=== PATIENT | male | born 1985 | race Caucasian/White ===

== ENCOUNTER 2022-11-27 09:01 | Emergency (ER) | payer BC, SELFPAY ==
[2022-11-27 09:09] VITALS: BP 149/100; PULSE 88; RESP 16; TEMP 36.3; O2SAT 100
--- NOTE | 2022-11-27 10:06 | ED.EXTPRO ---
HPI - Extremity Problem General Chief complaint: Extremity Problem,Nontraumatic Stated complaint: left wrist/thumb popping History of Present Illness HPI Narrative: Pt is a 37 y/o male, presents to with left wrist pain along the lateral aspect (radial side) for the past week, worse with movements, specifically when flexing the wrist or grasping with the left hand. He denies injuries but does endorse repetitive movements at work and home. He feels the area pops at times. He has iced the area without much relief. He denies any other associated symptoms, traumatic injuries or fevers. He has no hx of gout. He is right hand dominant. Related Data Home Medications Medication Instructions Recorded Confirmed amlodipine 5 mg tablet mg 11/27/22 atorvastatin 40 mg tablet mg 11/27/22 metformin 1,000 mg tablet mg 11/27/22 Allergies Allergy/AdvReac Type Severity Reaction Status Date / Time morphine Allergy Unknown SEIZURE Verified 01/29/19 09:18 Review of Systems Musculoskeletal: Comments: left wrist pain, refer to [facility] Past Medical History Medical History (Updated 11/27/22 @ 10:18 by NIECY Hurtado) Ankle fracture Anxiety Asthma Back pain Bronchitis Depression GERD (gastroesophageal reflux disease) GI bleed Hand fracture, right History of rectal polyps HTN (hypertension) IBS (irritable bowel syndrome) Kidney stones Pancreatitis Pneumonia Ulcerative colitis UTI (urinary tract infection) Vertebral fracture hairline thoracic vertebra fracture Surgical History Surgical History Hx of tonsillectomy Social History Social History Smoking status: Never smoker Gender identity (if verbalized by the patient): Male Exam Const: General: healthy appearing, no acute distress and alert Nutritional Appearance: well nourished and obese Orientation/consciousness: patient oriented x3 HENMT: Head: normal to inspection Ears: external ears normal and TM's normal bilaterally Face/Nose/Sinus: Normal external nose present Face and sinus: normal facial exam Teeth and gingiva: dentition normal Eyes: Conjunctivae: conjunctivae normal EOM: EOMs intact bilaterally Neck: Neck: normal visual inspection, no lymphadenopathy and no meningeal signs Resp: Effort & Inspection: normal respiratory effort Auscultation: clear to auscultation bilaterally Cardio: Rate: regular rate Rhythm: regular rhythm Skin: General skin exam: normal color Rashes: no rashes Neuro: General: patient oriented x3, moves all extremities, no meningeal signs, no focal motor deficits and CN's II-XI intact bilaterally Cranial nerves: Yes Nystagmus not present Speech: normal speech Gait exam (Neuro): Normal gait present Extrem: General: normal to inspection, no clubbing, cyanosis or edema and no pedal edema Other: pt is TTP over the left wrist, radial side. No erythema or swelling noted. Increased pain with Devon maneuver. No radicular symptoms. Distal PMS intct Course Course Emergency Course: cock up splint encouraged, we do not have available for supply however, [employer] [facility] should have them locally. Short steroid course, PCP FU if not improving to discuss hand referral. Pt is agreeale [facility] Level of Care: Express Care Visit ([id number]) Vital Signs Vital signs: Vital Signs Temperature 36.3 C L 11/27/22 09:09 Pulse Rate 88 11/27/22 09:09 Respiratory Rate 16 11/27/22 09:09 Blood Pressure 149/100 H 11/27/22 09:09 Pulse Oximetry 100 11/27/22 09:09 Oxygen Delivery Room Air 11/27/22 09:09 Temperature 36.3 C L 11/27/22 09:09 Pulse Rate 88 11/27/22 09:09 Respiratory Rate 16 11/27/22 09:09 Blood Pressure 149/100 H 11/27/22 09:09 Pulse Oximetry 100 11/27/22 09:09 Oxygen Delivery Room Air 11/27/22 09:09 MDM - Extremity (Nontraumatic) MDM Narrative M
== END 2022-11-27 10:24 | disposition home or self-care (01) ==
PROVIDERS: Emergency Provider Nurse Practitioner Family
DX: M65.9 Synovitis and tenosynovitis, unspecified (principal); J45.909 Unspecified asthma, uncomplicated; K21.9 Gastro-esophageal reflux disease without esophagitis; I10 Essential (primary) hypertension
CPT/HCPCS: 99203; G0463

== ENCOUNTER 2022-12-14 17:56 | Emergency (ER) | payer BC, SELFPAY ==
--- NOTE | ~2022-12-14 | XR_ITS ---
EXAMINATION: XR hand LT min 3V INDICATION: Left hand pain TECHNIQUE: Three views of the left hand are obtained. COMPARISON: 02/15/2007 FINDINGS: No fracture, dislocation, or subluxation. The bones, soft tissues, and joint spaces are nor mal. IMPRESSION: 1. No acute osseous abnormality. Reviewed, dictated and finalized at location F.
--- NOTE | 2022-12-14 17:58 | ED.UPPEXIN ---
HPI - Extremity Injury (Upper) General Chief Complaint: Extremity Injury, Upper Stated Complaint: left hand injury Time Seen by Provider: 12/14/22 17:58 Source: patient Mode of arrival: ambulatory Limitations: no limitations History of Present Illness HPI narrative: Oscar is a 37-year-old male patient presenting to the clinic today with complaints of left hand injury. He reports he fell when he slipped on the stairs this morning and re-injured his left hand. He was seen here 2 weeks ago and diagnosed with de Quervain tenosynovitis. He was given prescription for prednisone and a cock-up splint. He reports that prior to the injury he was having better movement and he is scheduled for a steroid shot next week. Today he states after the fall he has very limited mobility of the left thumb due to pain. He reports when he moves his thumb he has a sharp pain going up into his wrist. Related Data Home Medications Medication Instructions Recorded Confirmed amlodipine 5 mg tablet 5 mg PO DAILY 11/27/22 12/14/22 atorvastatin 40 mg tablet 40 mg PO DAILY 11/27/22 12/14/22 metformin 1,000 mg tablet 1,000 mg PO BID 11/27/22 12/14/22 Allergies Allergy/AdvReac Type Severity Reaction Status Date / Time morphine Allergy Unknown SEIZURE Verified 12/14/22 18:02 Review of Systems Review of Systems: Pertinent positives per HPI. Patient denies any fever, chills, rash, headache, visual changes, dizziness, cough, runny nose, sore throat, shortness of breath, chest pain, palpitations, nausea, vomiting, diarrhea, constipation, abdominal pain, or any urinary issues. [facility] Past Medical History Medical History (Updated 12/14/22 @ 18:24 by Bjorn Up APRN) Ankle fracture Anxiety Asthma Back pain Bronchitis Depression GERD (gastroesophageal reflux disease) GI bleed Hand fracture, right History of rectal polyps HTN (hypertension) IBS (irritable bowel syndrome) Kidney stones Pancreatitis Pneumonia Ulcerative colitis UTI (urinary tract infection) Vertebral fracture hairline thoracic vertebra fracture Surgical History Surgical History Hx of tonsillectomy Social History Social History Smoking status: Never smoker Gender identity (if verbalized by the patient): Male Comments At the time of my signature, I reviewed and agree with the nursing past medical, surgical, social, and family history. There is no relevant family history pertinent to the patient complaint. Exam Narrative: General: Well-developed, well nourished, in no apparent distress Head: Normocephalic, atraumatic. Cardio: Regular rate and rhythm, s1 and s2 normal, no murmur appreciated. Resp: Clear to auscultation bilaterally, no rhonchi, rales, wheezing or rubs. Musculoskeletal: No deformity, tender to palpation over the dorsal aspect of the thumb, unable to flex and extend thumb without pain, is able to move 2nd 3rd, 4th, and 5th fingers-grossly normal range of motion, muscle strength weaker in the left hand when compared to the right, peripheral pulse strong, no edema, no cyanosis, normal gait and station Course Course Emergency Course: Portions of this record may have been created with voice recognition software. Level of Care: Express Care Visit Vital Signs Vital signs: Vital signs reviewed MDM - Extremity Injury (Upper) MDM Narrative Medical decision making narrative: At the time of visit patient is resting on the exam table. X-ray left hand was performed and negative for any sign of fracture or malalignment of the left thumb. I suspect patient has a thumb strain/flare of his de Quervain tenosynovitis. Will send in prescription for naproxen as he is getting a steroid injection in 1 week. Supportive measures were discussed with the patient he voiced understanding discharge instructions agrees to treatment plan. Differ
[2022-12-14 18:05] VITALS: BP 150/95; PULSE 81; RESP 16; TEMP 36.4; O2SAT 100
== END 2022-12-14 18:30 | disposition home or self-care (01) ==
PROVIDERS: Emergency Provider Nurse Practitioner Family
DX: M65.4 Radial styloid tenosynovitis [de Quervain] (principal); S63.642A Sprain of metacarpophalangeal joint of left thumb, initial encounter; W10.9XXA Fall (on) (from) unspecified stairs and steps, initial encounter; J45.909 Unspecified asthma, uncomplicated; K21.9 Gastro-esophageal reflux disease without esophagitis; I10 Essential (primary) hypertension
CPT/HCPCS: 73130; 99213; G0463

== ENCOUNTER 2023-01-08 14:47 | Emergency (ER) | payer BC, SELFPAY ==
[2023-01-08 14:53] VITALS: BP 157/97; PULSE 88; RESP 16; TEMP 36.2; O2SAT 99
[2023-01-08 15:13] LABS: Glucose Point of Care 134 mg/dl (65-105)
--- NOTE | 2023-01-08 15:47 | ED.GENADULT ---
HPI - General Adult General Chief complaint: Nausea/Vomiting/Diarrhea Stated complaint: Nausea/Vomiting Source: patient Mode of arrival: ambulatory Limitations: no limitations History of Present Illness HPI narrative: Patient presents for evaluation of nausea, vomiting, abdominal pain. He has experience nausea for several weeks. He spoke with his primary provider and she gave him a prescription for Zofran. He had some improvement with his symptoms who was referred to GI and saw them last week. He has an endoscopy scheduled for later this month. Following his visit with GI started developing episodes of vomiting and loose stool. He has an underlying history of IBS but bowel pattern has changed from his baseline. Denies any fever, chills, urinary symptoms, blood or mucus in the stool. He is having approximately 5 bowel movements per day. Does not smoke or use marijuana. He cannot identify any aggravating or alleviating factors. He rates his pain as 5/10 severity, located in the right upper quadrant, lasting approximately 15 minutes in duration and described as ?sharp?. Related Data Home Medications Medication Instructions Recorded Confirmed amlodipine 5 mg tablet 5 mg PO DAILY 11/27/22 12/25/22 atorvastatin 40 mg tablet 40 mg PO DAILY 11/27/22 12/25/22 metformin 1,000 mg tablet 1,000 mg PO BID 11/27/22 12/25/22 Allergies Allergy/AdvReac Type Severity Reaction Status Date / Time morphine Allergy Unknown SEIZURE Verified 12/25/22 09:40 lisinopril AdvReac Unknown Cough Verified 12/25/22 09:40 Review of Systems Review of Systems: CONSTITUTIONAL: Denies fever, chills, or sweats. EYES: Denies visual changes, redness, or discharge. ENT: Denies rhinorrhea, congestion, sore throat, or otalgia. CARDIOVASCULAR: Denies chest pain, palpitations, or edema. RESPIRATORY: Denies cough or dyspnea. GASTROINTESTINAL: Reports abdominal pain, nausea, vomiting, loose stool GENITOURINARY: Denies dysuria or hematuria. SKIN: Denies rash or itching. MUSCULOSKELETAL: Denies back pain, joint pain, or myalgia. NEUROLOGIC: Denies headache, numbness, dizziness, or weakness. PSYCHIATRIC: Denies anxiety or depression. [facility] Past Medical History Medical History Ankle fracture Anxiety Asthma Back pain Bronchitis Depression Diabetes GERD (gastroesophageal reflux disease) GI bleed Hand fracture, right History of rectal polyps HTN (hypertension) IBS (irritable bowel syndrome) Kidney stones Pancreatitis Pneumonia Ulcerative colitis UTI (urinary tract infection) Vertebral fracture hairline thoracic vertebra fracture Surgical History Surgical History Hx of tonsillectomy Family History Family History Father Lung cancer Grandparent Carcinoma of colon Pancreatic cancer Sibling Testicular cancer Social History Social History Smoking status: Never smoker Alcohol intake: current Alcohol use details: socially Substance use: never Lack of Transportation: No Lack of Food: Never True Current Housing: I Have Housing Concerned About Future Housing: No Difficulty Paying Gas/Electric Bills: No Difficulty Paying for Meds: No Currently Unemployed: No Education: High School Diploma/GED Difficulty w/ Childcare or Family Care: No Living arrangements: with family Occupation/Education: occupation 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 HEAD: Normocephalic, atraumatic. EYES: PERRLA and EOMI. ENT: Nares clear, no rhinorrhea or epistaxis. Mucous membranes moist. Oropharynx without tonsillar hypertrophy exud
== END 2023-01-08 15:59 | disposition short-term general hospital (02) ==
PROVIDERS: Emergency Provider Nurse Practitioner
DX: R10.11 Right upper quadrant pain (principal); R11.2 Nausea with vomiting, unspecified; J45.909 Unspecified asthma, uncomplicated; E11.9 Type 2 diabetes mellitus without complications; K21.9 Gastro-esophageal reflux disease without esophagitis; Z79.84 Long term (current) use of oral hypoglycemic drugs
CPT/HCPCS: 82948; 99212; G0463

== ENCOUNTER 2023-04-24 13:18 | Outpatient (CLI) | payer BC, SELFPAY ==
--- NOTE | 2023-04-24 14:00 | NEURO_ITS ---
Impression: # Complains of numbness of fingers. # Right ulnar neuropathy around the elbow. # Normal needle/EMG. Nerve Conduction Studies Anti Sensory Summary Table Stim Site NR Peak (ms) P-T Amp (?V) Site1 Site2 Delta-P (ms) Dist (cm) Brenden (m/s) Right Median Anti Sensory (2-3nd Digit) Wrist 3.4 68.0 Wrist 2-3nd Digit 3.4 14.0 41 Wrist 3.7 58.4 Wrist 2-3nd Digit 3.4 14.0 41 Right Radial Anti Sensory (Base 1st Digit) Wrist 2.1 19.3 Wrist Base 1st Digit 2.1 0.0 Right Ulnar Anti Sensory (5th Digit) Wrist 2.6 20.4 Wrist 5th Digit 2.6 14.0 54 Motor Summary Table Stim Site NR Onset (ms) O-P Amp (mV) Site1 Site2 Delta-0 (ms) Dist (cm) Brenden (m/s) Right Median Motor (Abd Poll Brev) Wrist 3.4 3.2 Elbow Wrist 5.2 31.0 60 Elbow 8.6 2.6 Right Ulnar Motor (Abd Dig Minimi) Wrist 2.7 6.2 A Elbow Wrist 6.2 33.0 53 A Elbow 8.9 4.5 B Elbow Wrist 4.7 24.0 51 B Elbow 7.4 4.3 F Wave Studies NR F-Lat (ms) L-R F-Lat (ms) Right Median (Mrkrs) (Abd Poll Brev) 29.77 Right Ulnar (Mrkrs) (Abd Dig Min) 29.98 EMG Side Muscle Nerve Root Ins Act Fibs Amp Dur Recrt Comment Right 1stDorInt Ulnar C8-T1 Nml Nml Nml Nml Nml Right Ext Indicis Radial (Post Int) C7-8 Nml Nml Nml Nml Nml Right Ext Digitorum Radial (Post Int) C7-8 Nml Nml Nml Nml Nml Right BrachioRad Radial C5-6 Nml Nml Nml Nml Nml Right PronatorTeres Median C6-7 Nml Nml Nml Nml Nml Right Abd Poll Brev Median C8-T1 Nml Nml Nml Nml Nml Right ABD Dig Min Ulnar C8-T1 Nml Nml Nml Nml Nml MTDD
== END 2023-04-24 13:19 | disposition home or self-care (01) ==
PROVIDERS: Visit Provider Plastic Surgery
DX: G56.21 Lesion of ulnar nerve, right upper limb (principal)
CPT/HCPCS: 95886; 95909

== ENCOUNTER 2023-06-11 16:38 | Outpatient (CLI) | payer BC, SELFPAY ==
[2023-06-11 17:07] LABS: Anion Gap 8 mmol/L (8-16); Blood Urea Nitrogen 11 mg/dL (9-20); Calcium 9.5 mg/dL (8.4-10.2); Carbon Dioxide 27 mmol/L (22-30); Chloride 102 mmol/L (98-107); Estimated Glomerular Filt Rate > 60; Glucose 128 mg/dL (65-110); Potassium 3.6 mmol/L (3.4-5.0); Sodium 137 mmol/L (137-145)
== END 2023-06-11 16:39 | disposition home or self-care (01) ==
LOC: ANHLAB 16:40
PROVIDERS: Visit Provider Anesthesiology
DX: E11.9 Type 2 diabetes mellitus without complications (principal); Z01.818 Encounter for other preprocedural examination
CPT/HCPCS: 36415; 80048

== ENCOUNTER 2023-06-13 01:44 | Day surgery (SDC) | payer BC, SELFPAY ==
--- NOTE | 2023-06-10 13:18 | PC.NURSE ---
Addendum entered by Shae Curtis RN 06/10/23 13:23: PT INSTRUCTED NOT TO EAT OR DRINK ANYTHING AFTER 11PM, PER DR. BUI PRE OP ORDERS Original Note: Report to the Outpatient Waiting Room, entrance under the green pavilion located off [facility], at time 0600_ on date _06/13/23_. Planned Procedure Time: __729___. Time changes happen often and if your time is changed the preop area will call you the afternoon before. - You and your visitor will be asked to self-screen and do not enter if you have any COVID symptoms. - A mask is optional within the hospital at this time. Patients may have clear liquids (water, carbonated beverages, clear teas, apple juice) until 3 hours prior to surgery with a maximum of 20 ounces. - No food from midnight until time of surgery - Infants may have breast milk until 4 hours before surgery, formula 6 hours prior to surgery. - Children will be allowed to drink immediately following surgery. If applicable, please bring a bottle or sippy cup to assist with drinking. Juice, water, soda, and popsicles are readily available. For infants on formula, please bring formula the day of surgery. Pacifiers are allowed. Take the following medications with a SIP of water the morning of surgery: NONE DO NOT STOP ANY OF YOUR OTHER PRESCRIPTION MEDICATIONS PRIOR TO SURGERY ?EXCEPT THE FOLLOWING Medications to discontinue per physician NONE Date to take last dose Please no make-up, nail armenian, hairspray, perfume, deodorant, or body powder the day of surgery. No jewelry (including any body piercings) or valuables the day of surgery, leave them at home. Please take a shower or bath the night before, or the morning of, surgery with an antibacterial soap. Wear comfortable, loose fitting clothing. Children are encouraged to wear pajamas. - Jewelry must be removed prior to entering the operating room. Rings and piercings that are not removed may be cut off. - The hospital will not accept responsibility for valuables. - Please leave all valuables, including medications, at home the day of surgery. If you are going home after surgery, a licensed driver messenger must drive you home. - NO public transportation without another adult if you receive anesthesia. - We recommend that an adult stay with you for 24 hours following discharge. - We also recommend that you do not drive, make important decision, drink alcoholic beverages, or take any drugs that were not prescribed by your health care provider for at least 24 hours after your discharge time. For Pediatric surgeries, we recommend two adults accompany the child home. Follow any additional instructions given to you from your surgeon. If you or anyone in your household have experienced Covid symptoms in the past week, please notify your surgeon or the nurse liaison at the phone number below for possible testing. Telephone instructions given to __PATIENT__and asked if any additional questions and then verbalized understanding. Patient advised to call surgeon office or pre surgery nurse liaison [phone] if any additional questions.
[2023-06-10 13:39] VITALS: BMI 42.1
--- NOTE | 2023-06-12 11:15 | WPDANESEPPF ---
Anes - Initial Pre Proc Eval Procedure: Operation Date: 06/13/23 14:15 Proposed Procedures p Right Endoscopic Carpal Tunnel Release, Possible Open, Right Cubital Tunnel Release - Annabella Dahl MD Date/Time: 06/12/23 11:15 Surgeon: Annabella Dahl MD Pre Op Diagnosis: carpal tunnel syndrome right wrist, ulnar neuropat Patient Data Age: 37 Gender: M Height: 1.8 m Weight: 137 kg Allergies Allergy/AdvReac Type Severity Reaction Status Date / Time morphine Allergy Unknown SEIZURE Verified 06/10/23 13:06 lisinopril AdvReac Unknown Cough Verified 06/10/23 13:06 Home Medications Medication Instructions Recorded Confirmed Type amlodipine 5 mg tablet 5 mg PO HS 11/27/22 06/10/23 History atorvastatin 40 mg tablet 40 mg PO HS 11/27/22 06/10/23 History metformin 1,000 mg tablet 1,000 mg PO BID 11/27/22 06/10/23 History dicyclomine 10 mg capsule 10 mg PO BID 03/05/23 06/10/23 History pantoprazole 40 mg tablet,delayed 40 mg PO HS 03/05/23 06/10/23 History release amitriptyline 10 mg tablet 10 mg PO HS 06/10/23 06/10/23 History tramadol 50 mg tablet 50 mg PO Q6H PRN pain #12 tabs 06/13/23 Rx Patient hx anesthesia problems: none Family hx anesthesia problems: none Results Review: All pre-operative results and documents have been reviewed as part of the pre-operative evaluation. [facility] Past Medical History Medical History Ankle fracture Anxiety Asthma Back pain Bronchitis Depression Diabetes GERD (gastroesophageal reflux disease) GI bleed Hand fracture, right History of rectal polyps HTN (hypertension) IBS (irritable bowel syndrome) Kidney stones Pancreatitis Pneumonia Ulcerative colitis UTI (urinary tract infection) Vertebral fracture hairline thoracic vertebra fracture Surgical History Surgical History Hx of tonsillectomy Family History Family History Father Lung cancer Grandparent Carcinoma of colon Pancreatic cancer Sibling Testicular cancer Social History Social History Smoking status: Never smoker Alcohol intake: current Drinks per week: 1 Alcohol use details: socially Substance use: former Substance use type: marijuana Last use: 5 YRS Lack of Transportation: No Lack of Food: Never True Current Housing: I Have Housing Concerned About Future Housing: No Difficulty Paying Gas/Electric Bills: No Difficulty Paying for Meds: No Currently Unemployed: No Education: High School Diploma/GED Difficulty w/ Childcare or Family Care: No Living arrangements: with family Occupation/Education: occupation 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 Informed Consent: The patient's anesthetic plan and its attendant risks and benefits were discussed with the patient/family/POA. Questions were solicited and answers provided to the satisfaction of the patient/family/POA.
[2023-06-13] VITALS (8 sets, daily range): BP systolic 97–148; BP diastolic 25–98; PULSE 77–100; RESP 16–18; TEMP 36.5; O2SAT 98–100
--- NOTE | 2023-06-13 07:14 | W.PM.PROC2 ---
Procedure Note - Detailed Date of Procedure 06/13/23 Pre-op Diagnosis right carpal and cubital tunnel syndrome Post-op Diagnosis Same Procedure Performed right ectr and CuTR Surgeon Annabella Dahl MD Anesthesia MAC Description of Procedure INFORMED CONSENT: The patient was seen and examined and marked in the pre-op area.? The patient signed the consent form. PROCEDURE IN DETAIL:The patient taken back to OR on the stretcher in supine position. Time out performed with anesthesia, surgeon and staff agreeing on patient's name site and surgery to be performed SCDs were placed on the lower extremities and inflated. A tourniquet was placed on {right} upper extremity and antibiotics given IV After anesthesia administered sedation I injected {10}cc 1%lido with epi and 0.5% marcaine plain at the operative sites The?{right upper extremity}?was prepped and draped in sterile fashion the??{right upper extremity} was? exsanguinated with Esmarch bandage and tourniquet inflated to 250mmHg I made a transverse incision in the {right} volar distal wrist crease through skin and dermis with 15 blade scalpel.? Littler scissors spread down to antebrachial fascia noting patient had a palmaris brevis which was retracted radially. A small incision was made in antebrachial fascia allowing access to Carpal tunnel. I proceeded with sequential dilation staying in line with the ring finger and hugging the hook of the hamate.? I then used the synovial elevator to free any adhesions from the underside of the transverse carpal ligament. Next I was able to insert the Microaire endoscopic carpal tunnel device with direct visualization of the transverse fibers on the monitor and proceeded with complete segmental retrograde release of the ligament in its entirety.? I irrigated with normal saline and closed with 4-0 monocryl for dermis and subcuticular closure. I next proceeded with making a longitudinal incision between two heads for flexor carpi ulnaris at end of {right} cubital tunnel with 15 blade scalpel.? Littler scissors were used to spread down to FCU fascia.? An incision was made in FCU fascia and ulnar nerve identified exiting cubital tunnel.? I proceeded with complete retrograde release of the cubital tunnel including 7cm proximal for the intermuscular septum.? The nerve appeared healthy with visible vaso nervorum.? There was no subluxation on full elbow range of motion. ? I irrigated with normal saline and closure with 4-0 monocryl for dermis and subcuticular. A dressing of Dermabond, 4x4, noel, and a volar wrist and posterior elbow splint was applied for patient safety, security, and comfort and secured with an wilmer bandage after the tourniquet was let down noting the hand was warm and well perfused. The patient was then awaken from anesthesia and transferred to the recovery room in stable condition.? Complications - none EBL- 0cc Disposition - home in stable conditions [facility] Billing Surgery - Charge Forward: Surgery Billing ([id number] )
--- NOTE | 2023-06-13 07:15 | PM.HPGS ---
History of Present Illness History of Present Illness Chief complaint: carpal tunnel syndrome right wrist, ulnar neuropat Narrative: Patient seen and examined in pre-operative holding area. No interval change in medical history or symptoms. Patient recalls previous discussion of benefits and alternatives to procedure. Continues to desire to proceed with right endoscopic possible open carpal tunnel release and right cubital tunnel release. Reviewed procedure, post-op expectations and risks including but not limited to bleeding, infection, injury to tendon/nerve/vessel, decreased hand function, stiffness, RSD, no change or worsening of symptoms. I discussed the possible use of assistants and their participation in the case. Patient stated understanding and signed the consent form wishing to proceed. Review of Systems Review of Systems: All systems reviewed & are unremarkable except as noted in HPI and below PMFSH Past Medical History Medical History Ankle fracture Anxiety Asthma Back pain Bronchitis Depression Diabetes GERD (gastroesophageal reflux disease) GI bleed Hand fracture, right History of rectal polyps HTN (hypertension) IBS (irritable bowel syndrome) Kidney stones Pancreatitis Pneumonia Ulcerative colitis UTI (urinary tract infection) Vertebral fracture hairline thoracic vertebra fracture Surgical History Surgical History Hx of tonsillectomy Family History Family History Father Lung cancer Grandparent Carcinoma of colon Pancreatic cancer Sibling Testicular cancer Social History Social History Smoking status: Never smoker Alcohol intake: current Drinks per week: 1 Alcohol use details: socially Substance use: former Substance use type: marijuana Last use: 5 YRS Lack of Transportation: No Lack of Food: Never True Current Housing: I Have Housing Concerned About Future Housing: No Difficulty Paying Gas/Electric Bills: No Difficulty Paying for Meds: No Currently Unemployed: No Education: High School Diploma/GED Difficulty w/ Childcare or Family Care: No Living arrangements: with family Occupation/Education: occupation 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[employer] Gender identity (if verbalized by the patient): Male Meds Home Medications and Allergies Home Medications Medication Instructions Recorded Confirmed Type amlodipine 5 mg tablet 5 mg PO HS 11/27/22 06/10/23 History atorvastatin 40 mg tablet 40 mg PO HS 11/27/22 06/10/23 History metformin 1,000 mg tablet 1,000 mg PO BID 11/27/22 06/10/23 History dicyclomine 10 mg capsule 10 mg PO BID 03/05/23 06/10/23 History pantoprazole 40 mg tablet,delayed 40 mg PO HS 03/05/23 06/10/23 History release amitriptyline 10 mg tablet 10 mg PO HS 06/10/23 06/10/23 History Allergies Allergy/AdvReac Type Severity Reaction Status Date / Time morphine Allergy Unknown SEIZURE Verified 06/10/23 13:06 lisinopril AdvReac Unknown Cough Verified 06/10/23 13:06 Exam Narrative: unchanged Assessment and Plan Assessment and plan (1) Ulnar neuropathy at elbow of right upper extremity: Code(s): G56.21 - Lesion of ulnar nerve, right upper limb Status: Acute Assessment and Plan: cont as above (2) Carpal tunnel syndrome of right wrist: Code(s): G56.01 - Carpal tunnel syndrome, right upper limb Status: Acute
[2023-06-13 12:41] LABS: Glucose Point of Care 98 mg/dl (65-105)
[2023-06-13] MEDS: ceFAZolin 3 GM/D5W 100 ML 100 ML IVPB (14:19)
[2023-06-13] MEDS: LIDO 1%/EPINEPHRINE 1:100,000 50 ML VIAL 15 ML INFILTRATE (14:23)
[2023-06-13 15:12] LABS: Glucose Point of Care 100 mg/dl (65-105)
[2023-06-13] MEDS: ONDANSETRON INJ 4 MG/2 ML VIAL IV PUSH (15:47)
--- NOTE | 2023-06-13 15:49 | SUR.PHASEII ---
1535: patient hypotensive after transferring from the stretcher to the chair with PCT. Sade PETTY called to bedside. patient laid supine, IVF's wide opened and nbp returned to normal. Monitoring NBP q5min.
[2023-06-13] MEDS: LACTATED RINGERS 1,000 ML 30 ML IV CONT ×2 (16:00→16:14)
[2023-06-13 16:11] LABS: Glucose Point of Care 70 mg/dl (65-105)
[2023-06-13] MEDS: DEXTROSE 50% 25 GM/50 ML SYRINGE IV PUSH (16:15)
[2023-06-13 16:36] LABS: Glucose Point of Care 124 mg/dl (65-105)
[2023-06-13] MEDS: LACTATED RINGERS 1,000 ML 100 ML IV CONT (16:36)
--- NOTE | 2023-06-13 16:36 | SUR.PHASEII ---
1630: patient awake and alert, following commands and eating a snack. VSS.
--- NOTE | 2023-06-13 17:02 | SUR.PHASEII ---
1645: PATIENT READY TO DC. WAITING FOR RIDE.
[2023-06-13] MEDS: traMADol HCL (*CRX) 50 MG TABLET PO (17:06)
== END 2023-06-13 17:30 | disposition home or self-care (01) ==
PROVIDERS: Visit Provider Plastic Surgery
PROC: 01N54ZZ Release Median Nerve, Percutaneous Endoscopic Approach (ICD-10-PCS; CPT 29848; principal; 2023-06-13 14:15)
DX: G56.01 Carpal tunnel syndrome, right upper limb (principal); G56.21 Lesion of ulnar nerve, right upper limb; E11.9 Type 2 diabetes mellitus without complications; K21.9 Gastro-esophageal reflux disease without esophagitis; I10 Essential (primary) hypertension; F41.9 Anxiety disorder, unspecified; E66.01 Morbid (severe) obesity due to excess calories; Z68.41 Body mass index [BMI] 40.0-44.9, adult; Z79.84 Long term (current) use of oral hypoglycemic drugs
CPT/HCPCS: 29848; 64718; 82948; A9270; J0690; J1100; J2250; J2371; J2405; J2704; J3010; J7120

== ENCOUNTER 2023-09-17 14:51 | Emergency (ER) | payer BC, SELFPAY ==
[2023-09-17 15:08] VITALS: BP 135/96; PULSE 100; RESP 15; TEMP 37; O2SAT 100
--- NOTE | 2023-09-17 16:21 | ED.GENADULT ---
HPI - General Adult General Chief complaint: Nausea/Vomiting/Diarrhea Stated complaint: Vomiting/Fever Source: patient Mode of arrival: ambulatory Limitations: no limitations History of Present Illness HPI narrative: Patient presents for evaluation of nausea and vomiting since 0200 yesterday. Symptoms caused him to wake from sleep. He has associated fever. He has some epigastric discomfort. I saw him here in the past for GI related issues. I sent him to the hospital. He states he had a CT scan and it sounds like there was some abnormality with his gallbladder. He had an EGD and colonoscopy performed. He indicates he was supposed to have a nuclear medicine study done on his gallbladder but it was rescheduled. He has cut down on greasy food and drinks ETOH rarely. He has an underlying history of gastroparesis 2/2 DM. BS at home running in the 70-80's. He has experienced some left ear discomfort and tinnitus lately and was not sure whether these symptoms were associated with his presenting GI symptoms. In terms of sick contacts it sounds like his child had COVID but not in the recent past. Last bowel movement was this morning, solid and small in size. No blood or mucous in the stool. Related Data Home Medications Medication Instructions Recorded Confirmed amlodipine 5 mg tablet 5 mg PO HS 11/27/22 06/10/23 metformin 1,000 mg tablet 1,000 mg PO BID 11/27/22 06/10/23 pantoprazole 40 mg tablet,delayed 40 mg PO HS 03/05/23 06/10/23 release amitriptyline 10 mg tablet 10 mg PO HS 06/10/23 06/10/23 Allergies Allergy/AdvReac Type Severity Reaction Status Date / Time morphine Allergy Unknown SEIZURE Verified 09/16/23 13:48 lisinopril AdvReac Unknown Cough Verified 09/16/23 13:48 Review of Systems Review of Systems: CONSTITUTIONAL: Reports fever. Denies chills or sweats. EYES: Denies visual changes, redness, or discharge. ENT: Reports left sided ear pain and tinnitus. Denies rhinorrhea, congestion, sore throat CARDIOVASCULAR: Denies chest pain, palpitations, or edema. RESPIRATORY: Denies cough or dyspnea. GASTROINTESTINAL: Reports abdominal pain, nausea, vomiting. GENITOURINARY: Denies dysuria or hematuria. SKIN: Denies rash or itching. MUSCULOSKELETAL: Denies back pain, joint pain, or myalgia. NEUROLOGIC: Denies headache, numbness, dizziness, or weakness. PSYCHIATRIC: Denies anxiety or depression. [facility] Past Medical History Medical History Ankle fracture Anxiety Asthma Back pain Bronchitis Depression Diabetes GERD (gastroesophageal reflux disease) GI bleed Hand fracture, right History of rectal polyps HTN (hypertension) IBS (irritable bowel syndrome) Kidney stones Pancreatitis Pneumonia Ulcerative colitis UTI (urinary tract infection) Vertebral fracture hairline thoracic vertebra fracture Surgical History Surgical History Hx of tonsillectomy Family History Family History Father Lung cancer Grandparent Carcinoma of colon Pancreatic cancer Sibling Testicular cancer Social History Social History Smoking status: Never smoker Alcohol intake: current Drinks per week: 1 Alcohol use details: socially Substance use: former Substance use type: marijuana Last use: 5 YRS Lack of Transportation: No Lack of Food: Never True Current Housing: I Have Housing Concerned About Future Housing: No Difficulty Paying Gas/Electric Bills: No Difficulty Paying for Meds: No Currently Unemployed: No Education: High School Diploma/GED Difficulty w/ Childcare or Family Care: No Living arrangements: with family Occupation/Education: occupation 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
[2023-09-17] MEDS: ONDANSETRON HCL ODT 4 MG TABLET PO (16:26)
[2023-09-17 16:31] LABS: Glucose Point of Care 107 mg/dl (65-105)
== END 2023-09-17 16:57 | disposition short-term general hospital (02) ==
PROVIDERS: Emergency Provider Nurse Practitioner
DX: R10.13 Epigastric pain (principal); R10.11 Right upper quadrant pain; J45.909 Unspecified asthma, uncomplicated; E11.9 Type 2 diabetes mellitus without complications; Z79.84 Long term (current) use of oral hypoglycemic drugs; K21.9 Gastro-esophageal reflux disease without esophagitis; I10 Essential (primary) hypertension; F32.A Depression, unspecified
CPT/HCPCS: 82948; 87804; 99213; A9270; G0463

== ENCOUNTER 2023-10-09 12:30 | Outpatient (RCR) | payer BC, SELFPAY ==
--- NOTE | 2023-07-23 08:59 | OTOPEVAL1 ---
Assessment and note entered by Que Landaverde, OTR/Hayde, CHT Evaluation Information 07/23/23 Assessment Status Evaluation Diagnosis L de Quervain's, R carpal tunnel release, R cubital tunnel release Subjective Information (L) UE: Patient reports experiencing de Quervain's ~1 year. He presents today in an immobilizer that he's been wearing for about 3 weeks. He reports his pain is always 4/10 and can get up to 10/10 when he experiences the tendon popping . He has received 1 injection to the 1st dorsal compartment . He is right handed. 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 He has an 8 month old and is having difficulties with taking care of him, changing diapers, etc. He also plays video games in his spare time and reports pain and difficulties with this. (R) UE: s/p right carpal and cubital tunnel release 06/13/23, he is reporting residual pain, stiffness, and weakness on the right Reported Pain Level Pain Score 4/10 left wrist 6/10 right UE Assessment OT Clinical Summary Patient referred to OT with left de Quervain's tenosynovitis as well as post op right carpal tunnel release and right cubital tunnel release (~6 weeks ago). 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 He reports constant pain as well as overall residual weakness and stiffness. Skilled OT indicated for use of modalities, manual therapy, HEP instruction, and therapeutic exercise to facilitate optimal functional use of BUEs. Plan of Care Interventions Therapeutic Exercise,Manual Therapy,Therapeutic Activities,Hot Pack/Cold Pack,Ultrasound,Paraffin OT Services Indicated Yes Treatment Frequency and 2x/week for 9 visits Duration These treatments will address the objective and functional deficits as defined above. The patient will be advanced safely and appropriately in order for the patient to progress towards his/her prior level of function. Additional exercises will be introduced and as well as a comprehensive home exercise program upon discharge, if needed, ?to ensure carryover of functional gains achieved in the clinic. This treatment plan has been reviewed and agreement upon by the patient.
--- NOTE | 2023-07-23 09:00 | OPREHPOC ---
Outpatient Therapy Plan of Care This is a Multidisciplinary Plan of Care that may contain components documented by all disciplines (PT, OT, and ST.) OT Problem 1 OT Problem #1 Knowledge Deficit OT Goal 1 Goal 1. Patient to be independent with instructed materials. Target Visit 9 OT Problem 2 OT Problem #2 Pain OT Goal 1 Goal 1. Patient to report reduced pain in the left wrist to 2/10 or less at rest. 2. Patient to report reduced pain in the right UE to 2/10 or less at rest. 3. Patient to be independent with non-medication pain management techniques. Target Visit 9 OT Problem 3 OT Problem #3 Impaired Flexibility OT Goal 1 Goal Improve functional ROM of the right UE: 1. elbow flexion to 130 2. elbow extension to 0 3. wrist flexion 55 4. wrist extension to 55 5. thumb flexion to be able to touch the base of digit V Target Visit 9 OT Goal 2 Goal Improve functional ROM of the left UE: 1. wrist flexion 55 2. wrist extension to 55 3. thumb flexion to be able to touch the base of digit V Target Visit 9 OT Problem 4 OT Problem #4 Impaired Strength OT Goal 1 Goal 1. Patient to be able to complete bilateral corner cutter machine operator/ pinch strengthening with at least yellow theraputty x5 minutes. 2. Patient to improve gross wrist strength as measured by being able to complete wrist strengthening in all planes with 2 lb. free weight x10 without pain. Target Visit 9
--- NOTE | 2023-08-14 08:59 | PCOTNOTE ---
Patient called & cancelled scheduled appointment this date due to feeling unwell.
--- NOTE | 2023-08-30 11:28 | OTOPPROG ---
Assessment and note entered by Que Landaverde, OTR/Hayde, CHT OT Progress Update 08/30/23 Diagnosis L de Quervain's, R carpal tunnel release, R cubital tunnel release Subjective Information (L) UE: Patient continues to report a constant pain in the left wrist. He reports the pain has gotten worse. He reports his pain is always 6/10 and can get up to 10/10 when he experiences the tendon popping . He reports he has to modify how he uses this arm, continues to be unable to carry objects with this hand. Continues to have pain with lifting his son, unable to hold him with the left arm. He reports he is pushing through pain to get him changed. Does note his flexibility from the exercises has improved. (R) UE: s/p right carpal and cubital tunnel release 06/13/23. 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 He continues to report paresthesia in the ring and small finger. States the thumb, index, and middle finger paresthesia has improved. Overall reporting pain is getting better. At rest he reports 3-4/10 in the right hand. He also notes the lateral elbow is been giving him pains intermittently - symptoms consistent with lateral epicondylitis. At worst the right forearm/hand pain can get up to 7/10. Assessment OT Clinical Summary Patient referred to OT with left de Quervain's tenosynovitis, post op right carpal tunnel release , and right cubital tunnel release. He has attended 8 therapy sessions and verbalizes compliance with HEP. ROM of bilateral wrists has returned to normal limits. The right elbow continues to measure a -10 deg. extension lag and he continues have pain with elbow ROM on the right . Overall pain is less on the right UE, but he continues to report constant pain. He is reporting increased pain on the left wrist. We have been unable to progress the left wrist strengthening on the left due to pain. (R) mental measurements teacher strength measuring 31 lbs. (L) mental measurements teacher strength measuring 24 lbs. He also has developed signs and symptoms of lateral epicondylitis on the right. 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 Continued skilled OT indicated for use of modalities, manual therapy, HEP instruction, and therapeutic exercise to facilitate optimal functional use of BUEs. Plan of Care Interventions Therapeutic Exercise
--- NOTE | 2023-08-30 11:29 | OPREHPOC ---
Outpatient Therapy Plan of Care This is a Multidisciplinary Plan of Care that may contain components documented by all disciplines (PT, OT, and ST.) OT Problem 1 OT Problem #1 Knowledge Deficit OT Goal 1 Goal 1. Patient to be independent with instructed materials. --OT POC UPDATE 08/30/23--- 1. Met, continue as HEP is progressed Target Visit 16 OT Problem 2 OT Problem #2 Pain OT Goal 1 Goal 1. Patient to report reduced pain in the left wrist to 2/10 or less at rest. 2. Patient to report reduced pain in the right UE to 2/10 or less at rest. 3. Patient to be independent with non-medication pain management techniques. --OT POC UPDATE 08/30/23--- 1. Not met 2. Not met 3. Met Target Visit 16 OT Problem 3 OT Problem #3 Impaired Flexibility OT Goal 1 Goal Improve functional ROM of the right UE: 1. elbow flexion to 130 2. elbow extension to 0 3. wrist flexion 55 4. wrist extension to 55 5. thumb flexion to be able to touch the base of digit V --OT POC UPDATE 08/30/23--- 1. Met 2. Not met 3. Met 4. Met 5. Not met Target Visit 16 OT Goal 2 Goal Improve functional ROM of the left UE: 1. wrist flexion 55 2. wrist extension to 55 3. thumb flexion to be able to touch the base of digit V --OT POC UPDATE 08/30/23--- 1. Met 2. Met 3. Not met Target Visit 16 OT Problem 4 OT Problem #4 Impaired Strength O
--- NOTE | 2023-09-25 15:25 | PCOTNOTE ---
Patient called & cancelled scheduled appointment this date due to being sick.
== END 2023-10-21 23:59 | disposition home or self-care (01) ==
LOC: ANHOT 12:30
PROVIDERS: Visit Provider Physician Assistant Surgical
DX: M65.4 Radial styloid tenosynovitis [de Quervain] (principal)
CPT/HCPCS: 97018; 97035; 97110; 97140; 97166

== ENCOUNTER 2023-10-24 02:26 | Day surgery (SDC) | payer BC, SELFPAY ==
[2023-10-18 14:32] VITALS: BMI 43.0
--- NOTE | 2023-10-18 14:40 | PC.NURSE ---
Report to the Outpatient Waiting Room, entrance under the green pavilion located off [facility], at time 0600_ on date _10/24/23. Planned Procedure Time: __729__. Time changes happen often and if your time is changed the preop area will call you the afternoon before. - You and your visitor will be asked to self-screen and do not enter if you have any COVID symptoms. - A mask is optional within the hospital at this time. Patients may have clear liquids (water, carbonated beverages, clear teas, apple juice) until 8 hours prior to surgery with a maximum of 20 ounces. - No food from midnight until time of surgery - Infants may have breast milk until 4 hours before surgery, infant formula 6 hours prior to surgery. - Children will be allowed to drink immediately following surgery. If applicable, please bring a bottle or sippy cup to assist with drinking. Juice, water, soda, and popsicles are readily available. For infants on formula, please bring formula the day of surgery. Pacifiers are allowed. Take the following medications with a SIP of water the morning of surgery: INHALER IF NEEDED DO NOT STOP ANY OF YOUR OTHER PRESCRIPTION MEDICATIONS PRIOR TO SURGERY ?EXCEPT THE FOLLOWING Medications to discontinue per physician NONE Date to take last dose Please no make-up, nail hungarian, hairspray, perfume, deodorant, or body powder the day of surgery. No jewelry (including any body piercings) or valuables the day of surgery, leave them at home. Please take a shower or bath the night before, or the morning of, surgery with an antibacterial soap. Wear comfortable, loose fitting clothing. Children are encouraged to wear pajamas. - Jewelry must be removed prior to entering the operating room. Rings and piercings that are not removed may be cut off. - The hospital will not accept responsibility for valuables. - Please leave all valuables, including medications, at home the day of surgery. If you are going home after surgery, a licensed security patrol driver must drive you home. - NO public transportation without another adult if you receive anesthesia. - We recommend that an adult stay with you for 24 hours following discharge. - We also recommend that you do not drive, make important decision, drink alcoholic beverages, or take any drugs that were not prescribed by your health care provider for at least 24 hours after your discharge time. For Pediatric surgeries, we recommend two adults accompany the child home. Follow any additional instructions given to you from your surgeon. If you or anyone in your household have experienced Covid symptoms in the past week, please notify your surgeon or the nurse liaison at the phone number below for possible testing. Telephone instructions given to PATIENT__and asked if any additional questions and then verbalized understanding. Patient advised to call surgeon office or pre surgery nurse liaison [phone] if any additional questions.
[2023-10-24 06:17] VITALS: BP 152/88; PULSE 105; RESP 16; TEMP 36.3; O2SAT 99; BMI 44.4
--- NOTE | 2023-10-24 06:42 | WPDANESEPPF ---
Anes - Initial Pre Proc Eval Procedure: Operation Date: 10/24/23 07:30 Proposed Procedures p Left First Extensor Compartment Release - Annabella Dahl MD Date/Time: 10/24/23 06:42 Surgeon: Annabella Dahl MD Pre Op Diagnosis: radial styphoid tenolysis Patient Data Age: 38 Gender: M Height: 1.8 m Weight: 140 kg Allergies Allergy/AdvReac Type Severity Reaction Status Date / Time morphine Allergy Unknown SEIZURE Verified 10/18/23 14:29 lisinopril AdvReac Unknown Cough Verified 10/18/23 14:29 Home Medications Medication Instructions Recorded Confirmed Type amlodipine 5 mg tablet 10 mg PO HS 11/27/22 10/18/23 History metformin 1,000 mg tablet 1,000 mg PO BID 11/27/22 10/18/23 History pantoprazole 40 mg tablet,delayed 40 mg PO HS 03/05/23 10/18/23 History release amitriptyline 10 mg tablet 25 mg PO HS 06/10/23 10/18/23 History albuterol 90 mcg/actuation aerosol 90 mcg inhalation PRN PRN 10/18/23 10/18/23 History inhaler Shortness Of Breath loratadine 10 mg tablet (Claritin) 10 mg PO HS 10/18/23 10/18/23 History Patient hx anesthesia problems: none Family hx anesthesia problems: none Results Review: All pre-operative results and documents have been reviewed as part of the pre-operative evaluation. [facility] Past Medical History Medical History Ankle fracture Anxiety Asthma Back pain Bronchitis Depression Diabetes GERD (gastroesophageal reflux disease) GI bleed Hand fracture, right History of rectal polyps HTN (hypertension) IBS (irritable bowel syndrome) Kidney stones Pancreatitis Pneumonia Ulcerative colitis UTI (urinary tract infection) Vertebral fracture hairline thoracic vertebra fracture Surgical History Surgical History Hx of tonsillectomy Family History Family History Father Lung cancer Grandparent Carcinoma of colon Pancreatic cancer Sibling Testicular cancer Social History Social History Smoking packs per day: 0.5 Smoking cigarettes per day: 10.0 Years smoked: 2 Smoking pack-years: 1.00 Smoking status: Never smoker Tobacco type: cigarettes Additional smoking assessment comments: STOPPED SMOKING 2009 Alcohol intake: current Drinks per week: 2 Alcohol use details: socially Substance use: former Substance use type: marijuana Last use: 5 YRS Lack of Transportation: No Lack of Food: Never True Current Housing: I Have Housing Concerned About Future Housing: No Difficulty Paying Gas/Electric Bills: No Difficulty Paying for Meds: No Currently Unemployed: No Education: High School Diploma/GED Difficulty w/ Childcare or Family Care: No Living arrangements: with family Occupation/Education: occupation 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 ) Neurological: alert and oriented Last oral intake: >/= 8 hours ASA classification: III Emergent: no Anesthetic plan: proceed Anesthesia type and monitoring: general GIVS and standard monitoring Results Review: All pre-operative results and documents have been reviewed as part of the pre-operative evaluation. HTN, hyperlipidemia, DM, sleep study pending ordered but has not been done yet. Informed Consent: The patient's anesthetic plan and its attendant risks and benefits were discussed with the patient/family/POA. Questions were solicited and answers provided to the satisfac
[2023-10-24 06:51] LABS: Glucose Point of Care 107 mg/dl (65-105)
--- NOTE | 2023-10-24 06:56 | P.OP_ITS ---
Procedure Note - Detailed Date of Procedure 10/24/23 Pre-op Diagnosis left radial styphoid tenolysis Post-op Diagnosis Same Procedure Performed left first extensor compartment release Surgeon Annabella Dahl MD Stencil Machine Operator emeterio pereira pa-c Anesthesia MAC Description of Procedure INFORMED CONSENT: The patient was seen and examined and marked in the pre-op area.? The patient signed the consent form. PROCEDURE IN DETAIL:The patient taken back to OR on the stretcher in supine position. Time out performed with anesthesia, surgeon and staff agreeing on patient's name site and surgery to be performed SCDs were placed on the lower extremities and inflated. A tourniquet was placed on {left} upper extremity and antibiotics given IV After anesthesia administered sedation I injected {5}cc 1%lido with epi and 0.5% marcaine plain at the operative site The?{left upper extremity}?was prepped and draped in sterile fashion the??{left upper extremity} was? exsanguinated with Esmarch bandage and tourniquet inflated to 250mmHg I proceeded with making a lingitudianal incision over the left 1st extensor compartment through skin and dermis with a 15 blade scalpel. Littler scissors were used to spread through subq down to the sheath. I made an incision on the dorsal aspect of the sheath with 15 blade and identified the EPB tendon. I used littler scissors to spread above and below proximally and distally and completed release the sheath. I then noted the APL tendon was in a separate subsheath. I made an incision on the dorsal aspect of this subsheath and then used littler scissors to spread above and below proximally and distally and completed the transection entriely. The dorsal branch of the radial nerve was identified and protected throughout the procedure. Ragnell retractors were used to withdraw the tends for inspection. They were free of masses and synovitis and gliding smoothy withouth crepitus. I irrigated with normal saline and closed with 4-0 monocryl for dermis and subcuticular. A dressing of Dermabond, 4x4, noel, and an wilmer bandage was applied after the tourniquet was let down noting the hand was warm and well perfused. The patient was then awaken from anesthesia and transferred to the recovery room in stable condition.? Complications - none EBL- 0cc Disposition - home in stable conditions emeterio pereira pa-c was essential for positioning, retraction, closure and dressing placement [facility] Billing Surgery - Charge Forward: Surgery Billing (-AS for emeterio)
--- NOTE | 2023-10-24 06:56 | PM.HPGS ---
History of Present Illness History of Present Illness Chief complaint: radial styphoid tenolysis Narrative: Patient seen and examined in pre-operative holding area. No interval change in medical history or symptoms. Patient recalls previous discussion of benefits and alternatives to procedure. Continues to desire to proceed with left first extensor compartment release . Reviewed procedure, post-op expectations and risks including but not limited to bleeding, infection, injury to tendon/nerve/vessel, decreased hand function, stiffness, RSD, no change or worsening of symptoms. I discussed the possible use of assistants and their participation in the case. Patient stated understanding and signed the consent form wishing to proceed. Review of Systems Review of Systems: All systems reviewed & are unremarkable except as noted in HPI and below PMFSH Past Medical History Medical History Ankle fracture Anxiety Asthma Back pain Bronchitis Depression Diabetes GERD (gastroesophageal reflux disease) GI bleed Hand fracture, right History of rectal polyps HTN (hypertension) IBS (irritable bowel syndrome) Kidney stones Pancreatitis Pneumonia Ulcerative colitis UTI (urinary tract infection) Vertebral fracture hairline thoracic vertebra fracture Surgical History Surgical History Hx of tonsillectomy Family History Family History Father Lung cancer Grandparent Carcinoma of colon Pancreatic cancer Sibling Testicular cancer Social History Social History Smoking packs per day: 0.5 Smoking cigarettes per day: 10.0 Years smoked: 2 Smoking pack-years: 1.00 Smoking status: Never smoker Tobacco type: cigarettes Additional smoking assessment comments: STOPPED SMOKING 2009 Alcohol intake: current Drinks per week: 2 Alcohol use details: socially Substance use: former Substance use type: marijuana Last use: 5 YRS Lack of Transportation: No Lack of Food: Never True Current Housing: I Have Housing Concerned About Future Housing: No Difficulty Paying Gas/Electric Bills: No Difficulty Paying for Meds: No Currently Unemployed: No Education: High School Diploma/GED Difficulty w/ Childcare or Family Care: No Living arrangements: with family Occupation/Education: occupation 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[employer] Gender identity (if verbalized by the patient): Male Meds Home Medications and Allergies Home Medications Medication Instructions Recorded Confirmed Type amlodipine 5 mg tablet 10 mg PO HS 11/27/22 10/18/23 History metformin 1,000 mg tablet 1,000 mg PO BID 11/27/22 10/18/23 History pantoprazole 40 mg tablet,delayed 40 mg PO HS 03/05/23 10/18/23 History release amitriptyline 10 mg tablet 25 mg PO HS 06/10/23 10/18/23 History albuterol 90 mcg/actuation aerosol 90 mcg inhalation PRN PRN 10/18/23 10/18/23 History inhaler Shortness Of Breath loratadine 10 mg tablet (Claritin) 10 mg PO HS 10/18/23 10/18/23 History Allergies Allergy/AdvReac Type Severity Reaction Status Date / Time morphine Allergy Unknown SEIZURE Verified 10/18/23 14:29 lisinopril AdvReac Unknown Cough Verified 10/18/23 14:29 Exam Narrative: unchanged Assessment and Plan Assessment and plan (1) De Quervain's syndrome (tenosynovitis): Code(s): M65.4 - Radial styloid tenosynovitis [de Quervain] Status: Chronic Assessment and Plan: cont as above
[2023-10-24] MEDS: LACTATED RINGERS 1,000 ML 30 ML IV CONT (07:00)
[2023-10-24] MEDS: LIDO 1%/EPINEPHRINE 1:100,000 50 ML VIAL 10 ML INFILTRATE (07:17)
[2023-10-24] MEDS: ceFAZolin 3 GM/D5W 100 ML 100 ML IVPB (07:25)
[2023-10-24 07:54] VITALS: BP 123/80; PULSE 95; RESP 16; O2SAT 94
[2023-10-24 08:25] VITALS: BP 121/86; PULSE 87; O2SAT 96
[2023-10-24 08:28] LABS: Glucose Point of Care 125 mg/dl (65-105)
[2023-10-24] MEDS: traMADol HCL (*CRX) 50 MG TABLET PO (08:52)
[2023-10-24 08:55] VITALS: BP 135/94; PULSE 85
[2023-10-24 09:10] VITALS: BP 142/97; PULSE 98
== END 2023-10-24 09:31 | disposition home or self-care (01) ==
PROVIDERS: Visit Provider Plastic Surgery
PROC: (CPT 25000; principal; 2023-10-24 07:30)
DX: M65.4 Radial styloid tenosynovitis [de Quervain] (principal); I10 Essential (primary) hypertension; E11.9 Type 2 diabetes mellitus without complications; K21.9 Gastro-esophageal reflux disease without esophagitis; F41.9 Anxiety disorder, unspecified; F32.A Depression, unspecified; J45.909 Unspecified asthma, uncomplicated; Z79.84 Long term (current) use of oral hypoglycemic drugs; Z79.51 Long term (current) use of inhaled steroids; Z87.891 Personal history of nicotine dependence; E66.9 Obesity, unspecified; Z68.41 Body mass index [BMI] 40.0-44.9, adult
CPT/HCPCS: 25000; 82948; A9270; J0690; J1100; J2250; J2405; J2704; J3010; J7120

== ENCOUNTER 2023-12-06 08:45 | Emergency (ER) | payer BC, SELFPAY ==
[2023-12-06 08:51] VITALS: BP 155/88; PULSE 124; RESP 20; TEMP 36.2; O2SAT 100
--- NOTE | 2023-12-06 09:16 | ED.URI ---
HPI - URI/Sore Throat General Chief Complaint: Upper Respiratory Infection Stated Complaint: Headache/Cough Source: patient and RN notes reviewed Mode of arrival: ambulatory Limitations: no limitations History of Present Illness HPI Narrative: 38-year-old male presented for complaint headache, body aches, sinus pressure/congestion, cough, sore throat, fever/chills. onset yesterday. Endorses exposure to COVID. Denies sob, wheezing, n/v/d. Not taking anything for symptoms. MD elicited complaint: cough Related Data Home Medications Medication Instructions Recorded Confirmed amlodipine 5 mg tablet 10 mg PO HS 11/27/22 10/18/23 metformin 1,000 mg tablet 1,000 mg PO BID 11/27/22 10/18/23 pantoprazole 40 mg tablet,delayed 40 mg PO HS 03/05/23 10/18/23 release amitriptyline 10 mg tablet 25 mg PO HS 06/10/23 10/18/23 albuterol 90 mcg/actuation aerosol 90 mcg inhalation PRN PRN 10/18/23 10/18/23 inhaler Shortness Of Breath loratadine 10 mg tablet (Claritin) 10 mg PO HS 10/18/23 10/18/23 Allergies Allergy/AdvReac Type Severity Reaction Status Date / Time morphine Allergy Unknown SEIZURE Verified 12/03/23 08:35 lisinopril AdvReac Unknown Cough Verified 12/03/23 08:35 Review of Systems Review of Systems: CONSTITUTIONAL: Endorses malaise, chills, sweats, fever EYES: Denies visual changes, redness, or discharge ENT: Reports rhinorrhea, congestion, sore throat CARDIOVASCULAR: Denies chest pain, palpitations, edema RESPIRATORY: Reports cough, post nasal drainage. Denies dyspnea GASTROINTESTINAL: Denies abdominal pain, nausea, vomiting, diarrhea SKIN: Denies rash or itching MUSCULOSKELETAL: Endorses myalgia NEUROLOGIC: Endorses headache PMFSH Past Medical History Medical History Ankle fracture Anxiety Asthma Back pain Bronchitis Depression Diabetes GERD (gastroesophageal reflux disease) GI bleed Hand fracture, right History of rectal polyps HTN (hypertension) IBS (irritable bowel syndrome) Kidney stones Pancreatitis Pneumonia Ulcerative colitis UTI (urinary tract infection) Vertebral fracture hairline thoracic vertebra fracture Surgical History Surgical History Hx of tonsillectomy Family History Family History Father Lung cancer Grandparent Carcinoma of colon Pancreatic cancer Sibling Testicular cancer Social History Social History Social History: Caffeine-daily Smoking packs per day: 0.5 Smoking cigarettes per day: 10.0 Years smoked: 2 Smoking pack-years: 1.00 Smoking status: Never smoker Tobacco type: cigarettes Additional smoking assessment comments: STOPPED SMOKING 2009 Alcohol intake: current Drinks per week: 2 Alcohol use details: socially Substance use: former Substance use type: marijuana Last use: 5 YRS Do You Feel Safe in your Home?: Yes Lack of Transportation: No Lack of Food: Never True Current Housing: I Have Housing Concerned About Future Housing: No Difficulty Paying Gas/Electric Bills: No Difficulty Paying for Meds: No Currently Unemployed: No Education: High School Diploma/GED Difficulty w/ Childcare or Family Care: No Living arrangements: with family Occupation/Education: occupation 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 EYES: conjunctivae clear ENT: Mucous membranes moist. left TM pearly vasquez with dull light reflex ; no tragal tenderness. right outer ear chronic deformity, no auditory meatus. Oropharynx erythematous without lesions or exudate, no drooling, no hoarseness, no trismus, uvula midline. No tripod positioning, muffled v
[2023-12-06 09:20] LABS: EDINFLUASCREEN Negative; EDINFLUBSCREEN Negative
[2023-12-06 09:41] LABS: EDSTREPNEGPOS1 Negative
== END 2023-12-06 09:51 | disposition home or self-care (01) ==
PROVIDERS: Emergency Provider Nurse Practitioner Family
DX: J06.9 Acute upper respiratory infection, unspecified (principal); Z20.822 Contact with and (suspected) exposure to COVID-19; Z87.891 Personal history of nicotine dependence; J45.909 Unspecified asthma, uncomplicated; E11.9 Type 2 diabetes mellitus without complications; Z79.84 Long term (current) use of oral hypoglycemic drugs; K21.9 Gastro-esophageal reflux disease without esophagitis; I10 Essential (primary) hypertension; F32.A Depression, unspecified
CPT/HCPCS: 87081; 87426; 87804; 87880; 99213; G0463

== ENCOUNTER 2024-02-17 13:39 | Emergency (ER) | payer BC, SELFPAY ==
[2024-02-17 13:58] VITALS: BP 146/88; PULSE 115; RESP 20; TEMP 36.3; O2SAT 100
--- NOTE | 2024-02-17 14:49 | ED_ITS ---
HPI - URI/Sore Throat General Chief Complaint: Upper Respiratory Infection Stated Complaint: Sinus Pain Time Seen by Provider: 02/17/24 14:30 Source: patient, RN notes reviewed and old records reviewed Mode of arrival: ambulatory Limitations: no limitations History of Present Illness HPI Narrative: 38 year old male who presents to [facility] care with complaints of 3 day history of sore throat, runny nose,headache, fatigue and no fevers. Patient reports that girlfriend has bacterial sinus infection last week and he thinks he has it too. Patient reports he has been taking Claritin and Mucinex for his symptoms with no resolution. Patient reports that he needs work note since he had to call off ill today. MD elicited complaint: sore throat, rhinorrhea, nasal congestion and other (headache) Onset (ago): day(s) (3) Severity: mild Able to tolerate fluids by mouth: Yes Treatments prior to arrival: other (Claritin and Mucinex) Related Data Home Medications Medication Instructions Recorded Confirmed metformin 1,000 mg tablet 1,000 mg PO BID 11/27/22 02/17/24 pantoprazole 40 mg tablet,delayed 40 mg PO HS 03/05/23 02/17/24 release loratadine 10 mg tablet (Claritin) 10 mg PO HS 10/18/23 02/17/24 amitriptyline 25 mg tablet 25 mg PO HS 02/17/24 02/17/24 amlodipine 10 mg tablet 10 mg PO DAILY 02/17/24 02/17/24 cholecalciferol (vitamin D3) 25 25 mcg PO DAILY 02/17/24 02/17/24 mcg (1,000 unit) tablet dicyclomine 20 mg tablet 20 mg PO DIRECTED 02/17/24 02/17/24 polyethylene glycol 3350 17 17 g PO DIRECTED 02/17/24 02/17/24 gram/dose oral powder simethicone 125 mg chewable tablet mg 02/17/24 (Gas Relief Extra Strength) Allergies Allergy/AdvReac Type Severity Reaction Status Date / Time morphine Allergy Unknown SEIZURE Verified 12/03/23 08:35 lisinopril AdvReac Unknown Cough Verified 12/03/23 08:35 Review of Systems Review of Systems: CONSTITUTIONAL: Reports malaise, no chills, sweats, or fever. EYES: Denies visual changes, redness, or discharge. ENT: Reports rhinorrhea, congestion, sinus pain, no otalgia and positive for sore throat. CARDIOVASCULAR: Denies chest pain, palpitations, or edema. RESPIRATORY: Reports cough.? Denies dyspnea. GASTROINTESTINAL: Denies abdominal pain, nausea, vomiting, diarrhea SKIN: Denies rash or itching. MUSCULOSKELETAL: Denies myalgia. NEUROLOGIC: reports headache. All systems reviewed & are unremarkable except as noted in HPI and below PMFSH Past Medical History Medical History Ankle fracture Anxiety Asthma Back pain Bronchitis Depression Diabetes GERD (gastroesophageal reflux disease) GI bleed Hand fracture, right History of rectal polyps HTN (hypertension) IBS (irritable bowel syndrome) Kidney stones Pancreatitis Pneumonia Ulcerative colitis UTI (urinary tract infection) Vertebral fracture hairline thoracic vertebra fracture Surgical History Surgical History Hx of tonsillectomy Family History Family History Father Lung cancer Grandparent Carcinoma of colon Pancreatic cancer Sibling Testicular cancer Social History Social History (Updated 02/18/24 @ 13:15 by Trista Harry NP) Social History: Caffeine-daily Smoking packs per day: 0.5 Smoking cigarettes per day: 10.0 Years smoked: 2 Smoking pack-years: 1.00 Smoking status: Former smoker Tobacco type: cigarettes Additional smoking assessment comments: STOPPED SMOKING 2009 Alcohol intake: current Drinks per week: 2 Alcohol use details: socially Substance use: former Substance use type: marijuana Last use: 5 YRS Do You Feel Safe in your Home?: Yes Lack of Transportation: No Lack of Food: Never True Current Housing: I Have Housing Concerned About Future Housing: No Difficulty Paying Gas/Electric Bills: No Difficulty Paying for Meds: No Currently Unemployed: No Education: High School Diploma/GED Difficulty w/ Childcare or Family Care: No Living arrangements: with family Occupation/Education: occupation 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 There is no relevant family history pertinent to the presenting complaint Exam Narrative: GENERAL: Well-appearing, well-nourished, and in no acute distress. HEAD: Normocephalic EYES: PERRLA, conjunctivae clear ENT: Nares clear, turbinates edematous and erythematous, clear discharge, sinus pressure and headache discomfort. Mucous membranes moist. TM pearly vasquez with dull light reflex bilaterally; no tragal tenderness. Oropharynx erythematous without lesions. Tonsils not present and throat without exudate, no drooling, no hoarseness, no trismus, uvula midline. NECK: Supple. No lymphadenopathy CHEST: Clear to auscultation, breath sounds equal. No wheezing, rhonchi, rales, or stridor. No respiratory distress, speaks in full sentences.occasional dry cough SAO2 100% on room air HEART: Regular rate and rhythm. No murmur heard. SKIN: Warm, dry, no rash. NEURO: Alert and oriented x3. PSYCH: Normal mood and affect Course Course Emergency Course: Patient is aware of diagnosis, understands and agrees to treatment plan.? Anticipatory guidance given.? Patient agrees to follow-up as directed and is aware of reasons to seek care at the emergency department. Portions of this record may have been created with voice recognition software Level of Care: Express Care Visit Vital Signs Vital signs: Vital Signs Temperature 36.3 C L 02/17/24 13:58 Pulse Rate 115 H 02/17/24 13:58 Respiratory Rate 20 02/17/24 13:58 Blood Pressure 146/88 H 02/17/24 13:58 Pulse Oximetry 100 02/17/24 13:58 Oxygen Delivery Room Air 02/17/24 13:58 Temperature 36.3 C L 02/17/24 13:58 Pulse Rate 115 H 02/17/24 13:58 Respiratory Rate 20 02/17/24 13:58 Blood Pressure 146/88 H 02/17/24 13:58 Pulse Oximetry 100 02/17/24 13:58 Oxygen Delivery Room Air 02/17/24 13:58 Reviewed MDM - URI/Sore Throat MDM Narrative Medical decision making narrative: Differential diagnosis considered: Patricio virus, strep pharyngitis, allergic rhi nitis, upper respiratory tract infection, sinusitis, rhinosinusitis, nasopharyngitis. viral pharyngitis, otitis media, otitis externa, pneumonia, bronchitis, viral cough syndrome, viral syndrome, and influenza.? Exam findings show no acute concerns or changes; patient is non-toxic appearing and is in no distress.? Patient is appropriate for outpatient treatment and follow-up. Differential Diagnosis Differential diagnosis: Likely upper respiratory infection, sinusitis, viral infection, influenza, pharyngitis and other (COVID) Lab Data Attestation: I reviewed the patient's lab results. Lab results narrative: Influenza A negative Influenza B negative, strep screen negative, culture sent, COVID antigen negative Labs: Lab Results 02/17/24 Range/Units 14:06 POC Influenza A Ag Negative (Negative) POC Influenza B Ag Negative (Negative) POC SARS CoV-2 Ag Negative (Negative) POC Grp A Strep Screen Negative (Negative) Critical Care Time Critical Care Time Critical Care Time: No Discharge Plan Discharge Clinical Impression: URI, acute, Cough Patient Disposition: Home, Self-Care Condition: Stable Instructions: Upper Respiratory Infection (ED), Acute Cough (ED) Additional Instructions: Increase fluids especially juices and water [id number] cough and cold medicine of your choice for your symptoms Zyrtec Claritin or Rae daily include Coricidin brand decongestant Cough tablets as directed for cough--do not bite, chew or suck on--swallow whole Steroids as directed--take with food heat to the face 20-30 minutes 4-6 times a day for pain Salt water gargles, throat lozenges or throat sprays as desired If your symptoms persist, change or worsen significantly before you can contact your personal physician then please, without delay, go to the emergency de partment for further evaluation. Follow-up with PCP in 7-10 days or sooner if needed Follow up with PCP soon in regards to your blood pressure which is elevated above threshold for referral. Blood pressure above 120/80 may indicate pre- hypertension. 146/88 Your strep test today was negative. A throat culture will be sent to the laboratory for further testing. IF the test is positive, you will receive a phone call within 48 hours and an appropriate antibiotic will be initiated at that time. Prescriptions: New methylprednisolone [Medrol (Parmjit)] 4 mg tablets,dose pack See Rx Instructions .ROUTE .COMPLEX Qty: 21 0RF Rx Instructions: orally per package directions take with food and take all doses benzonatate 200 mg capsule 200 mg PO TID PRN (Reason: cough) Qty: 20 0RF No Action metformin 1,000 mg tablet 1,000 mg PO BID amitriptyline 25 mg tablet 25 mg PO HS amlodipine 10 mg tablet 10 mg PO DAILY cholecalciferol (vitamin D3) 25 mcg (1,000 unit) tablet 25 mcg PO DAILY simethicone [Gas Relief Extra Strength] 125 mg tablet,chewable polyethylene glycol 3350 17 gram/dose powder 17 g PO DIRECTED dicyclomine 20 mg tablet 20 mg PO DIRECTED pantoprazole 40 mg tablet,delayed release (DR/EC) 40 mg PO HS loratadine [Claritin] 10 mg Tablet 10 mg PO HS Follow-up/Referrals: PHYSICIAN NOT ON STAFF,NONSTAFF [Primary Care Provider] - Stand Alone Forms: Work/School Release IP Time of Disposition: 15:03 Quality [place] Coma Scale Eyes: Open Verbal: Oriented and Alert Motor: Follows Commands [place] Coma Total Score: 15
[2024-02-17 15:00] LABS: EDCOVIDSCREEN Negative (Negative); EDINFLUASCREEN Negative (Negative); EDINFLUBSCREEN Negative (Negative); EDSTREPNEGPOS1 Negative (Negative)
== END 2024-02-17 15:10 | disposition home or self-care (01) ==
PROVIDERS: Emergency Provider Registered Nurse
DX: J06.9 Acute upper respiratory infection, unspecified (principal); R05.9 Cough, unspecified; Z20.822 Contact with and (suspected) exposure to COVID-19; Z87.891 Personal history of nicotine dependence; E11.9 Type 2 diabetes mellitus without complications; Z79.84 Long term (current) use of oral hypoglycemic drugs; K21.9 Gastro-esophageal reflux disease without esophagitis; I10 Essential (primary) hypertension
CPT/HCPCS: 87081; 87426; 87804; 87880; 99213; G0463

== ENCOUNTER 2024-03-20 17:17 | Observation (INO) | payer BC, SELFPAY ==
[2024-03-20] VITALS (15 sets, daily range): BP systolic 123–158; BP diastolic 69–107; PULSE 93–110; RESP 16–20; TEMP 36.1–37; O2SAT 94–100; BMI 44.9
--- NOTE | ~2024-03-20 | US_ITS ---
EXAMINATION: US abdomen limited DATE: 03/20/2024 19:38 INDICATION: Right upper quadrant abdominal tenderness. Nausea. TECHNIQUE: Multiple grayscale and Doppler ultrasound images of the abdomen were obtained. COMPARISON: CT abdomen and pelvis 04/06/19 FINDINGS: The visualized portions of the head, body, and tail of the pancreas are normal. The liver i s normal without focal lesion. There is normal flow in main portal vein. The gallbladder is distended . No visible gallstones. No gallbladder wall thickening or sonographic Chakraborty sign. The common duct i s normal and measures 4 mm. IMPRESSION: 1. Gallbladder distention, which may be secondary to fasting. Reviewed, dictated and finalized at location A. HAULER
--- NOTE | ~2024-03-20 | CT_ITS ---
EXAMINATION: CT abdomen pelvis w con DATE: 03/20/2024 20:02 INDICATION: Right upper quadrant abdominal tenderness. Right flank tenderness. TECHNIQUE: Computed tomography (CT) of the abdomen and pelvis was performed with 100 mL Omnipaque 350 intravenous contrast. Automated exposure control and iterative reconstruction technique were employe d. The dose-length product was 1948.94 mGy-cm. COMPARISON: CT abdomen and pelvis 04/06/19 FINDINGS: The visualized portions of the lung bases demonstrate mild atelectasis. No pleural effusion . The heart size is normal. No pericardial effusion. The liver is normal. The gallbladder is distende d. There is a gallstone in the gallbladder neck. The spleen, pancreas, adrenal glands, and kidneys ar e normal. There are no dilated loops of bowel. The appendix is normal. The bladder is distended. Ther e are no pathologically enlarged lymph nodes. There is no free intraperitoneal fluid. There is mild t horacic and lumbar spondylosis. IMPRESSION: 1. Distended gallbladder with gallstone in the gallbladder neck, which may be a cause of biliary coli c. Reviewed, dictated and finalized at location A. FACULTY ASSISTANT IMPRESSION: 1. Distended gallbladder with gallstone in the gallbladder neck, which may be a cause of biliary colic.
[2024-03-20 18:55] LABS: Basophils Percent Auto 0.6 % (0.2-1.2); Eosinophils Absolute Auto 0.1 K/mm3 (0-0.3); Eosinophils Percent Auto 1.4 % (0-4.4); Hematocrit 42.1 % (42.0-52.0); Hemoglobin 13.7 g/dL (14.0-18.0); Immature Granulocyte Percent A 1.5 % (0-0.5); Lymphocytes Absolute Auto 2.09 K/mm3 (0.9-3.2); Lymphocytes Percent Auto 31.6 % (18.3-44.2); Mean Corpuscular HGB Conc 32.5 g/dl (32-36); Mean Corpuscular Hemoglobin 28.4 pg (26-34); Mean Corpuscular Volume 87.2 fl (80-100); Mean Platelet Volume 9.2 fl (7.4-10.4); Monocytes Absolute Auto 0.6 K/mm3 (0.1-0.6); Monocytes Percent Auto 8.5 % (2.6-8.5); Neutrophils Absolute Auto 3.7 K/mm3 (1.3-6.7); Neutrophils Percent Auto 56.4 % (45.5-73.1); Platelet Count Result 269 k/mm3 (150-375); Red Blood Count 4.83 M/mm3 (4.6-6.20); Red Cell Distribution Width 12.4 % (11.5-14.5); White Blood Count 6.6 K/mm3 (4.5-10.0)
[2024-03-20 19:11] LABS: Alanine Aminotransferase 46 U/L (6-50); Albumin Level 4.5 g/dL (3.5-5.1); Alkaline Phosphatase 64 U/L (38-126); Anion Gap 5 mmol/L (4-12); Aspartate Amino Transferase 39 U/L (17-59); Bilirubin,Total 0.5 mg/dL (0.2-1.3); Blood Urea Nitrogen 10 mg/dL (9-20); Calcium 9.3 mg/dL (8.4-10.2); Carbon Dioxide 30 mmol/L (22-30); Chloride 103 mmol/L (98-107); Estimated CRCL calculation 146 ml/min; Estimated Glomerular Filt Rate > 60; Glucose 99 mg/dL (65-110); Lipase 99 U/L (23-300); Potassium 3.9 mmol/L (3.4-5.0); Sodium 138 mmol/L (137-145)
--- NOTE | 2024-03-20 19:20 | ED_ITS ---
HPI - Abdominal Pain General Chief Complaint: Abdominal Pain Stated Complaint: abd pain radiates to back Time Seen by Provider: 03/20/24 18:53 Source: patient Mode of arrival: ambulatory Limitations: no limitations History of Present Illness HPI narrative: This is a 38-year-old male who presents to the ED for chief complaint of abdominal pain beginning last night around 2:00 a.m.. States he was seen in another facility and discharged home. Patient reports that he continued to have abdominal pain throughout the day. He notes that the pain did start after eating last night. States he has been dealing with this issue for the past several weeks to months. He is seeing GI for issues with IBS. He states that they were considering ordering a HIDA scan. Endorses nausea with 1 episode of vomiting/diarrhea. Denies fevers, chills, chest pain, shortness of breath, cough, urinary symptoms. Related Data Home Medications ?Medication ?Instructions ?Recorded ?Confirmed ?Last Taken ?Type metformin 1,000 mg tablet 1,000 mg PO BID 11/27/22 02/17/24 Unknown History pantoprazole 40 mg tablet,delayed 40 mg PO HS 03/05/23 02/17/24 Unknown History release loratadine 10 mg tablet (Claritin) 10 mg PO HS 10/18/23 02/17/24 Unknown History amitriptyline 25 mg tablet 25 mg PO HS 02/17/24 02/17/24 Unknown History amlodipine 10 mg tablet 10 mg PO DAILY 02/17/24 02/17/24 Unknown History cholecalciferol (vitamin D3) 25 25 mcg PO DAILY 02/17/24 02/17/24 Unknown History mcg (1,000 unit) tablet dicyclomine 20 mg tablet 20 mg PO DIRECTED 02/17/24 02/17/24 Unknown History polyethylene glycol 3350 17 17 g PO DIRECTED 02/17/24 02/17/24 Unknown History gram/dose oral powder simethicone 125 mg chewable tablet mg 02/17/24 Unknown History (Gas Relief Extra Strength) Allergies Allergy/AdvReac Type Severity Reaction Status Date / Time morphine Allergy Unknown SEIZURE Verified 03/20/24 20:52 lisinopril AdvReac Unknown Cough Verified 03/20/24 20:52 Review of Systems 2 Review of Systems: All systems as dictated in [facility]PI [facility] Past Medical History Medical History Ankle fracture Anxiety Asthma Back pain Bronchitis Depression Diabetes GERD (gastroesophageal reflux disease) GI bleed Hand fracture, right History of rectal polyps HTN (hypertension) IBS (irritable bowel syndrome) Kidney stones Pancreatitis Pneumonia Ulcerative colitis UTI (urinary tract infection) Vertebral fracture hairline thoracic vertebra fracture Surgical History Surgical History Hx of tonsillectomy Family History Family History Father Lung cancer Grandparent Carcinoma of colon Pancreatic cancer Sibling Testicular cancer Social History Social History (Updated 02/18/24 @ 13:15 by Trista Harry NP) Social History: Caffeine-daily Smoking packs per day: 0.5 Smoking cigarettes per day: 10.0 Years smoked: 2 Smoking pack-years: 1.00 Smoking status: Former smoker Tobacco type: cigarettes Additional smoking assessment comments: STOPPED SMOKING 2009 Alcohol intake: current Drinks per week: 1 Alcohol use details: socially Substance use: former Substance use type: marijuana Last use: 5 YRS Do You Feel Safe in your Home?: Yes Lack of Transportation: No Lack of Food: Never True Current Housing: I Have Housing Concerned About Future Housing: No Difficulty Paying Gas/Electric Bills: No Difficulty Paying for Meds: No Currently Unemployed: No Education: High School Diploma/GED Difficulty w/ Childcare or Family Care: No Living arrangements: with family Occupation/Education: occupation 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 HEAD: Normocephalic, atraumatic. EYES: PERRLA and EOMI. ENT: Nares clear, no rhinorrhea or epistaxis. Mucous membranes moist. Oropharynx without tonsillar hypertrophy exudate or other lesions. NECK: Supple. No adenopathy or masses. CHEST: No respiratory distress. Clear to auscultation. No wheezes rales or rhonchi HEART: Regular rate and rhythm. No murmur heard. Normal peripheral pulses. ABDOMEN: Focal right upper quadrant tenderness and epigastric tenderness. Chakraborty sign positive. Mild right flank tenderness. Soft, nondistended, normal active bowel sounds. MSK: Normal range of motion. No edema. SKIN: Warm, dry, no rash. NEURO: Alert and oriented x4. No focal deficits. PSYCH: Normal mood and affect. Course Reevaluation(s) Reevaluation #1: Re-evaluated the patient after 1 dose of 0.5 Dilaudid. He still having quite a bit of pain. We will repeat antiemetics and pain medications. Date: 03/20/24 Time: 20:35 Consultations Consultation #1: Discussed the case with Dr. Gleason (general surgeon): we discussed that if he continues to have significant pain despite 2nd round of Dilaudid we will admit him to the surgical service for acute cholecystitis. Date: 03/20/24 Time: 20:35 Vital Signs Vital signs: Vital Signs Temperature 98.6 F 03/20/24 17:19 Pulse Rate 110 H 03/20/24 17:19 Respiratory Rate 20 03/20/24 17:19 Blood Pressure 154/103 H 03/20/24 17:19 Pulse Oximetry 100 03/20/24 17:19 Oxygen Delivery Room Air 03/20/24 17:19 Temperature 97 F L 03/20/24 22:40 Pulse Rate 104 H 03/20/24 22:40 Respiratory Rate 18 03/20/24 22:40 Blood Pressure 151/103 H 03/20/24 22:40 Pulse Oximetry 100 03/20/24 22:40 Oxygen Delivery Room Air 03/20/24 17:19 MDM - Abdominal Pain MDM Narrative Medical decision making narrative: This is a 38-year-old male who presents to the ED for chief complaint of right upper quadrant and right flank pain over the past several weeks but worse today. Vitals are showing initial high blood pressure and tachycardia but otherwise normal. Exam remarkable for the above and he does have positive Chakraborty sign. Shows normal white count on the CBC. CMP unremarkable with no abnormal biliary labs. Patient is having urinary retention, felt to be secondary to acute pain and constipation. A Sparks catheter was placed and there is some blood on the urinalysis but otherwise it is unremarkable. Right upper quadrant ultrasound shows gallbladder distension but no other acute findings. CT abdomen pelvis with IV contrast: IMPRESSION: 1. Distended gallbladder with gallstone in the gallbladder neck, which may be a cause of biliary colic.. Patient is still having a lot of pain on multiple re-evaluations. Presentation consistent with acute cholecystitis versus biliary colic. He has received a couple of rounds of Dilaudid. I discussed this with the surgeon, Dr. Gleason will admit the patient for pain control and surgical evaluation. Zosyn started for potential acute cholecystitis. Patient is understanding and agreeable with plan for admission at this time. He will be admitted in stable condition. Differential Diagnosis Differential diagnosis: Likely acute appendicitis, calculus of kidney, constipation, diverticulitis, gastroenteritis, pancreatitis, small bowel obstruction and other (cholecystitis) Lab Data 03/20/24 18:49 03/20/24 18:49 Labs: Lab Results 03/20/24 Range/Units 18:49 WBC 6.6 (4.5-10.0) K/mm3 RBC 4.83 (4.6-6.20) M/mm3 Hgb 13.7 L (14.0-18.0) g/dL Hct 42.1 (42.0-52.0) % MCV 87.2 (80-100) fl MCH 28.4 (26-34) pg MCHC 32.5 (32-36) g/dl RDW 12.4 (11.5-14.5) % Plt Count 269 (150-375) k/mm3 MPV 9.2 (7.4-10.4) fl Immature Gran % (Auto) 1.5 H (0-0.5) % Neut % (Auto) 56.4 (45.5-73.1) % Lymph % (Auto) 31.6 (18.3-44.2) % [place] % (Auto) 8.5 (2.6-8.5) % Eos % (Auto) 1.4 (0-4.4) % Baso % (Auto) 0.6 (0.2-1.2) % Lymph # (Auto) 2.09 (0.9-3.2) K/mm3 [place] # (Auto) 0.6 (0.1-0.6) K/mm3 Eos # (Auto) 0.1 (0-0.3) K/mm3 Baso # (Auto) 0.0 (0.0-0.1) K/mm3 Abs Immat Gran (auto) 0.10 H (0.00-0.031) K/mm3 Absolute Neuts (auto) 3.7 (1.3-6.7) K/mm3 Absolute Nucleated RBC 0.000 (0.0-0.012) K/mm3 Nucleated RBC % 0.0 (0.0-0.2) % Sodium 138 (137-145) mmol/L Potassium 3.9 (3.4-5.0) mmol/L Chloride 103 (98-107) mmol/L Carbon Dioxide 30 (22-30) mmol/L Anion Gap 5 (4-12) mmol/L BUN 10 (9-20) mg/dL Creatinine 0.90 (0.7-1.3) mg/dL Estim Creat Clear Calc 146 ml/min Estimated GFR > 60 (59 - ) Glucose 99 (65-110) mg/dL Calcium 9.3 (8.4-10.2) mg/dL Total Bilirubin 0.5 (0.2-1.3) mg/dL AST 39 (17-59) U/L ALT 46 (6-50) U/L Alkaline Phosphatase 64 (38-126) U/L Total Protein 8.0 (6.3-8.2) g/dL Albumin 4.5 (3.5-5.1) g/dL Lipase 99 (23-300) U/L Imaging Data Radiologist's impression: ITS Impressions Abdomen Ultrasound 03/20/24 19:40 IMPRESSION: 1. Gallbladder distention, which may be secondary to fasting. Abdomen/Pelvis CT 03/20/24 20:08
[2024-03-20] MEDS: ONDANSETRON INJ 4 MG/2 ML VIAL IV PUSH ×2 (19:23→23:02)
[2024-03-20] MEDS: HYDROmorphone HCL INJ (*CRX) 1 MG/ML SYR 0.5 MG IV PUSH ×4 (19:23→23:01)
[2024-03-20] MEDS: SODIUM CHLORIDE 0.9% IV 1,000 ML 999 ML IV CONT ×2 (19:40→20:58)
--- NOTE | 2024-03-20 20:44 | PC.NURSE ---
per EDP no blood cultures
[2024-03-20] MEDS: PIPERACILLN/TAZ 3.375GM/NS50ML 3.375 GM/50 ML BAG IVPB (20:58)
[2024-03-20 22:13] LABS: Add Urine Microscopic? YES; Appearance Urine Clear (Clear); Bacteria Urine None Seen /hpf; Bilirubin Urine Negative (Negative); Blood Urine 2+ (Negative); Color Urine Yellow (Yellow); Glucose Urine UA Negative (Negative); Ketones Urine Negative (Negative); Leukocyte Esterase Ur Negative LEU/UL (Negative); Nitrate Urine Negative (Negative); Non Pathogenic Casts 0-2; Protein Urine Negative (Negative); RBC Urine 21-50 /hpf (0-2); Specific Grav Ur 1.034 (1.001-1.035); Squamous Epithelial Cell Urine None Seen /hpf (Few); Urobilinogen Urine 0.2 mg/dL (<2.0); WBC Urine 0-5 /hpf (0-3); pH Urine 6.5 (5.0-9.0)
[2024-03-20] MEDS: SODIUM CHLORIDE 0.9% IV 1,000 ML 125 ML IV CONT (23:01)
[2024-03-21] VITALS (12 sets, daily range): BP systolic 119–150; BP diastolic 77–111; PULSE 104–119; RESP 15–20; TEMP 35.7–37; O2SAT 91–98
[2024-03-21] MEDS: HYDROmorphone HCL INJ (*CRX) 1 MG/ML SYR IV PUSH ×3 (01:05→06:14)
--- NOTE | 2024-03-21 01:29 | PC.NURSE ---
PATIENT ARRIVED ON 3 MEDSURG AT 2300 ON 03/20/2024
[2024-03-21] MEDS: PIPERACILLN/TAZ 3.375GM/NS50ML 3.375 GM/50 ML BAG IVPB ×4 (03:17→19:55)
[2024-03-21] MEDS: ONDANSETRON INJ 4 MG/2 ML VIAL IV PUSH (06:14)
[2024-03-21] MEDS: SODIUM CHLORIDE 0.9% IV 1,000 ML 125 ML IV CONT (07:19)
--- NOTE | 2024-03-21 08:07 | WPDANESEPP ---
Anes - Eval Pre Procedure Date/Time: 03/21/24 08:07 Pre Op Diagnosis: cholecystitis Patient Data Age: 38 Gender: M Height: 1.8 m Weight: 146.2 kg Last Vital Signs Temp 36.2 C L 03/21/24 06:00 Pulse 104 H 03/21/24 06:00 Resp 18 03/21/24 06:00 BP 144/93 H 03/21/24 06:00 Pulse Ox 97 03/21/24 06:00 O2 Del Method Room Air 03/21/24 00:04 Allergies Allergy/AdvReac Type Severity Reaction Status Date / Time morphine Allergy Unknown SEIZURE Verified 03/20/24 23:47 lisinopril AdvReac Unknown Cough Verified 03/20/24 23:47 Home Medications ?Medication ?Instructions ?Recorded ?Confirmed ?Type metformin 1,000 mg tablet 500 mg PO BID 11/27/22 03/20/24 History pantoprazole 40 mg tablet,delayed 40 mg PO HS 03/05/23 03/20/24 History release loratadine 10 mg tablet (Claritin) 10 mg PO HS 10/18/23 03/20/24 History amitriptyline 25 mg tablet 25 mg PO HS 02/17/24 03/20/24 History amlodipine 10 mg tablet 10 mg PO HS 02/17/24 03/20/24 History cholecalciferol (vitamin D3) 25 25 mcg PO HS 02/17/24 03/20/24 History mcg (1,000 unit) tablet simethicone 125 mg chewable tablet 125 mg PO QID PRN abdominal 02/17/24 03/20/24 History (Gas Relief Extra Strength) distention albuterol sulfate 90 mcg/actuation 2 puff inhalation Q6H PRN 03/20/24 03/20/24 History aerosol inhaler shortness of breath or wheezing linaclotide 145 mcg capsule 145 mcg PO DAILY 03/20/24 03/20/24 History (Linzess) Laboratory Tests 03/20/24 03/20/24 18:49 22:01 WBC 6.6 K/mm3 (4.5-10.0) RBC 4.83 M/mm3 (4.6-6.20) Hgb 13.7 L g/dL (14.0-18.0) Hct 42.1 % (42.0-52.0) MCV 87.2 fl (80-100) MCH 28.4 pg (26-34) MCHC 32.5 g/dl (32-36) RDW 12.4 % (11.5-14.5) Plt Count 269 k/mm3 (150-375) MPV 9.2 fl (7.4-10.4) Immature Gran % (Auto) 1.5 H % (0-0.5) Neut % (Auto) 56.4 % (45.5-73.1) Lymph % (Auto) 31.6 % (18.3-44.2) [place] % (Auto) 8.5 % (2.6-8.5) Eos % (Auto) 1.4 % (0-4.4) Baso % (Auto) 0.6 % (0.2-1.2) Lymph # (Auto) 2.09 K/mm3 (0.9-3.2) [place] # (Auto) 0.6 K/mm3 (0.1-0.6) Eos # (Auto) 0.1 K/mm3 (0-0.3) Baso # (Auto) 0.0 K/mm3 (0.0-0.1) Abs Immat Gran (auto) 0.10 H K/mm3 (0.00-0.031) Absolute Neuts (auto) 3.7 K/mm3 (1.3-6.7) Absolute Nucleated RBC 0.000 K/mm3 (0.0-0.012) Nucleated RBC % 0.0 % (0.0-0.2) Sodium 138 mmol/L (137-145) Potassium 3.9 mmol/L (3.4-5.0) Chloride 103 mmol/L (98-107) Carbon Dioxide 30 mmol/L (22-30) Anion Gap 5 mmol/L (4-12) BUN 10 mg/dL (9-20) Creatinine 0.90 mg/dL (0.7-1.3) Estim Creat Clear Calc 146 ml/min Estimated GFR > 60 (59 - ) Glucose 99 mg/dL (65-110) Calcium 9.3 mg/dL (8.4-10.2) Total Bilirubin 0.5 mg/dL (0.2-1.3) AST 39 U/L (17-59) ALT 46 U/L (6-50) Alkaline Phosphatase 64 U/L (38-126) Total Protein 8.0 g/dL (6.3-8.2) Albumin 4.5 g/dL (3.5-5.1) Lipase 99 U/L (23-300) Urine Color Yellow (Yellow) Urine Appearance Clear (Clear) Urine pH 6.5 (5.0-9.0) Ur Specific [place] 1.034 (1.001-1.035) Urine Protein Negative mg/dL (Negative) Urine Glucose (UA) Negative mg/dL (Negative) Urine Ketones Negative mg/dL (Negative) Ur Blood (Man) 2+ H (Negative) Urine Nitrate Negative (Negative) Urine Bilirubin Negative (Negative) Urine Urobilinogen 0.2 mg/dL (<2.0) Leukocyte Esterase Rfl Negative [place]/UL (Negative) Urine RBC 21-50 H /hpf (0-2) Urine WBC 0-5 /hpf (0-3) Ur Squamous Epith Cells None seen /hpf (Few) Urine Bacteria None seen /hpf Urine Casts 0-2 Patient hx anesthesia problems: none Family hx anesthesia problems: none Results Review: All pre-operative results and documents have been reviewed as part of the pre-operative evaluation. [facility] Past Medical History Medical History Diabetes Anxiety Depression Back pain Ankle fracture Hand fracture, right Vertebral fracture hairline thoracic vertebra fracture UTI (urinary tract infection) Kidney stones GI bleed GERD (gastroesophageal reflux disease) IBS (irritable bowel syndrome) History of rectal polyps Pancreatitis Ulcerative colitis Pneumonia Bronchitis Asthma HTN (hypertension) Surgical History Surgical History Hx of tonsillectomy Family History Family History Father Lung cancer Grandparent Carcinoma of colon Pancreatic cancer Sibling Testicular cancer Social History Social History Social History: Caffeine-daily Smoking packs per day: 0.5 Smoking cigarettes per day: 10.0 Years smoked: 2 Smoking pack-years: 1.00 Smoking status: Never smoker Tobacco type: cigarettes Additional smoking assessment comments: STOPPED SMOKING 2009 Alcohol intake: current Drinks per week: 1 Alcohol use details: socially Substance use: former Substance use type: marijuana Last use: 5 YRS Do You Feel Safe in your Home?: Yes Lack of Transportation: No Lack of Food: Never True Current Housing: I Have Housing Concerned About Future Housing: No Difficulty Paying Gas/Electric Bills: No Difficulty Paying for Meds: No Currently Unemployed: No Education: High School Diploma/GED Difficulty w/ Childcare or Family Care: No Living arrangements: with family Occupation/Education: occupation 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
--- NOTE | 2024-03-21 08:12 | P.HP_ITS ---
H&P: HPI History of Present Illness Date/Time: 03/21/24 08:12 Chief Complaint: RUQ pain Narrative: This is a 38-year-old man who presented to the emergency department overnight with right upper quadrant abdominal pain. His pain has been intermittent for several months, but evening he began experiencing constant pain that was not improving. He went to an outside ED and was discharged home. His pain continued to progress therefore he presented to [facility]. his white blood count and liver enzymes were normal. CT showed evidence of acute cholecystitis with a stone in the neck of the gallbladder. He was still having persistent pain. He was admitted for further treatment. Review of Systems Review of Systems: All systems reviewed & are unremarkable except as noted in HPI and below Eyes: Eyes: Denies change in vision ENT: Denies hearing loss, Denies neck pain and Denies sore throat Cardiovascular: Cardiovascular: Denies chest pain and Denies dyspnea Respiratory: Respiratory: Denies cough, Denies dyspnea and Denies wheezing Genitourinary: Genitourinary: Denies hematuria and Denies dysuria Musculoskeletal: Musculoskeletal: Denies arthralgias, Denies joint swelling and Denies neck pain Allergic/Immunologic: Allergic/Immunologic: Denies wheezing FOR[facility]LY [facility], [facility]ER [facility] Past Medical History Medical History (Updated 03/21/24 @ 08:17 by Corby Gleason DO) Diabetes Anxiety Depression Back pain Ankle fracture Hand fracture, right Vertebral fracture hairline thoracic vertebra fracture UTI (urinary tract infection) Kidney stones GI bleed GERD (gastroesophageal reflux disease) IBS (irritable bowel syndrome) History of rectal polyps Pancreatitis Ulcerative colitis Pneumonia Bronchitis Asthma HTN (hypertension) Surgical History Surgical History Hx of tonsillectomy Family History Family History Father Lung cancer Grandparent Carcinoma of colon Pancreatic cancer Sibling Testicular cancer Social History Social History Social History: Caffeine-daily Smoking packs per day: 0.5 Smoking cigarettes per day: 10.0 Years smoked: 2 Smoking pack-years: 1.00 Smoking status: Never smoker Tobacco type: cigarettes Additional smoking assessment comments: STOPPED SMOKING 2009 Alcohol intake: current Drinks per week: 1 Alcohol use details: socially Substance use: former Substance use type: marijuana Last use: 5 YRS Do You Feel Safe in your Home?: Yes Lack of Transportation: No Lack of Food: Never True Current Housing: I Have Housing Concerned About Future Housing: No Difficulty Paying Gas/Electric Bills: No Difficulty Paying for Meds: No Currently Unemployed: No Education: High School Diploma/GED Difficulty w/ Childcare or Family Care: No Living arrangements: with family Occupation/Education: occupation 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[employer] Gender identity (if verbalized by the patient): Male Spiritual care concerns: No Meds Home Medications and Allergies Home Medications ?Medication ?Instructions ?Recorded ?Confirmed ?Type metformin 1,000 mg tablet 500 mg PO BID 11/27/22 03/20/24 History pantoprazole 40 mg tablet,delayed 40 mg PO HS 03/05/23 03/20/24 History release loratadine 10 mg tablet (Claritin) 10 mg PO HS 10/18/23 03/20/24 History amitriptyline 25 mg tablet 25 mg PO HS 02/17/24 03/20/24 History amlodipine 10 mg tablet 10 mg PO HS 02/17/24 03/20/24 History cholecalciferol (vitamin D3) 25 25 mcg PO HS 02/17/24 03/20/24 History mcg (1,000 unit) tablet simethicone 125 mg chewable tablet 125 mg PO QID PRN abdominal 02/17/24 03/20/24 History (Gas Relief Extra Strength) distention albuterol sulfate 90 mcg/actuation 2 puff inhalation Q6H PRN 03/20/24 03/20/24 History aerosol inhaler shortness of breath or wheezing linaclotide 145 mcg capsule 145 mcg PO DAILY 03/20/24 03/20/24 History (Linzess) Allergies Allergy/AdvReac Type Severity Reaction Status Date / Time morphine Allergy Unknown SEIZURE Verified 03/20/24 23:47 lisinopril AdvReac Unknown Cough Verified 03/20/24 23:47 Vital Signs Vital Signs - 24 hr 03/20/24 17:19 03/20/24 18:02 03/20/24 19:17 Temperature 98.6 F Pulse Rate 110 H Respiratory Rate 20 Blood Pressure 154/103 H 123/69 145/103 H Pulse Oximetry 100 94 100 Oxygen Delivery Room Air 03/20/24 19:32 03/20/24 19:47 03/20/24 20:11 Temperature Pulse Rate Respiratory Rate Blood Pressure 139/91 H 132/95 H 131/95 H Pulse Oximetry 95 94 96 Oxygen Delivery 03/20/24 20:17 03/20/24 20:47 03/20/24 21:00 Temperature Pulse Rate Respiratory Rate Blood Pressure 130/103 H 158/94 H Pulse Oximetry 98 98 98 Oxygen Delivery 03/20/24 21:02 03/20/24 21:15 03/20/24 21:17 Temperature Pulse Rate Respiratory Rate Blood Pressure 141/92 H 144/107 H Pulse Oximetry 95 96 94 Oxygen Delivery 03/20/24 21:31 03/20/24 22:30 03/20/24 22:40 Temperature 97 F L Pulse Rate 93 104 H Respiratory Rate 16 18 Blood Pressure 140/93 H 151/103 H Pulse Oximetry 97 97 100 Oxygen Delivery 03/21/24 00:04 03/21/24 06:00 Temperature 97.2 F L Pulse Rate 104 H Respiratory Rate 18 Blood Pressure 144/93 H Pulse Oximetry 97 Oxygen Delivery Room Air Exam Const: General: alert; No acute distress Orientation/consciousness: patient oriented x3 Limitations: no limitations HENMT: Head: normocephalic and atraumatic Ears: hearing grossly normal bilaterally Face/Nose/Sinus: Normal external nose present and Normal nares present Mouth: Yes Normal oral and palatal mucosa present and Yes moist mucous membranes Eyes: General: appearance normal, both eyes and all related structures Conjunctivae: conjunctivae normal Sclera: sclerae normal Pupils: Equal, round and reactive pupils present EOM: EOMs intact bilaterally Neck: Neck: normal visual inspection, full ROM, no lymphadenopathy, supple and no JVD Lymphatic: no lymphadenopathy noted Chest: Chest palpation & inspection: normal inspection of the chest Resp: Effort & Inspection: normal respiratory effort and able to speak in complete sentences Auscultation: clear to auscultation bilaterally Percussion: percussion normal Cardio: Jugular venous distension: no JVD Rate: regular rate Rhythm: regular rhythm Heart sounds: S1 normal heart sound present and S2 normal heart sound present Peripheral pulses: Peripheral pulses 2+ throughout GI: Inspection: normal to inspection GI Palp: Yes Soft to palpation and Yes Tenderness to palpation present (GI) (Right upper quadrant) Auscultation: normal bowel sounds : General: Yes no CVA tenderness Back/Spine/Pelvis: Back: no CVA tenderness Skin: General skin exam: normal color and dry skin Neuro: General: patient oriented x3, gait normal, moves all extremities, no focal motor deficits and CN's II-XI intact bilaterally Cranial nerves: Yes Equal, round and reactive pupils present Speech: normal speech Extrem: General: normal to inspection and capillary refill normal H&P: Results Labs Labs: Short CBC 03/20/24 Range/Units 18:49 WBC 6.6 (4.5-10.0) K/mm3 Hgb 13.7 L (14.0-18.0) g/dL Hct 42.1 (42.0-52.0) % Plt Count 269 (150-375) k/mm3 BMP 03/20/24 18:49 Sodium 138 Potassium 3.9 Chloride 103 Carbon Dioxide 30 BUN 10 Creatinine 0.90 Glucose 99 Calcium 9.3 Liver Function 03/20/24 Range/Units 18:49 Total Bilirubin 0.5 (0.2-1.3) mg/dL AST 39 (17-59) U/L ALT 46 (6-50) U/L Alkaline Phosphatase 64 (38-126) U/L Albumin 4.5 (3.5-5.1) g/dL Urine 03/20/24 Range/Units 22:01 Urine Color Yellow (Yellow) Urine Appearance Clear (Clear) Urine pH 6.5 (5.0-9.0) Ur Specific [place] 1.034 (1.001-1.035) Urine Protein Negative (Negative) mg/dL Urine Glucose (UA) Negative (Negative) mg/dL Imaging CT scan - abdomen: Radiologist's impression: ITS Impressions Abdomen Ultrasound 03/20/24 19:40 IMPRESSION: 1. Gallbladder distention, which may be secondary to fasting. Abdomen/Pelvis CT 03/20/24 20:08 IMPRESSION: 1. Distended gallbladder with gallstone in the gallbladder neck, which may be a cause of biliary colic. Assessment and Plan Assessment and plan (1) Acute calculous cholecystitis: Code(s): K80.00 - Calculus of gallbladder with acute cholecystitis without obstruction Status: Acute Assessment and Plan: * I have reviewed the CT and discussed the findings with the patient. He has evidence of acute calculous cholecystitis. He still continues to have pain this will not likely improve with bowel rest antibiotics. I recommended proceeding with laparoscopic cholecystectomy, possible open. I discussed the procedure, risks, benefits, and alternatives. Questions were answered. (2) HTN (hypertension): Qualifiers: Hypertension type: primary hypertension Qualified Code(s): I10 - Essential (primary) hypertension Code(s): I10 - Essential (primary) hypertension Status: Acute (3) Diabetes: Qualifiers: Diabetes mellitus type: type 2 Diabetes mellitus senior care insulin use: without senior care use Diabetes mellitus complication status: without complication Qualified Code(s): E11.9 - Type 2 diabetes mellitus without complications Code(s): E11.9 - Type 2 diabetes mellitus without complications Status: Acute (4) IBS (irritable bowel syndrome): Code(s): K58.9 - Irritable bowel syndrome, unspecified Status: Acute (5) BMI 45.0-49.9, adult: Code(s): Z68.42 - Body mass index [BMI] 45.0-49.9, adult Status: Acute
--- NOTE | 2024-03-21 08:18 | WPDHPUPDATE1 ---
History and Physical Update Update Date/Time: 03/21/24 08:18 History and Physical has been reviewed, including an updated exam of the patient. There are NO changes in the patient's condition. Risks, benefits, and alternatives have been discussed and questions answered. Patient agrees to proceed with procedure.
[2024-03-21 09:10] LABS: Glucose Point of Care 120 mg/dl (65-105)
[2024-03-21] MEDS: ceFAZolin 3 GM/D5W 100 ML 100 ML IVPB (09:15)
--- NOTE | 2024-03-21 09:22 | WPDANESEPPF ---
Anes - Initial Pre Proc Eval Procedure: Operation Date: 03/21/24 09:30 Proposed Procedures p Laparoscopic Cholecystectomy - Corby Gleason DO Date/Time: 03/21/24 09:22 Surgeon: Corby Gleason DO Pre Op Diagnosis: cholecystitis Patient Data Age: 38 Gender: M Height: 1.8 m Weight: 146.2 kg Last Vital Signs Temp 36.2 C L 03/21/24 06:00 Pulse 104 H 03/21/24 06:00 Resp 18 03/21/24 06:00 BP 144/93 H 03/21/24 06:00 Pulse Ox 97 03/21/24 06:00 O2 Del Method Room Air 03/21/24 00:04 Allergies Allergy/AdvReac Type Severity Reaction Status Date / Time morphine Allergy Unknown SEIZURE Verified 03/20/24 23:47 lisinopril AdvReac Unknown Cough Verified 03/20/24 23:47 Home Medications ?Medication ?Instructions ?Recorded ?Confirmed ?Type metformin 1,000 mg tablet 500 mg PO BID 11/27/22 03/20/24 History pantoprazole 40 mg tablet,delayed 40 mg PO HS 03/05/23 03/20/24 History release loratadine 10 mg tablet (Claritin) 10 mg PO HS 10/18/23 03/20/24 History amitriptyline 25 mg tablet 25 mg PO HS 02/17/24 03/20/24 History amlodipine 10 mg tablet 10 mg PO HS 02/17/24 03/20/24 History cholecalciferol (vitamin D3) 25 25 mcg PO HS 02/17/24 03/20/24 History mcg (1,000 unit) tablet simethicone 125 mg chewable tablet 125 mg PO QID PRN abdominal 02/17/24 03/20/24 History (Gas Relief Extra Strength) distention albuterol sulfate 90 mcg/actuation 2 puff inhalation Q6H PRN 03/20/24 03/20/24 History aerosol inhaler shortness of breath or wheezing linaclotide 145 mcg capsule 145 mcg PO DAILY 03/20/24 03/20/24 History (Linzess) Laboratory Tests 03/20/24 03/20/24 03/21/24 18:49 22:01 09:07 WBC 6.6 K/mm3 (4.5-10.0) RBC 4.83 M/mm3 (4.6-6.20) Hgb 13.7 L g/dL (14.0-18.0) Hct 42.1 % (42.0-52.0) MCV 87.2 fl (80-100) MCH 28.4 pg (26-34) MCHC 32.5 g/dl (32-36) RDW 12.4 % (11.5-14.5) Plt Count 269 k/mm3 (150-375) MPV 9.2 fl (7.4-10.4) Immature Gran % (Auto) 1.5 H % (0-0.5) Neut % (Auto) 56.4 % (45.5-73.1) Lymph % (Auto) 31.6 % (18.3-44.2) [place] % (Auto) 8.5 % (2.6-8.5) Eos % (Auto) 1.4 % (0-4.4) Baso % (Auto) 0.6 % (0.2-1.2) Lymph # (Auto) 2.09 K/mm3 (0.9-3.2) [place] # (Auto) 0.6 K/mm3 (0.1-0.6) Eos # (Auto) 0.1 K/mm3 (0-0.3) Baso # (Auto) 0.0 K/mm3 (0.0-0.1) Abs Immat Gran (auto) 0.10 H K/mm3 (0.00-0.031) Absolute Neuts (auto) 3.7 K/mm3 (1.3-6.7) Absolute Nucleated RBC 0.000 K/mm3 (0.0-0.012) Nucleated RBC % 0.0 % (0.0-0.2) Sodium 138 mmol/L (137-145) Potassium 3.9 mmol/L (3.4-5.0) Chloride 103 mmol/L (98-107) Carbon Dioxide 30 mmol/L (22-30) Anion Gap 5 mmol/L (4-12) BUN 10 mg/dL (9-20) Creatinine 0.90 mg/dL (0.7-1.3) Estim Creat Clear Calc 146 ml/min Estimated GFR > 60 (59 - ) Glucose 99 mg/dL (65-110) POC Capillary Glucose 120 H mg/dl (65-105) Calcium 9.3 mg/dL (8.4-10.2) Total Bilirubin 0.5 mg/dL (0.2-1.3) AST 39 U/L (17-59) ALT 46 U/L (6-50) Alkaline Phosphatase 64 U/L (38-126) Total Protein 8.0 g/dL (6.3-8.2) Albumin 4.5 g/dL (3.5-5.1) Lipase 99 U/L (23-300) Urine Color Yellow (Yellow) Urine Appearance Clear (Clear) Urine pH 6.5 (5.0-9.0) Ur Specific [place] 1.034 (1.001-1.035) Urine Protein Negative mg/dL (Negative) Urine Glucose (UA) Negative mg/dL (Negative) Urine Ketones Negative mg/dL (Negative) Ur Blood (Man) 2+ H (Negative) Urine Nitrate Negative (Negative) Urine Bilirubin Negative (Negative) Urine Urobilinogen 0.2 mg/dL (<2.0) Leukocyte Esterase Rfl Negative LALITO/UL (Negative) Urine RBC 21-50 H /hpf (0-2) Urine WBC 0-5 /hpf (0-3) Ur Squamous Epith Cells None seen /hpf (Few) Urine Bacteria None seen /hpf Urine Casts 0-2 Patient hx anesthesia problems: none Family hx anesthesia problems: none Results Review: All pre-operative results and documents have been reviewed as part of the pre-operative evaluation. FORMERLY [facility], [facility] Past Medical History Medical History Diabetes Anxiety Depression Back pain Ankle fracture Hand fracture, right Vertebral fracture hairline thoracic vertebra fracture UTI (urinary tract infection) Kidney stones GI bleed GERD (gastroesophageal reflux disease) IBS (irritable bowel syndrome) History of rectal polyps Pancreatitis Ulcerative colitis Pneumonia Bronchitis Asthma HTN (hypertension) Surgical History Surgical History Hx of tonsillectomy Family History Family History Father Lung cancer Grandparent Carcinoma of colon Pancreatic cancer Sibling Testicular cancer Social History Social History Social History: Caffeine-daily Smoking packs per day: 0.5 Smoking cigarettes per day: 10.0 Years smoked: 2 Smoking pack-years: 1.00 Smoking status: Never smoker Tobacco type: cigarettes Additional smoking assessment comments: STOPPED SMOKING 2009 Alcohol intake: current Drinks per week: 1 Alcohol use details: socially Substance use: former Substance use type: marijuana Last use: 5 YRS Do You Feel Safe in your Home?: Yes Lack of Transportation: No Lack of Food: Never True Current Housing: I Have Housing Concerned About Future Housing: No Difficulty Paying Gas/Electric Bills: No Difficulty Paying for Meds: No Currently Unemployed: No Education: High School Diploma/GED Difficulty w/ Childcare or Family Care: No Living arrangements: with family Occupation/Education: occupation 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 Informed Consent: The patient's anesthetic plan and its attendant risks and benefits were discussed with the patient/family/POA. Questions were solicited and answers provided to the satisfaction of the patient/family/POA.
[2024-03-21] MEDS: BUPIVACAINE/EPINEPHRINE 0.5% 30 ML VIAL INFILTRATE (09:38)
[2024-03-21] MEDS: LACTATED RINGERS 1,000 ML 30 ML IV CONT ×2 (10:20)
--- NOTE | 2024-03-21 10:26 | P.OP_ITS ---
Procedure Note - Detailed Date of Procedure 03/21/24 Pre-op Diagnosis Acute calculous cholecystitis Post-op Diagnosis Other (Acalculous cholecystitis) Procedure Performed Laparoscopic cholecystectomy Surgeon Corby Gleason DO Anesthesia General and Local (0.5% bupivacaine) Indications This is a 38-year-old man who presented to the emergency department with right upper quadrant abdominal pain. He had been to an outside ED about 1 day prior and was discharged home. He continued to have constant pain and imaging in our ER showed evidence of acute calculous cholecystitis. He could not get his pain under control in the ED and therefore was admitted for further treatment. Discussions were made with the patient about treatment options and decision was made to proceed with laparoscopic cholecystectomy, possible open. Findings Laparoscopic cholecystectomy was performed. The gallbladder did appear distended and was decompressed with a laparoscopic aspirating needle. The gallbladder wall showed some possible mild chronic inflammation. The cystic janet t appeared normal in size. No obstructing stones were identified. The gallbladder was removed and sent to the lab for pathology. Description of Procedure Procedure as well as risks, benefits, and alternatives were discussed with patient. Written consent was obtained and placed in chart prior to procedure. The patient was brought back to surgical suite. Patient was placed in supine position on operating table. Time-out was done to confirm patient and procedure. Patient was then intubated by the anesthesia department. Abdomen was prepped and draped in sterile fashion using chlorhexidine prep. 0.5% bupivacaine with epinephrine was infiltrated at each site of incision. A 5 millimeter incision was made near the umbilicus, and a 5 millimeter Optiview trocar was advanced through the abdominal layers under direct visualization. Once inside the abdominal cavity, carbon dioxide was insufflated to create a pneumoperitoneum. The camera was inserted and the abdomen was inspected. No immediate abnormalities were identified. The patient was placed in reverse Trendelenburg position and rotated slightly to the left. An 11 millimeter i ncision was made in the subxiphoid region, and an 11 millimeter trocar was inserted under direct visualization. Two 5 millimeter incisions were made in the right upper quadrant, and two 5 millimeter trocars were inserted under direct visualization. The gallbladder was identified and grasped at the fundus and retracted superiorly. It was then grasped at the infundibulum retracted laterally. Careful dissection around the neck of the gallbladder was performed using blunt dissection with a [place] grasper and hook electrocautery. The cystic duct was identified, and a window was created behind it. The cystic artery was also identified and a window was created behind it. The critical view of safety was identified, visualizing the cystic duct running directly into the neck of the gallbladder, and the cystic artery running directly into the wall of the gallbladder. A 5 millimeter clip pick pulling machine operator was then used to place 2 clips proximally and 1 clip distally on both the cystic duct and cystic artery. They were then both transected using endoscopic scissors. Once safely away from the jaswant hepatitis, the gallbladder was dissected free from the liver bed using hook electrocautery. Hemostasis was achieved along the way. The gallbladder was removed completely and then removed through the subxiphoid port. The liver bed was then inspected. Hemostasis appeared adequate, and our clips appeared secure. The area was gently irrigated with sterile saline. No other abnormalities were seen. The patient was flattened out in bed, and 1 final inspection was made around the abdominal cavity. The subxiphoid port was removed, and a Eliceo Justyna cone was used to approximate the fascia with an 0-Vicryl simple interrupted suture. The remaining ports were then removed under direct visualization, the camera was removed, and the pneumoperitoneum was released. The skin of the incisions was approximated using 4-0 Monocryl subcuticular sutures. Exofin glue was applied on top. The patient was then awakened from anesthesia, extubated, and transferred to recovery. Estimated Blood Loss 5 Urine Output 825 Pathology Yes (Gallbladder) Complications No immediate complications Condition Stable Disposition Floor [facility] Billing Surgery - Charge Forward: Surgery Billing
[2024-03-21 10:31] LABS: Glucose Point of Care 148 mg/dl (65-105)
[2024-03-21] MEDS: LINACLOTIDE 145 MCG CAPSULE PO (12:35)
[2024-03-21] MEDS: metFORMIN HCL 500 MG TABLET PO ×2 (12:35→17:53)
[2024-03-21] MEDS: LACTATED RINGERS 1,000 ML 100 ML IV CONT (12:44)
[2024-03-21] MEDS: HYDROcodone/acetaminophen (*CRX) 7.5-325 MG TABLET 1 TAB PO ×3 (13:12→23:21)
[2024-03-21] MEDS: CHOLECALCIFEROL 1,000 UNITS TABLET 1000 UNITS PO (19:54)
[2024-03-21] MEDS: AMITRIPTYLINE HCL 25 MG TABLET PO (19:54)
[2024-03-21] MEDS: LORATADINE 10 MG TABLET PO (19:54)
[2024-03-21] MEDS: PANTOPRAZOLE 40 MG TABLET PO (19:55)
[2024-03-21] MEDS: HYDROmorphone HCL INJ (*CRX) 1 MG/ML SYR 0.5 MG IV PUSH (19:56)
[2024-03-22 01:20] VITALS: BP 119/75; PULSE 115; RESP 20; TEMP 37.3; O2SAT 94
[2024-03-22] MEDS: PIPERACILLN/TAZ 3.375GM/NS50ML 3.375 GM/50 ML BAG IVPB ×2 (02:17→10:02)
[2024-03-22 05:20] VITALS: BP 132/83; PULSE 100; RESP 20; TEMP 36.5; O2SAT 98
[2024-03-22] MEDS: ALBUTEROL SULFATE (*SP) AEROSOL 1 PUFF 2 PUFF INHALATION (05:32)
[2024-03-22 05:33] VITALS: PULSE 106; RESP 18
--- NOTE | 2024-03-22 09:44 | PM.DS ---
DS: Admitting Diagnosis Discharge Date 03/22/2024 Admitting Diagnosis acute calculous cholecystitis, hypertension, type 2 diabetes, BMI 45, irritable bowel syndrome DS: Discharge Diagnosis Discharge Diagnosis (1) Acute acalculous cholecystitis: Code(s): K81.0 - Acute cholecystitis Status: Acute (2) HTN (hypertension): Qualifiers: Hypertension type: primary hypertension Qualified Code(s): I10 - Essential (primary) hypertension Code(s): I10 - Essential (primary) hypertension Status: Acute (3) Diabetes: Qualifiers: Diabetes mellitus type: type 2 Diabetes mellitus intermediate insulin use: without technician terminal and repeater use Diabetes mellitus complication status: without complication Qualified Code(s): E11.9 - Type 2 diabetes mellitus without complications Code(s): E11.9 - Type 2 diabetes mellitus without complications Status: Acute (4) BMI 45.0-49.9, adult: Code(s): Z68.42 - Body mass index [BMI] 45.0-49.9, adult Status: Acute (5) IBS (irritable bowel syndrome): Code(s): K58.9 - Irritable bowel syndrome, unspecified Status: Acute DS: Summary Hospital Course Reason for hospitalization: acute cholecystitis Hospital Course: this is a 38-year-old man who presented to the emergency department with right upper quadrant pain that was constant for the past couple days. Ultrasound initially showed a distended gallbladder but then CT showed evidence of acute cholecystitis with a distended gallbladder and gallstone at the neck of the gallbladder. He continued to have constant pain in the emergency department and then was admitted for further treatment. Decision was made to proceed with laparoscopic cholecystectomy. He underwent laparoscopic cholecystectomy on 03/21/2024. Surgery was uncomplicated and no gallstones were identified at the time of surgery. He was returned to the surgical floor postoperatively. His diet and activity were advanced as tolerated. On postop day 1 he was tolerating a low-fat diet and remaining hemodynamically stable. He was discharged on 03/22/2024. Status at Discharge Functional status at discharge: independent ambulation Overall status at discharge: patient is progressing back to baseline Time Spent with Patient Time attestation: Total time spent providing and/or coordinating discharge services: Time spent: Less than 30 minutes Exam Const: General: comfortable and no acute distress GI: Inspection: non-distended, incision ( Intact with glue) and obesity GI Palp: Yes Soft to palpation and Yes Tenderness to palpation present (GI) ( incisional) Auscultation: normal bowel sounds DS: Data Data Completed and Pending Pending studies at discharge: Pending at discharge 03/21/24 09:40 Surgical [PTH] Routine Labs on day of discharge: Labs from last 24 hours 03/21/24 10:25 POC Capillary Glucose 148 H Imaging Radiologist's impression: ITS Impressions Abdomen Ultrasound 03/20/24 19:40 IMPRESSION: 1. Gallbladder distention, which may be secondary to fasting. Abdomen/Pelvis CT 03/20/24 20:08 IMPRESSION: 1. Distended gallbladder with gallstone in the gallbladder neck, which may be a cause of biliary colic. Discharge Plan Discharge Attending physician on discharge: Corby Flores Discharging Clinician: Corby Flores Anticipated Discharge Date/Time: 03/22/24 09:48 Patient Disposition: Home, Self-Care Activity: other - see discharge instructions Diet: low fat Wound Care Instructions: other - see discharge instructions Discharge Instructions: DISCHARGE INSTRUCTION SHEET FOR HERNIA, GALLBLADDER AND APPENDIX SURGERIES DR. FLORES PATIENT TO TAKE HOME 1. May shower in 24 hours, no soaking in bath x 2weeks. 2. Call office for: Wound increasingly painful or bleeding Vomiting Fever of greater than 101 degrees 3. If no bowel movement for three days, take 1 oz. (30 ml) Milk of Magnesia or MiraLax 17g 1 to 2 times daily. 4. No heavy lifting > 10-15 pounds x weeks for hernia repairs and 2 weeks for laparoscopic cholecystectomy or appendectomy. 5. No driving for 3 days or while taking narcotic pain medications. 6. Ice to surgical site for 48 hours (30 min on, then 30 min off). 7. Up walking 10-30 minutes three times per day. 8. Resume previous home medications. 9. Follow-up 10-14 days in office for wound check or as previously scheduled. ([phone]) 10. Oral pain medications prescription to be sent to pharmacy. Take Tylenol 500mg every 6 hours and Ibuprofen 600mg every 6 hours for the first 2 days, then as needed. 11. NUTRITION: Start out by drinking fluids and increase your diet as tolerated. If you experience nausea, try dry toast, crackers, and 7-UP. If nausea or vomiting persists, contact your surgeon?s office. 12. Gallbladders-Low Fat Diet for 2 weeks (send care note of low fat diet) 13. Inguinal Hernias-wear scrotal support for 48 hours 14. Abdominal Hernias-if sent home with abdominal binder, wear for the first 2 weeks (may remove to shower or at night to sleep). Revised July 2018 Patient Instructions: Antibiotic Form Patient Language: Hungarian Stand Alone Forms: General Discharge Information Follow-up/Referrals: Corby Flores, [Physician] - Call for Appointment Discharge Medications: New hydrocodone-acetaminophen 5-325 mg tablet 1 tablet PO Q4H PRN (Reason: pain) Qty: 10 0RF Continued metformin 1,000 mg tablet 500 mg PO BID amitriptyline 25 mg tablet 25 mg PO HS amlodipine 10 mg tablet 10 mg PO HS cholecalciferol (vitamin D3) 25 mcg (1,000 unit) tablet 25 mcg PO HS simethicone [Gas Relief Extra Strength] 125 mg tablet,chewable 125 mg PO QID PRN (Reason: abdominal distention) pantoprazole 40 mg tablet,delayed release (DR/EC) 40 mg PO HS loratadine [Claritin] 10 mg Tablet 10 mg PO HS Linzess 145 mcg capsule 145 mcg PO DAILY albuterol sulfate 90 mcg/actuation HFA aerosol inhaler 2 puff INHALATION Q6H PRN (Reason: shortness of breath or wheezing) Date of admission: 03/20/24 21:48 Primary Care Provider: UNKNOWN,DOCTOR Admitting Provider: Corby Flores Attending physician on admission: Corby Flores Condition: Improved
[2024-03-22] MEDS: ENOXAPARIN 40 MG/0.4 ML SYRINGE SUB-Q (10:02)
[2024-03-22] MEDS: metFORMIN HCL 500 MG TABLET PO (10:02)
[2024-03-22] MEDS: LINACLOTIDE 145 MCG CAPSULE PO (10:02)
[2024-03-22] MEDS: HYDROcodone/acetaminophen (*CRX) 5-325 MG TABLET 1 TAB PO (10:39)
--- NOTE | 2024-03-22 13:32 | WPDANESPN ---
Anes - Prog Note Post-Op Date/Time: 03/22/24 13:32 Cardiovascular status: normal Respiratory status: normal Airway patency: baseline Mental status: baseline Post-Op hydration status: normal Vital Signs: Last Vital Signs Temp 36.5 C 03/22/24 05:20 Pulse 106 H 03/22/24 05:33 Resp 18 03/22/24 05:33 BP 132/83 03/22/24 05:20 Pulse Ox 98 03/22/24 05:20 O2 Del Method Room Air 03/22/24 08:00 O2 Flow Rate 3 03/21/24 11:55 Pain Score (VAS): 1/10, sore throat I/O: Intake & Output 03/21/24 03/22/24 03/22/24 23:59 07:59 15:59 Intake Total 1380 590 290 Balance 1380 590 290 Laboratory Tests 03/20/24 18:49 03/20/24 18:49 Post-procedural complaints: none Patient Feedback: Patient satisfied with anesthetic care.
--- NOTE | 2024-03-22 14:02 | PC.NURSE ---
RN called Dr. Gleason because pt needed a work note and Dr. Gleason would like pt to return to work in 3 days with a lifting restriction of 10-15 lbs.
== END 2024-03-22 14:15 | disposition home or self-care (01) ==
LOC: ANHED 19:05 → ANH3MEDSUR 22:25
PROVIDERS: Emergency Medicine; Admitting Provider Surgery; Emergency Provider Physician Assistant; Visit Provider Surgery
PROC: 0FT44ZZ Resection of Gallbladder, Percutaneous Endoscopic Approach (ICD-10-PCS; CPT 47562; principal; 2024-03-21 09:30)
DX: K81.1 Chronic cholecystitis (principal); I10 Essential (primary) hypertension; E11.9 Type 2 diabetes mellitus without complications; E66.01 Morbid (severe) obesity due to excess calories; Z68.42 Body mass index [BMI] 45.0-49.9, adult; K58.9 Irritable bowel syndrome, unspecified; K21.9 Gastro-esophageal reflux disease without esophagitis; F41.9 Anxiety disorder, unspecified; F32.A Depression, unspecified; Z87.891 Personal history of nicotine dependence; Z79.84 Long term (current) use of oral hypoglycemic drugs; Z79.51 Long term (current) use of inhaled steroids; Z79.899 Other long term (current) drug therapy
CPT/HCPCS: 47562; 36415; 74177; 76705; 80053; 81001; 82948; 83690; 85025; 88304; 94640; 96361; 96365; 96372; 96375; 96376; 99285; A9270; G0378; J0330; J0690; J1100; J1171; J1650; J2003; J2250; J2371; J2405; J2543; J2704; J3010; J7030; J7120; Q9967

== ENCOUNTER 2024-03-28 12:46 | Inpatient (IN) | payer BC, SELFPAY ==
[2024-03-28] VITALS (11 sets, daily range): BP systolic 130–155; BP diastolic 87–109; PULSE 112–134; RESP 19–31; TEMP 36.7–37.1; O2SAT 94–100; BMI 44.6
--- NOTE | ~2024-03-28 | US_ITS ---
Duplex Sonography of the bilateral lower extremities: Indication: Pain Sagittal and transverse B-mode images as well as color-flow imaging were performed on the right and l eft femoral and popliteal veins. B-mode examination was done without and with compression in the tra nsverse plane. There is good visualization of the bilateral common femoral, proximal profunda femora l, superficial femoral, greater saphenous, and popliteal veins. Normal flow was seen on color-flow im aging. Normal compressibility was demonstrated. Visualized calf veins are patent. Impression: No evidence of deep vein thrombosis involving the bilateral lower extremities. Reviewed, dictated and finalized at location [facility]. [employer] Impression: No evidence of deep vein thrombosis involving the bilateral lower e xtremities.
--- NOTE | ~2024-03-28 | CT_ITS ---
EXAMINATION: CT abdomen pelvis w con DATE: 03/28/2024 14:18 INDICATION: Postoperative abdominal pain one week post laparoscopic cholecystectomy TECHNIQUE: Computed tomography (CT) of the abdomen and pelvis was performed with 100 mL Omnipaque-350 intravenous contrast. Automated exposure control and iterative reconstruction technique were employe d. The dose-length product was 1931.24 mGy-cm. COMPARISON: 03/20/2024 FINDINGS: Atelectasis at the bilateral lower lungs. Heart size is normal. No pericardial or pleural effusion. C holecystectomy clips, stranding and small amount of nonloculated fluid at the gallbladder fossa consi stent with change of recent cholecystectomy. Liver, spleen, pancreas, bilateral adrenal glands and ki dneys are normal. Bowels including the appendix are normal. Bladder is normal. Minimal amount of arnoldo tional free fluid in the deep pelvis. No organized abscess or free intraperitoneal gas. Small fat-con taining umbilical hernia. No pathologically enlarged abdominal or pelvic lymphadenopathy. There is mi ld stranding in the subcutaneous fat at the sites of a few likely laparoscopy port tracts. Mild lumba r and mild to moderate thoracic spondylosis. IMPRESSION: 1. Postoperative change of recent lap scopic cholecystectomy with small amount of residual nonloculat ed fluid at the gallbladder fossa and in the deep pelvis. No organized abscess. Reviewed, dictated and finalized at location A. H PANNER IMPRESSION: 1. Postoperative change of recent lap scopic cholecystectomy with small amount of residual nonloculated fluid at the gallbladder fossa and in the deep pelvis. No organized abscess.
--- NOTE | ~2024-03-28 | NM_ITS ---
HEPATOBILIARY SCAN Procedure: Hepatobiliary scan performed following IV administration 4.8 mCi Tc 99m Choletec. Indication:Post cholecystectomy Comparison: None Findings: There is normal radiotracer uptake in the liver parenchyma with prompt excretion into the b iliary tract. Gallbladder not visualized. No evidence of a leak. Small bowel visualized at 25 minut es. The Impression: 1: Normal hepatobiliary scan postcholecystectomy. Reviewed, dictated and finalized at location A. AUL[employer] PLUMBING INSTALLER Impression: 1: Normal hepatobiliary scan postcholecystectomy.
--- NOTE | ~2024-03-28 | CT_ITS ---
CTA chest PE protocol Ordering provider: Ren Blanton MD History: 38 years Male with . tachy, SOB . Comparison: None. Technique: CT angiogram chest was performed following timed intravenous injection of contrast. Thin s lice axial images and reformatted coronal images were obtained. Three dimensional reformatted images of the chest were also obtained using a [employer] workstation. . Automated exposure control and iterati ve reconstruction technique were employed. The dose-length product was 876.64 mGy-cm. 100 mL Omnipaqu e 350 was given IV. Findings: PULMONARY ARTERIES: No pulmonary embolus. VISUALIZED THORACIC INLET: Normal. MEDIASTINUM: Aorta/coronary arteries: The thoracic aorta is normal. Heart/other: The heart is not enlarged. Lymph nodes: No mediastinal or hilar adenopathy. Soft tissues density seen anterior to the aortic arch which may be residual thymus tissue. Hematoma a lso cannot be excluded although no extravasation seen. LUNGS: Groundglass appearance is seen in the lung bases. Early pneumonia cannot be excluded. Follow-up advis ed. No pulmonary nodules or masses. No infiltrates or effusions. No pneumothorax. VISUALIZED UPPER ABDOMEN: Status post cholecystectomy with soft tissue density in the area of the gal lbladder bed. Clinical correlation advised. Otherwise, the visualized upper abdomen is normal. MUSCULOSKELETAL: Soft tissues: The superficial soft tissues are normal. Bones: Age appropriate degenerative changes of the spine. IMPRESSION: 1. Bilateral groundglass appearance in the lung bases which may indicate early pneumonia. Follow-up advised. 2. Status post cholecystectomy with soft tissue density in the area of the gallbladder bed. Clinical correlation advised. Reviewed, dictated and finalized at location A. NERY OPERATOR ASSISTANT IMPRESSION: 1. Bilateral groundglass appearance in the lung bases which may indicate early pneumonia. Follow-up advised. 2. Status post cholecystectomy with soft tissue density in the area of the gal lbladder bed. Clinical correlation advised.
--- NOTE | ~2024-03-28 | CT_ITS ---
Clinical Indication: Elevated d-dimer CT Scan of the Chest with Contrast: Technique: Contiguous sections were acquired throughout the chest after intravenous administration of 100 cc of Omnipaque 350. Dose reduction technique was used on this scan by utilizing automated expos ure control and iterative reconstruction technique. The dose-length product (DLP) was 1028.00 mGy-cm. COMPARISON: 03/28/2024 Findings: There is no evidence of any significant mediastinal, hilar or axillary lymphadenopathy. There is no f illing defect in the pulmonary arterial tree to suggest pulmonary embolus. There is no evidence of ao rtic dissection or aneurysm. There is no evidence of pleural or pericardial effusion. The lungs are clear. No pulmonary nodules or infiltrates are noted. Images through the upper abdomen reveal no abnormalities. Impression: No evidence of pulmonary embolus, aortic dissection, or aortic aneurysm. Clear lungs. Reviewed, dictated and finalized at [facility]. Impression: No evidence of pulmonary embolus, aortic dissection, or aortic aneurysm. Clear lungs.
--- NOTE | ~2024-03-28 | XR_ITS ---
Supine and upright views of the abdomen Clinical history: Abdominal pain Findings: Bowel gas pattern is nonspecific. No evidence for obstruction or free air. No abnormal mass lesion or calcification is seen. Osseous structures are intact. Impression: No significant abnormality is seen. Reviewed, dictated and finalized at [facility]. H PIECER Impression: No significant abnormality is seen.
--- NOTE | 2024-03-28 13:19 | ED_ITS ---
HPI - General Adult General Chief complaint: Recheck/Abnormal Lab/Rx Stated complaint: RUQ pain, post surgery Time Seen by Provider: 03/28/24 12:55 History of Present Illness HPI narrative: 38-year-old male present to the emergency department for evaluation for increased right flank and right upper quadrant pain. Patient reports he had a cholecystectomy done by Dr. Gleason approximately 1 week ago. Patient states he had been feeling improved but then began having worsening right upper quadrant pain over last 24-48 hours. Patient described increased pressure with associated nausea and vomiting. Related Data Home Medications ?Medication ?Instructions ?Recorded ?Confirmed ?Last Taken ?Type pantoprazole 40 mg tablet,delayed 40 mg PO HS 03/05/23 03/28/24 03/27/24 History release loratadine 10 mg tablet (Claritin) 10 mg PO HS 10/18/23 03/28/24 03/27/24 History amitriptyline 25 mg tablet 25 mg PO HS 02/17/24 03/28/24 03/27/24 History amlodipine 10 mg tablet 10 mg PO HS 02/17/24 03/28/24 03/27/24 History cholecalciferol (vitamin D3) 25 25 mcg PO HS 02/17/24 03/28/24 03/27/24 History mcg (1,000 unit) tablet simethicone 125 mg chewable tablet 125 mg PO QID PRN abdominal 02/17/24 03/28/24 Unknown History (Gas Relief Extra Strength) distention albuterol sulfate 90 mcg/actuation 2 puff inhalation Q6H PRN 03/20/24 03/28/24 Unknown History aerosol inhaler shortness of breath or wheezing linaclotide 145 mcg capsule 145 mcg PO DAILY 03/20/24 03/28/24 03/27/24 History (Linzess) metformin 500 mg tablet 500 mg PO BID 03/28/24 03/28/24 03/27/24 History Allergies Allergy/AdvReac Type Severity Reaction Status Date / Time morphine Allergy Unknown SEIZURE Verified 03/20/24 23:47 lisinopril AdvReac Unknown Cough Verified 03/20/24 23:47 Review of Systems 2 Review of Systems: All systems reviewed & are unremarkable except as noted in HPI and below PMFSH Past Medical History Medical History (Updated 03/28/24 @ 19:58 by Ren Blanton MD) Diabetes Anxiety Depression Back pain Ankle fracture Hand fracture, right Vertebral fracture hairline thoracic vertebra fracture UTI (urinary tract infection) Kidney stones GI bleed GERD (gastroesophageal reflux disease) IBS (irritable bowel syndrome) History of rectal polyps Pancreatitis Ulcerative colitis Pneumonia Bronchitis Asthma HTN (hypertension) Surgical History Surgical History Hx of tonsillectomy Family History Family History Father Lung cancer Grandparent Carcinoma of colon Pancreatic cancer Sibling Testicular cancer Social History Social History Social History: Caffeine-daily Smoking packs per day: 0.5 Smoking cigarettes per day: 10.0 Years smoked: 2 Smoking pack-years: 1.00 Smoking status: Never smoker Tobacco type: cigarettes Additional smoking assessment comments: STOPPED SMOKING 2009 Alcohol intake: current Drinks per week: 1 Alcohol use details: socially Substance use: never Substance use type: marijuana Last use: 5 YRS Do You Feel Safe in your Home?: Yes Lack of Transportation: No Lack of Food: Never True Current Housing: I Have Housing Concerned About Future Housing: No Difficulty Paying Gas/Electric Bills: No Difficulty Paying for Meds: No Currently Unemployed: No Education: Associate Degree Difficulty w/ Childcare or Family Care: No Living arrangements: with family Occupation/Education: occupation 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 EYES: PERRLA/EOMI, conjunctivae clear. NOSE: Normal no drainage EARS:TMS clear with good light reflex. THROAT: Pharynx clear, no exudate. NECK: Supple. No adenopathy, no masses. RESPIRATORY: Airway patent, respirations nonlabored. Clear to auscultation bilaterally, no rales, rhonchi, wheezing. CARDIOVASCULAR: Regular rate and rhythm without murmurs rubs or gallops. ABDOMINAL: Right upper right lower quadrant tenderness to palpation MUSCULOSKELETAL: Moves all extremities. Strength/ROM intact, No edema, No calf tenderness. NEURO: Alert. Cranial nerves II through XII intact. Good gait. Good coordination SKIN: Warm, dry. Normal Color Course Course Emergency Course: Case was discussed with hospitalist and surgery and patient was admitted to the hospitalist with surgery consult. Vital Signs Vital signs: Vital Signs Temperature 98.8 F 03/28/24 12:52 Pulse Rate 134 H 03/28/24 12:52 Respiratory Rate 20 03/28/24 12:52 Blood Pressure 155/105 H 03/28/24 12:52 Pulse Oximetry 100 03/28/24 12:52 Temperature 98.7 F 03/28/24 19:37 Pulse Rate 117 H 03/28/24 19:37 Respiratory Rate 24 H 03/28/24 19:37 Blood Pressure 152/94 H 03/28/24 19:37 Pulse Oximetry 100 03/28/24 19:37 Medical Decision Making MDM Narrative Medical decision making narrative: 38-year-old male presenting emergency department for evaluation of worsening right upper quadrant pain shortness of breath approximately 6 days postop. Patient was afebrile but does have a leukocytosis of 11.1 with normal hemoglobin of 14.3. Patient has no acute abnormalities on his CMP with normal T bili AST ALT alk-phos and lipase. Abdomen pelvis CT did show small amount fluid around the gallbladder fossa but no evidence of a biliary. CTA was ordered to evaluate pulmonary embolism and showed no evidence of PE but did show ground-glass opacities suspicious for pneumonia. Patient was started antibiotics emergency department. Case was discussed with surgery and they will see the patient as consult. Did recommend ordering a HIDA scan and admitting to hospitalist. Patient family updated on the results of workup they are comfortable plan for admission. Differential Diagnosis Differential Diagnosis: Biliary leak, postop bleeding, abscess infection, pneumonia, pulmonary embolism, bowel obstruction Vital Signs Vital Signs: Vital Signs Temperature 98.8 F 03/28/24 12:52 Pulse Rate 134 H 03/28/24 12:52 Respiratory Rate 20 03/28/24 12:52 Blood Pressure 155/105 H 03/28/24 12:52 Pulse Oximetry 100 03/28/24 12:52 Temperature 98.7 F 03/28/24 19:37 Pulse Rate 117 H 03/28/24 19:37 Respiratory Rate 24 H 03/28/24 19:37 Blood Pressure 152/94 H 03/28/24 19:37 Pulse Oximetry 100 03/28/24 19:37 Lab Data Lab results reviewed: Yes I reviewed the patient's lab results. 03/28/24 13:20 03/28/24 13:20 Labs: Lab Results 03/28/24 03/28/24 Range/Units 13:20 14:34 WBC 11.1 H (4.5-10.0) K/mm3 RBC 4.99 (4.6-6.20) M/mm3 Hgb 14.3 (14.0-18.0) g/dL Hct 43.6 (42.0-52.0) % MCV 87.4 (80-100) fl MCH 28.7 (26-34) pg MCHC 32.8 (32-36) g/dl RDW 12.4 (11.5-14.5) % Plt Count 323 (150-375) k/mm3 MPV 9.4 (7.4-10.4) fl Immature Gran % (Auto) 0.7 H (0-0.5) % Neut % (Auto) 68.5 (45.5-73.1) % Lymph % (Auto) 20.1 (18.3-44.2) % [place] % (Auto) 8.6 H (2.6-8.5) % Eos % (Auto) 1.6 (0-4.4) % Baso % (Auto) 0.5 (0.2-1.2) % Lymph # (Auto) 2.22 (0.9-3.2) K/mm3 [place] # (Auto) 1.0 H (0.1-0.6) K/mm3 Eos # (Auto) 0.2 (0-0.3) K/mm3 Baso # (Auto) 0.1 (0.0-0.1) K/mm3 Abs Immat Gran (auto) 0.08 H (0.00-0.031) K/mm3 Absolute Neuts (auto) 7.6 H (1.3-6.7) K/mm3 Absolute Nucleated RBC 0.000 (0.0-0.012) K/mm3 Nucleated RBC % 0.0 (0.0-0.2) % PT 13.1 (11.1-14.7) Seconds INR 1.0 APTT 31.7 (22.3-36.8) Seconds Sodium 139 (137-145) mmol/L Potassium 4.0 (3.4-5.0) mmol/L Chloride 104 (98-107) mmol/L Carbon Dioxide 27 (22-30) mmol/L Anion Gap 8 (4-12) mmol/L BUN 8 L (9-20) mg/dL Creatinine 0.90 (0.7-1.3) mg/dL Estim Creat Clear Calc 141 ml/min Estimated GFR > 60 (59 - ) Glucose 119 H (65-110) mg/dL Lactic Acid 1.1 (0.7-2.0) mmol/L Calcium 9.9 (8.4-10.2) mg/dL Total Bilirubin 0.9 (0.2-1.3) mg/dL AST 31 (17-59) U/L ALT 44 (6-50) U/L Alkaline Phosphatase 78 (38-126) U/L Total Protein 9.0 H (6.3-8.2) g/dL Albumin 5.0 (3.5-5.1) g/dL Lipase 83 (23-300) U/L Imaging Data Radiologist's impression: Impressions Abdomen/Pelvis CT 03/28/24 14:30 IMPRESSION: 1. Postoperative change of recent lap scopic cholecystectomy with small amount of residual nonloculated fluid at the gallbladder fossa and in the deep pelvis. No organized abscess. Chest CTA 03/28/24 15:31 IMPRESSION: 1. Bilateral groundglass appearance in the lung bases which may indicate early pneumonia. Follow-up advised. 2. Status post cholecystectomy with soft tissue density in the area of the gallbladder bed. Clinical correlation advised. Discharge Plan Discharge Clinical Impression: Abdominal pain, acute, right upper quadrant, Pneumonia, Acute dyspnea Patient Disposition: Still a Patient Condition: Serious
[2024-03-28] MEDS: SODIUM CHLORIDE 0.9% IV 1,000 ML 999 ML IV CONT ×2 (13:21)
[2024-03-28] MEDS: HYDROmorphone HCL INJ (*CRX) 1 MG/ML SYR IV PUSH ×2 (13:22→14:25)
[2024-03-28] MEDS: ONDANSETRON INJ 4 MG/2 ML VIAL IV PUSH ×2 (13:22→20:36)
[2024-03-28 13:39] LABS: Basophils Absolute Auto 0.1 K/mm3 (0.0-0.1); Basophils Percent Auto 0.5 % (0.2-1.2); Eosinophils Absolute Auto 0.2 K/mm3 (0-0.3); Eosinophils Percent Auto 1.6 % (0-4.4); Hematocrit 43.6 % (42.0-52.0); Hemoglobin 14.3 g/dL (14.0-18.0); Immature Granulocyte Absolute 0.08 K/mm3 (0.00-0.031); Immature Granulocyte Percent A 0.7 % (0-0.5); Lymphocytes Absolute Auto 2.22 K/mm3 (0.9-3.2); Lymphocytes Percent Auto 20.1 % (18.3-44.2); Mean Corpuscular HGB Conc 32.8 g/dl (32-36); Mean Corpuscular Hemoglobin 28.7 pg (26-34); Mean Corpuscular Volume 87.4 fl (80-100); Mean Platelet Volume 9.4 fl (7.4-10.4); Monocytes Percent Auto 8.6 % (2.6-8.5); Neutrophils Absolute Auto 7.6 K/mm3 (1.3-6.7); Neutrophils Percent Auto 68.5 % (45.5-73.1); Platelet Count Result 323 k/mm3 (150-375); Red Blood Count 4.99 M/mm3 (4.6-6.20); Red Cell Distribution Width 12.4 % (11.5-14.5); White Blood Count 11.1 K/mm3 (4.5-10.0)
[2024-03-28 13:50] LABS: Alanine Aminotransferase 44 U/L (6-50); Alkaline Phosphatase 78 U/L (38-126); Anion Gap 8 mmol/L (4-12); Aspartate Amino Transferase 31 U/L (17-59); Bilirubin,Total 0.9 mg/dL (0.2-1.3); Blood Urea Nitrogen 8 mg/dL (9-20); Calcium 9.9 mg/dL (8.4-10.2); Carbon Dioxide 27 mmol/L (22-30); Chloride 104 mmol/L (98-107); Estimated CRCL calculation 141 ml/min; Estimated Glomerular Filt Rate > 60; Glucose 119 mg/dL (65-110); Lipase 83 U/L (23-300); Sodium 139 mmol/L (137-145)
[2024-03-28 13:57] LABS: Prothrombin Time 13.1 Seconds (11.1-14.7)
[2024-03-28 13:58] LABS: Partial Thromboplastin Time 31.7 Seconds (22.3-36.8)
[2024-03-28 14:51] LABS: Lactic Acid Reflex 1.1 mmol/L (0.7-2.0)
--- NOTE | 2024-03-28 17:25 | PC.NURSE ---
Patient in stretcher and states he is out of it from the pain medication. Patient states he is still in pain at this time. Patient aware he needs to provide a urine sample
[2024-03-28] MEDS: metroNIDAZOLE 500 MG/ISO 100ML 500 MG/100 ML BAG 100 MG IVPB (17:32)
--- NOTE | 2024-03-28 18:31 | PM.IMHP ---
H&P: HPI History of Present Illness Date/Time: 03/28/24 18:31 Chief Complaint: Acute pain postop Narrative: 38-year-old male with past medical history of IBS, hypertension, diabetes and back pain acute postop pain after cholecystectomy done last week associated with nausea and vomiting. Patient reports he had a cholecystectomy done by Dr. Gleason approximately 1 week ago. He states that whenever he went home he just had regular postop muscle pain and soreness. He states that he has a history of IBS and has not had normal bowel movements since he has been home on home he is on Linzess. He states that his bowel movements are hard and small. Patient states that this pain is more in his back and right flank and goes around to follow up with abdomen. He denies fevers or chills. Lab work in the emergency room shows leukocytosis at 11.1, CTA of the chest shows pneumonia, CT of the abdomen pelvis show Postoperative change of recent lap scopic cholecystectomy with small amount of residual nonloculated fluid at the gallbladder fossa and in the deep pelvis. No organized abscess. Blood cultures are pending. Patient is tachycardic at 115. Patient started on levofloxacin, Flagyl and IV fluids. Review of Systems Review of Systems: 12 systems were reviewed and are negative except for as per HPI. PENDING SALE TO [facility] Past Medical History Medical History (Updated 03/28/24 @ 23:39 by Zuleima Martin APRN) Diabetes Anxiety Depression Back pain Ankle fracture Hand fracture, right Vertebral fracture hairline thoracic vertebra fracture UTI (urinary tract infection) Kidney stones GI bleed GERD (gastroesophageal reflux disease) IBS (irritable bowel syndrome) History of rectal polyps Pancreatitis Ulcerative colitis Pneumonia Bronchitis Asthma HTN (hypertension) Surgical History Surgical History (Updated 03/28/24 @ 23:37 by Zuleima Martin APRN) Hx laparoscopic cholecystectomy Hx of tonsillectomy Family History Family History Father Lung cancer Grandparent Carcinoma of colon Pancreatic cancer Sibling Testicular cancer Social History Social History Social History: Caffeine-daily Smoking packs per day: 0.5 Smoking cigarettes per day: 10.0 Years smoked: 2 Smoking pack-years: 1.00 Smoking status: Never smoker Tobacco type: cigarettes Additional smoking assessment comments: STOPPED SMOKING 2009 Alcohol intake: current Drinks per week: 1 Alcohol use details: socially Substance use: never Substance use type: marijuana Last use: 5 YRS Do You Feel Safe in your Home?: Yes Lack of Transportation: No Lack of Food: Never True Current Housing: I Have Housing Concerned About Future Housing: No Difficulty Paying Gas/Electric Bills: No Difficulty Paying for Meds: No Currently Unemployed: No Education: Associate Degree Difficulty w/ Childcare or Family Care: No Living arrangements: with family Occupation/Education: occupation 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[employer] Gender identity (if verbalized by the patient): Male Spiritual care concerns: No Meds Home Medications and Allergies Home Medications ?Medication ?Instructions ?Recorded ?Confirmed ?Type pantoprazole 40 mg tablet,delayed 40 mg PO HS 03/05/23 03/28/24 History release loratadine 10 mg tablet (Claritin) 10 mg PO HS 10/18/23 03/28/24 History amitriptyline 25 mg tablet 25 mg PO HS 02/17/24 03/28/24 History amlodipine 10 mg tablet 10 mg PO HS 02/17/24 03/28/24 History cholecalciferol (vitamin D3) 25 25 mcg PO HS 02/17/24 03/28/24 History mcg (1,000 unit) tablet simethicone 125 mg chewable tablet 125 mg PO QID PRN abdominal 02/17/24 03/28/24 History (Gas Relief Extra Strength) distention albuterol sulfate 90 mcg/actuation 2 puff inhalation Q6H PRN 03/20/24 03/28/24 History aerosol inhaler shortness of breath or wheezing linaclotide 145 mcg capsule 145 mcg PO DAILY 03/20/24 03/28/24 History (Linzess) metformin 500 mg tablet 500 mg PO BID 03/28/24 03/28/24 History Allergies Allergy/AdvReac Type Severity Reaction Status Date / Time morphine Allergy Unknown SEIZURE Verified 03/20/24 23:47 lisinopril AdvReac Unknown Cough Verified 03/20/24 23:47 Vital Signs Vital Signs - 24 hr 03/28/24 12:52 03/28/24 14:27 03/28/24 15:39 Temperature 98.8 F Pulse Rate 134 H 128 H 117 H Respiratory Rate 20 31 H 21 H Blood Pressure 155/105 H 149/90 H 130/87 Pulse Oximetry 100 94 98 03/28/24 17:23 Temperature Pulse Rate 115 H Respiratory Rate 19 Blood Pressure 130/99 H Pulse Oximetry 97 Exam Narrative: General: well appearing, appears stated age. HEENT: normocephalic, atraumatic. Mucous membranes moist. EOMI, PERRLA, bilateral sclera anicteric, no conjunctival injection. Neck supple without JVD, lymphadenopathy, or bruit. Respiratory: Diminished to ascultation bilaterally. No rales/rhonic/wheezes. Cardiovascular: Regular rate and rhythm, normal S1-S2 upon ascultation. No murmurs, rubs, or clicks. PMI is nondisplaced, capillary refill less than 3 second. Abdomen: Soft, round, no pulsatile masses, nondistended and nontender. No rebound, no guarding. No CVA tenderness, no hepatosplenomegaly. Bowel sounds present to all four quadrants. No high pitch or tinkling sounds, resonant to percussion. Extremities: No cyanosis, clubbing, or edema present. Pulses are palpable 2/2. Active ROM to all four extremities. Neuro: Alert and orientated x 4. PERRLA. Cranial nerves 2-12 intact without focal deficit. Skin: Warm, dry, and intact, without rash, erythema, or lesion. Psych: pleasant, cooperative, normal speech, normal affect, no hallucinations, no dysarthia H&P: Results Labs Labs: Short CBC 03/28/24 Range/Units 13:20 WBC 11.1 H (4.5-10.0) K/mm3 Hgb 14.3 (14.0-18.0) g/dL Hct 43.6 (42.0-52.0) % Plt Count 323 (150-375) k/mm3 BMP 03/28/24 13:20 Sodium 139 Potassium 4.0 Chloride 104 Carbon Dioxide 27 BUN 8 L Creatinine 0.90 Glucose 119 H Calcium 9.9 Liver Function 03/28/24 Range/Units 13:20 Total Bilirubin 0.9 (0.2-1.3) mg/dL AST 31 (17-59) U/L ALT 44 (6-50) U/L Alkaline Phosphatase 78 (38-126) U/L Albumin 5.0 (3.5-5.1) g/dL Assessment and Plan Assessment and plan (1) Abdominal pain: Code(s): R10.9 - Unspecified abdominal pain Status: Inactive Assessment and Plan: Right flank to right abdomen pain, Patient had a cholecystectomy last week HIDA scan pending NPO sips with meds Lipase normal liver enzymes normal (2) Nausea & vomiting: Code(s): R11.2 - Nausea with vomiting, unspecified Status: Inactive Assessment and Plan: CT abdomen show no acute findings that explain nausea and vomiting IV fluids for hydration Zofran as needed (3) Pneumonia: Code(s): J18.9 - Pneumonia, unspecified organism Status: Acute Assessment and Plan: Started on levofloxacin and Flagyl Wean oxygen as able Aggressive pulmonary toileting (4) Leukocytosis: Code(s): D72.829 - Elevated white blood cell count, unspecified Status: Acute Assessment and Plan: No abscess seen on abdominal CT, Could be related to pneumonia UA pending Blood cultures pending (5) Tachycardia: Code(s): R00.0 - Tachycardia, unspecified Status: Acute Assessment and Plan: Could be related to pain or infection EKG pending Pain management (6) Constipation: Code(s): K59.00 - Constipation, unspecified Status: Acute Assessment and Plan: Likely induced from narcotics from cholecystectomy Hold Linjaness MiraLax senna (7) HTN (hypertension): Qualifiers: Hypertension type: primary hypertension Qualified Code(s): I10 - Essential (primary) hypertension Code(s): I10 - Essential (primary) hypertension Status: Acute Assessment and Plan: Patient normotensive after receiving pain medications will hold off on antihypertensives for now, reassess in a.m. (8) Diabetes: Qualifiers: Diabetes mellitus complication status: without complication Diabetes mellitus long line teamster insulin use: without long line teamster use Diabetes mellitus type: type 2 Qualified Code(s): E11.9 - Type 2 diabetes mellitus without complications Code(s): E11.9 - Type 2 diabetes mellitus without complications Status: Acute Assessment and Plan: Q.6 are Accu-Cheks while NPO SSI Hold home metformin while in hospital Quality VTE Prophylaxis VTE prophylaxis: mechanical ordered and pharmacologic ordered Hospitalist MIPS Advance Care Plan I have confirmed that the patient's Advanced Care Plan is present, code status is documented, or surrogate decision maker is listed in patient medical record.: Yes Medication Reconciliation I have utilized all available resources to obtain, update and review the patients current medications (includes all prescriptions, OTC, herbals, cannabis, and nutritional supplements).: Yes
--- NOTE | 2024-03-28 18:36 | ECG_ITS ---
Test Date: 2024-03-29 09:18:36 Measurements Intervals Deshler Rate: 99 P: 30 NE: 160 QRS: -4 QRSD: 90 T: 18 QT: 351 QTc: 452 Interpretive Statements SINUS RHYTHM CANNOT RULE OUT INFERIOR MYOCARDIAL INFARCTION ABNORMAL ECG No previous ECG available for comparison Electronically Signed On 03-29-2024 13:47:24 CHIEF CREATIVE OFFICER by Justice Torres M.D.
--- NOTE | 2024-03-28 18:47 | ADMGEN ---
This patient, Oscar Rehman, was admitted to IMU Room 209-01. Patient/family oriented to hospital policies and general routines including ID bracelet, bed and alarms, visiting hours, pain management, procedures, bathroom and other care routines, personal items, smoking policy, room service/diet, and visiting hours. Information on how to activate the Rapid Response Team has been discussed. Patient/Family are encouraged to report perceived risks to care and to ask questions if they do not understand what they are told or what they should do.
[2024-03-28 20:13] LABS: Glucose Point of Care 108 mg/dl (65-105)
[2024-03-28] MEDS: HYDROmorphone HCL INJ (*CRX) 1 MG/ML SYR 0.5 MG IV PUSH (20:37)
[2024-03-28] MEDS: levoFLOXacin 750 MG/D5W 150 ML 750 MG/150 ML BAG 100 MG IVPB (20:41)
[2024-03-28] MEDS: SODIUM CHLORIDE 0.9% IV 1,000 ML 125 ML IV CONT (20:44)
[2024-03-28 22:19] LABS: Alanine Aminotransferase 44 U/L (6-50); Albumin Level 4.2 g/dL (3.5-5.1); Alkaline Phosphatase 71 U/L (38-126); Anion Gap 2 mmol/L (4-12); Aspartate Amino Transferase 32 U/L (17-59); Bilirubin,Total 0.8 mg/dL (0.2-1.3); Blood Urea Nitrogen 7 mg/dL (9-20); Carbon Dioxide 29 mmol/L (22-30); Chloride 103 mmol/L (98-107); Estimated CRCL calculation 184 ml/min; Estimated Glomerular Filt Rate > 60; Glucose 114 mg/dL (65-110); Lipase 68 U/L (23-300); Potassium 3.8 mmol/L (3.4-5.0); Sodium 134 mmol/L (137-145)
[2024-03-28] MEDS: KETOROLAC 15 MG/ML VIAL (*BKC) IV PUSH (22:47)
[2024-03-28 23:16] LABS: Glucose Point of Care 99 mg/dl (65-105)
[2024-03-29] VITALS (17 sets, daily range): BP systolic 127–147; BP diastolic 81–93; PULSE 90–116; RESP 12–22; TEMP 36.6–37.3; O2SAT 95–99
[2024-03-29] LABS: Add Urine Microscopic? NO; Appearance Urine Clear (Clear); Bilirubin Urine Negative (Negative); Blood Urine Negative (Negative); Color Urine Yellow (Yellow); Glucose Urine UA Negative (Negative); Ketones Urine Trace mg/dL (Negative); Leukocyte Esterase Ur Negative LEU/UL (Negative); Nitrate Urine Negative (Negative); Protein Urine Negative (Negative); Specific Grav Ur 1.037 (1.001-1.035)
[2024-03-29] MEDS: ONDANSETRON INJ 4 MG/2 ML VIAL IV PUSH ×4 (00:24→21:00)
[2024-03-29] MEDS: metroNIDAZOLE 500 MG/ISO 100ML 500 MG/100 ML BAG 100 MG IVPB ×4 (00:27→22:28)
[2024-03-29] MEDS: HYDROmorphone HCL INJ (*CRX) 1 MG/ML SYR 0.5 MG IV PUSH ×5 (00:58→20:58)
[2024-03-29 05:08] LABS: Basophils Percent Auto 0.5 % (0.2-1.2); Eosinophils Absolute Auto 0.3 K/mm3 (0-0.3); Eosinophils Percent Auto 3.7 % (0-4.4); Hematocrit 39.3 % (42.0-52.0); Hemoglobin 12.7 g/dL (14.0-18.0); Immature Granulocyte Absolute 0.05 K/mm3 (0.00-0.031); Immature Granulocyte Percent A 0.7 % (0-0.5); Lymphocytes Absolute Auto 1.78 K/mm3 (0.9-3.2); Lymphocytes Percent Auto 23.5 % (18.3-44.2); Mean Corpuscular HGB Conc 32.3 g/dl (32-36); Mean Corpuscular Hemoglobin 28.9 pg (26-34); Mean Corpuscular Volume 89.5 fl (80-100); Mean Platelet Volume 9.2 fl (7.4-10.4); Monocytes Absolute Auto 0.9 K/mm3 (0.1-0.6); Monocytes Percent Auto 11.5 % (2.6-8.5); Neutrophils Absolute Auto 4.6 K/mm3 (1.3-6.7); Neutrophils Percent Auto 60.1 % (45.5-73.1); Platelet Count Result 246 k/mm3 (150-375); Red Blood Count 4.39 M/mm3 (4.6-6.20); Red Cell Distribution Width 12.2 % (11.5-14.5); White Blood Count 7.6 K/mm3 (4.5-10.0)
[2024-03-29] MEDS: SODIUM CHLORIDE 0.9% IV 1,000 ML 125 ML IV CONT ×2 (06:31→17:52)
[2024-03-29] MEDS: KETOROLAC 15 MG/ML VIAL (*BKC) IV PUSH ×3 (06:46→17:52)
[2024-03-29 06:57] LABS: Glucose Point of Care 101 mg/dl (65-105)
[2024-03-29] MEDS: ENOXAPARIN 40 MG/0.4 ML SYRINGE SUB-Q (09:21)
[2024-03-29] MEDS: PANTOPRAZOLE SODIUM IV 40 MG VIAL IV PUSH (09:22)
[2024-03-29] MEDS: polyethylene glycoL 3350 17 GM POWD.PACK PO ×2 (09:22→16:17)
[2024-03-29] MEDS: DOCUSATE SODIUM 100 MG CAPSULE PO ×2 (09:22→16:16)
[2024-03-29] MEDS: SENNA/DOCUSATE SODIUM TABLET 1 TAB PO ×2 (09:22→16:16)
--- NOTE | 2024-03-29 09:49 | PC.NURSE ---
Notified Dr. Delaney of patient being moderate risk on Suicide screening. I spoke with patient and he states he had thoughts of harming himself 10 years ago but none now. I notified Dr. Delaney of this. he ordered a psych consult. Order put in for a psych consult.
[2024-03-29 11:57] LABS: Glucose Point of Care 96 mg/dl (65-105)
--- NOTE | 2024-03-29 12:33 | P.PNIM_ITS ---
Progress Note: A&P Assessment and Plan (1) Abdominal pain: Code(s): R10.9 - Unspecified abdominal pain Status: Inactive Assessment and Plan: Right flank to right abdomen pain, Patient had a cholecystectomy last week HIDA scan pending NPO sips with meds Lipase normal liver enzymes normal (2) Nausea & vomiting: Code(s): R11.2 - Nausea with vomiting, unspecified Status: Inactive Assessment and Plan: CT abdomen show no acute findings that explain nausea and vomiting IV fluids for hydration Zofran as needed (3) Pneumonia: Code(s): J18.9 - Pneumonia, unspecified organism Status: Acute Assessment and Plan: Started on levofloxacin and Flagyl Wean oxygen as able Aggressive pulmonary toileting (4) Leukocytosis: Code(s): D72.829 - Elevated white blood cell count, unspecified Status: Acute Assessment and Plan: No abscess seen on abdominal CT, Could be related to pneumonia UA pending Blood cultures pending (5) Tachycardia: Code(s): R00.0 - Tachycardia, unspecified Status: Acute Assessment and Plan: Could be related to pain or infection EKG pending Pain management (6) Constipation: Code(s): K59.00 - Constipation, unspecified Status: Acute Assessment and Plan: Likely induced from narcotics from cholecystectomy Hold Linzess MiraLax, senna (7) HTN (hypertension): Qualifiers: Hypertension type: primary hypertension Qualified Code(s): I10 - Essential (primary) hypertension Code(s): I10 - Essential (primary) hypertension Status: Acute Assessment and Plan: Patient normotensive after receiving pain medications will hold off on antihypertensives for now, reassess in a.m. (8) Diabetes: Qualifiers: Diabetes mellitus type: type 2 Diabetes mellitus senior care insulin use: without roasterman use Diabetes mellitus complication status: without complication Qualified Code(s): E11.9 - Type 2 diabetes mellitus without complications Code(s): E11.9 - Type 2 diabetes mellitus without complications Status: Acute Assessment and Plan: Q.6 are Accu-Cheks while NPO SSI Hold home metformin while in hospital Plan DVT prophylaxis on Sq Lovenox Subjective Date/time seen: 03/29/24 12:33 Interval history: Patient comfortable at bedside Review of Systems Review of Systems: 12 systems were reviewed and are negativ e except for as per HPI. Exam Narrative: General: well appearing, appears stated age. HEENT: normocephalic, atraumatic. Mucous membranes moist. EOMI, PERRLA, bilateral sclera anicteric, no conjunctival injection. Neck supple without JVD, lymphadenopathy, or bruit. Respiratory: Diminished to ascultation bilaterally. No rales/rhonic/wheezes. Cardiovascular: Regular rate and rhythm, normal S1-S2 upon ascultation. No murmurs, rubs, or clicks. PMI is nondisplaced, capillary refill less than 3 second. Abdomen: Soft, round, no pulsatile masses, nondistended and nontender. No rebound, no guarding. No CVA tenderness, no hepatosplenomegaly. Bowel sounds present to all four quadrants. No high pitch or tinkling sounds, resonant to percussion. Extremities: No cyanosis, clubbing, or edema present. Pulses are palpable 2/2. Active ROM to all four extremities. Neuro: Alert and orientated x 4. PERRLA. Cranial nerves 2-12 intact without focal deficit. Skin: Warm, dry, and intact, without rash, erythema, or lesion. Psych: pleasant, cooperative, normal speech, normal affect, no hallucinations, no dysarthia Objective Data Vital Signs Vital Signs: Vital Signs - 24 hr 03/28/24 12:52 03/28/24 14:27 03/28/24 15:39 Temperature 98.8 F Pulse Rate 134 H 128 H 117 H Respiratory Rate 20 31 H 21 H Blood Pressure 155/105 H 149/90 H 130/87 Pulse Oximetry 100 94 98 Oxygen Delivery Oxygen Flow Rate Fraction of Inspired Oxygen 03/28/24 17:23 03/28/24 18:45 03/28/24 19:37 Temperature 98.1 F 98.7 F Pulse Rate 115 H 119 H 117 H Respiratory Rate 19 20 24 H Blood Pressure 130/99 H 150/109 H 152/94 H Pulse Oximetry 97 99 100 Oxygen Delivery Oxygen Flow Rate Fraction of Inspired Oxygen 03/28/24 20:00 03/28/24 20:30 03/28/24 22:00 Temperature Pulse Rate 117 H 112 H Respiratory Rate Blood Pressure Pulse Oximetry 98 Oxygen Delivery Nasal Cannula Oxygen Flow Rate 2 Fraction of Inspired Oxygen 03/28/24 22:54 03/28/24 23:24 03/29/24 00:00 Temperature 98.5 F 98.5 F Pulse Rate 115 H 115 H 116 H Respiratory Rate 23 H 23 H Blood Pressure 144/98 H 144/98 H Pulse Oximetry 98 98 Oxygen Delivery Oxygen Flow Rate Fraction of Inspired Oxygen 03/29/24 00:25 03/29/24 02:00 03/29/24 03:47 Temperature 99.2 F Pulse Rate 103 H 98 Respiratory Rate 14 Blood Pressure 135/89 Pulse Oximetry 99 97 Oxygen Delivery Nasal Cannula Oxygen Flow Rate 2 Fraction of Inspired Oxygen 03/29/24 04:00 03/29/24 04:00 03/29/24 06:00 Temperature Pulse Rate 109 H 101 H Respiratory Rate Blood Pressure Pulse Oximetry 98 Oxygen Delivery Nasal Cannula Oxygen Flow Rate 2 Fraction of Inspired Oxygen 03/29/24 08:00 03/29/24 08:00 03/29/24 08:00 Temperature 98.5 F Pulse Rate 103 H 95 Respiratory Rate 12 Blood Pressure 130/83 Pulse Oximetry 97 99 Oxygen Delivery Nasal Cannula Oxygen Flow Rate 2 Fraction of Inspired Oxygen 03/29/24 09:13 03/29/24 10:00 03/29/24 12:00 Temperature 98.4 F Pulse Rate 90 104 H Respiratory Rate 16 Blood Pressure 127/81 Pulse Oximetry 98 97 Oxygen Delivery Nasal Cannula Oxygen Flow Rate 2 Fraction of Inspired Oxygen 28 Intake/Output Intake/Output: Intake & Output 03/26/24 03/27/24 03/28/24 03/29/24 23:59 23:59 23:59 23:59 Intake Total 2100 1740 Output Total 500 500 Balance 1600 1240 Meds/Results Medications: Active Medications Generic Name Dose Route Start Last Admin Trade Name Freq PRN Reason Stop Dose Admin Acetaminophen 650 mg 03/28/24 18:46 Acetaminophen 325 Mg Tablet PO Q4H PRN Mild Pain (1-3) or Fever Albuterol 2 puff 03/28/24 21:04 Albuterol Sulfate (*Sp) Aerosol 1 Puff INHALATION Q6H PRN shortness of breath or wheezing Amitriptyline HCl 25 mg 03/29/24 21:00 Amitriptyline Hcl 25 Mg Tablet PO HS ALIX Amlodipine Besylate 10 mg 03/29/24 21:00 Amlodipine Besylate 10 Mg Tablet PO HS ALIX Dextrose 12.5 gm 03/28/24 18:46 Dextrose 50% 25 Gm/50 Ml Syringe IV PUSH PRN PRN Hypoglycemia Protocol Docusate Sodium 100 mg 03/29/24 09:00 03/29/24 09:22 Docusate Sodium 100 Mg Capsule PO 100 mg BID ALIX Administration Enoxaparin Sodium 40 mg 03/29/24 09:00 03/29/24 09:21 Enoxaparin 40 Mg/0.4 Ml Syringe SUB-Q 40 mg DAILY ALIX Administration Glucagon 1 mg 03/28/24 18:46 Glucagon For Inj 1 Mg Vial IM PRN PRN Hypoglycemia Protocol Glucose 15 gm 03/28/24 18:46 Glucose Oral Gel 15 Gm Of Glucse In 37.5 Gm Tube PO PRN PRN Hypoglycemia Protocol Hydromorphone HCl 0.5 mg 03/28/24 17:16 03/29/24 11:04 Hydromorphone Hcl Inj (*Crx) 1 Mg/Ml Syr IV PUSH 0.5 mg Q4H PRN Administration Pain Rated 7-10 Levofloxacin/Dextrose 750 mg in 150 mls @ 100 mls/hr 03/29/24 21:00 Levaquin 750 Mg/D5w 150 Ml IVPB Q24H ALIX Metronidazole 500 mg in 100 mls @ 100 mls/hr 03/29/24 00:00 03/29/24 07:55 Flagyl 500 Mg/Iso Soln 100 Ml IVPB Infused Q8HR ALIX Infusion Sodium Chloride 1,000 mls @ 125 mls/hr 03/28/24 17:20 03/29/24 06:31 Normal Saline Iv IV CONT 125 mls/hr .Q8H ALIX Administration Dextrose 1,000 mls @ 100 mls/hr 03/28/24 18:46 Dextrose 5% 1,000 Ml IVPB PRN PRN Hypoglycemia Protocol Insulin Aspart 2 - 5 units 03/29/24 00:00 03/29/24 12:01 Insulin Aspart (*Bkc) 100 Units/Ml SUB-Q Not Given Q6HR ALIX Protocol Ketorolac Tromethamine 15 mg 03/28/24 21:10 03/29/24 12:04 Ketorolac 15 Mg/Ml Vial (*Bkc) IV PUSH 15 mg Q6HR ALIX Administration Ondansetron HCl 4 mg 03/28/24 17:16 03/29/24 06:33 Ondansetron Inj 4 Mg/2 Ml Vial IV PUSH 4 mg Q4H PRN Administration Nausea Pantoprazole Sodium 40 mg 03/29/24 09:00 03/29/24 09:22 Pantoprazole Sodium Iv 40 Mg Vial IV PUSH 40 mg QAM ALIX Administration Polyethylene Glycol 17 gm 03/29/24 09:00 03/29/24 09:22 Polyethylene Glycol 3350 17 Gm Powd.Pack PO 17 gm BID ALIX Administration Senna/Docusate Sodium 1 tab 03/29/24 09:00 03/29/24 09:22 Senna/Docusate Sodium Tablet PO 1 tab BID ALIX Administration Radiology Results: ITS Impressions Abdomen/Pelvis CT 03/28/24 14:30 IMPRESSION: 1. Postoperative change of recent lap scopic cholecystectomy with small amount of residual nonloculated fluid at the gallbladder fossa and in the deep pelvis. No organized abscess. Chest CTA 03/28/24 15:31 IMPRESSION: 1. Bilateral groundglass appearance in the lung bases which may indicate early pneumonia. Follow-up advised. 2. Status post cholecystectomy with soft tissue density in the area of the gallbladder bed. Clinical correlation advised. Labs Labs: Laboratory Results - last 24 hr 03/28/24 03/28/24 03/28/24 13:20 14:34 19:40 WBC 11.1 H RBC 4.99 Hgb 14.3 Hct 43.6 MCV 87.4 MCH 28.7 MCHC 32.8 RDW 12.4 Plt Count 323 MPV 9.4 Immature Gran % (Auto) 0.7 H Neut % (Auto) 68.5 Lymph % (Auto) 20.1 [place] % (Auto) 8.6 H Eos % (Auto) 1.6 Baso % (Auto) 0.5 Lymph # (Auto) 2.22 [place] # (Auto) 1.0 H Eos # (Auto) 0.2 Baso # (Auto) 0.1 Abs Immat Gran (auto) 0.08 H Absolute Neuts (auto) 7.6 H Absolute Nucleated RBC 0.000 Nucleated RBC % 0.0 PT 13.1 INR 1.0 APTT 31.7 Sodium 139 Potassium 4.0 Chloride 104 Carbon Dioxide 27 Anion Gap 8 BUN 8 L Creatinine 0.90 Estim Creat Clear Calc 141 Estimated GFR > 60 Glucose 119 H POC Capillary Glucose 108 H Lactic Acid 1.1 Calcium 9.9 Total Bilirubin 0.9 AST 31 ALT 44 Alkaline Phosphatase 78 Total Protein 9.0 H Albumin 5.0 Lipase 83 Urine Color Urine Appearance Urine pH Ur Specific [place] Urine Protein Urine Glucose (UA) Urine Ketones Ur Blood (Man) Urine Nitrate Urine Bilirubin Urine Urobilinogen Ur Leukocyte Esterase 03/28/24 03/28/24 03/28/24 21:52 23:10 23:41 WBC RBC Hgb Hct MCV MCH MCHC RDW Plt Count MPV Immature Gran % (Auto) Neut % (Auto) Lymph % (Auto) [place] % (Auto) Eos % (Auto) Baso % (Auto) Lymph # (Auto) [place] # (Auto) Eos # (Auto) Baso # (Auto) Abs Immat Gran (auto) Absolute Neuts (auto) Absolute Nucleated RBC Nucleated RBC % PT INR APTT Sodium 134 L Potassium 3.8 Chloride 103 Carbon Dioxide 29 Anion Gap 2 L BUN 7 L Creatinine 0.70 Estim Creat Clear Calc 184 Estimated GFR > 60 Glucose 114 H POC Capillary Glucose 99 Lactic Acid Calcium 9.0 Total Bilirubin 0.8 AST 32 ALT 44 Alkaline Phosphatase 71 Total Protein 8.0 Albumin 4.2 Lipase 68 Urine Color Yellow Urine Appearance Clear Urine pH 7.0 Ur Specific [place] 1.037 H Urine Protein Negative Urine Glucose (UA) Negative Urine Ketones Trace H Ur Blood (Man) Negative Urine Nitrate Negative Urine Bilirubin Negative Urine Urobilinogen 1.0 Ur Leukocyte Esterase Negative 03/29/24 03/29/24 03/29/24 04:40 06:53 11:48 WBC 7.6 RBC 4.39 L Hgb 12.7 L Hct 39.3 L MCV 89.5 MCH 28.9 MCHC 32.3 RDW 12.2 Plt Count 246 MPV 9.2 Immature Gran % (Auto) 0.7 H Neut % (Auto) 60.1 Lymph % (Auto) 23.5 [place] % (Auto) 11.5 H Eos % (Auto) 3.7 Baso % (Auto) 0.5 Lymph # (Auto) 1.78 [place] # (Auto) 0.9 H Eos # (Auto) 0.3 Baso # (Auto) 0.0 Abs Immat Gran (auto) 0.05 H Absolute Neuts (auto) 4.6 Absolute Nucleated RBC 0.000 Nucleated RBC % 0.0 PT INR APTT Sodium Potassium Chloride Carbon Dioxide Anion Gap BUN Creatinine Estim Creat Clear Calc Estimated GFR Glucose POC Capillary Glucose 101 96 Lactic Acid Calcium Total Bilirubin AST ALT Alkaline Phosphatase Total Protein Albumin Lipase Urine Color Urine Appearance Urine pH Ur Specific [place] Urine Protein Urine Glucose (UA) Urine Ketones Ur Blood (Man) Urine Nitrate Urine Bilirubin Urine Urobilinogen Ur Leukocyte Esterase Quality VTE Prophylaxis VTE prophylaxis: mechanical ordered and pharmacologic ordered
--- NOTE | 2024-03-29 12:59 | PM.CNGS ---
Assessment and Plan Assessment and plan (1) Abdominal pain, acute, right upper quadrant: Code(s): R10.11 - Right upper quadrant pain Status: Acute Assessment and Plan: Started about 5 days after surgery and has gotten worse. Pain is mostly in the right flank but does hurt to take a deep breath. Liver enzymes are normal[place] [id number] scan abdomen and pelvis showed no significant collection or abscess to suggest a source of the pain. Hepatobiliary scan without CCK has been ordered and will be done later today. Continue IV antibiotics with Levaquin and metronidazole as well as pain medication. If patient does have a bile leak, he will need to be transferred where Gastroenterology Services and ERCP are available. 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 His CT scan was read as a gallstone obstructing the neck of the gallbladder. His ultrasound was consistent with cholecystitis but did not show gallstones. He underwent laparoscopic cholecystectomy on 03/21/[address] Gleason. He was able to be discharged the following day. At home he did well until 3 days ago when he started having some right flank pain. This was mild at 1st but got worse. He noticed that it is painful when he tried to take a deep breath. He eventually came to the emergency room yesterday. He was afebrile but did have tenderness in the right upper quadrant. [place] [address]. [place] scan of the abdomen and pelvis was essentially negative for postop condition. There was suggestion of a right lower lobe pneumonia as a possibility. He had a CTA as well and this showed some soft tissue density in the area of the gallbladder bed. His liver enzymes were completely normal. Pathology showed acute acalculous cholecystitis. Today, the patient continues to have right flank pain. He is taking pain medication which does help but the pain is bad marginally improved from when he came to the emergency room. He reports he also does have some shortness of breath and is currently on 2 L O2 per nasal cannula but his O2 sats have never been lower than 97%. Due to the negative CT scan and the possibility of pneumonia as the diagnosis, patient has been admitted to the hospitalist. HIDA scan has been ordered but is pending to evaluate for bile leak. Review of Systems Review of Systems: All systems reviewed & are unremarkable except as noted in HPI and below (HPI) Constitutional: Constitutional: Denies chills, Reports daytime sleepiness, Denies fever(s), Reports lethargy, Reports poor appetite and Reports weight gain (Morbid obesity with BMI 46.2) Cardiovascular: Cardiovascular: Reports other (Essential hypertension) Respiratory: Respiratory: Reports other (History asthma) Gastrointestinal: Gastrointestinal: Reports as per HPI, Reports abdominal pain, Reports constipation (Chronic, takes Linzess), Denies vomiting and Reports other (Takes Protonix for gastroesophageal reflux disease) Endocrine: Comments: [id number] diabetic, on metformin [facility] Past Medical History Medical History (Updated 03/29/24 @ 13:19 by Pérez Chambers MD) Diabetes Anxiety Depression Back pain Ankle fracture Hand fracture, right Vertebral fracture hairline thoracic vertebra fracture UTI (urinary tract infection) Kidney stones GI bleed GERD (gastroesophageal reflux disease) IBS (irritable bowel syndrome) History of rectal polyps Pancreatitis Ulcerative colitis Pneumonia Bronchitis Asthma HTN (hypertension) Surgical History Surgical History (Updated 03/29/24 @ 13:16 by Pérez Chambers MD) History of laparoscopic cholecystectomy 03/21/2024 Hx laparoscopic cholecystectomy Hx of tonsillectomy Family History Family History Father Lung cancer Grandparent Carcinoma of colon Pancreatic cancer Sibling Testicular cancer Social History Social History Social History: Caffeine-daily Smoking packs per day: 0.5 Smoking cigarettes per day: 10.0 Years smoked: 2 Smoking pack-years: 1.00 Smoking status: Never smoker Tobacco type: cigarettes Additional smoking assessment comments: STOPPED SMOKING 2009 Alcohol intake: current Drinks per week: 1 Alcohol use details: socially Substance use: never Substance use type: marijuana Last use: 5 YRS Do You Feel Safe in your Home?: Yes Lack of Transportation: No Lack of Food: Never True Current Housing: I Have Housing Concerned About Future Housing: No Difficulty Paying Gas/Electric Bills: No Difficulty Paying for Meds: No Currently Unemployed: No Education: Associate Degree Difficulty w/ Childcare or Family Care: No Living arrangements: with family Occupation/Education: occupation 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[employer] Gender identity (if verbalized by the patient): Male Spiritual care concerns: No Meds Home Medications and Allergies Home Medications ?Medication ?Instructions ?Recorded ?Confirmed ?Type pantoprazole 40 mg tablet,delayed 40 mg PO HS 03/05/23 03/28/24 History release loratadine 10 mg tablet (Claritin) 10 mg PO HS 10/18/23 03/28/24 History amitriptyline 25 mg tablet 25 mg PO HS 02/17/24 03/28/24 History amlodipine 10 mg tablet 10 mg PO HS 02/17/24 03/28/24 History cholecalciferol (vitamin D3) 25 25 mcg PO HS 02/17/24 03/28/24 History mcg (1,000 unit) tablet simethicone 125 mg chewable tablet 125 mg PO QID PRN abdominal 02/17/24 03/28/24 History (Gas Relief Extra Strength) distention albuterol sulfate 90 mcg/actuation 2 puff inhalation Q6H PRN 03/20/24 03/28/24 History aerosol inhaler shortness of breath or wheezing linaclotide 145 mcg capsule 145 mcg PO DAILY 03/20/24 03/28/24 History (Linzess) metformin 500 mg tablet 500 mg PO BID 03/28/24 03/28/24 History Allergies Allergy/AdvReac Type Severity Reaction Status Date / Time morphine Allergy Unknown SEIZURE Verified 03/20/24 23:47 lisinopril AdvReac Unknown Cough Verified 03/20/24 23:47 Vital Signs Vital Signs - 24 hr 03/28/24 14:27 03/28/24 15:39 03/28/24 17:23 Temperature Pulse Rate 128 H 117 H 115 H Respiratory Rate 31 H 21 H 19 Blood Pressure 149/90 H 130/87 130/99 H Pulse Oximetry 94 98 97 Oxygen Delivery Oxygen Flow Rate Fraction of Inspired Oxygen 03/28/24 18:45 03/28/24 19:37 03/28/24 20:00 Temperature 36.7 C 37.1 C Pulse Rate 119 H 117 H 117 H Respiratory Rate 20 24 H Blood Pressure 150/109 H 152/94 H Pulse Oximetry 99 100 Oxygen Delivery Oxygen Flow Rate Fraction of Inspired Oxygen 03/28/24 20:30 03/28/24 22:00 03/28/24 22:54 Temperature 36.9 C Pulse Rate 112 H 115 H Respiratory Rate 23 H Blood Pressure 144/98 H Pulse Oximetry 98 98 Oxygen Delivery Nasal Cannula Oxygen Flow Rate 2 Fraction of Inspired Oxygen 03/28/24 23:24 03/29/24 00:00 03/29/24 00:25 Temperature 36.9 C Pulse Rate 115 H 116 H Respiratory Rate 23 H Blood Pressure 144/98 H Pulse Oximetry 98 99 Oxygen Delivery Nasal Cannula Oxygen Flow Rate 2 Fraction of Inspired Oxygen 03/29/24 02:00 03/29/24 03:47 03/29/24 04:00 Temperature 37.3 C Pulse Rate 103 H 98 109 H Respiratory Rate 14 Blood Pressure 135/89 Pulse Oximetry 97 Oxygen Delivery Oxygen Flow Rate Fraction of Inspired Oxygen 03/29/24 04:00 03/29/24 06:00 03/29/24 08:00 Temperature 36.9 C Pulse Rate 101 H 103 H Respiratory Rate 12 Blood Pressure 130/83 Pulse Oximetry 98 97 Oxygen Delivery Nasal Cannula Oxygen Flow Rate 2 Fraction of Inspired Oxygen 03/29/24 08:00 03/29/24 08:00 03/29/24 09:13 Temperature Pulse Rate 95 Respiratory Rate Blood Pressure Pulse Oximetry 99 98 Oxygen Delivery Nasal Cannula Nasal Cannula Oxygen Flow Rate 2 2 Fraction of Inspired Oxygen 28 03/29/24 10:00 03/29/24 12:00 03/29/24 12:00 Temperature 36.9 C Pulse Rate 90 104 H Respiratory Rate 16 Blood Pressure 127/81 Pulse Oximetry 97 99 Oxygen Delivery Nasal Cannula Oxygen Flow Rate 2 Fraction of Inspired Oxygen 03/29/24 12:00 Temperature Pulse Rate 101 H Respiratory Rate Blood Pressure Pulse Oximetry Oxygen Delivery Oxygen Flow Rate Fraction of Inspired Oxygen Exam Const: General: cooperative, no acute distress, alert, awake, tired appearing, uncomfortable and obese Nutritional Appearance: obese Orientation/consciousness: No confusion HENMT: Head: normocephalic and atraumatic Mouth: Yes Normal oral and palatal mucosa present Eyes: Conjunctivae: conjunctivae normal Pupils: Equal, round and reactive pupils present EOM: EOMs intact bilaterally Neck: Neck: normal visual inspection, no lymphadenopathy and nontender Resp: Effort & Inspection: normal respiratory effort Auscultation: clear to auscultation bilaterally Cardio: Rate: regular rate Rhythm: regular rhythm Heart sounds: no gallops, no murmurs and no rubs GI: Inspection: no abdominal wall ecchymosis, incision (Dry and healing well), obesity and no visible herniation GI Palp: Yes Soft to palpation, Yes Tenderness to palpation present (GI) (Right flank and right upper quadrant with mild guarding), No Hepatosplenomegaly present, No Hernia present and No Palpable mass present Auscultation: Hypoactive bowel sounds present Skin: Lesions: no lesions Rashes: no rashes Neuro: General: moves all extremities, no focal motor deficits and CN's II-XI intact bilaterally Cranial nerves: Yes Equal, round and reactive pupils present, Yes Bilaterally intact EOM present, Yes facial symmetry and Yes Midline tongue present Speech: normal speech Motor exam (neuro): 5/5 motor strength present throughout and Motor abnormalities not present Extrem: General: no clubbing, cyanosis or edema and edema Psych: Speech and movement: Clear speech present Affect: normal affect Attitude: cooperative Thought process: Normal thought process present Thought content: Yes Normal thought content present Insight: Good insight present (Psych) Results Labs 03/29/24 04:40 03/28/24 21:52 Labs: Abnormal lab results 03/28/24 03/28/24 03/28/24 Range/Units 13:20 19:40 21:52 WBC 11.1 H (4.5-10.0) K/mm3 RBC (4.6-6.20) M/mm3 Hgb (14.0-18.0) g/dL Hct (42.0-52.0) % Immature Gran % (Auto) 0.7 H (0-0.5) % [place] % (Auto) 8.6 H (2.6-8.5) % [place] # (Auto) 1.0 H (0.1-0.6) K/mm3 Abs Immat Gran (auto) 0.08 H (0.00-0.031) K/mm3 Absolute Neuts (auto) 7.6 H (1.3-6.7) K/mm3 Sodium 134 L (137-145) mmol/L Anion Gap 2 L (4-12) mmol/L BUN 8 L 7 L (9-20) mg/dL Glucose 119 H 114 H (65-110) mg/dL POC Capillary Glucose 108 H (65-105) mg/dl Total Protein 9.0 H (6.3-8.2) g/dL Ur Specific [place] (1.001-1.035) Urine Ketones (Negative) mg/dL 03/28/24 03/29/24 Range/Units 23:41 04:40 WBC (4.5-10.0) K/mm3 RBC 4.39 L (4.6-6.20) M/mm3 Hgb 12.7 L (14.0-18.0) g/dL Hct 39.3 L (42.0-52.0) % Immature Gran % (Auto) 0.7 H (0-0.5) % [place] % (Auto) 11.5 H (2.6-8.5) % [place] # (Auto) 0.9 H (0.1-0.6) K/mm3 Abs Immat Gran (auto) 0.05 H (0.00-0.031) K/mm3 Absolute Neuts (auto) (1.3-6.7) K/mm3 Sodium (137-145) mmol/L Anion Gap (4-12) mmol/L BUN (9-20) mg/dL Glucose (65-110) mg/dL POC Capillary Glucose (65-105) mg/dl Total Protein (6.3-8.2) g/dL Ur Specific [place] 1.037 H (1.001-1.035) Urine Ketones Trace H (Negative) mg/dL Diabetes panel 03/28/24 03/28/24 Range/Units 13:20 21:52 Sodium 139 134 L (137-145) mmol/L Potassium 4.0 3.8 (3.4-5.0) mmol/L Chloride 104 103 (98-107) mmol/L Carbon Dioxide 27 29 (22-30) mmol/L BUN 8 L 7 L (9-20) mg/dL Creatinine 0.90 0.70 (0.7-1.3) mg/dL Glucose 119 H 114 H (65-110) mg/dL Calcium 9.9 9.0 (8.4-10.2) mg/dL AST 31 32 (17-59) U/L ALT 44 44 (6-50) U/L Alkaline Phosphatase 78 71 (38-126) U/L Total Protein 9.0 H 8.0 (6.3-8.2) g/dL Albumin 5.0 4.2 (3.5-5.1) g/dL Calcium panel 03/28/24 03/28/24 Range/Units 13:20 21:52 Calcium 9.9 9.0 (8.4-10.2) mg/dL Albumin 5.0 4.2 (3.5-5.1) g/dL Pituitary panel 03/28/24 03/28/24 Range/Units 13:20 21:52 Sodium 139 134 L (137-145) mmol/L Potassium 4.0 3.8 (3.4-5.0) mmol/L Chloride 104 103 (98-107) mmol/L Carbon Dioxide 27 29 (22-30) mmol/L BUN 8 L 7 L (9-20) mg/dL Creatinine 0.90 0.70 (0.7-1.3) mg/dL Glucose 119 H 114 H (65-110) mg/dL Calcium 9.9 9.0 (8.4-10.2) mg/dL Adrenal panel 03/28/24 03/28/24 Range/Units 13:20 21:52 Sodium 139 134 L (137-145) mmol/L Potassium 4.0 3.8 (3.4-5.0) mmol/L Chloride 104 103 (98-107) mmol/L Carbon Dioxide 27 29 (22-30) mmol/L BUN 8 L 7 L (9-20) mg/dL Creatinine 0.90 0.70 (0.7-1.3) mg/dL Glucose 119 H 114 H (65-110) mg/dL Calcium 9.9 9.0 (8.4-10.2) mg/dL Total Bilirubin 0.9 0.8 (0.2-1.3) mg/dL AST 31 32 (17-59) U/L ALT 44 44 (6-50) U/L Alkaline Phosphatase 78 71 (38-126) U/L Total Protein 9.0 H 8.0 (6.3-8.2) g/dL Albumin 5.0 4.2 (3.5-5.1) g/dL All other labs normal. Imaging Abdomen CT scan report/results: report reviewed and image reviewed CT scan - chest: report reviewed and image reviewed CT scan - pelvis: report reviewed and image reviewed
[2024-03-29] MEDS: ACETAMINOPHEN 325 MG TABLET 650 MG PO (13:54)
--- NOTE | 2024-03-29 14:23 | P.PSYCH_ITS ---
HPI Data of Consult Date/Time: 03/29/24 14:23 Requesting Physician: Kym Delaney MD Primary Care Provider: PHYSICIAN NOT ON STAFF Consult Narrative Narrative: Curbside Psychiatric Consultation: Patient chart was reviewed. Patient was not seen. Neither the patient or the patient's insurance will be billed Oscar Rehman is a 38 year old male whose Psychiatric consult was written because patient was designated on the [place] Sucide Severity Rating Scale to be a moderate risk for suicide but without clearly documented reason. He had a cholecystectomy about a week ago and was readmitted yesterday, 03/28/2024. In the H&P and the Progress Notes at the last hospitalization last week and at this hospitalization, the patient's Psychiatric review of systems and physical exam findings were all normal. No mention of any Psychiatric signs or symptoms were documented in the two HPI's, or in the Progress Note Interval Histories. The nurse's note today indicated: Notified Dr. Delaney of patient being moderate risk on Suicide screening. I spoke with patient and he states he had thoughts of harming himself 10 years ago but none now. I notified Dr. Delaney of this. he ordered a psych consult. Order put in for a psych consult. . At this hospitalization [place] Suicide Serverity Rating Scale, it clearly indicates: no additional intervention is indicated. The patient is on no psychiatric medication other than amitriptyline 25 mg po q hs which is a low dose not used to treat depression or anxiety and more likely used in an off label indication for sleep or headaches. Although the [place] Suicide screening documented that Moderate Risk was auto calculated, no evidence was documented to support such a finding. The Psychiatric Consult was called to me around 10:00 AM today, 03/29/2024 by the Solar Water Heater Installer. I asked her to have the Physician, Nurse Practitioner, or Physician Professor Of Public Administration who called for the consult to call report to me after having reviewed that patient's chart and after the patient exam. At this time, no report has been called to me. After reviewing the patient chart as mentioned above, insufficient evidence is present to support a Psychiatric Consult. However, with that said, I stand ready to provide either curbside Psychiatric Consult; or to provide a direct patient contact with full formal Psychiatric consultation in person if preferred. Please call report to me if such consultation would still be preferred. [facility] Past Medical History Medical History (Updated 03/29/24 @ 13:19 by Pérez Chambers MD) Diabetes Anxiety Depression Back pain Ankle fracture Hand fracture, right Vertebral fracture hairline thoracic vertebra fracture UTI (urinary tract infection) Kidney stones GI bleed GERD (gastroesophageal reflux disease) IBS (irritable bowel syndrome) History of rectal polyps Pancreatitis Ulcerative colitis Pneumonia Bronchitis Asthma HTN (hypertension) Surgical History Surgical History (Updated 03/29/24 @ 13:16 by Pérez Chambers MD) History of laparoscopic cholecystectomy 03/21/2024 Hx laparoscopic cholecystectomy Hx of tonsillectomy Family History Family History Father Lung cancer Grandparent Carcinoma of colon Pancreatic cancer Sibling Testicular cancer Social History Social History Social History: Caffeine-daily Smoking packs per day: 0.5 Smoking cigarettes per day: 10.0 Years smoked: 2 Smoking pack-years: 1.00 Smoking status: Never smoker Tobacco type: cigarettes Additional smoking assessment comments: STOPPED SMOKING 2009 Alcohol intake: current Drinks per week: 1 Alcohol use details: socially Substance use: never Substance use type: marijuana Last use: 5 YRS Do You Feel Safe in your Home?: Yes Lack of Transportation: No Lack of Food: Never True Current Housing: I Have Housing Concerned About Future Housing: No Difficulty Paying Gas/Electric Bills: No Difficulty Paying for Meds: No Currently Unemployed: No Education: Associate Degree Difficulty w/ Childcare or Family Care: No Living arrangements: with family Occupation/Education: occupation 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[employer] Gender identity (if verbalized by the patient): Male Spiritual care concerns: No Meds Home Medications and Allergies Home Medications ?Medication ?Instructions ?Recorded ?Confirmed ?Type pantoprazole 40 mg tablet,delayed 40 mg PO HS 03/05/23 03/28/24 History release loratadine 10 mg tablet (Claritin) 10 mg PO HS 10/18/23 03/28/24 History amitriptyline 25 mg tablet 25 mg PO HS 02/17/24 03/28/24 History amlodipine 10 mg tablet 10 mg PO HS 02/17/24 03/28/24 History cholecalciferol (vitamin D3) 25 25 mcg PO HS 02/17/24 03/28/24 History mcg (1,000 unit) tablet simethicone 125 mg chewable tablet 125 mg PO QID PRN abdominal 02/17/24 03/28/24 History (Gas Relief Extra Strength) distention albuterol sulfate 90 mcg/actuation 2 puff inhalation Q6H PRN 03/20/24 03/28/24 History aerosol inhaler shortness of breath or wheezing linaclotide 145 mcg capsule 145 mcg PO DAILY 03/20/24 03/28/24 History (Linzess) metformin 500 mg tablet 500 mg PO BID 03/28/24 03/28/24 History Allergies Allergy/AdvReac Type Severity Reaction Status Date / Time morphine Allergy Unknown SEIZURE Verified 03/20/24 23:47 lisinopril AdvReac Unknown Cough Verified 03/20/24 23:47 Vital Signs Vital Signs - 24 hr 03/28/24 14:27 03/28/24 15:39 03/28/24 17:23 Temperature Pulse Rate 128 H 117 H 115 H Respiratory Rate 31 H 21 H 19 Blood Pressure 149/90 H 130/87 130/99 H Pulse Oximetry 94 98 97 Oxygen Delivery Oxygen Flow Rate Fraction of Inspired Oxygen 03/28/24 18:45 03/28/24 19:37 03/28/24 20:00 Temperature 98.1 F 98.7 F Pulse Rate 119 H 117 H 117 H Respiratory Rate 20 24 H Blood Pressure 150/109 H 152/94 H Pulse Oximetry 99 100 Oxygen Delivery Oxygen Flow Rate Fraction of Inspired Oxygen 03/28/24 20:30 03/28/24 22:00 03/28/24 22:54 Temperature 98.5 F Pulse Rate 112 H 115 H Respiratory Rate 23 H Blood Pressure 144/98 H Pulse Oximetry 98 98 Oxygen Delivery Nasal Cannula Oxygen Flow Rate 2 Fraction of Inspired Oxygen 03/28/24 23:24 03/29/24 00:00 03/29/24 00:25 Temperature 98.5 F Pulse Rate 115 H 116 H Respiratory Rate 23 H Blood Pressure 144/98 H Pulse Oximetry 98 99 Oxygen Delivery Nasal Cannula Oxygen Flow Rate 2 Fraction of Inspired Oxygen 03/29/24 02:00 03/29/24 03:47 03/29/24 04:00 Temperature 99.2 F Pulse Rate 103 H 98 109 H Respiratory Rate 14 Blood Pressure 135/89 Pulse Oximetry 97 Oxygen Delivery Oxygen Flow Rate Fraction of Inspired Oxygen 03/29/24 04:00 03/29/24 06:00 03/29/24 08:00 Temperature 98.5 F Pulse Rate 101 H 103 H Respiratory Rate 12 Blood Pressure 130/83 Pulse Oximetry 98 97 Oxygen Delivery Nasal Cannula Oxygen Flow Rate 2 Fraction of Inspired Oxygen 03/29/24 08:00 03/29/24 08:00 03/29/24 09:13 Temperature Pulse Rate 95 Respiratory Rate Blood Pressure Pulse Oximetry 99 98 Oxygen Delivery Nasal Cannula Nasal Cannula Oxygen Flow Rate 2 2 Fraction of Inspired Oxygen 28 03/29/24 10:00 03/29/24 12:00 03/29/24 12:00 Temperature 98.4 F Pulse Rate 90 104 H Respiratory Rate 16 Blood Pressure 127/81 Pulse Oximetry 97 99 Oxygen Delivery Nasal Cannula Oxygen Flow Rate 2 Fraction of Inspired Oxygen 03/29/24 12:00 Temperature Pulse Rate 101 H Respiratory Rate Blood Pressure Pulse Oximetry Oxygen Delivery Oxygen Flow Rate Fraction of Inspired Oxygen Results Labs 03/29/24 04:40 03/28/24 21:52 Labs: Short CBC 03/29/24 Range/Units 04:40 WBC 7.6 (4.5-10.0) K/mm3 Hgb 12.7 L (14.0-18.0) g/dL Hct 39.3 L (42.0-52.0) % Plt Count 246 (150-375) k/mm3 BMP 03/28/24 21:52 Sodium 134 L Potassium 3.8 Chloride 103 Carbon Dioxide 29 BUN 7 L Creatinine 0.70 Glucose 114 H Calcium 9.0 Liver Function 03/28/24 Range/Units 21:52 Total Bilirubin 0.8 (0.2-1.3) mg/dL AST 32 (17-59) U/L ALT 44 (6-50) U/L Alkaline Phosphatase 71 (38-126) U/L Albumin 4.2 (3.5-5.1) g/dL Urine 03/28/24 Range/Units 23:41 Urine Color Yellow (Yellow) Urine Appearance Clear (Clear) Urine pH 7.0 (5.0-9.0) Ur Specific [place] 1.037 H (1.001-1.035) Urine Protein Negative (Negative) mg/dL Urine Glucose (UA) Negative (Negative) mg/dL
--- NOTE | 2024-03-29 14:37 | PC.NURSE ---
Patient being transported to [facility] for [place] via stretcher.
--- NOTE | 2024-03-29 15:55 | PC.NURSE ---
Patient returned from [facility].
[2024-03-29 18:28] LABS: Glucose Point of Care 75 mg/dl (65-105)
[2024-03-29] MEDS: levoFLOXacin 750 MG/D5W 150 ML 750 MG/150 ML BAG 100 MG IVPB (20:56)
[2024-03-29] MEDS: AMITRIPTYLINE HCL 25 MG TABLET PO (21:02)
[2024-03-29] MEDS: amLODIPine BESYLATE 10 MG TABLET PO (21:02)
[2024-03-29 21:30] LABS: Glucose Point of Care 77 mg/dl (65-105)
[2024-03-30] VITALS (16 sets, daily range): BP systolic 134–152; BP diastolic 86–98; PULSE 94–120; RESP 16–22; TEMP 36.3–37.6; O2SAT 93–98
[2024-03-30 00:32] LABS: Glucose Point of Care 92 mg/dl (65-105)
[2024-03-30] MEDS: KETOROLAC 15 MG/ML VIAL (*BKC) IV PUSH ×2 (00:35→06:15)
[2024-03-30] MEDS: SODIUM CHLORIDE 0.9% IV 1,000 ML 125 ML IV CONT (04:20)
[2024-03-30] MEDS: HYDROmorphone HCL INJ (*CRX) 1 MG/ML SYR 0.5 MG IV PUSH ×2 (04:21→08:31)
[2024-03-30] MEDS: ONDANSETRON INJ 4 MG/2 ML VIAL IV PUSH ×2 (04:26→08:32)
[2024-03-30 04:56] LABS: Basophils Percent Auto 0.6 % (0.2-1.2); Eosinophils Absolute Auto 0.5 K/mm3 (0-0.3); Eosinophils Percent Auto 6.4 % (0-4.4); Hematocrit 39.6 % (42.0-52.0); Immature Granulocyte Absolute 0.06 K/mm3 (0.00-0.031); Immature Granulocyte Percent A 0.8 % (0-0.5); Lymphocytes Absolute Auto 1.64 K/mm3 (0.9-3.2); Lymphocytes Percent Auto 22.9 % (18.3-44.2); Mean Corpuscular HGB Conc 32.8 g/dl (32-36); Mean Corpuscular Hemoglobin 28.8 pg (26-34); Mean Corpuscular Volume 87.6 fl (80-100); Mean Platelet Volume 9.4 fl (7.4-10.4); Monocytes Absolute Auto 0.7 K/mm3 (0.1-0.6); Monocytes Percent Auto 9.8 % (2.6-8.5); Neutrophils Absolute Auto 4.3 K/mm3 (1.3-6.7); Neutrophils Percent Auto 59.5 % (45.5-73.1); Platelet Count Result 268 k/mm3 (150-375); Red Blood Count 4.52 M/mm3 (4.6-6.20); White Blood Count 7.2 K/mm3 (4.5-10.0)
[2024-03-30 05:12] LABS: Alanine Aminotransferase 75 U/L (6-50); Albumin Level 4.3 g/dL (3.5-5.1); Alkaline Phosphatase 106 U/L (38-126); Anion Gap 6 mmol/L (4-12); Aspartate Amino Transferase 47 U/L (17-59); Blood Urea Nitrogen 10 mg/dL (9-20); Calcium 9.3 mg/dL (8.4-10.2); Carbon Dioxide 29 mmol/L (22-30); Chloride 103 mmol/L (98-107); Estimated CRCL calculation 165 ml/min; Estimated Glomerular Filt Rate > 60; Glucose 83 mg/dL (65-110); Magnesium 1.7 mg/dL (1.6-2.3); Potassium 3.7 mmol/L (3.4-5.0); Sodium 138 mmol/L (137-145)
[2024-03-30] MEDS: metroNIDAZOLE 500 MG/ISO 100ML 500 MG/100 ML BAG 100 MG IVPB ×3 (06:15→22:10)
[2024-03-30] MEDS: ACETAMINOPHEN 325 MG TABLET 650 MG PO (06:16)
[2024-03-30 06:36] LABS: Glucose Point of Care 87 mg/dl (65-105)
[2024-03-30] MEDS: PANTOPRAZOLE SODIUM IV 40 MG VIAL IV PUSH (08:31)
[2024-03-30] MEDS: DOCUSATE SODIUM 100 MG CAPSULE PO ×2 (08:31→17:21)
[2024-03-30] MEDS: ENOXAPARIN 40 MG/0.4 ML SYRINGE SUB-Q (08:31)
[2024-03-30] MEDS: polyethylene glycoL 3350 17 GM POWD.PACK PO ×2 (08:31→17:21)
[2024-03-30] MEDS: SENNA/DOCUSATE SODIUM TABLET 1 TAB PO ×2 (08:31→17:21)
--- NOTE | 2024-03-30 11:30 | P.PNGS_ITS ---
Progress Note: A&P Assessment and Plan (1) Abdominal pain, acute, right upper quadrant: Code(s): R10.11 - Right upper quadrant pain Status: Acute Assessment and Plan: * Persistent RUQ abdominal pain following cholecystectomy. CT scan showed small fluid collection in the gallbladder fossa and possible bilateral pneumonia, negative for PE. HIDA scan negative for bile leak. Etiology not clear, but could be postoperative pain vs constipation vs pneumonia. No acute surgical issues. * Will advance to a low fat diet and stop his IV fluids * Continue Miralax and Senokot. Will also order an enema * Try transitioning to oral analgesics (2) History of laparoscopic cholecystectomy: Code(s): Z90.49 - Acquired absence of other specified parts of digestive tract Status: Acute Assessment and Plan: * S/p laparoscopic cholecystectomy on 03/21/2024. Pathology showed chronic cholecystitis (3) Acute acalculous cholecystitis: Code(s): K81.0 - Acute cholecystitis Status: Acute (4) BMI 45.0-49.9, adult: Code(s): Z68.42 - Body mass index [BMI] 45.0-49.9, adult Status: Chronic (5) Diabetes: Qualifiers: Diabetes mellitus type: type 2 Diabetes mellitus assistant terminal manager insulin use: without half-way use Diabetes mellitus complication status: without complication Qualified Code(s): E11.9 - Type 2 diabetes mellitus without comp lications Code(s): E11.9 - Type 2 diabetes mellitus without complications Status: Chronic Subjective Subjective Date/Time Seen: 03/30/24 11:30 Post Op day: 9 (Laparoscopic cholecystectomy) Patient reports: voiding w/o difficulty and afebrile Interval history: Chart reviewed. White blood cell count and LFTs normal. Patient is still having right upper quadrant pain that radiates to his right mid back. His pain is mild and constant, but is aggravated with deep breathing. He reports a dry intermittent cough that has been present even before surgery. He also reports chronic nausea, which is unchanged since the surgery. No new complaints overnight. Patient has only had 1 small bowel movement since surgery. This bowel movement was last . He does report he is passing some gas. He is receiving MiraLax and Senokot. He reports he feels like he needs to have a bowel movement. Exam Const: General: comfortable and no acute distress Orientation/consciousness: patient oriented x3 GI: Inspection: non-distended, incision (Dry and healing well, no erythema or drainage) and obesity GI Palp: Yes Soft to palpation, Yes Tenderness to palpation present (GI) (Mild right upper quadrant tenderness), No Guarding due to palpation present (GI) and No Rebound tenderness present Auscultation: normal bowel sounds Objective Data Vital Signs Vital Signs: Vital Signs - 24 hr 03/29/24 12:00 03/29/24 12:00 03/29/24 12:00 Temperature 98.4 F Pulse Rate 104 H 101 H Respiratory Rate 16 Blood Pressure 127/81 Pulse Oximetry 97 99 Oxygen Delivery Nasal Cannula Oxygen Flow Rate 2 03/29/24 14:00 03/29/24 16:00 03/29/24 16:00 Temperature Pulse Rate 104 H 108 H Respiratory Rate Blood Pressure Pulse Oximetry 99 Oxygen Delivery Nasal Cannula Oxygen Flow Rate 2 03/29/24 16:00 03/29/24 18:00 03/29/24 19:54 Temperature 98.1 F 97.9 F Pulse Rate 104 H 106 H 105 H Respiratory Rate 20 22 H Blood Pressure 132/91 H 147/93 H Pulse Oximetry 97 95 Oxygen Delivery Oxygen Flow Rate 03/29/24 20:00 03/29/24 21:00 03/29/24 22:00 Temperature Pulse Rate 107 H 115 H Respiratory Rate Blood Pressure Pulse Oximetry 95 Oxygen Delivery Nasal Cannula Oxygen Flow Rate 2 03/30/24 00:00 03/30/24 00:30 03/30/24 00:30 Temperature 98.7 F Pulse Rate 105 H 106 H Respiratory Rate 22 H Blood Pressure 134/90 Pulse Oximetry 95 98 Oxygen Delivery Nasal Cannula Oxygen Flow Rate 2 03/30/24 02:00 03/30/24 03:15 03/30/24 04:00 Temperature 99.6 F Pulse Rate 106 H 115 H 120 H Respiratory Rate 22 H Blood Pressure 152/86 H Pulse Oximetry 94 Oxygen Delivery Oxygen Flow Rate 03/30/24 04:20 03/30/24 06:00 03/30/24 06:16 Temperature 99.6 F Pulse Rate 105 H Respiratory Rate Blood Pressure Pulse Oximetry 98 Oxygen Delivery Nasal Cannula Oxygen Flow Rate 2 03/30/24 07:57 03/30/24 08:00 03/30/24 08:00 Temperature 98.3 F Pulse Rate 114 H 114 H 120 H Respiratory Rate 22 H 22 H Blood Pressure 140/92 H Pulse Oximetry 93 93 Oxygen Delivery Room Air Oxygen Flow Rate 03/30/24 08:05 03/30/24 10:00 Temperature Pulse Rate 109 H 94 Respiratory Rate Blood Pressure Pulse Oximetry Oxygen Delivery Oxygen Flow Rate Intake/Output Intake/Output: Intake & Output 03/27/24 03/28/24 03/29/24 03/30/24 23:59 23:59 23:59 23:59 Intake Total 2100 3330 2875 Output Total 500 500 1 Balance 1600 2830 2874 Meds/Results Medications: Active Medications Generic Name Dose Route Start Last Admin Trade Name Freq PRN Reason Stop Dose Admin Acetaminophen 650 mg 03/28/24 18:46 03/30/24 06:16 Acetaminophen 325 Mg Tablet PO 650 mg Q4H PRN Administration Mild Pain (1-3) or Fever Hydrocodone Bitart/Acetaminophen 1 tab 03/30/24 10:31 Hydrocodone/Acetaminophen (*Crx) 5-325 Mg Tablet PO Q4H PRN Pain Rated 4-6 Albuterol 2 puff 03/28/24 21:04 Albuterol Sulfate (*Sp) Aerosol 1 Puff INHALATION Q6H PRN shortness of breath or wheezing Amitriptyline HCl 25 mg 03/29/24 21:00 03/29/24 21:02 Amitriptyline Hcl 25 Mg Tablet PO 25 mg HS ALIX Administration Amlodipine Besylate 10 mg 03/29/24 21:00 03/29/24 21:02 Amlodipine Besylate 10 Mg Tablet PO 10 mg HS ALIX Administration Dextrose 12.5 gm 03/28/24 18:46 Dextrose 50% 25 Gm/50 Ml Syringe IV PUSH PRN PRN Hypoglycemia Protocol Docusate Sodium 100 mg 03/29/24 09:00 03/30/24 08:31 Docusate Sodium 100 Mg Capsule PO 100 mg BID ALIX Administration Enoxaparin Sodium 40 mg 03/29/24 09:00 03/30/24 08:31 Enoxaparin 40 Mg/0.4 Ml Syringe SUB-Q 40 mg DAILY ALIX Administration Glucagon 1 mg 03/28/24 18:46 Glucagon For Inj 1 Mg Vial IM PRN PRN Hypoglycemia Protocol Glucose 15 gm 03/28/24 18:46 Glucose Oral Gel 15 Gm Of Glucse In 37.5 Gm Tube PO PRN PRN Hypoglycemia Protocol Levofloxacin/Dextrose 750 mg in 150 mls @ 100 mls/hr 03/29/24 21:00 03/29/24 22:25 Levaquin 750 Mg/D5w 150 Ml IVPB Infused Q24H ALIX Infusion Metronidazole 500 mg in 100 mls @ 100 mls/hr 03/29/24 00:00 03/30/24 07:15 Flagyl 500 Mg/Iso Soln 100 Ml IVPB Infused Q8HR ALIX Infusion Sodium Chloride 1,000 mls @ 75 mls/hr 03/28/24 17:20 03/30/24 10:32 Normal Saline Iv IV CONT 75 mls/hr .[id number] ALIX Infusion Dextrose 1,000 mls @ 100 mls/hr 03/28/24 18:46 Dextrose 5% 1,000 Ml IVPB PRN PRN Hypoglycemia Protocol Insulin Aspart 2 - 5 units 03/29/24 00:00 03/30/24 06:22 Insulin Aspart (*Bkc) 100 Units/Ml SUB-Q Not Given Q6HR ALIX Protocol Ondansetron HCl 4 mg 03/28/24 17:16 03/30/24 08:32 Ondansetron Inj 4 Mg/2 Ml Vial IV PUSH 4 mg Q4H PRN Administration Nausea Pantoprazole Sodium 40 mg 03/29/24 09:00 03/30/24 08:31 Pantoprazole Sodium Iv 40 Mg Vial IV PUSH 40 mg QAM ALIX Administration Polyethylene Glycol 17 gm 03/29/24 09:00 03/30/24 08:31 Polyethylene Glycol 3350 17 Gm Powd.Pack PO 17 gm BID ALIX Administration Senna/Docusate Sodium 1 tab 03/29/24 09:00 03/30/24 08:31 Senna/Docusate Sodium Tablet PO 1 tab BID ALIX Administration Radiology Results: ITS Impressions Abdomen/Pelvis CT 03/28/24 14:30 IMPRESSION: 1. Postoperative change of recent lap scopic cholecystectomy with small amount of residual nonloculated fluid at the gallbladder fossa and in the deep pelvis. No organized abscess. Chest CTA 03/28/24 15:31 IMPRESSION: 1. Bilateral groundglass appearance in the lung bases which may indicate early pneumonia. Follow-up advised. 2. Status post cholecystectomy with soft tissue density in the area of the gallbladder bed. Clinical correlation advised. Hepatobiliary Scan Nuclear Medicine 03/29/24 17:23 Impression: 1: Normal hepatobiliary scan postcholecystectomy. Labs Labs: Laboratory Results - last 24 hr 03/29/24 03/29/24 03/29/24 11:48 18:08 21:07 WBC RBC Hgb Hct MCV MCH MCHC RDW Plt Count MPV Immature Gran % (Auto) Neut % (Auto) Lymph % (Auto) [place] % (Auto) Eos % (Auto) Baso % (Auto) Lymph # (Auto) [place] # (Auto) Eos # (Auto) Baso # (Auto) Abs Immat Gran (auto) Absolute Neuts (auto) Absolute Nucleated RBC Nucleated RBC % Sodium Potassium Chloride Carbon Dioxide Anion Gap BUN Creatinine Estim Creat Clear Calc Estimated GFR Glucose POC Capillary Glucose 96 75 77 Calcium Magnesium Total Bilirubin AST ALT Alkaline Phosphatase Total Protein Albumin 03/30/24 03/30/24 03/30/24 00:24 04:14 06:21 WBC 7.2 RBC 4.52 L Hgb 13.0 L Hct 39.6 L MCV 87.6 MCH 28.8 MCHC 32.8 RDW 12.0 Plt Count 268 MPV 9.4 Immature Gran % (Auto) 0.8 H Neut % (Auto) 59.5 Lymph % (Auto) 22.9 [place] % (Auto) 9.8 H Eos % (Auto) 6.4 H Baso % (Auto) 0.6 Lymph # (Auto) 1.64 [place] # (Auto) 0.7 H Eos # (Auto) 0.5 H Baso # (Auto) 0.0 Abs Immat Gran (auto) 0.06 H Absolute Neuts (auto) 4.3 Absolute Nucleated RBC 0.000 Nucleated RBC % 0.0 Sodium 138 Potassium 3.7 Chloride 103 Carbon Dioxide 29 Anion Gap 6 BUN 10 Creatinine 0.80 Estim Creat Clear Calc 165 Estimated GFR > 60 Glucose 83 POC Capillary Glucose 92 87 Calcium 9.3 Magnesium 1.7 Total Bilirubin 1.0 AST 47 ALT 75 H Alkaline Phosphatase 106 Total Protein 7.0 Albumin 4.3
[2024-03-30 12:44] LABS: Glucose Point of Care 91 mg/dl (65-105)
[2024-03-30] MEDS: HYDROcodone/acetaminophen (*CRX) 5-325 MG TABLET 1 TAB PO ×2 (14:58→23:11)
--- NOTE | 2024-03-30 15:30 | PC.NURSE ---
This patient, Oscar Rehman, was transferred to [[facility] ] on 03/30/24 at 1530. Personal belongings sent with patient. Report given to [JOVANNY Jones @ [phone] ]. Appropriate documentation sent with patient.
[2024-03-30 17:22] LABS: Glucose Point of Care 108 mg/dl (65-105)
--- NOTE | 2024-03-30 17:39 | PM.IMPN ---
Progress Note: A&P Assessment and Plan (1) Abdominal pain: Code(s): R10.9 - Unspecified abdominal pain Status: Inactive Assessment and Plan: Persistent RUQ pain s/p cholecystectomy 03/21/[address] AP no acute changes tolerating diet likely residual pain from surgery continue pO analgesic possible discharge tomorrow (2) Nausea & vomiting: Code(s): R11.2 - Nausea with vomiting, unspecified Status: Inactive Assessment and Plan: CT abdomen show no acute findings that explain nausea and vomiting resolved encourage PO intake (3) Pneumonia: Code(s): J18.9 - Pneumonia, unspecified organism Status: Acute Assessment and Plan: on levofloxacin and Flagyl Now on room air Aggressive pulmonary toileting (4) Leukocytosis: Code(s): D72.829 - Elevated white blood cell count, unspecified Status: Acute Assessment and Plan: No abscess seen on abdominal CT, Could be related to pneumonia UA pending Blood cultures pending (5) Tachycardia: Code(s): R00.0 - Tachycardia, unspecified Status: Acute Assessment and Plan: EKG showed sinus rhythm continue above are Pain management (6) Constipation: Code(s): K59.00 - Constipation, unspecified Status: Acute Assessment and Plan: Likely induced from narcotics from cholecystectomy Hold Linzess MiraLax, senna monitor (7) HTN (hypertension): Qualifiers: Hypertension type: primary hypertension Qualified Code(s): I10 - Essential (primary) hypertension Code(s): I10 - Essential (primary) hypertension Status: Acute Assessment and Plan: titrate home meds with clinical course (8) Diabetes: Qualifiers: Diabetes mellitus type: type 2 Diabetes mellitus terminal operations manager insulin use: without terminal operations manager use Diabetes mellitus complication status: without complication Qualified Code(s): E11.9 - Type 2 diabetes mellitus without complications Code(s): E11.9 - Type 2 diabetes mellitus without complications Status: Chronic Assessment and Plan: SSI with accucheks adjust with clinical course Plan DVT prophylaxis on Sq Lovenox Possible discharge tomorrow Subjective Date/time seen: 03/30/24 17:39 Interval history: Patient comfortable at bedside SUrgery recommended one more day and possibly discharge tomorrow Review of Systems Review of Systems: 12 systems were reviewed and are negative except for as per HPI. Exam Narrative: General: well appearing, appears stated age. HEENT: normocephalic, atraumatic. Mucous membranes moist. EOMI, PERRLA, bilateral sclera anicteric, no conjunctival injection. Neck supple without JVD, lymphadenopathy, or bruit. Respiratory: Diminished to ascultation bilaterally. No rales/rhonic/wheezes. Cardiovascular: Regular rate and rhythm, normal S1-S2 upon ascultation. No murmurs, rubs, or clicks. PMI is nondisplaced, capillary refill less than 3 second. Abdomen: Soft, round, no pulsatile masses, nondistended and nontender. No rebound, no guarding. No CVA tenderness, no hepatosplenomegaly. Bowel sounds present to all four quadrants. No high pitch or tinkling sounds, resonant to percussion. Extremities: No cyanosis, clubbing, or edema present. Pulses are palpable 2/2. Active ROM to all four extremities. Neuro: Alert and orientated x 4. PERRLA. Cranial nerves 2-12 intact without focal deficit. Skin: Warm, dry, and intact, without rash, erythema, or lesion. Psych: pleasant, cooperative, normal speech, normal affect, no hallucinations, no dysarthia Objective Data Vital Signs Vital Signs: Vital Signs - 24 hr 03/29/24 18:00 03/29/24 19:54 03/29/24 20:00 Temperature 97.9 F Pulse Rate 106 H 105 H 107 H Respiratory Rate 22 H Blood Pressure 147/93 H Pulse Oximetry 95 Oxygen Delivery Oxygen Flow Rate 03/29/24 21:00 03/29/24 22:00 03/30/24 00:00 Temperature Pulse Rate 115 H 105 H Respiratory Rate Blood Pressure Pulse Oximetry 95 Oxygen Delivery Nasal Cannula Oxygen Flow Rate 2 03/30/24 00:30 03/30/24 00:30 03/30/24 02:00 Temperature 98.7 F Pulse Rate 106 H 106 H Respiratory Rate 22 H Blood Pressure 134/90 Pulse Oximetry 95 98 Oxygen Delivery Nasal Cannula Oxygen Flow Rate 2 03/30/24 03:15 03/30/24 04:00 03/30/24 04:20 Temperature 99.6 F Pulse Rate 115 H 120 H Respiratory Rate 22 H Blood Pressure 152/86 H Pulse Oximetry 94 98 Oxygen Delivery Nasal Cannula Oxygen Flow Rate 2 03/30/24 06:00 03/30/24 06:16 03/30/24 07:57 Temperature 99.6 F 98.3 F Pulse Rate 105 H 114 H Respiratory Rate 22 H Blood Pressure 140/92 H Pulse Oximetry 93 Oxygen Delivery Oxygen Flow Rate 03/30/24 08:00 03/30/24 08:00 03/30/24 08:05 Temperature Pulse Rate 114 H 120 H 109 H Respiratory Rate 22 H Blood Pressure Pulse Oximetry 93 Oxygen Delivery Room Air Oxygen Flow Rate 03/30/24 10:00 03/30/24 11:49 03/30/24 12:00 Temperature 98.9 F Pulse Rate 94 118 H 118 H Respiratory Rate 20 20 Blood Pressure 139/98 H Pulse Oximetry 95 95 Oxygen Delivery Room Air Oxygen Flow Rate 03/30/24 12:00 Temperature Pulse Rate 117 H Respiratory Rate Blood Pressure Pulse Oximetry Oxygen Delivery Oxygen Flow Rate Intake/Output Intake/Output: Intake & Output 03/27/24 03/28/24 03/29/24 03/30/24 23:59 23:59 23:59 23:59 Intake Total 2100 3330 3340 Output Total 500 500 1 Balance 1600 2830 3339 Meds/Results Medications: Active Medications Generic Name Dose Route Start Last Admin Trade Name Freq PRN Reason Stop Dose Admin Acetaminophen 650 mg 03/28/24 18:46 03/30/24 06:16 Acetaminophen 325 Mg Tablet PO 650 mg Q4H PRN Administration Mild Pain (1-3) or Fever Hydrocodone Bitart/Acetaminophen 1 tab 03/30/24 10:31 03/30/24 14:58 Hydrocodone/Acetaminophen (*Crx) 5-325 Mg Tablet PO 1 tab Q4H PRN Administration Pain Rated 4-6 Albuterol 2 puff 03/28/24 21:04 Albuterol Sulfate (*Sp) Aerosol 1 Puff INHALATION Q6H PRN shortness of breath or wheezing Amitriptyline HCl 25 mg 03/29/24 21:00 03/29/24 21:02 Amitriptyline Hcl 25 Mg Tablet PO 25 mg HS ALIX Administration Amlodipine Besylate 10 mg 03/29/24 21:00 03/29/24 21:02 Amlodipine Besylate 10 Mg Tablet PO 10 mg HS ALIX Administration Dextrose 12.5 gm 03/28/24 18:46 Dextrose 50% 25 Gm/50 Ml Syringe IV PUSH PRN PRN Hypoglycemia Protocol Docusate Sodium 100 mg 03/29/24 09:00 03/30/24 17:21 Docusate Sodium 100 Mg Capsule PO 100 mg BID ALIX Administration Enoxaparin Sodium 40 mg 03/29/24 09:00 03/30/24 08:31 Enoxaparin 40 Mg/0.4 Ml Syringe SUB-Q 40 mg DAILY ALIX Administration Glucagon 1 mg 03/28/24 18:46 Glucagon For Inj 1 Mg Vial IM PRN PRN Hypoglycemia Protocol Glucose 15 gm 03/28/24 18:46 Glucose Oral Gel 15 Gm Of Glucse In 37.5 Gm Tube PO PRN PRN Hypoglycemia Protocol Levofloxacin/Dextrose 750 mg in 150 mls @ 100 mls/hr 03/29/24 21:00 03/29/24 22:25 Levaquin 750 Mg/D5w 150 Ml IVPB Infused Q24H ALIX Infusion Metronidazole 500 mg in 100 mls @ 100 mls/hr 03/29/24 00:00 03/30/24 15:26 Flagyl 500 Mg/Iso Soln 100 Ml IVPB Infused Q8HR ALIX Infusion Dextrose 1,000 mls @ 100 mls/hr 03/28/24 18:46 Dextrose 5% 1,000 Ml IVPB PRN PRN Hypoglycemia Protocol Insulin Aspart 2 - 5 units 03/30/24 17:00 03/30/24 17:23 Insulin Aspart (*Bkc) 100 Units/Ml SUB-Q Not Given TIDWM ALIX Protocol Pantoprazole Sodium 40 mg 03/29/24 09:00 03/30/24 08:31 Pantoprazole Sodium Iv 40 Mg Vial IV PUSH 40 mg QAM ALIX Administration Polyethylene Glycol 17 gm 03/29/24 09:00 03/30/24 17:21 Polyethylene Glycol 3350 17 Gm Powd.Pack PO 17 gm BID ALIX Administration Senna/Docusate Sodium 1 tab 03/29/24 09:00 03/30/24 17:21 Senna/Docusate Sodium Tablet PO 1 tab BID ALIX Administration Radiology Results: ITS Impressions Abdomen/Pelvis CT 03/28/24 14:30 IMPRESSION: 1. Postoperative change of recent lap scopic cholecystectomy with small amount of residual nonloculated fluid at the gallbladder fossa and in the deep pelvis. No organized abscess. Chest CTA 03/28/24 15:31 IMPRESSION: 1. Bilateral groundglass appearance in the lung bases which may indicate early pneumonia. Follow-up advised. 2. Status post cholecystectomy with soft tissue density in the area of the gallbladder bed. Clinical correlation advised. Hepatobiliary Scan Nuclear Medicine 03/29/24 17:23 Impression: 1: Normal hepatobiliary scan postcholecystectomy. Labs Labs: Laboratory Results - last 24 hr 03/29/24 03/29/24 03/30/24 18:08 21:07 00:24 WBC RBC Hgb Hct MCV MCH MCHC RDW Plt Count MPV Immature Gran % (Auto) Neut % (Auto) Lymph % (Auto) [place] % (Auto) Eos % (Auto) Baso % (Auto) Lymph # (Auto) [place] # (Auto) Eos # (Auto) Baso # (Auto) Abs Immat Gran (auto) Absolute Neuts (auto) Absolute Nucleated RBC Nucleated RBC % Sodium Potassium Chloride Carbon Dioxide Anion Gap BUN Creatinine Estim Creat Clear Calc Estimated GFR Glucose POC Capillary Glucose 75 77 92 Calcium Magnesium Total Bilirubin AST ALT Alkaline Phosphatase Total Protein Albumin 03/30/24 03/30/24 03/30/24 04:14 06:21 11:48 WBC 7.2 RBC 4.52 L Hgb 13.0 L Hct 39.6 L MCV 87.6 MCH 28.8 MCHC 32.8 RDW 12.0 Plt Count 268 MPV 9.4 Immature Gran % (Auto) 0.8 H Neut % (Auto) 59.5 Lymph % (Auto) 22.9 [place] % (Auto) 9.8 H Eos % (Auto) 6.4 H Baso % (Auto) 0.6 Lymph # (Auto) 1.64 [place] # (Auto) 0.7 H Eos # (Auto) 0.5 H Baso # (Auto) 0.0 Abs Immat Gran (auto) 0.06 H Absolute Neuts (auto) 4.3 Absolute Nucleated RBC 0.000 Nucleated RBC % 0.0 Sodium 138 Potassium 3.7 Chloride 103 Carbon Dioxide 29 Anion Gap 6 BUN 10 Creatinine 0.80 Estim Creat Clear Calc 165 Estimated GFR > 60 Glucose 83 POC Capillary Glucose 87 91 Calcium 9.3 Magnesium 1.7 Total Bilirubin 1.0 AST 47 ALT 75 H Alkaline Phosphatase 106 Total Protein 7.0 Albumin 4.3 03/30/24 17:19 WBC RBC Hgb Hct MCV MCH MCHC RDW Plt Count MPV Immature Gran % (Auto) Neut % (Auto) Lymph % (Auto) [place] % (Auto) Eos % (Auto) Baso % (Auto) Lymph # (Auto) [place] # (Auto) Eos # (Auto) Baso # (Auto) Abs Immat Gran (auto) Absolute Neuts (auto) Absolute Nucleated RBC Nucleated RBC % Sodium Potassium Chloride Carbon Dioxide Anion Gap BUN Creatinine Estim Creat Clear Calc Estimated GFR Glucose POC Capillary Glucose 108 H Calcium Magnesium Total Bilirubin AST ALT Alkaline Phosphatase Total Protein Albumin Quality VTE Prophylaxis VTE prophylaxis: mechanical ordered and pharmacologic ordered
[2024-03-30] MEDS: AMITRIPTYLINE HCL 25 MG TABLET PO (20:28)
[2024-03-30] MEDS: amLODIPine BESYLATE 10 MG TABLET PO (20:28)
[2024-03-30] MEDS: levoFLOXacin 750 MG/D5W 150 ML 750 MG/150 ML BAG 100 MG IVPB (20:29)
[2024-03-30 20:46] LABS: Glucose Point of Care 128 mg/dl (65-105)
--- NOTE | 2024-03-31 01:16 | ECG_ITS ---
Test Date: 2024-03-31 01:27:17 Measurements Intervals [place] Rate: 105 P: 17 MA: 143 QRS: -1 QRSD: 88 T: 42 QT: 338 QTc: 448 Interpretive Statements SINUS TACHYCARDIA Compared to ECG 03/29/2024 09:18:36 Sinus rhythm no longer present Myocardial infarct finding no longer present Electronically Signed On 03-31-2024 22:51:22 MEDIA RELATIONS DIRECTOR by Henry Irvin M.D.
[2024-03-31 02:31] LABS: Troponin I < 0.012 ng/mL (0.000-0.034)
[2024-03-31] MEDS: metroNIDAZOLE 500 MG/ISO 100ML 500 MG/100 ML BAG 100 MG IVPB ×3 (05:22→22:53)
[2024-03-31] MEDS: ONDANSETRON INJ 4 MG/2 ML VIAL IV PUSH ×2 (05:22→10:50)
[2024-03-31] MEDS: HYDROcodone/acetaminophen (*CRX) 5-325 MG TABLET 1 TAB PO ×3 (05:22→21:24)
[2024-03-31 05:53] LABS: Troponin I < 0.012 ng/mL (0.000-0.034)
[2024-03-31 06:04] VITALS: BP 135/98; PULSE 107; RESP 18; TEMP 36.8; O2SAT 97
[2024-03-31 08:14] LABS: Glucose Point of Care 106 mg/dl (65-105)
[2024-03-31 08:17] LABS: Troponin I < 0.012 ng/mL (0.000-0.034)
[2024-03-31] MEDS: SENNA/DOCUSATE SODIUM TABLET 1 TAB PO ×2 (08:31→16:11)
[2024-03-31] MEDS: DOCUSATE SODIUM 100 MG CAPSULE PO ×2 (08:31→16:11)
[2024-03-31] MEDS: ENOXAPARIN 40 MG/0.4 ML SYRINGE SUB-Q (08:31)
[2024-03-31] MEDS: polyethylene glycoL 3350 17 GM POWD.PACK PO ×2 (08:31→16:11)
[2024-03-31] MEDS: PANTOPRAZOLE SODIUM IV 40 MG VIAL IV PUSH (08:31)
[2024-03-31 09:05] LABS: Hematocrit 40.3 % (42.0-52.0); Hemoglobin 13.3 g/dL (14.0-18.0); Mean Corpuscular Hemoglobin 28.9 pg (26-34); Mean Corpuscular Volume 87.6 fl (80-100); Mean Platelet Volume 9.1 fl (7.4-10.4); Platelet Count Result 302 k/mm3 (150-375); Red Cell Distribution Width 12.1 % (11.5-14.5)
[2024-03-31 09:17] LABS: Alanine Aminotransferase 58 U/L (6-50); Albumin Level 4.3 g/dL (3.5-5.1); Alkaline Phosphatase 99 U/L (38-126); Anion Gap 7 mmol/L (4-12); Aspartate Amino Transferase 33 U/L (17-59); Bilirubin,Total 0.6 mg/dL (0.2-1.3); Blood Urea Nitrogen 9 mg/dL (9-20); Calcium 9.5 mg/dL (8.4-10.2); Carbon Dioxide 27 mmol/L (22-30); Chloride 104 mmol/L (98-107); Estimated CRCL calculation 144 ml/min; Estimated Glomerular Filt Rate > 60; Glucose 174 mg/dL (65-110); Potassium 3.6 mmol/L (3.4-5.0); Sodium 138 mmol/L (137-145)
--- NOTE | 2024-03-31 09:27 | P.PNGS_ITS ---
Progress Note: A&P Assessment and Plan (1) Abdominal pain, acute, right upper quadrant: Code(s): R10.11 - Right upper quadrant pain Status: Acute Assessment and Plan: * He is tolerating a diet and abdominal pain improved some after multiple bowel movements. He is healing well following the laparoscopic cholecystectomy. No acute surgical issues. * We will sign off at this time. Okay to discharge home and he can f/u with Dr. Gleason in the next 1-2 weeks. (2) History of laparoscopic cholecystectomy: Code(s): Z90.49 - Acquired absence of other specified parts of digestive tract Status: Acute Assessment and Plan: * S/p laparoscopic cholecystectomy on 03/21/2024. 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 Gleason. Subjective Subjective Date/Time Seen: 03/31/24 09:27 Post Op day: 10 Patient reports: feels better and bowel movement Interval history: Patient feeling better today. He reports multiple bowel movements and did feel some relief in his pain and bloating. He is tolerating a diet. Exam Const: General: comfortable and no acute distress GI: Inspection: non-distended and incision (Healing well with no erythema or drainage) GI Palp: Yes Soft to palpation, Yes Tenderness to palpation present (GI) (Mild right upper quadrant tenderness), No Guarding due to palpation present (GI) and No Rebound tenderness present Auscultation: normal bowel sounds Objective Data Vital Signs Vital Signs: Vital Signs - 24 hr 03/30/24 10:00 03/30/24 11:49 03/30/24 12:00 Temperature 98.9 F Pulse Rate 94 118 H 118 H Respiratory Rate 20 20 Blood Pressure 139/98 H Pulse Oximetry 95 95 Oxygen Delivery Room Air 03/30/24 12:00 03/30/24 16:00 03/30/24 20:53 Temperature 97.3 F L 98.2 F Pulse Rate 117 H 100 96 Respiratory Rate 20 16 Blood Pressure 145/96 H 134/88 Pulse Oximetry 98 96 Oxygen Delivery 03/31/24 06:04 Temperature 98.2 F Pulse Rate 107 H Respiratory Rate 18 Blood Pressure 135/98 H Pulse Oximetry 97 Oxygen Delivery Intake/Output Intake/Output: Intake & Output 03/28/24 03/29/24 03/30/24 03/31/24 23:59 23:59 23:59 23:59 Intake Total 2100 3330 4040 Output Total 500 500 1 Balance 1600 2830 4039 Meds/Results Medications: Active Medications Generic Name Dose Route Start Last Admin Trade Name Freq PRN Reason Stop Dose Admin Acetaminophen 650 mg 03/28/24 18:46 03/30/24 06:16 Acetaminophen 325 Mg Tablet PO 650 mg Q4H PRN Administration Mild Pain (1-3) or Fever Hydrocodone Bitart/Acetaminophen 1 tab 03/30/24 10:31 03/31/24 05:22 Hydrocodone/Acetaminophen (*Crx) 5-325 Mg Tablet PO 1 tab Q4H PRN Administration Pain Rated 4-6 Albuterol 2 puff 03/28/24 21:04 Albuterol Sulfate (*Sp) Aerosol 1 Puff INHALATION Q6H PRN shortness of breath or wheezing Amitriptyline HCl 25 mg 03/29/24 21:00 03/30/24 20:28 Amitriptyline Hcl 25 Mg Tablet PO 25 mg HS ALIX Administration Amlodipine Besylate 10 mg 03/29/24 21:00 03/30/24 20:28 Amlodipine Besylate 10 Mg Tablet PO 10 mg HS ALIX Administration Dextrose 12.5 gm 03/28/24 18:46 Dextrose 50% 25 Gm/50 Ml Syringe IV PUSH PRN PRN Hypoglycemia Protocol Docusate Sodium 100 mg 03/29/24 09:00 03/31/24 08:31 Docusate Sodium 100 Mg Capsule PO 100 mg BID ALIX Administration Enoxaparin Sodium 40 mg 03/29/24 09:00 03/31/24 08:31 Enoxaparin 40 Mg/0.4 Ml Syringe SUB-Q 40 mg DAILY ALIX Administration Glucagon 1 mg 03/28/24 18:46 Glucagon For Inj 1 Mg Vial IM PRN PRN Hypoglycemia Protocol Glucose 15 gm 03/28/24 18:46 Glucose Oral Gel 15 Gm Of Glucse In 37.5 Gm Tube PO PRN PRN Hypoglycemia Protocol Levofloxacin/Dextrose 750 mg in 150 mls @ 100 mls/hr 03/29/24 21:00 03/30/24 20:29 Levaquin 750 Mg/D5w 150 Ml IVPB 100 mls/hr Q24H ALIX Administration Metronidazole 500 mg in 100 mls @ 100 mls/hr 03/29/24 00:00 03/31/24 05:22 Flagyl 500 Mg/Iso Soln 100 Ml IVPB 100 mls/hr Q8HR ALIX Administration Dextrose 1,000 mls @ 100 mls/hr 03/28/24 18:46 Dextrose 5% 1,000 Ml IVPB PRN PRN Hypoglycemia Protocol Insulin Aspart 2 - 5 units 03/30/24 17:00 03/31/24 08:30 Insulin Aspart (*Bkc) 100 Units/Ml SUB-Q Not Given TIDWM ALIX Protocol Pantoprazole Sodium 40 mg 03/29/24 09:00 03/31/24 08:31 Pantoprazole Sodium Iv 40 Mg Vial IV PUSH 40 mg QAM ALIX Administration Polyethylene Glycol 17 gm 03/29/24 09:00 03/31/24 08:31 Polyethylene Glycol 3350 17 Gm Powd.Pack PO 17 gm BID ALIX Administration Senna/Docusate Sodium 1 tab 03/29/24 09:00 03/31/24 08:31 Senna/Docusate Sodium Tablet PO 1 tab BID ALIX Administration Radiology Results: ITS Impressions Abdomen/Pelvis CT 03/28/24 14:30 IMPRESSION: 1. Postoperative change of recent lap scopic cholecystectomy with small amount of residual nonloculated fluid at the gallbladder fossa and in the deep pelvis. No organized abscess. Chest CTA 03/28/24 15:31 IMPRESSION: 1. Bilateral groundglass appearance in the lung bases which may indicate early pneumonia. Follow-up advised. 2. Status post cholecystectomy with soft tissue density in the area of the gallbladder bed. Clinical correlation advised. Hepatobiliary Scan Nuclear Medicine 03/29/24 17:23 Impression: 1: Normal hepatobiliary scan postcholecystectomy. Abdomen X-Ray 03/31/24 08:03 Impression: No significant abnormality is seen. Labs Labs: Laboratory Results - last 24 hr 03/30/24 03/30/24 03/30/24 11:48 17:19 20:11 WBC RBC Hgb Hct MCV MCH MCHC RDW Plt Count MPV Sodium Potassium Chloride Carbon Dioxide Anion Gap BUN Creatinine Estim Creat Clear Calc Estimated GFR Glucose POC Capillary Glucose 91 108 H 128 H Calcium Total Bilirubin AST ALT Alkaline Phosphatase Troponin I Total Protein Albumin 03/31/24 03/31/24 03/31/24 02:03 05:23 07:52 WBC RBC Hgb Hct MCV MCH MCHC RDW Plt Count MPV Sodium Potassium Chloride Carbon Dioxide Anion Gap BUN Creatinine Estim Creat Clear Calc Estimated GFR Glucose POC Capillary Glucose Calcium Total Bilirubin AST ALT Alkaline Phosphatase Troponin I < 0.012 < 0.012 < 0.012 Total Protein Albumin 03/31/24 03/31/24 07:53 08:51 WBC 8.0 RBC 4.60 Hgb 13.3 L Hct 40.3 L MCV 87.6 MCH 28.9 MCHC 33.0 RDW 12.1 Plt Count 302 MPV 9.1 Sodium 138 Potassium 3.6 Chloride 104 Carbon Dioxide 27 Anion Gap 7 BUN 9 Creatinine 0.90 Estim Creat Clear Calc 144 Estimated GFR > 60 Glucose 174 H POC Capillary Glucose 106 H Calcium 9.5 Total Bilirubin 0.6 AST 33 ALT 58 H Alkaline Phosphatase 99 Troponin I Total Protein 8.0 Albumin 4.3
[2024-03-31 09:46] LABS: D Dimer 1.91 ug/mL (<0.48)
--- NOTE | 2024-03-31 10:56 | PM.IMPN ---
Progress Note: A&P Assessment and Plan (1) Abdominal pain: Code(s): R10.9 - Unspecified abdominal pain Status: Inactive Assessment and Plan: Persistent RUQ pain s/p cholecystectomy 03/21/[address] AP no acute changes tolerating diet likely residual pain from surgery continue pO analgesic possible discharge tomorrow (2) Nausea & vomiting: Code(s): R11.2 - Nausea with vomiting, unspecified Status: Inactive Assessment and Plan: CT abdomen show no acute findings that explain nausea and vomiting resolved encourage PO intake (3) Pneumonia: Code(s): J18.9 - Pneumonia, unspecified organism Status: Acute Assessment and Plan: on levofloxacin and Flagyl Now on room air Aggressive pulmonary toileting (4) Leukocytosis: Code(s): D72.829 - Elevated white blood cell count, unspecified Status: Acute Assessment and Plan: No abscess seen on abdominal CT, Could be related to pneumonia UA pending Blood cultures pending (5) Tachycardia: Code(s): R00.0 - Tachycardia, unspecified Status: Acute Assessment and Plan: EKG showed sinus rhythm continue above are Pain management (6) Constipation: Code(s): K59.00 - Constipation, unspecified Status: Acute Assessment and Plan: Likely induced from narcotics from cholecystectomy Hold Linzess MiraLax, senna monitor (7) HTN (hypertension): Qualifiers: Hypertension type: primary hypertension Qualified Code(s): I10 - Essential (primary) hypertension Code(s): I10 - Essential (primary) hypertension Status: Acute Assessment and Plan: titrate home meds with clinical course (8) Diabetes: Qualifiers: Diabetes mellitus type: type 2 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 Will get CTA chest today. Will get venous Doppler of both lower extremity. One dose of lovenox given . Plan DVT prophylaxis on Sq Lovenox Possible discharge tomorrow Subjective Date/time seen: 03/31/24 10:56 Interval history: Patient comfortable at bedside c/o having sudden sob this morning along with chest pain No nausea or vomiting Review of Systems Review of Systems: 12 systems were reviewed and are negative except for as per HPI. Exam Narrative: General: well appearing, appears stated age. HEENT: normocephalic, atraumatic. Mucous membranes moist. EOMI, PERRLA, bilateral sclera anicteric, no conjunctival injection. Neck supple without JVD, lymphadenopathy, or bruit. Respiratory: Diminished to ascultation bilaterally. No rales/rhonic/wheezes. Cardiovascular: Regular rate and rhythm, normal S1-S2 upon ascultation. No murmurs, rubs, or clicks. PMI is nondisplaced, capillary refill less than 3 second. Abdomen: Soft, round, no pulsatile masses, nondistended and nontender. No rebound, no guarding. No CVA tenderness, no hepatosplenomegaly. Bowel sounds present to all four quadrants. No high pitch or tinkling sounds, resonant to percussion. Extremities: No cyanosis, clubbing, or edema present. Pulses are palpable 2/2. Active ROM to all four extremities. Neuro: Alert and orientated x 4. PERRLA. Cranial nerves 2-12 intact without focal deficit. Skin: Warm, dry, and intact, without rash, erythema, or lesion. Psych: pleasant, cooperative, normal speech, normal affect, no hallucinations, no dysarthia Objective Data Vital Signs Vital Signs: Vital Signs - 24 hr 03/30/24 11:49 03/30/24 12:00 03/30/24 12:00 Temperature 37.2 C Pulse Rate 118 H 118 H 117 H Respiratory Rate 20 20 Blood Pressure 139/98 H Pulse Oximetry 95 95 Oxygen Delivery Room Air 03/30/24 16:00 03/30/24 20:53 03/31/24 06:04 Temperature 36.3 C L 36.8 C 36.8 C Pulse Rate 100 96 107 H Respiratory Rate 20 16 18 Blood Pressure 145/96 H 134/88 135/98 H Pulse Oximetry 98 96 97 Oxygen Delivery 03/31/24 08:00 Temperature Pulse Rate Respiratory Rate Blood Pressure Pulse Oximetry Oxygen Delivery Room Air Intake/Output Intake/Output: Intake & Output 12/03/29/24 03/30/24 03/31/24 23:59 23:59 23:59 23:59 Intake Total 2100 3330 4040 Output Total 500 500 1 Balance 1600 2830 4039 Meds/Results Medications: Active Medications Generic Name Dose Route Start Last Admin Trade Name Freq PRN Reason Stop Dose Admin Acetaminophen 650 mg 03/28/24 18:46 03/30/24 06:16 Acetaminophen 325 Mg Tablet PO 650 mg Q4H PRN Administration Mild Pain (1-3) or Fever Hydrocodone Bitart/Acetaminophen 1 tab 03/30/24 10:31 03/31/24 05:22 Hydrocodone/Acetaminophen (*Crx) 5-325 Mg Tablet PO 1 tab Q4H PRN Administration Pain Rated 4-6 Albuterol 2 puff 03/28/24 21:04 Albuterol Sulfate (*Sp) Aerosol 1 Puff INHALATION Q6H PRN shortness of breath or wheezing Amitriptyline HCl 25 mg 03/29/24 21:00 03/30/24 20:28 Amitriptyline Hcl 25 Mg Tablet PO 25 mg HS ALIX Administration Amlodipine Besylate 10 mg 03/29/24 21:00 03/30/24 20:28 Amlodipine Besylate 10 Mg Tablet PO 10 mg HS ALIX Administration Dextrose 12.5 gm 03/28/24 18:46 Dextrose 50% 25 Gm/50 Ml Syringe IV PUSH PRN PRN Hypoglycemia Protocol Docusate Sodium 100 mg 03/29/24 09:00 03/31/24 08:31 Docusate Sodium 100 Mg Capsule PO 100 mg BID ALIX Administration Enoxaparin Sodium 40 mg 03/29/24 09:00 03/31/24 08:31 Enoxaparin 40 Mg/0.4 Ml Syringe SUB-Q 40 mg DAILY ALIX Administration Glucagon 1 mg 03/28/24 18:46 Glucagon For Inj 1 Mg Vial IM PRN PRN Hypoglycemia Protocol Glucose 15 gm 03/28/24 18:46 Glucose Oral Gel 15 Gm Of Glucse In 37.5 Gm Tube PO PRN PRN Hypoglycemia Protocol Levofloxacin/Dextrose 750 mg in 150 mls @ 100 mls/hr 03/29/24 21:00 03/30/24 20:29 Levaquin 750 Mg/D5w 150 Ml IVPB 100 mls/hr Q24H ALIX Administration Metronidazole 500 mg in 100 mls @ 100 mls/hr 03/29/24 00:00 03/31/24 05:22 Flagyl 500 Mg/Iso Soln 100 Ml IVPB 100 mls/hr Q8HR ALIX Administration Dextrose 1,000 mls @ 100 mls/hr 03/28/24 18:46 Dextrose 5% 1,000 Ml IVPB PRN PRN Hypoglycemia Protocol Sodium Chloride 1,000 mls @ 150 mls/hr 03/31/24 10:05 Normal Saline Iv IV CONT .Q6H40M [facility] Insulin Aspart 2 - 5 units 03/30/24 17:00 03/31/24 08:30 Insulin Aspart (*Bkc) 100 Units/Ml SUB-Q Not Given TIDWM ALIX Protocol Pantoprazole Sodium 40 mg 03/29/24 09:00 03/31/24 08:31 Pantoprazole Sodium Iv 40 Mg Vial IV PUSH 40 mg QAM ALIX Administration Polyethylene Glycol 17 gm 03/29/24 09:00 03/31/24 08:31 Polyethylene Glycol 3350 17 Gm Powd.Pack PO 17 gm BID ALIX Administration Senna/Docusate Sodium 1 tab 03/29/24 09:00 03/31/24 08:31 Senna/Docusate Sodium Tablet PO 1 tab BID ALIX Administration Radiology Results: ITS Impressions Abdomen/Pelvis CT 03/28/24 14:30 IMPRESSION: 1. Postoperative change of recent lap scopic cholecystectomy with small amount of residual nonloculated fluid at the gallbladder fossa and in the deep pelvis. No organized abscess. Chest CTA 03/28/24 15:31 IMPRESSION: 1. Bilateral groundglass appearance in the lung bases which may indicate early pneumonia. Follow-up advised. 2. Status post cholecystectomy with soft tissue density in the area of the gallbladder bed. Clinical correlation advised. Hepatobiliary Scan Nuclear Medicine 03/29/24 17:23 Impression: 1: Normal hepatobiliary scan postcholecystectomy. Abdomen X-Ray 03/31/24 08:03 Impression: No significant abnormality is seen. Labs Labs: Laboratory Results - last 24 hr 03/30/24 03/30/24 03/30/24 11:48 17:19 20:11 WBC RBC Hgb Hct MCV MCH MCHC RDW Plt Count MPV D-Dimer Sodium Potassium Chloride Carbon Dioxide Anion Gap BUN Creatinine Estim Creat Clear Calc Estimated GFR Glucose POC Capillary Glucose 91 108 H 128 H Calcium Total Bilirubin AST ALT Alkaline Phosphatase Troponin I Total Protein Albumin 03/31/24 03/31/24 03/31/24 02:03 05:23 07:52 WBC RBC Hgb Hct MCV MCH MCHC RDW Plt Count MPV D-Dimer Sodium Potassium Chloride Carbon Dioxide Anion Gap BUN Creatinine Estim Creat Clear Calc Estimated GFR Glucose POC Capillary Glucose Calcium Total Bilirubin AST ALT Alkaline Phosphatase Troponin I < 0.012 < 0.012 < 0.012 Total Protein Albumin 03/31/24 03/31/24 07:53 08:51 WBC 8.0 RBC 4.60 Hgb 13.3 L Hct 40.3 L MCV 87.6 MCH 28.9 MCHC 33.0 RDW 12.1 Plt Count 302 MPV 9.1 D-Dimer 1.91 H Sodium 138 Potassium 3.6 Chloride 104 Carbon Dioxide 27 Anion Gap 7 BUN 9 Creatinine 0.90 Estim Creat Clear Calc 144 Estimated GFR > 60 Glucose 174 H POC Capillary Glucose 106 H Calcium 9.5 Total Bilirubin 0.6 AST 33 ALT 58 H Alkaline Phosphatase 99 Troponin I Total Protein 8.0 Albumin 4.3 Quality VTE Prophylaxis VTE prophylaxis: mechanical ordered and pharmacologic ordered
[2024-03-31 12:08] LABS: Glucose Point of Care 132 mg/dl (65-105)
[2024-03-31 16:00] VITALS: BP 153/96; PULSE 100; RESP 20; TEMP 36.5; O2SAT 98
[2024-03-31 16:47] LABS: Glucose Point of Care 131 mg/dl (65-105)
[2024-03-31 21:16] LABS: Glucose Point of Care 112 mg/dl (65-105)
[2024-03-31] MEDS: levoFLOXacin 750 MG/D5W 150 ML 750 MG/150 ML BAG 100 MG IVPB (21:18)
[2024-03-31] MEDS: AMITRIPTYLINE HCL 25 MG TABLET PO (21:18)
[2024-03-31] MEDS: amLODIPine BESYLATE 10 MG TABLET PO (21:18)
[2024-03-31 21:24] VITALS: BP 125/94; PULSE 95; RESP 16; TEMP 36.1; O2SAT 98
[2024-04-01] MEDS: ONDANSETRON INJ 4 MG/2 ML VIAL IV PUSH (00:40)
[2024-04-01] MEDS: HYDROcodone/acetaminophen (*CRX) 5-325 MG TABLET 1 TAB PO (02:42)
[2024-04-01] MEDS: metroNIDAZOLE 500 MG/ISO 100ML 500 MG/100 ML BAG 100 MG IVPB (05:38)
[2024-04-01 08:02] LABS: Glucose Point of Care 107 mg/dl (65-105)
[2024-04-01] MEDS: ENOXAPARIN 40 MG/0.4 ML SYRINGE SUB-Q (09:08)
[2024-04-01] MEDS: PANTOPRAZOLE SODIUM IV 40 MG VIAL IV PUSH (09:08)
[2024-04-01] MEDS: SENNA/DOCUSATE SODIUM TABLET 1 TAB PO (09:08)
[2024-04-01] MEDS: DOCUSATE SODIUM 100 MG CAPSULE PO (09:08)
--- NOTE | 2024-04-01 09:26 | PM.DS ---
DS: Admitting Diagnosis Discharge Date 04/01/2024 Admitting Diagnosis Abdominal pain Pneumonia DS: Discharge Diagnosis Discharge Diagnosis (1) Abdominal pain: Code(s): R10.9 - Unspecified abdominal pain Status: Inactive Assessment and Plan: Persistent RUQ pain s/p cholecystectomy 03/21/[address] AP no acute changes tolerating diet likely residual pain from surgery continue pO analgesic possible discharge tomorrow (2) Nausea & vomiting: Code(s): R11.2 - Nausea with vomiting, unspecified Status: Inactive Assessment and Plan: CT abdomen show no acute findings that explain nausea and vomiting resolved encourage PO intake (3) Pneumonia: Code(s): J18.9 - Pneumonia, unspecified organism Status: Acute Assessment and Plan: on levofloxacin and Flagyl Now on room air Aggressive pulmonary toileting (4) Leukocytosis: Code(s): D72.829 - Elevated white blood cell count, unspecified Status: Acute Assessment and Plan: No abscess seen on abdominal CT, Could be related to pneumonia UA pending Blood cultures pending (5) Tachycardia: Code(s): R00.0 - Tachycardia, unspecified Status: Acute Assessment and Plan: EKG showed sinus rhythm continue above are Pain management (6) Constipation: Code(s): K59.00 - Constipation, unspecified Status: Acute Assessment and Plan: Likely induced from narcotics from cholecystectomy Hold Linzess MiraLax, senna monitor (7) HTN (hypertension): Qualifiers: Hypertension type: primary hypertension Qualified Code(s): I10 - Essential (primary) hypertension Code(s): I10 - Essential (primary) hypertension Status: Acute Assessment and Plan: titrate home meds with clinical course (8) Diabetes: Qualifiers: Diabetes mellitus type: type 2 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 Will get CTA chest today. Will get venous Doppler of both lower extremity. One dose of lovenox given . Plan DVT prophylaxis on Sq Lovenox Possible discharge tomorrow DS: Summary Hospital Course Reason for hospitalization: Abdominal pain Pneumonia Hospital Course: 28 year male was admitted with complaints of abdominal pain. Patient was found to pneumonia. CT chest cm double negative for pulmonary embolism and DVT. Patient was given IV antibiotics. Surgery was consulted because postop care. Patient had no complication during the stay in the hospital. Today patient is feeling better discharged home stable condition Follow up with primary care and surgery schedule. Status at Discharge Cognitive/behavioral status at discharge: Stable Time Spent with Patient Time attestation: 30 minutes Total time spent providing and/or coordinating discharge services: Exam Narrative: General: well appearing, appears stated age. HEENT: normocephalic, atraumatic. Mucous membranes moist. EOMI, PERRLA, bilateral sclera anicteric, no conjunctival injection. Neck supple without JVD, lymphadenopathy, or bruit. Respiratory: Diminished to ascultation bilaterally. No rales/rhonic/wheezes. Cardiovascular: Regular rate and rhythm, normal S1-S2 upon ascultation. No murmurs, rubs, or clicks. PMI is nondisplaced, capillary refill less than 3 second. Abdomen: Soft, round, no pulsatile masses, nondistended and nontender. No rebound, no guarding. No CVA tenderness, no hepatosplenomegaly. Bowel sounds present to all four quadrants. No high pitch or tinkling sounds, resonant to percussion. Extremities: No cyanosis, clubbing, or edema present. Pulses are palpable 2/2. Active ROM to all four extremities. Neuro: Alert and orientated x 4. PERRLA. Cranial nerves 2-12 intact without focal deficit. Skin: Warm, dry, and intact, without rash, erythema, or lesion. Psych: pleasant, cooperative, normal speech, normal affect, no hallucinations, no dysarthia DS: Data Data Completed and Pending Labs on day of discharge: Labs from last 24 hours 04/01/24 03/31/24 03/31/24 07:43 19:48 16:39 D-Dimer POC Capillary Glucose 107 H 112 H 131 H 03/31/24 03/31/24 11:54 08:51 D-Dimer 1.91 H POC Capillary Glucose 132 H Preliminary micro results at discharge 03/28/24 17:32 Blood Culture - Preliminary Blood 03/28/24 17:31 Blood Culture - Preliminary Blood Discharge Plan Discharge Attending physician on discharge: Efrain Huff Consulting providers: Nikky Smallwood; Kym Delaney; Pérez Chambers; Black Bautista Discharging Clinician: Efrain Huff Activity: as tolerated Diet: diabetic Patient Instructions: Pain Management in Older Adults (DC) Patient Language: Frisian Follow-up/Referrals: [facility] [Provider Group] Pérez Chambers MD [Physician] - Discharge Medications: New ciprofloxacin HCl [Cipro] 500 mg tablet 500 mg PO Q12H Qty: 10 0RF metronidazole 500 mg tablet 500 mg PO Q12H Qty: 10 0RF Continued amitriptyline 25 mg tablet 25 mg PO HS amlodipine 10 mg tablet 10 mg PO HS cholecalciferol (vitamin D3) 25 mcg (1,000 unit) tablet 25 mcg PO HS simethicone [Gas Relief Extra Strength] 125 mg tablet,chewable 125 mg PO QID PRN (Reason: abdominal distention) pantoprazole 40 mg tablet,delayed release (DR/EC) 40 mg PO HS loratadine [Claritin] 10 mg Tablet 10 mg PO HS Linzess 145 mcg capsule 145 mcg PO DAILY albuterol sulfate 90 mcg/actuation HFA aerosol inhaler 2 puff INHALATION Q6H PRN (Reason: shortness of breath or wheezing) metformin 500 mg tablet 500 mg PO BID Date of admission: 03/30/24 11:24 Primary Care Provider: PHYSICIAN NOT ON STAFF,NONSTAFF Admitting Provider: Kym Delaney Attending physician on admission: Kym Delaney Condition: Serious Quality VTE Prophylaxis VTE prophylaxis: mechanical ordered and pharmacologic ordered
--- OUTSIDE RECORDS SUMMARY | 2024-04-04 19:28 | XMS_ITS | Clinical Summary ---
Author Organization [facility] Change Address [address] [place] [address] Care Team Providers Care Patent Searcher Name Role Phone Unavailable Primary Care Provider Unavailabl e Source Comments [facility],non-owned Affiliates and Associated Physician Practices is amultiple site organization consisting of ambulatory clinics and hospital sitesin [place], [place]. This disclosure is being madepursuant to the Care Everywhere program and may not contain all information available regarding this patient. Last updated 17.[facility] Allergies Active Allergy Reactions Criticality Noted Date Comments Morphine Cardiac Injury High 10/23/2017 Medications * Be aware that medications may not be up to date on this document. Alwaysverify current medications with the patient. Medication Sig Dispensed Refills Start Date End Date Status PROAIR HFA 108 (90 BASE) MCG/ACT inhaler INL 2 PFS PO Q 4 H PRN 12 07/26/2017 Active bethanechol (URECHOLINE) 25 MG tablet TK 1 T PO TID WITH MEALS 5 07/26/2017 Active dicyclomine (BENTYL) 10 MG capsule TK 1 C PO Q 12 H 0 07/09/2017 Active gabapentin (NEURONTIN) 100 MG capsule TK 1 C PO TID 0 09/26/2017 Active traMADol (ULTRAM) 50 MG tablet TK 1 T PO TID 0 09/26/2017 Active Active Problems Problem Noted Date Diagnosed Date STACIE (obstructive sleep apnea) 10/05/2019 Overview (06/21/2020): Last Assessment & Plan: Patient is obese and complains of snoring at night, daytime sleepiness and fatigue. Suspect underlying obstructive sleep apnea. I will refer him to Sleep Clinic for sleep study. Pulmonary nodule/lesion, solitary 10/05/2019 Overview (06/21/2020): Last Assessment & Plan: Patient has 1 pulmonary nodule which is [address] scan of the abdomen and pelvis. Will repeat CT scan of the chest in 1 year given his family history of lung cancer. Essential hypertension 02/05/2019 Type 2 diabetes mellitus without complication Carotid atherosclerosis 09/10/2017 Asthma 07/26/2017 Overview (06/21/2020): Last Assessment & Plan: Patient has mild intermittent asthma and is on p.r.n. albuterol inhaler active will be continued. I will check IgE level. He complains of cough with sinus drainage. I will start him on Zyrtec. Obtain full set of PFTs before next visit. Chronic back pain 07/26/2017 Irritable bowel syndrome 07/26/2017 Obesity 07/26/2017 Ulcerative colitis 07/26/2017 Immunizations Name Administration Dates Next Due FLU VACCINE QUAD IIV4 SPLIT 0.25 ML IM 8 Social History Tobacco Use Types Packs/Day Years Used Date Smoking Tobacco: Never Smokeless Tobacco: Never Tobacco Cessation:Counseling Given: No Alcohol Use Standard Drinks/Week Comments Yes 0 (1 standard drink = 0.6 oz pur e alcohol) OCCASSIONALLY Sex and Gender Information Value Date Recorded Sex Assigned at Not on file Gender Identity Not on file Sexual Orientation Not on file Last Filed Vital Signs Vital Sign Reading Time Taken Comments Blood Pressure 149/93 10/28/2017 11:00 AM CDT Pulse 107 10/28/2017 11:00 AM CDT Temperature 36.9 ??C (98.5 ??F) 10/28/2017 11:00 AM C DT Respiratory Rate - - Oxygen Saturation - - Inhaled Oxygen Concentration - - Weight 142.9 kg (315 lb) 10/28/2017 11:00 AM CDT Height 180.3 cm (5' 11 ) 10/28/2017 11:00 AM CDT Body Mass Index 43.93 10/28/2017 11:00 AM CDT Plan of Treatment Health Maintenance Due Date Last Done Comments PNEUMOCOCCAL VACCINE (1 of 2 - PCV) 10/21/1993 HIV SCREENING 10/21/2002 DIABETES-SERUM CREATININE 10/21/2005 DTAP/TDAP/TD VACCINES (1 - Tdap) 10/21/2006 HEPATITIS B VACCINE (1 of 3 - 19+ 3-dose series) 10/21/2006 DIABETES - URINE PROTEIN SCREENING 06/21/2020 DIABETES RETINOPATHY SCREENING 06/21/2020 DIABETES-FOOT EXAM WITH MONOFILAMENT 06/21/2020 DIABETES-HGB A1C 06/21/2020 DEPRESSION SCREENING 04/01/2023 COVID-19 VACCINE (1 - 2023-2 5 season) 2023 INFLUENZA VACCINE (#1) 2023 01/30/2018 ZOSTER VACCINE (1 of 2) 10/21/2037 HEPATITIS C SCREENING Completed 09/25/2019 (Done Outside Per Report) HIB VACCINE Aged Out No longer eligi ble based on patient's age to complete this topic HPV VACCINE Aged Out No longer eligi ble based on patient's age to complete this topic MENINGOCOCCAL VACCINE Aged Out No al angel eligible based on patient's age to complete this topic
--- OUTSIDE RECORDS SUMMARY | 2024-04-04 19:28 | XMS_ITS | Encounter Summary ---
Author Organization [facility] Address [address] [place] [address] Care Team Providers Care Packer And Carry Out Name Role Phone ParksSara EASEMENT MAN-CHEMICAL EDUCATOR Primary Care Provider Oscar Siegel MD Primary Care Provider [phone] Dominguez Mena DO Primary Care Provider [phone] Oscar Siegel MD Primary Care Provider [phone] Encounter Details Date Type Department Care Team (Late st Contact Info) Description 12/01/2019 Lab Requisition [facility] [address] [place] [address] Aimee Hays MD [address] [place] [id number] Social History Tobacco Use Types Packs/Day Years Used Date Smoking Tobacco: Never Smokeless Tobacco: Never Alcohol Use Standard Drinks/Week Comments Yes 0 (1 standard drink = 0.6 oz pur e alcohol) OCCASSIONALLY Sex and Gender Information Value Date Recorded Sex Assigned at Not on file Gender Identity Not on file Sexual Orientation Not on file documented as of this encounter Plan of Treatment Not on file documented as of this encounter Procedures Procedure Name Priority Date/Time Associated Diagnosis Comments DERMATOPATHOLOGY Routine 11/30/2019 12:0 0 AM CDT documented in this encounter Results * DERMATOPATHOLOGY (11/30/2019 12:00 AM CDT) Case Report Dermatopathology Report ? Case: [id number] ? Authorizing Provider: ??Aimee Hays MD ??Collected: ? 11/30/2019 12:00 AM ? Ordering Location: ? [facility] ?Received: ?12/01/2019 09:32 AM ? Pathologist: ? Nelly Espinal MD ? Specimen: ?Skin, right scapula ? 0 2:34 PM CDT DERMATOPATHOLOGY LABORATORY Final Diagnosis Specimen A. SKIN, right scapula: ACROCHORDON (SOFT FIBROMA, SKIN TAG) (L91.8) 0 2:34 PM CDT DERMATOPATHOLOGY LABORATORY Clinical History Benign skin tag. 0 2:34 PM CDT DERMATOPATHOLOGY LABORATORY Gross Description Specimen A: Received is one formalin filled container labeled with the patient's name and designated right scapula. The specimen consists of a shave biopsy measuring [id number], bisected. Jar 0. 0 2:34 PM CDT DERMATOPATHOLOGY LABORATORY Microscopic Description Specimen A. SKIN, right scapula: There is a gently folded epidermis surrounding a connective tissue core in which fat and collagen are intermingled. 0 2:34 PM CDT DERMATOPATHOLOGY LABORATORY Disclaimer An external and internal positive and negative controls are appropriate for the histochemical, immunohistochemical and immunofluorescence stain(s) in this case (if any), except where stated explicitly. The performance characteristics of the stain(s) cited in this report were developed and its performance characteristic determined by the Dermatopathology Laboratory at [facility], directed by Dr. Jacklyn Jo. These tests need not be, and therefore are not, approved by the [place] Food and Drug Administration. The tests are used for clinical purposes. Billing Codes Specimen Charges Stain Charges 95100 1 0 2:34 PM CDT DERMATOPATHOLOGY LABORATORY Embedded Images 0 2:34 PM CDT DERMATOPATHOLOGY LABORATORY Pathology/Cytolog y TISSUE SPECIMEN FROM SKIN / Unknown 11/30/2019 12/01/2019 9:32 AM CDT Aimee Hays MD LAB - PATHOLOGY/ CYTOLOGY ORDERABLES Performing Organization Address [facility]/State/ZIP Co de Phone Number DERMATOPATHOLOGY LABORATORY [facility] - Department of Dermatology [facility] Medicine [address] [place] [address], [address] [phone] documented in this encounter Visit Diagnoses Not on filedocumented in this encounter Care Teams Packer And Carry Out Relationship Specialty Start Date End Date Sara Parks, EASEMENT MAN-CHEMICAL EDUCATOR [address] [place] [address] [place] [id number] PCP - General 10/28/17 04/25/20 Oscar Siegel MD [address] [place] [address] [place] [address] PCP - General 04/26/20 06/15/20 Dominguez Mena DO [address] [address] PCP - General Family Medicine 06/16/20 06/29/20 Oscar Siegel MD [address] [place] [address] PCP - General 06/30/20 11/07/22 documented as of this encounter
--- OUTSIDE RECORDS SUMMARY | 2024-04-04 19:28 | XMS_ITS | Patient Health Summary ---
Author Organization [facility] Address [address] [place] [address] Care Team Providers Care Library Supervisor Name Role Phone Unavailable Primary Care Provider Unavailabl e Note from [facility],non-owned Affiliates and Associated Physician Practices is amultiple site organization consisting of ambulatory clinics and hospital sitesin [place], [place], [place] and [place]. This disclosure is being madepursuant to the Care Everywhere program and may not contain all information available regarding this patient. Last updated 17.[facility] Allergies * Morphine(Cardiac Injury) -High Criticality Medications * Be aware that medications may not be up to date on this document. Alwaysverify current medications with the patient. * PROAIR HFA 108 (90 BASE) MCG/ACT inhaler(Started 07/26/2017) INL 2 PFS PO Q 4 H PRN 12 refills left * bethanechol (URECHOLINE) 25 MG tablet(Started 07/26/2017) TK 1 T PO TID WITH MEALS 5 refills left * dicyclomine (BENTYL) 10 MG capsule(Started 07/09/2017) TK 1 C PO Q 12 H * gabapentin (NEURONTIN) 100 MG capsule(Started 09/26/2017) TK 1 C PO TID * traMADol (ULTRAM) 50 MG tablet(Started 09/26/2017) TK 1 T PO TID Active Problems Problem Noted Date Diagnosed Date STACIE (obstructive sleep apnea) 10/05/2019 Pulmonary nodule/lesion, solitary 10/05/2019 Essential hypertension 02/05/2019 Type 2 diabetes mellitus without complication Carotid atherosclerosis 09/10/2017 Asthma 07/26/2017 Chronic back pain 07/26/2017 Irritable bowel syndrome 07/26/2017 Obesity 07/26/2017 Ulcerative colitis 07/26/2017 Immunizations * FLU VACCINE QUAD IIV4 SPLIT 0.25 ML IM(Given 01/30/2018) Social History Tobacco Use Types Packs/Day Years [...] Mass Index 43.93 10/28/2017 11:00 AM CDT Procedures * DERMATOPATHOLOGY(Performed 11/30/2019) * IL DRAIN/INJECT LARGE JOINT/BURSA(Performed 10/31/2017) Performed for Acute pain of both shoulders * IL DRAIN/INJECT LARGE JOINT/BURSA(Performed 10/31/2017) Performed for Acute pain of both shoulders * XR SHOULDER LEFT 2VW OR MORE(Performed 10/23/2017) Performed for Chronic left shoulder pain * XR SHOULDER RIGHT 2VW OR MORE(Performed 10/23/2017) Performed for Chronic left shoulder pain * XR SPINE ENTIRE 2 OR 3VW(Performed 10/23/2017) Performed for Back pain, unspecified back location, unspecified back pain laterality, unspecified chronicity * PATH CONSULT REFER SPECIMEN(Performed 03/01/2004) * GROSS + MICRO EXAM(Performed 03/29/2003) * GROSS EXAM PATHOLOGY(Performed 11/10/2002) Results * DERMATOPATHOLOGY (11/30/2019 12:00 AM CDT) Case Report Dermatopathology Report ? Case: [id number] ? Authorizing Provider: ??Aimee Hays MD ??Collected: ? 11/30/2019 12:00 AM ? Ordering Location: ? [facility] DermPath Lab ?Received: ?12/01/2019 [...] specimen consists of a shave biopsy measuring [id number], bisected. Jar 0. 0 2:34 PM CDT [...] characteristic determined by the Dermatopathology Laboratory at [facility], directed by Dr. Jacklyn Jo. These tests need not be, and therefore are not, approved by the [place] Food and Drug Administration. The tests are used for clinical purposes. Billing Codes Specimen Charges Stain Charges 31626 1 0 2:34 PM CDT DERMATOPATHOLOGY LABORATORY Embedded Images 0 2:34 PM CDT DERMATOPATHOLOGY LABORATORY Pathology/Cytolog y TISSUE SPECIMEN FROM SKIN / Unknown 11/30/2019 12/01/2019 9:32 AM CDT Aimee Hays MD LAB - PATHOLOGY/ CYTOLOGY ORDERABLES DERMATOPATHOLOGY LABORATORY [facility] - Department of Dermatology [address], [address] [phone] * IL DRAIN/INJECT LARGE JOINT/BURSA (10/31/2017 11:23 AM CDT) Narrative Zeb Blanton III, MD - 10/31/2017 11:23 AM CDT Zeb Blanton III, MD ? 10/31/2017 11:23 AM After discussion of risks, benefits, and alternatives, the patient agreed to corticosteroid injection. ??The area was marked and cleaned in the usual sterile fashion using Betadine and alcohol. ??Ethyl chloride for topical anesthesia. ??The injection was performed at the left shoulder subacromial space using 1% plain Lidocaine and 40 mg of Kenalog. This was well tolerated. Zeb Blanton III, MD PROCEDURE/MIN OR SURGICAL ORDERABLES * IL DRAIN/INJECT LARGE JOINT/BURSA (10/31/2017 11:23 AM CDT) Narrative Zeb Blanton III, MD - 10/31/2017 11:23 AM CDT Zeb Blanton III, MD ? 10/31/2017 11:23 AM After discussion of risks, benefits, and alternatives, the patient agreed to corticosteroid injection. ??The area was marked and cleaned in the usual sterile fashion using Betadine and alcohol. ??Ethyl chloride for topical anesthesia. ??The injection was performed at the right shoulder subacromial space using 1% plain Lidocaine and 40 mg of Kenalog. This was well tolerated. Zeb Blanton III, MD PROCEDURE/MIN OR SURGICAL ORDERABLES * XR SHOULDER 2+ VW LEFT [IMG83] (10/23/2017 10:20 AM CDT) Anatomical Region Laterality Modality Upper Extremity Radiographic Britt ging 10/23/2017 10:4 4 AM CDT Impressions 10/23/2017 10:45 AM CDT IMPRESSION: Normal. This report was electronically signed by SEVEN MURRAY MD ??on 10/23/2017 10:45 AM . Narrative 10/23/2017 10:45 AM CDT Exam: 1. XR SHOULDER RIGHT 2 view, 2. XR SHOULDER LEFT 2 view History: ??M25.512: Chronic left shoulder pain G89.29: Chronic left shoulder pain Comparison: None. Findings: Right shoulder: No fracture is present. No arthritis is seen at the acromioclavicular or glenohumeral joint. Left shoulder: No fracture is present. No arthritis is seen at the acromioclavicular or glenohumeral joint. Procedure Note Seven Murray MD - 10/23/2017 Exam: 1. XR SHOULDER RIGHT 2 view, 2. XR SHOULDER LEFT 2 view History: M25.512: Chronic left shoulder pain G89.29: Chronic left shoulder pain Comparison: None. Findings: Right shoulder: No fracture is present. No arthritis is seen at the acromioclavicular or glenohumeral joint. Left shoulder: No fracture is present. No arthritis is seen at the acromioclavicular or glenohumeral joint. IMPRESSION: Normal. This report was electronically signed by SEVEN MURRAY MD on10/23/2017 10:45 AM . Maurice Ba MD DIAGNOSTIC IMAGING O RDERABLES * XR SHOULDER 2+ VW RIGHT [IMG84] (10/23/2017 10:20 AM CDT) Anatomical Region Laterality Modality Upper Extremity Radiographic Britt ging 10/23/2017 10:4 4 AM CDT Impressions 10/23/2017 10:45 AM CDT IMPRESSION: Normal. This report was electronically signed by SEVEN MURRAY MD ??on 10/23/2017 10:45 AM . Narrative 10/23/2017 10:45 AM CDT Exam: 1. XR SHOULDER RIGHT 2 view, 2. XR SHOULDER LEFT 2 view History: ??M25.512: Chronic left shoulder pain G89.29: Chronic left shoulder pain Comparison: None. Findings: Right shoulder: No fracture is present. No arthritis is seen at the acromioclavicular or glenohumeral joint. Left shoulder: No fracture is present. No arthritis is seen at the acromioclavicular or glenohumeral joint. Procedure Note Seven Murray MD - 10/23/2017 Exam: 1. XR SHOULDER RIGHT 2 view, 2. XR SHOULDER LEFT 2 view History: M25.512: Chronic left shoulder pain G89.29: Chronic left shoulder pain Comparison: None. Findings: Right shoulder: No fracture is present. No arthritis is seen at the acromioclavicular or glenohumeral joint. Left shoulder: No fracture is present. No arthritis is seen at the acromioclavicular or glenohumeral joint. IMPRESSION: Normal. This report was electronically signed by SEVEN MURRAY MD on10/23/2017 10:45 AM . Maurice Ba MD DIAGNOSTIC IMAGING O RDERABLES * XR SPINE ENTIRE 2 OR 3VW (10/23/2017 8:47 AM CDT) Anatomical Region Laterality Modality Radiographic Britt ging 10/23/2017 8:50 AM CDT Impressions 10/23/2017 9:11 AM CDT IMPRESSION: No significant scoliosis. Report dictated by Jacklyn Tello MD (resident in diagnostic radiology). Dr. SEVEN Braun MD have personally reviewed and interpreted this examination/study. This report was electronically signed by SEVEN MURRAY MD ??on 10/23/2017 9:11 AM . Narrative 10/23/2017 9:11 AM CDT EXAMINATION: XR SPINE ENTIRE 2 OR 3 VW HISTORY: Back pain COMPARISON: ??No prior radiograph is available for comparison at the time of this dictation. FINDINGS: There is quality is poor due to body habitus. No significant scoliosis is seen. There is no sagittal or coronal imbalance, or significant pelvic tilt. There is a transitional segment at the lumbosacral junction, likely representing a partially lumbarized S1. The lungs are clear. The visible bowel gas pattern is nonobstructive. Both femoral heads are seated in their respective acetabula. Procedure Note Seven Murray MD - 10/23/2017 EXAMINATION: XR SPINE ENTIRE 2 OR 3 VW HISTORY: Back pain COMPARISON: No prior radiograph is available for comparison at the time of this dictation. FINDINGS: There is quality is poor due to body habitus. No significant scoliosisis seen. There is no sagittal or coronal imbalance, or significant pelvic tilt. There is a transitional segment at the lumbosacral junction,likely representing a partially lumbarized S1. The lungs are clear. The visible bowel gas pattern is nonobstructive. Both femoral heads are seated in their respective acetabula. IMPRESSION: No significant scoliosis. Report dictated by Jacklyn Tello MD (resident in diagnostic radiology). I, Dr. SEVEN MURRAY MD have personally reviewed and interpreted this examination/study. This report was electronically signed by SEVEN MURRAY MD on10/23/2017 9:11 AM . Maurice Ba MD DIAGNOSTIC IMAGING O RDERABLES * PATH CONSULT REFER SPECIMEN (03/01/2004 1:20 PM ADDICTION COUNSELOR) Result CASE NUMBER [id number] [facility] PATH REPORT Comment: ORDERING PHYSICIAN ??FEDERICO RAY SPECIMEN TYPE ?Muscle Biopsy-Right bicep CLINICAL HISTORY ? The patient is a 18-year-old boy with a history of muscle weakness and tenderness that is diffuse and of two years duration. ??The family history is negative for neuromuscular disease. ??Physical exam is normal. Nerve conduction studies are normal. ??Serum muscle enzyme levels are normal. 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 GROSS DESCRIPTION ? The specimen is received fresh, wrapped in gauze, sutured at each end, and normal in color. ??The specimen measures 0.8 x 1.2 x 0.4. ??(lw) *TECHNIQUE ? The following stains were performed on 6 micron thick cryostat sections ?? H/E, Trichrome, PAS, PAS-Diastase, Oil Red O, ATPase pH 4.3, ATPase pH 4.6, ATPase pH 9.4 and NADH. MICROSCOPIC DESCRIPTION ? There is mild variation in myofiber size and fiber diameters range from 40 to 55 microns. ??The fibers are generally polygonal. ??Rare degenerating basophilic fibers are seen. ??Fiber splitting is not present. ??Only occasional internal nuclei are seen. ??There is no significant increase in either endomysial or perifascicular connective tissue. ??Blood vessels are unremarkable, and there is no inflammatory cellular response. With the trichrome stain, no sarcoplasmic inclusions are seen. Histochemically, there is good differentiation of fiber types and subtypes. ??Type grouping is not seen. ??The small fibers appear to be predominantly of type IIB. ??With the oxidative enzyme stain, no significant architectural abnormalities are noted. ??There is no significant increase in glycogen or lipid content. ??(DED/lw) DIAGNOSIS ? DIAGNOSIS ?? RIGHT BICEPS, MUSCLE BIOPSY ?- NO DIAGNOSTIC PATHOLOGIC CHANGE ?(SEE MICROSCOPIC DESCRIPTION AND NOTE). NOTE ?? A morphometric study will be done and reported separately. Additional enzymatic stains will be performed and reported later. Electron microscopy is pending. The performance characteristics of all immunohistochemical and indirect immunofluorescence stains (if any) cited in this report were determined by the Histopathology Laboratory of [facility] (immunohistochemistry) or the Histology Laboratory of [facility] (indirect immunofluorescence) in compliance with CLIA `88 regulations. ??Some of these tests rely on the use of analyte-specific reagents and are subject to specific labeling requirements by the FDA. ??Such tests were developed by the [facility]opathology Laboratory of [facility] or the Histology Laboratory of [facility] and have not been cleared or approved by the FDA. ??The FDA has determined that such clearance or approval is not necessary. ??These tests are used for clinical purposes and should not be regarded as investigational or for research. This case has been personally reviewed and interpreted by the attending (teaching) pathologist. *ELECTRON MICROSCOPY ? There is a normal periodicity to the AI and Z bands. ??Focal contraction artifact is present. ??A mild increase in lipid content is noted. ??A mild increase in glycogen content is also present. ??Mitochondria are not increased in number or size. ??Mitochondrial internal architecture is normal. ?? (DED/pg) *EM INTERPRETATION ? RIGHT BICEPS, MUSCLE BIOPSY - NO DIAGNOSTIC PATHOLOGIC CHANGE. *MORPHOMETRY STUDY ? A morphometric study was performed. ??The mean diameter of type I fibers is 52 microns. ??The mean diameter of type II fibers is 60 microns. ??This difference in myofiber size diameter does not suggest a diagnosis of fiber type disproportion. *ADDENDUM 1 ? The following histochemical stains were performed ?? adenylate deaminase, cytochrome oxidase, phosphofructokinase, and myophosphorylase. ??Enzyme activity is present with all these stains. ??(DED/pg) Coal Picker ? Ho Valera PATHOLOGIST ?Teresa Amanda M.D. ELECTRONICALLY JOELTERESA COLLAZO MISCELLANEOUS SAMPLES / Unknown 03/01/2004 1:20 PM ADDICTION COUNSELOR 03/01/2004 1:21 PM ADDICTION COUNSELOR Historical Provider MD LAB - PATHOLOGY/C YTOLOGY ORDERABLES [facility] PATH REPORT * GROSS + MICRO EXAM (03/29/2003 10:10 AM ADDICTION COUNSELOR) Result CASE NUMBER [id number] [facility] PATH REPORT Comment: ORDERING PHYSICIAN ??NAOMI KHAN SPECIMEN TYPE ?Muscle Biopsy-Quadriceps CLINICAL HISTORY ? The patient is a 17-year-old boy with GERD, two year history of myalgias of the back, upper and lower extremities, pain is constant it occurs both at rest at with movement. ??The patient has elevated CPK and Aldolase. ??The clinical diagnosis is rule out mitochondrial myopathy. GROSS DESCRIPTION ? Submitted fresh at room temperature, wrapped in moistened gauze and sutured to a tongue depressor, with adequate orientation, is a 2.3 x 1.3 x 0.7 cm portion of red-brown skeletal muscle. ??The specimen is submitted in toto. ??(CAV/akn) MICROSCOPIC DESCRIPTION ? 1 H/E, 1 Trichrome, 1 PAS, 1 PAS Diastase, 1 Oil Red O, 1 ATPase pH 4.3, 1 ATPase pH 4.6, 1 ATPase pH 9.4, 1 NADH Sections show an adequate, well oriented biopsy of skeletal muscle with mild freeze artifact. ??There is no increase in endomysial or perimysial connective tissue or inflammatory infiltrate. ??Muscle fiber size is mildly variable with occasional slightly atrophic fibers scattered throughout the biopsy. ??There is no increase in muscle fiber lipid, and ragged red fibers are not identified. Histochemistry to demonstrate myosin ATPase shows no type grouping. ?? The predominant fiber type is type II. ??There is a tendency of the type II fibers to be smaller than the type I fibers. ??This change will be investigated further with a morphometric evaluation of the biopsy. ?? Myofibrillar architecture shows no significant alteration. ??(CAV/akn) DIAGNOSIS ? DIAGNOSIS ??SKELETAL MUSCLE, LEFT QUADRICEPS ?- MILD ALTERATIONS, SEE COMMENT AND DESCRIPTION. COMMENT ??This muscle biopsy shows mild alterations that do not suggest a specific diagnosis. ??The biopsy will be evaluated further with special histochemistries and also with electron microscopy, and the results of these special studies will be issued as addendum reports. The performance characteristics of all immunohistochemical and indirect immunofluorescence stains (if any) cited in this report were determined by the [facility] Laboratory of [facility] (immunohistochemistry) or the [facility]ology Laboratory of [facility] (indirect immunofluorescence) in compliance with CLIA `88 regulations. ??Some of these tests rely on the use of analyte-specific reagents and are subject to specific labeling requirements by the FDA. ??Such tests were developed by the [facility] Laboratory of [facility] or the [facility]ology Laboratory of [facility] and have not been cleared or approved by the FDA. ??The FDA has determined that such clearance or approval is not necessary. ??These tests are used for clinical purposes and should not be regarded as investigational or for research. This case has been personally reviewed and interpreted by the attending (teaching) pathologist. *ELECTRON MICROSCOPY ? ([id number]) Ultrastructural evaluation of the muscle biopsy shows muscle cells covered by a single layer of lamina densa. ??The surfaces are slightly undulating. ??I, A, and Z bands are generally normally aligned. ??There is no overall increase in the number of mitochondria. ??Mitochondria are not abnormally shaped or enlarged. ??There are rare intramitochondrial crystalline inclusions identified. ??Cristae are not abnormally oriented. ??A single filamentous body and a single tubular aggregate are identified in the subsarcolemmal location. ??(CAV/akn) *EM INTERPRETATION ? COMMENT ??Ultrastructural evaluation of this muscle biopsy shows very rare crystalline inclusions within the mitochondrial matrix. ??This finding may indicate a mitochondrial abnormality. ??Additional testing of the patient's biopsy for mitochondrial DNA mutations or mitochondrial enzyme analysis may be useful in the further evaluation of this patient and can be performed if clinically indicated and requested. ??Also seen is a subsarcolemmal tubular aggregate. ??Tubular aggregates have been observed in several neuromuscular disorders and are occasionally seen in biopsies from normal individuals. *MORPHOMETRY STUDY ? Morphometric evaluation of this muscle biopsy shows the following findings ?? Fiber Type ?Number ?Mean Fiber Diameter (microns) Type I fibers ? 33 ?49 Type IIA fibers ? 99 ?38 COMMENT ??Morphometric evaluation of this muscle biopsy shows a slight tendency to hypotrophy of type II fibers. ??This is a nonspecific change that may be seen in a number of settings including disuse, myasthenia polymyalgia, vasculitis, osteomalacia, alcoholism, rheumatoid arthritis, hypothyroidism, rarely in acute denervation, in patients receiving steroids, with uremia, upper motor neuron deficits or remote neoplasms. (CAV/ls/akn) *ADDENDUM 1 ? EM #[id number]. Four 1 micron thick toluidine blue stained sections of the muscle biopsy are examined at the light microscopic level. ??Block 1 shows well-oriented fibers in longitudinal section and this block will be thin-sectioned. ??(CAV/amc) *ADDENDUM 2 ? Special histochemistry demonstrates the presence of cytochrome oxidase, phosphofructokinase, adenylate deaminase, and myophosphorylase within the muscle cell cytoplasm. Coal Picker ? Anais Ruggiero PATHOLOGIST ?Clara Macias M.D. ELECTRONICALLY CLARA HONG MISCELLANEOUS SAMPLES / Unknown 03/29/2003 10:10 AM ADDICTION COUNSELOR 03/29/2003 10:25 AM ADDICTION COUNSELOR Historical Provider MD NAIK - PATHOLOGY/C YTOLOGY ORDERABLES [facility] PATH REPORT * GROSS EXAM PATHOLOGY (11/10/2002 12:50 PM CDT) Result CASE NUMBER [id number] [facility] PATH REPORT Comment: ORDERING PHYSICIAN ??SHAUN RICH SPECIMEN TYPE ?Tonsils / Adenoids CLINICAL HISTORY ? The patient is a 17-year-old boy with obstructive sleep apnea. GROSS DESCRIPTION ? The specimen labeled with the patient's name and tonsils and adenoids is received fresh for gross examination only and consists of two egg- shaped, pink-ryan tonsils measuring 3.0 x 1.5 x 1.3 cm and 2.8 x 1.8 x 1.4 cm weighing approximately 9.0 gms combined. ??On cut surface, the tonsils have a cerebriform yellow-ryan appearance. ??No sections are taken. ??Also submitted in the same container are multiple fragments of pink-ryan lymphoid tissue admixed with dark red blood clot with an aggregate measurement of 2.5 x 1.5 x 0.5 cm weighing approximately 1.0 gm. ??No sections are taken. ??(CT/lw) GROSS DIAGNOSIS ? GROSS DIAGNOSIS ??TONSILS AND ADENOIDS. This case has been personally reviewed and interpreted by the attending (teaching) pathologist. Coal Picker ? Ho Valera PATHOLOGIST ?Carolee Abbott M.D. ELECTRONICALLY JOEL CAROLEE MILLIGAN MISCELLANEOUS SAMPLES / Unknown 11/10/2002 12:50 PM CDT 11/10/2002 2:37 PM CDT Historical Provider MD LAB - PATHOLOGY/C YTOLOGY ORDERABLES [facility] PATH REPORT
--- OUTSIDE RECORDS SUMMARY | 2024-04-04 19:28 | XMS_ITS | Referral Summary ---
Author Organization [facility] Address [address] [place] [address] Care Team Providers Care Director Clinical Information Services Name Role Phone Unavailable Primary Care Provider Unavailabl e Source Comments [facility],non-owned Affiliates and Associated Physician Practices is amultiple site organization consisting of ambulatory clinics and hospital sitesin [place], [place], [place] and [place]. This disclosure is being madepursuant to the Care Everywhere program and may not contain all information available regarding this patient. Last updated 17.[facility] Allergies Active Allergy Reactions Criticality Noted Date [...] 10/28/2017 11:00 AM CDT Plan of Treatment Not on file
--- OUTSIDE RECORDS SUMMARY | 2024-04-04 19:29 | XMS_ITS | Encounter Summary ---
Author Organization [facility] Address [address] [place] [address]. [place], [place] [address] [place] [id number] Care Team Providers Care Medical Services Manager Name Role Phone Starla Parham MD Primary Care Provider [phone] Encounter Details Date Type Department Care Team (Latest Contact Info) Description 10/31/2021 Travel Social History Tobacco Use Types Packs/Day Years Used Date Smoking Tobacco: Never Smokeless Tobacco: Never Alcohol Use Standard Drinks/Week Comments Yes 0 (1 standard drink = 0.6 oz pur e alcohol) very rarely Sex and Gender Information Value Date Recorded Sex Assigned at Not on file Legal Sex Male 8:30 PM CDT Gender Identity Not on file Sexual Orientation Not on file COVID-19 Exposure Response Date Recorded In the last 10 days, have yo u been in contact with someone who was confirmed or suspected to have Coronavirus/COVID-19? No / Unsure 10/31/2021 5:20 PM CDT documented as of this encounter Plan of Treatment Not on file documented as of this encounter Visit Diagnoses Not on filedocumented in this encounter Care Teams Medical Services Manager Relationship Specialty Start Date End Date Starla Parham MD PCP - General FAMILY PRACTICE 11/17/20 documented as of this encounter
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
--- OUTSIDE RECORDS SUMMARY | 2024-04-04 19:29 | XMS_ITS | Encounter Summary ---
Author Organization [facility] Address [address] [place] [address]. [place] [address] [place] [address] Care Team Providers Care Director Of Teenage Activities Name Role Phone Starla Parham MD Primary Care Provider [phone] Encounter Details Date Type Department Care Team (Late st Contact Info) Description 11/08/2021 Orders Only [facility] [address] [place], [place] [id number] Starla Parham MD [facility] [place], [place] [id number] Social History Tobacco Use Types Packs/Day Years [...] suspected to have Coronavirus/COVID-19? No / Unsure 11/08/2021 3:15 PM CDT documented as of this encounter Plan of Treatment Not on file documented as of this encounter Results * MICROALBUMIN CREAT RATIO, URINE RANDOM (11/08/2021 3:29 PM CDT) CREATININE (U) 194.0 39 - 259 MG/DL 11/08/2021 4:44 PM CDT [facility] MICROALBUMIN (U) 1.9 <2.0 mg/dL 11/09/19 4:44 PM CDT [facility] ALBUMIN/CREAT RATIO 9.6 <30 MG/G 11/08/2021 4:44 PM CDT [facility] URINE SPECIMEN / Unknown 11/08/2021 3:29 PM CDT Starla Parham MD URINE ORDERABLES Final Result Performing Organization Address City/[facility]/ZIP Co de Phone Number [facility] [address] [place] [address], [place] [phone] * TSH W/REFLEX (11/08/2021 3:23 PM CDT) TSH 2.860 0.358 - 3.74 uIU/ML 11/08/2021 4:21 PM CDT [facility] Comment: HIGH DOSES OF BIOTIN MAY INTERFERE WITH THIS TEST RESULT. CORRELATION TO CLINICAL HISTORY AND PRESENTATION RECOMMENDED. FREE T4 NOT INDICATED 11/08/2021 3:23 PM CDT us Starla Parham MD LABORATORY Final Result Performing Organization Address City/[facility]/ZIP Co de Phone Number [facility] [address] [place] [address], [place] [phone] * (ABNORMAL) BASIC METABOLIC PANEL (11/08/2021 3:23 PM CDT) GLUCOSE 90 70 - 99 MG/DL 11/08/2021 4:21 PM CDT [facility] BUN 8 7 - 18 MG/DL 11/08/2021 4:21 PM CDT [facility] CREATININE S/P/B 0.93 0.7 - 1.3 MG/DL 11/08/2021 4:21 PM CDT [facility] SODIUM S/P/B 138 136 - 145 MMOL/L 11/08/2021 4:21 PM CDT [facility] POTASSIUM S/P/B 3.8 3.5 - 5.1 MMOL/L 11/08/2021 4:21 PM CDT [facility] CHLORIDE S/P/B 107 100 - 108 MMOL/L 11/08/2021 4:21 PM CDT [facility] CO2 27.1 21 - 32 MMOL/L 11/08/2021 4:21 PM CDT [facility] CALCIUM S/P/B 9.7 8.5 - 10.1 MG/DL 11/08/2021 4:21 PM CDT [facility] ANION GAP 3.9(L) 5 - 15 MMOL/L 11/08/2021 4:21 PM CDT [facility] BUN CREATININE RATIO 8.6 6 - 26 11/08/2021 4:21 PM CDT [facility] GFR ESTIMATE >90 >90 ML/MIN/1.7 3 M2 11/08/2021 4:21 PM CDT [facility] Comment: NOTE: eGFR is not calculated for patients <18 years of age. This is an estimated GFR calculation using the new CKD EPI creatinine equation without race and so does not require a correction factor for race. This estimated GFR should not be used for calculating drug doses. 11/08/2021 3:23 PM CDT us Strala Parham MD LABORATORY Final Result [facility] [address] [place] [address], [place] [phone] * CBC, AUTO, NO DIFF (11/08/2021 3:23 PM CDT) WBC 7.7 4.5 - 11.0 x10'3/uL 11/08/2021 3:43 PM CDT [facility] RBC 4.99 4.70 - 6.10 x10'6/uL 11/08/2021 3:43 PM CDT [facility] HGB 14.8 14.0 - 18.0 G/DL 11/08/2021 3:43 PM CDT [facility] HCT 44.5 43.0 - 54.0 % 11/08/2021 3:43 PM CDT [facility] MCV 89.2 80.0 - 94.0 FL 11/08/2021 3:43 PM CDT [facility] MCH 29.7 27.0 - 31.0 PG 11/08/2021 3:43 PM CDT [facility] MCHC 33.3 32.0 - 36.0 G/DL 11/08/2021 3:43 PM CDT [facility] RDW 12.4 11.5 - 14.5 % 11/08/2021 3:43 PM CDT [facility] PLT 290 130 - 400 x10'3/uL 11/08/2021 3:43 PM CDT [facility] MPV 9.8 9.3 - 12.2 FL 11/08/2021 3:43 PM CDT [facility] 11/08/2021 3:23 PM CDT us Starla Parham MD LABORATORY Final Result [facility] [address] [place] [address], [place] [phone] documented in this encounter Visit Diagnoses Diagnosis Essential (primary) hypertension- Primary Unspecified essential hypertension documented in this encounter Care Teams Director Of Teenage Activities Relationship Specialty Start Date End Date Starla Parham MD PCP - General FAMILY PRACTICE 11/17/20 documented as of this encounter
--- OUTSIDE RECORDS SUMMARY | 2024-04-04 19:29 | XMS_ITS | Encounter Summary ---
Author Organization [facility] Address [address] [place] [address]. [place], [place] [id number] [place] [address] Care Team Providers Care Staff Nurse Name Role Phone Starla Parham MD Primary Care Provider [phone] Encounter Details Date Type Department Care Team (Latest Contact Info) Description 06/06/2022 Travel Social History Tobacco Use Types Packs/Day [...] suspected to have Coronavirus/COVID-19? No / Unsure 06/06/2022 3:31 PM [employer] CONTR[employer] OFFICER documented as of this encounter Plan of Treatment Not on file documented as of this encounter Visit Diagnoses Not on filedocumented in this encounter Additional Health Concerns Infection Onset Date Last Indicated Resolved Time COVID-19 Rule Out 06/06/2022 06/06/2022 06/06/2022 9:11 PM AIR CONTR[employer] OFFICER COVID-19 Confirmed 06/06/2022 06/06/2022 12:32 AM CDT documented as of this encounter Care Teams Staff Nurse Relationship Specialty Start Date End Date Starla Parham MD PCP - General FAMILY PRACTICE 11/17/20 documented as of this encounter
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
--- OUTSIDE RECORDS SUMMARY | 2024-04-04 19:29 | XMS_ITS | Encounter Summary ---
Author Organization [facility] Address [address] [place] [address]. [place], [place] [id number] [place] [address] Care Team Providers Care Can Sealer Name Role Phone Starla Parham MD Primary Care Provider [phone] Encounter Details Date Type Department Care Team (Latest Contact Info) Description 11/08/2021 Travel Social History Tobacco Use Types Packs/Day [...] on filedocumented in this encounter Care Teams Can Sealer Relationship Specialty Start Date End Date Starla Parham MD PCP - General FAMILY PRACTICE 11/17/20 documented as of this encounter
--- OUTSIDE RECORDS SUMMARY | 2024-04-04 19:29 | XMS_ITS | Encounter Summary ---
Author Organization [facility] Address [address] [place] [address] Care Team Providers Care Banking Paralegal Name Role Phone Unavailable Primary Care Provider Unavailabl e Encounter Details Date Type Department Care Team (Late st Contact Info) Description 11/10/2002 Orders Only [facility] - Laboratory [address] [place] [address] [id number] ProviderAngie MD Social History Tobacco Use Types Packs/Day Years Used Date Smoking Tobacco: Never Assessed Sex and Gender Information Value Date Recorded Sex Assigned at Not on file Gender Identity Not on file Sexual Orientation Not on file documented as of this encounter Plan of Treatment Not on file documented as of this encounter Procedures Procedure Name Priority Date/Time Associated Diagnosis Comments PATH CONSULT REFER SPECIMEN [facility] 03/01/2004 1:20 PM AMMONIA DISTILLER GROSS + MICRO EXAM [facility] 03/29/2003 10 :10 AM AMMONIA DISTILLER GROSS EXAM PATHOLOGY [facility] 11/10/2002 12:50 PM CDT documented in this encounter Results * PATH CONSULT REFER SPECIMEN (03/01/2004 1:20 PM AMMONIA DISTILLER) Result CASE NUMBER [id number] [facility] PATH REPORT Comment: ORDERING PHYSICIAN ??FEDERICO [...] were determined by the Histopathology Laboratory of [facility] (immunohistochemistry) or the Histology Laboratory of [facility] (indirect immunofluorescence) in compliance with CLIA `88 regulations. ??Some of these tests rely on the use of analyte-specific reagents and are subject to specific labeling requirements by the FDA. ??Such tests were developed by the Histopathology Laboratory of [facility] or the Histology Laboratory of [facility] and have not been cleared or approved [...] is present with all these stains. ??(DED/pg) Internet Salesperson ? Ho Valera PATHOLOGIST ?Teresa Amanda M.D. ELECTRONICALLY JOELTERESA COLLAZO MISCELLANEOUS SAMPLES / Unknown 03/01/2004 1:20 PM AMMONIA DISTILLER 03/01/2004 1:21 PM AMMONIA DISTILLER Historical Provider LAB - PATHOLOGY/C YTOLOGY ORDERABLES [facility] PATH REPORT * GROSS + MICRO EXAM (03/29/2003 10:10 AM AMMONIA DISTILLER) Result CASE NUMBER [id number] [facility] PATH REPORT Comment: ORDERING PHYSICIAN ??NAOMI [...] were determined by the Histopathology Laboratory of [facility] (immunohistochemistry) or the Histology Laboratory of [facility] (indirect immunofluorescence) in compliance with CLIA `88 regulations. ??Some of these tests rely on the use of analyte-specific reagents and are subject to specific labeling requirements by the FDA. ??Such tests were developed by the Histopathology Laboratory of [facility] or the Histology Laboratory of [facility] and have not been cleared or approved by the FDA. ??The FDA has determined that such clearance or approval is not necessary. ??These tests are used for clinical purposes and should not be regarded as investigational or for research. This case has been personally reviewed and interpreted by the attending (teaching) pathologist. *ELECTRON MICROSCOPY ? ([id number]) Ultrastructural evaluation of the muscle biopsy shows [...] remote neoplasms. (CAV/ls/akn) *ADDENDUM 1 ? EM #[id number]. Four 1 micron thick toluidine blue stained sections of the muscle biopsy are examined at the light microscopic level. ??Block 1 shows well-oriented fibers in longitudinal section and this block will be thin-sectioned. ??(CAV/amc) *ADDENDUM 2 ? Special histochemistry demonstrates the presence of cytochrome oxidase, phosphofructokinase, adenylate deaminase, and myophosphorylase within the muscle cell cytoplasm. Internet Salesperson ? Anais Ruggiero PATHOLOGIST ?Clara Macias M.D. ELECTRONICALLY CLARA HONG MISCELLANEOUS SAMPLES / Unknown 03/29/2003 10:10 AM AMMONIA DISTILLER 03/29/2003 10:25 AM AMMONIA DISTILLER Historical Provider MD LAB - PATHOLOGY/C YTOLOGY ORDERABLES [facility] PATH REPORT * GROSS EXAM PATHOLOGY (11/10/2002 12:50 PM CDT) Result CASE NUMBER [id number] [facility] PATH REPORT Comment: ORDERING PHYSICIAN ??SHAUN [...] and interpreted by the attending (teaching) pathologist. Internet Salesperson ? Ho Valera PATHOLOGIST ?Bienvenido Abbott M.D. ELECTRONICALLY BIENVENIDO DEE MISCELLANEOUS SAMPLES / Unknown 11/10/2002 12:50 PM CDT 11/10/2002 2:37 PM CDT Historical Provider LAB - PATHOLOGY/C YTOLOGY ORDERABLES [facility] PATH REPORT documented in this encounter Visit Diagnoses Not on filedocumented in this encounter
--- OUTSIDE RECORDS SUMMARY | 2024-04-04 19:29 | XMS_ITS | Encounter Summary ---
Author Organization [facility] Address [address] [facility] [place] [address] Care Team Providers Care School Bus Mechanic Name Role Phone Sara Parks [employer]CHO[employer] RESOURCE TEACHER-RECYCLING OPERATIONS MANAGER Primary Care Provider Encounter Details Date Type Department Care Team (Late st Contact Info) Description 10/03/2017 Orders Only [facility] [address] [place] [address] Maurice Ba MD [address] [address] Back pain, unspecified back location, unspecified back pain laterality, unspecified chronicity Social History Tobacco Use Types Packs/Day Years Used Date Smoking Tobacco: Never Assessed Sex and Gender Information Value Date Recorded Sex Assigned at Not on file Gender Identity Not on file Sexual Orientation Not on file documented as of this encounter Plan of Treatment Not on file documented as of this encounter Results * XR SPINE ENTIRE 2 OR 3VW (10/23/2017 8:47 AM CDT) Anatomical Region Laterality Modality Radiographic Britt ging 10/23/2017 8:50 AM CDT Impressions 10/23/2017 9:11 AM CDT IMPRESSION: No significant scoliosis. Report dictated by Jacklyn Tello MD (manager residential). I, Dr. SEVEN MURRAY MD have personally [...] scoliosis. Report dictated by Jacklyn Tello MD (manager residential). I, Dr. SEVEN MURRAY MD have personally reviewed and interpreted this examination/study. This report was electronically signed by SEVEN MURRAY MD on10/23/2017 9:11 AM . Maurice Ba MD DIAGNOSTIC IMAGING O RDERABLES documented in this encounter Visit Diagnoses Diagnosis Back pain, unspecified back location, unspecified back pain laterality, unspecified chronicity- Primary documented in this encounter Care Teams School Bus Mechanic Relationship Specialty Start Date End Date Sara Parks, [employer]CHO[employer] RESOURCE TEACHER-RECYCLING OPERATIONS MANAGER [address] [place] [phone] PCP - General 10/28/17 04/25/20 documented as of this encounter
--- OUTSIDE RECORDS SUMMARY | 2024-04-04 19:29 | XMS_ITS | Encounter Summary ---
Author Organization [facility] Address [address] [facility] [place] [address] Care Team Providers Care Administrative Services Assistant Name Role Phone Unavailable Primary Care Provider Unavailabl e Reason for Visit * Reason Onset Date Comments Referral 10/23/2017 Encounter Details Date Type Department Care Team (Late st Contact Info) Description 10/23/2017 Telephone [facility] [address] [place] [id number] [facility] Referral Social History Tobacco Use Types Packs/Day Years Used Date Smoking Tobacco: Never Smokeless Tobacco: Never Alcohol Use Standard Drinks/Week Comments Yes 0 (1 standard drink = 0.6 oz pur e alcohol) OCCASSIONALLY Sex and Gender Information Value Date Recorded Sex Assigned at Not on file Gender Identity Not on file Sexual Orientation Not on file documented as of this encounter Miscellaneous Notes * Telephone Encounter - [facility] - 10/23/2017 12:36 PM CDT Left patient voice message to schedule for left shoulder with Sports Medicine provider. documented in this encounter Plan of Treatment Not on file documented as of this encounter Visit Diagnoses Not on filedocumented in this encounter
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
--- OUTSIDE RECORDS SUMMARY | 2024-04-04 19:29 | XMS_ITS | Encounter Summary ---
Author Organization [facility] Address [address] [place] [address]. [place], [place] [id number] [id number] Care Team Providers Care Corporate Sales Trainer Name Role Phone Starla Parham MD Primary Care Provider [phone] Reason for Visit * Reason Comments Flu Like Symptoms Encounter Details Date Type Department Care Team (Latest Contact Info) Description 06/06/2022 3:32 PM FIELD SUPPORT ENGINEER - 06/06/2022 5:33 PM FIELD SUPPORT ENGINEER Hospital Encounter [facility] [address] [place] [id number] Penelope Barfield, FINAL INSPECTOR AND TESTER [address] [place] [id number] Flu Like Symptoms Discharge Disposition: Home or Self Care (Routine Discharge) Social History Tobacco Use Types Packs/Day Years [...] Coronavirus/COVID-19? No / Unsure 06/06/2022 3:31 PM FIELD SUPPORT ENGINEER documented as of this encounter Last Filed Vital Signs Vital Sign Reading Time Taken Comments Blood Pressure 140/95 06/06/2022 5:13 PM FIELD SUPPORT ENGINEER Pulse 110 06/06/2022 5:10 PM FIELD SUPPORT ENGINEER Temperature 37.8 ??C (100 ??F) 06/06/2022 5:10 PM FIELD SUPPORT ENGINEER Respiratory Rate 18 06/06/2022 5:10 PM FIELD SUPPORT ENGINEER Oxygen Saturation 100% 06/06/2022 5:10 PM FIELD SUPPORT ENGINEER Inhaled Oxygen Concentration - - Weight 136.1 kg (300 lb) 06/06/2022 3:42 PM FIELD SUPPORT ENGINEER Height 180.3 cm (5' 11 ) 06/06/2022 3:42 PM FIELD SUPPORT ENGINEER Body Mass Index 41.84 06/06/2022 3:42 PM FIELD SUPPORT ENGINEER documented in this encounter Discharge Instructions * Attachments The following attachments cannot be sent through Care Everywhere. * Viral Syndrome Discharge Instructions (Guyanese) documented in this encounter Medications at Time of Discharge albuterol sulfate HFA 108 (90 Base) MCG/ACT inhaler Inhale 2 puffs into the lungs every 6 (six) hours as needed for Wheezing. 8 g 2 amLODIPine (NORVASC) 5 MG tablet Take 5 mg by mouth daily. 2 atorvastatin (LIPITOR) 40 MG tablet Take 40 mg by mouth daily. 2 metFORMIN 500 MG tablet Take 1 tablet (500 mg total) by mouth 2 (two) times daily with meals. 60 tablet 9 ondansetron (ZOFRAN-ODT) 4 MG disintegrating tablet Take 1 tablet (4 mg total) by mouth every 8 (eight) hours as needed for Nausea. 20 tablet 3 lisinopril (PRINIVIL) 10 MG tablet Take 10 mg by mouth daily. 2 07/10/19 23 methylPREDNISolone, MAHENDRA, (MEDROL DOSEPAK) 4 MG tablet 6 TABLETS ON DAY ONE, 5 TABLETS DAY TWO, 4 TABLETS DAY THREE, 3 TABLETS DAY FOUR, 2 TABLETS DAY FIVE, AND 1 TABLET DAY SIX 1 each 2 07/10/19 23 nirmatrelvir & ritonavir 300/100 (PAXLOVID, 300/100,) 20 x 150 MG & 10 x 100MG tablet pack Take TWO nirmatrelvir 150 mg tablet(s) along with ONE ritonavir 100 mg tablet, with all THREE tablets taken together, twice daily for 5 days. May take with or without food. Swallow tablets whole. Do not chew, break or crush.. 30 tablet 3 07/10/19 23 documented as of this encounter Progress Notes * Aleksandra Elizalde MD - 06/06/2022 5:33 PM CST Chart reviewed and patient is been symptomatic for the past 2 days and did receive fluids here and continues to have a lot of fatigue and cough. 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 He is agreeable to starting a course of Paxlovid for the next5 days. Past results were reviewed and GFR was more than 90 about 6 months ago. Prescription calledin for Paxlovid to [facility] pharmacy. D SUPPORT ENGINEER documented in this encounter ED Notes * Aleksandra Elizalde MD - 06/06/2022 3:47 PM CST [place], [place] HISTORICAL INFORMATION Primary Care Doctor: Starla Parham MD Patient information was obtained primarily from the patient, nursing notes. History/Exam limitations: None Provider at Bedside None CHIEF COMPLAINT Flu Like Symptoms Chief Complaint Patient presents with ??? Flu Like Symptoms HPI Oscar Rehman is a 36-year-old male who presents with sore throat, fever, chills, body aches and fatigue x 1 day. He denies cough, congestion, sob. Reports nausea and vomiting starting this am.Patient reports taking otc fever reducers with limited relief. PAST MEDICAL HISTORY Past Medical History: Diagnosis Date ??? Asthma ??? Depression ??? Diabetes mellitus (CMS/HCC) ??? Hypertension ??? IBS (irritable bowel syndrome) ??? Ulcerative colitis (CMS/HCC) SURGICAL HISTORY Past Surgical History: Procedure Laterality Date ??? COLONOSCOPY CURRENT MEDICATIONS No current facility-administered medications for this encounter. Current Outpatient Medications: ??? ondansetron (ZOFRAN-ODT) 4 MG disintegrating tablet, Take 1 tablet (4 mg total) by mouth every 8 (eight) hours as needed for Nausea., Disp: 20 tablet, Rfl: 0 ??? albuterol sulfate HFA 108 (90 Base) MCG/ACT inhaler, Inhale 2 puffs into the lungs every 6 (six) hours as needed for Wheezing., Disp: 8 g, Rfl: 0 ??? amLODIPine (NORVASC) 5 MG tablet, Take 5 mg by mouth daily., Disp: , Rfl: ??? atorvastatin (LIPITOR) 40 MG tablet, Take 40 mg by mouth daily., Disp: , Rfl: ??? lisinopril (PRINIVIL) 10 MG tablet, Take 10 mg by mouth daily., Disp: , Rfl: ??? metFORMIN 500 MG tablet, Take 1 tablet (500 mg total) by mouth 2 (two) times daily with meals. (Patient taking differently: Take 1,000 mg by mouth 2 (two) times daily with meals. ), Disp: 60 tablet, Rfl: 0 ??? methylPREDNISolone, MAHENDRA, (MEDROL DOSEPAK) 4 MG tablet, 6 TABLETS ON DAY ONE, 5 TABLETS DAY TWO,4 TABLETS DAY THREE, 3 TABLETS DAY FOUR, 2 TABLETS DAY FIVE, AND 1 TABLET DAY SIX, Disp: 1 each, Rfl: 0 ALLERGIES Allergies Allergen Reactions ??? Morphine Other (see comment) Bradycardia. FAMILY HISTORY Family History Problem Relation Name Age of Onset ??? No Known Problems Mother ??? Cancer Father ??? Cancer Brother SOCIAL HISTORY Social History Socioeconomic History ??? Marital status: Single Tobacco Use ??? Smoking status: Never ??? Smokeless tobacco: Never Vaping Use ??? Vaping Use: Never used Substance and Sexual Activity ??? Alcohol use: Yes Comment: very rarely ??? Drug use: No REVIEW OF SYSTEMS Constitutional: Reports fever, chills and body aches. Skin: Denies rash. HEENT: Reports sore throat, denies ear pain. Respiratory: Denies cough or shortness of breath. Cardiovascular: Denies chest pain. GI: Denies abdominal pain, reports nausea and vomiting. : Denies dysuria, urinary frequency. Musculoskeletal: Denies back pain. Neurologic: Denies headache, focal weakness. Psychiatric: Denies depression, suicidal ideation or homicidal ideation. See HPI for further details. All systems negative except as marked. Physical Exam VITAL SIGNS: Filed Vitals: 06/06/22 1542 06/06/22 1546 BP: (!) 167/106 (!) 152/100 Pulse: (!) 120 Resp: 18 Temp: 99.3 ??F (37.4 ??C) TempSrc: Temporal SpO2: 98% Weight: 136.1 kg (300 lb) Height: 5' 11 (1.803 m) Constitutional: Well developed, No acute distress, ill in appearance. Integument: Warm, Dry HEENT: Normocephalic, Atraumatic, throat with mild erythema, no exudate. Neck/Back- Normal range of motion, No gross abnormality, no cervical lymphadenopathy Respiratory: Normal breath sounds, No respiratory distress. Cardiovascular: Normal heart rate, Normal rhythm GI: Soft, No tenderness with palpation, bs wnl Musculoskeletal: Good ROM, no deformities noted Neurologic: Alert, No focal deficits noted. Psychiatric: Affect normal, Judgment normal, Mood normal. EKG (interpreted by ED provider) No results found for this visit on 06/06/22. LABORATORY Results for orders placed or performed during the hospital encounter of 06/06/22 Bedside Blood Glucose Result Value Ref Range GLUCOSE WHOLE BLOOD 88 70 - 100 mg/dL POCT glucose Result Value Ref Range GLUCOSE POC 88 70 - 99 mg/dL RADIOLOGY No orders to display PROCEDURES Procedures MDM Rapid strep is negative at this time. Covid aind influenza pending. Patient hydrated and given IV Zofran at this time. Reports feeling much better. Discussed hydration and otc medication for symptom relief. Patient's vss at this time and stable for discharge. I have discussed today's findings with the patient and provided information regarding the likely diagnosis. The patient has been given information regarding their treatment, follow up and concerning symptoms for which they should seek urgent or emergent attention. I have expressed the the importance of seeking attention should there be any new, or worsening symptoms or persistence of their condition. The patient is stable at discharge and has verbalized understanding of these instructions. Impression/Disposition SNOMED CT(R) 1. Viral illness VIRAL DISEASE Disposition: Discharge Medications sodium chloride 0.9% bolus infusion 1,000 mL (1,000 mLs Intravenous New Bag 06/06/22 162) ondansetron (ZOFRAN) injection 4 mg (4 mg Intravenous Given 06/06/221623) Current Discharge Medication List START taking these medications Details ondansetron (ZOFRAN-ODT) 4 MG disintegrating tablet Take 1 tablet (4 mg total) by mouth every 8 (eight) hours as needed for Nausea. Qty: 20 tablet, Refills: 0 Class: Eprescribe Pharmacy: [facility]/pharmacy [place][id number] [place] [address] [facility] ( #: [phone]) CAIO Koo NP 06/06/22 1730 Left voicemail for patient regarding interaction between atorvastatin and Paxlovid. Advised to takeThe dose of atorvastatin while being on Paxlovid for the next 7 days and to resume the full dose after that. Aleksandra Elizalde MD 06/07/22 0830 D SUPPORT ENGINEER D SUPPORT ENGINEER D SUPPORT ENGINEER * Irvin North RN - 06/06/2022 3:42 PM CST Patient to CC with c/o sore throat, fever, body aches, fatigue, onset yesterday. Last tylenol at 1300. D SUPPORT ENGINEER documented in this encounter Plan of Treatment Not on file documented as of this encounter Procedures Procedure Name Priority Date/Time Associated Diagnosis Comments POCT BEDSIDE BLOOD GLUCOSE STAT 06/06/2022 4:25 PM FIELD SUPPORT ENGINEER POCT GLUCOSE - LOCKE DOCKED DEVICE Routine 06/06/2022 4:13 PM FIELD SUPPORT ENGINEER RAPID STREP A STAT 06/06/2022 3:45 PM FIELD SUPPORT ENGINEER CORONAVIRUS (COVID-19) INFLUENZA A & B ANTIGEN IA PANEL STAT 06/06/2022 3:42 PM FIELD SUPPORT ENGINEER documented in this encounter Results * Bedside Blood Glucose (06/06/2022 4:25 PM FIELD SUPPORT ENGINEER) GLUCOSE WHOLE BLOOD 88 70 - 100 mg/dL Penelope Barfield NP NURSING TREATMENT ORDERABLES - ONCE OR INTERVALS Edited Result - Final * POCT glucose (06/06/2022 4:13 PM FIELD SUPPORT ENGINEER) GLUCOSE POC 88 70 - 99 mg/dL 06/06/2022 4:27 PM FIELD SUPPORT ENGINEER [facility] 06/06/2022 4:13 PM FIELD SUPPORT ENGINEER Penelope Barfield NP POCT ORDERABLES - DEVICE Final Result Performing Organization Address City/[facility]/ZIP Co de Phone Number [facility] [address] [place] [address], * RAPID STREP A (06/06/2022 3:45 PM FIELD SUPPORT ENGINEER) SPECIMEN TYPE THROAT 06/06/2022 3:46 PM FIELD SUPPORT ENGINEER [facility] CARE RAPID STREP TEST NEGATIVE NEGATIVE 06/07/2022 8:53 AM FIELD SUPPORT ENGINEER [facility]IENT CARE STRUCTURE OF ANTERIOR PORTION OF NECK / Unknown 06/06/2022 3:45 PM FIELD SUPPORT ENGINEER Penelope Barfield NP MICROBIOLOGY - GENERAL OR DERABLES Final Result [facility] [place] [address], * (ABNORMAL) CORONAVIRUS (COVID-19) INFLUENZA A & B ANTIGEN IA PANEL (06/06/2022 3:42 PM FIELD SUPPORT ENGINEER) CORONAVIRUS ANTIGEN IA POSITIVE(AA ) NEGATIVE 06/06/2022 9:11 PM FIELD SUPPORT ENGINEER [facility] Comment: THIS TEST HAS BEEN AUTHORIZED BY THE FDA UNDER AN EMERGENCY USE AUTHORIZATION (EUA) FOR USE BY AUTHORIZED LABORATORIES. Successful Call: [id number] called 06/06/2022 09:11 PM to PENELOPE BARFIELD NP ( /JONATHAN CHARLES) by [phone]. INFLUENZA A NEGATIVE NEGATIVE 06/06/2022 9:11 PM FIELD SUPPORT ENGINEER [facility] INFLUENZA B NEGATIVE NEGATIVE 06/06/2022 9:11 PM FIELD SUPPORT ENGINEER [facility] Comment: Interpretation: Negative for Influenza A and B. A negative result does not exclude influenza virus infection. If influenza is circulating in your community, a diagnosis of influenza should be considered based on a patient's clinical presentation and empiric antiviral treatment should be considered, if indicated. If more conclusive testing is needed for hospitalized inpatients, follow-up confirmatory testing with RT-PCR requires a separate order. SPECIMEN TYPE NASAL 06/06/2022 3:46 PM FIELD SUPPORT ENGINEER [facility] CARE FIRST TEST NO 06/06/2022 3:46 PM FIELD SUPPORT ENGINEER [facility] EMPLOYED IN HEALTHCARE NO 06/06/2022 3:46 PM FIELD SUPPORT ENGINEER [facility] SYMPTOMATIC DEFINED BY CDC YES 06/06/2022 3:46 PM FIELD SUPPORT ENGINEER [facility] DATE OF SYMPTOM ONSET [id number] 06/06/2022 3:46 PM FIELD SUPPORT ENGINEER [facility] HOSPITALIZATION STATUS NO 06/06/2022 3:46 PM FIELD SUPPORT ENGINEER [facility] RESIDENT OF CONGREGATE CARE NO 06/06/2022 3:46 PM FIELD SUPPORT ENGINEER [facility] NASAL STRUCTURE / Unknown 06/06/2022 3:42 PM FIELD SUPPORT ENGINEER Penelope Barfield FINAL INSPECTOR AND TESTER MICROBIOLOGY - GENERAL OR DERABLES Final Result [facility] CARE [address] [place] [address], [facility] [address] [place] [address], documented in this encounter Visit Diagnoses Diagnosis Viral illness- Primary Unspecified viral infection, in conditions classified elsewhere and of unspecified site documented in this encounter Administered Medications Inactive Administered Medications - up to 3 most recent administrations Medication Order MAR Action Action Date Dose Rate Site ibuprofen (MOTRIN) tablet 800 mg 800 mg, Oral, Once, 1 dose, On Sat06/06/22 at 1730 Given 06/06/2022 5:13 PM FIELD SUPPORT ENGINEER 800 mg ondansetron (ZOFRAN) 4 MG/2ML injection 1 dose, Starting on Sat06/06/22 at 1603, Until Sat06/06/22 at 1624, Created by cabinet override ondansetron (ZOFRAN) injection 4 mg 4 mg, Intravenous, Once, 1 dose, On Sat06/06/22 at 1630, IV push over 2-5 minutes. Given 06/06/2022 4:24 PM FIELD SUPPORT ENGINEER 4 mg sodium chloride 0.9 % infusion 1 dose, Starting on Sat06/06/22 at 1603, Until Sat06/06/22 at 1711, Created by cabinet override sodium chloride 0.9% bolus infusion 1,000 mL 1,000 mL, Intravenous, Administer over 30 Minutes, Once, 1 dose, On Sat06/06/22 at 1630 New Bag 06/06/2022 4:24 PM FIELD SUPPORT ENGINEER 1,000 mLs documented in this encounter Active and Recently Administered Medications Times are shown in FIELD SUPPORT ENGINEER. Scheduled Medication Order 06/04/2022 06/05/2022 06/06/2022 ibuprofen (MOTRIN) tablet 800 mg (COMPLETED) 800 mg, Oral, Once, 1 dose, On Sat06/06/22 at 1730 1713 (Given - Provid er: Irvin North RN) ondansetron (ZOFRAN) injection 4 mg (COMPLETED) 4 mg, Intravenous, Once, 1 dose, On Sat06/06/22 at 1630, IV push over 2-5 minutes. 1624 (Given - Provid er: Irvin North RN) sodium chloride 0.9% bolus infusion 1,000 mL (COMPLETED) 1,000 mL, Intravenous, Administer over 30 Minutes, Once, 1 dose, On Sat06/06/22 at 1630 1624 (New Bag - Prov ider: Irvin North RN)1711 (Infusion Stop Time - Provider: Irvin North RN) documented in this encounter Additional Health Concerns Infection Onset Date Last Indicated Resolved Time COVID-19 Rule Out 06/06/2022 06/06/2022 06/06/2022 9:11 PM FIELD SUPPORT ENGINEER documented as of this encounter Care Teams Corporate Sales Trainer Relationship Specialty Start Date End Date Starla Parham MD PCP - General FAMILY PRACTICE 11/17/20 documented as of this encounter
--- OUTSIDE RECORDS SUMMARY | 2024-04-04 19:29 | XMS_ITS | Encounter Summary ---
Author Organization [facility] Address [address] [place] [address]. [place], [place] [id number] [place] [id number] Care Team Providers Care On Site Nurse Name Role Phone Starla Parham MD Primary Care Provider [phone] Reason for Visit * Reason Comments Chest Pain C/o chest pressure b eginning Sat night; worsening Cough Encounter Details Date Type Department Care Team (Late st Contact Info) Description 07/09/2022 9:25 AM CDT - 07/09/2022 12:04 PM CDT Emergency [facility] Room [place], [place] [address] Angélica Sexton PA [address] [place] [address] Chest Pain (C/o chest pressure beginning Sat night; worsening ); Cough Discharge Disposition: Home or Self Care (Routine Discharge) Social History Tobacco Use Types Packs/Day Years Used Date Smoking Tobacco: Never Smokeless Tobacco: Never Tobacco Cessation:Counseling Given: Not Answered Alcohol Use Standard Drinks/Week Comments Yes 0 (1 standard drink = 0.6 oz pur e alcohol) occ. Sex and Gender Information Value Date Recorded Sex Assigned at Not on file Legal Sex Male 8:30 PM CDT Gender Identity Not on file Sexual Orientation Not on file COVID-19 Exposure Response Date Recorded In the last 10 days, have yo u been in contact with someone who was confirmed or suspected to have Coronavirus/COVID-19? No / Unsure 07/09/2022 9:36 AM CDT documented as of this encounter Last Filed Vital Signs Vital Sign Reading Time Taken Comments Blood Pressure 138/102 07/09/2022 11:45 AM CDT Pulse 83 07/09/2022 11:45 AM CDT Temperature 36.4 ??C (97.5 ??F) 07/09/2022 9:37 AM CD T Respiratory Rate 20 07/09/2022 11:45 AM CDT Oxygen Saturation 100% 07/09/2022 11:45 AM CDT Inhaled Oxygen Concentration - - Weight 129.3 kg (285 lb) 07/09/2022 9:37 AM CDT Height 180.3 cm (5' 11 ) 07/09/2022 9:37 AM CDT Body Mass Index 39.75 07/09/2022 9:37 AM CDT documented in this encounter Discharge Instructions * Discharge Instructions* DIVYA Blair - 07/09/2022 11:46 AM CDT Continue to take over the counter meds for bronchitis (dayquil/nyquil), mucinex, etc, Drink plenty of fluids. Take steroid as directed. Please return to the ER if symptoms worsen or changes. Your blood pressure is also high today, this may be anxiety or not feeling well but follow up with your doctor to make sure this has resolved. * Attachments The following attachments cannot be sent through Care Everywhere. * Chest Pain That Is Not Caused by the Heart Discharge Instructions (Nigerien) * Bronchitis, Adult ED (Nigerien) documented in this encounter Medications at Time of Discharge albuterol sulfate HFA 108 (90 Base) MCG/ACT inhaler Inhale 2 puffs into the lungs every 6 (six) hours as needed for Wheezing. 8 g 10/17/2021 amLODIPine (NORVASC) 5 MG tablet Take 5 mg by mouth daily. 10/27/2021 atorvastatin (LIPITOR) 40 MG tablet Take 40 mg by mouth daily. 10/27/2021 metFORMIN 500 MG tablet Take 1 tablet (500 mg total) by mouth 2 (two) times daily with meals. 60 tablet 07/11/2018 ondansetron (ZOFRAN-ODT) 4 MG disintegrating tablet Take 1 tablet (4 mg total) by mouth every 8 (eight) hours as needed for Nausea. 20 tablet 06/06/2022 predniSONE (DELTASONE) 20 MG tablet Take 1 tablet (20 mg total) by mouth daily for 5 days. 5 tablet 07/09/2022 3 documented as of this encounter ED Notes * Halima Headley RN - 07/09/2022 12:03 PM CDT Discharge instructions and medication discussed with pt. Pt denies further questions or concerns atthis time. Pt verbalized understanding and is agreeable to plan of care. Pt ambulated out of dept with steady gait and no assistance needed. Pt appeared in NAD. * DIVYA Blair - 07/09/2022 10:48 AM CDT [place], [place] EMERGENCY DEPARTMENT ENCOUNTER HISTORICAL INFORMATION Primary Care Doctor: Starla Parham MD Patient information was obtained primarily from the patient, nursing notes History/Exam limitations: None Provider at Bedside Date/Time Event User Comments 07/09/22 0939 Provider at Bedside Assessing Patient ANGÉLICA SEXTON -- CHIEF COMPLAINT Chest Pain (C/o chest pressure beginning Sat night; worsening ) and Cough HPI Ama Rehman is a 36-year-old male who presents with cough x 1 week (nonproductive) with nowseveral days of chest pain at left side. Coughing makes pain worse. Pt states he had covid a month ago. PAST MEDICAL HISTORY Past Medical History: Diagnosis Date ??? Asthma ??? Depression ??? Diabetes mellitus (CMS/HCC) ??? Hypertension ??? IBS (irritable bowel syndrome) ??? Ulcerative colitis (CMS/HCC) Negative unless otherwise noted SURGICAL HISTORY Past Surgical History: Procedure Laterality Date ??? COLONOSCOPY Negative unless otherwise noted CURRENT MEDICATIONS No current facility-administered medications for this encounter. Current Outpatient Medications: ??? albuterol sulfate HFA 108 (90 Base) [...] ), Disp: 60 tablet, Rfl: 0 ??? ondansetron (ZOFRAN-ODT) 4 MG disintegrating tablet, Take 1 tablet (4 mg total) by mouth every 8 (eight) hours as needed for Nausea., Disp: 20 tablet, Rfl: 0 ALLERGIES Allergies Allergen Reactions ??? Morphine Other (see comment) Bradycardia. FAMILY HISTORY Family History Problem Relation Name Age of Onset ??? No Known Problems Mother ??? Cancer Father ??? Cancer Brother Negative unless otherwise noted SOCIAL HISTORY Social History Socioeconomic History ??? Marital status: Single Tobacco Use ??? Smoking status: Never ??? Smokeless tobacco: Never Vaping Use ??? Vaping Use: Never used Substance and Sexual Activity ??? Alcohol use: Yes Comment: occ. ??? Drug use: No Negative unless otherwise noted REVIEW OF SYSTEMS See HPI. All other systems reviewed and negative PHYSICAL EXAM VITAL SIGNS: Filed Vitals: 07/09/22 0937 BP: (!) 160/110 Pulse: 85 Resp: 17 Temp: 97.5 ??F (36.4 ??C) TempSrc: Axillary SpO2: 100% Weight: 129.3 kg (285 lb) Height: 5' 11 (1.803 m) Constitutional: Well developed, Well nourished, No acute distress, Non-toxic appearance. HENT: Normocephalic, Atraumatic, Bilateral external ears normal, Oropharynx moist, Eyes: PERRL, EOMI, Conjunctiva normal, No discharge. Neck- Normal range of motion, No tenderness, Supple, No stridor. Respiratory: Normal breath sounds, No respiratory distress. Cardiovascular: Normal heart rate, Normal rhythm, no chest wall tenderness GI: nd Musculoskeletal: Intact distal pulses, No edema, No tenderness, No cyanosis, No clubbing. Good range of motion in all major joints. No tenderness to palpation or major deformities noted. Back- No tenderness. Integument: Warm, Dry, No erythema, No rash. Lymphatic: No lymphadenopathy noted. Neurologic: Alert & oriented x 3, Psychiatric: Affect normal, Judgment normal, Mood normal. Pertinent Labs: Results for orders placed or performed during the hospital encounter of 07/09/22 CBC W/DIFF AUTOMATED Result Value Ref Range WBC 8.0 4.5 - 11.0 x10'3/uL RBC 4.97 4.70 - 6.10 x10'6/uL HGB 14.5 14.0 - 18.0 G/DL HCT 44.2 43.0 - 54.0 % MCV 88.9 80.0 - 94.0 FL MCH 29.2 27.0 - 31.0 PG MCHC 32.8 32.0 - 36.0 G/DL RDW 12.3 11.5 - 14.5 % PLT 266 130 - 400 x10'3/uL MPV 9.2 (L) 9.3 - 12.2 FL DIFFERENTIAL TYPE AUTOMATED DIFFERENTIAL NEUTROPHILS 63.1 % LYMPHOCYTES 28.2 % MONOCYTES 6.2 % EOSINOPHILS 1.4 % BASOPHILS 0.6 % IMMATURE GRANS 0.5 % ABS. NEUTROPHILS TOTAL 5.05 1.80 - 7.70 x10'3/uL ABS. LYMPHOCYTES 2.26 1.00 - 4.80 x10'3/uL ABS. MONOCYTES 0.50 0.30 - 0.82 x10'3/uL ABS. EOSINOPHILS 0.11 0.04 - 0.54 x10'3/uL ABS. BASOPHILS 0.05 0.01 - 0.08 x10'3/uL ABS. IMMATURE GRANULOCYTES 0.04 0.00 - 0.49 x10'3/uL COMPREHENSIVE METABOLIC PANEL Result Value Ref Range GLUCOSE 99 70 - 99 MG/DL BUN 12 7 - 18 MG/DL CREATININE S/P/B 0.91 0.7 - 1.3 MG/DL SODIUM 135 (L) 136 - 145 MMOL/L POTASSIUM 3.8 3.5 - 5.1 MMOL/L CHLORIDE S/P/B 106 100 - 108 MMOL/L CO2 25.5 21 - 32 MMOL/L CALCIUM 9.4 8.5 - 10.1 MG/DL BILIRUBIN TOTAL S/P/B 0.4 0.2 - 1.2 MG/DL TOTAL PROTEIN S/P/B 8.4 (H) 6.4 - 8.2 G/DL ALBUMIN S/P/B 4.3 3.4 - 5.0 G/DL AST 33 15 - 37 U/L ALT 64 (H) 16 - 60 U/L ALKALINE PHOSPHATASE S/P/B 59 50 - 136 U/L ANION GAP 3.5 (L) 5 - 15 MMOL/L BUN CREATININE RATIO 13.2 6 - 26 A/G RATIO 1.0 1.0 - 2.0 RATIO GFR ESTIMATE >90 >90 ML/MIN/1.73 M2 TROPONIN, QUANT Result Value Ref Range TROPONIN I HIGH SENSITIVITY 5 <79 ng/L RADIOLOGY XR CHEST PORTABLE Final Result by User, [id number] (07/09 1024) Examination: Chest Radiograph, 1 view Exam Date/Time: 07/09/2022 9:40 AM Reason For Exam: cp Chest pain Comparison: 10/17/2021 chest radiograph Technique: Single AP view of the chest. Findings: Prominent cardiac silhouette within normal limits for AP technique. No large effusion. No pneumothorax. Pulmonary vascularity within normal notes. No convincing infiltrate or consolidation. ======== IMPRESSION: ======== 1. No convincing acute cardiopulmonary findings within limitations of exam Ordered By: ANGÉLICA SEXTON Interpreted By: Pérez Amaya MD, 07/09/2022 10:23 AM MEDS GIVEN IN ER: Medications aspirin chewable tablet 324 mg (162 mg Oral Given 07/09/22 0946) methylPREDNISolone sodium succinate (SOLU-Medrol) injection 62.5 mg (62.5 mg Intravenous Given 07/09/22 0947) ED COURSE & MEDICAL DECISION MAKING Pertinent Labs & Imaging studies reviewed. (See chart for details) Workup Neg including trop and d-dimer. With pain x several days pt does not need repeat trop. Pt states pain is better after iv steroids. ? Disposition Discussion: I have discussed today's findings with the [...] and has verbalized understanding of these instructions. DATE: 07/09/2022 10:48 AM PATIENT: Ama Rehman Discharge Clinical Impressions: Chest pain bronchitis Discharge Condition: stable Discharge Disposition: Patient discharge to home with prednisone I spent time answering the patient's questions. Discharge instructions using teach back, understanding assessed and validated. Please refer to the exit web content writer discharge instructions for details surrounding the discharge plan. I did reiterate with the patient that if an urgent need for immediate follow up comes up, not to hesitate to return to the ED. DIVYA Blair PA 07/09/22 1656 Cosigned by Denia Dahl MD at 07/09/2022 8:53 PM CDT * Halima Headley RN - 07/09/2022 9:37 AM CDT Pt presents to ED with c/o non-productive cough x 1 week. C/o midsternal chest pressure rated 5/10 beginning Saturday night. Reports was intermittent; now almost constant. Reports occasionally gets jolt of pain. 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 Denies any recent fevers. Reports had COVID apx 1 month ago. Pt A&Ox4. Respirations even and non-labored. Pt appears in NAD. documented in this encounter Plan of Treatment Not on file documented as of this encounter Procedures Procedure Name Priority Date/Time Associated Diagnosis Comments XR CHEST PORTABLE STAT 07/09/2022 10: 20 AM CDT COMPREHENSIVE METABOLIC PANEL STAT 07/09/2022 9:42 AM CDT D-DIMER, QUANTITATIVE Routine 07/09/2022 9:42 AM CDT CBC W/DIFF AUTOMATED STAT 07/09/2022 9:42 AM CDT TROPONIN, QUANT STAT 07/09/2022 9:42 AM CDT ECG 12-LEAD Routine 07/09/2022 9:29 AM CDT documented in this encounter Results * XR CHEST PORTABLE (07/09/2022 10:20 AM CDT) Anatomical Region Laterality Modality Chest Radiographic Britt ging 07/09/2022 10:2 3 AM CDT Impressions 07/09/2022 10:24 AM CDT ======== IMPRESSION: ======== ?? 1. ??No convincing acute cardiopulmonary findings within limitations of exam Ordered By: ANGÉLICA SEXTON Interpreted By: Pérez Amaya MD, 07/09/2022 10:23 AM Narrative 07/09/2022 10:24 AM CDT Examination: Chest Radiograph, 1 view Exam Date/Time: 07/09/2022 9:40 AM Reason For Exam: ??cp ? Chest pain Comparison: 10/17/2021 chest radiograph Technique: Single AP view of the chest. Findings: ??Prominent cardiac silhouette within normal limits for AP technique. No large effusion. No pneumothorax. Pulmonary vascularity within normal notes. No convincing infiltrate or consolidation. Procedure Note Pérez Amaya MD - 07/09/2022 Examination: Chest Radiograph, 1 view Exam Date/Time: 07/09/2022 9:40 AM Reason For Exam: cp Chest pain Comparison: 10/17/2021 chest radiograph Technique: Single AP view of the chest. Findings: Prominent cardiac silhouette within normal limits for APtechnique. No large effusion. No pneumothorax. Pulmonary vascularitywithin normal notes. No convincing infiltrate or consolidation. ======== IMPRESSION: ======== 1. No convincing acute cardiopulmonary findings within limitations ofexam Ordered By: ANGÉLICA SEXTON Interpreted By: Pérez Amaya MD, 07/09/2022 10:23 AM [facility] Final Resu lt * D-DIMER, QUANTITATIVE (07/09/2022 9:42 AM CDT) Pathologist [facility] D-DIMER 250 0 - 500 ng{FEU}/mL 07/09/2022 11:30 AM CDT [facility] Comment: D-Dimer values less than or equal to 500 ng/mL FEU have a negative predictive value of >95% for exclusion of deep vein thrombosis and pulmonary embolism. In patients over 50 (who tend to have higher normal baseline D-Dimer values), recent studies suggest age-adjusted D-Dimer cutoff values (calculated as: age [years] x 10 ng/mL) result in equivalent outcomes and no additional false negative findings. 07/09/2022 9:42 AM CDT [facility] Final Resu lt [facility] [address] [place] [address], [place] [phone] * TROPONIN, QUANT (07/09/2022 9:42 AM CDT) [facility] TROPONIN I HIGH SENSITIVITY 5 <79 ng/L 07/09/2022 10:17 AM CDT [facility] Comment: THESE RESULTS HAVE BEEN OBTAINED FROM THE [facility]. HS TROPONIN I'S ARE CURRENTLY PERFORMED ON TWO DIFFERENT INSTRUMENTS WITH SEPARATE CUTOFF VALUES. PLEASE REVIEW THE POSTED RANGES FOR ALL HS TROP I TESTING. HIGH DOSES OF BIOTIN, TROPONIN-SPECIFIC AUTOANTIBODIES, AND ANTIBODY THERAPY CONTAINING HAMA MAY INTERFERE WITH THIS TEST RESULT. CORRELATION TO CLINICAL HISTORY AND PRESENTATION RECOMMENDED. 07/09/2022 9:42 AM CDT us [facility] Final Resu lt [facility] [address] [place] [address], * (ABNORMAL) COMPREHENSIVE METABOLIC PANEL (07/09/2022 9:42 AM CDT) GLUCOSE 99 70 - 99 MG/DL 07/09/2022 10:17 AM CDT [facility] BUN 12 7 - 18 MG/DL 07/09/2022 10:17 AM CDT [facility] CREATININE S/P/B 0.91 0.7 - 1.3 MG/DL 07/09/2022 10:17 AM CDT [facility] SODIUM S/P/B 135(L) 136 - 145 MMOL/L 07/09/2022 10:17 AM CDT [facility] POTASSIUM S/P/B 3.8 3.5 - 5.1 MMOL/L 07/09/2022 10:17 AM CDT [facility] CHLORIDE S/P/B 106 100 - 108 MMOL/L 07/09/2022 10:17 AM CDT [facility] CO2 25.5 21 - 32 MMOL/L 07/09/2022 10:17 AM CDT [facility] CALCIUM S/P/B 9.4 8.5 - 10.1 MG/DL 07/09/2022 10:17 AM [facility] BILIRUBIN TOTAL S/P/B 0.4 0.2 - 1.2 MG/DL 07/09/2022 10:17 AM [facility] Comment: THIS ASSAY IS NOT RECOMMENDED FOR PATIENTS UNDERGOING TREATMENT WITH ELTROMBOPAG DUE TO THE POTENTIAL FOR FALSELY ELEVATED RESULTS. TOTAL PROTEIN S/P/B 8.4(H) 6.4 - 8.2 G/DL 07/09/2022 10:17 AM [facility] ALBUMIN S/P/B 4.3 3.4 - 5.0 G/DL 07/09/2022 10:17 AM [facility] AST 33 15 - 37 U/L 07/09/2022 10:17 AM [facility] ALT 64(H) 16 - 60 U/L 07/09/2022 10:17 AM [facility] ALKALINE PHOSPHATASE S/P/B 59 50 - 136 U/L 07/09/2022 10:17 AM [facility] ANION GAP 3.5(L) 5 - 15 MMOL/L 07/09/2022 10:17 AM [facility] BUN CREATININE RATIO 13.2 6 - 26 07/09/2022 10:17 AM [facility] A/G RATIO 1.0 1.0 - 2.0 RATIO 07/09/2022 10:17 AM [facility] GFR ESTIMATE >90 >90 ML/MIN/1.7 3 M2 07/09/2022 10:17 AM [facility] Comment: NOTE: eGFR is not calculated for patients <18 years of age. This is an estimated GFR calculation using the new CKD EPI creatinine equation without race and so does not require a correction factor for race. This estimated GFR should not be used for calculating drug doses. 07/09/2022 9:42 AM CDT us [facility] Final Resu lt [facility] [address] [place] [address], [place] [phone] * (ABNORMAL) CBC W/DIFF AUTOMATED (07/09/2022 9:42 AM CDT) [facility] WBC 8.0 4.5 - 11.0 x10'3/uL 07/09/2022 9:54 AM CDT [facility] RBC 4.97 4.70 - 6.10 x10'6/uL 07/09/2022 9:54 AM CDT [facility] HGB 14.5 14.0 - 18.0 G/DL 07/09/2022 9:54 AM CDT [facility] HCT 44.2 43.0 - 54.0 % 07/09/2022 9:54 AM CDT [facility] MCV 88.9 80.0 - 94.0 FL 07/09/2022 9:54 AM CDT [facility] MCH 29.2 27.0 - 31.0 PG 07/09/2022 9:54 AM CDT [facility] MCHC 32.8 32.0 - 36.0 G/DL 07/09/2022 9:54 AM CDT [facility] RDW 12.3 11.5 - 14.5 % 07/09/2022 9:54 AM CDT [facility] PLT 266 130 - 400 x10'3/uL 07/09/2022 9:54 AM CDT [facility] MPV 9.2(L) 9.3 - 12.2 FL 07/09/2022 9:54 AM CDT [facility] DIFFERENTIAL TYPE AUTOMATED DIFFERENTIAL 07/09/2022 9:54 AM CDT [facility] NEUTROPHILS % 63.1 % 07/09/2022 9:54 AM CDT [facility] LYMPHOCYTES % 28.2 % 07/09/2022 9:54 AM CDT [facility] MONOCYTES % 6.2 % 07/09/2022 9:54 AM CDT [facility] EOSINOPHILS 1.4 % 07/09/2022 9:54 AM CDT [facility] BASOPHILS 0.6 % 07/09/2022 9:54 AM CDT [facility] IMMATURE GRANS % 0.5 % 07/10/19 9:54 AM CDT [facility] ABS. NEUTROPHILS TOTAL 5.05 1.80 - 7.70 x10'3/uL 07/09/2022 9:54 AM CDT [facility] ABS. LYMPHOCYTES 2.26 1.00 - 4.80 x10'3/uL 07/09/2022 9:54 AM CDT [facility] ABS. MONOCYTES 0.50 0.30 - 0.82 x10'3/uL 07/09/2022 9:54 AM CDT [facility] ABS. EOSINOPHILS 0.11 0.04 - 0.54 x10'3/uL 07/09/2022 9:54 AM CDT [facility] ABS. BASOPHILS 0.05 0.01 - 0.08 x10'3/uL 07/09/2022 9:54 AM CDT [facility] ABS. IMMATURE GRANULOCYTES 0.04 0.00 - 0.49 x10'3/uL 07/09/2022 9:54 AM T [facility] 07/09/2022 9:42 AM CDT us Angélica Sexton PA [facility]OR[facility] Final Resu lt [facility] [address] [place] [address], * ECG 12 lead (07/09/2022 9:29 AM CDT) 07/09/2022 9:29 AM CDT Narrative [facility] ([facility]) [facility] - 07/09/2022 9:30 AM CDT [facility] ? [address] [facility] [place] ? Test Date: ?2022-07-09 Pat Name: ? AMA REHMAN ?Department: ?? 41 ? Room: ? [id number] Gender: ? Male ? 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 Requested By: DENIA Metzger Number: [id number] ? Reading : ?? Eder Romo ? Measurements Intervals ?[place] ? Rate: ? 86 ? P: ?9 SD: ? 149 ?QRS: ?31 QRSD: ? 83 ? T: ?48 QT: ? 348 ? QTc: ?418 ? Interpretive Statements SINUS RHYTHM Compared to ECG 10/17/2021 14:32:35 No significant changes Procedure Note Eder Romo MD - 07/09/2022 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 Professional: [id number] : 1985 Requested By: DENIA DAHL Order Number: [id number] Reading MD: Eder Romo Measurements Intervals [place] Rate: 86 P: 9 SD: 149 QRS: 31 QRSD: 83 T: 48 QT: 348 QTc: 418 Interpretive Statements SINUS RHYTHM Compared to ECG 10/17/2021 14:32:35 No significant changes us [facility] ORDERABLES Final Resu lt [facility] ([facility] documented in this encounter Visit Diagnoses Diagnosis Bronchitis- Primary Bronchitis, not specified as acute or chronic Chest pain Chest pain, unspecified documented in this encounter Administered Medications Inactive Administered Medications - up to 3 most recent administrations Medication Order MAR Action Action Date Dose Rate Site aspirin chewable tablet 324 mg 324 mg, Oral, Once, 1 dose, On Sat07/09/22 at 0930, If not given by EMS or taken immediately prior to arrival Given 07/09/2022 9:46 AM CDT 162 mg methylPREDNISolone sodium succinate (SOLU-Medrol) injection 62.5 mg 62.5 mg, Intravenous, Once, 1 dose, On Sat07/09/22 at 0945, If ordered IV, administer into a vein over 3-15 minutes. Doses >= 2 mg/kg or 250mg should be given by infusion, unless the benefits of IV injection outweigh the risks (life-threatening shock) Given 07/09/2022 9:47 AM CDT 62.5 mg documented in this encounter Active and Recently Administered Medications Times are shown in CDT. 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 Doses >= 2 mg/kg or 250mg should be given by infusion, unless the benefits of IV injection outweigh the risks (life-threatening shock) 0947 (Given - Provid er: Halima Headley RN) documented in this encounter Care Teams On Site Nurse Relationship Specialty Start Date End Date Starla Parham MD PCP - General FAMILY PRACTICE 11/17/20 documented as of this encounter
--- OUTSIDE RECORDS SUMMARY | 2024-04-04 19:29 | XMS_ITS | Encounter Summary ---
Author Organization [facility] Health Address [address] [place] [address] Care Team Providers Care Food Aide Name Role Phone Sara Parks STOCK CAR DRIVER[employer] Primary Care Provider Reason for Visit * Reason Onset Date Comments Future Appointment 12/10/2017 Encounter Details Date Type Department Care Team (Late st Contact Info) Description 12/10/2017 Telephone [facility] [address] [place] [address] Maurice Ba MD [address] [address] Future Appointment Social History Tobacco Use Types Packs/Day Years [...] encounter Miscellaneous Notes * Telephone Encounter - Batsheva Jaime - 12/10/2017 8:47 AM CDT Tal spoke to patient about 12/11 appointment @ 10:45. Patient understood and did not have any questions. documented in this encounter Plan of Treatment Not on file documented as of this encounter Visit Diagnoses Not on filedocumented in this encounter Care Teams Food Aide Relationship Specialty Start Date End Date Sara Parks, STOCK CAR DRIVER[employer] [address] [place], [place] [id number] PCP - General 10/28/17 04/25/20 documented as of this encounter
--- OUTSIDE RECORDS SUMMARY | 2024-04-04 19:29 | XMS_ITS | Encounter Summary ---
Author Organization [facility] Address [address] [facility] [place] [address] Care Team Providers Care Network Program Manager Name Role Phone Unavailable Primary Care Provider Unavailabl e Reason for Visit * Reason Onset Date Comments Future Appointment 2017 Encounter Details Date Type Department Care Team (Late st Contact Info) Description 2017 Telephone [facility] [address] [place] [address] Maurice Ba MD [address] [address] Future Appointment Social History Tobacco Use Types Packs/Day Years Used Date Smoking Tobacco: Never Assessed Sex and Gender Information Value Date Recorded Sex Assigned at Not on file Gender Identity Not on file Sexual Orientation Not on file documented as of this encounter Miscellaneous Notes * Telephone Encounter - Kay Moore - 2017 5:06 PM CDT Spoke with patient regarding moving upcoming appointment to an earlier time. Instructed to arrive 60mins prior for XRAY. Instructed pt to bring imaging disc. Patient understood and had no questions. documented in this encounter Plan of Treatment Not on file documented as of this encounter Visit Diagnoses Not on filedocumented in this encounter
--- OUTSIDE RECORDS SUMMARY | 2024-04-04 19:29 | XMS_ITS | Encounter Summary ---
Author Organization [facility] Address [address] [place] [address] Care Team Providers Care Personnel And Payroll Technician Name Role Phone Unavailable Primary Care Provider Unavailabl e Reason for Visit * Reason Onset Date Comments Scheduling 09/30/2017 Encounter Details Date Type Department Care Team (Late st Contact Info) Description 09/30/2017 Telephone [facility] [address] [place] [address] Adamaris Cohen Scheduling Social History Tobacco Use Types Packs/Day Years Used Date Smoking Tobacco: Never Assessed Sex and Gender Information Value Date Recorded Sex Assigned at Not on file Gender Identity Not on file Sexual Orientation Not on file documented as of this encounter Miscellaneous Notes * Telephone Encounter - Adamaris Cohen - 09/30/2017 10:36 AM CDT LVM for patient to call office to schedule new pt appointment with Dr. Ba. documented in this encounter Plan of Treatment Not on file documented as of this encounter Visit Diagnoses Not on filedocumented in this encounter
--- OUTSIDE RECORDS SUMMARY | 2024-04-04 19:29 | XMS_ITS | Clinical Summary ---
Author Organization [facility] Address [address] [place] [address]. [place], [place] [address] [place] [address] Care Team Providers Care Dental Equipment Installer And Servicer Name Role Phone Starla Parham MD Primary Care Provider [phone] Allergies Active Allergy Reactions Criticality Noted Date Comments Morphine Other (see comment) 07/11/2018 Bradycardia. Medications metFORMIN 500 MG tablet Take 1 tablet (500 mg total) by mouth 2 (two) times daily with meals. 60 tablet 07/12/19 19 Active Additional Information Patient taking differently: 1,000 mgOral 2 times daily with meals, Reported on 04/11/2021 albuterol sulfate HFA 108 (90 Base) MCG/ACT inhaler Inhale 2 puffs into the lungs every 6 (six) hours as needed for Wheezing. 8 g 10/18/19 22 Active amLODIPine (NORVASC) 5 MG tablet Take 5 mg by mouth daily. 10/28/19 22 Active atorvastatin (LIPITOR) 40 MG tablet Take 40 mg by mouth daily. 10/28/19 22 Active ondansetron (ZOFRAN-ODT) 4 MG disintegrating tablet Take 1 tablet (4 mg total) by mouth every 8 (eight) hours as needed for Nausea. 20 tablet 06/07/19 23 Active Active Problems No known active problems Family History Medical History Relation Comments Cancer Brother Cancer Father No Known Problems Mother Relation Status Comments Brother Father Mother Social History Tobacco Use Types Packs/Day Years [...] Mass Index 39.75 07/09/2022 9:37 AM CDT Plan of Treatment Health Maintenance Due Date Last Done Comments Annual Physical 10/21/1990 Hepatitis C 10/21/2005 DTaP, Tdap and Td Vaccines ( 1 - Tdap) 10/21/2006 Hepatitis B Vaccines (1 of 3 - 19+ 3-dose series) 10/21/2006 COVID-19 Vaccine (2023-2 5 season) 2023 03/03/2021, 02/03/2021 Influenza Adult (#1) 2023 01/30/2018 HPV Vaccines Aged Out No longer eligi ble based on patient's age to complete this topic Meningococcal Vaccine Aged Out No al angel eligible based on patient's age to complete this topic Pneumococcal Vaccine: Pediatrics (0 to 5 Years) and At-Risk Patients (6 to 64 Years) Aged Out No longer eligible b ased on patient's age to complete this topic RSV Immunizations Under 20 Months Aged Out No longer eligible b ased on patient's age to complete this topic Insurance [facility] Care Teams Dental Equipment Installer And Servicer Relationship Specialty Start Date End Date Starla Parham MD PCP - General FAMILY PRACTICE 11/17/20
--- OUTSIDE RECORDS SUMMARY | 2024-04-04 19:29 | XMS_ITS | Encounter Summary ---
Author Organization [facility] Address [address] [place] [address]. [place], [place] [address] [place] [address] Care Team Providers Care Production Engineer Track Name Role Phone Starla Parham MD Primary Care Provider [phone] Encounter Details Date Type Department Care Team (Latest Contact Info) Description 11/08/2021 3:18 PM CDT - 11/08/2021 11:59 PM CDT Hospital Encounter [facility] [place] [address] Starla Parham MD [address] [place] [address] Discharge Disposition: Home or Self Care (Routine [...] PM CDT documented as of this encounter Medications at [...] times daily with meals. 60 tablet 07/11/2018 lisinopril (PRINIVIL) 10 MG tablet Take 10 mg by mouth daily. 10/27/2021 07/09/2022 methylPREDNISolon e, MAHENDRA, (MEDROL DOSEPAK) 4 MG tablet 6 TABLETS ON DAY ONE, 5 TABLETS DAY TWO, 4 TABLETS DAY THREE, 3 TABLETS DAY FOUR, 2 TABLETS DAY FIVE, AND 1 TABLET DAY SIX 1 each 10/31/2021 07/09/2022 documented as of this encounter Plan of Treatment Not on file documented as of this encounter Procedures Procedure Name Priority Date/Time Associated Diagnosis Comments ALBUMIN URINE RANDOM W/CREATININE Routine 11/08/2021 3:29 PM CDT Essential (primary) hypertension TSH W/REFLEX Routine 11/08/2021 3:23 PM CDT Essential (primary) hypertension BASIC METABOLIC PANEL Routine 11/08/2021 3:23 PM CDT Essential (primary) hypertension CBC, AUTO, NO DIFF Routine 11/08/2021 3: 23 PM CDT Essential (primary) hypertension documented in this encounter Results * MICROALBUMIN CREAT RATIO, URINE RANDOM (11/08/2021 3:29 PM CDT) CREATININE (U) 194.0 39 - 259 MG/DL 11/08/2021 4:44 PM CDT [facility] MICROALBUMIN (U) 1.9 <2.0 mg/dL 11/09/19 4:44 PM CDT [facility] ALBUMIN/CREAT RATIO 9.6 <30 MG/G 11/08/2021 4:44 PM CDT [facility] URINE SPECIMEN / Unknown 11/08/2021 3:29 PM CDT Starla Parham MD URINE ORDERABLES Final Result Performing Organization Address City/[facility]/ZIP Co de Phone Number [facility] [address] [place] [address], [place] [phone] * TSH W/REFLEX (11/08/2021 3:23 PM CDT) TSH 2.860 0.358 - 3.74 uIU/ML 11/08/2021 4:21 PM CDT [facility] Comment: HIGH DOSES OF BIOTIN MAY INTERFERE WITH THIS TEST RESULT. CORRELATION TO CLINICAL HISTORY AND PRESENTATION RECOMMENDED. FREE T4 NOT INDICATED 11/08/2021 3:23 PM CDT Starla Parham MD LABORATORY Final Result Performing Organization Address [facility] Co de Phone Number [facility] [address] [place] [address], [place] [phone] * (ABNORMAL) BASIC METABOLIC PANEL (11/08/2021 3:23 PM CDT) GLUCOSE 90 70 - 99 MG/DL 11/08/2021 4:21 PM CDT [facility] BUN 8 7 - 18 MG/DL 11/08/2021 4:21 PM CDT [facility] CREATININE S/P/B 0.93 0.7 - 1.3 MG/DL 11/08/2021 4:21 PM CDT [facility] SODIUM S/P/B 138 136 - 145 MMOL/L 11/08/2021 4:21 PM CDT [facility] POTASSIUM S/P/B 3.8 3.5 - 5.1 MMOL/L 11/08/2021 4:21 PM CDT [facility] CHLORIDE S/P/B 107 100 - 108 MMOL/L 11/08/2021 4:21 PM CDT [facility] CO2 27.1 21 - 32 MMOL/L 11/08/2021 4:21 PM CDT [facility] CALCIUM S/P/B 9.7 8.5 - 10.1 MG/DL 11/08/2021 4:21 PM CDT [facility] ANION GAP 3.9(L) 5 - 15 MMOL/L 11/08/2021 4:21 PM CDT [facility] BUN CREATININE RATIO 8.6 6 - 26 11/08/2021 4:21 PM CDT [facility] GFR ESTIMATE >90 >90 ML/MIN/1.7 3 M2 11/08/2021 4:21 PM CDT [facility] Comment: NOTE: eGFR is not calculated for patients <18 years of age. This is an estimated GFR calculation using the new CKD EPI creatinine equation without race and so does not require a correction factor for race. This estimated GFR should not be used for calculating drug doses. 11/08/2021 3:23 PM CDT Starla Parham MD LABORATORY Final Result [facility] [address] [place] [address], [place] [phone] * CBC, AUTO, NO DIFF (11/08/2021 3:23 PM CDT) WBC 7.7 4.5 - 11.0 x10'3/uL 11/08/2021 3:43 PM CDT [facility] RBC 4.99 4.70 - 6.10 x10'6/uL 11/08/2021 3:43 PM CDT [facility] HGB 14.8 14.0 - 18.0 G/DL 11/08/2021 3:43 PM CDT [facility] HCT 44.5 43.0 - 54.0 % 11/08/2021 3:43 PM CDT [facility] MCV 89.2 80.0 - 94.0 FL 11/08/2021 3:43 PM CDT [facility] MCH 29.7 27.0 - 31.0 PG 11/08/2021 3:43 PM CDT [facility] MCHC 33.3 32.0 - 36.0 G/DL 11/08/2021 3:43 PM CDT [facility] RDW 12.4 11.5 - 14.5 % 11/08/2021 3:43 PM CDT [facility] PLT 290 130 - 400 x10'3/uL 11/08/2021 3:43 PM CDT [facility] MPV 9.8 9.3 - 12.2 FL 11/08/2021 3:43 PM CDT [facility] 11/08/2021 3:23 PM CDT Starla Parham MD LABORATORY Final Result [facility] [address] [place] [address], [place] [phone] documented in this encounter Visit Diagnoses Diagnosis Essential (primary) hypertension Unspecified essential hypertension documented in this encounter Care Teams Production Engineer Track Relationship Specialty Start Date End Date Starla Parham MD PCP - General FAMILY PRACTICE 11/17/20 documented as of this encounter
--- OUTSIDE RECORDS SUMMARY | 2024-04-04 19:29 | XMS_ITS | Encounter Summary ---
Author Organization [facility] Address [address] [facility] [place] [address] Care Team Providers Care Embedded Software Engineer Name Role Phone Unavailable Primary Care Provider Unavailabl e Reason for Visit * Reason Onset Date Comments Future Appointment 10/18/2017 Encounter Details Date Type Department Care Team (Late st Contact Info) Description 10/18/2017 Telephone [facility] [address] [place] [address] Maurice Ba MD [address] [place] [address] Future Appointment Social History Tobacco Use Types Packs/Day Years Used Date Smoking Tobacco: Never Assessed Sex and Gender Information Value Date Recorded Sex Assigned at Not on file Gender Identity Not on file Sexual Orientation Not on file documented as of this encounter Miscellaneous Notes * Telephone Encounter - Batsheva Jaime - 10/18/2017 1:20 PM CDT Tried to call patient to reschedule appointment. Message on phone was not reachable [id number] . documented in this encounter Plan of Treatment Not on file documented as of this encounter Visit Diagnoses Not on filedocumented in this encounter
--- OUTSIDE RECORDS SUMMARY | 2024-04-04 19:29 | XMS_ITS | Encounter Summary ---
Author Organization [facility] Address [address] [place] [address]. [place], [place] [address] [place] [address] Care Team Providers Care Factory Clerk Name Role Phone Starla Parham MD Primary Care Provider [phone] Encounter Details Date Type Department Care Team (Latest Contact Info) Description 07/09/2022 Travel Social History Tobacco Use Types Packs/Day [...] AM CDT documented as of this encounter Plan of Treatment Not on file documented as of this encounter Visit Diagnoses Not on filedocumented in this encounter Care Teams Factory Clerk Relationship Specialty Start Date End Date Starla Parham MD PCP - General FAMILY PRACTICE 11/17/20 documented as of this encounter
--- OUTSIDE RECORDS SUMMARY | 2024-04-04 19:30 | XMS_ITS | Encounter Summary ---
Author Organization [facility] Address [address] [place] [address]. [place], [place] [address] [place] [address] Care Team Providers Care Lab Rep Name Role Phone Starla Parham MD Primary Care Provider [phone] Reason for Referral * Imaging (Routine) - Closed Specialty Diagnoses / Procedures Referred By Radhaac t Referred To Contact RADIOLOGY Diagnoses Calculus of gallbladder without cholecystitis without obstruction Procedures US ABD LIMITED López Rapp MD [address] [address] Phone: tel: fax: Referral ID Status Reason Start Date Expiration Date Visits Re quested Visits Authorized [id number] Closed 11/11/2020 12/12/2021 1 1 Reason for Visit * Imaging (Routine) - Closed Specialty Diagnoses / Procedures Referred By Donavon braswell Referred To Contact RADIOLOGY Diagnoses Calculus of gallbladder without cholecystitis without obstruction Procedures US ABD LIMITED López Rapp MD [address] [address] Phone: tel: fax: Referral ID Status Reason Start Date Expiration Date Visits Re quested Visits Authorized [id number] Closed 11/11/2020 12/12/2021 1 1 Encounter Details Date Type Department Care Team ([facility] st Contact Info) Description 11/24/2020 9:30 AM CDT - 11/24/2020 11:59 PM CDT Hospital Encounter [facility] [address] [place] [address] López Rapp MD [address] [facility] [address] [place] [id number] Discharge Disposition: Home or Self Care (Routine [...] Exposure Response Date Recorded In the last month, have you been in contact with someone who was confirmed or suspected to have Coronavirus / COVID-19? No / Unsure 11/24/2020 9:32 AM CDT documented as of this encounter Medications at Time of Discharge metFORMIN 500 MG tablet Take 1 tablet (500 mg total) by mouth 2 (two) times daily with meals. 60 tablet 07/11/2018 albuterol sulfate HFA 108 (90 Base) MCG/ACT inhaler Inhale 2 puffs into the lungs every 6 (six) hours as needed for Wheezing or Shortness of breath. 1 Inhaler 06/30/2019 2 cetirizine 10 MG tablet Take 10 mg by mouth daily. 10/05/2019 2 dicyclomine 10 MG capsule Take 1 capsule (10 mg total) by mouth 4 (four) times daily as needed. 40 capsule 10/11/2018 2 dicyclomine 20 MG tablet Take 1 tablet (20 mg total) by mouth every 6 (six) hours. 120 tablet 07/11/2018 2 famotidine 20 MG tabletIndications:Ab dominal pain,Biliary colic Take 1 tablet (20 mg total) by mouth 2 (two) times daily. 60 tablet 11/05/2020 2 HYDROcodone-acetamin ophen 5-325 MG tabletIndications:Ac moni Pain < 3 Day Supply Take 1 tablet by mouth every 6 (six) hours as needed for Pain. Indications: Acute Pain < 3 Day Supply 7 tablet 11/05/2020 2 insulin lispro prot & lispro (75-25) 100 UNIT/ML injection (PEN) 09/30/2019 2 lisinopril 5 MG tablet Take 5 mg by mouth daily. 07/26/2020 2 naproxen sodium 220 MG tablet Take 440 mg by mouth daily as needed (back pain). Takes most days per patient 2 ondansetron 4 MG disintegrating tablet Take 1 tablet (4 mg total) by mouth every 8 (eight) hours as needed for Nausea. 20 tablet 07/11/2018 2 sucralfate 1 G tabletIndications:Ab dominal pain,Biliary colic Take 1 tablet (1 g total) by mouth 4 (four) times daily. 120 tablet 11/05/2020 2 documented as of this encounter Plan of Treatment Not on file documented as of this encounter Procedures Procedure Name Priority Date/Time Associated Diagnosis Comments US ABD LIMITED Routine 11/24/2020 10:42 AM CDT Calculus of gallbladder without cholecystitis without obstruction documented in this encounter Results * US ABD LIMITED (11/24/2020 10:42 AM CDT) Anatomical Region Laterality Modality Abdomen Ultrasound 11/24/2020 11:2 7 AM CDT Impressions 11/24/2020 11:31 AM CDT =====IMPRESSION:===== 1. Minimal nonspecific diffuse hepatic parenchymal echogenicity with minimal hepatomegaly. Is most consistent with hepatic steatosis. 2. No definitive evidence of cholelithiasis. Minimal gallbladder intraluminal biliary sludge. 3. No evidence of biliary duct dilatation. Referred By: LÓPEZ RAPP Interpreted By: Livan Turner MD, 11/24/2020 11:27 AM Narrative 11/24/2020 11:31 AM CDT EXAMINATION: Limited abdomen ultrasound: RUQ EXAM DATE/TIME: 11/24/2020 9:38 AM REASON FOR EXAM: ??Calculus of gallbladder without cholecystitis without obstruction ? pt here with RUQ pain, nausea and diarrhea off and on over 1 ??year. Eating makes it worse. No surg hx. COMPARISON: No prior ultrasound. 09/2020 CT abdomen and pelvis with contrast. TECHNIQUE: An ultrasound examination of the RUQ was performed to assess grayscale appearance, color-flow characteristics and spectral doppler analysis. FINDINGS: Liver: Mild nonspecific diffuse hepatic parenchymal increased echogenicity. This most commonly is visualized with hepatic steatosis. No evidence of focal hepatic lesions. Liver measures 18cm. in length. Pancreas: Not visualized secondary to bowel gas shadowing body habitus. Portal vein: Spectral analysis reveals normal hepatopedal flow. Gallbladder: No wall thickening, cholecystic fluid, or stones. Minimal intraluminal echogenicity consistent with biliary sludge. ??Negative sonographic Chakraborty's sign.Gallbladder wall thickness measures 0.2cm. Common hepatic duct: Measure up to 1.8 mm. in diameter. ??No distinct intraluminal stone. Common bile duct ??Suboptimally visualized due to overlying bowel gas. Common bile duct measures 0.5cm in diameter Right kidney Measures: 12.6 cm X 6.0 cm X 7.7 cm. Normal echogenicity. Normal cortical perfusion. No masses, cysts, stones or hydronephrosis. Other findings: No ascites. Procedure Note Livan Turner MD - 11/24/2020 EXAMINATION: Limited abdomen ultrasound: RUQ EXAM DATE/TIME: 11/24/2020 9:38 AM REASON FOR EXAM: Calculus of gallbladder without cholecystitis withoutobstruction pt here with RUQ pain, nausea and diarrhea off and on over 1 year.Eating makes it worse. No surg hx. COMPARISON: No prior ultrasound. 09/2020 CT abdomen and pelvis withcontrast. TECHNIQUE: An ultrasound examination of the RUQ was performed to assessgrayscale appearance, color-flow characteristics and spectral doppleranalysis. FINDINGS: Liver: Mild nonspecific diffuse hepatic parenchymal increasedechogenicity. This most commonly is visualized with hepatic steatosis. Noevidence of focal hepatic lesions. Liver measures 18cm. in length. Pancreas: Not visualized secondary to bowel gas shadowing body habitus. Portal vein: Spectral analysis reveals normal hepatopedal flow. Gallbladder: No wall thickening, cholecystic fluid, or stones. Minimalintraluminal echogenicity consistent with biliary sludge. Negativesonographic Chakraborty's sign.Gallbladder wall thickness measures 0.2cm. Common hepatic duct: Measure up to 1.8 mm. in diameter. No distinctintraluminal stone. Common bile duct Suboptimally visualized due to overlying bowel gas.Common bile duct measures 0.5cm in diameter Right kidney Measures: 12.6 cm X 6.0 cm X 7.7 cm. Normal echogenicity.Normal cortical perfusion. No masses, cysts, stones or hydronephrosis. Other findings: No ascites. =====IMPRESSION:===== 1. Minimal nonspecific diffuse hepatic parenchymal echogenicity withminimal hepatomegaly. Is most consistent with hepatic steatosis. 2. No definitive evidence of cholelithiasis. Minimal gallbladderintraluminal biliary sludge. 3. No evidence of biliary duct dilatation. Referred By: LÓPEZ RAPP Interpreted By: Livan Turner MD, 11/24/2020 11:27 AM us López Rapp MD ULTRASOUND Final Resu lt documented in this encounter Visit Diagnoses Diagnosis Calculus of gallbladder without cholecystitis without obstruction Calculus of gallbladder without mention of cholecystitis or obstruction documented in this encounter Care Teams Lab Rep Relationship Specialty Start Date End Date Starla Parham MD PCP - General FAMILY PRACTICE 11/17/20 documented as of this encounter
--- OUTSIDE RECORDS SUMMARY | 2024-04-04 19:30 | XMS_ITS | Encounter Summary ---
Author Organization [facility] Address [facility]. [place], [place] [address] [place] [address] Care Team Providers Care Home Appliances Mechanic Name Role Phone Starla Parham MD Primary Care Provider [phone] Reason for Visit * Reason Comments Head Injury Encounter Details Date Type Department Care Team (Latest Contact Info) Description 04/11/2021 2:23 PM ROTARY SWAGING MACHINE OPERATOR - 04/11/2021 3:16 PM ROTARY SWAGING MACHINE OPERATOR Hospital Encounter [address] [address] Kane Gomez MD [address] [place] [id number] Head Injury Discharge Disposition: Transfer to Acute Care Hospital Social History Tobacco Use Types Packs/Day Years [...] or suspected to have Coronavirus / COVID-19? Yes 04/11/2021 1:56 PM ROTARY SWAGING MACHINE OPERATOR documented as of this encounter Last Filed Vital Signs Vital Sign Reading Time Taken Comments Blood Pressure 141/90 04/11/2021 2:25 PM ROTARY SWAGING MACHINE OPERATOR Pulse 88 04/11/2021 2:25 PM ROTARY SWAGING MACHINE OPERATOR Temperature 36.3 ??C (97.4 ??F) 04/11/2021 2:25 PM CS T Respiratory Rate 18 04/11/2021 2:25 PM ROTARY SWAGING MACHINE OPERATOR Oxygen Saturation 98% 04/11/2021 2:25 PM ROTARY SWAGING MACHINE OPERATOR Inhaled Oxygen Concentration - - Weight - - Height - - Body Mass Index - - documented in this encounter Medications at Time of Discharge metFORMIN 500 MG tablet Take 1 tablet (500 mg total) by mouth 2 (two) times daily with meals. 60 tablet 07/11/2018 albuterol sulfate HFA 108 (90 Base) MCG/ACT inhaler Inhale 2 puffs into the lungs every 6 (six) hours as needed for Wheezing or Shortness of breath. 1 Inhaler 06/30/2019 2 dicyclomine 20 MG tablet Take 1 tablet (20 mg total) by mouth every 6 (six) hours. 120 tablet 07/11/2018 2 gabapentin 300 MG capsule 03/16/2021 2 lisinopril 5 MG tablet Take 5 mg by mouth daily. 07/26/2020 2 traZODone 100 MG tablet daily. 2 documented as of this encounter ED Notes * Kane Gomez MD - 04/11/2021 3:04 PM CST Patient is a 35-year-old male coming in today for 20-hour history of head injury. Patient accidentally hit the top left side of his head on a metal shelf. He had immediate severe pain after the injury, immediate nausea. He denies any loss of consciousness at the time. Progressively since then he has had headache that is constant, 7 out of 10, getting worse, persistent nausea, fatigue, memory loss, unable to remember most of yesterday, unable to remember how he drove home, how he got to the clinic, currently feels dizzy. He is also felt very spacey, unable to focus, some blurriness in the vision. He also feels tenderness over his scalp. He denies any ecchymosis, bleeding from nose not the ear, clear leakage of fluid from nose, laceration, abrasions, drowsiness, numbness, tingling, weakness in arms or legs, double vision, loss of vision, vomiting. He has had a history of multiple concussions in the past, he used to play football and wrestling. He has had chronic neck pain but no new symptoms, change in severity of the neck pain reported. Active Ambulatory Problems Diagnosis Date Noted ??? No Active Ambulatory Problems Resolved Ambulatory Problems Diagnosis Date Noted ??? No Resolved Ambulatory Problems Past Medical History: Diagnosis Date ??? Asthma ??? Depression ??? Diabetes mellitus (CMS/HCC) ??? Hypertension ??? IBS (irritable bowel syndrome) ??? Ulcerative colitis (CMS/HCC) ROS: A comprehensive review of systems was negative except for what's mentioned in HPI Examination: Blood pressure (!) 141/90, pulse 88, temperature 97.4 ??F (36.3 ??C), temperature source Temporal, resp. rate 18, SpO2 98 %. GENERAL APPEARANCE: Alert; fatigued. HEAD: atraumatic. Mild scalp tenderness over the left side of the head, no obvious deformity, indentation, swelling. EYES: PERRLA. EOMI. EARS: External ears normal. Canals clear. TM's normal. NOSE: Nares normal. Septum midline. Mucosa normal. THROAT: Lips, mucosa, and tongue normal. Teeth and gums normal. NECK: No obvious deformity, mild tenderness diffusely over the entire neck, unchanged, chronic. SKIN: No abrasion, laceration, ecchymosis. NEUROLOGIC: Mental status normal. Gait normal. Cranial nerves 2-12 intact. Muscle strength 5/5 throughout. Sensation grossly intact. No negrete sign, no panda eyes. No skull indentation or signs of skull fracture. GCS 15/15. Assessment and Plan: 1. Intractable acute post-traumatic headache 2. Nausea 3. Transient memory loss 4. Injury of head, initial encounter Advised patient to go to emergency room for further evaluation and treatment. Offered patient to be transported to [place] or patient declined, will call his brother who will pick him up and drive him in private car. Patient's current status, transport, clinical symptoms communicated with ER staff, physician. Kane Gomez MD 04/11/21 1509 RY SWAGING MACHINE OPERATOR * Estrada Torres RN - 04/11/2021 2:25 PM CST Pt reports he hit the L side of his head on a metal shelf yesterday. Pt denies LOC. Pt reports he has off and had difficulty focusing since. Pt also reports intermittent dizziness/nausea and constant headache since. Pt also reports he doesn't remember most of the day yesterday. Pt reports he was told that he looks out of it. Pt reports he left work today to drive home and does not remember most of the drive. Pt has normal speech and gait. RY SWAGING MACHINE OPERATOR documented in this encounter Plan of Treatment Not on file documented as of this encounter Visit Diagnoses Diagnosis Intractable acute post-traumatic headache- Primary Acute post-traumatic headache Nausea Nausea alone Transient memory loss Memory loss Injury of head, initial encounter documented in this encounter Care Teams Home Appliances Mechanic Relationship Specialty Start Date End Date Starla Parham MD PCP - General FAMILY PRACTICE 11/17/20 documented as of this encounter
--- OUTSIDE RECORDS SUMMARY | 2024-04-04 19:30 | XMS_ITS | Encounter Summary ---
Author Organization [facility] Address [address] [place] [address]. [place], [place] [id number] [place] [address] Care Team Providers Care Community Health Advisor Name Role Phone Starla Parham MD Primary Care Provider [phone] Reason for Visit * Reason Comments URI Encounter Details Date Type Department Care Team (Latest Contact Info) Description 10/10/2021 5:37 PM CDT - 10/10/2021 7:23 PM CDT Hospital Encounter [facility] Care [address] [place] [address] Justice Sexton PA [address] [place] [id number] URI Discharge Disposition: Home or Self Care (Routine [...] was confirmed or suspected to have Coronavirus/COVID-19? Yes 10/10/2021 5:29 PM CDT documented as of this encounter Last Filed Vital Signs Vital Sign Reading Time Taken Comments Blood Pressure 151/107 10/10/2021 5:40 PM CDT Pulse 95 10/10/2021 5:40 PM CDT Temperature 37.4 ??C (99.3 ??F) 10/10/2021 5:40 PM CD T Respiratory Rate 18 10/10/2021 5:40 PM CDT Oxygen Saturation 100% 10/10/2021 5:40 PM CDT Inhaled Oxygen Concentration - - Weight 129.3 kg (285 lb) 10/10/2021 5:40 PM CDT Height 180.3 cm (5' 11 ) 10/10/2021 5:40 PM CDT Body Mass Index 39.75 10/10/2021 5:40 PM CDT documented in this encounter Discharge Instructions * Discharge Instructions* DIVYA Blair - 10/10/2021 6:53 PM CDT Follow up on test results tomorrow with [facility] mychart Take steroid as directed. Get plenty of rest, drink plenty of fluids. Take tylenol or motrin as needed for pain and/or fever. Go to the ER if symptoms worsen. * Attachments The following attachments cannot be sent through Care Everywhere. * Bronchitis, Adult ED (Leb[place]) documented in this encounter Medications at Time of Discharge metFORMIN 500 MG tablet Take 1 tablet (500 mg total) by mouth 2 (two) times daily with meals. 60 tablet 07/11/2018 methylPREDNISolon e, MAHENDRA, 4 MG tablet 6 TABLETS ON DAY ONE, 5 TABLETS DAY TWO, 4 TABLETS DAY THREE, 3 TABLETS DAY FOUR, 2 TABLETS DAY FIVE, AND 1 TABLET DAY SIX 1 each 10/10/2021 10/31/2021 documented as of this encounter ED Notes * DIVYA Blair - 10/10/2021 6:49 PM CDT [place], [place] HISTORICAL INFORMATION Primary Care Doctor: Starla Parham MD Patient information was obtained primarily from the patient, nursing notes, History/Exam limitations: None Provider at Bedside Date/Time Event User Comments 10/10/21 6748 Provider at Bedside Assessing Patient JUSTICE SEXTON -- CHIEF COMPLAINT URI HPI Oscar Rehman is a 35-year-old male who presents [facility] for cough, fatigue. Pt states in last 24hrs has developed fatigue, cough (dry). No sob but states he feels wheezy. Pt states he had asthma as a child. Pt has hx of DM and UC. Pt does not smoke. Pt is vaccinated against COVID and states he had COVID 1 MONTH AGO. PAST MEDICAL HISTORY Past Medical History: Diagnosis Date ??? Asthma ??? Depression ??? Diabetes mellitus (CMS/HCC) ??? Hypertension ??? IBS (irritable bowel syndrome) ??? Ulcerative colitis (CMS/HCC) Negative unless otherwise noted SURGICAL HISTORY Past Surgical History: Procedure Laterality Date ??? COLONOSCOPY Negative unless otherwise noted CURRENT MEDICATIONS No current facility-administered medications for this encounter. Current Outpatient Medications: ??? metFORMIN 500 MG tablet, Take 1 tablet (500 mg total) by mouth 2 (two) times daily with meals. (Patient taking differently: Take 1,000 mg by mouth 2 (two) times daily with meals. ), Disp: 60 tablet, Rfl: 0 ALLERGIES Allergies Allergen Reactions ??? Morphine Other (see comment) Bradycardia. FAMILY HISTORY Family History Problem Relation Name Age of Onset ??? No Known Problems Mother ??? Cancer Father ??? Cancer Brother SOCIAL HISTORY Social History Tobacco Use ??? Smoking status: Never Smoker ??? Smokeless tobacco: Never Used Vaping Use ??? Vaping Use: Never used Substance Use Topics ??? Alcohol use: Yes Comment: very rarely ??? Drug use: No Negative unless otherwise noted REVIEW OF SYSTEMS Review of Systems Respiratory: Positive for cough. All other systems reviewed and negative PHYSICAL EXAM VITAL SIGNS: Filed Vitals: 10/10/21 1740 BP: (!) 151/107 Pulse: 95 Resp: 18 Temp: 99.3 ??F (37.4 ??C) TempSrc: Temporal SpO2: 100% Weight: 129.3 kg (285 lb) Height: 5' 11 (1.803 m) Constitutional: Well developed, Well nourished, No acute distress, Non-toxic appearance. HENT: Normocephalic, Atraumatic, Bilateral external ears normal, Oropharynx moist, No oral exudates, Nose normal. Eyes: PERRL, EOMI, Conjunctiva normal, No discharge. Neck- Normal range of motion, No tenderness, Supple, No stridor. Respiratory: Normal breath sounds, No respiratory distress. Cardiovascular: Normal heart rate, Normal rhythm GI: nd Musculoskeletal: Intact distal pulses, No edema, No tenderness, No cyanosis, No clubbing. Good range of motion in all major joints. No tenderness to palpation or major deformities noted. Back- No tenderness. Integument: Warm, Dry, No erythema, No rash. Lymphatic: No lymphadenopathy noted. Neurologic: Alert & oriented x 3, Normal motor function, Normal sensory function, No focal deficits noted. Psychiatric: Affect normal, Judgment normal, Mood normal. Pulse Oximetry Interpretation Saturation: 100% Oxygen Delivery: room air Interpretation: normal Pertinent Labs: No results found for this visit on 10/10/21. RADIOLOGY XR CHEST PA+LAT Final Result by User, [id number] (10/10 291) PROCEDURE: XR CHEST PA+LAT. 10/10/2021 6:20 PM. TECHNIQUE: 2 views (PA and Lateral) of the chest were performed. HISTORY: Cough. COMPARISON: [facility] chest radiograph, 06/30/2019. FINDINGS: Support Devices: None. Cardiac Silhouette/Mediastinum/Jessica: The cardiac, mediastinal, and hilar contours are within normal limits for age. Lungs/Pleural Spaces: Mild perihilar bronchial wall thickening. No focal consolidations present. The pleural spaces are clear. Chest Wall/Diaphragm/Upper Abdomen: The thoracic musculoskeletal structures and the upper abdomen are within normal limits for age. IMPRESSION: 1. Mild perihilar bronchial wall thickening, which can be seen in reactive airway disease or small airway infection/inflammation. 2. No focal consolidation or pneumothorax. Ordered By: JUSTICE SEXTON Interpreted By: Israel Al MD, 10/10/2021 6:44 PM ED COURSE & MEDICAL DECISION MAKING Pertinent Labs & Imaging studies reviewed. (See chart for details) CXR shows possible bronchitis which clinically correlates. Discussed Rx of prednisone. Covid/flu swab taken as well. ? Disposition Discussion: Diagnostic tests were reviewed and questions answered. Diagnosis, care plan and treatment options were discussed. The patient understand instructions and will follow up as directed. DATE: 10/10/2021 6:49 PM PATIENT: Oscar Rehman Discharge Clinical Impressions: bronchitis Discharge Condition: stable Discharge Disposition: Patient discharge to home with prednisone I spent time answering the patient's questions. Discharge instructions using teach back, understanding assessed and validated. Please refer to the exit quality analyst/technical writer discharge instructions for details surrounding the discharge plan. I did reiterate with the patient that if an urgent need for immediate follow up comes up, not to hesitate to return to the ED. DIVYA Blair PA 10/10/211852 Cosigned by Aleksandra Elizalde MD at 10/12/2021 10:52 PM CDT documented in this encounter Plan of Treatment Not on file documented as of this encounter Procedures Procedure Name Priority Date/Time Associated Diagnosis Comments XR CHEST PA+LAT STAT 10/10/2021 6:44 PM CDT CORONAVIRUS (COVID-19) INFLUENZA A & B ANTIGEN IA PANEL STAT 10/10/2021 6:12 PM CDT documented in this encounter Results * XR CHEST PA+LAT (10/10/2021 6:44 PM CDT) Anatomical Region Laterality Modality Chest Radiographic Britt ging 10/10/2021 6:44 PM CDT Impressions 10/10/2021 6:45 PM CDT IMPRESSION: 1. ??Mild perihilar bronchial wall thickening, which can be seen in reactive airway disease or small airway infection/inflammation. 2. ??No focal consolidation or pneumothorax. Ordered By: JUSTICE SEXTON Interpreted By: Israel Al MD, 10/10/2021 6:44 PM Narrative 10/10/2021 6:45 PM CDT PROCEDURE: ??XR CHEST PA+LAT. ??10/10/2021 6:20 PM. TECHNIQUE: ??2 views (PA and Lateral) of the chest were performed. HISTORY: ??Cough. COMPARISON: ??[facility] chest radiograph, 06/30/2019. FINDINGS: ?? Support Devices: ??None. Cardiac Silhouette/Mediastinum/Jessica: ??The cardiac, mediastinal, and hilar contours are within normal limits for age. Lungs/Pleural Spaces: ??Mild perihilar bronchial wall thickening. No focal consolidations present. The pleural spaces are clear. Chest Wall/Diaphragm/Upper Abdomen: ??The thoracic musculoskeletal structures and the upper abdomen are within normal limits for age. Procedure Note Israel Al MD - 10/10/2021 PROCEDURE: XR CHEST PA+LAT. 10/10/2021 6:20 PM. TECHNIQUE: 2 views (PA and Lateral) of the chest were performed. HISTORY: Cough. COMPARISON: [facility] chest radiograph, 06/30/2019. FINDINGS: Support Devices: None. Cardiac Silhouette/Mediastinum/Jessica: The cardiac, mediastinal, and hilarcontours are within normal limits for age. Lungs/Pleural Spaces: Mild perihilar bronchial wall thickening. No focalconsolidations present. The pleural spaces are clear. Chest Wall/Diaphragm/Upper Abdomen: The thoracic musculoskeletalstructures and the upper abdomen are within normal limits for age. IMPRESSION: 1. Mild perihilar bronchial wall thickening, which can be seen inreactive airway disease or small airway infection/inflammation. 2. No focal consolidation or pneumothorax. Ordered By: JUSTICE SEXTON Interpreted By: Israel Al MD, 10/10/2021 6:44 PM us [facility] Final Resu lt * CORONAVIRUS (COVID-19) INFLUENZA A & B ANTIGEN IA PANEL (10/10/2021 6:12 PM CDT) CORONAVIRUS ANTIGEN IA NEGATIVE NEGATIVE 10/10/2021 8:43 PM CDT [facility] Comment: NEGATIVE RESULTS SHOULD BE TREATED PRESUMPTIVE AND CONFIRMED WITH A MOLECULAR ASSAY IF NECESSARY FOR PATIENT MANAGEMENT. NEGATIVE RESULTS DO NOT RULE OUT COVID 19 AND SHOULD NOT BE USED THE SOLE BASIS FOR TREATMENT OR PATIENT MANAGEMENT DECISIONS, INCLUDING INFECTION CONTROL DECISIONS. NEGATIVE RESULTS SHOULD BE CONSIDERED IN THE CONTEXT OF A PATIENT'S RECENT EXPOSURES, HISTORY AND THE PRESENCE OF CLINICAL SIGNS AND SYMPTOMS CONSISTENT WITH COVID 19. THIS TEST HAS BEEN AUTHORIZED BY THE FDA UNDER AN EMERGENCY USE AUTHORIZATION (EUA) FOR USE BY AUTHORIZED LABORATORIES. INFLUENZA A NEGATIVE NEGATIVE 10/10/2021 8:43 PM CDT [facility] INFLUENZA B NEGATIVE NEGATIVE 10/10/2021 8:43 PM CDT [facility] Comment: Interpretation: Negative for Influenza A [...] requires a separate order. SPECIMEN TYPE NASAL 10/10/2021 6:11 PM CDT [facility] CARE FIRST TEST NO 10/10/2021 6:11 PM CDT [facility] EMPLOYED IN HEALTHCARE NO 10/10/2021 6:11 PM CDT [facility] SYMPTOMATIC DEFINED BY CDC YES 10/10/2021 6:11 PM CDT [facility] DATE OF SYMPTOM ONSET [id number]/10/2021 6:11 PM CDT [facility] HOSPITALIZATION STATUS NO 10/10/2021 6:11 PM CDT [facility] 10/10/2021 6:11 PM CDT [facility] NASAL STRUCTURE / Unknown 10/10/2021 6:12 PM CDT us [facility] GENERAL ORD ERABLES Final Result [facility] [address] [place] [address], [facility] [address] [place] [address], documented in this encounter Visit Diagnoses Diagnosis Bronchitis- Primary Bronchitis, not specified as acute or chronic documented in this encounter Additional Health Concerns Infection Onset Date Last Indicated Resolved Time COVID-19 Rule Out 10/10/2021 10/10/2021 10/10/2021 8:43 PM CDT documented as of this encounter Care Teams Community Health Advisor Relationship Specialty Start Date End Date Starla Parham MD PCP - General FAMILY PRACTICE 11/17/20 documented as of this encounter
--- OUTSIDE RECORDS SUMMARY | 2024-04-04 19:30 | XMS_ITS | Encounter Summary ---
Author Organization [facility] Address [facility]. [place], [place] [id number] [place] [id number] Care Team Providers Care Private Investigator Name Role Phone Yobany Manzanares MD Primary Care Provider [phone] Reason for Referral * Imaging (Emergency) - Closed Specialty Diagnoses / Procedures Referred By Contac t Referred To Contact RADIOLOGY Procedures CT ABD+PEL W IV CON ONLY Carolee Gutierrez ASSISTANT PROFESSOR OF RADIOLOGY Phone: tel: fax: Referral ID Status Reason Start Date Expiration Date Visits Re quested Visits Authorized [id number] Closed 10/11/2018 11/12/2019 1 1 Reason for Visit * Reason Comments Flank Pain Encounter Details Date Type Department Care Team (Late st Contact Info) Description 10/11/2018 5:55 PM CDT - 10/11/2018 9:45 PM CDT Emergency [facility] [place] [address] Carolee Gutierrez NP [address] [id number] Flank Pain Discharge Disposition: Home or Self Care (Routine [...] Sign Reading Time Taken Comments Blood Pressure 128/86 10/11/2018 9:40 PM CDT Pulse 83 10/11/2018 9:22 PM CDT Temperature 36.6 ??C (97.8 ??F) 10/11/2018 5:41 PM CD T Respiratory Rate 18 10/11/2018 9:22 PM CDT Oxygen Saturation 96% 10/11/2018 9:40 PM CDT Inhaled Oxygen Concentration - - Weight 137.4 kg (303 lb) 10/11/2018 5:41 PM CDT Height 180.3 cm (5' 11 ) 10/11/2018 5:41 PM CDT Body Mass Index 42.26 10/11/2018 5:41 PM CDT documented in this encounter Discharge Instructions * Attachments The following attachments cannot be sent through Care Everywhere. * Acute Abdomen (Belly Pain) Discharge Instructions, Adult ([place]) documented in this encounter Medications at Time of Discharge metFORMIN 500 MG tablet Take 1 tablet (500 mg total) by mouth 2 (two) times daily with meals. 60 tablet 07/11/2018 dicyclomine 10 MG capsule Take 1 capsule (10 mg total) by mouth 4 (four) times daily as needed. 40 capsule 10/11/2018 2 dicyclomine 20 MG tablet Take 1 tablet (20 mg total) by mouth every 6 (six) hours. 120 tablet 07/11/2018 2 hydrocodone-acetamin ophen (NORCO) 5-325 MG tablet Take 1 tablet by mouth nightly at bedtime. 12 tablet 10/11/2018 1 naproxen sodium 220 MG tablet Take 440 mg by mouth daily as needed (back pain). Takes most days per patient 2 ondansetron 4 MG disintegrating tablet Take 1 tablet (4 mg total) by mouth every 8 (eight) hours as needed for Nausea. 20 tablet 07/11/2018 2 documented as of this encounter ED Notes * Emi San RN - 10/11/2018 9:45 PM CDT Pt verbalized understanding of medications and follow up care. No questions or concerns at this time. Pt ambulatory and AxO x 4 at discharge. Emi San RN * Lata Dillard - 10/11/2018 7:46 PM CDT Pt returned from CT scan with reports of having several bouts of emesis. Reported to RN. * HOSEA Dasilva - 10/11/2018 5:46 PM CDT Emergency Department Note Chief Complaint Chief Complaint Patient presents with ??? Flank Pain History of Present Illness C/o tingling in left side of his arm, then face and legs, not all at the same time that started today. Blood sugars have ranged from 65 to 300s over the past 2 days. Has been diagnosed with diabetes in June, was on metformin but developed diarrhea, has crohns, so metformin was stopped and has been on glipermide 2 mg twice daily since. No insulin Has chest pain or left upper abdominal pain from the front to the side, points to lower rib cage and flank , no vomiting or diarrhea. Denies history of kidney stones, no difficulty breathing and no hematuria. Works 80 hours a week at [employer] does not sleep well Did stop drinking sodas, no potatoes and no white bread, not sure how much weight he has lost. Medical History ALLERGIES: Allergies Allergen Reactions ??? Morphine Other (see comment) Bradycardia. MEDICATIONS: Prior to Admission medications Medication Sig Start Date End Date Taking? Authorizing Provider dicyclomine 10 MG capsule Take 1 capsule (10 mg total) by mouth 4 (four) times daily as needed. 10/11/18 Yes HOSEA Dasilva hydrocodone-acetaminophen (NORCO) 5-325 MG tablet Take 1 tablet by mouth nightly at bedtime. 10/11/18 Yes HOSEA Dasilva dicyclomine 20 MG tablet Take 1 tablet (20 mg total) by mouth every 6 (six) hours. 07/11/18 HOSEA Dasilva metFORMIN 500 MG tablet Take 1 tablet (500 mg total) by mouth 2 (two) times daily with meals. 07/11/18 HOSEA Dasilva naproxen sodium 220 MG tablet Take 440 mg by mouth daily as needed (back pain). Takes most days perpatient Doc Abstract ondansetron 4 MG disintegrating tablet Take 1 tablet (4 mg total) by mouth every 8 (eight) hours asneeded for Nausea. 07/11/18 HOSEA Dasilva PAST MEDICAL HISTORY: Past Medical History: Diagnosis Date ??? Asthma ??? Depression ??? Diabetes mellitus (CMS/HCC) ??? IBS (irritable bowel syndrome) ??? Ulcerative colitis (CMS/HCC) PAST SURGICAL HISTORY: Past Surgical History: Procedure Laterality Date ??? COLONOSCOPY FAMILY HISTORY: No family history on file. SOCIAL HISTORY: Social History Tobacco Use ??? Smoking status: Never Smoker ??? Smokeless tobacco: Never Used Substance Use Topics ??? Alcohol use: Yes Comment: very rarely ??? Drug use: No Review of Systems Review of Systems Constitutional: Negative for chills and fever. HENT: Negative for sore throat. Respiratory: Negative for cough and shortness of breath. Cardiovascular: Positive for chest pain. Gastrointestinal: Positive for abdominal pain. Negative for constipation, diarrhea and nausea. Genitourinary: Negative for difficulty urinating. Skin: Negative for rash. Neurological: Positive for dizziness. Negative for speech difficulty, weakness, light-headedness, numbness and headaches. + for paresthesias scattered to left side Psychiatric/Behavioral: Negative for decreased concentration. Physical Exam Filed Vitals: 10/11/18 1945 10/11/18 2000 10/11/182 10/11/18 2140 BP: (!) 137/96 (!) 142/92 118/90 128/86 Pulse: 83 Resp: Temp: TempSrc: SpO2: 96% 95% 94% 96% Weight: Height: Physical Exam Constitutional: He is oriented to person, place, and time. He appears well- developed and well-nourished. No distress. HENT: Head: Normocephalic. Eyes: Pupils are equal, round, and reactive to light. Neck: Neck supple. Cardiovascular: Normal rate, regular rhythm, normal heart sounds and intact distal pulses. No murmur heard. Pulmonary/Chest: Effort normal and breath sounds normal. Abdominal: Soft. Bowel sounds are normal. There is tenderness. Diffusely tender. Musculoskeletal: He exhibits no edema or tenderness. Neurological: He is alert and oriented to person, place, and time. Skin: Skin is warm and dry. No pallor. Psychiatric: He has a normal mood and affect. His behavior is normal. Judgment and thought content normal. Nursing note and vitals reviewed. Diagnostic Studies / Procedures ELECTROCARDIOGRAMS: Results for orders placed or performed during the hospital encounter of 10/11/18 ECG 12 lead Narrative [place] Test Date: 2018-10-11 Pat Name: AMA REHMAN Department: Room: [facility] Gender: Male [employer]: mc : 1985 Requested By: CAROLEE GUTIERREZ Order Number: [id number] Reading MD: Measurements Intervals [place] Rate: 96 P: 20 [place]: 155 QRS: -15 QRSD: 85 T: 31 QT: 335 QTc: 423 Interpretive Statements SINUS RHYTHM INFERIOR MYOCARDIAL INFARCTION, OF INDETERMINATE AGE Compared to ECG 07/11/2018 14:45:48 Myocardial infarct finding now present Sinus tachycardia no longer present LABORATORY STUDIES: Results for orders placed or performed during the hospital encounter of 10/11/18 CBC W/DIFF AUTOMATED Result Value Ref Range WBC 7.0 4.5 - 11.0 x10'3/uL RBC 5.13 4.70 - 6.10 x10'6/uL HGB 14.7 14.0 - 18.0 G/DL HCT 45.6 43.0 - 54.0 % MCV 88.9 80.0 - 94.0 FL MCH 28.7 27.0 - 31.0 PG MCHC 32.2 32.0 - 36.0 G/DL RDW 11.9 11.5 - 14.5 % PLT 260 130 - 400 x10'3/uL MPV 9.9 9.3 - 12.2 FL DIFFERENTIAL TYPE AUTOMATED DIFFERENTIAL NEUTROPHILS 59.9 % LYMPHOCYTES 32.0 % MONOCYTES 5.0 % EOSINOPHILS 1.9 % BASOPHILS 0.6 % IMMATURE GRANS 0.6 % ABS. NEUTROPHILS TOTAL 4.19 1.80 - 7.70 x10'3/uL ABS. LYMPHOCYTES 2.24 1.00 - 4.80 x10'3/uL ABS. MONOCYTES 0.35 0.30 - 0.82 x10'3/uL ABS. EOSINOPHILS 0.13 0.04 - 0.54 x10'3/uL ABS. BASOPHILS 0.04 0.01 - 0.08 x10'3/uL ABS. IMMATURE GRANULOCYTES 0.04 0.00 - 0.49 x10'3/uL ARTERIAL BLOOD GAS Result Value Ref Range TIME TEST WAS PERFORMED: 1,909 SAMPLE TYPE ARTERIAL DRAW SITE RT RADIAL TECH CODE 520,049 PH 7.42 7.35 - 7.45 PCO2 43.9 35 - 45 MM HG PO2 66.5 (L) 80 - 100 MM HG BICARB-ARTERIAL 28.4 (H) 21 - 28 MEQ/L TCO2 29.7 MEQ/L BE/BASE EXCESS 3.2 (H) 0 - 2 MEQ/L Hemoglobin, Blood Gas 14.8 14.0 - 18.0 G/DL % O2 HEMOGLOBIN,ARTERIAL 90.3 (L) 95 - 100 % CARBON MONOXIDE 0.8 <3.0 % Meth Hemoglobin 0.6 0.4 - 1.5 % O2 CONTENT 18.9 15 - 22 VOL% AADO2 30.8 P/F RATIO (TIDAL VOL CALC) 317 MAGNESIUM Result Value Ref Range MAGNESIUM 2.0 1.8 - 2.4 MG/DL LACTIC ACID Result Value Ref Range LACTIC ACID 2.1 (H) 0.4 - 2.0 MMOL/L COMPREHENSIVE METABOLIC PANEL Result Value Ref Range GLUCOSE 143 (H) 70 - 99 MG/DL BUN 11 7 - 18 MG/DL CREATININE 1.07 0.7 - 1.3 MG/DL SODIUM 139 136 - 145 MMOL/L POTASSIUM 3.3 (L) 3.5 - 5.1 MMOL/L CHLORIDE 105 100 - 108 MMOL/L CO2 27.1 21 - 32 MMOL/L CALCIUM 9.0 8.5 - 10.1 MG/DL TOTAL BILIRUBIN 0.5 0.2 - 1.2 MG/DL TOTAL PROTEIN 7.8 6.4 - 8.2 G/DL ALBUMIN 4.1 3.4 - 5.0 G/DL AST 36 15 - 37 U/L ALT 61 (H) 16 - 60 U/L ALK PHOS 76 50 - 136 U/L ANION GAP 6.9 5 - 15 MMOL/L BUN CREATININE RATIO 10.3 6 - 26 A/G RATIO 1.1 1.0 - 2.0 RATIO eGFR Non-Afr. Amer. >90 >90 ML/MIN/1.73 M2 eGFR Afr. Amer. >90 >90 ML/MIN/1.73 M2 PHOSPHORUS, INORGANIC PHOSPHATE Result Value Ref Range PHOSPHORUS 4.0 2.5 - 4.9 MG/DL TROPONIN, QUANT Result Value Ref Range TROPONIN I <0.015 <0.045 ng/mL. Bedside Blood Glucose Result Value Ref Range WHOLE BLOOD GLUCOSE 148 (A) 70 - 100 mg/dL POCT glucose Result Value Ref Range GLUCOSE POC 148 (H) 70 - 99 mg/dL POCT glucose Result Value Ref Range GLUCOSE POC 132 (H) 70 - 99 mg/dL IMAGING STUDIES CT ABD+PEL W IV CON ONLY Final Result by User, [id number] (10/11 2001) EXAMINATION: CT ABDOMEN AND PELVIS WITH CONTRAST HISTORY: Abdominal pain. Left upper extremity tingling. Recent elevated blood glucose. COMPARISON: 07/11/2018. TECHNIQUE: 3 mm axial images were obtained through the abdomen and pelvis following the administration of 120 MLS of ISOVUE-370 intravenous contrast through an existing IV line. Additional sagittal & coronal reconstructions were performed. FINDINGS: ABDOMEN: Imaging of the lung bases demonstrates no airspace consolidation or effusions. Liver: Enlarged with fatty infiltration.. No masses. Spleen: Normal size and CT density. Pancreas: Normal size and CT density. No duct dilatation. No masses. Adrenal Glands: Normal in size and CT density. No masses. Gallbladder and bile ducts: Normal in appearance. No duct dilatation. Kidneys: Normal shape, size and position. No right or left hydronephrosis. Symmetric perfusion. Normal excretion. No masses. Aorta: Patent. Normal in caliber. IVC: Patent. Normal in caliber. GI Tract: No small bowel obstruction. No intraperitoneal or retroperitoneal adenopathy or hematoma. No ascites or pneumoperitoneum is seen. Stable geographic area of central mesenteric mild fat stranding with multiple small subcentimeter nodules. PELVIS: Colon: Normal in caliber and appearance without focal inflammatory changes. Appendix: Normal. Urinary Bladder: Well distended. Prostate: Not enlarged. No pelvic free fluid, hematoma, mass or adenopathy. BONES: No distinct destructive bony lesions. IMPRESSION: 1. No acute intra-abdominal or pelvic abnormality to account for reported symptoms. 2. No bowel obstruction or acute appendicitis. 3. No acute obstructive uropathy. 4. Stable geographic area of central mesenteric mild fat stranding with multiple small subcentimeter nodules consistent with maureen mesentery with differential diagnostic considerations including edema, lymphedema, hemorrhage, fibrosis as well as inflammatory and neoplastic infiltration. A radiation dose lowering technique was used for this procedure, which may include, but is not limited to, dose reduction technique, automated exposure control, the use of iterative reconstruction, ALARA (As Low As Reasonably Achievable) techniques, and Image Gently techniques. Interpreted By: Db Goodman MD, 10/11/2018 7:44 PM XR CHEST PORTABLE Final Result by User, [id number] (10/11 1837) EXAMINATION: CHEST X-RAY ONE VIEW EXAM TIME: 1829 hours. COMPARISON: 07/11/2018. HISTORY: Chest pain. Unstable blood glucose levels. Left flank pain. FINDINGS: A single portable AP view of the chest is submitted for evaluation. The heart is within normal limits in size. Pulmonary vascularity is within normal limits. The lungs are well expanded without focal airspace consolidation. No pleural effusions. No pneumothorax. IMPRESSION: No acute cardiopulmonary process. Interpreted By: Db Goodman MD, 10/11/2018 6:37 PM ED Course / Medical Decision Making ED Course as of Oct 11 2212 Sat Oct 11, 2018 183 GLUCOSE POC: (!) 148 [LM] 1830 EKG INTERPRETATION Date: 10/11/18 Time: 1802 Interpretation: Inferior VT, age indeterminate VR: 96 QTc: 423 Ectopy : no Ekg interpretation provided by Dr Scott No ischemic changes Prior EKG for comparison 07/11/18, st no longer present. Normal intervals, no ectopy. Reviewed and scribed by me, ASSISTANT PROFESSOR OF RADIOLOGY [LM] 1841 Vs noted, bp elevated on arrival. Sat is 99% on room air and normal. Cxr portable noted, heartsize normal, no infiltrate and no pneumothorax. Noted report by radiologist. [LM] 1840 Labs pending [LM] [address] Zofran ordered. Drove self here. No ride at present time. [LM] ED Course User Index [LM] Carolee Gutierrez, APNP Medications dextrose 50 % solution 25-50 mL (not administered) glucagon injection 1 mg (not administered) sodium chloride 0.9% bolus infusion SOLN 2,000 mL (0 mLs Intravenous Infusion Stop Time 10/11/182139) potassium chloride CR (K-TAB) tablet 20 mEq (20 mEq Oral Given 10/11/181919) iopamidol (ISOVUE-370) 76 % injection 100 mL (100 mLs Intravenous Given 10/11/181943) ondansetron (ZOFRAN) injection 4 mg (4 mg Intravenous Given 10/11/181954) Clinical Impression Left upper quadrant pain (Primary) Low risk for pulmonary embolism by PERC criteria: Age < 50 Pulse < 100 SaO2 > 94% No unilateral leg swelling No hemoptysis, No recent surgery, No prior PE or DVT, No oral hormone use Based on the above the patient is felt Low Risk for PE. Discharge Medication List as of 10/11/2018 9:41 PM START taking these medications Details dicyclomine 10 MG capsule Take 1 capsule (10 mg total) by mouth 4 (four) times daily as needed., Starting 10/11/2018, Print Class: Print Pharmacy: [facility]/pharmacy #[id number] [place], [place] - [address] AT [facility] (Ph #: [phone]) hydrocodone-acetaminophen (NORCO) 5-325 MG tablet Take 1 tablet by mouth nightly at bedtime., Starting 10/11/2018, Print Class: Print Pharmacy: [facility]/pharmacy #[id number] - [place], [place] - [address] [facility] (Ph #: [phone]) Medications dextrose 50 % solution 25-50 mL (not administered) glucagon injection 1 mg (not administered) sodium chloride 0.9% bolus infusion SOLN 2,000 mL (0 mLs Intravenous Infusion Stop Time 10/11/182139) potassium chloride CR (K-TAB) tablet 20 mEq (20 mEq Oral Given 10/11/181919) iopamidol (ISOVUE-370) 76 % injection 100 mL (100 mLs Intravenous Given 10/11/181943) ondansetron (ZOFRAN) injection 4 mg (4 mg Intravenous Given 10/11/181954) Did discuss results Advised less heavy workload States he will take tomorrow off work Discharge Medication List as of 10/11/2018 9:41 PM START taking these medications Details dicyclomine 10 MG capsule Take 1 capsule (10 mg total) by mouth 4 (four) times daily as needed., Starting 10/11/2018, Print Class: Print Pharmacy: [facility]/pharmacy #[id number] - [place], [place] - [address] [facility] (Ph #: [phone]) hydrocodone-acetaminophen (NORCO) 5-325 MG tablet Take 1 tablet by mouth nightly at bedtime., Starting 10/11/2018, Print Class: Print Pharmacy: [facility]/pharmacy #[id number] - [place], [place] - [address] [facility] (Ph #: [phone]) Disposition: Discharge Follow-Up: Yobany Manzanares MD [address] [address] Schedule an appointment as soon as possible for a visit HOSEA DASILVA 10/11/2018 HOSEA Dasilva 10/11/18 1238 Cosigned by Manuel Hardy MD at 10/12/2018 4:24 AM CDT * Que Box RN - 10/11/2018 5:43 PM CDT Pt states his blood sugars have been all over the place from the 60's to 300's states is having side/ left flank pain that started on . documented in this encounter Plan of Treatment Not on file documented as of this encounter Procedures Procedure Name Priority Date/Time Associated Diagnosis Comments CT ABD+PEL W CON STAT 10/11/2018 7:44 PM CDT BLOOD GAS, ARTERIAL LAB STAT 10/11/2018 7:02 PM CDT XR CHEST PORTABLE STAT 10/11/2018 6:3 6 PM CDT POCT GLUCOSE - LOCKE DOCKED DEVICE Routine 10/11/2018 6:30 PM CDT COMPREHENSIVE METABOLIC PANEL STAT 10/11/2018 6:24 PM CDT LACTIC ACID TIMED 10/11/2018 6:24 PM CDT CBC W/DIFF AUTOMATED STAT 10/11/2018 6:24 PM CDT TROPONIN, QUANT STAT 10/11/2018 6:24 PM CDT PHOSPHORUS, INORGANIC PHOSPHATE STAT 10/11/2018 6:24 PM CDT MAGNESIUM STAT 10/11/2018 6:24 PM CDT ECG 12-LEAD STAT 10/11/2018 6:03 PM CDT POCT BEDSIDE BLOOD GLUCOSE STAT 10/11/2018 5:52 PM CDT POCT GLUCOSE - LOCKE DOCKED DEVICE Routine 10/11/2018 5:50 PM CDT documented in this encounter Results * CT ABD+PEL W IV CON ONLY (10/11/2018 7:44 PM CDT) Anatomical Region Laterality Modality Abdomen Computed Tomogra phy 10/11/2018 7:44 PM CDT Impressions 10/11/2018 8:01 PM CDT IMPRESSION: 1. No acute intra-abdominal or pelvic abnormality to account for reported symptoms. 2. No bowel obstruction or acute appendicitis. 3. No acute obstructive uropathy. 4. Stable geographic area of central mesenteric mild fat stranding with multiple small subcentimeter nodules consistent with maureen mesentery with differential diagnostic considerations including edema, lymphedema, hemorrhage, fibrosis as well as inflammatory and neoplastic infiltration. A radiation dose lowering technique was used for this procedure, which may include, but is not limited to, dose reduction technique, automated exposure control, the use of iterative reconstruction, ALARA (As Low As Reasonably Achievable) techniques, and Image Gently techniques. Interpreted By: Db Goodman MD, 10/11/2018 7:44 PM Narrative 10/11/2018 8:01 PM CDT EXAMINATION: CT ABDOMEN AND PELVIS WITH CONTRAST HISTORY: Abdominal pain. ??Left upper extremity tingling. ??Recent elevated blood glucose. COMPARISON: 07/11/2018. TECHNIQUE: 3 mm axial images were obtained through the abdomen and pelvis following the administration of 120 MLS of ISOVUE-370 intravenous contrast through an existing IV line. Additional sagittal & coronal reconstructions were performed. FINDINGS: ABDOMEN: Imaging of the lung bases demonstrates no airspace consolidation or effusions. Liver: Enlarged with fatty infiltration.. No masses. Spleen: Normal size and CT density. Pancreas: Normal size and CT density. No duct dilatation. No masses. Adrenal Glands: Normal in size and CT density. No masses. Gallbladder and bile ducts: Normal in appearance. No duct dilatation. Kidneys: Normal shape, size and position. No right or left hydronephrosis. Symmetric perfusion. Normal excretion. No masses. Aorta: Patent. Normal in caliber. IVC: Patent. Normal in caliber. ?? GI Tract: No small bowel obstruction. No intraperitoneal ??or retroperitoneal adenopathy or hematoma. No ascites or pneumoperitoneum is seen. Stable geographic area of central mesenteric mild fat stranding with multiple small subcentimeter nodules. PELVIS: Colon: Normal in caliber and appearance without focal inflammatory changes. Appendix: Normal. Urinary Bladder: Well distended. Prostate: Not enlarged. No pelvic free fluid, hematoma, mass or adenopathy. BONES: No distinct destructive bony lesions. Procedure Note Ifeanyi Goodman MD - 07/13/2019 EXAMINATION: CT ABDOMEN AND PELVIS WITH CONTRAST HISTORY: Abdominal pain. Left upper extremity tingling. Recent elevated bloodglucose. COMPARISON: 07/11/2018. TECHNIQUE: 3 mm axial images were obtained through the abdomen and pelvis followingthe administration of 120 MLS of ISOVUE-370 intravenous contrast throughan existing IV line. Additional sagittal & coronal reconstructions wereperformed. FINDINGS: ABDOMEN: Imaging of the lung bases demonstrates no airspace consolidation oreffusions. Liver: Enlarged with fatty infiltration.. No masses. Spleen: Normal size and CT density. Pancreas: Normal size and CT density. No duct dilatation. No masses. Adrenal Glands: Normal in size and CT density. No masses. Gallbladder and bile ducts: Normal in appearance. No duct dilatation. Kidneys: Normal shape, size and position. No right or left hydronephrosis.Symmetric perfusion. Normal excretion. No masses. Aorta: Patent. Normal in caliber. IVC: Patent. Normal in caliber. GI Tract: No small bowel obstruction. No intraperitoneal or retroperitoneal adenopathy or hematoma. No ascites or pneumoperitoneum is seen. Stable geographic area of central mesenteric mild fat stranding withmultiple small subcentimeter nodules. PELVIS: Colon: Normal in caliber and appearance without focal inflammatorychanges. Appendix: Normal. Urinary Bladder: Well distended. Prostate: Not enlarged. No pelvic free fluid, hematoma, mass or adenopathy. BONES: No distinct destructive bony lesions. IMPRESSION: 1. No acute intra-abdominal or pelvic abnormality to account for reportedsymptoms. 2. No bowel obstruction or acute appendicitis. 3. No acute obstructive uropathy. 4. Stable geographic area of central mesenteric mild fat stranding withmultiple small subcentimeter nodules consistent with maureen mesentery withdifferential diagnostic considerations including edema, lymphedema,hemorrhage, fibrosis as well as inflammatory and neoplasticinfiltration. A radiation dose lowering technique was used for this procedure, which mayinclude, but is not limited to, dose reduction technique, automatedexposure control, the use of iterative reconstruction, ALARA (As Low AsReasonably Achievable) techniques, and Image Gently techniques. Interpreted By: bD Goodman MD, 10/11/2018 7:44 PM Carolee Paiz Veronica ASSISTANT PROFESSOR OF RADIOLOGY CT Final Result * (ABNORMAL) ARTERIAL BLOOD GAS (10/11/2018 7:02 PM CDT) TIME TEST WAS PERFORMED: 1909 10/11/2018 7:09 PM CDT [facility] SAMPLE TYPE ARTERIAL 10/11/2018 7:09 PM CDT [facility] DRAW SITE RT RADIAL 10/11/2018 7:09 PM CDT [facility] DRINKING WATER TECHNICIAN CODE 520,049 10/11/2018 7:09 PM CDT [facility] PH ARTERIAL 7.42 7.35 - 7.45 10/11/2018 7:11 PM CDT [facility] PCO2 43.9 35 - 45 MM HG 10/11/2018 7:11 PM CDT [facility] PO2 66.5(L) 80 - 100 MM HG 10/11/2018 7:11 PM CDT [facility] BICARB ARTERIAL 28.4(H) 21 - 28 MEQ/L 10/11/2018 7:11 PM CDT [facility] TCO2 29.7 MEQ/L 10/11/2018 7:11 PM CDT [facility] BE/BASE EXCESS 3.2(H) 0 - 2 MEQ/L 10/11/2018 7:11 PM CDT [facility] HEMOGLOBIN BLOOD GAS 14.8 14.0 - 18.0 G/DL 10/11/2018 7:11 PM CDT [facility] % O2 HEMOGLOBIN ARTERIAL 90.3(L) 95 - 100 % 10/11/2018 7:11 PM CDT [facility] CARBON MONOXIDE 0.8 <3.0 % 9 7:11 PM CDT [facility] METHEMOGLOBIN 0.6 0.4 - 1.5 % 10/11/2018 7:11 PM CDT [facility] O2 CONTENT 18.9 15 - 22 VOL% 10/11/2018 7:11 PM CDT [facility] AADO2 30.8 10/11/2018 7:11 PM CDT [facility] P/F RATIO (TIDAL VOL CALC) 317 10/11/2018 7:11 PM CDT [facility] 10/11/2018 7:02 PM CDT us Carolee Gutierrez NP LABORATORY Final Result [facility] [address] [place] [address], [place] [phone] * XR CHEST PORTABLE (10/11/2018 6:36 PM CDT) Anatomical Region Laterality Modality Chest Fluoroscopy 10/11/2018 6:37 PM CDT Impressions 10/11/2018 6:37 PM CDT IMPRESSION: No acute cardiopulmonary process. Interpreted By: Db Goodman MD, 10/11/2018 6:37 PM Narrative 10/11/2018 6:37 PM CDT EXAMINATION: CHEST X-RAY ONE VIEW EXAM TIME: 1829 hours. COMPARISON: 07/11/2018. HISTORY: Chest pain. ??Unstable blood glucose levels. ??Left flank pain. FINDINGS: A single portable AP view of the chest is submitted for evaluation. The heart is within normal limits in size. Pulmonary vascularity is within normal limits. The lungs are well expanded without focal airspace consolidation. No pleural effusions. No pneumothorax. Procedure Note Ifeanyi Goodman MD - 10/11/2018 EXAMINATION: CHEST X-RAY ONE VIEW EXAM TIME: 1829 hours. COMPARISON: 07/11/2018. HISTORY: Chest pain. Unstable blood glucose levels. Left flank pain. FINDINGS: A single portable AP view of the chest is submitted for evaluation. Theheart is within normal limits in size. Pulmonary vascularity is withinnormal limits. The lungs are well expanded without focal airspaceconsolidation. No pleural effusions. No pneumothorax. IMPRESSION: No acute cardiopulmonary process. Interpreted By: Db Goodman MD, 10/11/2018 6:37 PM us Carolee Gutierrez NP GENERAL IMAGING Final Result * (ABNORMAL) POCT glucose (10/11/2018 6:30 PM CDT) GLUCOSE POC 132(H) 70 - 99 mg/dL 10/11/2018 6:31 PM CDT [facility] ORDERS INTERFACE 10/11/2018 6:30 PM CDT Carolee Gutierrez ASSISTANT PROFESSOR OF RADIOLOGY POCT ORDERABLES - DEVICE Marylu l Result Performing Organization Address City/[facility] [address]/[facility] Co de Phone Number [facility] ORDERS INTERFACE US * TROPONIN, QUANT (10/11/2018 6:24 PM CDT) Pathologist [facility] TROPONIN I <0.015 <0.045 ng/mL. 10/11/2018 7:05 PM CDT [facility] Comment: HIGH DOSES OF BIOTIN MAY INTERFERE WITH THIS TEST RESULT. CORRELATION TO CLINICAL HISTORY AND PRESENTATION RECOMMENDED. 10/11/2018 6:24 PM CDT Carolee Gutierrez NP LABORATORY Final Result Performing Organization Address City/[facility] [address]/ZIP Co de Phone Number [facility] [address] [place] [address], [place] [phone] * PHOSPHORUS, INORGANIC PHOSPHATE (10/11/2018 6:24 PM CDT) PHOSPHORUS 4.0 2.5 - 4.9 MG/DL 10/11/2018 7:05 PM CDT [facility] 10/11/2018 6:24 PM CDT Carolee Gutierrez ASSISTANT PROFESSOR OF RADIOLOGY LABORATORY Final Result [facility] [address] [place] [address], [place] [phone] * (ABNORMAL) COMPREHENSIVE METABOLIC PANEL (10/11/2018 6:24 PM CDT) GLUCOSE 143(H) 70 - 99 MG/DL 10/11/2018 7:05 PM CDT [facility] BUN 11 7 - 18 MG/DL 10/11/2018 7:05 PM CDT [facility] CREATININE S/P/B 1.07 0.7 - 1.3 MG/DL 10/11/2018 7:05 PM CDT [facility] SODIUM S/P/B 139 136 - 145 MMOL/L 10/11/2018 7:05 PM CDT [facility] POTASSIUM S/P/B 3.3(L) 3.5 - 5.1 MMOL/L 10/11/2018 7:05 PM CDT [facility] CHLORIDE S/P/B 105 100 - 108 MMOL/L 10/11/2018 7:05 PM CDT [facility] CO2 27.1 21 - 32 MMOL/L 10/11/2018 7:05 PM CDT [facility] CALCIUM S/P/B 9.0 8.5 - 10.1 MG/DL 10/11/2018 7:05 PM CDT [facility] BILIRUBIN TOTAL S/P/B 0.5 0.2 - 1.2 MG/DL 10/11/2018 7:05 PM CDT [facility] TOTAL PROTEIN S/P/B 7.8 6.4 - 8.2 G/DL 10/11/2018 7:05 PM T [facility] ALBUMIN S/P/B 4.1 3.4 - 5.0 G/DL 10/11/2018 7:05 PM T [facility] AST 36 15 - 37 U/L 10/11/2018 7:05 PM T [facility] ALT 61(H) 16 - 60 U/L 10/11/2018 7:05 PM T [facility] ALKALINE PHOSPHATASE S/P/B 76 50 - 136 U/L 10/11/2018 7:05 PM T [facility] ANION GAP 6.9 5 - 15 MMOL/L 10/11/2018 7:05 PM T [facility] BUN CREATININE RATIO 10.3 6 - 26 10/11/2018 7:05 PM T [facility] A/G RATIO 1.1 1.0 - 2.0 RATIO 10/11/2018 7:05 PM [facility] EGFR NON-AFR. AMER. >90 >90 ML/MIN/1.7 3 M2 10/11/2018 7:05 PM T [facility] EGFR AFR. AMER. >90 >90 ML/MIN/1.7 3 M2 10/11/2018 7:05 PM T [facility] Comment: NOTE: eGFR is not calculated for patients <18 years of age. This is an estimated GFR (CKD EPI) and should not be used for calculating drug doses. 10/11/2018 6:24 PM CDT us Carolee Gutierrez NP LABORATORY Final Result [facility] [address] [place] [address], [place] [phone] * (ABNORMAL) LACTIC ACID (10/11/2018 6:24 PM CDT) Pathologist [facility] LACTIC ACID VENOUS 2.1(H) 0.4 - 2.0 MMOL/L 10/11/2018 7:26 PM CDT [facility] 10/11/2018 6:24 PM CDT Carolee Gutierrez ASSISTANT PROFESSOR OF RADIOLOGY LABORATORY Final Result [facility] [address] [place] [address], [place] [phone] * MAGNESIUM (10/11/2018 6:24 PM CDT) [facility] MAGNESIUM 2.0 1.8 - 2.4 MG/DL 10/11/2018 7:05 PM CDT [facility] 10/11/2018 6:24 PM CDT Carolee Gutierrez ASSISTANT PROFESSOR OF RADIOLOGY LABORATORY Final Result [facility] [address] [place] [address], [place] [phone] * CBC W/DIFF AUTOMATED (10/11/2018 6:24 PM CDT) Pathologist [facility] WBC 7.0 4.5 - 11.0 x10'3/uL 10/11/2018 6:44 PM CDT [facility] RBC 5.13 4.70 - 6.10 x10'6/uL 10/11/2018 6:44 PM CDT [facility] HGB 14.7 14.0 - 18.0 G/DL 10/11/2018 6:44 PM CDT [facility] HCT 45.6 43.0 - 54.0 % 10/11/2018 6:44 PM CDT [facility] MCV 88.9 80.0 - 94.0 FL 10/11/2018 6:44 PM CDT [facility] MCH 28.7 27.0 - 31.0 PG 10/11/2018 6:44 PM CDT [facility] MCHC 32.2 32.0 - 36.0 G/DL 10/11/2018 6:44 PM CDT [facility] RDW 11.9 11.5 - 14.5 % 10/11/2018 6:44 PM CDT [facility] PLT 260 130 - 400 x10'3/uL 10/11/2018 6:44 PM CDT [facility] MPV 9.9 9.3 - 12.2 FL 10/11/2018 6:44 PM CDT [facility] DIFFERENTIAL TYPE AUTOMATED DIFFERENTIAL 10/11/2018 6:44 PM CDT [facility] NEUTROPHILS % 59.9 % 10/11/2018 6:44 PM CDT [facility] LYMPHOCYTES % 32.0 % 10/11/2018 6:44 PM CDT [facility] MONOCYTES % 5.0 % 10/11/2018 6:44 PM CDT [facility] EOSINOPHILS 1.9 % 10/11/2018 6:44 PM CDT [facility] BASOPHILS 0.6 % 10/11/2018 6:44 PM CDT [facility] IMMATURE GRANS % 0.6 % 10/12/19 6:44 PM CDT [facility] ABS. NEUTROPHILS TOTAL 4.19 1.80 - 7.70 x10'3/uL 10/11/2018 6:44 PM CDT [facility] ABS. LYMPHOCYTES 2.24 1.00 - 4.80 x10'3/uL 10/11/2018 6:44 PM CDT [facility] ABS. MONOCYTES 0.35 0.30 - 0.82 x10'3/uL 10/11/2018 6:44 PM CDT [facility] ABS. EOSINOPHILS 0.13 0.04 - 0.54 x10'3/uL 10/11/2018 6:44 PM CDT [facility] ABS. BASOPHILS 0.04 0.01 - 0.08 x10'3/uL 10/11/2018 6:44 PM CDT [facility] ABS. IMMATURE GRANULOCYTES 0.04 0.00 - 0.49 x10'3/uL 10/11/2018 6:44 PM CDT [facility] 10/11/2018 6:24 PM CDT Carolee Gutierrez NP LABORATORY Final Result [facility] [address] [place] [address], * ECG 12 lead (10/11/2018 6:03 PM CDT) 10/11/2018 6:03 PM CDT Narrative [facility] ([facility] - 10/12/2018 7:02 PM CDT ?[facility] [place] ? [address] [facility] ? Test Date: ?2018-10-11 Pat Name: ? AMA REHMAN ?Department: ? Room: ? EXAM09 Gender: ? Male ? [employer]: ?? cm : ?1985 ? Requested By: CAROLEE GUTIERREZ Order Number: [id number] ? Reading MD: ?? Chris Scally ? Measurements Intervals ?[place] ? Rate: ? 96 ? P: ?20 [place]: ? 155 ?QRS: ?-15 QRSD: ? 85 ? T: ?31 QT: ? 335 ? QTc: ?423 ? Interpretive Statements SINUS RHYTHM INFERIOR MYOCARDIAL INFARCTION, OF INDETERMINATE AGE Compared to ECG 07/11/2018 14:45:48 Myocardial infarct finding now present Sinus tachycardia no longer present Jude Scott M.D. No ischemic changes CRITICAL ALERT ISSUED ON 10-11-2018 18:08:02 Procedure Note Chris Pool MD - 10/12/[address] Test Date: 2018-10-11 Pat Name: AMA REHMAN Department: Room: [facility] Gender: Male [employer]: mc : 1985 Requested By: CAROLEE GUTIERREZ Order Number: [id number] Reading MD: Chris Pool Measurements Intervals [place] Rate: 96 P: 20 [place]: 155 QRS: -15 QRSD: 85 T: 31 QT: 335 QTc: 423 Interpretive Statements SINUS RHYTHM INFERIOR MYOCARDIAL INFARCTION, OF INDETERMINATE AGE Compared to ECG 07/11/2018 14:45:48 Myocardial infarct finding now present Sinus tachycardia no longer present Jude Scott M.D. No ischemic changes CRITICAL ALERT ISSUED ON 10-11-2018 18:08:02 us Carolee Gutierrez ASSISTANT PROFESSOR OF RADIOLOGY ECG ORDERABLES Final Result [facility] * (ABNORMAL) Bedside Blood Glucose (10/11/2018 5:52 PM CDT) GLUCOSE WHOLE BLOOD 148(A) 70 - 100 mg/dL us Carolee Gutierrez ASSISTANT PROFESSOR OF RADIOLOGY NURSING TREATMENT ORDERABLES - ONCE OR INTERVALS Final Result * (ABNORMAL) POCT glucose (10/11/2018 5:50 PM CDT) GLUCOSE POC 148(H) 70 - 99 mg/dL 10/11/2018 5:53 PM CDT [facility] ORDERS INTERFACE 10/11/2018 5:50 PM CDT us Attending Physician Emergency MD POCT ORDERABLES - DEVICE Final Result [facility] ORDERS INTERFACE US documented in this encounter Visit Diagnoses Diagnosis Left upper quadrant pain- Primary Abdominal pain, left upper quadrant documented in this encounter Administered Medications Inactive Administered Medications - up to 3 most recent administrations Medication Order MAR Action Action Date Dose Rate Site dextrose 50 % solution 25-50 mL 25-50 mL, Intravenous, As needed, Low blood sugar, Starting on 10/11/18 at 1745, Until 10/11/18 at 2346, Use in conjunction with DKA insulin and fluid orders. Administer slowly through a Y-site with fluid #2 to permit dilution. Glucose 70-100 - give 25 mL (12.5 g) Glucose below 70 - give 50 mL (25 g) When insulin infusion is discontinued, discontinue this order and use standard hypoglycemia standing orders. glucagon injection 1 mg 1 mg, Intramuscular, Once as needed, Other, Low blood sugar, 1 dose, Starting on 10/11/18 at 1745, Until 10/11/18 at 2346, If patient is verbally UNresponsive and no IV access with blood glucose less than 70 mg/dL. Do NOT repeat administration. iopamidol (ISOVUE-370) 76 % injection 100 mL 100 mL, Intravenous, IMG once as needed, Contrast, 1 dose, Starting on 10/11/18 at 1944, Until 10/11/18 at 1944 Given 10/11/2018 7:44 PM CDT 100 mLs Right Arm ondansetron (ZOFRAN) injection 4 mg 4 mg, Intravenous, Once, 1 dose, On 10/11/18 at 2000, IV push over 2-5 minutes. Given 10/11/2018 7:55 PM CDT 4 mg potassium chloride CR (K-TAB) tablet 20 mEq 20 mEq, Oral, Once, 1 dose, On 10/11/18 at 1915, Do not break, chew, or crush. Given 10/11/2018 7:20 PM CDT 20 mEq sodium chloride 0.9% bolus infusion SOLN 2,000 mL 2,000 mL, Intravenous, Administer over 15 Minutes, Once, 1 dose, On 10/11/18 at 1800, Minimum of 2 liters suggested New Bag 10/11/2018 7:56 PM CDT 2,000 mLs documented in this encounter Active and Recently Administered Medications Times are shown in CDT. Scheduled Medication Order 10/09/2018 10/10/2018 10/11/2018 ondansetron (ZOFRAN) injection 4 mg (COMPLETED) 4 mg, Intravenous, Once, 1 dose, On 10/11/18 at 2000, IV push over 2-5 minutes. 1954 (Given - Provid er: Cici Gandara RN) potassium chloride CR (K-TAB) tablet 20 mEq (COMPLETED) 20 mEq, Oral, Once, 1 dose, On 10/11/18 at 1915, Do not break, chew, or crush. 1919 (Given - Provid er: Emi San RN) sodium chloride 0.9% bolus infusion SOLN 2,000 mL (COMPLETED) 2,000 mL, Intravenous, Administer over 15 Minutes, Once, 1 dose, On 10/11/18 at 1800, Minimum of 2 liters suggested 1955 (New Bag - Prov ider: Cici Gandara RN)2139 (Infusion Stop Time - Provider: Emi San RN) PRN Medication Order 10/09/2018 10/10/2018 10/11/2018 dextrose 50 % solution 25-50 mL 25-50 mL, Intravenous, As needed, Low blood sugar, Starting on 10/11/18 at 1745, Until 10/11/18 at 2346, Use in conjunction with DKA insulin and fluid orders. Administer slowly through a Y-site with fluid #2 to permit dilution. Glucose 70-100 - give 25 mL (12.5 g) Glucose below 70 - give 50 mL (25 g) When insulin infusion is discontinued, discontinue this order and use standard hypoglycemia standing orders. glucagon injection 1 mg 1 mg, Intramuscular, Once as needed, Other, Low blood sugar, 1 dose, Starting on 10/11/18 at 1745, Until 10/11/18 at 2346, If patient is verbally UNresponsive and no IV access with blood glucose less than 70 mg/dL. Do NOT repeat administration. iopamidol (ISOVUE-370) 76 % injection 100 mL (COMPLETED) 100 mL, Intravenous, IMG once as needed, Contrast, 1 dose, Starting on 10/11/18 at 1944, Until 10/11/18 at 194 194 (Given - Provid er: Areli Stratton, RTR) documented in this encounter Care Teams Private Investigator Relationship Specialty Start Date End Date Yobany Manzanares MD [address] [place] [address] PCP - General INTERNAL MEDICINE 07/11/18 11/12/19 documented as of this encounter
--- OUTSIDE RECORDS SUMMARY | 2024-04-04 19:30 | XMS_ITS | Encounter Summary ---
Author Organization [facility] Address [address] [place] [address]. [place], [place] [address] [place] [address] Care Team Providers Care Wallpaper Scraper Name Role Phone Starla Parham MD Primary Care Provider [phone] Encounter Details Date Type Department Care Team (Latest Contact Info) Description 11/24/2020 Travel Social History Tobacco Use Types Packs/Day [...] on filedocumented in this encounter Care Teams Wallpaper Scraper Relationship Specialty Start Date End Date Starla Parham MD PCP - General FAMILY PRACTICE 11/17/20 documented as of this encounter
--- OUTSIDE RECORDS SUMMARY | 2024-04-04 19:30 | XMS_ITS | Encounter Summary ---
Author Organization [facility] Address [facility] [facility]. [place], [place] [address] [place] [address] Care Team Providers Care Psych Social Worker Name Role Phone Veronique Severino MD Primary Care Provider Unavailable Encounter Details Date Type Department Care Team (Late st Contact Info) Description 05/14/2011 Abstract [facility] CONVERSION [address] [place] [address] Becky Caicedo MD Social History Tobacco Use Types Packs/Day Years Used Date Smoking Tobacco: Never Assessed Sex and Gender Information Value Date Recorded Sex Assigned at Not on file Legal Sex Male 8:30 PM CDT Gender Identity Not on file Sexual Orientation Not on file documented as of this encounter Plan of Treatment Not on file documented as of this encounter Visit Diagnoses Diagnosis Closed dislocation, lumbar vertebra documented in this encounter Care Teams Psych Social Worker Relationship Specialty Start Date End Date Veronique Severino MD PCP - General 04/13/12 documented as of this encounter
--- OUTSIDE RECORDS SUMMARY | 2024-04-04 19:30 | XMS_ITS | Encounter Summary ---
Author Organization [facility] Address [facility] [facility] [place] [address] [place] [address] Care Team Providers Care Soot Blower Name Role Phone Veronique Severino MD Primary Care Provider Unavailable Encounter Details Date Type Department Care Team (Late st Contact Info) Description 04/27/2009 Abstract [facility] Diagnostic Imaging [address] [place] [address] Veronique Severino MD Social History Tobacco Use Types Packs/Day [...] on filedocumented in this encounter Care Teams Soot Blower Relationship Specialty Start Date End Date Veronique Severino MD PCP - General 04/13/12 documented as of this encounter
--- OUTSIDE RECORDS SUMMARY | 2024-04-04 19:30 | XMS_ITS | Encounter Summary ---
Author Organization [facility] Address [facility] [facility] [place] [address] [place] [address] Care Team Providers Care Functional Consultant Name Role Phone Veronique Severnio MD Primary Care Provider Unavailable Encounter Details Date Type Department Care Team (Late st Contact Info) Description 05/03/2009 Abstract [facility] Diagnostic Imaging [address] [place] [address] Veronique Severino MD Social History Tobacco Use [...] on filedocumented in this encounter Care Teams Functional Consultant Relationship Specialty Start Date End Date Veronique Severino MD PCP - General 04/13/12 documented as of this encounter
--- OUTSIDE RECORDS SUMMARY | 2024-04-04 19:30 | XMS_ITS | Encounter Summary ---
Author Organization [facility] Address [address] [place] [address]. [place] [address] [place] [address] Care Team Providers Care Infant Babysitter Name Role Phone Starla Parham MD Primary Care Provider [phone] Reason for Visit * Reason Onset Date Comments Advice 12/30/2020 Encounter Details Date Type Department Care Team (Late st Contact Info) Description 12/30/2020 Telephone [facility] - [facility] [address] [facility] [place] [id number] Oscar Christopher MD [address] [place], [place] [id number] Advice Social History Tobacco Use Types Packs/Day Years [...] have Coronavirus / COVID-19? No / Unsure 12/30/2020 5:41 PM CDT documented as of this encounter Progress Notes * Beatriz Craig RN - 01/02/2021 9:40 AM CDT PCP office faxed back on old HbA1C , but we were asking for recent. MRI done 12/30 was normal for shoulder. Did not mention pec area, just impingement in the cervical spine. I called Oscar and told him we are still waiting for the W/C authorization/billing information to schedule him. I gave him the fax number to the Ortho office. He will be scheduled with Dr Faith on a Saturday or with Dr Christopher here once we get approval * Lucille Sanz MA - 12/30/2020 1:44 PM CDT LVM for PCP to return call patients referral states this is a work comp injury we have to have workcomp information/billing/wad compressor operator adjuster etc as well as permission in writing to be able to see him. I also see his last A1c was done 09/25/2019 with a result of 9.5 we need to know if he has had one drawn more recently and if so what the result it. I asked nurse to give this information to the phone roomand have it documented in the task so we will see it Saturday documented in this encounter Plan of Treatment Not on file documented as of this encounter Visit Diagnoses Not on filedocumented in this encounter Care Teams Infant Babysitter Relationship Specialty Start Date End Date Starla Parham MD PCP - General FAMILY PRACTICE 11/17/20 documented as of this encounter
--- OUTSIDE RECORDS SUMMARY | 2024-04-04 19:30 | XMS_ITS | Encounter Summary ---
Author Organization [facility] Address [facility] [place] [address] [place] [address] Care Team Providers Care Aviation Ordnance Officer Name Role Phone Veronique Severino MD Primary Care Provider Unavailable Encounter Details Date Type Department Care Team (Late st Contact Info) Description 04/23/2009 Abstract [facility] [address] [facility] [address] Crow Johnson MD Social History Tobacco Use Types Packs/Day [...] on filedocumented in this encounter Care Teams Aviation Ordnance Officer Relationship Specialty Start Date End Date Veronique Severino MD PCP - General 04/13/12 documented as of this encounter
--- OUTSIDE RECORDS SUMMARY | 2024-04-04 19:30 | XMS_ITS | Encounter Summary ---
Author Organization [facility] Address [address] [place] [address]. [place], [place] [id number] [place] [id number] Care Team Providers Care Ingot Header Name Role Phone None, Provider Primary Care Provider Unavaila ble Reason for Visit * Reason Comments Hyperglycemia Vomiting Encounter Details Date Type Department Care Team ([facility] Contact Info) Description 11/13/2019 8:22 PM CDT - 11/14/2019 12:38 AM CDT Emergency [facility] [place] [address] Maida Rivera, DIVYA [address] [place], [place] [id number] Hyperglycemia; Vomiting Discharge Disposition: Home or Self Care (Routine [...] have Coronavirus / COVID-19? No / Unsure 11/13/2019 5:05 PM CDT documented as of this encounter Last Filed Vital Signs Vital Sign Reading Time Taken Comments Blood Pressure 116/77 11/14/2019 12:00 AM CDT Pulse 96 11/13/2019 8:40 PM CDT Temperature 36.4 ??C (97.6 ??F) 11/13/2019 5:44 PM CD T Respiratory Rate 18 11/13/2019 11:00 PM CDT Oxygen Saturation 95% 11/14/2019 12:00 AM CDT Inhaled Oxygen Concentration - - Weight 137.4 kg (303 lb) 11/13/2019 5:44 PM CDT Height 180.3 cm (5' 11 ) 11/13/2019 5:44 PM CDT Body Mass Index 42.26 11/13/2019 5:44 PM CDT documented in this encounter Discharge Instructions * Discharge Instructions* DIVYA Nichole - 11/14/2019 12:10 AM CDT Please call [facility] clinic first thing Saturday morning and as for a 24 hour appointment. Continue taking glimepiride as you were prescribed previously twice a day since you have been on this medicine for over a year. Keep a log at home of your sugars and bring to your appointment this coming week. Return to the emergency room for any new worsening symptoms especially for fever, chest pain, shortness of breath, confusion, weakness, uncontrollable vomiting, excessively high sugars, severe headache or other new emergent concerns. Thank you for giving us the opportunity to care for you today. If at any point you are becoming more ill, your condition worsens or have concern, please call your doctor or return here. You are always welcome back. If you have any questions about this visit, concerns about your symptoms, questions about your medications or other concerns, please give us a call... Our practice is committed to providing you the exceptional care. We want to hear from you! Please fill out the survey you get from us. Your feedback is anonymous & helps us improve the patient experience for you and others in the community we serve. - Maida Rivera PA-C - Emergency Medicine Provider ADDITIONAL DISCHARGE INSTRUCTIONS: --Please follow all the instructions that we have discussed or are provided here. Take all medications as directed. --Emergency Departments (ED) provide medical screening exams and initial stabilizing treatment of emergency medical conditions. Medicine is an inexact science and many conditions cannot be diagnosed or completely treated during a single ED visit. Your treating healthcare provider(s) today feel yourcondition has been stabilized so further care as an outpatient is reasonable. Emergency care does not substitute for complete, ongoing, or follow-up care by your primary care physician or mobile sales consultant.Please mention to your follow-up physician that you were in the emergency department and request that they review your labs and/or imaging to ensure all findings are followed up on. --Your medication list was reviewed prior to treatment, and at discharge, by the treating provider for the purpose of this outpatient visit only. Please review this entire medication list with your pharmacist, primary care physician, and specialist(s). It is your responsibility to share any new medication instructions you received this visit with your doctor(s). Although no medicine is without risk, your healthcare provider today feels reasonable decisions were made concerning starting new medications and stopping or changing the dosages of your usual medications until you receive follow-up care. Take medications only as directed. Many medications can cause drowsiness, especially those for pain, anxiety, muscle spasms, nausea, and allergies. DO NOT drive, drink alcohol, operate power machinery, or participate in potentially dangerous activities if taking medicines that make you tired. Chronic pain is best managed by pain specialists or primary care physicians, so narcotic refills are not routinely dispensed in the ED. DO NOT take multiple medications containing acetaminophen (Tylenol), such as many narcotic drug combinations and wgrg-kji-ktozhte cold medicines. --Again, it was a pleasure taking care of you. * Attachments The following attachments cannot be sent through Care Everywhere. * Nausea and Vomiting Discharge Instructions, Adult (Luxembourger) documented in this encounter Medications at Time [...] nightly at bedtime. 12 tablet 10/11/2018 1 insulin lispro prot & lispro (75-25) 100 UNIT/ML injection (PEN) 09/30/2019 2 naproxen sodium 220 MG tablet Take 440 mg by mouth daily as needed (back pain). Takes most days per patient 2 ondansetron 4 MG disintegrating tablet Take 1 tablet (4 mg total) by mouth every 8 (eight) hours as needed for Nausea. 20 tablet 07/11/2018 2 documented as of this encounter ED Notes * DIVYA Nichole - 11/13/2019 9:58 PM CDT [place], [place] EMERGENCY DEPARTMENT ENCOUNTER Chief Complaint Chief Complaint Patient presents with ??? Hyperglycemia ??? Vomiting History of Present Illness Provider at Bedside Date/Time Event User Comments 11/13/19 9150 Provider at Bedside Assessing Patient VINITA HAND History provided by: Patient inspector wreath used: No Hyperglycemia Associated symptoms: fatigue and vomiting Associated symptoms: no abdominal pain, no chest pain, no dizziness, no dysuria, no fever, no nausea and no shortness of breath Vomiting Associated symptoms: no abdominal pain, no chills, no cough, no diarrhea, no fever and no sore throat 34-year-old male who presents to the ED for evaluation of hyperglycemia and vomiting. Pt was recently hospitalized at [facility] for 1 week due to an infection. He is typically on glimepiride for his diabetes but it no longer works as well so they gave him a prescription for insulin that he is not out of for a little over one day, and he has been unable to find a PCP. He came in for an insulin refill. He states that he doesn't feel too bad. He had one bout of emesis in the bathroom and he feelsfatigued. Pt denies experiencing any pain, any recent LOC, LEACH, or weakness. He does note that he has noticed his feet tingling. Pt is on 35 units of insulin, once in the morning and once at night with no sliding. Medical History ALLERGIES: Allergies Allergen Reactions ??? Morphine Other (see comment) Bradycardia. MEDICATIONS: Prior to Admission medications Medication Sig Start Date End Date Taking? Authorizing Provider cetirizine 10 MG tablet Take 10 mg by mouth daily. 10/05/19 Yes Doc Abstract insulin lispro prot & lispro (75-25) 100 UNIT/ML injection (PEN) 09/30/19 Yes Doc Abstract albuterol sulfate HFA 108 (90 Base) MCG/ACT inhaler Inhale 2 puffs into the lungs every 6 (six) hours as needed for Wheezing or Shortness of breath. 06/30/19 Vinita Hand APRN dicyclomine 10 MG capsule Take 1 capsule (10 mg total) by mouth 4 (four) times daily as needed. 10/11/18 Carolee Martin NP dicyclomine 20 MG tablet Take 1 tablet (20 mg total) by mouth every 6 (six) hours. 07/11/18 Carolee Martin NP hydrocodone-acetaminophen (NORCO) 5-325 MG tablet Take 1 tablet by mouth nightly at bedtime. 10/11/18 Carolee Martin NP metFORMIN 500 MG tablet Take 1 tablet (500 mg total) by mouth 2 (two) times daily with meals. 07/11/18 Carolee Martin NP naproxen sodium 220 MG tablet Take 440 mg by mouth daily as needed (back pain). Takes most days perpatient Doc Abstract ondansetron 4 MG disintegrating tablet Take 1 tablet (4 mg total) by mouth every 8 (eight) hours asneeded for Nausea. 07/11/18 Carolee Martin NP PAST MEDICAL HISTORY: Past Medical History: Diagnosis [...] Review of Systems Review of Systems Constitutional: Positive for fatigue. Negative for chills and fever. HENT: Negative for ear pain, sinus pain and sore throat. Eyes: Negative for pain and visual disturbance. Respiratory: Negative for cough and shortness of breath. Cardiovascular: Negative for chest pain and palpitations. Gastrointestinal: Positive for vomiting. Negative for abdominal pain, diarrhea and nausea. Endocrine: Hyperglycemia Genitourinary: Negative for dysuria, hematuria and urgency. Musculoskeletal: Negative for back pain and neck pain. Skin: Negative for rash and wound. Allergic/Immunologic: Negative for food allergies. Neurological: Negative for dizziness, tremors, seizures and numbness. Psychiatric/Behavioral: Negative. See HPI for further details. All systems negative except as marked. Physical Exam Filed Vitals: 11/13/19 2200 11/13/19 2230 11/13/19 2300 11/14/19 0000 BP: (!) 125/94 122/77 105/72 116/77 Pulse: Resp: 18 Temp: TempSrc: SpO2: 96% 95% 95% 95% Weight: Height: Physical Exam Constitutional: He is oriented to person, place, and time. He appears well- developed and well-nourished. HENT: Head: Normocephalic and atraumatic. Eyes: Conjunctivae are normal. Neck: Normal range of motion. Neck supple. Cardiovascular: Normal rate, regular rhythm, normal heart sounds and intact distal pulses. Pulmonary/Chest: Effort normal and breath sounds normal. No respiratory distress. Abdominal: Soft. Bowel sounds are normal. He exhibits no distension. There is no tenderness. Musculoskeletal: Normal range of motion. He exhibits no edema. Neurological: He is alert and oriented to person, place, and time. Skin: Skin is warm and dry. Capillary refill takes less than 2 seconds. Psychiatric: He has a normal mood and affect. His behavior is normal. Nursing note and vitals reviewed. Diagnostic Studies / Procedures ELECTROCARDIOGRAMS: Results for orders placed or performed during the hospital encounter of 11/13/19 [address] [facility] [address] [place] [address] Test Date: 2019-11-13 Pat Name: AMA REHMAN Department: Room: [facility] Gender: Male Payroll Master: ALMITA : 1985 Requested By: VINITA HAND Order Number: [id number] Reading MD: Vel Gan Measurements Intervals [place] Rate: 96 P: 32 ID: [id number] QRS: 0 QRSD: 87 T: 29 QT: 346 QTc: 438 Interpretive Statements SINUS RHYTHM Compared to ECG 10/11/2018 18:03:16 No significant changes Preliminary EKG interpretation by ED Physician No ischemic changes Cleveland Navarro M.D. CRITICAL ALERT ISSUED ON 11-13-2019 20:57:47 LABORATORY STUDIES: Results for orders placed or performed during the hospital encounter of 11/13/19 CBC W/DIFF AUTOMATED Result Value Ref Range WBC 7.4 4.5 - 11.0 x10'3/uL RBC 4.76 4.70 - 6.10 x10'6/uL HGB 14.2 14.0 - 18.0 G/DL HCT 43.3 43.0 - 54.0 % MCV 91.0 80.0 - 94.0 FL MCH 29.8 27.0 - 31.0 PG MCHC 32.8 32.0 - 36.0 G/DL RDW 11.9 11.5 - 14.5 % PLT 284 130 - 400 x10'3/uL MPV 10.1 9.3 - 12.2 FL DIFFERENTIAL TYPE AUTOMATED DIFFERENTIAL NEUTROPHILS 44.5 % LYMPHOCYTES 44.0 % MONOCYTES 8.9 % EOSINOPHILS 1.7 % BASOPHILS 0.4 % IMMATURE GRANS 0.5 % ABS. NEUTROPHILS TOTAL 3.31 1.80 - 7.70 x10'3/uL ABS. LYMPHOCYTES 3.27 1.00 - 4.80 x10'3/uL ABS. MONOCYTES 0.66 0.30 - 0.82 x10'3/uL ABS. EOSINOPHILS 0.13 0.04 - 0.54 x10'3/uL ABS. BASOPHILS 0.03 0.01 - 0.08 x10'3/uL ABS. IMMATURE GRANULOCYTES 0.04 0.00 - 0.49 x10'3/uL COMPREHENSIVE METABOLIC PANEL Result Value Ref Range GLUCOSE 99 70 - 99 MG/DL BUN 12 7 - 18 MG/DL CREATININE S/P/B 1.06 0.7 - 1.3 MG/DL SODIUM 139 136 - 145 MMOL/L POTASSIUM 3.5 3.5 - 5.1 MMOL/L CHLORIDE S/P/B 106 100 - 108 MMOL/L CO2 27.0 21 - 32 MMOL/L CALCIUM 9.0 8.5 - 10.1 MG/DL BILIRUBIN TOTAL S/P/B 0.1 (L) 0.2 - 1.2 MG/DL TOTAL PROTEIN S/P/B 7.5 6.4 - 8.2 G/DL ALBUMIN S/P/B 4.0 3.4 - 5.0 G/DL AST 35 15 - 37 U/L ALT 52 16 - 60 U/L ALKALINE PHOSPHATASE S/P/B 84 50 - 136 U/L ANION GAP 6.0 5 - 15 MMOL/L BUN CREATININE RATIO 11.3 6 - 26 A/G RATIO 1.1 1.0 - 2.0 RATIO eGFR Non-Afr. Amer. >90 >90 ML/MIN/1.73 M2 eGFR Afr. Amer. >90 >90 ML/MIN/1.73 M2 URINALYSIS Result Value Ref Range Specimen Type URINE CLEAN CATCH COLOR (U) LIGHT YELLOW TRANSPARENCY TURBID Specific [place] (U) 1.029 1.001 - 1.030 U PH 6.5 5.0 - 9.0 LEUKOCYTE ESTERASE NEGATIVE NEGATIVE NITRITES NEGATIVE NEGATIVE PROTEIN (U) 10 <30 MG/DL URINE GLUCOSE NORMAL NORMAL MG/DL U KETONES NEGATIVE NEGATIVE MG/DL UROBILINOGEN NORMAL NORMAL MG/DL BILIRUBIN (U) NEGATIVE NEGATIVE MG/DL BLOOD NEGATIVE NEGATIVE CULTURE & SENSITIVITY INDICATED? CULTURE IS NOT INDICATED TROPONIN, QUANT Result Value Ref Range TROPONIN I <0.015 <0.045 ng/mL. LIPASE Result Value Ref Range LIPASE 201 73 - 393 UNITS/L POCT glucose Result Value Ref Range GLUCOSE POC 163 (H) 70 - 99 mg/dL IMAGING STUDIES No orders to display ED Course / Medical Decision Making ED Course as of Nov 18 1428SatNov 13, [id number] PROTEIN (U): 10 [AD] 2146 U KETONES: NEGATIVE [AD] 2259 EKG rate 96 bpm ID 157 QTc 438 No ischemic changes, read by attending Dr. Navarro [AD] 2303 S/w Dr. Everett regarding pt getting normal sugars. To discuss need for close follow-up. Will come and see patient to establish care and for follow-up. [AD] 2333 Dr. Everett at bedside to evaluate pt [AD] ED Course User Index [AD] DIVYA Nichole Pulse Ox Interpretation: Normal Saturation: 96 (%) Oxygen Delivery: Room Air Interpretation: No acute hypoxia at this time. Rhythm strip interpretation: Rhythm sinus rate 96. No ectopy. Data reviewed: All current, pertinent and timely studies (laboratory, imaging, and procedures) wereordered and results reviewed by No att. providers found unless otherwise noted. Triage notes and available nursing notes reviewed. Previous medical record reviewed when available. Repeat vital signsreviewed. Medications sodium chloride 0.9% bolus infusion SOLN 1,000 mL (0 mLs Intravenous Infusion Stop Time 11/13/192320) ondansetron (ZOFRAN) injection 4 mg (4 mg Intravenous Given 11/13/192143) Clinical Impression Medication refill (Primary) Vomiting Discharge Medication List as of 11/14/2019 12:27 AM Disposition: Discharge Follow-Up: Cleveland Braun, acting as a scribe, am personally taking down the notes in the presence ofNo att. providers found. Take no action on this note until reviewed and authenticated by the physician. DIVYA Nichole 11/19/191428 Cosigned by Cleveland Navarro MD at 11/19/2019 9:41 PM CDT * Dinah Manning RN - 11/13/2019 9:23 PM CDT Bed: 15 Expected date: Expected time: Means of arrival: Comments: TG3 * Vinita Hand APRN - 11/13/2019 5:47 PM CDT [place], [place] EMERGENCY DEPARTMENT ENCOUNTER Medical Screening Examination 11/13/19 5:47 PM Chief Complaint : Hyperglycemia and Vomiting HPI : Ama Rehman is a 34-year-old male who presents to the ER with c/o being out of his diabetic medications for 1.5 days. Today he reports N/V and dizziness. He has been unable to est a newPCP. His accuchek on arrival was 163 Vital Signs: Filed Vitals: 11/13/19 1744 BP: (!) 154/112 Pulse: 101 Resp: 20 Temp: 97.6 ??F (36.4 ??C) TempSrc: Temporal SpO2: 97% Weight: (!) 137.4 kg (303 lb) Height: 5' 11 (1.803 m) Physical exam: A brief physical exam was completed to facilitate/expedite patient care. Plan: Necessary labs/imaging/medications ordered to initiate pt care. Please excuse any grammatical or spelling errors as this chart was documented using Sangart, a dictation software. Vinita Hand APRN 11/13/19 1749 Cosigned by Otilio Cook MD at 11/14/2019 12:03 PM CDT * Adore White RN - 11/13/2019 5:46 PM CDT Patient ambulatory to triage with c/o hyperglycemia. Patient reports being out of his insulin for 11/2 days. Patient has had vomiting and feels lightheaded. BS in triage 163. ADORE WHITE RN documented in this encounter Plan of Treatment Not on file documented as of this encounter Procedures Procedure Name Priority Date/Time Associated Diagnosis Comments HC URINALYSIS AUTO W/O MICRO STAT 11/13/2019 9:02 PM CDT COMPREHENSIVE METABOLIC PANEL STAT 11/13/2019 9:02 PM CDT CBC W/DIFF AUTOMATED STAT 11/13/2019 9:02 PM CDT TROPONIN, QUANT STAT 11/13/2019 9:02 PM CDT LIPASE STAT 11/13/2019 9:02 PM CDT ECG 12-LEAD Routine 11/13/2019 8:53 PM CDT POCT GLUCOSE - LOCKE DOCKED DEVICE Routine 11/13/2019 5:43 PM CDT documented in this encounter Results * LIPASE (11/13/2019 9:02 PM CDT) LIPASE 201 73 - 393 UNITS/L 11/13/2019 10:17 PM CDT [facility] 11/13/2019 9:02 PM CDT Vinita Hand APRN LABORATORY Final Result Performing Organization Address [facility]/ZIP Co de Phone Number [facility] [address] [place] [address], [place] [phone] * TROPONIN, QUANT (11/13/2019 9:02 PM CDT) TROPONIN I <0.015 <0.045 ng/mL. 11/13/2019 10:17 PM CDT [facility] Comment: HIGH DOSES OF BIOTIN MAY INTERFERE WITH THIS TEST RESULT. CORRELATION TO CLINICAL HISTORY AND PRESENTATION RECOMMENDED. 11/13/2019 9:02 PM CDT Vinita Hand APRN LABORATORY Final Result [facility] [address] [place] [address], * URINALYSIS (11/13/2019 9:02 PM CDT) SPECIMEN TYPE URINE CLEAN CATCH 11/13/2019 9:10 PM CDT [facility] COLOR (U) LIGHT YELLOW 11/13/2019 9:27 PM CDT [facility] TRANSPARENCY TURBID 11/13/2019 9:27 PM CDT [facility] SPECIFIC GRAVITY (U) 1.029 1.001 - 1.030 11/13/2019 9:27 PM CDT [facility] U PH 6.5 5.0 - 9.0 11/13/2019 9:27 PM CDT [facility] LEUKOCYTES (U) NEGATIVE NEGATIVE 11/13/2019 9:27 PM CDT [facility] NITRITES NEGATIVE NEGATIVE 11/13/2019 9:27 PM CDT [facility] PROTEIN (U) 10 <30 MG/DL 11/13/2019 9:27 PM CDT [facility] URINE GLUCOSE NORMAL NORMAL MG/DL 11/13/2019 9:27 PM CDT [facility] KETONES MG/DL (U) NEGATIVE NEGATIVE MG/DL 11/13/2019 9:27 PM CDT [facility] UROBILINOGEN NORMAL NORMAL MG/DL 11/13/2019 9:27 PM CDT [facility] BILIRUBIN (U) NEGATIVE NEGATIVE MG/DL 11/13/2019 9:27 PM CDT [facility] BLOOD (U) NEGATIVE NEGATIVE 11/13/2019 9:27 PM CDT [facility] CULTURE & SENSITIVITY INDICATED? CULTURE IS NOT INDICATED 11/13/2019 9:27 PM CDT [facility] URINE SPECIMEN OBTAINED BY CLEAN CATCH PROCEDURE / Unknown 11/13/2019 9:02 PM CDT Vinita Hand TRANSMITTER TESTER URINE ORDERABLES Final Result [facility] [address] [place] [address], * (ABNORMAL) COMPREHENSIVE METABOLIC PANEL (11/13/2019 9:02 PM CDT) Pathologist [facility] [place] GLUCOSE 99 70 - 99 MG/DL 11/13/2019 10:17 PM CDT [facility] BUN 12 7 - 18 MG/DL 11/13/2019 10:17 PM CDT [facility] CREATININE S/P/B 1.06 0.7 - 1.3 MG/DL 11/13/2019 10:17 PM CDT [facility] SODIUM S/P/B 139 136 - 145 MMOL/L 11/13/2019 10:17 PM CDT [facility] POTASSIUM S/P/B 3.5 3.5 - 5.1 MMOL/L 11/13/2019 10:17 PM CDT [facility] CHLORIDE S/P/B 106 100 - 108 MMOL/L 11/13/2019 10:17 PM CDT [facility] CO2 27.0 21 - 32 MMOL/L 11/13/2019 10:17 PM CDT [facility] CALCIUM S/P/B 9.0 8.5 - 10.1 MG/DL 11/13/2019 10:17 PM CDT [facility] BILIRUBIN TOTAL S/P/B 0.1(L) 0.2 - 1.2 MG/DL 11/13/2019 10:17 PM CDT [facility] Comment: THIS ASSAY IS NOT RECOMMENDED FOR PATIENTS UNDERGOING TREATMENT WITH ELTROMBOPAG DUE TO THE POTENTIAL FOR FALSELY ELEVATED RESULTS. TOTAL PROTEIN S/P/B 7.5 6.4 - 8.2 G/DL 11/13/2019 10:17 PM CDT [facility] ALBUMIN S/P/B 4.0 3.4 - 5.0 G/DL 11/13/2019 10:17 PM CDT [facility] AST 35 15 - 37 U/L 11/13/2019 10:17 PM CDT [facility] ALT 52 16 - 60 U/L 11/13/2019 10:17 PM CDT [facility] ALKALINE PHOSPHATASE S/P/B 84 50 - 136 U/L 11/13/2019 10:17 PM T [facility] ANION GAP 6.0 5 - 15 MMOL/L 11/13/2019 10:17 PM T [facility] BUN CREATININE RATIO 11.3 6 - 26 11/13/2019 10:17 PM CDT [facility] A/G RATIO 1.1 1.0 - 2.0 RATIO 11/13/2019 10:17 PM T [facility] EGFR NON-AFR. AMER. >90 >90 ML/MIN/1.7 3 M2 11/13/2019 10:17 PM CDT [facility] EGFR AFR. AMER. >90 >90 ML/MIN/1.7 3 M2 11/13/2019 10:17 PM T [facility] Comment: NOTE: eGFR is not calculated for patients <18 years of age. This is an estimated GFR (CKD EPI) and should not be used for calculating drug doses. 11/13/2019 9:02 PM CDT us Vinita Hand TRANSMITTER TESTER LABORATORY Final Result [facility] [address] [place] [address], [place] [phone] * CBC W/DIFF AUTOMATED (11/13/2019 9:02 PM CDT) [facility] Signature WBC 7.4 4.5 - 11.0 x10'3/uL 11/13/2019 9:32 PM CDT [facility] RBC 4.76 4.70 - 6.10 x10'6/uL 11/13/2019 9:32 PM CDT [facility] HGB 14.2 14.0 - 18.0 G/DL 11/13/2019 9:32 PM CDT [facility] HCT 43.3 43.0 - 54.0 % 11/13/2019 9:32 PM CDT [facility] MCV 91.0 80.0 - 94.0 FL 11/13/2019 9:32 PM CDT [facility] MCH 29.8 27.0 - 31.0 PG 11/13/2019 9:32 PM CDT [facility] MCHC 32.8 32.0 - 36.0 G/DL 11/13/2019 9:32 PM CDT [facility] RDW 11.9 11.5 - 14.5 % 11/13/2019 9:32 PM CDT [facility] PLT 284 130 - 400 x10'3/uL 11/13/2019 9:32 PM CDT [facility] MPV 10.1 9.3 - 12.2 FL 11/13/2019 9:32 PM CDT [facility] DIFFERENTIAL TYPE AUTOMATED DIFFERENTIAL 11/13/2019 9:32 PM CDT [facility] NEUTROPHILS % 44.5 % 11/13/2019 9:32 PM CDT [facility] LYMPHOCYTES % 44.0 % 11/13/2019 9:32 PM CDT [facility] MONOCYTES % 8.9 % 11/13/2019 9:32 PM CDT [facility] EOSINOPHILS 1.7 % 11/13/2019 9:32 PM CDT [facility] BASOPHILS 0.4 % 11/13/2019 9:32 PM CDT [facility] IMMATURE GRANS % 0.5 % 11/13/19 20 9:32 PM CDT [facility] ABS. NEUTROPHILS TOTAL 3.31 1.80 - 7.70 x10'3/uL 11/13/2019 9:32 PM CDT [facility] ABS. LYMPHOCYTES 3.27 1.00 - 4.80 x10'3/uL 11/13/2019 9:32 PM CDT [facility] ABS. MONOCYTES 0.66 0.30 - 0.82 x10'3/uL 11/13/2019 9:32 PM CDT [facility] ABS. EOSINOPHILS 0.13 0.04 - 0.54 x10'3/uL 11/13/2019 9:32 PM CDT [facility] ABS. BASOPHILS 0.03 0.01 - 0.08 x10'3/uL 11/13/2019 9:32 PM CDT [facility] ABS. IMMATURE GRANULOCYTES 0.04 0.00 - 0.49 x10'3/uL 11/13/2019 9:32 PM CDT [facility] 11/13/2019 9:02 PM CDT us Vinita Hand TRANSMITTER TESTER LABORATORY Final Result [facility] [address] [place] [address], * ECG 12 lead (11/13/2019 8:53 PM CDT) 11/13/2019 8:53 PM CDT Narrative [facility] ([facility]) RAD - 11/14/2019 8:07 AM CDT ?[place] Mckenna ? [address] [place] ? Test Date: ?2019-11-13 Pat Name: ? AMA LEO ?Department: ? Room: ? EXAM15 Gender: ? Male ? Payroll Master: ?? GDD : ?1985 ? Requested By: VINITA MAMTACATHERINE Order Number: [id number] ? Reading MD: ?? Vel Gan ? Measurements Intervals ?[place] ? Rate: ? 96 ? P: ?32 ID: ? [id number] ?QRS: ?0 QRSD: ? 87 ? T: ?29 QT: ? 346 ? QTc: ?438 ? Interpretive Statements SINUS RHYTHM Compared to ECG 10/11/2018 18:03:16 No significant changes Preliminary EKG interpretation by ED Physician No ischemic changes Cleveland Navarro M.D. CRITICAL ALERT ISSUED ON 11-13-2019 20:57:47 Procedure Note Vel Gan MD - 11/14/[address] [place] Test Date: 2019-11-13 Pat Name: AMA REHMAN Department: Room: [facility] Gender: Male Payroll Master: ALMITA : 1985 Requested By: VINITA HAND Order Number: [id number] Reading MD: Vel Gan Measurements Intervals [place] Rate: 96 P: 32 ID: [id number] QRS: 0 QRSD: 87 T: 29 QT: 346 QTc: 438 Interpretive Statements SINUS RHYTHM Compared to ECG 10/11/2018 18:03:16 No significant changes Preliminary EKG interpretation by ED Physician No ischemic changes Cleveland Navarro M.D. CRITICAL ALERT ISSUED ON 11-13-2019 20:57:47 Vinita Hand TRANSMITTER TESTER ECG ORDERABLES Final Result [facility] ([facility]) RAD * (ABNORMAL) POCT glucose (11/13/2019 5:43 PM CDT) GLUCOSE POC 163(H) 70 - 99 mg/dL 11/13/2019 5:50 PM CDT [facility] ORDERS INTERFACE 11/13/2019 5:43 PM CDT Attending Physician Emergency MD POCT ORDERABLES - DEVICE Final Result [facility] ORDERS INTERFACE US documented in this encounter Visit Diagnoses Diagnosis Medication refill- Primary Issue of repeat prescriptions Vomiting Vomiting alone documented in this encounter Administered Medications Inactive Administered Medications - up to 3 most recent administrations Medication Order MAR Action Action Date Dose Rate Site ondansetron (ZOFRAN) injection 4 mg 4 mg, Intravenous, Once, 1 dose, On Sat11/13/19 at 1800, IV push over 2-5 minutes. Given 11/13/2019 9:44 PM CDT 4 mg sodium chloride 0.9% bolus infusion SOLN 1,000 mL 1,000 mL, Intravenous, Administer over 15 Minutes, Once, 1 dose, On Sat11/13/19 at 1800 New Bag 11/13/2019 9:45 PM CDT 1,000 mLs documented in this encounter Active and Recently Administered Medications Times are shown in CDT. Scheduled Medication Order 11/12/2019 11/13/2019 11/14/2019 ondansetron (ZOFRAN) injection 4 mg (COMPLETED) 4 mg, Intravenous, Once, 1 dose, On Sat11/13/19 at 1800, IV push over 2-5 minutes. 2143 (Given - Provider: Carlos Alonso RN) sodium chloride 0.9% bolus infusion SOLN 1,000 mL (COMPLETED) 1,000 mL, Intravenous, Administer over 15 Minutes, Once, 1 dose, On Sat11/13/19 at 1800 2144 (New Bag - Provider: Allyn Alonso RN)232 (Infusion Stop Time - Provider: Allyn N Alonso, RN) documented in this encounter Care Teams Ingot Header Relationship Specialty Start Date End Date None, Provider, PCP - General 11/13/19 11/16/20 documented as of this encounter
--- OUTSIDE RECORDS SUMMARY | 2024-04-04 19:30 | XMS_ITS | Encounter Summary ---
Author Organization [facility] Address [facility]. [place], [place] [address] [place] [id number] Care Team Providers Care Animal Impersonator Name Role Phone Yobany Manzanares MD Primary Care Provider [phone] Reason for Referral * Imaging (Emergency) - Closed Specialty Diagnoses / Procedures Referred By Contac t Referred To Contact RADIOLOGY Procedures CT ABD+PEL W IV CON ONLY Carolee Martin BEDSPRING ASSEMBLER Phone: tel: fax: Referral ID Status Reason Start Date Expiration Date Visits Re quested Visits Authorized [id number] Closed 07/11/2018 08/11/2019 1 1 Reason for Visit * Reason Comments Chest Pain Encounter Details Date Type Department Care Team (Late st Contact Info) Description 07/11/2018 1:41 PM CDT - 07/11/2018 7:50 PM CDT Emergency [facility] [place] [address] Carolee Martin NP [address] [id number] Chest Pain Discharge Disposition: Home or Self Care [...] Sign Reading Time Taken Comments Blood Pressure 119/83 07/11/2018 7:31 PM CDT Pulse 100 07/11/2018 7:31 PM CDT Temperature 36.7 ??C (98.1 ??F) 07/11/2018 1:45 PM CD T Respiratory Rate 20 07/11/2018 7:31 PM CDT Oxygen Saturation 95% 07/11/2018 7:31 PM CDT Inhaled Oxygen Concentration - - Weight 155.2 kg (342 lb 2.5 oz) 07/11/2018 1:45 PM CDT Height 180.3 cm (5' 11 ) 07/11/2018 1:45 PM CDT Body Mass Index 47.72 07/11/2018 1:45 PM CDT documented in this encounter Discharge Instructions * Discharge Instructions* HOSEA Dasilva - 07/11/2018 6:16 PM CDT Take the time to review discharge instructions Do follow up with Dr Manzanares and schedule appointment with GI specialist to manage the Crohn's RETURN as needed. * Attachments The following attachments cannot be sent through Care Everywhere. * Acute Abdomen (Belly Pain) Discharge Instructions, Adult (Citizen Of [place]) * Nonalcoholic Fatty Liver Disease Discharge Instructions ([place]izen [place]) * Diabetes Diet (Citizen [place]) * Diabetes Type 2 Discharge Instructions ([place]izen [place]) documented in this encounter Medications at Time of Discharge metFORMIN 500 MG tablet Take 1 tablet (500 mg total) by mouth 2 (two) times daily with meals. 60 tablet 07/11/2018 dicyclomine 20 MG tablet Take 1 tablet (20 mg total) by mouth every 6 (six) hours. 120 tablet 07/11/2018 2 naproxen sodium 220 MG tablet Take 440 mg by mouth daily as needed (back pain). Takes most days per patient 2 ondansetron 4 MG disintegrating tablet Take 1 tablet (4 mg total) by mouth every 8 (eight) hours as needed for Nausea. 20 tablet 07/11/2018 2 documented as of this encounter ED Notes * Harpal Lilly RN - 07/11/2018 3:21 PM CDT Patient to CT on bed with armored transport service manager. * HOSEA Dasilva - 07/11/2018 2:54 PM CDT Emergency Department Note Chief Complaint Chief Complaint Patient presents with ??? Chest Pain History of Present Illness c/o pain in upper abdomen with vomiting and radiating into right side of chest this am when he wokeup , after working late last pm and vomited yellow bile. C/o general pain in abdomen, RUQ. Has a history of crohn's is not on meds for same, does not feel like crohns Does not have GI doctor after his insurance changed Just changed PCP to Dr Manzanares, has not seem him yet. Is out of bentyl for belly pain. Medical History ALLERGIES: Allergies Allergen Reactions ??? Morphine Other (see comment) Bradycardia. MEDICATIONS: Prior to Admission medications Medication Sig Start Date End Date Taking? Authorizing Provider dicyclomine 20 MG tablet Take 1 tablet (20 mg total) by mouth every 6 (six) hours. 07/11/18 Yes HOSEA Dasilva metFORMIN 500 MG tablet Take 1 tablet (500 mg total) by mouth 2 (two) times daily with meals. 07/11/18 Yes HOSEA Dasilva naproxen sodium 220 MG tablet Take 440 mg by mouth daily as needed (back pain). Takes most days perpatient Yes Doc Abstract ondansetron 4 MG disintegrating tablet Take 1 tablet (4 mg total) by mouth every 8 (eight) hours asneeded for Nausea. 07/11/18 Yes HOSEA Dasilva PAST MEDICAL HISTORY: Past Medical History: Diagnosis Date ??? Asthma ??? Depression ??? IBS (irritable bowel syndrome) ??? Ulcerative [...] for chest pain. Gastrointestinal: Positive for abdominal pain, diarrhea, nausea and vomiting. Negative for constipation. Genitourinary: Negative for difficulty urinating. Skin: Negative for rash. Neurological: Negative for light-headedness and headaches. Psychiatric/Behavioral: Negative for decreased concentration. Physical Exam Filed Vitals: 07/11/18 1658 07/11/18 1701 07/11/18 1731 07/11/18 1801 BP: (!) 143/92 136/90 115/83 Pulse: 97 94 92 Resp: 17 22 20 Temp: TempSrc: SpO2: 97% 94% 94% Weight: Height: Physical Exam Constitutional: He is [...] Bowel sounds are normal. There is tenderness. RUQ tenderness. Limited exam due to body habitus. No lesions on abdomen. Bowel sounds are present. Musculoskeletal: He exhibits no edema or tenderness. [...] or performed during the hospital encounter of 07/11/18 [address] [facility] [facility] Test Date: 2018-07-11 Pat Name: AMA REHMAN Department: Room: [id number] Gender: Male Seo Associate: ddb : 1985 Requested By: DICKSON RECIO Order Number: [id number] Reading MD: Measurements Intervals [place] Rate: 105 P: [place]: 0 QRS: 27 QRSD: 84 T: 29 QT: 341 QTc: 452 Interpretive Statements ATRIAL FLUTTER/TACHYCARDIA WITH RAPID VENTRICULAR RESPONSE ABNORMAL RHYTHM ECG No previous ECG available for comparison ECG [address] [facility] [address] Test Date: 2018-07-11 Pat Name: AMA REHMAN Department: Room: [id number] Gender: Male Seo Associate: mg : 1985 Requested By: CAROLEE MARTIN Order Number: [id number] Reading MD: Measurements Intervals [place] Rate: 101 P: 3 OH: 141 QRS: 40 QRSD: 87 T: 30 QT: 346 QTc: 449 Interpretive Statements SINUS TACHYCARDIA ABNORMAL RHYTHM ECG Compared to ECG 07/11/2018 13:44:50 Atrial flutter no longer present LABORATORY STUDIES: Results for orders placed or performed during the hospital encounter of 07/11/18 CBC W/DIFF AUTOMATED Result Value Ref Range WBC 6.9 4.5 - 11.0 x10'3/uL RBC 4.77 4.70 - 6.10 x10'6/uL HGB 13.7 (L) 14.0 - 18.0 G/DL HCT 40.5 (L) 43.0 - 54.0 % MCV 84.9 80.0 - 94.0 FL MCH 28.7 27.0 - 31.0 PG MCHC 33.8 32.0 - 36.0 G/DL RDW 11.8 11.5 - 14.5 % PLT 250 130 - 400 x10'3/uL MPV 10.2 9.3 - 12.2 FL DIFFERENTIAL TYPE AUTOMATED DIFFERENTIAL NEUTROPHILS 64.3 % LYMPHOCYTES 25.3 % MONOCYTES 7.4 % EOSINOPHILS 1.4 % BASOPHILS 0.6 % IMMATURE GRANS 1.0 (H) 0 % ABS. NEUTROPHILS TOTAL 4.45 1.80 - 7.70 x10'3/uL ABS. LYMPHOCYTES 1.75 1.00 - 4.80 x10'3/uL ABS. MONOCYTES 0.51 0.30 - 0.82 x10'3/uL ABS. EOSINOPHILS 0.10 0.04 - 0.54 x10'3/uL ABS. BASOPHILS 0.04 0.01 - 0.08 x10'3/uL ABS. IMMATURE GRANULOCYTES 0.07 (H) 0.00 - 0.03 x10'3/uL COMPREHENSIVE METABOLIC PANEL Result Value Ref Range GLUCOSE 380 (H) 70 - 99 MG/DL BUN 10 7 - 18 MG/DL CREATININE 1.27 0.7 - 1.3 MG/DL SODIUM 132 (L) 136 - 145 MMOL/L POTASSIUM 3.5 3.5 - 5.1 MMOL/L CHLORIDE 100 100 - 108 MMOL/L CO2 24.5 21 - 32 MMOL/L CALCIUM 8.6 8.5 - 10.1 MG/DL TOTAL BILIRUBIN 0.7 0.2 - 1.2 MG/DL TOTAL PROTEIN 7.9 6.4 - 8.2 G/DL ALBUMIN 4.0 3.4 - 5.0 G/DL AST 34 15 - 37 U/L ALT 66 (H) 16 - 60 U/L ALK PHOS 97 50 - 136 U/L ANION GAP 11.0 8 - 20 MMOL/L BUN CREATININE RATIO 7.9 6 - 26 A/G RATIO 1.0 1.0 - 2.0 RATIO eGFR Non-Afr. Amer. 75 (L) >90 ML/MIN/1.73 M2 eGFR Afr. Amer. 87 (L) >90 ML/MIN/1.73 M2 TROPONIN, QUANT Result Value Ref Range TROPONIN I <0.015 <0.045 ng/mL. TROPONIN, QUANT Result Value Ref Range TROPONIN I <0.015 <0.045 ng/mL. LIPASE Result Value Ref Range LIPASE 197 73 - 393 UNITS/L URINALYSIS, AUTO, COMPLETE Result Value Ref Range Specimen Type URINE CLEAN CATCH COLOR STRAW TRANSPARENCY CLEAR Specific [place] (U) 1.029 1.001 - 1.030 U PH 6.0 5.0 - 9.0 LEUKOCYTE ESTERASE NEGATIVE NEGATIVE NITRITES NEGATIVE NEGATIVE PROTEIN, URINE 30 (H) <30 MG/DL URINE GLUCOSE >500 (A) NEGATIVE MG/DL U KETONES NEGATIVE NEGATIVE MG/DL UROBILINOGEN NEGATIVE NEGATIVE MG/DL Urine Bilirubin NEGATIVE NEGATIVE MG/DL BLOOD NEGATIVE NEGATIVE CULTURE & SENSITIVITY INDICATED? CULTURE IS NOT INDICATED WBC/HPF <1 <6 /HPF RBC/HPF <1 <6 /HPF POCT KETONES Result Value Ref Range KETONES: 0.1 0.0 - 0.5 mmol/L IMAGING STUDIES CT ABD+PEL W IV CON ONLY Final Result by User, [id number] (07/11 1600) EXAM: CT ABD+PEL W CON DATE: 07/11/2018 COMPARISON: None INDICATION: Right upper quadrant pain with nausea and vomiting since noon today. TECHNIQUE: Postcontrast imaging with 110 cc intravenous Isovue 370 left antecubital fossa. FINDINGS: The lung bases are clear. Liver is mildly enlarged with a length of about 23 cm on the coronal images. Diffuse and rather marked fatty infiltration. The gallbladder is distended with no calcified stones, wall thickening or inflammatory changes. No bile duct dilation. Normal spleen size. Normal pancreas and adrenal glands. Normal enhancement of the kidneys and no urinary tract obstruction. Moderate stool volume. Normal appendix. There are some subtle hazy densities in the abdominal fat around the SMA and SMV. A few normal size lymph nodes are present. This is a very nonspecific finding which can be seen as normal variation or associated with inflammation, infection, or lymphoma. No retroperitoneal lymph node enlargement. No enlarged lymph nodes in the pelvis. Urinary bladder is rather distended but otherwise normal. Mild degenerative changes in the lumbar spine. IMPRESSION: 1. Enlarged liver with fatty infiltration. 2. Distended gallbladder. 3. Minimal hazy densities within a portion of the abdominal fat. A dose lowering technique was used for this procedure, which may include, but is not limited to, dose reduction technique, automated exposure control, iterative reconstruction, ALARA (As Low As Reasonably Achievable), or Image Gently techniques. Interpreted By: Guillermo Engel MD, 07/11/2018 3:51 PM XR CHEST PORTABLE Final Result by User, [id number] (07/11 1053) Date: 07/11/2018 2:15 PM Exam: XR CHEST PORTABLE Comparison: No comparisons. Technique: Single view chest. History: Midsternal chest pain. Findings: The cardiac silhouette and vascularity are normal. The lungs are clear without consolidation or pleural effusion. There is no pneumothorax. The osseous structures appear normal. Impression: No acute cardiopulmonary disease process. Course / Medical Decision Making ED Course as of Jul 11 1857SatJul 11, 2018 1459 GLUCOSE: (!) 380 [LM] 1719 U GLUCOSE: (!) >500 [LM] 1719 KETONES:: 0.1 [LM] 1719 TROPONIN I: <0.015 [LM] 181 Fatty liver, enlarge gall bladder without dilated duct or surrounding inflammation. Lfts are normal. Did discuss with patient. Pulse improved after 1 liter of NS. [LM] 181 Discussed results, new onset NIDDM and need for follow up. [LM] ED Course User Index [LM] Carolee Martin, APNP Medications aspirin chewable tablet 324 mg (324 mg Oral Not Given 07/11/18 1423) sodium chloride 0.9% bolus infusion SOLN 1,000 mL (1,000 mLs Intravenous New Bag 07/11/18 155) HYDROmorphone (DILAUDID) injection 1 mg (1 mg Intravenous Given 07/11/18 1557) ondansetron (ZOFRAN) injection 4 mg (4 mg Intravenous Given 07/11/18 1557) iopamidol (ISOVUE-370) 76 % injection 100 mL (100 mLs Intravenous Given 07/11/18 1535) ondansetron (ZOFRAN) injection 4 mg (4 mg Intravenous Given 07/11/18 1845) Clinical Impression Right upper quadrant abdominal pain (Primary) Fatty liver Diabetes (CMS/HCC) Current Discharge Medication List START taking these medications Details dicyclomine 20 MG tablet Take 1 tablet (20 mg total) by mouth every 6 (six) hours. Qty: 120 tablet, Refills: 0 Class: Eprescribe Pharmacy: [facility]/pharmacy #[id number] [place], [place] - [address] [facility] (Ph #: [phone]) metFORMIN 500 MG tablet Take 1 tablet (500 mg total) by mouth 2 (two) times daily with meals. Qty: 60 tablet, Refills: 0 Class: Eprescribe Pharmacy: [facility]/pharmacy #[id number] - [facility], [place] - [address] [facility] (Ph #: [phone]) ondansetron 4 MG disintegrating tablet Take 1 tablet (4 mg total) by mouth every 8 (eight) hours asneeded for Nausea. Qty: 20 tablet, Refills: 0 Class: Eprescribe Pharmacy: [facility]/pharmacy #[id number] - [place], [place] - [address] [facility] ( #: [phone]) Disposition: Discharge Follow-Up: Yobany Manzanares MD [address] [facility] [address] [facility] [address] Schedule an appointment as soon as possible for a visit Yobani Layne MD [address] [facility] [address] [facility] [address] Schedule an appointment as soon as possible for a visit GI specialist HOSEA DASILVA 07/11/2018 HOSEA Dasilva 07/11/18 8238 Cosigned by Dickson Recio MD at 07/12/2018 7:13 AM CDT * Harpal Lilly RN - 07/11/2018 1:45 PM CDT Patient arrived by EMS from home, reporting chest pain with respiration and right upper quadrant abdominal pain, nausea and vomiting, starting around noon today. Patient also reports diarrhea for 48 hours. Patient was given 324 aspirin and 4 mg zofran IV. Patient has history of IBS, asthma, and colitis. * Lata Domínguez RN - 07/11/2018 1:41 PM CDT Bed: 13 Expected date: 07/11/18 Expected time: 1:37 PM Means of arrival: Comments: 4C68- room 13 documented in this encounter Plan of Treatment Not on file documented as of this encounter Procedures Procedure Name Priority Date/Time Associated Diagnosis Comments POCT KETONES Routine 07/11/2018 4:52 PM CDT URINALYSIS, AUTO, COMPLETE STAT 07/11/2018 4:47 PM CDT TROPONIN, QUANT STAT 07/11/2018 4:[address] ABD+PEL W CON STAT 07/11/2018 3:35 PM CDT ECG 12-LEAD STAT 07/11/2018 2:45 PM CDT XR CHEST PORTABLE STAT 07/11/2018 2:1 5 PM CDT COMPREHENSIVE METABOLIC PANEL STAT 07/11/2018 1:55 PM CDT CBC W/DIFF AUTOMATED STAT 07/11/2018 1:55 PM CDT TROPONIN, QUANT STAT 07/11/2018 1:55 PM CDT LIPASE STAT 07/11/2018 1:55 PM CDT ECG 12-LEAD STAT 07/11/2018 1:44 PM CDT documented in this encounter Results * POCT KETONES (07/11/2018 4:52 PM CDT) [facility] KETONES S/P/B 0.1 0.0 - 0.5 mmol/L 07/11/2018 4:54 PM CDT [facility] ORDERS INTERFACE 07/11/2018 4:52 PM CDT us Carolee Martin NP POINT OF CARE TEST ORDERABLES Final Result [facility] ORDERS INTERFACE US * (ABNORMAL) URINALYSIS, AUTO, COMPLETE (07/11/2018 4:47 PM CDT) Pathologist [facility] SPECIMEN TYPE URINE CLEAN CATCH 07/11/2018 4:48 PM CDT [facility] COLOR (U) STRAW 07/11/2018 5:18 PM CDT [facility] TRANSPARENCY CLEAR 07/11/2018 5:18 PM CDT [facility] SPECIFIC GRAVITY (U) 1.029 1.001 - 1.030 07/11/2018 5:18 PM CDT [facility] U PH 6.0 5.0 - 9.0 07/11/2018 5:18 PM CDT [facility] LEUKOCYTES (U) NEGATIVE NEGATIVE 07/11/2018 5:18 PM CDT [facility] NITRITES NEGATIVE NEGATIVE 07/11/2018 5:18 PM CDT [facility] PROTEIN (U) 30(H) <30 MG/DL 07/11/2018 5:18 PM CDT [facility] URINE GLUCOSE >500(A) NEGATIVE MG/DL 07/11/2018 5:18 PM CDT [facility] KETONES MG/DL (U) NEGATIVE NEGATIVE MG/DL 07/11/2018 5:18 PM CDT [facility] UROBILINOGEN NEGATIVE NEGATIVE MG/DL 07/11/2018 5:18 PM CDT [facility] BILIRUBIN (U) NEGATIVE NEGATIVE MG/DL 07/11/2018 5:18 PM CDT [facility] BLOOD (U) NEGATIVE NEGATIVE 07/11/2018 5:18 PM T [facility] CULTURE & SENSITIVITY INDICATED? CULTURE IS NOT INDICATED 07/11/2018 5:18 PM CDT [facility] WBC/HPF <1 <6 /HPF 07/11/2018 5:18 PM CDT [facility] RBC/HPF <1 <6 /HPF 07/11/2018 5:18 PM CDT [facility] URINE SPECIMEN OBTAINED BY CLEAN CATCH PROCEDURE / Unknown 07/11/2018 4:47 PM CDT Carolee Martin BEDSPRING ASSEMBLER URINE ORDERABLES Final Result Performing Organization Address City/[facility]/ZIP Co de Phone Number [facility] [address] [place] [address], * TROPONIN, QUANT (07/11/2018 4:35 PM CDT) TROPONIN I <0.015 <0.045 ng/mL. 07/11/2018 5:10 PM CDT [facility] Comment: HIGH DOSES OF BIOTIN MAY INTERFERE WITH THIS TEST RESULT. CORRELATION TO CLINICAL HISTORY AND PRESENTATION RECOMMENDED. 07/11/2018 4:35 PM CDT Dickson Recio MD LABORATORY Final Result Performing Organization Address [facility] Co de Phone Number [facility] [address] [place] [address], * CT ABD+PEL W IV CON ONLY (07/11/2018 3:35 PM CDT) Anatomical Region Laterality Modality Abdomen Computed Tomogra phy 07/11/2018 3:51 PM CDT Narrative 07/11/2018 3:59 PM CDT EXAM: CT ABD+PEL W CON DATE: 07/11/2018 COMPARISON: None INDICATION: Right upper quadrant pain with nausea and vomiting since noon today. TECHNIQUE: Postcontrast imaging with 110 cc intravenous Isovue 370 left antecubital fossa. FINDINGS: The lung bases are clear. ??Liver is mildly enlarged with a length of about 23 cm on the coronal images. ??Diffuse and rather marked fatty infiltration. ??The gallbladder is distended with no calcified stones, wall thickening or inflammatory changes. ??No bile duct dilation. Normal spleen size. ??Normal pancreas and adrenal glands. ??Normal enhancement of the kidneys and no urinary tract obstruction. ??Moderate stool volume. ??Normal appendix. ??There are some subtle hazy densities in the abdominal fat around the SMA and SMV. ??A few normal size lymph nodes are present. ??This is a very nonspecific finding which can be seen as normal variation or associated with inflammation, infection, or lymphoma. ??No retroperitoneal lymph node enlargement. ??No enlarged lymph nodes in the pelvis. ??Urinary bladder is rather distended but otherwise normal. ??Mild degenerative changes in the lumbar spine. IMPRESSION: 1. ??Enlarged liver with fatty infiltration. 2. ??Distended gallbladder. 3. ??Minimal hazy densities within a portion of the abdominal fat. A dose lowering technique was used for this procedure, which may include, but is not limited to, dose reduction technique, automated exposure control, iterative reconstruction, ALARA (As Low As Reasonably Achievable), or Image Gently techniques. Interpreted By: Guillermo Engel MD, 07/11/2018 3:51 PM Procedure Note Guillermo Engel MD - 07/11/2018 EXAM: CT ABD+PEL W CON DATE: 07/11/2018 COMPARISON: None INDICATION: Right upper quadrant pain with nausea and vomiting since . TECHNIQUE: Postcontrast imaging with 110 cc intravenous Isovue 370 leftantecubital fossa. FINDINGS: The lung bases are clear. Liver is mildly enlarged with alength of about 23 cm on the coronal images. Diffuse and rather markedfatty infiltration. The gallbladder is distended with no calcifiedstones, wall thickening or inflammatory changes. No bile duct dilation. Normal spleen size. Normal pancreas and adrenal glands. Normalenhancement of the kidneys and no urinary tract obstruction. Moderatestool volume. Normal appendix. There are some subtle hazy densities inthe abdominal fat around the SMA and SMV. A few normal size lymph nodesare present. This is a very nonspecific finding which can be seen asnormal variation or associated with inflammation, infection, or lymphoma.No retroperitoneal lymph node enlargement. No enlarged lymph nodes in thepelvis. Urinary bladder is rather distended but otherwise normal. Milddegenerative changes in the lumbar spine. IMPRESSION: 1. Enlarged liver with fatty infiltration. 2. Distended gallbladder. 3. Minimal hazy densities within a portion of the abdominal fat. A dose lowering technique was used for this procedure, which may include,but is not limited to, dose reduction technique, automated exposurecontrol, iterative reconstruction, ALARA (As Low As ReasonablyAchievable), or Image Gently techniques. Interpreted By: Guillermo Engel MD, 07/11/2018 3:51 PM us Carolee Martin BEDSPRING ASSEMBLER CT Final Result * ECG 12 lead (07/11/2018 2:45 PM CDT) 07/11/2018 2:45 PM CDT Narrative [facility] - 07/13/2018 8:40 PM CDT ?[place] ? [address] [place] [place] ? Test Date: ?2018-07-11 Pat Name: ? AMA REHMAN ?Department: ? Room: ? [id number] Gender: ? Male ? Seo Associate: ?? mg : ?1985 ? Requested By: CAROLEE MARTIN Order Number: [id number] ? Reading : ?? Felix Camilo ? Measurements Intervals ?[place] ? Rate: ? 101 ?P: ?3 [place]: ? 141 ?QRS: ?40 QRSD: ? 87 ? T: ?30 QT: ? 346 ? QTc: ?449 ? Interpretive Statements SINUS TACHYCARDIA ABNORMAL RHYTHM ECG Procedure Note Felix Camilo MD - 07/13/2018 [facility] [address] [facility] Test Date: 2018-07-11 Pat Name: AMA REHMAN Department: Room: [id number] Gender: Male Seo Associate: mg : 1985 Requested By: CAROLEE MARTIN Order Number: [id number] Berenice MD: Felix Camilo Measurements Intervals [place] Rate: 101 P: 3 [place]: 141 QRS: 40 QRSD: 87 T: 30 QT: 346 QTc: 449 Interpretive Statements SINUS TACHYCARDIA ABNORMAL RHYTHM ECG Carolee Martin BEDSPRING ASSEMBLER ECG ORDERABLES Final Result [facility] * XR CHEST PORTABLE (07/11/2018 2:15 PM CDT) Anatomical Region Laterality Modality Chest Radiographic Britt ging 07/11/2018 2:38 PM CDT Impressions 07/11/2018 2:38 PM CDT Impression: No acute cardiopulmonary disease process. Narrative 07/11/2018 2:38 PM CDT Date: 07/11/2018 2:15 PM Exam: XR CHEST PORTABLE Comparison: No comparisons. Technique: Single view chest. History: Midsternal chest pain. Findings: The cardiac silhouette and vascularity are normal. The lungs are clear without consolidation or pleural effusion. There is no pneumothorax. The osseous structures appear normal. Procedure Note Indra Whiting MD - 07/11/2018 Date: 07/11/2018 2:15 PM Exam: XR CHEST PORTABLE Comparison: No comparisons. Technique: Single view chest. History: Midsternal chest pain. Findings: The cardiac silhouette and vascularity are normal. The lungsare clear without consolidation or pleural effusion. There is nopneumothorax. The osseous structures appear normal. Impression: No acute cardiopulmonary disease process. Dickson Recio MD GENERAL IMAGING Final Result * LIPASE (07/11/2018 1:55 PM CDT) LIPASE 197 73 - 393 UNITS/L 07/11/2018 2:55 PM CDT [facility] 07/11/2018 1:55 PM CDT Dickson Recio MD LABORATORY Final Result [facility] [address] [place] [address], * TROPONIN, QUANT (07/11/2018 1:55 PM CDT) TROPONIN I <0.015 <0.045 ng/mL. 07/11/2018 2:42 PM CDT [facility] Comment: HIGH DOSES OF BIOTIN MAY INTERFERE WITH THIS TEST RESULT. CORRELATION TO CLINICAL HISTORY AND PRESENTATION RECOMMENDED. 07/11/2018 1:55 PM CDT Dickson Recio MD LABORATORY Final Result Performing Organization Address [facility] Co de Phone Number [facility] [address] [place] [address], * (ABNORMAL) COMPREHENSIVE METABOLIC PANEL (07/11/2018 1:55 PM CDT) GLUCOSE 380(H) 70 - 99 MG/DL 07/11/2018 2:42 PM CDT [facility] BUN 10 7 - 18 MG/DL 07/11/2018 2:42 PM CDT [facility] CREATININE S/P/B 1.27 0.7 - 1.3 MG/DL 07/11/2018 2:42 PM CDT [facility] SODIUM S/P/B 132(L) 136 - 145 MMOL/L 07/11/2018 2:42 PM CDT [facility] POTASSIUM S/P/B 3.5 3.5 - 5.1 MMOL/L 07/11/2018 2:42 PM CDT [facility] [facility] CHLORIDE S/P/B 100 100 - 108 MMOL/L 07/11/2018 2:42 PM CDT [facility] CO2 24.5 21 - 32 MMOL/L 07/11/2018 2:42 PM CDT [facility] CALCIUM S/P/B 8.6 8.5 - 10.1 MG/DL 07/11/2018 2:42 PM CDT [facility] BILIRUBIN TOTAL S/P/B 0.7 0.2 - 1.2 MG/DL 07/11/2018 2:42 PM T [facility] TOTAL PROTEIN S/P/B 7.9 6.4 - 8.2 G/DL 07/11/2018 2:42 PM T [facility] ALBUMIN S/P/B 4.0 3.4 - 5.0 G/DL 07/11/2018 2:42 PM T [facility] AST 34 15 - 37 U/L 07/11/2018 2:42 PM T [facility] ALT 66(H) 16 - 60 U/L 07/11/2018 2:42 PM T [facility] ALKALINE PHOSPHATASE S/P/B 97 50 - 136 U/L 07/11/2018 2:42 PM T [facility] ANION GAP 11.0 8 - 20 MMOL/L 07/11/2018 2:42 PM T [facility] BUN CREATININE RATIO 7.9 6 - 26 07/11/2018 2:42 PM T [facility] A/G RATIO 1.0 1.0 - 2.0 RATIO 07/11/2018 2:42 PM T [facility] EGFR NON-AFR. AMER. 75(L) >90 ML/MIN/1.7 3 M2 07/11/2018 2:42 PM T [facility] EGFR AFR. AMER. 87(L) >90 ML/MIN/1.7 3 M2 07/11/2018 2:42 PM T [facility] Comment: NOTE: eGFR is not calculated for patients <18 years of age. This is an estimated GFR (CKD EPI) and should not be used for calculating drug doses. 07/11/2018 1:55 PM CDT Dickson Recio MD LABORATORY Final Result [facility] [address] [place] [address], * (ABNORMAL) CBC W/DIFF AUTOMATED (07/11/2018 1:55 PM CDT) WBC 6.9 4.5 - 11.0 x10'3/uL 07/11/2018 2:15 PM CDT [facility] RBC 4.77 4.70 - 6.10 x10'6/uL 07/11/2018 2:15 PM CDT [facility] HGB 13.7(L) 14.0 - 18.0 G/DL 07/11/2018 2:15 PM CDT [facility] HCT 40.5(L) 43.0 - 54.0 % 07/11/2018 2:15 PM CDT [facility] MCV 84.9 80.0 - 94.0 FL 07/11/2018 2:15 PM CDT [facility] MCH 28.7 27.0 - 31.0 PG 07/11/2018 2:15 PM CDT [facility] MCHC 33.8 32.0 - 36.0 G/DL 07/11/2018 2:15 PM CDT [facility] RDW 11.8 11.5 - 14.5 % 07/11/2018 2:15 PM CDT [facility] PLT 250 130 - 400 x10'3/uL 07/11/2018 2:15 PM CDT [facility] MPV 10.2 9.3 - 12.2 FL 07/11/2018 2:15 PM CDT [facility] DIFFERENTIAL TYPE AUTOMATED DIFFERENTIAL 07/11/2018 2:15 PM CDT [facility] NEUTROPHILS % 64.3 % 07/11/2018 2:15 PM CDT [facility] LYMPHOCYTES % 25.3 % 07/11/2018 2:15 PM CDT [facility] MONOCYTES % 7.4 % 07/11/2018 2:15 PM CDT [facility] EOSINOPHILS 1.4 % 07/11/2018 2:15 PM CDT [facility] BASOPHILS 0.6 % 07/11/2018 2:15 PM CDT [facility] IMMATURE GRANS % 1.0(H) 0 % 07/12/19 19 2:15 PM CDT [facility] ABS. NEUTROPHILS TOTAL 4.45 1.80 - 7.70 x10'3/uL 07/11/2018 2:15 PM CDT [facility] ABS. LYMPHOCYTES 1.75 1.00 - 4.80 x10'3/uL 07/11/2018 2:15 PM CDT [facility] ABS. MONOCYTES 0.51 0.30 - 0.82 x10'3/uL 07/11/2018 2:15 PM CDT [facility] ABS. EOSINOPHILS 0.10 0.04 - 0.54 x10'3/uL 07/11/2018 2:15 PM CDT [facility] ABS. BASOPHILS 0.04 0.01 - 0.08 x10'3/uL 07/11/2018 2:15 PM CDT [facility] ABS. IMMATURE GRANULOCYTES 0.07(H) 0.00 - 0.03 x10'3/uL 07/11/2018 2:15 PM CDT [facility] 07/11/2018 1:55 PM CDT Dickson Recio MD LABORATORY Final Result Performing Organization Address [facility]/State/ZIP Co de Phone Number [facility] [address] [place] [address], * ECG 12 lead (07/11/2018 1:44 PM CDT) 07/11/2018 1:44 PM CDT Narrative [facility] - 07/13/2018 8:40 PM CDT ?[place] ? [address] [facility] [place] [place] ? Test Date: ?2018-07-11 Pat Name: ? AMA REHMAN ?Department: ? Room: ? EXAM13 Gender: ? Male ? Seo Associate: ?? ddb : ?1985 ? Requested By: DICKSON RECIO Order Number: [id number] ? Reading MD: ?? Felix Camilo ? Measurements Intervals ?[place] ? Rate: ? 105 ?P: ? [place]: ? 0 ?QRS: ?27 QRSD: ? 84 ? T: ?29 QT: ? 341 ? QTc: ?452 ? Interpretive Statements Sinus Tachycardia ABNORMAL RHYTHM ECG No previous ECG available for comparison Procedure Note Felix Camilo MD - 07/13/2018 [facility] [place] [address] [facility] [place] Test Date: 2018-07-11 Pat Name: AMA REHMAN Department: Room: [facility] Gender: Male Seo Associate: ddb : 1985 Requested By: DICKSON RECIO Order Number: [id number] Berenice MD: Felix Camilo Measurements Intervals [place] Rate: 105 P: [place]: 0 QRS: 27 QRSD: 84 T: 29 QT: 341 QTc: 452 Interpretive Statements Sinus Tachycardia ABNORMAL RHYTHM ECG No previous ECG available for comparison us Dickson Recio MD ECG ORDERABLES Final Result [facility] documented in this encounter Visit Diagnoses Diagnosis Right upper quadrant abdominal pain- Primary Abdominal pain, right upper quadrant Fatty liver Other chronic nonalcoholic liver disease Diabetes (CMS/HCC HHS/HCC) documented in this encounter Administered Medications Inactive Administered Medications - up to 3 most recent administrations Medication Order MAR Action Action Date Dose Rate Site HYDROmorphone (DILAUDID) injection 1 mg 1 mg, Intravenous, Once, 1 dose, On Sat07/11/18 at 1515, Administer slowly over at least 2-3 minutes. Given 07/11/2018 3:57 PM CDT 1 mg iopamidol (ISOVUE-370) 76 % injection 100 mL 100 mL, Intravenous, IMG once as needed, Contrast, 1 dose, Starting on Sat07/11/18 at 1535, Until Sat07/11/18 at 1535 Given 07/11/2018 3:35 PM CDT 100 mLs Le ft Arm ondansetron (ZOFRAN) injection 4 mg 4 mg, Intravenous, Once, 1 dose, On Sat07/11/18 at 1515, IV push over 2-5 minutes. Given 07/11/2018 3:57 PM CDT 4 mg ondansetron (ZOFRAN) injection 4 mg 4 mg, Intravenous, Once, 1 dose, On Sat07/11/18 at 1845, IV push over 2-5 minutes. Given 07/11/2018 6:45 PM CDT 4 mg sodium chloride 0.9% bolus infusion SOLN 1,000 mL 1,000 mL, Intravenous, Administer over 15 Minutes, Once, 1 dose, On Sat07/11/18 at 1515 New Bag 07/11/2018 3:57 PM CDT 1,000 mLs documented in this encounter Active and Recently Administered Medications Times are shown in CDT. Scheduled Medication Order 07/09/2018 07/10/2018 07/11/2018 aspirin chewable tablet 324 mg 324 mg, Oral, Once, 1 dose, On Sat07/11/18 at 1400, If not given by EMS or taken immediately prior to arrival 1423 (Not Given - Pr ovider: Eliceo Marquez RN - Reason: Patient already took) HYDROmorphone (DILAUDID) injection 1 mg (COMPLETED) 1 mg, Intravenous, Once, 1 dose, On Sat07/11/18 at 1515, Administer slowly over at least 2-3 minutes. 1557 (Given - Provid er: Harpal Lilly RN) ondansetron (ZOFRAN) injection 4 mg (COMPLETED) 4 mg, Intravenous, Once, 1 dose, On Sat07/11/18 at 1515, IV push over 2-5 minutes. 1557 (Given - Provid er: Harpal Lilly RN) ondansetron (ZOFRAN) injection 4 mg (COMPLETED) 4 mg, Intravenous, Once, 1 dose, On Sat07/11/18 at 1845, IV push over 2-5 minutes. 1845 (Given - Provid er: Harpal Lilly RN) sodium chloride 0.9% bolus infusion SOLN 1,000 mL (COMPLETED) 1,000 mL, Intravenous, Administer over 15 Minutes, Once, 1 dose, On Sat07/11/18 at 1515 1557 (New Bag - Prov ider: Harpal Lilly RN)1945 (Infusion Stop Time - Provider: Nicole Williamson RN) PRN Medication Order 07/09/2018 07/10/2018 07/11/2018 iopamidol (ISOVUE-370) 76 % injection 100 mL (COMPLETED) 100 mL, Intravenous, IMG once as needed, Contrast, 1 dose, Starting on Sat07/11/18 at 1535, Until Sat07/11/18 at 1535 1535 (Given - Provid er: Starla Stephens, RTR) documented in this encounter Care Teams Animal Impersonator Relationship Specialty Start Date End Date Yobany Manzanares MD [address] [address] PCP - General INTERNAL MEDICINE 07/11/18 11/12/19 documented as of this encounter
--- OUTSIDE RECORDS SUMMARY | 2024-04-04 19:30 | XMS_ITS | Encounter Summary ---
Author Organization [facility] Address [facility] [place] [address] [place] [address] Care Team Providers Care Trucking Supervisor Name Role Phone Veronique Severino MD Primary Care Provider Unavailable Encounter Details Date Type Department Care Team (Late st Contact Info) Description 06/10/2009 Abstract [facility] [place] Diagnostic Imaging [address] [place] [address] Veronique Severino MD Social History Tobacco Use [...] on filedocumented in this encounter Care Teams Trucking Supervisor Relationship Specialty Start Date End Date Veronique Severino MD PCP - General 04/13/12 documented as of this encounter
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
--- OUTSIDE RECORDS SUMMARY | 2024-04-04 19:30 | XMS_ITS | Encounter Summary ---
Author Organization [facility] Address [address] [place] [address]. [place], [place] [id number] [place] [address] Care Team Providers Care Inspector Conveyor Line Name Role Phone Starla Parham MD Primary Care Provider [phone] Reason for Visit * Reason Comments Shortness Of Breath Encounter Details Date Type Department Care Team ([facility] st Contact Info) Description 10/17/2021 2:26 PM CDT - 10/17/2021 6:48 PM CDT Emergency [facility] [place] [address] Yobany Cid PA [address] [place] [address] Shortness Of Breath Discharge Disposition: Home or Self Care (Routine [...] suspected to have Coronavirus/COVID-19? No / Unsure 10/17/2021 1:04 PM CDT documented as of this encounter Last Filed Vital Signs Vital Sign Reading Time Taken Comments Blood Pressure 133/95 10/17/2021 6:40 PM CDT Pulse 107 10/17/2021 6:15 PM CDT Temperature 36.3 ??C (97.4 ??F) 10/17/2021 1:04 PM CD T Respiratory Rate 18 10/17/2021 6:15 PM CDT Oxygen Saturation 100% 10/17/2021 6:15 PM CDT Inhaled Oxygen Concentration - - Weight - - Height - - Body Mass Index - - documented in this encounter Discharge Instructions * Discharge Instructions* DIVYA Wellington - 10/17/2021 6:40 PM CDT Take medication as prescribed. Follow-up with your primary care provider in 5 to 7 days. Return emergency department symptoms worsen or new concerns. * Attachments The following attachments cannot be sent through Care Everywhere. * Atypical Pneumonia (Mycoplasma and Viral) Discharge Instructions (Fijian) documented in this encounter Medications at Time of Discharge albuterol sulfate HFA 108 (90 Base) MCG/ACT inhaler Inhale 2 puffs into the lungs every 6 (six) hours as needed for Wheezing. 8 g 10/17/2021 metFORMIN 500 MG tablet Take 1 tablet (500 mg total) by mouth 2 (two) times daily with meals. 60 tablet 07/11/2018 azithromycin (ZITHROMAX) 250 MG tablet Take 2 tablets by mouth on day one then 1 daily for four days. 6 tablet 10/17/2021 10/31/2021 benzonatate (TESSALON PERLES) 100 MG capsule Take 1 capsule (100 mg total) by mouth 3 (three) times daily as needed for Cough. 20 capsule 10/17/2021 10/24/2021 methylPREDNISolon e, MAHENDRA, 4 MG tablet 6 TABLETS ON DAY ONE, 5 TABLETS DAY TWO, 4 TABLETS DAY THREE, 3 TABLETS DAY FOUR, 2 TABLETS DAY FIVE, AND 1 TABLET DAY SIX 1 each 10/10/2021 10/31/2021 documented as of this encounter ED Notes * DIVYA Wellington - 10/17/2021 6:39 PM CDT ED NOTE Chief Complaint Chief Complaint Patient presents with ??? Shortness Of Breath History of Present Illness 35-year-old male presenting to emergency department for evaluation of shortness of breath over the past week. Associated with productive cough and chest tightness. Patient was seen at urgent care anddiagnosed with bronchitis and treated with Medrol Dosepak with no relief. Patient also reports having negative COVID test. Denies dyspnea at rest, hemoptysis, nausea or vomiting Medical History ALLERGIES: Allergies Allergen Reactions ??? Morphine Other (see comment) Bradycardia. MEDICATIONS: Prior to Admission medications Medication Sig Start Date End Date Taking? Authorizing Provider albuterol sulfate HFA 108 (90 Base) MCG/ACT inhaler Inhale 2 puffs into the lungs every 6 (six) hours as needed for Wheezing. 10/17/21 Yes DIVYA Wellington azithromycin (ZITHROMAX) 250 MG tablet Take 2 tablets by mouth on day one then 1 daily for four days. 10/17/21 Yes DIVYA Wellington benzonatate (TESSALON PERLES) 100 MG capsule Take 1 capsule (100 mg total) by mouth 3 (three) timesdaily as needed for Cough. 10/17/21 10/24/21 Yes DIVYA Wellington metFORMIN 500 MG tablet Take 1 tablet (500 mg total) by mouth 2 (two) times daily with meals. Patient taking differently: Take 1,000 mg by mouth 2 (two) times daily with meals. 07/11/18 Carolee Martin NP methylPREDNISolone, MAHENDRA, 4 MG tablet 6 TABLETS ON DAY ONE, 5 TABLETS DAY TWO, 4 TABLETS DAY THREE, 3 TABLETS DAY FOUR, 2 TABLETS DAY FIVE, AND 1 TABLET DAY SIX 10/10/21 DIVYA Blair PAST MEDICAL HISTORY: Past Medical History: Diagnosis Date ??? Asthma ??? Depression ??? Diabetes mellitus (CMS/HCC) ??? Hypertension ??? IBS (irritable bowel syndrome) ??? Ulcerative colitis (CMS/HCC) PAST SURGICAL HISTORY: Past Surgical History: Procedure Laterality Date ??? COLONOSCOPY FAMILY HISTORY: Family History Problem Relation Name Age of Onset ??? No Known Problems Mother ??? Cancer Father ??? Cancer Brother SOCIAL HISTORY: Social History Tobacco Use ??? Smoking status: Never Smoker ??? Smokeless tobacco: Never Used Vaping Use ??? Vaping Use: Never used Substance Use Topics ??? Alcohol use: Yes Comment: very rarely ??? Drug use: No Review of Systems Review of Systems Constitutional: Negative for activity change and appetite change. HENT: Negative for congestion, ear discharge, ear pain and sore throat. Respiratory: Positive for cough and chest tightness. Cardiovascular: Negative for chest pain. Gastrointestinal: Negative for abdominal pain, nausea and vomiting. Musculoskeletal: Negative for back pain and neck pain. Neurological: Negative for dizziness, syncope and light-headedness. Physical Exam Filed Vitals: 10/17/21 1304 10/17/21 1815 10/17/21 1840 BP: (!) 175/127 (!) 133/95 Pulse: 91 107 Resp: 20 18 Temp: 97.4 ??F (36.3 ??C) SpO2: 97% 100% Physical Exam Vitals and nursing note reviewed. Constitutional: General: He is not in acute distress. Appearance: He is well-developed. HENT: Head: Normocephalic. Nose: Nose normal. Eyes: Conjunctiva/sclera: Conjunctivae normal. Pulmonary: Effort: Pulmonary effort is normal. No respiratory distress. Breath sounds: Wheezing present. Musculoskeletal: Cervical back: Normal range of motion and neck supple. Skin: General: Skin is warm and dry. Neurological: Mental Status: He is alert and oriented to person, place, and time. Psychiatric: Behavior: Behavior normal. Thought Content: Thought content normal. Judgment: Judgment normal. 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1985 Requested By: MAIDA PATTERSON Order Number: [id number] Reading MD: Vel Gan Measurements Intervals [place] Rate: 92 P: 26 WV: 144 QRS: 38 QRSD: 84 T: 55 QT: 353 QTc: 438 Interpretive Statements SINUS RHYTHM Compared to ECG 11/13/2019 20:53:29 No significant changes Preliminary EKG interpretation by ED Physician No ischemic changes Carolee Martin APRN CRITICAL ALERT ISSUED ON 10-17-2021 14:53:50 LABORATORY STUDIES: Results for orders placed or performed during the hospital encounter of 10/17/21 CBC W/DIFF AUTOMATED Result Value Ref Range WBC 9.0 4.5 - 11.0 x10'3/uL RBC 4.99 4.70 - 6.10 x10'6/uL HGB 14.8 14.0 - 18.0 G/DL HCT 45.3 43.0 - 54.0 % MCV 90.8 80.0 - 94.0 FL MCH 29.7 27.0 - 31.0 PG MCHC 32.7 32.0 - 36.0 G/DL RDW 12.6 11.5 - 14.5 % PLT 294 130 - 400 x10'3/uL MPV 9.6 9.3 - 12.2 FL DIFFERENTIAL TYPE AUTOMATED DIFFERENTIAL NEUTROPHILS 51.2 % LYMPHOCYTES 37.5 % MONOCYTES 7.3 % EOSINOPHILS 1.4 % BASOPHILS 0.7 % IMMATURE GRANS 1.9 % ABS. NEUTROPHILS TOTAL 4.62 1.80 - 7.70 x10'3/uL ABS. LYMPHOCYTES 3.38 1.00 - 4.80 x10'3/uL ABS. MONOCYTES 0.66 0.30 - 0.82 x10'3/uL ABS. EOSINOPHILS 0.13 0.04 - 0.54 x10'3/uL ABS. BASOPHILS 0.06 0.01 - 0.08 x10'3/uL ABS. IMMATURE GRANULOCYTES 0.17 0.00 - 0.49 x10'3/uL COMPREHENSIVE METABOLIC PANEL Result Value Ref Range GLUCOSE 103 (H) 70 - 99 MG/DL BUN 14 7 - 18 MG/DL CREATININE S/P/B 1.00 0.7 - 1.3 MG/DL SODIUM 140 136 - 145 MMOL/L POTASSIUM 3.9 3.5 - 5.1 MMOL/L CHLORIDE S/P/B 106 100 - 108 MMOL/L CO2 25.6 21 - 32 MMOL/L CALCIUM 8.8 8.5 - 10.1 MG/DL BILIRUBIN TOTAL S/P/B 0.2 0.2 - 1.2 MG/DL TOTAL PROTEIN S/P/B 7.9 6.4 - 8.2 G/DL ALBUMIN S/P/B 4.1 3.4 - 5.0 G/DL AST 23 15 - 37 U/L ALT 47 16 - 60 U/L ALKALINE PHOSPHATASE S/P/B 59 50 - 136 U/L ANION GAP 8.4 5 - 15 MMOL/L BUN CREATININE RATIO 14.0 6 - 26 A/G RATIO 1.1 1.0 - 2.0 RATIO GFR ESTIMATE >90 >90 ML/MIN/1.73 M2 TROPONIN, QUANT Result Value Ref Range TROPONIN I HIGH SENSITIVITY 4 <79 ng/L D-DIMER, QUANTITATIVE Result Value Ref Range D-DIMER <215 0 - 500 ng[FEU]/mL IMAGING STUDIES XR CHEST PORTABLE Final Result by User, [id number] (10/17 1415) Examination: Chest x-ray 1 view Exam date/time: 10/17/2021 1:16 PM Reason For Exam: cp, sob, cough Comparison: October 10, 2021 Technique: Upright AP view of the chest demonstrated. Findings: Radiograph is underpenetrated. Cardiac silhouette is within normal limits. No consolidations within the lungs. No effusions. =====IMPRESSION:===== No acute cardiopulmonary abnormality. Ordered By: MAIDA PATTERSON Interpreted By: Giovani Buchanan MD, 10/17/2021 2:13 PM ED Course / Medical Decision Making Labs are grossly unremarkable including negative D-dimer. Chest x-ray with no acute abnormalities. Patient with no respiratory distress with some wheezing on exam. Given progressive worsening symptoms over the past week and no resolution with steroids will start on azithromycin difficult for for atypical pneumonia patient will follow up with primary care as needed Medications albuterol sulfate HFA 108 (90 Base) MCG/ACT inhaler 4 puff (4 puffs Inhalation Given 10/17/21 2548) Clinical Impression Atypical pneumonia (Primary) Discharge Medication List as of 10/17/2021 6:41 PM START taking these medications Details albuterol sulfate HFA 108 (90 Base) MCG/ACT inhaler Inhale 2 puffs into the lungs every 6 (six) hours as needed for Wheezing., Starting Sat10/17/2021, Eprescribe Class: Eprescribe Pharmacy: [facility]/pharmacy [address] [place] [address], [place] - [address] [facility] (Ph #: [phone]) azithromycin (ZITHROMAX) 250 MG tablet Take 2 tablets by mouth on day one then 1 daily for four days., Eprescribe Class: Eprescribe Pharmacy: [facility]/pharmacy [address] [place] [address], [place] - [address] [facility] (Ph #: [phone]) benzonatate (TESSALON PERLES) 100 MG capsule Take 1 capsule (100 mg total) by mouth 3 (three) timesdaily as needed for Cough., Starting Sat10/17/2021, Until Sat10/24/2021 at 2359, Eprescribe Class: Eprescribe Pharmacy: [facility]/pharmacy [address] [place] [address] - [address] [facility] (Ph #: [phone]) Disposition: Discharge Follow-Up: Starla Parham MD [address] [place] [phone] Schedule an appointment as soon as possible for a visit in 1 week As needed DIVYA Wellington 10/18/2021 DIVYA Wellington 10/18/21 0133 Cosigned by Charleen Reed MD at 10/18/2021 8:08 PM CDT * DIVYA Nichole - 10/17/2021 1:11 PM CDT [place], [place] EMERGENCY DEPARTMENT ENCOUNTER Medical Screening Examination 10/17/21 1:11 PM Chief Complaint : Shortness Of Breath HPI : Ama Rehman is a 35-year-old male who presents for cough, sob x a little over a week.Hx of recent diagnosis of bronchitis. Had steroids without relief. No fever. Had covid test last Saturday which was neg Vital Signs: Filed Vitals: 10/17/21 1304 BP: (!) 175/127 Pulse: 91 Resp: 20 Temp: 97.4 ??F (36.3 ??C) SpO2: 97% Physical exam: A brief physical exam was completed to facilitate/expedite patient care. Montero findings include: hypertensive. Diminished lung sounds Plan: Labs & Imaging was ordered to facilitate patient care. and EKG was ordered to faciliate patient care. DIVYA NICHOLE 10/17/2021 DIVYA Nichole 10/17/21 1313 Cosigned by Otilio Cook MD at 10/19/2021 5:59 AM CDT * Tc Sanz RN - 10/17/2021 1:02 PM CDT Pt states he has had sob x 1 week. Pt also reports he has had a productive cough as well. Pt statesif he takes a deep breath he has slight chest pain. Pt was seen last week at an urgent care and diagnosed with bronchitis. Pt states the sob is worse with exertion. Pt denies any n/v documented in this encounter Plan of Treatment Not on file documented as of this encounter Procedures Procedure Name Priority Date/Time Associated Diagnosis Comments COMPREHENSIVE METABOLIC PANEL STAT 10/17/2021 2:43 PM CDT D-DIMER, QUANTITATIVE STAT 10/17/2021 2:43 PM CDT CBC W/DIFF AUTOMATED STAT 10/17/2021 2:43 PM CDT TROPONIN, QUANT STAT 10/17/2021 2:43 PM CDT ECG 12-LEAD STAT 10/17/2021 2:32 PM CDT XR CHEST PORTABLE STAT 10/17/2021 2:1 1 PM CDT documented in this encounter Results * D-DIMER, QUANTITATIVE (10/17/2021 2:43 PM CDT) D-DIMER <215 0 - 500 ng{FEU}/mL 10/17/2021 3:42 PM CDT [facility] Comment: D-Dimer values less than or [...] outcomes and no additional false negative findings. 10/17/2021 2:43 PM CDT [facility] Final Result Performing Organization Address City/[facility]/ZIP Co de Phone Number [facility] [address] [place] [address], [place] [phone] * TROPONIN, QUANT (10/17/2021 2:43 PM CDT) Pathologist [facility] TROPONIN I HIGH SENSITIVITY 4 <79 ng/L 10/17/2021 3:48 PM CDT [facility] Comment: HIGH DOSES OF BIOTIN, TROPONIN-SPECIFIC AUTOANTIBODIES, AND ANTIBODY THERAPY CONTAINING HAMA MAY INTERFERE WITH THIS TEST RESULT. CORRELATION TO CLINICAL HISTORY AND PRESENTATION RECOMMENDED. 10/17/2021 2:43 PM CDT [facility] Final Result [facility] [address] [place] [address], [place] [phone] * (ABNORMAL) COMPREHENSIVE METABOLIC PANEL (10/17/2021 2:43 PM CDT) [facility] GLUCOSE 103(H) 70 - 99 MG/DL 10/17/2021 3:48 PM CDT [facility] BUN 14 7 - 18 MG/DL 10/17/2021 3:48 PM CDT [facility] CREATININE S/P/B 1.00 0.7 - 1.3 MG/DL 10/17/2021 3:48 PM CDT [facility] SODIUM S/P/B 140 136 - 145 MMOL/L 10/17/2021 3:48 PM CDT [facility] POTASSIUM S/P/B 3.9 3.5 - 5.1 MMOL/L 10/17/2021 3:48 PM CDT [facility] CHLORIDE S/P/B 106 100 - 108 MMOL/L 10/17/2021 3:48 PM CDT [facility] CO2 25.6 21 - 32 MMOL/L 10/17/2021 3:48 PM CDT [facility] CALCIUM S/P/B 8.8 8.5 - 10.1 MG/DL 10/17/2021 3:48 PM CDT [facility] BILIRUBIN TOTAL S/P/B 0.2 0.2 - 1.2 MG/DL 10/17/2021 3:48 PM CDT [facility] Comment: THIS ASSAY IS NOT RECOMMENDED FOR PATIENTS UNDERGOING TREATMENT WITH ELTROMBOPAG DUE TO THE POTENTIAL FOR FALSELY ELEVATED RESULTS. TOTAL PROTEIN S/P/B 7.9 6.4 - 8.2 G/DL 10/17/2021 3:48 PM CDT [facility] ALBUMIN S/P/B 4.1 3.4 - 5.0 G/DL 10/17/2021 3:48 PM CDT [facility] AST 23 15 - 37 U/L 10/17/2021 3:48 PM CDT [facility] ALT 47 16 - 60 U/L 10/17/2021 3:48 PM CDT [facility] ALKALINE PHOSPHATASE S/P/B 59 50 - 136 U/L 10/17/2021 3:48 PM CDT [facility] ANION GAP 8.4 5 - 15 MMOL/L 10/17/2021 3:48 PM CDT [facility] BUN CREATININE RATIO 14.0 6 - 26 10/17/2021 3:48 PM CDT [facility] A/G RATIO 1.1 1.0 - 2.0 RATIO 10/17/2021 3:48 PM CDT [facility] GFR ESTIMATE >90 >90 ML/MIN/1.7 3 M2 10/17/2021 3:48 PM CDT [facility] Comment: NOTE: eGFR is not calculated for patients <18 years of age. This is an estimated GFR calculation using the new CKD EPI creatinine equation without race and so does not require a correction factor for race. This estimated GFR should not be used for calculating drug doses. 10/17/2021 2:43 PM CDT [facility] Final Result [facility] [address] [place] [address], [place] [phone] * CBC W/DIFF AUTOMATED (10/17/2021 2:43 PM CDT) WBC 9.0 4.5 - 11.0 x10'3/uL 10/17/2021 3:19 PM CDT [facility] RBC 4.99 4.70 - 6.10 x10'6/uL 10/17/2021 3:19 PM CDT [facility] HGB 14.8 14.0 - 18.0 G/DL 10/17/2021 3:19 PM CDT [facility] HCT 45.3 43.0 - 54.0 % 10/17/2021 3:19 PM CDT [facility] MCV 90.8 80.0 - 94.0 FL 10/17/2021 3:19 PM CDT [facility] MCH 29.7 27.0 - 31.0 PG 10/17/2021 3:19 PM CDT [facility] MCHC 32.7 32.0 - 36.0 G/DL 10/17/2021 3:19 PM CDT [facility] RDW 12.6 11.5 - 14.5 % 10/17/2021 3:19 PM CDT [facility] PLT 294 130 - 400 x10'3/uL 10/17/2021 3:19 PM CDT [facility] MPV 9.6 9.3 - 12.2 FL 10/17/2021 3:19 PM CDT [facility] DIFFERENTIAL TYPE AUTOMATED DIFFERENTIAL 10/17/2021 3:19 PM CDT [facility] NEUTROPHILS % 51.2 % 10/17/2021 3:19 PM CDT [facility] LYMPHOCYTES % 37.5 % 10/17/2021 3:19 PM CDT [facility] MONOCYTES % 7.3 % 10/17/2021 3:19 PM CDT [facility] EOSINOPHILS 1.4 % 10/17/2021 3:19 PM CDT [facility] BASOPHILS 0.7 % 10/17/2021 3:19 PM CDT [facility] IMMATURE GRANS % 1.9 % 07/19/20 22 3:19 PM CDT [facility] ABS. NEUTROPHILS TOTAL 4.62 1.80 - 7.70 x10'3/uL 10/17/2021 3:19 PM CDT [facility] ABS. LYMPHOCYTES 3.38 1.00 - 4.80 x10'3/uL 10/17/2021 3:19 PM CDT [facility] ABS. MONOCYTES 0.66 0.30 - 0.82 x10'3/uL 10/17/2021 3:19 PM CDT [facility] ABS. EOSINOPHILS 0.13 0.04 - 0.54 x10'3/uL 10/17/2021 3:19 PM CDT [facility] ABS. BASOPHILS 0.06 0.01 - 0.08 x10'3/uL 10/17/2021 3:19 PM CDT [facility] ABS. IMMATURE GRANULOCYTES 0.17 0.00 - 0.49 x10'3/uL 10/17/2021 3:19 PM CDT [facility] 10/17/2021 2:43 PM CDT [facility] Final Result [facility] [address] [place] [address], * ECG 12 lead (10/17/2021 2:32 PM CDT) 10/17/2021 2:[address] [facility] - 10/17/2021 4:41 PM CDT ?[facility] ? [address], [place] ? Test Date: ?2021-10-17 Pat Name: ? AMABRITTANI REHMAN ?Department: ?? 41 ? Room: ? Gender: ? Male ? 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 Requested By: MAIDA PATTERSON Order Number: [id number] ? Reading MD: ?? Vel Malik ? Measurements Intervals ?[place] ? Rate: ? 92 ? P: ?26 WV: ? 144 ?QRS: ?38 QRSD: ? 84 ? T: ?55 QT: ? 353 ? QTc: ?438 ? Interpretive Statements SINUS RHYTHM Compared to ECG 11/13/2019 20:53:29 No significant changes Preliminary EKG interpretation by ED Physician No ischemic changes Carolee Martin APRN CRITICAL ALERT ISSUED ON 10-17-2021 14:53:50 Procedure Note Vel Gan MD - 10/17/[address] 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 RAD * XR CHEST PORTABLE (10/17/2021 2:11 PM CDT) Anatomical Region Laterality Modality Chest Radiographic Britt ging 10/17/2021 2:13 PM CDT Impressions 10/17/2021 2:14 PM CDT =====IMPRESSION:===== No acute cardiopulmonary abnormality. Ordered By: MAIDA PATTERSON Interpreted By: Giovani Buchanan MD, 10/17/2021 2:13 PM Narrative 10/17/2021 2:14 PM CDT Examination: Chest x-ray 1 view Exam date/time: 10/17/2021 1:16 PM Reason For Exam: ??cp, sob, cough ? Comparison: October 10, 2021 Technique: Upright AP view of the chest demonstrated. Findings: ??Radiograph is underpenetrated. Cardiac silhouette is within normal limits. No consolidations within the lungs. No effusions. Procedure Note Giovani Buchanan MD - 10/17/2021 Examination: Chest x-ray 1 view Exam date/time: 10/17/2021 1:16 PM Reason For Exam: cp, sob, cough Comparison: October 10, 2021 Technique: Upright AP view of the chest demonstrated. Findings: Radiograph is underpenetrated. Cardiac silhouette is withinnormal limits. No consolidations within the lungs. No effusions. =====IMPRESSION:===== No acute cardiopulmonary abnormality. Ordered By: MAIDA PATTERSON Interpreted By: Giovani Buchanan MD, 10/17/2021 2:13 PM [facility] Final Result documented in this encounter Visit Diagnoses Diagnosis Atypical pneumonia- Primary Pneumonia, organism unspecified documented in this encounter Administered Medications Inactive Administered Medications - up to 3 most recent administrations Medication Order MAR Action Action Date Dose Rate Site albuterol sulfate HFA 108 (90 Base) MCG/ACT inhaler 4 puff 4 puff, Inhalation, Once, 1 dose, On Sat10/17/21 at 1315 Given 10/17/2021 2:35 PM CDT 4 puffs documented in this encounter Active and Recently Administered Medications Times are shown in CDT. Scheduled Medication Order 10/15/2021 10/16/2021 10/17/2021 albuterol sulfate HFA 108 (90 Base) MCG/ACT inhaler 4 puff (COMPLETED) 4 puff, Inhalation, Once, 1 dose, On Sat10/17/21 at 1315 1435 (Given - Provid er: Livan Leahy, PACKING INSPECTOR) documented in this encounter Care Teams Inspector Conveyor Line Relationship Specialty Start Date End Date Starla Parham MD PCP - General FAMILY PRACTICE 11/17/20 documented as of this encounter
--- OUTSIDE RECORDS SUMMARY | 2024-04-04 19:30 | XMS_ITS | Encounter Summary ---
Author Organization [facility] Address [facility] [facility] [place] [address] [place] [address] Care Team Providers Care Producer Name Role Phone Veronique Severino MD Primary Care Provider Unavailable Encounter Details Date Type Department Care Team (Late st Contact Info) Description 04/13/2012 Emergency [facility] [place] [address] Raoul Aldridge MD [address] [place] [address] [place] [address] Social History Tobacco Use Types Packs/Day Years Used Date Smoking Tobacco: Never Assessed Sex and Gender Information Value Date Recorded Sex Assigned at Not on file Legal Sex Male 8:30 PM CDT Gender Identity Not on file Sexual Orientation Not on file documented as of this encounter Plan of Treatment Not on file documented as of this encounter Visit Diagnoses Diagnosis Low back pain Lumbago documented in this encounter Care Teams Producer Relationship Specialty Start Date End Date Veronique Severino MD PCP - General 04/13/12 documented as of this encounter
--- OUTSIDE RECORDS SUMMARY | 2024-04-04 19:30 | XMS_ITS | Encounter Summary ---
Author Organization [facility] Address [address] [place] [address]. [place], [place] [id number] [place] [id number] Care Team Providers Care Job Press Feeder Name Role Phone None, Provider Primary Care Provider Shireen good Encounter Details Date Type Department Care Team (Latest Contact Info) Description 11/13/2019 Travel Social History Tobacco Use Types Packs/Day [...] on filedocumented in this encounter Care Teams Job Press Feeder Relationship Specialty Start Date End Date None, Provider, PCP - General 11/13/19 11/16/20 documented as of this encounter
--- OUTSIDE RECORDS SUMMARY | 2024-04-04 19:30 | XMS_ITS | Encounter Summary ---
Author Organization [facility] Address [address] [place] [address]. [place], [place] [id number] [place] [address] Care Team Providers Care Family Program Specialist Name Role Phone Yobany Manzanares MD Primary Care Provider [phone] Encounter Details Date Type Department Care Team (Latest Contact Info) Description 06/30/2019 Travel Social History Tobacco Use Types Packs/Day [...] have Coronavirus / COVID-19? No / Unsure 06/30/2019 4:50 PM CDT documented as of this encounter Plan of Treatment Not on file documented as of this encounter Visit Diagnoses Not on filedocumented in this encounter Care Teams Family Program Specialist Relationship Specialty Start Date End Date Yobany Manzanares MD [address] [address] PCP - General INTERNAL MEDICINE 07/11/18 11/12/19 documented as of this encounter
--- OUTSIDE RECORDS SUMMARY | 2024-04-04 19:30 | XMS_ITS | Encounter Summary ---
Author Organization [facility] Address [address] [place] [address]. [place], [place] [address] [place] [address] Care Team Providers Care J2Ee Developer Name Role Phone Starla Parham MD Primary Care Provider [phone] Reason for Referral * Imaging (Emergency) - Closed Specialty Diagnoses / Procedures Referred By Donavon braswell Referred To Contact RADIOLOGY Diagnoses Unspecified injury of right shoulder and upper arm, initial encounter Procedures MRI SHOULDER RT WO Mireille Romero DO Phone: tel: fax: Referral ID Status Reason Start Date Expiration Date Visits Re quested Visits Authorized [id number] Closed 12/30/2020 01/30/2022 1 1 Reason for Visit * Imaging (Emergency) - Closed Specialty Diagnoses / Procedures Referred By Donavon braswell Referred To Contact RADIOLOGY Diagnoses Unspecified injury of right shoulder and upper arm, initial encounter Procedures MRI SHOULDER RT WO Mireille Romero DO Phone: tel: fax: Referral ID Status Reason Start Date Expiration Date Visits Re quested Visits Authorized [id number] Closed 12/30/2020 01/30/2022 1 1 Encounter Details Date Type Department Care Team (Latest Contact Info) Description 12/30/2020 5:42 PM CDT - 12/30/2020 11:59 PM CDT Hospital Encounter [facility] MRI [place] [address] Mireille Corona, [address] [place] [address] Discharge Disposition: Home or Self Care (Routine [...] 11/05/2020 2 HYDROcodone-acetamin ophen 5-325 MG tabletIndications:[place] Pain < 3 Day Supply Take 1 [...] Procedure Name Priority Date/Time Associated Diagnosis Comments MRI SHOULDER RT WO CON STAT 12/30/2020 7:07 PM CDT Unspecified injury of right shoulder and upper arm, initial encounter documented in this encounter Results * MRI SHOULDER RT WO CON (12/30/2020 7:07 PM CDT) Anatomical Region Laterality Modality Shoulder Magnetic Resonan ce 12/31/2020 1:55 PM CDT Impressions 12/31/2020 2:00 PM CDT IMPRESSION: 1. ?? No clear evidence of rotator cuff or labral tear. ??If there is strong clinical concern, consider MR arthrogram follow-up. 2. ??Findings concerning for cervical impingement including spurring and narrowing and mild bursitis. Referred By: MIREILLE CORONA Interpreted By: Sanuj Knight MD, 12/31/2020 1:55 PM Narrative 12/31/2020 2:00 PM CDT EXAMINATION: MRI RIGHT SHOULDER WITHOUT CONTRAST EXAM DATE: 12/30/2020 6:25 PM REASON FOR EXAM: Right shoulder pain and injury COMPARISON: None TECHNIQUE: Multisequence multiplanar imaging of the shoulder without intravenous contrast. FINDINGS: No evidence of rotator cuff or deltoid atrophy. No evidence of rotator cuff tear. No evidence of labral tear. Long head biceps anatomically positioned in the intertubercular groove. Acromioclavicular joint intact. ??There is capsular thickening superiorly which may relate to prior injury or repetitive stress. Subacromial spurring. ??Mild subacromial subdeltoid bursitis. No suspicious bone lesion or fracture. Procedure Note Sanju Knight MD - 12/31/2020 EXAMINATION: MRI RIGHT SHOULDER WITHOUT CONTRAST EXAM DATE: 12/30/2020 6:25 PM REASON FOR EXAM: Right shoulder pain and injury COMPARISON: None TECHNIQUE: Multisequence multiplanar imaging of the shoulder withoutintravenous contrast. FINDINGS: No evidence of rotator cuff or deltoid atrophy. No evidence of rotator cuff tear. No evidence of labral tear. Long head biceps anatomically positioned in the intertubercular groove. Acromioclavicular joint intact. There is capsular thickening superiorlywhich may relate to prior injury or repetitive stress. Subacromial spurring. Mild subacromial subdeltoid bursitis. No suspicious bone lesion or fracture. IMPRESSION: 1. No clear evidence of rotator cuff or labral tear. If there is strongclinical concern, consider MR arthrogram follow-up. 2. Findings concerning for cervical impingement including spurring andnarrowing and mild bursitis. Referred By: MIREILLE CORONA Interpreted By: Sanju Knight MD, 12/31/2020 1:55 PM us Mireille Corona DO MRI Final Resul t documented in this encounter Visit Diagnoses Diagnosis Unspecified injury of right shoulder and upper arm, initial encounter documented in this encounter Care Teams J2Ee Developer Relationship Specialty Start Date End Date Starla Parham MD PCP - General FAMILY PRACTICE 11/17/20 documented as of this encounter
--- OUTSIDE RECORDS SUMMARY | 2024-04-04 19:30 | XMS_ITS | Encounter Summary ---
Author Organization [facility] Address [address] [place] [address]. [place], [place] [id number] [place] [address] Care Team Providers Care Scenario Writer Name Role Phone Veronique Severino MD Primary Care Provider Unavailable Encounter Details Date Type Department Care Team (Late st Contact Info) Description 05/16/2011 Abstract [facility] CONVERSION [address] [place] [address] Becky Caicedo MD Social History Tobacco Use [...] as of this encounter Visit Diagnoses Diagnosis Other specified rehabilitation procedure documented in this encounter Care Teams Scenario Writer Relationship Specialty Start Date End Date Veronique Severino MD PCP - General 04/13/12 documented as of this encounter
--- OUTSIDE RECORDS SUMMARY | 2024-04-04 19:30 | XMS_ITS | Encounter Summary ---
Author Organization [facility] Address [address] [place] [address]. [place], [place] [address] [place] [address] Care Team Providers Care Family Resource Management Professor Name Role Phone Starla Parham MD Primary Care Provider [phone] Reason for Referral * Imaging (Routine) - Closed Specialty Diagnoses / Procedures Referred By Contac t Referred To Contact RADIOLOGY Diagnoses Disease of gallbladder Procedures NM HEPATOBILIARY SCAN W/GB EJECTION FRACTION Oscar Ann MD [address] [place] [address] Phone: tel: fax: Referral ID Status Reason Start Date Expiration Date Visits Re quested Visits Authorized [id number] Closed 11/29/2020 12/30/2021 1 1 Reason for Visit * Imaging (Routine) - Closed Specialty Diagnoses / Procedures Referred By Contac t Referred To Contact RADIOLOGY Diagnoses Disease of gallbladder Procedures NM HEPATOBILIARY SCAN W/GB EJECTION FRACTION Oscar Ann MD [address] [place] [address] Phone: tel: fax: Referral ID Status Reason Start Date Expiration Date Visits Re quested Visits Authorized [id number] Closed 11/29/2020 12/30/2021 1 1 Encounter Details Date Type Department Care Team (Latest Contact Info) Description 01/06/2021 8:00 AM CDT - 01/06/2021 11:59 PM CDT Hospital Encounter [facility] Nuclear Medicine [facility] [place] [address] Oscar Ann MD [address] [facility] [address] [place] [id number] Discharge Disposition: Home or Self Care (Routine [...] have Coronavirus / COVID-19? No / Unsure 01/06/2021 8:00 AM CDT documented as of this encounter [...] 11/05/2020 2 HYDROcodone-acetamin ophen 5-325 MG tabletIndications:Ac [place] Pain < 3 Day Supply Take 1 [...] Procedure Name Priority Date/Time Associated Diagnosis Comments NM HEPATOBILIARY SCAN W/GB EJECTION FRACTION Routine 01/06/2021 10:47 AM CDT Disease of gallbladder documented in this encounter Results * NM HEPATOBILIARY SCAN W/GB EJECTION FRACTION (01/06/2021 10:47 AM CDT) Anatomical Region Laterality Modality Abdomen Nuclear Medicine 01/06/2021 10:5 6 AM CDT Impressions 01/06/2021 10:58 AM CDT IMPRESSION: 1. ??Normal biliary imaging study. 2. ??Normal contractile response of the gallbladder to fatty meal challenge. ? Referred By: OSCAR ANN Interpreted By: Mikhail New MD, 01/06/2021 10:56 AM Narrative 01/06/2021 10:58 AM CDT Hepatobiliary Scintigraphy with Gallbladder Ejection Fraction Date of study: 01/06/2021. Indications: 35-year-old male with a history of intermittent abdominal pain, nausea, and diarrhea over the past 2 months. Radiopharmaceutical: 5.0 mCi Tc-99m mebrofenin IV and 8 oz Ensure Plus, p.o. Comparison: -Limited abdominal ultrasound dated 11/24/2020. -CT abdomen and pelvis with contrast dated 11/05/2020. Technique: Following intravenous administration of Tc-99m mebrofenin, sequential abdominal images were obtained through 60 minutes. ??In order to evaluate the contractile response of the gallbladder in response to cholecystokinin, 8 oz Ensure Plus was ingested approximately 60 minutes after the administration of the radiopharmaceutical. ??Sequential imaging was continued for 60 minutes after ingestion of Ensure Plus. Findings: There is prompt, uniform accumulation of tracer by the liver. ??There is normal filling of the intrahepatic ducts, common bile duct and gallbladder, and normal excretion of tracer into the duodenum. The post-fatty meal (Ensure Plus) images reveal normal contractile response of the gallbladder. ??The calculated gallbladder ejection fraction is 70% (normal greater than 33%). Procedure Note Mikhail New MD - 01/06/2021 Hepatobiliary Scintigraphy with Gallbladder Ejection Fraction Date of study: 01/06/2021. Indications: 35-year-old male with a history of intermittent abdominal pain, nausea,and diarrhea over the past 2 months. Radiopharmaceutical: 5.0 mCi Tc-99m mebrofenin IV and 8 oz Ensure Plus, p.o. Comparison: -Limited abdominal ultrasound dated 11/24/2020. -CT abdomen and pelvis with contrast dated 11/05/2020. Technique: Following intravenous administration of Tc-99m mebrofenin, sequentialabdominal images were obtained through 60 minutes. In order to evaluatethe contractile response of the gallbladder in response tocholecystokinin, 8 oz Ensure Plus was ingested approximately 60 minutesafter the administration of the radiopharmaceutical. Sequential imagingwas continued for 60 minutes after ingestion of Ensure Plus. Findings: There is prompt, uniform accumulation of tracer by the liver. There isnormal filling of the intrahepatic ducts, common bile duct andgallbladder, and normal excretion of tracer into the duodenum. The post-fatty meal (Ensure Plus) images reveal normal contractileresponse of the gallbladder. The calculated gallbladder ejection fractionis 70% (normal greater than 33%). IMPRESSION: 1. Normal biliary imaging study. 2. Normal contractile response of the gallbladder to fatty mealchallenge. Referred By: OSCAR ANN Interpreted By: Mikhail New MD, 01/06/2021 10:56 AM Oscar Ann MD NUC MED Final Result documented in this encounter Visit Diagnoses Diagnosis Disease of gallbladder Unspecified disorder of gallbladder documented in this encounter Administered Medications Inactive Administered Medications - up to 3 most recent administrations Medication Order MAR Action Action Date Dose Rate Site Generic Radiopharmaceutical 5 millicurie 5 millicurie, Intravenous, IMG once as needed, 5 mCi Tc99m Choletec, 1 dose, Starting on Sat01/06/21 at 1047, Until Sat01/06/21 at 1048 Given 01/06/2021 10:48 AM CDT 5 millicuries Left Arm documented in this encounter Care Teams Family Resource Management Professor Relationship Specialty Start Date End Date Starla Parham MD PCP - General FAMILY PRACTICE 11/17/20 documented as of this encounter
--- OUTSIDE RECORDS SUMMARY | 2024-04-04 19:30 | XMS_ITS | Encounter Summary ---
Author Organization [facility] Address [address] [place] [address]. [place], [place] [id number] [place] [address] Care Team Providers Care Display Carver Name Role Phone Starla Parham MD Primary Care Provider [phone] Encounter Details Date Type Department Care Team (Latest Contact Info) Description 01/10/2021 Scan HEALTH INFO SRVCS Scanned, Documents Social History Tobacco Use Types Packs/Day Years [...] on filedocumented in this encounter Care Teams Display Carver Relationship Specialty Start Date End Date Starla Parham MD PCP - General FAMILY PRACTICE 11/17/20 documented as of this encounter
--- OUTSIDE RECORDS SUMMARY | 2024-04-04 19:30 | XMS_ITS | Encounter Summary ---
Author Organization [facility] Address [address] [place] [address]. [place], [place] [address] [place] [address] Care Team Providers Care Morning News Producer Name Role Phone Starla Parham MD Primary Care Provider [phone] Encounter Details Date Type Department Care Team (Latest Contact Info) Description 10/17/2021 Travel Social History Tobacco Use Types Packs/Day [...] on filedocumented in this encounter Care Teams Morning News Producer Relationship Specialty Start Date End Date Starla Parham MD PCP - General FAMILY PRACTICE 11/17/20 documented as of this encounter
--- OUTSIDE RECORDS SUMMARY | 2024-04-04 19:30 | XMS_ITS | Encounter Summary ---
Author Organization [facility] Address [address] [place] [address]. [place], [place] [address] [place] [address] Care Team Providers Care Pbx Repairer Name Role Phone None, Provider Primary Care Provider Starla Grullon MD Primary Care Provider [phone] Reason for Visit * Reason Comments CT (SCAN) Lab (SCAN) Encounter Details Date Type Department Care Team ([facility] Contact Info) Description 11/05/2020 Scan HEALTH INFO SRVCS Scanned, Documents CT (SCAN); Lab (SCAN) Social History Tobacco Use Types Packs/Day Years [...] Name Priority Date/Time Associated Diagnosis Comments CT GENERIC 11/05/2020 OUTSIDE LAB (SCAN ORDER) 11/05/2020 OUTSIDE LAB (SCAN ORDER) 11/05/2020 documented in this encounter Results * OUTSIDE LAB (SCAN) (11/05/2020) 11/05/2020 Narrative 11/05/2020 Ordered by an unspecified provider. us Documents Scanned SCANNING Final Result * OUTSIDE LAB (SCAN) (11/05/2020) 11/05/2020 Narrative 11/05/2020 Ordered by an unspecified provider. us Documents Scanned SCANNING Final Result * CT GENERIC (11/05/2020) Anatomical Region Laterality Modality Other 11/05/2020 Narrative 11/05/2020 Ordered by an unspecified provider. us Documents Scanned SCANNING Final Result documented in this encounter Visit Diagnoses Not on filedocumented in this encounter Care Teams Pbx Repairer Relationship Specialty Start Date End Date None, Provider, PCP - General 11/13/19 11/16/20 Starla Parham MD PCP - General FAMILY PRACTICE 11/17/20 documented as of this encounter
--- OUTSIDE RECORDS SUMMARY | 2024-04-04 19:30 | XMS_ITS | Encounter Summary ---
Author Organization [facility] Address [address] [place] [address]. [place], [place] [id number] [place] [id number] Care Team Providers Care Residential Recycle Driver Name Role Phone None, Provider MD Primary Care Provider Unavaila ble Reason for Referral * Imaging (Emergency) - Closed Specialty Diagnoses / Procedures Referred By Donavon t Referred To Contact RADIOLOGY Procedures CT ABD+PEL W CON [facility] [place] [address] Phone: tel: fax: Referral ID Status Reason Start Date Expiration Date Visits Re quested Visits Authorized [id number] Closed 11/05/2020 12/06/2021 1 1 Reason for Visit * Reason Comments Abdominal Pain Encounter Details Date Type Department Care Team (Late st Contact Info) Description 11/05/2020 2:14 AM CDT - 11/05/2020 8:06 AM CDT Emergency [facility] Emergency Room [place], [place] [id number] Sylvia Lyman MD [address] [place], [place] [id number] Abdominal Pain Discharge Disposition: Home or Self Care [...] have Coronavirus / COVID-19? No / Unsure 11/04/2020 9:51 PM CDT documented as of this encounter Last Filed Vital Signs Vital Sign Reading Time Taken Comments Blood Pressure 117/86 11/05/2020 7:55 AM CDT Pulse 74 11/05/2020 7:55 AM CDT Temperature 36.4 ??C (97.6 ??F) 11/05/2020 7:55 AM CD T Respiratory Rate 18 11/05/2020 7:55 AM CDT Oxygen Saturation 99% 11/05/2020 7:55 AM CDT Inhaled Oxygen Concentration - - Weight 136.1 kg (300 lb) 11/04/2020 10:04 PM CDT Height 180.3 cm (5' 11 ) 11/04/2020 10:04 PM CDT Body Mass Index 41.84 11/04/2020 10:04 PM CDT documented in this encounter Discharge Instructions * Discharge Instructions* Sylvia Lyman MD - 11/05/2020 6:49 AM CDT Emergency Departments (ED) provide medical screening exams and initial stabilizing treatment of emergency medical conditions. Medicine is an inexact science and many conditions cannot be diagnosed orcompletely treated during a single ED visit. Your treating healthcare provider(s) today feel your condition has been stabilized so further care as an outpatient is reasonable. Emergency care does notsubstitute for complete, ongoing, or follow-up care by your primary care physician or science consultant. Your medication list was reviewed prior to treatment, [...] such as many narcotic drug combinations and hpre-lca-oxujqsr cold medicines. Dr. Lyman's Specific Instructions: After your visit your pain should be improving. If it is not starting to get better in the next 12 to 24 hours then you need to come back to the Emergency Room for a recheck. Return immediately for pain that is getting worse. Often we are unable to determine the cause of abdominal pain during your first visit. Sometimes your symptoms will go away in which case we don't need to do any additional evaluation. Other times your symptoms will change and these changes help us figure out why you are sick. Return to the Emergency Room for any new or changing symptoms. If you are improving in 1-2 days but not well yet then please follow up with your usual doctor for a recheck. Your feedback is important to us. Please fill out the survey you will get in the mail. We need yourinput to give you the best care possible! With your feedback we??ll know where we need to focus ourefforts to provide very good service to our patients! * Attachments The following attachments cannot be sent through Care Everywhere. * Severe Abdominal Pain Discharge Instructions, Adult (Uzbek) * Gallstones Discharge Instructions (Uzbek) documented in this encounter Medications at Time [...] 11/05/2020 2 HYDROcodone-acetamin ophen 5-325 MG tabletIndications:Ac [place] Pain < 3 Day Supply Take 1 [...] 11/05/2020 2 documented as of this encounter ED Notes * Elvia Holden RN - 11/05/2020 7:42 AM CDT Reprot to Ashley PETTY * Sylvia Lyman MD - 11/05/2020 6:40 AM CDT Chief Complaint Chief Complaint Patient presents with ??? Abdominal Pain History of Present Illness NOTE: This patient was cared for in the middle of an unusual surge in emergency department census directly related to the SARS-2/COVID-19 pandemic. This chart was completed after the date of care. Notes, personal recollection, and other medical documentation were used in its generation, but laboratory studies, radiographic imaging reports, and ECGs reported below may not have been available to meat the time of service. The patient is a very pleasant 35-year-old male examined in the emergency department in bed #3. He presents today complaining of right upper quadrant abdominal pain. The patient states that more thana year ago he had some difficulties with right upper quadrant pain and was supposed undergo a cholec ystectomy on a semielective basis, but due to the COVID-19 pandemic that surgery was never scheduled. 1 week ago, he began having pain in the right upper quadrant again. The pain is intermittent in nature. It is worsened after eating, palliated by nothing. Quality is described as right upper quadrant abdominal pain with radiation to the epigastrium. Severity is moderate. Time course is intermittent since onset. Medical History ALLERGIES: Allergies Allergen Reactions ??? Morphine Other (see comment) Bradycardia. MEDICATIONS: Prior to Admission medications Medication Sig Start Date End Date Taking? Authorizing Provider famotidine 20 MG tablet Take 1 tablet (20 mg total) by mouth 2 (two) times daily. 11/05/20 Yes Aidee Lyman MD HYDROcodone-acetaminophen 5-325 MG tablet Take 1 tablet by mouth every 6 (six) hours as needed for Pain. Indications: Acute Pain < 3 Day Supply 11/05/20 Yes Sylvia Lyman MD sucralfate 1 G tablet Take 1 tablet (1 g total) by mouth 4 (four) times daily. 11/05/20 Yes Sylvia Lyman MD albuterol sulfate HFA 108 (90 Base) MCG/ACT inhaler Inhale 2 puffs into the lungs every 6 (six) hours as needed for Wheezing or Shortness of breath. 06/30/19 Vinita Chi APRN cetirizine 10 MG tablet Take 10 mg by mouth daily. 10/05/19 Doc Abstract dicyclomine 10 MG capsule Take 1 capsule (10 mg total) by mouth 4 (four) times daily as needed. 10/11/18 Carolee Martin NP dicyclomine 20 MG tablet Take 1 tablet (20 mg total) by mouth every 6 (six) hours. 4/12/19 Carolee Martin NP insulin lispro prot & lispro (75-25) 100 UNIT/ML injection (PEN) 09/30/19 Doc Abstract metFORMIN 500 MG tablet Take 1 tablet [...] No Review of Systems Review of Systems REVIEW OF SYSTEMS: The patient denies fevers, chills, or sweats. Complains of nausea, denies vomiting, diarrhea, or constipation, complains of abdominal pain. Denies chest pain, shortness of breath, dyspnea on exertion, or palpitations. Denies headache, loss of consciousness, or seizures. Denies dysuria or hematuria. Ten systems reviewed and negative except as described above or in the HPI. Physical Exam Filed Vitals: 11/05/20 0530 11/05/20 0752 11/05/20 0753 11/05/20 0755 BP: 127/79 117/86 117/86 Pulse: 74 Resp: 18 18 Temp: 98.3 ??F (36.8 ??C) 97.6 ??F (36.4 ??C) 97.6 ??F (36.4 ??C) TempSrc: Oral Oral Oral SpO2: 97% 99% 99% Weight: Height: Physical Exam VITALS: Reviewed. Triage hypertension noted. GENERAL: The patient is a very pleasant 35-year-old male examined in the Emergency Department. Patient is in no acute distress at the time of my exam. HEENT: Normocephalic, atraumatic. Pupils are PERRL. Eyes focus and track. Sclerae are nonicteric and not injected. The face is symmetric, round, and fully expressive. Hearing is adequate to conversational voice. Ears are without discharge. Nares are grossly patent, and also without discharge. Mucous membranes are moist. NECK: No JVD, tracheal deviation, or subcutaneous emphysema is noted. CHEST: The thoracic cage is stable to palpation and nontender. LUNGS: Clear to auscultation bilaterally without wheezes, rales or rhonchi. Equal inspiratory and expiratory phases. HEART: Normal rate, regular rhythm. Normal S1 and S2. ABDOMEN: Mild tenderness in the right upper quadrant is noted. There is a slight inspiratory catch with deep palpation to the right upper quadrant (positive Chakraborty's sign). No rebound, guarding, or rigidity. Otherwise, the patient's abdomen is soft and nondistended. No masses, bruits or hepatosplenomegaly are noted. EXTREMITIES: No clubbing, cyanosis, edema, or evidence of trauma is noted. NEURO: No gross focal neuro deficits are appreciated. GCS = 15. No seizure activity is noted in theemergency department. PSYCHIATRIC: The patient's mood, affect and interaction are appropriate to setting. SKIN: Normal color, temperature, and turgor noted throughout. Diagnostic Studies / Procedures LABORATORY STUDIES: Results for orders placed or performed during the hospital encounter of 11/05/20 CBC W/DIFF AUTOMATED Result Value Ref Range WBC 8.4 4.5 - 11.0 x10'3/uL RBC 4.98 4.70 - 6.10 x10'6/uL HGB 14.1 14.0 - 18.0 G/DL HCT 45.2 43.0 - 54.0 % MCV 90.8 80.0 - 94.0 FL MCH 28.3 27.0 - 31.0 PG MCHC 31.2 (L) 32.0 - 36.0 G/DL RDW 12.6 11.5 - 14.5 % PLT 298 130 - 400 x10'3/uL MPV 9.5 9.3 - 12.2 FL DIFFERENTIAL TYPE AUTOMATED DIFFERENTIAL NEUTROPHILS 45.2 % LYMPHOCYTES 44.3 % MONOCYTES 7.2 % EOSINOPHILS 2.0 % BASOPHILS 0.5 % IMMATURE GRANS 0.8 % ABS. NEUTROPHILS TOTAL 3.79 1.80 - 7.70 x10'3/uL ABS. LYMPHOCYTES 3.71 1.00 - 4.80 x10'3/uL ABS. MONOCYTES 0.60 0.30 - 0.82 x10'3/uL ABS. EOSINOPHILS 0.17 0.04 - 0.54 x10'3/uL ABS. BASOPHILS 0.04 0.01 - 0.08 x10'3/uL ABS. IMMATURE GRANULOCYTES 0.07 0.00 - 0.49 x10'3/uL COMPREHENSIVE METABOLIC PANEL Result Value Ref Range GLUCOSE 91 70 - 99 MG/DL BUN 13 7 - 18 MG/DL CREATININE S/P/B 0.98 0.7 - 1.3 MG/DL SODIUM 139 136 - 145 MMOL/L POTASSIUM 4.0 3.5 - 5.1 MMOL/L CHLORIDE S/P/B 107 100 - 108 MMOL/L CO2 29.6 21 - 32 MMOL/L CALCIUM 9.5 8.5 - 10.1 MG/DL BILIRUBIN TOTAL S/P/B 0.2 0.2 - 1.2 MG/DL TOTAL PROTEIN S/P/B 8.1 6.4 - 8.2 G/DL ALBUMIN S/P/B 4.0 3.4 - 5.0 G/DL AST 23 15 - 37 U/L ALT 47 16 - 60 U/L ALKALINE PHOSPHATASE S/P/B 62 50 - 136 U/L ANION GAP 2.4 (L) 5 - 15 MMOL/L BUN CREATININE RATIO 13.3 6 - 26 A/G RATIO 1.0 1.0 - 2.0 RATIO eGFR Non-Afr. Amer. >90 >90 ML/MIN/1.73 M2 eGFR Afr. Amer. >90 >90 ML/MIN/1.73 M2 LIPASE Result Value Ref Range LIPASE 199 73 - 393 UNITS/L URINALYSIS, AUTO, COMPLETE Result Value Ref Range Specimen Type URINE CLEAN CATCH COLOR (U) LIGHT YELLOW TRANSPARENCY CLEAR Specific [place] (U) 1.025 1.001 - 1.030 U PH 5.5 5.0 - 9.0 LEUKOCYTE ESTERASE NEGATIVE NEGATIVE NITRITES NEGATIVE NEGATIVE PROTEIN (U) NEGATIVE <30 MG/DL URINE GLUCOSE NORMAL NORMAL MG/DL U KETONES NEGATIVE NEGATIVE MG/DL UROBILINOGEN NORMAL NORMAL MG/DL BILIRUBIN (U) NEGATIVE NEGATIVE MG/DL BLOOD NEGATIVE NEGATIVE CULTURE & SENSITIVITY INDICATED? CULTURE IS NOT INDICATED MUCUS RARE /LPF RBC/HPF 2 <6 /HPF IMAGING STUDIES CT ABD+PEL W CON Final Result by User, [email or web address] (11/05 600) EXAMINATION: CT ABDOMEN/PELVIS WITH CONTRAST INDICATION: RLQ abdominal pain COMPARISON: 10/11/2018 TECHNIQUE: Computed tomography of the abdomen, and pelvis was performed after administration of intravenous contrast, 120 mm of Isovue-370, without immediate complication, according to routine protocol. A dose lowering technique was used for this procedure, which may include, but is not limited to, dose reduction technique, automated exposure control, the use of iterative reconstruction, and ALARA (As Low As Reasonably Achievable) / Image Gently techniques. FINDINGS: Lower Chest: Lung bases are clear. No cardiomegaly or pericardial effusion. Upper abdominal organs: The liver, spleen, pancreas, gallbladder, biliary tree, adrenal glands, and kidneys are normal. Vascular: The abdominal aorta is normal in caliber. Lymph nodes: No retroperitoneal pelvic or inguinal lymphadenopathy. There is mild nonspecific stranding and prominent lymph nodes in the mid abdominal mesentery. Gastrointestinal: No bowel obstruction or bowel wall thickening. The appendix is normal. Miscellaneous: No free intraperitoneal air or ascites. Pelvis: No free pelvic fluid. The urinary bladder is normal. The prostate is unremarkable. MSK: No acute osseous abnormality or destructive bone lesions. IMPRESSION: 1. No findings to explain the patient's symptoms. 2. Stable area of mild nonspecific stranding in mildly prominent lymph nodes in the mid abdominal mesentery. This is unchanged dating back to June 2018 and can be seen with inflammation, infection, or less likely lymphoma. Referred By: SYLVIA LYMAN Interpreted By: Noe Jimenez MD, 11/05/2020 5:53 AM ED Course / Medical Decision Making I estimate there is LOW risk for ACUTE APPENDICITIS, BOWEL OBSTRUCTION, CHOLECYSTITIS, DIVERTICULITIS, INCARCERATED HERNIA, MESENTERIC ISCHEMIA, PANCREATITIS, or PERFORATED BOWEL or ULCER, thus I consider the discharge disposition reasonable. Also, there is no evidence or peritonitis, sepsis, or toxicity. We have discussed the diagnosis and risks, and we agree with discharging home to follow-up with their primary doctor. We also discussed returning to the Emergency Department immediately if newor worsening symptoms occur. We have discussed the symptoms which are most concerning (e.g., bloody stool, fever, changing or worsening pain, vomiting) that necessitate immediate return. The patient appears to be suffering from BILIARY COLIC. He is referred to general surgery. Clinical Impression Abdominal pain (Primary) Biliary colic Disposition: Discharge I dictated portions of this note using [employer] speech recognition software. Occasional wrong word or sound-alike substitutions may have occurred due to the inherent limitations of voice recognition software. Please read the chart carefully and recognize, using context, where the substitutions may have occurred. If there are any questions, please contact me via [employer] or other HIPAA compliant communication medium for clarification. Sylvia Lyman MD 11/05/201909 * Elvia Holden RN - 11/05/2020 6:38 AM CDT Pt to ER with RUQ pain. Reports he was supposed to have cholecystectomy but COVID happened . Pt previously medicated per MAR and CT obtained. Pt denies other concerns or complaints. Awaiting disposition form ER provider. Pt VSS. Pt is free of s/sx acute distress. Call light in reach * Eliceo Marquez RN - 11/04/2020 10:07 PM CDT Patient ambulatory to ED with c/o right sided abdominal pain. Patient states onset of symptoms began approximately 1 week ago. Patient reports pain, intermittent in nature but worsens after eating. Patient a/ox4 and in no respiratory distress. documented in this encounter Plan of Treatment Not on file documented as of this encounter Procedures Procedure Name Priority Date/Time Associated Diagnosis Comments CT ABD+PEL W CON STAT 11/05/2020 5:45 AM CDT URINALYSIS, AUTO, COMPLETE STAT 11/05/2020 2:29 AM CDT COMPREHENSIVE METABOLIC PANEL STAT 11/05/2020 2:25 AM CDT CBC W/DIFF AUTOMATED STAT 11/05/2020 2:25 AM CDT LIPASE STAT 11/05/2020 2:25 AM CDT documented in this encounter Results * CT ABD+PEL W CON (11/05/2020 5:45 AM CDT) Anatomical Region Laterality Modality Abdomen Computed Tomogra phy 11/05/2020 5:53 AM CDT Impressions 11/05/2020 6:00 AM CDT IMPRESSION: 1. No findings to explain the patient's symptoms. 2. Stable area of mild nonspecific stranding in mildly prominent lymph nodes in the mid abdominal mesentery. This is unchanged dating back to June 2018 and can be seen with inflammation, infection, or less likely lymphoma. Referred By: SYLVIA LYMAN Interpreted By: Noe Jimenez MD, 11/05/2020 5:53 AM Narrative 11/05/2020 6:00 AM CDT EXAMINATION: CT ABDOMEN/PELVIS WITH CONTRAST INDICATION: RLQ abdominal pain COMPARISON: 10/11/2018 TECHNIQUE: Computed tomography of the abdomen, and pelvis was performed after administration of intravenous contrast, 120 mm of Isovue-370, without immediate complication, according to routine protocol. A dose lowering technique was used for this procedure, which may include, but is not limited to, dose reduction technique, automated exposure control, the use of iterative reconstruction, and ALARA (As Low As Reasonably Achievable) / Image Gently techniques. FINDINGS: Lower Chest: Lung bases are clear. No cardiomegaly or pericardial effusion. Upper abdominal organs: The liver, spleen, pancreas, gallbladder, biliary tree, adrenal glands, and kidneys are normal. Vascular: The abdominal aorta is normal in caliber. Lymph nodes: No retroperitoneal pelvic or inguinal lymphadenopathy. There is mild nonspecific stranding and prominent lymph nodes in the mid abdominal mesentery. Gastrointestinal: No bowel obstruction or bowel wall thickening. The appendix is normal. Miscellaneous: No free intraperitoneal air or ascites. Pelvis: No free pelvic fluid. The urinary bladder is normal. The prostate is unremarkable. MSK: No acute osseous abnormality or destructive bone lesions. Procedure Note Noe Jimenez MD - 11/05/2020 EXAMINATION: CT ABDOMEN/PELVIS WITH CONTRAST INDICATION: RLQ abdominal pain COMPARISON: 10/11/2018 TECHNIQUE: Computed tomography of the abdomen, and pelvis was performedafter administration of intravenous contrast, 120 mm of Isovue-370,without immediate complication, according to routine protocol. A doselowering technique was used for this procedure, which may include, but isnot limited to, dose reduction technique, automated exposure control, theuse of iterative reconstruction, and ALARA (As Low As ReasonablyAchievable) / Image Gently techniques. FINDINGS: Lower Chest: Lung bases are clear. No cardiomegaly or pericardialeffusion. Upper abdominal organs: The liver, spleen, pancreas, gallbladder, biliarytree, adrenal glands, and kidneys are normal. Vascular: The abdominal aorta is normal in caliber. Lymph nodes: No retroperitoneal pelvic or inguinal lymphadenopathy. Thereis mild nonspecific stranding and prominent lymph nodes in the midabdominal mesentery. Gastrointestinal: No bowel obstruction or bowel wall thickening. Theappendix is normal. Miscellaneous: No free intraperitoneal air or ascites. Pelvis: No free pelvic fluid. The urinary bladder is normal. The prostateis unremarkable. MSK: No acute osseous abnormality or destructive bone lesions. IMPRESSION: 1. No findings to explain the patient's symptoms. 2. Stable area of mild nonspecific stranding in mildly prominent lymphnodes in the mid abdominal mesentery. This is unchanged dating back toJune 2018 and can be seen with inflammation, infection, or less likelylymphoma. Referred By: SYLVIA LYMAN Interpreted By: Noe Jimenez MD, 11/05/2020 5:53 AM Sylvia Lyman MD CT Final Result * URINALYSIS, AUTO, COMPLETE (11/05/2020 2:29 AM CDT) SPECIMEN TYPE URINE CLEAN CATCH 11/05/2020 2:29 AM CDT [facility] COLOR (U) LIGHT YELLOW 11/05/2020 2:45 AM T [facility] TRANSPARENCY CLEAR 11/05/2020 2:45 AM [facility] SPECIFIC GRAVITY (U) 1.025 1.001 - 1.030 11/05/2020 2:45 AM T [facility] U PH 5.5 5.0 - 9.0 11/05/2020 2:45 AM [facility] LEUKOCYTES (U) NEGATIVE NEGATIVE 11/05/2020 2:45 AM T [facility] NITRITES NEGATIVE NEGATIVE 11/05/2020 2:45 AM [facility] PROTEIN (U) NEGATIVE <30 MG/DL 11/05/2020 2:45 AM T [facility] URINE GLUCOSE NORMAL NORMAL MG/DL 11/05/2020 2:45 AM [facility] KETONES MG/DL (U) NEGATIVE NEGATIVE MG/DL 11/05/2020 2:45 AM [facility] UROBILINOGEN NORMAL NORMAL MG/DL 11/05/2020 2:45 AM [facility] BILIRUBIN (U) NEGATIVE NEGATIVE MG/DL 11/05/2020 2:45 AM [facility] BLOOD (U) NEGATIVE NEGATIVE 11/05/2020 2:45 AM [facility] CULTURE & SENSITIVITY INDICATED? CULTURE IS NOT INDICATED 11/05/2020 2:45 AM [facility] MUCUS RARE /LPF 11/05/2020 2:45 AM [facility] RBC/HPF 2 <6 /HPF 11/05/2020 2:45 AM [facility] URINE SPECIMEN OBTAINED BY CLEAN CATCH PROCEDURE / Unknown 11/05/2020 2:29 AM CDT us Sylvia Lyman MD URINE ORDERABLES Final Result Performing Organization Address City/[facility]/ZIP Co de Phone Number [facility] [address] [place] [address], [place] [phone] * LIPASE (11/05/2020 2:25 AM CDT) LIPASE 199 73 - 393 UNITS/L 11/05/2020 2:59 AM CDT [facility] 11/05/2020 2:25 AM CDT us Sylvia Lyman MD LABORATORY Final Result Performing Organization Address City/[facility] Co de Phone Number [facility] [address] [place] [address], [place] [phone] * (ABNORMAL) COMPREHENSIVE METABOLIC PANEL (11/05/2020 2:25 AM CDT) GLUCOSE 91 70 - 99 MG/DL 11/05/2020 2:59 AM CDT [facility] BUN 13 7 - 18 MG/DL 11/05/2020 2:59 AM CDT [facility] CREATININE S/P/B 0.98 0.7 - 1.3 MG/DL 11/05/2020 2:59 AM CDT [facility] SODIUM S/P/B 139 136 - 145 MMOL/L 11/05/2020 2:59 AM CDT [facility] POTASSIUM S/P/B 4.0 3.5 - 5.1 MMOL/L 11/05/2020 2:59 AM CDT [facility] CHLORIDE S/P/B 107 100 - 108 MMOL/L 11/05/2020 2:59 AM CDT [facility] CO2 29.6 21 - 32 MMOL/L 11/05/2020 2:59 AM CDT [facility] CALCIUM S/P/B 9.5 8.5 - 10.1 MG/DL 11/05/2020 2:59 AM CDT [facility] BILIRUBIN TOTAL S/P/B 0.2 0.2 - 1.2 MG/DL 11/05/2020 2:59 AM CDT [facility] Comment: THIS ASSAY IS NOT RECOMMENDED FOR PATIENTS UNDERGOING TREATMENT WITH ELTROMBOPAG DUE TO THE POTENTIAL FOR FALSELY ELEVATED RESULTS. TOTAL PROTEIN S/P/B 8.1 6.4 - 8.2 G/DL 11/05/2020 2:59 AM CDT [facility] ALBUMIN S/P/B 4.0 3.4 - 5.0 G/DL 11/05/2020 2:59 AM CDT [facility] AST 23 15 - 37 U/L 11/05/2020 2:59 AM CDT [facility] ALT 47 16 - 60 U/L 11/05/2020 2:59 AM CDT [facility] ALKALINE PHOSPHATASE S/P/B 62 50 - 136 U/L 11/05/2020 2:59 AM T [facility] ANION GAP 2.4(L) 5 - 15 MMOL/L 11/05/2020 2:59 AM CDT [facility] BUN CREATININE RATIO 13.3 6 - 26 11/05/2020 2:59 AM CDT [facility] A/G RATIO 1.0 1.0 - 2.0 RATIO 11/05/2020 2:59 AM T [facility] EGFR NON-AFR. AMER. >90 >90 ML/MIN/1.7 3 M2 11/05/2020 2:59 AM CDT [facility] EGFR AFR. AMER. >90 >90 ML/MIN/1.7 3 M2 11/05/2020 2:59 AM CDT [facility] Comment: NOTE: eGFR is not calculated for patients <18 years of age. This is an estimated GFR (CKD EPI) and should not be used for calculating drug doses. 11/05/2020 2:25 AM CDT Sylvia Lyman MD LABORATORY Final Result [facility] [address] [place] [address], * (ABNORMAL) CBC W/DIFF AUTOMATED (11/05/2020 2:25 AM CDT) WBC 8.4 4.5 - 11.0 x10'3/uL 11/05/2020 2:45 AM CDT [facility] RBC 4.98 4.70 - 6.10 x10'6/uL 11/05/2020 2:45 AM CDT [facility] HGB 14.1 14.0 - 18.0 G/DL 11/05/2020 2:45 AM CDT [facility] HCT 45.2 43.0 - 54.0 % 11/05/2020 2:45 AM CDT [facility] MCV 90.8 80.0 - 94.0 FL 11/05/2020 2:45 AM CDT [facility] MCH 28.3 27.0 - 31.0 PG 11/05/2020 2:45 AM CDT [facility] MCHC 31.2(L) 32.0 - 36.0 G/DL 11/05/2020 2:45 AM CDT [facility] RDW 12.6 11.5 - 14.5 % 11/05/2020 2:45 AM CDT [facility] PLT 298 130 - 400 x10'3/uL 11/05/2020 2:45 AM CDT [facility] MPV 9.5 9.3 - 12.2 FL 11/05/2020 2:45 AM CDT [facility] DIFFERENTIAL TYPE AUTOMATED DIFFERENTIAL 11/05/2020 2:45 AM CDT [facility] NEUTROPHILS % 45.2 % 11/05/2020 2:45 AM CDT [facility] LYMPHOCYTES % 44.3 % 11/05/2020 2:45 AM CDT [facility] MONOCYTES % 7.2 % 11/05/2020 2:45 AM CDT [facility] EOSINOPHILS 2.0 % 11/05/2020 2:45 AM CDT [facility] BASOPHILS 0.5 % 11/05/2020 2:45 AM CDT [facility] IMMATURE GRANS % 0.8 % 11/06/19 2:45 AM CDT [facility] ABS. NEUTROPHILS TOTAL 3.79 1.80 - 7.70 x10'3/uL 11/05/2020 2:45 AM CDT [facility] ABS. LYMPHOCYTES 3.71 1.00 - 4.80 x10'3/uL 11/05/2020 2:45 AM CDT [facility] ABS. MONOCYTES 0.60 0.30 - 0.82 x10'3/uL 11/05/2020 2:45 AM CDT [facility] ABS. EOSINOPHILS 0.17 0.04 - 0.54 x10'3/uL 11/05/2020 2:45 AM CDT [facility] ABS. BASOPHILS 0.04 0.01 - 0.08 x10'3/uL 11/05/2020 2:45 AM CDT [facility] ABS. IMMATURE GRANULOCYTES 0.07 0.00 - 0.49 x10'3/uL 11/05/2020 2:45 AM CDT [facility] 11/05/2020 2:25 AM CDT Sylvia Lyman MD LABORATORY Final Result [facility] [address] [place] [address], [place] [phone] documented in this encounter Visit Diagnoses Diagnosis Abdominal pain- Primary Abdominal pain, unspecified site Biliary colic Calculus of gallbladder without mention of cholecystitis or obstruction documented in this encounter Administered Medications Inactive Administered Medications - up to 3 most recent administrations Medication Order MAR Action Action Date Dose Rate Site iopamidol (ISOVUE-370) 76 % injection 100 mL 100 mL, Intravenous, IMG once as needed, Contrast, 1 dose, Starting on 11/05/20 at 0545, Until 11/05/20 at 0545 Given 11/05/2020 5:45 AM CDT 100 mLs Right Arm ketorolac (TORADOL) injection 15 mg 15 mg, Intravenous, Once, 1 dose, On 11/05/20 at 0530, For IV administration, give over 15 seconds. Given 11/05/2020 6:00 AM CDT 15 mg ondansetron (ZOFRAN) injection 4 mg 4 mg, Intravenous, Once, 1 dose, On 11/05/20 at 0530, IV push over 2-5 minutes. Given 11/05/2020 5:27 AM CDT 4 mg documented in this encounter Active and Recently Administered Medications Times are shown in CDT. Scheduled Medication Order 11/03/2020 11/04/2020 11/05/2020 ketorolac (TORADOL) injection 15 mg (COMPLETED) 15 mg, Intravenous, Once, 1 dose, On 11/05/20 at 0530, For IV administration, give over 15 seconds. 0600 (Given - Provid er: Elvia Holden RN) ondansetron (ZOFRAN) injection 4 mg (COMPLETED) 4 mg, Intravenous, Once, 1 dose, On 11/05/20 at 0530, IV push over 2-5 minutes. 0527 (Given - Provid er: Elvia Holden, JOVANNY) PRN Medication Order 11/03/2020 11/04/2020 11/05/2020 iopamidol (ISOVUE-370) 76 % injection 100 mL (COMPLETED) 100 mL, Intravenous, IMG once as needed, Contrast, 1 dose, Starting on 11/05/20 at 0545, Until 11/05/20 at 0545 0545 (Given - Provid er: Areli Stratton RTR) documented in this encounter Care Teams Residential Recycle Driver Relationship Specialty Start Date End Date None, Provider, PCP - General 11/13/19 11/16/20 documented as of this encounter
--- OUTSIDE RECORDS SUMMARY | 2024-04-04 19:30 | XMS_ITS | Encounter Summary ---
Author Organization [facility] Address [address] [place] [address]. [place], [place] [address] [place] [address] Care Team Providers Care Stiff Straw Hat Washer Name Role Phone Starla Parham MD Primary Care Provider [phone] Encounter Details Date Type Department Care Team (Latest Contact Info) Description 10/10/2021 Travel Social History Tobacco Use Types Packs/Day [...] documented as of this encounter Care Teams Stiff Straw Hat Washer Relationship Specialty Start Date End Date Starla Parham MD PCP - General FAMILY PRACTICE 11/17/20 documented as of this encounter
--- OUTSIDE RECORDS SUMMARY | 2024-04-04 19:30 | XMS_ITS | Encounter Summary ---
Author Organization [facility] Address Critical access hospital[facility] [place] [address] [place] [address] Care Team Providers Care Site Technician Name Role Phone Veronique Severino MD Primary Care Provider Unavailable Encounter Details Date Type Department Care Team (Late st Contact Info) Description 07/05/2009 Abstract [facility] Diagnostic Imaging [address] [place] [address] Veronique Severino MD Social History Tobacco Use [...] on filedocumented in this encounter Care Teams Site Technician Relationship Specialty Start Date End Date Veronique Severino MD PCP - General 04/13/12 documented as of this encounter
--- OUTSIDE RECORDS SUMMARY | 2024-04-04 19:30 | XMS_ITS | Encounter Summary ---
Author Organization [facility] Address [address] [place] [address]. [place], [place] [address] [place] [address] Care Team Providers Care Lpc Name Role Phone Yobany Manzanares MD Primary Care Provider [phone] Reason for Visit * Reason Comments Shortness Of Breath Cough Encounter Details Date Type Department Care Team (Late st Contact Info) Description 06/30/2019 4:55 PM CDT - 06/30/2019 8:08 PM CDT Emergency [facility] [place] [address] Vinita Hand APRN Shortness Of Breath ; Cough Discharge Disposition: Home or Self Care [...] Sign Reading Time Taken Comments Blood Pressure 106/71 06/30/2019 6:47 PM CDT Pulse 83 06/30/2019 6:47 PM CDT Temperature 36.9 ??C (98.4 ??F) 06/30/2019 5:33 PM CD T Respiratory Rate 18 06/30/2019 6:47 PM CDT Oxygen Saturation 98% 06/30/2019 6:47 PM CDT Inhaled Oxygen Concentration - - Weight - - Height 180.3 cm (5' 11 ) 06/30/2019 4:52 PM CDT Body Mass Index - - documented in [...] of breath. 1 Inhaler 06/30/2019 2 dicyclomine 10 MG capsule Take 1 [...] 8 (eight) hours as needed for Nausea. 6 tablet 06/30/2019 0 ondansetron 4 MG disintegrating tablet Take 1 tablet (4 mg total) by mouth every 8 (eight) hours as needed for Nausea. 20 tablet 07/11/2018 2 documented as of this encounter ED Notes * Jose Mackey RN - 06/30/2019 8:07 PM CDT Provider discussed today's findings with the patient/family. The patient has been given informationregarding their treatment, follow up and concerning symptoms for which they should seek urgent or emergent attention. I have expressed the the importance of seeking attention should there be any new,or worsening symptoms or persistence of their condition. Patient verbalized understanding of the discharge instructions. * Vinita Hand APRN - 06/30/2019 5:47 PM CDT ED NOTE Chief Complaint Chief Complaint Patient presents with ??? Shortness Of Breath ??? Cough History of Present Illness Oscar Rehman is a 33 year old male who presents today c/o cough, SOB, fever, body aches, nausea, diarrhea x 3 days. Mr. Rehman states that he has a hx of asthma, T2DM, IBS, UC, and has been intubated for his asthma 5 yrs ago. He has been using his inhaler and nebs at home, but does not feel improved. Medical History ALLERGIES: Allergies Allergen Reactions ??? Morphine Other (see comment) Bradycardia. MEDICATIONS: Prior to Admission medications Medication Sig Start Date End Date Taking? Authorizing Provider albuterol sulfate HFA 108 (90 Base) MCG/ACT inhaler Inhale 2 puffs into the lungs every 6 (six) hours as needed for Wheezing or Shortness of breath. 06/30/19 Yes Vinita Hand APRN ondansetron 4 MG disintegrating tablet Take 1 tablet (4 mg total) by mouth every 8 (eight) hours asneeded for Nausea. 06/30/19 07/02/19 Yes Vinita Hand APRN dicyclomine 10 MG capsule [...] (two) times daily with meals. 07/11/18 Carolee K Veronica, VOICE COACH naproxen sodium 220 MG tablet Take 440 [...] Systems Review of Systems Constitutional: Positive for fever. HENT: Positive for sore throat. Eyes: Negative. Respiratory: Positive for cough and shortness of breath. Cardiovascular: Negative. Gastrointestinal: Positive for diarrhea, nausea and vomiting. Endocrine: Negative. Genitourinary: Negative. Musculoskeletal: Positive for myalgias. Skin: Negative. Allergic/Immunologic: Negative. Neurological: Positive for headaches. Hematological: Negative. Physical Exam Filed Vitals: 06/30/19 1733 06/30/19 1827 06/30/19 1835 06/30/19 1847 BP: 106/71 Pulse: 100 93 83 Resp: 18 21 18 Temp: 98.4 ??F (36.9 ??C) TempSrc: Oral SpO2: 95% 99% 98% Height: Physical Exam Constitutional: He is oriented to person, place, and time. He appears well- developed and well-nourished. Appears uncomfortable; obese HENT: Head: Normocephalic and atraumatic. Mouth/Throat: Oropharynx is clear and moist. Eyes: Conjunctivae are normal. Right eye exhibits no discharge. Left eye exhibits no discharge. Neck: Normal range of motion. Neck supple. Cardiovascular: Normal heart sounds. Tachycardia, rate over 100 (has been using albuterol inhalers and nebs) Pulmonary/Chest: Breath sounds normal. He has no wheezes. Abdominal: Soft. Bowel sounds are normal. Musculoskeletal: Normal range of motion. He exhibits no edema. Neurological: He is alert and oriented to person, place, and time. Skin: He is diaphoretic. Psychiatric: His behavior is normal. Nursing note and vitals reviewed. Diagnostic Studies / Procedures ELECTROCARDIOGRAMS: No results found for this visit on 06/30/19. LABORATORY STUDIES: Results for orders placed or performed during the hospital encounter of 06/30/19 CBC W/DIFF AUTOMATED Result Value Ref Range WBC 10.3 4.5 - 11.0 x10'3/uL RBC 5.40 4.70 - 6.10 x10'6/uL HGB 15.7 14.0 - 18.0 G/DL HCT 47.4 43.0 - 54.0 % MCV 87.8 80.0 - 94.0 FL MCH 29.1 27.0 - 31.0 PG MCHC 33.1 32.0 - 36.0 G/DL RDW 12.1 11.5 - 14.5 % PLT 313 130 - 400 x10'3/uL MPV 10.4 9.3 - 12.2 FL DIFFERENTIAL TYPE AUTOMATED DIFFERENTIAL NEUTROPHILS 54.4 % LYMPHOCYTES 34.7 % MONOCYTES 7.6 % EOSINOPHILS 1.3 % BASOPHILS 0.8 % IMMATURE GRANS 1.2 % ABS. NEUTROPHILS TOTAL 5.63 1.80 - 7.70 x10'3/uL ABS. LYMPHOCYTES 3.58 1.00 - 4.80 x10'3/uL ABS. MONOCYTES 0.78 0.30 - 0.82 x10'3/uL ABS. EOSINOPHILS 0.13 0.04 - 0.54 x10'3/uL ABS. BASOPHILS 0.08 0.01 - 0.08 x10'3/uL ABS. IMMATURE GRANULOCYTES 0.12 0.00 - 0.49 x10'3/uL COMPREHENSIVE METABOLIC PANEL Result Value Ref Range GLUCOSE 102 (H) 70 - 99 MG/DL BUN 7 7 - 18 MG/DL CREATININE S/P/B 1.38 (H) 0.7 - 1.3 MG/DL SODIUM 136 136 - 145 MMOL/L POTASSIUM 4.5 3.5 - 5.1 MMOL/L CHLORIDE S/P/B 103 100 - 108 MMOL/L CO2 24.8 21 - 32 MMOL/L CALCIUM 9.3 8.5 - 10.1 MG/DL TOTAL BILIRUBIN S/P/B 0.4 0.2 - 1.2 MG/DL TOTAL PROTEIN 8.6 (H) 6.4 - 8.2 G/DL ALBUMIN S/P/B 4.1 3.4 - 5.0 G/DL AST 58 (H) 15 - 37 U/L ALT 56 16 - 60 U/L ALK PHOS 95 50 - 136 U/L ANION GAP 8.2 5 - 15 MMOL/L BUN CREATININE RATIO 5.1 (L) 6 - 26 A/G RATIO 0.9 (L) 1.0 - 2.0 RATIO eGFR Non-Afr. Amer. 68 (L) >90 ML/MIN/1.73 M2 eGFR Afr. Amer. 78 (L) >90 ML/MIN/1.73 M2 IMAGING STUDIES XR CHEST PORTABLE Final Result by User, [id number] (06/29 1844) Examination: Chest 1 view portable History: Shortness of breath DATE/TIME: 06/30/2019 6:10 PM Comparison: October 11, 2018 Technique: AP upright portable view of the chest was obtained. Findings: Heart size, mediastinal contours and pulmonary vasculature are within normal limits. No pulmonary consolidation, pleural effusion or pneumothorax. No acute osseous abnormality. Impression: No acute chest findings. Interpreted By: Denilson Richter MD, 06/30/2019 6:43 PM ED Course / Medical Decision Making ED Course as of Jun 29 2005e Jun 30, 2019 1821 Pt c/o pain, Tylenol ordered [CS] 1843 CBC is normal, WBC 10.3, RBC 5.4, hgb 15.7 CBC W/DIFF AUTOMATED [CS] 1844 Pulse improving with fluids. Pulse 93, resp 21, 99% on room air. Pt given Tylenol for pain [CS] 1930 Pt states his inhaler is almost empty and hasn't been able to contact his pcp. Also is requesting something for nausea so that he can keep fluids down. [CS] ED Course User Index [CS] Vinita Hand APRN Medications sodium chloride 0.9% bolus infusion SOLN 1,000 mL (0 mLs Intravenous Infusion Stop Time 06/30/191845) ondansetron (ZOFRAN) injection 4 mg (4 mg Intravenous Given 3/31/20 1805) acetaminophen (TYLENOL) tablet 1,000 mg (1,000 mg Oral Given 06/30/19 1838) Clinical Impression Viral illness (Primary) Nausea Current Discharge Medication List START taking these medications Details albuterol sulfate HFA 108 (90 Base) MCG/ACT inhaler Inhale 2 puffs into the lungs every 6 (six) hours as needed for Wheezing or Shortness of breath. Qty: 1 Inhaler, Refills: 0 Class: Eprescribe Pharmacy: [facility]/pharmacy #[id number] [place] [address] AT [facility] (Ph #: [phone]) !! ondansetron 4 MG disintegrating tablet Take 1 tablet (4 mg total) by mouth every 8 (eight) hoursas needed for Nausea. Qty: 6 tablet, Refills: 0 Class: Eprescribe Pharmacy: [facility]/pharmacy #[id number] - [place], [place] - [address] AT [facility] (Ph #: [phone]) !! - Potential duplicate medications found. Please discuss with provider. Disposition: Discharge Follow-Up: Yobany Manzanares MD [address] [address] Schedule an appointment as soon as possible for a visit VINITA HAND APRN 06/30/2019 Vinita Hand APRN 06/30/192005 Cosigned by Pérez Dawson MD at 07/01/2019 6:27 AM CDT * Oksana Carrera RN - 06/30/2019 4:51 PM CDT Patient to ED with reports of shortness of breath, productive cough, and bodyaches x 3 days. SOB increases with exertion. States fever x 2 days ago. Ibuprofen at 1200 today. No relief with home MDI and nebulizer. OKSANA CARRERA RN documented in this encounter Plan of Treatment Not on file documented as of this encounter Procedures Procedure Name Priority Date/Time Associated Diagnosis Comments XR CHEST PORTABLE STAT 06/30/2019 6:4 0 PM CDT COMPREHENSIVE METABOLIC PANEL STAT 06/30/2019 6:06 PM CDT CBC W/DIFF AUTOMATED STAT 06/30/2019 6:06 PM CDT documented in this encounter Results * XR CHEST PORTABLE (06/30/2019 6:40 PM CDT) Anatomical Region Laterality Modality Chest Radiographic Britt ging 06/30/2019 6:43 PM CDT Impressions 06/30/2019 6:44 PM CDT Impression: No acute chest findings. Interpreted By: Denilson Richter MD, 06/30/2019 6:43 PM Narrative 06/30/2019 6:44 PM CDT Examination: Chest 1 view portable History: Shortness of breath DATE/TIME: 06/30/2019 6:10 PM Comparison: October 11, 2018 Technique: AP upright portable view of the chest was obtained. Findings: Heart size, mediastinal contours and pulmonary vasculature are within normal limits. ??No pulmonary consolidation, pleural effusion or pneumothorax. ??No acute osseous abnormality. Procedure Note Denilson Richter MD - 06/30/2019 Examination: Chest 1 view portable History: Shortness of breath DATE/TIME: 06/30/2019 6:10 PM Comparison: October 11, 2018 Technique: AP upright portable view of the chest was obtained. Findings: Heart size, mediastinal contours and pulmonary vasculature arewithin normal limits. No pulmonary consolidation, pleural effusion orpneumothorax. No acute osseous abnormality. Impression: No acute chest findings. Interpreted By: Denilson Richter MD, 06/30/2019 6:43 PM Vinita Hand RATING OFFICER GENERAL IMAGING Final Result * (ABNORMAL) COMPREHENSIVE METABOLIC PANEL (06/30/2019 6:06 PM CDT) [facility] Signature GLUCOSE 102(H) 70 - 99 MG/DL 06/30/2019 6:48 PM CDT [facility] BUN 7 7 - 18 MG/DL 06/30/2019 6:48 PM CDT [facility] CREATININE S/P/B 1.38(H) 0.7 - 1.3 MG/DL 06/30/2019 6:48 PM CDT [facility] SODIUM S/P/B 136 136 - 145 MMOL/L 06/30/2019 6:48 PM CDT [facility] POTASSIUM S/P/B 4.5 3.5 - 5.1 MMOL/L 06/30/2019 6:48 PM CDT [facility] Comment: SAMPLE REJECTED DUE TO HEMOLYSIS. PATIENT WILL BE REDRAWN AND CREDITED FOR THIS DRAW. CHLORIDE S/P/B 103 100 - 108 MMOL/L 06/30/2019 6:48 PM CDT [facility] CO2 24.8 21 - 32 MMOL/L 06/30/2019 6:48 PM CDT [facility] CALCIUM S/P/B 9.3 8.5 - 10.1 MG/DL 06/30/2019 6:48 PM CDT [facility] BILIRUBIN TOTAL S/P/B 0.4 0.2 - 1.2 MG/DL 06/30/2019 6:48 PM CDT [facility] Comment: THIS ASSAY IS NOT RECOMMENDED FOR PATIENTS UNDERGOING TREATMENT WITH ELTROMBOPAG DUE TO THE POTENTIAL FOR FALSELY ELEVATED RESULTS. TOTAL PROTEIN S/P/B 8.6(H) 6.4 - 8.2 G/DL 06/30/2019 6:48 PM CDT [facility] ALBUMIN S/P/B 4.1 3.4 - 5.0 G/DL 06/30/2019 6:48 PM CDT [facility] AST 58(H) 15 - 37 U/L 06/30/2019 6:48 PM CDT [facility] Comment: SAMPLE REJECTED DUE TO HEMOLYSIS. PATIENT WILL BE REDRAWN AND CREDITED FOR THIS DRAW. ALT 56 16 - 60 U/L 06/30/2019 6:48 PM CDT [facility] ALKALINE PHOSPHATASE S/P/B 95 50 - 136 U/L 06/30/2019 6:48 PM CDT [facility] ANION GAP 8.2 5 - 15 MMOL/L 06/30/2019 6:48 PM CDT [facility] BUN CREATININE RATIO 5.1(L) 6 - 26 06/30/2019 6:48 PM CDT [facility] A/G RATIO 0.9(L) 1.0 - 2.0 RATIO 06/30/2019 6:48 PM CDT [facility] EGFR NON-AFR. AMER. 68(L) >90 ML/MIN/1.7 3 M2 06/30/2019 6:48 PM CDT [facility] EGFR AFR. AMER. 78(L) >90 ML/MIN/1.7 3 M2 06/30/2019 6:48 PM CDT [facility] Comment: NOTE: eGFR is not calculated for patients <18 years of age. This is an estimated GFR (CKD EPI) and should not be used for calculating drug doses. 06/30/2019 6:06 PM CDT us Vinita Hand APRN LABORATORY Final Result [facility] [address] [place] [address], [place] [phone] * CBC W/DIFF AUTOMATED (06/30/2019 6:06 PM CDT) WBC 10.3 4.5 - 11.0 x10'3/uL 06/30/2019 6:31 PM CDT [facility] RBC 5.40 4.70 - 6.10 x10'6/uL 06/30/2019 6:31 PM CDT [facility] HGB 15.7 14.0 - 18.0 G/DL 06/30/2019 6:31 PM CDT [facility] HCT 47.4 43.0 - 54.0 % 06/30/2019 6:31 PM CDT [facility] MCV 87.8 80.0 - 94.0 FL 06/30/2019 6:31 PM CDT [facility] MCH 29.1 27.0 - 31.0 PG 06/30/2019 6:31 PM CDT [facility] MCHC 33.1 32.0 - 36.0 G/DL 06/30/2019 6:31 PM CDT [facility] RDW 12.1 11.5 - 14.5 % 06/30/2019 6:31 PM CDT [facility] PLT 313 130 - 400 x10'3/uL 06/30/2019 6:31 PM CDT [facility] MPV 10.4 9.3 - 12.2 FL 06/30/2019 6:31 PM CDT [facility] DIFFERENTIAL TYPE AUTOMATED DIFFERENTIAL 06/30/2019 6:31 PM CDT [facility] NEUTROPHILS % 54.4 % 06/30/2019 6:31 PM CDT [facility] LYMPHOCYTES % 34.7 % 06/30/2019 6:31 PM CDT [facility] MONOCYTES % 7.6 % 06/30/2019 6:31 PM CDT [facility] EOSINOPHILS 1.3 % 06/30/2019 6:31 PM CDT [facility] BASOPHILS 0.8 % 06/30/2019 6:31 PM CDT [facility] IMMATURE GRANS % 1.2 % 06/30/19 20 6:31 PM CDT [facility] ABS. NEUTROPHILS TOTAL 5.63 1.80 - 7.70 x10'3/uL 06/30/2019 6:31 PM CDT [facility] ABS. LYMPHOCYTES 3.58 1.00 - 4.80 x10'3/uL 06/30/2019 6:31 PM CDT [facility] ABS. MONOCYTES 0.78 0.30 - 0.82 x10'3/uL 06/30/2019 6:31 PM CDT [facility] ABS. EOSINOPHILS 0.13 0.04 - 0.54 x10'3/uL 06/30/2019 6:31 PM CDT [facility] ABS. BASOPHILS 0.08 0.01 - 0.08 x10'3/uL 06/30/2019 6:31 PM CDT [facility] ABS. IMMATURE GRANULOCYTES 0.12 0.00 - 0.49 x10'3/uL 06/30/2019 6:31 PM CDT [facility] 06/30/2019 6:06 PM CDT Vinita Hand RATING OFFICER LABORATORY Final Result [facility] [address] [place] [address], [place] [phone] documented in this encounter Visit Diagnoses Diagnosis Viral illness- Primary Unspecified viral infection, in conditions classified elsewhere and of unspecified site Nausea Nausea alone documented in this encounter Administered Medications Inactive Administered Medications - up to 3 most recent administrations Medication Order MAR Action Action Date Dose Rate Site acetaminophen (TYLENOL) 500 MG tablet 1 dose, Starting on Sat06/30/19 at 1822, Until Sat06/30/19 at 1838, Created by cabinet override acetaminophen (TYLENOL) tablet 1,000 mg 1,000 mg, Oral, Once, 1 dose, On Sat06/30/19 at 1830, Maximum dose of acetaminophen is 4000 mg from all sources in 24 hours. Given 06/30/2019 6:38 PM CDT 1,000 mg ondansetron (ZOFRAN) injection 4 mg 4 mg, Intravenous, Once, 1 dose, On Sat06/30/19 at 1745, IV push over 2-5 minutes. Given 06/30/2019 6:05 PM CDT 4 mg sodium chloride 0.9% bolus infusion SOLN 1,000 mL 1,000 mL, Intravenous, Administer over 15 Minutes, Once, 1 dose, On Sat06/30/19 at 1745 New Bag 06/30/2019 6:05 PM CDT 1,000 mLs documented in this encounter Active and Recently Administered Medications Times are shown in CDT. Scheduled Medication Order 06/28/2019 06/29/2019 06/30/2019 acetaminophen (TYLENOL) tablet 1,000 mg (COMPLETED) 1,000 mg, Oral, Once, 1 dose, On Sat06/30/19 at 1830, Maximum dose of acetaminophen is 4000 mg from all sources in 24 hours. 1838 (Given - Provid er: Starla Ernandez RN) ondansetron (ZOFRAN) injection 4 mg (COMPLETED) 4 mg, Intravenous, Once, 1 dose, On Sat06/30/19 at 1745, IV push over 2-5 minutes. 1805 (Given - Provid er: Starla Ernandez RN) sodium chloride 0.9% bolus infusion SOLN 1,000 mL (COMPLETED) 1,000 mL, Intravenous, Administer over 15 Minutes, Once, 1 dose, On Sat06/30/19 at 1745 1805 (New Bag - Prov ider: Starla Ernandez RN)1846 (Infusion Stop Time - Provider: Starla Ernandez RN) documented in this encounter Care Teams Lpc Relationship Specialty Start Date End Date Yobany Manzanares MD [address] [place] [address] PCP - General INTERNAL MEDICINE 07/11/18 11/12/19 documented as of this encounter
--- OUTSIDE RECORDS SUMMARY | 2024-04-04 19:30 | XMS_ITS | Encounter Summary ---
Author Organization [facility] Address [address] [place] [address]. [place], [place] [address] [place] [address] Care Team Providers Care Firer Marine Name Role Phone Staral Parham MD Primary Care Provider [phone] Reason for Visit * Reason Onset Date Comments Referral 01/18/2021 Returned Call 01/18/2021 Encounter Details Date Type Department Care Team (Late st Contact Info) Description 01/18/2021 Telephone [facility] - [address], [address] [place] [id number] Tamir Manuel MD [address] [place] [address] [address] [place] [address] Referral; Returned Call Social History Tobacco Use Types Packs/Day Years [...] AM CDT documented as of this encounter Progress Notes * Ela Torre - 01/27/2021 3:29 PM CDT Pt returned call to Rossy Would like a call back to discuss [phone] * Rossy Bah - 01/23/2021 8:54 AM CDT LVM for pt to give the office a call received a referral from patient's pcp to schedule an appt. * Rossy Bah - 01/18/2021 4:11 PM CDT LVM for pt to give the office a call received a referral from patient's pcp to give the patient a call to schedule an appt. documented in this encounter Plan of Treatment Not on file documented as of this encounter Visit Diagnoses Not on filedocumented in this encounter Care Teams Firer Marine Relationship Specialty Start Date End Date Starla Parham MD PCP - General FAMILY PRACTICE 11/17/20 documented as of this encounter
--- OUTSIDE RECORDS SUMMARY | 2024-04-04 19:30 | XMS_ITS | Encounter Summary ---
Author Organization [facility] Address [address] [place] [address]. [place], [place] [address] [place] [address] Care Team Providers Care Wood Box Maker Name Role Phone Starla Parham MD Primary Care Provider [phone] Encounter Details Date Type Department Care Team (Latest Contact Info) Description 04/11/2021 Travel Social History Tobacco Use Types Packs/Day [...] have Coronavirus / COVID-19? No / Unsure 04/11/2021 3:18 PM TEST BAKER documented as of this encounter Plan of Treatment Not on file documented as of this encounter Visit Diagnoses Not on filedocumented in this encounter Care Teams Wood Box Maker Relationship Specialty Start Date End Date Starla Parham MD PCP - General FAMILY PRACTICE 11/17/20 documented as of this encounter
--- OUTSIDE RECORDS SUMMARY | 2024-04-04 19:30 | XMS_ITS | Encounter Summary ---
Author Organization [facility] Address [address] [place] [address]. [place], [place] [id number] [place] [address] Care Team Providers Care Director Patient Name Role Phone Veronique Severino MD Primary Care Provider Unavailable Encounter Details Date Type Department Care Team (Latest Contact Info) Description 04/28/2012 [facility] Social History Tobacco Use Types Packs/Day Years [...] on filedocumented in this encounter Care Teams Director Patient Relationship Specialty Start Date End Date Veronique Severino MD PCP - General 04/13/12 documented as of this encounter
--- OUTSIDE RECORDS SUMMARY | 2024-04-04 19:30 | XMS_ITS | Encounter Summary ---
Author Organization [facility] Address [address] [place] [address]. [place], [place] [address] [place] [address] Care Team Providers Care Utility Worker Production Name Role Phone Starla Parham MD Primary Care Provider [phone] Reason for Visit * Reason Comments Ultrasound (SCAN) Encounter Details Date Type Department Care Team ([facility] Contact Info) Description 11/24/2020 Scan HEALTH INFO SRVCS Scanned, Documents Ultrasound (SCAN) Social History Tobacco Use Types Packs/Day [...] Procedure Name Priority Date/Time Associated Diagnosis Comments ULTRASOUND GENERIC (SCAN ORDER) 11/24/2020 documented in this encounter Results * ULTRASOUND GENERIC (11/24/2020) Anatomical Region Laterality Modality Other 11/24/2020 Narrative 11/24/2020 Ordered by an unspecified provider. us Documents Scanned SCANNING Final Result documented in this encounter Visit Diagnoses Not on filedocumented in this encounter Care Teams Utility Worker Production Relationship Specialty Start Date End Date Starla Parham MD PCP - General FAMILY PRACTICE 11/17/20 documented as of this encounter
--- OUTSIDE RECORDS SUMMARY | 2024-04-04 19:30 | XMS_ITS | Encounter Summary ---
Author Organization [facility] Address [address] [place] [address]. [place], [place] [address] [place] [address] Care Team Providers Care Sports Betting Manager Name Role Phone Starla Parham MD Primary Care Provider [phone] Reason for Visit * Reason Comments Ear Problem Encounter Details Date Type Department Care Team (Latest Contact Info) Description 10/31/2021 5:27 PM CDT - 10/31/2021 5:54 PM CDT Hospital Encounter [facility] [address] [place] [address] Carlos Mccarty MD [address] [place] [address] Ear Problem Discharge Disposition: Home or Self Care (Routine [...] Sign Reading Time Taken Comments Blood Pressure 132/86 10/31/2021 5:29 PM CDT Pulse 93 10/31/2021 5:29 PM CDT Temperature 36.6 ??C (97.9 ??F) 10/31/2021 5:29 PM CD T Respiratory Rate 18 10/31/2021 5:29 PM CDT Oxygen Saturation 99% 10/31/2021 5:29 PM CDT Inhaled Oxygen Concentration - - Weight 136.1 kg (300 lb) 10/31/2021 5:29 PM CDT Height 180.3 cm (5' 11 ) 10/31/2021 5:29 PM CDT Body Mass Index 41.84 10/31/2021 5:29 PM CDT documented in this encounter Discharge Instructions * Attachments The following attachments cannot be sent through Care Everywhere. * Serous Otitis Media Discharge Instructions (South African) documented in this encounter Medications at Time [...] 10/31/2021 07/09/2022 documented as of this encounter ED Notes * Carlos Mccarty MD - 10/31/2021 5:54 PM CDT [facility] Ur[facility] Care- [place] HISTORICAL INFORMATION Primary Care Doctor: Starla Parham MD Patient information was obtained primarily from the patient, nursing notes. History/Exam limitations: None Provider at Bedside Date/Time Event User Comments 10/31/21 1730 Provider at Bedside Assessing Patient CARLOS MCCARTY -- CHIEF COMPLAINT Ear Problem Chief Complaint Patient presents with ??? Ear Problem HPI Oscar Rehman is a 36-year-old male who presents with a recent history of left eardrum rupture after having it cleaned at his doctor's office few days ago. The patient says his pain is worse and he has had symptoms of vertigo since. Denies any fever chills ear discharge nausea vomiting diarrhea skin rash cough or shortness of breath. PAST MEDICAL HISTORY Past Medical History: Diagnosis Date ??? Asthma ??? Depression ??? Diabetes mellitus (CMS/HCC) ??? Hypertension ??? IBS (irritable bowel syndrome) ??? Ulcerative colitis (CMS/HCC) SURGICAL HISTORY Past Surgical History: Procedure Laterality Date ??? COLONOSCOPY CURRENT MEDICATIONS No current facility-administered medications for this encounter. Current Outpatient Medications: ??? methylPREDNISolone, MAHENDRA, (MEDROL DOSEPAK) 4 MG tablet, 6 TABLETS ON DAY ONE, 5 TABLETS DAY TWO,4 TABLETS DAY THREE, 3 TABLETS DAY FOUR, 2 TABLETS DAY FIVE, AND 1 TABLET DAY SIX, Disp: 1 each, Rfl: 0 ??? albuterol sulfate HFA 108 [...] Single Tobacco Use ??? Smoking status: Never Smoker ??? Smokeless tobacco: Never Used Vaping Use ??? Vaping Use: Never used Substance and Sexual Activity ??? Alcohol use: Yes Comment: very rarely ??? Drug use: No REVIEW OF SYSTEMS Constitutional: Denies fever, chills, weight loss or weakness. Skin: Denies rash. HEENT: Ear pain and vertigo Respiratory: Denies cough or shortness of breath. Cardiovascular: Denies chest pain, palpitations or swelling. GI: Denies abdominal pain, nausea, vomiting, or diarrhea. : Denies dysuria, urinary frequency. Musculoskeletal: Denies back pain. Neurologic: Denies headache, focal weakness or sensory changes. Psychiatric: Denies depression, suicidal ideation or homicidal ideation. See HPI for further details. All systems negative except as marked. Physical Exam VITAL SIGNS: Filed Vitals: 10/31/21 1729 BP: 132/86 Pulse: 93 Resp: 18 Temp: 97.9 ??F (36.6 ??C) SpO2: 99% Weight: 136.1 kg (300 lb) Height: 5' 11 (1.803 m) Constitutional: Well developed, No acute distress, Non-toxic appearance. Integument: Warm, Dry, No erythema, No rash. HEENT: Normocephalic, Atraumatic, Conjunctiva normal Left ear distended dull with evidence of fluid behind the tympanic membrane. EAC normal. Neck- Normal range of motion, Supple Back- Normal range of motion, No gross abnormality Respiratory: Normal breath sounds, No respiratory distress. Cardiovascular: Normal heart rate, Normal rhythm GI: Bowel sounds normal, Soft, No tenderness Musculoskeletal: Good ROM, no deformities noted Neurologic: Alert & oriented x 3, No focal deficits noted. Psychiatric: Affect normal, Judgment normal, Mood normal. EKG (interpreted by ED provider) No results found for this visit on 10/31/21. LABORATORY Labs Reviewed - No data to display RADIOLOGY No orders to display PROCEDURES Procedures MDM 36-year-old presents with clinical picture consistent with a serous otitis media. There is no obvious injury that I can see to the eardrum at this point. We will prescribe a course of steroids and have patient follow-up with ENT for further evaluation and treatment I have discussed today's findings with the [...] of these instructions. Impression/Disposition SNOMED CT(R) 1. Left acute serous otitis media ACUTE SEROUS OTITIS MEDIA OF LEFT EAR Disposition: Discharge Medications - No data to display Discharge Medication List as of 10/31/2021 5:47 PM START taking these medications Details methylPREDNISolone, MAHENDRA, (MEDROL DOSEPAK) 4 MG tablet 6 TABLETS ON DAY ONE, 5 TABLETS DAY TWO, 4 TABLETS DAY THREE, 3 TABLETS DAY FOUR, 2 TABLETS DAY FIVE, AND 1 TABLET DAY SIX, Eprescribe Class: Eprescribe Pharmacy: [id number] - [address] [facility] [address] (Ph #: [phone]) MD Carlos MADISON MD 11/22/21 1638 * Brianna Penn RN - 10/31/2021 5:29 PM CDT Pt reports L ear drum ruptured r/t having clear cleaned at doctors office. Pt reports pain worse and vertigo. intital injury on saturday documented in this encounter Plan of Treatment Not on file documented as of this encounter Visit Diagnoses Diagnosis Left acute serous otitis media- Primary Acute serous otitis media documented in this encounter Care Teams Sports Betting Manager Relationship Specialty Start Date End Date Starla Parham MD PCP - General FAMILY PRACTICE 11/17/20 documented as of this encounter
--- OUTSIDE RECORDS SUMMARY | 2024-04-04 19:30 | XMS_ITS | Encounter Summary ---
Author Organization [facility] Address [address] [place] [address]. [place], [place] [address] [place] [address] Care Team Providers Care Director Special Education Name Role Phone Starla Parham MD Primary Care Provider [phone] Encounter Details Date Type Department Care Team (Latest Contact Info) Description 01/06/2021 Travel Social History Tobacco Use Types Packs/Day [...] filedocumented in this encounter Care Teams Director Special Education Relationship Specialty Start Date End Date Starla Parham MD PCP - General FAMILY PRACTICE 11/17/20 documented as of this encounter
--- OUTSIDE RECORDS SUMMARY | 2024-04-04 19:30 | XMS_ITS | Encounter Summary ---
Author Organization [facility] Address Critical access hospital[facility]. [place], [place] [address] [place] [address] Care Team Providers Care Welder Railcar Mechanic Name Role Phone Starla Parham MD Primary Care Provider [phone] Reason for Referral * Imaging (Emergency) - Closed Specialty Diagnoses / Procedures Referred By Contac t Referred To Contact RADIOLOGY Procedures CT HEAD WO CON Olvin Elmore PA [address] [place] [address] Phone: tel: fax: Referral ID Status Reason Start Date Expiration Date Visits Re quested Visits Authorized [id number] Closed 04/11/2021 05/12/2022 1 1 IC PHYSICS TEACHER Reason for Visit * Reason Comments Head Injury Encounter Details Date Type Department Care Team (Late st Contact Info) Description 04/11/2021 3:39 PM ATOMIC PHYSICS TEACHER - 04/11/2021 4:57 PM ATOMIC PHYSICS TEACHER Emergency [facility] [place] [address] Olvin Elmore PA [address] [place] [address] Head Injury Discharge Disposition: Home or Self Care (Routine [...] COVID-19? No / Unsure 04/11/2021 3:18 PM ATOMIC PHYSICS TEACHER documented as of this encounter Last Filed Vital Signs Vital Sign Reading Time Taken Comments Blood Pressure 139/91 04/11/2021 4:51 PM ATOMIC PHYSICS TEACHER Pulse 82 04/11/2021 4:51 PM ATOMIC PHYSICS TEACHER Temperature 36.8 ??C (98.2 ??F) 04/11/2021 4:51 PM CS T Respiratory Rate 16 04/11/2021 4:51 PM ATOMIC PHYSICS TEACHER Oxygen Saturation 97% 04/11/2021 4:51 PM ATOMIC PHYSICS TEACHER Inhaled Oxygen Concentration - - Weight 131.1 kg (289 lb) 04/11/2021 3:24 PM ATOMIC PHYSICS TEACHER Height 180.3 cm (5' 11 ) 04/11/2021 3:24 PM ATOMIC PHYSICS TEACHER Body Mass Index 40.31 04/11/2021 3:24 PM ATOMIC PHYSICS TEACHER documented in this encounter Discharge Instructions * Discharge Instructions* DIVYA Rodriguez - 04/11/2021 4:39 PM ATOMIC PHYSICS TEACHER Follow-up with primary care in the next 7 days for reevaluation Return if symptoms worsen or concerns or any lightheadedness dizziness nausea vomiting weakness Follow-up patient education sheets IC PHYSICS TEACHER * Attachments The following attachments cannot be sent through Care Everywhere. * Concussion Discharge Instructions, Adult (Yemeni) documented in this encounter Medications at Time [...] of this encounter ED Notes * DIVYA Rodriguez - 04/11/2021 4:33 PM CST [place], [place] EMERGENCY DEPARTMENT ENCOUNTER HISTORICAL INFORMATION Primary Care Doctor: Starla Parham MD Patient information was obtained primarily from the patient, nursing notes. History/Exam limitations: None Provider at Bedside Date/Time Event User Comments 04/11/21 1518 Provider at Bedside Assessing Patient OLVIN ELMORE ASPEN CHIEF COMPLAINT Head Injury Chief Complaint Patient presents with ??? Head Injury HPI Oscar Rehman is a 35-year-old male who presents for evaluation of 20-hour history of head injury was seen at urgent care referred for concern that he was slow to respond to questioning he did not lose consciousness patient is stood up and struck his head notes headache has history of concussions presents nondistressed has not taken anything for his symptoms denies vomiting neck pain or other complaints presents with normal gait PAST MEDICAL HISTORY Past Medical History: Diagnosis [...] as needed for Wheezing or Shortness of breath., Disp: 1 Inhaler, Rfl: 0 ??? dicyclomine 20 MG tablet, Take 1 tablet (20 mg total) by mouth every 6 (six) hours., Disp: 120 tablet, Rfl: 0 ??? gabapentin 300 MG capsule, , Disp: , Rfl: ??? lisinopril 5 MG tablet, Take 5 mg by mouth daily., Disp: , Rfl: ??? metFORMIN 500 MG tablet, Take 1 tablet (500 mg total) by mouth 2 (two) times daily with meals. (Patient taking differently: Take 1,000 mg by mouth 2 (two) times daily with meals. ), Disp: 60 tablet, Rfl: 0 ??? traZODone 100 MG tablet, daily., Disp: , Rfl: ALLERGIES Allergies Allergen Reactions ??? Morphine Other (see comment) Bradycardia. FAMILY HISTORY Family History Problem Relation Name Age of Onset ??? No Known Problems Mother ??? Cancer Father ??? Cancer Brother SOCIAL HISTORY Social History Socioeconomic History ??? Marital status: Single Spouse name: Not on file ??? Number of children: Not on file ??? Years of education: Not on file ??? Highest education level: Not on file Occupational History ??? Not on file Tobacco Use ??? Smoking status: Never Smoker ??? Smokeless tobacco: Never Used Vaping Use ??? Vaping Use: Never used Substance and Sexual Activity ??? Alcohol use: Yes Comment: very rarely ??? Drug use: No ??? Sexual activity: Not on file Other Topics Concern ??? Not on file Social History Narrative ??? Not on file Social Determinants of Health Financial Resource Strain: Not on file Food Insecurity: Not on file Transportation Needs: Not on file Physical Activity: Not on file Stress: Not on file Social Connections: Not on file Intimate Partner Violence: Not on file REVIEW OF SYSTEMS Constitutional: Denies fever, chills HEENT: Denies sore throat, rhinorrhea Respiratory: Denies cough or shortness of breath. GI: Denies nausea, vomiting Musculoskeletal: Denies back pain, joint pain Neurologic: Denies weakness or sensory changes. Skin: Denies rash or bruising See HPI for further details. All systems negative except as marked. Physical Exam VITAL SIGNS: Filed Vitals: 04/11/21 1524 BP: (!) 140/89 Pulse: 83 Resp: 18 Temp: 97.5 ??F (36.4 ??C) TempSrc: Oral SpO2: 99% Weight: 131.1 kg (289 lb) Height: 5' 11 (1.803 m) Constitutional: Well-appearing, No acute distress, Non-toxic appearance. HEENT: Normocephalic, Atraumatic, Conjunctiva normal. Neck- Normal range of motion, Supple. No masses Respiratory: Normal breath sounds, No respiratory distress. No wheezes, rales, ronchi Cardiovascular: Normal heart rate, rhythm. No murmur. Normal pulses SKIN: Warm, Dry, No erythema, No rash. Back- Normal range of motion, No gross abnormality. No cervical spine tenderness to palpation Musculoskeletal: Good ROM, no deformities noted. No edema Neurologic: Alert & oriented x 3, No focal deficits noted. Cranial nerves II-XII grossly intact. Normal speech and gait Psychiatric: Affect normal, Judgment normal, Mood normal. EKG (interpreted by ED provider) No results found for this visit on 04/11/21. LABORATORY Labs Reviewed - No data to display RADIOLOGY CT HEAD WO CON Final Result by User, [email or web address] (04/11 1602) DATE: 04/11/2021 3:35 PM EXAMINATION: CT of the head CLINICAL HISTORY: Head injury. Headache. Nausea. COMPARISON: None TECHNIQUE: CT examination of the head without contrast was performed with axial images obtained. A dose lowering technique was used for this procedure, which may include, but is not limited to, dose reduction technique, automated exposure control, the use of iterative reconstruction, and ALARA (As Low As Reasonably Achievable) / Image Gently techniques. FINDINGS: No acute intracranial hemorrhage, extra-axial collections, intracranial mass effect, or midline shift. Mackey-white matter differentiation grossly preserved. No definite CT evidence of acute territorial infarction, though MRI would be more sensitive. Ventricles and extra-axial/subarachnoid spaces unremarkable. Calvarium unremarkable. Mastoid air cells clear. Mild mucosal thickening in the paranasal sinuses. Visualized orbits unremarkable. IMPRESSION: 1. No definite CT evidence of acute intracranial abnormality, as above. Ordered By: OLVIN ELMORE Interpreted By: Samuel Anguiano MD, 04/11/2021 4:00 PM PROCEDURES Procedures MDM Patient presented with head injury normal mentation GCS of 15 cranial nerves II through XII grosslyintact will be discharged home with outpatient follow-up negative CT imaging felt appropriate for outpatient reevaluation I have discussed today's findings with the [...] of these instructions. Impression/Disposition SNOMED CT(R) 1. Head injury INJURY OF HEAD Disposition: Discharge Medications - No data to display Current Discharge Medication List DIVYA Rodriguez PA 04/11/21 1639 IC PHYSICS TEACHER * Arsenio Morales RN - 04/11/2021 3:27 PM CST PT came into the ED with c/o head injury. PT reports he his his head on a metal shelf yesterday andcan't remember much after the incident. PT report feeling out of it. PT reports some nausea. PT vitals stable at this time. PT A&OX4. IC PHYSICS TEACHER documented in this encounter Plan of Treatment Not on file documented as of this encounter Procedures Procedure Name Priority Date/Time Associated Diagnosis Comments CT HEAD WO CON STAT 04/11/2021 3:35 PM ATOMIC PHYSICS TEACHER documented in this encounter Results * CT HEAD WO CON (04/11/2021 3:35 PM ATOMIC PHYSICS TEACHER) Anatomical Region Laterality Modality Head Computed Tomogra phy 04/11/2021 4:00 PM ATOMIC PHYSICS TEACHER Impressions 04/11/2021 4:02 PM ATOMIC PHYSICS TEACHER IMPRESSION: 1. No definite CT evidence of acute intracranial abnormality, as above. Ordered By: OLVIN ELMORE Interpreted By: Samuel Anguiano MD, 04/11/2021 4:00 PM Narrative 04/11/2021 4:02 PM ATOMIC PHYSICS TEACHER DATE: 04/11/2021 3:35 PM EXAMINATION: CT of the head CLINICAL HISTORY: Head injury. Headache. Nausea. COMPARISON: None TECHNIQUE: CT examination of the head without contrast ??was performed with axial images obtained. A dose lowering technique was used for this procedure, which may include, but is not limited to, dose reduction technique, automated exposure control, the use of iterative reconstruction, and ALARA (As Low As Reasonably Achievable) / Image Gently techniques. FINDINGS: No acute intracranial hemorrhage, extra-axial collections, intracranial mass effect, or midline shift. Mackey-white matter differentiation grossly preserved. No definite CT evidence of acute territorial infarction, though MRI would be more sensitive. Ventricles and extra-axial/subarachnoid spaces unremarkable. Calvarium unremarkable. Mastoid air cells clear. Mild mucosal thickening in the paranasal sinuses. Visualized orbits unremarkable. Procedure Note Samuel Anguiano MD - 04/11/2021 DATE: 04/11/2021 3:35 PM EXAMINATION: CT of the head CLINICAL HISTORY: Head injury. Headache. Nausea. COMPARISON: None TECHNIQUE: CT examination of the head without contrast was performed withaxial images obtained. A dose lowering technique was used for this procedure, which may include,but is not limited to, dose reduction technique, automated exposurecontrol, the use of iterative reconstruction, and ALARA (As Low AsReasonably Achievable) / Image Gently techniques. FINDINGS: No acute intracranial hemorrhage, extra-axial collections, intracranialmass effect, or midline shift. Mackey-white matter differentiation grosslypreserved. No definite CT evidence of acute territorial infarction, thoughMRI would be more sensitive. Ventricles and extra-axial/subarachnoidspaces unremarkable. Calvarium unremarkable. Mastoid air cells clear. Mildmucosal thickening in the paranasal sinuses. Visualized orbitsunremarkable. IMPRESSION: 1. No definite CT evidence of acute intracranial abnormality, as above. Ordered By: OLVIN ELMORE Interpreted By: Samuel Anguiano MD, 04/11/2021 4:00 PM us Olvin [facility] CT Final Result documented in this encounter Visit Diagnoses Diagnosis Head injury- Primary Head injury, unspecified documented in this encounter Care Teams Welder Railcar Mechanic Relationship Specialty Start Date End Date Starla Parham MD PCP - General FAMILY PRACTICE 11/17/20 documented as of this encounter
--- OUTSIDE RECORDS SUMMARY | 2024-04-04 19:30 | XMS_ITS | Encounter Summary ---
Author Organization [facility] Address [address] [place] [address]. [place], [place] [address] [place] [address] Care Team Providers Care Acid Tender Name Role Phone Starla Parham MD Primary Care Provider [phone] Encounter Details Date Type Department Care Team (Latest Contact Info) Description 11/28/2020 Scan HEALTH INFO SRVCS Scanned, Documents Social [...] on filedocumented in this encounter Care Teams Acid Tender Relationship Specialty Start Date End Date Starla Parham MD PCP - General FAMILY PRACTICE 11/17/20 documented as of this encounter
--- OUTSIDE RECORDS SUMMARY | 2024-04-04 19:30 | XMS_ITS | Encounter Summary ---
Author Organization [facility] Address [address] [place] [address]. [place], [place] [address] [place] [address] Care Team Providers Care Radial Drill Press Operator For Plastic Name Role Phone Starla Parham MD Primary Care Provider [phone] Encounter Details Date Type Department Care Team (Latest Contact Info) Description 12/30/2020 Travel Social History Tobacco Use Types Packs/Day [...] on filedocumented in this encounter Care Teams Radial Drill Press Operator For Plastic Relationship Specialty Start Date End Date Starla Parham MD PCP - General FAMILY PRACTICE 11/17/20 documented as of this encounter
--- OUTSIDE RECORDS SUMMARY | 2024-04-04 19:30 | XMS_ITS | Encounter Summary ---
Author Organization [facility] Address [address] [place] [address]. [place], [place] [address] [place] [address] Care Team Providers Care Subassemblies Wirer Name Role Phone Starla Parham MD Primary Care Provider [phone] Reason for Visit * Reason Comments Procedure (SCAN) Encounter Details Date Type Department Care Team ([facility] Contact Info) Description 01/06/2021 Scan HEALTH INFO SRVCS Scanned, Documents Procedure (SCAN) Social History Tobacco Use Types Packs/Day [...] Procedure Name Priority Date/Time Associated Diagnosis Comments PROCEDURE GENERIC (SCAN ORDER) 01/06/2021 documented in this encounter Results * PROCEDURE GENERIC (01/06/2021) 01/06/2021 Narrative 01/06/2021 Ordered by an unspecified provider. us Documents Scanned SCANNING Final Result documented in this encounter Visit Diagnoses Not on filedocumented in this encounter Care Teams Subassemblies Wirer Relationship Specialty Start Date End Date Starla Parham MD PCP - General FAMILY PRACTICE 11/17/20 documented as of this encounter
--- OUTSIDE RECORDS SUMMARY | 2024-04-04 19:30 | XMS_ITS | Encounter Summary ---
Author Organization [facility] Address [address] [place] [address]. [place], [place] [address] [place] [address] Care Team Providers Care Imaging Tech Name Role Phone None, Provider Primary Care Provider Shireen good Encounter Details Date Type Department Care Team (Latest Contact Info) Description 11/04/2020 Travel Social History Tobacco Use Types Packs/Day [...] on filedocumented in this encounter Care Teams Imaging Tech Relationship Specialty Start Date End Date None, Provider, PCP - General 11/13/19 11/16/20 documented as of this encounter
--- OUTSIDE RECORDS SUMMARY | 2024-04-04 19:32 | XMS_ITS | Clinical Summary ---
Author Organization [facility] at the [facility] Address [address] [place] [address] Care Team Providers Care Digital Associate Media Director Name Role Phone Nikky Cunningham MD Primary Care Provider Allergies Active Allergy Reactions Criticality Noted Date Comments Lisinopril Cough Low 06/19/2023 Morphine Palpitations,Other ( See comments) High 07/11/2018 Bradycardia. Medications albuterol HFA (PROVENTIL HFA,VENTOLIN HFA,PROAIR HFA) 90 mcg/actuation inhaler TAKE 2 PUFFS BY MOUTH EVERY 6 HOURS NEEDED FOR WHEEZE OR SHORTNESS OF BREATH 06/30/19 20 Active blood sugar diagnostic (ONETOUCH VERIO TEST STRIPS MISC) OneTouch Verio test strips Active amLODIPine (NORVASC) 5 mg tablet Take 1 tablet (5 mg total) by mouth daily 11/23/19 22 Active atorvastatin (LIPITOR) 40 mg tablet 11/23/19 22 Active metFORMIN (GLUCOPHAGE) 1,000 mg tablet Take 1 tablet (1,000 mg total) by mouth 2 (two) times a day with meals 11/23/19 22 Active ondansetron ODT (ZOFRAN-ODT) 4 mg disintegrating tablet Take 1 tablet (4 mg total) by mouth every 6 (six) hours 20 tablet 5 12/03/19 24 Active dicyclomine (BENTYL) 20 mg tabletIndications :Irritable Bowel Syndrome Take 1 tablet (20 mg total) by mouth 4 (four) times a day as needed (abdominal cramping/pain or problematic diarrhea driven by cramping) 120 tablet 3 12/03/19 24 Active amitriptyline (ELAVIL) 25 mg tablet Take 1 tablet (25 mg total) by mouth nightly 90 tablet 3 12/03/[address] (PROTONIX) 40 mg EC tablet Take 1 tablet (40 mg total) by mouth daily 90 tablet 3 12/03/19 24 Active simethicone (MYLICON) 125 mg chewable tablet Take 1 tablet (125 mg total) by mouth 4 (four) times a day as needed (cramping/bloat ing/gas/nausea) 120 tablet 3 12/03/19 24 Active polyethylene glycol (MIRALAX) 17 gram/dose bulk powder Take one capful of MiraLax three nights weekly for constipation management. 595 g 1 12/03/19 24 Active cholecalciferol (VITAMIN D-3) 25 mcg (1,000 unit) tablet Take 1 tablet (1,000 Units total) by mouth daily 90 tablet 3 12/11/19 24 025 Active hydrocortisone (ANUSOL-HC) 25 mg suppository Insert 1 suppository (25 mg total) into the rectum 2 (two) times a day as needed for hemorrhoids 24 suppository 3 03/03/20 24 Active linaCLOtide (LINZESS) 145 mcg capsule Take 1 capsule (145 mcg total) by mouth daily 90 capsule 3 03/03/20 24 Active Active Problems Problem Noted Date Diagnosed Date Hepatic steatosis 12/03/2023 RUQ pain 12/03/2023 Nausea and vomiting 12/03/2023 Gastroesophageal reflux disease 12/03/2023 Sepsis 06/20/2023 Sinus tachycardia 06/20/2023 Gastroenteritis 06/19/2023 Hypersomnia 11/29/2021 Restless legs 11/29/2021 Psychophysiological insomnia 11/29/2021 Nonsmoker 11/29/2021 History of COVID-19 11/29/2021 Pulmonary nodule/lesion, solitary 10/05/2019 Assessment & Plan (10/05/2019 4:49 PM CDT): Patient has 1 pulmonary nodule which is [address] scan of the abdomen and pelvis. Will repeat CT scan of the chest in 1 year given his family history of lung cancer. STACIE (obstructive sleep apnea) 10/05/2019 Assessment & Plan (10/05/2019 4:50 PM CDT): Patient is obese and complains of snoring at night, daytime sleepiness and fatigue. Suspect underlying obstructive sleep apnea. I will refer him to Sleep Clinic for sleep study. Essential hypertension 02/05/2019 Type 2 diabetes mellitus without complication (C MS/HCC) 07/23/2018 Asthma 07/26/2017 Assessment & Plan (10/05/2019 4:50 PM CDT): Patient has mild intermittent asthma and is on p.r.n. albuterol inhaler active will be continued. I will check IgE level. He complains of cough with sinus drainage. I will start him on Zyrtec. Obtain full set of PFTs before next visit. Irritable bowel syndrome 07/26/2017 Encounters Date Type Department Care Team Description 03/20/2024 2:52 AM DRILL RUNNER HELPER - 03/20/2024 8:10 AM DRILL RUNNER HELPER Emergency [facility] Emergency Department [address] [place] [address] Aren Gomez MD Abdominal pain (Primary Dx); Biliary colic Discharge Disposition: Discharge to home or self care 03/03/2024 8:30 AM DRILL RUNNER HELPER Office Visit [facility] at [address] [place] [address] Rubio Martinez NP Irritable bowel syndrome with both constipation and diarrhea (Primary Dx); BRBPR (bright red blood per rectum); Nausea without vomiting; RUQ pain; Erosive esophagitis; Superficial gastritis without hemorrhage, unspecified chronicity; Tubular adenoma of colon; Hepatic steatosis 01/22/2024 11:09 AM CDT - 01/22/2024 11:59 PM CDT Hospital Encounter [address] [address] Discharge Disposition: Discharge to home or self care 01/22/2024 11:08 AM CDT - 01/22/2024 11:59 PM CDT Hospital Encounter [address] [address] Discharge Disposition: Discharge to home or self care 01/22/2024 11:08 AM CDT - 01/22/2024 11:59 PM CDT Hospital Encounter [facility] [address] [place] [address] Discharge Disposition: Discharge to home or self care 01/22/2024 11:08 AM CDT - 01/22/2024 11:59 PM CDT Hospital Encounter [facility] [address] [place] [address] Discharge Disposition: Discharge to home or self care 01/22/2024 11:00 AM CDT - 01/22/2024 11:59 PM CDT Hospital Encounter [facility] [address] [place] [address] Nausea and vomiting, unspecified vomiting type; Gastroesophageal reflux disease, unspecified whether esophagitis present Discharge Disposition: Discharge to home or self care from Last 3 Months Immunizations Name Administration Dates Next Due Influenza, Quadrivalent, Split, Intramuscular Medical History Medical History Date Comments Asthma Hypertension Diabetes mellitus (HCC) Family History Medical History Relation Name Comments Cancer Brother Cancer Father Cancer Maternal Grandfather Cancer Maternal Grandmother Relation Name Status Comments Brother Father Maternal Grandfather Maternal Grandmother Mother Alive Paternal Grandfather Paternal Grandmother Social History Tobacco Use Types Packs/Day Years Used Date Smoking Tobacco: Never Smokeless Tobacco: Never Tobacco Cessation:Counseling Given: Not Answered Alcohol Use Standard Drinks/Week Comments Yes 0 (1 standard drink = 0.6 oz pur e alcohol) rarely [employer] Utilities Answer Date Recorded In the past 12 months has [employer], [employer], oil, or water [employer] threatened to shut off services in your home? No 06/20/2023 Social Connection and Isolation Panel [NHANES] A nswer Date Recorded In a typical week, how many times do you talk on the phone with family, friends, or neighbors? Three times a week 06/20/19 How often do you get togethe r with friends or relatives? Three times a week 06/20/2023 How often do you attend chur ch or jehovah's witness services? Never 06/20/2023 Do you belong to any clubs o r organizations such as rastafarian groups, unions, fraternal or athletic groups, or school groups? No 06/20/2023 How often do you attend meet ings of the clubs or organizations you belong to? Never 06/20/2023 Are you , , di vorced, , never , or living with a partner? Living with partner 06/20/2023 Overall Financial Resource Strain (CARDIA) Answe r Date Recorded How hard is it for you to pa y for the very basics like food, housing, medical care, and heating? Not hard at all 06/20/2023 Hunger Vital Sign Answer Date Recorded Within the past 12 months, y ou worried that your food would run out before you got the money to buy more. Never true 06/20/19 24 Within the past 12 months, t he food you bought just didn't last and you didn't have money to get more. Never true 06/20/2023 PRAPARE - Transportation Answer Date Re corded In the past 12 months, has l ack of transportation kept you from medical appointments or from getting medications? No 05/31 In the past 12 months, has l ack of transportation kept you from meetings, work, or from getting things needed for daily living? No 06/20/2023 Housing Stability Vital Sign Answer Nj e Recorded In the last 12 months, was t here a time when you were not able to pay the mortgage or rent on time? No 06/20/2023 In the last 12 months, how many places have you lived? 2 06/20/2023 In the last 12 months, was t here a time when you did not have a steady place to sleep or slept in a assisted (including now)? No 06/20/2023 Personal Safety Answer Date Recorded Have you ever been in or are you currently in a harmful physical or emotional relationship or is someone making you feel afraid or unsafe? Denies 03/20/2024 Education Answer Date Recorded What is the highest level of school you have completed or the highest degree you have received? Some college, no degree 06/20/2023 Sex and Gender Information Value Date Recorded Sex Assigned at Not on file Legal Sex Male 7:25 PM DRILL RUNNER HELPER Gender Identity Not on file Sexual Orientation Not on file Obstetrics History Last Filed Vital Signs Vital Sign Reading Time Taken Comments Blood Pressure 151/92 03/20/2024 7:55 AM DRILL RUNNER HELPER Pulse 88 03/20/2024 7:55 AM DRILL RUNNER HELPER Temperature 35.8 ??C (96.4 ??F) 03/20/2024 2:55 AM CS T Respiratory Rate 16 03/20/2024 7:55 AM DRILL RUNNER HELPER Oxygen Saturation 98% 03/20/2024 7:55 AM DRILL RUNNER HELPER Inhaled Oxygen Concentration - - Weight 140.6 kg (310 lb) 03/20/2024 2:55 AM DRILL RUNNER HELPER Height 180.3 cm (5' 11 ) 03/03/2024 8:31 AM DRILL RUNNER HELPER Body Mass Index 43.24 03/03/2024 8:31 AM DRILL RUNNER HELPER Plan of Treatment Health Maintenance Due Date Last Done Comments Albumin Creatinine Ratio, Urine 1987 Depression Screening 1987 Dilated Eye Exam 1987 Foot Exam 1987 Pneumococcal vaccine <65 (1 of 2 - PCV) 10/21/1993 DTaP/Tdap/Td Vaccine (1 - Tdap) 10/21/1998 Varicella Vaccines (1 of 2 - 13+ 2-dose series) 10/21/2000 Hepatitis B Screening 10/21/2005 Regular Well Visit/Exam 18-64 10/21/2005 Hemoglobin A1C 03/26/2020 09/25/2019 Lipid Panel 09/24/2020 09/25/2019 Covid-19 Vaccine ( season) 2023 03/03/2021, 02/03/2021 Influenza Vaccine (#1) 2023 01/30/2018 eGFR 03/20/2025 03/20/2024, 08/30, 06/20/2023, Additional history exists Hepatitis C Screening Completed 09/25/2019 HPV Vaccines Aged Out No longer eligi ble based on patient's age to complete this topic Procedures Procedure Name Priority Date/Time Associated Diagnosis Comments CT ABDOMEN PELVIS W CONTRAST ED 03/20/2024 6:25 AM DRILL RUNNER HELPER EGFR STAT 03/20/2024 3:08 AM DRILL RUNNER HELPER DIFFERENTIAL AUTO STAT 03/20/2024 3:0 8 AM DRILL RUNNER HELPER LIPASE STAT 03/20/2024 3:08 AM DRILL RUNNER HELPER COMPREHENSIVE METABOLIC PANEL STAT 03/20/2024 3:08 AM DRILL RUNNER HELPER CBC WITH AUTO DIFFERENTIAL STAT 03/20/2024 3:08 AM DRILL RUNNER HELPER NM GASTRIC EMPTYING STUDY Schedule Routine, Read Routine (OP Routine) 01/22/2024 3:16 PM CDT Nausea and vomiting, unspecified vomiting type Gastroesophageal reflux disease, unspecified whether esophagitis present HEPATITIS PANEL, ACUTE Routine 09/25/2019 7:23 AM CDT HEMOGLOBIN A1C Routine 09/25/2019 4:25 AM CDT LIPID PANEL Routine 09/25/2019 4:25 AM CDT from Last 3 Months or Most Recently Relevant to Health Maintenance Results * CT Abdomen Pelvis W Contrast (03/20/2024 6:25 AM DRILL RUNNER HELPER) Anatomical Region Laterality Modality Body N/A Computed Tomogra phy 03/20/2024 6:27 AM DRILL RUNNER HELPER Narrative 03/20/2024 6:31 AM DRILL RUNNER HELPER EXAM DESCRIPTION: ?? CT ABDOMEN PELVIS W CONTRAST REASON FOR STUDY: ?? Abdominal infection suspected ?? sided epigastric pain. Pt reports pain is a 9/10, started aprox 30-40 minutes prior to coming to the ER. Pt states that he was seen by his PCP last week for n/v after eating. Pt states that he also has hx of pancreatitis. ?? No surgery ?? Hx of asthma, diabetes, and HTN ??No hx of cancer ?? TECHNIQUE: CT scan of the abdomen and pelvis performed with intravenous and ?? without ??oral contrast using helical scanning technique with dynamic intravenous contrast injection. Reconstructed coronal and sagittal MPR images reviewed. All images stored on PACS. Automated exposure control was used as a dose optimization technique for this examination. CONTRAST TYPE/DOSE: ?? 100mL of IOVERSOL 350 MG IODINE/ML INTRAVENOUS SYRINGE ?? injected via ?? intravenous COMPARISON: 09/17/2023. FINDINGS: LOWER CHEST: ?? Lung bases are predominantly clear. ??There is no pleural effusion. LIVER: ?? Liver size and contour normal. ??No focal hepatic lesion. ??Portal and hepatic veins are patent. GALLBLADDER: ?? No gallstones or overt inflammatory change. BILE DUCTS: ?? No biliary ductal dilation. SPLEEN: ?? Spleen size normal. ??There is a splenule. PANCREAS: ?? No pancreatic mass or inflammatory change. ?? ADRENALS: ?? Normal KIDNEYS/URINARY TRACT: ?? No right renal calculus. ??No left renal calculus. ??No ureteral calculus. ??There is moderate distension of the urinary bladder. ?? GI: ?? No evidence of bowel obstruction. ??The terminal ileum and the appendix are normal. ??The stomach and duodenal are normal. ??There is no pneumatosis. PERITONEUM: ?? No ascites or free air. ??No mesenteric mass or lymphadenopathy. RETROPERITONEUM: ?? Few mesenteric lymph nodes which are not pathologically enlarged. ??There is a fat containing umbilical hernia. REPRODUCTIVE: ?? No retroperitoneal mass or lymphadenopathy. VASCULATURE: ?? Abdominal aorta nonaneurysmal. MUSCULOSKELETAL: ?? Bone windows demonstrate no acute or aggressive osseous abnormality. OTHER: ?? No other abnormality. IMPRESSION: No evidence of an acute abnormality of the abdomen and pelvis. Moderate distension of the urinary bladder. Fat containing umbilical hernia. THIS IS AN ELECTRONICALLY VERIFIED FINAL REPORT 03/20/2024 6:31 AM - Electronically signed by ??Alessio Arango M.D. CH: D: ??03/20/2024 6:31 AM T: ??03/20/2024 6:31 AM Report ID: [id number] Reading Location: ??[id number] Procedure Note Alessio Arango Jr., MD - 03/20/2024 EXAM DESCRIPTION: CT ABDOMEN PELVIS W CONTRAST REASON FOR STUDY: Abdominal infection suspected sided epigastric pain. Pt reports pain is a 9/10, started aprox 30-40minutes prior to coming to the ER. Pt states that he was seen by his PCP last weekfor n/v after eating. Pt states that he also has hx of pancreatitis. Nosurgery Hx of asthma, diabetes, and HTN No hx of cancer TECHNIQUE: CT scan of the abdomen and pelvis performed with intravenousand without oral contrast using helical scanning technique with dynamic intravenous contrast injection. Reconstructed coronal and sagittal MPRimages reviewed. All images stored on PACS. Automated exposure control was usedas a dose optimization technique for this examination. CONTRAST TYPE/DOSE: 100mL of IOVERSOL 350 MG IODINE/ML INTRAVENOUSSYRINGE injected via intravenous COMPARISON: 09/17/2023. FINDINGS: LOWER CHEST: Lung bases are predominantly clear. There is no pleural effusion. LIVER: Liver size and contour normal. No focal hepatic lesion. [place] hepatic veins are patent. GALLBLADDER: No gallstones or overt inflammatory change. BILE DUCTS: No biliary ductal dilation. SPLEEN: Spleen size normal. There is a splenule. PANCREAS: No pancreatic mass or inflammatory change. ADRENALS: Normal KIDNEYS/URINARY TRACT: No right renal calculus. No left renal calculus.No ureteral calculus. There is moderate distension of the urinary bladder. GI: No evidence of bowel obstruction. The terminal ileum and theappendix are normal. The stomach and duodenal are normal. There is nopneumatosis. PERITONEUM: No ascites or free air. No mesenteric mass orlymphadenopathy. RETROPERITONEUM: Few mesenteric lymph nodes which are not pathologically enlarged. There is a fat containing umbilical hernia. REPRODUCTIVE: No retroperitoneal mass or lymphadenopathy. VASCULATURE: Abdominal aorta nonaneurysmal. MUSCULOSKELETAL: Bone windows demonstrate no acute or aggressive osseous abnormality. OTHER: No other abnormality. IMPRESSION: No evidence of an acute abnormality of the abdomen and pelvis. Moderate distension of the urinary bladder. Fat containing umbilical hernia. THIS IS AN ELECTRONICALLY VERIFIED FINAL REPORT 03/20/2024 6:31 AM - Electronically signed by Alessio Arango M.D. CH: LAINA Report ID: [id number] Reading Location: [place] [address] us Aren Gomez MD IMG CT PROCEDURES Final Resu lt * eGFR (03/20/2024 3:08 AM DRILL RUNNER HELPER) eGFR >90 >=60 mL/min/1. 73 m2 Comment: Interpretive Data Reference Interval Normal ?>/= 90 mL/min/1.73m2 Mildly decreased* ? 60 - 89 mL/min/1.73m2 Mildly to moderately decreased ?45 - 59 mL/min/1.73m2 Moderately to severely decreased ??30 - 44 mL/min/1.73m2 Severely decreased ?15 - 29 mL/min/1.73m2 Kidney Failure ?< 15 ??mL/min/1.73m2 *Relative to young adult level Estimated glomerular filtration rate is determined by the 2020 CKD-EPI equation recommended by the National Kidney Foundation (A Unifying Approach to GFR Estimation: Recommendations of the NKF-ASK Task Force on Reassessing the Inclusion of Race in Diagnosing Kidney Disease, JASN 2020). The CKD-EPI equation should not be used for patients with unstable renal function and has not been validated in children and those over 70. Current interpretive data was last reviewed 2021. Blood 03/20/2024 3:08 AM DRILL RUNNER HELPER 03/20/2024 3:18 AM DRILL RUNNER HELPER us Aren Gomez MD LAB BLOOD ORDERABLES Final R esult [facility] ([place]) [facility] Department [place] [address] * Differential, auto (03/20/2024 3:08 AM DRILL RUNNER HELPER) Neutrophil abs 3.4 1.5 - 6.5 K/cumm Imm gran abs 0.1 0.0 - 0.1 K/cumm [facility] ([place]) Lymphocyte abs 3.3 0.8 - 3.3 K/cumm [facility] ([place]) Monocyte abs 0.6 0.2 - 0.8 K/cumm [facility] ([place]) Eosinophil abs 0.1 0.0 - 0.5 K/cumm [facility] ([place]) Basophil abs 0.1 0.0 - 0.1 K/cumm [facility] ([place]) Neutrophil pct 45.3 % [facility] ([place]) Comment: Interpretive Data Percent cell count reference ranges are not reported, since discordance with absolute values may lead to misinterpretation of CBC data. Current Interpretive Data was last revised on 2017. Imm gran pct 1.1 % [facility] ([place]) Comment: Interpretive Data Percent cell count reference ranges are not reported, since discordance with absolute values may lead to misinterpretation of CBC data. Current Interpretive Data was last revised on 2017. Lymphocyte pct 43.6 % [facility] ([place]) Comment: Interpretive Data Percent cell count reference ranges are not reported, since discordance with absolute values may lead to misinterpretation of CBC data. Current Interpretive Data was last revised on 2017. Monocyte pct 7.5 % [facility] ([place]) Comment: Interpretive Data Percent cell count reference ranges are not reported, since discordance with absolute values may lead to misinterpretation of CBC data. Current Interpretive Data was last revised on 2017. Eosinophil pct 1.8 % [facility] ([place]) Comment: Interpretive Data Percent cell count reference ranges are not reported, since discordance with absolute values may lead to misinterpretation of CBC data. Current Interpretive Data was last revised on 2017. Basophil pct 0.7 % [facility] ([place]) Comment: Interpretive Data Percent cell count reference ranges are not reported, since discordance with absolute values may lead to misinterpretation of CBC data. Current Interpretive Data was last revised on 2017. Blood 03/20/2024 3:08 AM DRILL RUNNER HELPER 03/20/2024 3:18 AM DRILL RUNNER HELPER us Aren Gomez MD LAB BLOOD ORDERABLES Final R esult [facility] ([place]) [facility] [place] [address] * CBC with auto differential (03/20/2024 3:08 AM DRILL RUNNER HELPER) WBC 7.6 3.8 - 9.9 K/cumm Hgb 14.3 13.0 - 17.5 g/dL [facility] ([place]) Hct 43.0 38.9 - 50.3 % [facility] ([place]) Plt 328 150 - 400 K/cumm [facility] ([place]) MPV 9.3 9.1 - 12.3 fL [facility] ([place]) RBC 4.99 4.30 - 5.80 M/cumm [facility] ([place]) MCV 86.2 81.3 - 96.4 fL [facility] ([place]) MCH 28.7 27.1 - 33.3 pg [facility] ([place]) MCHC 33.3 32.3 - 35.7 g/dL [facility] ([place]) RDW CV 12.1 11.1 - 14.9 % [facility] ([place]) RDW SD 38.3 35.7 - 48.1 fL [facility] ([place]) NRBC abs 0.00 0.00 - 0.01 K/cumm [facility] ([place]) Blood (Blood, Venous) 03/20/2024 3:08 AM DRILL RUNNER HELPER 03/20/2024 3:18 AM DRILL RUNNER HELPER Aren Gomez MD LAB BLOOD ORDERABLES Final R esult Performing Organization Address City/[facility] Co de Phone Number [facility] ([place]) [address] [facility] [place] [address] * Lipase (03/20/2024 3:08 AM DRILL RUNNER HELPER) Lipase 47 10 - 99 Units/L Blood (Blood, Venous) 03/20/2024 3:08 AM DRILL RUNNER HELPER 03/20/2024 3:18 AM DRILL RUNNER HELPER Aren Gomez MD LAB BLOOD ORDERABLES Final R esult [facility] ([place]) [facility] [place] [employer] [place] [address] * (ABNORMAL) Comprehensive metabolic panel (03/20/2024 3:08 AM DRILL RUNNER HELPER) Sodium 141 135 - 145 mmol/L Potassium, pl 3.8 3.3 - 4.9 mmol/L [facility] ([place]) Chloride 102 97 - 110 mmol/L [facility] ([place]) CO2 23 22 - 32 mmol/L [facility] ([place]) Anion gap 16(H) 2 - 15 mmol/L [facility] ([place]) BUN 9 6 - 25 mg/dL [facility] ([place]) Creatinine 0.79(L) 0.80 - 1.30 mg/dL [facility] ([place]) Glucose 110 70 - 199 mg/dL [facility] ([place]) Comment: Interpretive Data Fasting glucose >/= 126 mg/dl is diagnostic for diabetes. ?? Fasting is defined as no caloric intake for at least 8 hours. Fasting glucose between 100 mg/dl to 125 mg/dl is diagnostic of prediabetes. In a patient with classic symptoms of hyperglycemia or hyperglycemic crisis, a random glucose >/= 200 mg/dl is diagnostic for diabetes. In the absence of unequivocal hyperglycemia, results should be confirmed by repeat testing. The classification and Diagnosis of Diabetes Diabetes Care 2021; 46: S19-S40. Current interpretive data was last revised 2022. Calcium 10.0 8.5 - 10.3 mg/dL [facility] ([place]) Bilirubin, total <0.2 0.1 - 1.2 mg/dL [facility] ([place]) Protein, pl 8.3 6.5 - 8.5 g/dL [facility] ([place]) Albumin 4.9 3.5 - 5.0 g/dL [facility] ([place]) Alk phos 86 40 - 130 Units/L [facility] ([place]) ALT 38 7 - 55 Units/L [facility] ([place]) AST 34 10 - 50 Units/L [facility] ([place]) Comment:Slightly Hemolyzed S pecimen Blood 03/20/2024 3:08 AM DRILL RUNNER HELPER 03/20/2024 3:18 AM DRILL RUNNER HELPER us Aren Gomez MD LAB BLOOD ORDERABLES Final R esult [facility] ([place]) [facility] Department [place] [address] * NM Gastric Emptying Study (01/22/2024 3:16 PM CDT) Anatomical Region Laterality Modality Body N/A Nuclear Medicine 01/22/2024 4:12 PM CDT Narrative 01/22/2024 4:13 PM CDT EXAM DESCRIPTION: ?? [place] GASTRIC EMPTYING STUDY RADIOPHARMACEUTICAL: 500 ??uCi Tc-99m sulfur colloid incorporated into ??eggs ?? p.o. REASON FOR STUDY: ?? Chronic nausea and vomiting. TECHNIQUE: After oral ingestion of the radiolabeled meal, sequential anterior and posterior abdominal images were obtained. COMPARISON: None FINDINGS: At 60 minutes, the residual activity is ??75% ??(normal: 30-90%). At 120 minutes, the residual activity is ??40% ??(normal: less than 60%). At 180 minutes, the residual activity is ??26% ??(normal: less than 30%). At 240 minutes, the residual activity is ??2% ??(normal: less than 10%). IMPRESSION: Normal ??gastric emptying. THIS IS AN ELECTRONICALLY VERIFIED FINAL REPORT 01/22/2024 4:13 PM - Electronically signed by ??Anthony Olguin M.D. LB: PIO D: ??01/22/2024 4:13 PM T: ??01/22/2024 4:13 PM Report ID: [id number] Reading Location: ??[id number] Procedure Note Anthony Olguin MD - 01/22/2024 EXAM DESCRIPTION: [place] GASTRIC EMPTYING STUDY RADIOPHARMACEUTICAL: 500 uCi Tc-99m sulfur colloid incorporated intoeggs p.o. REASON FOR STUDY: Chronic nausea and vomiting. TECHNIQUE: After oral ingestion of the radiolabeled meal, sequentialanterior and posterior abdominal images were obtained. COMPARISON: None FINDINGS: At 60 minutes, the residual activity is 75% (normal: 30-90%). At 120 minutes, the residual activity is 40% (normal: less than 60%). At 180 minutes, the residual activity is 26% (normal: less than 30%). At 240 minutes, the residual activity is 2% (normal: less than 10%). IMPRESSION: Normal gastric emptying. THIS IS AN ELECTRONICALLY VERIFIED FINAL REPORT 01/22/2024 4:13 PM - Electronically signed by Anthony Olguin M.D. LB: PIO Report ID: [id number] Reading Location: [place] [address] [address] Adore Bilderback LIVESTOCK COUNTER IMG NM PROCEDURES F inal Result * Hepatitis panel, acute (09/25/2019 7:23 AM CDT) HepBsAg NONREACT NONREACTIVE [facility] Comment: Siemens CentaurXP using TAMMY (chemiluminescent immunoassay) technology. NONREACTIVE: IgM antibodies to Hepatitis B Surface antigen not detected. REACTIVE: IgM antibodies to Hepatitis B Surface antigen detected. Reactive results will be confirmed by neutralization testing. HBsAb qn 129.36 mIU/mL [facility] Comment: Siemens CentaurXP using TAMMY (chemiluminescent immunoassay) technology. 9.99 IU/L or less.....NONREACTIVE: IgM antibodies to Hepatitis B Surface antibody are not detected. 10.00 IU/L or greater..REACTIVE: IgM antibodies to Hepatitis B Surface antibody are detected. Hep B core IgM NONREACT NONREACTIVE [facility] Comment: Siemens CentaurXP using TAMMY (chemiluminescent immunoassay) technology. NONREACTIVE: IgM antibodies to Hepatitis B Core antigen not detected. EQUIVOCAL: IgM antibodies to Hepatitis B Core antigen may or may not be present. Obtain a ??new specimen and retest. REACTIVE: IgM antibodies to Hepatitis B Core antigen detected. Hep A IgM NONREACT NONREACTIVE [facility] Comment: Siemens CentaurXP using TAMMY (chemiluminescent immunoassay) technology. NONREACTIVE: IgM antibodies to Hepatitis A not detected. This does not exclude possibility of exposure to Hepatitis A or early acute infection. EQUIVOCAL:IgM antibodies to Hepatitis A may or may not be present. Suggest recollection and retest. REACTIVE: Antibodies to Hepatitis A detected. Hep C Ab NONREACT NONREACTIVE [facility] Comment: Siemens CentaurXP using TAMMY (chemiluminescent immunoassay) technology. NONREACTIVE: Antibodies to Hepatitis C not detected. This does not exclude early acute Hepatitis C infection, possibility of exposure to Hepatitis C, antibodies below detection limit, or to lack of antibody reactivity to the antigen used in this assay. EQUIVOCAL: Antibodies to Hepatitis C may or may not be present. ??Sample to be confirmed by real-time PCR method. REACTIVE: Antibodies to Hepatitis C detected.Sample to be confirmed by real-time PCR method. 09/25/2019 7:23 AM CDT 09/25/2019 7:39 AM CDT Narrative Resulting Agency Comment LENORA Anish Solis MD LAB MICROBIOLOGY - GENERAL OR DERABLES Final Result Performing Organization Address [facility] [place] [address], [facility] [phone] * (ABNORMAL) Hemoglobin A1c (09/25/2019 4:25 AM CDT) Hemoglobin A1c % 9.5(H) 4.0 - 5.6 % [facility] Comment: ADA 2016 GUIDELINES: ??Initial Diagnostic Criteria ? HbA1c Result: ?Interpretation: ?<5.7% ? Normal ?5.7-6.4% ?At risk for diabetes mellitus ?>=6.5% ?Consistent with diabetes mellitus ??Diabetes monitoring ? Target value (ADA Recommended) ?? <7% 09/25/2019 4:25 AM CDT 09/25/2019 5:43 AM CDT Narrative Resulting Agency Comment LENORA Anish Solis MD LAB BLOOD ORDERABLES Final Re sult Performing Organization Address [facility] [place] [address], [facility] [phone] * (ABNORMAL) Lipid panel (09/25/2019 4:25 AM CDT) Triglycerides 592(H) 0 - 149 mg/dL [facility] Comment: LDL(measured) to follow due to Triglycerides >250 mg/dL. National Lipid Association/NCEP Guidelines: ?? Normal ?< 150 mg/dL ?? Borderline high ?? 150-199 mg/dL ?? High ?200-499 mg/dL ?? Very High ? >=500 mg/dL Cholesterol 131 0 - 199 mg/dL [facility] Comment: National Lipid Association/NCEP Guidelines: Desirable ? < 200 mg/dL Borderline high: ??200-239 mg/dL High Risk: ?>=240 mg/dL HDL Cholesterol 20 mg/dL [facility] Comment: Reference Ranges: ? Males: >=40 mg/dL ? Females: >=50 mg/dL Cholesterol/HDL Ratio 6.6 [facility] Comment: Optimal ??< 3.5:1 High ? > 5:1 09/25/2019 4:25 AM CDT 09/25/2019 5:43 AM CDT Narrative Resulting Agency Comment LENORA Anish Solis MD LAB BLOOD ORDERABLES Final Re sult Performing Organization Address City/State/[facility] Co de Phone Number [facility] [address] [phone] from Last 3 Months or Most Recently Relevant to Health Maintenance Insurance [facility] ANTHEM ACCESS CHOICE [employer] ANTHEM ACCESS CHOICE Advance Directives For more information, please contact: [phone] * Full Code (Latest Code Status on File) Date Activated Date Inactivated Comments 06/19/2023 7:33 PM 06/21/2023 5:05 PM Care Teams Digital Associate Media Director Relationship Specialty Start Date End Date Griffon, Nikky Kayley, MD [address] [place] [address] [address] [place] [address] PCP - General Family Medicine 03/03/24
--- OUTSIDE RECORDS SUMMARY | 2024-04-04 19:32 | XMS_ITS | Encounter Summary ---
Author Organization [facility] Care Team Providers Care Team Physician Name Role Phone Provider, None Primary Care Provider Unavailabl e Encounter Details Date Type Department Care Team (Latest Contact Info) Description 05/06/2023 Travel Social History Tobacco Use Types Packs/Day Years Used Date Smoking Tobacco: Never Smokeless Tobacco: Never Sex and Gender Information Value Date Recorded Sex Assigned at Not on file Legal Sex Male 11:59 AM SECURITY TESTER Gender Identity Not on file Sexual Orientation Not on file documented as of this encounter Plan of Treatment Not on file documented as of this encounter Visit Diagnoses Not on filedocumented in this encounter Additional Health Concerns Infection Onset Date Last Indicated Resolved Time COVID - 19 05/06/2023 05/06/2023 05/16/2023 12:1 8 AM SECURITY TESTER Respiratory Rule-Out 05/06/2023 05/06/2023 024 12:41 PM SECURITY TESTER documented as of this encounter Care Teams Team Physician Relationship Specialty Start Date End Date Provider, None [place] PCP - General 05/06/23 documented as of this encounter
--- OUTSIDE RECORDS SUMMARY | 2024-04-04 19:32 | XMS_ITS | Encounter Summary ---
Author Organization [facility] Address [address] [place] [address] Phone Care Team Providers Care Bus And Rail Operator Name Role Phone Provider, None Primary Care Provider Unavailabl e Reason for Visit * Reason Comments Shortness of Breath Encounter Details Date Type Department Care Team (Latest Contact Info) Description 05/06/2023 12:30 PM DIGITAL AD TRAFFICKER [facility] [place] [address] [place] [address] Melody Taylor, ERINN, AUTOMOBILE MECHANIC SUPERVISOR [address] [place] [address] Shortness of breath (Primary Dx); Upper respiratory tract infection, unspecified type Discharge Disposition: Discharged to home or Selfcare Social History Tobacco Use Types Packs/Day Years Used Date Smoking Tobacco: Never Smokeless Tobacco: Never Sex and Gender Information Value Date Recorded Sex Assigned at Not on file Legal Sex Male 11:59 AM DIGITAL AD TRAFFICKER Gender Identity Not on file Sexual Orientation Not on file documented as of this encounter Last Filed Vital Signs Vital Sign Reading Time Taken Comments Blood Pressure 130/82 05/06/2023 12:20 PM DIGITAL AD TRAFFICKER Pulse 103 05/06/2023 12:20 PM DIGITAL AD TRAFFICKER Temperature 36.5 ??C (97.7 ??F) 05/06/2023 12:[address] Respiratory Rate 20 05/06/2023 12:20 PM DIGITAL AD TRAFFICKER Oxygen Saturation 98% 05/06/2023 12:20 PM DIGITAL AD TRAFFICKER Inhaled Oxygen Concentration - - Weight 138.3 kg (305 lb) 05/06/2023 12:20 PM DIGITAL AD TRAFFICKER Height 180.3 cm (5' 11 ) 05/06/2023 12:20 PM DIGITAL AD TRAFFICKER Body Mass Index 42.54 05/06/2023 12:20 PM DIGITAL AD TRAFFICKER documented in this encounter Patient Instructions * Patient Instructions* Melody Taylor APRN, CNP - 05/06/2023 12:30 PM DIGITAL AD TRAFFICKER Symptoms are most likely caused from a virus. Antibiotics are not used to treat viruses. Viruses can take up to 7-14 to resolve. Conservative care is recommended at this time: Rest as needed Tylenol or ibuprofen as needed for low grade fevers or body aches. Do not exceed the recommended daily dosage as noted on the package/bottle. Increase fluid intake: this can include water, tea, Gatorade, or Pedialyte. Avoid milk and juice asthese may increase loose stools. Over the counter cough Supressant may be used as may cough drops and throat lozenges. Avoid any over the counter cold medication with a decongestant if you have high blood pressure. If in doubt, ask the pharmacist for help. Cool mist humidifier at night in the bedroom will help with cough and congestion. Follow up with PCP if no improvement in the symptoms, or symptoms worsen. TAL AD TRAFFICKER * Attachments The following attachments cannot be sent through Care Everywhere. * Upper Respiratory Infection Adult [id number] ([place]) documented in this encounter Progress Notes * Haven Louis CMA - 05/06/2023 12:30 PM CST Oscar Rehman complains of Cough,fatigue, and shortness of breath. Symptoms for 2 days. Patient's son is currently positive for covid. Today's Review of Systems Constitutional: Positive for malaise/fatigue. Respiratory: Positive for cough and shortness of breath. TAL AD TRAFFICKER * Melody Taylor APRN, CNP - 05/06/2023 12:30 PM CST HPI: Oscar Rehman is a 37 y.o. male in the [facility] care today for cough, fatigue and shortness of breathfor 2 days. He is weak and fatigued. He denies runny nose and nasal congestion. He has some throat fullness and esr pain. He has not had a fever but has had the chills. His son is positive for Covid and RSV. Symptoms started 2 days ago Severity of symptoms is moderate Symptoms are unchanged Patient is not currently taking over the counter medications for the symptoms. Smoker: No No pertinent Past, family, or social history was noted There is no problem list on file for this patient. ROS: Review of Systems Constitutional: Positive for chills and fatigue. Negative for fever. HENT: Positive for ear pain. Negative for congestion, postnasal drip, rhinorrhea, sinus pressure, sinus pain and sore throat. Eyes: Negative for pain and visual disturbance. Respiratory: Positive for cough and shortness of breath. Negative for wheezing. Cardiovascular: Negative for chest pain and palpitations. Gastrointestinal: Negative for abdominal pain and vomiting. Genitourinary: Negative for dysuria and hematuria. Musculoskeletal: Negative for arthralgias and back pain. Skin: Negative for color change and rash. Neurological: Positive for headaches. Negative for seizures and syncope. Psychiatric/Behavioral: Positive for decreased concentration. All other systems reviewed and are negative. PE: BP 130/82 Pulse 103 Temp 97.7 ??F (36.5 ??C) Resp 20 Ht 5' 11 (1.803 m) Wt 305 lb (138.3kg) SpO2 98% BMI 42.54 kg/m?? Physical Exam Vitals and nursing note reviewed. Constitutional: Appearance: He is normal weight. He is ill-appearing. HENT: Right Ear: Tympanic membrane, ear canal and external ear normal. Left Ear: Tympanic membrane, ear canal and external ear normal. Nose: Nose normal. No congestion or rhinorrhea. Mouth/Throat: Mouth: Mucous membranes are moist. Pharynx: Oropharynx is clear. No oropharyngeal exudate or posterior oropharyngeal erythema. Eyes: Conjunctiva/sclera: Conjunctivae normal. Cardiovascular: Rate and Rhythm: Normal rate and regular rhythm. Pulses: Normal pulses. Heart sounds: Normal heart sounds. Pulmonary: Effort: Pulmonary effort is normal. No respiratory distress. Breath sounds: Normal breath sounds. Musculoskeletal: Cervical back: Normal range of motion. Lymphadenopathy: Cervical: Cervical adenopathy present. Skin: General: Skin is warm and dry. Neurological: Mental Status: He is alert. ASSESSMENT/PLAN: Diagnoses and all orders for this visit: Shortness of breath - POC SARS-COV-2 BY MOLECULAR - POC INFLUENZA A AND B BY MOLECULAR Upper respiratory tract infection, unspecified type Other orders - metFORMIN (GLUCOPHAGE) 1000 MG Tablet; Take 1,000 mg by mouth 2 times daily. - atorvastatin (LIPITOR) 40 MG Tablet - dicyclomine (BENTYL) 10 MG Capsule; TAKE 1 CAPSULE BY MOUTH THREE TIMES A DAY FOR 3 MONTHS NEEDED - amitriptyline (ELAVIL) 10 MG Tablet; TAKE 1 TABLET BY MOUTH EVERY NIGHT AT BEDTIME FOR 1 MONTH(30DAYS) - amLODIPine (NORVASC) 5 MG Tablet; Take 5 mg by mouth daily. - albuterol 108 (90 Base) MCG/ACT Aerosol Solution; take 2 Puffs by inhalation. - pantoprazole (PROTONIX) 40 MG Tablet Delayed Response Patient Instructions Symptoms are most likely caused from a virus. Antibiotics are not used to treat viruses. Viruses can take up to 7-14 to resolve. Conservative care is recommended at this time: Rest as needed Tylenol or ibuprofen as needed for low grade fevers or body aches. Do not exceed the recommended daily dosage as noted on the package/bottle. Increase fluid intake: this can include water, tea, Gatorade, or Pedialyte. Avoid milk and juice asthese may increase loose stools. Over the counter cough Supressant may be used as may cough drops and throat lozenges. Avoid any over the counter cold medication with a decongestant if you have high blood pressure. If in doubt, ask the pharmacist for help. Cool mist humidifier at night in the bedroom will help with cough and congestion. Follow up with PCP if no improvement in the symptoms, or symptoms worsen. Chief complaint and all history documented by ancillary staff were reviewed and verified, with additions or corrections, as appropriate. TAL AD TRAFFICKER documented in this encounter Plan of Treatment Not on file documented as of this encounter Procedures Procedure Name Priority Date/Time Associated Diagnosis Comments POC SARS-COV-2 BY MOLECULAR Routine 05/06/2023 12:26 PM DIGITAL AD TRAFFICKER Shortness of breath POC INFLUENZA A AND B BY MOLECULAR Routine 05/06/2023 9:55 AM DIGITAL AD TRAFFICKER Shortness of breath documented in this encounter Results * POC SARS-COV-2 BY MOLECULAR (05/06/2023 12:26 PM DIGITAL AD TRAFFICKER) SARSCOV2 Negative Negative, INVALID RESULT PROCEDURE CONTROL Valid 05/06/2023 12:2 6 PM DIGITAL AD TRAFFICKER us Silke House PAPER FOLDING MACHINE OPERATOR, AUTOMOBILE MECHANIC SUPERVISOR POINT OF CARE TESTI NG (MANUAL) Final Result * POC INFLUENZA A AND B BY MOLECULAR (05/06/2023 9:55 AM DIGITAL AD TRAFFICKER) INFLUENZA A RNA Negative Negative, Invalid INFLUENZA B RNA Negative Negative, Invalid PROCEDURE CONTROL Valid 05/06/2023 9:55 AM DIGITAL AD TRAFFICKER us Silke House PAPER FOLDING MACHINE OPERATOR, AUTOMOBILE MECHANIC SUPERVISOR POINT OF CARE TESTI NG (MANUAL) Final Result documented in this encounter Visit Diagnoses Diagnosis Shortness of breath- Primary Upper respiratory tract infection, unspecified type documented in this encounter Additional Health Concerns Infection Onset Date Last Indicated Resolved Time COVID - 19 05/06/2023 05/06/2023 05/16/2023 12:1 8 AM DIGITAL AD TRAFFICKER Respiratory Rule-Out 05/06/2023 05/06/2023 024 12:41 PM DIGITAL AD TRAFFICKER documented as of this encounter Care Teams Bus And Rail Operator Relationship Specialty Start Date End Date Provider, None [place] PCP - General 05/06/23 documented as of this encounter
--- OUTSIDE RECORDS SUMMARY | 2024-04-04 19:32 | XMS_ITS | Clinical Summary ---
Author Organization [facility] Address [address] [place] [phone] Phone Care Team Providers Care Neonatal Intensive Care Unit Nurse Name Role Phone Provider, None Primary Care Provider Unavailabl e Allergies Active Allergy Reactions Criticality Noted Date Comments Lisinopril Other (see Comments) 05/06/2023 cough Morphine Other (see Comments),Palpitations High 10/23/2017 Bradycardia. Bradycardia. Medications metFORMIN (GLUCOPHAGE) 1000 MG Tablet Take 1,000 mg by mouth 2 times daily. 03/04/2023 Active atorvastatin (LIPITOR) 40 MG Tablet 10/27/2021 Active dicyclomine (BENTYL) 10 MG Capsule TAKE 1 CAPSULE BY MOUTH THREE TIMES A DAY FOR 3 MONTHS NEEDED 04/23/2023 Active amitriptyline (ELAVIL) 10 MG Tablet TAKE 1 TABLET BY MOUTH EVERY NIGHT AT BEDTIME FOR 1 MONTH(30 DAYS) 04/23/2023 Active amLODIPine (NORVASC) 5 MG Tablet Take 5 mg by mouth daily. 02/05/2023 Active albuterol 108 (90 Base) MCG/ACT Aerosol Solution take 2 Puffs by inhalation. 07/26/2017 Active pantoprazole (PROTONIX) 40 MG Tablet Delayed Response 05/05/2023 Active Social History Tobacco Use Types Packs/Day Years Used Date Smoking Tobacco: Never Smokeless Tobacco: Never Sex and Gender Information Value Date Recorded Sex Assigned at Not on file Legal Sex Male 11:59 AM EQUAL EMPLOYMENT OPPORTUNITY OFFICER Gender Identity Not on file Sexual Orientation Not on file Last Filed Vital Signs Vital Sign Reading Time Taken Comments Blood Pressure 130/82 05/06/2023 12:20 PM EQUAL EMPLOYMENT OPPORTUNITY OFFICER Pulse 103 05/06/2023 12:20 PM EQUAL EMPLOYMENT OPPORTUNITY OFFICER Temperature 36.5 ??C (97.7 ??F) 05/06/2023 12:[address] Respiratory Rate 20 05/06/2023 12:20 PM EQUAL EMPLOYMENT OPPORTUNITY OFFICER Oxygen Saturation 98% 05/06/2023 12:20 PM EQUAL EMPLOYMENT OPPORTUNITY OFFICER Inhaled Oxygen Concentration - - Weight 138.3 kg (305 lb) 05/06/2023 12:20 PM EQUAL EMPLOYMENT OPPORTUNITY OFFICER Height 180.3 cm (5' 11 ) 05/06/2023 12:20 PM EQUAL EMPLOYMENT OPPORTUNITY OFFICER Body Mass Index 42.54 05/06/2023 12:20 PM EQUAL EMPLOYMENT OPPORTUNITY OFFICER Plan of Treatment Health Maintenance Due Date Last Done Comments Hepatitis C Virus (HCV) Screening 1987 TdaP Immunization 1987 Hepatitis B Immunization (1 of 3 - 19+ 3-dose series) 10/21/2006 Influenza Immunization (#1) 2023 01/30/2018 SARS-COV-2 Immunization ( - season) 2023 Respiratory Syncytial Virus (RSV) Immunization (Adult) (1 - 1-dose 75+ series) 10/21/2062 Meningococcal Immunization (ACWY) Aged Out No longer eligible based on patient's age to complete this topic Pneumococcal Immunization Combined Aged Out No longer eligible based on patient's age to complete this topic Rotavirus Immunization Aged Out No lo nger eligible based on patient's age to complete this topic [place] [address] [place] [address] MEDICAID [place] Care Teams Neonatal Intensive Care Unit Nurse Relationship Specialty Start Date End Date Provider, None [place] PCP - General 05/06/23
--- OUTSIDE RECORDS SUMMARY | 2024-04-04 19:33 | XMS_ITS | Encounter Summary ---
Author Organization [facility] Healthcare Address [address] [place] [address] Care Team Providers Care Global Product Manager Name Role Phone Mansih Maldonado MD Primary Care Provider Encounter Details Date Type Department Care Team (Late st Contact Info) Description 04/21/2020 6:33 PM MOVERS - 04/21/2020 10:17 PM MOVERS Emergency [facility] [place] [facility] [address] [place] [address] Unknown, Notinfile Anais Sherman, DISPATCH MANAGER [address] [facility] [address] [address] Discharge Disposition: Discharge to home or self care Social History Tobacco Use Types Packs/Day Years Used Date Smoking Tobacco: Never Smokeless Tobacco: Never Alcohol Use Standard Drinks/Week Comments Yes 0 (1 standard drink = 0.6 oz pur e alcohol) rarely Sex and Gender Information Value Date Recorded Sex Assigned at Not on file Legal Sex Male 7:25 PM MOVERS Gender Identity Not on file Sexual Orientation Not on file documented as of this encounter Last Filed Vital Signs Vital Sign Reading Time Taken Comments Blood Pressure 131/87 04/21/2020 7:02 PM MOVERS Pulse 85 04/21/2020 7:02 PM MOVERS Temperature 36.9 ??C (98.4 ??F) 04/21/2020 7:02 PM CS T Respiratory Rate - - Oxygen Saturation 96% 04/21/2020 7:02 PM MOVERS Inhaled Oxygen Concentration - - Weight 145 kg (319 lb 10.7 oz) 04/21/2020 7:02 P M MOVERS Height 180.3 cm (5' 11 ) 04/21/2020 7:02 PM MOVERS Body Mass Index 44.58 04/21/2020 7:02 PM MOVERS documented in this encounter Medications at Time of Discharge albuterol HFA (PROVENTIL HFA,VENTOLIN HFA,PROAIR HFA) 90 mcg/actuation inhaler TAKE 2 PUFFS BY MOUTH EVERY 6 HOURS NEEDED FOR WHEEZE OR SHORTNESS OF BREATH 06/30/2019 blood sugar diagnostic (ONETOUCH VERIO TEST STRIPS [facility]) OneTouch Verio test strips BD Ultra-Fine Josephine Pen Needle 32 gauge x 5/32 needle USE TO INJECT INSULIN UNDER THE SKIN TWICE DAILY 09/28/2019 2 cetirizine (ZyrTEC) 10 mg tablet Take 1 tablet (10 mg total) by mouth daily 30 tablet 3 10/05/2019 2 HYDROcodone-acetamin ophen (NORCO) 5-325 mg per tablet TAKE 1 TABLET BY MOUTH EVERY 4 HOURS NEEDED FOR PAIN (PAIN SCALE 4 6) 09/28/2019 2 insulin lispro protamin-lispro (HumaLOG 75/25) 100 unit/mL (75-25) insulin pen 09/30/2019 2 lancets 33 gauge [facility] OneTouch Delica Lancets 33 gauge use to test blood glucose twice a day 2 naproxen (ALEVE) 220 mg tablet Take 440 mg by mouth daily as needed 2 ondansetron ODT (ZOFRAN-ODT) 4 mg disintegrating tablet DISSOLVE ONE TABLET UNDER THE TONGUE EVERY 6 HOURS NEEDED 09/28/2019 2 documented as of this encounter Discharge Disposition Disposition Code Departure Means Destination Discharge to home or self care documented in this encounter Plan of Treatment Not on file documented as of this encounter Procedures Procedure Name Priority Date/Time Associated Diagnosis Comments SCAN - LABS 04/22/2020 12:00 AM MOVERS INFLUENZA A/B, RSV, AND COVID-19 PCR Routine 04/21/2020 9:45 PM MOVERS CBC WITH AUTO DIFFERENTIAL Routine 04/21/2020 8:08 PM MOVERS LIPASE Routine 04/21/2020 8:08 PM MOVERS AMYLASE Routine 04/21/2020 8:08 PM MOVERS COMPREHENSIVE METABOLIC PANEL Routine 04/21/2020 8:08 PM MOVERS URINALYSIS, COMPLETE W/REFLEX TO CULTURE Routine 04/21/2020 7:[address] ABDOMEN PELVIS W CONTRAST 04/21/2020 12:00 AM MOVERS documented in this encounter Results * SCAN - LABS (04/22/2020 12:00 AM MOVERS) Narrative 04/22/2020 12:00 AM MOVERS Ordered by an unspecified provider. Historical Provider Final Res ult * Influenza A/B, RSV, and COVID-19 PCR (04/21/2020 9:45 PM MOVERS) Pathologist [facility] Influenza A RNA NEGATIVE NEGATIVE [facility] Influenza B RNA NEGATIVE NEGATIVE [facility] RSV RNA NEGATIVE NEGATIVE [facility] COVID-19 RNA NEGATIVE [facility] Comment: Testing was performed on the [employer] Xpert Xpress SARS-CoV-2 real-time RT-PCR platform under FDA Emergency Use Authorization. ??This test is validated only for appropriately collected nasopharyngeal swab specimens. ??A negative result does not preclude infection with COVID-19 and should not be used as the sole basis for treatment or other patient management decisions. 04/21/2020 9:45 PM MOVERS 04/21/2020 10:13 PM MOVERS Narrative [facility] - 04/21/2020 11:01 PM MOVERS [id number] Yes No Unknown No No Yes FeverMyalgias Scheduled procedure Resulting Agency Comment ER Anais Sherman NP LAB MICROBIOLOGY - GENERAL NAVIN SPENCE Final Result [facility] [address] [place] [address] * Lipase (04/21/2020 8:08 PM MOVERS) Lipase 50 13 - 60 U/L [facility] 04/21/2020 8:08 PM MOVERS 04/21/2020 8:20 PM MOVERS Narrative Resulting Agency Comment ER us Anais Sherman DISPATCH MANAGER LAB BLOOD ORDERABLES Final Resu lt Performing Organization Address [facility]/ZIP Co de Phone Number [address] [phone] * Amylase (04/21/2020 8:08 PM MOVERS) Amylase 78 28 - 100 U/L [facility] 04/21/2020 8:08 PM MOVERS 04/21/2020 8:20 PM MOVERS Narrative Resulting Agency Comment ER us Anais Sherman DISPATCH MANAGER LAB BLOOD ORDERABLES Final Resu lt Performing Organization Address [facility] Co de Phone Number [address] [phone] * Comprehensive metabolic panel (04/21/2020 8:08 PM MOVERS) Sodium 140 135 - 145 mmol/L [facility] Potassium 4.0 3.3 - 5.1 mmol/L [facility] Chloride 101 96 - 108 mmol/L [facility] Carbon Dioxide 28 22 - 32 mmol/L [facility] Anion Gap 11 7 - 16 [facility] Glucose 97 70 - 100 mg/dL [facility] BUN 16 8 - 25 mg/dL [facility] Creatinine 1.0 0.5 - 1.3 mg/dL [facility] Comment: NOTE: Estimated GFR (Cockroft-Gault) will NOT be calculated unless patient Height and Weight were entered. Also, Kidney Disease Stage (GFR) and Estimated GFR (Cockroft-Gault) will NOT be calculated if Creatinine result is <0.2. Kidney Disease Stage >90 mL/MIN [facility] Comment: NOTE; ??The GFR is an estimated value using the creatinine, sex, age, and race of the patient. THE Estimated Kidney Disease GFR is validated for AGES 18-70 YEARS STAGE ?mL/Min ?DESCRIPTION ??1 ?90 mL/min or more ?Normal or elevated GFR ??2 ? 60-89 mL/min ?Mildly decreased GFR ??3 ? 30-59 mL/min ?Moderately decreased GFR ??4 ? 15-29 mL/min ?Severely decreased GFR ??5 ? <15 mL/min ? Kidney failure or on dialysis Est GFR (Cockcroft-G) 155 ml/MIN [facility] Comment: Estimated GFR(Cockroft-Gault)is used to calculate patient medication dosage Calcium 10.1 8.6 - 10.3 mg/dL [facility] Total Protein 8.1 6.4 - 8.3 g/dL [facility] Albumin 5.0 3.5 - 5.0 g/dL [facility] Globulin 3.1 2.3 - 3.5 gm/dL [facility] Albumin/Globulin Ratio 1.6 1.1 - 1.8 [facility] Total Bilirubin <0.2 0.0 - 1.2 mg/dL [facility] AST 25 0 - 40 U/L [facility] ALT 30 0 - 41 U/L [facility] Alkaline Phosphatase 63 40 - 129 U/L [facility] 04/21/2020 8:08 PM MOVERS 04/21/2020 8:20 PM MOVERS Narrative Resulting Agency Comment ER us Anais GanLexy Sherman DISPATCH MANAGER LAB BLOOD ORDERABLES Final Resu lt [facility] [address] [phone] * (ABNORMAL) CBC with auto differential (04/21/2020 8:08 PM MOVERS) WBC 9.6 3.8 - 9.9 X10 3/ul [facility] RBC 5.17 4.30 - 5.80 x10 6/ul [facility] Hemoglobin 14.6 13.0 - 17.5 g/dL [facility] Hct 45.7 38.9 - 50.3 % [facility] MCV 88.4 81.3 - 96.4 fl [facility] MCH 28.2 27.1 - 33.3 pg [facility] MCHC 31.9(L) 32.3 - 35.7 g/dl [facility] RDW 12.5 11.1 - 14.9 % [facility] Plt Count 297 150 - 400 x10 3/ul [facility] MPV 9.7 9.1 - 12.3 fl [facility] Neut % 62.7 % [facility] [employer] [facility] Immature Gran % 0.4 % [place] [facility] Lymph % 27.5 % [facility] E AST - [facility] [place] % 7.6 % [facility] E AST - [employer] Eos % 1.3 % [facility] E AST - [employer] AUTO BASO % 0.5 % [facility] NEUTROPHIL ABS # 6.0 1.7 - 6.5 x10 3/ul [facility] Immature Gran # 0.0 0.0 - 0.1 x10 3/ul [facility] Absolute Lymphs (auto) 2.7 0.8 - 3.3 x10 3/ul [facility] Absolute Monos (auto) 0.7 0.2 - 0.8 x10 3/ul [facility] Absolute Eos (auto) 0.1 0.0 - 0.5 x10 3/ul [facility] BASOPHIL ABS # 0.1 0.0 - 0.1 x10 3/ul [facility] Nucleat RBC Rel Count 0.0 #/100WBC [facility] NRBC abs 0.00 0.00 - 0.01 x10 3/ul [facility] Absolute Neutrophils 6,000 200 - 8,000 /ul [facility] 04/21/2020 8:08 PM MOVERS 04/21/2020 8:20 PM MOVERS Narrative Resulting Agency Comment ER Anais Sherman DISPATCH MANAGER LAB BLOOD ORDERABLES Final Resu lt [address] [phone] * (ABNORMAL) URINALYSIS, COMPLETE W/REFLEX TO CULTURE (04/21/2020 7:52 PM MOVERS) Ur Collection Type CLEAN CATCH [facility] Ur Culture Indicated? C S NOT INDICATED [facility] Urine Color YELLOW YELLOW [facility] Urine Clarity CLEAR CLEAR [facility] Urine Glucose (UA) NORMAL NORMAL mg/dL [facility] Urine Bilirubin NEGATIVE NEGATIVE mg/dl [facility] Urine Ketones NEGATIVE NEGATIVE mg/dL [facility] Ur Specific [place] 1.029(H) 1.005 - 1.025 [facility] Urine Blood 0.2(A) NEGATIVE mg/dl [facility] Urine pH 5.0 5.0 - 8.0 [facility] Urine Protein NEGATIVE NEGATIVE mg/dL [facility] Urine Urobilinogen NORMAL NORMAL mg/dL [facility] Urine Nitrite NEGATIVE NEGATIVE [facility] Ur Leukocyte Esterase NEGATIVE NEGATIVE [place]/ul [facility] Ur Microscopic Review Indicated or Ordered [facility] Urine RBC 0-2 0 - 2 /HPF [facility] Urine WBC 0-5 0 - 2 /HPF [facility] Urine Mucus Present /LPF [facility] 04/21/2020 7:52 PM MOVERS 04/21/2020 8:01 PM MOVERS Narrative [facility] - 04/21/2020 8:19 PM MOVERS Indication(s) for ordering ?? Dysuria mmb Clean catch Resulting Agency Comment ER us Anais Sherman DISPATCH MANAGER LAB URINE ORDERABLES Final Resu lt Performing Organization Address [facility]/State/ZIP Co de Phone Number [facility] [address] [place] [address], [facility] [phone] * CT Abdomen Pelvis W Contrast (04/21/2020 12:00 AM MOVERS) Anatomical Region Laterality Modality Body N/A Computed Tomogra phy 04/21/2020 9:25 PM MOVERS Narrative 04/21/2020 9:30 PM MOVERS Patient Name: AMA BAILEY ?Ordering Dr: Anais Sherman ANP ?? D.O.B: 1985 ? Exam Date: 04/21/20 ?? 0000 ?? Age: 34 ?Sex: Male ? MR#: [id number] ?? Loc: ? RADIOLOGY REPORT ?? Order #[id number] ?? CT Scan ? CT Abd/Pelvis W IV Contrast ? Signed ? EXAM DESCRIPTION: ?? CT Abd/Pelvis W IV Contrast ? REASON FOR STUDY: ?? Upper abdominal pain with nausea and vomiting after ?? eating, diarrhea x3 days ? TECHNIQUE: ??CT scan of the abdomen and pelvis performed with intravenous and ? without oral contrast using helical scanning technique with dynamic ?? intravenous contrast injection. Reconstructed coronal and sagittal MPR images ?? reviewed. All images stored on PACS. ? Automated exposure control was used as a dose optimization technique for this ?? examination. ? CONTRAST TYPE/DOSE: ?? 100 cc Optiray 350 injected via ??right antecubital IV ? COMPARISON: ?? 09/24/2019 ? FINDINGS: ?LOWER CHEST: Lung bases are clear. ??Heart size normal. ??No effusion. ? LIVER/BILIARY: Liver unremarkable. Biliary tree normal in caliber. ? GALLBLADDER: Normal. ? SPLEEN: Normal. ? PANCREAS: Normal. ? ADRENAL GLANDS: Normal. ? KIDNEYS/URINARY TRACT: Normal. ? GI: Stomach and small bowel appear normal. ??Colon and appendix unremarkable. ? OTHER ABDOMINAL/PELVIS: Major vascular structures are grossly patent and ?? normal in caliber. ??No enlarged lymph node or free fluid. ? MSK: Normal. ? IMPRESSION: ??No acute abnormality identified. ??Gallbladder and colon appear ?? normal. ? THIS IS AN ELECTRONICALLY VERIFIED FINAL REPORT ?? 04/21/2020 9:30 PM - Electronically signed by Topher Humphrey M.D. ?? Topher Humphrey M.D. ? AR: AR ?? D: ??04/21/2020 9:30 PM ?? T: ??04/21/2020 9:30 PM ? Report ID: [id number] ?? Reading Location: ??[id number] ? REPORT ELECTRONICALLY SIGNED IN OTHER VENDOR SYSTEM ?? Resulting Agency Comment P Procedure Note Topher Humphrey MD - 04/21/2020 Patient Name: AMA BAILEY Dr: Anais Sherman D.O.B: 1985 Exam Date: 04/21/20 0000 Age: 34 Sex: Male MR#: [id number] Loc: RADIOLOGY REPORT Order #[id number] CT Scan CT Abd/Pelvis W IV Contrast Signed EXAM DESCRIPTION: CT Abd/Pelvis W IV Contrast REASON FOR STUDY: Upper abdominal pain with nausea and vomiting after eating, diarrhea x3 days TECHNIQUE: CT scan of the abdomen and pelvis performed with intravenousand without oral contrast using helical scanning technique with dynamic intravenous contrast injection. Reconstructed coronal and sagittal MPRimages reviewed. All images stored on PACS. Automated exposure control was used as a dose optimization technique forthis examination. CONTRAST TYPE/DOSE: 100 cc Optiray 350 injected via right antecubitalIV COMPARISON: 09/24/2019 FINDINGS: LOWER CHEST: Lung bases are clear. Heart size normal. No effusion. LIVER/BILIARY: Liver unremarkable. Biliary tree normal in caliber. GALLBLADDER: Normal. SPLEEN: Normal. PANCREAS: Normal. ADRENAL GLANDS: Normal. KIDNEYS/URINARY TRACT: Normal. GI: Stomach and small bowel appear normal. Colon and appendixunremarkable. OTHER ABDOMINAL/PELVIS: Major vascular structures are grossly patent and normal in caliber. No enlarged lymph node or free fluid. MSK: Normal. IMPRESSION: No acute abnormality identified. Gallbladder and colonappear normal. THIS IS AN ELECTRONICALLY VERIFIED FINAL REPORT 04/21/2020 9:30 PM - Electronically signed by Topher Humphrey M.D. AR: CE Report ID: [id number] Reading Location: [place] [address] REPORT ELECTRONICALLY SIGNED IN OTHER VENDOR SYSTEM us Anais Sherman DISPATCH MANAGER IMG CT PROCEDURES Final Result documented in this encounter Visit Diagnoses Not on filedocumented in this encounter Care Teams Global Product Manager Relationship Specialty Start Date End Date Manish Maldonado MD PCP - General 11/17/19 11/12/21 documented as of this encounter
--- OUTSIDE RECORDS SUMMARY | 2024-04-04 19:33 | XMS_ITS | Encounter Summary ---
Author Organization [facility] Healthcare Address [address] [place] [address] Care Team Providers Care Shuttle Bus Driver Name Role Phone Starla Parham MD Primary Care Provider [phone] Reason for Visit * Diagnostic Imaging (Routine) - Closed Specialty Diagnoses / Procedures Referred By Contac t Referred To Contact Diagnoses Nausea and vomiting, unspecified vomiting type Gastroesophageal reflux disease, unspecified whether esophagitis present Procedures NM Gastric Emptying Study Rubio Martinez NP [address] [place] [address] Phone: tel: fax: [address] [phone] Referral ID Status Reason Start Date Expiration Date Visits Re quested Visits Authorized [id number] Closed 12/03/2023 01/01/2025 5 1 Encounter Details Date Type Department Care Team (Latest Contact Info) Description 01/22/2024 11:08 AM CDT - 01/22/2024 11:59 PM CDT Hospital Encounter [facility] [address] [place] [address] Discharge Disposition: Discharge to home or self care Social History Tobacco Use Types Packs/Day Years Used Date Smoking Tobacco: Never Smokeless Tobacco: Never Alcohol Use Standard Drinks/Week Comments Yes 0 (1 standard drink = 0.6 oz pur e alcohol) rarely C Utilities Answer Date Recorded In the past 12 months has e electric, gas, oil, or water company threatened to shut off services in your [...] often do you attend chur ch or protestant services? Never 06/20/2023 Do you belong to any clubs o r organizations such as judaism groups, unions, fraternal or athletic groups, or [...] place to sleep or slept in a detention (including now)? No 06/20/2023 Personal Safety Answer Date Recorded Have you ever been in or are you currently in a harmful physical or emotional relationship or is someone making you feel afraid or unsafe? Denies 09/17/2023 Education Answer Date Recorded What is the highest level of school you have completed or the highest degree you have received? Some college, no degree 06/20/2023 Sex and Gender Information Value Date Recorded Sex Assigned at Not on file Legal Sex Male 7:25 PM MONUMENT CARVER Gender Identity Not on file Sexual Orientation Not on file documented as of this encounter Medications at Time of Discharge albuterol HFA (PROVENTIL HFA,VENTOLIN HFA,PROAIR HFA) 90 mcg/actuation inhaler TAKE 2 PUFFS BY MOUTH EVERY 6 HOURS NEEDED FOR WHEEZE OR SHORTNESS OF BREATH 0 amitriptyline (ELAVIL) 25 mg tablet Take 1 tablet (25 mg total) by mouth nightly 90 tablet 3 4 amLODIPine (NORVASC) 5 mg tablet Take 1 tablet (5 mg total) by mouth daily 2 atorvastatin (LIPITOR) 40 mg tablet 2 blood sugar diagnostic (ONETOUCH VERIO TEST STRIPS [facility]) OneTouch Verio test strips cholecalciferol (VITAMIN D-3) 25 mcg (1,000 unit) tablet Take 1 tablet (1,000 Units total) by mouth daily 90 tablet 3 4 12/11/19 25 dicyclomine (BENTYL) 20 mg tabletIndications:I rritable Bowel Syndrome Take 1 tablet (20 mg total) by mouth 4 (four) times a day as needed (abdominal cramping/pain or problematic diarrhea driven by cramping) 120 tablet 3 4 metFORMIN (GLUCOPHAGE) 1,000 mg tablet Take 1 tablet (1,000 mg total) by mouth 2 (two) times a day with meals 2 ondansetron ODT (ZOFRAN-ODT) 4 mg disintegrating tablet Take 1 tablet (4 mg total) by mouth every 6 (six) hours 20 tablet [address] (PROTONIX) 40 mg EC tablet Take 1 tablet (40 mg total) by mouth daily 90 tablet 3 4 polyethylene glycol (MIRALAX) 17 gram/dose bulk powder Take one capful of MiraLax three nights weekly for constipation management. 595 g 1 4 simethicone (MYLICON) 125 mg chewable tablet Take 1 tablet (125 mg total) by mouth 4 (four) times a day as needed (cramping/bloatin g/gas/nausea) 120 tablet 3 4 documented as of this encounter Discharge Disposition Disposition Code Departure Means Destination Discharge to home or self care documented in this encounter Plan of Treatment Not on file documented as of this encounter Procedures Procedure Name Priority Date/Time Associated Diagnosis Comments NM GASTRIC EMPTYING STUDY Schedule Routine, Read Routine (OP Routine) 01/22/2024 3:16 PM CDT Nausea and vomiting, unspecified vomiting type Gastroesophageal reflux disease, unspecified whether esophagitis present documented in this encounter Results * NM Gastric Emptying Study (01/22/2024 3:16 PM CDT) Anatomical Region Laterality Modality Body N/A Nuclear Medicine 01/22/2024 4:12 PM CDT Narrative 01/22/2024 4:13 PM CDT EXAM DESCRIPTION: ?? NM GASTRIC EMPTYING STUDY RADIOPHARMACEUTICAL: 500 ??uCi Tc-99m [...] PM T: ??01/22/2024 4:13 PM Report ID: [id number] Reading Location: ??[id number] Procedure Note Anthony Olguin MD - 01/22/2024 EXAM DESCRIPTION: NM GASTRIC EMPTYING STUDY RADIOPHARMACEUTICAL: 500 uCi Tc-99m [...] Anthony Olguin M.D. LB: PIO Report ID: [id number] Reading Location: [id number] us Rubio Adore Martinez METAL FABRICATOR HELPER IMG NM PROCEDURES F inal Result documented in this encounter Visit Diagnoses Not on filedocumented in this encounter Care Teams Shuttle Bus Driver Relationship Specialty Start Date End Date Starla Parham MD PCP - General Family Medicine 11/13/21 03/02/24 documented as of this encounter
--- OUTSIDE RECORDS SUMMARY | 2024-04-04 19:33 | XMS_ITS | Referral Summary ---
Author Organization [facility] Address [address] [place] [address] Care Team Providers Care Owner Operator Tanker Truck Driver Name Role Phone Nikky Cunningham MD Primary Care Provider Encounters Date Type Department Care Team Description 03/20/2024 2:52 AM [employer] POWER PLANT ENGINEER - 03/20/2024 8:10 AM [employer] CAPT[employer] POWER PLANT ENGINEER Emergency [facility] Emergency Department [address] [place] [id number] Aren Gomez MD Abdominal pain (Primary Dx); Biliary colic Discharge Disposition: Discharge to home or self care 03/03/2024 8:30 AM [employer] CAPTURE POWER PLANT ENGINEER Office Visit [facility] Gastroenterology at [address] [place] [id number] Rubio Martinez NP Irritable bowel syndrome with both constipation and diarrhea (Primary Dx); BRBPR (bright red blood per rectum); Nausea without vomiting; RUQ pain; Erosive esophagitis; Superficial gastritis without hemorrhage, unspecified chronicity; Tubular adenoma of colon; Hepatic steatosis 01/22/2024 11:09 AM CDT - 01/22/2024 11:59 PM CDT Hospital Encounter [address] [address] Discharge Disposition: Discharge to home or self care 01/22/2024 11:08 AM CDT - 01/22/2024 11:59 PM CDT Hospital Encounter [address] [address] Discharge Disposition: Discharge to home or self care 01/22/2024 11:08 AM CDT - 01/22/2024 11:59 PM CDT Hospital Encounter [facility] [address] [place] [address] Discharge Disposition: Discharge to home or self care 01/22/2024 11:08 AM CDT - 01/22/2024 11:59 PM CDT Hospital Encounter [facility] [address] [place] [address] Discharge Disposition: Discharge to home or self care 01/22/2024 11:00 AM CDT - 01/22/2024 11:59 PM CDT Hospital Encounter [address] [address] Nausea and vomiting, unspecified vomiting type; Gastroesophageal reflux disease, unspecified whether esophagitis present Discharge Disposition: Discharge to home or self care from Last 3 Months Allergies Active Allergy Reactions Criticality Noted Date [...] before next visit. Irritable bowel syndrome 07/26/2017 Immunizations Name Administration Dates Next Due Influenza, Quadrivalent, Split, Intramuscular Social History Tobacco Use Types Packs/Day Years Used Date Smoking Tobacco: Never Smokeless Tobacco: Never Tobacco Cessation:Counseling Given: Not Answered Alcohol Use Standard Drinks/Week Comments Yes 0 (1 standard drink = 0.6 oz pur e alcohol) rarely [facility] Utilities Answer Date Recorded In the past 12 months has [employer], gas, oil, or water [employer] threatened to shut off services in your [...] often do you attend chur ch or alevism services? Never 06/20/2023 Do you belong to any clubs o r organizations such as protestant groups, unions, fraternal or athletic groups, or [...] place to sleep or slept in a mcc (including now)? No 06/20/2023 Personal Safety Answer [...] on file Legal Sex Male 7:25 PM [employer]OWER PLANT ENGINEER Gender Identity Not on file Sexual Orientation Not on file Last Filed Vital Signs Vital Sign Reading Time Taken Comments Blood Pressure 151/92 03/20/2024 7:55 AM [employer]OWER PLANT ENGINEER Pulse 88 03/20/2024 7:55 AM [employer] CAPTURE POWER PLANT ENGINEER Temperature 35.8 ??C (96.4 ??F) 03/20/2024 2:55 AM CS T Respiratory Rate 16 03/20/2024 7:55 AM [employer]TURE POWER PLANT ENGINEER Oxygen Saturation 98% 03/20/2024 7:55 AM [employer] CAPTURE POWER PLANT ENGINEER Inhaled Oxygen Concentration - - Weight 140.6 kg (310 lb) 03/20/2024 2:55 AM [employer] CAPTURE POWER PLANT ENGINEER Height 180.3 cm (5' 11 ) 03/03/2024 8:31 AM [employer] POWER PLANT ENGINEER Body Mass Index 43.24 03/03/2024 8:31 AM [employer] CAPTURE POWER PLANT ENGINEER Plan of Treatment Not on file Procedures Procedure Name Priority Date/Time Associated Diagnosis Comments CT ABDOMEN PELVIS W CONTRAST ED 03/20/2024 6:25 AM [employer] POWER PLANT ENGINEER EGFR STAT 03/20/2024 3:08 AM [employer] CAPTURE POWER PLANT ENGINEER DIFFERENTIAL AUTO STAT 03/20/2024 3:0 8 AM [employer] CAP[employer]URE POWER PLANT ENGINEER LIPASE STAT 03/20/2024 3:08 AM [employer] POWER PLANT ENGINEER COMPREHENSIVE METABOLIC PANEL STAT 03/20/2024 3:08 AM [employer] POWER PLANT ENGINEER CBC WITH AUTO DIFFERENTIAL STAT 03/20/2024 3:08 AM CAR[employer] CAPTURE POWER PLANT ENGINEER NM GASTRIC EMPTYING STUDY Schedule Routine, Read [...] Abdomen Pelvis W Contrast (03/20/2024 6:25 AM CAR[employer] CAPTURE POWER PLANT ENGINEER) Anatomical Region Laterality Modality Body N/A Computed Tomogra phy 03/20/2024 6:27 AM [employer] CAPTURE POWER PLANT ENGINEER Narrative 03/20/2024 6:31 AM CARBON CAPTURE POWER PLANT ENGINEER EXAM DESCRIPTION: ?? CT ABDOMEN PELVIS W [...] Electronically signed by ??Alessio Arango M.D. CH: CH D: ??03/20/2024 6:31 AM T: ??03/20/2024 6:31 AM Report ID: [id number] Reading Location: ??[id number] Procedure Note Alessio Arnago Jr., MD - 03/20/2024 EXAM DESCRIPTION: CT [...] Alessio Arango M.D. CH: LAINA Report ID: [id number] Reading Location: [id number] Aren Gomez MD IMG CT PROCEDURES Final Resu lt * eGFR (03/20/2024 3:08 AM [employer]URE POWER PLANT ENGINEER) eGFR >90 >=60 mL/min/1. 73 m2 Comment: [...] last reviewed 2021. Blood 03/20/2024 3:08 AM [employer] CAPTURE POWER PLANT ENGINEER 03/20/2024 3:18 AM [employer] CAPTURE POWER PLANT ENGINEER Aren Gomez MD LAB BLOOD ORDERABLES Final R esult [facility] ([facility]) 1 [facility] [place] [address] * Differential, auto (03/20/2024 3:08 AM CAR[employer]URE POWER PLANT ENGINEER) Neutrophil abs 3.4 1.5 - 6.5 K/cumm Imm gran abs 0.1 0.0 - 0.1 K/cumm [facility] ([place]) Lymphocyte abs 3.3 0.8 - 3.3 K/cumm [facility] ([place]) Monocyte abs 0.6 0.2 - 0.8 K/cumm [facility] ([facility]) Eosinophil abs 0.1 0.0 - 0.5 K/cumm [facility] ([place]) Basophil abs 0.1 0.0 - 0.1 K/cumm [facility] ([facility]) Neutrophil pct 45.3 % [facility] ([place]) Comment: Interpretive Data Percent cell count reference ranges are not reported, since discordance with absolute values may lead to misinterpretation of CBC data. Current Interpretive Data was last revised on 2017. Imm gran pct 1.1 % [facility] ([place]) Comment: Interpretive Data Percent cell count reference [...] revised on 2017. Monocyte pct 7.5 % [facility] ([place]) Comment: Interpretive Data Percent cell count reference ranges are not reported, since discordance with absolute values may lead to misinterpretation of CBC data. Current Interpretive Data was last revised on 2017. Eosinophil pct 1.8 % [facility] ([place]) Comment: Interpretive Data Percent cell count reference [...] revised on 2017. Blood 03/20/2024 3:08 AM [employer]OWER PLANT ENGINEER 03/20/2024 3:18 AM [employer] CAPTURE POWER PLANT ENGINEER Aren Gomez MD LAB BLOOD ORDERABLES Final R esult [facility] ([place]) 1 [facility] [employer] [place] [address] * CBC with auto differential (03/20/2024 3:08 AM CAR[employer] POWER PLANT ENGINEER) WBC 7.6 3.8 - 9.9 K/cumm Hgb [...] (FLY) Blood (Blood, Venous) 03/20/2024 3:08 AM [employer] CAPTURE POWER PLANT ENGINEER 03/20/2024 3:18 AM CARBON CAPTURE POWER PLANT ENGINEER Aren Gomez MD LAB BLOOD ORDERABLES Final R esult [facility] ([place]) 1 [facility] [employer] [place] [address] * Lipase (03/20/2024 3:08 AM [employer] POWER PLANT ENGINEER) Lipase 47 10 - 99 Units/L Blood (Blood, Venous) 03/20/2024 3:08 AM [employer] CAPTURE POWER PLANT ENGINEER 03/20/2024 3:18 AM [employer] CAPTURE POWER PLANT ENGINEER Aren Gomez MD LAB BLOOD ORDERABLES Final R esult [facility] ([facility]) 1 [facility] [place] [address] * (ABNORMAL) Comprehensive metabolic panel (03/20/2024 3:08 AM CAR[employer] CAPTURE POWER PLANT ENGINEER) Sodium 141 135 - 145 mmol/L Potassium, [...] Hemolyzed S pecimen Blood 03/20/2024 3:08 AM CAR[employer]ON [employer]TURE POWER PLANT ENGINEER 03/20/2024 3:18 AM CAR[employer]ON CAPTURE POWER PLANT ENGINEER us Aren Gomez MD LAB BLOOD ORDERABLES Final R esult [facility] ([place]) 1 [facility] [place] [address] * NM Gastric Emptying Study (01/22/2024 3:16 [...] 4:13 PM - Electronically signed by ??Anthony Olguni M.D. LB: PIO D: ??01/22/2024 4:13 PM T: ??01/22/2024 4:13 PM Report ID: [id number] Reading Location: ??[id number] Procedure Note Anthony Olguin MD - 01/22/2024 [...] Electronically signed by Anthony Olguin M.D. LB: LB Report ID: [id number] Reading Location: [id number] us Rubio Adore Bilderback ANIMAL CARE GIVER IMG NM PROCEDURES F inal Result * Hepatitis panel, acute (09/25/2019 7:23 AM CDT) HepBsAg NONREACT NONREACTIVE [facility] Comment: [employer] CentaurXP using TAMMY (chemiluminescent immunoassay) technology. NONREACTIVE: IgM antibodies to Hepatitis B Surface antigen not detected. REACTIVE: IgM antibodies to Hepatitis B Surface antigen detected. Reactive results will be confirmed by neutralization testing. HBsAb qn 129.36 mIU/mL [facility] Comment: Siemens CentaurXP using TAMMY (chemiluminescent immunoassay) technology. 9.99 IU/L or less.....NONREACTIVE: IgM antibodies to Hepatitis B Surface antibody are not detected. 10.00 IU/L or greater..REACTIVE: IgM antibodies to Hepatitis B Surface antibody are detected. Hep B core IgM NONREACT NONREACTIVE [facility] Comment: Siemens CentaurXP using TAMMY (chemiluminescent immunoassay) technology. NONREACTIVE: IgM antibodies to Hepatitis B Core antigen not detected. EQUIVOCAL: IgM antibodies to Hepatitis B Core antigen may or may not be present. Obtain a ??new specimen and retest. REACTIVE: IgM antibodies to Hepatitis B Core antigen detected. Hep A IgM NONREACT NONREACTIVE [facility] Comment: Siemens CentaurXP using TAMMY (chemiluminescent immunoassay) technology. NONREACTIVE: IgM antibodies to Hepatitis A not detected. This does not exclude possibility of exposure to Hepatitis A or early acute infection. EQUIVOCAL:IgM antibodies to Hepatitis A may or may not be present. Suggest recollection and retest. REACTIVE: Antibodies to Hepatitis A detected. Hep C Ab NONREACT NONREACTIVE [facility] Comment: [employer] CentaurXP using TAMMY (chemiluminescent [...] AM CDT Narrative Resulting Agency Comment LENORA us Anish Solis MD LAB MICROBIOLOGY - GENERAL OR DERABLES Final Result Performing Organization Address City/State/[facility] Co de Phone Number [facility] [address] [phone] * (ABNORMAL) Hemoglobin A1c (09/25/2019 4:25 AM CDT) Hemoglobin A1c % 9.5(H) 4.0 - 5.6 % [facility] Comment: ADA 2016 GUIDELINES: ??Initial Diagnostic Criteria ? HbA1c Result: ?Interpretation: ?<5.7% ? Normal ?5.7-6.4% ?At risk for diabetes mellitus ?>=6.5% ?Consistent with diabetes mellitus ??Diabetes monitoring ? Target value (ADA Recommended) ?? <7% 09/25/2019 4:25 AM CDT 09/25/2019 5:43 AM CDT Narrative Resulting Agency Comment LENORA Anish Solis MD LAB BLOOD ORDERABLES Final Re sult Performing Organization Address [facility] Co de Phone Number [address] [phone] * (ABNORMAL) Lipid panel (09/25/2019 4:25 AM CDT) Triglycerides 592(H) 0 - 149 mg/dL [facility] Comment: LDL(measured) to follow due to Triglycerides >250 mg/dL. National Lipid Association/NCEP Guidelines: ?? Normal ?< 150 mg/dL ?? Borderline high ?? 150-199 mg/dL ?? High ?200-499 mg/dL ?? Very High ? >=500 mg/dL Cholesterol 131 0 - 199 mg/dL [facility] Comment: National Lipid Association/NCEP Guidelines: Desirable ? < 200 mg/dL Borderline high: ??200-239 mg/dL High Risk: ?>=240 mg/dL HDL Cholesterol 20 mg/dL [facility] Comment: Reference Ranges: ? Males: >=40 mg/dL ? Females: >=50 mg/dL Cholesterol/HDL Ratio 6.6 [facility] Comment: Optimal ??< 3.5:1 High ? > 5:1 09/25/2019 4:25 AM CDT 09/25/2019 5:43 AM CDT Narrative Resulting Agency Comment LENORA Anish Solis MD LAB BLOOD ORDERABLES Final Re sult [facility] [address] [place] [address], [facility] [phone] from Last 3 Months or Most Recently Relevant to Health Maintenance Insurance [facility] ACCESS CHOICE [facility] ACCESS CHOICE Advance Directives For more information, please contact: [phone] * Full Code (Latest Code Status on File) Date Activated Date Inactivated Comments 06/19/2023 7:33 PM 06/21/2023 5:05 PM Care Teams Owner Operator Tanker Truck Driver Relationship Specialty Start Date End Date Nikky Cunningham MD [address] [place] [address] [address] [place] [address] PCP - General Family Medicine 03/03/24
--- OUTSIDE RECORDS SUMMARY | 2024-04-04 19:33 | XMS_ITS | Encounter Summary ---
Author Organization [facility] Healthcare Address [address] [place] [address] Care Team Providers Care Railroad Baggage Porter Name Role Phone Starla Parham MD Primary Care Provider [phone] Reason for Referral * Diagnostic Imaging (Routine) - Closed Specialty Diagnoses / Procedures Referred By Donavon braswell Referred To Contact Diagnoses Nausea and vomiting, unspecified vomiting type Gastroesophageal reflux disease, unspecified whether esophagitis present Procedures NM Gastric Emptying Study Rubio Martinez NP [address] [place] [address] [address] [place] [address] Phone: tel: fax: [address] [phone] Referral ID Status Reason Start Date Expiration Date Visits Re quested Visits Authorized [id number] Closed 12/03/2023 01/01/2025 5 1 Reason for Visit * Diagnostic Imaging (Routine) - Closed Specialty Diagnoses / Procedures Referred By Donavon braswell Referred To Contact Diagnoses Nausea and vomiting, unspecified vomiting type Gastroesophageal reflux disease, unspecified whether esophagitis present Procedures NM Gastric Emptying Study Rubio Martinez NP [address] [facility] [address] [place] [address] Phone: tel: fax: [address] [phone] Referral ID Status Reason Start Date Expiration Date Visits Re quested Visits Authorized [id number] Closed 12/03/2023 01/01/2025 5 1 Encounter Details Date Type Department Care Team (Latest Contact Info) Description 01/22/2024 11:00 AM CDT - 01/22/2024 11:59 PM CDT Hospital Encounter [facility] [address] [place] [address] Nausea and vomiting, unspecified vomiting type; Gastroesophageal reflux disease, unspecified whether esophagitis present Discharge Disposition: Discharge to home or self care Social History Tobacco Use Types Packs/Day Years Used Date Smoking Tobacco: Never Smokeless Tobacco: Never Alcohol Use Standard Drinks/Week Comments Yes 0 (1 standard drink = 0.6 oz pur e alcohol) rarely [facility] Utilities Answer Date Recorded In the past 12 months has th e electric, gas, oil, or water company [...] often do you attend chur ch or buddhism services? Never 06/20/2023 Do you belong to any clubs o r organizations such as mandaen groups, unions, fraternal or athletic groups, or [...] place to sleep or slept in a residential (including now)? 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 documented in this encounter Plan of Treatment [...] 4:13 PM - Electronically signed by ??Anthony SUERO: PIO D: ??01/22/2024 4:13 PM T: ??01/22/2024 4:13 PM Report ID: [id number] Reading Location: ??[id number] Procedure Note Anthony Olguin MD - 01/22/2024 [...] Anthony Olguin M.D. LB: LB Report ID: [id number] Reading Location: [place] [address] Rubio Adore Juan CHIEF PASSENGER SHIP STEWARD/STEWARDESS IMG NM PROCEDURES F inal Result documented in this encounter Visit Diagnoses Diagnosis Nausea and vomiting, unspecified vomiting type Gastroesophageal reflux disease, unspecified whether esophagitis present documented in this encounter Administered Medications Inactive Administered Medications - up to 3 most recent administrations Medication Order MAR Action Action Date Dose Rate Site tc-99m sulfur colloid egg 0.5 millicurie 0.5 millicurie, oral, Once in imaging, radiopharmaceutical, Starting on Sat01/22/24 at 1224, For 1 dose Given 01/22/2024 11:00 AM CDT 0.5 millicuries documented in this encounter Orders Medications Ordered That Stiven ht Not Have Been Administered Count Last Ordered Date First Ordered Date tc-99m sulfur colloid egg 0.5 millicurie 1 01/22/2024 documented in this encounter Care Teams Railroad Baggage Porter Relationship Specialty Start Date End Date Starla Parham MD PCP - General Family Medicine 11/13/21 03/02/24 documented as of this encounter
--- OUTSIDE RECORDS SUMMARY | 2024-04-04 19:33 | XMS_ITS | Encounter Summary ---
Author Organization [facility] Healthcare Address [address] [place] [id number] Care Team Providers Care Sugar Coating Hand Name Role Phone Starla Parham MD Primary Care Provider [phone] Reason for Visit * Reason Comments Abdominal Pain Encounter Details Date Type Department Care Team (Late st Contact Info) Description 09/17/2023 8:23 PM CDT - 09/17/2023 9:45 PM CDT Emergency [facility] Emergency Department [address] [place] [id number] Abdominal pain (Primary Dx) Discharge Disposition: Discharge to home or self care Social History Tobacco Use Types Packs/Day Years Used Date Smoking Tobacco: Never Smokeless Tobacco: Never Alcohol Use Standard Drinks/Week Comments Yes 0 (1 standard drink = 0.6 oz pur e alcohol) rarely [facility] Utilities Answer Date Recorded In the [...] often do you attend chur ch or zoroastrian services? Never 06/20/2023 Do you belong to any clubs o r organizations such as methodist groups, unions, fraternal or athletic groups, or [...] place to sleep or slept in a long-term (including now)? 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 Gender Identity Not on file Sexual Orientation Not on file documented as of this encounter Last Filed Vital Signs Vital Sign Reading Time Taken Comments Blood Pressure 134/86 09/17/2023 9:30 PM CDT Pulse 84 09/17/2023 9:30 PM CDT Temperature 36.8 ??C (98.2 ??F) 09/17/2023 5:35 PM CD T Respiratory Rate 20 09/17/2023 9:30 PM CDT Oxygen Saturation 97% 09/17/2023 9:30 PM CDT Inhaled Oxygen Concentration - - Weight 138.3 kg (305 lb) 09/17/2023 5:35 PM CDT Height 180.3 cm (5' 11 ) 09/17/2023 5:35 PM CDT Body Mass Index 42.54 09/17/2023 5:35 PM CDT documented in this encounter Discharge Instructions * Discharge Instructions* Karmen Murphy PA - 09/17/2023 9:35 PM CDT You were seen today for evaluation of nausea, vomiting, abdominal pain. Your lab work was reassuring. Your UA showed no UTI. Your CT showed no acute abnormality. As discussed, it was unclear what is causing these symptoms but it was most likely a virus at this time. To help with your symptoms please take omeprazole daily. I have also sent you in Toradol for further pain and Zofran for nausea. I have given you GI to follow up with. Please make an appointment for re- evaluation with them or through with your primary * Attachments The following attachments cannot be sent through Care Everywhere. * Unknown Causes of Abdominal Pain (Male) (Cymro) documented in this encounter Medications at Time of Discharge albuterol HFA (PROVENTIL HFA,VENTOLIN HFA,PROAIR HFA) 90 mcg/actuation inhaler TAKE 2 PUFFS BY MOUTH EVERY 6 HOURS NEEDED FOR WHEEZE OR SHORTNESS OF BREATH 06/30/2019 amLODIPine (NORVASC) 5 mg tablet Take 1 tablet (5 mg total) by mouth daily 11/22/2021 atorvastatin (LIPITOR) 40 mg tablet 11/22/2021 blood sugar diagnostic (ONETOUCH VERIO TEST STRIPS MISC) OneTouch Verio test strips metFORMIN (GLUCOPHAGE) 1,000 mg tablet Take 1 tablet (1,000 mg total) by mouth 2 (two) times a day with meals 11/22/2021 dicyclomine (BENTYL) 20 mg tabletIndications:Ir ritable Bowel Syndrome Take 1 tablet (20 mg total) by mouth daily 30 tablet 01/08/2023 4 ketorolac (TORADOL) 10 mg tablet Take 1 tablet (10 mg total) by mouth every 6 (six) hours as needed for pain 12 tablet 09/17/2023 4 loperamide (IMODIUM) 2 mg capsule Take 1 capsule (2 mg total) by mouth 3 (three) times a day for 7 days 21 capsule 06/21/2023 4 omeprazole (PriLOSEC) 40 mg capsule Take 1 capsule (40 mg total) by mouth daily for 14 days 14 capsule 09/17/2023 4 ondansetron ODT (ZOFRAN-ODT) 4 mg disintegrating tablet Take 1 tablet (4 mg total) by mouth every 8 (eight) hours as needed for nausea or vomiting 20 tablet 09/17/2023 4 documented as of this encounter Ordered Prescriptions Prescription Sig Dispense Quantity Refills Last Filled Start Date End Date omeprazole (PriLOSEC) 40 mg capsule Take 1 capsule (40 mg total) by mouth daily for 14 days 14 capsule 09/17/2023 4 ketorolac (TORADOL) 10 mg tablet Take 1 tablet (10 mg total) by mouth every 6 (six) hours as needed for pain 12 tablet 09/17/2023 4 ondansetron ODT (ZOFRAN-ODT) 4 mg disintegrating tablet Take 1 tablet (4 mg total) by mouth every 8 (eight) hours as needed for nausea or vomiting 20 tablet 09/17/2023 4 documented in this encounter Discharge Disposition Disposition Code Departure Means Destination Comment s Discharge to home or self care documented in this encounter ED Notes * Karmen Murphy PA - 09/17/2023 9:45 PM CDT HPI Chief Complaint Patient presents with Abdominal Pain 37-year-old A&O x4 male patient presents for evaluation of generalized abdominal pain. Ongoing for the past few days, associated with nonbloody emesis. Denies diarrhea, constipation. He endorses low-grade fever, afebrile here. Patient History: Patient Active Problem List Diagnosis Date Noted Sepsis (HCC) 06/20/2023 Sinus tachycardia 06/20/2023 Gastroenteritis 06/19/2023 Hypersomnia 11/29/2021 Restless legs 11/29/2021 Psychophysiological insomnia 11/29/2021 Nonsmoker 11/29/2021 History of COVID-19 11/29/2021 Pulmonary nodule/lesion, solitary 10/05/2019 STACIE (obstructive sleep apnea) 10/05/2019 Essential hypertension 02/05/2019 Type 2 diabetes mellitus without complication (CMS/HCC) (HCC) 07/23/2018 Asthma 07/26/2017 Irritable bowel syndrome 07/26/2017 Past Medical History: Diagnosis Date Asthma Diabetes mellitus (HCC) Hypertension History reviewed. No pertinent surgical history. Family History Problem Relation Age of Onset Cancer Father Cancer Brother Cancer Maternal Grandmother Cancer Maternal Grandfather Social History Tobacco Use Smoking status: Never Smokeless tobacco: Never Vaping Use Vaping status: passive smoke exposure - never smoker Substance and Sexual Activity Alcohol use: Yes Comment: rarely Drug use: Never Sexual activity: Defer Social History Social History Narrative Not on file Review of Systems Review of Systems Gastrointestinal: Positive for abdominal pain. All other systems reviewed and are negative. Physical Exam ED Triage Vitals [09/17/23 1735] Temp Pulse Resp BP SpO2 36.8 ??C (98.2 ??F) 90 18 146/81 100 % Temp src Heart Rate Source Patient Position BP Location FiO2 (%) Temporal -- -- -- -- Height Height Method Weight Weight Method 1.803 m (5' 11 ) Stated (!) 138.3 kg (305 lb) Stated Physical Exam Vitals and nursing note reviewed. Constitutional: Appearance: He is well-developed. HENT: Head: Normocephalic. Cardiovascular: Rate and Rhythm: Normal rate. Heart sounds: Normal heart sounds. Pulmonary: Breath sounds: Normal breath sounds. Abdominal: General: Abdomen is flat. Palpations: Abdomen is soft. Tenderness: There is generalized abdominal tenderness. Skin: General: Skin is warm and dry. Capillary Refill: Capillary refill takes less than 2 seconds. Coloration: Skin is not mottled or pale. Neurological: General: No focal deficit present. Mental Status: He is alert and oriented to person, place, and time. [facility] Medical Decision Making 37-year-old A&O x4 male patient presents for evaluation of generalized abdominal pain. Ongoing for the past 2-3 days. Associated with nonbloody emesis. Denies diarrhea, constipation. Denies dyspnea, chest pain. He endorses a low-grade fever, afebrile here. Denies dysuria, hematuria, pyuria Physical exam shows well-appearing male patient. Skin pink/warm/dry. There is some generalized tenderness to the right upper quadrant. No rebound tenderness. Lungs clear all cruz. No swelling lowerextremities Differential: Gastritis, enteritis, influenza, cystitis, pyelonephritis, nephrolithiasis, spasm Plan: Labs, lipase, UA, CT ED course: Updated patient on workup findings. He was comfortable with discharge at this time. Understands no clear diagnosis. Follow up resources given. Return precautions given. All questions answered at this time Amount and/or Complexity of Data Reviewed Labs: Decision-making details documented in ED Course. Radiology: ordered. Decision-making details documented in ED Course. Risk Prescription drug management. ED Course as of 09/17/23 2353 Time: 09/17 2023 Value: CBC with auto differential: WBC 9.2 Hgb 13.9 Hct 41.8 Plt 284 MPV 9.4 RBC 4.81 MCV 86.9 MCH 28.9 MCHC 33.3 RDW CV 12.6 RDW SD 40.1 NRBC abs 0.00 Comment: unremarkable By: Karmen Murphy PA Time: 09/16 2024 Value: Urinalysis reflex to microscopic and culture Urine: Color, ur Yellow Clarity, ur Clear Specific gravity, ur 1.020 pH, urine 6.5 Protein, ur ql Trace Glucose, ur ql Negative Ketones, ur Negative Bilirubin, ur Negative Blood, ur Negative Urobilinogen, ur <2.0 Nitrite, ur Negative Leukocyte esterase, ur Negative UA reflex comment Reflex conditions for microscopic UA and culture not met. Comment: unremarkable By: Karmen Murphy PA Time: 09/16 2024 Value: Comprehensive metabolic panel(!): Sodium 137 Potassium, pl 4.1 Chloride 100 CO2 24 Anion gap 13 BUN 11 Creatinine 0.72(!) Glucose 87 Calcium 9.5 Bilirubin, total 0.2 Protein, pl 7.9 Albumin 4.5 Alk phos 62 ALT 35 AST 28 Comment: unremarkable By: Karmen Murphy PA Time: 09/16 2128 Value: CT Abdomen Pelvis W Contrast Comment: Negative acute By: Karmen Murphy PA Final diagnoses: Abdominal pain Karmen Murphy PA 09/17/23 [id number] Cosigned by La Hendrix MD at 09/18/2023 2:10 AM CDT * Lucille Barber RN - 09/17/2023 5:35 PM CDT Pt to ED for c/o abdominal pain and vomiting since yesterday. documented in this encounter Plan of Treatment Not on file documented as of this encounter Procedures Procedure Name Priority Date/Time Associated Diagnosis Comments CT ABDOMEN PELVIS W CONTRAST ED 09/17/2023 8:59 PM CDT EGFR STAT 09/17/2023 6:37 PM CDT DIFFERENTIAL AUTO STAT 09/17/2023 6:3 7 PM CDT URINALYSIS AND REFLEX TO MICROSCOPIC AND CULTURE STAT 09/17/2023 6:37 PM CDT CBC WITH AUTO DIFFERENTIAL STAT 09/17/2023 6:37 PM CDT LIPASE STAT 09/17/2023 6:37 PM CDT COMPREHENSIVE METABOLIC PANEL STAT 09/17/2023 6:37 PM CDT documented in this encounter Results * CT Abdomen Pelvis W Contrast (09/17/2023 8:59 PM CDT) Anatomical Region Laterality Modality Body N/A Computed Tomogra phy 09/17/2023 9:20 PM CDT Narrative 09/17/2023 9:25 PM CDT EXAM DESCRIPTION: ?? CT ABDOMEN PELVIS W CONTRAST REASON FOR STUDY: ?? Abdominal pain, acute, nonlocalized ?? Pt to ED for c/o abdominal pain and vomiting since yesterday. GFR is greater than 90 ?? TECHNIQUE: CT scan of the abdomen [...] SYRINGE ?? injected via ?? intravenous COMPARISON: ?? 06/19/2023 FINDINGS: LOWER CHEST: ?? No significant pulmonary abnormalities. No effusion. LIVER: ?? Normal size. ??No identified cystic or solid masses. GALLBLADDER: ?? Normally distended BILE DUCTS: ?? No intrahepatic or extrahepatic ductal dilatation. SPLEEN: ?? Normal size. ??No focal lesions. PANCREAS: ?? No identified cystic or solid masses. No significant calcifications. No adjacent inflammation or peripancreatic fluid collections. Pancreatic duct not dilated. ?? ADRENALS: ?? Normal. KIDNEYS/URINARY TRACT: ?? No identified significant cystic or solid masses. No visualized stones. No hydronephrosis or hydroureter. Symmetric enhancement. ? Urinary bladder is unremarkable. GI: ?? No dilated bowel loops. No obvious wall thickening. ??Normal appendix. ?? No significant diverticular disease. PERITONEUM: ?? No ascites or free air. RETROPERITONEUM: ?? No mass or adenopathy. REPRODUCTIVE: ?? No significant abnormality. VASCULATURE: ?? No abdominal aortic aneurysm. MUSCULOSKELETAL: ?? No significant abnormality. OTHER: ?? No other abnormality. IMPRESSION: No acute finding. THIS IS AN ELECTRONICALLY VERIFIED FINAL REPORT 09/17/2023 9:25 PM - Electronically signed by ??Marquis Cedillo M.D. RB: AB D: ??09/17/2023 9:25 PM T: ??09/17/2023 9:25 PM Report ID: [id number] Reading Location: ??[id number] Procedure Note Marquis Cedillo MD - 09/17/2023 EXAM DESCRIPTION: CT ABDOMEN PELVIS W CONTRAST REASON FOR STUDY: Abdominal pain, acute, nonlocalized Pt to ED for c/o abdominal pain and vomiting since yesterday. GFR isgreater than 90 TECHNIQUE: CT scan of the abdomen and pelvis performed with intravenousand without oral contrast using helical scanning technique with dynamic intravenous contrast injection. Reconstructed coronal and sagittal MPRimages reviewed. All images stored on PACS. Automated exposure control was usedas a dose optimization technique for this examination. CONTRAST TYPE/DOSE: 100mL of IOVERSOL 350 MG IODINE/ML INTRAVENOUSSYRINGE injected via intravenous COMPARISON: 06/19/2023 FINDINGS: LOWER CHEST: No significant pulmonary abnormalities. No effusion. LIVER: Normal size. No identified cystic or solid masses. GALLBLADDER: Normally distended BILE DUCTS: No intrahepatic or extrahepatic ductal dilatation. SPLEEN: Normal size. No focal lesions. PANCREAS: No identified cystic or solid masses. No significant calcifications. No adjacent inflammation or peripancreatic fluidcollections. Pancreatic duct not dilated. ADRENALS: Normal. KIDNEYS/URINARY TRACT: No identified significant cystic or solid masses.No visualized stones. No hydronephrosis or hydroureter. Symmetricenhancement. Urinary bladder is unremarkable. GI: No dilated bowel loops. No obvious wall thickening. Normalappendix. No significant diverticular disease. PERITONEUM: No ascites or free air. RETROPERITONEUM: No mass or adenopathy. REPRODUCTIVE: No significant abnormality. VASCULATURE: No abdominal aortic aneurysm. MUSCULOSKELETAL: No significant abnormality. OTHER: No other abnormality. IMPRESSION: No acute finding. THIS IS AN ELECTRONICALLY VERIFIED FINAL REPORT 09/17/2023 9:25 PM - Electronically signed by Marquis Cedillo M.D. RB: AB Report ID: [id number] Reading Location: [place] [address] PROCEDURES Final Result * eGFR (09/17/2023 6:37 PM CDT) eGFR >90 >=60 mL/min/1. 73 m2 Comment: [...] interpretive data was last reviewed 2021. Blood 09/17/2023 6:37 PM CDT 09/17/2023 6:40 PM CDT us Farnaz Jaquez MD LAB BLOOD ORDERABLES Fin al Result [facility] ([place]) [facility] Department [place] [address] * Differential, auto (09/17/2023 6:37 PM CDT) Neutrophil abs 6.0 1.5 - 6.5 K/cumm Imm gran abs 0.1 0.0 - 0.1 K/cumm [facility] ([place]) Lymphocyte abs 2.2 0.8 - 3.3 K/cumm [facility] ([place]) Monocyte abs 0.8 0.2 - 0.8 K/cumm [facility] ([place]) Eosinophil abs 0.1 0.0 - 0.5 K/cumm [facility] ([place]) Basophil abs 0.1 0.0 - 0.1 K/cumm [facility] ([place]) Neutrophil pct 65.3 % [facility] ([place]) Comment: Interpretive Data Percent cell count reference ranges are not reported, since discordance with absolute values may lead to misinterpretation of CBC data. Current Interpretive Data was last revised on 2017. Imm gran pct 0.9 % [facility] ([place]) Comment: Interpretive Data Percent cell count reference ranges are not reported, since discordance with absolute values may lead to misinterpretation of CBC data. Current Interpretive Data was last revised on 2017. Lymphocyte pct 23.6 % [facility] ([place]) Comment: Interpretive Data Percent cell count reference ranges are not reported, since discordance with absolute values may lead to misinterpretation of CBC data. Current Interpretive Data was last revised on 2017. Monocyte pct 8.7 % [facility] ([place]) Comment: Interpretive Data Percent cell count reference ranges are not reported, since discordance with absolute values may lead to misinterpretation of CBC data. Current Interpretive Data was last revised on 2017. Eosinophil pct 0.8 % [facility] ([place]) Comment: Interpretive [...] Data was last revised on 2017. Blood 09/17/2023 6:37 PM CDT 09/17/2023 6:40 PM CDT us Farnaz Jaquez MD LAB BLOOD ORDERABLES Fin al Result [facility] ([place]) 1 [facility] of Laboratories [place] [id number] * Urinalysis reflex to microscopic and culture Urine (09/17/2023 6:37 PM CDT) Color, ur Yellow Yellow Clarity, ur Clear Clear [facility] ([place]) Specific gravity, ur 1.020 1.003 - 1.030 [facility] ([place]) pH, urine 6.5 [facility] ([place]) Comment: Interpretive Data ? Urine pH is affected by diet, medications, systemic acid-base disturbances, and renal tubular function. ??pH may affect urinary stone formation. ??For example, urine pH below 6.0 may help reduce the tendency for calcium phosphate stones and pH greater than 6.0 may reduce the tendency for uric acid stone formation. Source: [facility] [employer] Current Interpretive Data was last revised on 2017 Protein, ur ql Trace Negative [facility] ([place]) Glucose, ur ql Negative Negative [facility] ([place]) Ketones, ur Negative Negative [facility] ([place]) Bilirubin, ur Negative Negative [facility] ([place]) Blood, ur Negative Negative [facility] ([place]) Urobilinogen, ur <2.0 <2.0 mg/dL [facility] ([place]) Nitrite, ur Negative Negative [facility] Leukocyte esterase, ur Negative Negative [facility] ([place]) UA reflex comment Reflex conditions for microscopic UA and culture not met. [facility] ([place]) Urine 09/17/2023 6:37 PM CDT 09/17/2023 6:40 PM CDT Farnaz Jaquez MD LAB MICROBIOLOGY - GENER AL ORDERABLES Final Result Performing Organization Address [facility]/ZIP Co de Phone Number [facility] ([place] 1 [facility] [place] [address] * Lipase (09/17/2023 6:37 PM CDT) Pathologist [facility] Lipase 29 10 - 99 Units/L Blood (Blood, Venous) 09/17/2023 6:37 PM CDT 09/17/2023 6:40 PM CDT Farnaz Jaquez MD LAB BLOOD ORDERABLES Fin al Result Performing Organization Address [facility] de Phone Number [facility] ([place] [address] [facility] [place] [address] * (ABNORMAL) Comprehensive metabolic panel (09/17/2023 6:37 PM CDT) Sodium 137 135 - 145 mmol/L Potassium, pl 4.1 3.3 - 4.9 mmol/L [facility] ([place]) Chloride 100 97 - 110 mmol/L [facility] ([place]) CO2 24 22 - 32 mmol/L [facility] ([place]) Anion gap 13 2 - 15 mmol/L [facility] ([place]) BUN 11 6 - 25 mg/dL [facility] ([place]) Creatinine 0.72(L) 0.80 - 1.30 mg/dL [facility] ([place]) Glucose 87 70 - 199 mg/dL [facility] ([place]) Comment: Interpretive Data Fasting glucose >/= [...] interpretive data was last revised 2022. Calcium 9.5 8.5 - 10.3 mg/dL [facility] ([place]) Bilirubin, total 0.2 0.1 - 1.2 mg/dL [facility] ([place]) Protein, pl 7.9 6.5 - 8.5 g/dL [facility] ([place]) Albumin 4.5 3.5 - 5.0 g/dL [facility] ([place]) Alk phos 62 40 - 130 Units/L [facility] ([place]) ALT 35 7 - 55 Units/L [facility] ([place]) AST 28 10 - 50 Units/L [facility] ([place]) Comment:Slightly Hemolyzed S pecimen Blood 09/17/2023 6:37 PM CDT 09/17/2023 6:40 PM CDT us Farnaz Jaquez MD LAB BLOOD ORDERABLES Fin al Result [facility] ([place]) [facility] Department [place] [address] * CBC with auto differential (09/17/2023 6:37 PM CDT) WBC 9.2 3.8 - 9.9 K/cumm Hgb 13.9 13.0 - 17.5 g/dL [facility] ([place]) Hct 41.8 38.9 - 50.3 % [facility] ([place]) Plt 284 150 - 400 K/cumm [facility] ([place]) MPV 9.4 9.1 - 12.3 fL [facility] ([place]) RBC 4.81 4.30 - 5.80 M/cumm [facility] ([place]) MCV 86.9 81.3 - 96.4 fL [facility] ([place]) MCH 28.9 27.1 - 33.3 pg [facility] ([place]) MCHC 33.3 32.3 - 35.7 g/dL [facility] ([place]) RDW CV 12.6 11.1 - 14.9 % [facility] ([place]) RDW SD 40.1 35.7 - 48.1 fL [facility] ([place]) NRBC abs 0.00 0.00 - 0.01 K/cumm [facility] ([place]) Blood (Blood, Venous) 09/17/2023 6:37 PM CDT 09/17/2023 6:40 PM CDT us Farnaz Jaquez MD LAB BLOOD ORDERABLES Fin al Result [facility] ([place] Department [place] [address] documented in this encounter Visit Diagnoses Diagnosis Abdominal pain- Primary Abdominal pain, unspecified site documented in this encounter Administered Medications Inactive Administered Medications - up to 3 most recent administrations Medication Order MAR Action Action Date Dose Rate Site ioversoL (OPTIRAY 350) syringe 100 mL 100 mL, intravenous, Once in imaging, contrast, Starting on Sat09/17/23 at 2056, For 1 dose Contrast Given 09/17/2023 8:54 PM CDT 100 mL ketorolac (TORADOL) 30 mg/mL injection 30 mg 30 mg, intravenous, Once, On Sat09/17/23 at 2032, For 1 dose, For Adult IV push, administer over 15 seconds Given 09/17/2023 8:37 PM CDT 30 mg ondansetron (ZOFRAN) injection 4 mg 4 mg, intravenous, Administer over 2 Minutes, Once, On Sat09/17/23 at 2032, For 1 dose Given 09/17/2023 8:37 PM CDT 4 mg documented in this encounter Discontinued Medications Medication Sig Discontinue Reason Start Date End Da te pantoprazole DR (PROTONIX) 40 mg EC tablet Take 1 tablet (40 mg total) by mouth nightly 09/17/2023 documented as of this encounter Active and Recently Administered Medications Times are shown in CDT. Scheduled Medication Order 09/15/2023 09/16/2023 09/17/2023 ketorolac (TORADOL) 30 mg/mL injection 30 mg (COMPLETED) 30 mg, intravenous, Once, On Sat09/17/23 at 2032, For 1 dose, For Adult IV push, administer over 15 seconds 2036 (Given - Provid er: Nikky Mcclure, RN) ondansetron (ZOFRAN) injection 4 mg (COMPLETED) 4 mg, intravenous, Administer over 2 Minutes, Once, On Sat09/17/23 at 2032, For 1 dose 2036 (Given - Provid er: Nikky Mcclure, JOVANNY) PRN Medication Order 09/15/2023 09/16/2023 09/17/2023 ioversoL (OPTIRAY 350) syringe 100 mL (COMPLETED) 100 mL, intravenous, Once in imaging, contrast, Starting on Sat09/17/23 at 2056, For 1 dose 2053 (Contrast Given - Provider: Karina Guerra RT) documented in this encounter Orders IV Count Last Ordered Date First Orde red Date SALINE LOCK IV 1 09/17/2023 documented in this encounter Care Teams Sugar Coating Hand Relationship Specialty Start Date End Date Starla Parham MD PCP - General Family Medicine 11/13/21 03/02/24 documented as of this encounter
--- OUTSIDE RECORDS SUMMARY | 2024-04-04 19:33 | XMS_ITS | Encounter Summary ---
Author Organization [facility] Healthcare Address [address] [place] [address] Care Team Providers Care Fork Operator Name Role Phone Manish Maldonado MD Primary Care Provider Encounter Details Date Type Department Care Team (Late st Contact Info) Description 10/26/2019 1:18 PM CDT - 10/26/2019 11:59 PM CDT Hospital Encounter [facility] Anurag Olivares MD [address] [facility] [address] [address] Discharge Disposition: Discharge to home or self care Social History Tobacco Use Types Packs/Day Years Used Date Smoking Tobacco: Never Smokeless Tobacco: Never Alcohol Use Standard Drinks/Week Comments Yes 0 (1 standard drink = 0.6 oz pur e alcohol) rarely Sex and Gender Information Value Date Recorded Sex Assigned at Not on file 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[employer] Gender Identity Not on file Sexual Orientation Not on file documented as of this encounter Medications at Time of Discharge albuterol HFA (PROVENTIL HFA,VENTOLIN HFA,PROAIR HFA) 90 mcg/actuation inhaler TAKE 2 PUFFS BY MOUTH EVERY 6 HOURS NEEDED FOR WHEEZE OR SHORTNESS OF BREATH 06/30/2019 blood sugar diagnostic (ONETOUCH VERIO TEST STRIPS [facility]) OneTouch Verio test strips BD Ultra-Fine Josephine [...] insulin pen 09/30/2019 2 lancets 33 gauge misc OneTouch Delica Lancets 33 gauge use to [...] on filedocumented in this encounter Care Teams Fork Operator Relationship Specialty Start Date End Date Manish Maldonado MD PCP - General 09/28/19 11/16/19 documented as of this encounter
--- OUTSIDE RECORDS SUMMARY | 2024-04-04 19:33 | XMS_ITS | Encounter Summary ---
Author Organization [facility] Healthcare Address [address] [place] [address] Care Team Providers Care Train Station Server Name Role Phone Starla Parham MD Primary Care Provider [phone] Reason for Visit * Diagnostic Imaging (Routine) - Closed Specialty Diagnoses / Procedures Referred By Contac t Referred To Contact Diagnoses Nausea and vomiting, unspecified vomiting type Gastroesophageal reflux disease, unspecified whether esophagitis present Procedures NM Gastric Emptying Study Rubio Martinez NP [address] [place] [address] Phone: tel: fax: [address] [phone] Referral ID Status Reason Start Date Expiration Date Visits Re quested Visits Authorized [id number] Closed 12/03/2023 01/01/2025 5 1 Encounter Details Date Type Department Care Team (Latest Contact Info) Description 01/22/2024 11:08 AM CDT - 01/22/2024 11:59 PM CDT Hospital Encounter [facility] [address] [place] [id number] Discharge Disposition: Discharge to home or self [...] often do you attend chur ch or roman catholic services? Never 06/20/2023 Do you belong to any clubs o r organizations such as buddhism groups, unions, fraternal or athletic groups, or [...] place to sleep or slept in a [place] facility (including now)? 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 LB: PIO Report ID: [id number] Reading Location: [id number] us Rubio Adore Martinez SENIOR CLINICAL STUDY MANAGER IMG NM PROCEDURES F inal Result documented in this encounter Visit Diagnoses Not on filedocumented in this encounter Care Teams Train Station Server Relationship Specialty Start Date End Date Starla Parham MD PCP - General Family Medicine 11/13/21 03/02/24 documented as of this encounter
--- OUTSIDE RECORDS SUMMARY | 2024-04-04 19:33 | XMS_ITS | Encounter Summary ---
Author Organization [facility] Address [address] [place] [address] Care Team Providers Care Director Insurance Name Role Phone Manish Maldonado MD Primary Care Provider Reason for Referral * Diagnostic Imaging (Routine) - Closed Specialty Diagnoses / Procedures Referred By Contac t Referred To Contact Diagnoses Pulmonary nodule/lesion, solitary Procedures CT Chest WO Contrast Manish Maldonado MD Phone: tel: fax: External Order Referral ID Status Reason Start Date Expiration Date Visits Re quested Visits Authorized [id number] Closed 10/05/2019 04/15/2021 1 1 Reason for Visit * Reason Comments New Patient Encounter Details Date Type Department Care Team ([facility] Contact Info) Description 10/05/2019 1:00 PM CDT Office Visit [facility] Pulmonology [address] [place] [address] Manish Maldonado MD [address] [facility] [address] [place] [address] Asthma (Primary Dx); Pulmonary nodule/lesion, solitary; STACIE (obstructive sleep apnea) Social History Tobacco Use Types Packs/Day Years Used Date Smoking Tobacco: Never Smokeless Tobacco: Never Alcohol Use Standard Drinks/Week Comments Yes 0 (1 standard drink = 0.6 oz pur e alcohol) rarely Sex and Gender Information Value Date Recorded Sex Assigned at Not on file 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 Gender Identity Not on file Sexual Orientation Not on file documented as of this encounter Last Filed Vital Signs Vital Sign Reading Time Taken Comments Blood Pressure 122/100 10/05/2019 1:01 PM CDT Pulse 100 10/05/2019 1:01 PM CDT Temperature 36.1 ??C (97 ??F) 10/05/2019 1:01 PM CDT Respiratory Rate 22 10/05/2019 1:01 PM CDT Oxygen Saturation 97% 10/05/2019 1:01 PM CDT Inhaled Oxygen Concentration - - Weight 151.5 kg (334 lb) 10/05/2019 1:01 PM CDT Height - - Body Mass Index 46.58 09/28/2019 11:42 AM CDT documented in this encounter Ordered Prescriptions Prescription Sig Dispense Quantity Refills Last Filled Start Date End Date cetirizine (ZyrTEC) 10 mg tablet Take 1 tablet (10 mg total) by mouth daily 30 tablet 3 10/05/2019 11/29/2021 cetirizine (ZyrTEC) 10 mg tablet Take 1 tablet (10 mg total) by mouth daily 30 tablet 3 10/05/2019 10/05/2019 documented in this encounter Progress Notes * Manish Maldonado MD - 10/05/2019 1:00 PM CDT Progress Note Patient: Oscar Rehman ( - 1985) is a 33 y.o. male. Visit Date: 10/05/2019 I am seeing this patient in consultation for asthma, suspected obstructive sleep apnea and pulmonary nodule Chief Complaint Patient presents with ??? New Patient History of Present Illness: Patient is a 33-year-old man with past medical history of asthma, obesity, diabetes mellitus type 2who was admitted in August 2019 with right upper quadrant abdominal pain. Patient underwent a CT scanof the abdomen and pelvis for evaluation of abdominal pain which showed 4 mm nodule within the posterior aspect of the right lower lobe (axial image 36 of 217), not present on prior CT. Patient was diagnosed with asthma as a child and uses albuterol inhaler on as needed basis. He is alifetime nonsmoker. He has 1 dog at home. Family history significant for lung cancer in his father at the age of 55. Patient complains of intermittent cough but denies any wheezing. He does complain of postnasal drip. He denies any acid reflux. He denies any pedal edema, PND orthopnea. Patient does snore and complains of daytime sleepiness. He complains of generalized fatigue. He is being referred for further evaluation management. Past Medical History: Past Medical History: Diagnosis Date ??? Asthma ??? Hypertension Surgical History: History reviewed. No pertinent surgical history. Current Medications: Current Outpatient Medications Medication Sig Dispense Refill ??? albuterol HFA (PROVENTIL HFA,VENTOLIN HFA,PROAIR HFA) 90 mcg/actuation inhaler TAKE 2 PUFFS BY MOUTH EVERY 6 HOURS NEEDED FOR WHEEZE OR SHORTNESS OF BREATH ??? BD Ultra-Fine Josephine Pen Needle 32 gauge x 5/32 needle USE TO INJECT INSULIN UNDER THE SKIN TWICE DAILY ??? blood sugar diagnostic (ONETOUCH VERIO TEST STRIPS [facility]) OneTouch Verio test strips ??? HYDROcodone-acetaminophen (NORCO) 5-325 mg per tablet TAKE 1 TABLET BY MOUTH EVERY 4 HOURS NEEDED FOR PAIN (PAIN SCALE 4 6) ??? insulin lispro protamin-lispro (HumaLOG 75/25) 100 unit/mL (75-25) insulin pen ??? lancets 33 gauge [facility] [place] OneTouch Delica Lancets 33 gauge use to test blood glucose twice a day ??? naproxen (ALEVE) 220 mg tablet Take 440 mg by mouth daily as needed ??? ondansetron ODT (ZOFRAN-ODT) 4 mg disintegrating tablet DISSOLVE ONE TABLET UNDER THE TONGUE EVERY 6 HOURS NEEDED ??? cetirizine (ZyrTEC) 10 mg tablet Take 1 tablet (10 mg total) by mouth daily 30 tablet 3 No current facility-administered medications for this visit. Allergies: Allergies Allergen Reactions ??? Morphine Palpitations and Other (See comments) Bradycardia. Family History: Family History Problem Relation Age of Onset ??? Cancer Father ??? Cancer Brother ??? Cancer Maternal Grandmother ??? Cancer Maternal Grandfather Social History: Social History Socioeconomic History ??? Marital status: Single Spouse name: None ??? Number of children: None ??? Years of education: None ??? Highest education level: None Occupational History ??? None Social Needs ??? Financial resource strain: None ??? Food insecurity Worry: None Inability: None ??? Transportation needs Medical: None Non-medical: None Tobacco Use ??? Smoking status: Never Smoker ??? Smokeless tobacco: Never Used Substance and Sexual Activity ??? Alcohol use: Yes Comment: rarely ??? Drug use: Never ??? Sexual activity: Defer Lifestyle ??? Physical activity Days per week: None Minutes per session: None ??? Stress: None Relationships ??? Social connections Talks on phone: None Gets together: None Attends adventist service: None Active member of club or organization: None Attends meetings of clubs or organizations: None Relationship status: None ??? Intimate partner violence Fear of current or ex partner: None Emotionally abused: None Physically abused: None Forced sexual activity: None Other Topics Concern ??? None Social History Narrative ??? None Review of Systems: Review of Systems Constitutional: Negative for activity change, appetite change, chills, diaphoresis, fatigue, fever and unexpected weight change. HENT: Negative for congestion, nosebleeds, postnasal drip, rhinorrhea, sinus pressure, sinus pain, sneezing, trouble swallowing and voice change. Eyes: Negative for discharge and itching. Respiratory: Positive for cough. Negative for apnea, choking, chest tightness, shortness of breath,wheezing and stridor. Cardiovascular: Negative for chest pain, palpitations and leg swelling. Gastrointestinal: Negative for abdominal distention and abdominal pain. Endocrine: Negative for cold intolerance, heat intolerance, polydipsia, polyphagia and polyuria. Genitourinary: Negative for difficulty urinating, dysuria and enuresis. Musculoskeletal: Negative for arthralgias, back pain and gait problem. Allergic/Immunologic: Negative for environmental allergies, food allergies and immunocompromised state. Neurological: Negative for speech difficulty, light-headedness and numbness. Hematological: Negative for adenopathy. Does not bruise/bleed easily. Psychiatric/Behavioral: Negative for agitation, behavioral problems, confusion and sleep disturbance. Physical Exam: Vitals: 10/05/19 1301 BP: 122/100 Pulse: 100 Resp: 22 Temp: 36.1 ??C (97 ??F) SpO2: 97% Weight: (!) 151.5 kg (334 lb) Physical Exam Constitutional: Appearance: He is well-developed. HENT: Head: Normocephalic and atraumatic. Nose: Nose normal. Eyes: General: No scleral icterus. Right eye: No discharge. Left eye: No discharge. Conjunctiva/sclera: Conjunctivae normal. Pupils: Pupils are equal, round, and reactive to light. Neck: Musculoskeletal: Normal range of motion and neck supple. Thyroid: No thyromegaly. Trachea: No tracheal deviation. Cardiovascular: Rate and Rhythm: Normal rate. Heart sounds: No murmur. No friction rub. No gallop. Pulmonary: Effort: Pulmonary effort is normal. No respiratory distress. Breath sounds: Normal breath sounds. No wheezing or rales. Chest: Chest wall: No tenderness. Abdominal: General: Bowel sounds are normal. There is no distension. Palpations: Abdomen is soft. Tenderness: There is no abdominal tenderness. Musculoskeletal: Normal range of motion. General: No tenderness or deformity. Lymphadenopathy: Cervical: No cervical adenopathy. Skin: General: Skin is warm and dry. Neurological: Mental Status: He is alert and oriented to person, place, and time. Cranial Nerves: No cranial nerve deficit. Motor: No abnormal muscle tone. Coordination: Coordination normal. Psychiatric: Behavior: Behavior normal. Data Reviewed Images: Echocardiogram: Labs: CBC w/auto diff: Lab Results Component Value Date WBC 6.8 09/28/2019 RBC 4.07 (L) 09/28/2019 HGB 11.8 (L) 09/28/2019 HCT 34.9 (L) 09/28/2019 MCV 85.7 09/28/2019 MCH 29.0 09/28/2019 MCHC 33.8 09/28/2019 MPV 9.9 09/28/2019 NRBC 0.0 09/28/2019 NRBCABS 0.00 09/28/2019 CMP results: Lab Results Component Value Date SODIUM 137 09/28/2019 POTASSIUM 3.3 09/28/2019 CO2 25 09/28/2019 GLUCOSE 233 (H) 09/28/2019 CREATININE 0.8 09/28/2019 CALCIUM 9.2 09/28/2019 CHLORIDE 100 09/28/2019 ALBUMIN 3.9 09/28/2019 AST 37 09/28/2019 ALT 58 (H) 09/28/2019 ALKPHOS 71 09/28/2019 BILITOT 0.3 09/28/2019 PROT 6.4 09/28/2019 ANIONGAP 12 09/28/2019 Assessment and Plan: Diagnoses and all orders for this visit: Asthma (Primary) Assessment & Plan: Patient has mild intermittent asthma and is on p.r.n. albuterol inhaler active will be continued. Iwill check IgE level. He complains of cough with sinus drainage. I will start him on Zyrtec. Obtainfull set of PFTs before next visit. Orders: - IgE; Future - Pulmonary Function Test -[facility]; Full PFT in PFT Lab, Bronchial Provacation; Future Pulmonary nodule/lesion, solitary Assessment & Plan: Patient has 1 pulmonary nodule which is [address] scan of the abdomen and pelvis. Will repeat CT scan of the chest in 1 year given his family history of lung cancer. Orders: - CT Chest WO Contrast; Future STACIE (obstructive sleep apnea) Assessment & Plan: Patient is obese and complains of snoring at night, daytime sleepiness and fatigue. Suspect underlying obstructive sleep apnea. I will refer him to Sleep Clinic for sleep study. Orders: - Ambulatory referral to Sleep Medicine; Future Other orders - cetirizine (ZyrTEC) 10 mg tablet; Take 1 tablet (10 mg total) by mouth daily Rendering Provider & Department: Manish Maldonado MD documented in this encounter Miscellaneous Notes * Assessment & Plan Note - Manish Maldonado MD - 10/05/2019 4:50 PM CDT Associated Problem(s): Asthma Patient has mild intermittent asthma and is on p.r.n. albuterol inhaler active will be continued. Iwill check IgE level. He complains of cough with sinus drainage. I will start him on Zyrtec. Obtainfull set of PFTs before next visit. * Assessment & Plan Note - Manish Maldonado MD - 10/05/2019 4:49 PM CDT Associated Problem(s): STACIE (obstructive sleep apnea) Patient is obese and complains of snoring at night, daytime sleepiness and fatigue. Suspect underlying obstructive sleep apnea. I will refer him to Sleep Clinic for sleep study. * Assessment & Plan Note - Manish Maldonado MD - 10/05/2019 4:49 PM CDT Associated Problem(s): Pulmonary nodule/lesion, solitary Patient has 1 pulmonary nodule which is [address] scan of the abdomen and pelvis. Will repeat CT scan of the chest in 1 year given his family history of lung cancer. documented in this encounter Plan of Treatment Scheduled Orders Name Type Priority Associated Diagnoses Orde r Schedule IgE Lab Routine Asthma Expected: 10/05/2019, Expires: 10/04/2020 CT Chest WO Contrast Imaging Schedule Routine, Read Routine (OP Routine) Pulmonary nodule/lesion, solitary Expected: 10/04/2020, Expires: 10/04/2020 documented as of this encounter Visit Diagnoses Diagnosis Asthma- Primary Unspecified asthma Pulmonary nodule/lesion, solitary Other diseases of lung, not elsewhere classified STACIE (obstructive sleep apnea) Obstructive sleep apnea (adult) (pediatric) documented in this encounter Discontinued Medications Medication Sig Discontinue Reason Start Date End Da te glimepiride (AMARYL) 2 mg tablet Take 2 mg by mouth 2 (two) times a day Alternate therapy 08/14/2019 10/05/[address] (CYMBALTA) 30 mg capsule TAKE 1 CAPSULE BY MOUTH EVERYDAY AT BEDTIME Alternate therapy 07/01/2019 10/05/2019 cetirizine (ZyrTEC) 10 mg tablet Take 1 tablet (10 mg total) by mouth daily Reorder 10/05/2019 10/05/2019 documented as of this encounter Historical Medications * This list may reflect changes made after this encounter. blood sugar diagnostic (ONETOUCH VERIO TEST STRIPS [facility]) OneTouch Verio test strips lancets 33 gauge [facility] [place] OneTouch Delica Lancets 33 gauge use to test blood glucose twice a day 2 HYDROcodone-acetamin ophen (NORCO) 5-325 mg per tablet TAKE 1 TABLET BY MOUTH EVERY 4 HOURS NEEDED FOR PAIN (PAIN SCALE 4 6) 09/28/2019 2 naproxen (ALEVE) 220 mg tablet Take 440 mg by mouth daily as needed 2 ondansetron ODT (ZOFRAN-ODT) 4 mg disintegrating tablet DISSOLVE ONE TABLET UNDER THE TONGUE EVERY 6 HOURS NEEDED 09/28/2019 2 insulin lispro protamin-lispro (HumaLOG 75/25) 100 unit/mL (75-25) insulin pen 09/30/2019 2 BD Ultra-Fine Josephien Pen Needle 32 gauge x 5/32 needle USE TO INJECT INSULIN UNDER THE SKIN TWICE DAILY 09/28/2019 2 added in this encounter Care Teams Director Insurance Relationship Specialty Start Date End Date Manish Maldonado MD PCP - General 09/28/19 11/16/19 documented as of this encounter
--- OUTSIDE RECORDS SUMMARY | 2024-04-04 19:33 | XMS_ITS | Encounter Summary ---
Author Organization [facility] Healthcare Address [address] [place] [address] Care Team Providers Care Car Distributor Name Role Phone Starla Parham MD Primary Care Provider [phone] Reason for Visit * Diagnostic Imaging (Routine) - Closed Specialty Diagnoses / Procedures Referred By Contac t Referred To Contact Diagnoses Nausea and vomiting, unspecified vomiting type Gastroesophageal reflux disease, unspecified whether esophagitis present Procedures NM Gastric Emptying Study Rubio Martinez NP [address] [place] [address] Phone: tel: fax: [address] [phone] Referral ID Status Reason Start Date Expiration Date Visits Re quested Visits Authorized [id number] Closed 12/03/2023 01/01/2025 5 1 Encounter Details Date Type Department Care Team (Latest Contact Info) Description 01/22/2024 11:09 AM CDT - 01/22/2024 11:59 PM CDT Hospital Encounter [facility] [address] [place] [id number] Discharge Disposition: Discharge to home or self [...] often do you attend chur ch or voodoo services? Never 06/20/2023 Do you belong to any clubs o r organizations such as hinduism groups, unions, fraternal or athletic groups, or [...] place to sleep or slept in a long term (including now)? 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 LB: PIO Report ID: [id number] Reading Location: [id number] us Rubio Adore Martinez PATIENT EDUCATOR IMG NM PROCEDURES F inal Result documented in this encounter Visit Diagnoses Not on filedocumented in this encounter Care Teams Car Distributor Relationship Specialty Start Date End Date Starla Parham MD PCP - General Family Medicine 11/13/21 03/02/24 documented as of this encounter
--- OUTSIDE RECORDS SUMMARY | 2024-04-04 19:33 | XMS_ITS | Encounter Summary ---
Author Organization [facility] Address [address] [place] [address] Care Team Providers Care Ramp Service Agent Name Role Phone Starla Parham MD Primary Care Provider [phone] Encounter Details Date Type Department Care Team (Latest Contact Info) Description 11/29/2021 3:00 PM CDT Office Visit [facility] Pulmonary [address] [place] [address] Shubham Reeder MD [id number] [facility] [address] [address] Psychophysiological insomnia (Primary Dx); Hypersomnia; Restless legs; Essential hypertension; STACIE (obstructive sleep apnea); Nonsmoker; History of COVID-19 Social History Tobacco Use Types Packs/Day Years Used Date Smoking Tobacco: Never Smokeless Tobacco: Never Alcohol Use Standard Drinks/Week Comments Yes 0 (1 standard drink = 0.6 oz pur e alcohol) rarely Sex and Gender Information Value Date Recorded Sex Assigned at Not on file 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 Gender Identity Not on file Sexual Orientation Not on file documented as of this encounter Last Filed Vital Signs Vital Sign Reading Time Taken Comments Blood Pressure 132/80 11/29/2021 2:44 PM CDT Pulse 92 11/29/2021 2:44 PM CDT Temperature 36.7 ??C (98 ??F) 11/29/2021 2:44 PM CDT Respiratory Rate 18 11/29/2021 2:44 PM CDT Oxygen Saturation 98% 11/29/2021 2:44 PM CDT Inhaled Oxygen Concentration - - Weight 143.8 kg (317 lb) 11/29/2021 2:44 PM CDT Height - - Body Mass Index 44.21 04/21/2020 7:02 PM CASTING 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 male. Chief Complaint No chief complaint on file. HPI The patient is pleasant 36-year-old male who came to us complaining of sleep disturbances. He relates chronic fatigue, tired all the time, does not matter how long I sleep . Patient does report history snoring, restless legs and excessive daytime fatigue. He denies any history of witnessed sleep apnea waking up because snoring. Patient does report history of gasping for breath, waking up with dry mouth, insomnia, falling asleep at unwanted time, sleep depending on alarm to wake up, sleep an hour past his normal wake-up time, having restless and disturbed sleep. He does report history of palpitation, night sweats, wake up violence, wake-up confusion, nightmares, morning headache, nausea, jaw pain, teeth grinding, anxiety, disturbing thoughts and cataplexy. He denies any history of bedwetting, sleep walking or sleep talking. He retires to bed at 10:00 p.m. to 11:00 p.m. and wake up at 6:00 a.m. to 8:00 a.m., takes him20 minutes ago sleep, wake up 2- 4 times not to go the bathroom, does take 3-4 naps during the week for about 30 minutes to 2-1/2 hour each. He denies any history of smoking. He does not exercise. He does drink alcoholic beverages socially 1-4 times per months. He does drink caffeinated beverages. 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 His [place] sleeping score is 10/24. He lives in [place], [place]. He livesin an apartment. He does have a dog who does not sleep in his bed. He is up-to-date with [address] Allergies Allergen Reactions Morphine Palpitations and Other (See comments) Bradycardia. Review of Systems Constitutional: Positive for fatigue. Negative for appetite change, chills and fever. HENT: Negative for congestion, ear pain, mouth sores, tinnitus and voice change. Eyes: Negative for photophobia and pain. Respiratory: Negative for choking and stridor. Cardiovascular: Negative for chest pain and palpitations. Gastrointestinal: Negative for abdominal distention, abdominal pain and nausea. Endocrine: Negative for cold intolerance and polyphagia. Genitourinary: Negative for dysuria and hematuria. Musculoskeletal: Negative for gait problem and joint swelling. Skin: Negative for pallor and rash. Allergic/Immunologic: Negative for immunocompromised state. Neurological: Negative for seizures and facial asymmetry. Hematological: Negative for adenopathy. Does not bruise/bleed easily. Psychiatric/Behavioral: Negative for agitation and confusion. Vitals BP 132/80 Pulse 92 Temp 36.7 ??C (98 ??F) Resp 18 Wt (!) 143.8 kg (317 lb) SpO2 98% BMI 44.21 kg/m?? Physical Exam Constitutional: General: He is not in acute distress. Appearance: He is well-developed. He is not diaphoretic. HENT: Head: Normocephalic and atraumatic. Neck: Thyroid: No thyromegaly. Cardiovascular: Rate and Rhythm: Normal rate and regular rhythm. Heart sounds: No murmur heard. No gallop. Pulmonary: Effort: Pulmonary effort is normal. No accessory muscle usage or respiratory distress. Breath sounds: No stridor. Chest: Chest wall: No mass, deformity or tenderness. Breasts: Right: No mass. Left: No mass. Abdominal: General: Bowel sounds are normal. There is no distension. Palpations: Abdomen is soft. Tenderness: There is no abdominal tenderness. Musculoskeletal: General: No tenderness or deformity. Normal range of motion. Cervical back: Normal range of motion and neck supple. Lymphadenopathy: Cervical: No cervical adenopathy. Skin: General: Skin is warm and dry. Capillary Refill: Capillary refill takes less than 2 seconds. Findings: No erythema or rash. Neurological: Mental Status: He is alert and oriented to person, place, and time. Cranial Nerves: No cranial nerve deficit. Coordination: Coordination normal. Psychiatric: Behavior: Behavior normal. Diagnoses and all orders for this visit: Psychophysiological insomnia (Primary) Hypersomnia Restless legs Essential hypertension STACIE (obstructive sleep apnea) Nonsmoker History of COVID-19 Results: Lab Results Component Value Date WBC 9.6 04/21/2020 HGB 14.6 04/21/2020 HCT 45.7 04/21/2020 MCV 88.4 04/21/2020 LABPLAT 297 04/21/2020 Plan: Patient will return back in 2 months for re-evaluation. I will send the patient for home sleep study for further evaluation. Patient was advised about the pathophysiology of obstructive sleep apnea, complication of untreated obstructive sleep apnea, sleep hygiene, diet and exercise program for weight reduction. He is up-to-date with COVID-19 vaccine. He did have 3 episode of COVID-19 infection. Patient was encouraged to call us with any inquiry, concern for question about their condition, lab work, x-rays or CT scans at any time, please see further details for assessment and plan in HPI THIS NOTE WAS CREATED IN PART WITH THE ASSISTANCE OF [employer]ICE [employer]. FLAT BED OPERATOR VARIANCES MAY OCCUR. documented in this encounter Plan of Treatment Not on file documented as of this encounter Visit Diagnoses Diagnosis Psychophysiological insomnia- Primary Persistent disorder of initiating or maintaining sleep Hypersomnia Hypersomnia, unspecified Restless legs Restless legs syndrome (RLS) Essential hypertension Unspecified essential hypertension STACIE (obstructive sleep apnea) Obstructive sleep apnea (adult) (pediatric) Nonsmoker Other specified conditions influencing health status History of COVID-19 documented in this encounter Discontinued Medications Medication Sig Discontinue Reason Start Date End Da te HYDROcodone-acetaminophen (NORCO) 5-325 mg per tablet TAKE 1 TABLET BY MOUTH EVERY 4 HOURS NEEDED FOR PAIN (PAIN SCALE 4 6) 09/28/2019 11/29/2021 insulin lispro protamin-lispro (HumaLOG 75/25) 100 unit/mL (75-25) insulin pen 09/30/2019 11/29/2021 ondansetron ODT (ZOFRAN-ODT) 4 mg disintegrating tablet DISSOLVE ONE TABLET UNDER THE TONGUE EVERY 6 HOURS NEEDED 09/28/2019 11/29/2021 cetirizine (ZyrTEC) 10 mg tablet Take 1 tablet (10 mg total) by mouth daily 10/05/2019 11/29/2021 lancets 33 gauge misc OneTouch Delica Lancets 33 gauge use to test blood glucose twice a day 11/29/2021 BD Ultra-Fine Josephine Pen Needle 32 gauge x needle USE TO INJECT INSULIN UNDER THE SKIN TWICE DAILY 09/28/2019 11/29/2021 naproxen (ALEVE) 220 mg tablet Take 440 mg by mouth daily as needed 11/29/2021 documented as of this encounter Historical Medications * This list may reflect changes made after this encounter. metFORMIN (GLUCOPHAGE) 1,000 mg tablet Take 1 tablet (1,000 mg total) by mouth 2 (two) times a day with meals 11/22/2021 atorvastatin (LIPITOR) 40 mg tablet 11/22/2021 amLODIPine (NORVASC) 5 mg tablet Take 1 tablet (5 mg total) by mouth daily 11/22/2021 lisinopriL (PRINIVIL,ZESTRIL ) 10 mg tablet 11/22/2021 06/19/2023 added in this encounter Care Teams Ramp Service Agent Relationship Specialty Start Date End Date Starla Parham MD PCP - General Family Medicine 11/13/21 03/02/24 documented as of this encounter
--- OUTSIDE RECORDS SUMMARY | 2024-04-04 19:33 | XMS_ITS | Encounter Summary ---
Author Organization [facility] Healthcare Address [address] [place] [address] Care Team Providers Care Lbd Teacher Name Role Phone Starla Parham MD Primary Care Provider [phone] Reason for Referral * Diagnostic Imaging (Routine) - Closed Specialty Diagnoses / Procedures Referred By Donavon braswell Referred To Contact Diagnoses Nausea and vomiting, unspecified vomiting type Gastroesophageal reflux disease, unspecified whether esophagitis present Procedures NM Gastric Emptying Study Rubio Martinez NP [address] [place] [address] DR LOPEZ [address] [place] [id number] Phone: tel: fax: [address] [phone] Referral ID Status Reason Start Date Expiration Date Visits Re quested Visits Authorized [id number] Closed 12/03/2023 01/01/2025 5 1 * Diagnostic Imaging (Routine) - Authorized Specialty Diagnoses / Procedures Referred By Donavon braswell Referred To Contact Diagnoses Nausea and vomiting, unspecified vomiting type RUQ pain Gastroesophageal reflux disease, unspecified whether esophagitis present Procedures NM Hepatobiliary Imaging [facility] Rubio Martinez NP [address] [facility] [address] LOPEZ [address] [place] [id number] Phone: tel: fax: [address] [phone] Referral ID Status Reason Start Date Expiration Date V isits Requested Visits Authorized [id number] Authorized 12/03/2023 01/01/2025 2 2 Reason for Visit * Reason Comments New Patient Abdominal Pain Patient states that he has been having upper right quadrant that radiates to his lower abdomen, is having nausea most days Change In Bowel Patient states he is having loose to with not normal consistency Encounter Details Date Type Department Care Team (Latest Contact Info) Description 12/03/2023 1:15 PM CDT Office Visit [facility] Gastroenterology at [address] [place] [phone] Rubio Martinez NP [address] [place] [address] [address] [place] [address] Nausea and vomiting, unspecified vomiting type (Primary Dx); RUQ pain; Irritable bowel syndrome with both constipation and diarrhea; Gastroesophageal reflux disease, unspecified whether esophagitis present; Hepatic steatosis; History of colonoscopy with polypectomy Social History Tobacco Use Types Packs/Day Years Used Date Smoking Tobacco: Never Smokeless Tobacco: Never Tobacco Cessation:Counseling Given: Not Answered Alcohol Use Standard Drinks/Week Comments Yes 0 (1 standard drink = 0.6 oz pur e alcohol) rarely [facility] Utilities Answer Date Recorded In the past 12 months has [employer], gas, oil, or water [employer] threatened to shut off services in your [...] often do you attend chur ch or sikh services? Never 06/20/2023 Do you belong to any clubs o r organizations such as gnosticist groups, unions, fraternal or athletic groups, or [...] place to sleep or slept in a alf (including now)? 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 Gender Identity Not on file Sexual Orientation Not on file documented as of this encounter Last Filed Vital Signs Vital Sign Reading Time Taken Comments Blood Pressure 142/98 12/03/2023 1:26 PM CDT Pulse 107 12/03/2023 1:26 PM CDT Temperature - - Respiratory Rate - - Oxygen Saturation 96% 12/03/2023 1:26 PM CDT Inhaled Oxygen Concentration - - Weight 147.3 kg (324 lb 11.2 oz) 12/03/2023 1:26 PM CDT Height 180.3 cm (5' 11 ) 12/03/2023 1:26 PM CDT Body Mass Index 45.29 12/03/2023 1:26 PM CDT documented in this encounter Patient Instructions * Patient Instructions* Juan Rubio Villalobosbeth, FOOT WORKER - 12/03/2023 1:15 PM CDT Begin taking Gas-X 125 mg chewable tab up to 4 times daily as needed. Take it any time you are having any cramping, bloating, nausea, or indigestion. It works by getting the trapped gas out. In general it will help you belch better or fart better and then feel better. Sometimes it can push stool out with the gas so keep that in mind whenever you take it and only take it with the toilet nearby. Buy this one [id number] if not covered by insurance. Begin taking MiraLax one capful three nights weekly. The goal is for this to help you have larger, more complete bowel movements and less problematic cramping/pain/diarrhea over time. If we have difficulty getting all of your symptoms to improve over time, will eventually see if we can get you on so mething prescription for constipation, but we have to work our way up to that. The reason I keep mentioning constipation is in order to improve the symptoms, the majority of the time were focus has to be on getting you pooping better. Buy this [id number] if not covered by insurance. Use Bentyl/dicyclomine 20 mg up to 4 times daily as needed for problematic abdominal pain/cramping and diarrhea that seems to be driven by cramping. Do not use routinely since can contribute to constipation. Continue amitriptyline 25 mg at bedtime. This can help with multiple problematic GI symptoms, but it can also contribute to constipation. Continue Zofran/ondansetron up to 4 times daily as needed for nausea/vomiting. Refill sent to pharmacy. Continue pantoprazole/Protonix 40 mg everyday for now, but as your heartburn and reflux become lesssymptomatic over time, try to reduce to every other day dosing and see if this dosage still manage your heartburn/reflux well. There maybe weeks where you need to take it everyday, but then always try to wean it back down to [id number] dosing. This will help prevent kidney disease and other complications down the road. Taking a probiotic may be very helpful, but usually not covered by insurance. Consider getting a generic Align or Culturelle probiotic to take daily for approx 3 months to see if helps. Follow the GERD diet in order to avoid having problematic heartburn/reflux. Use the FODMAP diet list identify food triggers that you may want to avoid. I will attempt to get a copy of any prior GI scopes and all of your other previous GI records. In the meantime, I have ordered blood work, a HIDA scan to screen for gallbladder issues, and gastric emptying study to check for delayed stomach emptying as a contributing factor to your symptoms. Scheduling will reach out to you to schedule the imaging studies. Please do the blood work at your convenience. Please talk to your prescribing provider to make sure you are on long-acting metformin and not short-acting metformin since long-acting metformin is less likely to cause problematic GI symptoms. documented in this encounter Ordered Prescriptions Prescription Sig Dispense Quantity Refills Last Filled Start Date End Date polyethylene glycol (MIRALAX) 17 gram/dose bulk powder Take one capful of MiraLax three nights weekly for constipation management. 595 g 1 4 simethicone (MYLICON) 125 mg chewable tablet Take 1 tablet (125 mg total) by mouth 4 (four) times a day as needed (cramping/bloatin g/gas/nausea) 120 tablet [address] (PROTONIX) 40 mg EC tablet Take 1 tablet (40 mg total) by mouth daily 90 tablet 3 4 amitriptyline (ELAVIL) 25 mg tablet Take 1 tablet (25 mg total) by mouth nightly 90 tablet 3 4 dicyclomine (BENTYL) 20 mg tabletIndications:I rritable Bowel Syndrome Take 1 tablet (20 mg total) by mouth 4 (four) times a day as needed (abdominal cramping/pain or problematic diarrhea driven by cramping) 120 tablet 3 4 ondansetron ODT (ZOFRAN-ODT) 4 mg disintegrating tablet Take 1 tablet (4 mg total) by mouth every 6 (six) hours 20 tablet 5 4 documented in this encounter Progress Notes * Rubio Martinez NP - 12/03/2023 1:15 PM CDT Images from the original note were not included. PATIENT DEMOGRAPHICS Oscar Rehman is a 38 y.o. White male. PATIENT'S CARE TEAM Patient Care Team: Starla Parham MD as PCP - General (Family Medicine) CHIEF COMPLAINT Chief Complaint Patient presents with New Patient Abdominal Pain Patient states that he has been having upper right quadrant that radiates to his lower abdomen, is having nausea most days Change In Bowel Patient states he is having loose to with not normal consistency HPI/ROS New or existing patient visit: New. Referring Provider: Starla Parham MD Oscar is here today to establish care for his GI health. He has been under the care of GI providerDr. Matt in [facility] in recent years. Will attempt to obtain copy of those records. He had an EGD in the last three years that he believes showed some reflux esophagitis changes. He has had two colonoscopies in his lifetime with benign polyps removed per patient, but advised to repeat in five years. Mostrecent one was in the last 1-2 years. Again, will attempt to obtain a copy of these records. He presents today with alternating constipation, diarrhea, right upper quadrant pain that radiates down into the right lower quadrant and across the lower abdomen, heartburn/reflux that are under good control along with problematic nausea/vomiting. No hematemesis. Usually vomits stomach acid, food particles, or combination of the two. Uses Zofran as needed with positive benefit. Would like refill. His heartburn and reflux are well controlled on pantoprazole/Protonix 40 mg daily. He needs me to take over this prescription. He also takes amitriptyline 25 mg at bedtime and believes this has helped all of his problematic GI symptoms more so than anything else he has tried so he would like to continue it. He had a HIDA scan three years ago that was normal. He had a CT scan of the abdomen and pelvis with IV contrast in August that was normal. Right upper quadrant ultrasound 05/25 showed a healthy appearing gallbladder, but hepatic steatosis changes. He would like to consider repeating the HIDA scan. He does not believe he has ever had a gastric emptying study. He chronically takes metformin, but has recently been able to reduce the dose. Did not seem to makediarrhea any worse whenever he started it. Again he alternates between constipation and diarrhea without melena or hematochezia. Can have multiple diarrhea stools in a day with straining, then can skip days and pass hard stools. Passes a combination of loose and formed stools. He is prescribed Bentyl/dicyclomine, but has not recently taken it and can not recall how much it helped whenever he did take it. He takes NSAIDs some, but not as frequently as he used to. Occasional alcohol use, but only once every few months. No tobacco use. No drug use. Current Outpatient Medications on File Prior to Visit Medication Sig Dispense Refill albuterol HFA (PROVENTIL HFA,VENTOLIN HFA,PROAIR HFA) 90 mcg/actuation inhaler TAKE 2 PUFFS BY MOUTH EVERY 6 HOURS NEEDED FOR WHEEZE OR SHORTNESS OF BREATH amLODIPine (NORVASC) 5 mg tablet Take 1 tablet (5 mg total) by mouth daily blood sugar diagnostic (ONETOUCH VERIO TEST STRIPS MISC) OneTouch Verio test strips metFORMIN (GLUCOPHAGE) 1,000 mg tablet Take 1 tablet (1,000 mg total) by mouth 2 (two) times a day with meals [DISCONTINUED] amitriptyline (ELAVIL) 25 mg tablet TAKE 1 TABLET BY MOUTH EVERY NIGHT AT BEDTIME FOR 1 MONTH(30 DAYS) atorvastatin (LIPITOR) 40 mg tablet (Patient not taking: Reported on 12/03/2023) [DISCONTINUED] dicyclomine (BENTYL) 20 mg tablet Take 1 tablet (20 mg total) by mouth daily (Patient taking differently: Take 0.5 tablets (10 mg total) by mouth 3 (three) times a day as needed) 30 tablet 0 [DISCONTINUED] ketorolac (TORADOL) 10 mg tablet Take 1 tablet (10 mg total) by mouth every 6 (six) hours as needed for pain (Patient not taking: Reported on 12/03/2023) 12 tablet 0 [DISCONTINUED] loperamide (IMODIUM) 2 mg capsule Take 1 capsule (2 mg total) by mouth 3 (three) times a day for 7 days 21 capsule 0 [DISCONTINUED] omeprazole (PriLOSEC) 40 mg capsule Take 1 capsule (40 mg total) by mouth daily for 14 days 14 capsule 0 [DISCONTINUED] ondansetron ODT (ZOFRAN-ODT) 4 mg disintegrating tablet Take 1 tablet (4 mg total) by mouth every 8 (eight) hours as needed for nausea or vomiting (Patient not taking: Reported on 12/03/2023) 20 tablet 0 [DISCONTINUED] pantoprazole DR (PROTONIX) 40 mg EC tablet Take 1 tablet (40 mg total) by mouth daily No current facility-administered medications on file prior to visit. PHYSICAL EXAM BP 142/98 (BP Location: Left arm, Patient Position: Sitting) Pulse 107 Ht 180.3 cm (5' 11 ) Wt (!) 147.3 kg (324 lb 11.2 oz) SpO2 96% BMI 45.29 kg/m?? No LMP for male patient. Positive responses are italicized. Constitutional: No acute distress/sickly appearance. Obese. HENT: Normocephalic/atraumatic; mucous membranes moist; oropharynx is clear; no posterior oropharyngeal erythema. Eyes: No scleral icterus. Neck: No thyroid mass/obvious thyromegaly. Trachea midline. No obvious lymphadenopathy. Cardiovascular: Normal rate and regular rhythm; no murmur heard; no leg edema. Pulmonary: Pulmonary effort and breath sounds normal. Abdominal: Bowel sounds active; abdomen is soft/bloated. No abdominal tenderness; no rebound; no guarding. No obvious hernia identified. Skin: No jaundice or significant pallor. No rash. Neurological: Alert and oriented to person, place, time. Psychiatric: Mood/behavioral normal. TESTS/LABS/PROCEDURES (not all inclusive) 09/17/23- CBC, CMP, and Lipase wo concerning findings. 09/17/23- CT Abdomen/pelvis with IV contrast: FINDINGS: LOWER CHEST: No significant pulmonary abnormalities. No effusion. LIVER: Normal size. No identified cystic or solid masses. GALLBLADDER: Normally distended BILE DUCTS: No intrahepatic or extrahepatic ductal dilatation. SPLEEN: Normal size. No focal lesions. PANCREAS: No identified cystic or solid masses. No significant calcifications. No adjacent inflammation or peripancreatic fluid collections. Pancreatic duct not dilated. ADRENALS: Normal. KIDNEYS/URINARY TRACT: No identified significant cystic or solid masses. No visualized stones. No hydronephrosis or hydroureter. Symmetric enhancement. Urinary bladder is unremarkable. GI: No dilated bowel loops. No obvious wall thickening. Normal appendix. No significant diverticular disease. PERITONEUM: No ascites or free air. RETROPERITONEUM: No mass or adenopathy. REPRODUCTIVE: No significant abnormality. VASCULATURE: No abdominal aortic aneurysm. MUSCULOSKELETAL: No significant abnormality. OTHER: No other abnormality. IMPRESSION: No acute finding. 07/15/2023-colonoscopy: 11 mm polyp removed from transverse colon. Terminal ileum biopsy noted benign lymphoid aggregates. No active inflammation. Random colon biopsy was normal. Polypectomy from transverse colon revealed a tubular adenoma. Advised to repeat in three years. 06/19/23- CT Abdomen/pelvis with IV contrast: IMPRESSION: Multiple mildly prominent lymph nodes are noted within the mesentery. This may represent mesenteric adenitis. Follow-up is suggested. 05/20/23- RUQ US: FINDINGS: PANCREAS: Not well seen due to overlapping bowel gas. LIVER: Large portions are obscured by overlapping shadows. Remainder of the liver has increased echogenicity with diminished true transmission. Maximum dimensions of 19.4 cm. Main portal vein demonstrates hepatopetal flow. GALLBLADDER: No cholelithiasis. No gallbladder wall thickening or pericholecystic fluid. No positive sonographic Aurora sign reported. BILIARY: Common bile duct measuring up to 0.4 cm. RIGHT KIDNEY: Measures 14.1 X 5.6 x 5.1 cm no obstructive uropathy. IMPRESSION: 1. No gallstones or secondary sonographic evidence for acute cholecystitis. 2. Increased echogenicity of the liver can be seen with steatosis. 01/24/2023-EGD completed: Mild antral gastritis changes noted. The distal esophagus showed evidenceof erosive esophagitis, but the rest of the esophagus appeared normal. Duodenal biopsy normal. Antral gastric biopsy showed reactive gastropathy. H pylori testing was negative. 01/08/23-CT A/P w IV contast: IMPRESSION: No acute finding. 01/06/21- NM HIDA scan with GB EF: Normal with GB EF of 70%. 11/24/20- Limited abdominal US: =====IMPRESSION:===== 1. Minimal nonspecific diffuse hepatic parenchymal echogenicity with minimal hepatomegaly. Is most consistent with hepatic steatosis. 2. No definitive evidence of cholelithiasis. Minimal gallbladder intraluminal biliary sludge. 3. No evidence of biliary duct dilatation. 11/05/20- CT A/P w IV contrast: IMPRESSION: 1. No findings to explain the patient's symptoms. 2. Stable area of mild nonspecific stranding in mildly prominent lymph nodes in the mid abdominal mesentery. This is unchanged dating back to June 2018 and can be seen with inflammation, infection, or less likely lymphoma. *See chart for imaging prior to above date. GI ASSESSMENT/PLAN (R11.2) Nausea and vomiting, unspecified vomiting type (primary encounter diagnosis) Chronic intermittent symptomatology. Likely functional in nature. Will attempt to obtain copy of previous EGD and colonoscopy. Planning HIDA scan to rule out gallbladder dysfunction and gastric emptying study. In the meantime he will continue Zofran as needed and try Gas-X q.i.d. p.r.n. to see if offers positive benefit. (R10.11) RUQ pain Chronic symptomatology that I believe is likely functional in nature and related to his IBS, but will check a HIDA scan to rule out a dysfunctioning gallbladder as a contributing factor while trying to get his IBS under better control. (K58.2) Irritable bowel syndrome with both constipation and diarrhea It sounds like he has chronic mixed IBS with constipation needing to be the main focus in order to get all other symptoms to improve. Will attempt to obtain a copy of EGD and colonoscopy reports completed previously. Planning to screen for celiac disease. To try to help him see positive improvement in his symptoms over time, he was advised as follows: -Begin taking Gas-X 125 mg chewable tab up to 4 times daily as needed. Take it any time you are having any cramping, bloating, nausea, or indigestion. It works by getting the trapped gas out. In general it will help you belch better or fart better and then feel better. Sometimes it can push stool out with the gas so keep that in mind whenever you take it and only take it with the toilet nearby. Buy this one [id number] if not covered by insurance. -Begin taking MiraLax one capful three nights weekly. The goal is for this to help you have larger,more complete bowel movements and less problematic cramping/pain/diarrhea over time. If we have difficulty getting all of your symptoms to improve over time, will eventually see if we can get you on s omething prescription for constipation, but we have to work our way up to that. The reason I keep mentioning constipation is in order to improve the symptoms, the majority of the time were focus has to be on getting you pooping better. Buy this [id number] if not covered by insurance. -Use Bentyl/dicyclomine 20 mg up to 4 times daily as needed for problematic abdominal pain/crampingand diarrhea that seems to be driven by cramping. Do not use routinely since can contribute to constipation. -Continue amitriptyline 25 mg at bedtime. This can help with multiple problematic GI symptoms, but it can also contribute to constipation. -Taking a probiotic may be very helpful, but usually not covered by insurance. Consider getting a generic Align or Culturelle probiotic to take daily for approx 3 months to see if helps. -Use the FODMAP diet list identify food triggers that you may want to avoid. -Please talk to your prescribing provider to make sure you are on long-acting metformin and not short-acting metformin since long-acting metformin is less likely to cause problematic GI symptoms. *Will keep SIBO in the differential. (K21.9) Gastroesophageal reflux disease, unspecified whether esophagitis present Chronic symptomatology that is well controlled on pantoprazole/Protonix 40 mg daily. As symptoms remain well controlled over time, I have encouraged him to try to reduce dosing to every other day dosing in the travel attendants to prevent potential side effects down the road. Risks/benefits/side effects oflong-term PPI use were discussed with patient. Will check appropriate labs given his chronic PPI therapy. Encouraged moderate diet/avoid trigger foods/avoid NSAIDs/avoid alcohol. GERD diet handout provided. Will attempt to obtain a copy of his previous EGD that he believes showed reflux esophagitischanges. (K76.0) Hepatic steatosis Incidental finding on previous imaging in the setting of consistently normal liver enzymes. Appearsto be at low risk for Fibrosis at this time. Recommend yearly monitoring of liver enzymes, avoidance of weight gain, attempts at weight loss, and healthy use of alcohol. Fibrosis-4 (FIB-4) Calculator: 0.6 at 12/03/2023 2:50 PM Calculated from: SGOT/AST: 28 Units/L at 09/17/2023 6:37 PM SGPT/ALT: 35 Units/L at 09/17/2023 6:37 PM Platelets: 284 K/cumm at 09/17/2023 6:37 PM Age: 38 years (Z98.890, Z86.010) History of colonoscopy with polypectomy Will attempt to obtain copy of his two colonoscopies to determine when next colonoscopy is needed. Believes last one was in the last one or two years and that he was advised to repeat in five years so is likely due again around 2027. Orders Placed This Encounter NM Hepatobiliary Imaging [facility] Standing Status: Future Standing Expiration Date: 12/02/2024 Order Specific Question: Has the patient had an abdominal ultrasound? Answer: Yes Order Specific Question: Has the patient had an abdominal CT? Answer: Yes Order Specific Question: Where should this order be performed? Answer: [facility] [[id number]] NM Gastric Emptying Study Standing Status: Future Standing Expiration Date: 12/02/2024 Order Specific Question: If you answer No to any of the First following 4 questions or are uncertain of the answers, you should discuss with nuclear medicine before ordering this test. Answer: ACKNOWLEDGE, the answers below are validated Order Specific Question: 1.) Is patient currently eating full solid meals? Answer: Yes Order Specific Question: 2.) Can the patient eat food most of the time without vomiting? Answer: Yes Order Specific Question: 3.) Can the patient eat eggs? Answer: Yes Order Specific Question: 4.) Is patient able to eat a meal consisting of equivalent of 2 eggs and toast + water? Answer: Yes Order Specific Question: Is the patient on any medications intended to affect gastric emptying and bowel motility? (eg, Reglan (metoclopramide), Zelnorm (tegaserod), erythromycin, Motilium (domperidone) and Motegrity (prucalopride))? Answer: No Order Specific Question: Is the patient taking any medications that might affect gastric emptying and bowel motility as side effect (eg, Pain medications (meperidine (Demerol), codeine, morphine, andoxycodone (Oxycontin, Percodan, Percocet))? Answer: No Order Specific Question: Is the patient taking Anticholinergic antispasmodic agents (dicyclomine (Bentyl), , hyoscyamine (Levsin), and glycopyrrolate (Robinul)), or Antacids (including gastric acid suppressants and aluminum containing antacids)? Answer: Yes Order Specific Question: In most cases, it is recommended that these be stopped 2-3 days prior to the study. Will you instruct the patient to stop these medications? Answer: No, I want the test performed while on these medications Order Specific Question: Is the patient on calcium channel blockers, atropine, nifedipine, progesterone, octreotide, theophylline, and phenolamine? Answer: Yes Order Specific Question: These may have a minor effect on gastric emptying. Consider stopping thesemedications for 2-3 days if patient management would not be adversely affected. Answer: Acknowledge Order Specific Question: Is the patient on Antidepressants, sedatives, and/or tranquilizers, including Valium (and other benzodiazepines), Libraz, Ativan, Thorazine, and/or novel weight loss drugs such as Ozempic, Wegovy, or Mounjaro? Answer: Yes Order Specific Question: These may slow gastric emptying but it may not be feasible to stop them since abrupt discontinuation can be problematic. Answer: Acknowledge Order Specific Question: Where should this order be performed? Answer: [facility] [144] Vitamin B12 Standing Status: Future Number of Occurrences: 1 Standing Expiration Date: 12/02/2024 Magnesium Standing Status: Future Number of Occurrences: 1 Standing Expiration Date: 12/02/2024 Folate Standing Status: Future Number of Occurrences: 1 Standing Expiration Date: 12/02/2024 Thyroid Function Henderson Standing Status: Future Number of Occurrences: 1 Standing Expiration Date: 12/02/2024 Celiac reflex panel Standing Status: Future Number of Occurrences: 1 Standing Expiration Date: 12/02/2024 Iron profile w/ IBC Standing Status: Future Number of Occurrences: 1 Standing Expiration Date: 12/02/2024 Vitamin D 25 hydroxy Standing Status: Future Number of Occurrences: 1 Standing Expiration Date: 12/02/2024 ondansetron ODT (ZOFRAN-ODT) 4 mg disintegrating tablet Sig: Take 1 tablet (4 mg total) by mouth every 6 (six) hours Dispense: 20 tablet Refill: 5 dicyclomine (BENTYL) 20 mg tablet Sig: Take 1 tablet (20 mg total) by mouth 4 (four) times a day as needed (abdominal cramping/pain or problematic diarrhea driven by cramping) Dispense: 120 tablet Refill: 3 amitriptyline (ELAVIL) 25 mg tablet Sig: Take 1 tablet (25 mg total) by mouth nightly Dispense: 90 tablet Refill: [address] (PROTONIX) 40 mg EC tablet Sig: Take 1 tablet (40 mg total) by mouth daily Dispense: 90 tablet Refill: 3 simethicone (MYLICON) 125 mg chewable tablet Sig: Take 1 tablet (125 mg total) by mouth 4 (four) times a day as needed (cramping/bloating/gas/nausea) Dispense: 120 tablet Refill: 3 polyethylene glycol (MIRALAX) 17 gram/dose bulk powder Sig: Take one capful of MiraLax three nights weekly for constipation management. Dispense: 595 g Refill: 1 Return in about 3 months (around 03/03/2024) for IBS/Nausea&vomiting/GERD. Medication(s) and/or immunization(s) uses and side effects briefly discussed. Patient verbalizes understanding of all instructions provided today and agrees with plan. Total time spent on the date of the [id number]-ffua encounter, including both hvxz-gp-kies time (including staff/provider time spent providing education) and cnf-vbwb-en-face time (pre-charting, reviewing chart, post-charting) was 53 minutes. This note is dictated and transcribed by [employer]. Java J[employer] variances may occur. Despite proofreading, typographical errors may occur. My collaborating physicians are Dr. Allan Peñaloza & Dr. Hanane Bhakta-Gastroenterology. Rubio Martinez NP * Rubio Martinez NP - 12/03/2023 1:15 PM CDT After his office visit, previous records were received from Dr. Daisha Matt's office in [place], [place] (GI). 07/15/2023-colonoscopy: 11 mm polyp removed from transverse colon. Terminal ileum biopsy noted benign lymphoid aggregates. No active inflammation. Random colon biopsy was normal. Polypectomy from transverse colon revealed a tubular adenoma. Advised to repeat in three years. 05/20/2023-right upper quadrant ultrasound: No gallstones or secondary sonographic evidence for acute cholecystitis. Hepatic steatosis changes were seen. 01/24/2023-EGD completed: Mild antral gastritis changes noted. The distal esophagus showed evidenceof erosive esophagitis, but the rest of the esophagus appeared normal. Duodenal biopsy normal. Antral gastric biopsy showed reactive gastropathy. H pylori testing was negative. documented in this encounter Plan of Treatment Scheduled Orders Name Type Priority Associated Diagnoses Orde r Schedule NM Hepatobiliary Imaging W GBEF Imaging Schedule Routine, Read Routine (OP Routine) Nausea and vomiting, unspecified vomiting type RUQ pain Gastroesophageal reflux disease, unspecified whether esophagitis present Expected: 12/03/2023, Expires: 12/02/2024 documented as of this encounter Results * NM Gastric Emptying [...] Electronically signed by ??Anthony Olguin M.D. LB: LB D: ??01/22/2024 4:13 PM T: ??01/22/2024 4:13 PM Report ID: [id number] Reading Location: ??[id number] Procedure Note Anthony Olguin MD - 01/22/2024 [...] Anthony Olguin M.D. LB: LB Report ID: [id number] Reading Location: [id number] us Rubio Martinez FOOT WORKER IMG NM PROCEDURES F inal Result * (ABNORMAL) Vitamin D 25 hydroxy (12/03/2023 2:18 PM CDT) Vitamin D 25-OH 23(L) 30 - 80 ng/mL Blood 12/03/2023 2:18 PM CDT 12/03/2023 3:47 PM CDT Rubio Martinez FOOT WORKER LAB BLOOD ORDERABLE S Final Result JUSTYNA [facility] (FLY) 1 [place] [address] * (ABNORMAL) Iron profile w/ IBC (12/03/2023 2:18 PM CDT) Iron 60 50 - 150 mcg/dL TIBC 366 250 - 400 mcg/dL [facility] ([place]) Transferrin saturation 16(L) 20 - 50 % [facility] (FLY) Blood 12/03/2023 2:18 PM CDT 12/03/2023 3:47 PM CDT [facility] LAB BLOOD ORDERABLE S Final Result Performing Organization Address [facility] Co de Phone Number JUSTYNA DA[facility] (FLY) [address] [place] [address] * Celiac reflex panel (12/03/2023 2:18 PM CDT) IgA 87 61 - 356 mg/dL [facility] Celiac disease interpretation See Comment ISAMIRIAM DAHL (FLY) Comment: See Comment: Negative serology. Celiac disease unlikely. However, approximately 10% of patients with celiac disease are seronegative. Also, patients who are already adhering to a gluten-free diet may be seronegative. If celiac disease is highly clinically suspected, consider HLA-DQ typing. Test Performed by: [facility] [place] [address] Ticket Clerk: Hiro Crystal Ph.D.; CLIA# [id number] Blood 12/03/2023 2:18 PM CDT 12/03/2023 3:47 PM CDT Rubio Martinez FOOT WORKER LAB BLOOD ORDERABLE S Final Result JUSTYNA [facility] (FLY) 1 [facility] [place] [address] [facility] * Thyroid Function Henderson (12/03/2023 2:18 PM CDT) Pathologist [facility] TSH 1.77 0.30 - 4.20 mcIUnit/mL Blood 12/03/2023 2:18 PM CDT 12/03/2023 3:47 PM CDT [facility] FOOT WORKER LAB BLOOD ORDERABLE S Final Result JUSTYNA DAHL ([place]) 1 [facility] [place] [address] * Folate (12/03/2023 2:18 PM CDT) Pathologist [facility] Folic acid 12.7 >=5.0 ng/mL Comment:Slightly Hemolyzed S pecimen. Results may be affected. Blood 12/03/2023 2:18 PM CDT 12/03/2023 3:47 PM CDT [facility] FOOT WORKER LAB BLOOD ORDERABLE S Final Result JUSTYNA DA[facility] ([place]) 1 [facility] [place] [address] * Magnesium (12/03/2023 2:18 PM CDT) [facility] Magnesium 1.8 1.4 - 2.5 mg/dL Blood 12/03/2023 2:18 PM CDT 12/03/2023 3:47 PM CDT [facility] FO[facility] WORK[facility] LAB BLOOD ORDERABLE S Final Result JUSTYNA DAHL ([place]) 1 [facility] [place] [address] * Vitamin B12 (12/03/2023 2:18 PM CDT) Vitamin B12 300 230 - 1,250 pg/mL Blood 12/03/2023 2:18 PM CDT 12/03/2023 3:47 PM CDT Rubio Martinez FOOT WORKER LAB BLOOD ORDERABLE S Final Result JUSTYNA DAHL ([place]) 1 [facility] Department [place] [address] documented in this encounter Visit Diagnoses Diagnosis Nausea and vomiting, unspecified vomiting type- Primary RUQ pain Abdominal pain, right upper quadrant Irritable bowel syndrome with both constipation and diarrhea Gastroesophageal reflux disease, unspecified whether esophagitis present Hepatic steatosis Other chronic nonalcoholic liver disease History of colonoscopy with polypectomy Other postprocedural status Nausea and vomiting, unspecified vomiting type Gastroesophageal reflux disease, unspecified whether esophagitis present documented in this encounter Discontinued Medications Medication Sig Discontinue Reason Start Date End Da te loperamide (IMODIUM) 2 mg capsule Take 1 capsule (2 mg total) by mouth 3 (three) times a day for 7 days Therapy completed 06/21/2023 12/03/2023 ketorolac (TORADOL) 10 mg tablet Take 1 tablet (10 mg total) by mouth every 6 (six) hours as needed for pain Therapy completed 09/17/2023 12/03/2023 omeprazole (PriLOSEC) 40 mg capsule Take 1 capsule (40 mg total) by mouth daily for 14 days Alternate therapy 09/17/2023 12/03/2023 dicyclomine (BENTYL) 20 mg tabletIndications:Irritab le Bowel Syndrome Take 1 tablet (20 mg total) by mouth daily Reorder 01/08/2023 12/03/2023 ondansetron ODT (ZOFRAN-ODT) 4 mg disintegrating tablet Take 1 tablet (4 mg total) by mouth every 8 (eight) hours as needed for nausea or vomiting Reorder 09/17/2023 12/03/2023 amitriptyline (ELAVIL) 25 mg tablet TAKE 1 TABLET BY MOUTH EVERY NIGHT AT BEDTIME FOR 1 MONTH(30 DAYS) Reorder 11/23/2023 12/03/[address] (PROTONIX) 40 mg EC tablet Take 1 tablet (40 mg total) by mouth daily Reorder 12/03/2023 documented as of this encounter Historical Medications * This list may reflect changes made after this encounter. pantoprazole DR (PROTONIX) 40 mg EC tablet Take 1 tablet (40 mg total) by mouth daily 12/03/2023 amitriptyline (ELAVIL) 25 mg tablet TAKE 1 TABLET BY MOUTH EVERY NIGHT AT BEDTIME FOR 1 MONTH(30 DAYS) 11/23/2023 12/03/2023 added in this encounter Care Teams Lbd Teacher Relationship Specialty Start Date End Date Starla Parham MD PCP - General Family Medicine 11/13/21 03/02/24 documented as of this encounter
--- OUTSIDE RECORDS SUMMARY | 2024-04-04 19:33 | XMS_ITS | Encounter Summary ---
Author Organization [facility] Healthcare Address [address] [place] [address] Care Team Providers Care Manager Services Name Role Phone Nikky Cunningham MD Primary Care Provider Reason for Visit * Reason Comments Abdominal Pain Encounter Details Date Type Department Care Team (Late st Contact Info) Description 03/20/2024 2:52 AM PROFESSOR OF FINANCE - 03/20/2024 8:10 AM [facility] Emergency [facility] Emergency Department [address] [place] [address] Aren Gomez MD [address] [place] [address] Abdominal pain (Primary Dx); Biliary colic Discharge Disposition: Discharge to home or self care Social History Tobacco Use Types Packs/Day Years Used Date Smoking Tobacco: Never Smokeless Tobacco: Never Alcohol Use Standard Drinks/Week Comments Yes 0 (1 standard drink = 0.6 oz pur e alcohol) rarely [facility] Utilities Answer Date Recorded In the past 12 months has [employer], gas, oil, or water [employer] threatened to shut off services in your home? No 06/20/2023 Social Connection and Isolation Panel [NHANES] A nswer Date Recorded In a typical week, how many times do you talk on the phone with family, friends, or neighbors? Three times a week 06/20/19 24 How often do you get togethe r with friends or relatives? Three times a week 06/20/2023 How often do you attend chur or yazidism services? Never 06/20/2023 Do you belong to any clubs o r organizations such as congregational groups, unions, fraternal or athletic groups, or [...] place to sleep or slept in a mcfp (including now)? No 06/20/2023 Personal Safety Answer [...] on file Legal Sex Male 7:25 PM PROFESSOR OF FINANCE Gender Identity Not on file Sexual Orientation Not on file documented as of this encounter Last Filed Vital Signs Vital Sign Reading Time Taken Comments Blood Pressure 151/92 03/20/2024 7:55 AM PROFESSOR OF FINANCE Pulse 88 03/20/2024 7:55 AM PROFESSOR OF FINANCE Temperature 35.8 ??C (96.4 ??F) 03/20/2024 2:55 AM CS T Respiratory Rate 16 03/20/2024 7:55 AM PROFESSOR OF FINANCE Oxygen Saturation 98% 03/20/2024 7:55 AM PROFESSOR OF FINANCE Inhaled Oxygen Concentration - - Weight 140.6 kg (310 lb) 03/20/2024 2:55 AM PROFESSOR OF FINANCE Height - - Body Mass Index 43.24 03/03/2024 8:31 AM PROFESSOR OF FINANCE documented in this encounter Discharge Instructions * Discharge Instructions* Markel Hines MD - 03/20/2024 7:34 AM PROFESSOR OF FINANCE Continue home medication, schedule HIDA scan. ESSOR OF FINANCE documented in this encounter Medications at Time [...] TEST STRIPS MISC) OneTouch Verio test strips cholecalciferol (VITAMIN D-3) 25 mcg (1,000 unit) tablet Take 1 tablet (1,000 Units total) by mouth daily 90 tablet 3 4 12/11/19 25 dicyclomine (BENTYL) 20 mg tabletIndications:I rritable Bowel Syndrome Take 1 tablet (20 mg total) by mouth 4 (four) times a day as needed (abdominal cramping/pain or problematic diarrhea driven by cramping) 120 tablet 3 4 hydrocortisone (ANUSOL-HC) 25 mg suppository Insert 1 suppository (25 mg total) into the rectum 2 (two) times a day as needed for hemorrhoids 24 suppository 3 4 linaCLOtide (LINZESS) 145 mcg capsule Take 1 capsule (145 mcg total) by mouth daily 90 capsule 3 4 metFORMIN (GLUCOPHAGE) 1,000 mg tablet [...] 4 (four) times a day as needed (cramping/bloati ng/gas/nausea) 120 tablet 3 4 documented as of this encounter Discharge Disposition Disposition Code Departure Means Destination Comment s Discharge to home or self care documented in this encounter ED Notes * Aren Gomez MD - 03/20/2024 6:08 AM CST HPI Chief Complaint Patient presents with Abdominal Pain This is a 38-year-old male, who has history diabetes type 2, gastroenteritis, asthma and hypertension. Patient states has been having abdominal pain, more in the right upper quadrant for several days, but the last 24 hours started having pain in the right lower back. No nausea, no vomiting, no diarrhea, no fevers. The patient is noted uncomfortable in the emergency room. History provided by: Patient and medical records Patient History: Patient Active Problem List Diagnosis Date Noted Hepatic steatosis 12/03/2023 RUQ pain 12/03/2023 Nausea and vomiting 12/03/2023 Gastroesophageal reflux disease 12/03/2023 Sepsis (HCC) 06/20/2023 Sinus tachycardia 06/20/2023 Gastroenteritis 06/19/2023 Hypersomnia 11/29/2021 Restless legs 11/29/2021 Psychophysiological insomnia 11/29/2021 Nonsmoker 11/29/2021 History of COVID-19 11/29/2021 Pulmonary nodule/lesion, solitary 10/05/2019 STACIE (obstructive sleep apnea) 10/05/2019 Essential hypertension 02/05/2019 Type 2 diabetes mellitus without complication (CMS/HCC) (HCC) 07/23/2018 Asthma 07/26/2017 Irritable bowel syndrome 07/26/2017 Past Medical History: Diagnosis Date Asthma Diabetes mellitus (HCC) Hypertension No past surgical history on file. Family History Problem Relation Age of Onset [...] are negative. Physical Exam ED Triage Vitals [03/20/24 0255] Temp Pulse Resp BP SpO2 (!) 35.8 ??C (96.4 ??F) 116 22 (!) 163/116 96 % Temp src Heart Rate Source Patient Position BP Location FiO2 (%) -- -- -- -- -- Height Height Method Weight Weight Method -- -- (!) 140.6 kg (310 lb) -- Physical Exam Vitals and nursing note reviewed. Constitutional: Appearance: He is well-developed. HENT: Head: Normocephalic. Eyes: Extraocular Movements: Extraocular movements intact. Pupils: Pupils are equal, round, and reactive to light. Cardiovascular: Rate and Rhythm: Normal rate and regular rhythm. Heart sounds: Normal heart sounds. Pulmonary: Effort: Pulmonary effort is normal. Breath sounds: Normal breath sounds. Abdominal: General: Bowel sounds are normal. Tenderness: There is abdominal tenderness in the right upper quadrant. There is right CVA tenderness. There is no left CVA tenderness. Skin: General: Skin is warm. Capillary Refill: Capillary refill takes less than 2 seconds. Neurological: General: No focal deficit present. Mental Status: He is alert and oriented to person, place, and time. [facility] Medical Decision Making ED Course as of 04/01/24619 Time: 03/20 647 Comment: Inform patient about his lab work, CT findings. Recommended him to follow up with his primary doctor and get outpatient HIDA scan By: Markel Hines MD Final diagnoses: Abdominal pain Biliary colic Aren Gomez MD 03/20/24609 Aren Gomez MD 04/01/24619 ESSOR OF FINANCE ESSOR OF FINANCE * Latanya Baptiste NP - 03/20/2024 2:52 AM CST PT is a 38yo male c/c of right sided epigastric pain. Pt reports pain is a 9/10, started aprox 30-40 minutes prior to coming to the ER. Pt states that he was seen by his PCP last week for n/v after eating. Pt reports that his GI provider has ordered a Hyda scan. Pt states that he also has hx of pancreatitis. ESSOR OF FINANCE documented in this encounter Miscellaneous Notes * ED Re-evaluation Note - Markel Hines MD - 03/20/2024 7:32 AM CST ED Re-evaluation I assumed care of this patient at shift change with pending CT and disposition. I have re-examined the patient his pain is much improved. I informed him about his lab work, CT findings. Advised him to follow up with his primary doctor toget outpatient HIDA scan.. Markel Hines MD 03/20/24 0733 ESSOR OF FINANCE documented in this encounter Plan of Treatment Not on file documented as of this encounter Procedures Procedure Name Priority Date/Time Associated Diagnosis Comments CT ABDOMEN PELVIS W CONTRAST ED 03/20/2024 6:25 AM PROFESSOR OF FINANCE EGFR STAT 03/20/2024 3:08 AM PROFESSOR OF FINANCE DIFFERENTIAL AUTO STAT 03/20/2024 3:0 8 AM PROFESSOR OF FINANCE CBC WITH AUTO DIFFERENTIAL STAT 03/20/2024 3:08 AM PROFESSOR OF FINANCE LIPASE STAT 03/20/2024 3:08 AM PROFESSOR OF FINANCE COMPREHENSIVE METABOLIC PANEL STAT 03/20/2024 3:08 AM PROFESSOR OF FINANCE documented in this encounter Results * CT Abdomen Pelvis W Contrast (03/20/2024 6:25 AM PROFESSOR OF FINANCE) Anatomical Region Laterality Modality Body N/A Computed Tomogra phy 03/20/2024 6:27 AM PROFESSOR OF FINANCE Narrative 03/20/2024 6:31 AM PROFESSOR OF FINANCE EXAM DESCRIPTION: ?? CT ABDOMEN PELVIS W [...] Electronically signed by ??Alessio Arango M.D. CH: LAINA D: ??03/20/2024 6:31 AM T: ??03/20/2024 6:31 AM Report ID: [id number] Reading Location: ??[id number] Procedure Note Alessio Arango Jr., MD - [...] Alessio Arango M.D. CH: LAINA Report ID: [id number] Reading Location: [place] [address] us Aren Gomez MD IMG CT PROCEDURES Final Resu lt * eGFR (03/20/2024 3:08 AM PROFESSOR OF FINANCE) eGFR >90 >=60 mL/min/1. 73 m2 Comment: [...] last reviewed 2021. Blood 03/20/2024 3:08 AM PROFESSOR OF FINANCE 03/20/2024 3:18 AM PROFESSOR OF FINANCE us Aren Gomez MD LAB BLOOD ORDERABLES Final R esult JUSTYNA DAHL ([place]) 1 [facility] [place] [address] * Differential, auto (03/20/2024 3:08 AM PROFESSOR OF FINANCE) Neutrophil abs 3.4 1.5 - 6.5 K/cumm Imm gran abs 0.1 0.0 - 0.1 K/cumm [facility] ([place]) Lymphocyte abs 3.3 0.8 - 3.3 K/cumm [facility] ([place]) Monocyte abs 0.6 0.2 - 0.8 K/cumm [facility] ([place]) Eosinophil abs 0.1 0.0 - 0.5 K/cumm [facility] ([place]) Basophil abs 0.1 0.0 - 0.1 K/cumm [facility] ([place]) Neutrophil pct 45.3 % [facility] [...] revised on 2017. Blood 03/20/2024 3:08 AM PROFESSOR OF FINANCE 03/20/2024 3:18 AM PROFESSOR OF FINANCE us Aren Gomez MD LAB BLOOD ORDERABLES Final R esult JUSTYNA DAHL (FL[place]) 1 [facility] [place] [address] * Lipase (03/20/2024 3:08 AM PROFESSOR OF FINANCE) Lipase 47 10 - 99 Units/L Blood (Blood, Venous) 03/20/2024 3:08 AM PROFESSOR OF FINANCE 03/20/2024 3:18 AM PROFESSOR OF FINANCE us Aren Gomez MD LAB BLOOD ORDERABLES Final R esult JUSTYNA DAHL ([place]) 1 [facility] [place] [address] * (ABNORMAL) Comprehensive metabolic panel (03/20/2024 3:08 AM PROFESSOR OF FINANCE) Sodium 141 135 - 145 mmol/L Potassium, [...] Hemolyzed S pecimen Blood 03/20/2024 3:08 AM PROFESSOR OF FINANCE 03/20/2024 3:18 AM PROFESSOR OF FINANCE Aren Gomez MD LAB BLOOD ORDERABLES Final R esult Performing Organization Address [facility] Co de Phone Number [facility] (FLY) 1 [facility] [place] [address] * CBC with auto differential (03/20/2024 3:08 AM PROFESSOR OF FINANCE) WBC 7.6 3.8 - 9.9 K/cumm Hgb [...] (FLY) Blood (Blood, Venous) 03/20/2024 3:08 AM PROFESSOR OF FINANCE 03/20/2024 3:18 AM PROFESSOR OF FINANCE Aren Gomez MD LAB BLOOD ORDERABLES Final R esult [facility] ([place]) 1 [facility] [place] [address] documented in this encounter Visit Diagnoses Diagnosis Abdominal pain- Primary Abdominal pain, unspecified site Biliary colic Calculus of gallbladder without mention of cholecystitis or obstruction documented in this encounter Administered Medications Inactive Administered Medications - up to 3 most recent administrations Medication Order MAR Action Action Date Dose Rate Site al & mag hydroxide simethicone-lidocaine oral suspension mixture 40 mL, oral, Once, On Sat03/20/24 at 0557, For 1 dose Given 03/20/2024 6:03 AM PROFESSOR OF FINANCE 40 mL amLODIPine (NORVASC) tablet 5 mg 5 mg, oral, Once, On Sat03/20/24 at 0652, For 1 dose Given 03/20/2024 6:58 AM PROFESSOR OF FINANCE 5 mg fentaNYL (SUBLIMAZE) preservative free injection 50 mcg 50 mcg, intravenous, Once, On Sat03/20/24 at 0557, For 1 dose Given 03/20/2024 6:04 AM PROFESSOR OF FINANCE 50 mcg ioversoL (OPTIRAY 350) syringe 100 mL 100 mL, intravenous, Once in imaging, contrast, Starting on Sat03/20/24 at 0611, For 1 dose Contrast Given 03/20/2024 6:25 AM PROFESSOR OF FINANCE 100 mL Right Antecubital ondansetron (ZOFRAN) injection 4 mg 4 mg, intravenous, Administer over 2 Minutes, Once, On Sat03/20/24 at 0417, For 1 dose Given 03/20/2024 4:18 AM PROFESSOR OF FINANCE 4 mg pantoprazole (PROTONIX) 40 mg in sodium chloride 0.9% 10 mL IV Syringe 40 mg, intravenous, at 300 mL/hr, Administer over 2 Minutes, Once, On Sat03/20/24 at 0558, For 1 dose, For IV administration, reconstitute 40 mg vial with 10 mL sodium chloride 0.9% for injection for a final concentration of 4 mg/mL, Indications: Stress Ulcer ProphylaxisIndication s:Stress Ulcer Prophylaxis Given 03/20/2024 6:03 AM PROFESSOR OF FINANCE 40 mg 300 mL/hr documented in this encounter Active and Recently Administered Medications Times are shown in PROFESSOR OF FINANCE. Scheduled Medication Order 03/18/2024 03/19/2024 03/20/2024 al & mag hydroxide simethicone-lidocaine oral suspension mixture (COMPLETED) 40 mL, oral, Once, On Sat03/20/24 at 0557, For 1 dose 0603 (Given - Provid er: Gayle Francisco RN) amLODIPine (NORVASC) tablet 5 mg (COMPLETED) 5 mg, oral, Once, On Sat03/20/24 at 0652, For 1 dose 0658 (Given - Provid er: Anastasia Gu RN) fentaNYL (SUBLIMAZE) preservative free injection 50 mcg (COMPLETED) 50 mcg, intravenous, Once, On Sat03/20/24 at 0557, For 1 dose 0604 (Given - Provid er: Gayle Francisco RN) ondansetron (ZOFRAN) injection 4 mg (COMPLETED) 4 mg, intravenous, Administer over 2 Minutes, Once, On Sat03/20/24 at 0417, For 1 dose 0418 (Given - Provid er: Guillermo Melendrez RN) pantoprazole (PROTONIX) 40 mg in sodium chloride 0.9% 10 mL IV Syringe (COMPLETED) 40 mg, intravenous, at 300 mL/hr, Administer over 2 Minutes, Once, On Sat03/20/24 at 0558, For 1 dose, For IV administration, reconstitute 40 mg vial with 10 mL sodium chloride 0.9% for injection for a final concentration of 4 mg/mL, Indications: Stress Ulcer Prophylaxis 0603 (Given - Provid er: Gayle Francisco RN) PRN Medication Order 03/18/2024 03/19/2024 03/20/2024 ioversoL (OPTIRAY 350) syringe 100 mL (COMPLETED) 100 mL, intravenous, Once in imaging, contrast, Starting on Sat03/20/24 at 0611, For 1 dose 0625 (Contrast Given - Provider: Sue Gruber RT) documented in this encounter Care Teams Manager Services Relationship Specialty Start Date End Date Nikky Cunningham MD [address] [place] [address] [address] [place] [address] PCP - General Family Medicine 03/03/24 documented as of this encounter
--- OUTSIDE RECORDS SUMMARY | 2024-04-04 19:33 | XMS_ITS | Encounter Summary ---
Author Organization [facility] Healthcare Address [address] [place] [id number] Care Team Providers Care Trophy Assembler Name Role Phone Starla Parham MD Primary Care Provider [phone] Encounter Details Date Type Department Care Team (Late st Contact Info) Description 12/03/2023 2:20 PM CDT [address] Nausea and vomiting, unspecified vomiting type; Irritable bowel syndrome with both constipation and diarrhea; Gastroesophageal reflux disease, unspecified whether esophagitis present Social History Tobacco Use Types Packs/Day Years Used Date Smoking Tobacco: Never Smokeless Tobacco: Never Alcohol Use Standard Drinks/Week Comments Yes 0 (1 standard drink = 0.6 oz pur e alcohol) rarely [facility] Utilities Answer Date Recorded In the past 12 months has [employer] electric, gas, oil, or water company threatened [...] any clubs o r organizations such as anabaptism groups, unions, fraternal or athletic groups, or [...] place to sleep or slept in a penitentiary (including now)? 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 Please call patient with lab results. Vitamin D low. I will send a D3 supplement for you to take at 1,000 units daily. Please buy OTC if not covered by insurance. He will likely need to continue this indefinitely to keep levels within goal range. Iron level is within goal range. Screening for celiac disease negative. Folic acid and B12 levels within goal range. Thyroid function and magnesium level within goal range. * Result Encounter Note - Rubio Martinez NP - 12/11/2023 9:54 AM CDT Mann Oscar: Lab findings: Vitamin D low. I will send a D3 supplement for you to take at 1,000 units daily. Please buy OTC if not covered by insurance. You will likely need to continue this indefinitely to keep levels within goal range. Iron level is within goal range. Screening for celiac disease negative. Folic acid and B12 levels within goal range. Thyroid function and magnesium level within goal range. documented in this encounter Plan of Treatment Not on file documented as of this encounter Procedures Procedure Name Priority Date/Time Associated Diagnosis Comments THYROID FUNCTION CASCADE Routine 12/03/2023 2:18 PM CDT Nausea and vomiting, unspecified vomiting type Irritable bowel syndrome with both constipation and diarrhea Gastroesophageal reflux disease, unspecified whether esophagitis present IRON PROFILE W/ IBC Routine 12/03/2023 2:18 PM CDT Nausea and vomiting, unspecified vomiting type Irritable bowel syndrome with both constipation and diarrhea Gastroesophageal reflux disease, unspecified whether esophagitis present CELIAC REFLEX PANEL Routine 12/03/2023 2:18 PM CDT Nausea and vomiting, unspecified vomiting type Irritable bowel syndrome with both constipation and diarrhea Gastroesophageal reflux disease, unspecified whether esophagitis present TISSUE TRANSGLUTAMINASE, IGA Routine 12/03/2023 2:18 PM CDT VITAMIN D 25 HYDROXY Routine 12/03/2023 2:18 PM CDT Nausea and vomiting, unspecified vomiting type Irritable bowel syndrome with both constipation and diarrhea Gastroesophageal reflux disease, unspecified whether esophagitis present MAGNESIUM Routine 12/03/2023 2:18 PM CDT Nausea and vomiting, unspecified vomiting type Irritable bowel syndrome with both constipation and diarrhea Gastroesophageal reflux disease, unspecified whether esophagitis present FOLATE Routine 12/03/2023 2:18 PM CDT Nausea and vomiting, unspecified vomiting type Irritable bowel syndrome with both constipation and diarrhea Gastroesophageal reflux disease, unspecified whether esophagitis present VITAMIN B12 Routine 12/03/2023 2:18 PM CDT Nausea and vomiting, unspecified vomiting type Irritable bowel syndrome with both constipation and diarrhea Gastroesophageal reflux disease, unspecified whether esophagitis present documented in this encounter Results * Tissue transglutaminase IgA (TGG-IgA Ab) (12/03/2023 2:18 PM CDT) Pathologist [facility] TTG ab, IgA <1.2 <4.0 (Negative) units/mL Comment: Test Performed by: [facility] [place] [address] [place] [address] Hardening Machine Operator: Hiro Crystal Ph.D.; CLIA# [id number] Interpretive data Negative: <15 units/mL Positive: > or equal to 15 units/mL Current interpretive data was last revised on 2016. Testing performed by: [facility], [address] [place] [address] Blood 12/03/2023 2:18 PM CDT 12/03/2023 3:47 PM CDT us Rubio Martinez [facility] LAB BLOOD ORDERABLE S Final Result [facility] (GRABILL) 1 [facility] Department [place] [address] * Vitamin B12 (12/03/2023 2:18 PM CDT) Vitamin B12 300 230 - 1,250 pg/mL Blood 12/03/2023 2:18 PM CDT 12/03/2023 3:47 PM CDT [facility] Final Result Performing Organization Address City/[facility]/ZIP Co de Phone Number JUSTYNA [facility] (GRABILL) [address] [facility] [place] [address] * Magnesium (12/03/2023 2:18 PM CDT) Magnesium 1.8 1.4 - 2.5 mg/dL Blood 12/03/2023 2:18 PM CDT 12/03/2023 3:47 PM CDT [facility] LAB BLOOD ORDERABLE S Final Result Performing Organization Address [facility] de Phone Number JUSTYNA [facility] (GRABILL) [address] [facility] [place] [address] * Folate (12/03/2023 2:18 PM CDT) Folic acid 12.7 >=5.0 ng/mL Comment:Slightly Hemolyzed S pecimen. Results may be affected. Blood 12/03/2023 2:18 PM CDT 12/03/2023 3:47 PM CDT [facility] LAB BLOOD ORDERABLE S Final Result Performing Organization Address City/[facility] Co de Phone Number JUSTYNA [facility] (GRABILL) [address] [facility] [place] [address] * Thyroid Function Kerr (12/03/2023 2:18 PM CDT) TSH 1.77 0.30 - 4.20 mcIUnit/mL Blood 12/03/2023 2:18 PM CDT 12/03/2023 3:47 PM CDT [facility] LAB BLOOD ORDERABLE S Final Result Performing Organization Address City/[facility]/ZIP Co de Phone Number JUSTYNA [facility] (FLY) [address] [facility] [place] [address] * Celiac reflex panel (12/03/2023 2:18 PM CDT) IgA 87 61 - 356 mg/dL [facility] Celiac disease interpretation See Comment ISAMIRIAM DAHL (FLY) Comment: See Comment: Negative serology. Celiac disease unlikely. However, approximately 10% of patients with celiac disease are seronegative. Also, patients who are already adhering to a gluten-free diet may be seronegative. If celiac disease is highly clinically suspected, consider HLA-DQ typing. Test Performed by: [place] [address] Hardening Machine Operator: Hiro Crystal Ph.D.; CLIA# [id number] Blood 12/03/2023 2:18 PM CDT 12/03/2023 3:47 PM CDT Rubioheena Martinez LAB BLOOD ORDERABLE S Final Result Performing Organization Address [facility] de Phone Number JUSTYNA [facility] (FLY) [address] [place] [address] [facility] * (ABNORMAL) Iron profile w/ IBC (12/03/2023 2:18 PM CDT) Iron 60 50 - 150 mcg/dL TIBC 366 250 - 400 mcg/dL JUST[facility] (FLY) Transferrin saturation 16(L) 20 - 50 % [facility] (FLY) Blood 12/03/2023 2:18 PM CDT 12/03/2023 3:47 PM CDT [facility] LAB BLOOD ORDERABLE S Final Result Performing Organization Address City/[facility]/ZIP Co de Phone Number JUSTYNA DAHL (FLY) [address] [facility] [place] [address] * (ABNORMAL) Vitamin D 25 hydroxy (12/03/2023 2:18 PM CDT) Vitamin D 25-OH 23(L) 30 - 80 ng/mL Blood 12/03/2023 2:18 PM CDT 12/03/2023 3:47 PM CDT Rubio Martinez [facility] LAB BLOOD ORDERABLE S Final Result [facility] ([place]) 1 [facility] [place] [address] documented in this encounter Visit Diagnoses Diagnosis Nausea and vomiting, unspecified vomiting type Irritable bowel syndrome with both constipation and diarrhea Gastroesophageal reflux disease, unspecified whether esophagitis present documented in this encounter Care Teams Trophy Assembler Relationship Specialty Start Date End Date Starla Parham MD PCP - General Family Medicine 11/13/21 03/02/24 documented as of this encounter
--- OUTSIDE RECORDS SUMMARY | 2024-04-04 19:33 | XMS_ITS | Encounter Summary ---
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 Take 1 tablet (1,000 mg total) by mouth 2 (two) times a day with meals 06/19/[address] (PROTONIX) 40 mg EC tablet Take 1 tablet (40 mg total) by mouth nightly 06/18/2023 albuterol HFA (PROVENTIL HFA,VENTOLIN HFA,PROAIR HFA) 90 mcg/actuation inhaler TAKE 2 PUFFS BY MOUTH EVERY 6 HOURS NEEDED FOR WHEEZE OR SHORTNESS OF BREATH More than a month atorvastatin (LIPITOR) 40 mg tablet blood sugar diagnostic (ONETOUCH VERIO TEST STRIPS [facility] [place]) OneTouch Verio test strips Allergies Allergen Reactions Morphine Palpitations and Other (See comments) Bradycardia. Lisinopril Cough Current Facility-Administered Medications Medication Dose Route Frequency Provider Last Rate Last Admin acetaminophen (TYLENOL) tablet 650 mg 650 mg oral Q6H PRN Deedee Winston MD 650 mg at 06/19/232123 cefepime (MAXIPIME) 2,000 mg in sodium chloride 0.9% 100 mL IVPB 2,000 mg intravenous Q8H Deedee River MD 200 mL/hr at 06/19/232123 2,000 mg at 06/19/232123 dextrose gel in packet 15 g 15 g oral Q15 Min PRN Deedee Winston MD Or dextrose (D10W) 10% bolus 250 mL 250 mL intravenous Q15 Min PRN Deedee Winston MD glucagon injection 1 mg 1 mg intramuscular Q30 Min PRN Deedee Winston MD HYDROmorphone (PF) (DILAUDID) injection 0.2 mg 0.2 mg intravenous Q3H PRN Markel Hines MD 0.2 mg at 06/19/23 2342 ibuprofen (ADVIL,MOTRIN) tablet 400 mg 400 mg oral QID PRN Deedee Winston MD insulin lispro (HumaLOG, ADMELOG) 100 unit/mL pen injection 0-4 Units 0-4 Units subcutaneous Nightly Deedee Winston MD insulin lispro (HumaLOG, ADMELOG) 100 unit/mL pen injection 0-5 Units 0-5 Units subcutaneous TID with meals Deedee Winston MD metroNIDAZOLE (FLAGYL) 500 mg/100 mL in sodium chloride (premix) 500 mg 500 mg intravenous Q8H Deedee River MD 200 mL/hr at 06/19/23 2358 500 mg at 06/19/23 2358 ondansetron ODT (ZOFRAN-ODT) disintegrating tablet 4 mg 4 mg oral Q6H PRN aMrkel Hines MD Or ondansetron (ZOFRAN) injection 4 mg 4 mg intravenous Q6H PRN Markel Hines MD 4 mg at 06/19/23 2342 sodium chloride 0.9% infusion 125 mL/hr intravenous Continuous Markel Hines MD 125 mL/hr at 06/19/23 2100 125 mL/hr at 06/19/23 2100 vancomycin 2,000 mg/520 mL in sodium chloride 0.9% (premix) 2,000 mg 15 mg/kg intravenous Q12H Deedee River MD 2,000 mg at 06/20/23 0011 Social History Tobacco Use Smoking status: Never Smokeless tobacco: Never Substance and Sexual Activity Drug use: Never Sexual activity: Defer Alcohol Use: Not on file Family History Problem Relation Age of Onset Cancer Father Cancer Brother Cancer Maternal Grandmother Cancer Maternal Grandfather Review of Systems: 1. Constitutional Denies: weight loss, weight gain, night sweats, fatigue 2. Eyes Denies: change in vision, double vision, eye pain, eye discharge, icterus 3. ENT Denies: change in hearing, ear pain, ear discharge, nose bleed, nasal congestion, sore throat 4. Respiratory Denies: SOB, wheezing, cough, sputum, hemoptysis 5. CV Denies: chest pain, palpitations, syncope, edema, dyspnea 6. GI Denies: melena, BRBPR 7. Denies: dysuria, frequency, hematuria, nocturia, urgency 8. Metabolic Denies: cold intolerance, heat intolerance, polyphagia, polydipsia 9. Neurologic Denies: headache, dizziness, seizure, change in mental status, focal weakness, focal numbness 10. Musculoskeletal Denies: myalgia, joint pain, joint redness, joint swelling, extremity pain 11. Hematologic Denies: bleeding, bruising, hematoma, lymphadenopathy, icterus OBJECTIVE Vitals: Arrival Vitals Temp 06/19/23 1335 (!) 38.3 ??C (101 ??F) Pulse 06/19/23 1335 (!) 137 Resp 06/19/23 1335 20 BP 06/19/23 1335 (!) 147/103 SpO2 06/19/23 1335 100 % Temp src 06/19/23 1335 Temporal Heart Rate Source 06/19/23 2122 Monitor Patient Position 06/19/23 2109 Lying BP Location 06/19/23 2109 Left arm FiO2 (%) -- 24hr Min/Max: Temp Min: 36.9 ??C (98.4 ??F) Max: 38.3 ??C (101 ??F) Pulse Min: 127 Max: 147 BP Min: 130/81 Max: 168/98 Resp Min: 16 Max: 28 SpO2 Min: 93 % Max: 100 % Most Recent : Vitals: 06/19/23 2320 BP: 136/82 Pulse: (!) 127 Resp: 16 Temp: 36.9 ??C (98.4 ??F) SpO2: 94% Intake/Output Summary (Last 24 hours) at 06/20/2023 0115 Last data filed at 06/19/2023 2220 Gross per 24 hour Intake 407 ml Output -- Net 407 ml Physical exam: General: awake, alert, oriented to person, place, and time. No acute distress Eyes: no scleral icterus, extraocular motion is intact, pupils are equal Neck: supple, no gross carotid bruits appreciated Pharynx: No gross oral lesion, tongue midline, mucosa moist poor dentition Lungs: clear to auscultation with no wheezes or rales, has no accessory muscle use Heart: Tachycardic rate, normal rhythm, normal s1 and s2 Abd: present bowel sounds,right upper quadrant tenderness to palpation with no rebound or guarding,Non distended Extremities: No gross edema, strength exam is 5/5 and symmetric Back: right flank and mid lower back tenderness to palpation Neuro: Facial droop, has intact sensation Musculoskeletal: no gross joint erythema, edema, tenderness Psychiatric: normal affect and mood Lab/Radiology/Diagnostic Review: Recent Results (from the past 24 hour(s)) POCT glucose Collection Time: 06/19/23 1:27 PM Result Value Ref Range Glucose, POC 106 (H) 71 - 98 mg/dL CBC with auto differential Collection Time: 06/19/23 1:33 PM Result Value Ref Range WBC 11.8 (H) 3.8 - 9.9 K/cumm Hgb 15.0 13.0 - 17.5 g/dL Hct 45.5 38.9 - 50.3 % Plt 267 150 - 400 K/cumm MPV 9.6 9.1 - 12.3 fL RBC 5.25 4.30 - 5.80 M/cumm MCV 86.7 81.3 - 96.4 fL MCH 28.6 27.1 - 33.3 pg MCHC 33.0 32.3 - 35.7 g/dL RDW CV 12.6 11.1 - 14.9 % RDW SD 39.8 35.7 - 48.1 fL NRBC abs 0.00 0.00 - 0.01 K/cumm Comprehensive metabolic panel Collection Time: 06/19/23 1:33 PM Result Value Ref Range Sodium 134 (L) 135 - 145 mmol/L Potassium, pl 3.9 3.3 - 4.9 mmol/L Chloride 98 97 - 110 mmol/L CO2 23 22 - 32 mmol/L Anion gap 14 2 - 15 mmol/L BUN 16 6 - 25 mg/dL Creatinine 0.80 0.80 - 1.30 mg/dL Glucose 112 70 - 199 mg/dL Calcium 9.2 8.5 - 10.3 mg/dL Bilirubin, total 0.4 0.1 - 1.2 mg/dL Protein, pl 7.6 6.5 - 8.5 g/dL Albumin 4.7 3.5 - 5.0 g/dL Alk phos 66 40 - 130 Units/L ALT 34 7 - 55 Units/L AST 33 10 - 50 Units/L Lipase Collection Time: 06/19/23 1:33 PM Result Value Ref Range Lipase 32 10 - 99 Units/L Differential, auto Collection Time: 06/19/23 1:33 PM Result Value Ref Range Neutrophil abs 10.1 (H) 1.5 - 6.5 K/cumm Imm gran abs 0.1 0.0 - 0.1 K/cumm Lymphocyte abs 0.8 0.8 - 3.3 K/cumm Monocyte abs 0.6 0.2 - 0.8 K/cumm Eosinophil abs 0.1 0.0 - 0.5 K/cumm Basophil abs 0.0 0.0 - 0.1 K/cumm Neutrophil pct 86.1 % Imm gran pct 0.6 % Lymphocyte pct 6.7 % Monocyte pct 5.2 % Eosinophil pct 1.1 % Basophil pct 0.3 % eGFR Collection Time: 06/19/23 1:33 PM Result Value Ref Range eGFR 118 mL/min/1.73 m2 Erythrocyte sedimentation rate Collection Time: 06/19/23 1:34 PM Result Value Ref Range Erythrocyte sedimentation rate 9 1 - 15 mm/hr Influenza A/B, RSV, and COVID-19 PCR Nasopharyngeal Collection Time: 06/19/23 1:47 PM Specimen: Nasopharyngeal Result Value Ref Range COVID-19 RNA Negative Negative Influenza A RNA Negative Negative Influenza B RNA Negative Negative RSV RNA Negative Negative Urinalysis reflex to microscopic and culture Urine Collection Time: 06/19/23 2:30 PM Specimen: Urine Result Value Ref Range Color, ur Straw Yellow Clarity, ur Clear Clear Specific gravity, ur 1.008 1.003 - 1.030 pH, urine 5.5 Protein, ur ql Negative Negative Glucose, ur ql Negative Negative Ketones, ur Negative Negative Bilirubin, ur Negative Negative Blood, ur Negative Negative Urobilinogen, ur <2.0 <2.0 mg/dL Nitrite, ur Negative Negative Leukocyte esterase, ur Negative Negative UA reflex comment Reflex conditions for microscopic UA and culture not met. POCT glucose Collection Time: 06/19/23 4:22 PM Result Value Ref Range Glucose, POC 73 71 - 98 mg/dL POCT glucose Collection Time: 06/19/23 8:43 PM Result Value Ref Range Glucose, POC 79 71 - 98 mg/dL Troponin T high-sensitivity series (baseline, 2hr, 4hr, 6hr) Collection Time: 06/19/23 9:51 PM Result Value Ref Range Trop T hs 12 <=22 ng/L Protime-INR Collection Time: 06/19/23 9:51 PM Result Value Ref Range PT 12.8 10.3 - 13.7 sec INR 1.12 0.90 - 1.20 aPTT Collection Time: 06/19/23 9:51 PM Result Value Ref Range aPTT 35 28 - 38 sec Thyroid Function Cotton Collection Time: 06/19/23 9:51 PM Result Value Ref Range TSH 1.70 0.30 - 4.20 mcIUnit/mL Magnesium Collection Time: 06/19/23 9:51 PM Result Value Ref Range Magnesium 1.6 1.4 - 2.5 mg/dL Phosphorus Collection Time: 06/19/23 9:51 PM Result Value Ref Range Phosphorus, pl 3.9 2.3 - 4.5 mg/dL Pro B-type natriuretic peptide Collection Time: 06/19/23 9:52 PM Result Value Ref Range NT-proBNP <36 <=300 pg/mL CRP (acute phase) Collection Time: 06/19/23 9:52 PM Result Value Ref Range CRP 39.9 (H) <=10.0 mg/L C. difficile testing Stool Collection Time: 06/19/23 10:18 PM Specimen: Stool Result Value Ref Range GDH Result Negative Negative Toxin Result Negative Negative C. diff result Negative, free toxin Negative, free toxin C. diff interp Negative for toxigenic Clostridioides (Clostridium) difficile. Analysis was performed using a glutamate dehydrogenase antigen detection assay combined with a C. difficile toxin detection assay. EKG: Sinus tachycardia CT Facial Bones WO Contrast Result Date: 06/19/2023 Narrative: EXAM DESCRIPTION: CT FACIAL BONES WO CONTRAST REASON FOR STUDY: TMJ pain or limited movement, sepsis New onset headache and right sided facial droop today No hx of cancer No surgery TECHNIQUE: Noncontrast computed tomography images through the paranasal sinuses. Reconstructed MPR images reviewed. All images stored on PACS. Automated exposure control was used as a dose optimization technique for this examination. COMPARISON: None FINDINGS: BONES: No fracture or bone lesion. SOFT TISSUES: No abscess. No inflammatory changes. SINUSES: No mucosal thickening or fluid. No mass. NASAL CAVITY: Midline nasal septum. ORBITS: No significant abnormalities visualized. TMJ: Normal. MASTOIDS: Well-aerated. IACs symmetric, grossly normal. BRAIN: Limited view. No acute findings. OTHER: No othersignificant finding. IMPRESSION: No acute abnormality is seen THIS IS AN ELECTRONICALLY VERIFIED FINAL REPORT 06/19/2023 11:15 PM - Electronically signed by Sekou MCCLAIN: JOHNY Report ID: [id number] Reading Location: [id number] CT Head WO Contrast Result Date: 06/19/2023 Narrative: EXAM DESCRIPTION: CT HEAD WO CONTRAST REASON FOR STUDY: Headache, new or worsening, neuro deficit (Age 19-49y) New onset headache and right sided facial droop today No hx of cancer No surgery TECHNIQUE: Axial images acquired through the brain without intravenous contrast. Images stored on PACS. Automated exposure control was used as a dose optimization technique for this examination. COMPARISON: None FINDINGS: BRAIN: No hemorrhage, edema or mass effect. No recent infarct. Normal white matter. EXTRA-AXIAL SPACES: No fluid collections. No masses. CALVARIUM: No fracture. SINUSES/MASTOIDS: No fluid or mucosal thickening. ORBITS: No significant abnormality. OTHER: No other significantabnormality. IMPRESSION: No acute intracranial findings. THIS IS AN ELECTRONICALLY VERIFIED FINAL REPORT 06/19/2023 11:11 PM - Electronically signed by Sekou MCCLAIN: JOHNY Report ID: [id number] Reading Location: [id number] X-ray chest 1 view (Portable) Result Date: 06/19/2023 Narrative: EXAM DESCRIPTION: XR CHEST 1 VIEW REASON FOR STUDY: Sepsis history of IBS, type 2 diabetes, hypertension here with the complaints of nausea, vomiting, diarrhea, diffuse abdominal pain for past 1 day. TECHNIQUE: 1 radiographic view(s) of the chest. COMPARISON: None FINDINGS: LUNGS: No focal opacity, pleural effusion, or pneumothorax. HEART/MEDIASTINUM: Cardiac silhouette normal in size.Mediastinal and hilar contours appear normal. LINES/TUBES: None. BONES: No acute osseous abnormality. IMPRESSION: No acute cardiopulmonary abnormality. THIS IS AN ELECTRONICALLY VERIFIED FINAL REPORT 06/19/2023 8:52 PM - Electronically signed by Sekou Gaines M.D. KT: KT Report ID: [id number] Reading Location: [id number] CT Abdomen Pelvis W Contrast Result Date: 06/19/2023 Narrative: EXAM DESCRIPTION: CT ABDOMEN PELVIS W CONTRAST REASON FOR STUDY: Abdominal pain, acute, nonlocalized Nausea, vomiting, and diarrhea for 2 days No known surgical hx TECHNIQUE: CT scan of the abdomen and pelvis performed with intravenous and without oral contrast using helical scanning technique with dynamic intravenous contrast injection. Reconstructed coronal and sagittal MPR images reviewed. All images stored on PACS. Automated exposure control was used as a dose optimization technique for this examination. CONTRAST TYPE/DOSE: 100mL of IOVERSOL 350 MG IODINE/ML INTRAVENOUS SYRINGEinjected via intravenous COMPARISON: 01/09/2020 FINDINGS: LOWER CHEST: No significant pulmonary abno rmalities. No effusion. LIVER: Normal size. No identified cystic or solid masses. GALLBLADDER: Unremarkable BILE DUCTS: No intrahepatic or extrahepatic ductal [...] PERITONEUM: No ascites or free air. RETROPERITONEUM: There are noted to be multiple mildly prominent lymph nodes throughout the mesentery. This is a change from the prior study. REPRODUCTIVE: No significant abnormality. VASCULATURE: No abdominal aortic aneurysm. MUSCULOSKELETAL: No significant abnormality. OTHER: No other abnormality. IMPRESSION: Multiple mildly prominent lymph nodes are noted within the mesentery. This may represent mesenteric adenitis. Follow-up is suggested. THIS IS AN ELECTRONICALLY VERIFIED FINAL REPORT 06/19/2023 6:22 PM - Electronically signed by Sekou Kan M.D. KH: JOHNY Report ID: [id number] Reading Location: [id number] A/P Sepsis Acute gastroenteritis Hyponatremia Type 2 DM Hypertension Facial droop Persistent sinus tachycardia Obesity, class 3 Given NS boluses and is on NS at 125cc/hr. On tylenol prn fever. Empiric iv vancomycin, cefepime, and Flagyl. C diff is negative and stool culture is pending. COVID-19, RSV, and flu PCR are negative.Follow-up on blood culture results and CT of thoracic and lumbar spine. Obtain echo in a.m.. Urinalysis is unremarkable. PRN IV Zofran and on iv dilaudid for pain Resume Norvasc daily and on Humalog sliding scale. CT head and maxillofacial showed no acute abnormalities SC Lovenox for vte prophylaxis Code status: Full Anticipated length of stay is greater than 2 midnights My total encounter time was 75 minutes which was spent in the activities documented in the note. This includes time spent prior to the visit and after the visit in direct care of the patient. This time does not include time spent in any separately reportable services. Voice recognition software [employer] was used dictate and transcribe this document. Lay Midwife variances may occur. Despite proofreading, typographical errors may occur. Deedee Winston MD documented in this encounter Nursing Notes * Silvia Ching RN - 06/21/2023 12:15 PM CDT Pt. is being discharged home. Discharge paperwork was explained and he voiced understanding regarding prescriptions to be picked up from his pharmacy. IV access was removed. * Katie Silva RN - 06/19/2023 10:00 PM CDT Trio rounds completed with Dr. Winston at this time. Right facial droop discussed. Orders discussed. documented in this encounter ED Notes * Markel Hines MD - 06/19/2023 7:35 PM CDT HPI Chief Complaint Patient presents with Nausea Diarrhea 37-year-old with a history of IBS, type 2 diabetes, hypertension here with the complaints of nausea, vomiting, diarrhea, diffuse abdominal pain for past 1 day. Patient states that he went to work this afternoon started having increased abdominal pain. Patient also mentioned that his son was sick with GI symptoms a week ago. Denies any fever or chills. No history of blood in the stool Patient History: Patient Active Problem List Diagnosis Date Noted Gastroenteritis 06/19/2023 Hypersomnia 11/29/2021 Restless legs 11/29/2021 [...] file Review of Systems Review of Systems Constitutional: Positive for fatigue. HENT: Negative. Respiratory: Negative. Cardiovascular: Negative. Gastrointestinal: Positive for abdominal pain, diarrhea and vomiting. Genitourinary: Negative. Musculoskeletal: Negative. Skin: Negative. Neurological: Negative. Hematological: Negative. Psychiatric/Behavioral: Negative. Physical Exam ED Triage Vitals [06/19/23 1335] Temp Pulse Resp BP SpO2 (!) 38.3 ??C (101 ??F) (!) 137 20 (!) 147/103 100 % Temp src Heart Rate Source Patient Position BP Location FiO2 (%) Temporal -- -- -- -- Height Height Method Weight Weight Method 1.803 m (5' 11 ) Stated (!) 138.8 kg (306 lb) -- Physical Exam Vitals and nursing note reviewed. Constitutional: Appearance: Normal appearance. HENT: Head: Normocephalic and atraumatic. Nose: Nose normal. Cardiovascular: Rate and Rhythm: Tachycardia present. Pulmonary: Effort: Pulmonary effort is normal. Breath sounds: Normal breath sounds. Abdominal: Palpations: Abdomen is soft. Tenderness: There is no abdominal tenderness. Musculoskeletal: General: Normal range of motion. Cervical back: Normal range of motion. Skin: General: Skin is warm. Neurological: General: No focal deficit present. Mental Status: He is alert and oriented to person, place, and time. Results for orders placed or performed during the hospital encounter of 06/19/23 Urinalysis reflex to microscopic and culture Urine Specimen: Urine Result Value Ref Range Color, ur Straw Yellow Clarity, ur Clear Clear Specific gravity, ur 1.008 1.003 - 1.030 pH, urine 5.5 Protein, ur ql Negative Negative Glucose, ur ql Negative Negative Ketones, ur Negative Negative Bilirubin, ur Negative Negative Blood, ur Negative Negative Urobilinogen, ur <2.0 <2.0 mg/dL Nitrite, ur Negative Negative Leukocyte esterase, ur Negative Negative UA reflex comment Reflex conditions for microscopic UA and culture not met. Influenza A/B, RSV, and COVID-19 PCR Nasopharyngeal Specimen: Nasopharyngeal Result Value Ref Range COVID-19 RNA Negative Negative Influenza A RNA Negative Negative Influenza B RNA Negative Negative RSV RNA Negative Negative CBC with auto differential Result Value Ref Range WBC 11.8 (H) 3.8 - 9.9 K/cumm Hgb 15.0 13.0 - 17.5 g/dL Hct 45.5 38.9 - 50.3 % Plt 267 150 - 400 K/cumm MPV 9.6 9.1 - 12.3 fL RBC 5.25 4.30 - 5.80 M/cumm MCV 86.7 81.3 - 96.4 fL MCH 28.6 27.1 - 33.3 pg MCHC 33.0 32.3 - 35.7 g/dL RDW CV 12.6 11.1 - 14.9 % RDW SD 39.8 35.7 - 48.1 fL NRBC abs 0.00 0.00 - 0.01 K/cumm Comprehensive metabolic panel Result Value Ref Range Sodium 134 (L) 135 - 145 mmol/L Potassium, pl 3.9 3.3 - 4.9 mmol/L Chloride 98 97 - 110 mmol/L CO2 23 22 - 32 mmol/L Anion gap 14 2 - 15 mmol/L BUN 16 6 - 25 mg/dL Creatinine 0.80 0.80 - 1.30 mg/dL Glucose 112 70 - 199 mg/dL Calcium 9.2 8.5 - 10.3 mg/dL Bilirubin, total 0.4 0.1 - 1.2 mg/dL Protein, pl 7.6 6.5 - 8.5 g/dL Albumin 4.7 3.5 - 5.0 g/dL Alk phos 66 40 - 130 Units/L ALT 34 7 - 55 Units/L AST 33 10 - 50 Units/L Lipase Result Value Ref Range Lipase 32 10 - 99 Units/L Differential, auto Result Value Ref Range Neutrophil abs 10.1 (H) 1.5 - 6.5 K/cumm Imm gran abs 0.1 0.0 - 0.1 K/cumm Lymphocyte abs 0.8 0.8 - 3.3 K/cumm Monocyte abs 0.6 0.2 - 0.8 K/cumm Eosinophil abs 0.1 0.0 - 0.5 K/cumm Basophil abs 0.0 0.0 - 0.1 K/cumm Neutrophil pct 86.1 % Imm gran pct 0.6 % Lymphocyte pct 6.7 % Monocyte pct 5.2 % Eosinophil pct 1.1 % Basophil pct 0.3 % eGFR Result Value Ref Range eGFR 118 mL/min/1.73 m2 POCT glucose Result Value Ref Range Glucose, POC 106 (H) 71 - 98 mg/dL POCT glucose Result Value Ref Range Glucose, POC 73 71 - 98 mg/dL ECHNIQUE: CT scan of the abdomen and pelvis performed with intravenous and without oral contrast using helical scanning technique with dynamic intravenous contrast injection. Reconstructed coronal and sagittal MPR images reviewed. All images stored on PACS. Automated exposure control was used as a dose optimization technique for this examination. CONTRAST TYPE/DOSE: 100mL of IOVERSOL 350 MG IODINE/ML INTRAVENOUS SYRINGE injected via intravenous COMPARISON: 01/09/2020 FINDINGS: LOWER CHEST: No significant pulmonary abnormalities. No effusion. LIVER: Normal size. No identified cystic or solid masses. GALLBLADDER: Unremarkable BILE DUCTS: No intrahepatic or extrahepatic ductal [...] PERITONEUM: No ascites or free air. RETROPERITONEUM: There are noted to be multiple mildly prominent lymph nodes throughout the mesentery. This is a change from the prior study. REPRODUCTIVE: No significant abnormality. VASCULATURE: No abdominal aortic aneurysm. MUSCULOSKELETAL: No significant abnormality. OTHER: No other abnormality. IMPRESSION: Multiple mildly prominent lymph nodes are noted within the mesentery. This may represent mesenteric adenitis. Follow-up is suggested. THIS IS AN ELECTRONICALLY VERIFIED FINAL REPORT 06/19/2023 6:22 PM - Electronically signed by Sekou Kan M.D. [facility] Medical Decision Making Amount and/or Complexity of Data Reviewed Radiology: ordered. ECG/medicine tests: ordered and independent interpretation performed. Risk Prescription drug management. Decision regarding hospitalization. ED Course as of 06/19/231938 Time: 06/18 1936 Comment: Notifed pt about the lab and CT findings , still does not feel well he is still Tachycardic after 2 lts of fluid , will admit for observation for which he agreed , Discussed with Dr. Winston accepted the pt. By: Markel Hines MD Final diagnoses: Gastroenteritis Tachycardia Markel Hines MD 06/19/231938 * Anais Vega RN - 06/19/2023 1:38 PM CDT Bed: [id number] Expected date: Expected time: Means of arrival: Comments: Jac Rehman Amy Lynn, JOVANNY 06/19/23 1338 * Morgan Oden RN - 06/19/2023 1:24 PM CDT Pt arrives ambulatory to ed from home. Pt states that 2 days of N/V/D. PMH DM documented in this encounter Miscellaneous Notes * Plan of Care - Eleno Gomez RN - 06/20/2023 4:53 PM CDT Goals: Clinical Goals for the Shift: stable heart rate, improve GI symptoms and function Retirement Patient Centered Goal for Treatment: return to baseline health and function Summary: VSS. Medicated for nausea x1 and for abdominal pain x1 this shift. No emesis. Had 5 lose stools. Medicated with imodium x1. Up to restroom. No injury. FS WNL. * Initial Assessments - Ruben Godwin RN - 06/20/2023 10:51 AM CDT CM Initial Assessment Interview Note Information Obtained From: Patient (06/20/231046) Admission Source: ED Impression: nausea and vomiting Plan Includes: evaluation Primary Source of Transportation: Does the patient need discharge transport arranged?: No (06/20/231046) Health Insurance Coverage: [employer] Prescription Coverage: yes Pharmacy: [facility]/pharmacy #[id number] - [place], [place] - [address] [place] [id number] [facility]/pharmacy #[id number] - Closed - [place], [place] - [address] [address] Primary Care Provider: Starla Parham MD Prior to Admission: Functional Status: Independent with ADLs Primary Caregiver: Self Support System: Spouse/Significant Other Home Care Services: No Outpatient Services: No Durable Medical Equipment: None Living Arrangements: Spouse/significant other Type of Residence: Private residence Steps in home?: Yes, Outside of home Number of steps outside: 4 steps Medication management: Independent (06/20/23 1047) SDOH: Transportation: In the past 12 months, has lack of transportation kept you from medical appointments or from getting medications?: No In the past 12 months, has lack of transportation kept you from meetings, work, or from getting things needed for daily living?: No (06/20/23 105) Financial Resource: How hard is it for you to pay for the very basics like food, housing, medical care, and heating?: Not hard at all (06/20/23 1050) Housing: In the last 12 months, was there a time when you were not able to pay the mortgage or rent on time?: No In the last 12 months, how many places have you lived?: 2 In the last 12 months, was there a time when you did not have a steady place to sleep or slept in ashelter (including now)?: No (06/20/23 1051) Utilities: No, (06/20/23 1050) Social Connections: In a typical week, how many times do you talk on the phone with family, friends, or neighbors?: Three times a week How often do you get together with friends or relatives?: Three times a week How often do you attend christianity or mu-ism services?: Never Do you belong to any clubs or organizations such as christianity groups, unions, fraternal or athletic groups, or school groups?: No How often do you attend meetings of the clubs or organizations you belong to?: Never Are you , , , , never , or living with a partner?: Living with partner (06/20/23 1050) Food Insecurity: Within the past 12 months, you worried that your food would run out before you got the money to buymore.: Never true Within the past 12 months, the food you bought just didn't last and you didn't have money to get more.: Never true (06/20/23 1050) Alcohol Use: PHQ Screening Potential discharge needs include: Dialysis: Behavioral Health Services: Behavioral Health Services: No (06/20/23 1047) Patient expects to be Discharged to: Private residence, (06/20/23 1047) Additional Information: Discharge plan discussed with the patient. He lives at home with his girlfriend and their two children. He is independent with all ADLs. Patient drives and is employed. Discharge plan is to return home. No discharge needs anticipated at this time. Patient's Identified Problem/Goal Problem: Ensure acute medical needs are met and that patient has a safe discharge plan. Goal: Secure a discharge plan that patient/family are agreeable with and ensure patient has continuum of care. Case management will follow for discharge planning and send referrals as needed. Ruben Godwin RN * Plan of Care - Katie Silva RN - 06/20/2023 6:55 AM CDT Problem: Health Behavior Goal: Identification of resources available to assist in meeting health care needs will improve 06/20/2023 0747 by Katie Silva RN Outcome: Ongoing Flowsheets (Taken 06/20/2023 0400) Identification of resources available to assist in meeting health care needs will improve: Collaborate with all therapies 06/20/2023 0746 by Katie Silva RN Outcome: Ongoing Flowsheets (Taken 06/20/2023 0400) Identification of resources available to assist in meeting health care needs will improve: Collaborate with all therapies Problem: Lack of Knowledge Goal: Ability to describe self care measures that may prevent or decrease complications related to Type 2 Diabetes will improve 06/20/2023 0747 by Katie Silva RN Outcome: Ongoing Flowsheets (Taken 06/20/2023 0400) Ability to describe self care measures that may prevent or decrease complications related to Type 2Diabetes will improve: Teach blood glucose measurement Teach signs and symptoms of hypoglycemia 06/20/2023745 by Katie Silva RN Outcome: Ongoing Flowsheets (Taken 06/20/2023399) Ability to describe self care measures that may prevent or decrease complications related to Type 2Diabetes will improve: Teach blood glucose measurement Teach signs and symptoms of hypoglycemia Problem: Health Nutrition Goal: Nutritional intake and knowledge related to Diabetes will improve 06/20/2023746 by Katie Silva RN Outcome: Ongoing Flowsheets (Taken 06/20/2023399) Nutritional intake and knowledge related to Diabetes will improve: Instruct on counting carbohydrates 06/20/2023745 by Katie Silva RN Outcome: Ongoing Flowsheets (Taken 06/20/2023399) Nutritional intake and knowledge related to Diabetes will improve: Instruct on counting carbohydrates Problem: Neurosensory Goal: Achieves stable or improved neurological status 06/20/2023746 by Katie Silva RN Outcome: Ongoing Flowsheets (Taken 06/20/2023746) Achieves Stable or Improved Neurological Status: Assess for and report changes in neurological status Maintain blood pressure and fluid volume within ordered parameters to optimize cerebral perfusion and minimize risk of hemorrhage Monitor temperature, glucose, and sodium. Initiate appropriate interventions as ordered 06/20/2023745 by Katie Silva RN Outcome: Ongoing Goal: Achieves maximal functionality and self care 06/20/2023746 by Katie Silva RN Outcome: Ongoing Flowsheets (Taken 06/20/2023399) Achieves maximal functionality and self care: Monitor swallowing and airway patency with patient fatigue and changes in neurological status Encourage and assist patient to increase activity and self care with guidance from therapies 06/20/2023745 by Katie Silva RN Outcome: Ongoing Flowsheets (Taken 06/20/2023399) Achieves maximal functionality and self care: Monitor swallowing and airway patency with patient fatigue and changes in neurological status Encourage and assist patient to increase activity and self care with guidance from therapies Problem: Cardiovascular Goal: Absence of cardiac dysrhythmias or at baseline 06/20/2023746 by Katie Silva RN Outcome: Ongoing Flowsheets (Taken 06/20/2023399) Absence of cardiac dysrhythmias or at baseline: Continuous cardiac monitoring, monitor vital signs, obtain 12 lead EKG if indicated Administer antiarrhythmic and heart rate control medications as ordered Monitor electrolytes and administer replacement therapy as ordered 06/20/2023 0746 by Katie Silva RN Outcome: Ongoing Flowsheets (Taken 06/20/2023399) Absence of cardiac dysrhythmias or at baseline: Continuous cardiac monitoring, monitor vital signs, obtain 12 lead EKG if indicated Administer antiarrhythmic and heart rate control medications as ordered Monitor electrolytes and administer replacement therapy as ordered Goal: Cardiovascular status will improve 06/20/2023 07 by Katie Silva RN Outcome: Ongoing Flowsheets (Taken 06/20/2023399) Cardiovascular status will improve: Monitor for signs and symptoms of chest pain 06/20/2023 07 by Katie Silva RN Outcome: Ongoing Flowsheets (Taken 06/20/2023399) Cardiovascular status will improve: Monitor for signs and symptoms of chest pain Problem: Musculoskeletal Goal: Return mobility to safest level of function 06/20/2023 0747 by Katie Silva RN Outcome: Ongoing Flowsheets (Taken 06/20/2023399) Return mobility to safest level of function: Assess patient stability and activity tolerance for standing, transferring and ambulating with or without assistive devices Assist with transfers and ambulation using safe patient handling equipment as needed Instruct patient/family in ordered activity level 06/20/2023745 by Katie Silva RN Outcome: Ongoing Flowsheets (Taken 06/20/2023399) Return mobility to safest level of function: Assess patient stability and activity tolerance for standing, transferring and ambulating with or without assistive devices Assist with transfers and ambulation using safe patient handling equipment as needed Instruct patient/family in ordered activity level Goal: Return ADL status to a safe level of function 06/20/2023 07 by Katie Silva RN Outcome: Ongoing Flowsheets (Taken 06/20/2023399) Return activities of daily living status to a safe level of function: Assist and instruct patient to increase activity and self care Assess patient's activities of daily living deficits and provide assistive devices as needed 06/20/2023745 by Katie Silva RN Outcome: Ongoing Flowsheets (Taken 06/20/2023399) Return activities of daily living status to a safe level of function: Assist and instruct patient to increase activity and self care Assess patient's activities of daily living deficits and provide assistive devices as needed Goal: Ability to perform activities at highest level will improve 06/20/2023746 by Katie Silva RN Outcome: Ongoing Flowsheets (Taken 06/20/2023399) Ability to perform activities at highest level will improve: Implement use of braces, orthotics 06/20/2023745 by Katie Silva RN Outcome: Ongoing Flowsheets (Taken 06/20/2023399) Ability to perform activities at highest level will improve: Implement use of braces, orthotics Goal: Mobility, ROM and muscle strength will improve 06/20/2023746 by Katie Silva RN Outcome: Ongoing Flowsheets (Taken 06/20/2023399) Mobility, ROM and muscle strength will improve: Encourage mobilization to extent of ability Perform passive and/or assist with range of motion 06/20/2023745 by Katie Silva RN Outcome: Ongoing Flowsheets (Taken 06/20/2023399) Mobility, ROM and muscle strength will improve: Encourage mobilization to extent of ability Perform passive and/or assist with range of motion Problem: Gastrointestinal Goal: Minimal or absence of nausea and vomiting 06/20/2023746 by Katie Silva RN Outcome: Ongoing Flowsheets (Taken 06/20/2023399) Minimal or absence of nausea and vomiting: Assess gastrointestinal status Provide a clean room free from unpleasant odors Administer ordered antiemetic medications as needed, assess medication effects Provide fluid volume management Monitor diagnostic test results 06/20/2023745 by Katie Silva RN Outcome: Ongoing Flowsheets (Taken 06/20/2023399) Minimal or absence of nausea and vomiting: Assess gastrointestinal status Provide a clean room free from unpleasant odors Administer ordered antiemetic medications as needed, assess medication effects Provide fluid volume management Monitor diagnostic test results Goal: Maintains or returns to baseline bowel function 06/20/2023746 by Katie Silva RN Outcome: Ongoing Flowsheets (Taken 06/20/2023399) Maintains or returns to baseline bowel function: Assess bowel function, evaluate bowel sounds and signs of abdominal distention Monitor amount, characteristics and/or frequency of stool Encourage oral fluids to ensure adequate hydration Administer IV fluids as ordered to ensure adequate hydration Administer ordered medications as needed 06/20/2023745 by Katie Silva RN Outcome: Ongoing Flowsheets (Taken 06/20/2023399) Maintains or returns to baseline bowel function: Assess bowel function, evaluate bowel sounds and signs of abdominal distention Monitor amount, characteristics and/or frequency of stool Encourage oral fluids to ensure adequate hydration Administer IV fluids as ordered to ensure adequate hydration Administer ordered medications as needed Goal: Maintains adequate nutritional intake 06/20/2023746 by Katie Silva RN Outcome: Ongoing Flowsheets (Taken 06/20/2023399) Maintains adequate nutritional intake: Monitor I&O, weight and lab values 06/20/2023745 by Katie Silva RN Outcome: Ongoing Flowsheets (Taken 06/20/2023399) Maintains adequate nutritional intake: Monitor I&O, weight and lab values Problem: Discharge Planning Goal: Understanding discharge needs will improve 06/20/2023746 by Katie Silva RN Outcome: Progressing Flowsheets (Taken 06/20/2023399) Understanding of discharge needs will improve: Discuss information regarding discharge instructions 06/20/2023745 by Katie Silva RN Outcome: Ongoing Flowsheets (Taken 06/20/2023399) Understanding of discharge needs will improve: Discuss information regarding discharge instructions Problem: Lack of Knowledge Goal: Ability to develop a pain control plan will improve 06/20/2023746 by Katie Silva RN Outcome: Progressing Flowsheets (Taken 06/20/2023399) Ability to develop a pain control plan will improve: Educate pain scale for assessing level of pain Teach notification to healthcare provider of episodes of pain 06/20/2023745 by Katie Silva RN Outcome: Ongoing Flowsheets (Taken 06/20/2023399) Ability to develop a pain control plan will improve: Educate pain scale for assessing level of pain Teach notification to healthcare provider of episodes of pain Problem: Medication Goal: Satisfaction with pain management medication regimen will improve 06/20/2023746 by Katie Silva RN Outcome: Progressing Flowsheets (Taken 06/20/2023399) Satisfaction with pain management medication regimen will improve: Assess satisfaction with pain management regimen Report inadequate pain control to healthcare provider 06/20/2023745 by Katie Silva RN Outcome: Ongoing Flowsheets (Taken 06/20/2023399) Satisfaction with pain management medication regimen will improve: Assess satisfaction with pain management regimen Report inadequate pain control to healthcare provider Problem: Sensory Goal: Ability to identify factors that increase pain levels will improve while working to decrease the patient's pain levels 06/20/2023746 by Katie Silva RN Outcome: Progressing Flowsheets (Taken 06/20/2023399) Ability to identify factors that increase pain levels will improve while working to decrease patients pain levels: Assess pain status Assess effects of pain control measures 06/20/2023745 by Katie Silva RN Outcome: Ongoing Flowsheets (Taken 06/20/2023399) Ability to identify factors that increase pain levels will improve while working to decrease patients pain levels: Assess pain status Assess effects of pain control measures Problem: Coping Goal: Ability to cope will improve 06/20/2023746 by Katie Silva RN Outcome: Progressing Flowsheets (Taken 06/20/2023399) Ability to cope will Improve: Encourage vebalization of feelings surrounding pain Provide emotional support 06/20/2023745 by Katie Silva RN Outcome: Ongoing Flowsheets (Taken 06/20/2023399) Ability to cope will Improve: Encourage vebalization of feelings surrounding pain Provide emotional support Problem: Cardiovascular Goal: Maintains optimal cardiac output and hemodynamic stability 06/20/2023746 by Katie Silva RN Outcome: Progressing Flowsheets (Taken 06/20/2023399) Maintain optimal cardiac output and hemodynamic Stability: Monitor vital signs, rhythm, and trends Assess quality of pulses, skin color and temperature Administer fluid and/or volume expanders as ordered 06/20/2023745 by Katie Silva RN Outcome: Ongoing Flowsheets (Taken 06/20/2023 0400) Maintain optimal cardiac output and hemodynamic Stability: Monitor vital signs, rhythm, and trends Assess quality of pulses, skin color and temperature Administer fluid and/or volume expanders as ordered Goals: Clinical Goals for the Shift: stable heart rate, improve GI symptoms and function Line Service Technician Patient Centered Goal for Treatment: return to baseline health and function Summary:Sinus tachycardia, rate improved. Pt.had multiple episodes of diarrhea this shift. Medicated for nausea and pain x2 with improvement. IVF infusing as ordered. Labs improving. Cultures pending. * ED Procedure Note - Markel Hines MD - 06/19/2023 6:18 PM CDTAssociated Order(s): ECG 12 lead Procedure ECG 12 lead Date/Time: 06/19/2023 6:18 PM Performed by: Markel Hines MD Authorized by: Markel Hines MD Rate: ECG rate: 138 ECG rate assessment: tachycardic Rhythm: Rhythm: sinus tachycardia Ectopy: Ectopy: none QRS: QRS axis: Normal QRS intervals: Normal Conduction: Conduction: normal ST segments: ST segments: Normal T waves: T waves: non-specific Interpretation: Interpretation: abnormal Markel Hines MD 06/19/23 1819 documented in this encounter Plan of Treatment Not on file documented as of this encounter Procedures Procedure Name Priority Date/Time Associated Diagnosis Comments POCT GLUCOSE DEVICE Routine 06/21/2023 1 1:51 AM CDT POCT GLUCOSE DEVICE Routine 06/21/2023 7 :30 AM CDT POCT GLUCOSE DEVICE Routine 06/21/2023 2 :17 AM CDT POCT GLUCOSE DEVICE Routine 06/20/2023 9 :22 PM CDT POCT GLUCOSE DEVICE Routine 06/20/2023 4 :44 PM CDT POCT GLUCOSE DEVICE Routine 06/20/2023 1 1:41 AM CDT TRANSTHORACIC ECHO (TTE) COMPLETE W DOPPLER/CF W CONTRAST Routine 06/20/2023 10:30 AM CDT POCT GLUCOSE DEVICE Routine 06/20/2023 8 :01 AM CDT TROPONIN T HIGH-SENSITIVITY 6-HOUR Timed 06/20/2023 4:45 AM CDT TROPONIN T HIGH-SENSITIVITY 4-HR Timed 06/20/2023 2:36 AM CDT DIFFERENTIAL AUTO Routine 06/20/2023 2:3 6 AM CDT CBC WITH AUTO DIFFERENTIAL Routine 06/20/2023 2:36 AM CDT POCT GLUCOSE DEVICE Routine 06/20/2023 2 :02 AM CDT BLOOD CULTURE STAT 06/20/2023 1:31 AM CDT SEPSIS LACTATE WITH REFLEX STAT 06/20/2023 1:26 AM CDT EGFR Routine 06/20/2023 1:26 AM CDT DIFFERENTIAL AUTO Routine 06/20/2023 1:2 6 AM CDT CBC WITH AUTO DIFFERENTIAL Routine 06/20/2023 1:26 AM CDT BASIC METABOLIC PANEL Routine 06/20/2023 1:26 AM CDT TROPONIN T HIGH-SENSITIVITY 2-HOUR Timed 06/20/2023 12:[address] LUMBAR SPINE WO CONTRAST Routine 06/19/2023 11:[address] THORACIC SPINE WO CONTRAST IP Routine 06/19/2023 11:[address] FACIAL BONES WO CONTRAST ED Urgent/IP Urgent 06/19/2023 10:[address] HEAD WO CONTRAST ED Urgent/IP Urgent 06/19/2023 10:48 PM CDT C. DIFFICILE TESTING STAT 06/19/2023 10:18 PM CDT STOOL CULTURE STAT 06/19/2023 10:18 PM CDT PRO B-TYPE NATRIURETIC PEPTIDE Add-On 06/19/2023 9:52 PM CDT BLOOD CULTURE STAT 06/19/2023 9:52 PM CDT CRP (ACUTE PHASE) Add-On 06/19/2023 9:5 2 PM CDT TROPONIN T HIGH-SENSITIVITY SERIES (BASELINE, 2HR, 4HR, 6HR) STAT 06/19/2023 9:51 PM CDT THYROID FUNCTION CASCADE STAT 06/19/2023 9:51 PM CDT APTT STAT 06/19/2023 9:51 PM CDT PROTIME-INR STAT 06/19/2023 9:51 PM CDT PHOSPHORUS STAT 06/19/2023 9:51 PM CDT MAGNESIUM STAT 06/19/2023 9:51 PM CDT XR CHEST 1 VIEW ED Urgent/IP Urgent 06/19/2023 8:48 PM CDT POCT GLUCOSE DEVICE Routine 06/19/2023 8 :[address] ABDOMEN PELVIS W CONTRAST ED 06/19/2023 5:58 PM CDT ECG 12-LEAD STAT 06/19/2023 5:25 PM CDT POCT GLUCOSE DEVICE Routine 06/19/2023 4 :22 PM CDT URINALYSIS AND REFLEX TO MICROSCOPIC AND CULTURE STAT 06/19/2023 2:30 PM CDT INFLUENZA A/B, RSV, AND COVID-19 PCR Routine 06/19/2023 1:47 PM CDT ERYTHROCYTE SEDIMENTATION RATE Add-On 06/19/2023 1:34 PM CDT EGFR STAT 06/19/2023 1:33 PM CDT DIFFERENTIAL AUTO STAT 06/19/2023 1:3 3 PM CDT CBC WITH AUTO DIFFERENTIAL STAT 06/19/2023 1:33 PM CDT LIPASE STAT 06/19/2023 1:33 PM CDT COMPREHENSIVE METABOLIC PANEL STAT 06/19/2023 1:33 PM CDT POCT GLUCOSE DEVICE Routine 06/19/2023 1 :27 PM CDT documented in this encounter Results * POCT glucose (06/21/2023 11:51 AM CDT) [facility] Signature Glucose, POC 88 71 - 98 mg/dL Blood 06/21/2023 11:5 1 AM CDT 06/21/2023 11:51 AM CDT Justice Leiva Clarisse DO LAB POCT ORDERABLES - DEVICE Final Result [facility] [place] 1 [facility] Department of Laboratories [place], [place] [id number] * POCT glucose (06/21/2023 7:30 AM CDT) Glucose, POC 83 71 - 98 mg/dL Blood 06/21/2023 7:30 AM CDT 06/21/2023 7:30 AM CDT Justice Robb DO LAB POCT ORDERABLES - DEVICE Final Result Performing Organization Address City/[facility]/ZIP Co de Phone Number JUSTYNA DAHL (FLY) 1 [facility] [address] [place] [address] * POCT glucose (06/21/2023 2:17 AM CDT) Glucose, POC 77 71 - 98 mg/dL Blood 06/21/2023 2:17 AM CDT 06/21/2023 2:17 AM CDT Justice Leiva Clarisse DO LAB POCT ORDERABLES - DEVICE Final Result Performing Organization Address [facility] Co de Phone Number JUSTYNA DAHL (FLY) 1 [facility] [address] [place] [address] * POCT glucose (06/20/2023 9:22 PM CDT) Glucose, POC 96 71 - 98 mg/dL Blood 06/20/2023 9:22 PM CDT 06/20/2023 9:22 PM CDT Justice Robb DO LAB POCT ORDERABLES - DEVICE Final Result Performing Organization Address [facility] Co de Phone Number JUSTYNA DAHL (FLY) 1 [facility] [address] [place] [address] * POCT glucose (06/20/2023 4:44 PM CDT) Glucose, POC 91 71 - 98 mg/dL Blood 06/20/2023 4:44 PM CDT 06/20/2023 4:44 PM CDT Justice Robb DO LAB POCT ORDERABLES - DEVICE Final Result Performing Organization Address [facility] Co de Phone Number JUSTYNA DAHL ([place]) 1 [place] [address] * POCT glucose (06/20/2023 11:41 AM CDT) Glucose, POC 84 71 - 98 mg/dL Blood 06/20/2023 11:4 1 AM CDT 06/20/2023 11:41 AM CDT Justice Robb DO LAB POCT ORDERABLES - DEVICE Final Result Performing Organization Address [facility] de Phone Number JUSTYNA Chan[facility]) [address] [place] [address] * TRANSTHORACIC ECHO (TTE) COMPLETE W DOPPLER/CF W CONTRAST (06/20/2023 10:30 AM CDT) Anatomical Region Laterality Modality Ultrasound 06/20/2023 9:55 AM CDT Narrative 06/20/2023 2:31 PM CDT [address] [address] Echocardiogram Report ADDENDUM Patient Name: AMA REHMAN W : 1985 Study Date: 06/20/2023 9:55:13 AM Gender: M Tech: Location: [id number] Ref Provider: DEEDEE WINSTON ?Height(Cm): 180 BSA: 2.64 Weight(Kg): 139.3 Quality: Definity contrast agent used to enhance endocardial border definition Order Provider: DEEDEE WINSTON PROCEDURES: Echocardiographic Report: Transthoracic echocardiogram with complete 2D, M-Mode, color Doppler examination and contrast. INDICATIONS: sepsis, persistent tachycardia - Measurements: 2D/M Mode ?Doppler Measurement ?Value ?Normal Range ?Measurement ?Value ?Normal Range EF Mod 4C ?54.0 ? percent ? ZARIA Vmax ? 4.36 ? cm2 LA Dimension MM ?3.28 ? [ 3.00 - 4.00 ] cm ?AV Mean PG ? 5 ?mmHg AoR Diam MM ?4.11 ? [ 3.10 - 3.70 ] cm ?AV Peak Brenden ?1.37 ? [ 1.00 - 1.70 ] m/s ACS MM ? 2.45 ? [ 1.50 - 2.60 ] cm ?AV VTI ? 24.55 ?cm LVOT Diam ?2.63 ?cm LVOT Peak Brenden ?1.10 ?[ 0.70 - 1.10 ] m/s LVOT VTI ? 18.94 ? cm MV E Peak Brenden ?1.25 ?[ 0.60 - 1.30 ] m/s MV A Peak Brenden ?0.41 ?[ 1.00 - 1.20 ] m/s MV Mean PG ? 3 ? mmHg MV PHT ? 40 ?[ 20 - 100 ] msec MVA ?4.00 MV Decel Time ?138 ? [ 104 - 258 ] msec PV Peak Brenden ?1.13 ?[ 0.40 - 0.80 ] m/s E` ? 0.11 ?m/s E/E` ? 11.51 ? [ <= 10.00 ] Measurement ?Value ?Normal Range ?Measurement ?Value ?Normal Range 2D/M Mode ?Doppler - FINDINGS: Atrial Septum: Normal atrial septum. Left Ventricle: Normal left ventricular systolic function with no focal wall motion abnormalities. Normal left ventricular size. Normal left ventricular wall thickness. Normal left ventricular diastolic function. Ejection fraction is measured at 54 %. Left Atrium: The left atrium is normal in size. Right Ventricle: Normal right ventricular size. Normal right ventricular systolic function. Right Atrium: The right atrium is normal in size. Aortic Valve: Normal structure of the aortic valve. No evidence of hemodynamically significant aortic stenosis by Doppler. Mitral Valve: Normal structure of the mitral valve. No mitral valve regurgitation is seen. Pulmonic Valve: Pulmonic valve not well visualized. Tricuspid Valve: Tricuspid valve not well visualized. Pericardium: Normal pericardium with no significant pericardial effusion. Aorta: Normal aortic root. No aortic root dilation. IVC: Normal size and normal respiratory collapse consistent with normal right atrial pressure (<5 mmHg). Pulmonary Artery: Pulmonary artery not well visualized. CONCLUSIONS: Normal left ventricular systolic function with no focal wall motion abnormalities. Normal left ventricular size. Normal left ventricular wall thickness. Normal left ventricular diastolic function. Ejection fraction is measured at 54 %. Normal right ventricular size. Normal right ventricular systolic function. Normal structure of the mitral valve. No mitral valve regurgitation is seen. Normal structure of the aortic valve. No evidence of hemodynamically significant aortic stenosis by Doppler. Normal pericardium with no significant pericardial effusion. Technically difficult study with limited views visualization. Valves in general are poorly visualized. Optison contrast utilized. Patient appears to be in sinus tachycardia during the study. Electronically Signed By: Mariely Lugo MD 2023-06-20 14:30:52 CDT Electronically Amended By: Mariely Lugo MD 2023-06-20 14:31:11 CDT [ADDENDUM] Procedure Note Mariely Lugo MD - 06/20/[address] [address] Echocardiogram Report ADDENDUM Patient Name: AMA REHMAN W : 1985 Study Date: 06/20/2023 9:55:13 AM Gender: M Tech: Location: [place] [address] Ref Provider: DEEDEE WINSTON Height(Cm): 180 BSA: 2.64 Weight(Kg): 139.3 Quality: Definity contrast agent used to enhance endocardial borderdefinition Order Provider: DEEDEE WINSTON PROCEDURES: Echocardiographic Report: Transthoracic echocardiogram with complete 2D, M-Mode, color Dopplerexamination and contrast. INDICATIONS: sepsis, persistent tachycardia - Measurements: 2D/M ModeDoppler Measurement Value Normal Range MeasurementValue Normal Range EF Mod 4C 54.0 percent ZARIA Vmax4.36 cm2 LA Dimension MM 3.28 [ 3.00 - 4.00 ] cm AV Mean PG5 mmHg AoR Diam MM 4.11 [ 3.10 - 3.70 ] cm AV Peak Vel1.37 [ 1.00 - 1.70 ] m/s ACS MM 2.45 [ 1.50 - 2.60 ] cm AV VTI24.55 cm LVOT Diam 2.63 cm LVOT Peak Brenden 1.10 [ 0.70 - 1.10 ] m/s LVOT VTI 18.94 cm MV E Peak Brenden 1.25 [ 0.60 - 1.30 ] m/s MV A Peak Brenden 0.41 [ 1.00 - 1.20 ] m/s MV Mean PG 3 mmHg MV PHT 40 [ 20 - 100 ] msec MVA 4.00 MV Decel Time 138 [ 104 - 258 ] msec PV Peak Brenden 1.13 [ 0.40 - 0.80 ] m/s E` 0.11 m/s E/E` 11.51 [ <= 10.00 ] Measurement Value Normal Range MeasurementValue Normal Range 2D/M ModeDoppler - FINDINGS: Atrial Septum: Normal atrial septum. Left Ventricle: Normal left ventricular systolic function with no focal wall motionabnormalities. Normal left ventricular size. Normal left ventricular wall thickness. Normal leftventricular diastolic function. Ejection fraction is measured at 54 %. Left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 been verified by the [facility]. ?? Results must be considered in the clinical context, and a negative result does not rule out infection. Interpretive Data last revised 2023 Nasopharyngeal 06/19/2023 1: 47 PM CDT 06/19/2023 1:50 PM CDT Narrative [facility] ([place]) - 06/19/2023 2:28 PM CDT Is the Patient experiencing symptoms consistent with COVID?->Yes La Hendrix MD LAB MICROBIOLOGY - GENERAL ORDERABLES Final Result Performing Organization Address [facility] Co de Phone Number JUSTYNA [facility] ([place]) 1 [place] [address] * Erythrocyte sedimentation rate (06/19/2023 1:34 PM CDT) Erythrocyte sedimentation rate 9 1 - 15 mm/hr Blood 06/19/2023 1:34 PM CDT 06/19/2023 11:21 PM CDT Deedee Winston MD LAB BLOOD ORDERABLES Fin al Result Performing Organization Address [facility] Co de Phone Number JUSTYNA [facility] ([place]) 1 [place] [address] * eGFR (06/19/2023 1:33 PM CDT) eGFR 118 mL/min/1. 73 m2 Comment: Interpretive Data Reference [...] interpretive data was last reviewed 2021. Blood 06/19/2023 1:33 PM CDT 06/19/2023 2:09 PM CDT us Markel Hines MD LAB BLOOD ORDERABLES Final Res ult JUSTYNA [facility] ([place]) 1 [facility] [place] [address] * (ABNORMAL) Differential, auto (06/19/2023 1:33 PM CDT) Neutrophil abs 10.1(H) 1.5 - 6.5 K/cumm Imm gran abs 0.1 0.0 - 0.1 K/cumm [facility] ([place]) Lymphocyte abs 0.8 0.8 - 3.3 K/cumm [facility] ([place]) Monocyte abs 0.6 0.2 - 0.8 K/cumm [facility] ([place]) Eosinophil abs 0.1 0.0 - 0.5 K/cumm [facility] ([place]) Basophil abs 0.0 0.0 - 0.1 K/cumm [facility] ([place]) Neutrophil pct 86.1 % [facility] ([place]) Comment: Interpretive Data Percent cell count reference ranges are not reported, since discordance with absolute values may lead to misinterpretation of CBC data. Current Interpretive Data was last revised on 2017. Imm gran pct 0.6 % [facility] ([place]) Comment: Interpretive Data Percent cell count reference ranges are not reported, since discordance with absolute values may lead to misinterpretation of CBC data. Current Interpretive Data was last revised on 2017. Lymphocyte pct 6.7 % [facility] ([place]) Comment: Interpretive Data Percent cell count reference ranges are not reported, since discordance with absolute values may lead to misinterpretation of CBC data. Current Interpretive Data was last revised on 2017. Monocyte pct 5.2 % [facility] ([place]) Comment: Interpretive Data Percent cell count reference ranges are not reported, since discordance with absolute values may lead to misinterpretation of CBC data. Current Interpretive Data was last revised on 2017. Eosinophil pct 1.1 % [facility] ([place]) Comment: Interpretive Data Percent cell count reference ranges are not reported, since discordance with absolute values may lead to misinterpretation of CBC data. Current Interpretive Data was last revised on 2017. Basophil pct 0.3 % [facility] ([place]) Comment: Interpretive Data Percent cell count reference ranges are not reported, since discordance with absolute values may lead to misinterpretation of CBC data. Current Interpretive Data was last revised on 2017. Blood 06/19/2023 1:33 PM CDT 06/19/2023 2:09 PM CDT Markel Hines MD LAB BLOOD ORDERABLES Final Res ult JUSTYNA DAHL ([place]) 1 [facility] Department [place] [address] * Lipase (06/19/2023 1:33 PM CDT) Lipase 32 10 - 99 Units/L Blood 06/19/2023 1:33 PM CDT 06/19/2023 2:09 PM CDT us La Hendrix MD LAB BLOOD ORDERABLE S Final Result JUSTYNA [facility] ([place]) 1 [facility] Department of Laboratories [place], [place] [id number] * (ABNORMAL) Comprehensive metabolic panel (06/19/2023 1:33 PM CDT) Sodium 134(L) 135 - 145 mmol/L Potassium, pl 3.9 3.3 - 4.9 mmol/L [facility] ([place]) Chloride 98 97 - 110 mmol/L [facility] ([place]) CO2 23 22 - 32 mmol/L [facility] ([place]) Anion gap 14 2 - 15 mmol/L [facility] ([place]) BUN 16 6 - 25 mg/dL [facility] ([place]) Creatinine 0.80 0.80 - 1.30 mg/dL [facility] ([place]) Glucose 112 70 - 199 mg/dL [facility] ([place]) [...] interpretive data was last revised 2022. Calcium 9.2 8.5 - 10.3 mg/dL [facility] ([place]) Bilirubin, total 0.4 0.1 - 1.2 mg/dL [facility] ([place]) Protein, pl 7.6 6.5 - 8.5 g/dL [facility] ([place]) Albumin 4.7 3.5 - 5.0 g/dL [facility] ([place]) Alk phos 66 40 - 130 Units/L [facility] ([place]) ALT 34 7 - 55 Units/L [facility] ([place]) AST 33 10 - 50 Units/L [facility] ([place]) Blood (Blood, Venous) 06/19/2023 1:33 PM CDT 06/19/2023 2:09 PM CDT Markel Hines MD LAB BLOOD ORDERABLES Final Res ult [facility] ([place]) 1 [facility] [place] [address] * (ABNORMAL) CBC with auto differential (06/19/2023 1:33 PM CDT) WBC 11.8(H) 3.8 - 9.9 K/cumm Hgb 15.0 13.0 - 17.5 g/dL [facility] ([place]) Hct 45.5 38.9 - 50.3 % [facility] ([place]) Plt 267 150 - 400 K/cumm [facility] ([place]) MPV 9.6 9.1 - 12.3 fL [facility] ([place]) RBC 5.25 4.30 - 5.80 M/cumm [facility] ([place]) MCV 86.7 81.3 - 96.4 fL [facility] ([place]) MCH 28.6 27.1 - 33.3 pg [facility] ([place]) MCHC 33.0 32.3 - 35.7 g/dL [facility] ([place]) RDW CV 12.6 11.1 - 14.9 % [facility] ([place]) RDW SD 39.8 35.7 - 48.1 fL [facility] ([place]) NRBC abs 0.00 0.00 - 0.01 K/cumm [facility] ([place]) Blood (Blood, Venous) 06/19/2023 1:33 PM CDT 06/19/2023 2:09 PM CDT us Markel Hines MD LAB BLOOD ORDERABLES Final Res ult [facility] ([place]) 1 [facility] [place] [address] * (ABNORMAL) POCT glucose (06/19/2023 1:27 PM CDT) Glucose, POC 106(H) 71 - 98 mg/dL Blood 06/19/2023 1:27 PM CDT 06/19/2023 1:27 PM CDT us Notinfile Unknown LAB POCT ORDERABLES - DEVICE F inal Result JUSTYNA DAHL ([place]) 1 [facility] [place] [address] documented in this encounter Visit Diagnoses Diagnosis Gastroenteritis- Primary Other and unspecified noninfectious gastroenteritis and colitis Gastroenteritis Other and unspecified noninfectious gastroenteritis and colitis Tachycardia Unspecified tachycardia Essential hypertension Unspecified essential hypertension Type 2 diabetes mellitus without complication (CMS/HCC) (HCC) Sepsis (HCC) Sinus tachycardia Other specified cardiac dysrhythmias STACIE (obstructive sleep apnea) Obstructive sleep apnea (adult) (pediatric) Irritable bowel syndrome documented in this encounter Admitting Diagnoses Diagnosis Gastroenteritis Other and unspecified noninfectious gastroenteritis and colitis documented in this encounter Administered Medications Inactive Administered Medications - up to 3 most recent administrations Medication Order MAR Action Action Date Dose Rate Site acetaminophen (TYLENOL) tablet 1,000 mg 1,000 mg, oral, Once, On Sat06/19/23 at 1348, For 1 dose Given 06/19/2023 2:06 PM CDT 1,000 mg acetaminophen (TYLENOL) tablet 650 mg 650 mg, oral, Every 6 hours PRN, 1st line for pain, fever, Starting on Sat06/19/23 at 2039 Given 06/21/2023 3:26 AM CDT 650 mg Given 06/19/2023 9:24 PM CDT 650 mg amLODIPine (NORVASC) tablet 5 mg 5 mg, oral, Daily, First dose on Eboni 06/20/23 at 0900 Given 06/21/2023 8:19 AM CDT 5 mg Given 06/20/2023 8:13 AM CDT 5 mg cefepime (MAXIPIME) 2,000 mg in sodium chloride 0.9% 100 mL IVPB 2,000 mg, intravenous, at 200 mL/hr, Administer over 30 Minutes, Every 8 hours scheduled, First dose on Sat06/19/23 at 2040, Mini-Bag Plus bag, Indications: SepsisIndications:Sepsis New Bag 06/21/2023 5:39 AM CDT 2,000 mg 200 mL /hr New Bag 06/20/2023 9:46 PM CDT 2,000 mg 200 mL/hr New Bag 06/20/2023 3:04 PM CDT 2,000 mg 200 mL/hr dextrose (D10W) 10% bolus 250 mL 250 mL, intravenous, at 1,000 mL/hr, Administer over 15 Minutes, Every 15 min PRN, blood glucose less than 70 mg/dL and UNABLE to swallow/take PO glucose/juice., Starting on Sat06/19/23 at 2043, After treatment for hypoglycemia, recheck BG followed by treatment every 15 minutes until the BG is greater than 100 mg/dL. Then check BG 1 hour post treatment. If BG is less than 100 mg/dL, repeat Q15 minute BG checks and treatment. Call MD for each episode of hypoglycemia., Indications: hypoglycemic disorderIndications:hypoglycemi c disorder dextrose gel in packet 15 g 15 g, oral, Every 15 min PRN, low blood sugar, blood glucose less than 70 mg/dL, Starting on Sat06/19/23 at 2043, If patient is alert and able to eat/drink, give 15 gm glucose or one juice (4 fluid ounces) NOT ORANGE JUICE. After treatment for hypoglycemia, recheck BG followed by treatment every 15 minutes until the BG is greater than 100 mg/dL. Then check BG 1 hour post-treatment. If BG is less than 100 mg/dL, repeat Q15 minute BG checks and treatment. Call MD for each episode of hypoglycemia., Indications: hypoglycemic disorderIndications:hypoglycemi c disorder enoxaparin (LOVENOX) syringe 40 mg 40 mg, subcutaneous, Every 12 hours scheduled, First dose on Eboni 06/20/23 at 1400, Indications: Deep Vein Thrombosis PreventionIndications:Deep Vein Thrombosis Prevention Given 06/21/2023 8:19 AM CDT 40 mg Left Upper Abdomen Given 06/20/2023 9:46 PM CDT 40 mg Le ft Lower Abdomen Given 06/20/2023 2:35 PM CDT 40 mg Le ft Lower Abdomen fentaNYL (SUBLIMAZE) preservative free injection 50 mcg 50 mcg, intravenous, Once, On Sat06/19/23 at 1802, For 1 dose Given 06/19/2023 6:08 PM CDT 50 mcg glucagon injection 1 mg 1 mg, intramuscular, Every 30 min PRN, low blood sugar, blood glucose less than 70 mg/dL AND no IV access AND unable to take PO glucose/juice., Starting on Sat06/19/23 at 2044, After Glucagon is administered, position patient on side if possible to avoid aspiration. Obtain IV access. Follow glucagon treatment with glucose treatment or IV dextrose. After treatment for hypoglycemia, recheck BG followed by treatment every 15 minutes until the BG is greater than 100 mg/dL. Then check BG 1 hour post treatment. If BG is less than 100 mg/dL, repeat Q15 minute BG checks and treatment. Call MD for each episode of hypoglycemia. Reconstitute 1 mg vial with 1 mL SWFI. Use immediately following reconstitution. HYDROmorphone (DILAUDID) injection 1 mg 1 mg, intravenous, Administer over 2 Minutes, Once, On Sat06/19/23 at 1921, For 1 dose, Indications: PainIndications:Pain Given 06/19/2023 7:30 PM CDT 1 mg HYDROmorphone (PF) (DILAUDID) injection 0.2 mg 0.2 mg, intravenous, Administer over 2 Minutes, Every 3 hours PRN, 1st line for pain, Starting on Sat06/19/23 at 1935, Indications: PainIndications:Pain Given 06/20/2023 7:07 PM CDT 0.2 mg Given 06/20/2023 12:03 PM CDT 0.2 mg Given 06/20/2023 5:42 AM CDT 0.2 mg ibuprofen (ADVIL,MOTRIN) tablet 400 mg 400 mg, oral, 4 times daily PRN, 2nd line for pain, fever, Starting on Sat06/19/23 at 2154 insulin lispro (HumaLOG, ADMELOG) 100 unit/mL pen injection 0-4 Units 0-4 Units, subcutaneous, Nightly, First dose on Sat06/19/23 at 2100, Blood glucose mg/dL: 199 or less: No insulin 200-249: add 1 unit 250-299: add 2 units 300-349: add 3 units and notify physician for adjustment of insulin orders. 350-399: add 4 units and notify physician for adjustment of insulin orders. Over 400: Notify physician for adjustment of insulin orders. Do NOT hold for NPO Status Attach new pen needle required for each administration. Each new pen needle must be primed with 2 units prior to administration., Indications: Diabetes MellitusIndications:Diabetes Mellitus insulin lispro (HumaLOG, ADMELOG) 100 unit/mL pen injection 0-5 Units 0-5 Units, subcutaneous, 3 times daily with meals, First dose on Sat06/20/23 at 0800, Blood glucose mg/dL: 149 or less: No insulin 150-199: add 1 unit 200-249: add 2 units 250-299: add 3 units 300-349: add 4 units and notify physician for adjustment of insulin orders. 350-399: add 5 units and notify physician for adjustment of insulin orders. Over 400: Notify physician for adjustment of insulin orders. Do NOT hold for NPO Status Attach new pen needle required for each administration. Each new pen needle must be primed with 2 units prior to administration., Indications: Diabetes MellitusIndications:Diabetes Mellitus ioversoL (OPTIRAY 350) syringe 100 mL 100 mL, intravenous, Once in imaging, contrast, Starting on Sat06/19/23 at 1758, For 1 dose Contrast Given 06/19/2023 5:59 PM CDT 100 mL loperamide (IMODIUM) capsule 2 mg 2 mg, oral, 3 times daily, First dose on Sat06/20/23 at 1600, Maximum recommended dose 16 mg/day Given 06/21/2023 8:19 AM CDT 2 mg Given 06/20/2023 9:47 PM CDT 2 mg Given 06/20/2023 2:34 PM CDT 2 mg metoprolol (LOPRESSOR) injection 2.5 mg 2.5 mg, intravenous, Administer over 1 Minutes, Once, On Sat06/19/23 at 2130, For 1 dose Given 06/19/2023 9:23 PM CDT 2.5 mg metroNIDAZOLE (FLAGYL) 500 mg/100 mL in sodium chloride (premix) 500 mg 500 mg, intravenous, at 200 mL/hr, Administer over 30 Minutes, Every 8 hours scheduled, First dose on Sat06/19/23 at 2230, Room temperature only, Indications: Abdominal/Pelvic Infection, SepsisIndications:Abdominal/Pelvic Infection,Sepsis New Bag 06/21/2023 5:40 AM CDT 500 mg 200 mL/hr New Bag 06/20/2023 9:53 PM CDT 500 mg 200 mL/hr New Bag 06/20/2023 3:44 PM CDT 500 mg 200 mL/hr ondansetron (ZOFRAN) injection 4 mg 4 mg, intravenous, Administer over 2 Minutes, Once as needed, nausea, vomiting, If patient unable to tolerate PO, Starting on Sat06/19/23 at 1333, For 1 dose, Do not administer if patient had 8mg administered within 6 hours of patient presenting to ED Do not administer if patient was formally diagnosed with prolonged QT syndrome Given 06/19/2023 6:08 PM CDT 4 mg ondansetron (ZOFRAN) injection 4 mg 4 mg, intravenous, Administer over 2 Minutes, Every 6 hours PRN, nausea, vomiting, if not tolerating PO, Starting on Sat06/19/23 at 1934, Indications: Nausea and VomitingIndications:Nausea and Vomiting Given 06/20/2023 7:03 PM CDT 4 mg Given 06/20/2023 10:46 AM CDT 4 mg Given 06/20/2023 5:43 AM CDT 4 mg ondansetron ODT (ZOFRAN-ODT) disintegrating tablet 4 mg 4 mg, oral, Every 6 hours PRN, nausea, vomiting, Starting on Sat06/19/23 at 1934, Indications: Nausea and VomitingIndications:Nausea and Vomiting pantoprazole DR (PROTONIX) extended release tablet 40 mg 40 mg, oral, Nightly, First dose on Eboni 06/20/23 at 2100, Do not crush, chew, cut, dissolve, open or otherwise manipulate tablet/capsule., Indications: Treatment of Non-Bleeding Gastric DisorderIndications:Treatment of Non-Bleeding Gastric Disorder Given 06/20/2023 9:47 PM CDT 40 mg perflutren protein-a (OPTISON) 3 mL in sodium chloride 0.9% 8 mL syringe 1-8 mL, intravenous, Once in imaging, contrast, Starting on Eboni 06/20/23 at 1128, For 1 dose, Intra-Procedure (CV) Contrast Given 06/20/2023 11:29 AM CDT 2 mL sodium chloride 0.9% bolus 1,000 mL 1,000 mL, intravenous, at 1,000 mL/hr, Administer over 1 Hours, Once, On Sat06/19/23 at 1345, For 1 dose New Bag 06/19/2023 1:46 PM CDT 1,000 mL 1000 mL/hr sodium chloride 0.9% bolus 1,000 mL 1,000 mL, intravenous, Once, On Sat06/19/23 at 1647, For 1 dose New 06/19/2023 4:20 PM CDT 1,000 mL sodium chloride 0.9% infusion 125 mL/hr, intravenous, Continuous, Starting on Sat06/19/23 at 1915 New Bag 06/21/2023 8:23 AM CDT 125 mL/hr 125 mL/hr Rate/Dose Verify 06/21/2023 5:40 AM CDT 125 mL/hr 125 mL/ hr New 06/20/2023 9:49 PM CDT 125 mL/hr 125 mL/hr vancomycin 2,000 mg/520 mL in sodium chloride 0.9% (premix) 2,000 mg 2,000 mg (rounded from 2,082 mg = 15 mg/kg ? 138.8 kg), intravenous, Administer over 120 Minutes, Every 12 hours scheduled, First dose on Sat06/19/23 at 2100, Indications: SepsisIndications:Sepsis 06/20/2023 11:57 AM CDT 2,000 mg 06/20/2023 12:11 AM CDT 2,000 mg documented in this encounter Discontinued Medications Medication Sig Discontinue Reason Start Date End Da te ondansetron ODT (ZOFRAN-ODT) 4 mg disintegrating tablet Take 1 tablet (4 mg total) by mouth every 8 (eight) hours as needed for nausea or vomiting Therapy completed 01/08/2023 06/19/2023 lisinopriL (PRINIVIL,ZESTRIL) 10 mg tablet Alternate therapy 11/22/2021 06/19/2023 documented as of this encounter Historical Medications * This list may reflect changes made after this encounter. pantoprazole DR (PROTONIX) 40 mg EC tablet Take 1 tablet (40 mg total) by mouth nightly 09/17/2023 added in this encounter Active and Recently Administered Medications Times are shown in CDT. Scheduled Medication Order 06/19/2023 06/20/2023 06/21/2023 acetaminophen (TYLENOL) tablet 1,000 mg (COMPLETED) 1,000 mg, oral, Once, On Sat06/19/23 at 1348, For 1 dose 1406 (Given - Provider: Rhona Rees RN) amLODIPine (NORVASC) tablet 5 mg 5 mg, oral, Daily, First dose on Eboni 06/20/23 at 0900 0813 (Given - Provider: Eleno Gomez RN) 0819 (Given - Provider: Silvia Ching RN) cefepime (MAXIPIME) 2,000 mg in sodium chloride 0.9% 100 mL IVPB 2,000 mg, intravenous, at 200 mL/hr, Administer over 30 Minutes, Every 8 hours scheduled, First dose on Sat06/19/23 at 2040, Mini-Bag Plus bag, Indications: Sepsis 2123 (New Bag - Provider: Katie Silva RN) 0542 (New Bag - Provider: Katie Silva RN)1504 (New Bag - Provider: Eleno Gomez RN)2146 (New Bag - Provider: Katie Silva RN) 0539 (New Bag - Provider: Katie Silva RN) enoxaparin (LOVENOX) syringe 40 mg 40 mg, subcutaneous, Every 12 hours scheduled, First dose on Eboni 06/20/23 at 1400, Indications: Deep Vein Thrombosis Prevention 1435 (Given - Provider: Eleno Gomez RN)2146 (Given - Provider: Katie Silva, JOVANNY) 0819 (Given - Provider: Silvia Ching, JOVANNY) fentaNYL (SUBLIMAZE) preservative free injection 50 mcg (COMPLETED) 50 mcg, intravenous, Once, On Sat06/19/23 at 1802, For 1 dose 1808 (Given - Provider: Rhona Rees, JOVANNY) HYDROmorphone (DILAUDID) injection 1 mg (COMPLETED) 1 mg, intravenous, Administer over 2 Minutes, Once, On Sat06/19/23 at 1921, For 1 dose, Indications: Pain 1930 (Given - Provider: Allyn Moya RN) insulin lispro (HumaLOG, ADMELOG) 100 unit/mL pen injection 0-4 Units 0-4 Units, subcutaneous, Nightly, First dose on Sat06/19/23 at 2100, Blood glucose mg/dL: 199 or less: No insulin 200-249: add 1 unit 250-299: add 2 units 300-349: add 3 units and notify physician for adjustment of insulin orders. 350-399: add 4 units and notify physician for adjustment of insulin orders. Over 400: Notify physician for adjustment of insulin orders. Do NOT hold for NPO Status Attach new pen needle required for each administration. Each new pen needle must be primed with 2 units prior to administration., Indications: Diabetes Mellitus 2124 (Not Given - Provider: Katie Silva RN - Reason: Order parameters not met - Comment: fsbs 79) 2121 (Not Given - Provider: Katie Silva RN - Reason: Order parameters not met - Comment: fsbs 96) insulin lispro (HumaLOG, ADMELOG) 100 unit/mL pen injection 0-5 Units 0-5 Units, subcutaneous, 3 times daily with meals, First dose on Sat06/20/23 at 0800, Blood glucose mg/dL: 149 or less: No insulin 150-199: add 1 unit 200-249: add 2 units 250-299: add 3 units 300-349: add 4 units and notify physician for adjustment of insulin orders. 350-399: add 5 units and notify physician for adjustment of insulin orders. Over 400: Notify physician for adjustment of insulin orders. Do NOT hold for NPO Status Attach new pen needle required for each administration. Each new pen needle must be primed with 2 units prior to administration., Indications: Diabetes Mellitus 0814 (Not Given - Provider: Eleno Gomez RN - Reason: Order parameters not met)1201 (Not Given - Provider: Eleno Gomez RN - Reason: Order parameters not met)1745 (Not Given - Provider: Eleno Gomez RN - Reason: Order parameters not met) 0815 (Not Given - Provider: Silvia Ching RN - Reason: Order parameters not met)1212 (Not Given - Provider: Silvia Ching RN - Reason: Order parameters not met) loperamide (IMODIUM) capsule 2 mg 2 mg, oral, 3 times daily, First dose on Sat06/20/23 at 1600, Maximum recommended dose 16 mg/day 1434 (Given - Provider: Eleno Gomez, JOVANNY)2147 (Given - Provider: Katie Silva RN) 0819 (Given - Provider: Silvia Ching RN) metoprolol (LOPRESSOR) injection 2.5 mg (COMPLETED) 2.5 mg, intravenous, Administer over 1 Minutes, Once, On Sat06/19/23 at 2130, For 1 dose 212 (Given - Provider: Katie Silva RN) metroNIDAZOLE (FLAGYL) 500 mg/100 mL in sodium chloride (premix) 500 mg 500 mg, intravenous, at 200 mL/hr, Administer over 30 Minutes, Every 8 hours scheduled, First dose on Sat06/19/23 at 2230, Room temperature only, Indications: Abdominal/Pelvic Infection, Sepsis 2358 (New Bag - Provider: Katie Silva RN) 0634 (New Bag - Provider: Katie Silva RN)1544 (New Bag - Provider: Eleno Gomez RN)2153 (New Bag - Provider: Katie Silva RN) 0540 (New Bag - Provider: Katie Silva RN) pantoprazole DR (PROTONIX) extended release tablet 40 mg 40 mg, oral, Nightly, First dose on Sat06/20/23 at 2100, Do not crush, chew, cut, dissolve, open or otherwise manipulate tablet/capsule., Indications: Treatment of Non-Bleeding Gastric Disorder 2146 (Given - Provider: Katie Silva RN) sodium chloride 0.9% bolus 1,000 mL (COMPLETED) 1,000 mL, intravenous, at 1,000 mL/hr, Administer over 1 Hours, Once, On Sat06/19/23 at 1345, For 1 dose 1346 (New Bag - Provider: Ai Cazares RN)1600 (Stopped - Provider: Rhona Rees RN) sodium chloride 0.9% bolus 1,000 mL (COMPLETED) 1,000 mL, intravenous, Once, On Sat06/19/23 at 1647, For 1 dose 1620 (New Bag - Provider: Rhona Rees RN)1917 (Stopped - Provider: Allyn Moya, JOVANNY) vancomycin 2,000 mg/520 mL in sodium chloride 0.9% (premix) 2,000 mg (CANCELED) 2,000 mg (rounded from 2,082 mg = 15 mg/kg ? 138.8 kg), intravenous, Administer over 120 Minutes, Every 12 hours scheduled, First dose on Sat06/19/23 at 2100, Indications: Sepsis 0011 (New Bag - Provider: Katie Silva RN)1157 (New Bag - Provider: Eleno Gomez RN) 1100 (Lab Draw - Provider: Anais Torres, [facility] - Comment: Vanco trough) Continuous Medication Order 06/19/2023 06/20/2023 06/21/2023 sodium chloride 0.9% infusion 125 mL/hr, intravenous, Continuous, Starting on Sat06/19/23 at 1915 1915 (New Bag - Provider: Allison Shipman RN)2100 (Rate/Dose Verify - Provider: Katie Silva RN) 0542 (Rate/Dose Verify - Provider: Katie Silva RN)1047 (New Bag - Provider: Eleno Gomez RN)2000 (Rate/Dose Verify - Provider: Katie Silva RN)2149 (New Bag - Provider: Katie Silva RN) 0540 (Rate/Dose Verify - Provider: Katie Silva RN)0823 (New Bag - Provider: Silvia Ching, JOVANNY)1700 (Due: Stopped) PRN Medication Order 06/19/2023 06/20/2023 06/21/2023 acetaminophen (TYLENOL) tablet 650 mg 650 mg, oral, Every 6 hours PRN, 1st line for pain, fever, Starting on Sat06/19/23 at 2038 2123 (Given - Provider: Katie Silva RN) 0326 (Given - Provider: Katie Silva RN) dextrose (D10W) 10% bolus 250 mL(Linked Group 1) 250 mL, intravenous, at 1,000 mL/hr, Administer over 15 Minutes, Every 15 min PRN, blood glucose less than 70 mg/dL and UNABLE to swallow/take PO glucose/juice., Starting on Sat06/19/23 at 2043, After treatment for hypoglycemia, recheck BG followed by treatment every 15 minutes until the BG is greater than 100 mg/dL. Then check BG 1 hour post treatment. If BG is less than 100 mg/dL, repeat Q15 minute BG checks and treatment. Call MD for each episode of hypoglycemia., Indications: hypoglycemic disorder dextrose gel in packet 15 g(Linked Group 1) 15 g, oral, Every 15 min PRN, low blood sugar, blood glucose less than 70 mg/dL, Starting on Sat06/19/23 at 2043, If patient is alert and able to eat/drink, give 15 gm glucose or one juice (4 fluid ounces) NOT ORANGE JUICE. After treatment for hypoglycemia, recheck BG followed by treatment every 15 minutes until the BG is greater than 100 mg/dL. Then check BG 1 hour post-treatment. If BG is less than 100 mg/dL, repeat Q15 minute BG checks and treatment. Call MD for each episode of hypoglycemia., Indications: hypoglycemic disorder glucagon injection 1 mg 1 mg, intramuscular, Every 30 min PRN, low blood sugar, blood glucose less than 70 mg/dL AND no IV access AND unable to take PO glucose/juice., Starting on Sat06/19/23 at 2043, After Glucagon is administered, position patient on side if possible to avoid aspiration. Obtain IV access. Follow glucagon treatment with glucose treatment or IV dextrose. After treatment for hypoglycemia, recheck BG followed by treatment every 15 minutes until the BG is greater than 100 mg/dL. Then check BG 1 hour post treatment. If BG is less than 100 mg/dL, repeat Q15 minute BG checks and treatment. Call MD for each episode of hypoglycemia. Reconstitute 1 mg vial with 1 mL SWFI. Use immediately following reconstitution. HYDROmorphone (PF) (DILAUDID) injection 0.2 mg 0.2 mg, intravenous, Administer over 2 Minutes, Every 3 hours PRN, 1st line for pain, Starting on Sat06/19/23 at 193, Indications: Pain 2342 (Given - Provider: Rafael Soria RN) 0542 (Given - Provider: Katie Silva RN)1203 (Given - Provider: Eleno Gomez RN)1907 (Given - Provider: Eleno Gomez RN) ibuprofen (ADVIL,MOTRIN) tablet 400 mg 400 mg, oral, 4 times daily PRN, 2nd line for pain, fever, Starting on Sat06/19/23 at 2154 ioversoL (OPTIRAY 350) syringe 100 mL (COMPLETED) 100 mL, intravenous, Once in imaging, contrast, Starting on Sat06/19/23 at 1758, For 1 dose 1759 (Contrast Given - Provider: Katie Angeles RT) ondansetron (ZOFRAN) injection 4 mg (COMPLETED) 4 mg, intravenous, Administer over 2 Minutes, Once as needed, nausea, vomiting, If patient unable to tolerate PO, Starting on Sat06/19/23 at 1333, For 1 dose, Do not administer if patient had 8mg administered within 6 hours of patient presenting to ED Do not administer if patient was formally diagnosed with prolonged QT syndrome 1808 (Given - Provider: Rhona Rees RN) ondansetron (ZOFRAN) injection 4 mg(Linked Group 2) 4 mg, intravenous, Administer over 2 Minutes, Every 6 hours PRN, nausea, vomiting, if not tolerating PO, Starting on Sat06/19/23 at 1934, Indications: Nausea and Vomiting 2342 (Given - Provider: Rafael Soria RN) 0543 (Given - Provider: Katie Silva, JOVANNY)1046 (Given - Provider: Eleno Gomez, JOAVNNY)1903 (Given - Provider: Eleno Gomez, JOVANNY) ondansetron ODT (ZOFRAN-ODT) disintegrating tablet 4 mg(Linked Group 2) 4 mg, oral, Every 6 hours PRN, nausea, vomiting, Starting on Sat06/19/23 at 1934, Indications: Nausea and Vomiting 2342 (See Alternative - Provider: Rafael Soria RN) 0543 (See Alternative - Provider: Katie Silva RN)1046 (See Alternative - Provider: Eleno Gomez, JOVANNY)1903 (See Alternative - Provider: Eleno Gomez RN) perflutren protein-a (OPTISON) 3 mL in sodium chloride 0.9% 8 mL syringe (COMPLETED) 1-8 mL, intravenous, Once in imaging, contrast, Starting on [place] 06/20/23 at 1128, For 1 dose, Intra-Procedure (CV) 1129 (Contrast Given - Provider: Cleveland Gordon [facility]) Linked Groups Order Group 1: dextrose gel in packet 15 gJump to med 15 g, oral, Every 15 min PRN, low blood sugar, blood glucose less than 70 mg/dL, Starting on Sat06/19/23 at 2043, If patient is alert and able to eat/drink, give 15 gm glucose or one juice (4 fluid ounces) NOT ORANGE JUICE. After treatment for hypoglycemia, recheck BG followed by treatment every 15 minutes until the BG is greater than 100 mg/dL. Then check BG 1 hour post-treatment. If BG is less than 100 mg/dL, repeat Q15 minute BG checks and treatment. Call MD for each episode of hypoglycemia., Indications: hypoglycemic disorder Or dextrose (D10W) 10% bolus 250 mLJump to med 250 mL, intravenous, at 1,000 mL/hr, Administer over 15 Minutes, Every 15 min PRN, blood glucose less than 70 mg/dL and UNABLE to swallow/take PO glucose/juice., Starting on Sat06/19/23 at 2043, After treatment for hypoglycemia, recheck BG followed by treatment every 15 minutes until the BG is greater than 100 mg/dL. Then check BG 1 hour post treatment. If BG is less than 100 mg/dL, repeat Q15 minute BG checks and treatment. Call MD for each episode of hypoglycemia., Indications: hypoglycemic disorder Group 2: ondansetron ODT (ZOFRAN-ODT) disintegrating tablet 4 mgJump to med 4 mg, oral, Every 6 hours PRN, nausea, vomiting, Starting on Sat06/19/23 at 193, Indications: Nausea and Vomiting Or ondansetron (ZOFRAN) injection 4 mgJump to med 4 mg, intravenous, Administer over 2 Minutes, Every 6 hours PRN, nausea, vomiting, if not tolerating PO, Starting on Sat06/19/23 at 193, Indications: Nausea and Vomiting documented in this encounter Orders Medications Ordered That Stiven ht Not Have Been Administered Count Last Ordered Date First Ordered Date dextrose (D10W) 10% bolus 250 mL 06/19/19 dextrose gel in packet 15 g 06/19/2023 glucagon injection 1 mg 06/19/2023 ibuprofen (ADVIL,MOTRIN) tablet 400 mg insulin lispro (HumaLOG, ADM ELOG) 100 unit/mL pen injection 0-4 Units 1 06/19/2023 insulin lispro (HumaLOG, ADM ELOG) 100 unit/mL pen injection 0-5 Units 1 06/19/2023 Lactated Ringer's (LR) infusion 1 ondansetron ODT (ZOFRAN-ODT) disintegrating tablet 4 mg 1 06/19/2023 Lab Orders Without Results Count Last Ordered D ate First Ordered Date POCT GLUCOSE DEVICE 2 06/20/2023 06/19/19 Diet Count Last Ordered Date First Orde red Date ADULT DISCHARGE DIET 1 06/21/2023 Nursing Count Last Ordered Date First Orde red Date DISCHARGE ACTIVITY 1 06/21/2023 DISCHARGE CALL PROVIDER 7 06/21/2023 ACTIVITY 1 06/19/2023 MISCELLANEOUS NURSING CARE ORDER (SPECIFY) 1 06/19/2023 NOTIFY PROVIDER (SPECIFY) 5 06/19/2023 TELEMETRY MONITORING 1 06/19/2023 WEIGH PATIENT 1 06/19/2023 IV Count Last Ordered Date First Orde red Date SALINE LOCK IV 1 06/19/2023 Admission Count Last Ordered Date First Orde red Date ADMIT TO INPATIENT 1 06/20/2023 INITIATE OBSERVATION SERVICES 1 06/19/2023 Discharge Count Last Ordered Date First Orde red Date DISCHARGE PATIENT 1 06/21/2023 CORE MEASURES Count Last Ordered Date First Ord ered Date REASON FOR NO VTE PROPHYLAXIS AT ADMISSION 1 06/19/2023 documented in this encounter Additional Health Concerns Infection Onset Date Last Indicated Resolved Time COVID: Suspected 06/19/2023 06/19/2023 06/19/2023 2:29 PM CDT C. difficile suspected 06/19/2023 06/19/202306/18 11:47 PM CDT documented as of this encounter Care Teams Automatic Outsole Cutter Relationship Specialty Start Date End Date Starla Parham MD PCP - General Family Medicine 11/13/21 03/02/24 documented as of this encounter
--- OUTSIDE RECORDS SUMMARY | 2024-04-04 19:33 | XMS_ITS | Encounter Summary ---
Author Organization [facility] Healthcare Address [address] [place] [id number] Care Team Providers Care Ballistics Tester Name Role Phone Starla Parham MD Primary Care Provider Reason for Visit * Reason Onset Date Comments MELANY/NS for Home sleep study 01/11/2022 Encounter Details Date Type Department Care Team (Late st Contact Info) Description 01/11/2022 Telephone [facility] [address] [place], [place] [id number] Shubham Reeder MD [address] [facility] [address] [address] [place]/NS for Home sleep study Social History Tobacco Use Types Packs/Day Years Used Date Smoking Tobacco: Never Smokeless Tobacco: Never Alcohol Use Standard Drinks/Week Comments Yes 0 (1 standard drink = 0.6 oz pur e alcohol) rarely Sex and Gender Information Value Date Recorded Sex Assigned at Not on file 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 Called to reschedule. Left message on voicemail. documented in this encounter Plan of Treatment Not on file documented as of this encounter Visit Diagnoses Not on filedocumented in this encounter Care Teams Ballistics Tester Relationship Specialty Start Date End Date Starla Parham MD PCP - General Family Medicine 11/13/21 03/02/24 documented as of this encounter
--- OUTSIDE RECORDS SUMMARY | 2024-04-04 19:33 | XMS_ITS | Encounter Summary ---
Author Organization [facility] Healthcare Address [address] [place] [address] Care Team Providers Care Educational Adviser Name Role Phone Starla Parham MD Primary Care Provider [phone] Reason for Visit * Diagnostic Imaging (Routine) - Closed Specialty Diagnoses / Procedures Referred By Contac t Referred To Contact Diagnoses Nausea and vomiting, unspecified vomiting type Gastroesophageal reflux disease, unspecified whether esophagitis present Procedures NM Gastric Emptying Study Rubio Martinez NP [address] [place] [id number] Phone: tel: fax: [address] [phone] Referral ID Status Reason Start Date Expiration Date Visits Re quested Visits Authorized [id number] Closed 12/03/2023 01/01/2025 5 1 Encounter Details Date Type Department Care Team (Latest Contact Info) Description 01/22/2024 11:08 AM CDT - 01/22/2024 11:59 PM CDT Hospital Encounter [facility] [address] [place] [id number] Discharge Disposition: Discharge to home or self [...] often do you attend chur ch or faith services? Never 06/20/2023 Do you belong to any clubs o r organizations such as yarsanism groups, unions, fraternal or athletic groups, or [...] place to sleep or slept in a custodial (including now)? 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 LB: PIO Report ID: [id number] Reading Location: [id number] us Rubio Adore Martinez DOT ETCHER IMG NM PROCEDURES F inal Result documented in this encounter Visit Diagnoses Not on filedocumented in this encounter Care Teams Educational Adviser Relationship Specialty Start Date End Date Starla Parham MD PCP - General Family Medicine 11/13/21 03/02/24 documented as of this encounter
--- OUTSIDE RECORDS SUMMARY | 2024-04-04 19:33 | XMS_ITS | Encounter Summary ---
Author Organization [facility] Healthcare Address [address] [place] [address] Care Team Providers Care Wharfinger Chief Name Role Phone Nikky Cunningham MD Primary Care Provider Reason for Visit * Reason Comments Follow-up 3 month follow up Abdominal Pain Patient states that he has been having right lower quadrant pain Rectal Bleeding Patient states that he has been having blood in his stool along with rectal bleeding after a bowel movement Encounter Details Date Type Department Care Team (Latest Contact Info) Description 03/03/2024 8:30 AM CAR BODY DESIGNER Office Visit [facility] Gastroenterology at [address] [place] [address] Rubio Martinez NP [address] [place] [address] [address] [place] [address] Irritable bowel syndrome with both constipation and diarrhea (Primary Dx); BRBPR (bright red blood per rectum); Nausea without vomiting; RUQ pain; Erosive esophagitis; Superficial gastritis without hemorrhage, unspecified chronicity; Tubular adenoma of colon; Hepatic steatosis Social History Tobacco Use Types Packs/Day Years Used Date Smoking Tobacco: Never Smokeless Tobacco: Never Tobacco Cessation:Counseling Given: Not Answered Alcohol Use Standard Drinks/Week Comments Yes 0 (1 standard drink = 0.6 oz pur e alcohol) rarely [facility] Utilities Answer Date Recorded In the past 12 months has [employer] electric, gas, oil, or water company threatened [...] often do you attend chur ch or anabaptism services? Never 06/20/2023 Do you belong to any clubs o r organizations such as muslim groups, unions, fraternal or athletic groups, or [...] place to sleep or slept in a half-way (including now)? No 06/20/2023 Personal Safety Answer [...] on file Legal Sex Male 7:25 PM CAR BODY DESIGNER Gender Identity Not on file Sexual Orientation Not on file documented as of this encounter Last Filed Vital Signs Vital Sign Reading Time Taken Comments Blood Pressure 135/92 03/03/2024 8:31 AM CAR BODY DESIGNER Pulse 104 03/03/2024 8:31 AM CAR BODY DESIGNER Temperature - - Respiratory Rate - - Oxygen Saturation 97% 03/03/2024 8:31 AM CAR BODY DESIGNER Inhaled Oxygen Concentration - - Weight 150 kg (330 lb 12.8 oz) 03/03/2024 8:31 A M CAR BODY DESIGNER Height 180.3 cm (5' 11 ) 03/03/2024 8:31 AM CAR BODY DESIGNER Body Mass Index 46.14 03/03/2024 8:31 AM CAR BODY DESIGNER documented in this encounter Patient Instructions * Patient Instructions* Rubio Martinez NP - 03/03/2024 8:30 AM CAR BODY DESIGNER The most common cause of diarrhea and IBS symptoms is constipation (maintaining too much poop, gas,bacteria in the GI tract). Therefore, that is where I would like to place our biggest focus. I recommend starting Linzess as it tends to help with better bowel habits and less pain over time. Take Linzess 145 mcg either in the morning or in the evening, but try to take around the same time of day. In order to avoid it causing a significant laxative effect, try not to take within 30-60 minutes of eating or drinking anything more than a little bit of water. If after a few weeks, it is notreally helping and you want to try the higher dose, you can increase to two pills daily, which is the 290 mcg dose and the highest dose. If you do better with that dose, let me know and I will send you a script for that dose. If Linzess does not work out, we can consider trying something different.If it just causes you frequent loose stools (and ultimately makes things worse), let me know and I will give you a good cleanout to do, then have you restart it. Please get Florastor pre/probiotic and take daily for 1-2 months. This should be bought OTC. It sounds like you have internal hemorrhoids that are flared up. To help with these use the hydrocortisone suppositories nightly for a few nights in a row whenever they are flared up. At most can useconsistently for two weeks at a time. Usually only takes 1-3 doses to get things in a good place. Insert at bedtime... Obtain with Good Rx coupon if not covered by insurance. If bleeding continues linn an issue, will consider scheduling you for a sigmoidoscopy to evaluate the lower half of the colon/rectum. Continue Pantoprazole/Protonix 40 mg daily for heartburn. Continue Amitriptyline without change. Stop Bentyl/Dicyclomine. Okay to use gas-x 125 mg up to 4 times daily as needed. To schedule HIDA scan to rule out gallbladder dysfunction, call: [phone] If you go to [employer], you can download a copay card that may cover the cost of your copay... Your next colonoscopy is due in 3 years, 07/26. BODY DESIGNER BODY DESIGNER BODY DESIGNER BODY DESIGNER BODY DESIGNER documented in this encounter Ordered Prescriptions Prescription Sig Dispense Quantity Refills Last Filled Start Date End Date linaCLOtide (LINZESS) 145 mcg capsule Take 1 capsule (145 mcg total) by mouth daily 90 capsule 3 4 hydrocortisone (ANUSOL-HC) 25 mg suppository Insert 1 suppository (25 mg total) into the rectum 2 (two) times a day as needed for hemorrhoids 24 suppository 3 4 documented in this encounter Progress Notes * Rubio Martinez NP - 03/03/2024 8:30 AM CST Images from the original note were not included. PATIENT DEMOGRAPHICS Oscar Rehman is a 38 y.o. White male. PATIENT'S CARE TEAM Patient Care Team: Nikky Cunningham MD as PCP - General (Family Medicine) CHIEF COMPLAINT Chief Complaint Patient presents with Follow-up 3 month follow up Abdominal Pain Patient states that he has been having right lower quadrant pain Rectal Bleeding Patient states that he has been having blood in his stool along with rectal bleeding after a bowel movement HPI/ROS New or existing patient visit: Existing. Referring Provider: Starla Parham MD Oscar is here today for routine GI follow-up. His initial visit with me was 12/03/2023. Weight is up 6 lb since that time. Problematic GI symptoms have been intermittent for years. No recent vomiting. Nausea is much less symptomatic than it was. Only occurring on occasion. Still frequently having lower abdominal cramping and occasional pain in the right upper quadrant. Frequently has loose stools, urgency, and frequency after eating. Only occasionally has obvious constipation or straining. HisPCP did change his metformin from the long-acting version to the short-acting version a few months ago and that has helped some with loose stools. Heartburn and reflux are decently well controlled on pantoprazole/Protonix 40 mg daily. Occasionally has scratching in his throat. For the last few weeks he has been noticing intermittent bleeding with wiping, but no significant rectal pain. No blood mixed in the stool. No hemorrhoids mentioned on previous colonoscopy. Usually has between four and five bowel movements daily. Following last office visit he did not start a probiotic. He has tried theBentyl and continue the amitriptyline. He feels that the amitriptyline helps, but has not seen any positive benefit with the Bentyl. He did do one month of MiraLax three nights weekly and did not notice any improvement in his symptoms after a month so he stopped it. I am highly suspicious that his biggest issue is maintaining a high fecal load, but also keeping SIBO in the differential. Weight isup 6 lb since last office visit 12/03/2023. Gastric emptying study following last office visit was normal. HIDA scan was ordered, but did not get completed (normal HIDA scan in 2020). Celiac serologynormal as well. EGD 01/[address] Daisha Matt noted mild antral gastritis and erosive esophagitis changes inthe distal esophagus. Duodenal biopsy was normal. Antral biopsy showed reactive gastropathy. H pylori testing was negative. No mention of these findings on CT scan 01/21. Colonoscopy with Dr. Daisha Matt 07/15/2023 with the 11 mm tubular adenoma removed from the transverse colon. Terminal ileum biopsy noted benign lymphoid aggregates, but no active inflammation. Random colon biopsy was normal. Advised to repeat in three years. (Also had a polyp removed on a previous colonoscopy and there is a family history of CRC in one of his grandfathers). Right upper quadrant ultrasound 05/25 noted hepatic steatosis changes, but no gallbladder concerns. CT of the abdomen and pelvis with IV contrast 06/22 showed multiple mildly prominent lymph nodes within the mesentery which may represent mesenteric adenitis stable on imaging since 2018 and does not require any additional monitoring. He takes NSAIDs some, but not as frequently as he used to. Occasional alcohol use, but only once every few months. No tobacco use. No drug use. Current Outpatient Medications on File Prior to Visit Medication Sig Dispense Refill albuterol HFA (PROVENTIL HFA,VENTOLIN HFA,PROAIR HFA) 90 mcg/actuation inhaler TAKE 2 PUFFS BY MOUTH EVERY 6 HOURS NEEDED FOR WHEEZE OR SHORTNESS OF BREATH amitriptyline (ELAVIL) 25 mg tablet Take 1 tablet (25 mg total) by mouth nightly 90 tablet 3 amLODIPine (NORVASC) 5 mg tablet Take 1 tablet (5 mg total) by mouth daily blood sugar diagnostic (ONETOUCH VERIO TEST STRIPS [facility] OneTouch Verio test strips cholecalciferol (VITAMIN D-3) 25 mcg (1,000 unit) tablet Take 1 tablet (1,000 Units total) by mouthdaily 90 tablet 3 dicyclomine (BENTYL) 20 mg tablet Take 1 tablet (20 mg total) by mouth 4 (four) times a day as needed (abdominal cramping/pain or problematic diarrhea driven by cramping) 120 tablet 3 metFORMIN (GLUCOPHAGE) 1,000 mg tablet Take 1 tablet (1,000 mg total) by mouth 2 (two) times a day with meals ondansetron ODT (ZOFRAN-ODT) 4 mg disintegrating tablet Take 1 tablet (4 mg total) by mouth every 6(six) hours [address] (PROTONIX) 40 mg EC tablet Take 1 tablet (40 mg total) by mouth daily 90 tablet 3 polyethylene glycol (MIRALAX) 17 gram/dose bulk powder Take one capful of MiraLax three nights weekly for constipation management. 595 g 1 simethicone (MYLICON) 125 mg chewable tablet Take 1 tablet (125 mg total) by mouth 4 (four) times aday as needed (cramping/bloating/gas/nausea) 120 tablet 3 atorvastatin (LIPITOR) 40 mg tablet (Patient not taking: Reported on 03/03/2024) No current facility-administered medications on file prior to visit. PHYSICAL EXAM BP 135/92 (BP Location: Left arm, Patient Position: Sitting) Pulse 104 Ht 180.3 cm (5' 11 ) Wt (!) 150 kg (330 lb 12.8 oz) SpO2 97% BMI 46.14 kg/m?? No LMP for male patient. Positive [...] Psychiatric: Mood/behavioral normal. TESTS/LABS/PROCEDURES (not all inclusive) 01/22/24- NM Gastric emptying study: FINDINGS: At 60 minutes, the residual activity is 75% (normal: 30-90%). At 120 minutes, the residual activity is 40% (normal: less than 60%). At 180 minutes, the residual activity is 26% (normal: less than 30%). At 240 minutes, the residual activity is 2% (normal: less than 10%). IMPRESSION: Normal gastric emptying. 12/03/23- Vitamin D low at 23. Iron normal at 60. Celiac serology negative. TSH, folic acid, B23, magnesium within goal range. 09/17/23- CBC, CMP, and Lipase wo concerning [...] noted within the mesentery. This may represent mesentericadenitis. Follow-up is suggested. 05/20/23- RUQ US: FINDINGS: PANCREAS: Not well seen due to overlapping bowel gas. LIVER: Large portions are obscured by overlapping shadows. Remainder of the liver has increased echogenicity with diminished true transmission. Maximum dimensions of 19.4 cm. Main portal vein demonstrates hepatopetal flow. GALLBLADDER: No cholelithiasis. No gallbladder wall thickening or pericholecystic fluid. No positive sonographic [place] sign reported. BILIARY: Common bile duct measuring [...] imaging prior to above date. GI ASSESSMENT/PLAN (K58.2) Irritable bowel syndrome with both constipation and diarrhea (primary encounter diagnosis) Chronic symptomatology. More prone to diarrhea than obvious constipation, but I think his biggest issue is maintaining a high fecal load and not going enough regularly enough. Therefore, advised as follows: -The most common cause of diarrhea and IBS symptoms is constipation (maintaining too much poop, gas, bacteria in the GI tract). Therefore, that is where I would like to place our biggest focus. I recommend starting Linzess as it tends to help with better bowel habits and less pain over time. -Take Linzess 145 mcg either in the morning or in the evening, but try to take around the same timeof day. In order to avoid it causing a significant laxative effect, try not to take within 30-60 minutes of eating or drinking anything more than a little bit of water. If after a few weeks, it is not really helping and you want to try the higher dose, you can increase to two pills daily, which is t he 290 mcg dose and the highest dose. If you do better with that dose, let me know and I will send you a script for that dose. If Linzess does not work out, we can consider trying something different. If it just causes you frequent loose stools (and ultimately makes things worse), let me know and Iwill give you a good cleanout to do, then have you restart it. -Please get Florastor pre/probiotic and take daily for 1-2 months. This should be bought OTC. -Continue Amitriptyline without change. -Stop Bentyl/Dicyclomine. -Okay to use gas-x 125 mg up to 4 times daily as needed. *If not much better at follow up, will consider treating for SIBO. (K62.5) BRBPR (bright red blood per rectum) New issue that started in recent weeks. Mild and intermittent and mainly with wiping after having abowel movements suspicious for internal hemorrhoidal exacerbation. Advised as follows: -It sounds like you have internal hemorrhoids that are flared up. To help with these use the hydrocortisone suppositories nightly for a few nights in a row whenever they are flared up. At most can use consistently for two weeks at a time. Usually only takes 1-3 doses to get things in a good place. Insert at bedtime... Obtain with Good Rx coupon if not covered by insurance. If bleeding continues to be an issue, will consider scheduling you for a sigmoidoscopy to evaluate the lower half of the colon/rectum. (R11.0) Nausea without vomiting Nausea is much less symptomatic than it was. Only occurring on occasion. Planning HIDA scan to ruleout gallbladder dysfunction. Will address if becomes more symptomatic. (K22.10) Erosive esophagitis (K29.30) Superficial gastritis without hemorrhage, unspecified chronicity Chronic symptomatology that is decently well controlled on pantoprazole/Protonix 40 mg daily, whichhe would like to continue without change. Reminded to moderate diet, avoid NSAIDs, avoid alcohol, avoid overeating. Over time if he does better, will try to reduce and from daily PPI therapy. Risks/benefits/side effects of long-term PPI use were discussed with patient. (R10.11) RUQ pain Chronic and intermittent. Will repeat HIDA scan to be on safe side and make sure no concerns for gallbladder dysfunction. Patient was provided phone number to call and schedule previously order test.However, I believe it is likely functional in nature and related to his IBS so that is where we will continue to place our focus. (D12.6) Tubular adenoma of colon 11 mm tubular adenoma removed at time of colonoscopy 07/23. Also had a polyp removed on a previous colonoscopy, but unsure what type. Advised to repeat in three years so is currently due for repeat colonoscopy 07/26. (K76.0) Hepatic steatosis Incidental finding on previous imaging in the setting of consistently normal liver enzymes. Appearsto be at low risk for Fibrosis at this time. Recommend yearly monitoring of liver enzymes, avoidance of weight gain, attempts at weight loss, and healthy use of alcohol. Fibrosis-4 (FIB-4) Calculator: 0.61 at 03/03/2024 12:16 PM Calculated from: SGOT/AST: 28 Units/L at 09/17/2023 6:37 PM SGPT/ALT: 35 Units/L at 09/17/2023 6:37 PM Platelets: 284 K/cumm at 09/17/2023 6:37 PM Age: 38 years Orders Placed This Encounter hydrocortisone (ANUSOL-HC) 25 mg suppository Sig: Insert 1 suppository (25 mg total) into the rectum 2 (two) times a day as needed for hemorrhoids Dispense: 24 suppository Refill: 3 linaCLOtide (LINZESS) 145 mcg capsule Sig: Take 1 capsule (145 mcg total) by mouth daily Dispense: 90 capsule Refill: 3 Return in about 4 months (around 07/02/2024) for IBS/GERD/Rectal bleeding. Medication(s) and/or immunization(s) uses and side effects briefly discussed. Patient verbalizes understanding of all instructions provided today and agrees with plan. Total time spent on the date of the [id number]-qn-sbrz encounter, including both pjtz-iq-uqzo time (including staff/provider time spent providing education) and zft-qsue-vt-face time (pre-charting, reviewing chart, post-charting) was 45 minutes. This note is dictated and transcribed by [employer]. Chorus Dancer variances may occur. Despite proofreading, typographical errors may occur. My collaborating physicians are Dr. Allan Peñaloza & Dr. Hanane Bhakta-Gastroenterology. Rubio Martinez NP BODY DESIGNER documented in this encounter Plan of Treatment Not on file documented as of this encounter Visit Diagnoses Diagnosis Irritable bowel syndrome with both constipation and diarrhea- Primary BRBPR (bright red blood per rectum) Hemorrhage of rectum and anus Nausea without vomiting RUQ pain Abdominal pain, right upper quadrant Erosive esophagitis Other esophagitis Superficial gastritis without hemorrhage, unspecified chronicity Tubular adenoma of colon Benign neoplasm of colon Hepatic steatosis Other chronic nonalcoholic liver disease documented in this encounter Care Teams Wharfinger Chief Relationship Specialty Start Date End Date Nikky Cunningham MD [address] [place] [address] [address] [place] [address] PCP - General Family Medicine 03/03/24 documented as of this encounter
--- OUTSIDE RECORDS SUMMARY | 2024-04-04 19:33 | XMS_ITS | Encounter Summary ---
Author Organization [facility] Healthcare Address [address] [place] [address] Care Team Providers Care Shop Girl Name Role Phone Starla Parham MD Primary Care Provider [phone] Reason for Referral * Diagnostic Imaging (Routine) - Pending Review Specialty Diagnoses / Procedures Referred By Contac t Referred To Contact Diagnoses Abdominal pain Procedures US RUQ Daisha Matt MD [address] [address] Phone: tel: fax: [address] [phone] Referral ID Status Reason Start Date Expiration Date V isits Requested Visits Authorized [id number] Pending Review 05/16/2023 06/14/2024 1 1 ER OPERATOR Reason for Visit * Diagnostic Imaging (Routine) - Pending Review Specialty Diagnoses / Procedures Referred By Contac t Referred To Contact Diagnoses Abdominal pain Procedures US RUQ Daisha Matt MD [address] [address] Phone: tel: fax: [address] [phone] Referral ID Status Reason Start Date Expiration Date V isits Requested Visits Authorized [id number] Pending Review 05/16/2023 06/14/2024 1 1 Encounter Details Date Type Department Care Team (Latest Contact Info) Description 05/20/2023 8:04 AM GRADER OPERATOR - 05/20/2023 11:59 PM GRADER OPERATOR Hospital Encounter [facility] Ultrasound [facility] [place] [address] Abdominal pain Discharge Disposition: Discharge to home or self care Social History Tobacco Use Types Packs/Day Years Used Date Smoking Tobacco: Never Smokeless Tobacco: Never Alcohol Use Standard Drinks/Week Comments Yes 0 (1 standard drink = 0.6 oz pur e alcohol) rarely Personal Safety Answer Date Recorded Have you ever been in or are you currently in a harmful physical or emotional relationship or is someone making you feel afraid or unsafe? Denies 01/08/2023 Sex and Gender Information Value Date Recorded Sex Assigned at Not on file Legal Sex Male 7:25 PM GRADER OPERATOR Gender Identity Not on file Sexual [...] by mouth daily 30 tablet 01/08/2023 4 lisinopriL (PRINIVIL,ZESTRIL) 10 mg tablet 11/22/2021 4 ondansetron ODT (ZOFRAN-ODT) 4 mg disintegrating tablet Take 1 tablet (4 mg total) by mouth every 8 (eight) hours as needed for nausea or vomiting 20 tablet 01/08/2023 4 documented as of this encounter Discharge Disposition Disposition Code Departure Means Destination Discharge to home or self care documented in this encounter Plan of Treatment Not on file documented as of this encounter Procedures Procedure Name Priority Date/Time Associated Diagnosis Comments US RUQ Schedule Routine, Read Routine (OP Routine) 05/20/2023 8:25 AM GRADER OPERATOR Abdominal pain documented in this encounter Results * US RUQ (05/20/2023 8:25 AM GRADER OPERATOR) Anatomical Region Laterality Modality Abdomen N/A Ultrasound 05/20/2023 8:33 AM GRADER OPERATOR Narrative 05/20/2023 8:37 AM GRADER OPERATOR EXAM DESCRIPTION: ?? US RUQ REASON FOR STUDY: ?? abdominal pain, duration of symptoms is few months. TECHNIQUE: Ultrasound of the right upper quadrant of the abdomen was performed with grayscale and color doppler. COMPARISON: ?? Right upper quadrant ultrasound dated 04/21/2020 and 09/25/2019. Nuclear medicine HIDA scan dated 09/25/2019. ??CT abdomen and pelvis dated 01/08/2023, 04/21/2020 and 09/24/2019. FINDINGS: PANCREAS: ?? Not well seen due to overlapping bowel gas. LIVER: ?? Large portions are obscured by overlapping shadows. ??Remainder of the liver has increased echogenicity with diminished true transmission. ??Maximum dimensions of 19.4 cm. ??Main portal vein demonstrates hepatopetal flow. GALLBLADDER: ?? No cholelithiasis. ??No gallbladder wall thickening or pericholecystic fluid. No positive sonographic Uneeda sign reported. ?? BILIARY: ?? Common bile duct measuring up to 0.4 cm. RIGHT KIDNEY: ?? Measures 14.1 ??X 5.6 x 5.1 cm no obstructive uropathy. IMPRESSION: ?? 1. ?? No gallstones or secondary sonographic evidence for acute cholecystitis. 2. ?? Increased echogenicity of the liver can be seen with steatosis. THIS IS AN ELECTRONICALLY VERIFIED FINAL REPORT 05/20/2023 8:37 AM - Electronically signed by ??Jasmeet Solis D.O. AP: HELEN D: ??05/20/2023 8:37 AM T: ??05/20/2023 8:37 AM Report ID: [id number] Reading Location: ??[id number] Procedure Note Jasmeet Solis DO - 05/20/2023 EXAM DESCRIPTION: US RUQ REASON FOR STUDY: abdominal pain, duration of symptoms is few months. TECHNIQUE: Ultrasound of the right upper quadrant of the abdomen wasperformed with grayscale and color doppler. COMPARISON: Right upper quadrant ultrasound dated 04/21/2020 and09/25/2019. Nuclear medicine HIDA scan dated 09/25/2019. CT abdomen and pelvis dated 01/08/2023, 04/21/2020 and 09/24/2019. FINDINGS: PANCREAS: Not well seen due to overlapping bowel gas. LIVER: Large portions are obscured by overlapping shadows. Remainder ofthe liver has increased echogenicity with diminished true transmission.Maximum dimensions of 19.4 cm. Main portal vein demonstrates hepatopetal flow. GALLBLADDER: No cholelithiasis. No gallbladder wall thickening or pericholecystic fluid. No positive sonographic Uneeda sign reported. BILIARY: Common bile duct measuring up to 0.4 cm. RIGHT KIDNEY: Measures 14.1 X 5.6 x 5.1 cm no obstructive uropathy. IMPRESSION: 1. No gallstones or secondary sonographic evidence for acutecholecystitis. 2. Increased echogenicity of the liver can be seen with steatosis. THIS IS AN ELECTRONICALLY VERIFIED FINAL REPORT 05/20/2023 8:37 AM - Electronically signed by Jasmeet Solis D.O. AP: AP Report ID: [id number] Reading Location: [id number] us Daisha Matt MD IMG US PROCEDURES Final R esult documented in this encounter Visit Diagnoses Diagnosis Abdominal pain Abdominal pain, unspecified site documented in this encounter Care Teams Shop Girl Relationship Specialty Start Date End Date Starla Parham MD PCP - General Family Medicine 11/13/21 03/02/24 documented as of this encounter
--- OUTSIDE RECORDS SUMMARY | 2024-04-04 19:33 | XMS_ITS | Encounter Summary ---
Author Organization [facility] Address [address] [place] [address] Care Team Providers Care Houseperson Name Role Phone Manish Maldonado MD Primary Care Provider Reason for Visit * Reason Onset Date Comments COVID-19 Screening 11/03/2019 Prior to PFT Encounter Details Date Type Department Care Team (Late st Contact Info) Description 11/03/2019 Telephone [facility] Pulmonology 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 Patient did not answer, LVM to call our office back. COVID order entered and faxed on this day. documented in this encounter Plan of Treatment Scheduled Orders Name Type Priority Associated Diagnoses Orde r Schedule COVID-19 Coronavirus RNA Nasopharyngeal Microbiology Routine Encounter for pulmonary function testing Expected: 11/09/2019 (Approximate), Expires: 11/02/2020 documented as of this encounter Visit Diagnoses Diagnosis Encounter for pulmonary function testing- Primary Other specified examination documented in this encounter Care Teams Houseperson Relationship Specialty Start Date End Date Manish Maldonado MD PCP - General 09/28/19 11/16/19 documented as of this encounter
--- OUTSIDE RECORDS SUMMARY | 2024-04-04 19:33 | XMS_ITS | Encounter Summary ---
Author Organization [facility] Healthcare Address [address] [place] [address] Care Team Providers Care Quality Inspector Name Role Phone Manish Maldonado MD Primary Care Provider Encounter Details Date Type Department Care Team (Late st Contact Info) Description 11/17/2019 1:25 PM CDT - 11/17/2019 1:47 PM CDT Hospital Encounter [facility]IM Anurag Olivares MD [address] [facility] [address] [address] Discharge Disposition: Discharge to home or self care Social History Tobacco Use Types Packs/Day Years Used Date Smoking Tobacco: Never Smokeless Tobacco: Never Alcohol Use Standard Drinks/Week Comments Yes 0 (1 standard drink = 0.6 oz pur e alcohol) rarely Sex and Gender Information Value Date Recorded Sex Assigned at Not on file 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 Gender Identity Not on file Sexual Orientation Not on file documented as of this encounter Medications at Time of Discharge albuterol HFA (PROVENTIL HFA,VENTOLIN HFA,PROAIR HFA) 90 mcg/actuation inhaler TAKE 2 PUFFS BY MOUTH EVERY 6 HOURS NEEDED FOR WHEEZE OR SHORTNESS OF BREATH 06/30/2019 blood sugar diagnostic (ONETOUCH VERIO TEST STRIPS [facility]) OneTouch Verio test strips BD Ultra-Fine Josephine [...] Procedure Name Priority Date/Time Associated Diagnosis Comments SLEEP LAB/STUDY - RESULT 11/20/2019 12:00 AM CDT documented in this encounter Results * SLEEP LAB/STUDY - RESULT (11/20/2019 12:00 AM CDT) Narrative 11/20/2019 12:00 AM CDT Ordered by an unspecified provider. us Historical Provider Final Res ult documented in this encounter Visit Diagnoses Not on filedocumented in this encounter Care Teams Quality Inspector Relationship Specialty Start Date End Date Manish Maldonado MD PCP - General 11/17/19 11/12/21 documented as of this encounter
--- OUTSIDE RECORDS SUMMARY | 2024-04-04 19:33 | XMS_ITS | Encounter Summary ---
Author Organization [facility] Healthcare Address [address] [place] [address] Care Team Providers Care Residential Caregiver Name Role Phone Starla Parham MD Primary Care Provider [phone] Encounter Details Date Type Department Care Team (Late st Contact Info) Description 12/11/2023 Telephone [facility] Gastroenterology at [address] [place] [address] Rubio Martinez NP [address] [facility] [address] [place] [address] Social History Tobacco Use Types Packs/Day Years Used Date Smoking Tobacco: Never Smokeless Tobacco: Never Alcohol Use Standard Drinks/Week Comments Yes 0 (1 standard drink = 0.6 oz pur e alcohol) rarely [facility] Utilities Answer Date Recorded In the past 12 months has [employer], gas, oil, or water company threatened [...] any clubs o r organizations such as religious groups, unions, fraternal or athletic groups, or [...] on file 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 Patient has also been made aware of recommendations. * Telephone Encounter - Rubio Martinez NP - 12/11/2023 12:44 PM CDT Please call patient with lab results. Vitamin D low. I will send a D3 supplement for him to take at 1,000 units daily. Please [...] on filedocumented in this encounter Care Teams Residential Caregiver Relationship Specialty Start Date End Date Starla Parham MD PCP - General Family Medicine 11/13/21 03/02/24 documented as of this encounter
--- OUTSIDE RECORDS SUMMARY | 2024-04-04 19:33 | XMS_ITS | Encounter Summary ---
Author Organization [facility] Healthcare Address [address] [place] [id number] Care Team Providers Care Meter Maintenance Person Name Role Phone Starla Parham MD Primary Care Provider [phone] Reason for Visit * Reason Comments Abdominal Pain Encounter Details Date Type Department Care Team (Late st Contact Info) Description 01/08/2023 4:33 PM CDT - 01/08/2023 7:00 PM CDT Emergency [facility] Emergency Department [address] [place] [address] Eder Epstein MD [address] [place] [address] Abdominal pain (Primary Dx) Discharge Disposition: Discharge [...] on file 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 Gender Identity Not on file Sexual Orientation Not on file documented as of this encounter Last Filed Vital Signs Vital Sign Reading Time Taken Comments Blood Pressure 138/94 01/08/2023 6:30 PM CDT Pulse 81 01/08/2023 6:30 PM CDT Temperature 36.5 ??C (97.7 ??F) 01/08/2023 4:27 PM CD T Respiratory Rate 16 01/08/2023 6:30 PM CDT Oxygen Saturation 98% 01/08/2023 6:30 PM CDT Inhaled Oxygen Concentration - - Weight 136.1 kg (300 lb) 01/08/2023 4:27 PM CDT Height 180.3 cm (5' 11 ) 01/08/2023 4:27 PM CDT Body Mass Index 41.84 01/08/2023 4:27 PM CDT documented in this encounter Discharge Instructions * Discharge Instructions* Zahraa Padron MD - 01/08/2023 6:45 PM CDT Follow-up with primary care in 1 week Follow-up with GI specialist at [facility] as scheduled Encouraged taking small meals with increasing frequency Limit fat intake spicy intake types of food * Attachments The following attachments cannot be sent through Care Everywhere. * Irritable Bowel Syndrome (AfterCare(R) Instructions(ER/ED)) (Stateless) documented in this encounter Medications at Time [...] 01/08/2023 4 documented as of this encounter Ordered Prescriptions Prescription Sig Dispense Quantity Refills Last Filled Start Date End Date dicyclomine (BENTYL) 20 mg tabletIndications:Ir ritable Bowel Syndrome Take 1 tablet (20 mg total) by mouth daily 30 tablet 01/08/2023 4 ondansetron ODT (ZOFRAN-ODT) 4 mg disintegrating tablet Take 1 tablet (4 mg total) by mouth every 8 (eight) hours as needed for nausea or vomiting 20 tablet 01/08/2023 4 documented in this encounter Discharge Disposition Disposition Code Departure Means Destination Comment s Discharge to home or self care documented in this encounter ED Notes * Zahraa Padron MD - 01/08/2023 4:52 PM CDT HPI Chief Complaint Patient presents with Abdominal Pain HPI 37-year-old male with past medical history of type 2 diabetes, IBS, asthma, hyperlipidemia, hypertension presents with chief complaint of abdominal and vomiting. Patient reports that he is had nausea for the past few weeks, and for the past 3 days he is had vomiting. Reports vomiting occurs postprandial. Reports that it can happen between 1-2 hours after eating. Patient denies any blood in the vomit. Patient reports he developed a right upper quadrant pain dull in nature since last night. Constant pain about 4 with radiation to his flank, and right back intermittently that can increase the pain to about a 6. Patient denies any fever but reports that this morning he woke up drenched in sweat.Patient denies any previous abdominal surgeries other than a hiatal hernia as a child. Patient currently sexually active with 1 partner no concerns for any STIs. Reports his IBS goes through constipation and diarrhea phases but currently it is stable and he is had normal bowel movement, with last bowel movement this morning at 11:00 a.m.. Denies any blood/melena. Patient reports that he is had no changes to his urination but while trying to give a urine sample currently felt a slight dysuria. Patient reports he has been evaluated by GI recently for his continuous nausea and they were planning on doing an EGD. Patient reports that his diabetes is well controlled with last A1c of 5.6. Patient reports he has been diagnosed with diabetes for the past 2 years. Patient History: Patient Active Problem List Diagnosis Date Noted Hypersomnia 11/29/2021 Restless legs 11/29/2021 Psychophysiological insomnia 11/29/2021 Nonsmoker 11/29/2021 History of COVID-19 11/29/2021 Pulmonary nodule/lesion, solitary 10/05/2019 STACIE (obstructive sleep apnea) 10/05/2019 Essential hypertension 02/05/2019 Type 2 diabetes mellitus without complication (CMS/HCC) (HCC) 07/23/2018 Asthma 07/26/2017 Irritable bowel syndrome 07/26/2017 Past Medical History: Diagnosis Date Asthma Hypertension History reviewed. No pertinent surgical history. Family History Problem Relation Age of Onset Cancer Father Cancer Brother Cancer Maternal Grandmother Cancer Maternal Grandfather Social History Tobacco Use Smoking status: Never Smokeless tobacco: Never Vaping Use Vaping Use: passive smoke exposure - never smoker Substance and Sexual Activity Alcohol use: Yes Comment: rarely Drug use: Never Sexual activity: Defer Social History Social History Narrative Not on file Review of Systems Review of Systems Constitutional: Positive for chills. Negative for activity change, appetite change and fever. HENT: Negative for congestion, rhinorrhea and sore throat. Eyes: Negative for visual disturbance. Respiratory: Negative for cough, shortness of breath and wheezing. Cardiovascular: Negative for chest pain. Gastrointestinal: Positive for abdominal pain, nausea and vomiting. Negative for blood in stool, constipation and diarrhea. Genitourinary: Positive for dysuria and flank pain. Negative for frequency, hematuria and urgency. Musculoskeletal: Negative for myalgias. Skin: Negative for rash. Neurological: Negative for dizziness, syncope, speech difficulty, weakness, light-headedness, numbness and headaches. Psychiatric/Behavioral: Negative for agitation, behavioral problems and confusion. Physical Exam ED Triage Vitals [01/08/23 1627] Temp Pulse Resp BP SpO2 36.5 ??C (97.7 ??F) 90 16 140/89 99 % Temp src Heart Rate Source Patient Position BP Location FiO2 (%) Temporal -- -- -- -- Height Height Method Weight Weight Method 1.803 m (5' 11 ) Stated 136.1 kg (300 lb) Stated Physical Exam Vitals and nursing note reviewed. Constitutional: Appearance: He is well-developed. He is obese. HENT: Head: Normocephalic and atraumatic. Mouth/Throat: Pharynx: No pharyngeal swelling or oropharyngeal exudate. Eyes: Extraocular Movements: Extraocular movements intact. Pupils: Pupils are equal, round, and reactive to light. Cardiovascular: Rate and Rhythm: Normal rate and regular rhythm. Heart sounds: Normal heart sounds. Pulmonary: Effort: Pulmonary effort is normal. Breath sounds: Normal breath sounds. No wheezing. Abdominal: General: Abdomen is flat. Bowel sounds are normal. There is no distension. Palpations: Abdomen is soft. Tenderness: There is abdominal tenderness in the right upper quadrant. There is right CVA tenderness. There is no left CVA tenderness, guarding or rebound. Positive signs include Chakraborty's sign. Negative signs include Rovsing's sign, McBurney's sign, psoas sign and obturator sign. Skin: General: Skin is warm and dry. Capillary Refill: Capillary refill takes less than 2 seconds. Neurological: Mental Status: He is alert and oriented to person, place, and time. Psychiatric: Mood and Affect: Mood normal. Behavior: Behavior normal. MDM 7-year-old male with past medical history of type 2 diabetes, IBS, asthma, hyperlipidemia, hypertension presents with chief complaint of abdominal and vomiting. Differential diagnosis: IBS, Cholecystitis, gastroparesis, pancreatitis, gastroenteritis, nephrolithiasis, UTI, GERD Plan: CMP CBC lipase UA CT abdomen pelvis with contrast IV fluids, pain management and nausea management Medical Decision Making Amount and/or Complexity of Data Reviewed Labs: ordered. Decision-making details documented in ED Course. Radiology: ordered. Decision-making details documented in ED Course. Risk Prescription drug management. Attending Summary of Care ED Course as of 01/08/23 1846 Time: 01/08 1918 Value: Lipase, Serum: 38 Comment: Unlikely pancreatitis By: Zahraa Padron MD Time: 01/09 1720 Value: WBC: 9.0 Comment: No leukocytosis By: Zahraa Padron MD Time: 01/09 1720 Value: Comprehensive metabolic panel: Sodium 140 Potassium, pl 3.7 Chloride 99 CO2 28 Anion gap 13 BUN 9 Creatinine 0.84 Glucose 79 Calcium 10.0 Bilirubin, total <0.2 Protein, pl 7.6 Albumin 4.9 Alk phos 55 ALT 38 AST 33 Comment: Normal kidney and liver function noted with normal electrolytes By: Zahraa Padron MD Time: 01/08 947 Value: Urinalysis reflex to microscopic and culture Urine: Color, ur Straw Clarity, ur Clear Specific gravity, ur 1.008 pH, urine 5.5 Protein, ur ql Negative Glucose, ur ql Negative Ketones, ur Negative Bilirubin, ur Negative Blood, ur Negative Urobilinogen, ur <2.0 Nitrite, ur Negative Leukocyte esterase, ur Negative UA reflex comment Reflex conditions for microscopic UA and culture not met. Comment: Unremarkable UA By: Zahraa Padron MD Time: 01/08 8253 Value: CT Abdomen Pelvis W Contrast Comment: (Reviewed) By: Zahraa Padron MD Time: 01/09 1840 Value: CT Abdomen Pelvis W Contrast Comment: IMPRESSION: No acute finding. By: Zahraa Padron MD Time: 01/08 1843 Comment: Patient agreeable to being discharged with a follow-up with a GI specialist that he is already seeing at [facility]. Return precautions were given By: Zahraa Padron MD Abdominal pain Zahraa Padron MD Resident 01/08/231845 Cosigned by Eder Epstein MD at 01/08/2023 6:50 PM CDT Associated attestation - Eder Epstein MD - 01/08/2023 6:50 PM CDT I have seen and examined the patient on 01/08/23. I agree with the findings and plan of care as documented in the resident's note. I personally saw and examined the patient. I have reviewed and agree with resident's findings including all diagnostic interpretations and treatment plans as documented. I was present for cummings portions of separately performed procedures and inclusive time noted in any critical care situation. MEDICAL DECISION MAKING Number and Complexity of Problems Differential Diagnosis: [IBS, gastroenteritis, gallbladder] [facility] Data Discussed with: [Patient] Treatment and Disposition ED Course: [Stable] Shared decision making: Patient agreeable to admission Code status: [Full] * Lucille Barber RN - 01/08/2023 4:26 PM CDT Pt to ED for c/o abdominal pain, nausea and vomiting x 3 days. documented in this encounter Plan of Treatment Not on file documented as of this encounter Procedures Procedure Name Priority Date/Time Associated Diagnosis Comments CT ABDOMEN PELVIS W CONTRAST ED 01/08/2023 6:09 PM CDT URINALYSIS AND REFLEX TO MICROSCOPIC AND CULTURE STAT 01/08/2023 5:32 PM CDT EGFR STAT 01/08/2023 4:49 PM CDT DIFFERENTIAL AUTO STAT 01/08/2023 4:4 9 PM CDT CBC WITH AUTO DIFFERENTIAL STAT 01/08/2023 4:49 PM CDT LIPASE STAT 01/08/2023 4:49 PM CDT COMPREHENSIVE METABOLIC PANEL STAT 01/08/2023 4:49 PM CDT documented in this encounter Results * CT Abdomen Pelvis W Contrast (01/08/2023 6:09 PM CDT) Anatomical Region Laterality Modality Body N/A Computed Tomogra phy 01/08/2023 6:17 PM CDT Narrative 01/08/2023 6:36 PM CDT EXAM DESCRIPTION: ?? CT ABDOMEN PELVIS W CONTRAST REASON FOR STUDY: ?? Abdominal Pain, RUQ with nausea and vomiting ?? Abdominal pain, mainly RUQ, nausea, and vomiting for 3 days. ? TECHNIQUE: CT scan of the abdomen and pelvis performed with intravenous and ?? without ??oral contrast using helical scanning technique with dynamic intravenous contrast injection. Reconstructed coronal and sagittal MPR images reviewed. All images stored on PACS. Automated exposure control was used as a dose optimization technique for this examination. CONTRAST TYPE/DOSE: ?? 100mL of IOVERSOL 350 MG IODINE/ML INTRAVENOUS SOLUTION ?? injected via ?? intravenous COMPARISON: ?? CT abdomen and pelvis dated 04/21/2020. REFERENCE: Per ACR white paper recommendations, unless otherwise specified no follow-up imaging is recommended for incidental renal and adrenal lesions per consensus recommendations based on imaging criteria. Further lab evaluation could be pursued based on clinical findings. FINDINGS: LOWER CHEST: ?? No significant pulmonary abnormalities. No effusion. LIVER: ?? Normal size. ??No identified cystic or solid masses. GALLBLADDER: ?? Unremarkable. BILE DUCTS: ?? No intrahepatic or extrahepatic [...] ? Urinary bladder is unremarkable. GI: ?? There are few small scattered diverticula without adjacent inflammation to suggest diverticulitis. ??There is mild to moderately prominent stool within the large bowel. ??The appendix is normal in appearance. ??Small bowel appears within normal limits. PERITONEUM: ?? No ascites or free air. ??There is a small umbilical hernia containing only fat. RETROPERITONEUM: ?? No mass or adenopathy. REPRODUCTIVE: ?? No significant abnormality. VASCULATURE: ?? No abdominal aortic aneurysm. MUSCULOSKELETAL: ?? No significant abnormality. OTHER: ?? No other abnormality. IMPRESSION: ??No acute finding. THIS IS AN ELECTRONICALLY VERIFIED FINAL REPORT 01/08/2023 6:36 PM - Electronically signed by ??Yobany Rayo M.D., D.O. Yobany Rayo M.D., D.O. MW: TACHO D: ??01/08/2023 6:36 PM T: ??01/08/2023 6:36 PM Report ID: [id number] Reading Location: ??[id number] Procedure Note Yobany Rayo MD - 01/08/2023 EXAM DESCRIPTION: CT ABDOMEN PELVIS W CONTRAST REASON FOR STUDY: Abdominal Pain, RUQ with nausea and vomiting Abdominal pain, mainly RUQ, nausea, and vomiting for 3 days. TECHNIQUE: CT scan of the abdomen and pelvis performed with intravenousand without oral contrast using helical scanning technique with dynamic intravenous contrast injection. Reconstructed coronal and sagittal MPRimages reviewed. All images stored on PACS. Automated exposure control was usedas a dose optimization technique for this examination. CONTRAST TYPE/DOSE: 100mL of IOVERSOL 350 MG IODINE/ML INTRAVENOUSSOLUTION injected via intravenous COMPARISON: CT abdomen and pelvis dated 04/21/2020. REFERENCE: Per ACR white paper recommendations, unless otherwise specifiedno follow-up imaging is recommended for incidental renal and adrenal lesionsper consensus recommendations based on imaging criteria. Further labevaluation could be pursued based on clinical findings. FINDINGS: LOWER CHEST: No significant pulmonary abnormalities. No effusion. LIVER: Normal size. No identified cystic or solid masses. GALLBLADDER: Unremarkable. BILE DUCTS: No intrahepatic or extrahepatic ductal dilatation. SPLEEN: Normal size. No focal lesions. PANCREAS: No identified cystic or solid masses. No significant calcifications. No adjacent inflammation or peripancreatic fluidcollections. Pancreatic duct not dilated. ADRENALS: Normal. KIDNEYS/URINARY TRACT: No identified significant cystic or solid masses.No visualized stones. No hydronephrosis or hydroureter. Symmetricenhancement. Urinary bladder is unremarkable. GI: There are few small scattered diverticula without adjacentinflammation to suggest diverticulitis. There is mild to moderately prominent stoolwithin the large bowel. The appendix is normal in appearance. Small bowelappears within normal limits. PERITONEUM: No ascites or free air. There is a small umbilical hernia containing only fat. RETROPERITONEUM: No mass or adenopathy. REPRODUCTIVE: No significant abnormality. VASCULATURE: No abdominal aortic aneurysm. MUSCULOSKELETAL: No significant abnormality. OTHER: No other abnormality. IMPRESSION: No acute finding. THIS IS AN ELECTRONICALLY VERIFIED FINAL REPORT 01/08/2023 6:36 PM - Electronically signed by Yobany Rayo M.D., D.O. Yobany Rayo M.D., D.O. MW: TACHO Report ID: [id number] Reading Location: [id number] us Zahraa Padron MD IM CT PROCEDURES Final R esult * Urinalysis reflex to microscopic and culture Urine (01/08/2023 5:32 PM CDT) Color, ur Straw Yellow Clarity, ur Clear Clear [facility] ([place]) Specific gravity, ur 1.008 1.003 - [...] acid stone formation. Source: [facility] Current Interpretive Data was last revised on 2017 Protein, ur ql Negative Negative [facility] ([place]) Glucose, ur ql Negative Negative [facility] ([place]) Ketones, ur Negative Negative [facility] ([place]) Bilirubin, ur Negative Negative [facility] ([place]) Blood, ur Negative Negative [facility] ([place]) Urobilinogen, ur <2.0 <2.0 mg/dL [facility] ([place]) Nitrite, ur Negative Negative [facility] ([place]) Leukocyte esterase, ur Negative Negative [facility] ([place]) UA reflex comment Reflex conditions for microscopic UA and culture not met. [facility] ([place]) Urine 01/08/2023 5:32 PM CDT 01/08/2023 5:44 PM CDT us Eder Epstein MD LAB MICROBIOLOGY - GENERAL O RDERABLES Final Result [facility] ([place] 1 [facility] [place] [address] * eGFR (01/08/2023 4:49 PM CDT) eGFR 117 mL/min/1. 73 m2 Comment: [...] interpretive data was last reviewed 2021. Blood 01/08/2023 4:49 PM CDT 01/08/2023 4:51 PM CDT Eder Epstein MD LAB BLOOD ORDERABLES Final R esult [facility] ([place]) 1 [facility] Department of Laboratories [place], [place] [id number] * Differential, auto (01/08/2023 4:49 PM CDT) Neutrophil abs 4.9 1.7 - 6.5 K/cumm Imm gran abs 0.1 0.0 - 0.1 K/cumm [facility] ([place]) Lymphocyte abs 3.2 0.8 - 3.3 K/cumm [facility] ([place]) Monocyte abs 0.7 0.2 - 0.8 K/cumm [facility] ([place]) Eosinophil abs 0.1 0.0 - 0.5 K/cumm [facility] ([place]) Basophil abs 0.1 0.0 - 0.1 K/cumm [facility] ([place]) Neutrophil pct 54.8 % [facility] ([place]) Comment: Interpretive [...] was last revised on 2017. Lymphocyte pct 35.4 % [facility] ([place]) Comment: Interpretive Data Percent cell count reference ranges are not reported, since discordance with absolute values may lead to misinterpretation of CBC data. Current Interpretive Data was last revised on 2017. Monocyte pct 7.6 % [facility] ([place]) Comment: Interpretive Data [...] Data was last revised on 2017. Blood 01/08/2023 4:49 PM CDT 01/08/2023 4:51 PM CDT Eder Epstein MD LAB BLOOD ORDERABLES Final R esult [facility] ([place]) [address] [facility] Department [place] [address] * Comprehensive metabolic panel (01/08/2023 4:49 PM CDT) Sodium 140 135 - 145 mmol/L Potassium, pl 3.7 3.3 - 4.9 mmol/L [facility] ([place]) Chloride 99 97 - 110 mmol/L [facility] ([place]) CO2 28 22 - 32 mmol/L [facility] ([place]) Anion gap 13 2 - 15 mmol/L [facility] ([place]) BUN 9 6 - 25 mg/dL [facility] ([place]) Creatinine 0.84 0.80 - 1.30 mg/dL [facility] ([place]) Glucose 79 70 - 199 mg/dL [facility] ([place]) [...] classification and Diagnosis of Diabetes Diabetes Care 202; 46: S19-S40. Current interpretive data was last revised 2022. Calcium 10.0 8.5 - 10.3 mg/dL [facility] ([place]) Bilirubin, total <0.2 0.1 - 1.2 mg/dL [facility] ([place]) Protein, pl 7.6 6.5 - 8.5 g/dL [facility] ([place]) Albumin 4.9 3.5 - 5.0 g/dL [facility] ([place]) Alk phos 55 40 - 130 Units/L [facility] ([place]) ALT 38 7 - 55 Units/L [facility] ([place]) AST 33 10 - 50 Units/L [facility] ([place]) Blood 01/08/2023 4:49 PM CDT 01/08/2023 4:51 PM CDT Eder Epstein MD LAB BLOOD ORDERABLES Final R esult [facility] ([place]) 1 [facility] Department of Laboratories [place], [place] [id number] * Lipase (01/08/2023 4:49 PM CDT) Lipase 38 10 - 99 Units/L Blood 01/08/2023 4:49 PM CDT 01/08/2023 4:51 PM CDT Eder Epstein MD LAB BLOOD ORDERABLES Final R esult [facility] ([place]) 1 [facility] [place] [address] * CBC with auto differential (01/08/2023 4:49 PM CDT) WBC 9.0 3.8 - 9.9 K/cumm Hgb 14.1 13.0 - 17.5 g/dL [facility] ([place]) Hct 42.9 38.9 - 50.3 % [facility] ([place]) Plt 282 150 - 400 K/cumm [facility] ([place]) MPV 9.4 9.1 - 12.3 fL [facility] ([place]) RBC 4.88 4.30 - 5.80 M/cumm [facility] ([place]) Comment: Interpretive Data A reference range for this assay has not been established for patients with an unknown legal sex. Please refer to the laboratory test catalog for established sex-specific reference intervals. Current interpretive data was last revised on 2023. MCV 87.9 81.3 - 96.4 fL [facility] ([place]) MCH 28.9 27.1 - 33.3 pg [facility] ([place]) MCHC 32.9 32.3 - 35.7 g/dL [facility] ([place]) RDW CV 12.4 11.1 - 14.9 % [facility] ([place]) RDW SD 39.8 35.7 - 48.1 fL [facility] ([place]) NRBC abs 0.00 0.00 - 0.01 K/cumm [facility] ([place]) Blood 01/08/2023 4:49 PM CDT 01/08/2023 4:51 PM CDT Eder Epstein MD LAB BLOOD ORDERABLES Final R esult [facility] ([place]) [address] [facility] [place] [address] documented in this encounter Visit Diagnoses Diagnosis Abdominal pain- Primary Abdominal pain, unspecified site documented in this encounter Administered Medications Inactive Administered Medications - up to 3 most recent administrations Medication Order MAR Action Action Date Dose Rate Site ioversoL (OPTIRAY 350) injection 100 mL 100 mL, intravenous, Once in imaging, contrast, Starting on Sat01/08/23 at 1752, For 1 dose Contrast Given 01/08/2023 6:09 PM CDT 100 mL ketorolac (TORADOL) 30 mg/mL (1 mL) injection 30 mg 30 mg, intravenous, Once, On Sat01/08/23 at 1743, For 1 dose, For Adult IV push, administer over 15 seconds Given 01/08/2023 5:44 PM CDT 30 mg ondansetron (ZOFRAN) injection 4 mg 4 mg, intravenous, Administer over 2 Minutes, Once, On Sat01/08/23 at 1653, For 1 dose Given 01/08/2023 5:09 PM CDT 4 mg documented in this encounter Active and Recently Administered Medications Times are shown in CDT. Scheduled Medication Order 01/06/2023 01/07/2023 01/08/2023 ketorolac (TORADOL) 30 mg/mL (1 mL) injection 30 mg (COMPLETED) 30 mg, intravenous, Once, On Sat01/08/23 at 1743, For 1 dose, For Adult IV push, administer over 15 seconds 1744 (Given - Provid er: Tyshawn Mccarthy, JOVANNY) ondansetron (ZOFRAN) injection 4 mg (COMPLETED) 4 mg, intravenous, Administer over 2 Minutes, Once, On Sat01/08/23 at 1653, For 1 dose 1709 (Given - Provid er: Allyn Quintana, RN) PRN Medication Order 01/06/2023 01/07/2023 01/08/2023 ioversoL (OPTIRAY 350) injection 100 mL (COMPLETED) 100 mL, intravenous, Once in imaging, contrast, Starting on Sat01/08/23 at 1752, For 1 dose 1809 (Contrast Given - Provider: Roma Brush, RT) documented in this encounter Care Teams Meter Maintenance Person Relationship Specialty Start Date End Date Starla Parham MD PCP - General Family Medicine 11/13/21 03/02/24 documented as of this encounter
--- OUTSIDE RECORDS SUMMARY | 2024-04-04 19:33 | XMS_ITS | Encounter Summary ---
Author Organization [facility] Healthcare Address [address] [place] [address] Care Team Providers Care Regional Service Manager Name Role Phone Manish Maldonado MD Primary Care Provider Encounter Details Date Type Department Care Team (Late st Contact Info) Description 04/22/2020 12:43 PM CITY SOLICITOR Hospital Encounter [facility]IM Anais Sherman, THERAPY DIRECTOR [address] [facility] [address] [address] Social History Tobacco Use Types Packs/Day Years Used Date Smoking Tobacco: Never Smokeless Tobacco: Never Alcohol Use Standard Drinks/Week Comments Yes 0 (1 standard drink = 0.6 oz pur e alcohol) rarely Sex and Gender Information Value Date Recorded Sex Assigned at Not on file Legal Sex Male 7:25 PM CITY SOLICITOR Gender Identity Not on file Sexual Orientation Not on file documented as of this encounter Medications at Time of Discharge albuterol HFA (PROVENTIL HFA,VENTOLIN HFA,PROAIR HFA) 90 mcg/actuation inhaler TAKE 2 PUFFS BY MOUTH EVERY 6 HOURS NEEDED FOR WHEEZE OR SHORTNESS OF BREATH 06/30/2019 blood sugar diagnostic (ONETOUCH VERIO TEST STRIPS [facility]) OneTouch Verio test strips BD Ultra-Fine Josephine [...] 09/28/2019 2 documented as of this encounter Plan of Treatment Not on file documented as of this encounter Procedures Procedure Name Priority Date/Time Associated Diagnosis Comments RUQ 04/22/2020 12:47 PM CITY SOLICITOR documented in this encounter Results * US RUQ (04/22/2020 12:47 PM CITY SOLICITOR) Anatomical Region Laterality Modality Abdomen N/A Ultrasound 04/22/2020 5:49 PM CITY SOLICITOR Narrative 04/22/2020 5:51 PM CITY SOLICITOR Patient Name: AMA BAILEY ?Ordering Dr: Anais Sherman ANP ?? D.O.B: 1985 ? Exam Date: 04/22/20 ?? 1247 ?? Age: 34 ?Sex: Male ? MR#: [id number] ?? Loc: ? RADIOLOGY REPORT ?? Order #[id number] ?? Ultrasound ? US Abd/Right Upper Quadrant ? Signed ?? EXAM DESCRIPTION: ?? US Abd/Right Upper Quadrant ? REASON FOR STUDY: ?? Right upper quadrant x3 days. ? TECHNIQUE: ??Ultrasound of the right upper quadrant of the abdomen was ?? performed with grayscale and color doppler. ? COMPARISON: ?? 09/25/2019 right upper quadrant ultrasound. ? FINDINGS: ? PANCREAS: ??Visualized portions of the pancreas are within normal limits. ?? Portions of the pancreatic body and tail are obscured due to bowel gas. ? LIVER: ??Liver is increased in echogenicity with normal echotexture consistent ?? with steatosis. ??Liver measures upper limits of normal at 17.7 cm. ??No focal ?? lesion identified. The main portal vein is patent with antegrade flow. ? GALLBLADDER: ??The gallbladder appears unremarkable. No cholelithiasis. ??No ?? gallbladder wall thickening or pericholecystic fluid. ??Negative sonographic ?? Chakraborty' s sign reported. ? BILIARY: ??There is no intrahepatic or extrahepatic biliary ductal dilatation. ?? Common bile duct measures ??0.3 cm in diameter. ? RIGHT KIDNEY: ??Normal size. Normal echogenicity. No solid mass or cyst. ??No ?? hydronephrosis. Measures ??12.0 cm in length. ? OTHER: ??No other significant findings. ? IMPRESSION: ??No acute sonographic abnormality identified. ??Mild hepatic ?? steatosis. ? THIS IS AN ELECTRONICALLY VERIFIED FINAL REPORT ?? 04/22/2020 5:51 PM - Electronically signed by Domenic Goncalves ?? Domenic Goncalves ? D: ??04/22/2020 5:51 PM ?? T: ? Report ID: [id number] ?? Reading Location: ??[id number] ? REPORT ELECTRONICALLY SIGNED IN OTHER VENDOR SYSTEM ?? Resulting Agency Comment O Procedure Note Domenic Goncalves MD - 04/22/2020 Patient Name: AMA BAILEY Dr: Anais Sherman D.O.B: 1985 Exam Date: 04/22/20 1247 Age: 34 Sex: Male MR#: [id number] Loc: RADIOLOGY REPORT Order #[id number] Ultrasound US Abd/Right Upper Quadrant Signed EXAM DESCRIPTION: US Abd/Right Upper Quadrant REASON FOR STUDY: Right upper quadrant x3 days. TECHNIQUE: Ultrasound of the right upper quadrant of the abdomen was performed with grayscale and color doppler. COMPARISON: 09/25/2019 right upper quadrant ultrasound. FINDINGS: PANCREAS: Visualized portions of the pancreas are within normal limits. Portions of the pancreatic body and tail are obscured due to bowel gas. LIVER: Liver is increased in echogenicity with normal echotextureconsistent with steatosis. Liver measures upper limits of normal at 17.7 cm. Nofocal lesion identified. The main portal vein is patent with antegrade flow. GALLBLADDER: The gallbladder appears unremarkable. No cholelithiasis.No gallbladder wall thickening or pericholecystic fluid. Negativesonographic Chakraborty' s sign reported. BILIARY: There is no intrahepatic or extrahepatic biliary ductaldilatation. Common bile duct measures 0.3 cm in diameter. RIGHT KIDNEY: Normal size. Normal echogenicity. No solid mass or cyst.No hydronephrosis. Measures 12.0 cm in length. OTHER: No other significant findings. IMPRESSION: No acute sonographic abnormality identified. Mild hepatic steatosis. THIS IS AN ELECTRONICALLY VERIFIED FINAL REPORT 04/22/2020 5:51 PM - Electronically signed by Domenic Goncalves T: Report ID: [id number] Reading Location: [place] [address] REPORT ELECTRONICALLY SIGNED IN OTHER VENDOR SYSTEM us Anais Sherman THERAPY DIRECTOR IMG US PROCEDURES Final Result documented in this encounter Visit Diagnoses Not on filedocumented in this encounter Care Teams Regional Service Manager Relationship Specialty Start Date End Date Manish Maldonado MD PCP - General 11/17/19 11/12/21 documented as of this encounter
--- OUTSIDE RECORDS SUMMARY | 2024-04-04 19:34 | XMS_ITS | Encounter Summary ---
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 Gender Identity Not on file Sexual Orientation Not on file documented as of this encounter Last Filed Vital Signs Vital Sign Reading Time Taken Comments Blood Pressure 119/85 09/28/2019 11:42 AM CDT Pulse 76 09/28/2019 11:42 AM CDT Temperature 37.1 ??C (98.8 ??F) 09/28/2019 1 1:42 AM CDT Respiratory Rate - - Oxygen Saturation 95% 09/28/2019 11: 42 AM CDT Inhaled Oxygen Concentration - - Weight 152.1 kg (335 lb 6.4 oz) 020 11:42 AM CDT Height 180.3 cm (5' 11 ) 09/28/2019 11: 42 AM CDT Body Mass Index 46.78 09/28/2019 11:42 AM CDT documented in this encounter Medications at Time of Discharge albuterol HFA (PROVENTIL HFA,VENTOLIN HFA,PROAIR HFA) 90 mcg/actuation inhaler TAKE 2 PUFFS BY MOUTH EVERY 6 HOURS NEEDED FOR WHEEZE OR SHORTNESS OF BREATH 06/30/2019 BD Ultra-Fine Josephine Pen Needle 32 gauge x 5/32 needle USE TO INJECT INSULIN UNDER THE SKIN TWICE DAILY 09/28/[address] (CYMBALTA) 30 mg capsule TAKE 1 CAPSULE BY MOUTH EVERYDAY AT BEDTIME 07/01/2019 0 glimepiride (AMARYL) 2 mg tablet Take 2 mg by mouth 2 (two) times a day 08/14/2019 0 HYDROcodone-acetamin ophen (NORCO) 5-325 mg per tablet TAKE 1 TABLET BY MOUTH EVERY 4 HOURS NEEDED FOR PAIN (PAIN SCALE 4 6) 09/28/2019 2 ondansetron ODT (ZOFRAN-ODT) 4 mg disintegrating [...] Date/Time Associated Diagnosis Comments SCAN - LABS 09/30/2019 12:00 AM CDT CBC WITH AUTO DIFFERENTIAL Routine 09/28/2019 4:34 AM CDT COMPREHENSIVE METABOLIC PANEL Routine 09/28/2019 4:34 AM CDT CBC WITH AUTO DIFFERENTIAL Routine 09/27/2019 11:24 AM CDT MAGNESIUM Routine 09/27/2019 11:24 AM CDT BASIC METABOLIC PANEL Routine 09/27/2019 11:24 AM CDT CBC WITH AUTO DIFFERENTIAL Routine 09/26/2019 9:21 AM CDT LIPASE Routine 09/26/2019 9:21 AM CDT COMPREHENSIVE METABOLIC PANEL Routine 09/26/2019 9:21 AM CDT BLOOD CULTURE Routine 09/25/2019 3:07 PM CDT CBC WITH AUTO DIFFERENTIAL Routine 09/25/2019 9:15 AM CDT APTT Routine 09/25/2019 9:15 AM CDT PROTIME-INR Routine 09/25/2019 9:15 AM CDT ANTIBODY SCREEN Routine 09/25/2019 9:15 AM CDT TYPE AND SCREEN Routine 09/25/2019 9:15 AM CDT HEPATITIS PANEL, ACUTE Routine 0 7:23 AM CDT LACTATE Routine 09/25/2019 4:25 AM CDT TSH+FREE T4 Routine 09/25/2019 4:25 AM CDT CBC WITH AUTO DIFFERENTIAL Routine 09/25/2019 4:25 AM CDT TROPONIN I Routine 09/25/2019 4:25 AM CDT BLOOD CULTURE Routine 09/25/2019 4:25 AM CDT CHOLESTEROL, LDL, DIRECT Routine 09/25/2019 4:25 AM CDT HEMOGLOBIN A1C Routine 09/25/2019 4:25 AM CDT CREATINE KINASE (CK), TOTAL Routine 09/25/2019 4:25 AM CDT LIPID PANEL Routine 09/25/2019 4:25 AM CDT COMPREHENSIVE METABOLIC PANEL Routine 09/25/2019 4:25 AM CDT ECG 12-LEAD 09/25/2019 12:39 AM CDT US RUQ 09/25/2019 12:00 AM CDT NM HEPATOBILIARY IMAGING 09/25/2019 12:00 AM CDT XR CHEST 1 VIEW 09/24/2019 10:18 PM CDT BLOOD GAS W/LYTES & LACTATE Routine 09/24/2019 10:17 PM CDT URINALYSIS AND REFLEX TO MICROSCOPIC AND CULTURE Routine 09/24/2019 10:08 PM CDT DRUGS OF ABUSE SCREEN, URINE WITHOUT CONFIRMATION Routine 09/24/2019 10:[address] HEAD WO CONTRAST 09/24/2019 9 :59 PM CDT PROCALCITONIN Routine 09/24/2019 9:35 PM CDT BETA-HYDROXYBUTYRATE Routine 09/24/2019 9:35 PM CDT CBC WITH AUTO DIFFERENTIAL Routine 09/24/2019 9:35 PM CDT TROPONIN I Routine 09/24/2019 9:35 PM CDT CRP (ACUTE PHASE) Routine 09/24/2019 9:3 5 PM CDT PHOSPHORUS Routine 09/24/2019 9:35 PM CDT MAGNESIUM Routine 09/24/2019 9:35 PM CDT LIPASE Routine 09/24/2019 9:35 PM CDT CREATINE KINASE (CK), TOTAL Routine 09/24/2019 9:35 PM CDT COMPREHENSIVE METABOLIC PANEL Routine 09/24/2019 9:35 PM CDT ECG 12-LEAD 09/24/2019 9:[address] ABDOMEN PELVIS W CONTRAST 09/24/2019 8:56 PM CDT documented in this encounter Results * SCAN - LABS (09/30/2019 12:00 AM CDT) Narrative 09/30/2019 12:00 AM CDT Ordered by an unspecified provider. us Historical Provider Final Res ult * (ABNORMAL) Comprehensive metabolic panel (09/28/2019 4:34 AM CDT) Sodium 137 135 - 145 mmol/L [facility] Potassium 3.3 3.3 - 5.1 mmol/L [facility] Chloride 100 96 - 108 mmol/L [facility] Carbon Dioxide 25 22 - 32 mmol/L [facility] Anion Gap 12 7 - 16 [facility] Glucose 233(H) 70 - 100 mg/dL [facility] BUN 6(L) 8 - 25 mg/dL [facility] Creatinine 0.8 0.5 - 1.3 mg/dL [facility] Comment: NOTE: Estimated GFR (Cockroft-Gault) will NOT be calculated unless patient Height and Weight were entered. Also, Kidney Disease Stage (GFR) and Estimated GFR (Cockroft-Gault) will NOT be calculated if Creatinine result is <0.2. Kidney Disease Stage >90 mL/MIN [facility] Comment: NOTE; ??The GFR is an estimated [...] failure or on dialysis Est GFR (Cockcroft-G) 201 ml/MIN [facility] Comment: Estimated GFR(Cockroft-Gault)is used to calculate patient medication dosage Calcium 9.2 8.6 - 10.3 mg/dL [facility] Total Protein 6.4 6.4 - 8.3 g/dL [facility] Albumin 3.9 3.5 - 5.0 g/dL [facility] Globulin 2.5 2.3 - 3.5 gm/dL [facility] Albumin/Globulin Ratio 1.6 1.1 - 1.8 [facility] Total Bilirubin 0.3 0.0 - 1.2 mg/dL [facility] AST 37 0 - 40 U/L [facility] ALT 58(H) 0 - 41 U/L [facility] Alkaline Phosphatase 71 40 - 129 U/L [facility] 09/28/2019 4:34 AM CDT 09/28/2019 4:53 AM CDT Narrative Resulting Agency Comment LENORA us Des Salinas MD LAB BLOOD ORDERABLES Marylu jeffery Result [facility] [address] [phone] * (ABNORMAL) CBC with auto differential (09/28/2019 4:34 AM CDT) WBC 6.8 3.8 - 9.9 X10 3/ul [facility] RBC 4.07(L) 4.30 - 5.80 x10 6/ul [facility] Hemoglobin 11.8(L) 13.0 - 17.5 g/dL [facility] Hct 34.9(L) 38.9 - 50.3 % [facility] MCV 85.7 81.3 - 96.4 fl [facility] MCH 29.0 27.1 - 33.3 pg [facility] MCHC 33.8 32.3 - 35.7 g/dl [facility] RDW 12.1 11.1 - 14.9 % [facility] Plt Count 252 150 - 400 x10 3/ul [facility] MPV 9.9 9.1 - 12.3 fl [facility] Neut % 48.9 % [facility] Immature Gran % 2.0 % [facility] Lymph % 38.6 % [facility] AST - Audio[employer]aps [place] % 6.7 % [facility] Eos % 3.2 % [facility] AUTO BASO % 0.6 % [facility] NEUTROPHIL ABS # 3.3 1.7 - 6.5 x10 3/ul [facility] Immature Gran # 0.1 0.0 - 0.1 x10 3/ul [facility] Absolute Lymphs (auto) 2.6 0.8 - 3.3 x10 3/ul [facility] Absolute Monos (auto) 0.5 0.2 - 0.8 x10 3/ul [facility] Absolute Eos (auto) 0.2 0.0 - 0.5 x10 3/ul [facility] BASOPHIL ABS # 0.0 0.0 - 0.1 x10 3/ul [facility] Nucleat RBC Rel Count 0.0 #/100WBC [facility] NRBC abs 0.00 0.00 - 0.01 x10 3/ul [facility] Absolute Neutrophils 3,300 200 - 8,000 /ul [facility] 09/28/2019 4:34 AM CDT 09/28/2019 4:53 AM CDT Narrative Resulting Agency Comment LENORA Des Salinas MD LAB BLOOD ORDERABLES Marylu l Result Performing Organization Address City/[facility] Co de Phone Number [address] [phone] * (ABNORMAL) Magnesium (09/27/2019 11:24 AM CDT) Magnesium 1.5(L) 1.6 - 2.6 mg/dL [facility] Comment: Magnesium sulfate therapy: ??3.0-9.1 mg/dL 09/27/2019 11:2 4 AM CDT 09/27/2019 11:32 AM CDT Narrative Resulting Agency Comment LENORA Des Salinas MD LAB BLOOD ORDERABLES Marylu l Result Performing Organization Address [facility] Co de Phone Number [address] [phone] * (ABNORMAL) Basic metabolic panel (09/27/2019 11:24 AM CDT) Sodium 138 135 - 145 mmol/L [facility] Potassium 3.4 3.3 - 5.1 mmol/L [facility] Chloride 103 96 - 108 mmol/L [facility] Carbon Dioxide 24 22 - 32 mmol/L [facility] Anion Gap 11 7 - 16 [facility] Glucose 306(H) 70 - 100 mg/dL [facility] BUN 8 8 - 25 mg/dL [facility] Creatinine 0.8 0.5 - 1.3 mg/dL [facility] Comment: NOTE: Estimated GFR (Cockroft-Gault) will NOT be calculated unless patient Height and Weight were entered. Also, Kidney Disease Stage (GFR) and Estimated GFR (Cockroft-Gault) will NOT be calculated if Creatinine result is <0.2. Kidney Disease Stage >90 mL/MIN [facility] Comment: NOTE; ??The GFR is an estimated [...] failure or on dialysis Est GFR (Cockcroft-G) 201 ml/MIN [facility] Comment: Estimated GFR(Cockroft-Gault)is used to calculate patient medication dosage Calcium 8.8 8.6 - 10.3 mg/dL [facility] 09/27/2019 11:2 4 AM CDT 09/27/2019 11:32 AM CDT Narrative Resulting Agency Comment LENORA Des Salinas MD LAB BLOOD ORDERABLES Marylu jeffery Result Performing Organization Address City/State/[facility] Co de Phone Number [facility] [address] [phone] * (ABNORMAL) CBC with auto differential (09/27/2019 11:24 AM CDT) WBC 7.0 3.8 - 9.9 X10 3/ul [facility] RBC 3.84(L) 4.30 - 5.80 x10 6/ul [facility] Hemoglobin 11.4(L) 13.0 - 17.5 g/dL [facility] Hct 33.8(L) 38.9 - 50.3 % [facility] MCV 88.0 81.3 - 96.4 fl [facility] MCH 29.7 27.1 - 33.3 pg [facility] MCHC 33.7 32.3 - 35.7 g/dl [facility] RDW 12.2 11.1 - 14.9 % [facility] Plt Count 248 150 - 400 x10 3/ul [facility] MPV 10.0 9.1 - 12.3 fl [facility] Neut % 58.1 % [facility] Immature Gran % 1.8 % [facility] Lymph % 30.0 % [facility] E AST - MED[employer]CH [place] % 7.1 % [facility] E AST - [facility] Eos % 2.6 % [facility] E [employer]ar - [facility] AUTO BASO % 0.4 % [facility] NEUTROPHIL ABS # 4.1 1.7 - 6.5 x10 3/ul [facility] Immature Gran # 0.1 0.0 - 0.1 x10 3/ul [facility] Absolute Lymphs (auto) 2.1 0.8 - 3.3 x10 3/ul [facility] Absolute Monos (auto) 0.5 0.2 - 0.8 x10 3/ul [facility] Absolute Eos (auto) 0.2 0.0 - 0.5 x10 3/ul [facility] BASOPHIL ABS # 0.0 0.0 - 0.1 x10 3/ul [facility] Nucleat RBC Rel Count 0.0 #/100WBC [facility] NRBC abs 0.00 0.00 - 0.01 x10 3/ul [facility] Absolute Neutrophils 4,100 200 - 8,000 /ul [facility] 09/27/2019 11:2 4 AM CDT 09/27/2019 11:32 AM CDT Narrative Resulting Agency Comment LENORA us Des Salinas MD LAB BLOOD ORDERABLES Marylu jeffery Result [facility] [address] [phone] * Lipase (09/26/2019 9:21 AM CDT) Lipase 48 13 - 60 U/L [facility] 09/26/2019 9:21 AM CDT 09/26/2019 9:42 AM CDT Narrative Resulting Agency Comment LENORA us Des Salinas MD LAB BLOOD ORDERABLES Marylu jeffery Result [facility] [address] [phone] * (ABNORMAL) Comprehensive metabolic panel (09/26/2019 9:21 AM CDT) Pathologist [facility] Sodium 137 135 - 145 mmol/L [facility] Potassium 3.8 3.3 - 5.1 mmol/L [facility] Chloride 101 96 - 108 mmol/L [facility] Carbon Dioxide 25 22 - 32 mmol/L [facility] Anion Gap 11 7 - 16 [facility] Glucose 363(H) 70 - 100 mg/dL [facility] BUN 8 8 - 25 mg/dL [facility] Creatinine 1.0 0.5 - 1.3 mg/dL [facility] Comment: NOTE: Estimated GFR (Cockroft-Gault) will NOT be calculated unless patient Height and Weight were entered. Also, Kidney Disease Stage (GFR) and Estimated GFR (Cockroft-Gault) will NOT be calculated if Creatinine result is <0.2. Kidney Disease Stage >90 mL/MIN [facility] Comment: NOTE; ??The GFR is an estimated [...] failure or on dialysis Est GFR (Cockcroft-G) 161 ml/MIN [facility] Comment: Estimated GFR(Cockroft-Gault)is used to calculate patient medication dosage Calcium 9.3 8.6 - 10.3 mg/dL [facility] Total Protein 6.5 6.4 - 8.3 g/dL [facility] Albumin 4.0 3.5 - 5.0 g/dL [facility] Globulin 2.5 2.3 - 3.5 gm/dL [facility] Albumin/Globulin Ratio 1.6 1.1 - 1.8 [facility] Total Bilirubin 0.4 0.0 - 1.2 mg/dL [facility] AST 33 0 - 40 U/L [facility] ALT 62(H) 0 - 41 U/L [facility] Alkaline Phosphatase 78 40 - 129 U/L [facility] 09/26/2019 9:21 AM CDT 09/26/2019 9:42 AM CDT Narrative Resulting Agency Comment LENORA us Des Salinas MD LAB BLOOD ORDERABLES Marylu jeffery Result Performing Organization Address City/State/[facility] Co de Phone Number [facility] [address] [phone] * (ABNORMAL) CBC with auto differential (09/26/2019 9:21 AM CDT) WBC 6.7 3.8 - 9.9 X10 3/ul [facility] RBC 3.83(L) 4.30 - 5.80 x10 6/ul [facility] Hemoglobin 11.4(L) 13.0 - 17.5 g/dL [facility] Hct 34.3(L) 38.9 - 50.3 % [facility] MCV 89.6 81.3 - 96.4 fl [facility] MCH 29.8 27.1 - 33.3 pg [facility] MCHC 33.2 32.3 - 35.7 g/dl [facility] RDW 12.7 11.1 - 14.9 % [facility] Plt Count 239 150 - 400 x10 3/ul [facility] MPV 10.4 9.1 - 12.3 fl [facility] Neut % 54.6 % [facility] Immature Gran % 1.8 % [facility] Lymph % 31.5 % [facility] [employer]ar - [employer] [place] % 9.1 % [facility] Get 2 It Sales [facility] Eos % 2.4 % [facility] Acceleforce [facility] AUTO BASO % 0.6 % [facility] NEUTROPHIL ABS # 3.7 1.7 - 6.5 x10 3/ul [facility] Immature Gran # 0.1 0.0 - 0.1 x10 3/ul [facility] Absolute Lymphs (auto) 2.1 0.8 - 3.3 x10 3/ul [facility] Absolute Monos (auto) 0.6 0.2 - 0.8 x10 3/ul [facility] Absolute Eos (auto) 0.2 0.0 - 0.5 x10 3/ul [facility] BASOPHIL ABS # 0.0 0.0 - 0.1 x10 3/ul [facility] Nucleat RBC Rel Count 0.0 #/100WBC [facility] NRBC abs 0.00 0.00 - 0.01 x10 3/ul [facility] Absolute Neutrophils 3,700 200 - 8,000 /ul [facility] 09/26/2019 9:21 AM CDT 09/26/2019 9:42 AM CDT Narrative Resulting Agency Comment LENORA us Des Salinas MD LAB BLOOD ORDERABLES Marylu jeffery Result [address] [phone] * Blood culture Blood (09/25/2019 3:07 PM CDT) CULTURE BLOOD ADULT (SET OF 2) NO GROWTH DAY 5 [facility] Blood 09/25/2019 3:07 PM CDT 09/25/2019 3:14 PM CDT Anish Solis MD LAB MICROBIOLOGY - GENERAL OR DERABLES Final Result [facility] [address] [phone] * Antibody screen (09/25/2019 9:15 AM CDT) Antibody Screen NEGATIVE [facility] 09/25/2019 9:15 AM CDT 09/25/2019 9:29 AM CDT Narrative Resulting Agency Comment LENORA Anish Solis MD LAB BLOOD BANK TEST ORDERABLE S Final Result Performing Organization Address [facility]/ZIP Co de Phone Number [address] [phone] * Type and screen (09/25/2019 9:15 AM CDT) Blood Type OP [facility] 09/25/2019 9:15 AM CDT 09/25/2019 9:29 AM CDT Narrative [facility] - 09/25/2019 10:04 AM CDT N Resulting Agency Comment LENORA Anish Solis MD LAB BLOOD BANK TEST ORDERABLE S Final Result Performing Organization Address City/[facility]/ZIP Co de Phone Number [address] [phone] * aPTT (09/25/2019 9:15 AM CDT) APTT 27 27 - 36 SECONDS [facility] 09/25/2019 9:15 AM CDT 09/25/2019 9:29 AM CDT Narrative Resulting Agency Comment LENORA Anish Solis MD LAB BLOOD ORDERABLES Final Re sult Performing Organization Address [facility] de Phone Number [address] [phone] * (ABNORMAL) Protime-INR (09/25/2019 9:15 AM CDT) Pathologist [facility] PT 12.1(L) 12.2 - 14.8 SECONDS [facility] INR 0.87 [facility] Comment: Recommended Therapeutic range for Oral Anticoagulant Therapy No anti-coagulation therapy ? Normal Range: ?0.8-1.4 Anti-coagulation therapy ? Low intensity therapy ?2.0-3.0 ? High intensity therapy ?? 2.5-3.5 Critical Value ? Greater than or equal to 5.0 Patients should be monitored for serious bleeding. 09/25/2019 9:15 AM CDT 09/25/2019 9:29 AM CDT Narrative Resulting Agency Comment LENORA Anish Solis MD LAB BLOOD ORDERABLES Final Re sult Performing Organization Address [facility] de Phone Number [address] [phone] * (ABNORMAL) CBC with auto differential (09/25/2019 9:15 AM CDT) Pathologist [facility] WBC 6.3 3.8 - 9.9 X10 3/ul [facility] RBC 4.17(L) 4.30 - 5.80 x10 6/ul [facility] Hemoglobin 12.5(L) 13.0 - 17.5 g/dL [facility] Hct 35.8(L) 38.9 - 50.3 % [facility] MCV 85.9 81.3 - 96.4 fl [facility] MCH 30.0 27.1 - 33.3 pg [facility] MCHC 34.9 32.3 - 35.7 g/dl [facility] RDW 12.6 11.1 - 14.9 % [facility] Plt Count 251 150 - 400 x10 3/ul [facility] MPV 10.1 9.1 - 12.3 fl [facility] Neut % 45.5 % [facility] Get 2 It Sales [facility] Immature Gran % 1.6 % [facility] Lymph % 40.2 % [facility] [employer]ar - [employer] [place] % 8.3 % [facility] Social Moov Eos % 3.8 % [facility] Acceleforce [facility] AUTO [place] % 0.6 % [facility] NEUTROPHIL ABS # 2.8 1.7 - 6.5 x10 3/ul [facility] Immature Gran # 0.1 0.0 - 0.1 x10 3/ul [facility] Absolute Lymphs (auto) 2.5 0.8 - 3.3 x10 3/ul [facility] Absolute Monos (auto) 0.5 0.2 - 0.8 x10 3/ul [facility] Absolute Eos (auto) 0.2 0.0 - 0.5 x10 3/ul [facility] BASOPHIL ABS # 0.0 0.0 - 0.1 x10 3/ul [facility] Nucleat RBC Rel Count 0.0 #/100WBC [facility] NRBC abs 0.00 0.00 - 0.01 x10 3/ul [facility] Absolute Neutrophils 2,800 200 - 8,000 /ul [facility] 09/25/2019 9:15 AM CDT 09/25/2019 9:29 AM CDT Narrative Resulting Agency Comment LENORA Anish Solis MD LAB BLOOD ORDERAB[place] [address], [facility] [phone] * Hepatitis panel, acute (09/25/2019 7:23 AM CDT) HepBsAg NONREACT NONREACTIVE [facility] Comment: Siemens CentaurXP using TAMMY (chemiluminescent immunoassay) technology. NONREACTIVE: IgM antibodies to Hepatitis B Surface antigen not detected. REACTIVE: IgM antibodies to Hepatitis B Surface antigen detected. Reactive results will be confirmed by neutralization testing. HBsAb qn 129.36 mIU/mL [facility] Comment: Siemens CentaurXP using TAMMY (chemiluminescent immunoassay) technology. 9.99 IU/L or less.....NONREACTIVE: IgM antibodies to Hepatitis B Surface antibody are not detected. 10.00 IU/L or greater..REACTIVE: IgM antibodies to Hepatitis B Surface antibody are detected. Hep B core IgM NONREACT NONREACTIVE [facility] Comment: Siemens CentaurXP using TAMMY (chemiluminescent immunoassay) technology. NONREACTIVE: IgM antibodies to Hepatitis B Core antigen not detected. EQUIVOCAL: IgM antibodies to Hepatitis B Core antigen may or may not be present. Obtain a ??new specimen and retest. REACTIVE: IgM antibodies to Hepatitis B Core antigen detected. Hep A IgM NONREACT NONREACTIVE [facility] Comment: Siemens CentaurXP using TAMMY (chemiluminescent immunoassay) technology. NONREACTIVE: IgM antibodies to Hepatitis A not detected. This does not exclude possibility of exposure to Hepatitis A or early acute infection. EQUIVOCAL:IgM antibodies to Hepatitis A may or may not be present. Suggest recollection and retest. REACTIVE: Antibodies to Hepatitis A detected. Hep C Ab NONREACT NONREACTIVE [facility] Comment: Siemens CentaurXP using TAMMY (chemiluminescent immunoassay) [...] OR DERABLES Final Result Performing Organization Address [facility]/ZIP Co de Phone Number [address] [phone] * Blood culture Blood (09/25/2019 4:25 AM CDT) [facility] CULTURE BLOOD ADULT (SET OF 2) NO GROWTH DAY 5 [facility] Blood 09/25/2019 4:25 AM CDT 09/25/2019 5:43 AM CDT Anish Solis MD LAB MICROBIOLOGY - GENERAL OR DERABLES Final Result Performing Organization Address [facility] Co de Phone Number [address] [phone] * TSH+Free T4 (09/25/2019 4:25 AM CDT) [facility] TSH 1.750 0.27 - 4.20 uIU/mL [facility] Free T4 1.31 0.93 - 1.70 ng/dL [facility] 09/25/2019 4:25 AM CDT 09/25/2019 5:43 AM CDT Narrative Resulting Agency Comment [facility] us Anish Solis MD LAB BLOOD ORDERABLES Final Re sult Performing Organization Address City/[facility] Co de Phone Number [address] [phone] * Cholesterol, LDL, direct (09/25/2019 4:25 AM CDT) [facility] LDL Cholesterol Measurd 36 0 - 129 mg/dL [facility] Comment: National Lipid Association/NCEP Guidelines: ??Optimal ? < 100 mg/dL ??Near Optimal ?100-129 mg/dL ??Borderline high 130-159 mg/dL ??High ?>=160 mg/dL 09/25/2019 4:25 AM CDT 09/25/2019 5:43 AM CDT Narrative Resulting Agency Comment [facility] Result [facility] Anish Solis MD LAB BLOOD ORDERABLES Final Re sult Performing Organization Address [facility] de Phone Number [address] [phone] * (ABNORMAL) Hemoglobin A1c (09/25/2019 4:25 AM CDT) Hemoglobin A1c % 9.5(H) 4.0 - 5.6 % [facility] Comment: ADA 2016 GUIDELINES: ??Initial Diagnostic Criteria ? HbA1c Result: ?Interpretation: ?<5.7% ? Normal ?5.7-6.4% ?At risk for diabetes mellitus ?>=6.5% ?Consistent with diabetes mellitus ??Diabetes monitoring ? Target value (ADA Recommended) ?? <7% 09/25/2019 4:25 AM CDT 09/25/2019 5:43 AM CDT Narrative Resulting Agency Comment LENORA Result [facility] Anish Solis MD LAB BLOOD ORDERABLES Final Re sult Performing Organization Address [facility] de Phone Number [address] [phone] * (ABNORMAL) Creatine kinase (CK), total (09/25/2019 4:25 AM CDT) Creatine Kinase 545(H) 20 - 200 U/L [facility] Comment: Results Reviewed 09/25/2019 4:25 AM CDT 09/25/2019 5:43 AM CDT Narrative Resulting Agency Comment LENORA Anish Solis MD LAB BLOOD ORDERABLES Final Re sult Performing Organization Address [facility]/ZIP Co de Phone Number [facility] [address] [phone] * (ABNORMAL) Lipid panel (09/25/2019 4:25 AM CDT) Triglycerides 592(H) 0 - 149 mg/dL [facility] Comment: LDL(measured) to follow due to Triglycerides >250 mg/dL. National Lipid Association/NCEP Guidelines: ?? Normal ?< 150 mg/dL ?? Borderline high ?? 150-199 mg/dL ?? High ?200-499 mg/dL ?? Very High ? >=500 mg/dL Cholesterol 131 0 - 199 mg/dL [facility] Comment: National Lipid Association/NCEP Guidelines: Desirable ? < 200 mg/dL Borderline high: ??200-239 mg/dL High Risk: ?>=240 mg/dL HDL Cholesterol 20 mg/dL [facility] Comment: Reference Ranges: ? Males: >=40 mg/dL ? Females: >=50 mg/dL Cholesterol/HDL Ratio 6.6 [facility] Comment: Optimal ??< 3.5:1 High ? > 5:1 09/25/2019 4:25 AM CDT 09/25/2019 5:43 AM CDT Narrative Resulting Agency Comment LENORA Anish Solis MD LAB BLOOD ORDERABLES Final Re sult Performing Organization Address [facility] Co de Phone Number [facility] [address] [place] [address], [facility] [phone] * (ABNORMAL) Comprehensive metabolic panel (09/25/2019 4:25 AM CDT) Sodium 137 135 - 145 mmol/L [facility] Potassium 3.4 3.3 - 5.1 mmol/L [facility] Chloride 99 96 - 108 mmol/L [facility] Carbon Dioxide 24 22 - 32 mmol/L [facility] Anion Gap 14 7 - 16 [facility] Glucose 319(H) 70 - 100 mg/dL [facility] Comment: Results Reviewed BUN 7(L) 8 - 25 mg/dL [facility] Creatinine 0.8 0.5 - 1.3 mg/dL [facility] Comment: NOTE: Estimated GFR (Cockroft-Gault) will NOT be calculated unless patient Height and Weight were entered. Also, Kidney Disease Stage (GFR) and Estimated GFR (Cockroft-Gault) will NOT be calculated if Creatinine result is <0.2. Kidney Disease Stage >90 mL/MIN [facility] Comment: NOTE; ??The GFR is an estimated [...] failure or on dialysis Est GFR (Cockcroft-G) 201 ml/MIN [facility] Comment: Estimated GFR(Cockroft-Gault)is used to calculate patient medication dosage Calcium 9.2 8.6 - 10.3 mg/dL [facility] Total Protein 6.9 6.4 - 8.3 g/dL [facility] Albumin 4.1 3.5 - 5.0 g/dL [facility] Globulin 2.8 2.3 - 3.5 gm/dL [facility] Albumin/Globulin Ratio 1.5 1.1 - 1.8 [facility] Total Bilirubin 0.5 0.0 - 1.2 mg/dL [facility] AST 41(H) 0 - 40 U/L [facility] ALT 64(H) 0 - 41 U/L [facility] Alkaline Phosphatase 94 40 - 129 U/L [facility] 09/25/2019 4:2 5 AM CDT 09/25/2019 5:43 AM CDT Narrative Resulting Agency Comment LENORA Anish Solis MD LAB BLOOD ORDERABLES Edited R esult - Final Performing Organization Address City/[facility]/ZIP Co de Phone Number [address] [phone] * Troponin I (09/25/2019 4:25 AM CDT) Pathologist [facility] Troponin I <0.300 0.000 - 0.300 ng/mL [facility] Comment: Reference using NORMA Chemiluminescence ? Negative: Repeat in 4-6 hours as indicated. 09/25/2019 4:25 AM CDT 09/25/2019 5:43 AM CDT Narrative Resulting Agency Comment LENORA Anish Solis MD LAB BLOOD ORDERABLES Final Re sult Performing Organization Address City/[facility]/ZIP Co de Phone Number [address] [phone] * (ABNORMAL) CBC with auto differential (09/25/2019 4:25 AM CDT) Pathologist [facility] WBC 7.2 3.8 - 9.9 X10 3/ul [facility] RBC 4.10(L) 4.30 - 5.80 x10 6/ul [facility] Hemoglobin 12.2(L) 13.0 - 17.5 g/dL [facility] Hct 35.2(L) 38.9 - 50.3 % [facility] MCV 85.9 81.3 - 96.4 fl [facility] MCH 29.8 27.1 - 33.3 pg [facility] MCHC 34.7 32.3 - 35.7 g/dl [facility] RDW 12.4 11.1 - 14.9 % [facility] Plt Count 267 150 - 400 x10 3/ul [facility] MPV 10.5 9.1 - 12.3 fl [facility] Neut % 46.3 % [facility] Get 2 It Sales [facility] Immature Gran % 1.4 % [facility] Lymph % 39.9 % [facility] Social Moov [place] % 7.8 % [facility] Social Moov Eos % 3.8 % [facility] TaxJar [facility] AUTO BASO % 0.8 % [facility] NEUTROPHIL ABS # 3.3 1.7 - 6.5 x10 3/ul [facility] Immature Gran # 0.1 0.0 - 0.1 x10 3/ul [facility] Absolute Lymphs (auto) 2.9 0.8 - 3.3 x10 3/ul [facility] Absolute Monos (auto) 0.6 0.2 - 0.8 x10 3/ul [facility] Absolute Eos (auto) 0.3 0.0 - 0.5 x10 3/ul [facility] BASOPHIL ABS # 0.1 0.0 - 0.1 x10 3/ul [facility] Nucleat RBC Rel Count 0.0 #/100WBC [facility] NRBC abs 0.00 0.00 - 0.01 x10 3/ul [facility] Absolute Neutrophils 3,300 200 - 8,000 /ul [facility] 09/25/2019 4:25 AM CDT 09/25/2019 5:43 AM CDT Narrative Resulting Agency Comment LENORA us Anish Solis MD LAB BLOOD ORDERABLES Final Re sult [facility] [address] [phone] * Lactate (09/25/2019 4:25 AM CDT) LACTATE 1.1 mmol/L [facility] Comment: Lactate Reference Range: 0.5 - 2.2 mmol/L 09/25/2019 4:25 AM CDT 09/25/2019 5:10 AM CDT Narrative Resulting Agency Comment LENORA Anish Solis MD LAB BLOOD ORDERABLES Final Re sult [address] [phone] * ECG 12 lead (09/25/2019 12:39 AM CDT) Ventricular Rate EKG/Min 104 BPM [facility] Atrial Rate 104 BPM [facility] GA-Interval (MSEC) 144 ms [facility] QRS-Interval (MSEC) 78 ms [facility] QT-Interval (MSEC) 354 ms [facility] QTc 465 ms [facility] P [place] 45 degrees [facility] R [place] 12 degrees [facility] T [place] 25 degrees [facility] Diagnosis Sinus tachycardia Otherwise normal ECG When compared with ECG of 24-SEP-2019 21:34, No significant change was found [facility] 09/25/2019 12:3 9 AM CDT 09/25/2019 10:33 AM CDT Narrative Resulting Agency Comment INPAT Anish Solis MD ECG ORDERABLES Final Result [facility] * NM Hepatobiliary Imaging (09/25/2019 12:00 AM CDT) Anatomical Region Laterality Modality Body N/A Nuclear Medicine 09/25/2019 10:2 5 PM CDT Narrative 09/25/2019 10:31 PM CDT Patient Name: AMA BAILEY ?Ordering Dr: Oscar Adrian MD ?? D.O.B: 1985 ? Exam Date: 09/25/19 ?? 0000 ?? Age: 33 ?Sex: Male ? MR#: [id number] ?? Loc: ??[id number] ? RADIOLOGY REPORT ?? Order #[id number] ?? Nuclear Medicine ? HIDA w/Fatty Meal ? Signed ? EXAM DESCRIPTION: ?? HIDA w/Fatty Meal ? RADIOPHARMACEUTICAL: ?? 5.2 mCi Tc-99m mebrofenin via a ??left AC IV site and 8 ?? oz Ensure Plus or equivalent P.O. ? REASON FOR STUDY: ?? Abdomen pain, nausea vomiting and diarrhea for 5 days. ? TECHNIQUE: ??Following the intravenous administration of the ?? radiopharmaceutical, sequential abdominal images were obtained. ? COMPARISON: ?? CT abdomen 09/24/2019 ? FINDINGS: ? Prompt uniform tracer uptake throughout the liver with activity in the ?? gallbladder within 8 minutes. ??Progressive hepatic washout with increased ?? gallbladder activity up to 1 hour. ??Small bowel activity is noted on delayed ?? scan at 1.5 hour. ? Following the oral administration of Ensure Plus or equivalent, the ?? gallbladder ejection fraction was calculated and was ??36 % (normal: greater ?? than 40%, equivocal: 30-40%, and abnormal: less than 30%). ? IMPRESSION: ??Normal hepatobiliary scan with prompt visualization of the ?? gallbladder. ? Gallbladder ejection fraction is 36%. ??This is borderline, with normal ?? considered greater than 40%. ? THIS IS AN ELECTRONICALLY VERIFIED FINAL REPORT ?? 09/25/2019 10:31 PM - Electronically signed by Nasir Lozada M.D. ?? Nasir Lozada M.D. ? DL: DL ?? D: ??09/25/2019 10:31 PM ?? T: ??09/25/2019 10:31 PM ? Report ID: [id number] ?? Reading Location: ??[id number] ? REPORT ELECTRONICALLY SIGNED IN OTHER VENDOR SYSTEM ?? Resulting Agency Comment I Procedure Note Nasir Lozada MD - 09/25/2019 Patient Name: AMA BAILEY Dr: Oscar Adrian MD D.O.B: 1985 Exam Date: 09/25/19 0000 Age: 33 Sex: Male MR#: [id number] Loc: [id number] RADIOLOGY REPORT Order #[id number] Nuclear Medicine HIDA w/Fatty Meal Signed EXAM DESCRIPTION: HIDA w/Fatty Meal RADIOPHARMACEUTICAL: 5.2 mCi Tc-99m mebrofenin via a left AC IV siteand 8 oz Ensure Plus or equivalent P.O. REASON FOR STUDY: Abdomen pain, nausea vomiting and diarrhea for 5days. TECHNIQUE: Following the intravenous administration of the radiopharmaceutical, sequential abdominal images were obtained. COMPARISON: CT abdomen 09/24/2019 FINDINGS: Prompt uniform tracer uptake throughout the liver with activity in the gallbladder within 8 minutes. Progressive hepatic washout with increased gallbladder activity up to 1 hour. Small bowel activity is noted ondelayed scan at 1.5 hour. Following the oral administration of Ensure Plus or equivalent, the gallbladder ejection fraction was calculated and was 36 % (normal:greater than 40%, equivocal: 30-40%, and abnormal: less than 30%). IMPRESSION: Normal hepatobiliary scan with prompt visualization of the gallbladder. Gallbladder ejection fraction is 36%. This is borderline, with normal considered greater than 40%. THIS IS AN ELECTRONICALLY VERIFIED FINAL REPORT 09/25/2019 10:31 PM - Electronically signed by Nasir Lozada M.D. DL: MARIE Report ID: [id number] Reading Location: [place] [address] REPORT ELECTRONICALLY SIGNED IN OTHER VENDOR SYSTEM us Oscar Adrian MD IMG NM PROCEDURES Final Res ult * US RUQ (09/25/2019 12:00 AM CDT) Anatomical Region Laterality Modality Abdomen N/A Ultrasound 09/25/2019 11:2 0 AM CDT Narrative 09/25/2019 11:22 AM CDT Patient Name: AMA BAILEY ?Ordering Dr: Anish Solis MD ?? D.O.B: 1985 ? Exam Date: 09/24/20 ?? 0000 ?? Age: 33 ?Sex: Male ? MR#: [id number] ?? Loc: ??[id number] ? RADIOLOGY REPORT ?? Order #[id number] ?? Ultrasound ? US Abd/Right Upper Quadrant ? Signed ? EXAM DESCRIPTION: ?? US Abd/Right Upper Quadrant ? REASON FOR STUDY: ??Right upper quadrant abdominal pain for 5 days. ? TECHNIQUE: ??Ultrasound of the right upper quadrant of the abdomen was ?? performed with grayscale and color doppler. ? COMPARISON: ?? CT abdomen and pelvis 09/24/2019. ? FINDINGS: ? PANCREAS: ??Visualized portions of the pancreas are within normal limits. ?? Portions of the pancreatic body and tail are obscured due to bowel gas. ? LIVER: ??Liver is 20.6 cm and heterogeneous in echotexture evidence of hepatic ?? steatosis. ??No focal hepatic lesions are seen. ? GALLBLADDER: ??No echogenic gallstones, gallbladder wall thickening, or ?? pericholecystic fluid is seen. ??Reportedly there was tenderness over the ?? gallbladder but a reported negative sonographic Chakraborty's sign. ? BILIARY: ??There is no intrahepatic or extrahepatic biliary ductal dilatation. ?? Common bile duct measures ??0.5 cm in diameter. ? RIGHT KIDNEY: ??Normal size. Normal echogenicity. No solid mass or cyst. ??No ?? hydronephrosis. Measures ??12.6 cm in length. ? OTHER: ??No other significant findings. ? IMPRESSION: ? 1. ??No evidence of cholelithiasis or cholecystitis. ??Tenderness reported over ?? the gallbladder. ? 2. ??Hepatic steatosis and hepatomegaly. ? THIS IS AN ELECTRONICALLY VERIFIED FINAL REPORT ?? 09/25/2019 11:22 AM - Electronically signed by Alessio Arango M.D. ?? Alessio Arango M.D. ? CH: CH ?? D: ??09/25/2019 11:22 AM ?? T: ??09/25/2019 11:22 AM ? Report ID: [id number] ?? Reading Location: ??[id number] ? REPORT ELECTRONICALLY SIGNED IN OTHER VENDOR SYSTEM ?? Resulting Agency Comment I Procedure Note Alessio Arango Jr., MD - 09/25/2019 Patient Name: AMA BAILEY Dr: Anish Solis MDO.B: 1985 Exam Date: 09/25/19 0000 Age: 33 Sex: Male MR#: [id number] Loc: [id number] RADIOLOGY REPORT Order #[id number] Ultrasound US Abd/Right Upper Quadrant Signed EXAM DESCRIPTION: US Abd/Right Upper Quadrant REASON FOR STUDY: Right upper quadrant abdominal pain for 5 days. TECHNIQUE: Ultrasound of the right upper quadrant of the abdomen was performed with grayscale and color doppler. COMPARISON: CT abdomen and pelvis 09/24/2019. FINDINGS: PANCREAS: Visualized portions of the pancreas are within normal limits. Portions of the pancreatic body and tail are obscured due to bowel gas. LIVER: Liver is 20.6 cm and heterogeneous in echotexture evidence ofhepatic steatosis. No focal hepatic lesions are seen. GALLBLADDER: No echogenic gallstones, gallbladder wall thickening, or pericholecystic fluid is seen. Reportedly there was tenderness over the gallbladder but a reported negative sonographic Chakraborty's sign. BILIARY: There is no intrahepatic or extrahepatic biliary ductaldilatation. Common bile duct measures 0.5 cm in diameter. RIGHT KIDNEY: Normal size. Normal echogenicity. No solid mass or cyst.No hydronephrosis. Measures 12.6 cm in length. OTHER: No other significant findings. IMPRESSION: 1. No evidence of cholelithiasis or cholecystitis. Tenderness reportedover the gallbladder. 2. Hepatic steatosis and hepatomegaly. THIS IS AN ELECTRONICALLY VERIFIED FINAL REPORT 09/25/2019 11:22 AM - Electronically signed by Alessio Arango M.D. CH: LAINA Report ID: [id number] Reading Location: [id number] REPORT ELECTRONICALLY SIGNED IN OTHER VENDOR SYSTEM Anish Solis MD IMG US PROCEDURES Final Resul t * XR Chest 1 View (09/24/2019 10:18 PM CDT) Anatomical Region Laterality Modality Body, Chest N/A Radiographic Britt ging 09/24/2019 11:1 2 PM CDT Narrative 09/24/2019 11:17 PM CDT Patient Name: AMA BAILEY ?Ordering Dr: Seven Infante DO ?? D.O.B: 1985 ? Exam Date: 09/24/19 ?? 221 ?? Age: 33 ?Sex: Male ? MR#: [id number] ?? Loc: ? RADIOLOGY REPORT ?? Order #[id number] ?? Radiology ? Chest 1 View Portable ? Signed ? EXAM DESCRIPTION: ?? Chest 1 View Portable ? REASON FOR STUDY: ?? drowsiness and ruq pain x 2 days ? TECHNIQUE: ?? Frontal radiographic view of the chest acquired. ? COMPARISON: ?? 11/26/2010 ? FINDINGS: ? LUNGS/PLEURA: ??The lungs are clear bilaterally. ??No pulmonary mass or acute ?? infiltrate. ??There are no pleural effusions. ??No pneumothorax. ? HEART/MEDIASTINUM: ??Heart size is normal. Normal mediastinal and hilar ?? contours. ? HARDWARE/LINES/TUBES: ??None. ? BONES: ??No acute findings. ? OTHER: ??No other significant finding. ? IMPRESSION: ?? No acute cardiopulmonary disease. ? THIS IS AN ELECTRONICALLY VERIFIED FINAL REPORT ?? 09/24/2019 11:17 PM - Electronically signed by Sekou Gaines ?? Sekou Gaines ? KT: KT ?? D: ??09/24/2019 11:17 PM ?? T: ??09/24/2019 11:17 PM ? Report ID: [id number] ?? Reading Location: ??[id number] ? REPORT ELECTRONICALLY SIGNED IN OTHER VENDOR SYSTEM ?? Resulting Agency Comment E Procedure Note Sekou Gaines MD - 09/24/2019 Patient Name: AMA BAILEY Dr: Seven Infante DO DMaverickB: 1985 Exam Date: 09/24/192217 Age: 33 Sex: Male MR#: [id number] Loc: RADIOLOGY REPORT Order #[id number] Radiology Chest 1 View Portable Signed EXAM DESCRIPTION: Chest 1 View Portable REASON FOR STUDY: drowsiness and ruq pain x 2 days TECHNIQUE: Frontal radiographic view of the chest acquired. COMPARISON: 11/26/2010 FINDINGS: LUNGS/PLEURA: The lungs are clear bilaterally. No pulmonary mass oracute infiltrate. There are no pleural effusions. No pneumothorax. HEART/MEDIASTINUM: Heart size is normal. Normal mediastinal and hilar contours. HARDWARE/LINES/TUBES: None. BONES: No acute findings. OTHER: No other significant finding. IMPRESSION: No acute cardiopulmonary disease. THIS IS AN ELECTRONICALLY VERIFIED FINAL REPORT 09/24/2019 11:17 PM - Electronically signed by Sekou Gaines KT: NADEEN Report ID: [id number] Reading Location: [place] [address] REPORT ELECTRONICALLY SIGNED IN OTHER VENDOR SYSTEM Seven Infante DO IMG XR PROCEDURES Final Result * (ABNORMAL) BLOOD GAS w/LYTES & LACTATE (09/24/2019 10:17 PM CDT) Specimen Type Arterial [facility] Puncture Site RR [facility] Patient Temperature 37.0 C [facility] pH 7.396 7.350 - 7.450 [facility] pCO2 39.0 32.0 - 48.0 mmHg [facility] pO2 87.7 80.0 - 110.0 mmHg [facility] HCO3 23.5 22.0 - 26.0 mmol/L [facility] Total CO2 24.7 20.0 - 30.0 mmol/L [facility] Base Excess -0.7 -2.0 - 2.0 mmol/L [facility] Hb (BLOOD GAS) 13.6(L) 13.8 - 17.2 g/dL [facility] O2 Saturation 94.6 90.0 - 95.0 % [facility] ABG Carboxyhemoglobin 0.9 <3.0 % [facility] ABG Methemoglobin 0.9 <2.0 % [facility] ABG O2 Content 18.1 17.6 - 24.3 Vol % [facility] Na+ (BLOOD GAS) 135 135 - 145 mmol/L [facility] K+ (BLOOD GAS) 3.8 3.3 - 4.9 mmol/L [facility] Ionized Calcium 1.19 1.13 - 1.28 mmol/L [facility] GLUCOSE (BLOOD GAS) 406(H) 65 - 199 mg/dL [facility] Lactate 1.1 0.5 - 2.0 mmol/L [facility] A-a O2 Difference 14.9(H) <=10.0 [facility] a/A Ratio 85.5 >=0.8 [facility] FiO2 21.0 % [facility] BG Specimen Comment ER9 [facility] Executive Creative Director ID AEM [facility] 09/24/2019 10:1 7 PM CDT 09/24/2019 10:19 PM CDT Narrative [facility] - 09/24/2019 10:21 PM CDT Conditions Oxygen Source Arterial Resulting Agency Comment ER us Seven Infante DO LAB BLOOD [place] [address], [facility] [phone] * Drugs of Abuse Screen, Urine without Confirmation (09/24/2019 10:08 PM CDT) [facility] Amphetamines NOT DETECTED [facility] Comment: This assay uses 500 ng/mL as a cutoff for a positive result. Barbiturates NOT DETECTED [facility] Comment: This assay uses 200 ng/mL as a cutoff for a positive result. Urine Fentanyl NOT DETECTED [facility] Comment: This assay uses 1 ng/mL as a cutoff for a positive result. Benzodiazepines NOT DETECTED [facility] Comment: This assay uses 100 ng/mL as a cutoff for a positive result. Cannabinoids NOT DETECTED [facility] Comment: This assay uses 50 ng/mL as a cutoff for a positive result. Cocaine NOT DETECTED [facility] Comment: This assay uses 150 ng/mL as a cutoff for a positive result. Opiates NOT DETECTED [facility] Comment: This assay uses 300 ng/mL as a cutoff for a positive result. Urine methadone NOT DETECTED [facility] Comment: This assay uses 300 ng/mL as a cutoff for a positive result. Urine phencyclidine plus NOT DETECTED [facility] Comment: This assay uses 25 ng/mL as a cutoff for a positive result. Oxycodone NOT DETECTED [facility] Comment: This assay uses 100 ng/mL as a cutoff for a positive result. Urine Creatinine/CAROLE 59.9 mg/dL [facility] Comment: If Creatinine is < 40 mg/dL, recollection is suggested. 09/24/2019 10:0 8 PM CDT 09/24/2019 10:27 PM CDT Narrative Resulting Agency Comment ER us Seven Infante DO LAB URINE ORDERABLES Final Res ult [address] [phone] * (ABNORMAL) Urinalysis reflex to microscopic and culture (09/24/2019 10:08 PM CDT) Ur Collection Type CLEAN CATCH [facility] Ur Culture Indicated? C S NOT INDICATED [facility] Urine Color STRAW YELLOW [facility] Urine Clarity CLEAR CLEAR [facility] Urine Glucose (UA) >=500(A) NORMAL mg/dL [facility] Urine Bilirubin NEGATIVE NEGATIVE mg/dl [facility] Urine Ketones 5(A) NEGATIVE mg/dL [facility] Ur Specific Jasper 1.037(H) 1.005 - 1.025 [facility] Urine Blood 0.03(A) NEGATIVE mg/dl [facility] Urine pH 5.0 5.0 - 8.0 [facility] Urine Protein NEGATIVE NEGATIVE mg/dL [facility] Urine Urobilinogen NORMAL NORMAL mg/dL [facility] Urine Nitrite NEGATIVE NEGATIVE [facility] Ur Leukocyte Esterase NEGATIVE NEGATIVE Pollo/ul [facility] Ur Microscopic Review Not Indicated [facility] 09/24/2019 10:0 8 PM CDT 09/24/2019 10:27 PM CDT Narrative [facility] - 09/24/2019 10:48 PM CDT Indication(s) for ordering ?? Delirium/malaise/lethargy [facility] Resulting Agency Comment ER Seven Infante DO LAB MICROBIOLOGY - GENERAL ORD ERABLES Final Result [address] [phone] * CT Head WO Contrast (09/24/2019 9:59 PM CDT) Anatomical Region Laterality Modality Head and Neck N/A Computed Tomogra phy 09/24/2019 11:2 9 PM CDT Narrative 09/24/2019 11:31 PM CDT Patient Name: AMA BAILEY ?Ordering Seven Kurtz DO ?? D.O.B: 1985 ? Exam Date: 06/25/20 ?? 2159 ?? Age: 33 ?Sex: Male ? MR#: [id number] ?? Loc: ? RADIOLOGY REPORT ?? Order #[id number] ?? CT Scan ? CT Head WO IV Contrast ? Signed ? EXAM DESCRIPTION: ?? CT Head WO IV Contrast ? REASON FOR STUDY: ?? Headache ? TECHNIQUE: ??Axial images acquired through the brain without intravenous ?? contrast. ??Images stored on PACS. ?? Automated exposure control was used as a ?? dose optimization technique for this examination. ? COMPARISON: ?? CT brain dated 11/26/2010 ? FINDINGS: ? BRAIN: ??No hemorrhage, edema or mass effect. No recent infarct. ??Normal white ?? matter. ? EXTRA-AXIAL SPACES: ??No fluid collections. No masses. ? CALVARIUM: ??No fracture. ? SINUSES/MASTOIDS: ??No fluid or mucosal thickening. ? ORBITS: ??No significant abnormality. ? OTHER: ??No other significant abnormality. ? IMPRESSION: ?? No acute intracranial findings. ? THIS IS AN ELECTRONICALLY VERIFIED FINAL REPORT ?? 09/24/2019 11:31 PM - Electronically signed by Brianna Mckeon M.D. ?? Brianna Mckeon M.D. ? SS: SS ?? D: ??09/24/2019 11:31 PM ?? T: ??09/24/2019 11:31 PM ? Report ID: [id number] ?? Reading Location: ??[id number] ? REPORT ELECTRONICALLY SIGNED IN OTHER VENDOR SYSTEM ?? Resulting Agency Comment E Procedure Note Brianna Mckoen MD - 09/24/2019 Patient Name: AMA BAILEY Dr: Seven Infante DO, D.O.B: 1985 Exam Date: 09/24/19 0739 Age: 33 Sex: Male MR#: [id number] Loc: RADIOLOGY REPORT Order #[id number] CT Scan CT Head WO IV Contrast Signed EXAM DESCRIPTION: CT Head WO IV Contrast REASON FOR STUDY: Headache TECHNIQUE: Axial images acquired through the brain without intravenous contrast. Images stored on PACS. Automated exposure control was usedas a dose optimization technique for this examination. COMPARISON: CT brain dated 11/26/2010 FINDINGS: BRAIN: No hemorrhage, edema or mass effect. No recent infarct. Normalwhite matter. EXTRA-AXIAL SPACES: No fluid collections. No masses. CALVARIUM: No fracture. SINUSES/MASTOIDS: No fluid or mucosal thickening. ORBITS: No significant abnormality. OTHER: No other significant abnormality. IMPRESSION: No acute intracranial findings. THIS IS AN ELECTRONICALLY VERIFIED FINAL REPORT 09/24/2019 11:31 PM - Electronically signed by Brianna Mckeon M.D. SS: [id number] Report ID: [id number] Reading Location: [place] [address] REPORT ELECTRONICALLY SIGNED IN OTHER VENDOR SYSTEM Seven [place] DO [facility] CT PROCEDURES Final Result * Procalcitonin (09/24/2019 9:35 PM CDT) Procalcitonin 0.09 0.0 - 0.24 ng/mL [facility] Comment: Guidelines for use with Community Acquired Pneumonia(CAP)- ONLY: ?? <0.1 ng/mL: Use of antibiotics is STRONGLY discouraged ?? 0.1-0.24 ng/mL: Use of antibiotics is discouraged ?? 0.25-0.5 ng/mL: Use of antibiotics is encouraged ?? >0.5 ng/mL: Use of antibiotics is STRONGLY encouraged ?? Recommend repeating every 2-3 days if initial PCT >0.24 09/24/2019 9:35 PM CDT 09/24/2019 9:42 PM CDT Narrative Resulting Agency Comment LENORA Stephen [facility]OK[facility] LAB BLOOD ORDERABLES Final Res ult Performing Organization Address [facility]/ZIP Co de Phone Number [address] [phone] * CRP (acute phase) (09/24/2019 9:35 PM CDT) C-Reactive Protein 7.1 0.0 - 10.0 mg/L [facility] 09/24/2019 9:35 PM CDT 09/24/2019 9:42 PM CDT Narrative Resulting Agency Comment LENORA Stephen [facility]OK[facility] LAB BLOOD ORDERABLES Final Res ult Performing Organization Address [facility] Co de Phone Number [address] [phone] * Troponin I (09/24/2019 9:35 PM CDT) Troponin I <0.300 0.000 - 0.300 ng/mL [facility] Comment: Reference using NORMA Chemiluminescence ? Negative: Repeat in 4-6 hours as indicated. 09/24/2019 9:35 PM CDT 09/24/2019 9:42 PM CDT Narrative Resulting Agency Comment LENORA Stephen [facility]OK[facility] LAB BLOOD ORDERABLES Final Res ult [address] [phone] * (ABNORMAL) Creatine kinase (CK), total (09/24/2019 9:35 PM CDT) Creatine Kinase 680(H) 20 - 200 U/L [facility] 09/24/2019 9:35 PM CDT 09/24/2019 9:42 PM CDT Narrative Resulting Agency Comment LENORA Stephen [facility]OK[facility] LAB BLOOD ORDERABLES Final Res ult Performing Organization Address [facility] Co de Phone Number [address] [phone] * (ABNORMAL) Beta-hydroxybutyrate (09/24/2019 9:35 PM CDT) B-Hydroxybutyr ate 0.7(H) 0.0 - 0.4 mmol/L [facility] B-Hydroxybutyr ate 0.7(H) 0.0 - 0.4 mmol/L [facility] 09/24/2019 9:35 PM CDT 09/24/2019 9:42 PM CDT Narrative Resulting Agency Comment LENORA Stephen [facility]OK[facility] LAB BLOOD ORDERABLES Final Res ult Performing Organization Address City/[facility]/ZIP Co de Phone Number [facility] [address] [place] [address], [facility] [phone] * Phosphorus (09/24/2019 9:35 PM CDT) Phosphorus 4.2 2.3 - 4.5 mg/dL [facility] Phosphorus 4.2 2.3 - 4.5 mg/dL [facility] 09/24/2019 9:35 PM CDT 09/24/2019 9:42 PM CDT Narrative Resulting Agency Comment LENORA Stephen [facility]OK[facility] LAB BLOOD ORDERABLES Final Res ult Performing Organization Address [facility]/ZIP Co de Phone Number [address] [phone] * Magnesium (09/24/2019 9:35 PM CDT) Magnesium 1.8 1.6 - 2.6 mg/dL [facility] Comment: Magnesium sulfate therapy: ??3.0-9.1 mg/dL Magnesium 1.8 1.6 - 2.6 mg/dL [facility] Comment: Magnesium sulfate therapy: ??3.0-9.1 mg/dL 09/24/2019 9:35 PM CDT 09/24/2019 9:42 PM CDT Narrative Resulting Agency Comment LENORA us Stephen [facility]OKES LAB BLOOD ORDERABLES Final Res ult Performing Organization Address [facility]/ZIP Co de Phone Number [address] [phone] * Lipase (09/24/2019 9:35 PM CDT) Lipase 53 13 - 60 U/L [facility] 09/24/2019 9:35 PM CDT 09/24/2019 9:42 PM CDT Narrative Resulting Agency Comment LENORA Stephen [facility]OK[facility] LAB BLOOD ORDERABLES Final Res ult Performing Organization Address [facility]/ZIP Co de Phone Number [address] [phone] * (ABNORMAL) Comprehensive metabolic panel (09/24/2019 9:35 PM CDT) Sodium 132(L) 135 - 145 mmol/L [facility] Potassium 4.0 3.3 - 5.1 mmol/L [facility] Chloride 92(L) 96 - 108 mmol/L [facility] Carbon Dioxide 24 22 - 32 mmol/L [facility] Anion Gap 16 7 - 16 [facility] Glucose 490(HH) 70 - 100 mg/dL [facility] Comment: CRITICAL VALUE CALLED and REPEATED. at:2231 09/24/19 by:Anurag Marley to:DONAVAN BUN 8 8 - 25 mg/dL [facility] Creatinine 1.0 0.5 - 1.3 mg/dL [facility] Comment: NOTE: Estimated GFR (Cockroft-Gault) will NOT be calculated unless patient Height and Weight were entered. Also, Kidney Disease Stage (GFR) and Estimated GFR (Cockroft-Gault) will NOT be calculated if Creatinine result is <0.2. Kidney Disease Stage >90 mL/MIN [facility] Comment: NOTE; ??The GFR is an estimated [...] failure or on dialysis Est GFR (Cockcroft-G) 160 ml/MIN [facility] Comment: Estimated GFR(Cockroft-Gault)is used to calculate patient medication dosage Calcium 9.8 8.6 - 10.3 mg/dL [facility] Total Protein 7.9 6.4 - 8.3 g/dL [facility] Albumin 4.7 3.5 - 5.0 g/dL [facility] Globulin 3.2 2.3 - 3.5 gm/dL [facility] Albumin/Globulin Ratio 1.5 1.1 - 1.8 [facility] Total Bilirubin 0.4 0.0 - 1.2 mg/dL [facility] AST 59(H) 0 - 40 U/L [facility] ALT 83(H) 0 - 41 U/L [facility] Alkaline Phosphatase 125 40 - 129 U/L [facility] 09/24/2019 9:35 PM CDT 09/24/2019 9:42 PM CDT Narrative Resulting Agency Comment LENORA us Stephen [facility]OK[facility] LAB BLOOD ORDERABLES Edited Re sult - Final [facility] [address] [phone] * CBC with auto differential (09/24/2019 9:35 PM CDT) WBC 8.4 3.8 - 9.9 X10 3/ul [facility] RBC 4.70 4.30 - 5.80 x10 6/ul [facility] Hemoglobin 14.1 13.0 - 17.5 g/dL [facility] Hct 40.0 38.9 - 50.3 % [facility] MCV 85.1 81.3 - 96.4 fl [facility] MCH 30.0 27.1 - 33.3 pg [facility] MCHC 35.3 32.3 - 35.7 g/dl [facility] RDW 12.3 11.1 - 14.9 % [facility] Plt Count 285 150 - 400 x10 3/ul [facility] MPV 10.4 9.1 - 12.3 fl [facility] Neut % 55.0 % [facility] AST [facility] Immature Gran % 1.2 % [facility] Lymph % 33.0 % [facility] [place] % 7.2 % [facility] Eos % 2.9 % [facility] AUTO BAS[place] % 0.7 % [facility] NEUTROPHIL ABS # 4.6 1.7 - 6.5 x10 3/ul [facility] Immature Gran # 0.1 0.0 - 0.1 x10 3/ul [facility] Absolute Lymphs (auto) 2.8 0.8 - 3.3 x10 3/ul [facility] Absolute Monos (auto) 0.6 0.2 - 0.8 x10 3/ul [facility] Absolute Eos (auto) 0.2 0.0 - 0.5 x10 3/ul [facility] BASOPHIL ABS # 0.1 0.0 - 0.1 x10 3/ul [facility] Nucleat RBC Rel Count 0.0 #/100WBC [facility] NRBC abs 0.00 0.00 - 0.01 x10 3/ul [facility] Absolute Neutrophils 4,600 200 - 8,000 /ul [facility] 09/24/2019 9:35 PM CDT 09/24/2019 9:42 PM CDT Narrative Resulting Agency Comment ER Stephen [facility]OK[facility] LAB BLOOD ORDERABLES Final Res ult [facility] [address] [place] [address], [facility] [phone] * ECG 12 lead (09/24/2019 9:34 PM CDT) Ventricular Rate EKG/Min 113 BPM [facility] Atrial Rate 113 BPM [facility] GA-Interval (MSEC) 140 ms [facility] QRS-Interval (MSEC) 78 ms [facility] QT-Interval (MSEC) 344 ms [facility] QTc 471 ms [facility] P [place] 35 degrees [facility] R [place] 12 degrees [facility] T [place] 31 degrees [facility] Diagnosis Sinus tachycardia Otherwise normal ECG When compared with ECG of 26-NOV-2010 17:32, Premature ventricular complexes are no longer Present [facility] 09/24/2019 9:34 PM CDT 09/25/2019 10:32 AM CDT Narrative Resulting Agency Comment EVARISTO us Stephen STOKES ECG ORDERABLES Final Result Performing Organization Address [facility]/State/ZIP Co de Phone Number [facility] * CT Abdomen Pelvis W Contrast (09/24/2019 8:56 PM CDT) Anatomical Region Laterality Modality Body N/A Computed Tomogra phy 09/24/2019 11:2 2 PM CDT Narrative 09/24/2019 11:28 PM CDT Patient Name: AMA BAILEY ?Ordering Dr: Stephen Mc-Antonino ?? D.O.B: 1985 ? Exam Date: 09/24/19 ?? 2055 ?? Age: 33 ?Sex: Male ? MR#: [id number] ?? Loc: ? RADIOLOGY REPORT ?? Order #[id number] ?? CT Scan ? CT Abd/Pelvis W IV Contrast ? Signed ? EXAM DESCRIPTION: ?? CT Abd/Pelvis W IV Contrast ? REASON FOR STUDY: ?? Right upper quadrant abdominal pain which radiates into ?? the back, unable to eat, bloody stools, nausea ? TECHNIQUE: ??CT scan of the abdomen and pelvis performed with intravenous and ? without oral contrast using helical scanning technique with dynamic ?? intravenous contrast injection. Reconstructed coronal and sagittal MPR images ?? reviewed. All images stored on PACS. ? Automated exposure control was used as a dose optimization technique for this ?? examination. ? CONTRAST TYPE/DOSE: ?? 100 mL of Optiray 350 injected via ??left antecubital ?? fossa intravenously ? COMPARISON: ?? CT of the abdomen and pelvis with contrast dated 06/25/2010 ? FINDINGS: ? LOWER CHEST: ??4 mm nodule within the posterior aspect of the right lower lobe ?? (axial image 36 of 217), not present on prior CT. ? LIVER: ??There is hepatic steatosis. ? GALLBLADDER: ??No cholelithiasis. ? BILE DUCTS: ??No intrahepatic or extrahepatic ductal dilatation. ? SPLEEN: ??Normal size. ??No focal lesions. ??Small accessory splenule medial to ?? the spleen. ? PANCREAS: No identified cystic or solid masses. No significant calcifications. ?? No adjacent inflammation or peripancreatic fluid collections. Pancreatic duct ?? not dilated. ? ADRENALS: ??Normal. ? KIDNEYS/URINARY TRACT: ??No identified significant cystic or solid masses. No ?? visualized stones. No hydronephrosis or hydroureter. Symmetric enhancement. ? Urinary bladder is unremarkable. ? GI: ??The stomach and duodenum are incompletely distended and therefore ?? suboptimally assessed, otherwise grossly unremarkable. ??No dilated bowel ?? loops. No obvious wall thickening. ??Normal appendix. ??No significant ?? diverticular disease. ??There is a small umbilical hernia which contains ?? noninflamed mesenteric fat only. ? PERITONEUM: ??No ascites or free air. ? RETROPERITONEUM: ??No mass or adenopathy. ? REPRODUCTIVE: ??No significant abnormality. ? VASCULATURE: ??No abdominal aortic aneurysm. ? MUSCULOSKELETAL: ??No significant abnormality. ? OTHER: ??None ? IMPRESSION: ? 1. ??No acute pathology of the large or small bowel. ??The cause of this ?? patient's bloody stool is not evident on the basis of this examination. ? 2. ??Hepatic steatosis. ? 3. ??No cholelithiasis. ? 4. ??Small umbilical hernia which contains noninflamed mesenteric fat only. ? 5. ??4 mm nodule within the posterior aspect of the right lower lobe. ??If this ?? patient is high risk, recommend CT follow-up in 12 months. ??Otherwise, no ?? further follow-up is required. ? THIS IS AN ELECTRONICALLY VERIFIED FINAL REPORT ?? 09/24/2019 11:28 PM - Electronically signed by Brianna Mckeon M.D. ?? Brianna Mckeon M.D. ? SS: SS ?? D: ??09/24/2019 11:28 PM ?? T: ??09/24/2019 11:28 PM ? Report ID: [id number] ?? Reading Location: ??[id number] ? REPORT ELECTRONICALLY SIGNED IN OTHER VENDOR SYSTEM ?? Resulting Agency Comment E Procedure Note Brianna Mckeon MD - 09/24/2019 Patient Name: AMA BAILEY Dr: Stephen Mc PA-C, D.O.B: 1985 Exam Date: 09/24/192055 Age: 33 Sex: Male MR#: [id number] Loc: RADIOLOGY REPORT Order #[id number] CT Scan CT Abd/Pelvis W IV Contrast Signed EXAM DESCRIPTION: CT Abd/Pelvis W IV Contrast REASON FOR STUDY: Right upper quadrant abdominal pain which radiatesinto the back, unable to eat, bloody stools, nausea TECHNIQUE: CT scan of the abdomen and pelvis performed with intravenousand without oral contrast using helical scanning technique with dynamic intravenous contrast injection. Reconstructed coronal and sagittal MPRimages reviewed. All images stored on PACS. Automated exposure control was used as a dose optimization technique forthis examination. CONTRAST TYPE/DOSE: 100 mL of Optiray 350 injected via leftantecubital fossa intravenously COMPARISON: CT of the abdomen and pelvis with contrast dated 06/25/2010 FINDINGS: LOWER CHEST: 4 mm nodule within the posterior aspect of the right lowerlobe (axial image 36 of 217), not present on prior CT. LIVER: There is hepatic steatosis. GALLBLADDER: No cholelithiasis. BILE DUCTS: No intrahepatic or extrahepatic ductal dilatation. SPLEEN: Normal size. No focal lesions. Small accessory splenule medialto the spleen. PANCREAS: No identified cystic or solid masses. No significantcalcifications. No adjacent inflammation or peripancreatic fluid collections. Pancreaticduct not dilated. ADRENALS: Normal. KIDNEYS/URINARY TRACT: No identified significant cystic or solid masses.No visualized stones. No hydronephrosis or hydroureter. Symmetricenhancement. Urinary bladder is unremarkable. GI: The stomach and duodenum are incompletely distended and therefore suboptimally assessed, otherwise grossly unremarkable. No dilated bowel loops. No obvious wall thickening. Normal appendix. No significant diverticular disease. There is a small umbilical hernia which contains noninflamed mesenteric fat only. PERITONEUM: No ascites or free air. RETROPERITONEUM: No mass or adenopathy. REPRODUCTIVE: No significant abnormality. VASCULATURE: No abdominal aortic aneurysm. MUSCULOSKELETAL: No significant abnormality. OTHER: None IMPRESSION: 1. No acute pathology of the large or small bowel. The cause of this patient's bloody stool is not evident on the basis of this examination. 2. Hepatic steatosis. 3. No cholelithiasis. 4. Small umbilical hernia which contains noninflamed mesenteric fatonly. 5. 4 mm nodule within the posterior aspect of the right lower lobe. Ifthis patient is high risk, recommend CT follow-up in 12 months. Otherwise, no further follow-up is required. THIS IS AN ELECTRONICALLY VERIFIED FINAL REPORT 09/24/2019 11:28 PM - Electronically signed by Brianna Mckeon M.D. 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
--- OUTSIDE RECORDS SUMMARY | 2024-04-04 19:34 | XMS_ITS | Encounter Summary ---
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 Name Role Phone Unavailable Primary Care Provider Unavailabl e Encounter Details Date Type Department Care Team (Latest Contact Info) Description 01/29/2019 7:58 AM CDT - 01/29/2019 11:59 PM CDT Hospital Encounter [facility] Discharge Disposition: Discharge to home or self care Social History Tobacco Use Types Packs/Day Years Used Date Smoking Tobacco: Never Assessed Sex and Gender Information Value Date Recorded Sex Assigned at Not on file Legal Sex Male 7:25 PM [employer] Gender Identity Not on file Sexual Orientation Not on file documented as of this encounter Discharge Disposition Disposition Code Departure Means Destination Discharge to home or self care documented in this encounter Plan of Treatment Not on file documented as of this encounter Visit Diagnoses Not on filedocumented in this encounter
--- OUTSIDE RECORDS SUMMARY | 2024-04-04 19:35 | XMS_ITS | Data Portability ---
Author Organization [facility] JEFFMelinda Address [address] [place] [address] Care Team Providers Care Schedule Clerk Name Role Phone ARELY YOUNG Primary Care Provider Assessment No assessment recorded. Plan of Treatment Reminders Order Date Submit Date Provider Last Modified By Organization Details Last Modified Time Details Appointments Hospit al Follow -Up 20 2024 10:15A M ARELY YOUNG MD Not available Not available Not available Lab CBC 2021 [facility], [address], [place], [address], 11/08/2021 16:44:08 BMP, serum or plasma 2021 [facility], [address] [facility], [address], [place], [address], 11/08/2021 17:21:52 albumi n/crea tinine , mass ratio, urine 2021 [facility], [address], [address], [place], [address], 10/27/2021 18:26:59 TSH, ultra- sensit veronica, serum 2021 022 [facility], [address], [place], [address], 10/27/2021 18:26:59 HbA1c (hemog lobin A1c), blood 2021 022 edahm In-Office Order, Internal Use Only DO Not Attach Compendium DO Not Attach Compendium, Do Not Delete/merge, [id number] 10/27/2021 18:26:49 albumi n/crea tinine , mass ratio, urine 2022 023 [facility], [address] [place] [address], [address], [place], [address], 11/13/2022 17:11:59 BMP, serum or plasma 2022 023 [facility], [address] [place] [address], [address], [place], [address], 12/07/2022 00:07:28 HbA1c (hemog lobin A1c), blood 2022 023 edahm In-Office Order, Internal Use Only DO Not Attach Compendium DO Not Attach Compendium, Do Not Delete/merge, [id number] 11/13/2022 17:11:49 H pylori Ag, qual immuno assay, stool 2022 023 [facility], [address] [place] [address], [address], [place], [address], 12/06/2022 11:11:31 HbA1c (hemog lobin A1c), blood 2023 024 [email or web address] In-Office Order, Internal Use Only DO Not Attach Compendium DO Not Attach Compendium, Do Not Delete/merge, [id number] 09/29/2023 22:33:33 rapid flu (A+B) 2023 024 rgriffon In-Office Order, Internal Use Only DO Not Attach Compendium DO Not Attach Compendium, Do Not Delete/merge, [id number] 03/18/2024 11:33:14 rapid SARS CoV 2 Ag, QL IA, respir atory specim en 2023 024 jose ramon In-Office Order, Internal Use Only DO Not Attach Compendium DO Not Attach Compendium, Do Not Delete/merge, [id number] 03/18/2024 11:33:13 Referral bariat giacomo surger y referr al 2021 022 [facility], [address] [facility], [address], [place], [address], 11/14/2021 13:09:59 otolar yngolo gist referr al [address] [facility]erral [facility], [facility] [place], [address], 10/21/2022 22:47:51 pulmon ologis t referr al 2021 022 [facility] Bojorquez [facility], [address] [facility], [address], [place], [address], 11/29/2021 17:01:18 diabet ic ophtha lmolog y referr al 2021 022 [facility], [address] [facility], [address], [place], [address], 09/10/2023 14:40:34 gastro entero logist referr al 2022 023 CHELSIE Matt MD, [address], [address], [place], [address], 01/08/2023 15:17:26 Procedures None record ed. Surgeries None record ed. Imaging NM, hepato biliar y scan 2023 024 deepthi Li Scheduling, [address], [place], [address], 01/27/2024 12:08:22 Medication Orders lisino pril 10 mg tablet 2021 022 [id number], [address], [place], [id number], 11/13/2022 17:02:01 amlodi pine 5 mg tablet 2021 022 mmetias [facility] #99055, [address], [place], [id number], 09/27/2023 10:16:58 metfor min 1,000 mg tablet 2021 022 [facility] #32127, [address], [place], [id number], 12/03/2023 11:05:45 atorva statin 40 mg tablet 2021 022 [facility], [address], [place], [id number], 09/27/2023 09:11:00 amlodi pine 5 mg tablet 2022 024 [facility] #2713, [address], [place], [address], 09/27/2023 10:17:23 metfor min 1,000 mg tablet 2022 023 [facility] #2713, [address], [place], [address], 12/03/2023 11:05:45 atorva statin 40 mg tablet 2022 024 [facility]/Pharmacy #2713, [address], [place], [address], 09/27/2023 09:11:06 ondans etron HCl 4 mg tablet 2022 024 [facility]/Ph[facility]acy #2713, [address], [address], 09/27/2023 09:12:15 amlodi pine 10 mg tablet 2023 024 [facility] [address], [address], 09/27/2023 14:22:14 Zofran 4 mg tablet 2023 024 [facility] [address], [address], 03/18/2024 11:56:39 benzon atate 200 mg capsul e 2023 024 [facility] [address], [address], 03/18/2024 11:33:12 albute rol sulfat e HFA 90 mcg/ac tuatio n aeroso l inhale r 2023 024 [facility] [address], [address], 03/18/2024 11:33:12 Patient TargetsNo targets recorded. Patient Instructions Encounter Date Encounter Id Patient Instructions Last Modified By Organization Details Last Modified Time 10/27/2021 [id number] A healthy lifestyle: care instructions [email or web address] Not available 10/27/2021 18:26:48 11/13/2022 [id number] A healthy lifestyle: care instructions edahm Not available 11/18/2022 23:21:54 A family frances e attending was present and available in the clinic during the time of the appointment to discuss the case/management with the resident. Resident discussed case with Dr. Shweta Mckeon D.O. at the time of the appointment. I agree with the resident's assessment and plan as documented. Will sign off on note to facilitate chart completion. Ordering provider / resident who rendered care to follow up on all orders/labs/radiol ogy studies/referrals. [email or web address] Not available 12/14/2022 13:30:48 12/06/2022 [id number] A healthy lifestyle: care instructions edahm Not available 12/09/2022 23:04:01 On the date of this encounter, I was available to assist the resident in the care of the patient, and have reviewed and agree with the resident? s findings and plan of care. ---MARIAELENA [email or web address] Not available 12/15/2022 11:00:02 09/27/2023 [id number] A healthy lifestyle: care instructions [email or web address] Not available 09/27/2023 09:25:51 Attending Physician Attestation I did not personally see or examine the patient with the resident. I was physically present to provide indirect supervision through entire encounter. I have reviewed the documentation and agree with the history, physical findings, work-up, and medical decision making as recorded. Dung Gold MD [email or web address] Not available 09/27/2023 10:18:18 03/18/2024 [id number] Attending Physician Attestation I did not personally see or examine the patient with the resident. I was physically present to provide indirect supervision through entire encounter. I have reviewed the documentation and agree with the history, physical findings, work-up, and medical decision making as recorded. 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 O bstructive sleep apnea syndrome Referring Physician: Starla Parham Data Management Specialist, Encounter Date: 10/27/2021 Bariatric Surgery Referral f or Obesity Referring Physician: Starla Parham Data Management Specialist, Encounter Date: 10/27/2021 Diabetic Ophthalmology Refer ral for Diabetes mellitus Referring Physician: Starla Parham Data Management Specialist, Encounter Date: 10/27/2021 Vp Marketing Referral fo r Perforation of tympanic membrane Referring Physician: Starla Parham Data Management Specialist, Encounter Date: 10/27/2021 Milk Receiver Referral for Nausea Referring Physician: Starla Parham Data Management Specialist, Encounter Date: 12/06/2022 Results Created Date Observation Date Name Description Value Unit Range Abnormal Flag Note LastModifiedBy Organization Detail LastModifiedTime 10/11/19 22 10/10/2021 CORON AVIRU S AND INFLU ANA A/B ANTIG EN coronavirus antigen ia NEGATI VE neg normal NEGAT VERONICA RESUL TS SHOUL D BE TREAT ED PRESU MPTIV E AND CONFI RMED WITH A MOLEC ULAR ASSAY IF NECES KORI FOR PATIE NT MANAG EMENT . NEGAT VERONICA RESUL TS DO NOT RULE OUT COVID 19 AND SHOUL D NOT BE USED THE SOLE BASIS FOR TREAT MENT OR PATIE NT MANAG EMENT DECIS IONS, INCLU DING INFEC TION CONTR OL DECIS IONS. NEGAT VERONICA RESUL TS SHOUL D BE CONSI DERED IN THE RALPH XT OF A PATIE NT'S RECEN T EXPOS URES, HISTO RY AND THE PRESE NCE OF CLINI ISABEL SIGNS AND SYMPT OMS CONSI STENT WITH COVID 19. THIS TEST HAS BEEN AUTHO RIZED BY THE FDA UNDER AN EMERG ENCY USE AUTHO RIZAT ION (EUA) FOR USE BY AUTHO RIZED LABOR ATORI ES. Not Available [facility] (Lab) [address] [place], [address], 10/10/2021 21:43:50 10/11/19 22 10/10/2021 CORON AVIRU S AND INFLU ANA A/B ANTIG EN influenza A Ag NEGATI VE neg normal Not Available [facility] (Lab) [facility]? [place], [address], 10/10/2021 21:43:50 10/11/19 22 10/10/2021 CORON AVIRU S AND INFLU ANA A/B ANTIG EN influenza B Ag NEGATI VE neg normal Inter preta tion: Negat veronica for Influ ana A and B. A negat veronica resul t does not exclu de influ ana virus infec tion. If influ ana is circu latin g in your commu nity, a diagn osis of influ ana shoul d be consi dered based on a patie nt's clini isabel prese ntati on and empir ic antiv iral treat ment shoul d be consi dered , if indic ated. If more concl usive testshima [place] is neede d for hospi taliz ed inpat ients , follo w-up confi rmato ry testi ng with RT-PC R requi res a separ ate order . Not Available [facility] (Lab) [facility] [place]? [place], [address], 10/10/2021 21:43:50 10/11/19 22 10/10/2021 CORON AVIRU S AND INFLU ANA A/B ANTIG EN specimen type NASAL Not Available [facility] (Lab) [facility] [place]? [place], [address], 10/10/2021 21:43:50 10/11/19 22 10/10/2021 CORON AVIRU S AND INFLU ANA A/B ANTIG EN first test? NO Not Available [facility] (Lab) [facility] [place]? [place], [address], 10/10/2021 21:43:50 10/11/19 22 10/10/2021 CORON AVIRU S AND INFLU ANA A/B ANTIG EN employed in healthcare? NO Not Available [facility] (Lab) [facility] [place]? [place], [address], 10/10/2021 21:43:50 10/11/19 22 10/10/2021 CORON AVIRU S AND INFLU ANA A/B ANTIG EN symp defined by cdc? YES Not Available [facility] (Lab) [facility] [place]? [place], [address], 10/10/2021 21:43:50 10/11/19 22 10/10/2021 CORON AVIRU S AND INFLU ANA A/B ANTIG EN date of symptom onset 13 Not Available [facility] (Lab) [facility]? [place], [address], 10/10/2021 21:43:50 10/11/19 22 10/10/2021 CORON AVIRU S AND INFLU ANA A/B ANTIG EN hospitalized ? NO Not Available [facility] (Lab) [facility] [place]? [place], [address], 10/10/2021 21:43:50 10/11/19 22 10/10/2021 CORON AVIRU S AND INFLU ANA A/B ANTIG EN res congregate care? NO Not Available [facility] (Lab) [facility] [place]? [place], [address], 10/10/2021 21:43:50 10/28/19 22 10/27/2021 HbA1c (hemo globi n A1c), blood HbA1c 5.6 Not Available In-Office Order Internal Use Only DO Not Attach Compendium DO Not Attach Compendium, Do Not Delete/merge, [id number] 10/27/2021 17:55:25 11/09/19 22 11/08/2021 HEMAG RAVINDER WBC 7.7 x10'3 /uL 4.5-11 .0 Not Available [facility] (Lab) [facility] [place] [place], [address], 11/08/2021 16:44:08 11/09/19 22 11/08/2021 HEMAG RAVINDER RBC 4.99 x10'6 /uL 4.70-6 .10 Not Available [facility] (Lab) [facility] [place], [address], 11/08/2021 16:44:08 11/09/19 22 11/08/2021 HEMAG RAVINDER hemoglobin 14.8 g/dL 14.0-1 8.0 Not Available [facility] (Lab) [facility] [place]? [place], [address], 11/08/2021 16:44:08 11/09/19 22 11/08/2021 HEMAG RAVINDER hematocrit 44.5 % 43.0-5 4.0 Not Available [facility] (Lab) [facility] [place]? [place], [address], 11/08/2021 16:44:08 11/09/19 22 11/08/2021 HEMAG RAVINDER MCV 89.2 fL 80.0-9 4.0 Not Available [facility] (Lab) [facility] [place]? [place], [address], 11/08/2021 16:44:08 11/09/19 22 11/08/2021 HEMAG RAVINDER MCH 29.7 pg 27.0-3 1.0 Not Available [facility] (Lab) [facility] [place]? [place], [address], 11/08/2021 16:44:08 11/09/19 22 11/08/2021 HEMAG RAVINDER MCHC 33.3 g/dL 32.0-3 6.0 Not Available [facility] (Lab) [facility] [place]? [place], [address], 11/08/2021 16:44:08 11/09/19 22 11/08/2021 HEMAG RAVINDER RDW 12.4 % 11.5-1 4.5 Not Available [facility] (Lab) [facility] [place]? [place], [address], 11/08/2021 16:44:08 11/09/19 22 11/08/2021 HEMAG RAVINDER platelet count 290 x10'3 /uL 130-40 0 Not Available [facility] (Lab) [facility] [place]? [place], [address], 11/08/2021 16:44:08 11/09/19 22 11/08/2021 HEMAG RAVINDER MPV 9.8 fL 9.3-12 .2 Not Available [facility] (Lab) [facility] [place]? [place], [address], 11/08/2021 16:44:08 11/09/19 22 11/08/2021 BASIC METAB OLIC PANEL glucose 90 mg/dL 70-[address] [facility] (Lab) [facility] [place]? [place], [address], 11/08/2021 17:21:51 11/09/19 22 11/08/2021 BASIC METAB OLIC PANEL BUN 8 mg/dL 7-[address] [facility] (Lab) [facility] [place]? [place], [address], 11/08/2021 17:21:51 11/09/19 22 11/08/2021 BASIC METAB OLIC PANEL creatinine 0.93 mg/dL 0.7-1. 3 Not Available [facility] (Lab) [facility] [place], [address], 11/08/2021 17:21:51 11/09/19 22 11/08/2021 BASIC METAB OLIC PANEL sodium 138 mmol/ L 136-14 5 Not Available [facility] (Lab) [facility] [place]? [place], [address], 11/08/2021 17:21:51 11/09/19 22 11/08/2021 BASIC METAB OLIC PANEL potassium 3.8 mmol/ L 3.5-5. 1 Not Available [facility] (Lab) [facility] [place], [address], 11/08/2021 17:21:51 11/09/19 22 11/08/2021 BASIC METAB OLIC PANEL chloride 107 mmol/ L 100-10 8 Not Available [facility] (Lab) [facility] [place], [address], 11/08/2021 17:21:51 11/09/19 22 11/08/2021 BASIC METAB OLIC PANEL total CO2 27.1 mmol/ L 21-32 Not Available [facility] (Lab) [facility] [place]? [place], [address], 11/08/2021 17:21:51 11/09/19 22 11/08/2021 BASIC METAB OLIC PANEL calcium 9.7 mg/dL 8.5-10 .1 Not Available [facility] (Lab) [facility] [place], [address], 11/08/2021 17:21:51 11/09/19 22 11/08/2021 BASIC METAB OLIC PANEL anion gap 3.9 mmol/ L 5-15 low Not Available [facility] (Lab) [facility] [place], [address], 11/08/2021 17:21:51 11/09/19 22 11/08/2021 BASIC METAB OLIC PANEL BUN creatinine ratio 8.6 6-26 Not Available [facility] (Lab) [facility] [place]? [place], [address], 11/08/2021 17:21:51 11/09/19 22 11/08/2021 BASIC METAB OLIC PANEL est GFR >90 mL/mi n/1.7 3_M2 >90 NOTE: eGFR is not calcu lated for patie nts <18 years of age. This is an estim ated GFR calcu latio n using the new CKD EPI creat inine equat ion witho ut race and so does not requi re a corre ction facto r for race. This estim ated GFR shoul d not be used for calcu latin g drug doses . Not Available [facility] (Lab) [facility] [place]? [place], [address], 11/08/2021 17:21:51 11/09/19 22 11/08/2021 TSH ULTRA SEN RFLX TSH ultrasen rflx 2.860 uIU/m L 0.358- 3.74 HIGH DOSES OF BIOTI N MAY INTER FERE WITH THIS TEST RESUL T. CORRE LATIO N TO CLINI ISABEL HISTO RY AND PRESE NTATI ON RECOM ISELA D. FREE T4 NOT INDIC ATED Not Available [facility] (Lab) [facility] [place]? [place], [address], 11/08/2021 17:21:54 11/09/19 22 11/08/2021 MICRO ALB/C REAT RATIO creatinine, urine 194.0 mg/dL 39-259 Not Available [facility] (Lab) [facility] [place]? [place], [address], 11/08/2021 17:44:54 11/09/19 22 11/08/2021 MICRO ALB/C REAT RATIO microalbumin , urine 1.9 mg/dL <2.0 Not Available [facility] (Lab) [facility] [place]? [place], [address], 11/08/2021 17:44:54 11/09/19 22 11/08/2021 MICRO ALB/C REAT RATIO malb/creat ratio 9.6 mg/g <30 Not Available [facility] (Lab) [facility]? [place], [address], 11/08/2021 17:44:54 06/07/19 23 06/06/2022 POC GLUCO SE POC glucose 88 mg/dL 70-99 Not Available [facility] (Lab) [facility]? [place], [address], 06/06/2022 17:28:33 06/07/19 23 06/06/2022 CORON AVIRU S AND INFLU NAA A/B ANTIG EN coronavirus antigen ia POSITI VE neg abnormal THIS TEST HAS BEEN AUTHO RIZED BY THE FDA UNDER AN EMERG ENCY USE AUTHO RIZAT ION (EUA) FOR USE BY AUTHO RIZED LABOR ATORI ES. Not Available [facility] (Lab) [facility]? [place], [address], 06/06/2022 22:11:20 06/07/19 23 06/06/2022 CORON AVIRU S AND INFLU ANA A/B ANTIG EN influenza A Ag NEGATI VE neg normal Not Available [facility] (Lab) [facility]? [place], [address], 06/06/2022 22:11:20 06/07/19 23 06/06/2022 CORON AVIRU S AND INFLU ANA A/B ANTIG EN influenza B Ag NEGATI VE neg normal Inter preta tion: Negat veronica for Influ ana A and B. A negat veronica resul t does not exclu de influ ana virus infec tion. If influ ana is circu latin g in your commu nity, a diagn osis of influ ana shoul d be consi dered based on a patie nt's clini isabel prese ntati on and empir ic antiv iral treat ment shoul d be consi dered , if indic ated. If more concl usive testshima [place] is neede d for hospi taliz ed inpat ients , follo w-up confi rmato ry testi ng with RT-PC R requi res a separ ate order . Not Available [facility] (Lab) [facility] [place]? [place], [address], 06/06/2022 22:11:20 06/07/19 23 06/06/2022 CORON AVIRU S AND INFLU ANA A/B ANTIG EN specimen type NASAL Not Available [facility] (Lab) [facility] [place]? [place], [address], 06/06/2022 22:11:20 06/07/19 23 06/06/2022 CORON AVIRU S AND INFLU ANA A/B ANTIG EN first test? NO Not Available [facility] (Lab) [facility] [place]? [place], [address], 06/06/2022 22:11:20 06/07/19 23 06/06/2022 CORON AVIRU S AND INFLU ANA A/B ANTIG EN employed in healthcare? NO Not Available [facility] (Lab) [facility] [place]? [place], [address], 06/06/2022 22:11:20 06/07/19 23 06/06/2022 CORON AVIRU S AND INFLU ANA A/B ANTIG EN symp defined by cdc? YES Not Available [facility] (Lab) [facility] [place]? [place], [address], 06/06/2022 22:11:20 06/07/19 23 06/06/2022 CORON AVIRU S AND INFLU ANA A/B ANTIG EN date of symptom onset Not Available [facility] (Lab) [facility] [place]? [place], [address], 06/06/2022 22:11:20 06/07/19 23 06/06/2022 CORON AVIRU S AND INFLU ANA A/B ANTIG EN hospitalized ? NO Not Available [facility] (Lab) [facility], [address], 06/06/2022 22:11:20 06/07/19 23 06/06/2022 CORON AVIRU S AND INFLU ANA A/B ANTIG EN res congregate care? NO Not Available [facility] (Lab) [facility] [place]? [place], [address], 06/06/2022 22:11:20 06/07/19 23 06/06/2022 CORON AVIRU S AND INFLU ANA A/B ANTIG EN coronavirus antigen ia POSITI VE neg abnormal THIS TEST HAS BEEN AUTHO RIZED BY THE FDA UNDER AN EMERG ENCY USE AUTHO RIZAT ION (EUA) FOR USE BY AUTHO RIZED LABOR ATORI ES. Succe ssful Call: [phone] noemy regalado 06/06 09:11 PM to NEVA BARFIELD NP [phone]/R OSE, [place]YLE[place] E) [place] [phone] 4. Not Available [facility] (Lab) [facility]? [place], [address], 06/06/2022 22:11:33 06/07/19 23 06/06/2022 CORON AVIRU S AND INFLU ANA A/B ANTIG EN influenza A Ag NEGATI VE neg normal Not Available [facility] (Lab) [facility]? [place], [address], 06/06/2022 22:11:33 06/07/19 23 06/06/2022 CORON AVIRU S AND INFLU ANA A/B ANTIG EN influenza B Ag NEGATI VE neg normal Inter preta tion: Negat veronica for Influ ana A and B. A negat veronica resul t does not exclu de influ ana virus infec tion. If influ ana is circu latin g in your commu nity, a diagn osis of influ ana shoul d be consi dered based on a patie nt's clini isabel prese ntati on and empir ic antiv iral treat ment shoul d be consi dered , if indic ated. If more concl usive testi ng is neede d for hospi taliz ed inpat ients , follo w-up confi rmato ry testi ng with RT-PC R requi res a separ ate order . Not Available [facility] (Lab) [facility], [address], 06/06/2022 22:11:33 06/07/19 23 06/06/2022 CORON AVIRU S AND INFLU ANA A/B ANTIG EN specimen type NASAL Not Available [facility] ([facility]) [facility]? [place], [address], 06/06/2022 22:11:33 06/07/19 23 06/06/2022 CORON AVIRU S AND INFLU ANA A/B ANTIG EN first test? NO Not Available [facility] ([facility]) [facility]? [place], [address], 06/06/2022 22:11:33 06/07/19 23 06/06/2022 CORON AVIRU S AND INFLU ANA A/B ANTIG EN employed in healthcare? NO Not Available [facility] (Lab) [facility]? [place], [address], 06/06/2022 22:11:33 06/07/19 23 06/06/2022 CORON AVIRU S AND INFLU ANA A/B ANTIG EN symp defined by cdc? YES Not Available [facility] (Lab) [facility] [place]? [place], [address], 06/06/2022 22:11:33 06/07/19 23 06/06/2022 CORON AVIRU S AND INFLU ANA A/B ANTIG EN date of symptom onset 07 Not Available [facility] (Lab) [facility]? [place], [address], 06/06/2022 22:11:33 06/07/19 23 06/06/2022 CORON AVIRU S AND INFLU ANA A/B ANTIG EN hospitalized ? NO Not Available [facility] (Lab) [facility] [place]? [place], [address], 06/06/2022 22:11:33 06/07/19 23 06/06/2022 CORON AVIRU S AND INFLU ANA A/B ANTIG EN res congregate care? NO Not Available [facility] (Lab) [facility]? [place], [address], 06/06/2022 22:11:33 06/07/19 23 06/06/2022 RAPID STREP A SCREE N specimen type THROAT Not Available [facility] (Lab) [facility] [place]? [place], [address], 06/07/2022 09:53:16 06/07/19 23 06/07/2022 RAPID STREP A SCREE N rapid strep A NEGATI VE neg Not Available [facility] (Lab) [address] [place], [address], 06/07/2022 09:53:16 11/14/1911/13/2022 HbA1c (hemo globi n A1c), blood HbA1c 5.9 Not Available In-Office Order Internal Use Only DO Not Attach Compendium DO Not Attach Compendium, Do Not Delete/merge, [id number] 11/13/2022 16:48:58 12/07/1912/06/2022 BASIC METAB OLIC PANEL (8) glucose 98 mg/dL 70-99 Not Available [facility] Department [address] [place] [address], [address], 12/07/2022 00:07:28 12/07/19 23 12/06/2022 BASIC METAB OLIC PANEL (8) BUN 10 mg/dL 6-20 Not Available [facility] [address] [place], [address], 12/07/2022 00:07:28 12/07/19 23 12/06/2022 BASIC METAB OLIC PANEL (8) creatinine 0.69 mg/dL 0.76-1 .27 below low normal Not Available [facility] [address] [place], [address], 12/07/2022 00:07:28 12/07/19 23 12/06/2022 BASIC METAB OLIC PANEL (8) eGFR 124 >=60 Units for eGFR value s are mL/mi n/1.7 3 The eGFR Calcu latio n has not been valid ated for patie nts under the age of 18. If test resul ts are displ ayed for a patie nt under the age of 18, disre maite that value . Not Available [facility] Department [address] [place], [address], 12/07/2022 00:07:28 12/07/19 23 12/06/2022 BASIC METAB OLIC PANEL (8) BUN/creatini ne ratio 14 9-20 Not Available [facility] Department [address] [place], [address], 12/07/2022 00:07:28 12/07/19 23 12/06/2022 BASIC METAB OLIC PANEL (8) sodium 136 mmol/ L 134-14 4 Not Available [facility] Department [address] [place], [address], 12/07/2022 00:07:28 12/07/19 23 12/06/2022 BASIC METAB OLIC PANEL (8) potassium 4.0 mmol/ L 3.5-5. 2 Not Available [facility] Department [address] [place], [address], 12/07/2022 00:07:28 12/07/19 23 12/06/2022 BASIC METAB OLIC PANEL (8) chloride 101 mmol/ L 96-106 Not Available [facility] Department [address] [place], [address], 12/07/2022 00:07:28 12/07/19 23 12/06/2022 BASIC METAB OLIC PANEL (8) carbon dioxide, total 25 mmol/ L 20-29 Not Available [facility] Department [address] [place], [address], 12/07/2022 00:07:28 12/07/19 23 12/06/2022 BASIC METAB OLIC PANEL (8) calcium 9.6 mg/dL 8.7-10 .2 Not Available [facility] Department [address] [place], [address], 12/07/2022 00:07:28 09/27/19 24 09/27/2023 HbA1c (hemo globi n A1c), blood HbA1c 6.0 Not Available In-Office Order Internal Use Only DO Not Attach Compendium DO Not Attach Compendium, Do Not Delete/merge, [id number] 09/27/2023 10:01:48 03/18/20 24 03/18/2024 rapid SARS CoV 2 Ag, QL IA, respi rator y speci men rapid SARS CoV 2 Ag, QL IA, respiratory specimen negati ve Not Available In-Office Order Internal Use Only DO Not Attach Compendium DO Not Attach Compendium, Do Not Delete/merge, [id number] 03/18/2024 10:54:17 03/18/20 24 03/18/2024 rapid flu (A+B) Flu A negati ve Not Available In-Office Order Internal Use Only DO Not Attach Compendium DO Not Attach Compendium, Do Not Delete/merge, [id number] 03/18/2024 10:54:16 03/18/20 24 03/18/2024 rapid flu (A+B) Flu B negati ve Not Available In-Office Order Internal Use Only DO Not Attach Compendium DO Not Attach Compendium, Do Not Delete/merge, [id number] 03/18/2024 10:54:16 10/11/19 22 xr chest Pa+la t [facility] ONE [facility] [place] [address] PROCED URE: XR CHEST PA+LAT . 022 6:20 PM. TECHNI QUE: 2 views (PA and Latera l) of the chest were perfor med. HISTOR Y: Cough. COMPAR MARIO: AP chest radiog raph, 020. FINDIN GS: Suppor t Device s: None. Cardia c Silhou ette/M ediast inum/H yumiko: The cardia c, medias tinal, and hilar contou rs are within normal limits for age. Lungs/ Pleura l Spaces : Mild perihi lar bronch ial wall thicke char. No focal consol idatio ns presen t. The pleura l spaces are clear. Chest Wall/D iaphra gm/Upp er Abdome n: The thorac ic muscul oskele giuseppe struct ures and the upper abdome n are within normal limits for age. IMPRES SALEEM: 1. Mild perihi lar bronch ial wall thicke char, which can be seen in reacti ve airway diseas e or small airway infect ion/in flamma tion. 2. No focal consol idatio n or pneumo thorax . Ordere d By: FERNANDEZ SIMONS ON Electr onical ly Signed By: Amado Al MD on 6:45 PM Interp reted By: Amado Al MD, 6:44 PM [facility]? S [address], [place], [address], 10/11/2021 15:37:21 10/18/19 22 XR, chest [facility] [place] [address] Examin ation: Chest x-ray 1 view Access ion: [id number] Exam date/t aden: 1:16 PM Reason For Exam: cp, sob, cough Compar mario: October 10, 2021 Techni que: Uprigh t AP view of the chest demons trated . Findin gs: Radiog raph is underp enetra kendy. Cardia c silhou ette is within normal limits . No consol idatio ns within the lungs. No effusi ons. =====I MPRESS ION:== === No acute cardio pulmon adriana abnorm ality. ====== ====== ====== === Ordere d By: SIMA PATTERSON Electr onical ly Signed By: Giovani jeffery MD on 2:14 PM Interp reted By: Giovani jeffery MD, 2:13 PM edm [facility]? [facility], [place], [address], 10/18/2021 09:13:50 10/18/19 22 ECG 12-le ad [facility] AL [place] [address] [facility] [place] [address] [place], [place] Test Date: 10-17 Pat Name: AMABRITTANI REHMAN Depart ment: 43 Patien t ID: [id number] Room: Gender : Male Techni sabi: BW : 10-21 Reques kendy By: SIMA PATTERSON Order Number : [id number] Sparkle gonzalez MD: Eder Gan [employer] Interv als [place] Rate: 92 P: 26 NJ: 144 QRS: 38 QRSD: 84 T: 55 QT: 353 QTc: 438 Interp retive Statem ents SINUS RHYTHM Compar ed to ECG 2019 20:53: 29 No signif icant change s Prelim inary EKG interp retati on by ED Physic clair No ischem ic change s Carolee regalado, [employer] (CAD) CRITIC AL ALERT ISSUED ON 14:53: 50 Electr onical ly signed by Eder Gan at 16:41: 11 CDT edahm [facility]? [facility], [place], [address], 10/18/2021 09:13:50 10/18/19 22 ECG 12-le ad [facility] [address] [facility] [place] [address] [place], [facility] n [place] Test Date: 10-17 Pat Name: AMA LEO Depart ment: 41 Patien t ID: [id number] Room: Gender : Male Techni sabi: : 10-21 Reques kendy By: SIMA PATTERSON Order Number : [id number] Sparkle gonzalez MD: Eder Gan [employer] Interv als [place] Rate: 92 P: 26 NJ: 144 QRS: 38 QRSD: 84 T: 55 QT: 353 QTc: 438 Interp retive Statem ents SINUS RHYTHM Compar ed to ECG 2019 20:53: 29 No signif icant change s Prelim inary EKG interp retati on by ED Physic clair No ischem ic change s Carolee regalado, ERINN CRITIC AL ALERT ISSUED ON 14:53: 50 Electr onical ly signed by Eder Gan at 16:41: 11 CDT edahm [facility]? [facility] [place], [address], 10/18/2021 09:13:51 07/10/19 23 ECG 12-le ad [facility] AL ONE [facility] [place] [address] [facility] [place] [address] [facility] [address] [place], [place] Test Date: 07-09 Pat Name: AMA REHMAN Depart ment: 41 Patien t ID: [id number] Room: [facility] Gender : Male Techni sabi: [id number] : 10-21 Reques kendy By: DENIA MCCLAIN Order Number : [id number] Sparkle gonzalez MD: Eder Romo [employer] Interv als [place] Rate: 86 P: 9 NJ: 149 QRS: 31 QRSD: 83 T: 48 QT: 348 QTc: 418 Interp retive Statem ents SINUS RHYTHM Compar ed to ECG 2021 14:32: 35 No signif icant change s Electr onical ly signed by Eder Romo at 023 9:30:3 9 CDT edm [facility]? [facility], [place], [address], 07/11/2022 13:52:40 07/10/19 23 ECG 12-le ad [facility] AL ONE [facility] [place] [address] [facility] [place] [address] [facility] [place], [place] Test Date: 07-09 Pat Name: AMA REHMAN Depart ment: 41 Patien t ID: [id number] Room: [facility] Gender : Male Techni sabi: [id number] : 10-21 Reques kendy By: DENIA MCCLAIN Order Number : [id number] Sparkle gonzalez MD: Eder Romo [employer] Interv als [place] Rate: 86 P: 9 NJ: 149 QRS: 31 QRSD: 83 T: 48 QT: 348 QTc: 418 Interp retive Statem ents SINUS RHYTHM Compar ed to ECG 2021 14:32: 35 No signif icant change s Electr onical ly signed by Eder Romo at 9:30:3 9 CDT edm [facility]? [facility], [place], [address], 07/11/2022 13:52:41 07/10/19 23 XR, chest [facility] [place] [address] Examin ation: Chest Radiog raph, 1 view Access ion: [id number] Exam Date/T aden: 9:40 AM Reason For Exam: cp Chest pain Compar mario: chest radiog raph Techni que: Single AP view of the chest. Findin gs: Promin ent cardia c silhou ette within normal limits for AP techni que. No large effusi on. No pneumo thorax . Pulmon adriana vascul arity within normal notes. No convin cing infilt rate or consol idatio n. ====== == IMPRES SALEEM: ====== == 1. No convin cing acute cardio pulmon adriana findin gs within limita tions of exam ====== ====== ====== ====== ==== Ordere d By: FERNANDEZ SIMONS ON Electr onical ly Signed By: Seferino quintana MD on 10:24 AM Interp reted By: Seferino quintana MD, 10:23 AM [facility]? [facility], [place], [address], 07/11/2022 13:49:55 04/03/19 25 03/20/2024 CT, abdom en + pelvi s, w/ contr ast No observ ation record ed. [email or web address] [place], [address], 04/03/2024 09:58:53 Result Notes None recorded. 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 ARELY YOUNG MD Attn: Rosy gonzalez,[address] [place], [address], [facility] - [facility] 4 09:39:51 Obstructiv e sleep apnea syndrome 38597748 Active 2020 Denisha Uriarte null, [place] - [facility] 1 14:40:00 COVID-19 369177519 Active 2021 Cosmo Valverde null, [place] - [facility] 2 17:44:52 Hypertensi ve disorder 57949199 Active 2021 Starla Parham MD Attn: Rosy gonzalez,[address] [place], [address], [place] - [facility] 2 22:15:53 Obesity 652446761 Active 2021 Starla Parham MD Attn: Rosy gonzalez,[address] [facility], [place], [address], [place] - [facility] 2 22:16:02 Radial styloid tenosynovi tis 93206378 Active 2023 ARELY YOUNG MD Attn: Rosy gonzalez,[address] [facility], [place], [address], [facility] - SI 4 09:24:31 Tubular adenoma of colon 119536466 Active 202307/15/2023 tubular adenoma polyp in the transverse colon ARELY YOUNG MD Attn: Rosy gonzalez,[address] [facility], [place], [address], [facility] - SI 4 14:42:34 Mild intermitte nt asthma 025711568 Active 2023 ARELY YOUNG MD Attn: Rosy gonzalez,[address] [facility], [place], [address], [facility] - SI 4 10:53:38 Problem Notes None recorded. Procedures Surgical History Date Name Laterality Status Provider Name and Address Organization Details Recorded Time 07/27/19 21 Diabetic Foot Exam completed Denisha Uriarte [facility] 08/01/2020 00:33:16 11/30/19 20 Skin Tag Removal completed Cosmo Valverde [facility] 2019 16:42:21 Carpal tunnel surgery completed Vielka Millard [place] [facility] 09/27/2023 09:13:16 colonoscopy completed Vielka Millard [place] [facility] 09/27/2023 09:13:23 decompression of ulnar nerve at elbow completed ARELY YOUNG MD Attn: Accounting,[address] [facility], [place], [address], [facility] - SI 09/27/2023 09:25:13 Imaging Results Imaging Date Name Status LastModified by Organ atformerly [facility] Details LastModified Time 10/10/2021 xr chest Pa+lat [facility] [address], [address], 10/11/2021 15:37:21 10/17/2021 XR, chest [facility] S [address], [address], 10/18/2021 09:13:50 10/17/2021 ECG 12-lead completed edahm [facility]? [address], [place], [address], 10/18/2021 09:13:50 10/17/2021 ECG 12-lead completed edahm [facility]? [address], [place], [address], 10/18/2021 09:13:51 07/09/2022 ECG 12-lead completed edm [facility]? [address], [place], [address], 07/11/2022 13:52:40 07/09/2022 ECG 12-lead [facility] [address], [place], [address], 07/11/2022 13:52:41 07/09/2022 XR, chest [facility]? [address], [place], [address], 07/11/2022 13:49:55 03/20/2024 CT, abdomen + pelvis, w/ contrast completed [address] [place], [address], 04/03/2024 09:58:53 Procedure Notes None recorded. Medical Equipment None Reported. Allergies Allergen ID Allergen Name Allergen Category Reaction Reaction Severity Criticality Documentation Date Start Date Code Code System Note Provider Name and Address Organization Details Recorded Time 578053 morphine medicatio n decreased blood pressure severe Not available 11/23/2019 7052 RxNorm [facility] [place] - [facility] 0 09:48:05 373906 lisinopri l medicatio n cough Not available Not available 11/13/2022 72088 RxNorm Starla Parham MD Attn: Rosy gonzalez,[address] [facility], [place], [address], [facility] - [facility] 3 17:01:44 Medications Name Sig Start Date Stop Date Status Note LastModified by Organization Details LastModified Time atorvasta tin 40 mg tablet TAKE 1 TABLET BY MOUTH EVERY DAY 09/26 completed Not Available Not Available Not Available metformin 500 mg tablet TAKE 1 TABLET BY MOUTH TWICE A DAY LAST REFILL UNTIL APPOINTM ENT IS MADE active Not Available Not Available No t Available atorvasta tin 20 mg tablet Take 1 tablet every day by oral route. 06/07 completed Not Available Not Available Not Available loperamid e 2 mg capsule TAKE 1 CAPSULE (2 MG TOTAL) BY MOUTH 3 (THREE) TIMES A DAY FOR 7 DAYS 09/26 completed Not Available Not Available Not Available cetirizin e 10 mg tablet TAKE 1 TABLET BY MOUTH EVERY DAY 09/26 completed Not Available Not Available Not Available azithromy nancy 250 mg tablet 06/07 completed Not Available Not Available Not Available ibuprofen 800 mg tablet PLEASE SEE ATTACHED FOR DETAILED DIRECTIO NS 09/26 completed Not Available Not Available Not Available benzonata te 200 mg capsule Take 1 capsule 3 times a day by oral route. active Not Available Not Available No t Available hydrocodo ne 5 mg-acetam inophen 325 mg tablet Take 1 tablet every 6 hours by oral route. active Not Available Not Available No t Available sucralfat e 1 gram tablet TAKE 1 TABLET BY MOUTH FOUR TIMES A DAY 09/26 completed Not Available Not Available Not Available ondansetr on HCl 4 mg tablet 1 tablet q8h PRN active Not Available Not Available No t Available prednison e 20 mg tablet TAKE 2 TABLETS BY MOUTH DAILY 09/26 completed Not Available Not Available Not Available metronida zole 500 mg tablet TAKE 1 TABLET BY MOUTH 3 TIMES A DAY FOR 5 DAYS. 09/26 completed Not Available Not Available Not Available amlodipin e 5 mg tablet TAKE 1 TABLET BY MOUTH EVERY DAY.*NEE DS APPOINTM ENT 09/26 completed dose increase d Not Available Not Available Not Available omeprazol e 40 mg capsule,d elayed release 09/26 completed Not Available Not Available Not Available tramadol 50 mg tablet TAKE 1 TABLET BY MOUTH EVERY 6 HOURS NEEDED FOR PAIN active Not Available Not Available No t Available amoxicill in 500 mg tablet TAKE 1 TABLET BY MOUTH TWICE A DAY FOR 10 DAYS 09/26 completed Not Available Not Available Not Available glimepiri de 2 mg tablet 09/26 completed Not Available Not Available Not Available hydrocort isone acetate 25 mg rectal supposito ry INSERT 1 SUPPOSIT ORY INTO THE RECTUM 2 TIMES A DAY NEEDED FOR HEMORRHO IDS. active Not Available Not Available No t Available ketorolac 10 mg tablet 09/26 completed Not Available Not Available Not Available famotidin e 20 mg tablet 11/13 completed Not Available Not Available Not Available amitripty line 25 mg tablet TAKE 1 TABLET BY MOUTH EVERY NIGHT AT BEDTIME FOR 1 MONTH(30 DAYS) active Not Available Not Available No t Available metoclopr amide 5 mg tablet TAKE 1 TABLET BY MOUTH TWICE A DAY NEEDED 06/07 completed Not Available Not Available Not Available dicyclomi ne 20 mg tablet PLEASE SEE ATTACHED FOR DETAILED DIRECTIO NS active Not Available Not Available No t Available amitripty line 10 mg tablet TAKE 1 TABLET BY MOUTH EVERY NIGHT AT BEDTIME FOR 1 MONTH(30 DAYS) 09/26 completed Not Available Not Available Not Available amlodipin e 10 mg tablet TAKE 1 TABLET BY MOUTH EVERY DAY active Not Available Not Available No t Available benzonata te 100 mg capsule TAKE 1 CAPSULE BY MOUTH THREE TIMES DAILY NEEDED 09/26 completed Not Available Not Available Not Available pantopraz ole 40 mg tablet,de layed release TAKE 1 TABLET BY MOUTH EVERY DAY active Not Available Not Available No t Available metformin 1,000 mg tablet TAKE 1 TABLET BY MOUTH TWICE A DAY 12/02 completed Not Available Not Available Not Available lisinopri l 10 mg tablet TAKE 1 TABLET BY MOUTH EVERY DAY 11/13 completed Not Available Not Available Not Available gabapenti n 300 mg capsule TAKE 1 CAPSULE BY MOUTH THREE TIMES A DAY FOR 30 DAYS 09/26 completed Not Available Not Available Not Available lisinopri l 5 mg tablet Take 1 tablet every day by oral route for 90 days. 06/07 completed faxed refill request from pharm. I called pt and advised him to sched PCP f/u. He will call back. Busy now. Not Available Not Available Not Available lorazepam 1 mg tablet TAKE ONCE 30 60 MINUTES BEFORE MRI. MAY REPEAT ONCE IF UNABLE TO RELAX IN 30 MINUTES. 06/07 completed Not Available Not Available Not Available polyethyl patricia glycol 3350 17 gram/dose oral powder TAKE ONE CAPFUL OF MIRALAX THREE NIGHTS WEEKLY FOR CONSTIPA TION MANAGEME NT. active Not Available Not Available No t Available methylpre dnisolone 4 mg tablets in a dose pack TAKE 6 TABLETS ON DAY 1 DIRECTED ON PACKAGE AND DECREASE BY 1 TAB EACH DAY FOR A TOTAL OF 6 DAYS active Not Available Not Available No t Available albuterol sulfate HFA 90 mcg/actua tion aerosol inhaler Inhale 2 puffs every 4 hours by inhalati on route for 10 days. active Not Available Not Available No t Available ondansetr on 4 mg disintegr ating tablet TAKE 1 TABLET BY MOUTH EVERY 6 HOURS. active Not Available Not Available No t Available cefdinir 300 mg capsule TAKE 1 CAPSULE BY MOUTH 2 TIMES A DAY FOR 5 DAYS. 09/26 completed Not Available Not Available Not Available fluticaso ne propionat e 50 mcg/actua tion nasal spray,[facility] pension INSTIL 1 SPRAY INTO THE NOSTRIL DAILY FOR 10 DAYS 09/26 completed Not Available Not Available Not Available dicyclomi ne 10 mg capsule TAKE 1 CAPSULE BY MOUTH THREE TIMES A DAY FOR 3 MONTHS NEEDED 09/26 completed Not Available Not Available Not Available naproxen 500 mg tablet 09/26 completed Not Available Not Available Not Available amoxicill in 875 mg-potass ium clavulana te 125 mg tablet Take 1 tablet every 12 hours by oral route for 5 days. 10/04 completed Not Available Not Available Not Available insulin lispro protamine -lispro 100 unit/mL (75-25) subcutane ous pen 09/26 completed Not Available Not Available Not Available Gas Relief Extra Strength 125 mg chewable tablet TAKE 1 TABLET BY MOUTH 4 (FOUR) TIMES A DAY NEEDED (CRAMPIN G/BLOATI NG/GAS/N AUSEA) active Not Available Not Available No t Available cholecalc iferol (vitamin D3) 25 mcg (1,000 unit) tablet TAKE 1 TABLET BY MOUTH EVERY DAY active Not Available Not Available No t Available Linzess 145 mcg capsule TAKE 1 CAPSULE BY MOUTH EVERY DAY active Not Available Not Available No t Available OneTouch Ultra Blue Test Strip USE TO TEST 4 TIMES A DAY active Not Available Not Available No t Available OneTouch Ultra2 Meter active Not Available Not Available Not Available OneTouch Delica Plus Lancet 30 gauge use to test blood sugar qid as directed active Not Available Not Available No t Available Paxlovid 300 mg (150 mg x 2)-100 mg tablets in a dose pack PLEASE SEE ATTACHED FOR DETAILED DIRECTIO NS 11/13 completed Not Available Not Available Not Available Vitals Date Recorded Body height Body mass index (BMI) Body weight Body temperature Heart rate Oxygen saturation Oxygen saturation in Arterial blood by Pulse oximetry Systolic blood pressure Diastolic blood pressure Provider Name and Address Organization Details Last Updated DateTime 2 180.34 cm 44.4 kg/m2 427975. 37 g 98.4 [degF] 102 /min 97 % 97 % 151 mm[Hg] 102 mm[Hg] Paula Licona [place] [facility] 2 16:52:07 Date Recorded Body height Body mass index (BMI) Body weight Body temperature Oxygen saturation Oxygen saturation in Arterial blood by Pulse oximetry Heart rate Systolic blood pressure Diastolic blood pressure Provider Name and Address Organization Details Last Updated DateTime 3 180.34 cm 43.7 kg/m2 680119. 76 g 98.2 [degF] 99 % 99 % 97 /min 141 mm[Hg] 89 mm[Hg] Gin Molina [facility] 3 16:24:02 Date Recorded Heart rate Systolic blood pressure Diastolic blood pressure Provider Name and Address Organization Details Last Updated DateTime 11/13/2022 80 /min 137 mm[Hg] 85 mm[Hg] Starla Parham MD Attn: Accounting,[address] [place] [address], [address], [facility] 11/13/2022 17:11:22 Date Recorded Body height Body mass index (BMI) Body weight Heart rate Oxygen saturation Oxygen saturation in Arterial blood by Pulse oximetry Body temperature Systolic blood pressure Diastolic blood pressure Provider Name and Address Organization Details Last Updated DateTime 3 180.34 cm 43.3 kg/m2 477871. 03 g 86 /min 99 % 99 % 97.4 [degF] 144 mm[Hg] 95 mm[Hg] Al Burrell [facility] 3 10:38:30 Date Recorded Systolic blood pressure Diastolic blood pressure Provider Name and Address Organization Details Last Updated DateTime 12/06/2022 138 mm[Hg] 89 mm[Hg] Starla Parham MD Attn: Accounting,[address] [place], [address], [facility] 12/06/2022 11:15:26 Date Recorded Body height Body mass index (BMI) Body weight Body temperature Heart rate Respiratory rate Systolic blood pressure Diastolic blood pressure Provider Name and Address Organization Details Last Updated DateTime 4 180.34 cm 44.2 kg/m2 856081. 78 g 98.3 [degF] 86 /min 20 /min 140 mm[Hg] 80 mm[Hg] Vielka Millard [facility] 4 09:10:30 Date Recorded Body height Body mass index (BMI) Body weight Oxygen saturation Oxygen saturation in Arterial blood by Pulse oximetry Heart rate Respiratory rate Body temperature Systolic blood pressure Diastolic blood pressure Provider Name and Address Organization Details Last Updated DateTime 4 180.34 cm 45.6 kg/m2 557071. 75 g 99 % 99 % 80 /min 18 /min 99 [degF] 130 mm[Hg] 80 mm[Hg] Vielka Millard [facility] 4 10:17:17 Social History Question Answer Notes LastModified by Organizat ion Details LastModified Time Tobacco Smoking Status Never Smoker Misti Beckford [place] null, [facility] 11/23/2019 09:33:19 What Is Your Level Of Alcohol Consumption? Occasional Information not available 11/23/2019 Which Illicit Or Recreational Drugs Have You Used? None Information not available 11/23/2019 Do You Or Have You Ever Used E-cigarettes Or Vape? Never Used Electronic Cigarettes Information not available 11/23/2019 What Was The Date Of Your Most Recent Tobacco Screening? 03/18/2024 Information not available 03/18/2024 Do You Use Protection During Sex? Always Information not available 11/23/2019 Are You Sexually Active? Yes Information not available 11/23/2019 Do You Or Have You Ever Used Smokeless Tobacco? Never Used Smokeless Tobacco Information not available 11/23/2019 Do You Use Any Illicit Or Recreational Drugs? No Information not available 12/29/2020 Has Tobacco Cessation Counseling Been Provided? Yes Information not available 09/27/2023 On What Date Was Tobacco Cessation Counseling Provided? 03/18/2024 Information not available 03/18/2024 Do You Or Have You Ever Used Any Other Forms Of Tobacco Or Nicotine? No tshopema Information not available 05/30/2021 Sex: Male Functional Status None recorded. Mental Status None recorded. Family History Relationship Description Onset Age of this Age Resolved Age Notes LastModified by Organization Details LastModified Time Maternal Grandfather Malignant tumor of colon Not available 2019 09:51:14 Maternal Grandmother Malignant tumor of pancreas Not available 2019 09:51:42 Brother Malignant tumor of testis Not available 2019 09:51:59 Father Malignant tumor of lung Not available 2019 09:52:16 Medical History No medical history recorded. Immunizations Vaccine Type Date Status Note Provider Nam e and Address Organization Details Recorded Time COVID-19, mRNA, LNP-S, PF, 100 mcg/0.5mL dose or 50 mcg/0.25mL dose 1 completed ARELY YOUNG MD Attn: Accounting,[address] [place], [address], [place] [facility] 03/18/2024 10:52:27 COVID-19, mRNA, LNP-S, PF, 100 mcg/0.5mL dose or 50 mcg/0.25mL dose 1 completed ARELY YOUNG MD Attn: Accounting,[address] [place], [address], [facility] 03/18/2024 10:52:27 Influenza, split virus, quadrivalent, preservative 8 completed ARELY YOUNG MD Attn: Accounting,[address] [facility], [place], [address], [facility] 03/18/2024 10:52:27 Hep A, adult 2 completed ARELY YOUNG MD Attn: Accounting,[address] [facility], [place], [address], [facility] 03/18/2024 10:52:27 Past Encounters Encounter ID Performer Location Encounter Start Date Encounter Closed Date Diagnosis/Indication Diagnosis SNOMED-CT Code Diagnosis ICD10 Code [id number] MD Angela Mackey [address] [address] 11/23/2019 09:25:40 11/25/2019 12:28:03 Diabetes mellitus 14817776 E11.9 Acute left otitis media 896153834 H66.92 Multiple skin tags 39425 7009 L91.8 [id number] [facility] [address] [address] 11/30/2019 13:45:44 11/30/2019 19:41:28 Multiple skin tags 783998807 L91.8 [id number] [facility] [address] [address] 07/26/2020 14:14:14 08/01/2020 11:55:37 Morbid obesity 064012293 E66.01 Diabetes mellitus 448493 09 E11.9 Paresthesi a of lower extremity 233342142 R20.2 Neuropathy 050066469 G62 .9 Chronic low back pain 27 7176067 M54.5 [id number] MD Angela Mackey [address] [address] 11/11/2020 09:41:32 11/14/2020 08:56:38 Cholelithiasis without obstruction 19436369 K80.20 Overweight 661232160 E66 .3 Depressive disorder 3548 9007 F32.9 [id number] [place] [address] [address] 12/29/2020 11:31:20 12/29/2020 16:16:49 Accident while engaged in work-related activity 46978914 X58.XXXA Injury of shoulder region 131208112 S49.91XA [id number] Chelsie Jenkins MD [place] [address] [address] 03/16/2021 15:47:13 03/16/2021 20:47:20 Morbid obesity 401897802 E66.01 Diabetes mellitus 875500 09 E11.9 Neuropathy 480710878 G62 .9 Right uppe r quadrant pain 693581048 R10.11 [id number] ALLISON TAVAREZ MD [place] [address] [address] 05/30/2021 15:17:10 06/02/2021 08:07:43 Acute sinusitis 29428977 J01.90 Acute bronchitis 6225199 2 J20.9 Nausea and vomiting 1693 1999 R11.2 [id number] Aimee rodarte MD [place] [address] [address] 08/07/2021 08:29:38 08/08/2021 11:23:03 COVID-19 504145696 U07.1 [id number] López sommers MD [place] [address] [address] 08/10/2021 13:31:42 08/11/2021 13:37:13 COVID-19 210044483 U07.1 [id number] SATNAM CLARK DO [place] [address] [address] 10/27/2021 16:41:35 10/30/2021 13:54:49 Diabetes mellitus 15199876 E11.9 Hypertensive disorder 38 986636 I10 Obstructiv e sleep apnea syndrome 80874612 G47.33 Obesity 675993849 E66.9 Inattention 30413757 R41 .840 Perforatio n of tympanic membrane 13107370 H72.02 [id number] Jonnathan Anna MD [facility] 47 3 [facility] [address] [place] [address] 11/13/2022 15:46:36 11/19/2022 15:52:55 Diabetes mellitus 29836421 E11.9 Hypertensive disorder 38 927070 I10 Hyperlipidemia 06168918 E78.5 Morbid obesity 567864304 E66.01 Depressive disorder 3548 9007 F32.A [id number] KATHRINE CROWLEY DO [facility] 47 3 [facility] [address] [place] [address] 12/06/2022 10:14:20 12/10/2022 14:09:24 Nausea 326700627 R11.0 Tenosynovi tis of left radial styloid 5212259255 3255428 M65.4 Morbid obesity 190657540 E66.01 [id number] MD Fly BUNHC [address] IM [address] [facility] [place] [address] 09/27/2023 08:54:48 10/08/2023 12:43:10 Morbid obesity 227439674 E66.01 Pain of ear 200374564 H9 2.09 Gastroesop hageal reflux disease without esophagitis 985345680 K21.9 Type 2 reji betes mellitus 41295115 E11.9 Essential hypertension 64201863 I10 Lateral ep icondylitis of right humerus 1656734159 99320 M77.11 [id number] MD Fly BUNCH 14 IM [address] [facility] [place] [address] 03/18/2024 10:04:46 03/27/2024 11:36:21 Mild intermittent asthma 101747280 J45.20 Upper resp iratory infection 62914208 J06.9 Health Concerns Section Related Observation LastModified by Organization Detai ls LastModified Time None Recorded Concern Status LastModified by Organization Details LastModified Time None Recorded Advance Directives Directive None Recorded Payers Encounter Date Sequence Insurance Name Policy Number Policy Contreras Covered Member ID Contreras Member ID Guarantor Name 10/27/2021 2 [facility] (MEDICAID HMO) [id number] Ama Rehman [id number] Ama Rehman 11/13/2022 2 [facility] (MEDICAID HMO) [id number] Ama Rehman [id number] Ama Rehman 11/13/2022 1 [place] [id number] Ama Rehman [id number] Ama Rehman 12/06/2022 2 [facility] (MEDICAID HMO) [id number] Ama Rehman [id number] Ama Rehman 12/06/2022 1 [place] [id number] 1 Ama Rehman [id number] Ama Rehman 09/27/2023 1 [place] [id number] 1 Ama Rehman [id number] Ama Rehman 03/18/2024 1 [place] [id number] 1 Ama Rehman [id number] Ama Rehman Notes Date Note Type Note Provider Name and Address Organization Details Recorded Time 10/27/2021 text/html Pt here for DM2 f/u. Is worried he might have ADHD due to inattention and forgetting things easily. Has been having a fullness sensation in left ear. Also complains of fatigue and lack of energy, and he has been diagnosed with STACIE in the past but never got a CPAP due to loss of insurance. Pt denies CP/SOB, F/C, LEACH/dizziness, n/v/d/c, abdominal pain, dysuria, leg pain or swelling. RUSLAN CLARK DO Attn: Accounting,[address] [facility], [place], [address], [facility] 10/30/2021 09:37:55 11/13/2022 text/html Pt presents for HTN and DM2 f/u. States he has been out of his medications for a couple days. IS expecting his first child within the next week. States he feels down sometimes, and denies HI/SI. Feels that he is in a rough patch and does not want to pursue depression treatment at this time. Pt denies CP/SOB, F/C, LEACH/dizziness, n/v/d/c, abdominal pain, dysuria, leg pain or swelling. Jonnathan Anna MD Attn: Accounting,[address] [place], [address], [facility] 12/14/2022 13:30:52 12/06/2022 text/html Pt presents as U C f/u for left wrist pain. Was seen in and prescribed prednisone, ibuprofen, and gabapentin. States the pain came on gradually without injury or trauma to wrist. Pt denies CP/SOB, F/C, LEACH/dizziness, abdominal pain, dysuria, leg pain or swelling. KAHTRINE CROWLEY DO Attn: Accounting,[address] [facility], [place], [address], [facility] 12/15/2022 11:00:05 09/27/2023 text/html Ama is a 37-year-old male who presents to the clinic to establish care. Was previously seen in [place] by PCP and GI. 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 Left ear has been causing pain for the last approx 2 weeks. No drainage. No fever, chills, some nasal congestion. No cough. T2DMIs compliant with medications. No hx of kidney problems, neuropathy. HTNIs compliant with medications. Does not take BP at home. No chest pain or SOB. Tennis elbowHas been seeing occupational therapy following right ulnar and medial nerve decompression who have been giving exercises for arm as well. Plastics gave injection 08/2023 but stated they do not treat this and recommended referral to orthopedic surgery. De Quervain'sReports pain on the left wrist. Is seeing plastic surgery. Planning surgery. Is wearing splint daily. DUNG GOLD MD Attn: Accounting,[address] [facility], [place], [address], [facility] 10/07/2023 09:48:54 03/18/2024 text/html Ama is a 38 y /o M who presents for sick visit. Has been having dry cough, diarrhea, fatigue started 4 days ago.Is having 5 episodes of loose stool.Has been trying to stay hydrated but feels nauseous. No emesis.+ sore throat. No fever or chills. No rhinorrhea.Two kids and are sick were sick but recovered after a couple of days.Has tried OTC cough and congestion medication. DUNG GOLD MD Attn: Accounting,[address] [place], [address], [facility] 03/26/2024 22:11:39
--- OUTSIDE RECORDS SUMMARY | 2024-04-04 19:35 | XMS_ITS | Continuity of Care Document ---
Author Organization [facility] 14 IM Address 4 [facility] [address] [place] [address] Care Team Providers Care Audio Visual Project Manager Name Role Phone ARELY YOUNG Primary Care Provider [phone] Assessment No assessment recorded. Plan of Treatment Reminders Order Date Submit Date Provider Last Modified By Organization Details Last Modified Time Details Appointments Hospital Follow-Up 2024 10:15A M ARELY YOUNG MD Not available Not available Not available Lab rapid flu (A+B) 2023 024 [email or web address] In-Office Order, Internal Use Only DO Not Attach Compendium DO Not Attach Compendium, Do Not Delete/merge, [id number] 03/18/2024 11:33:14 rapid SARS CoV 2 Ag, QL IA, respirato ry specimen 2023 024 rgriffon In-Office Order, Internal Use Only DO Not Attach Compendium DO Not Attach Compendium, Do Not Delete/merge, [id number] 03/18/2024 11:33:13 Referral None recorded. Procedures None recorded. Surgeries None recorded. Imaging None recorded. Medication Orders Zofran 4 mg tablet 2023 024 [facility] [address], [address], 03/18/2024 11:56:39 benzonata te 200 mg capsule 2023 024 [facility] [address], [address], 03/18/2024 11:33:12 albuterol sulfate HFA 90 mcg/actua tion aerosol inhaler 2023 024 jose ramon [facility] [address] In [place] [address] [place], [address], 03/18/2024 11:33:12 Patient TargetsNo targets recorded. Patient Instructions Encounter Date Encounter Id Patient Instructions Last Modified By Organization Details Last Modified Time 03/18/2024 [id number] Attending Physician Attestation I did not personally see or examine the patient with the resident. I was physically present to provide indirect supervision through entire encounter. I have reviewed the documentation and agree with the history, physical findings, work-up, and medical decision making as recorded. Devi Gold MD mmetias Not available 03/18/2024 11:53:13 Reason for Referral None Reported. Results Created Date Observation Date Name Description Value Unit Range Abnormal Flag Note LastModifiedBy Organization Detail LastModifiedTime 03/18/20 24 03/18/2024 rapid SARS CoV 2 Ag, QL IA, respi rator y speci men rapid SARS CoV 2 Ag, QL IA, respiratory specimen negati ve Not Available In-Office Order Internal Use Only DO Not Attach Compendium DO Not Attach Compendium, Do Not Delete/merge, [id number] 03/18/2024 10:54:17 03/18/20 24 03/18/2024 rapid flu (A+B) Flu A negati ve Not Available In-Office Order Internal Use Only DO Not Attach Compendium DO Not Attach Compendium, Do Not Delete/merge, [id number] 03/18/2024 10:54:16 03/18/20 24 03/18/2024 rapid flu (A+B) Flu B negati ve Not Available In-Office Order Internal Use Only DO Not Attach Compendium DO Not Attach Compendium, Do Not Delete/merge, [id number] 03/18/2024 10:54:16 04/03/19 25 03/20/2024 CT, abdom en + pelvi s, w/ contr ast No observ ation record ed. rgriac [address] [place], [address], 04/03/2024 09:58:53 Result Notes None recorded. Problems Name Problem SNOMED Code Status Onset Date Resolution Date Notes Provider Name and Address Organization Details Recorded Time Irritable bowel syndrome with diarrhea 175595270 Active 2019 Chisintiayerachel Uriarte [place], [place] [facility] 0 10:10:28 Diabetes mellitus 18908854 Active 2019 Chienyerachel Nwjoel [place] [facility] 0 17:43:55 Congenital malformati on of ear 257635334 Active 2019 right ear with no hearing ARELY YOUNG MD Attn: Rosy gonzalez,[address] [place], [address], [place] [facility] 4 09:39:51 Obstructiv e sleep apnea syndrome 88637819 Active 2020 Denisha [place] [facility] 1 14:40:00 COVID-19 653292191 Active 2021 Cosmo [place]verde [place] [facility] 2 17:44:52 Hypertensi ve disorder 24995679 Active 2021 Starla Parham MD Attn: Rosy gonzalez,[address] [place], [address], [place] [facility] 2 22:15:53 Obesity 851413211 Active 2021 Starla Parham MD Attn: Rosy gonzalez,[address] [place], [address], [place] [facility] 2 22:16:02 Radial styloid tenosynovi tis 12240117 Active 2023 ARELY YOUNG MD Attn: Rosy gonzalez,[address] [place], [address], [place] [facility] 4 09:24:31 Tubular adenoma of colon 065103776 Active 202307/15/2023 tubular adenoma polyp in the transverse colon ARELY YOUNG MD Attn: Rosy gonzalez,[address] [facility], [place], [address], [facility] 4 14:42:34 Mild intermitte nt asthma 169628749 Active 2023 ARELY YOUNG MD Attn: Rosy gonzalez,[address] [facility], [place], [address], [facility] 4 10:53:38 Problem Notes None recorded. Procedures Surgical History Date Name Laterality Status Provider Name and Address Organization Details Recorded Time 07/27/19 21 Diabetic Foot Exam completed Andrewsintiafrancheskarachel Mirelesjoel [facility] 08/01/2020 00:33:16 11/30/19 20 Skin Tag Removal completed Cosmo Valverde [facility] 2019 16:42:21 Carpal tunnel surgery completed Vielka Millard MA [facility] 09/27/2023 09:13:16 colonoscopy completed Vielka Millard MA [facility] 09/27/2023 09:13:23 decompression of ulnar nerve at elbow completed ARELY YOUNG MD Attn: Accounting,[address] [facility], [place], [address], [facility] 09/27/2023 09:25:13 Imaging Results None recorded. Procedure Notes None recorded. Medical Equipment None Reported. Allergies Allergen ID Allergen Name Allergen Category Reaction Reaction Severity Criticality Documentation Date Start Date Code Code System Note Provider Name and Address Organization Details Recorded Time 983802 morphine medicatio n decreased blood pressure severe Not available 11/23/2019 7052 RxNorm Andrewanthony Mirelesjoel null, [place] [facility] 0 09:48:05 688348 lisinopri l medicatio n cough Not available Not available 11/13/2022 88630 RxNorm Starla Parham MD Attn: Rosy gonzalez,[address] [facility], [place], [address], [facility] 3 17:01:44 Medications Name Sig Start Date [...] Updated DateTime 4 180.34 cm 45.6 kg/m2 455612. 75 g 99 % 99 % 80 /min 18 /min 99 [degF] 130 mm[Hg] 80 mm[Hg] Vielka Millard [place] - [facility] 4 10:17:17 Social History Question Answer Notes LastModified by Organizat ion Details LastModified Time Tobacco Smoking Status Never Smoker Misti Beckfrod MA [facility], [place] - [facility] 11/23/2019 09:33:19 What Is Your Level Of [...] dose or 50 mcg/0.25mL dose 1 completed AERLY YOUNG MD Attn: Accounting,[address] [place], [address], [place] [facility] 03/18/2024 10:52:27 COVID-19, mRNA, LNP-S, PF, 100 mcg/0.5mL dose or 50 mcg/0.25mL dose 1 completed ARELY YOUNG MD Attn: Accounting,[address] [place], [address], [place] [facility] 03/18/2024 10:52:27 Influenza, split virus, quadrivalent, preservative 8 completed ARELY YOUNG MD Attn: Accounting,[address] [place], [address], [place] [facility] 03/18/2024 10:52:27 Hep A, adult 2 completed ARELY YOUNG MD Attn: Accounting,[address] [place], [address], [place] [facility] 03/18/2024 10:52:27 Past Encounters Encounter ID Performer Location Encounter Start Date Encounter Closed Date Diagnosis/Indication Diagnosis SNOMED-CT Code Diagnosis ICD10 Code [id number] MD Shyam BUNCH [address] [facility] [place] [address] 03/18/2024 10:04:46 03/27/2024 11:36:21 Mild intermittent asthma 459723537 J45.20 Upper resp iratory infection 84613876 J06.9 Health Concerns Section Related Observation LastModified by Organization Detai ls LastModified Time None Recorded Concern Status LastModified by Organization Details LastModified Time None Recorded Payers Encounter Date Sequence Insurance Name Policy Number Policy Contreras Covered Member ID Contreras Member ID Guarantor Name 03/18/2024 1 [place] [id number] Oscar Rehman [id number] Oscar Rehman Notes Date Note Type Note Provider Name and Address Organization Details Recorded Time 03/18/2024 text/html Oscar is a 38 y/o M who presents for sick visit. Has been having dry cough, diarrhea, fatigue started 4 days ago.Is having 5 episodes of loose stool.Has been trying to stay hydrated but feels nauseous. No emesis.+ sore throat. No fever or chills. No rhinorrhea.Two kids and are sick were sick but recovered after a couple of days.Has tried OTC cough and congestion medication. DEVI GOLD MD Attn: Accounting,[address] [place], [address], [place] [facility] 03/26/2024 22:11:39
--- OUTSIDE RECORDS SUMMARY | 2024-04-04 20:04 | XMS_ITS | Patient Health Summary ---
Author Organization [facility] Address [address] [place] [address] Care Team Providers Care Solar Panel Installation Supervisor Name Role Phone Unavailable Primary Care Provider Unavailabl e Note from [facility],non-owned Affiliates and Associated Physician Practices is amultiple site organization consisting of ambulatory clinics and hospital sitesin [place], [place], [place] and [place]. This disclosure is being madepursuant to the Care Everywhere program and may not contain all information available regarding this patient. Last updated 17.[facility] Allergies * Morphine(Cardiac Injury) -High Criticality Medications [...] AM CDT Procedures * DERMATOPATHOLOGY(Performed 11/30/2019) * NJ DRAIN/INJECT LARGE JOINT/BURSA(Performed 10/31/2017) Performed for Acute pain of both shoulders * NJ DRAIN/INJECT LARGE JOINT/BURSA(Performed 10/31/2017) Performed for Acute [...] CDT) Case Report Dermatopathology Report ? Case: [id number] ? Authorizing Provider: ??Aimee Hays MD ??Collected: ? 11/30/2019 12:00 AM ? Ordering Location: ? [facility] ?Received: ?12/01/2019 09:32 AM ? [...] specimen consists of a shave biopsy measuring 10i4n45im, bisected. Jar 0. 0 2:34 PM CDT [...] characteristic determined by the Dermatopathology Laboratory at [facility], directed by Dr. Jacklyn Jo. These tests need not be, and therefore are not, approved by the [place] Food and Drug Administration. The tests are used for clinical purposes. Billing Codes Specimen Charges Stain Charges 21639 1 0 2:34 PM CDT DERMATOPATHOLOGY LABORATORY Embedded Images 0 2:34 PM CDT DERMATOPATHOLOGY LABORATORY Pathology/Cytolog y TISSUE SPECIMEN FROM SKIN / Unknown 11/30/2019 12/01/2019 9:32 AM CDT Aimee Hays MD LAB - PATHOLOGY/ CYTOLOGY ORDERABLES DERMATOPATHOLOGY LABORATORY [facility] - Department of Dermatology [address], [address] [phone] * NJ DRAIN/INJECT LARGE JOINT/BURSA (10/31/2017 11:23 AM CDT) [...] III, MD PROCEDURE/MIN OR SURGICAL ORDERABLES * NJ DRAIN/INJECT LARGE JOINT/BURSA (10/31/2017 11:23 AM CDT) [...] scoliosis. Report dictated by Jacklyn Tello MD (outside residential sales professional). Dr. SEVEN Braun MD have personally reviewed [...] scoliosis. Report dictated by Jacklyn Tello MD (outside residential sales professional). I, Dr. SEVEN MURRAY MD have personally reviewed and interpreted this examination/study. This report was electronically signed by SEVEN MURRAY MD on10/23/2017 9:11 AM . Maurice Ba MD DIAGNOSTIC IMAGING O RDERABLES * PATH CONSULT REFER SPECIMEN (03/01/2004 1:20 PM SENIOR CONSULTANT) Result CASE NUMBER [id number] [facility] PATH REPORT Comment: ORDERING PHYSICIAN ??FEDERICO [...] were determined by the Histopathology Laboratory of [facility] (immunohistochemistry) or the Histology Laboratory of [facility] (indirect immunofluorescence) in compliance with CLIA `88 regulations. ??Some of these tests rely on the use of analyte-specific reagents and are subject to specific labeling requirements by the FDA. ??Such tests were developed by the Histopathology Laboratory of [facility] or the Histology Laboratory of [facility] and have not been cleared or [...] is present with all these stains. ??(DED/pg) Accounts Administrator ? Ho Valera PATHOLOGIST ?Teresa Amanda M.D. ELECTRONICALLY JOELTERESA COLLAZO MISCELLANEOUS SAMPLES / Unknown 03/01/2004 1:20 PM SENIOR CONSULTANT 03/01/2004 1:21 PM SENIOR CONSULTANT Historical Provider MD LAB - PATHOLOGY/C YTOLOGY ORDERABLES [facility] PATH REPORT * GROSS + MICRO EXAM (03/29/2003 10:10 AM SENIOR CONSULTANT) Result CASE NUMBER [id number] [facility] PATH REPORT Comment: ORDERING PHYSICIAN ??NAOMI [...] were determined by the Histopathology Laboratory of [facility] (immunohistochemistry) or the Histology Laboratory of [facility] (indirect immunofluorescence) in compliance with CLIA `88 regulations. ??Some of these tests rely on the use of analyte-specific reagents and are subject to specific labeling requirements by the FDA. ??Such tests were developed by the Histopathology Laboratory of [facility] or the Histology Laboratory of [facility] and have not been cleared or approved by the FDA. ??The FDA has determined that such clearance or approval is not necessary. ??These tests are used for clinical purposes and should not be regarded as investigational or for research. This case has been personally reviewed and interpreted by the attending (teaching) pathologist. *ELECTRON MICROSCOPY ? ([id number]) Ultrastructural evaluation of the muscle biopsy shows [...] remote neoplasms. (CAV/ls/akn) *ADDENDUM 1 ? EM #[id number]. Four 1 micron thick toluidine blue stained sections of the muscle biopsy are examined at the light microscopic level. ??Block 1 shows well-oriented fibers in longitudinal section and this block will be thin-sectioned. ??(CAV/amc) *ADDENDUM 2 ? Special histochemistry demonstrates the presence of cytochrome oxidase, phosphofructokinase, adenylate deaminase, and myophosphorylase within the muscle cell cytoplasm. Accounts Administrator ? Anais Ruggiero PATHOLOGIST ?Clara Macias M.D. ELECTRONICALLY CLARA HONG MISCELLANEOUS SAMPLES / Unknown 03/29/2003 10:10 AM SENIOR CONSULTANT 03/29/2003 10:25 AM SENIOR CONSULTANT Historical Provider MD NAIK - PATHOLOGY/C YTOLOGY ORDERABLES [facility] PATH REPORT * GROSS EXAM PATHOLOGY (11/10/2002 12:50 PM CDT) Result CASE NUMBER [id number] [facility] PATH REPORT Comment: ORDERING PHYSICIAN ??SHAUN [...] and interpreted by the attending (teaching) pathologist. Accounts Administrator ? Ho Valera PATHOLOGIST ?Carolee Abbott M.D. ELECTRONICALLY JOEL CAROLEE MILLIGAN MISCELLANEOUS SAMPLES / Unknown 11/10/2002 12:50 PM CDT 11/10/2002 2:37 PM CDT Historical Provider MD LAB - PATHOLOGY/C YTOLOGY ORDERABLES [facility] PATH REPORT
--- OUTSIDE RECORDS SUMMARY | 2024-04-04 20:04 | XMS_ITS | Encounter Summary ---
Author Organization [facility] Address [address] [address] Care Team Providers Care Center Machine Set Up Operator Name Role Phone Unavailable Primary Care Provider Unavailabl e Encounter Details Date Type Department Care Team (Late st Contact Info) Description 11/10/2002 Orders Only [facility] - Laboratory [address] [place] [address] [id number] ProviderAngie MD Social History Tobacco Use Types [...] Associated Diagnosis Comments PATH CONSULT REFER SPECIMEN [facility] 03/01/2004 1:20 PM FACILITY PRACTICE SPECIALIST GROSS + MICRO EXAM [facility] 03/29/2003 10 :10 AM FACILITY PRACTICE SPECIALIST GROSS EXAM PATHOLOGY [facility] 11/10/2002 12:50 PM CDT documented in this encounter Results * PATH CONSULT REFER SPECIMEN (03/01/2004 1:20 PM FACILITY PRACTICE SPECIALIST) Result CASE NUMBER [id number] [facility] PATH REPORT Comment: ORDERING PHYSICIAN [...] Hospital (immunohistochemistry) or the Histology Laboratory of [facility] (indirect immunofluorescence) in compliance with CLIA `88 regulations. ??Some of these tests rely on the use of analyte-specific reagents and are subject to specific labeling requirements by the FDA. ??Such tests were developed by the Histopathology Laboratory of [facility] or the Histology Laboratory of [facility] and have not been cleared [...] is present with all these stains. ??(DED/pg) Chemical Mixer ? Ho Valera PATHOLOGIST ?Teresa Amanda M.D. ELECTRONICALLY JOELTERESA COLLAZO MISCELLANEOUS SAMPLES / Unknown 03/01/2004 1:20 PM FACILITY PRACTICE SPECIALIST 03/01/2004 1:21 PM FACILITY PRACTICE SPECIALIST Historical Provider LAB - PATHOLOGY/C YTOLOGY ORDERABLES [facility] PATH REPORT * GROSS + MICRO EXAM (03/29/2003 10:10 AM FACILITY PRACTICE SPECIALIST) Result CASE NUMBER [id number] [facility] PATH REPORT Comment: ORDERING PHYSICIAN [...] Hospital (immunohistochemistry) or the Histology Laboratory of [facility] (indirect immunofluorescence) in compliance with CLIA `88 regulations. ??Some of these tests rely on the use of analyte-specific reagents and are subject to specific labeling requirements by the FDA. ??Such tests were developed by the Histopathology Laboratory of [facility] or the Histology Laboratory of [facility] and have not been cleared or approved by the FDA. ??The FDA has determined that such clearance or approval is not necessary. ??These tests are used for clinical purposes and should not be regarded as investigational or for research. This case has been personally reviewed and interpreted by the attending (teaching) pathologist. *ELECTRON MICROSCOPY ? ([id number]) Ultrastructural evaluation of the muscle biopsy shows [...] remote neoplasms. (CAV/ls/akn) *ADDENDUM 1 ? EM #[id number]. Four 1 micron thick toluidine blue stained sections of the muscle biopsy are examined at the light microscopic level. ??Block 1 shows well-oriented fibers in longitudinal section and this block will be thin-sectioned. ??(CAV/amc) *ADDENDUM 2 ? Special histochemistry demonstrates the presence of cytochrome oxidase, phosphofructokinase, adenylate deaminase, and myophosphorylase within the muscle cell cytoplasm. Chemical Mixer ? Anais Ruggiero PATHOLOGIST ?Clara Macias M.D. ELECTRONICALLY CLARA HONG MISCELLANEOUS SAMPLES / Unknown 03/29/2003 10:10 AM FACILITY PRACTICE SPECIALIST 03/29/2003 10:25 AM FACILITY PRACTICE SPECIALIST Historical Provider MD LAB - PATHOLOGY/C YTOLOGY ORDERABLES [facility] PATH REPORT * GROSS EXAM PATHOLOGY (11/10/2002 12:50 PM CDT) Result CASE NUMBER [id number] [facility] PATH REPORT Comment: ORDERING PHYSICIAN [...] and interpreted by the attending (teaching) pathologist. Chemical Mixer ? Ho Valera PATHOLOGIST ?Bienvenido Abbott M.D. ELECTRONICALLY BIENVENIDO DEE MISCELLANEOUS SAMPLES / Unknown 11/10/2002 12:50 PM CDT 11/10/2002 2:37 PM CDT Historical Provider LAB - PATHOLOGY/C YTOLOGY ORDERABLES [facility] PATH REPORT documented in this encounter Visit Diagnoses Not on filedocumented in this encounter
--- OUTSIDE RECORDS SUMMARY | 2024-04-04 20:04 | XMS_ITS | Encounter Summary ---
Author Organization [facility] Health Address [address] [place] [address] Care Team Providers Care Senior It Engineer Name Role Phone Unavailable Primary Care Provider Unavailabl e Reason for Referral * Neurology (Routine) - Closed Specialty Diagnoses / Procedures Referred By Donavon braswell Referred To Contact Diagnoses Numbness and tingling Procedures NERVE CONDUCTION TEST Maurice Ba MD [address] [place] [address] Referral ID Status Reason Start Date Expiration Date Visits Re quested Visits Authorized [id number] Closed 01/03/2018 07/02/2018 1 1 * Neurology (Routine) - Closed Specialty Diagnoses / Procedures Referred By Donavon braswell Referred To Contact Diagnoses Numbness and tingling Procedures EMG Maurice Ba MD [address] [place] [address] Referral ID Status Reason Start Date Expiration Date Visits Re quested Visits Authorized [id number] Closed 01/03/2018 07/02/2018 1 1 Reason for Visit * Reason Comments Establish Care CHRONIC BACK PAIN Encounter Details Date Type Department Care Team (Late st Contact Info) Description 10/23/2017 9:00 AM CDT Office Visit [facility] [address] [place] [address] Maurice Ba MD [address] [address] Chronic left shoulder pain (Primary Dx); Numbness [...] pain For any questions please call [place] [phone] documented in this encounter Progress Notes * Maurice Ba MD - 10/24/2017 3:25 PM CDT NAME: AMA REHMAN JR : 1985 AGE: 32 ROOM #: / SEX: M ADMITTED: 10/23/2017 PROVIDER: Dr. Maurice Ba M.D. ?? DATE: 10/23/2017 ?? HISTORY OF PRESENTING ILLNESS: Mr. 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 ? [id number] Doc ID: [id number] Voice Job ID: [id number] documented in this encounter H&P Notes * Maurice Ba MD - 10/23/2017 9:55 PM CDT NAME: AMA REHMAN JR : 1985 AGE: 32 ROOM #: / SEX: M ADMITTED: 10/23/2017 PROVIDER: Dr. Maurice Ba M.D. DATE: 10/23/2017 HISTORY OF PRESENTING ILLNESS: Mr. 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 [id number] Doc ID: [id number] Job ID: [id number] documented in this encounter Plan of Treatment [...]
--- OUTSIDE RECORDS SUMMARY | 2024-04-04 20:04 | XMS_ITS | Encounter Summary ---
Author Organization [facility] Address [address] [facility] [place] [address] Care Team Providers Care Passenger Coach Driver Name Role Phone Unavailable Primary Care Provider Unavailabl e Reason for Visit * Reason Onset Date Comments Future Appointment 2017 Encounter Details Date Type Department Care Team (Late st Contact Info) Description 2017 Telephone [facility] [address] [place] [address] Maurice Ba MD [address] [address] Future Appointment Social History Tobacco Use Types [...]
--- OUTSIDE RECORDS SUMMARY | 2024-04-04 20:04 | XMS_ITS | Encounter Summary ---
Author Organization [facility] Health Address [address] [place] [address] Care Team Providers Care Armature Winder Repair Helper Name Role Phone Sara Parks APRN-LIVE IN HOUSEKEEPER Primary Care Provider Reason for Referral * Evaluate & Treat (Routine) - Closed Specialty Diagnoses / Procedures Referred By Donavon braswell Referred To Contact Physical Therapist Diagnoses Acute pain of both shoulders Thoracic outlet syndrome Zeb Blanton III, MD [address] [place] [address] [place] [address] Referral ID Status Reason Start Date Expiration Date V isits Requested Visits Authorized [id number] Closed Specialty Services Required 10/28/2017 04/26/2018 16 16 Scheduling Instructions 16 visits Reason for Visit * Reason Onset Date Comments Shoulder Pain left Shoulder Pain 10/29/2017 Encounter Details Date Type Department Care Team (Late st Contact Info) Description 10/28/2017 10:10 AM CDT Office Visit [facility] [address] [place] [address], [place] [address] Zeb Blanton III, MD [address] [place] [address] [place] [address] Acute pain of both shoulders [...] Blanton III, MD Primary Care Sports Medicine [facility] [phone] (phone) [phone] (fax) documented in this encounter Progress Notes * Zeb Blanton III, MD - 10/28/2017 11:16 AM CDT Subjective: Patient ID: Oscar Rehman is an 32 y.o. male. Chief Complaint Patient presents with ??? Shoulder Pain left ??? Shoulder Pain HPI New pt today with complaint of bilateral shoulder pain. Recently seen by neurosurgery for [id number] neck and back pain, referred to our [...] Noemí'stest is equivocal. Speed's test is equivocal. Ziebach's test is equivocal. Frances testing is positive, [...] test is equivocal. Speed's test is equivocal. Ziebach's test is equivocal. Frances testing is positive, Neer test is positive. XR: left shoulder 10/23/17 No fracture is present. No arthritis is seen at the acromioclavicular or glenohumeral joint. XR: right shoulder 10/23/17 No fracture is present. No arthritis is seen at the acromioclavicular or glenohumeral joint. 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 including [...] CDTAssociated Order(s): PROCDOC LARGE JOINT INJECTION Procedure(s): MS DRAIN/INJECT LARGE JOINT/BURSA Pre-Procedure Diagnose(s): Acute pain [...] CDTAssociated Order(s): PROCDOC LARGE JOINT INJECTION Procedure(s): MS DRAIN/INJECT LARGE JOINT/BURSA Pre-Procedure Diagnose(s): Acute pain [...] Procedure Name Priority Date/Time Associated Diagnosis Comments MS DRAIN/INJECT LARGE JOINT/BURSA Routine 10/31/2017 11:23 AM CDT Acute pain of both shoulders MS DRAIN/INJECT LARGE JOINT/BURSA Routine 10/31/2017 11:23 AM CDT Acute pain of both shoulders documented in this encounter Results * MS DRAIN/INJECT LARGE JOINT/BURSA (10/31/2017 11:23 AM CDT) [...] III, MD PROCEDURE/MIN OR SURGICAL ORDERABLES * MS DRAIN/INJECT LARGE JOINT/BURSA (10/31/2017 11:23 AM CDT) [...] mg documented in this encounter Care Teams Armature Winder Repair Helper Relationship Specialty Start Date End Date Sara Parks, PRODUCTION SUPERINTENDENT-LIVE IN HOUSEKEEPER [address] [place] [id number] PCP - General 10/28/17 04/25/20 documented as of this encounter
--- OUTSIDE RECORDS SUMMARY | 2024-04-04 20:04 | XMS_ITS | Encounter Summary ---
Author Organization [facility] Address [address] [place] [address] Care Team Providers Care Track Patrol Name Role Phone Sara Parks LOOM SETTER FOURDRINIER-CLIENT TECHNOLOGIES SPECIALIST Primary Care Provider Encounter Details Date Type Department Care Team (Late st Contact Info) Description 10/03/2017 Orders Only [facility] [address] [place] [address] Maurice Ba MD [address] [place] [address] Back pain, unspecified back location, unspecified back [...] scoliosis. Report dictated by Jacklyn Tello MD (residential carpet installer). I, Dr. SEVEN MURRAY MD have personally [...] scoliosis. Report dictated by Jacklyn Tello MD (residential carpet installer). I, Dr. SEVEN MURRAY MD have personally reviewed and interpreted this examination/study. This report was electronically signed by SEVEN MURRAY MD on10/23/2017 9:11 AM . Maurice Ba MD DIAGNOSTIC IMAGING O RDERABLES documented in this encounter Visit Diagnoses Diagnosis Back pain, unspecified back location, unspecified back pain laterality, unspecified chronicity- Primary documented in this encounter Care Teams Track Patrol Relationship Specialty Start Date End Date Sara Parks, LOOM SETTER FOURDRINIER-CLIENT TECHNOLOGIES SPECIALIST [address] [place] [address] PCP - General 10/28/17 04/25/20 documented as of this encounter
--- OUTSIDE RECORDS SUMMARY | 2024-04-04 20:04 | XMS_ITS | Clinical Summary ---
Author Organization [facility] Address [address] [place] [address] Care Team Providers Care Offender Job Retention Specialist Name Role Phone Unavailable Primary Care Provider Unavailabl e Source Comments [facility],non-owned Affiliates and Associated Physician Practices is amultiple site organization consisting of ambulatory clinics and hospital sitesin [place], [place], [place] and [place]. This disclosure is being madepursuant to the Care Everywhere program and may not contain all information available regarding this patient. Last updated 17.[facility] Allergies Active Allergy Reactions Criticality Noted Date [...]
--- OUTSIDE RECORDS SUMMARY | 2024-04-04 20:04 | XMS_ITS | Encounter Summary ---
Author Organization [facility] Health Address [address] [place] [address] Care Team Providers Care Striker Off Name Role Phone ParksSara COMMUNITY NURSE-VASCULAR TECH Primary Care Provider Oscar Siegel MD Primary Care Provider [phone] Dominguez Mena DO Primary Care Provider [phone] Oscar Siegel MD Primary Care Provider [phone] Encounter Details Date Type Department Care Team (Late st Contact Info) Description 12/01/2019 Lab Requisition [facility] [address] [place] [address] Aimee Hays MD [address] [place] [address] Social History Tobacco Use Types Packs/Day [...] CDT) Case Report Dermatopathology Report ? Case: [id number] ? Authorizing Provider: ??Aimee Hays MD ??Collected: ? 11/30/2019 12:00 AM ? Ordering Location: ? [facility] ?Received: ?12/01/2019 09:32 AM ? [...] specimen consists of a shave biopsy measuring [id number], bisected. Jar 0. 0 2:34 PM CDT [...] characteristic determined by the Dermatopathology Laboratory at [facility], directed by Dr. Jacklyn Jo. These tests need not be, and therefore are not, approved by the [place] Food and Drug Administration. The tests are used for clinical purposes. Billing Codes Specimen Charges Stain Charges 71354 1 0 2:34 PM CDT DERMATOPATHOLOGY LABORATORY Embedded Images 0 2:34 PM CDT DERMATOPATHOLOGY LABORATORY Pathology/Cytolog y TISSUE SPECIMEN FROM SKIN / Unknown 11/30/2019 12/01/2019 9:32 AM CDT Aimee Hays MD LAB - PATHOLOGY/ CYTOLOGY ORDERABLES Performing Organization Address [facility]/State/ZIP Co de Phone Number DERMATOPATHOLOGY LABORATORY [facility] - Department of Dermatology [facility] Medicine [address] [place] [address], [address] [phone] documented in this encounter Visit Diagnoses Not on filedocumented in this encounter Care Teams Striker Off Relationship Specialty Start Date End Date Sara Parks, COMMUNITY NURSE-VASCULAR TECH [address] [place] [address] [place] [phone] PCP - General 10/28/17 04/25/20 Oscar Siegel MD [address] [place] [address] [place] [address] PCP - General 04/26/20 06/15/20 Dominguez Mena DO [address] [address] PCP - General Family Medicine 06/16/20 06/29/20 Oscar Siegel MD [address] [place] [address] PCP - General 06/30/20 11/07/22 documented as of this encounter
--- OUTSIDE RECORDS SUMMARY | 2024-04-04 20:04 | XMS_ITS | Encounter Summary ---
Author Organization [facility] Address [address] [address] [place] [address] Care Team Providers Care Drying Tunnel Operator Name Role Phone ParksSara APRN-UTILITY LOCATOR Primary Care Provider Reason for Visit * Neurology (Routine) - Closed Specialty Diagnoses / Procedures Referred By Donavon braswell Referred To Contact Neurology Diagnoses Paresthesia of skin Disturbances of skin sensation Procedures EMG Maurice Ba MD [address] [place] [address] Meron Long MD [address] [facility] 1L [place] [address] Referral ID Status Reason Start Date Expiration Date Visits Re quested Visits Authorized [id number] Closed 11/08/2017 05/07/2018 1 1 Encounter Details Date Type Department Care Team (Latest Contact Info) Description 11/08/2017 4:00 PM CDT - 11/08/2017 11:59 PM CDT Hospital Encounter [facility] EEG/EMG [address] [place] [phone] Maurice Ba MD [address] [facility] 2L [place] [address] Meron Long MD [address] [facility] [address] [place] [address] Discharge Disposition: Home or Self [...] sensation documented in this encounter Care Teams Drying Tunnel Operator Relationship Specialty Start Date End Date Sara Parks, COLDFUSION-UTILITY LOCATOR [address] [place] [address] PCP - General 10/28/17 04/25/20 documented as of this encounter
--- OUTSIDE RECORDS SUMMARY | 2024-04-04 20:04 | XMS_ITS | Encounter Summary ---
Author Organization [facility] Address [address] [place] [address] Care Team Providers Care Pants Busheler Name Role Phone Unavailable Primary Care Provider Unavailabl e Reason for Visit * Reason Onset Date Comments Scheduling 09/30/2017 Encounter Details Date Type Department Care Team (Late st Contact Info) Description 09/30/2017 Telephone [facility] [address] [place] [address] Adamaris Cohen Scheduling Social History Tobacco Use [...]
--- OUTSIDE RECORDS SUMMARY | 2024-04-04 20:04 | XMS_ITS | Encounter Summary ---
Author Organization [facility] Health Address [address] [facility] [place] [address] Care Team Providers Care Logistics Manager Name Role Phone Unavailable Primary Care Provider Unavailabl e Reason for Visit * Reason Onset Date Comments Referral 10/23/2017 Encounter Details Date Type Department Care Team (Late st Contact Info) Description 10/23/2017 Telephone [facility] [address] [place] [address] [facility] Referral Social History [...]
--- OUTSIDE RECORDS SUMMARY | 2024-04-04 20:04 | XMS_ITS | Encounter Summary ---
Author Organization [facility] Health Address [address] [facility] [place] [address] Care Team Providers Care Certified Medicine Aide Name Role Phone Sara Parks ASSEMBLER METAL BUILDING-SPINNERET PERSON Primary Care Provider Reason for Visit * Reason Onset Date Comments Future Appointment 12/10/2017 Encounter Details Date Type Department Care Team (Late st Contact Info) Description 12/10/2017 Telephone [facility] [address] [place] [address] Maurice Ba MD [address] [address] Future Appointment Social History Tobacco Use Types [...] on filedocumented in this encounter Care Teams Certified Medicine Aide Relationship Specialty Start Date End Date Sara Parks, ASSEMBLER METAL BUILDING-SPINNERET PERSON [address] [place], [place] [address] PCP - General 10/28/17 04/25/20 documented as of this encounter
--- OUTSIDE RECORDS SUMMARY | 2024-04-04 20:04 | XMS_ITS | Referral Summary ---
Author Organization [facility] Address [address] [facility] [place] [address] Care Team Providers Care Digital Manager Name Role Phone Unavailable Primary Care Provider Unavailabl e Source Comments [facility],non-owned Affiliates and Associated Physician Practices is amultiple site organization consisting of ambulatory clinics and hospital sitesin [place], [place], [place] and [place]. This disclosure is being madepursuant to the Care Everywhere program and may not contain all information available regarding this patient. Last updated 17.[facility] Allergies Active Allergy Reactions Criticality Noted Date [...]
--- OUTSIDE RECORDS SUMMARY | 2024-04-04 20:04 | XMS_ITS | Encounter Summary ---
Author Organization [facility] Address [address] [place] [address] Care Team Providers Care Case Monitor Name Role Phone Unavailable Primary Care Provider Unavailabl e Reason for Visit * Reason Onset Date Comments Future Appointment 10/18/2017 Encounter Details Date Type Department Care Team (Late st Contact Info) Description 10/18/2017 Telephone [facility] [address] [place] [address] Maurice Ba MD [address] [place] [address] Future Appointment Social History Tobacco Use Types [...] appointment. Message on phone was not reachable [id number] . documented in this encounter Plan of Treatment Not on file documented as of this encounter Visit Diagnoses Not on filedocumented in this encounter
--- OUTSIDE RECORDS SUMMARY | 2024-04-04 20:05 | XMS_ITS | Encounter Summary ---
Author Organization [facility] Address [address] [place] [address]. [place], [place] [address] [place] [address] Care Team Providers Care Bedspring Assembler Name Role Phone None, Provider Primary Care Provider Starla Grullon MD Primary Care Provider [phone] Reason for Visit * Reason Comments CT (SCAN) Lab (SCAN) Encounter Details Date Type Department Care Team ([facility] Contact Info) Description 11/05/2020 Scan HEALTH INFO [...] on filedocumented in this encounter Care Teams Bedspring Assembler Relationship Specialty Start Date End Date None, Provider, PCP - General 11/13/19 11/16/20 Starla Parham MD PCP - General FAMILY PRACTICE 11/17/20 documented as of this encounter
--- OUTSIDE RECORDS SUMMARY | 2024-04-04 20:05 | XMS_ITS | Encounter Summary ---
Author Organization [facility] [place] Address [address] [place] [address]. [place], [place] [address] [place] [address] Care Team Providers Care Quartz Cutter Name Role Phone None, Provider Primary Care [...] on filedocumented in this encounter Care Teams Quartz Cutter Relationship Specialty Start Date End Date None, Provider, PCP - General 11/13/19 11/16/20 documented as of this encounter
--- OUTSIDE RECORDS SUMMARY | 2024-04-04 20:05 | XMS_ITS | Encounter Summary ---
Author Organization [facility] Address [address] [place] [address]. [place], [place] [address] [place] [address] Care Team Providers Care Order Dispatcher Name Role Phone Starla Parham MD Primary Care Provider [phone] Encounter Details Date Type Department Care Team [...] on filedocumented in this encounter Care Teams Order Dispatcher Relationship Specialty Start Date End Date Starla Parham MD PCP - General FAMILY PRACTICE 11/17/20 documented as of this encounter
--- OUTSIDE RECORDS SUMMARY | 2024-04-04 20:05 | XMS_ITS | Encounter Summary ---
Author Organization [facility] Address [address] [place] [address]. [place], [place] [address] [place] [address] Care Team Providers Care Display Screen Fabricator Name Role Phone Starla Parham MD Primary Care Provider [phone] Reason for Visit * Reason Comments Procedure (SCAN) Encounter Details Date Type Department Care Team ([facility] Contact Info) Description 01/06/2021 Scan HEALTH INFO [...] filedocumented in this encounter Care Teams Display Screen Fabricator Relationship Specialty Start Date End Date Starla Parham MD PCP - General FAMILY PRACTICE 11/17/20 documented as of this encounter
--- OUTSIDE RECORDS SUMMARY | 2024-04-04 20:05 | XMS_ITS | Encounter Summary ---
Author Organization [facility] Address [address] [place] [address]. [place], [place] [address] [place] [address] Care Team Providers Care Ceramic Tile Installer Name Role Phone Starla Parham MD Primary Care Provider [phone] Reason for Visit * Reason Comments Chest Pain C/o chest pressure b eginning Sat night; worsening Cough Encounter Details Date Type Department Care Team (Late st Contact Info) Description 07/09/2022 9:25 AM CDT - 07/09/2022 12:04 PM CDT Emergency [facility] Emergency [place], [place] [address] Angélica Sexton PA [address] [place] [address] Chest Pain (C/o chest pressure beginning Sat [...] Not Caused by the Heart Discharge Instructions (Sammarinese) * Bronchitis, Adult ED (Sammarinese) documented in this encounter Medications at Time [...] DIVYA Blair - 07/09/2022 10:48 AM CDT [place], [place] EMERGENCY DEPARTMENT ENCOUNTER HISTORICAL INFORMATION Primary Care Doctor: Starla Parham MD Patient information was obtained primarily from the patient, nursing notes History/Exam limitations: None Provider at Bedside Date/Time Event User Comments 07/09/22 0923 Provider at Bedside Assessing Patient ANGÉLICA SEXTON [...] XR CHEST PORTABLE Final Result by User, [email or web address] (07/09 1024) Examination: Chest Radiograph, 1 view [...] and validated. Please refer to the exit manual writer discharge instructions for details surrounding the [...] pain. Reports took 2 asa apx 0730 INDUSTRIAL HYGIENE TECHNICIAN. Denies any recent fevers. Reports had COVID [...] D-DIMER, QUANTITATIVE (07/09/2022 9:42 AM CDT) Pathologist [facility] [place] D-DIMER 250 0 - 500 ng{FEU}/mL 07/09/2022 11:30 AM CDT [facility] Comment: D-Dimer values less than or [...] CDT [facility] Final Resu lt [facility] [address] [place] [address], [place] [phone] * TROPONIN, QUANT (07/09/2022 9:42 AM CDT) [facility] TROPONIN I HIGH SENSITIVITY 5 <79 ng/L 07/09/2022 10:17 AM CDT [facility] Comment: THESE RESULTS HAVE BEEN OBTAINED [...] us [facility] Final Resu lt [facility] [address] [place] [address], * (ABNORMAL) COMPREHENSIVE METABOLIC PANEL (07/09/2022 9:42 AM CDT) GLUCOSE 99 70 - 99 MG/DL 07/09/2022 10:17 AM CDT [facility] BUN 12 7 - 18 MG/DL 07/09/2022 10:17 AM CDT [facility] CREATININE S/P/B 0.91 0.7 - 1.3 MG/DL 07/09/2022 10:17 AM CDT [facility] SODIUM S/P/B 135(L) 136 - 145 MMOL/L 07/09/2022 10:17 AM CDT [facility] POTASSIUM S/P/B 3.8 3.5 - 5.1 MMOL/L 07/09/2022 10:17 AM CDT [facility] CHLORIDE S/P/B 106 100 - 108 MMOL/L 07/09/2022 10:17 AM CDT [facility] CO2 25.5 21 - 32 MMOL/L 07/09/2022 10:17 AM CDT [facility] CALCIUM S/P/B 9.4 8.5 - 10.1 MG/DL 07/09/2022 10:[address] [facility] BILIRUBIN TOTAL S/P/B 0.4 0.2 - 1.2 MG/DL 07/09/2022 10:[address] [facility] Comment: THIS ASSAY IS NOT RECOMMENDED FOR PATIENTS UNDERGOING TREATMENT WITH ELTROMBOPAG DUE TO THE POTENTIAL FOR FALSELY ELEVATED RESULTS. TOTAL PROTEIN S/P/B 8.4(H) 6.4 - 8.2 G/DL 07/09/2022 10:[address] [facility] ALBUMIN S/P/B 4.3 3.4 - 5.0 G/DL 07/09/2022 10:[address] [facility] AST 33 15 - 37 U/L 07/09/2022 10:[address] [facility] ALT 64(H) 16 - 60 U/L 07/09/2022 10:[address] [facility] ALKALINE PHOSPHATASE S/P/B 59 50 - 136 U/L 07/09/2022 10:[address] [facility] ANION GAP 3.5(L) 5 - 15 MMOL/L 07/09/2022 10:[address] [facility] BUN CREATININE RATIO 13.2 6 - 26 07/09/2022 10:[address] [facility] A/G RATIO 1.0 1.0 - 2.0 RATIO 07/09/2022 10:[address] [facility] GFR ESTIMATE >90 >90 ML/MIN/1.7 3 M2 07/09/2022 10:[address] [facility] Comment: NOTE: eGFR is not calculated for patients <18 years of age. This is an estimated GFR calculation using the new CKD EPI creatinine equation without race and so does not require a correction factor for race. This estimated GFR should not be used for calculating drug doses. 07/09/2022 9:42 AM CDT us [facility] Final Resu lt [facility] [address] [place] [address], [place] [phone] * (ABNORMAL) CBC W/DIFF AUTOMATED (07/09/2022 9:42 AM CDT) [facility] WBC 8.0 4.5 - 11.0 x10'3/uL 07/09/2022 9:54 AM CDT [facility] RBC 4.97 4.70 - 6.10 x10'6/uL 07/09/2022 9:54 AM CDT [facility] HGB 14.5 14.0 - 18.0 G/DL 07/09/2022 9:54 AM CDT [facility] HCT 44.2 43.0 - 54.0 % 07/09/2022 9:54 AM CDT [facility] MCV 88.9 80.0 - 94.0 FL 07/09/2022 9:54 AM CDT [facility] MCH 29.2 27.0 - 31.0 PG 07/09/2022 9:54 AM CDT [facility] MCHC 32.8 32.0 - 36.0 G/DL 07/09/2022 9:54 AM CDT [facility] RDW 12.3 11.5 - 14.5 % 07/09/2022 9:54 AM CDT [facility] PLT 266 130 - 400 x10'3/uL 07/09/2022 9:54 AM CDT [facility] MPV 9.2(L) 9.3 - 12.2 FL 07/09/2022 9:54 AM CDT [facility] DIFFERENTIAL TYPE AUTOMATED DIFFERENTIAL 07/09/2022 9:54 AM CDT [facility] NEUTROPHILS % 63.1 % 07/09/2022 9:54 AM CDT [facility] LYMPHOCYTES % 28.2 % 07/09/2022 9:54 AM CDT [facility] MONOCYTES % 6.2 % 07/09/2022 9:54 AM CDT [facility] EOSINOPHILS 1.4 % 07/09/2022 9:54 AM CDT [facility] BASOPHILS 0.6 % 07/09/2022 9:54 AM CDT [facility] IMMATURE GRANS % 0.5 % 07/10/19 9:54 AM CDT [facility] ABS. NEUTROPHILS TOTAL 5.05 1.80 - 7.70 x10'3/uL 07/09/2022 9:54 AM CDT [facility] ABS. LYMPHOCYTES 2.26 1.00 - 4.80 x10'3/uL 07/09/2022 9:54 AM CDT [facility] ABS. MONOCYTES 0.50 0.30 - 0.82 x10'3/uL 07/09/2022 9:54 AM CDT [facility] ABS. EOSINOPHILS 0.11 0.04 - 0.54 x10'3/uL 07/09/2022 9:54 AM CDT [facility] ABS. BASOPHILS 0.05 0.01 - 0.08 x10'3/uL 07/09/2022 9:54 AM CDT [facility] ABS. IMMATURE GRANULOCYTES 0.04 0.00 - 0.49 x10'3/uL 07/09/2022 9:54 AM T [facility] 07/09/2022 9:42 AM CDT us Angélica Sexton PA LABORATORY Final Resu lt [facility] [address] [place] [address], * ECG 12 lead (07/09/2022 9:29 AM CDT) 07/09/2022 9:29 AM CDT Narrative [facility] JEREMY ANGELA (MIRA) RAD - 07/09/2022 9:30 AM CDT ?[facility] ? [facility] ? Test Date: ?2022-07-09 Pat Name: ? AMA REHMAN ?Department: ?? 41 ? Room: ? TG4TG4 Gender: ? Male ? Devulcanizer Head: ?? [id number] : ?1985 ? Requested By: DENIA Metzger Number: [id number] ? Reading : ?? Eder Romo ? Measurements Intervals ?Phyllis ? Rate: ? 86 ? P: ?9 GA: ? 149 ?QRS: ?31 QRSD: ? 83 ? T: ?48 QT: ? 348 ? QTc: ?418 ? Interpretive Statements SINUS RHYTHM Compared to ECG 10/17/2021 14:32:35 No significant changes Procedure Note Eder Romo MD - 07/09/2022 [facility] 250 [facility] Test Date: 2022-07-09 Pat Name: AMA REHMAN Department: 41 Room: [facility] Gender: Male Devulcanizer Head: [id number] : 1985 Requested By: DENIA DAHL Order Number: [id number] Reading MD: Eder Romo Measurements Intervals Phyllis Rate: 86 P: 9 GA: 149 QRS: 31 QRSD: 83 T: 48 [...] RN - Comment: pt took 2 asa INDUSTRIAL HYGIENE TECHNICIAN) methylPREDNISolone sodium succinate (SOLU-Medrol) injection 62.5 mg [...] RN) documented in this encounter Care Teams Ceramic Tile Installer Relationship Specialty Start Date End Date Starla Parham MD PCP - General FAMILY PRACTICE 11/17/20 documented as of this encounter
--- OUTSIDE RECORDS SUMMARY | 2024-04-04 20:05 | XMS_ITS | Clinical Summary ---
Author Organization [facility] Address [address] [place] [address]. [place], [place] [address] [place] [address] Care Team Providers Care Item Processor Name Role Phone Starla Parham MD Primary Care Provider [phone] Allergies Active Allergy Reactions Criticality Noted Date [...] age to complete this topic Insurance [facility] Care Teams Item Processor Relationship Specialty Start Date End Date Starla Parham MD PCP - General FAMILY PRACTICE 11/17/20
--- OUTSIDE RECORDS SUMMARY | 2024-04-04 20:05 | XMS_ITS | Encounter Summary ---
Author Organization [facility] Address [address] [place] [address]. [place], [place] [address] [place] [address] Care Team Providers Care Public Address Announcer Name Role Phone Yobany Manzanares MD Primary Care Provider [phone] Encounter Details Date Type Department Care Team [...] on filedocumented in this encounter Care Teams Public Address Announcer Relationship Specialty Start Date End Date Yobany Manzanares MD [address] [address] PCP - General INTERNAL MEDICINE 07/11/18 11/12/19 documented as of this encounter
--- OUTSIDE RECORDS SUMMARY | 2024-04-04 20:05 | XMS_ITS | Encounter Summary ---
Author Organization [facility] Address [address] [place] [address]. [place], [place] [address] [place] [address] Care Team Providers Care Sap Basis Architect Name Role Phone Starla Parham MD Primary Care Provider [phone] Reason for Referral * Imaging (Emergency) - Closed Specialty Diagnoses / Procedures Referred By Donavon braswell Referred To Contact RADIOLOGY Diagnoses Unspecified injury of right shoulder and upper arm, initial encounter Procedures MRI SHOULDER RT WO Mireille Romero DO Phone: tel: fax: Referral ID Status Reason Start Date Expiration Date Visits Re quested Visits Authorized [id number] Closed 12/30/2020 01/30/2022 1 1 Reason for Visit * Imaging (Emergency) - Closed Specialty Diagnoses / Procedures Referred By Donavon braswell Referred To Contact RADIOLOGY Diagnoses Unspecified injury of right shoulder and upper arm, initial encounter Procedures MRI SHOULDER RT WO Mireille Romero DO Phone: tel: fax: Referral ID Status Reason Start Date Expiration Date Visits Re quested Visits Authorized [id number] Closed 12/30/2020 01/30/2022 1 1 Encounter Details Date Type Department Care Team (Latest Contact Info) Description 12/30/2020 5:42 PM CDT - 12/30/2020 11:59 PM CDT Hospital Encounter [facility] MRI [facility] [place] [address] Mireille Corona, [address] [place] [address] Discharge Disposition: Home or Self Care (Routine [...] 11/05/2020 2 HYDROcodone-acetamin ophen 5-325 MG tabletIndications:Ac [place] Pain < 3 Day Supply Take 1 [...] By: Sanju Knight MD, 12/31/2020 1:55 PM Narrative 12/31/2020 [...] encounter documented in this encounter Care Teams Sap Basis Architect Relationship Specialty Start Date End Date Starla Parham MD PCP - General FAMILY PRACTICE 11/17/20 documented as of this encounter
--- OUTSIDE RECORDS SUMMARY | 2024-04-04 20:05 | XMS_ITS | Encounter Summary ---
Author Organization [facility] Address [address] [place] [address]. [place], [place] [address] [place] [address] Care Team Providers Care Desktop Support Manager Name Role Phone Starla Parham MD Primary Care Provider [phone] Encounter Details Date Type Department Care Team [...] on filedocumented in this encounter Care Teams Desktop Support Manager Relationship Specialty Start Date End Date Starla Parham MD PCP - General FAMILY PRACTICE 11/17/20 documented as of this encounter
--- OUTSIDE RECORDS SUMMARY | 2024-04-04 20:05 | XMS_ITS | Encounter Summary ---
Author Organization [facility] Address [address] [place] [address]. [place], [place] [address] [place] [address] Care Team Providers Care Financial Legal Assistant Name Role Phone Starla Parham MD Primary Care Provider [phone] Encounter Details Date Type Department Care Team [...] Coronavirus/COVID-19? No / Unsure 06/06/2022 3:31 PM RUG SHAMPOOER documented as of this encounter Plan of Treatment Not on file documented as of this encounter Visit Diagnoses Not on filedocumented in this encounter Additional Health Concerns Infection Onset Date Last Indicated Resolved Time COVID-19 Rule Out 06/06/2022 06/06/2022 06/06/2022 9:11 PM RUG SHAMPOOER COVID-19 Confirmed 06/06/2022 06/06/2022 12:32 AM CDT documented as of this encounter Care Teams Financial Legal Assistant Relationship Specialty Start Date End Date Starla Parham MD PCP - General FAMILY PRACTICE 11/17/20 documented as of this encounter
--- OUTSIDE RECORDS SUMMARY | 2024-04-04 20:05 | XMS_ITS | Encounter Summary ---
Author Organization [facility] Address [address] [place] [address]. [place], [place] [address] [place] [address] Care Team Providers Care Software Sales Name Role Phone Starla Parham MD Primary Care Provider [phone] Encounter Details Date Type Department Care Team [...] on filedocumented in this encounter Care Teams Software Sales Relationship Specialty Start Date End Date Satrla Parham MD PCP - General FAMILY PRACTICE 11/17/20 documented as of this encounter
--- OUTSIDE RECORDS SUMMARY | 2024-04-04 20:05 | XMS_ITS | Encounter Summary ---
Author Organization [facility] Address [address] [place] [address]. [place], [place] [address] [place] [address] Care Team Providers Care Thread Reeler Name Role Phone None, Provider MD Primary Care Provider Unavaila ble Reason for Referral * Imaging (Emergency) - Closed Specialty Diagnoses / Procedures Referred By Donavon t Referred To Contact RADIOLOGY Procedures CT ABD+PEL W CON [facility] [place] [address] Phone: tel: fax: Referral ID Status Reason Start Date Expiration Date Visits Re quested Visits Authorized [id number] Closed 11/05/2020 12/06/2021 1 1 Reason for Visit * Reason Comments Abdominal Pain Encounter Details Date Type Department Care Team (Late st Contact Info) Description 11/05/2020 2:14 AM CDT - 11/05/2020 8:06 AM CDT Emergency [facility] Emergency Room [place], [place] [id number] Sylvia Lyman MD [address] [place], [place] [address] Abdominal Pain Discharge Disposition: Home or Self [...] care by your primary care physician or senior energy consultant. Your medication list was reviewed prior [...] such as many narcotic drug combinations and zkxb-cxz-ywqadbf cold medicines. Dr. Lyman's Specific Instructions: After [...] * Severe Abdominal Pain Discharge Instructions, Adult (Cameroonian) * Gallstones Discharge Instructions (Cameroonian) documented in this encounter Medications at Time [...] 11/05/2020 2 HYDROcodone-acetamin ophen 5-325 MG tabletIndications:Ac [place] Pain < 3 Day Supply Take 1 [...] COLOR (U) LIGHT YELLOW TRANSPARENCY CLEAR Specific Leon (U) 1.025 1.001 - 1.030 U PH [...] ABD+PEL W CON Final Result by User, [email or web address] (11/05 600) EXAMINATION: CT ABDOMEN/PELVIS WITH CONTRAST [...] I dictated portions of this note using [employer] speech recognition software. Occasional wrong word or sound-alike substitutions may have occurred due to the inherent limitations of voice recognition software. Please read the chart carefully and recognize, using context, where the substitutions may have occurred. If there are any questions, please contact me via [employer] or other HIPAA compliant communication medium for [...] URINE CLEAN CATCH 11/05/2020 2:29 AM CDT [facility] COLOR (U) LIGHT YELLOW 11/05/2020 2:45 AM T [facility] TRANSPARENCY CLEAR 11/05/2020 2:[address] [facility] SPECIFIC GRAVITY (U) 1.025 1.001 - 1.030 11/05/2020 2:45 AM T [facility] U PH 5.5 5.0 - 9.0 11/05/2020 2:[address] [facility] LEUKOCYTES (U) NEGATIVE NEGATIVE 11/05/2020 2:45 AM T [facility] NITRITES NEGATIVE NEGATIVE 11/05/2020 2:[address] [facility] PROTEIN (U) NEGATIVE <30 MG/DL 11/05/2020 2:45 AM T [facility] URINE GLUCOSE NORMAL NORMAL MG/DL 11/05/2020 2:[address] [facility] KETONES MG/DL (U) NEGATIVE NEGATIVE MG/DL 11/05/2020 2:[address] [facility] UROBILINOGEN NORMAL NORMAL MG/DL 11/05/2020 2:[address] [facility] BILIRUBIN (U) NEGATIVE NEGATIVE MG/DL 11/05/2020 2:[address] [facility] BLOOD (U) NEGATIVE NEGATIVE 11/05/2020 2:[address] [facility] CULTURE & SENSITIVITY INDICATED? CULTURE IS NOT INDICATED 11/05/2020 2:[address] [facility] MUCUS RARE /LPF 11/05/2020 2:[address] [facility] RBC/HPF 2 <6 /HPF 11/05/2020 2:[address] [facility] URINE SPECIMEN OBTAINED BY CLEAN CATCH PROCEDURE / Unknown 11/05/2020 2:29 AM CDT us Sylvia Lyman MD URINE ORDERABLES Final Result Performing Organization Address City/[facility]/ZIP Co de Phone Number [facility] [address] [place] [address], [place] [phone] * LIPASE (11/05/2020 2:25 AM CDT) LIPASE 199 73 - 393 UNITS/L 11/05/2020 2:59 AM CDT [facility] 11/05/2020 2:25 AM CDT us Sylvia Lyman MD LABORATORY Final Result Performing Organization Address City/[facility] Co de Phone Number [facility] [address] [place] [address], [place] [phone] * (ABNORMAL) COMPREHENSIVE METABOLIC PANEL (11/05/2020 2:25 AM CDT) GLUCOSE 91 70 - 99 MG/DL 11/05/2020 2:59 AM CDT [facility] BUN 13 7 - 18 MG/DL 11/05/2020 2:59 AM CDT [facility] CREATININE S/P/B 0.98 0.7 - 1.3 MG/DL 11/05/2020 2:59 AM CDT [facility] SODIUM S/P/B 139 136 - 145 MMOL/L 11/05/2020 2:59 AM CDT [facility] POTASSIUM S/P/B 4.0 3.5 - 5.1 MMOL/L 11/05/2020 2:59 AM CDT [facility] CHLORIDE S/P/B 107 100 - 108 MMOL/L 11/05/2020 2:59 AM CDT [facility] CO2 29.6 21 - 32 MMOL/L 11/05/2020 2:59 AM CDT [facility] CALCIUM S/P/B 9.5 8.5 - 10.1 MG/DL 11/05/2020 2:59 AM CDT [facility] BILIRUBIN TOTAL S/P/B 0.2 0.2 - 1.2 MG/DL 11/05/2020 2:59 AM CDT [facility] Comment: THIS ASSAY IS NOT RECOMMENDED FOR PATIENTS UNDERGOING TREATMENT WITH ELTROMBOPAG DUE TO THE POTENTIAL FOR FALSELY ELEVATED RESULTS. TOTAL PROTEIN S/P/B 8.1 6.4 - 8.2 G/DL 11/05/2020 2:59 AM CDT [facility] ALBUMIN S/P/B 4.0 3.4 - 5.0 G/DL 11/05/2020 2:59 AM CDT [facility] AST 23 15 - 37 U/L 11/05/2020 2:59 AM CDT [facility] ALT 47 16 - 60 U/L 11/05/2020 2:59 AM CDT [facility] ALKALINE PHOSPHATASE S/P/B 62 50 - 136 U/L 11/05/2020 2:59 AM T [facility] ANION GAP 2.4(L) 5 - 15 MMOL/L 11/05/2020 2:59 AM CDT [facility] BUN CREATININE RATIO 13.3 6 - 26 11/05/2020 2:59 AM CDT [facility] A/G RATIO 1.0 1.0 - 2.0 RATIO 11/05/2020 2:59 AM T [facility] EGFR NON-AFR. AMER. >90 >90 ML/MIN/1.7 3 M2 11/05/2020 2:59 AM CDT [facility] EGFR AFR. AMER. >90 >90 ML/MIN/1.7 3 M2 11/05/2020 2:59 AM CDT [facility] Comment: NOTE: eGFR is not calculated for patients <18 years of age. This is an estimated GFR (CKD EPI) and should not be used for calculating drug doses. 11/05/2020 2:25 AM CDT Sylvia Lyman MD LABORATORY Final Result [facility] [address] [place] [address], * (ABNORMAL) CBC W/DIFF AUTOMATED (11/05/2020 2:25 AM CDT) WBC 8.4 4.5 - 11.0 x10'3/uL 11/05/2020 2:45 AM CDT [facility] RBC 4.98 4.70 - 6.10 x10'6/uL 11/05/2020 2:45 AM CDT [facility] HGB 14.1 14.0 - 18.0 G/DL 11/05/2020 2:45 AM CDT [facility] HCT 45.2 43.0 - 54.0 % 11/05/2020 2:45 AM CDT [facility] MCV 90.8 80.0 - 94.0 FL 11/05/2020 2:45 AM CDT [facility] MCH 28.3 27.0 - 31.0 PG 11/05/2020 2:45 AM CDT [facility] MCHC 31.2(L) 32.0 - 36.0 G/DL 11/05/2020 2:45 AM CDT [facility] RDW 12.6 11.5 - 14.5 % 11/05/2020 2:45 AM CDT [facility] PLT 298 130 - 400 x10'3/uL 11/05/2020 2:45 AM CDT [facility] MPV 9.5 9.3 - 12.2 FL 11/05/2020 2:45 AM CDT [facility] DIFFERENTIAL TYPE AUTOMATED DIFFERENTIAL 11/05/2020 2:45 AM CDT [facility] NEUTROPHILS % 45.2 % 11/05/2020 2:45 AM CDT [facility] LYMPHOCYTES % 44.3 % 11/05/2020 2:45 AM CDT [facility] MONOCYTES % 7.2 % 11/05/2020 2:45 AM CDT [facility] EOSINOPHILS 2.0 % 11/05/2020 2:45 AM CDT [facility] BASOPHILS 0.5 % 11/05/2020 2:45 AM CDT [facility] IMMATURE GRANS % 0.8 % 11/06/19 2:45 AM CDT [facility] ABS. NEUTROPHILS TOTAL 3.79 1.80 - 7.70 x10'3/uL 11/05/2020 2:45 AM CDT [facility] ABS. LYMPHOCYTES 3.71 1.00 - 4.80 x10'3/uL 11/05/2020 2:45 AM CDT [facility] ABS. MONOCYTES 0.60 0.30 - 0.82 x10'3/uL 11/05/2020 2:45 AM CDT [facility] ABS. EOSINOPHILS 0.17 0.04 - 0.54 x10'3/uL 11/05/2020 2:45 AM CDT [facility] ABS. BASOPHILS 0.04 0.01 - 0.08 x10'3/uL 11/05/2020 2:45 AM CDT [facility] ABS. IMMATURE GRANULOCYTES 0.07 0.00 - 0.49 x10'3/uL 11/05/2020 2:45 AM CDT [facility] 11/05/2020 2:25 AM CDT Sylvia Lyman MD LABORATORY Final Result [facility] [address] [place] [address], [place] [phone] documented in this encounter Visit Diagnoses Diagnosis [...] RTR) documented in this encounter Care Teams Thread Reeler Relationship Specialty Start Date End Date None, Provider, PCP - General 11/13/19 11/16/20 documented as of this encounter
--- OUTSIDE RECORDS SUMMARY | 2024-04-04 20:05 | XMS_ITS | Encounter Summary ---
Author Organization [facility] Address [address] [place] [address]. [place], [place] [address] [place] [address] Care Team Providers Care Weigh Machine Operator Name Role Phone Starla Parham MD Primary Care Provider [phone] Encounter Details Date Type Department Care Team [...] on filedocumented in this encounter Care Teams Weigh Machine Operator Relationship Specialty Start Date End Date Starla Parham MD PCP - General FAMILY PRACTICE 11/17/20 documented as of this encounter
--- OUTSIDE RECORDS SUMMARY | 2024-04-04 20:05 | XMS_ITS | Encounter Summary ---
Author Organization [facility] Address [address] [place] [address]. [place] [address] [place] [address] Care Team Providers Care Advertising Copywriter Name Role Phone Starla Parham MD Primary Care Provider [phone] Encounter Details Date Type Department Care Team (Late st Contact Info) Description 11/08/2021 Orders Only [facility] [address] [place], [place] [id number] Starla Parham MD [facility] [place], [place] [id number] Social History Tobacco Use Types Packs/Day Years [...] - 259 MG/DL 11/08/2021 4:44 PM CDT [facility] MICROALBUMIN (U) 1.9 <2.0 mg/dL 11/09/19 4:44 PM CDT [facility] ALBUMIN/CREAT RATIO 9.6 <30 MG/G 11/08/2021 4:44 PM CDT [facility] URINE SPECIMEN / Unknown 11/08/2021 3:29 PM CDT Starla Parham MD URINE ORDERABLES Final Result Performing Organization Address City/[facility] [address]/ZIP Co de Phone Number [facility] [address] [place] [address], [place] [phone] * TSH W/REFLEX (11/08/2021 3:23 PM CDT) TSH 2.860 0.358 - 3.74 uIU/ML 11/08/2021 4:21 PM CDT [facility] Comment: HIGH DOSES OF BIOTIN MAY INTERFERE WITH THIS TEST RESULT. CORRELATION TO CLINICAL HISTORY AND PRESENTATION RECOMMENDED. FREE T4 NOT INDICATED 11/08/2021 3:23 PM CDT us Starla Parham MD LABORATORY Final Result Performing Organization Address City/[facility] [address]/ZIP Co de Phone Number [facility] [address] [place] [address], [place] [phone] * (ABNORMAL) BASIC METABOLIC PANEL (11/08/2021 3:23 PM CDT) GLUCOSE 90 70 - 99 MG/DL 11/08/2021 4:21 PM CDT [facility] BUN 8 7 - 18 MG/DL 11/08/2021 4:21 PM CDT [facility] CREATININE S/P/B 0.93 0.7 - 1.3 MG/DL 11/08/2021 4:21 PM CDT [facility] SODIUM S/P/B 138 136 - 145 MMOL/L 11/08/2021 4:21 PM CDT [facility] POTASSIUM S/P/B 3.8 3.5 - 5.1 MMOL/L 11/08/2021 4:21 PM CDT [facility] CHLORIDE S/P/B 107 100 - 108 MMOL/L 11/08/2021 4:21 PM CDT [facility] CO2 27.1 21 - 32 MMOL/L 11/08/2021 4:21 PM CDT [facility] CALCIUM S/P/B 9.7 8.5 - 10.1 MG/DL 11/08/2021 4:21 PM CDT [facility] ANION GAP 3.9(L) 5 - 15 MMOL/L 11/08/2021 4:21 PM CDT [facility] BUN CREATININE RATIO 8.6 6 - 26 11/08/2021 4:21 PM CDT [facility] GFR ESTIMATE >90 >90 ML/MIN/1.7 3 M2 11/08/2021 4:21 PM CDT [facility] Comment: NOTE: eGFR is not calculated for patients <18 years of age. This is an estimated GFR calculation using the new CKD EPI creatinine equation without race and so does not require a correction factor for race. This estimated GFR should not be used for calculating drug doses. 11/08/2021 3:23 PM CDT us Starla Parham MD LABORATORY Final Result [facility] [address] [place] [address], [place] [phone] * CBC, AUTO, NO DIFF (11/08/2021 3:23 PM CDT) WBC 7.7 4.5 - 11.0 x10'3/uL 11/08/2021 3:43 PM CDT [facility] RBC 4.99 4.70 - 6.10 x10'6/uL 11/08/2021 3:43 PM CDT [facility] HGB 14.8 14.0 - 18.0 G/DL 11/08/2021 3:43 PM CDT [facility] HCT 44.5 43.0 - 54.0 % 11/08/2021 3:43 PM CDT [facility] MCV 89.2 80.0 - 94.0 FL 11/08/2021 3:43 PM CDT [facility] MCH 29.7 27.0 - 31.0 PG 11/08/2021 3:43 PM CDT [facility] MCHC 33.3 32.0 - 36.0 G/DL 11/08/2021 3:43 PM CDT [facility] RDW 12.4 11.5 - 14.5 % 11/08/2021 3:43 PM CDT [facility] PLT 290 130 - 400 x10'3/uL 11/08/2021 3:43 PM CDT [facility] MPV 9.8 9.3 - 12.2 FL 11/08/2021 3:43 PM CDT [facility] 11/08/2021 3:23 PM CDT us Starla Parham MD LABORATORY Final Result [facility] [address] [place] [address], [place] [phone] documented in this encounter Visit Diagnoses Diagnosis Essential (primary) hypertension- Primary Unspecified essential hypertension documented in this encounter Care Teams Advertising Copywriter Relationship Specialty Start Date End Date Starla Parham MD PCP - General FAMILY PRACTICE 11/17/20 documented as of this encounter
--- OUTSIDE RECORDS SUMMARY | 2024-04-04 20:05 | XMS_ITS | Encounter Summary ---
Author Organization [facility] Address [address] [place] [address]. [place], [place] [address] [place] [address] Care Team Providers Care Envelope Sealing Machine Operator Name Role Phone Starla Parham MD Primary Care Provider [phone] Reason for Visit * Reason Comments Ultrasound (SCAN) Encounter Details Date Type Department Care Team ([facility] Contact Info) Description 11/24/2020 Scan HEALTH [...] on filedocumented in this encounter Care Teams Envelope Sealing Machine Operator Relationship Specialty Start Date End Date Starla Parham MD PCP - General FAMILY PRACTICE 11/17/20 documented as of this encounter
--- OUTSIDE RECORDS SUMMARY | 2024-04-04 20:05 | XMS_ITS | Encounter Summary ---
Author Organization [facility] Address [facility]. [place], [place] [address] [place] [address] Care Team Providers Care Bridal Stylist Sales Consultant Name Role Phone Yobany Manzanares MD Primary Care Provider [phone] Reason for Referral * Imaging (Emergency) - Closed Specialty Diagnoses / Procedures Referred By Contac t Referred To Contact RADIOLOGY Procedures CT ABD+PEL W IV CON ONLY Carolee Gutierrez BRIDAL STYLIST SALES CONSULTANT Phone: tel: fax: Referral ID Status Reason Start Date Expiration Date Visits Re quested Visits Authorized [id number] Closed 10/11/2018 11/12/2019 1 1 Reason for Visit * Reason Comments Flank Pain Encounter Details Date Type Department Care Team (Late st Contact Info) Description 10/11/2018 5:55 PM CDT - 10/11/2018 9:45 PM CDT Emergency [facility] [place] [address] Carolee Gutierrez NP [address] [phone] Flank Pain Discharge Disposition: Home or Self [...] Acute Abdomen (Belly Pain) Discharge Instructions, Adult (Yakut) documented in this encounter Medications at Time [...] hematuria. 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 : 1985 Requested By: CAROLEE GUTIERREZ Order Number: [id number] Reading MD: Measurements Intervals [place] Rate: 96 P: 20 CO: 155 QRS: -15 QRSD: 85 T: 31 [...] IV CON ONLY Final Result by User, [id number] (10/11 2001) EXAMINATION: CT ABDOMEN AND PELVIS [...] XR CHEST PORTABLE Final Result by User, [id number] (10/11 1837) EXAMINATION: CHEST X-RAY ONE VIEW [...] INTERPRETATION Date: 10/11/18 Time: 1802 Interpretation: Inferior HI, age indeterminate VR: 96 QTc: 423 Ectopy : no Ekg interpretation provided by Dr Scott No ischemic changes Prior EKG for comparison 07/11/18, st no longer present. Normal intervals, no ectopy. Reviewed and scribed by me, BRIDAL STYLIST SALES CONSULTANT [LM] 1841 Vs noted, bp elevated on [...] needed., Starting 10/11/2018, Print Class: Print Pharmacy: [id number] [place], [place] - [address] AT [facility] (Ph #: [phone]) hydrocodone-acetaminophen (NORCO) 5-325 MG tablet Take 1 tablet by mouth nightly at bedtime., Starting 10/11/2018, Print Class: Print Pharmacy: [id number] - [place], [place] - [address] [facility] (Ph #: [phone]) Medications dextrose 50 % solution 25-50 mL [...] needed., Starting 10/11/2018, Print Class: Print Pharmacy: [facility]/pharmacy #[id number] - [place], [place] - [address] [facility] (Ph #: [phone]) hydrocodone-acetaminophen (NORCO) 5-325 MG tablet Take 1 tablet by mouth nightly at bedtime., Starting 10/11/2018, Print Class: Print Pharmacy: [facility]/pharmacy #[id number] - [place], [place] - [address] [facility] (Ph #: [phone]) Disposition: Discharge Follow-Up: Yobany Manzanares MD [address] [address] Schedule an appointment as soon as possible for a visit HOSEA DASILVA 10/11/2018 HOSEA Dasilva 10/11/18 [id number] Cosigned by Manuel Hardy MD at 10/12/2018 [...] By: Db Goodman MD, 10/11/2018 7:44 PM Carolee Paiz Veronica BRIDAL STYLIST SALES CONSULTANT CT Final Result * (ABNORMAL) ARTERIAL BLOOD GAS (10/11/2018 7:02 PM CDT) TIME TEST WAS PERFORMED: 1909 10/11/2018 7:[address] [facility] SAMPLE TYPE ARTERIAL 10/11/2018 7:[address] [facility] DRAW SITE RT RADIAL 10/11/2018 7:[address] [facility] OTHER SPATIAL SCIENTIST CODE 520,049 10/11/2018 7:[address] [facility] PH ARTERIAL 7.42 7.35 - 7.45 10/11/2018 7:[address] [facility] PCO2 43.9 35 - 45 MM HG 10/11/2018 7:[address] [facility] PO2 66.5(L) 80 - 100 MM HG 10/11/2018 7:[address] [facility] BICARB ARTERIAL 28.4(H) 21 - 28 MEQ/L 10/11/2018 7:[address] [facility] TCO2 29.7 MEQ/L 10/11/2018 7:[address] [facility] BE/BASE EXCESS 3.2(H) 0 - 2 MEQ/L 10/11/2018 7:[address] [facility] HEMOGLOBIN BLOOD GAS 14.8 14.0 - 18.0 G/DL 10/11/2018 7:[address] [facility] % O2 HEMOGLOBIN ARTERIAL 90.3(L) 95 - 100 % 10/11/2018 7:[address] [facility] CARBON MONOXIDE 0.8 <3.0 % 9 7:[address] [facility] METHEMOGLOBIN 0.6 0.4 - 1.5 % 10/11/2018 7:[address] [facility] O2 CONTENT 18.9 15 - 22 VOL% 10/11/2018 7:[address] [facility] AADO2 30.8 10/11/2018 7:[address] [facility] P/F RATIO (TIDAL VOL CALC) 317 10/11/2018 7:[address] [facility] 10/11/2018 7:02 PM CDT us Carolee Gutierrez NP LABORATORY Final Result [facility] [address] [place] [address], [place] [phone] * XR CHEST PORTABLE (10/11/2018 6:36 PM [...] - 99 mg/dL 10/11/2018 6:31 PM CDT [facility] ORDERS INTERFACE 10/11/2018 6:30 PM CDT Carolee Gutierrez BRIDAL STYLIST SALES CONSULTANT POCT ORDERABLES - DEVICE Marylu l Result Performing Organization Address City/[facility] Co de Phone Number [facility] ORDERS INTERFACE US * TROPONIN, QUANT (10/11/2018 6:24 PM CDT) Pathologist [facility] [place] TROPONIN I <0.015 <0.045 ng/mL. 10/11/2018 7:[address] [facility] Comment: HIGH DOSES OF BIOTIN MAY INTERFERE WITH THIS TEST RESULT. CORRELATION TO CLINICAL HISTORY AND PRESENTATION RECOMMENDED. 10/11/2018 6:24 PM CDT Carolee Gutierrez NP LABORATORY Final Result Performing Organization Address City/[facility]/ZIP Co de Phone Number [facility] [address] [place] [address], [place] [phone] * PHOSPHORUS, INORGANIC PHOSPHATE (10/11/2018 6:24 PM CDT) PHOSPHORUS 4.0 2.5 - 4.9 MG/DL 10/11/2018 7:[address] [facility] 10/11/2018 6:24 PM CDT Carolee Gutierrez BRIDAL STYLIST SALES CONSULTANT LABORATORY Final Result [facility] [address] [place] [address], [place] [phone] * (ABNORMAL) COMPREHENSIVE METABOLIC PANEL (10/11/2018 6:24 PM CDT) GLUCOSE 143(H) 70 - 99 MG/DL 10/11/2018 7:[address] [facility] BUN 11 7 - 18 MG/DL 10/11/2018 7:[address] [facility] CREATININE S/P/B 1.07 0.7 - 1.3 MG/DL 10/11/2018 7:[address] [facility] SODIUM S/P/B 139 136 - 145 MMOL/L 10/11/2018 7:[address] [facility] POTASSIUM S/P/B 3.3(L) 3.5 - 5.1 MMOL/L 10/11/2018 7:[address] [facility] CHLORIDE S/P/B 105 100 - 108 MMOL/L 10/11/2018 7:[address] [facility] CO2 27.1 21 - 32 MMOL/L 10/11/2018 7:[address] [facility] CALCIUM S/P/B 9.0 8.5 - 10.1 MG/DL 10/11/2018 7:[address] [facility] BILIRUBIN TOTAL S/P/B 0.5 0.2 - 1.2 MG/DL 10/11/2018 7:[address] [facility] TOTAL PROTEIN S/P/B 7.8 6.4 - 8.2 G/DL 10/11/2018 7:[address] [facility] ALBUMIN S/P/B 4.1 3.4 - 5.0 G/DL 10/11/2018 7:[address] [facility] AST 36 15 - 37 U/L 10/11/2018 7:[address] [facility] ALT 61(H) 16 - 60 U/L 10/11/2018 7:[address] [facility] ALKALINE PHOSPHATASE S/P/B 76 50 - 136 U/L 10/11/2018 7:[address] [facility] ANION GAP 6.9 5 - 15 MMOL/L 10/11/2018 7:[address] [facility] BUN CREATININE RATIO 10.3 6 - 26 10/11/2018 7:[address] [facility] A/G RATIO 1.1 1.0 - 2.0 RATIO 10/11/2018 7:05 PM [facility] EGFR NON-AFR. AMER. >90 >90 ML/MIN/1.7 3 M2 10/11/2018 7:[address] [facility] EGFR AFR. AMER. >90 >90 ML/MIN/1.7 3 M2 10/11/2018 7:[address] [facility] Comment: NOTE: eGFR is not calculated for patients <18 years of age. This is an estimated GFR (CKD EPI) and should not be used for calculating drug doses. 10/11/2018 6:24 PM CDT us Carolee Gutierrez NP LABORATORY Final Result [facility] [address] [place] [address], [place] [phone] * (ABNORMAL) LACTIC ACID (10/11/2018 6:24 PM CDT) Pathologist [facility] [place] LACTIC ACID VENOUS 2.1(H) 0.4 - 2.0 MMOL/L 10/11/2018 7:[address] [facility] 10/11/2018 6:24 PM CDT Carolee Gutierrez BRIDAL STYLIST SALES CONSULTANT LABORATORY Final Result [facility] [address] [place] [address], [place] [phone] * MAGNESIUM (10/11/2018 6:24 PM CDT) [facility] MAGNESIUM 2.0 1.8 - 2.4 MG/DL 10/11/2018 7:[address] [facility] 10/11/2018 6:24 PM CDT Carolee Gutierrez BRIDAL STYLIST SALES CONSULTANT LABORATORY Final Result [facility] [address] [place] [address], [place] [phone] * CBC W/DIFF AUTOMATED (10/11/2018 6:24 PM CDT) Pathologist [facility] [place] WBC 7.0 4.5 - 11.0 x10'3/uL 10/11/2018 6:[address] [facility] RBC 5.13 4.70 - 6.10 x10'6/uL 10/11/2018 6:[address] [facility] HGB 14.7 14.0 - 18.0 G/DL 10/11/2018 6:[address] [facility] HCT 45.6 43.0 - 54.0 % 10/11/2018 6:[address] [facility] MCV 88.9 80.0 - 94.0 FL 10/11/2018 6:[address] [facility] MCH 28.7 27.0 - 31.0 PG 10/11/2018 6:[address] [facility] MCHC 32.2 32.0 - 36.0 G/DL 10/11/2018 6:[address] [facility] RDW 11.9 11.5 - 14.5 % 10/11/2018 6:[address] [facility] PLT 260 130 - 400 x10'3/uL 10/11/2018 6:[address] [facility] MPV 9.9 9.3 - 12.2 FL 10/11/2018 6:[address] [facility] DIFFERENTIAL TYPE AUTOMATED DIFFERENTIAL 10/11/2018 6:[address] [facility] NEUTROPHILS % 59.9 % 10/11/2018 6:[address] [facility] LYMPHOCYTES % 32.0 % 10/11/2018 6:[address] [facility] MONOCYTES % 5.0 % 10/11/2018 6:[address] [facility] EOSINOPHILS 1.9 % 10/11/2018 6:[address] [facility] BASOPHILS 0.6 % 10/11/2018 6:[address] [facility] IMMATURE GRANS % 0.6 % 10/12/19 6:[address] [facility] ABS. NEUTROPHILS TOTAL 4.19 1.80 - 7.70 x10'3/uL 10/11/2018 6:[address] [facility] ABS. LYMPHOCYTES 2.24 1.00 - 4.80 x10'3/uL 10/11/2018 6:[address] [facility] ABS. MONOCYTES 0.35 0.30 - 0.82 x10'3/uL 10/11/2018 6:[address] [facility] ABS. EOSINOPHILS 0.13 0.04 - 0.54 x10'3/uL 10/11/2018 6:[address] [facility] ABS. BASOPHILS 0.04 0.01 - 0.08 x10'3/uL 10/11/2018 6:[address] [facility] ABS. IMMATURE GRANULOCYTES 0.04 0.00 - 0.49 x10'3/uL 10/11/2018 6:[address] [facility] 10/11/2018 6:24 PM CDT Carolee Gutierrez NP LABORATORY Final Result [facility] [address] [place] [address], * ECG 12 lead (10/11/2018 6:03 PM CDT) 10/11/2018 6:03 PM CDT Narrative [facility] ([facility] - 10/12/2018 7:02 PM CDT ?[facility] ? [address] [facility] ? Test Date: ?2018-10-11 Pat Name: ? AMA REHMAN ?Department: ? Room: ? EXAM09 Gender: ? Male ? Systems Software Developer: ?? cm : ?1985 ? Requested By: CAROLEE GUTIERREZ Order Number: [id number] ? Reading MD: ?? Chris Scally ? Measurements Intervals ?[place] ? Rate: ? 96 ? P: ?20 CO: ? 155 ?QRS: ?-15 QRSD: ? 85 ? T: ?31 QT: ? 335 ? QTc: ?423 ? Interpretive Statements SINUS RHYTHM INFERIOR MYOCARDIAL INFARCTION, OF INDETERMINATE AGE Compared to ECG 07/11/2018 14:45:48 Myocardial infarct finding now present Sinus tachycardia no longer present Jude Scott M.D. 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 No ischemic changes CRITICAL ALERT ISSUED ON 10-11-2018 18:08:02 us Carolee Gutierrez BRIDAL STYLIST SALES CONSULTANT ECG ORDERABLES Final Result [facility] * (ABNORMAL) Bedside Blood Glucose (10/11/2018 5:52 PM CDT) GLUCOSE WHOLE BLOOD 148(A) 70 - 100 mg/dL us Carolee Gutierrez BRIDAL STYLIST SALES CONSULTANT NURSING TREATMENT ORDERABLES - ONCE OR INTERVALS Final Result * (ABNORMAL) POCT glucose (10/11/2018 5:50 PM CDT) GLUCOSE POC 148(H) 70 - 99 mg/dL 10/11/2018 5:53 PM CDT [facility] ORDERS INTERFACE 10/11/2018 5:50 PM CDT us Attending Physician Emergency MD POCT ORDERABLES - DEVICE Final Result [facility] ORDERS INTERFACE US documented in this [...] RTR) documented in this encounter Care Teams Bridal Stylist Sales Consultant Relationship Specialty Start Date End Date Yobany Manzanares MD [address] [place] [address] PCP - General INTERNAL MEDICINE 07/11/18 11/12/19 documented as of this encounter
--- OUTSIDE RECORDS SUMMARY | 2024-04-04 20:05 | XMS_ITS | Encounter Summary ---
Author Organization [facility] Address [address] [place] [address]. [place] [address] [place] [address] Care Team Providers Care Sr Community Manager Name Role Phone Starla Parham MD Primary Care Provider [phone] Reason for Visit * Reason Onset Date Comments Advice 12/30/2020 Encounter Details Date Type Department Care Team (Late st Contact Info) Description 12/30/[address] [facility] Multispecialty [facility] - [facility] [address] [facility] [address] [place] [id number] Oscar Christopher MD [address] [place], [place] [address] Advice Social History Tobacco Use Types Packs/Day [...] comp injury we have to have workcomp information/billing/freight adjuster etc as well as permission in [...] on filedocumented in this encounter Care Teams Sr Community Manager Relationship Specialty Start Date End Date Starla Parham MD PCP - General FAMILY PRACTICE 11/17/20 documented as of this encounter
--- OUTSIDE RECORDS SUMMARY | 2024-04-04 20:05 | XMS_ITS | Encounter Summary ---
Author Organization [facility] Address [address] [place] [address]. [place], [place] [id number] [place] [address] Care Team Providers Care Certified Wellness Program Coordinator Name Role Phone Starla Parham MD Primary Care Provider [phone] Reason for Referral * Imaging (Routine) - Closed Specialty Diagnoses / Procedures Referred By Radhaac t Referred To Contact RADIOLOGY Diagnoses Calculus of gallbladder without cholecystitis without obstruction Procedures US ABD LIMITED López Rapp MD [address] [address] Phone: tel: fax: Referral ID Status Reason Start Date Expiration Date Visits Re quested Visits Authorized [id number] Closed 11/11/2020 12/12/2021 1 1 Reason for Visit * Imaging (Routine) - Closed Specialty Diagnoses / Procedures Referred By Donavon braswell Referred To Contact RADIOLOGY Diagnoses Calculus of gallbladder without cholecystitis without obstruction Procedures US ABD LIMITED López Rapp MD [address] [address] Phone: tel: fax: Referral ID Status Reason Start Date Expiration Date Visits Re quested Visits Authorized [id number] Closed 11/11/2020 12/12/2021 1 1 Encounter Details Date Type Department Care Team ([facility] st Contact Info) Description 11/24/2020 9:30 AM CDT - 11/24/2020 11:59 PM CDT Hospital Encounter [facility] [address] [place] [address] López Rapp MD 3 [facility] [address] [place] [id number] Discharge Disposition: Home or Self Care (Routine [...] obstruction documented in this encounter Care Teams Certified Wellness Program Coordinator Relationship Specialty Start Date End Date Starla Parham MD PCP - General FAMILY PRACTICE 11/17/20 documented as of this encounter
--- OUTSIDE RECORDS SUMMARY | 2024-04-04 20:05 | XMS_ITS | Encounter Summary ---
Author Organization [facility] Address [address] [place] [address]. [place], [place] [address] [place] [id number] Care Team Providers Care Suction Dredge Dumping Supervisor Name Role Phone Starla Parham MD Primary Care Provider Encounter Details Date [...] COVID-19? No / Unsure 04/11/2021 3:18 PM [employer] documented as of this encounter Plan of Treatment Not on file documented as of this encounter Visit Diagnoses Not on filedocumented in this encounter Care Teams Suction Dredge Dumping Supervisor Relationship Specialty Start Date End Date Starla Parham MD PCP - General FAMILY PRACTICE 11/17/20 documented as of this encounter
--- OUTSIDE RECORDS SUMMARY | 2024-04-04 20:05 | XMS_ITS | Encounter Summary ---
Author Organization [facility] Address [address] [place] [address]. [place], [place] [address] [place] [address] Care Team Providers Care Airline Reservationist Name Role Phone Starla Parham MD Primary Care Provider [phone] Reason for Referral * Imaging (Routine) - Closed Specialty Diagnoses / Procedures Referred By Contac t Referred To Contact RADIOLOGY Diagnoses Disease of gallbladder Procedures NM HEPATOBILIARY SCAN W/GB EJECTION FRACTION Oscar Ann MD [address] [place] [address] Phone: tel: fax: Referral ID Status Reason Start Date Expiration Date Visits Re quested Visits Authorized [id number] Closed 11/29/2020 12/30/2021 1 1 Reason for Visit * Imaging (Routine) - Closed Specialty Diagnoses / Procedures Referred By Contac t Referred To Contact RADIOLOGY Diagnoses Disease of gallbladder Procedures NM HEPATOBILIARY SCAN W/GB EJECTION FRACTION Oscar Ann MD [address] [place] [address] Phone: tel: fax: Referral ID Status Reason Start Date Expiration Date Visits Re quested Visits Authorized [id number] Closed 11/29/2020 12/30/2021 1 1 Encounter Details Date Type Department Care Team (Latest Contact Info) Description 01/06/2021 8:00 AM CDT - 01/06/2021 11:59 PM CDT Hospital Encounter [facility] Nuclear Medicine [facility] [place] [address] Oscar Ann MD [address] [facility] [address] [place] [address] Discharge Disposition: Home or Self Care (Routine [...] 11/05/2020 2 HYDROcodone-acetamin ophen 5-325 MG tabletIndications:Ac nunakauyarmiut Pain < 3 Day Supply Take 1 [...] Arm documented in this encounter Care Teams Airline Reservationist Relationship Specialty Start Date End Date Starla Parham MD PCP - General FAMILY PRACTICE 11/17/20 documented as of this encounter
--- OUTSIDE RECORDS SUMMARY | 2024-04-04 20:05 | XMS_ITS | Encounter Summary ---
Author Organization [facility] Address [address] [place] [address]. [place], [place] [address] [place] [address] Care Team Providers Care Prawn Trawler Hand Name Role Phone Starla Parham MD Primary Care Provider [phone] Reason for Visit * Reason Onset Date Comments Referral 01/18/2021 Returned Call 01/18/2021 Encounter Details Date Type Department Care Team (Late st Contact Info) Description 01/18/2021 Telephone [facility] Multispecialty Care - [address], [address] [place] [id number] Tamir Manuel MD [address] [place] [address] [address] [place] [address] Referral; Returned Call Social History Tobacco Use [...] Would like a call back to discuss [phone] * Rossy Bah - 01/23/2021 8:54 AM [...] on filedocumented in this encounter Care Teams Prawn Trawler Hand Relationship Specialty Start Date End Date Starla Parham MD PCP - General FAMILY PRACTICE 11/17/20 documented as of this encounter
--- OUTSIDE RECORDS SUMMARY | 2024-04-04 20:05 | XMS_ITS | Encounter Summary ---
Author Organization [facility] Address [address] [place] [address]. [place], [place] [address] [place] [address] Care Team Providers Care Director Of Instrumental Music Name Role Phone Starla Parham MD Primary Care Provider [phone] Encounter Details Date Type Department Care Team [...] filedocumented in this encounter Care Teams Director Of Instrumental Music Relationship Specialty Start Date End Date Starla Parham MD PCP - General FAMILY PRACTICE 11/17/20 documented as of this encounter
--- OUTSIDE RECORDS SUMMARY | 2024-04-04 20:05 | XMS_ITS | Encounter Summary ---
Author Organization [facility] Address [address] [place] [address]. [place], [place] [address] [place] [address] Care Team Providers Care Client Program Manager Name Role Phone Starla Parham MD Primary Care Provider [phone] Reason for Visit * Reason Comments Flu Like Symptoms Encounter Details Date Type Department Care Team (Latest Contact Info) Description 06/06/2022 3:32 PM DIRECTOR OF REVENUE - 06/06/2022 5:33 PM DIRECTOR OF REVENUE Hospital Encounter [facility] Care [address] [place] [address] Penelope Barfield, TELECOMMUNICATIONS ADMINISTRATOR [address] [place] [address] Flu Like Symptoms Discharge Disposition: Home [...] Coronavirus/COVID-19? No / Unsure 06/06/2022 3:31 PM DIRECTOR OF REVENUE documented as of this encounter Last Filed Vital Signs Vital Sign Reading Time Taken Comments Blood Pressure 140/95 06/06/2022 5:13 PM DIRECTOR OF REVENUE Pulse 110 06/06/2022 5:10 PM DIRECTOR OF REVENUE Temperature 37.8 ??C (100 ??F) 06/06/2022 5:10 PM DIRECTOR OF REVENUE Respiratory Rate 18 06/06/2022 5:10 PM DIRECTOR OF REVENUE Oxygen Saturation 100% 06/06/2022 5:10 PM DIRECTOR OF REVENUE Inhaled Oxygen Concentration - - Weight 136.1 kg (300 lb) 06/06/2022 3:42 PM DIRECTOR OF REVENUE Height 180.3 cm (5' 11 ) 06/06/2022 3:42 PM DIRECTOR OF REVENUE Body Mass Index 41.84 06/06/2022 3:42 PM DIRECTOR OF REVENUE documented in this encounter Discharge Instructions * Attachments The following attachments cannot be sent through Care Everywhere. * Viral Syndrome Discharge Instructions (Tristanian) documented in this encounter Medications at Time [...] fatigue and cough. 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 He is agreeable to starting a course of Paxlovid for the next5 days. Past results were reviewed and GFR was more than 90 about 6 months ago. Prescription calledin for Paxlovid to [facility] pharmacy. CTOR OF REVENUE documented in this encounter ED Notes * Aleksandra Elizalde MD - 06/06/2022 3:47 PM CST [place], [place] HISTORICAL INFORMATION Primary Care Doctor: Starla [...] 20 tablet, Refills: 0 Class: Eprescribe Pharmacy: [facility]/pharmacy #[id number] [place] [address] [facility] ( #: [phone]) CAIO Koo NP 06/06/22 1730 Left voicemail for patient regarding interaction between atorvastatin and Paxlovid. Advised to takeThe dose of atorvastatin while being on Paxlovid for the next 7 days and to resume the full dose after that. Aleksandra Elizalde MD 06/07/22 0830 CTOR OF REVENUE CTOR OF REVENUE CTOR OF REVENUE * Irvin North RN - 06/06/2022 3:42 PM CST Patient to CC with c/o sore throat, fever, body aches, fatigue, onset yesterday. Last tylenol at 1300. CTOR OF REVENUE documented in this encounter Plan of Treatment Not on file documented as of this encounter Procedures Procedure Name Priority Date/Time Associated Diagnosis Comments POCT BEDSIDE BLOOD GLUCOSE STAT 06/06/2022 4:25 PM DIRECTOR OF REVENUE POCT GLUCOSE - LOCKE DOCKED DEVICE Routine 06/06/2022 4:13 PM DIRECTOR OF REVENUE RAPID STREP A STAT 06/06/2022 3:45 PM DIRECTOR OF REVENUE CORONAVIRUS (COVID-19) INFLUENZA A & B ANTIGEN IA PANEL STAT 06/06/2022 3:42 PM DIRECTOR OF REVENUE documented in this encounter Results * Bedside Blood Glucose (06/06/2022 4:25 PM DIRECTOR OF REVENUE) GLUCOSE WHOLE BLOOD 88 70 - 100 mg/dL Penelope Barfield NP NURSING TREATMENT ORDERABLES - ONCE OR INTERVALS Edited Result - Final * POCT glucose (06/06/2022 4:13 PM DIRECTOR OF REVENUE) GLUCOSE POC 88 70 - 99 mg/dL 06/06/2022 4:27 PM DIRECTOR OF REVENUE [facility] 06/06/2022 4:13 PM DIRECTOR OF REVENUE Penelope Barfield NP POCT ORDERABLES - DEVICE Final Result Performing Organization Address City/[facility]/ZIP Co de Phone Number [facility] [address] [place] [address], * RAPID STREP A (06/06/2022 3:45 PM DIRECTOR OF REVENUE) SPECIMEN TYPE THROAT 06/06/2022 3:46 PM DIRECTOR OF REVENUE [facility] RAPID STREP TEST NEGATIVE NEGATIVE 06/07/2022 8:53 AM DIRECTOR OF REVENUE [facility] STRUCTURE OF ANTERIOR PORTION OF NECK / Unknown 06/06/2022 3:45 PM DIRECTOR OF REVENUE Penelope Barfield NP MICROBIOLOGY - GENERAL OR DERABLES Final Result [facility] [place] [address], * (ABNORMAL) CORONAVIRUS (COVID-19) INFLUENZA A & B ANTIGEN IA PANEL (06/06/2022 3:42 PM DIRECTOR OF REVENUE) CORONAVIRUS ANTIGEN IA POSITIVE(AA ) NEGATIVE 06/06/2022 9:11 PM DIRECTOR OF REVENUE [facility] Comment: THIS TEST HAS BEEN AUTHORIZED BY THE FDA UNDER AN EMERGENCY USE AUTHORIZATION (EUA) FOR USE BY AUTHORIZED LABORATORIES. Successful Call: [id number] called 06/06/2022 09:11 PM to PENELOPE BARFIELD NP ( /JONATHAN CHARLES) by [id number]. INFLUENZA A NEGATIVE NEGATIVE 06/06/2022 9:11 PM DIRECTOR OF REVENUE [facility] INFLUENZA B NEGATIVE NEGATIVE 06/06/2022 9:11 PM DIRECTOR OF REVENUE [facility] Comment: Interpretation: Negative for Influenza [...] order. SPECIMEN TYPE NASAL 06/06/2022 3:46 PM DIRECTOR OF REVENUE [facility] FIRST TEST NO 06/06/2022 3:46 PM DIRECTOR OF REVENUE [facility] EMPLOYED IN HEALTHCARE NO 06/06/2022 3:46 PM DIRECTOR OF REVENUE [facility] SYMPTOMATIC DEFINED BY CDC YES 06/06/2022 3:46 PM DIRECTOR OF REVENUE [facility] DATE OF SYMPTOM ONSET [id number] 06/06/2022 3:46 PM DIRECTOR OF REVENUE [facility] HOSPITALIZATION STATUS NO 06/06/2022 3:46 PM DIRECTOR OF REVENUE [facility] RESIDENT OF CONGREGATE CARE NO 06/06/2022 3:46 PM DIRECTOR OF REVENUE [facility] NASAL STRUCTURE / Unknown 06/06/2022 3:42 PM DIRECTOR OF REVENUE Penelope Barfield TELECOMMUNICATIONS ADMINISTRATOR MICROBIOLOGY - GENERAL OR DERABLES Final Result [facility] [address] [place] [address], [facility] [address] [place] [address], documented in this encounter Visit Diagnoses Diagnosis [...] Sat06/06/22 at 1730 Given 06/06/2022 5:13 PM DIRECTOR OF REVENUE 800 mg ondansetron (ZOFRAN) 4 MG/2ML injection 1 dose, Starting on Sat06/06/22 at 1603, Until Sat06/06/22 at 1624, Created by cabinet override ondansetron (ZOFRAN) injection 4 mg 4 mg, Intravenous, Once, 1 dose, On Sat06/06/22 at 1630, IV push over 2-5 minutes. Given 06/06/2022 4:24 PM DIRECTOR OF REVENUE 4 mg sodium chloride 0.9 % infusion 1 dose, Starting on Sat06/06/22 at 1603, Until Sat06/06/22 at 1711, Created by cabinet override sodium chloride 0.9% bolus infusion 1,000 mL 1,000 mL, Intravenous, Administer over 30 Minutes, Once, 1 dose, On Sat06/06/22 at 1630 New Bag 06/06/2022 4:24 PM DIRECTOR OF REVENUE 1,000 mLs documented in this encounter Active and Recently Administered Medications Times are shown in DIRECTOR OF REVENUE. Scheduled Medication Order 06/04/2022 06/05/2022 06/06/2022 ibuprofen [...] Rule Out 06/06/2022 06/06/2022 06/06/2022 9:11 PM DIRECTOR OF REVENUE documented as of this encounter Care Teams Client Program Manager Relationship Specialty Start Date End Date Starla Parham MD PCP - General FAMILY PRACTICE 11/17/20 documented as of this encounter
--- OUTSIDE RECORDS SUMMARY | 2024-04-04 20:05 | XMS_ITS | Encounter Summary ---
Author Organization [facility] Address [address] [place] [address]. [place], [place] [address] [place] [address] Care Team Providers Care Avionics Systems Engineer Name Role Phone Starla Parham MD Primary [...] on filedocumented in this encounter Care Teams Avionics Systems Engineer Relationship Specialty Start Date End Date Starla Parham MD PCP - General FAMILY PRACTICE 11/17/20 documented as of this encounter
--- OUTSIDE RECORDS SUMMARY | 2024-04-04 20:05 | XMS_ITS | Encounter Summary ---
Author Organization [facility] Address [address] [place] [address]. [place], [place] [address] [place] [address] Care Team Providers Care Document Manager Name Role Phone Starla Parham MD [...] on filedocumented in this encounter Care Teams Document Manager Relationship Specialty Start Date End Date Starla Parham MD PCP - General FAMILY PRACTICE 11/17/20 documented as of this encounter
--- OUTSIDE RECORDS SUMMARY | 2024-04-04 20:05 | XMS_ITS | Encounter Summary ---
Author Organization [facility] Address [address] [place] [address]. [place], [place] [address] [place] [address] Care Team Providers Care Internet And E Business Project Manager Name Role Phone Starla Parham MD Primary Care Provider [phone] Encounter Details Date Type Department Care Team [...] on filedocumented in this encounter Care Teams Internet And E Business Project Manager Relationship Specialty Start Date End Date Starla Parham MD PCP - General FAMILY PRACTICE 11/17/20 documented as of this encounter
--- OUTSIDE RECORDS SUMMARY | 2024-04-04 20:05 | XMS_ITS | Encounter Summary ---
Author Organization [facility] Address [address] [place] [address]. [place], [place] [address] [place] [address] Care Team Providers Care Grape Crusher Name Role Phone Starla Parham MD Primary Care Provider [phone] Reason for Visit * Reason Comments Ear Problem Encounter Details Date Type Department Care Team (Latest Contact Info) Description 10/31/2021 5:27 PM CDT - 10/31/2021 5:54 PM CDT Hospital Encounter [facility] [place] [facility] Care [address] [place] [address] Carlos Mccarty MD [address] [place] [address] Ear Problem Discharge Disposition: Home [...] Everywhere. * Serous Otitis Media Discharge Instructions (Croatian) documented in this encounter Medications at Time [...] Mccarty MD - 10/31/2021 5:54 PM CDT [facility] Urgent Care- '[place], [place] HISTORICAL INFORMATION Primary Care Doctor: Starla Parham [...] TABLET DAY SIX, Eprescribe Class: Eprescribe Pharmacy: [id number] - [address] AT [facility] [address] (Ph #: [phone]) MD Carlos MADISON MD 11/22/21 1638 * [...] media documented in this encounter Care Teams Grape Crusher Relationship Specialty Start Date End Date Starla Parham MD PCP - General FAMILY PRACTICE 11/17/20 documented as of this encounter
--- OUTSIDE RECORDS SUMMARY | 2024-04-04 20:05 | XMS_ITS | Encounter Summary ---
Author Organization [facility] Address [address] [place] [address]. [place], [place] [address] [place] [address] Care Team Providers Care General Production Manager Name Role Phone Starla Parham MD Primary Care Provider [phone] Reason for Visit * Reason Comments Shortness Of Breath Encounter Details Date Type Department Care Team ([facility] st Contact Info) Description 10/17/2021 2:26 PM CDT - 10/17/2021 6:48 PM CDT Emergency [facility] [place] [address] Yobany Cid PA [address] [place] [address] Shortness Of Breath Discharge Disposition: Home [...] Atypical Pneumonia (Mycoplasma and Viral) Discharge Instructions (Sri Lankan) documented in this encounter Medications at Time [...] encounter of 10/17/21 ECG 12 lead Narrative [facility] Test Date: 2021-10-17 Pat Name: AMA REHMAN Department: 41 Room: Gender: Male Truck 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 : 1985 Requested By: MAIDA PATTERSON Order Number: [id number] Reading MD: Vel Gan Measurements Intervals [place] Rate: 92 P: 26 WI: 144 QRS: 38 QRSD: 84 T: 55 [...] XR CHEST PORTABLE Final Result by User, [id number] (10/17 1415) Examination: Chest x-ray 1 view [...] 4 puff (4 puffs Inhalation Given 10/17/21 8065) Clinical Impression Atypical pneumonia (Primary) Discharge Medication List as of 10/17/2021 6:41 PM START taking these medications Details albuterol sulfate HFA 108 (90 Base) MCG/ACT inhaler Inhale 2 puffs into the lungs every 6 (six) hours as needed for Wheezing., Starting Sat10/17/2021, Eprescribe Class: Eprescribe Pharmacy: [facility]/pharmacy #[address] [place] [address], [place] - [address] [facility] (Ph #: [phone]) azithromycin (ZITHROMAX) 250 MG tablet Take 2 tablets by mouth on day one then 1 daily for four days., Eprescribe Class: Eprescribe Pharmacy: [facility]/pharmacy #[address] [place] [address], [place] - [address] [facility] (Ph #: [phone]) benzonatate (TESSALON PERLES) 100 MG capsule Take 1 capsule (100 mg total) by mouth 3 (three) timesdaily as needed for Cough., Starting Sat10/17/2021, Until Sat10/24/2021 at 2359, Eprescribe Class: Eprescribe Pharmacy: [facility]/pharmacy #[address] [place] [address] - [address] [facility] (Ph #: [phone]) Disposition: Discharge Follow-Up: Starla Parham MD [address] [place] [phone] Schedule an appointment as soon as possible for a visit in 1 week As needed DIVYA Wellington 10/18/2021 DIVYA [place] 10/18/21 0133 Cosigned by Charleen Reed MD at 10/18/2021 8:08 PM CDT * DIVYA Nichole - 10/17/2021 1:11 PM CDT [place], [place] EMERGENCY DEPARTMENT ENCOUNTER Medical Screening Examination [...] - 500 ng{FEU}/mL 10/17/2021 3:42 PM CDT [facility] Comment: D-Dimer values less than [...] [facility] Final Result Performing Organization Address City/[facility]/ZIP Co de Phone Number [facility] [address] [place] [address], [place] [phone] * TROPONIN, QUANT (10/17/2021 2:43 PM CDT) Pathologist [facility] TROPONIN I HIGH SENSITIVITY 4 <79 ng/L 10/17/2021 3:48 PM CDT [facility] Comment: HIGH DOSES OF BIOTIN, TROPONIN-SPECIFIC AUTOANTIBODIES, AND ANTIBODY THERAPY CONTAINING HAMA MAY INTERFERE WITH THIS TEST RESULT. CORRELATION TO CLINICAL HISTORY AND PRESENTATION RECOMMENDED. 10/17/2021 2:43 PM CDT [facility] Final Result [facility] [address] [place] [address], [place] [phone] * (ABNORMAL) COMPREHENSIVE METABOLIC PANEL (10/17/2021 2:43 PM CDT) [facility] GLUCOSE 103(H) 70 - 99 MG/DL 10/17/2021 3:48 PM CDT [facility] BUN 14 7 - 18 MG/DL 10/17/2021 3:48 PM CDT [facility] CREATININE S/P/B 1.00 0.7 - 1.3 MG/DL 10/17/2021 3:48 PM CDT [facility] SODIUM S/P/B 140 136 - 145 MMOL/L 10/17/2021 3:48 PM CDT [facility] POTASSIUM S/P/B 3.9 3.5 - 5.1 MMOL/L 10/17/2021 3:48 PM CDT [facility] CHLORIDE S/P/B 106 100 - 108 MMOL/L 10/17/2021 3:48 PM CDT [facility] CO2 25.6 21 - 32 MMOL/L 10/17/2021 3:48 PM CDT [facility] CALCIUM S/P/B 8.8 8.5 - 10.1 MG/DL 10/17/2021 3:48 PM CDT [facility] BILIRUBIN TOTAL S/P/B 0.2 0.2 - 1.2 MG/DL 10/17/2021 3:48 PM CDT [facility] Comment: THIS ASSAY IS NOT RECOMMENDED FOR PATIENTS UNDERGOING TREATMENT WITH ELTROMBOPAG DUE TO THE POTENTIAL FOR FALSELY ELEVATED RESULTS. TOTAL PROTEIN S/P/B 7.9 6.4 - 8.2 G/DL 10/17/2021 3:48 PM CDT [facility] ALBUMIN S/P/B 4.1 3.4 - 5.0 G/DL 10/17/2021 3:48 PM CDT [facility] AST 23 15 - 37 U/L 10/17/2021 3:48 PM CDT [facility] ALT 47 16 - 60 U/L 10/17/2021 3:48 PM CDT [facility] ALKALINE PHOSPHATASE S/P/B 59 50 - 136 U/L 10/17/2021 3:48 PM CDT [facility] ANION GAP 8.4 5 - 15 MMOL/L 10/17/2021 3:48 PM CDT [facility] BUN CREATININE RATIO 14.0 6 - 26 10/17/2021 3:48 PM CDT [facility] A/G RATIO 1.1 1.0 - 2.0 RATIO 10/17/2021 3:48 PM CDT [facility] GFR ESTIMATE >90 >90 ML/MIN/1.7 3 M2 10/17/2021 3:48 PM CDT [facility] Comment: NOTE: eGFR is not calculated for patients <18 years of age. This is an estimated GFR calculation using the new CKD EPI creatinine equation without race and so does not require a correction factor for race. This estimated GFR should not be used for calculating drug doses. 10/17/2021 2:43 PM CDT [facility] Final Result [facility] [address] [place] [address], [place] [phone] * CBC W/DIFF AUTOMATED (10/17/2021 2:43 PM CDT) WBC 9.0 4.5 - 11.0 x10'3/uL 10/17/2021 3:19 PM CDT [facility] RBC 4.99 4.70 - 6.10 x10'6/uL 10/17/2021 3:19 PM CDT [facility] HGB 14.8 14.0 - 18.0 G/DL 10/17/2021 3:19 PM CDT [facility] HCT 45.3 43.0 - 54.0 % 10/17/2021 3:19 PM CDT [facility] MCV 90.8 80.0 - 94.0 FL 10/17/2021 3:19 PM CDT [facility] MCH 29.7 27.0 - 31.0 PG 10/17/2021 3:19 PM CDT [facility] MCHC 32.7 32.0 - 36.0 G/DL 10/17/2021 3:19 PM CDT [facility] RDW 12.6 11.5 - 14.5 % 10/17/2021 3:19 PM CDT [facility] PLT 294 130 - 400 x10'3/uL 10/17/2021 3:19 PM CDT [facility] MPV 9.6 9.3 - 12.2 FL 10/17/2021 3:19 PM CDT [facility] DIFFERENTIAL TYPE AUTOMATED DIFFERENTIAL 10/17/2021 3:19 PM CDT [facility] NEUTROPHILS % 51.2 % 10/17/2021 3:19 PM CDT [facility] LYMPHOCYTES % 37.5 % 10/17/2021 3:19 PM CDT [facility] MONOCYTES % 7.3 % 10/17/2021 3:19 PM CDT [facility] EOSINOPHILS 1.4 % 10/17/2021 3:19 PM CDT [facility] BASOPHILS 0.7 % 10/17/2021 3:19 PM CDT [facility] IMMATURE GRANS % 1.9 % 07/19/20 22 3:19 PM CDT [facility] ABS. NEUTROPHILS TOTAL 4.62 1.80 - 7.70 x10'3/uL 10/17/2021 3:19 PM CDT [facility] ABS. LYMPHOCYTES 3.38 1.00 - 4.80 x10'3/uL 10/17/2021 3:19 PM CDT [facility] ABS. MONOCYTES 0.66 0.30 - 0.82 x10'3/uL 10/17/2021 3:19 PM CDT [facility] ABS. EOSINOPHILS 0.13 0.04 - 0.54 x10'3/uL 10/17/2021 3:19 PM CDT [facility] ABS. BASOPHILS 0.06 0.01 - 0.08 x10'3/uL 10/17/2021 3:19 PM CDT [facility] ABS. IMMATURE GRANULOCYTES 0.17 0.00 - 0.49 x10'3/uL 10/17/2021 3:19 PM CDT [facility] 10/17/2021 2:43 PM CDT [facility] Final Result [facility] [address] [place] [address], * ECG 12 lead (10/17/2021 2:32 PM CDT) 10/17/2021 2:32 PM CDT Narrative [facility] - 10/17/2021 4:41 PM CDT ?[facility] [place] ? [address], [place] ? Test Date: ?2021-10-17 Pat Name: ? AMABRITTANI REHMAN ?Department: ?? 41 ? Room: ? Gender: ? Male ? Truck Jumper: ?? BW : ?1985 ? Requested By: MAIDA PATTERSON Order Number: [id number] ? Reading MD: ?? Vel Malik ? Measurements Intervals ?[place] ? Rate: ? 92 ? P: ?26 WI: ? 144 ?QRS: ?38 QRSD: ? 84 ? T: ?55 QT: ? 353 ? QTc: ?438 ? Interpretive Statements SINUS RHYTHM Compared to ECG 11/13/2019 20:53:29 No significant changes Preliminary EKG interpretation by ED Physician No ischemic changes Carolee Martin APRN CRITICAL ALERT ISSUED ON 10-17-2021 14:53:50 Procedure Note Vel Gan MD - 10/17/[address] 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 ([facility] RAD * XR CHEST PORTABLE (10/17/2021 2:11 [...] 1435 (Given - Provid er: Livan Leahy, INVESTMENT BANKING ASSOCIATE) documented in this encounter Care Teams General Production Manager Relationship Specialty Start Date End Date Starla Parham MD PCP - General FAMILY PRACTICE 11/17/20 documented as of this encounter
--- OUTSIDE RECORDS SUMMARY | 2024-04-04 20:05 | XMS_ITS | Encounter Summary ---
Author Organization [facility] Address [address] [place] [address]. [place] [address] [place] [address] Care Team Providers Care Float Builder Name Role Phone Starla Parham MD Primary Care Provider [phone] Reason for Visit * Reason Comments URI Encounter Details Date Type Department Care Team (Latest Contact Info) Description 10/10/2021 5:37 PM CDT - 10/10/2021 7:23 PM CDT Hospital Encounter [facility] [address] [place] [address] Justice Sexton PA [address] [place] [id number] URI Discharge Disposition: Home or Self Care [...] Follow up on test results tomorrow with [facility] mychart Take steroid as directed. Get plenty of rest, drink plenty of fluids. Take tylenol or motrin as needed for pain and/or fever. Go to the ER if symptoms worsen. * Attachments The following attachments cannot be sent through Care Everywhere. * Bronchitis, Adult ED ([place]) documented in this encounter Medications at Time [...] DIVYA Blair - 10/10/2021 6:49 PM CDT [place], [place] HISTORICAL INFORMATION Primary Care Doctor: Starla Parham MD Patient information was obtained primarily from the patient, nursing notes, History/Exam limitations: None Provider at Bedside Date/Time Event User Comments 10/10/21 8738 Provider at Bedside Assessing Patient JUSTICE SEXTON -- CHIEF COMPLAINT URI HPI Osacr Rehman is a 35-year-old male who presents to the [facility] care for cough, fatigue. Pt states in [...] XR CHEST PA+LAT Final Result by User, [id number] (10/10 070) PROCEDURE: XR CHEST PA+LAT. 10/10/2021 6:20 PM. [...] and validated. Please refer to the exit creative writer discharge instructions for details surrounding the [...] IA NEGATIVE NEGATIVE 10/10/2021 8:43 PM CDT [facility] Comment: NEGATIVE RESULTS SHOULD BE TREATED [...] A NEGATIVE NEGATIVE 10/10/2021 8:[address] [facility] INFLUENZA B NEGATIVE NEGATIVE 10/10/2021 8:[address] [facility] Comment: Interpretation: Negative for Influenza A [...] SPECIMEN TYPE NASAL 10/10/2021 6:11 PM CDT [facility] CARE FIRST TEST NO 10/10/2021 6:11 PM CDT [facility] EMPLOYED IN HEALTHCARE NO 10/10/2021 6:11 PM CDT [facility] SYMPTOMATIC DEFINED BY CDC YES 10/10/2021 6:11 PM CDT [facility] DATE OF SYMPTOM ONSET 2021101110/10/2021 6:11 PM CDT [facility] HOSPITALIZATION STATUS NO 10/10/2021 6:11 PM CDT [facility] NO 10/10/2021 6:11 PM CDT [facility] NASAL STRUCTURE / Unknown 10/10/2021 6:12 PM CDT us Justice [facility]CRO[facility] - GENERAL ORD ERABLES Final Result [facility] [address] [place] [address], [facility] [address] [place] [address], documented in this encounter Visit Diagnoses Diagnosis Bronchitis- Primary Bronchitis, not specified as acute or chronic documented in this encounter Additional Health Concerns Infection Onset Date Last Indicated Resolved Time COVID-19 Rule Out 10/10/2021 10/10/2021 10/10/2021 8:43 PM CDT documented as of this encounter Care Teams Float Builder Relationship Specialty Start Date End Date Starla Parham MD PCP - General FAMILY PRACTICE 11/17/20 documented as of this encounter
--- OUTSIDE RECORDS SUMMARY | 2024-04-04 20:05 | XMS_ITS | Encounter Summary ---
Author Organization [facility] Address [address] [place] [address]. [place], [place] [address] [place] [address] Care Team Providers Care Serging Machine Operator Name Role Phone None, Provider Primary Care Provider Unavaila ble Reason for Visit * Reason Comments Hyperglycemia Vomiting Encounter Details Date Type Department Care Team ([facility] Contact Info) Description 11/13/2019 8:22 PM CDT - 11/14/2019 12:38 AM CDT Emergency [facility] [place] [address] Maida Rivera, DIVYA [address] [place], [place] [id number] Hyperglycemia; Vomiting Discharge Disposition: Home or Self [...] - 11/14/2019 12:10 AM CDT Please call [facility] clinic first thing Saturday morning and as [...] care by your primary care physician or intelligence consultant.Please mention to your follow-up physician that [...] such as many narcotic drug combinations and [id number] cold medicines. --Again, it was a pleasure taking care of you. * Attachments The following attachments cannot be sent through Care Everywhere. * Nausea and Vomiting Discharge Instructions, Adult ([place]) documented in this encounter Medications at Time [...] DIVYA Nichole - 11/13/2019 9:58 PM CDT [place], [place] EMERGENCY DEPARTMENT ENCOUNTER Chief Complaint Chief Complaint Patient presents with ??? Hyperglycemia ??? Vomiting History of Present Illness Provider at Bedside Date/Time Event User Comments 11/13/19 4900 Provider at Bedside Assessing Patient VINITA HAND History provided by: Patient associate research scientist used: No Hyperglycemia Associated symptoms: fatigue and [...] and vomiting. Pt was recently hospitalized at [facility] for 1 week due to an [...] ECG [address] [facility]porfirio Mckenna [address] [place] [address] Test Date: 2019-11-13 Pat Name: AMA REHMAN Department: Room: [facility] Gender: Male Folding Rules Printing Machine Operator: ALMITA : 1985 Requested By: VINITA HAND Order Number: [id number] Reading MD: Vel Gan Measurements Intervals Orosi Rate: 96 P: 32 TN: 157 QRS: 0 QRSD: 87 T: 29 [...] COLOR (U) LIGHT YELLOW TRANSPARENCY TURBID Specific [place] (U) 1.029 1.001 - 1.030 U PH [...] NEGATIVE [AD] 2259 EKG rate 96 bpm TN 157 QTc 438 No ischemic changes, read [...] Hand APRN - 11/13/2019 5:47 PM CDT [place], [place] EMERGENCY DEPARTMENT ENCOUNTER Medical Screening Examination [...] errors as this chart was documented using Areshay, a dictation software. Vinita Hand APRN 11/13/19 [...] - 393 UNITS/L 11/13/2019 10:17 PM CDT [facility] 11/13/2019 9:02 PM CDT Vinita Hand APRN LABORATORY Final Result Performing Organization Address [facility]/ZIP Co de Phone Number [facility] [address] [place] [address], [place] [phone] * TROPONIN, QUANT (11/13/2019 9:02 PM CDT) TROPONIN I <0.015 <0.045 ng/mL. 11/13/2019 10:17 PM CDT [facility] Comment: HIGH DOSES OF BIOTIN MAY INTERFERE WITH THIS TEST RESULT. CORRELATION TO CLINICAL HISTORY AND PRESENTATION RECOMMENDED. 11/13/2019 9:02 PM CDT Vinita Hand APRN LABORATORY Final Result [facility] [address] [place] [address], * URINALYSIS (11/13/2019 9:02 PM CDT) SPECIMEN TYPE URINE CLEAN CATCH 11/13/2019 9:10 PM CDT [facility] COLOR (U) LIGHT YELLOW 11/13/2019 9:27 PM CDT [facility] TRANSPARENCY TURBID 11/13/2019 9:27 PM CDT [facility] SPECIFIC GRAVITY (U) 1.029 1.001 - 1.030 11/13/2019 9:27 PM CDT [facility] U PH 6.5 5.0 - 9.0 11/13/2019 9:27 PM CDT [facility] LEUKOCYTES (U) NEGATIVE NEGATIVE 11/13/2019 9:27 PM CDT [facility] NITRITES NEGATIVE NEGATIVE 11/13/2019 9:27 PM CDT [facility] PROTEIN (U) 10 <30 MG/DL 11/13/2019 9:27 PM CDT [facility] URINE GLUCOSE NORMAL NORMAL MG/DL 11/13/2019 9:27 PM CDT [facility] KETONES MG/DL (U) NEGATIVE NEGATIVE MG/DL 11/13/2019 9:27 PM CDT [facility] UROBILINOGEN NORMAL NORMAL MG/DL 11/13/2019 9:27 PM CDT [facility] BILIRUBIN (U) NEGATIVE NEGATIVE MG/DL 11/13/2019 9:27 PM CDT [facility] BLOOD (U) NEGATIVE NEGATIVE 11/13/2019 9:27 PM CDT [facility] CULTURE & SENSITIVITY INDICATED? CULTURE IS NOT INDICATED 11/13/2019 9:27 PM CDT [facility] URINE SPECIMEN OBTAINED BY CLEAN CATCH PROCEDURE / Unknown 11/13/2019 9:02 PM CDT Vinita Hand SHEAR OPERATOR HELPER URINE ORDERABLES Final Result [facility] [address] [place] [address], * (ABNORMAL) COMPREHENSIVE METABOLIC PANEL (11/13/2019 9:02 PM CDT) Pathologist [facility] GLUCOSE 99 70 - 99 MG/DL 11/13/2019 10:17 PM CDT [facility] BUN 12 7 - 18 MG/DL 11/13/2019 10:17 PM CDT [facility] CREATININE S/P/B 1.06 0.7 - 1.3 MG/DL 11/13/2019 10:17 PM CDT [facility] SODIUM S/P/B 139 136 - 145 MMOL/L 11/13/2019 10:17 PM CDT [facility] POTASSIUM S/P/B 3.5 3.5 - 5.1 MMOL/L 11/13/2019 10:17 PM CDT [facility] CHLORIDE S/P/B 106 100 - 108 MMOL/L 11/13/2019 10:17 PM CDT [facility] CO2 27.0 21 - 32 MMOL/L 11/13/2019 10:17 PM CDT [facility] CALCIUM S/P/B 9.0 8.5 - 10.1 MG/DL 11/13/2019 10:17 PM CDT [facility] BILIRUBIN TOTAL S/P/B 0.1(L) 0.2 - 1.2 MG/DL 11/13/2019 10:17 PM CDT [facility] Comment: THIS ASSAY IS NOT RECOMMENDED FOR PATIENTS UNDERGOING TREATMENT WITH ELTROMBOPAG DUE TO THE POTENTIAL FOR FALSELY ELEVATED RESULTS. TOTAL PROTEIN S/P/B 7.5 6.4 - 8.2 G/DL 11/13/2019 10:17 PM CDT [facility] ALBUMIN S/P/B 4.0 3.4 - 5.0 G/DL 11/13/2019 10:17 PM CDT [facility] AST 35 15 - 37 U/L 11/13/2019 10:17 PM CDT [facility] ALT 52 16 - 60 U/L 11/13/2019 10:17 PM CDT [facility] ALKALINE PHOSPHATASE S/P/B 84 50 - 136 U/L 11/13/2019 10:17 PM T [facility] ANION GAP 6.0 5 - 15 MMOL/L 11/13/2019 10:17 PM T [facility] BUN CREATININE RATIO 11.3 6 - 26 11/13/2019 10:17 PM CDT [facility] A/G RATIO 1.1 1.0 - 2.0 RATIO 11/13/2019 10:17 PM T [facility] EGFR NON-AFR. AMER. >90 >90 ML/MIN/1.7 3 M2 11/13/2019 10:17 PM CDT [facility] EGFR AFR. AMER. >90 >90 ML/MIN/1.7 3 M2 11/13/2019 10:17 PM T [facility] Comment: NOTE: eGFR is not calculated for patients <18 years of age. This is an estimated GFR (CKD EPI) and should not be used for calculating drug doses. 11/13/2019 9:02 PM CDT us Vinita Hand SHEAR OPERATOR HELPER LABORATORY Final Result [facility] [address] [place] [address], [place] [phone] * CBC W/DIFF AUTOMATED (11/13/2019 9:02 PM CDT) [facility] Signature WBC 7.4 4.5 - 11.0 x10'3/uL 11/13/2019 9:32 PM CDT [facility] RBC 4.76 4.70 - 6.10 x10'6/uL 11/13/2019 9:32 PM CDT [facility] HGB 14.2 14.0 - 18.0 G/DL 11/13/2019 9:32 PM CDT [facility] HCT 43.3 43.0 - 54.0 % 11/13/2019 9:32 PM CDT [facility] MCV 91.0 80.0 - 94.0 FL 11/13/2019 9:32 PM CDT [facility] MCH 29.8 27.0 - 31.0 PG 11/13/2019 9:32 PM CDT [facility] MCHC 32.8 32.0 - 36.0 G/DL 11/13/2019 9:32 PM CDT [facility] RDW 11.9 11.5 - 14.5 % 11/13/2019 9:32 PM CDT [facility] PLT 284 130 - 400 x10'3/uL 11/13/2019 9:32 PM CDT [facility] MPV 10.1 9.3 - 12.2 FL 11/13/2019 9:32 PM CDT [facility] DIFFERENTIAL TYPE AUTOMATED DIFFERENTIAL 11/13/2019 9:32 PM CDT [facility] NEUTROPHILS % 44.5 % 11/13/2019 9:32 PM CDT [facility] LYMPHOCYTES % 44.0 % 11/13/2019 9:32 PM CDT [facility] MONOCYTES % 8.9 % 11/13/2019 9:32 PM CDT [facility] EOSINOPHILS 1.7 % 11/13/2019 9:32 PM CDT [facility] BASOPHILS 0.4 % 11/13/2019 9:32 PM CDT [facility] IMMATURE GRANS % 0.5 % 11/13/19 20 9:32 PM CDT [facility] ABS. NEUTROPHILS TOTAL 3.31 1.80 - 7.70 x10'3/uL 11/13/2019 9:32 PM CDT [facility] ABS. LYMPHOCYTES 3.27 1.00 - 4.80 x10'3/uL 11/13/2019 9:32 PM CDT [facility] ABS. MONOCYTES 0.66 0.30 - 0.82 x10'3/uL 11/13/2019 9:32 PM CDT [facility] ABS. EOSINOPHILS 0.13 0.04 - 0.54 x10'3/uL 11/13/2019 9:32 PM CDT [facility] ABS. BASOPHILS 0.03 0.01 - 0.08 x10'3/uL 11/13/2019 9:32 PM CDT [facility] ABS. IMMATURE GRANULOCYTES 0.04 0.00 - 0.49 x10'3/uL 11/13/2019 9:32 PM CDT [facility] 11/13/2019 9:02 PM CDT us Vinita Hand SHEAR OPERATOR HELPER LABORATORY Final Result [facility] [address] [place] [address], * ECG 12 lead (11/13/2019 8:53 PM CDT) 11/13/2019 8:53 PM CDT Narrative [facility] ANGELA ([facility]) RAD - 11/14/2019 8:07 AM CDT ?[place]`porfirio Mckenna ? [address] [place] ? Test Date: ?2019-11-13 Pat Name: ? AMA LEO ?Department: ? Room: ? EXAM15 Gender: ? Male ? Folding Rules Printing Machine Operator: ?? GDD : ?1985 ? Requested By: VINITA MAMTACATHERINE Order Number: [id number] ? Reading MD: ?? Vel Gan ? Measurements Intervals ?Orosi ? Rate: ? 96 ? P: ?32 TN: ? 157 ?QRS: ?0 QRSD: ? 87 ? T: ?29 QT: ? 346 ? QTc: ?438 ? Interpretive Statements SINUS RHYTHM Compared to ECG 10/11/2018 18:03:16 No significant changes Preliminary EKG interpretation by ED Physician No ischemic changes Cleveland Navarro M.D. CRITICAL ALERT ISSUED ON 11-13-2019 20:57:47 Procedure Note Vel Gan MD - 11/14/[address] Test Date: 2019-11-13 Pat Name: AMA REHMAN Department: Room: [facility] Gender: Male Folding Rules Printing Machine Operator: ALMITA : 1985 Requested By: VINITA HAND Order Number: [id number] Reading MD: Vel Gan Measurements Intervals Orosi Rate: 96 P: 32 TN: 157 QRS: 0 QRSD: 87 T: 29 QT: 346 QTc: 438 Interpretive Statements SINUS RHYTHM Compared to ECG 10/11/2018 18:03:16 No significant changes Preliminary EKG interpretation by ED Physician No ischemic changes Cleveland Navarro M.D. CRITICAL ALERT ISSUED ON 11-13-2019 20:57:47 Vinita Hand SHEAR OPERATOR HELPER ECG ORDERABLES Final Result [facility] PEGUERO ([place]) RAD * (ABNORMAL) POCT glucose (11/13/2019 5:43 PM CDT) GLUCOSE POC 163(H) 70 - 99 mg/dL 11/13/2019 5:50 PM CDT [facility] ORDERS INTERFACE 11/13/2019 5:43 PM CDT Attending Physician Emergency MD POCT ORDERABLES - DEVICE Final Result [facility] ORDERS INTERFACE US documented in this [...] RN) documented in this encounter Care Teams Serging Machine Operator Relationship Specialty Start Date End Date None, Provider, PCP - General 11/13/19 11/16/20 documented as of this encounter
--- OUTSIDE RECORDS SUMMARY | 2024-04-04 20:05 | XMS_ITS | Encounter Summary ---
Author Organization [facility] Address [address] [place] [address]. [place], [place] [address] [place] [address] Care Team Providers Care Residential Leasing Manager Name Role Phone Starla Parham MD Primary Care Provider [phone] Encounter Details Date Type Department Care Team [...] documented as of this encounter Care Teams Residential Leasing Manager Relationship Specialty Start Date End Date Starla Parham MD PCP - General FAMILY PRACTICE 11/17/20 documented as of this encounter
--- OUTSIDE RECORDS SUMMARY | 2024-04-04 20:05 | XMS_ITS | Encounter Summary ---
Author Organization [facility] Address [facility]. [place], [place] [address] [place] [address] Care Team Providers Care Senior Ux Designer Name Role Phone Starla Parham MD Primary Care Provider [phone] Reason for Referral * Imaging (Emergency) - Closed Specialty Diagnoses / Procedures Referred By Contac t Referred To Contact RADIOLOGY Procedures CT HEAD WO CON Olvin Elmore PA [address] [place] [address] Phone: tel: fax: Referral ID Status Reason Start Date Expiration Date Visits Re quested Visits Authorized [id number] Closed 04/11/2021 05/12/2022 1 1 LL PERFORMER Reason for Visit * Reason Comments Head Injury Encounter Details Date Type Department Care Team (Late st Contact Info) Description 04/11/2021 3:39 PM THRILL PERFORMER - 04/11/2021 4:57 PM THRILL PERFORMER Emergency [facility] [place] [address] Olvin Elmore PA [address] [place] [address] Head Injury Discharge Disposition: Home or [...] COVID-19? No / Unsure 04/11/2021 3:18 PM THRILL PERFORMER documented as of this encounter Last Filed Vital Signs Vital Sign Reading Time Taken Comments Blood Pressure 139/91 04/11/2021 4:51 PM THRILL PERFORMER Pulse 82 04/11/2021 4:51 PM THRILL PERFORMER Temperature 36.8 ??C (98.2 ??F) 04/11/2021 4:51 PM CS T Respiratory Rate 16 04/11/2021 4:51 PM THRILL PERFORMER Oxygen Saturation 97% 04/11/2021 4:51 PM THRILL PERFORMER Inhaled Oxygen Concentration - - Weight 131.1 kg (289 lb) 04/11/2021 3:24 PM THRILL PERFORMER Height 180.3 cm (5' 11 ) 04/11/2021 3:24 PM THRILL PERFORMER Body Mass Index 40.31 04/11/2021 3:24 PM THRILL PERFORMER documented in this encounter Discharge Instructions * Discharge Instructions* DIVYA Rodriguez - 04/11/2021 4:39 PM THRILL PERFORMER Follow-up with primary care in the next 7 days for reevaluation Return if symptoms worsen or concerns or any lightheadedness dizziness nausea vomiting weakness Follow-up patient education sheets LL PERFORMER * Attachments The following attachments cannot be sent through Care Everywhere. * Concussion Discharge Instructions, Adult (Bangladeshi) documented in this encounter Medications at Time [...] DIVYA Rodriguez - 04/11/2021 4:33 PM CST [place], [place] EMERGENCY DEPARTMENT ENCOUNTER HISTORICAL INFORMATION Primary [...] HEAD WO CON Final Result by User, [id number] (04/11 1602) DATE: 04/11/2021 3:35 PM EXAMINATION: [...] Medication List DIVYA Rodriguez PA 04/11/21 1639 LL PERFORMER * Arsenio Morales RN - 04/11/2021 3:27 PM CST PT came into the ED with c/o head injury. PT reports he his his head on a metal shelf yesterday andcan't remember much after the incident. PT report feeling out of it. PT reports some nausea. PT vitals stable at this time. PT A&OX4. LL PERFORMER documented in this encounter Plan of Treatment Not on file documented as of this encounter Procedures Procedure Name Priority Date/Time Associated Diagnosis Comments CT HEAD WO CON STAT 04/11/2021 3:35 PM THRILL PERFORMER documented in this encounter Results * CT HEAD WO CON (04/11/2021 3:35 PM THRILL PERFORMER) Anatomical Region Laterality Modality Head Computed Tomogra phy 04/11/2021 4:00 PM THRILL PERFORMER Impressions 04/11/2021 4:02 PM THRILL PERFORMER IMPRESSION: 1. No definite CT evidence of acute intracranial abnormality, as above. Ordered By: OLVIN ELMORE Interpreted By: Samuel Anguiano MD, 04/11/2021 4:00 PM Narrative 04/11/2021 4:02 PM THRILL PERFORMER DATE: 04/11/2021 3:35 PM EXAMINATION: CT of [...] unspecified documented in this encounter Care Teams Senior Ux Designer Relationship Specialty Start Date End Date Starla Parham MD PCP - General FAMILY PRACTICE 11/17/20 documented as of this encounter
--- OUTSIDE RECORDS SUMMARY | 2024-04-04 20:05 | XMS_ITS | Encounter Summary ---
Author Organization [facility] Address [address] [place] [address]. [place], [place] [address] [place] [address] Care Team Providers Care Hyperbaric Tech Name Role Phone Starla Parham MD Primary Care Provider [phone] Encounter Details Date Type Department Care Team [...] on filedocumented in this encounter Care Teams Hyperbaric Tech Relationship Specialty Start Date End Date Starla Parham MD PCP - General FAMILY PRACTICE 11/17/20 documented as of this encounter
--- OUTSIDE RECORDS SUMMARY | 2024-04-04 20:05 | XMS_ITS | Encounter Summary ---
Author Organization [facility] Address [facility]. [place], [place] [address] [place] [address] Care Team Providers Care Lieutenant/Deputy Name Role Phone Starla Parham MD Primary Care Provider [phone] Reason for Visit * Reason Comments Head Injury Encounter Details Date Type Department Care Team (Latest Contact Info) Description 04/11/2021 2:23 PM OBIEE OBIA SOLUTION ARCHITECT - 04/11/2021 3:16 PM OBIEE OBIA SOLUTION ARCHITECT Hospital Encounter [address] [address] Kane Gomez MD [address] [place] [address] Head Injury Discharge Disposition: Transfer to [...] Coronavirus / COVID-19? Yes 04/11/2021 1:56 PM OBIEE OBIA SOLUTION ARCHITECT documented as of this encounter Last Filed Vital Signs Vital Sign Reading Time Taken Comments Blood Pressure 141/90 04/11/2021 2:25 PM OBIEE OBIA SOLUTION ARCHITECT Pulse 88 04/11/2021 2:25 PM OBIEE OBIA SOLUTION ARCHITECT Temperature 36.3 ??C (97.4 ??F) 04/11/2021 2:25 PM CS T Respiratory Rate 18 04/11/2021 2:25 PM OBIEE OBIA SOLUTION ARCHITECT Oxygen Saturation 98% 04/11/2021 2:25 PM OBIEE OBIA SOLUTION ARCHITECT Inhaled Oxygen Concentration - - Weight - [...] treatment. Offered patient to be transported to [facility] or patient declined, will call his brother who will pick him up and drive him in private car. Patient's current status, transport, clinical symptoms communicated with ER staff, physician. Kane Gomez MD 04/11/21 1509 E OBIA SOLUTION ARCHITECT * Estrada Torres RN - 04/11/2021 2:25 [...] drive. Pt has normal speech and gait. E OBIA SOLUTION ARCHITECT documented in this encounter Plan of Treatment Not on file documented as of this encounter Visit Diagnoses Diagnosis Intractable acute post-traumatic headache- Primary Acute post-traumatic headache Nausea Nausea alone Transient memory loss Memory loss Injury of head, initial encounter documented in this encounter Care Teams Lieutenant/Deputy Relationship Specialty Start Date End Date Starla Parham MD PCP - General FAMILY PRACTICE 11/17/20 documented as of this encounter
--- OUTSIDE RECORDS SUMMARY | 2024-04-04 20:05 | XMS_ITS | Encounter Summary ---
Author Organization [facility] Address [address] [place] [address]. [place], [place] [address] [place] [address] Care Team Providers Care Extension Course Counselor Name Role Phone Starla Parham MD Primary Care Provider [phone] Encounter Details Date Type Department Care Team (Latest Contact Info) Description 11/08/2021 3:18 PM CDT - 11/08/2021 11:59 PM CDT Hospital Encounter [facility] [place] [address] Starla Parham MD [address] [place] [address] Discharge Disposition: Home or Self Care [...] - 259 MG/DL 11/08/2021 4:44 PM CDT [facility] MICROALBUMIN (U) 1.9 <2.0 mg/dL 11/09/19 4:44 PM CDT [facility] ALBUMIN/CREAT RATIO 9.6 <30 MG/G 11/08/2021 4:44 PM CDT [facility] URINE SPECIMEN / Unknown 11/08/2021 3:29 PM CDT Starla Parham MD URINE ORDERABLES Final Result Performing Organization Address City/[facility]/ZIP Co de Phone Number [facility] [address] [place] [address], [place] [phone] * TSH W/REFLEX (11/08/2021 3:23 PM CDT) TSH 2.860 0.358 - 3.74 uIU/ML 11/08/2021 4:21 PM CDT [facility] Comment: HIGH DOSES OF BIOTIN MAY INTERFERE WITH THIS TEST RESULT. CORRELATION TO CLINICAL HISTORY AND PRESENTATION RECOMMENDED. FREE T4 NOT INDICATED 11/08/2021 3:23 PM CDT Starla Parham MD LABORATORY Final Result Performing Organization Address [facility] Co de Phone Number [facility] [address] [place] [address], [place] [phone] * (ABNORMAL) BASIC METABOLIC PANEL (11/08/2021 3:23 PM CDT) GLUCOSE 90 70 - 99 MG/DL 11/08/2021 4:21 PM CDT [facility] BUN 8 7 - 18 MG/DL 11/08/2021 4:21 PM CDT [facility] CREATININE S/P/B 0.93 0.7 - 1.3 MG/DL 11/08/2021 4:21 PM CDT [facility] SODIUM S/P/B 138 136 - 145 MMOL/L 11/08/2021 4:21 PM CDT [facility] POTASSIUM S/P/B 3.8 3.5 - 5.1 MMOL/L 11/08/2021 4:21 PM CDT [facility] CHLORIDE S/P/B 107 100 - 108 MMOL/L 11/08/2021 4:21 PM CDT [facility] CO2 27.1 21 - 32 MMOL/L 11/08/2021 4:21 PM CDT [facility] CALCIUM S/P/B 9.7 8.5 - 10.1 MG/DL 11/08/2021 4:21 PM CDT [facility] ANION GAP 3.9(L) 5 - 15 MMOL/L 11/08/2021 4:21 PM CDT [facility] BUN CREATININE RATIO 8.6 6 - 26 11/08/2021 4:21 PM CDT [facility] GFR ESTIMATE >90 >90 ML/MIN/1.7 3 M2 11/08/2021 4:21 PM CDT [facility] Comment: NOTE: eGFR is not calculated for patients <18 years of age. This is an estimated GFR calculation using the new CKD EPI creatinine equation without race and so does not require a correction factor for race. This estimated GFR should not be used for calculating drug doses. 11/08/2021 3:23 PM CDT Starla Parham MD LABORATORY Final Result [facility] [address] [place] [address], [place] [phone] * CBC, AUTO, NO DIFF (11/08/2021 3:23 PM CDT) WBC 7.7 4.5 - 11.0 x10'3/uL 11/08/2021 3:43 PM CDT [facility] RBC 4.99 4.70 - 6.10 x10'6/uL 11/08/2021 3:43 PM CDT [facility] HGB 14.8 14.0 - 18.0 G/DL 11/08/2021 3:43 PM CDT [facility] HCT 44.5 43.0 - 54.0 % 11/08/2021 3:43 PM CDT [facility] MCV 89.2 80.0 - 94.0 FL 11/08/2021 3:43 PM CDT [facility] MCH 29.7 27.0 - 31.0 PG 11/08/2021 3:43 PM CDT [facility] MCHC 33.3 32.0 - 36.0 G/DL 11/08/2021 3:43 PM CDT [facility] RDW 12.4 11.5 - 14.5 % 11/08/2021 3:43 PM CDT [facility] PLT 290 130 - 400 x10'3/uL 11/08/2021 3:43 PM CDT [facility] MPV 9.8 9.3 - 12.2 FL 11/08/2021 3:43 PM CDT [facility] 11/08/2021 3:23 PM CDT Starla Parham MD LABORATORY Final Result [facility] [address] [place] [address], [place] [phone] documented in this encounter Visit Diagnoses Diagnosis Essential (primary) hypertension Unspecified essential hypertension documented in this encounter Care Teams Extension Course Counselor Relationship Specialty Start Date End Date Starla Parham MD PCP - General FAMILY PRACTICE 11/17/20 documented as of this encounter
--- OUTSIDE RECORDS SUMMARY | 2024-04-04 20:05 | XMS_ITS | Encounter Summary ---
Author Organization [facility] Address [address] [place] [address]. [place], [place] [address] [place] [address] Care Team Providers Care Financial Analysis Advisor Name Role Phone None, Provider Primary Care [...] on filedocumented in this encounter Care Teams Financial Analysis Advisor Relationship Specialty Start Date End Date None, Provider, PCP - General 11/13/19 11/16/20 documented as of this encounter
--- OUTSIDE RECORDS SUMMARY | 2024-04-04 20:05 | XMS_ITS | Encounter Summary ---
Author Organization [facility] Address [address] [place] [address]. [place], [place] [address] [place] [address] Care Team Providers Care Salt Lifter Name Role Phone Yobany Manzanares MD Primary Care Provider [phone] Reason for Visit * Reason Comments Shortness Of Breath Cough Encounter Details Date Type Department Care Team (Late st Contact Info) Description 06/30/2019 4:55 PM CDT - 06/30/2019 8:08 PM CDT Emergency [facility] [place] [address] Vinita Hand APRN Shortness Of Breath ; [...] * Nausea and Vomiting Discharge Instructions, Adult (Maldivian) documented in this encounter Medications at Time [...] daily with meals. 07/11/18 Carolee K Veronica, CAREER TECHNICAL EDUCATION TEACHER naproxen sodium 220 MG tablet Take 440 [...] XR CHEST PORTABLE Final Result by User, [id number] (06/29 1844) Examination: Chest 1 view portable [...] 1 Inhaler, Refills: 0 Class: Eprescribe Pharmacy: [facility]/pharmacy #[id number] [place] [address] [facility] (Ph #: [phone]) !! ondansetron 4 MG disintegrating tablet Take 1 tablet (4 mg total) by mouth every 8 (eight) hoursas needed for Nausea. Qty: 6 tablet, Refills: 0 Class: Eprescribe Pharmacy: [facility]/pharmacy #[id number] - [place], [place] - [address] [facility] (Ph #: [phone]) !! - Potential duplicate medications found. Please discuss with provider. Disposition: Discharge Follow-Up: Yobany Manzanares MD [address] [address] Schedule an appointment as soon as possible [...] Richter MD, 06/30/2019 6:43 PM Vinita Hand PUBLIC HEALTH ANALYST GENERAL IMAGING Final Result * (ABNORMAL) COMPREHENSIVE METABOLIC PANEL (06/30/2019 6:06 PM CDT) [facility] Signature GLUCOSE 102(H) 70 - 99 MG/DL 06/30/2019 6:48 PM CDT [facility] BUN 7 7 - 18 MG/DL 06/30/2019 6:48 PM CDT [facility] CREATININE S/P/B 1.38(H) 0.7 - 1.3 MG/DL 06/30/2019 6:48 PM CDT [facility] SODIUM S/P/B 136 136 - 145 MMOL/L 06/30/2019 6:48 PM CDT [facility] POTASSIUM S/P/B 4.5 3.5 - 5.1 MMOL/L 06/30/2019 6:48 PM CDT [facility] Comment: SAMPLE REJECTED DUE TO HEMOLYSIS. PATIENT WILL BE REDRAWN AND CREDITED FOR THIS DRAW. CHLORIDE S/P/B 103 100 - 108 MMOL/L 06/30/2019 6:48 PM CDT [facility] CO2 24.8 21 - 32 MMOL/L 06/30/2019 6:48 PM CDT [facility] CALCIUM S/P/B 9.3 8.5 - 10.1 MG/DL 06/30/2019 6:48 PM CDT [facility] BILIRUBIN TOTAL S/P/B 0.4 0.2 - 1.2 MG/DL 06/30/2019 6:48 PM CDT [facility] Comment: THIS ASSAY IS NOT RECOMMENDED FOR PATIENTS UNDERGOING TREATMENT WITH ELTROMBOPAG DUE TO THE POTENTIAL FOR FALSELY ELEVATED RESULTS. TOTAL PROTEIN S/P/B 8.6(H) 6.4 - 8.2 G/DL 06/30/2019 6:48 PM CDT [facility] ALBUMIN S/P/B 4.1 3.4 - 5.0 G/DL 06/30/2019 6:48 PM CDT [facility] AST 58(H) 15 - 37 U/L 06/30/2019 6:48 PM CDT [facility] Comment: SAMPLE REJECTED DUE TO HEMOLYSIS. PATIENT WILL BE REDRAWN AND CREDITED FOR THIS DRAW. ALT 56 16 - 60 U/L 06/30/2019 6:48 PM CDT [facility] ALKALINE PHOSPHATASE S/P/B 95 50 - 136 U/L 06/30/2019 6:48 PM CDT [facility] ANION GAP 8.2 5 - 15 MMOL/L 06/30/2019 6:48 PM CDT [facility] BUN CREATININE RATIO 5.1(L) 6 - 26 06/30/2019 6:48 PM CDT [facility] A/G RATIO 0.9(L) 1.0 - 2.0 RATIO 06/30/2019 6:48 PM CDT [facility] EGFR NON-AFR. AMER. 68(L) >90 ML/MIN/1.7 3 M2 06/30/2019 6:48 PM CDT [facility] EGFR AFR. AMER. 78(L) >90 ML/MIN/1.7 3 M2 06/30/2019 6:48 PM CDT [facility] Comment: NOTE: eGFR is not calculated for patients <18 years of age. This is an estimated GFR (CKD EPI) and should not be used for calculating drug doses. 06/30/2019 6:06 PM CDT us Vinita Hand APRN LABORATORY Final Result [facility] [address] [place] [address], [place] [phone] * CBC W/DIFF AUTOMATED (06/30/2019 6:06 PM CDT) WBC 10.3 4.5 - 11.0 x10'3/uL 06/30/2019 6:31 PM CDT [facility] RBC 5.40 4.70 - 6.10 x10'6/uL 06/30/2019 6:31 PM CDT [facility] HGB 15.7 14.0 - 18.0 G/DL 06/30/2019 6:31 PM CDT [facility] HCT 47.4 43.0 - 54.0 % 06/30/2019 6:31 PM CDT [facility] MCV 87.8 80.0 - 94.0 FL 06/30/2019 6:31 PM CDT [facility] MCH 29.1 27.0 - 31.0 PG 06/30/2019 6:31 PM CDT [facility] MCHC 33.1 32.0 - 36.0 G/DL 06/30/2019 6:31 PM CDT [facility] RDW 12.1 11.5 - 14.5 % 06/30/2019 6:31 PM CDT [facility] PLT 313 130 - 400 x10'3/uL 06/30/2019 6:31 PM CDT [facility] MPV 10.4 9.3 - 12.2 FL 06/30/2019 6:31 PM CDT [facility] DIFFERENTIAL TYPE AUTOMATED DIFFERENTIAL 06/30/2019 6:31 PM CDT [facility] NEUTROPHILS % 54.4 % 06/30/2019 6:31 PM CDT [facility] LYMPHOCYTES % 34.7 % 06/30/2019 6:31 PM CDT [facility] MONOCYTES % 7.6 % 06/30/2019 6:31 PM CDT [facility] EOSINOPHILS 1.3 % 06/30/2019 6:31 PM CDT [facility] BASOPHILS 0.8 % 06/30/2019 6:31 PM CDT [facility] IMMATURE GRANS % 1.2 % 06/30/19 20 6:31 PM CDT [facility] ABS. NEUTROPHILS TOTAL 5.63 1.80 - 7.70 x10'3/uL 06/30/2019 6:31 PM CDT [facility] ABS. LYMPHOCYTES 3.58 1.00 - 4.80 x10'3/uL 06/30/2019 6:31 PM CDT [facility] ABS. MONOCYTES 0.78 0.30 - 0.82 x10'3/uL 06/30/2019 6:31 PM CDT [facility] ABS. EOSINOPHILS 0.13 0.04 - 0.54 x10'3/uL 06/30/2019 6:31 PM CDT [facility] ABS. BASOPHILS 0.08 0.01 - 0.08 x10'3/uL 06/30/2019 6:31 PM CDT [facility] ABS. IMMATURE GRANULOCYTES 0.12 0.00 - 0.49 x10'3/uL 06/30/2019 6:31 PM CDT [facility] 06/30/2019 6:06 PM CDT Vinita Hand PUBLIC HEALTH ANALYST LABORATORY Final Result [facility] [address] [place] [address], [place] [phone] documented in this encounter Visit Diagnoses Diagnosis [...] [id number] (Infusion Stop Time - Provider: Starla Eranndez RN) documented in this encounter Care Teams Salt Lifter Relationship Specialty Start Date End Date Yobany Manzanares MD [address] [place] [address] PCP - General INTERNAL MEDICINE 07/11/18 11/12/19 documented as of this encounter
--- OUTSIDE RECORDS SUMMARY | 2024-04-04 20:06 | XMS_ITS | Encounter Summary ---
Author Organization [facility] Address [facility] [place] [address] [place] [address] Care Team Providers Care Improvement Auditor Name Role Phone Veronique Severino MD Primary Care Provider Unavailable Encounter Details Date Type Department Care Team (Late st Contact Info) Description 07/05/2009 Abstract [facility] [employer] [facility] Diagnostic Imaging [address] [place] [address] Veronique Severino MD Social History Tobacco Use [...] on filedocumented in this encounter Care Teams Improvement Auditor Relationship Specialty Start Date End Date Veronique Severino MD PCP - General 04/13/12 documented as of this encounter
--- OUTSIDE RECORDS SUMMARY | 2024-04-04 20:06 | XMS_ITS | Encounter Summary ---
Author Organization [facility] Address [facility] [place] [address] [place] [address] Care Team Providers Care Stump Shooter Name Role Phone Veronique Severino MD Primary Care Provider Unavailable Encounter Details Date Type Department Care Team (Late st Contact Info) Description 06/10/[address] [facility] Diagnostic [facility] [address] [place] [address] Veronique Severino MD Social History Tobacco Use [...] on filedocumented in this encounter Care Teams Stump Shooter Relationship Specialty Start Date End Date Veronique Severino MD PCP - General 04/13/12 documented as of this encounter
--- OUTSIDE RECORDS SUMMARY | 2024-04-04 20:06 | XMS_ITS | Encounter Summary ---
Author Organization [facility] Address [facility] [place] [address] [place] [address] Care Team Providers Care Lpn Name Role Phone Veronique Severino MD Primary Care Provider Unavailable Encounter Details Date Type Department Care Team (Late st Contact Info) Description 04/27/2009 Abstract [facility] [employer] [facility] Diagnostic Imaging [address] [place] [address] Veronique Severino MD Social History Tobacco Use [...] on filedocumented in this encounter Care Teams Lpn Relationship Specialty Start Date End Date Veronique Severino MD PCP - General 04/13/12 documented as of this encounter
--- OUTSIDE RECORDS SUMMARY | 2024-04-04 20:06 | XMS_ITS | Encounter Summary ---
Author Organization [facility] Address [facility] [place] [address] [place] [address] Care Team Providers Care Inspector Eyeglass Frames Name Role Phone Veronique Severino MD Primary Care Provider Unavailable Encounter Details Date Type Department Care Team (Late st Contact Info) Description 04/23/2009 Abstract [facility] [address] [facility] [place] [address] Crow Johnson MD Social History Tobacco Use [...] on filedocumented in this encounter Care Teams Inspector Eyeglass Frames Relationship Specialty Start Date End Date Veronique Severino MD PCP - General 04/13/12 documented as of this encounter
--- OUTSIDE RECORDS SUMMARY | 2024-04-04 20:06 | XMS_ITS | Encounter Summary ---
Author Organization [facility] Address [facility] [place], [place] [address] [place] [address] Care Team Providers Care Platform Worker Name Role Phone Veronique Severino MD Primary Care Provider Unavailable Encounter Details Date Type Department Care Team (Latest Contact Info) Description 04/25/2012 Abstract [facility] Becky Caicedo MD Social History [...] Comments Blood Pressure 130/90 04/25/2012 11:46 AM BARGE CAPTAIN Pulse 95 04/25/2012 11:46 AM BARGE CAPTAIN Temperature - - Respiratory Rate - - Oxygen Saturation - - Inhaled Oxygen Concentration - - Weight 139.3 kg (307 lb) 04/25/2012 11:46 AM BARGE CAPTAIN Height 180.3 cm (5' 11 ) 04/25/2012 11:46 AM BARGE CAPTAIN Body Mass Index 42.82 04/25/2012 11:46 AM BARGE CAPTAIN documented in this encounter Progress Notes * Becky Caicedo MD - 04/25/2012 10:45 AM CST Chief Complaint Chief Complaint Free Text: pt here to follow up [facility]. He c/o low back pain eg,rma [...] lo back pain. he was taken to [facility] ER. he was discharged with vicodin. [...] Caicedo M.D.; Apr 25 2012 1:06PM (Author) E CAPTAIN documented in this encounter Plan of Treatment Not on file documented as of this encounter Visit Diagnoses Not on filedocumented in this encounter Care Teams Platform Worker Relationship Specialty Start Date End Date Veronique Severino, PCP - General 04/13/12 documented as of this encounter
--- OUTSIDE RECORDS SUMMARY | 2024-04-04 20:06 | XMS_ITS | Encounter Summary ---
Author Organization [facility] Address [address] [place] [address]. [place], [place] [address] [place] [address] Care Team Providers Care Cheese Specialist Name Role Phone Veronique Severino MD Primary Care Provider Unavailable Encounter Details Date Type Department Care Team (Late st Contact Info) Description 05/16/2011 Abstract [facility] CONVERSION [address] [place] [address] Becky Caicedo MD Social History Tobacco Use [...] procedure documented in this encounter Care Teams Cheese Specialist Relationship Specialty Start Date End Date Veronique Severino MD PCP - General 04/13/12 documented as of this encounter
--- OUTSIDE RECORDS SUMMARY | 2024-04-04 20:06 | XMS_ITS | Encounter Summary ---
Author Organization [facility] Address [facility]. [place], [place] [address] [place] [address] Care Team Providers Care Freelance Makeup Artist Name Role Phone Yobany Manzanares MD Primary Care Provider [phone] Reason for Referral * Imaging (Emergency) - Closed Specialty Diagnoses / Procedures Referred By Contac t Referred To Contact RADIOLOGY Procedures CT ABD+PEL W IV CON ONLY Carolee Martin NUCLEAR PHARMACIST Phone: tel: fax: Referral ID Status Reason Start Date Expiration Date Visits Re quested Visits Authorized [id number] Closed 07/11/2018 08/11/2019 1 1 Reason for Visit * Reason Comments Chest Pain Encounter Details Date Type Department Care Team (Late st Contact Info) Description 07/11/2018 1:41 PM CDT - 07/11/2018 7:50 PM CDT Emergency [facility] [place] [address] Carolee Martin NP [address] [phone] Chest Pain Discharge Disposition: Home or Self [...] Acute Abdomen (Belly Pain) Discharge Instructions, Adult (German) * Nonalcoholic Fatty Liver Disease Discharge Instructions (German) * Diabetes Diet (German) * Diabetes Type 2 Discharge Instructions (German) documented in this encounter Medications at Time [...] CDT Patient to CT on bed with transportation museum helper. * HOSEA Dasilva - 07/11/2018 2:54 PM [...] of 07/11/18 ECG [address] [facility] Test Date: 2018-07-11 Pat Name: AMA REHMAN Department: Room: [id number] Gender: Male Bell Clerk: ddb : 1985 Requested By: DICKSON RECIO Order Number: [id number] Reading MD: Measurements Intervals Boykin Rate: 105 P: FL: 0 QRS: 27 QRSD: 84 T: 29 QT: 341 QTc: 452 Interpretive Statements ATRIAL FLUTTER/TACHYCARDIA WITH RAPID VENTRICULAR RESPONSE ABNORMAL RHYTHM ECG No previous ECG available for comparison ECG [address] [facility] [address] Test Date: 2018-07-11 Pat Name: AMA REHMAN Department: Room: [id number] Gender: Male Bell Clerk: mg : 1985 Requested By: CAROLEE MARTIN Order Number: [id number] Reading MD: Measurements Intervals Boykin Rate: 101 P: 3 FL: 141 QRS: 40 QRSD: 87 T: 30 [...] CLEAN CATCH COLOR STRAW TRANSPARENCY CLEAR Specific Pavilion (U) 1.029 1.001 - 1.030 U PH [...] IV CON ONLY Final Result by User, [id number] (07/11 1600) EXAM: CT ABD+PEL W CON [...] XR CHEST PORTABLE Final Result by User, [id number] (07/11 5858) Date: 07/11/2018 2:15 PM Exam: XR CHEST [...] Refills: 0 Class: Eprescribe Pharmacy: [facility]/pharmacy #[id number] [place], [place] - [address] [facility] (Ph #: [phone]) metFORMIN 500 MG tablet Take 1 tablet (500 mg total) by mouth 2 (two) times daily with meals. Qty: 60 tablet, Refills: 0 Class: Eprescribe Pharmacy: [facility]/pharmacy #[id number] - [facility], [place] - [address] [facility] (Ph #: [phone]) ondansetron 4 MG disintegrating tablet Take 1 tablet (4 mg total) by mouth every 8 (eight) hours asneeded for Nausea. Qty: 20 tablet, Refills: 0 Class: Eprescribe Pharmacy: [facility]/pharmacy #[id number] - [place], [place] - [address] [facility] ( #: [phone]) Disposition: Discharge Follow-Up: Yobany Manzanares MD [address] [facility] JESSICA [address] [facility] [address] Schedule an appointment as soon as possible for a visit Yobani Layne MD [address] [facility] [address] [facility] [address] Schedule an appointment as soon as possible for a visit GI specialist HOSEA DASILVA 07/11/2018 HOSEA Dasilva 07/11/18 9918 Cosigned by Dickson Recio MD at 07/12/2018 [...] * POCT KETONES (07/11/2018 4:52 PM CDT) [facility] KETONES S/P/B 0.1 0.0 - 0.5 mmol/L 07/11/2018 4:54 PM CDT [facility] LAB ORDERS INTERFACE 07/11/2018 4:52 PM CDT us Carolee Martin NP POINT OF CARE TEST ORDERABLES Final Result [facility] LAB ORDERS INTERFACE US * (ABNORMAL) URINALYSIS, AUTO, COMPLETE (07/11/2018 4:47 PM CDT) Pathologist [facility] SPECIMEN TYPE URINE CLEAN CATCH 07/11/2018 4:48 PM CDT [facility] COLOR (U) STRAW 07/11/2018 5:18 PM CDT [facility] TRANSPARENCY CLEAR 07/11/2018 5:18 PM CDT [facility] SPECIFIC GRAVITY (U) 1.029 1.001 - 1.030 07/11/2018 5:18 PM CDT [facility] U PH 6.0 5.0 - 9.0 07/11/2018 5:18 PM CDT [facility] LEUKOCYTES (U) NEGATIVE NEGATIVE 07/11/2018 5:18 PM CDT [facility] NITRITES NEGATIVE NEGATIVE 07/11/2018 5:18 PM CDT [facility] PROTEIN (U) 30(H) <30 MG/DL 07/11/2018 5:18 PM CDT [facility] URINE GLUCOSE >500(A) NEGATIVE MG/DL 07/11/2018 5:18 PM CDT [facility] KETONES MG/DL (U) NEGATIVE NEGATIVE MG/DL 07/11/2018 5:18 PM CDT [facility] UROBILINOGEN NEGATIVE NEGATIVE MG/DL 07/11/2018 5:18 PM CDT [facility] BILIRUBIN (U) NEGATIVE NEGATIVE MG/DL 07/11/2018 5:18 PM CDT [facility] BLOOD (U) NEGATIVE NEGATIVE 07/11/2018 5:18 PM T [facility] CULTURE & SENSITIVITY INDICATED? CULTURE IS NOT INDICATED 07/11/2018 5:18 PM CDT [facility] WBC/HPF <1 <6 /HPF 07/11/2018 5:18 PM CDT [facility] RBC/HPF <1 <6 /HPF 07/11/2018 5:18 PM CDT [facility] URINE SPECIMEN OBTAINED BY CLEAN CATCH PROCEDURE / Unknown 07/11/2018 4:47 PM CDT Carolee Martin NUCLEAR PHARMACIST URINE ORDERABLES Final Result Performing Organization Address City/[facility]/ZIP Co de Phone Number [facility] LAB [address] [place] [address], * TROPONIN, QUANT (07/11/2018 4:35 PM CDT) TROPONIN I <0.015 <0.045 ng/mL. 07/11/2018 5:10 PM CDT [facility] Comment: HIGH DOSES OF BIOTIN MAY INTERFERE WITH THIS TEST RESULT. CORRELATION TO CLINICAL HISTORY AND PRESENTATION RECOMMENDED. 07/11/2018 4:35 PM CDT Dickson Recio MD LABORATORY Final Result Performing Organization Address [facility] Co de Phone Number [facility] [address] [place] [address], * CT ABD+PEL W IV CON ONLY [...] MD, 07/11/2018 3:51 PM us Carolee Martin NUCLEAR PHARMACIST CT Final Result * ECG 12 lead (07/11/2018 2:45 PM CDT) 07/11/2018 2:45 PM CDT Narrative [facility]- [facility] - 07/13/2018 8:40 PM CDT ?[facility] [place] ? [address] [place] ? Test Date: ?2018-07-11 Pat Name: ? AMA REHMAN ?Department: ? Room: ? [id number] Gender: ? Male ? Bell Clerk: ?? mg : ?1985 ? Requested By: CAROLEE MARTIN Order Number: [id number] ? Reading : ?? Felix Camilo ? Measurements Intervals ?Boykin ? Rate: ? 101 ?P: ?3 FL: ? 141 ?QRS: ?40 QRSD: ? 87 ? T: ?30 QT: ? 346 ? QTc: ?449 ? Interpretive Statements SINUS TACHYCARDIA ABNORMAL RHYTHM ECG Procedure Note Felix Camilo MD - 07/13/2018 [facility] [place] [facility] Test Date: 2018-07-11 Pat Name: AMA REHMAN Department: Room: [id number] Gender: Male Bell Clerk: mg : 1985 Requested By: CAROLEE MARTIN Order Number: [id number] Berenice MD: Felix Camilo Measurements Intervals Boykin Rate: 101 P: 3 FL: 141 QRS: 40 QRSD: 87 T: 30 QT: 346 QTc: 449 Interpretive Statements SINUS TACHYCARDIA ABNORMAL RHYTHM ECG Carolee Martin NUCLEAR PHARMACIST ECG ORDERABLES Final Result [facility] ([facility]) RAD * XR CHEST PORTABLE (07/11/2018 [...] - 393 UNITS/L 07/11/2018 2:55 PM CDT [facility] 07/11/2018 1:55 PM CDT Dickson Recio MD LABORATORY Final Result [facility] [address] [place] [address], * TROPONIN, QUANT (07/11/2018 1:55 PM CDT) TROPONIN I <0.015 <0.045 ng/mL. 07/11/2018 2:42 PM CDT [facility] Comment: HIGH DOSES OF BIOTIN MAY INTERFERE WITH THIS TEST RESULT. CORRELATION TO CLINICAL HISTORY AND PRESENTATION RECOMMENDED. 07/11/2018 1:55 PM CDT Dickson Recio MD LABORATORY Final Result Performing Organization Address [facility] Co de Phone Number [facility] [address] [place] [address], * (ABNORMAL) COMPREHENSIVE METABOLIC PANEL (07/11/2018 1:55 PM CDT) GLUCOSE 380(H) 70 - 99 MG/DL 07/11/2018 2:42 PM CDT [facility] BUN 10 7 - 18 MG/DL 07/11/2018 2:42 PM CDT [facility] CREATININE S/P/B 1.27 0.7 - 1.3 MG/DL 07/11/2018 2:42 PM CDT [facility] SODIUM S/P/B 132(L) 136 - 145 MMOL/L 07/11/2018 2:42 PM CDT [facility] POTASSIUM S/P/B 3.5 3.5 - 5.1 MMOL/L 07/11/2018 2:42 PM CDT [facility] CHLORIDE S/P/B 100 100 - 108 MMOL/L 07/11/2018 2:42 PM CDT [facility] CO2 24.5 21 - 32 MMOL/L 07/11/2018 2:42 PM CDT [facility] CALCIUM S/P/B 8.6 8.5 - 10.1 MG/DL 07/11/2018 2:42 PM CDT [facility] BILIRUBIN TOTAL S/P/B 0.7 0.2 - 1.2 MG/DL 07/11/2018 2:42 PM T [facility] TOTAL PROTEIN S/P/B 7.9 6.4 - 8.2 G/DL 07/11/2018 2:42 PM T [facility] ALBUMIN S/P/B 4.0 3.4 - 5.0 G/DL 07/11/2018 2:42 PM T [facility] AST 34 15 - 37 U/L 07/11/2018 2:42 PM T [facility] ALT 66(H) 16 - 60 U/L 07/11/2018 2:42 PM T [facility] ALKALINE PHOSPHATASE S/P/B 97 50 - 136 U/L 07/11/2018 2:42 PM T [facility] ANION GAP 11.0 8 - 20 MMOL/L 07/11/2018 2:42 PM T [facility] BUN CREATININE RATIO 7.9 6 - 26 07/11/2018 2:42 PM T [facility] A/G RATIO 1.0 1.0 - 2.0 RATIO 07/11/2018 2:42 PM T [facility] EGFR NON-AFR. AMER. 75(L) >90 ML/MIN/1.7 3 M2 07/11/2018 2:42 PM T [facility] EGFR AFR. AMER. 87(L) >90 ML/MIN/1.7 3 M2 07/11/2018 2:42 PM T [facility] Comment: NOTE: eGFR is not calculated for patients <18 years of age. This is an estimated GFR (CKD EPI) and should not be used for calculating drug doses. 07/11/2018 1:55 PM CDT Dickson Recio MD LABORATORY Final Result [facility] [address] [place] [address], * (ABNORMAL) CBC W/DIFF AUTOMATED (07/11/2018 1:55 PM CDT) WBC 6.9 4.5 - 11.0 x10'3/uL 07/11/2018 2:15 PM CDT [facility] RBC 4.77 4.70 - 6.10 x10'6/uL 07/11/2018 2:15 PM CDT [facility] HGB 13.7(L) 14.0 - 18.0 G/DL 07/11/2018 2:15 PM CDT [facility] HCT 40.5(L) 43.0 - 54.0 % 07/11/2018 2:15 PM CDT [facility] MCV 84.9 80.0 - 94.0 FL 07/11/2018 2:15 PM CDT [facility] MCH 28.7 27.0 - 31.0 PG 07/11/2018 2:15 PM CDT [facility] MCHC 33.8 32.0 - 36.0 G/DL 07/11/2018 2:15 PM CDT [facility] RDW 11.8 11.5 - 14.5 % 07/11/2018 2:15 PM CDT [facility] PLT 250 130 - 400 x10'3/uL 07/11/2018 2:15 PM CDT [facility] MPV 10.2 9.3 - 12.2 FL 07/11/2018 2:15 PM CDT [facility] DIFFERENTIAL TYPE AUTOMATED DIFFERENTIAL 07/11/2018 2:15 PM CDT [facility] NEUTROPHILS % 64.3 % 07/11/2018 2:15 PM CDT [facility] LYMPHOCYTES % 25.3 % 07/11/2018 2:15 PM CDT [facility] MONOCYTES % 7.4 % 07/11/2018 2:15 PM CDT [facility] EOSINOPHILS 1.4 % 07/11/2018 2:15 PM CDT [facility] BASOPHILS 0.6 % 07/11/2018 2:15 PM CDT [facility] IMMATURE GRANS % 1.0(H) 0 % 07/12/19 19 2:15 PM CDT [facility] ABS. NEUTROPHILS TOTAL 4.45 1.80 - 7.70 x10'3/uL 07/11/2018 2:15 PM CDT [facility] ABS. LYMPHOCYTES 1.75 1.00 - 4.80 x10'3/uL 07/11/2018 2:15 PM CDT [facility] ABS. MONOCYTES 0.51 0.30 - 0.82 x10'3/uL 07/11/2018 2:15 PM CDT [facility] ABS. EOSINOPHILS 0.10 0.04 - 0.54 x10'3/uL 07/11/2018 2:15 PM CDT [facility] ABS. BASOPHILS 0.04 0.01 - 0.08 x10'3/uL 07/11/2018 2:15 PM CDT [facility] ABS. IMMATURE GRANULOCYTES 0.07(H) 0.00 - 0.03 x10'3/uL 07/11/2018 2:15 PM CDT [facility] 07/11/2018 1:55 PM CDT Dickson Recio MD LABORATORY Final Result Performing Organization Address [facility]/State/ZIP Co de Phone Number [facility] [address] [place] [address], * ECG 12 lead (07/11/2018 1:44 PM CDT) 07/11/2018 1:44 PM CDT Narrative [facility] - 07/13/2018 8:40 PM CDT ?[facility] [place] ? [address] [facility] [place] ? Test Date: ?2018-07-11 Pat Name: ? AMA REHMAN ?Department: ? Room: ? [id number] Gender: ? Male ? Bell Clerk: ?? ddb : ?1985 ? Requested By: DICKSON RECIO Order Number: [id number] ? Reading MD: ?? Felix Camilo ? Measurements Intervals ?Boykin ? Rate: ? 105 ?P: ? FL: ? 0 ?QRS: ?27 QRSD: ? 84 ? T: ?29 QT: ? 341 ? QTc: ?452 ? Interpretive Statements Sinus Tachycardia ABNORMAL RHYTHM ECG No previous ECG available for comparison Procedure Note Felix Camilo MD - 07/13/2018 [facility] [place] [address] [facility] [place] Test Date: 2018-07-11 Pat Name: AMA REHMAN Department: Room: [facility] Gender: Male Bell Clerk: ddb : 1985 Requested By: DICKSON RECIO Order Number: [id number] Berenice MD: Felix Camilo Measurements Intervals Boykin Rate: 105 P: FL: 0 QRS: 27 QRSD: 84 T: 29 QT: 341 QTc: 452 Interpretive Statements Sinus Tachycardia ABNORMAL RHYTHM ECG No previous ECG available for comparison us Dickson Recio MD ECG ORDERABLES Final Result [facility] ([place]) ADI documented in this [...] RTR) documented in this encounter Care Teams Freelance Makeup Artist Relationship Specialty Start Date End Date Yobany Manzanares MD [address] [address] PCP - General INTERNAL MEDICINE 07/11/18 11/12/19 documented as of this encounter
--- OUTSIDE RECORDS SUMMARY | 2024-04-04 20:06 | XMS_ITS | Encounter Summary ---
Author Organization [facility] Address [address] [place] [address]. [place], [place] [address] [place] [address] Care Team Providers Care Mapping Technician Name Role Phone Veronique Severino MD Primary Care Provider Unavailable Encounter Details Date Type Department Care Team (Latest Contact Info) Description 04/28/2012 Abstract [facility] Social History Tobacco Use Types [...] on filedocumented in this encounter Care Teams Mapping Technician Relationship Specialty Start Date End Date Veronique Severino MD PCP - General 04/13/12 documented as of this encounter
--- OUTSIDE RECORDS SUMMARY | 2024-04-04 20:06 | XMS_ITS | Encounter Summary ---
Author Organization [facility] Address [facility] [place] [address] [place] [address] Care Team Providers Care Lapping Machine Tender Name Role Phone Veronique Severino MD Primary Care Provider Unavailable Encounter Details Date Type Department Care Team (Late st Contact Info) Description 04/13/2012 Emergency [facility] [place] [address] Raoul Aldridge MD [address] [place] [address] [place] [address] Social History Tobacco Use Types Packs/Day Years [...] Lumbago documented in this encounter Care Teams Lapping Machine Tender Relationship Specialty Start Date End Date Veronique Severino MD PCP - General 04/13/12 documented as of this encounter
--- OUTSIDE RECORDS SUMMARY | 2024-04-04 20:06 | XMS_ITS | Encounter Summary ---
Author Organization [facility] Address [facility] [place] [address] [place] [address] Care Team Providers Care Instrument Specialist Name Role Phone Veronique Severino MD Primary Care Provider Unavailable Encounter Details Date Type Department Care Team (Late st Contact Info) Description 05/03/2009 Abstract [facility] [address] [place] [address] Veronique Severino MD Social History Tobacco Use [...] on filedocumented in this encounter Care Teams Instrument Specialist Relationship Specialty Start Date End Date Veronique Severino MD PCP - General 04/13/12 documented as of this encounter
--- OUTSIDE RECORDS SUMMARY | 2024-04-04 20:06 | XMS_ITS | Encounter Summary ---
Author Organization [facility] Address [facility] [place], [place] [address] [place] [address] Care Team Providers Care Software Sales Executive Name Role Phone Veronique Severino MD Primary Care Provider Unavailable Encounter Details Date Type Department Care Team (Late st Contact Info) Description 05/14/2011 Abstract [facility] CONVERSION [address] [place] [address] Becky Caicedo MD Social History Tobacco Use [...] vertebra documented in this encounter Care Teams Software Sales Executive Relationship Specialty Start Date End Date Veronique Severino MD PCP - General 04/13/12 documented as of this encounter
--- OUTSIDE RECORDS SUMMARY | 2024-04-04 20:08 | XMS_ITS | Encounter Summary ---
Author Organization [facility] Address [address] [place] [address] Care Team Providers Care Spud Driller Name Role Phone Starla Parham MD Primary Care Provider [phone] Reason for Visit * Diagnostic Imaging (Routine) - Closed Specialty Diagnoses / Procedures Referred By Contac t Referred To Contact Diagnoses Nausea and vomiting, unspecified vomiting type Gastroesophageal reflux disease, unspecified whether esophagitis present Procedures [place] Gastric Emptying Study Rubio Martinez NP [address] [place] [address] Phone: tel: fax: [address] [address] Referral ID Status Reason Start Date Expiration Date Visits Re quested Visits Authorized [id number] Closed 12/03/2023 01/01/2025 5 1 Encounter Details Date Type Department Care Team (Latest Contact Info) Description 01/22/2024 11:08 AM CDT - 01/22/2024 11:59 PM CDT Hospital Encounter [facility] [address] [place] [address] Discharge Disposition: Discharge to home or self [...] often do you attend chur ch or spiritism services? Never 06/20/2023 Do you belong to any clubs o r organizations such as jain groups, unions, fraternal or athletic groups, or [...] place to sleep or slept in a usp (including now)? 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 LB: POI D: ??01/22/2024 4:13 PM T: ??01/22/2024 4:13 PM Report ID: [id number] Reading Location: ??[id number] Procedure Note Anthony Olguin MD - 01/22/2024 [...] Anthony Olguin M.D. LB: PIO Report ID: [id number] Reading Location: [id number] us Rubio Adore Martinez WARDROBE SUPERVISOR IMG NM PROCEDURES F inal Result documented in this encounter Visit Diagnoses Not on filedocumented in this encounter Care Teams Spud Driller Relationship Specialty Start Date End Date Starla Parham MD PCP - General Family Medicine 11/13/21 03/02/24 documented as of this encounter
--- OUTSIDE RECORDS SUMMARY | 2024-04-04 20:08 | XMS_ITS | Encounter Summary ---
Author Organization [facility] Address [address] [place] [address] Care Team Providers Care Senior Trial Attorney Name Role Phone Starla Parham MD Primary Care Provider [phone] Reason for Visit * Diagnostic Imaging (Routine) - Closed Specialty Diagnoses / Procedures Referred By Contac t Referred To Contact Diagnoses Nausea and vomiting, unspecified vomiting type Gastroesophageal reflux disease, unspecified whether esophagitis present Procedures [place] Gastric Emptying Study Rubio Martinez NP [address] [place] [address] Phone: tel: fax: [address] [phone] Referral ID Status Reason Start Date Expiration Date Visits Re quested Visits Authorized [id number] Closed 12/03/2023 01/01/2025 5 1 Encounter Details Date Type Department Care Team (Latest Contact Info) Description 01/22/2024 11:08 AM CDT - 01/22/2024 11:59 PM CDT Hospital Encounter [facility] [address] [place] [address] Discharge Disposition: Discharge to home or self [...] often do you attend chur ch or orthodox services? Never 06/20/2023 Do you belong to any clubs o r organizations such as zoroastrian groups, unions, fraternal or athletic groups, or [...] place to sleep or slept in a nursing home (including now)? 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 LB: PIO Report ID: [id number] Reading Location: [id number] us Rubio Adore Martinez [facility] REP IMG NM PROCEDURES F inal Result documented in this encounter Visit Diagnoses Not on filedocumented in this encounter Care Teams Senior Trial Attorney Relationship Specialty Start Date End Date Starla Parham MD PCP - General Family Medicine 11/13/21 03/02/24 documented as of this encounter
--- OUTSIDE RECORDS SUMMARY | 2024-04-04 20:08 | XMS_ITS | Encounter Summary ---
Author Organization [facility] Healthcare Address [address] [place] [address] Care Team Providers Care Brick Tender Name Role Phone Starla Parham MD Primary Care Provider Reason for Visit * Diagnostic Imaging (Routine) - Closed Specialty Diagnoses / Procedures Referred By Contac t Referred To Contact Diagnoses Nausea and vomiting, unspecified vomiting type Gastroesophageal reflux disease, unspecified whether esophagitis present Procedures NM Gastric Emptying Study Rubio Martinez NP [address] [place] [address] Phone: tel: fax: [address] [phone] Referral ID Status Reason Start Date Expiration Date Visits Re quested Visits Authorized [id number] Closed 12/03/2023 01/01/2025 5 1 Encounter Details Date Type Department Care Team (Latest Contact Info) Description 01/22/2024 11:08 AM CDT - 01/22/2024 11:59 PM CDT Hospital Encounter [facility] [address] [place] [id number] Discharge Disposition: Discharge to home or self [...] often do you attend chur ch or religion services? Never 06/20/2023 Do you belong to any clubs o r organizations such as episcopalian groups, unions, fraternal or athletic groups, or [...] on file Legal Sex Male 7:25 PM DIRECTOR EXTERNAL COMMUNICATIONS Gender Identity Not on file Sexual Orientation [...] blood sugar diagnostic (ONETOUCH VERIO TEST STRIPS [facility] OneTouch Verio test strips cholecalciferol (VITAMIN D-3) [...] PM T: ??01/22/2024 4:13 PM Report ID: [id number] Reading Location: ??[id number] Procedure Note Anthony Olguin MD - 01/22/2024 [...] Anthony Olguin M.D. LB: PIO Report ID: [id number] Reading Location: [id number] us Rubio Adore Martinez HYDRAULIC PRESS OPERATOR IMG NM PROCEDURES F inal Result documented in this encounter Visit Diagnoses Not on filedocumented in this encounter Care Teams Brick Tender Relationship Specialty Start Date End Date Starla Parham MD PCP - General Family Medicine 11/13/21 03/02/24 documented as of this encounter
--- OUTSIDE RECORDS SUMMARY | 2024-04-04 20:08 | XMS_ITS | Encounter Summary ---
Author Organization [facility] Healthcare Address [address] [place] [address] Care Team Providers Care Promotions Officer Name Role Phone Starla Parham MD Primary Care Provider [phone] Reason for Referral * Diagnostic Imaging (Routine) - Closed Specialty Diagnoses / Procedures Referred By Donavon braswell Referred To Contact Diagnoses Nausea and vomiting, unspecified vomiting type Gastroesophageal reflux disease, unspecified whether esophagitis present Procedures NM Gastric Emptying Study Rubio Martinez NP [address] [place] [address] DR LOPEZ [address] [place] [address] Phone: tel: fax: [address] [phone] Referral ID Status Reason Start Date Expiration Date Visits Re quested Visits Authorized [id number] Closed 12/03/2023 01/01/2025 5 1 * Diagnostic Imaging (Routine) - Authorized Specialty Diagnoses / Procedures Referred By Donavon braswell Referred To Contact Diagnoses Nausea and vomiting, unspecified vomiting type RUQ pain Gastroesophageal reflux disease, unspecified whether esophagitis present Procedures NM Hepatobiliary Imaging W GBEF Rubio Martinez NP [address] [facility] [address] LOPEZ [address] [place] [address] Phone: tel: fax: [address] [phone] Referral ID Status Reason Start Date Expiration Date V isits Requested Visits Authorized [id number] Authorized 12/03/2023 01/01/2025 2 2 Reason for [...] Description 12/03/2023 1:15 PM CDT Office Visit [facility] Gastroenterology at [address] [place] [phone] Rubio Martinez NP [address] [place] [address] [address] [place] [address] Nausea and vomiting, unspecified vomiting [...] oz pur e alcohol) rarely [facility] Utilities Answer Date Recorded In the past 12 months has [employer], gas, oil, or water [employer] threatened to shut off services in your [...] often do you attend chur ch or latter day services? Never 06/20/2023 Do you belong to [...] place to sleep or slept in a snf (including now)? 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 Buy this one blku-ost-xgtawew if not covered by insurance. Begin taking [...] on getting you pooping better. Buy this bxyn-yto-hgeyabx if not covered by insurance. Use Bentyl/dicyclomine [...] try to wean it back down to auuhk-ntdjn-nar dosing. This will help prevent kidney disease [...] the care of [facility] providerDr. Matt in [facility] in recent years. Will attempt to obtain [...] thickening or pericholecystic fluid. No positive sonographic Winthrop sign reported. BILIARY: Common bile duct measuring [...] with the toilet nearby. Buy this one utjn-rxh-fkqeotd if not covered by insurance. -Begin taking [...] on getting you pooping better. Buy this wlpn-imp-lwvwjzk if not covered by insurance. -Use Bentyl/dicyclomine [...] to every other day dosing in the emt intermediate to prevent potential side effects down the [...] Where should this order be performed? Answer: [facility] [144] NM Gastric Emptying Study Standing Status: [...] Where should this order be performed? Answer: [facility] [144] Vitamin B12 Standing Status: Future Number of Occurrences: 1 Standing Expiration Date: 12/02/2024 Magnesium Standing Status: Future Number of Occurrences: 1 Standing Expiration Date: 12/02/2024 Folate Standing Status: Future Number of Occurrences: 1 Standing Expiration Date: 12/02/2024 Thyroid Function [place] Standing Status: Future Number of Occurrences: 1 [...] time spent on the date of the wstw-jh-edpa encounter, including both qsih-mc-mdtq time (including staff/provider time spent providing education) and dvp-sayt-zm-face time (pre-charting, reviewing chart, post-charting) was 53 minutes. This note is dictated and transcribed by [employer]. Rand Butter variances may occur. Despite proofreading, typographical errors may occur. My collaborating physicians are Dr. Allan Peñaloza & Dr. Hanane Bhakta-Gastroenterology. Rubio Martinez NP * Rubio Martinez NP - 12/03/2023 1:15 PM CDT After his office visit, previous records were received from Dr. Daisha Matt's office in [place], [place] (GI). 07/15/2023-colonoscopy: 11 mm polyp removed [...] PM T: ??01/22/2024 4:13 PM Report ID: [id number] Reading Location: ??[id number] Procedure Note Anthony Olguin MD - 01/22/2024 [...] Anthony Olguin M.D. LB: LB Report ID: [id number] Reading Location: [id number] us Rubio Martinez YARDER ENGINEER IMG NM PROCEDURES F inal Result * (ABNORMAL) Vitamin D 25 hydroxy (12/03/2023 2:18 PM CDT) Vitamin D 25-OH 23(L) 30 - 80 ng/mL Blood 12/03/2023 2:18 PM CDT 12/03/2023 3:47 PM CDT Rubio Martinez YARDER ENGINEER LAB BLOOD ORDERABLE S Final Result JUSTYNA DAHL (FLY) [address] [place] [address] * (ABNORMAL) Iron profile w/ IBC (12/03/2023 2:18 PM CDT) Iron 60 50 - 150 mcg/dL TIBC 366 250 - 400 mcg/dL JUSTYNA DAHL (FLY) Transferrin saturation 16(L) 20 - 50 % JUSTYNA DAHL (FLY) Blood 12/03/2023 2:18 PM CDT 12/03/2023 3:47 PM CDT [facility] LAB BLOOD ORDERABLE S Final Result Performing Organization Address [facility] Co de Phone Number JUSTYNA DAHL (FLY) [address] [place] [address] * Celiac reflex panel (12/03/2023 2:18 PM CDT) IgA 87 61 - 356 mg/dL [facility] Lab Celiac disease interpretation See Comment ISAMIRIAM DAHL (FLY) Comment: See Comment: Negative serology. Celiac disease unlikely. However, approximately 10% of patients with celiac disease are seronegative. Also, patients who are already adhering to a gluten-free diet may be seronegative. If celiac disease is highly clinically suspected, consider HLA-DQ typing. Test Performed by: [facility] [place] [address] Helicopter Utility Aircrewman: Hiro Crystal Ph.D.; CLIA# [id number] Blood 12/03/2023 2:18 PM CDT 12/03/2023 3:47 PM CDT Rubio Martinez YARDER ENGINEER LAB BLOOD ORDERABLE S Final Result JUSTYNA DALH (FLY) 1 [facility] [place] [address] [facility] ref [facility] * Thyroid Function [place] (12/03/2023 2:18 PM CDT) Pathologist [facility] TSH 1.77 0.30 - 4.20 mcIUnit/mL Blood 12/03/2023 2:18 PM CDT 12/03/2023 3:47 PM CDT [facility] YARDER ENGINEER LAB BLOOD ORDERABLE S Final Result JUSTYNA DAHL (VANDEMERE) 1 [facility] [place] [address] * Folate (12/03/2023 2:18 PM CDT) Pathologist [facility] Folic acid 12.7 >=5.0 ng/mL Comment:Slightly Hemolyzed S pecimen. Results may be affected. Blood 12/03/2023 2:18 PM CDT 12/03/2023 3:47 PM CDT [facility] YARDER ENGINEER LAB BLOOD ORDERABLE S Final Result JUSTYNA DAHL (VANDEMERE) 1 [facility] [place] [address] * Magnesium (12/03/2023 2:18 PM CDT) [facility] Magnesium 1.8 1.4 - 2.5 mg/dL Blood 12/03/2023 2:18 PM CDT 12/03/2023 3:47 PM CDT [facility] YARDER ENGINEER LAB BLOOD ORDERABLE S Final Result JUSTYNA DAHL (VANDEMERE) 1 [facility] [place] [address] * Vitamin B12 (12/03/2023 2:18 PM CDT) Vitamin B12 300 230 - 1,250 pg/mL Blood 12/03/2023 2:18 PM CDT 12/03/2023 3:47 PM CDT Rubio Martinez YARDER ENGINEER LAB BLOOD ORDERABLE S Final Result JUSTYNA DAHL (VANDEMERE) 1 [facility] Department [place] [address] documented in this encounter Visit Diagnoses Diagnosis [...] 12/03/2023 added in this encounter Care Teams Promotions Officer Relationship Specialty Start Date End Date Starla Parham MD PCP - General Family Medicine 11/13/21 03/02/24 documented as of this encounter
--- OUTSIDE RECORDS SUMMARY | 2024-04-04 20:08 | XMS_ITS | Encounter Summary ---
Author Organization [facility] Address [address] [place] [address] Phone Care Team Providers Care Lending Advisor Name Role Phone Provider, None Primary Care Provider Unavailabl e Reason for Visit * Reason Comments Shortness of Breath Encounter Details Date Type Department Care Team (Latest Contact Info) Description 05/06/2023 12:30 PM WORK STATION SUPPORT SPECIALIST [facility] [address] [place] [address] Melody Taylor, ERINN, STRUCTURAL IRON ERECTOR [address] [place] [address] Shortness of breath (Primary Dx); Upper respiratory tract infection, unspecified type Discharge Disposition: Discharged to home or Selfcare Social History Tobacco Use Types Packs/Day Years Used Date Smoking Tobacco: Never Smokeless Tobacco: Never Sex and Gender Information Value Date Recorded Sex Assigned at Not on file Legal Sex Male 11:59 AM WORK STATION SUPPORT SPECIALIST Gender Identity Not on file Sexual Orientation Not on file documented as of this encounter Last Filed Vital Signs Vital Sign Reading Time Taken Comments Blood Pressure 130/82 05/06/2023 12:20 PM WORK STATION SUPPORT SPECIALIST Pulse 103 05/06/2023 12:20 PM WORK STATION SUPPORT SPECIALIST Temperature 36.5 ??C (97.7 ??F) 05/06/2023 12:[address] Respiratory Rate 20 05/06/2023 12:20 PM WORK STATION SUPPORT SPECIALIST Oxygen Saturation 98% 05/06/2023 12:20 PM WORK STATION SUPPORT SPECIALIST Inhaled Oxygen Concentration - - Weight 138.3 kg (305 lb) 05/06/2023 12:20 PM WORK STATION SUPPORT SPECIALIST Height 180.3 cm (5' 11 ) 05/06/2023 12:20 PM WORK STATION SUPPORT SPECIALIST Body Mass Index 42.54 05/06/2023 12:20 PM WORK STATION SUPPORT SPECIALIST documented in this encounter Patient Instructions * Patient Instructions* Melody Taylor APRN, CNP - 05/06/2023 12:30 PM WORK STATION SUPPORT SPECIALIST Symptoms are most likely caused from a [...] improvement in the symptoms, or symptoms worsen. STATION SUPPORT SPECIALIST * Attachments The following attachments cannot be sent through Care Everywhere. * Upper Respiratory Infection Adult Lbep-kb-Biku ([place] Islander) documented in this encounter Progress Notes * Haven Louis CMA - 05/06/2023 12:30 PM CST Oscar Rehman complains of Cough,fatigue, and shortness of breath. Symptoms for 2 days. Patient's son is currently positive for covid. Today's Review of Systems Constitutional: Positive for malaise/fatigue. Respiratory: Positive for cough and shortness of breath. STATION SUPPORT SPECIALIST * Melody Taylor APRN, CNP - 05/06/2023 12:30 PM CST HPI: Oscar Rehman is a 37 y.o. male in the [facility] today for cough, fatigue and shortness [...] verified, with additions or corrections, as appropriate. STATION SUPPORT SPECIALIST documented in this encounter Plan of Treatment Not on file documented as of this encounter Procedures Procedure Name Priority Date/Time Associated Diagnosis Comments POC SARS-COV-2 BY MOLECULAR Routine 05/06/2023 12:26 PM WORK STATION SUPPORT SPECIALIST Shortness of breath POC INFLUENZA A AND B BY MOLECULAR Routine 05/06/2023 9:55 AM WORK STATION SUPPORT SPECIALIST Shortness of breath documented in this encounter Results * POC SARS-COV-2 BY MOLECULAR (05/06/2023 12:26 PM WORK STATION SUPPORT SPECIALIST) SARSCOV2 Negative Negative, INVALID RESULT PROCEDURE CONTROL Valid 05/06/2023 12:2 6 PM WORK STATION SUPPORT SPECIALIST us Silke House DIRECTOR LEARNING, STRUCTURAL IRON ERECTOR POINT OF CARE TESTI NG (MANUAL) Final Result * POC INFLUENZA A AND B BY MOLECULAR (05/06/2023 9:55 AM WORK STATION SUPPORT SPECIALIST) INFLUENZA A RNA Negative Negative, Invalid INFLUENZA B RNA Negative Negative, Invalid PROCEDURE CONTROL Valid 05/06/2023 9:55 AM WORK STATION SUPPORT SPECIALIST us Silke House DIRECTOR LEARNING, STRUCTURAL IRON ERECTOR POINT OF CARE TESTI NG (MANUAL) Final Result documented in this encounter Visit Diagnoses Diagnosis Shortness of breath- Primary Upper respiratory tract infection, unspecified type documented in this encounter Additional Health Concerns Infection Onset Date Last Indicated Resolved Time COVID - 19 05/06/2023 05/06/2023 05/16/2023 12:1 8 AM WORK STATION SUPPORT SPECIALIST Respiratory Rule-Out 05/06/2023 05/06/2023 024 12:41 PM WORK STATION SUPPORT SPECIALIST documented as of this encounter Care Teams Lending Advisor Relationship Specialty Start Date End Date Provider, None [place] PCP - General 05/06/23 documented as of this encounter
--- OUTSIDE RECORDS SUMMARY | 2024-04-04 20:08 | XMS_ITS | Clinical Summary ---
Author Organization [facility] Address [address] [place] [address] Care Team Providers Care Husker Operator Name Role Phone Nikky Cunningham MD Primary [...] Department Care Team Description 03/20/2024 2:52 AM ADMINISTRATIVE SUPPORT ASSISTANT - 03/20/2024 8:10 AM ADMINISTRATIVE SUPPORT ASSISTANT Emergency [facility] Emergency Department [address] [place] [address] Aren Gomez MD Abdominal pain (Primary Dx); Biliary colic Discharge Disposition: Discharge to home or self care 03/03/2024 8:30 AM ADMINISTRATIVE SUPPORT ASSISTANT Office Visit [facility] G[facility]ology at [address] [place] [address] Rubio Martinez NP Irritable bowel syndrome with both constipation and diarrhea (Primary Dx); BRBPR (bright red blood per rectum); Nausea without vomiting; RUQ pain; Erosive esophagitis; Superficial gastritis without hemorrhage, unspecified chronicity; Tubular adenoma of colon; Hepatic steatosis 01/22/2024 11:09 AM CDT - 01/22/2024 11:59 PM CDT Hospital Encounter [address] [address] Discharge Disposition: Discharge to home or self care 01/22/2024 11:08 AM CDT - 01/22/2024 11:59 PM CDT Hospital Encounter [address] [address] Discharge Disposition: Discharge to home or self care 01/22/2024 11:08 AM CDT - 01/22/2024 11:59 PM CDT Hospital Encounter [facility] [address] [place] [address] Discharge Disposition: Discharge to home or self care 01/22/2024 11:08 AM CDT - 01/22/2024 11:59 PM CDT Hospital Encounter [facility] [address] [place] [address] Discharge Disposition: Discharge to home or self care 01/22/2024 11:00 AM CDT - 01/22/2024 11:59 PM CDT Hospital Encounter [facility] [address] [place] [address] Nausea and vomiting, unspecified vomiting type; Gastroesophageal [...] = 0.6 oz pur e alcohol) rarely [employer] Utilities Answer Date Recorded In the past 12 months has [employer], [employer], oil, or water [employer] website threatened to shut off services in your [...] often do you attend chur ch or holiness services? Never 06/20/2023 Do you belong to any clubs o r organizations such as oriental orthodox groups, unions, fraternal or athletic groups, or [...] on file Legal Sex Male 7:25 PM ADMINISTRATIVE SUPPORT ASSISTANT Gender Identity Not on file Sexual Orientation Not on file Obstetrics History Last Filed Vital Signs Vital Sign Reading Time Taken Comments Blood Pressure 151/92 03/20/2024 7:55 AM ADMINISTRATIVE SUPPORT ASSISTANT Pulse 88 03/20/2024 7:55 AM ADMINISTRATIVE SUPPORT ASSISTANT Temperature 35.8 ??C (96.4 ??F) 03/20/2024 2:55 AM CS T Respiratory Rate 16 03/20/2024 7:55 AM ADMINISTRATIVE SUPPORT ASSISTANT Oxygen Saturation 98% 03/20/2024 7:55 AM ADMINISTRATIVE SUPPORT ASSISTANT Inhaled Oxygen Concentration - - Weight 140.6 kg (310 lb) 03/20/2024 2:55 AM ADMINISTRATIVE SUPPORT ASSISTANT Height 180.3 cm (5' 11 ) 03/03/2024 8:31 AM ADMINISTRATIVE SUPPORT ASSISTANT Body Mass Index 43.24 03/03/2024 8:31 AM ADMINISTRATIVE SUPPORT ASSISTANT Plan of Treatment Health Maintenance Due Date [...] PELVIS W CONTRAST ED 03/20/2024 6:25 AM ADMINISTRATIVE SUPPORT ASSISTANT EGFR STAT 03/20/2024 3:08 AM ADMINISTRATIVE SUPPORT ASSISTANT DIFFERENTIAL AUTO STAT 03/20/2024 3:0 8 AM ADMINISTRATIVE SUPPORT ASSISTANT LIPASE STAT 03/20/2024 3:08 AM ADMINISTRATIVE SUPPORT ASSISTANT COMPREHENSIVE METABOLIC PANEL STAT 03/20/2024 3:08 AM ADMINISTRATIVE SUPPORT ASSISTANT CBC WITH AUTO DIFFERENTIAL STAT 03/20/2024 3:08 AM ADMINISTRATIVE SUPPORT ASSISTANT NM GASTRIC EMPTYING STUDY Schedule Routine, Read [...] Abdomen Pelvis W Contrast (03/20/2024 6:25 AM ADMINISTRATIVE SUPPORT ASSISTANT) Anatomical Region Laterality Modality Body N/A Computed Tomogra phy 03/20/2024 6:27 AM ADMINISTRATIVE SUPPORT ASSISTANT Narrative 03/20/2024 6:31 AM ADMINISTRATIVE SUPPORT ASSISTANT EXAM DESCRIPTION: ?? CT ABDOMEN PELVIS W [...] AM T: ??03/20/2024 6:31 AM Report ID: [id number] Reading Location: ??[id number] Procedure Note Alessio Arango Jr., MD - [...] Alessio Arango M.D. CH: LAINA Report ID: [id number] Reading Location: [place] [address] us Aren Gomez MD IMG CT PROCEDURES Final Resu lt * eGFR (03/20/2024 3:08 AM ADMINISTRATIVE SUPPORT ASSISTANT) eGFR >90 >=60 mL/min/1. 73 m2 Comment: [...] last reviewed 2021. Blood 03/20/2024 3:08 AM ADMINISTRATIVE SUPPORT ASSISTANT 03/20/2024 3:18 AM ADMINISTRATIVE SUPPORT ASSISTANT us Aren Gomez MD LAB BLOOD ORDERABLES Final R esult [facility]) 1 [facility] Department [place] [address] * Differential, auto (03/20/2024 3:08 AM ADMINISTRATIVE SUPPORT ASSISTANT) Neutrophil abs 3.4 1.5 - 6.5 K/cumm Imm gran abs 0.1 0.0 - 0.1 K/cumm [facility] ([place]) Lymphocyte abs 3.3 0.8 - 3.3 K/cumm [facility] ([place]) Monocyte abs 0.6 0.2 - 0.8 K/cumm [facility] ([place]) Eosinophil abs 0.1 0.0 - 0.5 K/cumm [...] revised on 2017. Blood 03/20/2024 3:08 AM ADMINISTRATIVE SUPPORT ASSISTANT 03/20/2024 3:18 AM ADMINISTRATIVE SUPPORT ASSISTANT us Aren Gomez MD LAB BLOOD ORDERABLES Final R esult [facility] ([place]) 1 [facility] Department [place] [address] * CBC with auto differential (03/20/2024 3:08 AM ADMINISTRATIVE SUPPORT ASSISTANT) WBC 7.6 3.8 - 9.9 K/cumm Hgb [...] ([place]) Blood (Blood, Venous) 03/20/2024 3:08 AM ADMINISTRATIVE SUPPORT ASSISTANT 03/20/2024 3:18 AM ADMINISTRATIVE SUPPORT ASSISTANT Aren Gomez MD LAB BLOOD ORDERABLES Final R esult Performing Organization Address City/[facility] Co de Phone Number [facility] 1 [facility] [place] [address] * Lipase (03/20/2024 3:08 AM ADMINISTRATIVE SUPPORT ASSISTANT) Lipase 47 10 - 99 Units/L Blood (Blood, Venous) 03/20/2024 3:08 AM ADMINISTRATIVE SUPPORT ASSISTANT 03/20/2024 3:18 AM ADMINISTRATIVE SUPPORT ASSISTANT Aren Gomez MD LAB BLOOD ORDERABLES Final R esult [facility] ([place] 1 [facility] [place] [address] * (ABNORMAL) Comprehensive metabolic panel (03/20/2024 3:08 AM ADMINISTRATIVE SUPPORT ASSISTANT) Sodium 141 135 - 145 mmol/L Potassium, [...] Hemolyzed S pecimen Blood 03/20/2024 3:08 AM ADMINISTRATIVE SUPPORT ASSISTANT 03/20/2024 3:18 AM ADMINISTRATIVE SUPPORT ASSISTANT us Aren Gomez MD LAB BLOOD ORDERABLES Final R esult [facility] ([place]) 1 [facility] Department [place] [address] * NM Gastric Emptying Study (01/22/2024 3:16 PM CDT) Anatomical Region Laterality Modality Body N/A Nuclear Medicine 01/22/2024 4:12 PM CDT Narrative 01/22/2024 4:13 PM CDT EXAM DESCRIPTION: ?? [place] GASTRIC EMPTYING STUDY RADIOPHARMACEUTICAL: 500 ??uCi Tc-99m [...] PM T: ??01/22/2024 4:13 PM Report ID: [id number] Reading Location: ??[id number] Procedure Note Anthony Olguin MD - 01/22/2024 EXAM DESCRIPTION: [place] GASTRIC EMPTYING STUDY RADIOPHARMACEUTICAL: 500 uCi Tc-99m [...] Anthony Olguin M.D. LB: PIO Report ID: [id number] Reading Location: [place] [address] us Rubio Adore Bilderback FISH NET STRINGER IMG NM PROCEDURES F inal Result * Hepatitis panel, acute (09/25/2019 7:23 AM CDT) HepBsAg NONREACT NONREACTIVE [facility] Comment: Siem[employer] CentaurXP using TAMMY (chemiluminescent immunoassay) technology. NONREACTIVE: IgM antibodies to Hepatitis B Surface antigen not detected. REACTIVE: IgM antibodies to Hepatitis B Surface antigen detected. Reactive results will be confirmed by neutralization testing. HBsAb qn 129.36 mIU/mL [facility] [place] Comment: [employer] CentaurXP using TAMMY (chemiluminescent immunoassay) technology. 9.99 IU/L or less.....NONREACTIVE: IgM antibodies to Hepatitis B Surface antibody are not detected. 10.00 IU/L or greater..REACTIVE: IgM antibodies to Hepatitis B Surface antibody are detected. Hep B core IgM NONREACT NONREACTIVE [facility] Comment: Siem[employer] CentaurXP using TAMMY (chemiluminescent immunoassay) technology. NONREACTIVE: IgM antibodies to Hepatitis B Core antigen not detected. EQUIVOCAL: IgM antibodies to Hepatitis B Core antigen may or may not be present. Obtain a ??new specimen and retest. REACTIVE: IgM antibodies to Hepatitis B Core antigen detected. Hep A IgM NONREACT NONREACTIVE [facility] Comment: [employer] CentaurXP using TAMMY (chemiluminescent immunoassay) technology. NONREACTIVE: IgM antibodies to Hepatitis A not detected. This does not exclude possibility of exposure to Hepatitis A or early acute infection. EQUIVOCAL:IgM antibodies to Hepatitis A may or may not be present. Suggest recollection and retest. REACTIVE: Antibodies to Hepatitis A detected. Hep C Ab NONREACT NONREACTIVE [facility] [place] [facility] Comment: Siem[employer] CentaurXP using TAMMY [...] OR DERABLES Final Result Performing Organization Address [facility] [place] [address], [facility] [phone] * (ABNORMAL) Hemoglobin A1c (09/25/2019 4:25 AM CDT) Hemoglobin A1c % 9.5(H) 4.0 - 5.6 % [facility] Comment: ADA 2016 GUIDELINES: ??Initial Diagnostic Criteria ? HbA1c Result: ?Interpretation: ?<5.7% ? Normal ?5.7-6.4% ?At risk for diabetes mellitus ?>=6.5% ?Consistent with diabetes mellitus ??Diabetes monitoring ? Target value (ADA Recommended) ?? <7% 09/25/2019 4:25 AM CDT 09/25/2019 5:43 AM CDT Narrative Resulting Agency Comment LENORA Anish Solis MD LAB BLOOD ORDERABLES Final Re sult Performing Organization Address [facility] [place] [address], [facility] [phone] * (ABNORMAL) Lipid panel (09/25/2019 4:25 AM CDT) Triglycerides 592(H) 0 - 149 mg/dL [facility] Comment: LDL(measured) to follow due to Triglycerides >250 mg/dL. National Lipid Association/NCEP Guidelines: ?? Normal ?< 150 mg/dL ?? Borderline high ?? 150-199 mg/dL ?? High ?200-499 mg/dL ?? Very High ? >=500 mg/dL Cholesterol 131 0 - 199 mg/dL [facility] Comment: National Lipid Association/NCEP Guidelines: Desirable ? < 200 mg/dL Borderline high: ??200-239 mg/dL High Risk: ?>=240 mg/dL HDL Cholesterol 20 mg/dL [facility] Comment: Reference Ranges: ? Males: >=40 mg/dL ? Females: >=50 mg/dL Cholesterol/HDL Ratio 6.6 [facility] Comment: Optimal ??< 3.5:1 High ? > 5:1 09/25/2019 4:25 AM CDT 09/25/2019 5:43 AM CDT Narrative Resulting Agency Comment LENORA Anish Solis MD LAB BLOOD ORDERABLES Final Re sult Performing Organization Address City/State/[facility] Co de Phone Number [facility] [address] [phone] from Last 3 Months or Most Recently Relevant to Health Maintenance Insurance [facility] ANTHEM ACCESS CHOICE [employer]PA ANTHEM ACCESS CHOICE Advance Directives For more information, please contact: [phone] * Full Code (Latest Code Status on File) Date Activated Date Inactivated Comments 06/19/2023 7:33 PM 06/21/2023 5:05 PM Care Teams Husker Operator Relationship Specialty Start Date End Date Griffon, Nikky Kayley, MD [address] [place] [address] [address] [place] [address] PCP - General Family Medicine 03/03/24
--- OUTSIDE RECORDS SUMMARY | 2024-04-04 20:08 | XMS_ITS | Encounter Summary ---
Author Organization [facility] Healthcare Address [address] [place] [address] Care Team Providers Care Donor Relations Officer Name Role Phone Starla Parham MD Primary Care Provider [phone] Reason for Visit * Reason Comments Abdominal Pain Encounter Details Date Type Department Care Team (Late st Contact Info) Description 09/17/2023 8:23 PM CDT - 09/17/2023 9:45 PM CDT Emergency [facility] Emergency Department [address] [place] [id number] Abdominal pain (Primary Dx) Discharge Disposition: Discharge to home or self care Social History Tobacco Use Types Packs/Day Years Used Date Smoking Tobacco: Never Smokeless Tobacco: Never Alcohol Use Standard Drinks/Week Comments Yes 0 (1 standard drink = 0.6 oz pur e alcohol) rarely [facility] Utilities Answer Date Recorded In the past [...] often do you attend chur ch or sikhism services? Never 06/20/2023 Do you belong to any clubs o r organizations such as adventist groups, unions, fraternal or athletic groups, or [...] on file Legal Sex Male 7:25 PM GROUND SUPPORT AGENT Gender Identity Not on file Sexual [...] * Unknown Causes of Abdominal Pain (Male) ([place] Citizen) documented in this encounter Medications at Time [...] and oriented to person, place, and time. [facility] Medical Decision Making 37-year-old A&O x4 male [...] diagnoses: Abdominal pain Karmen Murphy PA 09/17/23 [id number] Cosigned by La Hendrix MD at 09/18/2023 [...] PM T: ??09/17/2023 9:25 PM Report ID: [id number] Reading Location: ??[id number] Procedure Note Marquis Cedillo MD - 09/17/2023 [...] Marquis Cedillo M.D. RB: AB Report ID: [id number] Reading Location: [place] [address] PROCEDURES Final Result [...] LAB BLOOD ORDERABLES Fin al Result [facility] 1 [facility] Department [place] [address] * Differential, auto (09/17/2023 6:37 PM CDT) Neutrophil abs 6.0 1.5 - 6.5 K/cumm Imm gran abs 0.1 0.0 - 0.1 K/cumm [facility] ([place]) Lymphocyte abs 2.2 0.8 - 3.3 K/cumm [facility] ([place]) Monocyte abs 0.8 0.2 - 0.8 K/cumm [facility] ([place]) Eosinophil abs 0.1 0.0 - 0.5 K/cumm [facility] ([place]) Basophil abs 0.1 0.0 - 0.1 K/cumm [facility] ([place]) Neutrophil pct 65.3 % [facility] ([place]) Comment: Interpretive Data Percent cell count reference ranges are not reported, since discordance with absolute values may lead to misinterpretation of CBC data. Current Interpretive Data was last revised on 2017. Imm gran pct 0.9 % [facility] ([place]) Comment: Interpretive Data Percent cell count reference ranges are not reported, since discordance with absolute values may lead to misinterpretation of CBC data. Current Interpretive Data was last revised on 2017. Lymphocyte pct 23.6 % [facility] ([place]) Comment: Interpretive Data Percent cell count reference ranges are not reported, since discordance with absolute values may lead to misinterpretation of CBC data. Current Interpretive Data was last revised on 2017. Monocyte pct 8.7 % [facility] ([place]) Comment: Interpretive Data Percent cell count reference [...] BLOOD ORDERABLES Fin al Result [facility] ([place]) 1 [facility] of Laboratories [place] [id number] * Urinalysis reflex to microscopic and culture [...] tendency for uric acid stone formation. Source: [facility] [employer] Current Interpretive Data was last revised on 2017 Protein, ur ql Trace Negative [facility] ([place]) Glucose, ur ql Negative Negative [facility] ([place]) Ketones, ur Negative Negative [facility] ([place]) Bilirubin, ur Negative Negative [facility] ([place]) Blood, ur Negative Negative [facility] ([place]) Urobilinogen, ur <2.0 <2.0 mg/dL [facility] ([place]) Nitrite, ur Negative Negative [facility] Leukocyte esterase, ur Negative Negative [facility] ([place]) UA reflex comment Reflex conditions for microscopic UA and culture not met. [facility] ([place]) Urine 09/17/2023 6:37 PM CDT 09/17/2023 6:40 PM CDT Farnaz Jaquez MD LAB MICROBIOLOGY - GENER AL ORDERABLES Final Result Performing Organization Address [facility]/ZIP Co de Phone Number [facility] ([place]) 1 [facility] [place] [address] * Lipase (09/17/2023 6:37 PM CDT) Pathologist [facility] Lipase 29 10 - 99 Units/L Blood (Blood, Venous) 09/17/2023 6:37 PM CDT 09/17/2023 6:40 PM CDT Farnaz Jaquez MD LAB BLOOD ORDERABLES Fin al Result Performing Organization Address [facility] de Phone Number [facility] ([place]) 1 [facility] [place] [address] * (ABNORMAL) Comprehensive metabolic panel (09/17/2023 6:37 PM CDT) Sodium 137 135 - 145 mmol/L Potassium, pl 4.1 3.3 - 4.9 mmol/L [facility] ([place]) Chloride 100 97 - 110 mmol/L [facility] ([place]) CO2 24 22 - 32 mmol/L [facility] ([place]) Anion gap 13 2 - 15 mmol/L [facility] ([place]) BUN 11 6 - 25 mg/dL [facility] ([place]) Creatinine 0.72(L) 0.80 - 1.30 mg/dL [facility] ([place]) Glucose 87 70 - 199 mg/dL [facility] ([place]) Comment: Interpretive Data Fasting glucose >/= [...] Fin al Result [facility] ([place]) 1 [facility] Department [place] [address] * CBC with auto differential (09/17/2023 6:37 [...] BLOOD ORDERABLES Fin al Result [facility] ([place]) 1 [facility] Department [place] [address] documented in this encounter Visit Diagnoses Diagnosis [...] 09/17/2023 documented in this encounter Care Teams Donor Relations Officer Relationship Specialty Start Date End Date Starla Parham MD PCP - General Family Medicine 11/13/21 03/02/24 documented as of this encounter
--- OUTSIDE RECORDS SUMMARY | 2024-04-04 20:08 | XMS_ITS | Referral Summary ---
Author Organization [facility] Address [address] [place] [address] Care Team Providers Care Data Analytics Developer Name Role Phone Nikky Cunningham MD Primary Care Provider Encounters Date Type Department Care Team Description 03/20/2024 2:52 AM RECEIVING DISTRIBUTION STATION OPERATOR - 03/20/2024 8:10 AM RECEIVING DISTRIBUTION STATION OPERATOR Emergency [facility] Emergency Department [address] [place] [address] Aren Gomez MD Abdominal pain (Primary Dx); Biliary colic Discharge Disposition: Discharge to home or self care 03/03/2024 8:30 AM RECEIVING DISTRIBUTION STATION OPERATOR Office Visit [facility] Gastroenterology at [address] [place] [phone] Rubio Martinez NP Irritable bowel syndrome with both constipation and diarrhea (Primary Dx); BRBPR (bright red blood per rectum); Nausea without vomiting; RUQ pain; Erosive esophagitis; Superficial gastritis without hemorrhage, unspecified chronicity; Tubular adenoma of colon; Hepatic steatosis 01/22/2024 11:09 AM CDT - 01/22/2024 11:59 PM CDT Hospital Encounter [address] [address] Discharge Disposition: Discharge to home or self care 01/22/2024 11:08 AM CDT - 01/22/2024 11:59 PM CDT Hospital Encounter [address] [address] Discharge Disposition: Discharge to home or self care 01/22/2024 11:08 AM CDT - 01/22/2024 11:59 PM CDT Hospital Encounter [facility] [address] [place] [address] Discharge Disposition: Discharge to home or self care 01/22/2024 11:08 AM CDT - 01/22/2024 11:59 PM CDT Hospital Encounter [facility] [address] [place] [address] Discharge Disposition: Discharge to home or self care 01/22/2024 11:00 AM CDT - 01/22/2024 11:59 PM CDT Hospital Encounter [address] [address] Nausea and vomiting, unspecified vomiting type; Gastroesophageal [...] = 0.6 oz pur e alcohol) rarely [facility] Utilities Answer Date Recorded In the past 12 months has [email or web address], gas, oil, or water [employer] threatened to shut off services in your [...] place to sleep or slept in a group home (including now)? No 06/20/2023 Personal Safety [...] on file Legal Sex Male 7:25 PM RECEIVING DISTRIBUTION STATION OPERATOR Gender Identity Not on file Sexual Orientation Not on file Last Filed Vital Signs Vital Sign Reading Time Taken Comments Blood Pressure 151/92 03/20/2024 7:55 AM RECEIVING DISTRIBUTION STATION OPERATOR Pulse 88 03/20/2024 7:55 AM RECEIVING DISTRIBUTION STATION OPERATOR Temperature 35.8 ??C (96.4 ??F) 03/20/2024 2:55 AM CS T Respiratory Rate 16 03/20/2024 7:55 AM RECEIVING DISTRIBUTION STATION OPERATOR Oxygen Saturation 98% 03/20/2024 7:55 AM RECEIVING DISTRIBUTION STATION OPERATOR Inhaled Oxygen Concentration - - Weight 140.6 kg (310 lb) 03/20/2024 2:55 AM RECEIVING DISTRIBUTION STATION OPERATOR Height 180.3 cm (5' 11 ) 03/03/2024 8:31 AM RECEIVING DISTRIBUTION STATION OPERATOR Body Mass Index 43.24 03/03/2024 8:31 AM RECEIVING DISTRIBUTION STATION OPERATOR Plan of Treatment Not on file Procedures Procedure Name Priority Date/Time Associated Diagnosis Comments CT ABDOMEN PELVIS W CONTRAST ED 03/20/2024 6:25 AM RECEIVING DISTRIBUTION STATION OPERATOR EGFR STAT 03/20/2024 3:08 AM RECEIVING DISTRIBUTION STATION OPERATOR DIFFERENTIAL AUTO STAT 03/20/2024 3:0 8 AM RECEIVING DISTRIBUTION STATION OPERATOR LIPASE STAT 03/20/2024 3:08 AM RECEIVING DISTRIBUTION STATION OPERATOR COMPREHENSIVE METABOLIC PANEL STAT 03/20/2024 3:08 AM RECEIVING DISTRIBUTION STATION OPERATOR CBC WITH AUTO DIFFERENTIAL STAT 03/20/2024 3:08 AM RECEIVING DISTRIBUTION STATION OPERATOR NM GASTRIC EMPTYING STUDY Schedule Routine, Read [...] Abdomen Pelvis W Contrast (03/20/2024 6:25 AM RECEIVING DISTRIBUTION STATION OPERATOR) Anatomical Region Laterality Modality Body N/A Computed Tomogra phy 03/20/2024 6:27 AM RECEIVING DISTRIBUTION STATION OPERATOR Narrative 03/20/2024 6:31 AM RECEIVING DISTRIBUTION STATION OPERATOR EXAM DESCRIPTION: ?? CT ABDOMEN PELVIS W [...] AM T: ??03/20/2024 6:31 AM Report ID: [id number] Reading Location: ??[id number] Procedure Note Alessio Arango Jr., MD - [...] Alessio Arango M.D. CH: LAINA Report ID: [id number] Reading Location: [id number] Aren Gomez MD IMG CT PROCEDURES Final Resu lt * eGFR (03/20/2024 3:08 AM RECEIVING DISTRIBUTION STATION OPERATOR) eGFR >90 >=60 mL/min/1. 73 m2 Comment: [...] last reviewed 2021. Blood 03/20/2024 3:08 AM RECEIVING DISTRIBUTION STATION OPERATOR 03/20/2024 3:18 AM RECEIVING DISTRIBUTION STATION OPERATOR Aren Gomez MD LAB BLOOD ORDERABLES Final R esult [facility] ([place]) 1 [facility] [place] [address] * Differential, auto (03/20/2024 3:08 AM RECEIVING DISTRIBUTION STATION OPERATOR) Neutrophil abs 3.4 1.5 - 6.5 K/cumm [...] Neutrophil pct 45.3 % [facility] ([place]) Comment: Interpretive Data Percent cell count reference ranges are not reported, since discordance with absolute values may lead to misinterpretation of CBC data. Current Interpretive Data was last revised on 2017. Imm gran pct 1.1 % [facility] ([place]) Comment: Interpretive Data Percent cell count reference [...] Eosinophil pct 1.8 % [facility] Comment: Interpretive Data Percent cell count reference [...] revised on 2017. Blood 03/20/2024 3:08 AM RECEIVING DISTRIBUTION STATION OPERATOR 03/20/2024 3:18 AM RECEIVING DISTRIBUTION STATION OPERATOR Aren Gomez MD LAB BLOOD ORDERABLES Final R esult [facility] ([place]) [address] [facility] [place] [address] * CBC with auto differential (03/20/2024 3:08 AM RECEIVING DISTRIBUTION STATION OPERATOR) WBC 7.6 3.8 - 9.9 K/cumm Hgb [...] (FLY) Blood (Blood, Venous) 03/20/2024 3:08 AM RECEIVING DISTRIBUTION STATION OPERATOR 03/20/2024 3:18 AM RECEIVING DISTRIBUTION STATION OPERATOR Aren Gomez MD LAB BLOOD ORDERABLES Final R esult [facility] ([place]) [address] [facility] [place] [address] * Lipase (03/20/2024 3:08 AM RECEIVING DISTRIBUTION STATION OPERATOR) Lipase 47 10 - 99 Units/L Blood (Blood, Venous) 03/20/2024 3:08 AM RECEIVING DISTRIBUTION STATION OPERATOR 03/20/2024 3:18 AM RECEIVING DISTRIBUTION STATION OPERATOR Aren Gomez MD LAB BLOOD ORDERABLES Final R esult [facility] ([place]) [address] [facility] Department [place] [address] * (ABNORMAL) Comprehensive metabolic panel (03/20/2024 3:08 AM RECEIVING DISTRIBUTION STATION OPERATOR) Sodium 141 135 - 145 mmol/L Potassium, [...] Hemolyzed S pecimen Blood 03/20/2024 3:08 AM RECEIVING DISTRIBUTION STATION OPERATOR 03/20/2024 3:18 AM RECEIVING DISTRIBUTION STATION OPERATOR us Aren Gomez MD LAB BLOOD ORDERABLES Final R esult [facility] ([place]) [address] [facility] Department [place] [address] * NM Gastric Emptying Study (01/22/2024 3:16 [...] 01/22/2024 4:13 PM - Electronically signed by ??Antohny Olguin M.D. LB: PIO D: ??01/22/2024 4:13 PM T: ??01/22/2024 4:13 PM Report ID: [id number] Reading Location: ??[id number] Procedure Note Anthony Olguin MD - 01/22/2024 [...] Anthony Olguin M.D. LB: LB Report ID: [id number] Reading Location: [id number] us Rubio Adore Bilderback STAPLE CUTTER IMG NM PROCEDURES F inal Result * Hepatitis panel, acute (09/25/2019 7:23 AM CDT) HepBsAg NONREACT NONREACTIVE [facility] Comment: Siemens CentaurXP using TAMMY (chemiluminescent immunoassay) technology. NONREACTIVE: IgM antibodies to Hepatitis B Surface antigen not detected. REACTIVE: IgM antibodies to Hepatitis B Surface antigen detected. Reactive results will be confirmed by neutralization testing. HBsAb qn 129.36 mIU/mL [facility] Comment: Siemens CentaurXP using TAMMY (chemiluminescent immunoassay) technology. 9.99 IU/L or less.....NONREACTIVE: IgM antibodies to Hepatitis B Surface antibody are not detected. 10.00 IU/L or greater..REACTIVE: IgM antibodies to Hepatitis B Surface antibody are detected. Hep B core IgM NONREACT NONREACTIVE [facility] Comment: Siemens CentaurXP using TAMMY (chemiluminescent immunoassay) technology. NONREACTIVE: IgM antibodies to Hepatitis B Core antigen not detected. EQUIVOCAL: IgM antibodies to Hepatitis B Core antigen may or may not be present. Obtain a ??new specimen and retest. REACTIVE: IgM antibodies to Hepatitis B Core antigen detected. Hep A IgM NONREACT NONREACTIVE [facility] Comment: Siemens CentaurXP using TAMMY (chemiluminescent immunoassay) technology. NONREACTIVE: IgM antibodies to Hepatitis A not detected. This does not exclude possibility of exposure to Hepatitis A or early acute infection. EQUIVOCAL:IgM antibodies to Hepatitis A may or may not be present. Suggest recollection and retest. REACTIVE: Antibodies to Hepatitis A detected. Hep C Ab NONREACT NONREACTIVE [facility] Comment: Siemens CentaurXP using TAMMY (chemiluminescent immunoassay) [...] OR DERABLES Final Result Performing Organization Address City/State/[facility] Co de Phone Number [facility] [address] [phone] * (ABNORMAL) Hemoglobin A1c (09/25/2019 4:25 AM CDT) Hemoglobin A1c % 9.5(H) 4.0 - 5.6 % [facility] Comment: ADA 2016 GUIDELINES: ??Initial Diagnostic Criteria ? HbA1c Result: ?Interpretation: ?<5.7% ? Normal ?5.7-6.4% ?At risk for diabetes mellitus ?>=6.5% ?Consistent with diabetes mellitus ??Diabetes monitoring ? Target value (ADA Recommended) ?? <7% 09/25/2019 4:25 AM CDT 09/25/2019 5:43 AM CDT Narrative Resulting Agency Comment LENORA Anish Solis MD LAB BLOOD ORDERABLES Final Re sult Performing Organization Address [facility] Co de Phone Number [address] [phone] * (ABNORMAL) Lipid panel (09/25/2019 4:25 AM CDT) Triglycerides 592(H) 0 - 149 mg/dL [facility] Comment: LDL(measured) to follow due to Triglycerides >250 mg/dL. National Lipid Association/NCEP Guidelines: ?? Normal ?< 150 mg/dL ?? Borderline high ?? 150-199 mg/dL ?? High ?200-499 mg/dL ?? Very High ? >=500 mg/dL Cholesterol 131 0 - 199 mg/dL [facility] Comment: National Lipid Association/NCEP Guidelines: Desirable ? < 200 mg/dL Borderline high: ??200-239 mg/dL High Risk: ?>=240 mg/dL HDL Cholesterol 20 mg/dL [facility] Comment: Reference Ranges: ? Males: >=40 mg/dL ? Females: >=50 mg/dL Cholesterol/HDL Ratio 6.6 [facility] Comment: Optimal ??< 3.5:1 High ? > 5:1 09/25/2019 4:25 AM CDT 09/25/2019 5:43 AM CDT Narrative Resulting Agency Comment LENORA Anish Solis MD LAB BLOOD ORDERABLES Final Re sult [facility] [address] [place] [address], [facility] [phone] from Last 3 Months or Most Recently Relevant to Health Maintenance Insurance [facility] ACCESS CHOICE [facility] ACCESS CHOICE Advance Directives For more information, please contact: [phone] * Full Code (Latest Code Status on File) Date Activated Date Inactivated Comments 06/19/2023 7:33 PM 06/21/2023 5:05 PM Care Teams Data Analytics Developer Relationship Specialty Start Date End Date Nikky Cunningham MD [address] [place] [address] [address] [place] [address] PCP - General Family Medicine 03/03/24
--- OUTSIDE RECORDS SUMMARY | 2024-04-04 20:08 | XMS_ITS | Encounter Summary ---
Author Organization [facility] Address [address] [place] [address] Care Team Providers Care Sales Operations Lead Name Role Phone Starla Parham MD Primary Care Provider Reason for Visit * Diagnostic Imaging (Routine) - Closed Specialty Diagnoses / Procedures Referred By Contac t Referred To Contact Diagnoses Nausea and vomiting, unspecified vomiting type Gastroesophageal reflux disease, unspecified whether esophagitis present Procedures NM Gastric Emptying Study Rubio Martinez NP [address] [place] [address] Phone: tel: fax: [address] [address] Referral ID Status Reason Start Date Expiration Date Visits Re quested Visits Authorized [id number] Closed 12/03/2023 01/01/2025 5 1 Encounter Details Date Type Department Care Team (Latest Contact Info) Description 01/22/2024 11:09 AM CDT - 01/22/2024 11:59 PM CDT Hospital Encounter [facility] [address] [place] [address] Discharge Disposition: Discharge to home or self [...] often do you attend chur ch or quaker services? Never 06/20/2023 Do you belong to any clubs o r organizations such as hindu groups, unions, fraternal or athletic groups, or [...] place to sleep or slept in a halfway (including now)? No 06/20/2023 Personal Safety Answer [...] on file Legal Sex Male 7:25 PM QUALITY NURSE Gender Identity Not on file Sexual [...] blood sugar diagnostic (ONETOUCH VERIO TEST STRIPS [facility]) OneTouch Verio test strips cholecalciferol (VITAMIN D-3) [...] PM T: ??01/22/2024 4:13 PM Report ID: [id number] Reading Location: ??[id number] Procedure Note Anthony Olguin MD - 01/22/2024 [...] Anthony Olguin M.D. LB: PIO Report ID: [id number] Reading Location: [id number] us Rubio Adore Martinez EXECUTIVE ASST IMG NM PROCEDURES F inal Result documented in this encounter Visit Diagnoses Not on filedocumented in this encounter Care Teams Sales Operations Lead Relationship Specialty Start Date End Date Starla Parham MD PCP - General Family Medicine 11/13/21 03/02/24 documented as of this encounter
--- OUTSIDE RECORDS SUMMARY | 2024-04-04 20:08 | XMS_ITS | Encounter Summary ---
Author Organization [facility] Healthcare Address [address] [place] [address] Care Team Providers Care Geothermal System Installer Name Role Phone Starla Parham MD Primary Care Provider [phone] Encounter Details Date Type Department Care Team (Late st Contact Info) Description 12/11/2023 Telephone [facility] Gastroenterology at [address] [place] [address] Rubio Martinez NP 4 [facility] [address] [place] [address] Social History Tobacco Use Types Packs/Day Years Used Date Smoking Tobacco: Never Smokeless Tobacco: Never Alcohol Use Standard Drinks/Week Comments Yes 0 (1 standard drink = 0.6 oz pur e alcohol) rarely [facility] Utilities Answer Date Recorded In the past 12 months has [employer], gas, oil, or water company threatened [...] often do you attend chur ch or moravian services? Never 06/20/2023 Do you belong to any clubs o r organizations such as islam groups, unions, fraternal or athletic groups, or [...] on file Legal Sex Male 7:25 PM MEDICAL TRANSCRIPTION Gender Identity Not on file Sexual Orientation [...] on filedocumented in this encounter Care Teams Geothermal System Installer Relationship Specialty Start Date End Date Starla Parham MD PCP - General Family Medicine 11/13/21 03/02/24 documented as of this encounter
--- OUTSIDE RECORDS SUMMARY | 2024-04-04 20:08 | XMS_ITS | Encounter Summary ---
Author Organization [facility] Healthcare Address [address] [place] [address] Care Team Providers Care Pace Analyst Name Role Phone Nikky Cunningham MD Primary Care Provider Reason for Visit * Reason Comments Abdominal Pain Encounter Details Date Type Department Care Team (Late st Contact Info) Description 03/20/2024 2:52 AM LOCAL COMPANY HAZMAT DRIVER - 03/20/2024 8:10 AM [facility] Emergency [facility] Emergency Department [address] [place] [address] Aren Gomez MD [address] [place] [address] Abdominal pain (Primary Dx); Biliary colic Discharge Disposition: Discharge to home or self care Social History Tobacco Use Types Packs/Day Years Used Date Smoking Tobacco: Never Smokeless Tobacco: Never Alcohol Use Standard Drinks/Week Comments Yes 0 (1 standard drink = 0.6 oz pur e alcohol) rarely [facility] Utilities Answer Date Recorded In the past 12 months has [employer], gas, oil, or water [employer] threatened to shut off services in your [...] How often do you attend chur or islam services? Never 06/20/2023 Do you belong to any clubs o r organizations such as mosque groups, unions, fraternal or athletic groups, or [...] on file Legal Sex Male 7:25 PM LOCAL COMPANY HAZMAT DRIVER Gender Identity Not on file Sexual Orientation Not on file documented as of this encounter Last Filed Vital Signs Vital Sign Reading Time Taken Comments Blood Pressure 151/92 03/20/2024 7:55 AM LOCAL COMPANY HAZMAT DRIVER Pulse 88 03/20/2024 7:55 AM LOCAL COMPANY HAZMAT DRIVER Temperature 35.8 ??C (96.4 ??F) 03/20/2024 2:55 AM CS T Respiratory Rate 16 03/20/2024 7:55 AM LOC[employer] COMPANY HAZMAT DRIVER Oxygen Saturation 98% 03/20/2024 7:55 AM LOC[employer] COMPANY HAZMAT DRIVER Inhaled Oxygen Concentration - - Weight 140.6 kg (310 lb) 03/20/2024 2:55 AM LOC[employer] COMPANY HAZMAT DRIVER Height - - Body Mass Index 43.24 03/03/2024 8:31 AM [employer] HAZMAT DRIVER documented in this encounter Discharge Instructions * Discharge Instructions* Markel Hines MD - 03/20/2024 7:34 AM [employer] COMPANY HAZMAT DRIVER Continue home medication, schedule HIDA scan. [employer] HAZMAT DRIVER documented in this encounter Medications at Time [...] and oriented to person, place, and time. [facility] Medical Decision Making ED Course as of 04/01/246[address] Time: 03/20 647 Comment: Inform patient about his lab work, CT findings. Recommended him to follow up with his primary doctor and get outpatient HIDA scan By: Markel Hines MD Final diagnoses: Abdominal pain Biliary colic Aren Gomez MD 03/20/[address] Aren Gomez MD 04/01/[address] [employer] HAZMAT DRIVER [employer] DRIVER * Latanya Baptiste NP - 03/20/2024 2:52 [...] that he also has hx of pancreatitis. [employer] DRIVER documented in this encounter Miscellaneous Notes * [...] HIDA scan.. Markel Hines MD 03/20/24 0733 [employer] HAZMAT DRIVER documented in this encounter Plan of Treatment Not on file documented as of this encounter Procedures Procedure Name Priority Date/Time Associated Diagnosis Comments CT ABDOMEN PELVIS W CONTRAST ED 03/20/2024 6:25 AM LOCAL COMPANY HAZMAT DRIVER EGFR STAT 03/20/2024 3:08 AM LOCAL COMPANY HAZMAT DRIVER DIFFERENTIAL AUTO STAT 03/20/2024 3:0 8 AM [employer] COMPANY HAZMAT DRIVER CBC WITH AUTO DIFFERENTIAL STAT 03/20/2024 3:08 AM LOCAL COMPANY HAZMAT DRIVER LIPASE STAT 03/20/2024 3:08 AM LOCAL COMPANY HAZMAT DRIVER COMPREHENSIVE METABOLIC PANEL STAT 03/20/2024 3:08 AM LOCAL COMPANY HAZMAT DRIVER documented in this encounter Results * CT Abdomen Pelvis W Contrast (03/20/2024 6:25 AM LOC[employer] COMPANY HAZMAT DRIVER) Anatomical Region Laterality Modality Body N/A Computed Tomogra phy 03/20/2024 6:27 AM LOC[employer] COMPANY HAZMAT DRIVER Narrative 03/20/2024 6:31 AM LOCAL COMPANY HAZMAT DRIVER EXAM DESCRIPTION: ?? CT ABDOMEN PELVIS W [...] AM T: ??03/20/2024 6:31 AM Report ID: [id number] Reading Location: ??[id number] Procedure Note Alessio Arango Jr., MD - [...] Alessio Arango M.D. CH: LAINA Report ID: [id number] Reading Location: [place] [address] us Aren Gomez MD IMG CT PROCEDURES Final Resu lt * eGFR (03/20/2024 3:08 AM LOCAL COMPANY HAZMAT DRIVER) eGFR >90 >=60 mL/min/1. 73 m2 Comment: [...] last reviewed 2021. Blood 03/20/2024 3:08 AM LOCAL COMPANY HAZMAT DRIVER 03/20/2024 3:18 AM LOCAL COMPANY HAZMAT DRIVER us Aren Gomez MD LAB BLOOD ORDERABLES Final R esult [facility] ([place]) 1 [facility] Department [place] [address] * Differential, auto (03/20/2024 3:08 AM LOCAL COMPANY HAZMAT DRIVER) Neutrophil abs 3.4 1.5 - 6.5 K/cumm Imm gran abs 0.1 0.0 - 0.1 K/cumm [facility] ([place]) Lymphocyte abs 3.3 0.8 - 3.3 K/cumm [facility] ([place]) Monocyte abs 0.6 0.2 - 0.8 K/cumm [facility] ([place]) Eosinophil abs 0.1 0.0 - 0.5 K/cumm [facility] ([place]) Basophil abs 0.1 0.0 - 0.1 K/cumm [facility] ([place]) Neutrophil pct 45.3 % [facility] [...] revised on 2017. Blood 03/20/2024 3:08 AM LOC[employer] COMPANY HAZMAT DRIVER 03/20/2024 3:18 AM LOC[employer] COMPANY HAZMAT DRIVER us Aren Gomez MD LAB BLOOD ORDERABLES Final R esult [facility] ([place]) 1 [facility] Department [place] [address] * Lipase (03/20/2024 3:08 AM LOCAL COMPANY HAZMAT DRIVER) Lipase 47 10 - 99 Units/L Blood (Blood, Venous) 03/20/2024 3:08 AM LOC[employer] COMPANY HAZMAT DRIVER 03/20/2024 3:18 AM LOC[employer] COMPANY HAZMAT DRIVER us Aren Gomez MD LAB BLOOD ORDERABLES Final R esult [facility] ([place]) 1 [facility] Department [place] [address] * (ABNORMAL) Comprehensive metabolic panel (03/20/2024 3:08 AM LOCAL COMPANY HAZMAT DRIVER) Sodium 141 135 - 145 mmol/L Potassium, [...] Hemolyzed S pecimen Blood 03/20/2024 3:08 AM LOCAL COMPANY HAZMAT DRIVER 03/20/2024 3:18 AM LOCAL COMPANY HAZMAT DRIVER Aren Gomez MD LAB BLOOD ORDERABLES Final R esult Performing Organization Address City/[facility] Co de Phone Number [facility] ([place]) 1 [facility] [place] [address] * CBC with auto differential (03/20/2024 3:08 AM LOCAL COMPANY HAZMAT DRIVER) WBC 7.6 3.8 - 9.9 K/cumm Hgb [...] (FLY) Blood (Blood, Venous) 03/20/2024 3:08 AM LOCAL COMPANY HAZMAT DRIVER 03/20/2024 3:18 AM LOCAL COMPANY HAZMAT DRIVER Aren Gomez MD LAB BLOOD ORDERABLES Final R esult [facility] ([place]) 1 [facility] [place] [address] documented in this encounter Visit Diagnoses Diagnosis [...] For 1 dose Given 03/20/2024 6:03 AM LOCAL COMPANY HAZMAT DRIVER 40 mL amLODIPine (NORVASC) tablet 5 mg 5 mg, oral, Once, On Sat03/20/24 at 0652, For 1 dose Given 03/20/2024 6:58 AM LOCAL COMPANY HAZMAT DRIVER 5 mg fentaNYL (SUBLIMAZE) preservative free injection 50 mcg 50 mcg, intravenous, Once, On Sat03/20/24 at 0557, For 1 dose Given 03/20/2024 6:04 AM LOCAL COMPANY HAZMAT DRIVER 50 mcg ioversoL (OPTIRAY 350) syringe 100 mL 100 mL, intravenous, Once in imaging, contrast, Starting on Sat03/20/24 at 0611, For 1 dose Contrast Given 03/20/2024 6:25 AM LOCAL COMPANY HAZMAT DRIVER 100 mL Right Antecubital ondansetron (ZOFRAN) injection 4 mg 4 mg, intravenous, Administer over 2 Minutes, Once, On Sat03/20/24 at 0417, For 1 dose Given 03/20/2024 4:18 AM LOCAL COMPANY HAZMAT DRIVER 4 mg pantoprazole (PROTONIX) 40 mg in [...] s:Stress Ulcer Prophylaxis Given 03/20/2024 6:03 AM LOCAL COMPANY HAZMAT DRIVER 40 mg 300 mL/hr documented in this encounter Active and Recently Administered Medications Times are shown in LOC[employer] COMPANY HAZMAT DRIVER. Scheduled Medication Order 03/18/2024 03/19/2024 03/20/2024 al [...] RT) documented in this encounter Care Teams Pace Analyst Relationship Specialty Start Date End Date Nikky Cunningham MD [address] [place] [address] [address] [place] [address] PCP - General Family Medicine 03/03/24 documented as of this encounter
--- OUTSIDE RECORDS SUMMARY | 2024-04-04 20:08 | XMS_ITS | Encounter Summary ---
Author Organization [facility] Healthcare Address [address] [place] [address] Care Team Providers Care Neon Sign Maker Name Role Phone Nikky Cunningham MD Primary [...] (Latest Contact Info) Description 03/03/2024 8:30 AM BAR FINISH OPERATOR Office Visit [facility] Gastroenterology at [address] [place] [address] Rubio Martinez NP [address] [place] [address] [address] [place] [address] Irritable bowel syndrome with both constipation and [...] oz pur e alcohol) rarely [facility] Utilities Answer Date Recorded In the past 12 months has [employer] electric, gas, oil, or water company threatened [...] often do you attend chur ch or worship services? Never 06/20/2023 Do you belong to any clubs o r organizations such as sabianist groups, unions, fraternal or athletic groups, or [...] place to sleep or slept in a fci (including now)? No 06/20/2023 Personal Safety Answer [...] on file Legal Sex Male 7:25 PM BAR FINISH OPERATOR Gender Identity Not on file Sexual Orientation Not on file documented as of this encounter Last Filed Vital Signs Vital Sign Reading Time Taken Comments Blood Pressure 135/92 03/03/2024 8:31 AM BAR FINISH OPERATOR Pulse 104 03/03/2024 8:31 AM BAR FINISH OPERATOR Temperature - - Respiratory Rate - - Oxygen Saturation 97% 03/03/2024 8:31 AM BAR FINISH OPERATOR Inhaled Oxygen Concentration - - Weight 150 kg (330 lb 12.8 oz) 03/03/2024 8:31 A M BAR FINISH OPERATOR Height 180.3 cm (5' 11 ) 03/03/2024 8:31 AM BAR FINISH OPERATOR Body Mass Index 46.14 03/03/2024 8:31 AM BAR FINISH OPERATOR documented in this encounter Patient Instructions * Patient Instructions* Rubio Martinez NP - 03/03/2024 8:30 AM BAR FINISH OPERATOR The most common cause of diarrhea and [...] scan to rule out gallbladder dysfunction, call: [phone] If you go to [employer], you can download a copay card that may cover the cost of your copay... Your next colonoscopy is due in 3 years, 07/26. FINISH OPERATOR FINISH OPERATOR FINISH OPERATOR FINISH OPERATOR FINISH OPERATOR documented in this encounter Ordered Prescriptions Prescription [...] blood sugar diagnostic (ONETOUCH VERIO TEST STRIPS [facility] [place] OneTouch Verio test strips [...] thickening or pericholecystic fluid. No positive sonographic Ludowici sign reported. BILIARY: Common bile duct measuring [...] time spent on the date of the aefl-ly-begj encounter, including both rfml-ix-huqq time (including staff/provider time spent providing education) and scb-baxi-nl-face time (pre-charting, reviewing chart, post-charting) was 45 minutes. This note is dictated and transcribed by [employer]. Kennel Supervisor variances may occur. Despite proofreading, typographical errors may occur. My collaborating physicians are Dr. Allan Peñaloza & Dr. Hanane Bhakta-Gastroenterology. Rubio Martinez NP FINISH OPERATOR documented in this encounter Plan of [...] disease documented in this encounter Care Teams Neon Sign Maker Relationship Specialty Start Date End Date Nikky Cunningham MD [address] [place] [address] [address] [place] [address] PCP - General Family Medicine 03/03/24 documented as of this encounter
--- OUTSIDE RECORDS SUMMARY | 2024-04-04 20:08 | XMS_ITS | Encounter Summary ---
Author Organization [facility] Healthcare Address [address] [place] [address] Care Team Providers Care Balance Wheel Screw Hole Tapper Name Role Phone Starla Parham MD Primary Care Provider [phone] Encounter Details Date Type Department Care Team (Late st Contact Info) Description 12/03/2023 2:20 PM CDT [address] Nausea and vomiting, unspecified vomiting type; Irritable bowel syndrome with both constipation and diarrhea; Gastroesophageal reflux disease, unspecified whether esophagitis present Social History Tobacco Use Types Packs/Day Years Used Date Smoking Tobacco: Never Smokeless Tobacco: Never Alcohol Use Standard Drinks/Week Comments Yes 0 (1 standard drink = 0.6 oz pur e alcohol) rarely [facility] Utilities Answer Date Recorded In the past 12 months has [employer] electric, gas, oil, or water company [...] often do you attend chur ch or yarsani services? Never 06/20/2023 Do you belong to [...] on file Legal Sex Male 7:25 PM NIB ASSEMBLER Gender Identity Not on file Sexual Orientation [...] Ab) (12/03/2023 2:18 PM CDT) Pathologist [facility] TTG ab, IgA <1.2 <4.0 (Negative) units/mL Comment: Test Performed by: [facility] [address] [place] [address] Editor Map: Hiro Crystal Ph.D.; CLIA# [id number] Interpretive data Negative: <15 units/mL Positive: > or equal to 15 units/mL Current interpretive data was last revised on 2016. Testing performed by: [facility], [address] [place]., [address] Blood 12/03/2023 2:18 PM CDT 12/03/2023 3:47 PM CDT us Rubio Martinez PERFORMANCE REPORTER LAB BLOOD ORDERABLE S Final Result [facility] ([place]) 1 [facility] Department [place] [address] * Vitamin B12 (12/03/2023 2:18 PM CDT) Vitamin B12 300 230 - 1,250 pg/mL Blood 12/03/2023 2:18 PM CDT 12/03/2023 3:47 PM CDT [facility] LAB BLOOD ORDERABLE S Final Result Performing Organization Address City/[facility]/ZIP Co de Phone Number [facility] ([place]) 1 [facility] [place] [address] * Magnesium (12/03/2023 2:18 PM CDT) Magnesium 1.8 1.4 - 2.5 mg/dL Blood 12/03/2023 2:18 PM CDT 12/03/2023 3:47 PM CDT [facility] LAB BLOOD ORDERABLE S Final Result Performing Organization Address [facility] de Phone Number [facility] ([place]) [address] [facility] [place] [address] * Folate (12/03/2023 2:18 PM CDT) Folic acid 12.7 >=5.0 ng/mL Comment:Slightly Hemolyzed S pecimen. Results may be affected. Blood 12/03/2023 2:18 PM CDT 12/03/2023 3:47 PM CDT [facility] LAB BLOOD ORDERABLE S Final Result Performing Organization Address City/[facility] Co de Phone Number [facility] ([place]) [address] [facility] [place] [address] * Thyroid Function [place] (12/03/2023 2:18 PM CDT) TSH 1.77 0.30 - 4.20 mcIUnit/mL Blood 12/03/2023 2:18 PM CDT 12/03/2023 3:47 PM CDT [facility] S Final Result Performing Organization Address [facility]/ZIP Co de Phone Number [facility] ([place]) [address] [facility] [place] [address] * Celiac reflex panel (12/03/2023 2:18 PM CDT) IgA 87 61 - 356 mg/dL [facility] Celiac disease interpretation See Comment IS[facility]IRIAM [facility] ([place]) Comment: See Comment: Negative serology. Celiac disease unlikely. However, approximately 10% of patients with celiac disease are seronegative. Also, patients who are already adhering to a gluten-free diet may be seronegative. If celiac disease is highly clinically suspected, consider HLA-DQ typing. Test Performed by: [place] [address] Editor Map: Hiro Crystal Ph.D.; CLIA# [id number] Blood 12/03/2023 2:18 PM CDT 12/03/2023 3:47 PM CDT Rubioheena Martinez LAB BLOOD ORDERABLE S Final Result Performing Organization Address [facility] de Phone Number [facility] ([place]) [address] [place] [address] [facility] * (ABNORMAL) Iron profile w/ IBC (12/03/2023 2:18 PM CDT) Iron 60 50 - 150 mcg/dL TIBC 366 250 - 400 mcg/dL [facility] ([place]) Transferrin saturation 16(L) 20 - 50 % [facility] ([place]) Blood 12/03/2023 2:18 PM CDT 12/03/2023 3:47 PM CDT [facility] LAB BLOOD ORDERABLE S Final Result Performing Organization Address City/[facility]/ZIP Co de Phone Number [facility] ([place]) [address] [facility] [place] [address] * (ABNORMAL) Vitamin D 25 hydroxy (12/03/2023 2:18 PM CDT) Vitamin D 25-OH 23(L) 30 - 80 ng/mL Blood 12/03/2023 2:18 PM CDT 12/03/2023 3:47 PM CDT Rubio Martinez PERFORMANCE REPORTER LAB BLOOD ORDERABLE S Final Result [facility] ([place]) 1 [facility] [place] [address] documented in this encounter Visit Diagnoses Diagnosis Nausea and vomiting, unspecified vomiting type Irritable bowel syndrome with both constipation and diarrhea Gastroesophageal reflux disease, unspecified whether esophagitis present documented in this encounter Care Teams Balance Wheel Screw Hole Tapper Relationship Specialty Start Date End Date Starla Parham MD PCP - General Family Medicine 11/13/21 03/02/24 documented as of this encounter
--- OUTSIDE RECORDS SUMMARY | 2024-04-04 20:08 | XMS_ITS | Encounter Summary ---
Author Organization [facility] Care Team Providers Care Card Reader Name Role Phone Provider, None Primary Care Provider Unavailabl e Encounter Details Date Type Department Care Team (Latest Contact Info) Description 05/06/2023 Travel Social History Tobacco Use Types Packs/Day Years Used Date Smoking Tobacco: Never Smokeless Tobacco: Never Sex and Gender Information Value Date Recorded Sex Assigned at Not on file Legal Sex Male 11:59 AM BED RUBBER Gender Identity Not on file Sexual Orientation Not on file documented as of this encounter Plan of Treatment Not on file documented as of this encounter Visit Diagnoses Not on filedocumented in this encounter Additional Health Concerns Infection Onset Date Last Indicated Resolved Time COVID - 19 05/06/2023 05/06/2023 05/16/2023 12:1 8 AM BED RUBBER Respiratory Rule-Out 05/06/2023 05/06/2023 024 12:41 PM BED RUBBER documented as of this encounter Care Teams Card Reader Relationship Specialty Start Date End Date Provider, None [place] PCP - General 05/06/23 documented as of this encounter
--- OUTSIDE RECORDS SUMMARY | 2024-04-04 20:08 | XMS_ITS | Clinical Summary ---
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 Gender Identity Not on file Sexual Orientation Not on file Last Filed Vital Signs Vital Sign Reading Time Taken Comments Blood Pressure 130/82 05/06/2023 12:20 PM STOCK CLERK SELF SERVICE STORE Pulse 103 05/06/2023 12:20 PM STOCK CLERK SELF SERVICE STORE Temperature 36.5 ??C (97.7 ??F) 05/06/2023 12:[address] Respiratory Rate 20 05/06/2023 12:20 PM STOCK CLERK SELF SERVICE STORE Oxygen Saturation 98% 05/06/2023 12:20 PM STOCK CLERK SELF SERVICE STORE Inhaled Oxygen Concentration - - Weight 138.3 kg (305 lb) 05/06/2023 12:20 PM STOCK CLERK SELF SERVICE STORE Height 180.3 cm (5' 11 ) 05/06/2023 12:20 PM STOCK CLERK SELF SERVICE STORE Body Mass Index 42.54 05/06/2023 12:20 PM STOCK CLERK SELF SERVICE STORE Plan of Treatment Health Maintenance Due Date [...] patient's age to complete this topic Insurance [place] [address] MEDICAID [place] Care Teams Ice Seller Relationship Specialty Start Date End Date Provider, None [place] PCP - General 05/06/23
--- OUTSIDE RECORDS SUMMARY | 2024-04-04 20:08 | XMS_ITS | Encounter Summary ---
Author Organization [facility] Healthcare Address [address] [place] [address] Care Team Providers Care Extension Clerk Name Role Phone Starla Parham MD Primary Care Provider Reason for Referral * Diagnostic Imaging (Routine) - Closed Specialty Diagnoses / Procedures Referred By Donavon braswell Referred To Contact Diagnoses Nausea and vomiting, unspecified vomiting type Gastroesophageal reflux disease, unspecified whether esophagitis present Procedures NM Gastric Emptying Study Rubio Martinez NP [address] [place] [address] [address] [place] [address] Phone: tel: fax: [address] [phone] Referral ID Status Reason Start Date Expiration Date Visits Re quested Visits Authorized [id number] Closed 12/03/2023 01/01/2025 5 1 Reason for Visit * Diagnostic Imaging (Routine) - Closed Specialty Diagnoses / Procedures Referred By Donavon braswell Referred To Contact Diagnoses Nausea and vomiting, unspecified vomiting type Gastroesophageal reflux disease, unspecified whether esophagitis present Procedures NM Gastric Emptying Study Rubio Matrinez NP [address] [facility] [address] [place] [address] Phone: tel: fax: [address] [phone] Referral ID Status Reason Start Date Expiration Date Visits Re quested Visits Authorized [id number] Closed 12/03/2023 01/01/2025 5 1 Encounter Details Date Type Department Care Team (Latest Contact Info) Description 01/22/2024 11:00 AM CDT - 01/22/2024 11:59 PM CDT Hospital Encounter [facility] [address] [place] [address] Nausea and vomiting, unspecified vomiting type; Gastroesophageal reflux disease, unspecified whether esophagitis present Discharge Disposition: Discharge to home or self care Social History Tobacco Use Types Packs/Day Years Used Date Smoking Tobacco: Never Smokeless Tobacco: Never Alcohol Use Standard Drinks/Week Comments Yes 0 (1 standard drink = 0.6 oz pur e alcohol) rarely [place] Utilities Answer Date Recorded In the past [...] often do you attend chur ch or rastafari services? Never 06/20/2023 Do you belong to any clubs o r organizations such as druze groups, unions, fraternal or athletic groups, or [...] on file Legal Sex Male 7:25 PM FLOWER GRADER Gender Identity Not on file Sexual Orientation [...] blood sugar diagnostic (ONETOUCH VERIO TEST STRIPS [facility]) OneTouch Verio test strips cholecalciferol (VITAMIN D-3) [...] PM T: ??01/22/2024 4:13 PM Report ID: [id number] Reading Location: ??[id number] Procedure Note Anthony Olguin MD - 01/22/2024 [...] Anthony Olguin M.D. LB: LB Report ID: [id number] Reading Location: [place] [address] Rubio Adore Juan MUD LOGGER IMG NM PROCEDURES F inal Result documented [...] 01/22/2024 documented in this encounter Care Teams Extension Clerk Relationship Specialty Start Date End Date Starla Parham MD PCP - General Family Medicine 11/13/21 03/02/24 documented as of this encounter
--- OUTSIDE RECORDS SUMMARY | 2024-04-04 20:09 | XMS_ITS | Encounter Summary ---
Author Organization [facility] Address [address] [place] [address] Care Team Providers Care Global Climate Change Researcher Name Role Phone Manish Maldonado MD Primary Care Provider Reason for Referral * Diagnostic Imaging (Routine) - Closed Specialty Diagnoses / Procedures Referred By Contac t Referred To Contact Diagnoses Pulmonary nodule/lesion, solitary Procedures CT Chest WO Contrast Manish Maldonado MD Phone: tel: fax: External Order Referral ID Status Reason Start Date Expiration Date Visits Re quested Visits Authorized [id number] Closed 10/05/2019 04/15/2021 1 1 Reason for Visit * Reason Comments New Patient Encounter Details Date Type Department Care Team ([facility] Contact Info) Description 10/05/2019 1:00 PM CDT Office Visit [facility] Pulmonology [address] [place] [address] Manish Maldonado MD [address] [facility] [address] [place] [address] Asthma (Primary Dx); Pulmonary nodule/lesion, solitary; STACIE (obstructive sleep apnea) Social History Tobacco Use Types Packs/Day Years Used Date Smoking Tobacco: Never Smokeless Tobacco: Never Alcohol Use Standard Drinks/Week Comments Yes 0 (1 standard drink = 0.6 oz pur e alcohol) rarely Sex and Gender Information Value Date Recorded Sex Assigned at Not on file Legal Sex Male 7:25 PM MEDIA RELATIONS COORDINATOR Gender Identity Not on file Sexual [...] blood sugar diagnostic (ONETOUCH VERIO TEST STRIPS [facility]) OneTouch Verio test strips ??? HYDROcodone-acetaminophen (NORCO) 5-325 mg per tablet TAKE 1 TABLET BY MOUTH EVERY 4 HOURS NEEDED FOR PAIN (PAIN SCALE 4 6) ??? insulin lispro protamin-lispro (HumaLOG 75/25) 100 unit/mL (75-25) insulin pen ??? lancets 33 gauge [facility] OneTouch Delica Lancets 33 gauge use to [...] on phone: None Gets together: None Attends jewish service: None Active member of club or [...] - IgE; Future - Pulmonary Function Test -[facility]; Full PFT in PFT Lab, Bronchial Provacation; [...] blood sugar diagnostic (ONETOUCH VERIO TEST STRIPS [facility]) OneTouch Verio test strips lancets 33 gauge [facility] OneTouch Delica Lancets 33 gauge use to [...] (75-25) insulin pen 09/30/2019 2 BD Ultra-Fine Josephine Pen Needle 32 gauge x 5/32 needle USE TO INJECT INSULIN UNDER THE SKIN TWICE DAILY 09/28/2019 2 added in this encounter Care Teams Global Climate Change Researcher Relationship Specialty Start Date End Date Manish Maldonado MD PCP - General 09/28/19 11/16/19 documented as of this encounter
--- OUTSIDE RECORDS SUMMARY | 2024-04-04 20:09 | XMS_ITS | Encounter Summary ---
Author Organization [facility] Address [address] [facility] [address] [place] [address] Care Team Providers Care Clay Artist Name Role Phone Manish Maldonado MD Primary Care Provider Reason for Visit * Reason Onset Date Comments COVID-19 Screening 11/03/2019 Prior to PFT Encounter Details Date Type Department Care Team (Late st Contact Info) Description 11/03/[address] [facility] Pulmonology [address] [facility] [address] [place] [id number] Roma Bonilla MA COVID-19 Screening (Prior to PFT) Social History Tobacco Use Types Packs/Day Years Used Date Smoking Tobacco: Never Smokeless Tobacco: Never Alcohol Use Standard Drinks/Week Comments Yes 0 (1 standard drink = 0.6 oz pur e alcohol) rarely Sex and Gender Information Value Date Recorded Sex Assigned at Not on file Legal Sex Male 7:25 PM BUSINESS PERFORMANCE MANAGER Gender Identity Not on file Sexual [...] examination documented in this encounter Care Teams Clay Artist Relationship Specialty Start Date End Date Manish Maldonado MD PCP - General 09/28/19 11/16/19 documented as of this encounter
--- OUTSIDE RECORDS SUMMARY | 2024-04-04 20:09 | XMS_ITS | Encounter Summary ---
Author Organization [facility] Healthcare Address [address] [place] [id number] Care Team Providers Care Editor Magazine Name Role Phone No, Physician Primary Care Provider [phone] Manish Maldonado MD Primary Care Provider Encounter Details Date Type Department Care Team (Late st Contact Info) Description 09/25/2019 12:34 AM CDT - 09/28/2019 3:30 PM CDT Hospital Encounter MHE ADMIT Unknown, Seven Finley, DO [address] [place] [address] Anish Solis MD [address] [place] [address] Discharge Disposition: Discharge to home or self care Social History Tobacco Use Types Packs/Day Years Used Date Smoking Tobacco: Never Assessed Sex and Gender Information Value Date Recorded Sex Assigned at Not on file 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 Also, Kidney Disease Stage (GFR) and Estimated GFR (Cockroft-Gault) will NOT be calculated if Creatinine result is <0.2. Kidney Disease Stage >90 mL/MIN [facility] Comment: NOTE; ??The GFR is an [...] on dialysis Est GFR (Cockcroft-G) 201 ml/MIN [facility] Comment: Estimated GFR(Cockroft-Gault)is used to calculate patient medication dosage Calcium 9.2 8.6 - 10.3 mg/dL [facility] Total Protein 6.4 6.4 - 8.3 g/dL [facility] Albumin 3.9 3.5 - 5.0 g/dL [facility] Globulin 2.5 2.3 - 3.5 gm/dL [facility] Albumin/Globulin Ratio 1.6 1.1 - 1.8 [facility] Total Bilirubin 0.3 0.0 - 1.2 mg/dL [facility] AST 37 0 - 40 U/L [facility] ALT 58(H) 0 - 41 U/L [facility] Alkaline Phosphatase 71 40 - 129 U/L [facility] 09/28/2019 4:34 AM CDT 09/28/2019 4:53 AM CDT Narrative Resulting Agency Comment LENORA us Des Salinas MD LAB BLOOD ORDERABLES Marylu jeffery Result [facility] [address] [phone] * (ABNORMAL) CBC with auto differential (09/28/2019 4:34 AM CDT) WBC 6.8 3.8 - 9.9 X10 3/ul [facility] RBC 4.07(L) 4.30 - 5.80 x10 6/ul [facility] Hemoglobin 11.8(L) 13.0 - 17.5 g/dL [facility] Hct 34.9(L) 38.9 - 50.3 % [facility] MCV 85.7 81.3 - 96.4 fl [facility] MCH 29.0 27.1 - 33.3 pg [facility] MCHC 33.8 32.3 - 35.7 g/dl [facility] RDW 12.1 11.1 - 14.9 % [facility] Plt Count 252 150 - 400 x10 3/ul [facility] MPV 9.9 9.1 - 12.3 fl [facility] Neut % 48.9 % [facility] Immature Gran % 2.0 % [facility] Lymph % 38.6 % [facility] AST - be[employer] Dent % 6.7 % [facility] Eos % 3.2 % [facility] AUTO BASO % 0.6 % [facility] NEUTROPHIL ABS # 3.3 1.7 - 6.5 x10 3/ul [facility] Immature Gran # 0.1 0.0 - 0.1 x10 3/ul [facility] Absolute Lymphs (auto) 2.6 0.8 - 3.3 x10 3/ul [facility] Absolute Monos (auto) 0.5 0.2 - 0.8 x10 3/ul [facility] Absolute Eos (auto) 0.2 0.0 - 0.5 x10 3/ul [facility] BASOPHIL ABS # 0.0 0.0 - 0.1 x10 3/ul [facility] Nucleat RBC Rel Count 0.0 #/100WBC [facility] NRBC abs 0.00 0.00 - 0.01 x10 3/ul [facility] Absolute Neutrophils 3,300 200 - 8,000 /ul [facility] 09/28/2019 4:34 AM CDT 09/28/2019 4:53 AM CDT Narrative Resulting Agency Comment LENORA Des Salinas MD LAB BLOOD ORDERABLES Marylu l Result Performing Organization Address City/[facility] Co de Phone Number [address] [phone] * (ABNORMAL) Magnesium (09/27/2019 11:24 AM CDT) Magnesium 1.5(L) 1.6 - 2.6 mg/dL [facility] Comment: Magnesium sulfate therapy: ??3.0-9.1 mg/dL 09/27/2019 11:2 4 AM CDT 09/27/2019 11:32 AM CDT Narrative Resulting Agency Comment LENORA Des Salinas MD LAB BLOOD ORDERABLES Marylu l Result Performing Organization Address [facility] Co de Phone Number [address] [phone] * (ABNORMAL) Basic metabolic panel (09/27/2019 11:24 AM CDT) Sodium 138 135 - 145 mmol/L [facility] Potassium 3.4 3.3 - 5.1 mmol/L [facility] Chloride 103 96 - 108 mmol/L [facility] Carbon Dioxide 24 22 - 32 mmol/L [facility] Anion Gap 11 7 - 16 [facility] Glucose 306(H) 70 - 100 mg/dL [facility] BUN 8 8 - 25 mg/dL [facility] Creatinine 0.8 0.5 - 1.3 mg/dL [facility] Comment: NOTE: Estimated GFR (Cockroft-Gault) will NOT be calculated unless patient Height and Weight were entered. Also, Kidney Disease Stage (GFR) and Estimated GFR (Cockroft-Gault) will NOT be calculated if Creatinine result is <0.2. Kidney Disease Stage >90 mL/MIN [facility] Comment: NOTE; ??The GFR is an [...] on dialysis Est GFR (Cockcroft-G) 201 ml/MIN [facility] Comment: Estimated GFR(Cockroft-Gault)is used to calculate patient medication dosage Calcium 8.8 8.6 - 10.3 mg/dL [facility] 09/27/2019 11:2 4 AM CDT 09/27/2019 11:32 AM CDT Narrative Resulting Agency Comment LENORA Des Salinas MD LAB BLOOD ORDERABLES Marylu jeffery Result Performing Organization Address City/State/[facility] Co de Phone Number [facility] [address] [phone] * (ABNORMAL) CBC with auto differential (09/27/2019 11:24 AM CDT) WBC 7.0 3.8 - 9.9 X10 3/ul [facility] RBC 3.84(L) 4.30 - 5.80 x10 6/ul [facility] Hemoglobin 11.4(L) 13.0 - 17.5 g/dL [facility] Hct 33.8(L) 38.9 - 50.3 % [facility] MCV 88.0 81.3 - 96.4 fl [facility] MCH 29.7 27.1 - 33.3 pg [facility] MCHC 33.7 32.3 - 35.7 g/dl [facility] RDW 12.2 11.1 - 14.9 % [facility] Plt Count 248 150 - 400 x10 3/ul [facility] MPV 10.0 9.1 - 12.3 fl [facility] Neut % 58.1 % [facility] Immature Gran % 1.8 % [facility] Lymph % 30.0 % [facility] E AST - [employer] Dent % 7.1 % [facility] E AST - [facility] [employer] Eos % 2.6 % [email or web address] - [facility] [employer] AUTO BASO % 0.4 % [facility] NEUTROPHIL ABS # 4.1 1.7 - 6.5 x10 3/ul [facility] Immature Gran # 0.1 0.0 - 0.1 x10 3/ul [facility] Absolute Lymphs (auto) 2.1 0.8 - 3.3 x10 3/ul [facility] Absolute Monos (auto) 0.5 0.2 - 0.8 x10 3/ul [facility] Absolute Eos (auto) 0.2 0.0 - 0.5 x10 3/ul [facility] BASOPHIL ABS # 0.0 0.0 - 0.1 x10 3/ul [facility] Nucleat RBC Rel Count 0.0 #/100WBC [facility] NRBC abs 0.00 0.00 - 0.01 x10 3/ul [facility] Absolute Neutrophils 4,100 200 - 8,000 /ul [facility] 09/27/2019 11:2 4 AM CDT 09/27/2019 11:32 AM CDT Narrative Resulting Agency Comment LENORA us Des Salinas MD LAB BLOOD ORDERABLES Marylu jeffery Result [facility] [address] [phone] * Lipase (09/26/2019 9:21 AM CDT) Lipase 48 13 - 60 U/L [facility] 09/26/2019 9:21 AM CDT 09/26/2019 9:42 AM CDT Narrative Resulting Agency Comment LENORA us Des Salinas MD LAB BLOOD ORDERABLES Marylu jeffery Result [facility] [address] [phone] * (ABNORMAL) Comprehensive metabolic panel (09/26/2019 9:21 AM CDT) Pathologist [facility] Sodium 137 135 - 145 mmol/L [facility] Potassium 3.8 3.3 - 5.1 mmol/L [facility] Chloride 101 96 - 108 mmol/L [facility] Carbon Dioxide 25 22 - 32 mmol/L [facility] Anion Gap 11 7 - 16 [facility] Glucose 363(H) 70 - 100 mg/dL [facility] BUN 8 8 - 25 mg/dL [facility] Creatinine 1.0 0.5 - 1.3 mg/dL [facility] Comment: NOTE: Estimated GFR (Cockroft-Gault) will NOT be calculated unless patient Height and Weight were entered. Also, Kidney Disease Stage (GFR) and Estimated GFR (Cockroft-Gault) will NOT be calculated if Creatinine result is <0.2. Kidney Disease Stage >90 mL/MIN [facility] Comment: NOTE; ??The GFR is an [...] on dialysis Est GFR (Cockcroft-G) 161 ml/MIN [facility] Comment: Estimated GFR(Cockroft-Gault)is used to calculate patient medication dosage Calcium 9.3 8.6 - 10.3 mg/dL [facility] Total Protein 6.5 6.4 - 8.3 g/dL [facility] Albumin 4.0 3.5 - 5.0 g/dL [facility] Globulin 2.5 2.3 - 3.5 gm/dL [facility] Albumin/Globulin Ratio 1.6 1.1 - 1.8 [facility] Total Bilirubin 0.4 0.0 - 1.2 mg/dL [facility] AST 33 0 - 40 U/L [facility] ALT 62(H) 0 - 41 U/L [facility] Alkaline Phosphatase 78 40 - 129 U/L [facility] 09/26/2019 9:21 AM CDT 09/26/2019 9:42 AM CDT Narrative Resulting Agency Comment LENORA us Des Salinas MD LAB BLOOD ORDERABLES Marylu jeffery Result Performing Organization Address City/State/[facility] Co de Phone Number [facility] [address] [phone] * (ABNORMAL) CBC with auto differential (09/26/2019 9:21 AM CDT) WBC 6.7 3.8 - 9.9 X10 3/ul [facility] RBC 3.83(L) 4.30 - 5.80 x10 6/ul [facility] Hemoglobin 11.4(L) 13.0 - 17.5 g/dL [facility] Hct 34.3(L) 38.9 - 50.3 % [facility] MCV 89.6 81.3 - 96.4 fl [facility] MCH 29.8 27.1 - 33.3 pg [facility] MCHC 33.2 32.3 - 35.7 g/dl [facility] RDW 12.7 11.1 - 14.9 % [facility] Plt Count 239 150 - 400 x10 3/ul [facility] MPV 10.4 9.1 - 12.3 fl [facility] Neut % 54.6 % [facility] Immature Gran % 1.8 % [facility] Lymph % 31.5 % [facility] [email or web address] - [employer] Dent % 9.1 % [facility] [employer] [facility], [employer] Eos % 2.4 % [facility] [place] [employer] [facility], [employer] AUTO BASO % 0.6 % [facility] NEUTROPHIL ABS # 3.7 1.7 - 6.5 x10 3/ul [facility] Immature Gran # 0.1 0.0 - 0.1 x10 3/ul [facility] Absolute Lymphs (auto) 2.1 0.8 - 3.3 x10 3/ul [facility] Absolute Monos (auto) 0.6 0.2 - 0.8 x10 3/ul [facility] Absolute Eos (auto) 0.2 0.0 - 0.5 x10 3/ul [facility] BASOPHIL ABS # 0.0 0.0 - 0.1 x10 3/ul [facility] Nucleat RBC Rel Count 0.0 #/100WBC [facility] NRBC abs 0.00 0.00 - 0.01 x10 3/ul [facility] Absolute Neutrophils 3,700 200 - 8,000 /ul [facility] 09/26/2019 9:21 AM CDT 09/26/2019 9:42 AM CDT Narrative Resulting Agency Comment LENORA us Des Salinas MD LAB BLOOD ORDERABLES Marylu jeffery Result [address] [phone] * Blood culture Blood (09/25/2019 3:07 PM CDT) CULTURE BLOOD ADULT (SET OF 2) NO GROWTH DAY 5 [facility] Blood 09/25/2019 3:07 PM CDT 09/25/2019 3:14 PM CDT Anish Solis MD LAB MICROBIOLOGY - GENERAL OR DERABLES Final Result [facility] [address] [phone] * Antibody screen (09/25/2019 9:15 AM CDT) Antibody Screen NEGATIVE [facility] 09/25/2019 9:15 AM CDT 09/25/2019 9:29 AM CDT Narrative Resulting Agency Comment LENORA Anish Solis MD LAB BLOOD BANK TEST ORDERABLE S Final Result Performing Organization Address [facility]/ZIP Co de Phone Number [address] [phone] * Type and screen (09/25/2019 9:15 AM CDT) Blood Type OP [facility] 09/25/2019 9:15 AM CDT 09/25/2019 9:29 AM CDT Narrative [facility] - 09/25/2019 10:04 AM CDT N Resulting Agency Comment LENORA Anish Solis MD LAB BLOOD BANK TEST ORDERABLE S Final Result Performing Organization Address City/[facility]/ZIP Co de Phone Number [address] [phone] * aPTT (09/25/2019 9:15 AM CDT) APTT 27 27 - 36 SECONDS [facility] 09/25/2019 9:15 AM CDT 09/25/2019 9:29 AM CDT Narrative Resulting Agency Comment LENORA Anish Solis MD LAB BLOOD ORDERABLES Final Re sult Performing Organization Address [facility] de Phone Number [address] [phone] * (ABNORMAL) Protime-INR (09/25/2019 9:15 AM CDT) Pathologist [facility] PT 12.1(L) 12.2 - 14.8 SECONDS [facility] INR 0.87 [facility] Comment: Recommended Therapeutic range for Oral Anticoagulant [...] ORDERABLES Final Re sult Performing Organization Address [facility] de Phone Number [address] [phone] * (ABNORMAL) CBC with auto differential (09/25/2019 9:15 AM CDT) Pathologist [facility] WBC 6.3 3.8 - 9.9 X10 3/ul [facility] RBC 4.17(L) 4.30 - 5.80 x10 6/ul [facility] Hemoglobin 12.5(L) 13.0 - 17.5 g/dL [facility] Hct 35.8(L) 38.9 - 50.3 % [facility] MCV 85.9 81.3 - 96.4 fl [facility] MCH 30.0 27.1 - 33.3 pg [facility] MCHC 34.9 32.3 - 35.7 g/dl [facility] RDW 12.6 11.1 - 14.9 % [facility] Plt Count 251 150 - 400 x10 3/ul [facility] MPV 10.1 9.1 - 12.3 fl [facility] Neut % 45.5 % [facility] [employer] [facility] Immature Gran % 1.6 % [facility] Lymph % 40.2 % [facility] [email or web address] - [employer] Dent % 8.3 % [facility] [employer] Eos % 3.8 % [facility] [place] [employer] [facility], [employer] AUTO BASO % 0.6 % [facility] NEUTROPHIL ABS # 2.8 1.7 - 6.5 x10 3/ul [facility] Immature Gran # 0.1 0.0 - 0.1 x10 3/ul [facility] Absolute Lymphs (auto) 2.5 0.8 - 3.3 x10 3/ul [facility] Absolute Monos (auto) 0.5 0.2 - 0.8 x10 3/ul [facility] Absolute Eos (auto) 0.2 0.0 - 0.5 x10 3/ul [facility] BASOPHIL ABS # 0.0 0.0 - 0.1 x10 3/ul [facility] Nucleat RBC Rel Count 0.0 #/100WBC [facility] NRBC abs 0.00 0.00 - 0.01 x10 3/ul [facility] Absolute Neutrophils 2,800 200 - 8,000 /ul [facility] 09/25/2019 9:15 AM CDT 09/25/2019 9:29 AM CDT Narrative Resulting Agency Comment LENORA Anish Solis MD LAB BLOOD ORDERAB[place] [address], [facility] [phone] * Hepatitis panel, acute (09/25/2019 7:23 AM CDT) HepBsAg NONREACT NONREACTIVE [facility] Comment: [employer] Centaur[employer] using TAMMY (chemiluminescent immunoassay) technology. NONREACTIVE: IgM antibodies to Hepatitis B Surface antigen not detected. REACTIVE: IgM antibodies to Hepatitis B Surface antigen detected. Reactive results will be confirmed by neutralization testing. HBsAb qn 129.36 mIU/mL [facility] Comment: [employer] CentaurXP using TAMMY (chemiluminescent immunoassay) technology. 9.99 IU/L or less.....NONREACTIVE: IgM antibodies to Hepatitis B Surface antibody are not detected. 10.00 IU/L or greater..REACTIVE: IgM antibodies to Hepatitis B Surface antibody are detected. Hep B core IgM NONREACT NONREACTIVE [facility] Comment: [employer] CentaurXP using TAMMY (chemiluminescent immunoassay) technology. NONREACTIVE: IgM antibodies to Hepatitis B Core antigen not detected. EQUIVOCAL: IgM antibodies to Hepatitis B Core antigen may or may not be present. Obtain a ??new specimen and retest. REACTIVE: IgM antibodies to Hepatitis B Core antigen detected. Hep A IgM NONREACT NONREACTIVE [facility] Comment: [employer] CentaurXP using TAMMY (chemiluminescent immunoassay) technology. NONREACTIVE: IgM antibodies to Hepatitis A not detected. This does not exclude possibility of exposure to Hepatitis A or early acute infection. EQUIVOCAL:IgM antibodies to Hepatitis A may or may not be present. Suggest recollection and retest. REACTIVE: Antibodies to Hepatitis A detected. Hep C Ab NONREACT NONREACTIVE [facility] Comment: [employer] Centaur[employer] using TAMMY [...] OR DERABLES Final Result Performing Organization Address [facility]/ZIP Co de Phone Number [address] [phone] * Blood culture Blood (09/25/2019 4:25 AM CDT) [facility] CULTURE BLOOD ADULT (SET OF 2) NO GROWTH DAY 5 [facility] Blood 09/25/2019 4:25 AM CDT 09/25/2019 5:43 AM CDT Anish Solis MD LAB MICROBIOLOGY - GENERAL OR DERABLES Final Result Performing Organization Address [facility] Co de Phone Number [address] [phone] * TSH+Free T4 (09/25/2019 4:25 AM CDT) [facility] TSH 1.750 0.27 - 4.20 uIU/mL [facility] Free T4 1.31 0.93 - 1.70 ng/dL [facility] 09/25/2019 4:25 AM CDT 09/25/2019 5:43 AM CDT Narrative Resulting Agency Comment LENORA us Anish Solis MD LAB BLOOD ORDERABLES Final Re sult Performing Organization Address City/[facility] Co de Phone Number [address] [phone] * Cholesterol, LDL, direct (09/25/2019 4:25 AM CDT) [facility] LDL Cholesterol Measurd 36 0 - 129 mg/dL [facility] Comment: National Lipid Association/NCEP Guidelines: ??Optimal ? < 100 mg/dL ??Near Optimal ?100-129 mg/dL ??Borderline high 130-159 mg/dL ??High ?>=160 mg/dL 09/25/2019 4:25 AM CDT 09/25/2019 5:43 AM CDT Narrative Resulting Agency Comment LENORA Result [facility] Anish Solis MD LAB BLOOD ORDERABLES Final Re sult Performing Organization Address [facility] de Phone Number [address] [phone] * (ABNORMAL) Hemoglobin A1c (09/25/2019 4:25 AM CDT) Hemoglobin A1c % 9.5(H) 4.0 - 5.6 % [facility] Comment: ADA 2016 GUIDELINES: ??Initial Diagnostic Criteria ? HbA1c Result: ?Interpretation: ?<5.7% ? Normal ?5.7-6.4% ?At risk for diabetes mellitus ?>=6.5% ?Consistent with diabetes mellitus ??Diabetes monitoring ? Target value (ADA Recommended) ?? <7% 09/25/2019 4:25 AM CDT 09/25/2019 5:43 AM CDT Narrative Resulting Agency Comment LENORA Result [facility] Anish Solis MD LAB BLOOD ORDERABLES Final Re sult Performing Organization Address [facility] de Phone Number [address] [phone] * (ABNORMAL) Creatine kinase (CK), total (09/25/2019 4:25 AM CDT) Creatine Kinase 545(H) 20 - 200 U/L [facility] Comment: Results Reviewed 09/25/2019 4:25 AM CDT 09/25/2019 5:43 AM CDT Narrative Resulting Agency Comment LENORA Anish Solis MD LAB BLOOD ORDERABLES Final Re sult Performing Organization Address [facility]/ZIP Co de Phone Number [facility] [address] [phone] * (ABNORMAL) Lipid panel (09/25/2019 4:25 AM CDT) Triglycerides 592(H) 0 - 149 mg/dL [facility] Comment: LDL(measured) to follow due to Triglycerides >250 mg/dL. National Lipid Association/NCEP Guidelines: ?? Normal ?< 150 mg/dL ?? Borderline high ?? 150-199 mg/dL ?? High ?200-499 mg/dL ?? Very High ? >=500 mg/dL Cholesterol 131 0 - 199 mg/dL [facility] Comment: National Lipid Association/NCEP Guidelines: Desirable ? < 200 mg/dL Borderline high: ??200-239 mg/dL High Risk: ?>=240 mg/dL HDL Cholesterol 20 mg/dL [facility] Comment: Reference Ranges: ? Males: >=40 mg/dL ? Females: >=50 mg/dL Cholesterol/HDL Ratio 6.6 [facility] Comment: Optimal ??< 3.5:1 High ? > 5:1 09/25/2019 4:25 AM CDT 09/25/2019 5:43 AM CDT Narrative Resulting Agency Comment LENORA Anish Solis MD LAB BLOOD ORDERABLES Final Re sult Performing Organization Address [facility] Co de Phone Number [facility] [address] [place] [address], [facility] [phone] * (ABNORMAL) Comprehensive metabolic panel (09/25/2019 4:25 AM CDT) Sodium 137 135 - 145 mmol/L [facility] Potassium 3.4 3.3 - 5.1 mmol/L [facility] Chloride 99 96 - 108 mmol/L [facility] Carbon Dioxide 24 22 - 32 mmol/L [facility] Anion Gap 14 7 - 16 [facility] Glucose 319(H) 70 - 100 mg/dL [facility] Comment: Results Reviewed BUN 7(L) 8 - 25 mg/dL [facility] Creatinine 0.8 0.5 - 1.3 mg/dL [facility] Comment: NOTE: Estimated GFR (Cockroft-Gault) will NOT be calculated unless patient Height and Weight were entered. Also, Kidney Disease Stage (GFR) and Estimated GFR (Cockroft-Gault) will NOT be calculated if Creatinine result is <0.2. Kidney Disease Stage >90 mL/MIN [facility] Comment: NOTE; ??The GFR is an [...] on dialysis Est GFR (Cockcroft-G) 201 ml/MIN [facility] Comment: Estimated GFR(Cockroft-Gault)is used to calculate patient medication dosage Calcium 9.2 8.6 - 10.3 mg/dL [facility] Total Protein 6.9 6.4 - 8.3 g/dL [facility] Albumin 4.1 3.5 - 5.0 g/dL [facility] Globulin 2.8 2.3 - 3.5 gm/dL [facility] Albumin/Globulin Ratio 1.5 1.1 - 1.8 [facility] Total Bilirubin 0.5 0.0 - 1.2 mg/dL [facility] AST 41(H) 0 - 40 U/L [facility] ALT 64(H) 0 - 41 U/L [facility] Alkaline Phosphatase 94 40 - 129 U/L [facility] 09/25/2019 4:2 5 AM CDT 09/25/2019 5:43 AM CDT Narrative Resulting Agency Comment LENORA Anish Solis MD LAB BLOOD ORDERABLES Edited R esult - Final Performing Organization Address City/[facility]/ZIP Co de Phone Number [address] [phone] * Troponin I (09/25/2019 4:25 AM CDT) Pathologist [facility] Troponin I <0.300 0.000 - 0.300 ng/mL [facility] Comment: Reference using NORMA Chemiluminescence ? Negative: Repeat in 4-6 hours as indicated. 09/25/2019 4:25 AM CDT 09/25/2019 5:43 AM CDT Narrative Resulting Agency Comment LENORA Anish Solis MD LAB BLOOD ORDERABLES Final Re sult Performing Organization Address City/[facility]/ZIP Co de Phone Number [address] [phone] * (ABNORMAL) CBC with auto differential (09/25/2019 4:25 AM CDT) Pathologist [facility] WBC 7.2 3.8 - 9.9 X10 3/ul [facility] RBC 4.10(L) 4.30 - 5.80 x10 6/ul [facility] Hemoglobin 12.2(L) 13.0 - 17.5 g/dL [facility] Hct 35.2(L) 38.9 - 50.3 % [facility] MCV 85.9 81.3 - 96.4 fl [facility] MCH 29.8 27.1 - 33.3 pg [facility] MCHC 34.7 32.3 - 35.7 g/dl [facility] RDW 12.4 11.1 - 14.9 % [facility] Plt Count 267 150 - 400 x10 3/ul [facility] MPV 10.5 9.1 - 12.3 fl [facility] Neut % 46.3 % [facility] [employer] [facility], [employer] & [employer] Immature Gran % 1.4 % [facility] Lymph % 39.9 % [facility] [employer] Dent % 7.8 % [facility] [employer] Eos % 3.8 % [facility] [email or web address] [facility] & [employer] AUTO BASO % 0.8 % [facility] NEUTROPHIL ABS # 3.3 1.7 - 6.5 x10 3/ul [facility] Immature Gran # 0.1 0.0 - 0.1 x10 3/ul [facility] Absolute Lymphs (auto) 2.9 0.8 - 3.3 x10 3/ul [facility] Absolute Monos (auto) 0.6 0.2 - 0.8 x10 3/ul [facility] Absolute Eos (auto) 0.3 0.0 - 0.5 x10 3/ul [facility] BASOPHIL ABS # 0.1 0.0 - 0.1 x10 3/ul [facility] Nucleat RBC Rel Count 0.0 #/100WBC [facility] NRBC abs 0.00 0.00 - 0.01 x10 3/ul [facility] Absolute Neutrophils 3,300 200 - 8,000 /ul [facility] 09/25/2019 4:25 AM CDT 09/25/2019 5:43 AM CDT Narrative Resulting Agency Comment LENORA us Anish Solis MD LAB BLOOD ORDERABLES Final Re sult [facility] [address] [phone] * Lactate (09/25/2019 4:25 AM CDT) LACTATE 1.1 mmol/L [facility] Comment: Lactate Reference Range: 0.5 - 2.2 mmol/L 09/25/2019 4:25 AM CDT 09/25/2019 5:10 AM CDT Narrative Resulting Agency Comment LENORA Anish Solis MD LAB BLOOD ORDERABLES Final Re sult [address] [phone] * ECG 12 lead (09/25/2019 12:39 AM CDT) Ventricular Rate EKG/Min 104 BPM [facility] Atrial Rate 104 BPM [facility] NE-Interval (MSEC) 144 ms [facility] QRS-Interval (MSEC) 78 ms [facility] QT-Interval (MSEC) 354 ms [facility] QTc 465 ms [facility] P [place] 45 degrees [facility] R [place] 12 degrees [facility] T [place] 25 degrees [facility] Diagnosis Sinus tachycardia Otherwise normal ECG When compared with ECG of 24-SEP-2019 21:34, No significant change was found [facility] 09/25/2019 12:3 9 AM CDT 09/25/2019 10:33 AM CDT Narrative Resulting Agency Comment INPAT Anish Solis MD ECG ORDERABLES Final Result [facility] * NM Hepatobiliary Imaging (09/25/2019 12:00 AM CDT) Anatomical Region Laterality Modality Body N/A Nuclear Medicine 09/25/2019 10:2 5 PM CDT Narrative 09/25/2019 10:31 PM CDT Patient Name: AMA BAILEY ?Ordering Dr: Oscar Adrian MD ?? D.O.B: 1985 ? Exam Date: 09/25/19 ?? 0000 ?? Age: 33 ?Sex: Male ? MR#: [id number] ?? Loc: ??[id number] ? RADIOLOGY REPORT ?? Order #[id number] ?? Nuclear Medicine ? HIDA w/Fatty Meal [...] T: ??09/25/2019 10:31 PM ? Report ID: [id number] ?? Reading Location: ??[id number] ? REPORT ELECTRONICALLY SIGNED IN OTHER VENDOR SYSTEM ?? Resulting Agency Comment I Procedure Note Nasir Lozada MD - 09/25/2019 Patient Name: AMA BAILEY Dr: Oscar Adrian MD D.O.B: 1985 Exam Date: 09/25/19 0000 Age: 33 Sex: Male MR#: [id number] Loc: [id number] RADIOLOGY REPORT Order #[id number] Nuclear Medicine HIDA w/Fatty Meal Signed EXAM [...] Nasir Lozada M.D. DL: MARIE Report ID: [id number] Reading Location: [place] [address] REPORT ELECTRONICALLY SIGNED IN OTHER VENDOR SYSTEM [...] ?? Age: 33 ?Sex: Male ? MR#: [id number] ?? Loc: ??DH145-10 ? RADIOLOGY REPORT ?? Order #[id number] ?? Ultrasound ? US Abd/Right Upper Quadrant [...] T: ??09/25/2019 11:22 AM ? Report ID: [id number] ?? Reading Location: ??[id number] ? REPORT ELECTRONICALLY SIGNED IN OTHER VENDOR SYSTEM ?? Resulting Agency Comment I Procedure Note Alessio Arango Jr., MD - 09/25/2019 Patient Name: AMA BAILEY Dr: Anish Solis MDO.B: 1985 Exam Date: 09/25/19 0000 Age: 33 Sex: Male MR#: [id number] Loc: [id number] RADIOLOGY REPORT Order #[id number] Ultrasound US Abd/Right Upper Quadrant Signed EXAM [...] Alessio Arango M.D. CH: LAINA Report ID: [id number] Reading Location: [id number] REPORT ELECTRONICALLY SIGNED IN OTHER VENDOR SYSTEM [...] ?? Age: 33 ?Sex: Male ? MR#: [id number] ?? Loc: ? RADIOLOGY REPORT ?? Order #[id number] ?? Radiology ? Chest 1 View Portable [...] T: ??09/24/2019 11:17 PM ? Report ID: [id number] ?? Reading Location: ??[id number] ? REPORT ELECTRONICALLY SIGNED IN OTHER VENDOR SYSTEM ?? Resulting Agency Comment E Procedure Note Sekou Gaines MD - 09/24/2019 Patient Name: AMA BAILEY Dr: Seven Infante DO DMaverickB: 1985 Exam Date: 09/24/192217 Age: 33 Sex: Male MR#: [id number] Loc: RADIOLOGY REPORT Order #[id number] Radiology Chest 1 View Portable Signed EXAM [...] by Sekou Gaines KT: NADEEN Report ID: [id number] Reading Location: [place] [address] REPORT ELECTRONICALLY SIGNED IN OTHER VENDOR SYSTEM Seven Infante DO IMG XR PROCEDURES Final Result * (ABNORMAL) BLOOD GAS w/LYTES & LACTATE (09/24/2019 10:17 PM CDT) Specimen Type Arterial [facility] Puncture Site RR [facility] Patient Temperature 37.0 C [facility] pH 7.396 7.350 - 7.450 [facility] pCO2 39.0 32.0 - 48.0 mmHg [facility] pO2 87.7 80.0 - 110.0 mmHg [facility] HCO3 23.5 22.0 - 26.0 mmol/L [facility] Total CO2 24.7 20.0 - 30.0 mmol/L [facility] Base Excess -0.7 -2.0 - 2.0 mmol/L [facility] Hb (BLOOD GAS) 13.6(L) 13.8 - 17.2 g/dL [facility] O2 Saturation 94.6 90.0 - 95.0 % [facility] ABG Carboxyhemoglobin 0.9 <3.0 % [facility] ABG Methemoglobin 0.9 <2.0 % [facility] ABG O2 Content 18.1 17.6 - 24.3 Vol % [facility] Na+ (BLOOD GAS) 135 135 - 145 mmol/L [facility] K+ (BLOOD GAS) 3.8 3.3 - 4.9 mmol/L [facility] Ionized Calcium 1.19 1.13 - 1.28 mmol/L [facility] GLUCOSE (BLOOD GAS) 406(H) 65 - 199 mg/dL [facility] Lactate 1.1 0.5 - 2.0 mmol/L [facility] A-a O2 Difference 14.9(H) <=10.0 [facility] a/A Ratio 85.5 >=0.8 [facility] FiO2 21.0 % [facility] BG Specimen Comment ER9 [facility] Switchman Supervisor ID AEM [facility] 09/24/2019 10:1 7 PM CDT 09/24/2019 10:19 PM CDT Narrative [facility] - 09/24/2019 10:21 PM CDT Conditions Oxygen Source Arterial Resulting Agency Comment ER us Seven Infante DO LAB BLOOD [place] [address], [facility] [phone] * Drugs of Abuse Screen, Urine without Confirmation (09/24/2019 10:08 PM CDT) [facility] Amphetamines NOT DETECTED [facility] Comment: This assay uses 500 ng/mL as a cutoff for a positive result. Barbiturates NOT DETECTED [facility] Comment: This assay uses 200 ng/mL as a cutoff for a positive result. Urine Fentanyl NOT DETECTED [facility] Comment: This assay uses 1 ng/mL as a cutoff for a positive result. Benzodiazepines NOT DETECTED [facility] Comment: This assay uses 100 ng/mL as a cutoff for a positive result. Cannabinoids NOT DETECTED [facility] Comment: This assay uses 50 ng/mL as a cutoff for a positive result. Cocaine NOT DETECTED [facility] Comment: This assay uses 150 ng/mL as a cutoff for a positive result. Opiates NOT DETECTED [facility] Comment: This assay uses 300 ng/mL as a cutoff for a positive result. Urine methadone NOT DETECTED [facility] Comment: This assay uses 300 ng/mL as a cutoff for a positive result. Urine phencyclidine plus NOT DETECTED [facility] Comment: This assay uses 25 ng/mL as a cutoff for a positive result. Oxycodone NOT DETECTED [facility] Comment: This assay uses 100 ng/mL as a cutoff for a positive result. Urine Creatinine/CAROLE 59.9 mg/dL [facility] Comment: If Creatinine is < 40 mg/dL, recollection is suggested. 09/24/2019 10:0 8 PM CDT 09/24/2019 10:27 PM CDT Narrative Resulting Agency Comment ER us Seven Infante DO LAB URINE ORDERABLES Final Res ult [address] [phone] * (ABNORMAL) Urinalysis reflex to microscopic and culture (09/24/2019 10:08 PM CDT) Ur Collection Type CLEAN CATCH [facility] Ur Culture Indicated? C S NOT INDICATED [facility] Urine Color STRAW YELLOW [facility] Urine Clarity CLEAR CLEAR [facility] Urine Glucose (UA) >=500(A) NORMAL mg/dL [facility] Urine Bilirubin NEGATIVE NEGATIVE mg/dl [facility] Urine Ketones 5(A) NEGATIVE mg/dL [facility] Ur Specific [place] 1.037(H) 1.005 - 1.025 [facility] Urine Blood 0.03(A) NEGATIVE mg/dl [facility] Urine pH 5.0 5.0 - 8.0 [facility] Urine Protein NEGATIVE NEGATIVE mg/dL [facility] Urine Urobilinogen NORMAL NORMAL mg/dL [facility] Urine Nitrite NEGATIVE NEGATIVE [facility] Ur Leukocyte Esterase NEGATIVE NEGATIVE [place]/ul [facility] Ur Microscopic Review Not Indicated [facility] 09/24/2019 10:0 8 PM CDT 09/24/2019 10:27 PM CDT Narrative [facility] - 09/24/2019 10:48 PM CDT Indication(s) for ordering ?? Delirium/malaise/lethargy [facility] Resulting Agency Comment ER Seven Infante DO LAB MICROBIOLOGY - GENERAL ORD ERABLES Final Result [address] [phone] * CT Head WO Contrast (09/24/2019 9:59 PM CDT) Anatomical Region Laterality Modality Head and Neck N/A Computed Tomogra phy 09/24/2019 11:2 9 PM CDT Narrative 09/24/2019 11:31 PM CDT Patient Name: AMA BAILEY ?Ordering Seven Kurtz DO ?? D.O.B: 1985 ? Exam Date: 06/25/20 ?? 2159 ?? Age: 33 ?Sex: Male ? MR#: [id number] ?? Loc: ? RADIOLOGY REPORT ?? Order #[id number] ?? CT Scan ? CT Head WO [...] T: ??09/24/2019 11:31 PM ? Report ID: [id number] ?? Reading Location: ??[id number] ? REPORT ELECTRONICALLY SIGNED IN OTHER VENDOR SYSTEM ?? Resulting Agency Comment E Procedure Note Brianna Mckeon MD - 09/24/2019 Patient Name: AMA BAILEY Dr: Seven Infante DO, D.O.B: 1985 Exam Date: 09/24/19 0763 Age: 33 Sex: Male MR#: [id number] Loc: RADIOLOGY REPORT Order #[id number] CT Scan CT Head WO IV Contrast [...] Brianna Mckeon M.D. SS: MIMI Report ID: [id number] Reading Location: [place] [address] REPORT ELECTRONICALLY SIGNED IN OTHER VENDOR SYSTEM Seven Infante DO [facility] PROCEDURES Final Result * Procalcitonin (09/24/2019 9:35 PM CDT) Procalcitonin 0.09 0.0 - 0.24 ng/mL [facility] Comment: Guidelines for use with Community [...] ORDERABLES Final Res ult Performing Organization Address [facility]/ZIP Co de Phone Number [address] [phone] * CRP (acute phase) (09/24/2019 9:35 PM CDT) C-Reactive Protein 7.1 0.0 - 10.0 mg/L [facility] 09/24/2019 9:35 PM CDT 09/24/2019 9:42 PM CDT Narrative Resulting Agency Comment LENORA Stephen STOKES LAB BLOOD ORDERABLES Final Res ult Performing Organization Address [facility] Co de Phone Number [address] [phone] * Troponin I (09/24/2019 9:35 PM CDT) Troponin I <0.300 0.000 - 0.300 ng/mL [facility] Comment: Reference using NORMA Chemiluminescence ? Negative: Repeat in 4-6 hours as indicated. 09/24/2019 9:35 PM CDT 09/24/2019 9:42 PM CDT Narrative Resulting Agency Comment LENORA Stephen STOKES LAB BLOOD ORDERABLES Final Res ult [address] [phone] * (ABNORMAL) Creatine kinase (CK), total (09/24/2019 9:35 PM CDT) Creatine Kinase 680(H) 20 - 200 U/L [facility] 09/24/2019 9:35 PM CDT 09/24/2019 9:42 PM CDT Narrative Resulting Agency Comment LENORA Stephen STOKES LAB BLOOD ORDERABLES Final Res ult Performing Organization Address [facility] Co de Phone Number [address] [phone] * (ABNORMAL) Beta-hydroxybutyrate (09/24/2019 9:35 PM CDT) B-Hydroxybutyr ate 0.7(H) 0.0 - 0.4 mmol/L [facility] B-Hydroxybutyr ate 0.7(H) 0.0 - 0.4 mmol/L [facility] 09/24/2019 9:35 PM CDT 09/24/2019 9:42 PM CDT Narrative Resulting Agency Comment LENORA Stephen STOKES LAB BLOOD ORDERABLES Final Res ult Performing Organization Address City/[facility]/ZIP Co de Phone Number [facility] [address] [place] [address], [facility] [phone] * Phosphorus (09/24/2019 9:35 PM CDT) Phosphorus 4.2 2.3 - 4.5 mg/dL [facility] Phosphorus 4.2 2.3 - 4.5 mg/dL [facility] 09/24/2019 9:35 PM CDT 09/24/2019 9:42 PM CDT Narrative Resulting Agency Comment LENORA Stephen STOKES LAB BLOOD ORDERABLES Final Res ult Performing Organization Address [facility]/ZIP Co de Phone Number [address] [phone] * Magnesium (09/24/2019 9:35 PM CDT) Magnesium 1.8 1.6 - 2.6 mg/dL [facility] Comment: Magnesium sulfate therapy: ??3.0-9.1 mg/dL Magnesium 1.8 1.6 - 2.6 mg/dL [facility] Comment: Magnesium sulfate therapy: ??3.0-9.1 mg/dL 09/24/2019 9:35 PM CDT 09/24/2019 9:42 PM CDT Narrative Resulting Agency Comment LENORA us Stephen STOKES LAB BLOOD ORDERABLES Final Res ult Performing Organization Address [facility]/ZIP Co de Phone Number [address] [phone] * Lipase (09/24/2019 9:35 PM CDT) Lipase 53 13 - 60 U/L [facility] 09/24/2019 9:35 PM CDT 09/24/2019 9:42 PM CDT Narrative Resulting Agency Comment LENORA Stephen STOKES LAB BLOOD ORDERABLES Final Res ult Performing Organization Address [facility]/ZIP Co de Phone Number [address] [phone] * (ABNORMAL) Comprehensive metabolic panel (09/24/2019 9:35 PM CDT) Sodium 132(L) 135 - 145 mmol/L [facility] Potassium 4.0 3.3 - 5.1 mmol/L [facility] Chloride 92(L) 96 - 108 mmol/L [facility] Carbon Dioxide 24 22 - 32 mmol/L [facility] Anion Gap 16 7 - 16 [facility] Glucose 490(HH) 70 - 100 mg/dL [facility] Comment: CRITICAL VALUE CALLED and REPEATED. at:2231 09/24/19 by:Anurag Marley to:DONAVAN BUN 8 8 - 25 mg/dL [facility] Creatinine 1.0 0.5 - 1.3 mg/dL [facility] Comment: NOTE: Estimated GFR (Cockroft-Gault) will NOT be calculated unless patient Height and Weight were entered. Also, Kidney Disease Stage (GFR) and Estimated GFR (Cockroft-Gault) will NOT be calculated if Creatinine result is <0.2. Kidney Disease Stage >90 mL/MIN [facility] Comment: NOTE; ??The GFR is an [...] on dialysis Est GFR (Cockcroft-G) 160 ml/MIN [facility] Comment: Estimated GFR(Cockroft-Gault)is used to calculate patient medication dosage Calcium 9.8 8.6 - 10.3 mg/dL [facility] Total Protein 7.9 6.4 - 8.3 g/dL [facility] Albumin 4.7 3.5 - 5.0 g/dL [facility] Globulin 3.2 2.3 - 3.5 gm/dL [facility] Albumin/Globulin Ratio 1.5 1.1 - 1.8 [facility] Total Bilirubin 0.4 0.0 - 1.2 mg/dL [facility] AST 59(H) 0 - 40 U/L [facility] ALT 83(H) 0 - 41 U/L [facility] Alkaline Phosphatase 125 40 - 129 U/L [facility] 09/24/2019 9:35 PM CDT 09/24/2019 9:42 PM CDT Narrative Resulting Agency Comment LENORA us Stephen STOKES LAB BLOOD ORDERABLES Edited Re sult - Final [facility] [address] [phone] * CBC with auto differential (09/24/2019 9:35 PM CDT) WBC 8.4 3.8 - 9.9 X10 3/ul [facility] RBC 4.70 4.30 - 5.80 x10 6/ul [facility] Hemoglobin 14.1 13.0 - 17.5 g/dL [facility] Hct 40.0 38.9 - 50.3 % [facility] MCV 85.1 81.3 - 96.4 fl [facility] MCH 30.0 27.1 - 33.3 pg [facility] MCHC 35.3 32.3 - 35.7 g/dl [facility] RDW 12.3 11.1 - 14.9 % [facility] Plt Count 285 150 - 400 x10 3/ul [facility] MPV 10.4 9.1 - 12.3 fl [facility] Neut % 55.0 % [facility] Immature Gran % 1.2 % [facility] Lymph % 33.0 % [facility] Dent % 7.2 % [facility] Eos % 2.9 % [facility] AUTO BASO % 0.7 % [facility] NEUTROPHIL ABS # 4.6 1.7 - 6.5 x10 3/ul [facility] Immature Gran # 0.1 0.0 - 0.1 x10 3/ul [facility] Absolute Lymphs (auto) 2.8 0.8 - 3.3 x10 3/ul [facility] Absolute Monos (auto) 0.6 0.2 - 0.8 x10 3/ul [facility] Absolute Eos (auto) 0.2 0.0 - 0.5 x10 3/ul [facility] BASOPHIL ABS # 0.1 0.0 - 0.1 x10 3/ul [facility] Nucleat RBC Rel Count 0.0 #/100WBC [facility] NRBC abs 0.00 0.00 - 0.01 x10 3/ul [facility] Absolute Neutrophils 4,600 200 - 8,000 /ul [facility] 09/24/2019 9:35 PM CDT 09/24/2019 9:42 PM CDT Narrative Resulting Agency Comment ER Stephen STOKES LAB BLOOD ORDERABLES Final Res ult [facility] [address] [place] [address], [facility] [phone] * ECG 12 lead (09/24/2019 9:34 PM CDT) Ventricular Rate EKG/Min 113 BPM [facility] Atrial Rate 113 BPM [facility] NE-Interval (MSEC) 140 ms [facility] QRS-Interval (MSEC) 78 ms [facility] QT-Interval (MSEC) 344 ms [facility] QTc 471 ms [facility] P [place] 35 degrees [facility] R [place] 12 degrees [facility] T [place] 31 degrees [facility] Diagnosis Sinus tachycardia Otherwise normal ECG When compared with ECG of 26-NOV-2010 17:32, Premature ventricular complexes are no longer Present [facility] 09/24/2019 9:34 PM CDT 09/25/2019 10:32 AM CDT Narrative Resulting Agency Comment EVARISTO us Stephen STOKES ECG ORDERABLES Final Result Performing Organization Address [facility]/State/ZIP Co de Phone Number [facility] * CT Abdomen Pelvis W Contrast (09/24/2019 8:56 PM CDT) Anatomical Region Laterality Modality Body N/A Computed Tomogra phy 09/24/2019 11:2 2 PM CDT Narrative 09/24/2019 11:28 PM CDT Patient Name: AMA BAILEY ?Ordering Dr: Stephen Mc-Antonino ?? D.O.B: 1985 ? Exam Date: 09/24/19 ?? 2055 ?? Age: 33 ?Sex: Male ? MR#: [id number] ?? Loc: ? RADIOLOGY REPORT ?? Order #[id number] ?? CT Scan ? CT Abd/Pelvis W [...] T: ??09/24/2019 11:28 PM ? Report ID: [id number] ?? Reading Location: ??[id number] ? REPORT ELECTRONICALLY SIGNED IN OTHER VENDOR SYSTEM ?? Resulting Agency Comment E Procedure Note Brianna Mckeon MD - 09/24/2019 Patient Name: AMA BAILEY Dr: Stephen Mc PA-C, D.O.B: 1985 Exam Date: 09/24/192055 Age: 33 Sex: Male MR#: [id number] Loc: RADIOLOGY REPORT Order #[id number] CT Scan CT Abd/Pelvis W IV Contrast [...] Brianna Mckeon M.D. SS: SS Report ID: [id number] Reading Location: [place] [address] REPORT ELECTRONICALLY SIGNED IN OTHER VENDOR SYSTEM Stephen STOKSE IMG CT PROCEDURES Final Result documented in this encounter Visit Diagnoses Not on filedocumented in this encounter Care Teams Editor Magazine Relationship Specialty Start Date End Date No, Physician PCP - General 08/31/19 09/27/19 Manish Maldonado MD PCP - General 09/28/19 11/16/19 documented as of this encounter
--- OUTSIDE RECORDS SUMMARY | 2024-04-04 20:09 | XMS_ITS | Encounter Summary ---
Author Organization [facility] Healthcare Address [address] [place] [address] Care Team Providers Care Rock Crushing Machine Operator Name Role Phone Starla Parham MD Primary Care Provider [phone] Reason for Visit * Reason Onset Date Comments MELANY/NS for Home sleep study 01/11/2022 Encounter Details Date Type Department Care Team (Late st Contact Info) Description 01/11/2022 Telephone [facility] [address] [place], [place] [id number] Shubham Reeder MD [address] [facility] [address] [address] [place]/NS for Home sleep study Social History Tobacco Use Types Packs/Day Years Used Date Smoking Tobacco: Never Smokeless Tobacco: Never Alcohol Use Standard Drinks/Week Comments Yes 0 (1 standard drink = 0.6 oz pur e alcohol) rarely Sex and Gender Information Value Date Recorded Sex Assigned at Not on file 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
--- OUTSIDE RECORDS SUMMARY | 2024-04-04 20:09 | XMS_ITS | Encounter Summary ---
Author Organization [facility] Healthcare Address [address] [place] [address] Care Team Providers Care Manager Sql Name Role Phone Manish Maldonado MD Primary Care Provider Encounter Details Date Type Department Care Team (Late st Contact Info) Description 11/17/2019 1:25 PM CDT - 11/17/2019 1:47 PM CDT Hospital Encounter [facility] INTERIM Anurag Olivares MD [address] [facility] [address] [address] Discharge Disposition: Discharge to home or self care Social History Tobacco Use Types Packs/Day Years Used Date Smoking Tobacco: Never Smokeless Tobacco: Never Alcohol Use Standard Drinks/Week Comments Yes 0 (1 standard drink = 0.6 oz pur e alcohol) rarely Sex and Gender Information Value Date Recorded Sex Assigned at Not on file 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 Gender Identity Not on file Sexual Orientation Not on file documented as of this encounter Medications at Time of Discharge albuterol HFA (PROVENTIL HFA,VENTOLIN HFA,PROAIR HFA) 90 mcg/actuation inhaler TAKE 2 PUFFS BY MOUTH EVERY 6 HOURS NEEDED FOR WHEEZE OR SHORTNESS OF BREATH 06/30/2019 blood sugar diagnostic (ONETOUCH VERIO TEST STRIPS [facility]) OneTouch Verio test strips BD Ultra-Fine Josephine [...] on filedocumented in this encounter Care Teams Manager Sql Relationship Specialty Start Date End Date Manish Maldonado MD PCP - General 11/17/19 11/12/21 documented as of this encounter
--- OUTSIDE RECORDS SUMMARY | 2024-04-04 20:09 | XMS_ITS | Encounter Summary ---
Author Organization [facility] Healthcare Address [address] [place] [id number] Care Team Providers Care Customer Sales Service Manager Name Role Phone Starla Parham MD Primary Care Provider [phone] Reason for Visit * Reason Comments Abdominal Pain Encounter Details Date Type Department Care Team (Late st Contact Info) Description 01/08/2023 4:33 PM CDT - 01/08/2023 7:00 PM CDT Emergency [facility] Emergency Department [address] [place] [address] Eder Epstein MD [address] [place] [address] Abdominal pain (Primary Dx) Discharge Disposition: Discharge [...] on file Legal Sex Male 7:25 PM [employer] Gender Identity Not on file Sexual [...] 1 week Follow-up with GI specialist at [facility] as scheduled Encouraged taking small meals with increasing frequency Limit fat intake spicy intake types of food * Attachments The following attachments cannot be sent through Care Everywhere. * Irritable Bowel Syndrome ([facility](R) Instructions(ER/ED)) (Cymro) documented in this encounter Medications at [...] Course as of 01/08/23 1846 Time: 01/08 8168 Value: Lipase, Serum: 38 Comment: Unlikely pancreatitis [...] electrolytes By: Zahraa Padron MD Time: 01/08 793 Value: Urinalysis reflex to microscopic and culture [...] UA By: Zahraa Padron MD Time: 01/08 7375 Value: CT Abdomen Pelvis W Contrast Comment: (Reviewed) By: Zahraa Padron MD Time: 01/09 1840 Value: CT Abdomen Pelvis W Contrast Comment: IMPRESSION: No acute finding. By: Zahraa Padron MD Time: 01/08 1843 Comment: Patient agreeable to being discharged with a follow-up with a GI specialist that he is already seeing at [facility]. Return precautions were given By: Zahara Padron MD Abdominal pain Zahraa Padron MD [...] of Problems Differential Diagnosis: [IBS, gastroenteritis, gallbladder] [facility] Data Discussed with: [Patient] Treatment and Disposition [...] PM T: ??01/08/2023 6:36 PM Report ID: [id number] Reading Location: [id number] Procedure Note Yobany Rayo MD - 01/08/2023 [...] Rayo M.D., D.O. MW: TACHO Report ID: [id number] Reading Location: [id number] us Zahraa Padron MD IM CT PROCEDURES [...] for uric acid stone formation. Source: [facility] Current Interpretive Data was last revised on 2017 Protein, ur ql Negative Negative [facility] ([facility]) Glucose, ur ql Negative Negative [facility] ([facility]) Ketones, ur Negative Negative [facility] ([facility]) Bilirubin, ur Negative Negative [facility] ([facility]) Blood, ur Negative Negative [facility] ([facility]) Urobilinogen, ur <2.0 <2.0 mg/dL [facility] ([place]) Nitrite, ur Negative Negative [facility] ([facility]) Leukocyte esterase, ur Negative Negative [facility] ([facility]) UA reflex comment Reflex conditions for microscopic UA and culture not met. [facility] ([facility]) Urine 01/08/2023 5:32 PM CDT 01/08/2023 5:44 PM CDT us Eder Epstein MD LAB MICROBIOLOGY - GENERAL O RDERABLES [facility] ([facility]) [address] [facility] Department [place] [address] * eGFR (01/08/2023 4:49 PM CDT) eGFR [...] MD LAB BLOOD ORDERABLES Final R esult [facility] ([facility]) [address] [facility] Department of Laboratories [place], [place] [id number] * Differential, auto (01/08/2023 4:49 PM CDT) [...] Final R esult [facility] ([place]) [address] [facility] [place] [address] * Comprehensive metabolic panel (01/08/2023 4:49 PM [...] MD LAB BLOOD ORDERABLES Final R esult [facility] ([facility]) [address] [facility] Department of Laboratories [place], [place] [id number] * Lipase (01/08/2023 4:49 PM CDT) Lipase 38 10 - 99 Units/L Blood 01/08/2023 4:49 PM CDT 01/08/2023 4:51 PM CDT Eder Epstein MD LAB BLOOD ORDERABLES Final R esult [facility] ([place]) [address] [facility] [place] [address] * CBC with auto differential (01/08/2023 4:49 [...] Final R esult [facility] ([place]) [address] [facility] [place] [address] documented in this encounter Visit Diagnoses Diagnosis [...] RT) documented in this encounter Care Teams Customer Sales Service Manager Relationship Specialty Start Date End Date Starla Parham MD PCP - General Family Medicine 11/13/21 03/02/24 documented as of this encounter
--- OUTSIDE RECORDS SUMMARY | 2024-04-04 20:09 | XMS_ITS | Encounter Summary ---
Author Organization [facility] Healthcare Address [address] [place] [address] Care Team Providers Care Wrinkle Chaser Name Role Phone Starla Parham MD Primary Care Provider [phone] Reason for Visit * Reason Comments Nausea Diarrhea * Auth/Cert (Routine) Specialty Diagnoses / Procedures Referred By Contac t Referred To Contact Diagnoses Gastroenteritis Tachycardia Procedures na Referral ID Status Reason Start Date Expiration Date Visits Re quested Visits Authorized [id number] 1 1 Encounter Details Date Type Department Care Team (Latest Contact Info) Description 06/19/2023 1:38 PM CDT - 06/21/2023 1:00 PM CDT Hospital Encounter [facility] [address] [place] [address] Markel Hines MD [address] [facility] [address] [place] [address] [place] [address] Deedee Winston MD [address] [facility] [address] [place] [id number] Justice Robb DO [address] [facility] [place] [address] Gastroenteritis (Primary Dx); Tachycardia Discharge Disposition: Discharge to home or self care Social History Tobacco Use Types Packs/Day Years Used Date Smoking Tobacco: Never Smokeless Tobacco: Never Alcohol Use Standard Drinks/Week Comments Yes 0 (1 standard drink = 0.6 oz pur e alcohol) rarely [facility] Utilities Answer Date Recorded In the past 12 months has [employer], gas, oil, or water company threatened to [...] often do you attend chur ch or denominational services? Never 06/20/2023 Do you belong to any clubs o r organizations such as taoism groups, unions, fraternal or athletic groups, or [...] on file Legal Sex Male 7:25 PM [employer] Gender Identity Not on file Sexual Orientation [...] Patient Age - 37 yrs Patient - [id number] [facility] - [id number] Document Creation Date: 06/21/2023 Admitting Provider, : Justice Robb DO Discharge Provider, MD: Justice Robb DO Primary Care Physician at Discharge: Starla Parham MD [phone] Admission Date: 06/19/2023 Discharge Date/time: 06/21/2023 Admission Location: [facility] LOS - LOS: 1 day DETAILS OF [...] Your Medications These medications were sent to [place] [address] [place] [address] [address] cefdinir 300 mg capsule loperamide 2 mg [...] (TTE) Complete W Doppler/CF Result Date: 06/20/[address] [place] [address] Echocardiogram Report ADDENDUM Patient Name: AMA REHMAN W : 1985 Study Date: 06/20/2023 9:55:13 AM Gender: M Tech: Location: [id number] Ref Provider: DEEDEE WINSTON Height(Cm): 180 BSA: [...] Rate: 138 bpm RR Interval: 432 msec TN Interval: 134 msec QRS Duration: 88 msec QT Interval: 301 msec QTC Interval: 382 msec P-R-T [place]: 12 - 40 - 33 degrees IMPRESSION: [...] finding. LUMBAR SPINE SEGMENTATION: There are 6 khp-vtj-kossgjqilfxvgaxdq vertebral bodies. The last lumbarized vertebral body [...] at the lumbosacral jessenia ction with 6 vhj-azn-saroyvt lumbarized vertebral bodies. The last lumbarized vertebral body is designated L6. THIS IS AN ELECTRONICALLY VERIFIED FINAL REPORT 06/20/2023 1:39 AM - Electronically signed by Nanette Guaman M.D. SN: Report ID: [id number] Reading Location: [id number] CT Thoracic Spine WO Contrast Result Date: [...] finding. LUMBAR SPINE SEGMENTATION: There are 6 ceb-vgm-hulxqsemrajcckcig vertebral bodies. The last lumbarized vertebral body [...] at the lumbosacral jessenia ction with 6 akq-qih-ysynjac lumbarized vertebral bodies. The last lumbarized vertebral body is designated L6. THIS IS AN ELECTRONICALLY VERIFIED FINAL REPORT 06/20/2023 1:39 AM - Electronically signed by Nanette Guaman M.D. SN: SN Report ID: [id number] Reading Location: [id number] CT Facial Bones WO Contrast Result Date: [...] KH: JOHNY 1 1:15 PM Report ID: [id number] Reading Location: [id number] CT Head WO Contrast Result Date: 06/19/2023 [...] Sekou Kan M.D. KH: KH Report ID: [id number] Reading Location: [id number] X-ray chest 1 view (Portable) Result Date: [...] Sekou Gaines M.D. KT: NADEEN Report ID: [id number] Reading Location: [id number] CT Abdomen Pelvis W Contrast Result Date: [...] KH: KHD: 06/19/2023 6:22 PM Report ID: [id number] Reading Location: [place] [address] Recent Labs: Recent Labs Lab Units 06/20/23 [...] mg/dL -- -- 0.82 -- -- 0.80 KAD-[id number] mL/min/1.73 m2 -- -- 117 -- -- [...] through Care Everywhere. * Cefdinir (By mouth) (Iraqi) * Loperamide (By mouth) (Iraqi) * Metronidazole (By mouth) (Iraqi) * Ondansetron (By mouth, Into the mouth) (Iraqi) documented in this encounter Medications at Time [...] this encounter Progress Notes * Kay Sanon, [facility] - 06/20/2023 1:19 PM CDT Pharmacokinetic Consult - Vancomycin Dosing-Completed Vancomycin discontinued 06/20/[address] Robb. Vancomycin levels have been discontinued. Pharmacy monitoring is complete. Thank you, Kay Sanon [facility] [phone] * Justice Robb, DO - 06/20/2023 1:16 PM CDT [facility] Hospitalist Service Progress Note Patient Name: Ama Rehman Patient : 1985 Age/Sex: 37 y.o. male Room/Bed: [id number] Admission Date/Time: 06/19/2023 1:38 PM Date: 06/20/2023 [...] Rate: 138 bpm RR Interval: 432 msec TN Interval: 134 msec QRS Duration: 88 msec QT Interval: 301 msec QTC Interval: 382 msec P-R-T [place]: 12 - 40 - 33 degrees IMPRESSION: [...] finding. LUMBAR SPINE SEGMENTATION: There are 6 mos-tpk-zhnxgcm lumbarized vertebral bodies. The last lumbarized vertebral [...] anatomy at the lumbosacral junction with 6 ufv-kgj-dzuknpx lumbarized vertebral bodies. The last lumbarized vertebral body is designated L6. THIS IS AN ELECTRONICALLY VERIFIED FINAL REPORT 06/20/2023 1:39 AM - Electronically signed by Nanette Guaman M.D. SN: Report ID: [id number] Reading Location: [id number] CT Thoracic Spine WO Contrast Result Date: [...] finding. LUMBAR SPINE SEGMENTATION: There are 6 xuc-izt-qwchucu lumbarized vertebral bodies. The last lumbarized vertebral [...] anatomy at the lumbosacral junction with 6 joc-lsf-ukbygqk lumbarized vertebral bodies. The last lumbarized vertebral body is designated L6. THIS IS AN ELECTRONICALLY VERIFIED FINAL REPORT 06/20/2023 1:39 AM - Electronically signed by Nanette Guaman M.D. SN: Report ID: [id number] Reading Location: [id number] CT Facial Bones WO Contrast Result Date: [...] Sekou Kan M.D. KH: JOHNY Report ID: [id number] Reading Location: [id number] CT Head WO Contrast Result Date: 06/19/2023 [...] 06/19/2023 11:11 PM - Electronically signed by Sekuo Kan M.D. KH: KH Report ID: [id number] Reading Location: [id number] X-ray chest 1 view (Portable) Result Date: [...] Sekou Gaines M.D. KT: NADEEN Report ID: [id number] Reading Location: [id number] CT Abdomen Pelvis W Contrast Result Date: [...] Sekou Kan M.D. KH: JOHNY Report ID: [id number] Reading Location: [place] [address] Microbiology: No results found for requested labs within last 30 days. ASSESSMENT AND PLAN: Principal Problem: Gastroenteritis Active Problems: Type 2 diabetes mellitus without complication (CMS/HCC) ([facility]) Irritable bowel syndrome Essential hypertension STACIE (obstructive sleep apnea) Sepsis ([facility]) Sinus tachycardia Resolved Problems: No resolved [...] Mykel Robb DO Internal Medicine - Hospitalist [facility] - Adult Hospitalist Service 06/20/2023 1:16 PM * Crow Baker [facility] - 06/19/2023 8:57 PM CDT Pharmacokinetic Consult - Vancomycin Ama Rehman is a 37 y.o. male patient admitted to [id number]. Pharmacy service has been consulted for vancomycin [...] adjust doses accordingly. Thank you, Crow Baker [facility] [phone] documented in this encounter H&P Notes * [...] blood sugar diagnostic (ONETOUCH VERIO TEST STRIPS [facility]) OneTouch Verio test strips Allergies Allergen Reactions [...] 4 mg 4 mg oral Q6H PRN Markel Hines MD Or ondansetron (ZOFRAN) injection 4 [...] 35 28 - 38 sec Thyroid Function Mcpherson Collection Time: 06/19/23 9:51 PM Result Value [...] signed by Sekou MCCLAIN: JOHNY Report ID: [id number] Reading Location: [id number] CT Head WO Contrast Result Date: 06/19/2023 [...] signed by Sekou MCCLAIN: JOHNY Report ID: [id number] Reading Location: [id number] X-ray chest 1 view (Portable) Result Date: [...] Sekou Gaines M.D. KT: KT Report ID: [id number] Reading Location: [id number] CT Abdomen Pelvis W Contrast Result Date: [...] Sekou Kan M.D. KH: JOHNY Report ID: [id number] Reading Location: [id number] A/P Sepsis Acute gastroenteritis Hyponatremia Type 2 [...] any separately reportable services. Voice recognition software esolidar Direct was used dictate and transcribe this document. Resolution Agent variances may occur. Despite proofreading, typographical errors [...] - Electronically signed by Sekou Kan M.D. [facility] Medical Decision Making Amount and/or Complexity of [...] transport arranged?: No (06/20/231046) Health Insurance Coverage: Adiana blue shield Prescription Coverage: yes Pharmacy: [facility]/pharmacy #[id number] - [place], [place] - [address] [facility] [address] [place] [address] [facility]/pharmacy #[id number] - Closed - [place], [place] - [address] [address] Primary Care Provider: Starla Parham MD Prior [...] a week How often do you attend taoism or denominational services?: Never Do you belong to any clubs or organizations such as taoism groups, unions, fraternal or athletic groups, or [...] replacement therapy as ordered 06/20/2023 0746 by aKtie Silva RN Outcome: Ongoing Flowsheets (Taken 06/20/2023399) [...] surrounding pain Provide emotional support 06/20/2023745 by aKtie Silva RN Outcome: Ongoing Flowsheets (Taken 06/20/2023399) [...] heart rate, improve GI symptoms and function 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 Pressure 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 Patient Centered Goal for Treatment: return to [...] * POCT glucose (06/21/2023 11:51 AM CDT) [facility] Signature Glucose, POC 88 71 - 98 mg/dL Blood 06/21/2023 11:5 1 AM CDT 06/21/2023 11:51 AM CDT Justice Leiva Clarisse DO LAB POCT ORDERABLES - DEVICE Final Result [facility] [place] 1 [facility] Department of Laboratories [place], [place] [id number] * POCT glucose (06/21/2023 7:30 AM CDT) Glucose, POC 83 71 - 98 mg/dL Blood 06/21/2023 7:30 AM CDT 06/21/2023 7:30 AM CDT Justice Robb DO LAB POCT ORDERABLES - DEVICE Final Result Performing Organization Address City/[facility]/ZIP Co de Phone Number JUSTYNA [facility] ([place]) 1 [facility] [place] [place] [address] * POCT glucose (06/21/2023 2:17 AM CDT) Glucose, POC 77 71 - 98 mg/dL Blood 06/21/2023 2:17 AM CDT 06/21/2023 2:17 AM CDT Justice Leiva Clarisse DO LAB POCT ORDERABLES - DEVICE Final Result Performing Organization Address [facility] Co de Phone Number JUSTYNA [facility] ([place]) 1 [facility] [place] [address] * POCT glucose (06/20/2023 9:22 PM CDT) Glucose, POC 96 71 - 98 mg/dL Blood 06/20/2023 9:22 PM CDT 06/20/2023 9:22 PM CDT Justice Robb DO LAB POCT ORDERABLES - DEVICE Final Result Performing Organization Address [facility] Co de Phone Number JUSTYNA [facility] ([place]) 1 [facility] [place] [address] * POCT glucose (06/20/2023 4:44 PM CDT) Glucose, POC 91 71 - 98 mg/dL Blood 06/20/2023 4:44 PM CDT 06/20/2023 4:44 PM CDT Justice Robb DO LAB POCT ORDERABLES - DEVICE Final Result Performing Organization Address [facility] Co de Phone Number JUSTYNA [facility] ([place]) [address] [place] [address] * POCT glucose (06/20/2023 11:41 AM CDT) Glucose, POC 84 71 - 98 mg/dL Blood 06/20/2023 11:4 1 AM CDT 06/20/2023 11:41 AM CDT Justice Robb DO LAB POCT ORDERABLES - DEVICE Final Result Performing Organization Address [facility] de Phone Number JUST[place]NA [place]) [address] [place] [address] * TRANSTHORACIC ECHO (TTE) COMPLETE W DOPPLER/CF W CONTRAST (06/20/2023 10:30 AM CDT) Anatomical Region Laterality Modality Ultrasound 06/20/2023 9:55 AM CDT Narrative 06/20/2023 2:31 PM CDT [address] [address] Echocardiogram Report ADDENDUM Patient Name: AMA REHMAN W : 1985 Study Date: 06/20/2023 9:55:13 AM Gender: M Tech: Location: [id number] Ref Provider: DEEDEE WINSTON ?Height(Cm): 180 BSA: [...] Procedure Note Mariely Lugo MD - 06/20/[address] [address] Echocardiogram Report ADDENDUM Patient Name: AMA REHMAN W : 1985 Study Date: 06/20/2023 9:55:13 AM Gender: M Tech: Location: [place] [address] Ref Provider: DEEDEE WINSTON Height(Cm): 180 BSA: [...] ORDERABLES - DEVICE Final Result JUSTYNA DAHL ([place]) 1 [facility] [place] [address] * Troponin T high-sensitivity 6-hour (06/20/2023 4:45 AM CDT) Trop T hs 11 <=22 ng/L Comment: Interpretive Data For further hscTnT resources including the diagnostic algorithm and an aid in interpretation, copy and paste this link: https://nrl.testcatalog.org/show/hsTrop Current Interpretive Data last revised 2020. Trop T hs delta -1 ng/L [facility] ([place]) Trop T hs interp Insignificant [facility] ([place]) Blood 06/20/2023 4:45 AM CDT 06/20/2023 5:57 AM CDT Deedee Winston MD LAB BLOOD ORDERABLES Fin al Result [facility] ([place]) 1 [facility] Department [place] [address] * (ABNORMAL) Differential, auto (06/20/2023 2:36 AM CDT) Neutrophil abs 5.9 1.5 - 6.5 K/cumm Imm gran abs 0.1 0.0 - 0.1 K/cumm [facility] ([place]) Lymphocyte abs 1.3 0.8 - 3.3 K/cumm [facility] ([place]) Monocyte abs 1.0(H) 0.2 - 0.8 K/cumm [facility] ([place]) Eosinophil abs 0.1 0.0 - 0.5 K/cumm [...] Fin al Result [facility] ([place]) 1 [facility] Department [place] [address] * CBC with auto differential (06/20/2023 2:36 [...] ORDERABLES Fin al Result Performing Organization Address [facility]/ZIP Co de Phone Number JUSTYNA DA[facility] ([place]) 1 [facility] [place] [address] * Troponin T high-sensitivity 4-hour (06/20/2023 2:36 AM CDT) Trop T hs 11 <=22 ng/L Comment: Interpretive Data For further hscTnT resources including the diagnostic algorithm and an aid in interpretation, copy and paste this link: https://nrl.testcatalog.org/show/hsTrop Current Interpretive Data last revised 2020. Trop T hs delta -1 ng/L [facility] ([place]) Trop T hs interp Insignificant [facility] ([place]) Blood 06/20/2023 2:36 AM CDT 06/20/2023 2:41 AM CDT Deedee Winston MD LAB BLOOD ORDERABLES Fin al Result Performing Organization Address [facility] Co de Phone Number JUST[facility]NA [facility] ([place]) 1 [facility] [place] [address] * (ABNORMAL) POCT glucose (06/20/2023 2:02 AM CDT) Glucose, POC 101(H) 71 - 98 mg/dL Blood 06/20/2023 2:02 AM CDT 06/20/2023 2:02 AM CDT Deedee Winston MD LAB POCT ORDERABLES - DE VICE Final Result Performing Organization Address City/[facility]/ZIP Co de Phone Number JUSTYNA [facility] ([place]) 1 [facility] [place] [employer] [place] [address] * Blood culture Blood Arm, left (06/20/2023 1:31 AM CDT) Report Final Report: No growth Comment:Testing performed by : [facility], 1 [place]., [address] Blood (Arm, left) 06/20/2023 1:31 AM CDT [...] organism identification may be performed using the GTxceligene Gram-Positive Blood Culture Assay. This assay detects microbial DNA in positive blood culture broth via hybridization of target DNA to capture oligonucleotides on a microarray. This assay has been cleared by the [place] Food and Drug Administration and its performance characteristics have been verified by the [facility]biology Laboratory. 5. ?For questions about this culture, contact the Microbiology Laboratory at [phone]. Interpretive data was last revised on 2019. us Deedee Winston MD LAB MICROBIOLOGY - GENER AL ORDERABLES Final Result JUSTYNA [facility] ([place]) 1 [facility] Department [place] [address] * eGFR (06/20/2023 1:26 AM CDT) eGFR [...] ORDERABLES Final Res ult JUSTYNA [facility] ([place]) 1 [facility] [place] [address] * Differential, auto (06/20/2023 1:26 AM CDT) Neutrophil abs 5.7 1.5 - 6.5 K/cumm Imm gran abs 0.1 0.0 - 0.1 K/cumm JUST[facility] ([place]) Lymphocyte abs 1.4 0.8 - 3.3 K/cumm [...] Final Res ult [facility] ([place]) 1 [facility] Department [place] [address] * Sepsis Lactate w/ Reflex (06/20/2023 1:26 AM CDT) Pathologist [facility] Sepsis Lactate 0.9 0.7 - 2.0 mmol/L Blood 06/20/2023 1:26 AM CDT 06/20/2023 1:34 AM CDT us Deedee Winston MD LAB BLOOD ORDERABLES Fin al Result JUSTYNA [facility] ([place]) 1 [facility] [place] [address] * CBC with auto differential (06/20/2023 1:26 AM CDT) [facility] WBC 8.1 3.8 - 9.9 K/cumm [...] Final Res ult JUSTYNA [facility] ([place]) 1 [facility] [place] [address] * (ABNORMAL) Basic metabolic panel (06/20/2023 1:26 [...] ([place]) Glucose 95 70 - 199 mg/dL [facility] ([place]) Comment: Interpretive Data Fasting glucose [...] 2022. Calcium 8.7 8.5 - 10.3 mg/dL [facility] ([place]) Blood 06/20/2023 1:26 AM CDT 06/20/2023 1:34 AM CDT Markel Hines MD LAB BLOOD ORDERABLES Final Res ult [facility] ([place]) 1 [facility] [place] [employer] [place] [address] * Troponin T high-sensitivity 2-hour (06/20/2023 12:35 [...] BLOOD ORDERABLES Fin al Result JUSTYNA [facility] ([place]) 1 [facility] Department [place] [address] * CT Thoracic Spine WO Contrast (06/19/2023 [...] finding. LUMBAR SPINE SEGMENTATION: ??There are 6 eqt-neu-kvhizyq lumbarized vertebral bodies. The last lumbarized vertebral [...] anatomy at the lumbosacral junction with 6 ccv-fqn-cedanxq lumbarized vertebral bodies. The last lumbarized vertebral body is designated L6. THIS IS AN ELECTRONICALLY VERIFIED FINAL REPORT 06/20/2023 1:39 AM - Electronically signed by ??Nanette Guaman M.D. SN: SN D: ??06/20/2023 1:39 AM T: ??06/20/2023 1:39 AM Report ID: [id number] Reading Location: ??[id number] Procedure Note Nanette Guaman MD - 06/20/2023 [...] is diffuse disc height loss T2-T3 through C20-R25lauf small anterior endplate osteophytes at these levels. HARDWARE: None in the spine. SPINAL CANAL/NEURAL FORAMINA: No significant osseous spinal canal orneural foraminal stenosis. VISUALIZED RIBS: No fractures. SOFT TISSUES: The visualized portions of the lungs appear clear. No significant or acute finding in the adjacent soft tissues. OTHER: No other significant finding. LUMBAR SPINE SEGMENTATION: There are 6 ppd-pdf-oovvald lumbarized vertebral bodies.The last lumbarized vertebral body [...] anatomy at the lumbosacral junction with 6 pkg-orv-rhnogga lumbarized vertebral bodies. The last lumbarized vertebral body isdesignated L6. THIS IS AN ELECTRONICALLY VERIFIED FINAL REPORT 06/20/2023 1:39 AM - Electronically signed by Nanette Guaman M.D. SN: SN Report ID: [id number] Reading Location: [place] [address] [facility] CT PROCEDURES Final Result * CT Lumbar [...] finding. LUMBAR SPINE SEGMENTATION: ??There are 6 nqf-xpl-vdclbnk lumbarized vertebral bodies. The last lumbarized vertebral [...] anatomy at the lumbosacral junction with 6 vuk-vsu-rdqtsqq lumbarized vertebral bodies. The last lumbarized vertebral body is designated L6. THIS IS AN ELECTRONICALLY VERIFIED FINAL REPORT 06/20/2023 1:39 AM - Electronically signed by ??Nanette Guaman M.D. SN: SN D: ??06/20/2023 1:39 AM T: ??06/20/2023 1:39 AM Report ID: [id number] Reading Location: ??[id number] Procedure Note Nanette Guaman MD - 06/20/2023 [...] is diffuse disc height loss T2-T3 through V44-Y27mciq small anterior endplate osteophytes at these levels. HARDWARE: None in the spine. SPINAL CANAL/NEURAL FORAMINA: No significant osseous spinal canal orneural foraminal stenosis. VISUALIZED RIBS: No fractures. SOFT TISSUES: The visualized portions of the lungs appear clear. No significant or acute finding in the adjacent soft tissues. OTHER: No other significant finding. LUMBAR SPINE SEGMENTATION: There are 6 hug-jej-uipvxgu lumbarized vertebral bodies.The last lumbarized vertebral body [...] anatomy at the lumbosacral junction with 6 pch-azg-ozscfqx lumbarized vertebral bodies. The last lumbarized vertebral body isdesignated L6. THIS IS AN ELECTRONICALLY VERIFIED FINAL REPORT 06/20/2023 1:39 AM - Electronically signed by Nanette Guaman M.D. SN: SN Report ID: [id number] Reading Location: [place] [address] Deedee Winston MD IMG CT PROCEDURES Final [...] PM T: ??06/19/2023 11:15 PM Report ID: [id number] Reading Location: ??[id number] Procedure Note Sekou Kan MD - 06/19/2023 [...] Sekou Kan M.D. KH: JOHNY Report ID: [id number] Reading Location: [id number] Deedee Winston MD IMG CT PROCEDURES Final [...] PM T: ??06/19/2023 11:11 PM Report ID: [id number] Reading Location: ??[id number] Procedure Note Sekou Kan MD - 06/19/2023 [...] signed by Sekou MCCLAIN: JOHNY Report ID: [id number] Reading Location: [id number] Deedee Winston MD [facility] CT PROCEDURES Final Result * Stool culture Stool Rectum (06/19/2023 10:18 PM CDT) Direct Specimen Exam Shiga Toxin Testing: Antigen detection assay for Shiga-toxin NEGATIVE for Shiga Toxin 1 and Shiga Toxin 2. Comment:Testing performed by : [facility], [address] [place]., [address] Report Final Report: No growth of enteric bacterial pathogens JUSTYNA DA[facility] ([place]) Comment:Testing performed by : [facility], [address] [place]., [address] Stool (Rectum) 06/19/2023 10 :18 PM CDT 06/20/2023 5:37 AM CDT Narrative JUSTYNA [facility] ([place]) - 06/24/2023 8:00 AM CDT Received in transport media. Testing performed by [facility] ([phone]). Routine stool cultures include procedures to detect Salmonella, Shigella, Edwardsiella, Aeromonas, Pleisiomonas, Campylobacter, Yersinia, E. coli O157, and Shiga-like toxins. ?? Vibrio is cultured only upon special request. ??If Vibrio is suspected, please call the laboratory at [phone]. Interpretive data was last updated August 06, 2016. La Hendrix MD LAB MICROBIOLOGY - GENERAL ORDERABLES Final Result JUSTYNA [facility] ([place]) 1 [facility] [place] [address] * C. difficile testing Stool (06/19/2023 10:18 PM CDT) [facility] ER Result Negative Negative Toxin Result Negative Negative [...] ORDERABLES Final Result JUSTYNA [facility] ([place]) 1 [facility] [place] [address] * (ABNORMAL) CRP (acute phase) (06/19/2023 9:52 PM CDT) CRP 39.9(H) <=10.0 mg/L Blood 06/19/2023 9:52 PM CDT 06/19/2023 11:38 PM CDT us Deedee Winston MD LAB BLOOD ORDERABLES Fin al Result JSUTYNA DAHL ([place]) 1 [facility] [place] [employer] [place] [address] * Blood culture Blood Arm, left (06/19/2023 9:52 PM CDT) Report Final Report: No growth Comment:Testing performed by : [facility], [address] [facility] [address] Blood (Arm, left) 06/19/2023 9:52 PM CDT [...] organism identification may be performed using the GTxceligene Gram-Positive Blood Culture Assay. This assay detects microbial DNA in positive blood culture broth via hybridization of target DNA to capture oligonucleotides on a microarray. This assay has been cleared by the [place] Food and Drug Administration and its performance characteristics have been verified by the [facility] Microbiology Laboratory. 5. ?For questions about this culture, contact the Microbiology Laboratory at [phone]. Interpretive data was last revised on 2019. us Deedee Winston MD LAB MICROBIOLOGY - GENER AL ORDERABLES Final Result JUSTYNA DAHL ([place]) 1 [facility] [place] [address] * Pro B-type natriuretic peptide [...] ORDERABLES Fin al Result Performing Organization Address City/[facility]/ZIP Co de Phone Number JUSTYNA DAHL ([place]) 1 [facility] [place] [address] * Phosphorus (06/19/2023 9:51 PM CDT) Phosphorus, pl 3.9 2.3 - 4.5 mg/dL Blood 06/19/2023 9:51 PM CDT 06/19/2023 9:56 PM CDT Deedee Winston MD LAB BLOOD ORDERABLES Fin al Result JUSTYNA DAHL ([place]) 1 [facility] [place] [address] * Magnesium (06/19/2023 9:51 PM CDT) Magnesium 1.6 1.4 - 2.5 mg/dL Blood 06/19/2023 9:51 PM CDT 06/19/2023 9:56 PM CDT Deedee Winston MD LAB BLOOD ORDERABLES Fin al Result JUSTYNA DAHL ([place]) 1 [facility] [place] [address] * Thyroid Function Mcpherson (06/19/2023 9:51 PM CDT) TSH 1.70 0.30 - 4.20 mcIUnit/mL Blood 06/19/2023 9:51 PM CDT 06/19/2023 9:56 PM CDT Deedee Winston MD LAB BLOOD ORDERABLES Alex kendy Result - Final Performing Organization Address [facility] Co de Phone Number JUSTYNA DAHL ([place]) [address] [place] [address] [place] [address] * aPTT (06/19/2023 9:51 PM CDT) aPTT [...] BLOOD ORDERABLES Fin al Result JUSTYNA DAHL ([place]) 1 [facility] [place] [address] * Protime-INR (06/19/2023 9:51 PM CDT) PT [...] ORDERABLES Fin al Result Performing Organization Address [facility] Co de Phone Number [facility] ([place]) 1 [facility] [place] [address] * Troponin T high-sensitivity series (baseline, 2hr, [...] ORDERABLES Fin al Result Performing Organization Address [facility] Co de Phone Number JSUTYNA [facility] ([place]) 1 [facility] [place] [address] * X-ray chest 1 view (Portable) (06/19/2023 [...] PM T: ??06/19/2023 8:52 PM Report ID: [id number] Reading Location: ??[id number] Procedure Note Sekou Gaines MD - 06/19/2023 [...] Sekou Gaines M.D. KT: KT Report ID: [id number] Reading Location: [id number] us Deedee Winston MD IMG XR PROCEDURES Final Result * POCT glucose (06/19/2023 8:43 PM CDT) Glucose, POC 79 71 - 98 mg/dL Blood 06/19/2023 8:43 PM CDT 06/19/2023 8:43 PM CDT us Deedee Winston MD LAB POCT ORDERABLES - DE VICE Final Result JUSTYNA DAHL ([place]) 1 [facility] [place] [address] * CT Abdomen Pelvis W Contrast (06/19/2023 [...] PM T: ??06/19/2023 6:22 PM Report ID: [id number] Reading Location: ??[id number] Procedure Note Sekou Kan MD - 06/19/2023 [...] Sekou Kan M.D. KH: JOHNY Report ID: [id number] Reading Location: [place] [address] Markel Hines MD IMG CT PROCEDURES Final Result * ECG 12 lead (06/19/2023 5:25 PM CDT) 06/19/2023 5:25 PM CDT Narrative [facility] - 06/20/2023 11:16 AM CDT Vent Rate: 138 bpm RR Interval: 432 msec TN Interval: 134 msec QRS Duration: 88 msec QT Interval: 301 msec QTC Interval: 382 msec P-R-T [place]: 12 - 40 - 33 degrees IMPRESSION: SINUS TACHYCARDIA NONSPECIFIC T-WAVE ABNORMALITY ABNORMAL RHYTHM ECG Electronically Signed By: Jose Julian MD Markel Hines MD ECG ORDERABLES Final Result Performing Organization Address [facility] de Phone Number [facility] * POCT glucose (06/19/2023 4:22 PM CDT) Glucose, POC 73 71 - 98 mg/dL Blood 06/19/2023 4:22 PM CDT 06/19/2023 4:22 PM CDT Markel Hines MD LAB POCT ORDERABLES - DEVICE F inal Result Performing Organization Address City/[facility]/ZIP Co de Phone Number JUSTYNA DAHL ([place]) 1 [facility] [place] [address] * Urinalysis reflex to microscopic [...] for uric acid stone formation. Source: [facility] Current Interpretive Data was last revised on 2017 Protein, ur ql Negative Negative [facility] ([place]) Glucose, ur ql Negative Negative [facility] ([place]) Ketones, ur Negative Negative [facility] ([place]) Bilirubin, ur Negative Negative [facility] ([place]) Blood, ur Negative Negative [facility] ([place]) Urobilinogen, ur <2.0 <2.0 mg/dL [facility] ([place]) Nitrite, ur Negative Negative [facility] ([place]) Leukocyte esterase, ur Negative Negative [facility] ([place] UA reflex comment Reflex conditions for microscopic UA and culture not met. [facility] ([place]) Urine 06/19/2023 2:30 PM CDT 06/19/2023 2:33 PM CDT us Markel Hines MD LAB MICROBIOLOGY - GENERAL ORD ERABLES Final Result [facility] ([place]) 1 [facility] Department [place] [address] * Influenza A/B, RSV, and COVID-19 PCR Nasopharyngeal (06/19/2023 1:47 PM CDT) COVID-19 RNA Negative Negative Influenza A RNA Negative Negative [facility] ([place]) Influenza B RNA Negative Negative [facility] ([place]) RSV RNA Negative Negative [facility] ([place]) Comment: Interpretive data: Testing performed by [facility]. This test is performed using the [employer] Xpert Xpress CoV-2/Flu/RSV plus assay. This is a multiplex, real- time reverse transcriptase PCR assay intended for the qualitative detection of nucleic acid from SARS-CoV-2, influenza A, influenza B, and respiratory syncytial virus. This assay has been cleared by the [place] Food and Drug administration. The performance characteristics have been verified by the [facility]. ?? Results must be considered in the clinical context, and a negative result does not rule out infection. Interpretive Data last revised 2023 Nasopharyngeal 06/19/2023 1: 47 PM CDT 06/19/2023 1:[address] [facility] ([place]) - 06/19/2023 2:28 PM CDT Is the Patient experiencing symptoms consistent with COVID?->Yes La Hendrix MD LAB MICROBIOLOGY - GENERAL ORDERABLES Final Result Performing Organization Address [facility] Co de Phone Number JUSTYNA [facility] ([place]) 1 [place] [address] * Erythrocyte sedimentation rate (06/19/2023 1:34 PM CDT) Erythrocyte sedimentation rate 9 1 - 15 mm/hr Blood 06/19/2023 1:34 PM CDT 06/19/2023 11:21 PM CDT Deedee Winston MD LAB BLOOD ORDERABLES Fin al Result Performing Organization Address [facility] Co de Phone Number JUSTYNA [facility] ([place]) 1 [place] [address] * eGFR (06/19/2023 1:33 PM CDT) eGFR [...] ORDERABLES Final Res ult JUSTYNA [facility] ([place]) 1 [facility] [place] [address] * (ABNORMAL) Differential, auto (06/19/2023 1:33 PM CDT) Neutrophil abs 10.1(H) 1.5 - 6.5 K/cumm Imm gran abs 0.1 0.0 - 0.1 K/cumm [facility] ([place]) Lymphocyte abs 0.8 0.8 - 3.3 K/cumm [facility] ([place]) Monocyte abs 0.6 0.2 - 0.8 K/cumm [facility] ([place]) Eosinophil abs 0.1 0.0 - 0.5 K/cumm [facility] ([place]) Basophil abs 0.0 0.0 - 0.1 K/cumm [facility] ([place]) Neutrophil pct 86.1 % [facility] ([place]) Comment: Interpretive Data Percent cell count reference [...] Final Res ult JUSTYNA DAHL ([place]) 1 [facility] [place] [address] * Lipase (06/19/2023 1:33 PM CDT) Lipase 32 10 - 99 Units/L Blood 06/19/2023 1:33 PM CDT 06/19/2023 2:09 PM CDT us La Hendrix MD LAB BLOOD ORDERABLE S Final Result JUSTYNA [facility] ([place]) 1 [facility] Department of Laboratories [place], [place] [id number] * (ABNORMAL) Comprehensive metabolic panel (06/19/2023 1:33 [...] Final Res ult [facility] ([place]) 1 [facility] [place] [address] * (ABNORMAL) CBC with auto differential (06/19/2023 [...] Final Res ult [facility] ([place]) 1 [facility] [place] [address] * (ABNORMAL) POCT glucose (06/19/2023 1:27 PM CDT) Glucose, POC 106(H) 71 - 98 mg/dL Blood 06/19/2023 1:27 PM CDT 06/19/2023 1:27 PM CDT us Notinfile Unknown LAB POCT ORDERABLES - DEVICE F inal Result JUSTYNA DAHL ([place]) 1 [facility] [place] [address] documented in this encounter Visit Diagnoses Diagnosis [...] Diabetes Mellitus 0814 (Not Given - Provider: lEeno Gomez RN - Reason: Order parameters not [...] 1100 (Lab Draw - Provider: Anais Torres, [facility] - Comment: Vanco trough) Continuous Medication Order [...] Silva, JOVANNY)1046 (Given - Provider: Eleno Gomez, JOVANNY)1903 (Given - Provider: Eleno Gomez, JOVANNY) ondansetron [...] 1129 (Contrast Given - Provider: [place] [facility]) Linked Groups Order Group 1: dextrose gel [...] documented as of this encounter Care Teams Wrinkle Chaser Relationship Specialty Start Date End Date Starla Parham MD PCP - General Family Medicine 11/13/21 03/02/24 documented as of this encounter
--- OUTSIDE RECORDS SUMMARY | 2024-04-04 20:09 | XMS_ITS | Encounter Summary ---
Author Organization [facility] Address [address] [place] [address] Care Team Providers Care Capsule Machine Operator Name Role Phone Manish Maldonado MD Primary Care Provider Encounter Details Date Type Department Care Team (Late st Contact Info) Description 04/21/2020 6:33 PM WEB RETAILER - 04/21/2020 10:17 PM WEB RETAILER Emergency [facility] Emergency Department [address] [place] [address] Unknown, Notinfile Anais Sherman, CORPORATE SECURITIES RESEARCH ANALYST [address] [facility] [address] [address] Discharge Disposition: Discharge to home or self care Social History Tobacco Use Types Packs/Day Years Used Date Smoking Tobacco: Never Smokeless Tobacco: Never Alcohol Use Standard Drinks/Week Comments Yes 0 (1 standard drink = 0.6 oz pur e alcohol) rarely Sex and Gender Information Value Date Recorded Sex Assigned at Not on file Legal Sex Male 7:25 PM WEB RETAILER Gender Identity Not on file Sexual Orientation Not on file documented as of this encounter Last Filed Vital Signs Vital Sign Reading Time Taken Comments Blood Pressure 131/87 04/21/2020 7:02 PM WEB RETAILER Pulse 85 04/21/2020 7:02 PM WEB RETAILER Temperature 36.9 ??C (98.4 ??F) 04/21/2020 7:02 PM CS T Respiratory Rate - - Oxygen Saturation 96% 04/21/2020 7:02 PM WEB RETAILER Inhaled Oxygen Concentration - - Weight 145 kg (319 lb 10.7 oz) 04/21/2020 7:02 P M WEB RETAILER Height 180.3 cm (5' 11 ) 04/21/2020 7:02 PM WEB RETAILER Body Mass Index 44.58 04/21/2020 7:02 PM WEB RETAILER documented in this encounter Medications at Time of Discharge albuterol HFA (PROVENTIL HFA,VENTOLIN HFA,PROAIR HFA) 90 mcg/actuation inhaler TAKE 2 PUFFS BY MOUTH EVERY 6 HOURS NEEDED FOR WHEEZE OR SHORTNESS OF BREATH 06/30/2019 blood sugar diagnostic (ONETOUCH VERIO TEST STRIPS [facility]) OneTouch Verio test strips BD Ultra-Fine Josephine [...] insulin pen 09/30/2019 2 lancets 33 gauge [facility] OneTouch Delica Lancets 33 gauge use to [...] Comments SCAN - LABS 04/22/2020 12:00 AM WEB RETAILER INFLUENZA A/B, RSV, AND COVID-19 PCR Routine 04/21/2020 9:45 PM WEB RETAILER CBC WITH AUTO DIFFERENTIAL Routine 04/21/2020 8:08 PM WEB RETAILER LIPASE Routine 04/21/2020 8:08 PM WEB RETAILER AMYLASE Routine 04/21/2020 8:08 PM WEB RETAILER COMPREHENSIVE METABOLIC PANEL Routine 04/21/2020 8:08 PM WEB RETAILER URINALYSIS, COMPLETE W/REFLEX TO CULTURE Routine 04/21/2020 7:[address] ABDOMEN PELVIS W CONTRAST 04/21/2020 12:00 AM WEB RETAILER documented in this encounter Results * SCAN - LABS (04/22/2020 12:00 AM WEB RETAILER) Narrative 04/22/2020 12:00 AM WEB RETAILER Ordered by an unspecified provider. Historical Provider Final Res ult * Influenza A/B, RSV, and COVID-19 PCR (04/21/2020 9:45 PM WEB RETAILER) Pathologist [facility] Influenza A RNA NEGATIVE NEGATIVE [facility] Influenza B RNA NEGATIVE NEGATIVE [facility] RSV RNA NEGATIVE NEGATIVE [facility] COVID-19 RNA NEGATIVE [facility] Comment: Testing was performed on the [employer] Xpert Xpress SARS-CoV-2 real-time RT-PCR platform under FDA Emergency Use Authorization. ??This test is validated only for appropriately collected nasopharyngeal swab specimens. ??A negative result does not preclude infection with COVID-19 and should not be used as the sole basis for treatment or other patient management decisions. 04/21/2020 9:45 PM WEB RETAILER 04/21/2020 10:13 PM WEB RETAILER Narrative [facility] - 04/21/2020 11:01 PM WEB RETAILER [id number] Yes No Unknown No No Yes FeverMyalgias Scheduled procedure Resulting Agency Comment ER Anais Sherman NP LAB MICROBIOLOGY - GENERAL NAVIN SPENCE Final Result [facility] [address] [place] [address] * Lipase (04/21/2020 8:08 PM WEB RETAILER) Lipase 50 13 - 60 U/L [facility] 04/21/2020 8:08 PM WEB RETAILER 04/21/2020 8:20 PM WEB RETAILER Narrative Resulting Agency Comment ER us Anais Sherman CORPORATE SECURITIES RESEARCH ANALYST LAB BLOOD ORDERABLES Final Resu lt Performing Organization Address [facility]/ZIP Co de Phone Number [address] [phone] * Amylase (04/21/2020 8:08 PM WEB RETAILER) Amylase 78 28 - 100 U/L [facility] 04/21/2020 8:08 PM WEB RETAILER 04/21/2020 8:20 PM WEB RETAILER Narrative Resulting Agency Comment ER us Anais Sherman CORPORATE SECURITIES RESEARCH ANALYST LAB BLOOD ORDERABLES Final Resu lt Performing Organization Address [facility] Co de Phone Number [address] [phone] * Comprehensive metabolic panel (04/21/2020 8:08 PM WEB RETAILER) Sodium 140 135 - 145 mmol/L [facility] Potassium 4.0 3.3 - 5.1 mmol/L [facility] Chloride 101 96 - 108 mmol/L [facility] Carbon Dioxide 28 22 - 32 mmol/L [facility] Anion Gap 11 7 - 16 [facility] Glucose 97 70 - 100 mg/dL [facility] BUN 16 8 - 25 mg/dL [facility] Creatinine 1.0 0.5 - 1.3 mg/dL [facility] Comment: NOTE: Estimated GFR (Cockroft-Gault) will NOT be calculated unless patient Height and Weight were entered. Also, Kidney Disease Stage (GFR) and Estimated GFR (Cockroft-Gault) will NOT be calculated if Creatinine result is <0.2. Kidney Disease Stage >90 mL/MIN [facility] Comment: NOTE; ??The GFR is an estimated [...] on dialysis Est GFR (Cockcroft-G) 155 ml/MIN [facility] Comment: Estimated GFR(Cockroft-Gault)is used to calculate patient medication dosage Calcium 10.1 8.6 - 10.3 mg/dL [facility] Total Protein 8.1 6.4 - 8.3 g/dL [facility] Albumin 5.0 3.5 - 5.0 g/dL [facility] Globulin 3.1 2.3 - 3.5 gm/dL [facility] Albumin/Globulin Ratio 1.6 1.1 - 1.8 [facility] Total Bilirubin <0.2 0.0 - 1.2 mg/dL [facility] AST 25 0 - 40 U/L [facility] ALT 30 0 - 41 U/L [facility] Alkaline Phosphatase 63 40 - 129 U/L [facility] 04/21/2020 8:08 PM WEB RETAILER 04/21/2020 8:20 PM WEB RETAILER Narrative Resulting Agency Comment ER us Anais GanLexy Sherman CORPORATE SECURITIES RESEARCH ANALYST LAB BLOOD ORDERABLES Final Resu lt [facility] [address] [phone] * (ABNORMAL) CBC with auto differential (04/21/2020 8:08 PM WEB RETAILER) WBC 9.6 3.8 - 9.9 X10 3/ul [facility] RBC 5.17 4.30 - 5.80 x10 6/ul [facility] Hemoglobin 14.6 13.0 - 17.5 g/dL [facility] Hct 45.7 38.9 - 50.3 % [facility] MCV 88.4 81.3 - 96.4 fl [facility] MCH 28.2 27.1 - 33.3 pg [facility] MCHC 31.9(L) 32.3 - 35.7 g/dl [facility] RDW 12.5 11.1 - 14.9 % [facility] Plt Count 297 150 - 400 x10 3/ul [facility] MPV 9.7 9.1 - 12.3 fl [facility] Neut % 62.7 % [facility] [employer] - [employer] Immature Gran % 0.4 % [facility] Lymph % 27.5 % [facility] E AST - [employer] [place] % 7.6 % [facility] AST - [employer] Eos % 1.3 % [facility] AST - [employer] AUTO BASO % 0.5 % [facility] NEUTROPHIL ABS # 6.0 1.7 - 6.5 x10 3/ul [facility] Immature Gran # 0.0 0.0 - 0.1 x10 3/ul [facility] Absolute Lymphs (auto) 2.7 0.8 - 3.3 x10 3/ul [facility] Absolute Monos (auto) 0.7 0.2 - 0.8 x10 3/ul [facility] Absolute Eos (auto) 0.1 0.0 - 0.5 x10 3/ul [facility] BASOPHIL ABS # 0.1 0.0 - 0.1 x10 3/ul [facility] Nucleat RBC Rel Count 0.0 #/100WBC [facility] NRBC abs 0.00 0.00 - 0.01 x10 3/ul [facility] Absolute Neutrophils 6,000 200 - 8,000 /ul [facility] 04/21/2020 8:08 PM WEB RETAILER 04/21/2020 8:20 PM WEB RETAILER Narrative Resulting Agency Comment ER Anais Sherman CORPORATE SECURITIES RESEARCH ANALYST LAB BLOOD ORDERABLES Final Resu lt [address] [phone] * (ABNORMAL) URINALYSIS, COMPLETE W/REFLEX TO CULTURE (04/21/2020 7:52 PM WEB RETAILER) Ur Collection Type CLEAN CATCH [facility] Ur Culture Indicated? C S NOT INDICATED [facility] Urine Color YELLOW YELLOW [facility] Urine Clarity CLEAR CLEAR [facility] Urine Glucose (UA) NORMAL NORMAL mg/dL [facility] Urine Bilirubin NEGATIVE NEGATIVE mg/dl [facility] Urine Ketones NEGATIVE NEGATIVE mg/dL [facility] Ur Specific [place] 1.029(H) 1.005 - 1.025 [facility] Urine Blood 0.2(A) NEGATIVE mg/dl [facility] Urine pH 5.0 5.0 - 8.0 [facility] Urine Protein NEGATIVE NEGATIVE mg/dL [facility] Urine Urobilinogen NORMAL NORMAL mg/dL [facility] Urine Nitrite NEGATIVE NEGATIVE [facility] Ur Leukocyte Esterase NEGATIVE NEGATIVE [place]/ul [facility] Ur Microscopic Review Indicated or Ordered [facility] Urine RBC 0-2 0 - 2 /HPF [facility] Urine WBC 0-5 0 - 2 /HPF [facility] Urine Mucus Present /LPF [facility] 04/21/2020 7:52 PM WEB RETAILER 04/21/2020 8:01 PM WEB RETAILER Narrative [facility] - 04/21/2020 8:19 PM WEB RETAILER Indication(s) for ordering ?? Dysuria mmb Clean catch Resulting Agency Comment ER us Anais Sherman CORPORATE SECURITIES RESEARCH ANALYST LAB URINE ORDERABLES Final Resu lt Performing Organization Address [facility]/State/ZIP Co de Phone Number [facility] [address] [place] [address], [facility] [phone] * CT Abdomen Pelvis W Contrast (04/21/2020 12:00 AM WEB RETAILER) Anatomical Region Laterality Modality Body N/A Computed Tomogra phy 04/21/2020 9:25 PM WEB RETAILER Narrative 04/21/2020 9:30 PM WEB RETAILER Patient Name: AMA BAILEY ?Ordering Dr: Anais Sherman ANP ?? D.O.B: 1985 ? Exam Date: 04/21/20 ?? 0000 ?? Age: 34 ?Sex: Male ? MR#: [id number] ?? Loc: ? RADIOLOGY REPORT ?? Order #[id number] ?? CT Scan ? CT Abd/Pelvis W [...] T: ??04/21/2020 9:30 PM ? Report ID: [id number] ?? Reading Location: ??[id number] ? REPORT ELECTRONICALLY SIGNED IN OTHER VENDOR SYSTEM ?? Resulting Agency Comment P Procedure Note Topher Humphrey MD - 04/21/2020 Patient Name: AMA BAILEY Dr: Anais Sherman D.O.B: 1985 Exam Date: 04/21/20 0000 Age: 34 Sex: Male MR#: [id number] Loc: RADIOLOGY REPORT Order #[id number] CT Scan CT Abd/Pelvis W IV Contrast [...] Topher Humphrey M.D. [place]: CE Report ID: [id number] Reading Location: [place] [address] REPORT ELECTRONICALLY SIGNED IN OTHER VENDOR SYSTEM us Anais Sherman CORPORATE SECURITIES RESEARCH ANALYST IMG CT PROCEDURES Final Result documented in this encounter Visit Diagnoses Not on filedocumented in this encounter Care Teams Capsule Machine Operator Relationship Specialty Start Date End Date Manish Maldonado MD PCP - General 11/17/19 11/12/21 documented as of this encounter
--- OUTSIDE RECORDS SUMMARY | 2024-04-04 20:09 | XMS_ITS | Encounter Summary ---
Author Organization [facility] Healthcare Address [address] [place] [address] Care Team Providers Care Hand Reamer Name Role Phone Manish Maldonado MD Primary Care Provider Encounter Details Date Type Department Care Team (Late st Contact Info) Description 10/26/2019 1:18 PM CDT - 10/26/2019 11:59 PM CDT Hospital Encounter [facility] INTERIM Anurag Olivares MD [address] [facility] [address] [address] Discharge Disposition: Discharge to home or self care Social History Tobacco Use Types Packs/Day Years Used Date Smoking Tobacco: Never Smokeless Tobacco: Never Alcohol Use Standard Drinks/Week Comments Yes 0 (1 standard drink = 0.6 oz pur e alcohol) rarely Sex and Gender Information Value Date Recorded Sex Assigned at Not on file Legal Sex Male 7:25 PM 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 Gender Identity Not on file Sexual Orientation Not on file documented as of this encounter Medications at Time of Discharge albuterol HFA (PROVENTIL HFA,VENTOLIN HFA,PROAIR HFA) 90 mcg/actuation inhaler TAKE 2 PUFFS BY MOUTH EVERY 6 HOURS NEEDED FOR WHEEZE OR SHORTNESS OF BREATH 06/30/2019 blood sugar diagnostic (ONETOUCH VERIO TEST STRIPS [facility]) OneTouch Verio test strips BD Ultra-Fine Josephine [...] on filedocumented in this encounter Care Teams Hand Reamer Relationship Specialty Start Date End Date Manish Maldonado MD PCP - General 09/28/19 11/16/19 documented as of this encounter
--- OUTSIDE RECORDS SUMMARY | 2024-04-04 20:09 | XMS_ITS | Encounter Summary ---
Author Organization [facility] Healthcare Address [address] [place] [address] Care Team Providers Care Master Yacht Name Role Phone Manish Maldonado MD Primary Care Provider Encounter Details Date Type Department Care Team (Late st Contact Info) Description 04/22/2020 12:43 PM SUPERVISOR RUBBER COVERING Hospital Encounter [facility]IM Anais Sherman, SALES OFFICE MANAGER [address] [facility] [address] [address] Social History Tobacco Use Types Packs/Day Years Used Date Smoking Tobacco: Never Smokeless Tobacco: Never Alcohol Use Standard Drinks/Week Comments Yes 0 (1 standard drink = 0.6 oz pur e alcohol) rarely Sex and Gender Information Value Date Recorded Sex Assigned at Not on file Legal Sex Male 7:25 PM SUPERVISOR RUBBER COVERING Gender Identity Not on file Sexual Orientation Not on file documented as of this encounter Medications at Time of Discharge albuterol HFA (PROVENTIL HFA,VENTOLIN HFA,PROAIR HFA) 90 mcg/actuation inhaler TAKE 2 PUFFS BY MOUTH EVERY 6 HOURS NEEDED FOR WHEEZE OR SHORTNESS OF BREATH 06/30/2019 blood sugar diagnostic (ONETOUCH VERIO TEST STRIPS [facility]) OneTouch Verio test strips BD Ultra-Fine Josephine [...] Associated Diagnosis Comments RUQ 04/22/2020 12:47 PM SUPERVISOR RUBBER COVERING documented in this encounter Results * US RUQ (04/22/2020 12:47 PM SUPERVISOR RUBBER COVERING) Anatomical Region Laterality Modality Abdomen N/A Ultrasound 04/22/2020 5:49 PM SUPERVISOR RUBBER COVERING Narrative 04/22/2020 5:51 PM SUPERVISOR RUBBER COVERING Patient Name: AMA BAILEY ?Ordering Dr: Anais Sherman ANP ?? D.O.B: 1985 ? Exam Date: 04/22/20 ?? 1247 ?? Age: 34 ?Sex: Male ? MR#: [id number] ?? Loc: ? RADIOLOGY REPORT ?? Order #[id number] ?? Ultrasound ? US Abd/Right Upper Quadrant [...] 5:51 PM ?? T: ? Report ID: [id number] ?? Reading Location: ??[id number] ? REPORT ELECTRONICALLY SIGNED IN OTHER VENDOR SYSTEM ?? Resulting Agency Comment O Procedure Note Domenic Goncalves MD - 04/22/2020 Patient Name: AMA BAILEY Dr: Anais Sherman D.O.B: 1985 Exam Date: 04/22/20 1247 Age: 34 Sex: Male MR#: [id number] Loc: RADIOLOGY REPORT Order #[id number] Ultrasound US Abd/Right Upper Quadrant Signed EXAM [...] signed by Domenic Goncalves T: Report ID: [id number] Reading Location: [place] [id number] REPORT ELECTRONICALLY SIGNED IN OTHER VENDOR SYSTEM us Anais Sherman SALES OFFICE MANAGER IMG US PROCEDURES Final Result documented in this encounter Visit Diagnoses Not on filedocumented in this encounter Care Teams Master Yacht Relationship Specialty Start Date End Date Manish Maldonado MD PCP - General 11/17/19 11/12/21 documented as of this encounter
--- OUTSIDE RECORDS SUMMARY | 2024-04-04 20:09 | XMS_ITS | Encounter Summary ---
Author Organization [facility] Address [address] [place] [address] Care Team Providers Care Heat Treat Supervisor Name Role Phone Satrla Parham MD Primary Care Provider [phone] Encounter Details Date Type Department Care Team (Latest Contact Info) Description 11/29/2021 3:00 PM CDT Office Visit [facility] [address] [place] [address] Shubham Reeder MD [address] [facility] [address] [address] Psychophysiological insomnia (Primary Dx); Hypersomnia; [...] on file Legal Sex Male 7:25 PM COMMERCIAL OCEAN CLAMMER Gender Identity Not on file Sexual Orientation [...] Body Mass Index 44.21 04/21/2020 7:02 PM COMMERCIAL OCEAN CLAMMER documented in this encounter Progress Notes * [...] does drink caffeinated beverages. 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 His [place] sleeping score is 10/24. He lives in [place], [place]. He livesin an apartment. He does have a dog who does not sleep in his bed. He is up-to-date [address] Allergies Allergen Reactions Morphine Palpitations and [...] CREATED IN PART WITH THE ASSISTANCE OF [employer] VOICE RECOGNITION SOFTWARE. BRUSH POLISHER VARIANCES MAY OCCUR. documented in this encounter [...] 06/19/2023 added in this encounter Care Teams Heat Treat Supervisor Relationship Specialty Start Date End Date Starla Parham MD PCP - General Family Medicine 11/13/21 03/02/24 documented as of this encounter
--- OUTSIDE RECORDS SUMMARY | 2024-04-04 20:09 | XMS_ITS | Encounter Summary ---
Author Organization [facility] Healthcare Address [address] [place] [address] Care Team Providers Care Correspondence Analyst Name Role Phone Starla Parham MD Primary Care Provider [phone] Reason for Referral * Diagnostic Imaging (Routine) - Pending Review Specialty Diagnoses / Procedures Referred By Contac t Referred To Contact Diagnoses Abdominal pain Procedures US RUQ Daisha Matt MD [address] [address] Phone: tel: fax: [address] [phone] Referral ID Status Reason Start Date Expiration Date V isits Requested Visits Authorized [id number] Pending Review 05/16/2023 06/14/2024 1 1 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 Reason for Visit * Diagnostic Imaging (Routine) - Pending Review Specialty Diagnoses / Procedures Referred By Contac t Referred To Contact Diagnoses Abdominal pain Procedures US RUQ Daisha Matt MD [address] [address] Phone: tel: fax: [address] [phone] Referral ID Status Reason Start Date Expiration Date V isits Requested Visits Authorized [id number] Pending Review 05/16/2023 06/14/2024 1 1 Encounter Details Date Type Department Care Team (Latest Contact Info) Description 05/20/2023 8:04 AM 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 - 05/20/2023 11:59 PM 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 Hospital Encounter [facility] Ultrasound [facility] [place] [address] Abdominal pain Discharge Disposition: Discharge to home [...] on file Legal Sex Male 7: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 US RUQ REASON [...] thickening or pericholecystic fluid. No positive sonographic [place] sign reported. ?? BILIARY: ?? Common bile [...] Electronically signed by ??Jasmeet Solis D.O. AP: EHLEN D: ??05/20/2023 8:37 AM T: ??05/20/2023 8:37 AM Report ID: [id number] Reading Location: ??[id number] Procedure Note Jasmeet Solis DO - 05/20/2023 [...] thickening or pericholecystic fluid. No positive sonographic [place] sign reported. BILIARY: Common bile duct measuring [...] Jasmeet Solis D.O. AP: AP Report ID: [id number] Reading Location: [id number] us Daisha Matt MD IMG US PROCEDURES Final R esult documented in this encounter Visit Diagnoses Diagnosis Abdominal pain Abdominal pain, unspecified site documented in this encounter Care Teams Correspondence Analyst Relationship Specialty Start Date End Date Starla Parham MD PCP - General Family Medicine 11/13/21 03/02/24 documented as of this encounter
--- OUTSIDE RECORDS SUMMARY | 2024-04-04 20:09 | XMS_ITS | Encounter Summary ---
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
== END 2024-04-01 10:45 | disposition home or self-care (01) | DRG 194 ==
LOC: ANHED 13:00 → ANHIMU 19:58 → ANH3MEDSUR 03-31 15:44 → ANHIMU 04-03 12:42
PROVIDERS: Nurse Practitioner Gerontology; Physician Assistant; Admitting Provider Internal Medicine; Emergency Provider Emergency Medicine; Visit Provider Internal Medicine
DX: J18.9 Pneumonia, unspecified organism (principal); Z68.41 Body mass index [BMI] 40.0-44.9, adult; G89.18 Other acute postprocedural pain; D72.829 Elevated white blood cell count, unspecified; R00.0 Tachycardia, unspecified; R11.2 Nausea with vomiting, unspecified; K59.03 Drug induced constipation; T40.605A Adverse effect of unspecified narcotics, initial encounter; E11.9 Type 2 diabetes mellitus without complications; K21.9 Gastro-esophageal reflux disease without esophagitis; K58.9 Irritable bowel syndrome, unspecified; I10 Essential (primary) hypertension; Z90.49 Acquired absence of other specified parts of digestive tract; Z87.891 Personal history of nicotine dependence; E66.9 Obesity, unspecified
CPT/HCPCS: 36415; 71275; 74018; 74177; 78226; 80053; 81003; 82948; 83605; 83690; 83735; 84484; 85025; 85027; 85380; 85610; 85730; 87040; 93005; 93970; 96361; 96365; 96375; 96376; 99285; A9270; A9537; J1171; J1650; J1836; J1885; J1956; J2405; J2470; J7030; Q9967

== ENCOUNTER 2024-05-09 12:26 | Emergency (ER) | payer BC, SELFPAY ==
--- OUTSIDE RECORDS SUMMARY | 2024-05-09 12:40 | XMS_ITS | Data Portability ---
Author Organization [facility] JEFFMelinda Address [address] [place] [address] Care Team Providers Care Retarder Operator Name Role Phone ARELY YOUNG Primary Care Provider Assessment Encounter Date Assessment Date Assessment LastModified by Organization Details LastModified Time 04/15/2024 04/15/2024 Merlene Sterling DO supervised OMT Not available 04/21/2024 13:46:27 Plan of Treatment Reminders Order Date Submit Date Provider Last Modified By Organization Details Last Modified Time Details Appointments None recorded. Lab H pylori Ag, qual immunoassay , stool 2022 023 [facility], [address] [facility], [place], [address], 3 11:11:31 HbA1c (hemoglobin A1c), blood 2023 024 [email or web address] In-Office Order, Internal Use Only DO Not Attach Compendium DO Not Attach Compendium, Do Not Delete/merge, [id number] 22:33:33 rapid flu (A+B) 2023 024 [email or web address] In-Office Order, Internal Use Only DO Not Attach Compendium DO Not Attach Compendium, Do Not Delete/merge, [id number] 11:33:14 rapid SARS CoV 2 Ag, QL IA, respiratory specimen 2023 024 [email or web address] In-Office Order, Internal Use Only DO Not Attach Compendium DO Not Attach Compendium, Do Not Delete/merge, [id number] 4 11:33:13 Referral gastroenter ologist referral 2022 023 CHELSIE Matt MD, [address], [place], [address], 3 15:17:26 Procedures None recorded. Surgeries None recorded. Imaging NM, hepatobilia ry scan [email or web address], [address] [facility], [place], [address], 4 12:08:22 Medication Orders ondansetron HCl 4 mg tablet 2022 024 [id number], [address], [place], [address], 4 09:12:15 amlodipine 10 mg tablet 2023 024 [facility] [address] In [facility], [address] [place] [address], [address], 4 14:22:14 Zofran 4 mg tablet 2023 024 [facility] [address] In [facility], [address] [place] [address], [address], 4 11:56:39 benzonatate 200 mg capsule 2023 025 [facility] [address], [address], 5 12:02:05 albuterol sulfate HFA 90 mcg/actuati on aerosol inhaler 2023 024 [facility] [address], [address], 4 11:33:12 albuterol sulfate HFA 90 mcg/actuati on aerosol inhaler 2024 025 [facility]ion e[facility] [address], [address], 09:09:51 doxycycline hyclate 100 mg capsule 2024 025 [facility] [address], [address], 11:45:31 Patient TargetsNo targets recorded. Patient Instructions Encounter Date Encounter Id Patient Instructions Last Modified By Organization Details Last Modified Time 12/06/2022 [id number] A healthy lifestyle: care instructions [email or web address] Not available 12/09/2022 23:04:01 On the date of this encounter, I was available to assist the resident in the care of the patient, and have reviewed and agree with the resident s findings and plan of care. ---MARIAELENA [email or web address] Not available 12/15/2022 11:00:02 09/27/2023 [id number] A healthy lifestyle: care instructions [email or web address] Not available 09/27/2023 09:25:51 Attending Physician Attestation I did not personally see or examine the patient with the resident. I was physically present to provide indirect supervision through entire encounter. I have reviewed the documentation and agree with the history, physical findings, work-up, and medical decision making as recorded. Dung Gold MD [email or web address] Not available 09/27/2023 10:18:18 03/18/2024 [id number] Attending Physician Attestation I did not personally see or examine the patient with the resident. I was physically present to provide indirect supervision through entire encounter. I have reviewed the documentation and agree with the history, physical findings, work-up, and medical decision making as recorded. MD debo Bunch Not available 03/18/2024 11:53:13 04/08/2024 [id number] A healthy lifestyle: care instructions [email or web address] Not available 04/10/2024 11:45:29 I personally saw and examined the patient with the resident. I agree with the note and plan as documented. Jacklyn Bal MD. [facility] Not available 04/08/2024 12:30:38 04/15/2024 [id number] I was present in the room with the patient and resident at the time of assessment and treatment. I agree with the plan. 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 Operator Referral for Nausea Referring Physician: Starla Parham, Paper Rewinder Operator, Encounter Date: 12/06/2022 Results Created Date Observation Date Name Description Value Unit Range Abnormal Flag Note LastModifiedBy Organization Detail LastModifiedTime 11/14/1911/13/2022 HbA1c (hemo globi n A1c), blood HbA1c 5.9 Not Available In-Office Order Internal Use Only DO Not Attach Compendium DO Not Attach Compendium, Do Not Delete/merge, [id number] 11/13/2022 16:48:58 12/07/1912/06/2022 BASIC METAB OLIC PANEL (8) glucose 98 mg/dL 70-99 Not Available [facility] Department [address] [place], [address], 12/07/2022 00:07:28 12/07/1912/06/2022 BASIC METAB OLIC PANEL (8) BUN 10 mg/dL 6-20 Not Available [facility] Department [address] [place], [address], 12/07/2022 00:07:28 12/07/19 23 12/06/2022 BASIC METAB OLIC PANEL (8) creatinine 0.69 mg/dL 0.76-1 .27 below low normal Not Available [facility] Department [address] [place], [address], 12/07/2022 00:07:28 12/07/19 23 12/06/2022 BASIC METAB OLIC PANEL (8) eGFR 124 >=60 Units for eGFR value s are mL/mi n/1.7 3 The eGFR Calcu latio n has not been valid ated for patie nts under the age of 18. If test resul ts are displ ayed for a patie nt under the age of 18, disre maite that value . Not Available [facility] Department [address] [place] [address], [address], 12/07/2022 00:07:28 12/07/19 23 12/06/2022 BASIC METAB OLIC PANEL (8) BUN/creatini ne ratio 14 9-20 Not Available [facility] Department [address] [place] [address], [address], 12/07/2022 00:07:28 12/07/19 23 12/06/2022 BASIC METAB OLIC PANEL (8) sodium 136 mmol/ L 134-14 4 Not Available [facility] Department [address] [place] [address], [address], 12/07/2022 00:07:28 12/07/19 23 12/06/2022 BASIC METAB OLIC PANEL (8) potassium 4.0 mmol/ L 3.5-5. 2 Not Available [facility] Department [address] [place] [address], [address], 12/07/2022 00:07:28 12/07/19 23 12/06/2022 BASIC METAB OLIC PANEL (8) chloride 101 mmol/ L 96-106 Not Available [facility] Department [address] [place], [address], 12/07/2022 00:07:28 12/07/19 23 12/06/2022 BASIC METAB OLIC PANEL (8) carbon dioxide, total 25 mmol/ L 20-29 Not Available [facility] Department [facility] [place], [address], 12/07/2022 00:07:28 12/07/19 23 12/06/2022 BASIC METAB OLIC PANEL (8) calcium 9.6 mg/dL 8.7-10 .2 Not Available [facility] Department [facility] [place], [address], 12/07/2022 00:07:28 09/27/19 24 09/27/2023 HbA1c (hemo globi n A1c), blood HbA1c 6.0 Not Available In-Office Order Internal Use Only DO Not Attach Compendium DO Not Attach Compendium, Do Not Delete/merge, [id number] 09/27/2023 10:01:48 03/18/20 24 03/18/2024 rapid SARS CoV 2 Ag, QL IA, respi rator y speci men rapid SARS CoV 2 Ag, QL IA, respiratory specimen negati ve Not Available In-Office Order Internal Use Only DO Not Attach Compendium DO Not Attach Compendium, Do Not Delete/merge, [id number] 03/18/2024 10:54:17 03/18/20 24 03/18/2024 rapid flu (A+B) Flu A negati ve Not Available In-Office Order Internal Use Only DO Not Attach Compendium DO Not Attach Compendium, Do Not Delete/merge, [id number] 03/18/2024 10:54:16 03/18/20 24 03/18/2024 rapid flu (A+B) Flu B negati ve Not Available In-Office Order Internal Use Only DO Not Attach Compendium DO Not Attach Compendium, Do Not Delete/merge, [id number] 03/18/2024 10:54:16 04/03/1903/20/2024 CT, abdom en + pelvi s, w/ contr ast No observ ation record ed. [email or web address] [address] [place], [address], 04/03/2024 09:58:53 Result Notes None recorded. 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 [address], [place], [address], [facility] 4 09:39:51 Obstructiv e sleep apnea syndrome 26560790 Active 2020 Denisha Uriarte null, [place] - [facility] 1 14:40:00 COVID-19 268288809 Active 2021 Cosmo Valverde null, [facility] 2 17:44:52 Hypertensi ve disorder 32222500 Active 2021 Starla Parham MD Attn: Rosy gonzalez,[address] [facility], [place], [address], [facility] - [facility] 2 22:15:53 Obesity 728750573 Active 2021 Starla Parham MD Attn: Rosy gonzalez,[address] [place], [address], [facility] - [facility] 2 22:16:02 Radial styloid tenosynovi tis 99636712 Active 2023 ARELY YOUNG MD Attn: Rosy gonzalez,[address] [facility], [place], [address], [facility] - [facility] 4 09:24:31 Tubular adenoma of colon 874126816 Active 202307/15/2023 tubular adenoma polyp in the transverse colon ARELY YOUNG MD Attn: Rosy gonzalez,[address] [place], [address], [facility] 4 14:42:34 Mild intermitte nt asthma 979478883 Active 2023 ARELY YOUNG MD Attn: Rosy gonzalez,[address] [place], [address], [facility] - [facility] 4 10:53:38 Problem Notes None recorded. Procedures Surgical History Date Name Laterality Status Provider Name and Address Organization Details Recorded Time 04/15/19 25 Generic Procedure completed ANJELICA ZAMORA DO Attn: Accounting, [address] [place], [address], [facility] - [facility] 04/20/2024 14:40:20 03/21/20 24 Cholecystectomy completed Dee Ramírez GRACIELAShalini [place] - [facility] 04/15/2024 10:50:39 07/27/19 21 Diabetic Foot Exam completed Denisha Uriarte [place] 08/01/2020 00:33:16 11/30/19 20 Skin Tag Removal completed Cosmo Valverde [place] 11/30/2019 16:42:21 Carpal tunnel surgery completed Vielka Millard [place] 09/27/2023 09:13:16 colonoscopy completed Vielka Millard [place] [facility] 09/27/2023 09:13:23 decompression of ulnar nerve at elbow completed ARELY YOUNG MD Attn: Accounting, [address] , [place], [address], [facility] - [facility] 09/27/2023 09:25:13 Imaging Results Imaging Date Name Status LastModified by Organiz ation Details LastModified Time 03/20/2024 CT, abdomen + pelvis, w/ contrast completed [address] [place], [address], 04/03/2024 09:58:53 Procedure Notes None recorded. Medical Equipment None Reported. Allergies Allergen ID Allergen Name Allergen Category Reaction Reaction Severity Criticality Documentation Date Start Date Code Code System Note Provider Name and Address Organization Details Recorded Time 625104 morphine medicatio n decreased blood pressure severe Not available 11/23/2019 7052 RxNorm Not Available Not Available Not Available 726059 lisinopri l medicatio n cough Not available Not available 11/13/2022 27417 RxNorm Not Available Not Available Not Available Medications Name Sig Start Date Stop Date Status Note LastModified by Organization Details LastModified Time atorvasta tin 40 mg tablet TAKE 1 TABLET BY MOUTH EVERY DAY 09/26 completed Not Available Not Available Not Available metformin 500 mg tablet TAKE 1 TABLET BY MOUTH TWICE A DAY LAST REFILL UNTIL APPOINTM ENT IS MADE active Not Available Not Available No t Available doxycycli ne hyclate 100 mg capsule TAKE 1 CAPSULE BY MOUTH TWICE A DAY FOR 5 DAYS active Not Available Not Available No [...] 3 times a day by oral route. 04/08 completed Not Available Not Available Not Available hydrocodo ne 5 mg-acetam inophen 325 mg tablet Take 1 tablet every 6 hours by oral route. 04/08 completed Not Available Not Available Not Available sucralfat e 1 gram tablet TAKE [...] 3 TIMES A DAY FOR 5 DAYS. 04/08 completed Not Available Not Available Not Available amlodipin e 5 mg tablet TAKE 1 TABLET BY MOUTH EVERY DAY.*NEE DS APPOINTM ENT 09/26 completed dose increase d Not Available Not Available Not Available ciproflox acin 500 mg tablet 04/15 completed Not Available Not Available Not Available omeprazol e 40 mg capsule,d elayed release 09/26 completed Not Available Not Available Not Available tramadol 50 mg tablet TAKE 1 TABLET BY MOUTH EVERY 6 HOURS NEEDED FOR PAIN 04/08 completed Not Available Not Available Not Available amoxicill in 500 mg tablet TAKE [...] PLEASE SEE ATTACHED FOR DETAILED DIRECTIO NS 04/08 completed Not Available Not Available Not Available amitripty line 10 mg tablet TAKE [...] DAY FOR A TOTAL OF 6 DAYS 04/15 completed Not Available Not Available Not Available albuterol sulfate HFA 90 mcg/actua tion aerosol inhaler INHALE 2 PUFFS EVERY 4 HOURS BY INHALATI ON ROUTE. active Not Available Not Available No t Available ondansetr on 4 mg disintegr ating tablet TAKE 1 TABLET BY MOUTH EVERY 6 HOURS. 04/08 completed Not Available Not Available Not Available cefdinir 300 mg capsule TAKE 1 [...] Updated DateTime 3 180.34 cm 43.3 kg/m2 259976. 03 g 86 /min 99 % 99 % 97.4 [degF] 144 mm[Hg] 95 mm[Hg] Al Burrell MA [facility] 3 10:38:30 Date Recorded Systolic blood pressure Diastolic blood pressure Provider Name and Address Organization Details Last Updated DateTime 12/06/2022 138 mm[Hg] 89 mm[Hg] Starla Parham MD Attn: Accounting,[address] [place], [address], [facility] 12/06/2022 11:15:26 Date Recorded Body height Body mass index (BMI) Body weight Body temperature Heart rate Respiratory rate Systolic blood pressure Diastolic blood pressure Provider Name and Address Organization Details Last Updated DateTime 4 180.34 cm 44.2 kg/m2 496785. 78 g 98.3 [degF] 86 /min 20 /min 140 mm[Hg] 80 mm[Hg] Vielka Millard MA [facility] 4 09:10:30 Date Recorded Body height Body mass index (BMI) Body weight Oxygen saturation Oxygen saturation in Arterial blood by Pulse oximetry Heart rate Respiratory rate Body temperature Systolic blood pressure Diastolic blood pressure Provider Name and Address Organization Details Last Updated DateTime 4 180.34 cm 45.6 kg/m2 501857. 75 g 99 % 99 % 80 /min 18 /min 99 [degF] 130 mm[Hg] 80 mm[Hg] Vielka Millard MA [facility] 4 10:17:17 Date Recorded Body height Body mass index (BMI) Body weight Body temperature Heart rate Respiratory rate Oxygen saturation Oxygen saturation in Arterial blood by Pulse oximetry Systolic blood pressure Diastolic blood pressure Provider Name and Address Organization Details Last Updated DateTime 5 180.34 cm 44.9 kg/m2 993475. 14 g 98.3 [degF] 110 /min 18 /min 97 % 97 % 128 mm[Hg] 80 mm[Hg] Vielka Millard MA [facility] 5 11:30:30 Date Recorded Body height Body mass index (BMI) Body weight Heart rate Body temperature Respiratory rate Oxygen saturation Oxygen saturation in Arterial blood by Pulse oximetry Systolic blood pressure Diastolic blood pressure Provider Name and Address Organization Details Last Updated DateTime 5 180.34 cm 45.1 kg/m2 974424. 05 g 108 /min 99.2 [degF] 20 /min 97 % 97 % 143 mm[Hg] 91 mm[Hg] ARIEL Hendrickson [facility] 5 10:54:07 Social History Question Answer Notes LastModified by Organizat ion Details LastModified Time Tobacco Smoking Status Never Smoker Misti Beckford MA [facility] 11/23/2019 09:33:19 What Is Your Level Of Alcohol Consumption? Occasional Information not available 11/23/2019 In The 14 Days Before Symptom Onset, Have You Had Close Contact With A Laboratory-confir med COVID-19 While That Case Was Ill? No Information not available 04/15/2024 In The 14 Days Before Symptom Onset, Have You Had Close Contact With A Person Who Is Under Investigation For COVID-19 While That Person Was Ill? No Information not available 04/15/2024 Have You Been To An Area Known To Be High Risk For COVID-19? No Information not available 04/15/2024 Are You Currently Employed? No Information not available 04/15/2024 Which Illicit Or Recreational Drugs Have You Used? None Information not available 11/23/2019 Do You Or Have You Ever Used E-cigarettes Or Vape? Never Used Electronic Cigarettes Information not available 11/23/2019 What Was The Date Of Your Most Recent Tobacco Screening? 04/15/2024 Information not available 04/15/2024 Do You Use Protection During Sex? Always Information not available 11/23/2019 Are You Sexually Active? Yes Information not available 11/23/2019 Do You Or Have You Ever Used Smokeless Tobacco? Never Used Smokeless Tobacco Information not available 11/23/2019 Do You Use Any Illicit Or Recreational Drugs? No Information not available 12/29/2020 Has Tobacco Cessation Counseling Been Provided? Yes [email or web address] Information not available 09/27/2023 On What Date Was Tobacco Cessation Counseling Provided? 04/22/2024 Information not available 04/15/2024 Do You Or Have You Ever Used [...] completed ARELY YOUNG MD Attn: Accounting,[address] [place], [address], [place] [facility] 03/18/2024 10:52:27 COVID-19, mRNA, LNP-S, PF, 100 mcg/0.5mL dose or 50 mcg/0.25mL dose 1 completed ARELY YOUNG MD Attn: Accounting,[address] [place], [address], [place] [facility] 03/18/2024 10:52:27 Influenza, split virus, quadrivalent, preservative 8 completed ARELY YOUNG MD Attn: Accounting,[address] , [place], [address], [facility] 03/18/2024 10:52:27 Hep A, adult 2 completed ARELY YOUNG MD Attn: Accounting,[address] , [place], [address], [facility] 03/18/2024 10:52:27 Past Encounters Encounter ID Performer Location Encounter Start Date Encounter Closed Date Diagnosis/Indication Diagnosis SNOMED-CT Code Diagnosis ICD10 Code Diagnosis Note [id number] López sommers MD [facility] [address] [facility] [address] [place] [address] 11/23/2019 09:25:40 11/25/2019 12:28:03 Diabetes mellitus 28457712 E11.9 Last A1C:{{less than 7.0% 7-8%* 8-9% grea ter than 9%}} Goal A1C less than:{{7.0 %* 8.0%}} Current Therapy:{{ metformin* sulfonylu joaquin TZD SG LT-2 DDP-4 GLP-1 RA long-ac ting insulin ra pid/short- acting insulin}} {{metformi n sulfonyl urea TZD S GLT-2 DDP- 4 GLP-1 RA long-ac ting insulin ra pid/short- acting insulin}} {{metformi n sulfonyl urea TZD S GLT-2 DDP- 4 GLP-1 RA long-ac ting insulin ra pid/short- acting insulin}} {{metformi n sulfonyl urea TZD S GLT-2 DDP- 4 GLP-1 RA long-ac ting insulin ra pid/short- acting insulin}} Statin:{{y es* no dec lined due to adverse reaction/a llergy dec lined}} MARIELENA/ARB:{{ yes no no due to negative nephropath y screening contraindi cated decl ined due to adverse reaction/a llergy dec lined}} Foot Exam:{{com pleted in the past 12 months-neg ative comp leted in the past 12 months-pos itive comp leted in the past 12 months- result unknown du e*}} Nephropath y Screening: {{complete d in the past 12 months- negative c ompleted in the past 12 months- positive d ue*}} Pneumovax 23:{{due# UTD Declin ed Not given}} Eye Exam:{{com pleted in the last 12 months- negative c ompleted in the last 12 months- positive c ompleted per patient report due - recommende d annual dilated eye exam*}} Patient Education: healthy diet: {{yes# yes no}} exercise: {{yes# yes no}} weight loss: {{yes# yes no}} foot care: {{yes# yes no}} complicati ons of uncontroll ed diabetes: {{yes# yes no}} medication compliance : {{yes# yes no}} Next Visit: {{1 2 3* 4 5 6 7 8 9 10 11 12} } {{week(s) month(s)*} } -start metformin 1000mg BID and atorvastat in 20mg-d/c insulin-BM P, UACR, lipid panel ordered-di scussed aggressive weight loss and increased activity Acute left otitis media 208824822 H66.92 acute on chronicTM bludging with middle ear fluid -augmentin rx sent Multiple skin tags 43191 7009 L91.8 multiple on neck and large pedunculat ed on right shoulder -patient to schedule with procedure clinic [id number] MD Angela Mtz [address] [address] 11/30/2019 13:45:44 11/30/2019 19:41:28 Multiple skin tags 802531963 L91.8 Patient presents to clinic for removal of multiple skin tags. 8 skin tags present; 7 small ones on neck & 1 large one on the right scapula. 8 total skin tags were removed in clinic; anesthesia was provided with Lidocaine w/out epinephrin e or ethyl chloride spray. Hemostasis was achieved via a combinatio n of directly applied pressure & Drysol (aluminum chloride). - Large right scapula skin tag sent to lab for pathologic analysis. [id number] MD Angela Oconnor 3 [facility] [address] [place] [address] 07/26/2020 14:14:14 08/01/2020 11:55:37 Morbid obesity 913670552 E66.01 BMI: 42.6 -Discussed Mediterran reji diet and physical activity Diabetes mellitus 924211 09 E11.9 Type II, chronicLas t A1C:{{less than 7.0% 7-8%* 8-9% grea ter than 9%}}Goal A1C less than:{{7.0 %* 8.0%}}C urrent Therapy:{{ metformin* sulfonylu joaquin TZD SG LT-2 DDP-4 GLP-1 RA long-ac ting insulin ra pid/short- acting insulin}} {{metformi n sulfonyl urea TZD S GLT-2 DDP- 4 GLP-1 RA long-ac ting insulin ra pid/short- acting insulin}} {{metformi n sulfonyl urea TZD S GLT-2 DDP- 4 GLP-1 RA long-ac ting insulin ra pid/short- acting insulin}} {{metformi n sulfonyl urea TZD S GLT-2 DDP- 4 GLP-1 RA long-ac ting insulin ra pid/short- acting insulin}}S tatin:{{ye s* no decl ined due to adverse reaction/a llergy dec lined}}MARIELENA /ARB:{{yes no no due to negative nephropath y screening contraindi cated decl ined due to adverse reaction/a llergy dec lined}}Thomas t Exam:{{com pleted in the past 12 months-neg ative comp leted in the past 12 months-pos itive* com pleted in the past 12 months- result unknown du e}}Nephrop athy Screening: {{complete d in the past 12 months- negative c ompleted in the past 12 months- positive d ue*}}Pneum ovax 23:{{UTD D eclined No t given due# }}Eye Exam:{{com pleted in the last 12 months- negative c ompleted in the last 12 months- positive c ompleted per patient report due - recommende d annual dilated eye exam*}}Pat ient Education: healthy diet: {{yes# yes no}} exercise: {{yes# yes no}} weight loss: {{yes# yes no}} foot care: {{yes# yes no}} complicati ons of uncontroll ed diabetes: {{yes# yes no}} medication compliance : {{yes# yes no}} Next Visit: {{1 2 3* 4 5 6 7 8 9 10 11 12} } {{week(s) month(s)*} } -continue metformin 1000mg BID and atorvastat in 20mg -start lisinopril 5mg -BMP, UACR, lipid panel ordered -informati on for eye exam given to patient Paresthesi a of lower extremity 811505526 R20.2 NO history of recent illness Most likely due to diabetes consider electrolyt e abnormalit ies -BMP and Magnesium ordered -recommned ed to take OTC magnesium Neuropathy 992812081 G62 .9 Most likely due to diabetes abnormal foot exam -gabapenti n ordered -recommend ed patient schedule with podiatry, informatio n given ot patient Chronic low back pain 27 3588886 M54.5 Chronic, NO red flag symptoms Exam remarkable for tight hips and lower paraspinal muscles -referral to physical therapy placed [id number] López MD Angela Nash [address] [address] 11/11/2020 09:41:32 11/14/2020 08:56:38 Cholelithiasis without obstruction 34199076 K80.20 Acute on chronic.-F ollow up scheduled with markie on 11/28/20-Pa in control with small amount of hydrocodon e.-Miralax for constipati on-Work up as below-Stri ct return precaution s for worsening pain or sxs of sepsis Overweight 074681589 E66 .3 Depressive disorder 3548 9007 F32.9 PHQ9=11 likely worse dt ongoing painDenies SI HIRTC following above surgical consultati on [id number] [place] [address] [address] 12/29/2020 11:31:20 12/29/2020 16:16:49 Accident while engaged in work-related activity [id number] X58.XXXA Notes sending medical bills Injury of shoulder region 546844787 S49.91XA Poor strength, especially with external rotation. Concern for rotator cuff and/or pectoral muscle tear by exam. No emergent neurovascu lar compromois e, but likely swelling is causing paresthesi as in arm. Report of no fracture/d islocation , but will need to obtain records.- Continue sling only while at rest, not all the time- NSAIDs OTC, ice- Will need MRI to eval tear, hx of claustroph obia so will give pre-proced ure dose of benzo- Ortho urgently [id number] Chelsie Jenkins MD [facility] [address] [facility] [address] [place] [address] 03/16/2021 15:47:13 03/16/2021 20:47:20 Morbid obesity [id number] E66.01 - encouraged drinking fewer sugary drinks and cutting down on sweets- encouraged more fruits and veggies in diet, as well as exercising for at least 30 min 3-4x/wk Diabetes mellitus [id number] E11.9 Last A1C:{{less than 7.0% 7-8% 8-9% great er than 9% 5.7 03/16/21#} }Goal A1C less than:{{7.0 %* 8.0%}}C urrent Therapy:{{ metformin* sulfonylu joaquin TZD SG LT-2 DDP-4 GLP-1 RA long-ac ting insulin ra pid/short- acting insulin}} {{metformi n sulfonyl urea TZD S GLT-2 DDP- 4 GLP-1 RA long-ac ting insulin ra pid/short- acting insulin}} {{metformi n sulfonyl urea TZD S GLT-2 DDP- 4 GLP-1 RA long-ac ting insulin ra pid/short- acting insulin}} {{metformi n sulfonyl urea TZD S GLT-2 DDP- 4 GLP-1 RA long-ac ting insulin ra pid/short- acting insulin}}S tatin:{{ye s* no decl ined due to adverse reaction/a llergy dec lined}}MARIELENA /ARB:{{yes no no due to negative nephropath y screening contraindi cated decl ined due to adverse reaction/a llergy dec lined no, no diagnosis of HTN#}}Foot Exam:{{com pleted in the past 12 months-neg ative comp leted in the past 12 months-pos itive comp leted in the past 12 months- result unknown du e complete d in the past 12 months-pos itive, due June 2021#}}Nep hropathy Screening: {{complete d in the past 12 months- negative c ompleted in the past 12 months- positive d ue complet ed in the past 12 months- negative, due October 2021#}}Pne umovax 23:{{UTD D eclined No t given due# }}Eye Exam:{{com pleted in the last 12 months- negative c ompleted in the last 12 months- positive c ompleted per patient report due - recommende d annual dilated eye exam*}}Pat ient Education: healthy diet: yesexercis e: yesweight loss: yesfoot care: yescomplic ations of uncontroll ed diabetes: yes, neuropathy medication compliance : yesNext Visit: {{1 2 3 4 5 6* 7 8 9 10 11 12} } {{week(s) month(s)*} } Neuropathy [id number] G62 .9 - notes pins and needles sensation in bilateral feet- says gabapentin has been helping his diabetic neuropathy Right uppe r quadrant pain [id number] R10.11 - pt has been having dull RUQ pain for 1 year and gallbladde r pathology has been ruled out with negative HIDA and hospital w/u (see Dr. Kimberly sommers's note from 11/11/20)- was seen in gen surgery office at the end of Oct who recommende d a GI referral and EGD- pain comes and goes, has not found any triggers, but pain does radiate to middle of abdomen- eating less seems to make the pain better- suspect diabetic gastropare sis as the cause of abdominal pain, given negative gallbladde r and pancreas w/u and no symptoms of GERD- will trial reglan to see if symptoms are relieved- send to GI for further work up [id number] ALLISON TAVAREZ MD [facility] [address] [facility] [address] [place] [address] 05/30/2021 15:17:10 06/02/2021 08:07:43 Acute sinusitis [id number] J01.90 Acute, 3-4 days with fever. Likely viral in etiology and draining into lungs and esophagus leading to gastritis and bronchitis .- Discussed viral course and reassuranc e- Supportive care with tylenol/ib uprofen for fever- Nasal corticoste roid to reduce inflammati on/mucus- RTC precaution s Acute bronchitis [id number] 2 J20.9 Hx of asthma as childhood, chronic bronchitis . No smoking history. No DYLLAN on-hand.- Albuterol to help relax airways- CXR steve if non-improv ing fever, chest tightness to eval PNA- RTC precaution s Nausea and vomiting [id number] R11.2 Likely gastric irritation from mucus drainage. [id number] [facility] [address] [address] 08/07/2021 08:29:38 08/08/2021 11:23:03 COVID-19 [id number] U07.1 Sx began 08/03, positive home COVID test on 08/04/21. No red flags during encounter. Multiple possible sick contacts. Has completed COVID vaccine x 2, no booster. -Encourage d pt to keep using sx relief-ED return precaution s given-Work note given, told pt to continue to quarantine until five days after positive test or fever free for 24 hours if fevers persist-To ld pt to get COVID booster when possible [id number] [facility] [address] [address] 08/10/2021 13:31:42 08/11/2021 13:37:13 COVID-19 [id number] U07.1 F/u COVID+; symptoms began 08/03, positive home COVID test on 08/04. Continues to have improving fever (Tmax 100.9F), SOB, & aching; unchanged dry cough. Multiple possible sick contacts. Has completed COVID vaccine x2, no booster. Needs work note.- Continue Tylenol, Dayquil/Ny quil PRN for symptom relief.- ED return precaution s given.- Work note given, quarantine until fever free for 24 hours; out thru 08/14/21.- Recommend COVID booster when possible.- F/u w/ PCP in 1mo, sooner PRN. [id number] SATNAM CLARK , DO [facility] [address] [facility] [address] [place] [address] 10/27/2021 16:41:35 10/30/2021 13:54:49 Diabetes mellitus 52560974 E11.9 Last A1C:{{less than 7.0% 7-8% 8-9% great er than 9% 5.6 (10/27/21)# }}Goal A1C less than:{{7.0 %* 8.0%}}C urrent Therapy:{{ metformin* sulfonylu joaquin TZD SG LT-2 DDP-4 GLP-1 RA long-ac ting insulin ra pid/short- acting insulin}} {{metformi n sulfonyl urea TZD S GLT-2 DDP- 4 GLP-1 RA long-ac ting insulin ra pid/short- acting insulin}} {{metformi n sulfonyl urea TZD S GLT-2 DDP- 4 GLP-1 RA long-ac ting insulin ra pid/short- acting insulin}} {{metformi n sulfonyl urea TZD S GLT-2 DDP- 4 GLP-1 RA long-ac ting insulin ra pid/short- acting insulin}}S tatin:{{ye s* no decl ined due to adverse reaction/a llergy dec lined}}MARIELENA /ARB:{{yes * no no due to negative nephropath y screening contraindi cated decl ined due to adverse reaction/a llergy dec lined}}Thomas t Exam:{{com pleted in the past 12 months-neg ative comp leted in the past 12 months-pos itive comp leted in the past 12 months- result unknown du e complete d in the past 12 months-neg ative, due Oct 2021#}}Nep hropathy Screening: {{complete d in the past 12 months- negative c ompleted in the past 12 months- positive d ue complet ed in the past 12 months- negative, due Oct 2021#}}Pne umovax 23:{{UTD D eclined No t given due# }}Eye Exam:{{com pleted in the last 12 months- negative c ompleted in the last 12 months- positive c ompleted per patient report due - recommende d annual dilated eye exam*}}Pat ient Education: healthy diet: yesexercis e: yesweight loss: yesfoot care: yescomplic ations of uncontroll ed diabetes: yesmedicat ion compliance : yesNext Visit: {{1 2 3 4 5 6* 7 8 9 10 11 12} } {{week(s) month(s)*} }- continue metformin 1000 BID- increase to lipitor 40 for high intensity dosage Hypertensive disorder 38 313028 I10 BP Goal: {{Less than 140/90* Le ss than 150/90}}BP Controlled : {{yes no*} }Healthy Weight: {{4'10= 91-118 lbs 4'11= 94-123 lbs 5'= 97-127 lbs 5'1= 100-131 lbs 5'2= 104-135 5' 3= 107-140 lbs 5'4= 110-144 lbs 5'5= 115-149 lbs 5'6= 118-154 lbs 5'7= 121-158 lbs 5'8= 125-163 lbs 5'9= 128-168 lbs 5'10= 132-173 lbs 5'11= 136-178 lbs* 6'= 140-183 lbs 6'1= 144-188 lbs 6'2= 148-193 lbs 6'3= 152-199 lbs 6'4= 156-204 lbs}}Discu ssed: Low sodium balanced diet, moderate exercise at least 3-4 times per week for an average of 40 minutes, limiting alcohol to 2 drinks per day (M), and smoking cessation if currently smoking.Ne xt Visit: {{1* 2 3 4 5 6 7 8 9 10 11 12} }{{week(s) month(s)* }}- start lisinopril 10 and amlodipine 5, per JNC8 of 20/10 above goal- check labs as is new diagnosis- will need EKG at next visit to establish baseline Obstructiv e sleep apnea syndrome [id number] G47.33 - previously diagnosed, never received CPAP- will refer to pul for CPAP Obesity 958395185 E66.9 - BMI >35- encouraged drinking fewer sugary drinks and cutting down on sweets- encouraged more fruits and veggies in diet, as well as exercising for at least 30 min 3-4x/wk- GI told him he would be a good candidate for bariatric surgery, will refer there Inattention 56196738 R41 .840 - concern for ADHD with inattentio n- will administer IRIS-7 and PHQ-9 at next visit to r/o IRIS and MDD before sending to psych Perforatio n of tympanic membrane 03765097 H72.02 - left ear was impacted with cerumen and irrigation was started- pt complained of pain and popping in his ear so irrigation was stopped- upon inspection , TM ruptured with only a small crescent of TM along right lower border present- will send to ENT for possible surgical repair if does not heal spontaneou sly [id number] Jonnathan Anna MD [facility] [address] [facility] [address] [place] [address] 11/13/2022 15:46:36 11/19/2022 15:52:55 Diabetes mellitus 44261840 E11.9 Last A1C:{{less than 7.0% 7-8% 8-9% great er than 9% 5.9 (11/13/22)# }}Goal A1C less than:{{7.0 % 8.0%*}}C urrent Therapy:{{ metformin* sulfonylu joaquin TZD SG LT-2 DDP-4 GLP-1 RA long-ac ting insulin ra pid/short- acting insulin}} {{metformi n sulfonyl urea TZD S GLT-2 DDP- 4 GLP-1 RA long-ac ting insulin ra pid/short- acting insulin}} {{metformi n sulfonyl urea TZD S GLT-2 DDP- 4 GLP-1 RA long-ac ting insulin ra pid/short- acting insulin}} {{metformi n sulfonyl urea TZD S GLT-2 DDP- 4 GLP-1 RA long-ac ting insulin ra pid/short- acting insulin}}S tatin:{{ye s* no decl ined due to adverse reaction/a llergy dec lined}}MARIELENA /ARB:{{yes no no due to negative nephropath y screening contraindi cated decl ined due to adverse reaction/a llergy* de clined}}Fo ot Exam:{{com pleted in the past 12 months-neg ative* com pleted in the past 12 months-pos itive comp leted in the past 12 months- result unknown du e}}Nephrop athy Screening: {{complete d in the past 12 months- negative c ompleted in the past 12 months- positive d ue*}}Pneum ovax 23:{{UTD D eclined No t given due# }}Eye Exam:{{com pleted in the last 12 months- negative c ompleted in the last 12 months- positive c ompleted per patient report due - recommende d annual dilated eye exam*}}Nex t Visit: {{1 2 3* 4 5 6 7 8 9 10 11 12} } {{week(s) month(s)*} } Hypertensive disorder 38 644480 I10 BP Goal: {{Less than 140/90* Le ss than 150/90}}BP Controlled : {{yes* no} }Healthy Weight: {{4'10= 91-118 lbs 4'11= 94-123 lbs 5'= 97-127 lbs 5'1= 100-131 lbs 5'2= 104-135 5' 3= 107-140 lbs 5'4= 110-144 lbs 5'5= 115-149 lbs 5'6= 118-154 lbs 5'7= 121-158 lbs 5'8= 125-163 lbs 5'9= 128-168 lbs 5'10= 132-173 lbs 5'11= 136-178 lbs* 6'= 140-183 lbs 6'1= 144-188 lbs 6'2= 148-193 lbs 6'3= 152-199 lbs 6'4= 156-204 lbs}}Discu ssed: Low sodium balanced diet, moderate exercise at least 3-4 times per week for an average of 40 minutes, limiting alcohol to 2 drinks per day and smoking cessation if currently smoking.Ne xt Visit: {{1 2 3* 4 5 6 7 8 9 10 11 12} }{{week(s) month(s)* }}- consider changing to lisinopril 10 for renal benefit in DM2- due for labs Hyperlipidemia 09049828 E78.5 - needs refills Morbid obesity 705245920 E66.01 - encouraged drinking fewer sugary drinks and cutting down on sweets- encouraged more fruits and veggies in diet, as well as exercising for at least 30 min 3-4x/wk Depressive disorder 3838 9007 F32.A - PHQ9 = 11- denies HI/SI- pt declines wanting to start antidepres shivani or therapy, prefers watchful waiting [id number] DO Kwabena CAGE [address] [facility] [address] [place] [address] 12/06/2022 10:14:20 12/10/2022 14:09:24 Nausea 612090728 R11.0 - pt with chronic nausea without red flag symptoms of weight loss, bowel habit changes, hematemesi s, hematochez ia, night sweats- endorses using PPI x6 weeks with minimal relief- suspect GERD as leading cause, but cannot r/o structural causes such as hiatal hernia, mass or h pylori- will send for h pylori stool test- refer to GI for further work up- may have zofran for symptomati c relief Tenosynovi tis of left radial styloid [id number] M65.4 - pt with left Dequervain 's tenosynovi tis, currently wearing wrist brace- encouraged to continue using brace and schedule NSAID use for 7d- will consider injection if pain persists after 3-4 weeks of conservati ve therapy Morbid obesity 896876420 E66.01 - did not discuss in detail at this visit [id number] MD Shyam BUNCH [address] IM [address] [facility] [address] [place] [address] 09/27/2023 08:54:48 10/08/2023 12:43:10 Morbid obesity 263779998 E66.01 Healthy lifestyle encouraged including regular exercise of at least 150min per week, diet rich in plant based foods and low in added sugars, processed carbohydra sarath, and high salt foods. Pain of ear 497985833 H9 2.09 Likely eustachian tube dysfunctio n due to sinus congestion . Discussed using flonase daily for at least the next couple of weeks as well as zyrtec. Reported this has helped in the past and he does struggle with allergy symptoms from time to time. Discussed that flonase and zyrtec combo could be used throughout the year and started during seasons with most symptoms if desired. Gastroesop hageal reflux disease without esophagitis [id number] K21.9 Has been following with Dr. Matt for intermitte nt abdominal pain. Was being evaluated for IBS vs biliary dyskinesia . Had ordered HIDA scan but was unable to schedule at [place] . Will order at [facility]. Had known esophagiti s on EGD and is taking amitripyli ne and omeprazole . Type 2 reji betes mellitus 11822296 E11.9 Diagnosed in 2019. Initially was on insulin then changed diet and is now only on metformin 1000 mg BID. Labs done on 09/16 with normal CMP and normal creatinine . Essential hypertension 07565200 I10 BP elevated at 140/80. Will increase amlodipine to 10 mg. Will take BP 1-2 times weekly and keep log. Follow up in 1 month. Lateral ep icondylitis of right humerus [id number] 57559 M77.11 Was given steroid injection 08/2023 by plastics. Following with occupation al therapy. Pain in the right elbow likely lateral epicondyli tis. Given up to date handout on helpful hints and education. [id number] MD Shyam BUNCH 14 IM [address] [facility] [address] [place] [address] 03/18/2024 10:04:46 03/27/2024 11:36:21 Mild intermittent asthma 658853464 J45.20 Needs refill for albuterol. No wheezing noted on exam today. Upper resp iratory infection 67147288 J06.9 5 day hx of cough, congestion , diarrhea likely viralWill give zofran for nausea and benzonatat e for cough.Tyle nol and ibuprofen for chest wall pain.Flu/C OVID negativeWo rk note given.Will call for fever, worsening symptoms, uncontroll ed vomiting, or if symptoms persist past this week. [id number] MD Shyam Chacon 14 IM [address] [facility] [place] [address] 04/08/2024 11:17:24 04/10/2024 15:35:12 Morbid obesity 787938554 E66.01 Healthy lifestyle encouraged including regular exercise of at least 150min per week, diet rich in plant based foods and low in added sugars, processed carbohydra sarath, and high salt foods. Encouraged protein intake mostly with chicken and white fish and limited red meat. Community acquired pneumonia 067542052 J18.9 Given tachycardi a, worsening SOB and productive cough, will treat with 5 days of doxycyclin e for CAPReturn and ED precaution s discussedI nstructed to continue using incentive spirometry as much as possible Mild inter mittent asthma 701096589 J45.20 Hx of asthmaNeed s refill on albuterol inhalerIns tructed to use inhaler every 4 hours for the next 2-3 days and as neededCan back off when SOB improvesRe turn and ED precaution s discussed Meralgia p aresthetica of left leg [id number] 80539 G57.12 physical exam suggestive of meralgia parestheti ca likely from being in a hospital bed for long period of timeDiscus sed conservati ve management including wearing lose fitting clothesMig ht benefit from OMT, will schedule in OMT clinic [id number] Merlene Howe 14 IM [address] [facility] [address] [place] [address] 04/15/2024 10:38:23 04/23/2024 10:57:48 Community acquired pneumonia 422055443 J18.9 Given tachycardi a, worsening SOB and productive cough, treated with 5 days of doxycyclin e for CAP at last visitInstr ucted to continue using incentive spirometry as much as possibleFe jamel a little betterCont inue to monitor improvemen tFollow up in 1 month Mild inter mittent asthma 600006897 J45.20 Hx of asthmaprn albuterol inhalerCon tinue ICSReturn and ED precaution s discussed Meralgia p aresthetica of left leg [id number] 87089 G57.12 physical exam suggestive of meralgia parestheti ca likely from being in a hospital bed for long period of timeDiscus sed conservati ve management including wearing lose fitting clothesPer formed OMT todayGiven home exercises and anticipato ry guidance 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 Resolved on recheckGiv en home exercises and anticipato ry guidance Health Concerns Section Related Observation LastModified by Organization Detai ls LastModified Time None Recorded Concern Status LastModified by Organization Details LastModified Time None Recorded Advance Directives Directive None Recorded Payers Encounter Date Sequence Insurance Name Policy Number Policy Contreras Covered Member ID Contreras Member ID Guarantor Name 12/06/2022 2 [facility] (MEDICAID HMO) [id number] Oscar Rehman [id number] Oscar Rehman 12/06/2022 1 [place] [id number] 1 Oscar Rehman [id number] Oscar Rehman 09/27/2023 1 [place] [id number] 1 Oscar Rehman [id number] Oscar Rehman 03/18/2024 1 [place] [id number] 1 Oscar Rehman [id number] Oscar Rehman 04/08/2024 1 [place] [id number] 1 Oscar Rehman [id number] Oscar Rehman 04/15/2024 1 [place] [id number] 1 Oscar Rehman [id number] Oscar Rehman Notes Date Note Type Note Provider Name and Address Organization Details Recorded Time 12/06/2022 text/html Pt presents as [facility] f/u for left wrist pain. Was seen in and prescribed prednisone, ibuprofen, and gabapentin. States the pain came on gradually without injury or trauma to wrist. Pt denies CP/SOB, F/C, LEACH/dizziness, abdominal pain, dysuria, leg pain or swelling. KATHRINE CROWLEY DO Attn: Accounting[address] [place], [address], [facility] 12/15/2022 11:00:05 09/27/2023 text/html Oscar is a 37-year-old male who presents to the clinic to establish care. Was previously seen in [place] by PCP and GI. 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 Left ear has been causing pain for the last approx 2 weeks. No drainage. No fever, chills, some nasal congestion. No cough. T2DMIs compliant with medications. No hx of kidney problems, neuropathy. HTNIs compliant with medications. Does not take BP at home. No chest pain or SOB. Munirozzie elbowHas been seeing occupational therapy following right ulnar and medial nerve decompression who have been giving exercises for arm as well. Plastics gave injection 08/2023 but stated they do not treat this and recommended referral to orthopedic surgery. De Quervain'sReports pain on the left wrist. Is seeing plastic surgery. Planning surgery. Is wearing splint daily. DUNG GOLD MD Attn: Accounting[address] [place], [address], [place] [facility] 10/07/2023 09:48:54 03/18/2024 text/html Oscar is a 38 y /o M who [...] and congestion medication. DUNG GOLD MD Attn: Accounting[address] [place], [address], [place] [facility] 03/26/2024 22:11:39 04/08/2024 text/html 38 yo M presents to clinic after cholecystectomy 3 weeks ago at [facility] complicated by infection and pneumonia. He was discharged initially and a few days later he was worse at home. He went to the ED and was in the ICU for a few days needing oxygen. He was discharged with 5 days course of cipro and a steroid taper. Still has SOB and intermittent productive cough. Last dose of antibiotic and steroid is tonight. Feels like he is actually getting worse the last few daysHad episode of vomiting this morning. Burning on side of thigh on the left while in the hospital. Blood clot was ruled out. Not having issues walking, no weakness or numbness. Sees surgery for follow up on Saturday. Katie Bal MD Attn: Accounting, [address] [place], [address], [place] [facility] 04/10/2024 12:28:51 04/15/2024 text/html 38 yo M presents to clinic for follow up and OMT Had cholecystectomy 1 month ago at [facility] complicated by infection and pneumonia. He was discharged initially and a few days later he was worse at home. He went to the ED and was in the ICU for a few days needing oxygen. He was discharged with 5 days course of cipro and a steroid taper. SOB and cough are better. He is back to work but taking it easy. He is on the last day of his 5 day course of doxy which was given last time due to concerns for CAP. Burning on side of thigh on the left while in the hospital. Not having issues walking, no weakness or numbness. Sees surgery for follow up tomorrow. Merlene carbajal, [place] [facility] 04/21/2024 13:47:13
--- OUTSIDE RECORDS SUMMARY | 2024-05-09 12:41 | XMS_ITS | Encounter Summary ---
Author Organization [facility] Health Address [address] [address] Care Team Providers Care Other Sales Support Worker Name Role Phone ParksSara TOLL LINE INSPECTOR-DIESEL PILE DRIVER OPERATOR Primary Care Provider Oscar Siegel MD Primary Care Provider [phone] Dominguez Mena DO Primary Care Provider [phone] Oscar Siegel MD Primary Care Provider [phone] Encounter Details Date Type Department Care Team (Late st Contact Info) Description 12/01/2019 Lab Requisition [facility] [address] [place] [address] Aimee Hays MD [address] [place] [id number] Social History Tobacco Use Types Packs/Day [...] 12:00 AM CDT) Case Report Dermatopathology Report Case: [id number] Authorizing Provider: Aimee Hays MD Collected: 11/30/2019 12:00 AM Ordering Location: [facility] Received: 12/01/2019 09:32 AM Pathologist: Nelly Espinal MD Specimen: Skin, right scapula 0 2:34 PM CDT DERMATOPATHOLOGY LABORATORY Final Diagnosis Specimen A. SKIN, right scapula: ACROCHORDON (SOFT FIBROMA, SKIN TAG) (L91.8) 0 2:34 PM CDT DERMATOPATHOLOGY LABORATORY Clinical History Benign skin tag. 0 2:34 PM CDT DERMATOPATHOLOGY LABORATORY Gross Description Specimen A: Received is one formalin filled container labeled with the patient's name and designated right scapula. The specimen consists of a shave biopsy measuring [id number], bisected. Jar 0. 0 2:34 PM CDT [...] characteristic determined by the Dermatopathology Laboratory at [facility], directed by Dr. Jacklyn Jo. These tests need not be, and therefore are not, approved by the [place] Food and Drug Administration. The tests are used for clinical purposes. Billing Codes Specimen Charges Stain Charges 12401 1 0 2:34 PM CDT DERMATOPATHOLOGY LABORATORY Embedded Images 0 2:34 PM CDT DERMATOPATHOLOGY LABORATORY Pathology/Cytolog y TISSUE SPECIMEN FROM SKIN / Unknown 11/30/2019 12/01/2019 9:32 AM CDT Aimee Hays MD LAB - PATHOLOGY/ CYTOLOGY ORDERABLES DERMATOPATHOLOGY LABORATORY [facility] - Department of Dermatology [facility] [address] [place] [address], [address] [place] [address], [facility] [phone] documented in this encounter Visit Diagnoses Not on filedocumented in this encounter Care Teams Other Sales Support Worker Relationship Specialty Start Date End Date Sara Parks, TOLL LINE INSPECTOR-DIESEL PILE DRIVER OPERATOR [address] [place] [address] PCP - General 10/28/17 04/25/20 Oscar Siegel MD [address] [place] [address] [address] [place] [address] PCP - General 04/26/20 06/15/20 Dominguez Mena DO [address] [address] PCP - General Family Medicine 06/16/20 06/29/20 Oscar Siegel MD [address] [place] [address] [address] [place] [address] PCP - General 06/30/20 11/07/22 documented as of this encounter
--- OUTSIDE RECORDS SUMMARY | 2024-05-09 12:41 | XMS_ITS | Clinical Summary ---
Author Organization [facility] Address [address] [place] [phone] Phone Care Team Providers Care Broadcast Engineer Name Role Phone Provider, None Primary Care [...] on file Legal Sex Male 11:59 AM EQUITY MANAGER Gender Identity Not on file Sexual Orientation Not on file Last Filed Vital Signs Vital Sign Reading Time Taken Comments Blood Pressure 130/82 05/06/2023 12:20 PM EQUITY MANAGER Pulse 103 05/06/2023 12:20 PM EQUITY MANAGER Temperature 36.5 C (97.7 F) 05/06/2023 12:20 PM EQUITY MANAGER Respiratory Rate 20 05/06/2023 12:20 PM EQUITY MANAGER Oxygen Saturation 98% 05/06/2023 12:20 PM EQUITY MANAGER Inhaled Oxygen Concentration - - Weight 138.3 kg (305 lb) 05/06/2023 12:20 PM EQUITY MANAGER Height 180.3 cm (5' 11 ) 05/06/2023 12:20 PM EQUITY MANAGER Body Mass Index 42.54 05/06/2023 12:20 PM EQUITY MANAGER Plan of Treatment Health Maintenance Due Date Last Done Comments Hepatitis C Virus (HCV) Screening 1987 TdaP Immunization 1987 Hepatitis B Immunization (1 of 3 - 19+ 3-dose series) 10/21/2006 Influenza Immunization (#1) 2023 01/30/2018 SARS-COV-2 Immunization ( season) 2023 Respiratory Syncytial Virus (RSV) Immunization (Adult) (1 - 1-dose 75+ series) 10/21/2062 Meningococcal Immunization (ACWY) Aged Out No longer eligible based on patient's age to complete this topic Pneumococcal Immunization Combined Aged Out No longer eligible based on patient's age to complete this topic Rotavirus Immunization Aged Out No lo nger eligible based on patient's age to complete this topic [place] [address] [address] MEDICAID [place] Care Teams Broadcast Engineer Relationship Specialty Start Date End Date Provider, None [place] PCP - General 05/06/23
--- OUTSIDE RECORDS SUMMARY | 2024-05-09 12:41 | XMS_ITS | Patient Health Summary ---
Author Organization [facility] Address [address] [place] [address] Care Team Providers Care Tie Up Worker Name Role Phone Unavailable Primary Care Provider Unavailabl e Note from [facility],non-owned Affiliates and Associated Physician Practices is amultiple site organization consisting of ambulatory clinics and hospital sitesin [place], [place], [place] and [place]. This disclosure is being madepursuant to the Care Everywhere program and may not contain all information available regarding this patient. Last updated 17.[facility] Allergies * Morphine(Cardiac Injury) -High Criticality Medications [...] 107 10/28/2017 11:00 AM CDT Temperature 36.9 C (98.5 F) 10/28/2017 11:00 AM CDT Respiratory Rate - - Oxygen Saturation - - Inhaled Oxygen Concentration - - Weight 142.9 kg (315 lb) 10/28/2017 11:00 AM CDT Height 180.3 cm (5' 11 ) 10/28/2017 11:00 AM CDT Body Mass Index 43.93 10/28/2017 11:00 AM CDT Procedures * DERMATOPATHOLOGY(Performed 11/30/2019) * WI DRAIN/INJECT LARGE JOINT/BURSA(Performed 10/31/2017) Performed for Acute pain of both shoulders * WI DRAIN/INJECT LARGE JOINT/BURSA(Performed 10/31/2017) Performed for Acute [...] AM CDT) Case Report Dermatopathology Report Case: [id number] Authorizing Provider: Aimee Hays MD Collected: 11/30/2019 12:00 AM Ordering Location: [facility] Received: 12/01/2019 09:32 AM Pathologist: [...] specimen consists of a shave biopsy measuring [id number], bisected. Jar 0. 0 2:34 PM CDT [...] characteristic determined by the Dermatopathology Laboratory at [facility], directed by Dr. Jacklyn Jo. These tests need not be, and therefore are not, approved by the [place] Food and Drug Administration. The tests are used for clinical purposes. Billing Codes Specimen Charges Stain Charges 00771 1 0 2:34 PM CDT DERMATOPATHOLOGY LABORATORY Embedded Images 0 2:34 PM CDT DERMATOPATHOLOGY LABORATORY Pathology/Cytolog y TISSUE SPECIMEN FROM SKIN / Unknown 11/30/2019 12/01/2019 9:32 AM CDT Aimee Hays MD LAB - PATHOLOGY/ CYTOLOGY ORDERABLES DERMATOPATHOLOGY LABORATORY [facility] - Department of Dermatology [facility] [address] [facility], [address] [phone] * WI DRAIN/INJECT LARGE JOINT/BURSA (10/31/2017 11:23 AM CDT) Narrative Zeb Blanton III, MD - 10/31/2017 11:23 AM CDT Zeb Blanton III, MD 10/31/2017 11:23 AM After discussion of risks, [...] III, MD PROCEDURE/MIN OR SURGICAL ORDERABLES * WI DRAIN/INJECT LARGE JOINT/BURSA (10/31/2017 11:23 AM CDT) Narrative Zeb Blanton III, MD - 10/31/2017 11:23 AM CDT Zeb Blanton III, MD 10/31/2017 11:23 AM After discussion of risks, benefits, and alternatives, the patient agreed to corticosteroid injection. The area was marked and cleaned in the usual sterile fashion using Betadine and alcohol. Ethyl chloride for topical anesthesia. The injection was performed at the right shoulder subacromial space using 1% plain Lidocaine and 40 mg of Kenalog. This was well tolerated. Zeb Blatnon III, MD PROCEDURE/MIN OR SURGICAL ORDERABLES * XR SHOULDER 2+ VW LEFT [IMG83] (10/23/2017 10:20 AM CDT) Anatomical Region Laterality Modality Upper Extremity Radiographic Britt ging 10/23/2017 10:4 4 AM CDT Impressions 10/23/2017 10:45 AM CDT IMPRESSION: Normal. This report was electronically signed by SVEEN CLEMONS MD on 10/23/2017 10:45 AM . Narrative 10/23/2017 10:45 [...] acromioclavicular or glenohumeral joint. Procedure Note Seven Clemons MD - 10/23/2017 Exam: 1. XR SHOULDER [...] This report was electronically signed by SEVEN CLEMONS MD on10/23/2017 10:45 AM . Maurice Ba MD DIAGNOSTIC IMAGING O RDERABLES * XR SHOULDER 2+ VW RIGHT [IMG84] (10/23/2017 10:20 AM CDT) Anatomical Region Laterality Modality Upper Extremity Radiographic Britt ging 10/23/2017 10:4 4 AM CDT Impressions 10/23/2017 10:45 AM CDT IMPRESSION: Normal. This report was electronically signed by SEVEN CLEMONS MD on 10/23/2017 10:45 AM . Narrative 10/23/2017 10:45 [...] acromioclavicular or glenohumeral joint. Procedure Note Seven Clemons MD - 10/23/2017 Exam: 1. XR SHOULDER [...] This report was electronically signed by SEVEN CLEMONS MD on10/23/2017 10:45 AM . Maurice Ba MD DIAGNOSTIC IMAGING O RDERABLES * XR SPINE ENTIRE 2 OR 3VW (10/23/2017 8:47 AM CDT) Anatomical Region Laterality Modality Radiographic Britt ging 10/23/2017 8:50 AM CDT Impressions 10/23/2017 9:11 AM CDT IMPRESSION: No significant scoliosis. Report dictated by Jacklyn Tello MD (finance vice president). I, Dr. SEVEN CLEMONS MD have personally reviewed and interpreted this examination/study. This report was electronically signed by SEVEN CLEMONS MD on 10/23/2017 9:11 AM . Narrative 10/23/2017 9:11 [...] in their respective acetabula. Procedure Note Seven Clemons MD - 10/23/2017 EXAMINATION: XR SPINE ENTIRE [...] scoliosis. Report dictated by Jacklyn Tello MD (finance vice president). I, Dr. SEVEN CLEMONS MD have personally reviewed and interpreted this examination/study. This report was electronically signed by SEVEN CLEMONS MD on10/23/2017 9:11 AM . Maurice Ba MD DIAGNOSTIC IMAGING O RDERABLES * PATH CONSULT REFER SPECIMEN (03/01/2004 1:20 PM MESSAGE BROKER DEVELOPER) Result CASE NUMBER [id number] [facility] PATH REPORT Comment: ORDERING PHYSICIAN FEDERICO RAY SPECIMEN TYPE Muscle Biopsy-Right bicep CLINICAL HISTORY The patient is a 18-year-old boy with a history of muscle weakness and tenderness that is diffuse and of two years duration. The family history is negative for neuromuscular disease. Physical exam is normal. Nerve conduction studies are normal. Serum muscle enzyme levels are normal. 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 GROSS DESCRIPTION The specimen is received fresh, wrapped in gauze, sutured at each end, and normal in color. The specimen measures 0.8 x 1.2 x 0.4. (lw) *TECHNIQUE The following stains were performed on 6 micron thick cryostat sections H/E, Trichrome, PAS, PAS-Diastase, Oil Red O, ATPase pH 4.3, ATPase pH 4.6, ATPase pH 9.4 and NADH. MICROSCOPIC DESCRIPTION There is mild variation in myofiber size and fiber diameters range from 40 to 55 microns. The fibers are generally polygonal. Rare degenerating basophilic fibers are seen. Fiber splitting is not present. Only occasional internal nuclei are seen. There is no significant increase in either endomysial or perifascicular connective tissue. Blood vessels are unremarkable, and there is no inflammatory cellular response. With the trichrome stain, no sarcoplasmic inclusions are seen. Histochemically, there is good differentiation of fiber types and subtypes. Type grouping is not seen. The small fibers appear to be predominantly of type IIB. With the oxidative enzyme stain, no significant architectural abnormalities are noted. There is no significant increase in glycogen or lipid content. (DED/lw) DIAGNOSIS DIAGNOSIS RIGHT BICEPS, MUSCLE BIOPSY - NO DIAGNOSTIC PATHOLOGIC CHANGE (SEE MICROSCOPIC DESCRIPTION AND NOTE). NOTE A morphometric study will be done and reported separately. Additional enzymatic stains will be performed and reported later. Electron microscopy is pending. The performance characteristics of all immunohistochemical and indirect immunofluorescence stains (if any) cited in this report were determined by the Histopathology Laboratory of [facility] (immunohistochemistry) or the Histology Laboratory of [facility] (indirect immunofluorescence) in compliance with CLIA `88 regulations. Some of these tests rely on the use of analyte-specific reagents and are subject to specific labeling requirements by the FDA. Such tests were developed by the Histopathology Laboratory of [facility] or the Histology Laboratory of [facility] and have not been cleared or approved by the FDA. The FDA has determined that such clearance or approval is not necessary. These tests are used for clinical purposes and should not be regarded as investigational or for research. This case has been personally reviewed and interpreted by the attending (teaching) pathologist. *ELECTRON MICROSCOPY There is a normal periodicity to the AI and Z bands. Focal contraction artifact is present. A mild increase in lipid content is noted. A mild increase in glycogen content is also present. Mitochondria are not increased in number or size. Mitochondrial internal architecture is normal. (DED/pg) *EM INTERPRETATION RIGHT BICEPS, MUSCLE BIOPSY - NO DIAGNOSTIC PATHOLOGIC CHANGE. *MORPHOMETRY STUDY A morphometric study was performed. The mean diameter of type I fibers is 52 microns. The mean diameter of type II fibers is 60 microns. This difference in myofiber size diameter does not suggest a diagnosis of fiber type disproportion. *ADDENDUM 1 The following histochemical stains were performed adenylate deaminase, cytochrome oxidase, phosphofructokinase, and myophosphorylase. Enzyme activity is present with all these stains. (DED/pg) Dividend Deposit Entry Clerk Ho Valera PATHOLOGIST Teresa Amanda M.D. ELECTRONICALLY TERESA STYLES MISCELLANEOUS SAMPLES / Unknown 03/01/2004 1:20 PM MESSAGE BROKER DEVELOPER 03/01/2004 1:21 PM MESSAGE BROKER DEVELOPER Historical Provider LAB - PATHOLOGY/C YTOLOGY ORDERABLES [facility] PATH REPORT * GROSS + MICRO EXAM (03/29/2003 10:10 AM MESSAGE BROKER DEVELOPER) Result CASE NUMBER [id number] [facility] PATH REPORT Comment: ORDERING PHYSICIAN NAOMI KHAN SPECIMEN TYPE Muscle Biopsy-Quadriceps CLINICAL HISTORY The patient is a 17-year-old boy with GERD, two year history of myalgias of the back, upper and lower extremities, pain is constant it occurs both at rest at with movement. The patient has elevated CPK and Aldolase. The clinical diagnosis is rule out mitochondrial myopathy. GROSS DESCRIPTION Submitted fresh at room temperature, wrapped in moistened gauze and sutured to a tongue depressor, with adequate orientation, is a 2.3 x 1.3 x 0.7 cm portion of red-brown skeletal muscle. The specimen is submitted in toto. (CAV/akn) MICROSCOPIC DESCRIPTION 1 H/E, 1 Trichrome, 1 PAS, 1 PAS Diastase, 1 Oil Red O, 1 ATPase pH 4.3, 1 ATPase pH 4.6, 1 ATPase pH 9.4, 1 NADH Sections show an adequate, well oriented biopsy of skeletal muscle with mild freeze artifact. There is no increase in endomysial or perimysial connective tissue or inflammatory infiltrate. Muscle fiber size is mildly variable with occasional slightly atrophic fibers scattered throughout the biopsy. There is no increase in muscle fiber lipid, and ragged red fibers are not identified. Histochemistry to demonstrate myosin ATPase shows no type grouping. The predominant fiber type is type II. There is a tendency of the type II fibers to be smaller than the type I fibers. This change will be investigated further with a morphometric evaluation of the biopsy. Myofibrillar architecture shows no significant alteration. (CAV/akn) DIAGNOSIS DIAGNOSIS SKELETAL MUSCLE, LEFT QUADRICEPS - MILD ALTERATIONS, SEE COMMENT AND DESCRIPTION. COMMENT This muscle biopsy shows mild alterations that do not suggest a specific diagnosis. The biopsy will be evaluated further with special histochemistries and also with electron microscopy, and the results of these special studies will be issued as addendum reports. The performance characteristics of all immunohistochemical and indirect immunofluorescence stains (if any) cited in this report were determined by the Histopathology Laboratory of [facility] (immunohistochemistry) or the Histology Laboratory of [facility] (indirect immunofluorescence) in compliance with CLIA `88 regulations. Some of these tests rely on the use of analyte-specific reagents and are subject to specific labeling requirements by the FDA. Such tests were developed by the Histopathology Laboratory of [facility] or the Histology Laboratory of [facility] and have not been cleared or approved by the FDA. The FDA has determined that such clearance or approval is not necessary. These tests are used for clinical purposes and should not be regarded as investigational or for research. This case has been personally reviewed and interpreted by the attending (teaching) pathologist. *ELECTRON MICROSCOPY ([id number]) Ultrastructural evaluation of the muscle biopsy shows muscle cells covered by a single layer of lamina densa. The surfaces are slightly undulating. I, A, and Z bands are generally normally aligned. There is no overall increase in the number of mitochondria. Mitochondria are not abnormally shaped or enlarged. There are rare intramitochondrial crystalline inclusions identified. Cristae are not abnormally oriented. A single filamentous body and a single tubular aggregate are identified in the subsarcolemmal location. (CAV/akn) *EM INTERPRETATION COMMENT Ultrastructural evaluation of this muscle biopsy shows very rare crystalline inclusions within the mitochondrial matrix. This finding may indicate a mitochondrial abnormality. Additional testing of the patient's biopsy for mitochondrial DNA mutations or mitochondrial enzyme analysis may be useful in the further evaluation of this patient and can be performed if clinically indicated and requested. Also seen is a subsarcolemmal tubular aggregate. Tubular aggregates have been observed in several neuromuscular disorders and are occasionally seen in biopsies from normal individuals. *MORPHOMETRY STUDY Morphometric evaluation of this muscle biopsy shows the following findings Fiber Type Number Mean Fiber Diameter (microns) Type I fibers 33 49 Type IIA fibers 99 38 COMMENT Morphometric evaluation of this muscle biopsy shows a slight tendency to hypotrophy of type II fibers. This is a nonspecific change that may be seen in a number of settings including disuse, myasthenia polymyalgia, vasculitis, osteomalacia, alcoholism, rheumatoid arthritis, hypothyroidism, rarely in acute denervation, in patients receiving steroids, with uremia, upper motor neuron deficits or remote neoplasms. (CAV/ls/akn) *ADDENDUM 1 EM #[id number]. Four 1 micron thick toluidine blue stained sections of the muscle biopsy are examined at the light microscopic level. Block 1 shows well-oriented fibers in longitudinal section and this block will be thin-sectioned. (CAV/amc) *ADDENDUM 2 Special histochemistry demonstrates the presence of cytochrome oxidase, phosphofructokinase, adenylate deaminase, and myophosphorylase within the muscle cell cytoplasm. Dividend Deposit Entry Clerk Anais Ruggiero PATHOLOGIST Clara Macias M.D. ELECTRONICALLY CLARA HONG MISCELLANEOUS SAMPLES / Unknown 03/29/2003 10:10 AM MESSAGE BROKER DEVELOPER 03/29/2003 10:25 AM MESSAGE BROKER DEVELOPER Historical Provider LAB - PATHOLOGY/C YTOLOGY ORDERABLES [facility] PATH REPORT * GROSS EXAM PATHOLOGY (11/10/2002 12:50 PM CDT) Result CASE NUMBER [id number] [facility] PATH REPORT Comment: ORDERING PHYSICIAN SHAUN RICH SPECIMEN TYPE Tonsils / Adenoids CLINICAL HISTORY The patient is a 17-year-old boy with obstructive sleep apnea. GROSS DESCRIPTION The specimen labeled with the patient's name and tonsils and adenoids is received fresh for gross examination only and consists of two egg- shaped, pink-ryan tonsils measuring 3.0 x 1.5 x 1.3 cm and 2.8 x 1.8 x 1.4 cm weighing approximately 9.0 gms combined. On cut surface, the tonsils have a cerebriform yellow-ryan appearance. No sections are taken. Also submitted in the same container are multiple fragments of pink-ryan lymphoid tissue admixed with dark red blood clot with an aggregate measurement of 2.5 x 1.5 x 0.5 cm weighing approximately 1.0 gm. No sections are taken. (CT/lw) GROSS DIAGNOSIS GROSS DIAGNOSIS TONSILS AND ADENOIDS. This case has been personally reviewed and interpreted by the attending (teaching) pathologist. Dividend Deposit Entry Clerk Ho Valera PATHOLOGIST Carolee Abbott M.D. ELECTRONICALLY JOEL CAROLEE MILLIGAN MISCELLANEOUS SAMPLES / Unknown 11/10/2002 12:50 PM CDT 11/10/2002 2:37 PM CDT Historical Provider LAB - PATHOLOGY/C YTOLOGY ORDERABLES [facility] PATH REPORT
--- OUTSIDE RECORDS SUMMARY | 2024-05-09 12:41 | XMS_ITS | Referral Summary ---
Author Organization [facility] Address [address] [place] [address] Care Team Providers Care Human Resources Representative Name Role Phone Nikky Cunningham MD Primary Care Provider Encounters Date Type Department Care Team Description 03/20/2024 2:52 AM LOG YARD DERRICK OPERATOR - 03/20/2024 8:10 AM LOG YARD DERRICK OPERATOR [facility] Emergency Department [address] [place] [address] Aren Gomez MD Abdominal pain (Primary Dx); Biliary colic Discharge Disposition: Discharge to home or self care 03/03/2024 8:30 AM LOG YARD DERRICK OPERATOR Office Visit [facility] G[facility] at [address] [place] [phone] Rubio Martinez NP Irritable bowel syndrome with both constipation and diarrhea (Primary Dx); BRBPR (bright red blood per rectum); Nausea without vomiting; RUQ pain; Erosive esophagitis; Superficial gastritis without hemorrhage, unspecified chronicity; Tubular adenoma of colon; Hepatic steatosis from Last 3 Months Allergies Active Allergy Reactions Criticality Noted Date Comments Lisinopril Cough Low 06/19/2023 Morphine Palpitations,Other ( See comments) High 07/11/2018 Bradycardia. Medications albuterol HFA (PROVENTIL HFA,VENTOLIN HFA,PROAIR HFA) 90 mcg/actuation inhaler TAKE 2 PUFFS BY MOUTH EVERY 6 HOURS NEEDED FOR WHEEZE OR SHORTNESS OF BREATH 06/30/19 Active blood sugar diagnostic (ONETOUCH VERIO TEST [...] In the past 12 months has e [employer], gas, oil, or water company threatened to [...] often do you attend chur ch or congregation services? Never 06/20/2023 Do you belong to any clubs o r organizations such as scientology groups, unions, fraternal or athletic groups, or [...] on file Legal Sex Male 7:25 PM LOG YARD DERRICK OPERATOR Gender Identity Not on file Sexual Orientation Not on file Last Filed Vital Signs Vital Sign Reading Time Taken Comments Blood Pressure 151/92 03/20/2024 7:55 AM LOG YARD DERRICK OPERATOR Pulse 88 03/20/2024 7:55 AM LOG YARD DERRICK OPERATOR Temperature 35.8 C (96.4 F) 03/20/2024 2:55 AM LOG YARD DERRICK OPERATOR Respiratory Rate 16 03/20/2024 7:55 AM LOG YARD DERRICK OPERATOR Oxygen Saturation 98% 03/20/2024 7:55 AM LOG YARD DERRICK OPERATOR Inhaled Oxygen Concentration - - Weight 140.6 kg (310 lb) 03/20/2024 2:55 AM LOG YARD DERRICK OPERATOR Height 180.3 cm (5' 11 ) 03/03/2024 8:31 AM LOG YARD DERRICK OPERATOR Body Mass Index 43.24 03/03/2024 8:31 AM LOG YARD DERRICK OPERATOR Plan of Treatment Not on file Procedures Procedure Name Priority Date/Time Associated Diagnosis Comments CT ABDOMEN PELVIS W CONTRAST ED 03/20/2024 6:25 AM LOG YARD DERRICK OPERATOR EGFR STAT 03/20/2024 3:08 AM LOG YARD DERRICK OPERATOR DIFFERENTIAL AUTO STAT 03/20/2024 3:0 8 AM LOG YARD DERRICK OPERATOR LIPASE STAT 03/20/2024 3:08 AM LOG YARD DERRICK OPERATOR COMPREHENSIVE METABOLIC PANEL STAT 03/20/2024 3:08 AM LOG YARD DERRICK OPERATOR CBC WITH AUTO DIFFERENTIAL STAT 03/20/2024 3:08 AM LOG YARD DERRICK OPERATOR HEPATITIS PANEL, ACUTE Routine 0 7:23 AM CDT HEMOGLOBIN A1C Routine 09/25/2019 4:25 AM CDT LIPID PANEL Routine 09/25/2019 4:25 AM CDT from Last 3 Months or Most Recently Relevant to Health Maintenance Results * CT Abdomen Pelvis W Contrast (03/20/2024 6:25 AM LOG YARD DERRICK OPERATOR) Anatomical Region Laterality Modality Body N/A Computed Tomogra phy 03/20/2024 6:27 AM LOG YARD DERRICK OPERATOR Narrative 03/20/2024 6:31 AM LOG YARD DERRICK OPERATOR EXAM DESCRIPTION: CT ABDOMEN PELVIS W CONTRAST REASON FOR STUDY: Abdominal infection suspected sided epigastric pain. Pt reports pain is a 9/10, started aprox 30-40 minutes prior to coming to the ER. Pt states that he was seen by his PCP last week for n/v after eating. Pt states that he also has hx of pancreatitis. No surgery Hx of asthma, diabetes, and HTN No [...] IODINE/ML INTRAVENOUS SYRINGE injected via intravenous COMPARISON: 09/17/2023. FINDINGS: LOWER CHEST: Lung bases are predominantly clear. There is no pleural effusion. LIVER: Liver size and contour normal. No focal hepatic lesion. Portal and hepatic veins are patent. GALLBLADDER: No gallstones or overt inflammatory change. BILE DUCTS: No biliary ductal dilation. SPLEEN: Spleen size normal. There is a splenule. PANCREAS: No pancreatic mass or inflammatory change. ADRENALS: Normal KIDNEYS/URINARY TRACT: No right renal calculus. No left renal calculus. No ureteral calculus. There is moderate distension of the urinary bladder. GI: No evidence of bowel obstruction. The terminal ileum and the appendix are normal. The stomach and duodenal are normal. There is no pneumatosis. PERITONEUM: No ascites or free air. No mesenteric mass or lymphadenopathy. RETROPERITONEUM: Few mesenteric lymph nodes which are [...] Alessio Arango M.D. CH: LAINA Report ID: [id number] Reading Location: [id number] Procedure Note Alessio Arango Jr., MD - [...] Alessio Arango M.D. CH: LAINA Report ID: [id number] Reading Location: [place] [address] Aren Gomez MD IMG CT PROCEDURES Final Resu lt * eGFR (03/20/2024 3:08 AM LOG YARD DERRICK OPERATOR) [facility] eGFR >90 >=60 mL/min/1. 73 m2 Comment: Interpretive Data Reference Interval Normal >/= 90 mL/min/1.73m2 Mildly decreased* 60 - 89 mL/min/1.73m2 Mildly to moderately decreased 45 - 59 mL/min/1.73m2 Moderately to severely decreased 30 - 44 mL/min/1.73m2 Severely decreased 15 - 29 mL/min/1.73m2 Kidney Failure < 15 mL/min/1.73m2 *Relative to young adult level Estimated glomerular filtration rate is determined by the 2020 CKD-EPI equation recommended by the National Kidney Foundation (A Unifying Approach to GFR Estimation: Recommendations of the NKF-ASK Task Force on Reassessing the Inclusion of Race in Diagnosing Kidney Disease, JASN 202). The CKD-EPI equation should not be used for patients with unstable renal function and has not been validated in children and those over 70. Current interpretive data was last reviewed 2021. Blood 03/20/2024 3:08 AM LOG YARD DERRICK OPERATOR 03/20/2024 3:18 AM LOG YARD DERRICK OPERATOR Aren Gomez MD LAB BLOOD ORDERABLES Final R esult [facility] [place] 1 [facility] Department [place] [address] * Differential, auto (03/20/2024 3:08 AM LOG YARD DERRICK OPERATOR) Neutrophil abs 3.4 1.5 - 6.5 [...] revised on 2017. Blood 03/20/2024 3:08 AM LOG YARD DERRICK OPERATOR 03/20/2024 3:18 AM LOG YARD DERRICK OPERATOR Aren Gomez MD LAB BLOOD ORDERABLES Final R esult [facility] ([place]) 1 [facility] Department [place] [address] * CBC with auto differential (03/20/2024 3:08 AM LOG YARD DERRICK OPERATOR) WBC 7.6 3.8 - 9.9 K/cumm [...] ([facility]) Blood (Blood, Venous) 03/20/2024 3:08 AM LOG YARD DERRICK OPERATOR 03/20/2024 3:18 AM LOG YARD DERRICK OPERATOR Aren Gomez MD LAB BLOOD ORDERABLES Final R esult [facility] ([place]) 1 [facility] Department [place] [address] * Lipase (03/20/2024 3:08 AM LOG YARD DERRICK OPERATOR) Lipase 47 10 - 99 Units/L Blood (Blood, Venous) 03/20/2024 3:08 AM LOG YARD DERRICK OPERATOR 03/20/2024 3:18 AM LOG YARD DERRICK OPERATOR Aren Gomez MD LAB BLOOD ORDERABLES Final R esult [facility] ([place]) 1 [facility] Department [place] [address] * (ABNORMAL) Comprehensive metabolic panel (03/20/2024 3:08 AM LOG YARD DERRICK OPERATOR) Sodium 141 135 - 145 mmol/L [...] >/= 126 mg/dl is diagnostic for diabetes. Fasting is defined as no caloric intake [...] ([place]) AST 34 10 - 50 Units/L [facility] ([place]) Comment:Slightly Hemolyzed S pecimen Blood 03/20/2024 3:08 AM LOG YARD DERRICK OPERATOR 03/20/2024 3:18 AM LOG YARD DERRICK OPERATOR Aren Gomez MD LAB BLOOD ORDERABLES Final R esult [facility] ([place] 1 [facility] Department [place] [address] * Hepatitis panel, acute (09/25/2019 7:23 AM CDT) HepBsAg NONREACT NONREACTIVE [facility] Comment: Siemens CentaurXP using TAMMY (chemiluminescent immunoassay) technology. NONREACTIVE: IgM antibodies to Hepatitis B Surface antigen not detected. REACTIVE: IgM antibodies to Hepatitis B Surface antigen detected. Reactive results will be confirmed by neutralization testing. HBsAb qn 129.36 mIU/mL [facility] Comment: Siemens CentaurXP using TAMMY (chemiluminescent immunoassay) technology. 9.99 IU/L or less.....NONREACTIVE: IgM antibodies to Hepatitis B Surface antibody are not detected. 10.00 IU/L or greater..REACTIVE: IgM antibodies to Hepatitis B Surface antibody are detected. Hep B core IgM NONREACT NONREACTIVE [facility] Comment: Siemens CentaurXP using TAMMY (chemiluminescent immunoassay) technology. NONREACTIVE: IgM antibodies to Hepatitis B Core antigen not detected. EQUIVOCAL: IgM antibodies to Hepatitis B Core antigen may or may not be present. Obtain a new specimen and retest. REACTIVE: IgM antibodies to Hepatitis B Core antigen detected. Hep A IgM NONREACT NONREACTIVE [facility] Comment: Siemens CentaurXP using TAMMY (chemiluminescent immunoassay) technology. NONREACTIVE: IgM antibodies to Hepatitis A not detected. This does not exclude possibility of exposure to Hepatitis A or early acute infection. EQUIVOCAL:IgM antibodies to Hepatitis A may or may not be present. Suggest recollection and retest. REACTIVE: Antibodies to Hepatitis A detected. Hep C Ab NONREACT NONREACTIVE [facility] Comment: Siemens CentaurXP using TAMMY (chemiluminescent immunoassay) technology. NONREACTIVE: Antibodies to Hepatitis C not detected. This does not exclude early acute Hepatitis C infection, possibility of exposure to Hepatitis C, antibodies below detection limit, or to lack of antibody reactivity to the antigen used in this assay. EQUIVOCAL: Antibodies to Hepatitis C may or may not be present. Sample to be confirmed by real-time PCR method. REACTIVE: Antibodies to Hepatitis C detected.Sample to be confirmed by real-time PCR method. 09/25/2019 7:23 AM CDT 09/25/2019 7:39 AM CDT Narrative Resulting Agency Comment LENORA Anish Solis MD LAB MICROBIOLOGY - GENERAL OR DERABLES Final Result Performing Organization Address [facility]/ZIP Co de Phone Number [facility] [address] [phone] * (ABNORMAL) Hemoglobin A1c (09/25/2019 4:25 AM CDT) Hemoglobin A1c % 9.5(H) 4.0 - 5.6 % [facility] Comment: ADA 2016 GUIDELINES: Initial Diagnostic Criteria HbA1c Result: Interpretation: <5.7% Normal 5.7-6.4% At risk for diabetes mellitus >=6.5% Consistent with diabetes mellitus Diabetes monitoring Target value (ADA Recommended) <7% 09/25/2019 4:25 AM CDT 09/25/2019 5:43 AM CDT Narrative Resulting Agency Comment LENORA Anish Solis MD LAB BLOOD ORDERABLES Final Re sult Performing Organization Address City/[facility]/ZIP Co de Phone Number [address] [phone] * (ABNORMAL) Lipid panel (09/25/2019 4:25 AM CDT) Triglycerides 592(H) 0 - 149 mg/dL [facility] Comment: LDL(measured) to follow due to Triglycerides >250 mg/dL. National Lipid Association/NCEP Guidelines: Normal < 150 mg/dL Borderline high 150-199 mg/dL High 200-499 mg/dL Very High >=500 mg/dL Cholesterol 131 0 - 199 mg/dL [facility] Comment: National Lipid Association/NCEP Guidelines: Desirable < 200 mg/dL Borderline high: 200-239 mg/dL High Risk: >=240 mg/dL HDL Cholesterol 20 mg/dL [facility] Comment: Reference Ranges: Males: >=40 mg/dL Females: >=50 mg/dL Cholesterol/HDL Ratio 6.6 [facility] Comment: Optimal < 3.5:1 High > 5:1 09/25/2019 4:25 AM CDT 09/25/2019 5:43 AM CDT Narrative Resulting Agency Comment LENORA Anish Solis MD LAB BLOOD ORDERABLES Final Re sult [facility] [address] [phone] from Last 3 Months or Most Recently Relevant to Health Maintenance Insurance ACCESS CHOICE [employer] ANTHEM ACCESS CHOICE Advance Directives For more information, please contact: [phone] * Full Code (Latest Code Status on File) Date Activated Date Inactivated Comments 06/19/2023 7:33 PM 06/21/2023 5:05 PM Care Teams Human Resources Representative Relationship Specialty Start Date End Date Nikky Cunningham MD [address] [place] [address] PCP - General Family Medicine 03/03/24
--- OUTSIDE RECORDS SUMMARY | 2024-05-09 12:41 | XMS_ITS | Clinical Summary ---
Author Organization [facility] Address [address] [place] [address] Care Team Providers Care Board Certified Behavioral Analyst Name Role Phone Unavailable Primary Care Provider Unavailabl e Source Comments [facility],non-owned Affiliates and Associated Physician Practices is amultiple site organization consisting of ambulatory clinics and hospital sitesin [place], [place], [place] and [place]. This disclosure is being madepursuant to the Care Everywhere program and may not contain all information available regarding this patient. Last updated 17.[facility] Allergies Active Allergy Reactions Criticality Noted Date [...] Health Maintenance Due Date Last Done Comments HIV SCREENING 10/21/2002 DTAP/TDAP/TD VACCINES (1 - Tdap) 10/21/2006 HEPATITIS B VACCINE (1 of 3 - 19+ 3-dose series) 10/21/2006 PNEUMOCOCCAL VACCINE (1 of 2 - PCV) 10/21/2006 DIABETES RETINOPATHY SCREENING 06/21/2020 DIABETES-FOOT EXAM WITH MONOFILAMENT 06/21/2020 DIABETES-HGB A1C 06/21/2020 09/25/2019 DIABETES-SERUM CREATININE 11/12/20202019, 11/13/2019, 06/30/2019, Additional history exists COVID-19 VACCINE (1 - 2023- season) 2023 INFLUENZA VACCINE (#1) 2023 01/30/2018 DEPRESSION SCREENING 04/01/2024 DIABETES - URINE PROTEIN SCREENING 04/01/2024 ZOSTER VACCINE (1 of 2) 10/21/2037 HEPATITIS C SCREENING Completed 09/25/2019 (Done Outside Per Report) HIB VACCINE Aged Out No longer eligi ble based on patient's age to complete this topic HPV VACCINE Aged Out No longer eligi ble based on patient's age to complete this topic MENINGOCOCCAL (Group B) VACCINE Aged Out No longer eligible based on patient's age to complete this topic MENINGOCOCCAL VACCINE Aged Out No al angel eligible based on patient's age to complete this topic
--- OUTSIDE RECORDS SUMMARY | 2024-05-09 12:41 | XMS_ITS | Referral Summary ---
Author Organization [facility] Address [address] [place] [address] Care Team Providers Care Lamp Developer Name Role Phone Unavailable Primary Care Provider Unavailabl e Source Comments [facility],non-owned Affiliates and Associated Physician Practices is amultiple site organization consisting of ambulatory clinics and hospital sitesin [place], [place], [place] and [place]. This disclosure is being madepursuant to the Care Everywhere program and may not contain all information available regarding this patient. Last updated 17.[facility] Allergies Active Allergy Reactions Criticality Noted Date [...]
--- OUTSIDE RECORDS SUMMARY | 2024-05-09 12:41 | XMS_ITS | Clinical Summary ---
Author Organization [facility] Address [facility] [place] [address] Care Team Providers Care Emergency Room Physician Assistant Name Role Phone Starla Parham MD Primary Care Provider [phone] Allergies Active Allergy Reactions Criticality Noted Date [...] 83 07/09/2022 11:45 AM CDT Temperature 36.4 C (97.5 F) 07/09/2022 9:37 AM CDT Respiratory Rate 20 07/09/2022 11:45 AM CDT [...] - 19+ 3-dose series) 10/21/2006 COVID-19 Vaccine ( - 2023-2 5 season) 2023 03/03/2021, 02/03/2021 Influenza Adult (#1) 2023 01/30/2018 HPV Vaccines Aged Out No longer eligi ble based on patient's age to complete this topic Meningococcal B Vaccine Aged Out No l onger eligible based on patient's age to complete [...] patient's age to complete this topic Insurance [place] Care Teams Emergency Room Physician Assistant Relationship Specialty Start Date End Date Starla Parham MD PCP - General FAMILY PRACTICE 11/17/20
--- OUTSIDE RECORDS SUMMARY | 2024-05-09 12:41 | XMS_ITS | Clinical Summary ---
Author Organization [facility] Office Center Address [address] [place] [address] Care Team Providers Care Deposition Operator Name Role Phone Nikky Cunningham MD [...] Department Care Team Description 03/20/2024 2:52 AM NANOSCIENCE TECHNICIAN - 03/20/2024 8:10 AM NANOSCIENCE TECHNICIAN Emergency [facility] Emergency Department [address] [place] [address] Aren Gomez MD Abdominal pain (Primary Dx); Biliary colic Discharge Disposition: Discharge to home or self care 03/03/2024 8:30 AM NANOSCIENCE TECHNICIAN Office Visit [facility] Gastroenterology at [address] [place] [address] Rubio Martinez NP Irritable bowel syndrome with both constipation and diarrhea (Primary Dx); BRBPR (bright red blood per rectum); Nausea without vomiting; RUQ pain; Erosive esophagitis; Superficial gastritis without hemorrhage, unspecified chronicity; Tubular adenoma of colon; Hepatic steatosis from Last 3 Months Immunizations Name Administration [...] often do you attend chur ch or amish services? Never 06/20/2023 Do you belong to any clubs o r organizations such as caodaism groups, unions, fraternal or athletic groups, or [...] on file Legal Sex Male 7:25 PM NANOSCIENCE TECHNICIAN Gender Identity Not on file Sexual Orientation Not on file Obstetrics History Last Filed Vital Signs Vital Sign Reading Time Taken Comments Blood Pressure 151/92 03/20/2024 7:55 AM NANOSCIENCE TECHNICIAN Pulse 88 03/20/2024 7:55 AM NANOSCIENCE TECHNICIAN Temperature 35.8 C (96.4 F) 03/20/2024 2:55 AM NANOSCIENCE TECHNICIAN Respiratory Rate 16 03/20/2024 7:55 AM NANOSCIENCE TECHNICIAN Oxygen Saturation 98% 03/20/2024 7:55 AM NANOSCIENCE TECHNICIAN Inhaled Oxygen Concentration - - Weight 140.6 kg (310 lb) 03/20/2024 2:55 AM NANOSCIENCE TECHNICIAN Height 180.3 cm (5' 11 ) 03/03/2024 8:31 AM NANOSCIENCE TECHNICIAN Body Mass Index 43.24 03/03/2024 8:31 AM NANOSCIENCE TECHNICIAN Plan of Treatment Health Maintenance Due Date [...] Lipid Panel 09/24/2020 09/25/2019 Covid-19 Vaccine ( - season) 2023 03/03/2021, 02/03/2021 Influenza Vaccine (#1) 2023 01/30/2018 eGFR 03/20/2025 03/20/2024, 0610/2023, 06/20/2023, Additional history exists Hepatitis C Screening Completed 09/25/2019 HPV Vaccines Aged Out No longer eligi ble based on patient's age to complete this topic Procedures Procedure Name Priority Date/Time Associated Diagnosis Comments CT ABDOMEN PELVIS W CONTRAST ED 03/20/2024 6:25 AM NANOSCIENCE TECHNICIAN EGFR STAT 03/20/2024 3:08 AM NANOSCIENCE TECHNICIAN DIFFERENTIAL AUTO STAT 03/20/2024 3:0 8 AM NANOSCIENCE TECHNICIAN LIPASE STAT 03/20/2024 3:08 AM NANOSCIENCE TECHNICIAN COMPREHENSIVE METABOLIC PANEL STAT 03/20/2024 3:08 AM NANOSCIENCE TECHNICIAN CBC WITH AUTO DIFFERENTIAL STAT 03/20/2024 3:08 AM NANOSCIENCE TECHNICIAN HEPATITIS PANEL, ACUTE Routine 0 7:23 AM CDT HEMOGLOBIN A1C Routine 09/25/2019 4:25 AM CDT LIPID PANEL Routine 09/25/2019 4:25 AM CDT from Last 3 Months or Most Recently Relevant to Health Maintenance Results * CT Abdomen Pelvis W Contrast (03/20/2024 6:25 AM NANOSCIENCE TECHNICIAN) Anatomical Region Laterality Modality Body N/A Computed Tomogra phy 03/20/2024 6:27 AM NANOSCIENCE TECHNICIAN Narrative 03/20/2024 6:31 AM NANOSCIENCE TECHNICIAN EXAM DESCRIPTION: CT ABDOMEN PELVIS W CONTRAST [...] Alessio Arango M.D. CH: LAINA Report ID: [id number] Reading Location: [id number] Procedure Note Alessio Arango Jr., MD - [...] Alessio Arango M.D. CH: LAINA Report ID: [id number] Reading Location: [place] [address] Aren Gomez MD IMG CT PROCEDURES Final Resu lt * eGFR (03/20/2024 3:08 AM NANOSCIENCE TECHNICIAN) eGFR >90 >=60 mL/min/1. 73 m2 Comment: [...] last reviewed 2021. Blood 03/20/2024 3:08 AM NANOSCIENCE TECHNICIAN 03/20/2024 3:18 AM NANOSCIENCE TECHNICIAN Aren Gomez MD LAB BLOOD ORDERABLES Final R esult [facility] (PROTECTION) [address] [facility] Department [place] [address] * Differential, auto (03/20/2024 3:08 AM NANOSCIENCE TECHNICIAN) Neutrophil abs 3.4 1.5 - 6.5 K/cumm [...] revised on 2017. Blood 03/20/2024 3:08 AM NANOSCIENCE TECHNICIAN 03/20/2024 3:18 AM NANOSCIENCE TECHNICIAN Aren Gomez MD LAB BLOOD ORDERABLES Final R esult [facility] (PROTE[facility]) [address] [facility] Department [place] [address] * CBC with auto differential (03/20/2024 3:08 AM NANOSCIENCE TECHNICIAN) WBC 7.6 3.8 - 9.9 K/cumm Hgb 14.3 13.0 - 17.5 g/dL [facility] ([place]) Hct 43.0 38.9 - 50.3 % [facility] ([place]) Plt 328 150 - 400 K/cumm [facility] ([place]) MPV 9.3 9.1 - 12.3 fL [facility] ([place]) RBC 4.99 4.30 - 5.80 M/cumm [facility] ([place] MCV 86.2 81.3 - 96.4 fL [facility] ([place]) MCH 28.7 27.1 - 33.3 pg [facility] ([place]) MCHC 33.3 32.3 - 35.7 g/dL [facility] ([place]) RDW CV 12.1 11.1 - 14.9 % [facility] ([place]) RDW SD 38.3 35.7 - 48.1 fL [facility] ([place]) NRBC abs 0.00 0.00 - 0.01 K/cumm [facility] ([place]) Blood (Blood, Venous) 03/20/2024 3:08 AM NANOSCIENCE TECHNICIAN 03/20/2024 3:18 AM NANOSCIENCE TECHNICIAN Aren Gomez MD LAB BLOOD ORDERABLES Final R esult Performing Organization Address City/[facility]/ZIP Co de Phone Number [facility] ([place]) [address] [facility] [address] [place] [address] * Lipase (03/20/2024 3:08 AM NANOSCIENCE TECHNICIAN) Pathologist [facility] Lipase 47 10 - 99 Units/L Blood (Blood, Venous) 03/20/2024 3:08 AM NANOSCIENCE TECHNICIAN 03/20/2024 3:18 AM NANOSCIENCE TECHNICIAN Aren Gomez MD LAB BLOOD ORDERABLES Final R esult [facility] ([place]) 1 [facility] [place] [address] * (ABNORMAL) Comprehensive metabolic panel (03/20/2024 3:08 AM NANOSCIENCE TECHNICIAN) Pathologist [facility] Sodium 141 135 - 145 mmol/L Potassium, pl 3.8 3.3 - 4.9 mmol/L [facility] ([place]) Chloride 102 97 - 110 mmol/L [facility] ([place]) CO2 23 22 - 32 [...] 2022. Calcium 10.0 8.5 - 10.3 mg/dL [facility] ([place]) Bilirubin, total <0.2 0.1 - 1.2 mg/dL [facility] ([place]) Protein, pl 8.3 6.5 - 8.5 g/dL [facility] ([place]) Albumin 4.9 3.5 - 5.0 g/dL [facility] ([place]) Alk phos 86 40 - 130 Units/L [facility] ([place]) ALT 38 7 - 55 Units/L [facility] ([place]) AST 34 10 - 50 Units/L [facility] ([place]) Comment:Slightly Hemolyzed S pecimen Blood 03/20/2024 3:08 AM NANOSCIENCE TECHNICIAN 03/20/2024 3:18 AM NANOSCIENCE TECHNICIAN us Aren Gomez MD LAB BLOOD ORDERABLES Final R esult [facility] ([place]) [address] [facility] Department [place] [address] * Hepatitis panel, acute (09/25/2019 7:23 AM CDT) Pathologist [facility] HepBsAg NONREACT NONREACTIVE [facility] Comment: Siemens CentaurXP using TAMMY (chemiluminescent immunoassay) technology. NONREACTIVE: IgM antibodies to Hepatitis B Surface antigen not detected. REACTIVE: IgM antibodies to Hepatitis B Surface antigen detected. Reactive results will be confirmed by neutralization testing. HBsAb qn 129.36 mIU/mL [facility] Comment: Siemens CentaurXP using TAMMY (chemiluminescent [...] antigen detected. Hep A IgM NONREACT NONREACTIVE [facility] Comment: Siemens CentaurXP using TAMMY (chemiluminescent immunoassay) technology. NONREACTIVE: IgM antibodies to Hepatitis A not detected. This does not exclude possibility of exposure to Hepatitis A or early acute infection. EQUIVOCAL:IgM antibodies to Hepatitis A may or may not be present. Suggest recollection and retest. REACTIVE: Antibodies to Hepatitis A detected. Hep C Ab NONREACT NONREACTIVE [facility] Comment: Siemens CentaurXP using TAMMY (chemiluminescent [...] MICROBIOLOGY - GENERAL OR DERABLES Final Result [facility] [address] [phone] * (ABNORMAL) Hemoglobin A1c (09/25/2019 4:25 AM CDT) Hemoglobin A1c % 9.5(H) 4.0 - 5.6 % [facility] Comment: ADA 2016 GUIDELINES: Initial Diagnostic Criteria HbA1c Result: Interpretation: <5.7% Normal 5.7-6.4% At risk for diabetes mellitus >=6.5% Consistent with diabetes mellitus Diabetes monitoring Target value (ADA Recommended) <7% 09/25/2019 4:25 AM CDT 09/25/2019 5:43 AM CDT Narrative Resulting Agency Comment L[place] us Anish Solis MD LAB BLOOD ORDERABLES Final Re sult [facility] [address] [phone] * (ABNORMAL) Lipid panel (09/25/2019 4:25 AM CDT) Triglycerides 592(H) 0 - 149 mg/dL [facility] Comment: LDL(measured) to follow due to Triglycerides >250 mg/dL. National Lipid Association/NCEP Guidelines: Normal < 150 mg/dL Borderline high 150-199 mg/dL High 200-499 mg/dL Very High >=500 mg/dL Cholesterol 131 0 - 199 mg/dL [facility] Comment: National Lipid Association/NCEP Guidelines: Desirable < 200 mg/dL Borderline high: 200-239 mg/dL High Risk: >=240 mg/dL HDL Cholesterol 20 mg/dL [facility] Comment: Reference Ranges: Males: >=40 mg/dL Females: >=50 mg/dL Cholesterol/HDL Ratio 6.6 [facility] Comment: Optimal < 3.5:1 High > 5:1 09/25/2019 4:25 AM CDT 09/25/2019 5:43 AM CDT Narrative Resulting Agency Comment [place]OR[place] us Anish Solis MD LAB BLOOD ORDERABLES Final Re sult [facility] Organization Address City/State/ZIP Co de Phone Number [place] [phone] [place] [address], [facility] [phone] from Last 3 Months or Most Recently Relevant to Health Maintenance Insurance [facility] ACCESS CHOICE [facility] ACCESS CHOICE Advance Directives For more information, please contact: [phone] * Full Code (Latest Code Status on File) Date Activated Date Inactivated Comments 06/19/2023 7:33 PM 06/21/2023 5:05 PM Care Teams Deposition Operator Relationship Specialty Start Date End Date Nikky Cunningham MD [address] [place] [address] [address] [place] [address] PCP - General Family Medicine 03/03/24
[2024-05-09 12:57] VITALS: BP 145/87; PULSE 100; RESP 20; TEMP 36.5; O2SAT 98
--- NOTE | 2024-05-09 14:56 | ED_ITS ---
HPI - Ear Problem General Chief complaint: Ear Stated complaint: ear inf Source: patient Mode of arrival: ambulatory Limitations: no limitations History of Present Illness HPI Narrative: Patient presents for evaluation of left-sided ear pain. 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 He has a history of recurrent ear infections on the left. He reports itching, discomfort and muf fled hearing left ear. He denies any fever, chills, nausea, vomiting, sore throat, cough, shortness of breath. His son is being evaluated here for similar symptoms. Related Data Home Medications ?Medication ?Instructions ?Recorded ?Confirmed ?Last Taken ?Type pantoprazole 40 mg tablet,delayed 40 mg PO HS 03/05/23 04/27/24 03/27/24 History release loratadine 10 mg tablet (Claritin) 10 mg PO HS 10/18/23 04/27/24 03/27/24 History amitriptyline 25 mg tablet 25 mg PO HS 02/17/24 04/27/24 03/27/24 History amlodipine 10 mg tablet 10 mg PO HS 02/17/24 04/27/24 03/27/24 History cholecalciferol (vitamin D3) 25 25 mcg PO HS 02/17/24 04/27/24 03/27/24 History mcg (1,000 unit) tablet simethicone 125 mg chewable tablet 125 mg PO QID PRN abdominal 02/17/24 04/27/24 Unknown History (Gas Relief Extra Strength) distention albuterol sulfate 90 mcg/actuation 2 puff inhalation Q6H PRN 03/20/24 04/27/24 Unknown History aerosol inhaler shortness of breath or wheezing linaclotide 145 mcg capsule 145 mcg PO DAILY 03/20/24 04/27/24 03/27/24 History (Linzess) metformin 500 mg tablet 500 mg PO BID 03/28/24 04/27/24 03/27/24 History Allergies Allergy/AdvReac Type Severity Reaction Status Date / Time morphine Allergy Unknown SEIZURE Verified 05/09/24 12:49 lisinopril AdvReac Unknown Cough Verified 05/09/24 12:49 Review of Systems Review of Systems: CONSTITUTIONAL: Denies fever, chills, or sweats. EYES: Denies visual changes, redness, or discharge. ENT:Reports left sided ear pain with itching and muffled hearing. Denies rhinorrhea, congestion, sore throat CARDIOVASCULAR: Denies chest pain, palpitations, or edema. RESPIRATORY: Denies cough or dyspnea. GASTROINTESTINAL: Denies abdominal pain, nausea, vomiting, or diarrhea. GENITOURINARY: Denies dysuria or hematuria. SKIN: Denies rash or itching. MUSCULOSKELETAL: Denies back pain, joint pain, or myalgia. NEUROLOGIC: Denies headache, numbness, dizziness, or weakness. PSYCHIATRIC: Denies anxiety or depression. [facility] Past Medical History Medical History Diabetes Anxiety Depression Back pain Ankle fracture Hand fracture, right Vertebral fracture hairline thoracic vertebra fracture UTI (urinary tract infection) Kidney stones GI bleed GERD (gastroesophageal reflux disease) IBS (irritable bowel syndrome) History of rectal polyps Pancreatitis Ulcerative colitis Pneumonia Bronchitis Asthma HTN (hypertension) Surgical History Surgical History History of laparoscopic cholecystectomy 03/21/2024 Hx laparoscopic cholecystectomy Hx of tonsillectomy Family History Family History Father Lung cancer Grandparent Carcinoma of colon Pancreatic cancer Sibling Testicular cancer Social History Social History Social History: Caffeine-daily Smoking packs per day: 0.5 Smoking cigarettes per day: 10.0 Years smoked: 2 Smoking pack-years: 1.00 Smoking status: Never smoker Tobacco type: cigarettes Additional smoking assessment comments: STOPPED SMOKING 2009 Alcohol intake: current Drinks per week: 1 Alcohol use details: socially Substance use: never Substance use type: marijuana Last use: 5 YRS Do You Feel Safe in your Home?: Yes Lack of Transportation: No Lack of Food: Never True Current Housing: I Have Housing Concerned About Future Housing: No Difficulty Paying Gas/Electric Bills: No Difficulty Paying for Meds: No Currently Unemployed: No Education: Associate Degree Difficulty w/ Childcare or Family Care: No Living arrangements: with family Occupation/Education: occupation 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 HEAD: Normocephalic, atraumatic. EYES: PERRLA and EOMI. ENT: Nares clear, no rhinorrhea or epistaxis. Mucous membranes moist. Oropharynx without tonsillar hypertrophy exudate or other lesions. Congenital deformity of right ear. Left tympanic membrane is slightly erythematous. NECK: Supple. No adenopathy or masses. No carotid bruits or JVD CHEST: Clear to auscultation. No respiratory distress. No wheezes rales or rhonchi HEART: Regular rate and rhythm. No murmur heard. Normal peripheral pulses. ABDOMEN: Soft, nontender, nondistended, normal active bowel sounds. EXTREMITIES: Normal range of motion. No edema. SKIN: Warm, dry, no rash. NEURO: No focal deficits. Alert and oriented x3. PSYCH: Normal mood and affect. Course Course Emergency Course: This is a 38-year-old male who presented for evaluation of left-sided ear pain. He has mild erythema present. He likely has a developing otitis media. Given his clinical history, we opted to proceed with antibiotic therapy. Will discharge with Augmentin. Increase hydration. [id number] agents for s ymptom management. Follow up primary provider. Go to the ER for worsening symptoms. Patient in agreement with plan of care. Level of Care: Express Care Visit Vital Signs Vital signs: Vital Signs Temperature 36.5 C 05/09/24 12:57 Pulse Rate 100 05/09/24 12:57 Respiratory Rate 20 05/09/24 12:57 Blood Pressure 145/87 H 05/09/24 12:57 Pulse Oximetry 98 05/09/24 12:57 Oxygen Delivery Room Air 05/09/24 12:57 Temperature 36.5 C 05/09/24 12:57 Pulse Rate 100 05/09/24 12:57 Respiratory Rate 20 05/09/24 12:57 Blood Pressure 145/87 H 05/09/24 12:57 Pulse Oximetry 98 05/09/24 12:57 Oxygen Delivery Room Air 05/09/24 12:57 Medical Decision Making Vital Signs Vital Signs: Vital Signs Temperature 36.5 C 05/09/24 12:57 Pulse Rate 100 05/09/24 12:57 Respiratory Rate 20 05/09/24 12:57 Blood Pressure 145/87 H 05/09/24 12:57 Pulse Oximetry 98 05/09/24 12:57 Oxygen Delivery Room Air 05/09/24 12:57 Temperature 36.5 C 05/09/24 12:57 Pulse Rate 100 05/09/24 12:57 Respiratory Rate 20 05/09/24 12:57 Blood Pressure 145/87 H 05/09/24 12:57 Pulse Oximetry 98 05/09/24 12:57 Oxygen Delivery Room Air 05/09/24 12:57 Discharge Plan Discharge Clinical Impression: Recurrent acute otitis media Patient Disposition: Home, Self-Care Condition: Stable Instructions: Antibiotic Form, Ear Infection (ED) Patient Language: Peruvian Prescriptions: New amoxicillin-pot clavulanate 875-125 mg tablet 1 tablet PO Q12H Qty: 20 0RF No Action amitriptyline 25 mg tablet 25 mg PO HS amlodipine 10 mg tablet 10 mg PO HS cholecalciferol (vitamin D3) 25 mcg (1,000 unit) tablet 25 mcg PO HS simethicone [Gas Relief Extra Strength] 125 mg tablet,chewable 125 mg PO QID PRN (Reason: abdominal distention) pantoprazole 40 mg tablet,delayed release (DR/EC) 40 mg PO HS loratadine [Claritin] 10 mg Tablet 10 mg PO HS Linzess 145 mcg capsule 145 mcg PO DAILY albuterol sulfate 90 mcg/actuation HFA aerosol inhaler 2 puff INHALATION Q6H PRN (Reason: shortness of breath or wheezing) metformin 500 mg tablet 500 mg PO BID Follow-up/Referrals: Adore Robins DO [Physician] - Time of Disposition: 14:56
== END 2024-05-09 15:05 | disposition home or self-care (01) ==
PROVIDERS: Emergency Provider Nurse Practitioner
DX: H66.92 Otitis media, unspecified, left ear (principal); Z87.891 Personal history of nicotine dependence; E11.9 Type 2 diabetes mellitus without complications; Z79.84 Long term (current) use of oral hypoglycemic drugs; K21.9 Gastro-esophageal reflux disease without esophagitis; I10 Essential (primary) hypertension; J45.909 Unspecified asthma, uncomplicated; Q17.9 Congenital malformation of ear, unspecified
CPT/HCPCS: 99213; G0463

== ENCOUNTER 2024-06-30 19:00 | Emergency (ER) | payer BC, SELFPAY ==
--- OUTSIDE RECORDS SUMMARY | 2024-06-30 19:03 | XMS_ITS | Clinical Summary ---
Author Organization [facility] Address [facility] [place] [address] Care Team Providers Care Process Improvement Engineer Name Role Phone Starla Parham MD Primary Care Provider [phone] Allergies Active Allergy Reactions Criticality Noted Date [...] patient's age to complete this topic Insurance [place] Care Teams Process Improvement Engineer Relationship Specialty Start Date End Date Starla Parham MD PCP - General FAMILY PRACTICE 11/17/20
--- OUTSIDE RECORDS SUMMARY | 2024-06-30 19:03 | XMS_ITS | Clinical Summary ---
Author Organization [facility] Address [address] [place] [address] Care Team Providers Care Supervisor Dried Yeast Name Role Phone Unavailable Primary Care Provider Unavailabl e Source Comments [facility],non-owned Affiliates and Associated Physician Practices is amultiple site organization consisting of ambulatory clinics and hospital sitesin [place], [place], [place] and [place]. This disclosure is being madepursuant to the Care Everywhere program and may not contain all information available regarding this patient. Last updated 17.[facility] Allergies Active Allergy Reactions Criticality Noted Date [...] complete this topic MENINGOCOCCAL (Group B) VACCINE SHARED DECISION-MAKING Aged Out No longer eligible based on patient's age to complete this topic MENINGOCOCCAL GROUPS A/C/Y/W VACCINE Aged Out No longer eligible based on patient's age to complete this topic
--- OUTSIDE RECORDS SUMMARY | 2024-06-30 19:03 | XMS_ITS | Data Portability ---
Author Organization [facility] JEFFMelinda Address [address] [place] [address] Care Team Providers Care Spine Specialist Name Role Phone ARELY YOUNG Primary Care Provider [phone] Assessment Encounter Date Assessment Date Assessment LastModified by Organization Details LastModified Time 04/15/2024 04/15/2024 Merlene Sterling DO supervised OMT Not available 04/21/2024 13:46:27 Plan of Treatment Reminders Order Date Submit Date Provider Last Modified By Organization Details Last Modified Time Details Appointments None recorded. Lab rapid flu (A+B) 2023 024 [email or web address] In-Office Order, Internal Use Only DO Not Attach Compendium DO Not Attach Compendium, Do Not Delete/merge, [id number] 11:33:14 rapid SARS CoV 2 Ag, QL IA, respiratory specimen 2023 024 [email or web address] In-Office Order, Internal Use Only DO Not Attach Compendium DO Not Attach Compendium, Do Not Delete/merge, [id number] 11:33:13 HbA1c (hemoglobin A1c), blood 2023 024 [email or web address] In-Office Order, Internal Use Only DO Not Attach Compendium DO Not Attach Compendium, Do Not Delete/merge, [id number] 4 22:33:33 H pylori Ag, qual immunoassay , stool 2022 023 CHELSIE [facility], [address], [address], [place], [address], 3 11:11:31 Referral gastroenter ologist referral 2022 023 CHELSIE Matt MD, [address], [place], [address], 3 15:17:26 Procedures None recorded. Surgeries None recorded. Imaging NM, hepatobilia ry scan 2023 024 [email or web address] [facility] Scheduling, [address] [facility], [place], [address], 4 12:08:22 Medication Orders albuterol sulfate HFA 90 mcg/actuati on aerosol inhaler 2024 025 azamarion e[facility] [address], [address], 5 09:09:51 doxycycline hyclate 100 mg capsule 2024 025 [facility] [address], [address], 5 11:45:31 Zofran 4 mg tablet 2023 024 [facility] [address], [address], 4 11:56:39 benzonatate 200 mg capsule 2023 025 [facility] [address], [address], 5 12:02:05 albuterol sulfate HFA 90 mcg/actuati on aerosol inhaler 2023 024 rgriffon [facility] [address], [address], 11:33:12 amlodipine 10 mg tablet 2023 024 [email or web address] [facility] [address], [address], 14:22:14 ondansetron HCl 4 mg tablet 2022 024 [id number], [address], [place], [address], 09:12:15 Patient TargetsNo targets recorded. Patient Instructions Encounter Date Encounter Id Patient Instructions Last Modified By Organization Details Last Modified Time 12/06/2022 [id number] A healthy lifestyle: care instructions [email or web address] Not available 12/09/2022 23:04:01 On the date of this encounter, I was available to assist the resident in the care of the patient, and have reviewed and agree with the resident s findings and plan of care. ---MARIAELENA [email or web address] Not available 12/15/2022 11:00:02 09/27/2023 [id number] A healthy lifestyle: care instructions [email or web address] Not available 09/27/2023 09:25:51 Attending Physician Attestation I did not personally see or examine the patient with the resident. I was physically present to provide indirect supervision through entire encounter. I have reviewed the documentation and agree with the history, physical findings, work-up, and medical decision making as recorded. Devi Gold MD [email or web address] Not available 09/27/2023 10:18:18 03/18/2024 [id number] Attending Physician Attestation I did not personally see or examine the patient with the resident. I was physically present to provide indirect supervision through entire encounter. I have reviewed the documentation and agree with the history, physical findings, work-up, and medical decision making as recorded. MD debo Bunch Not available 03/18/2024 11:53:13 04/08/2024 [id number] A healthy lifestyle: care instructions [email or web address] Not available 04/10/2024 11:45:29 I personally saw and examined the patient with the resident. I agree with the note and plan as documented. Jacklyn Bal MD. [facility] [email or web address] Not available 04/08/2024 12:30:38 04/15/2024 [id number] I was present in the room with the patient and resident at the time of assessment and treatment. I agree with the plan. Merlene Sterling DO Not available 04/21/2024 13:46:55 Reason for Referral Director Surface Transportation Referral for Nausea Referring Physician: Starla Parham, Train System Operator, Encounter Date: 12/06/2022 Results Created Date Observation Date Name Description Value Unit Range Abnormal Flag Note LastModifiedBy Organization Detail LastModifiedTime 11/14/1911/13/2022 HbA1c (hemo globi n A1c), blood HbA1c 5.9 Not Available In-Office Order Internal Use Only DO Not Attach Compendium DO Not Attach Compendium, Do Not Delete/merge, [id number] 11/13/2022 16:48:58 12/07/1912/06/2022 BASIC METAB OLIC PANEL (8) glucose 98 mg/dL 70-99 Not Available [facility] [place] Department [address] [place], [address], 12/07/2022 00:07:28 12/07/1912/06/2022 BASIC METAB OLIC PANEL (8) BUN 10 mg/dL 6-20 Not Available [facility] Department [address] [place], [address], 12/07/2022 00:07:28 12/07/19 23 12/06/2022 BASIC METAB OLIC PANEL (8) creatinine 0.69 mg/dL 0.76-1 .27 below low normal Not Available [facility] Department [address] [place], [address], 12/07/2022 00:07:28 12/07/19 23 12/06/2022 BASIC METAB OLIC PANEL (8) eGFR 124 >=60 Units for eGFR value s are mL/mi n/1.7 3 The eGFR Calcu latio n has not been valid ated for patie nts under the age of 18. If test resul ts are displ ayed for a patie nt under the age of 18, disre maite that value . Not Available [facility] Department [address] [place] [address], [address], 12/07/2022 00:07:28 12/07/19 23 12/06/2022 BASIC METAB OLIC PANEL (8) BUN/creatini ne ratio 14 9-20 Not Available [facility] Department [address] [place] [address], [address], 12/07/2022 00:07:28 12/07/19 23 12/06/2022 BASIC METAB OLIC PANEL (8) sodium 136 mmol/ L 134-14 4 Not Available [facility] Department [address] [place] [address], [address], 12/07/2022 00:07:28 12/07/19 23 12/06/2022 BASIC METAB OLIC PANEL (8) potassium 4.0 mmol/ L 3.5-5. 2 Not Available [facility] Department [address] [place] [address], [address], 12/07/2022 00:07:28 12/07/19 23 12/06/2022 BASIC METAB OLIC PANEL (8) chloride 101 mmol/ L 96-106 Not Available [facility] Department [address] [place], [address], 12/07/2022 00:07:28 12/07/19 23 12/06/2022 BASIC METAB OLIC PANEL (8) carbon dioxide, total 25 mmol/ L 20-29 Not Available [facility] Department [facility] [place], [address], 12/07/2022 00:07:28 12/07/19 23 12/06/2022 BASIC METAB OLIC PANEL (8) calcium 9.6 mg/dL 8.7-10 .2 Not Available [facility] [place], [address], 12/07/2022 00:07:28 09/27/19 24 09/27/2023 HbA1c (hemo globi n A1c), blood HbA1c 6.0 Not Available In-Office Order Internal Use Only DO Not Attach Compendium DO Not Attach Compendium, Do Not Delete/merge, [id number] 09/27/2023 10:01:48 03/18/20 24 03/18/2024 rapid SARS CoV 2 Ag, QL IA, respi rator y speci men rapid SARS CoV 2 Ag, QL IA, respiratory specimen negati ve Not Available In-Office Order Internal Use Only DO Not Attach Compendium DO Not Attach Compendium, Do Not Delete/merge, [id number] 03/18/2024 10:54:17 03/18/20 24 03/18/2024 rapid flu (A+B) Flu A negati ve Not Available In-Office Order Internal Use Only DO Not Attach Compendium DO Not Attach Compendium, Do Not Delete/merge, [id number] 03/18/2024 10:54:16 03/18/20 24 03/18/2024 rapid flu (A+B) Flu B negati ve Not Available In-Office Order Internal Use Only DO Not Attach Compendium DO Not Attach Compendium, Do Not Delete/merge, [id number] 03/18/2024 10:54:16 04/03/1903/20/2024 CT, abdom en + pelvi s, w/ contr ast No observ ation record ed. [email or web address] [address] [place], [address], 04/03/2024 09:58:53 Result Notes None recorded. 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 ARELY YOUNG MD Attn: Rosy g,[address] [facility], [place], [address], [facility] - [facility] 4 09:39:51 Obstructiv e sleep apnea syndrome 51084860 Active 2020 Denisha Uri[place] 1 14:40:00 COVID-19 397669495 Active 2021 Cosmo Valverde null, [facility] SI 2 17:44:52 Hypertensi ve disorder 76046449 Active 2021 Starla Parham MD Attn: Rosy gonzalez,[address] [facility], [place], [address], [facility] - SI 2 22:15:53 Obesity 982497370 Active 2021 Starla Parham MD Attn: Rosy gonzalez,[address] [place], [address], [facility] - [place] 2 22:16:02 Radial styloid tenosynovi tis 80330581 Active 2023 ARELY YOUNG MD Attn: Rosy gonzalez,[address] [facility], [place], [address], [facility] - [place] 4 09:24:31 Tubular adenoma of colon 891188293 Active 202307/15/2023 tubular adenoma polyp in the transverse colon ARELY YOUNG MD Attn: Rosy gonzalez,[address] [place], [address], [facility] - [place] 4 14:42:34 Mild intermitte nt asthma 235494624 Active 2023 ARELY YOUNG MD Attn: Rosy gonzalez,[address] [place], [address], [facility] - SI 4 10:53:38 Problem Notes None recorded. Procedures Surgical History Date Name Laterality Status Provider Name and Address Organization Details Recorded Time 04/15/19 25 Generic Procedure completed ANJELICA ZAMORA DO Attn: Accounting, [address] [place], [address], [facility] - SI 04/20/2024 14:40:20 03/21/20 24 Cholecystectomy completed Dee ARIEL [place] 04/15/2024 10:50:39 07/27/19 21 Diabetic Foot Exam completed Denisha Uriarte [place] 08/01/2020 00:33:16 11/30/19 20 Skin Tag Removal completed Cosmo Valverde [place] 11/30/2019 16:42:21 Carpal tunnel surgery completed Vielka Millard [place] 09/27/2023 09:13:16 colonoscopy completed Vielka Millard [place] 09/27/2023 09:13:23 decompression of ulnar nerve at elbow completed ARELY YOUNG MD Attn: Accounting, [address] , [place], [address], [facility] - [place] 09/27/2023 09:25:13 Imaging Results Imaging Date Name Status LastModified by Organiz ation Details LastModified Time 03/20/2024 CT, abdomen + pelvis, w/ contrast completed [address] [place], [address], 04/03/2024 09:58:53 Procedure Notes None recorded. Medical Equipment None Reported. Allergies Allergen ID Allergen Name Allergen Category Reaction Reaction Severity Criticality Documentation Date Start Date Code Code System Note Provider Name and Address Organization Details Recorded Time 622579 morphine medicatio n decreased blood pressure severe Not available 11/23/2019 7052 RxNorm Not Available Not Available Not Available 325221 lisinopri l medicatio n cough Not available Not available 11/13/2022 81952 RxNorm Not Available Not Available Not Available Medications Name Sig Start Date Stop Date Status Note LastModified by Organization Details LastModified Time atorvasta tin 40 mg tablet TAKE 1 TABLET BY MOUTH EVERY DAY 09/26 completed Not Available Not Available Not Available metformin 500 mg tablet take 1 tablet by mouth twice a dayLA ST REFILL UNTIL APPOINTM ENT IS MADE AND KEPT 2024 active Not Available Not Available Not Avai lable doxycycli ne hyclate 100 mg capsule TAKE [...] Updated DateTime 3 180.34 cm 43.3 kg/m2 003923. 03 g 86 /min 99 % 99 % 97.4 [degF] 144 mm[Hg] 95 mm[Hg] Al Burrell MA [facility] 3 10:38:30 Date Recorded Systolic blood pressure Diastolic blood pressure Provider Name and Address Organization Details Last Updated DateTime 12/06/2022 138 mm[Hg] 89 mm[Hg] Starla Parham MD Attn: Accounting,[address] [place], [address], [facility] 12/06/2022 11:15:26 Date Recorded Body height Body mass index (BMI) Body weight Body temperature Heart rate Respiratory rate Systolic blood pressure Diastolic blood pressure Provider Name and Address Organization Details Last Updated DateTime 4 180.34 cm 44.2 kg/m2 759092. 78 g 98.3 [degF] 86 /min 20 /min 140 mm[Hg] 80 mm[Hg] Vielka Millard MA [facility] 4 09:10:30 Date Recorded Body height Body mass index (BMI) Body weight Oxygen saturation Oxygen saturation in Arterial blood by Pulse oximetry Heart rate Respiratory rate Body temperature Systolic blood pressure Diastolic blood pressure Provider Name and Address Organization Details Last Updated DateTime 4 180.34 cm 45.6 kg/m2 009513. 75 g 99 % 99 % 80 /min 18 /min 99 [degF] 130 mm[Hg] 80 mm[Hg] Vielka Millard MA [facility] 4 10:17:17 Date Recorded Body height Body mass index (BMI) Body weight Body temperature Heart rate Respiratory rate Oxygen saturation Oxygen saturation in Arterial blood by Pulse oximetry Systolic blood pressure Diastolic blood pressure Provider Name and Address Organization Details Last Updated DateTime 5 180.34 cm 44.9 kg/m2 344045. 14 g 98.3 [degF] 110 /min 18 /min 97 % 97 % 128 mm[Hg] 80 mm[Hg] Vielka Millard MA [facility] 5 11:30:30 Date Recorded Body height Body mass index (BMI) Body weight Heart rate Body temperature Respiratory rate Oxygen saturation Oxygen saturation in Arterial blood by Pulse oximetry Systolic blood pressure Diastolic blood pressure Provider Name and Address Organization Details Last Updated DateTime 5 180.34 cm 45.1 kg/m2 228717. 05 g 108 /min 99.2 [degF] 20 /min 97 % 97 % 143 mm[Hg] 91 mm[Hg] ARIEL Hendrickson [facility] 5 10:54:07 Social History Question Answer Notes LastModified by Organizat ion Details LastModified Time Tobacco Smoking Status Never Smoker Misti Beckford MA [facility] 11/23/2019 09:33:19 What Is Your Level Of [...] completed ARELY YOUNG MD Attn: Accounting,[address] [place], [address], [place] [facility] 03/18/2024 10:52:27 COVID-19, mRNA, LNP-S, PF, 100 mcg/0.5mL dose or 50 mcg/0.25mL dose 1 completed ARELY YOUNG MD Attn: Accounting,[address] [place], [address], [place] [facility] 03/18/2024 10:52:27 Influenza, split virus, quadrivalent, preservative 8 completed ARELY YOUNG MD Attn: Accounting,[address] [facility], [place], [address], [facility] 03/18/2024 10:52:27 Hep A, adult 2 completed ARELY YOUNG MD Attn: Accounting,[address] [facility], [place], [address], [facility] 03/18/2024 10:52:27 Past Encounters Encounter ID Performer Location Encounter Start Date Encounter Closed Date Diagnosis/Indication Diagnosis SNOMED-CT Code Diagnosis ICD10 Code Diagnosis Note [id number] López sommers MD [place] [address] [address] 11/23/2019 09:25:40 11/25/2019 12:28:03 Diabetes mellitus 82153598 E11.9 Last A1C:{{less than 7.0% 7-8%* 8-9% [...] and increased activity Acute left otitis media 242729048 H66.92 acute on chronicTM bludging with middle ear fluid -augmentin rx sent Multiple skin tags 57057 7009 L91.8 multiple on neck and large pedunculat ed on right shoulder -patient to schedule with procedure clinic [id number] Aimee rodarte MD [place] [address] [address] [facility] [address] [place] [address] 11/30/2019 13:45:44 11/30/2019 19:41:28 Multiple skin tags 923165636 L91.8 Patient presents to clinic for removal [...] tag sent to lab for pathologic analysis. [id number] Harman Hyman MD [place] [address] [address] [facility] [address] [place] [address] 07/26/2020 14:14:14 08/01/2020 11:55:37 Morbid obesity 868672067 E66.01 BMI: 42.6 -Discussed Mediterran reji diet and physical activity Diabetes mellitus 960460 09 E11.9 Type II, chronicLas t A1C:{{less [...] to patient Paresthesi a of lower extremity 059342253 R20.2 NO history of recent illness Most likely due to diabetes consider electrolyt e abnormalit ies -BMP and Magnesium ordered -recommned ed to take OTC magnesium Neuropathy 052202921 G62 .9 Most likely due to diabetes abnormal foot exam -gabapenti n ordered -recommend ed patient schedule with podiatry, informatio n given ot patient Chronic low back pain 27 6417668 M54.5 Chronic, NO red flag symptoms Exam remarkable for tight hips and lower paraspinal muscles -referral to physical therapy placed [id number] López sommers MD [place] [address] [address] 11/11/2020 09:41:32 11/14/2020 08:56:38 Cholelithiasis without obstruction 89009197 K80.20 Acute on chronic.-F ollow up scheduled with markie on 11/28/20-Pa in control with small amount of hydrocodon e.-Miralax for constipati on-Work up as below-Stri ct return precaution s for worsening pain or sxs of sepsis Overweight 489244692 E66 .3 Depressive disorder 3548 9007 F32.9 PHQ9=11 likely worse dt ongoing painDenies SI HIRTC following above surgical consultati on [id number] [place] [address] [address] 12/29/2020 11:31:20 12/29/2020 16:16:49 Accident while engaged in work-related activity 43548979 X58.XXXA Notes sending medical bills Injury of shoulder region 023334813 S49.91XA Poor strength, especially with external rotation. [...] pre-proced ure dose of benzo- Ortho urgently [id number] Chelsie Jenkins MD [facility] [address] [facility] [address] [place] [address] 03/16/2021 15:47:13 03/16/2021 20:47:20 Morbid obesity 166931752 E66.01 - encouraged drinking fewer sugary drinks and cutting down on sweets- encouraged more fruits and veggies in diet, as well as exercising for at least 30 min 3-4x/wk Diabetes mellitus 120290 09 E11.9 Last A1C:{{less than 7.0% 7-8% [...] 11 12} } {{week(s) month(s)*} } Neuropathy 378878474 G62 .9 - notes pins and needles sensation in bilateral feet- says gabapentin has been helping his diabetic neuropathy Right uppe r quadrant pain 570718995 R10.11 - pt has been having dull [...] send to GI for further work up [id number] ALLISON TAVAREZ MD [place] [address] [address] [facility] [address] [place] [address] 05/30/2021 15:17:10 06/02/2021 08:07:43 Acute sinusitis 80086336 J01.90 Acute, 3-4 days with fever. Likely viral in etiology and draining into lungs and esophagus leading to gastritis and bronchitis .- Discussed viral course and reassuranc e- Supportive care with tylenol/ib uprofen for fever- Nasal corticoste roid to reduce inflammati on/mucus- RTC precaution s Acute bronchitis 9273593 2 J20.9 Hx of asthma as childhood, chronic bronchitis . No smoking history. No DYLLAN on-hand.- Albuterol to help relax airways- CXR steve if non-improv ing fever, chest tightness to eval PNA- RTC precaution s Nausea and vomiting 1693 2000 R11.2 Likely gastric irritation from mucus drainage. [id number] MD Angela Mtz [address] [address] 08/07/2021 08:29:38 08/08/2021 11:23:03 COVID-19 124074590 U07.1 Sx began 08/03, positive home COVID [...] pt to get COVID booster when possible [id number] MD Angela Mackey [address] [address] 08/10/2021 13:31:42 08/11/2021 13:37:13 COVID-19 364390141 U07.1 F/u COVID+; symptoms began 08/03, positive [...] F/u w/ PCP in 1mo, sooner PRN. [id number] SATNAM CLARK DO [facility] [address] [facility] [address] [place] [address] 10/27/2021 16:41:35 10/30/2021 13:54:49 Diabetes mellitus 09670463 E11.9 Last A1C:{{less than 7.0% 7-8% 8-9% [...] for high intensity dosage Hypertensive disorder 38 741506 I10 BP Goal: {{Less than 140/90* Le [...] establish baseline Obstructiv e sleep apnea syndrome 99489014 G47.33 - previously diagnosed, never received CPAP- will refer to pulm for CPAP Obesity 775029445 E66.9 - BMI >35- encouraged drinking fewer sugary drinks and cutting down on sweets- encouraged more fruits and veggies in diet, as well as exercising for at least 30 min 3-4x/wk- GI told him he would be a good candidate for bariatric surgery, will refer there Inattention 39036748 R41 .840 - concern for ADHD with inattentio n- will administer IRIS-7 and PHQ-9 at next visit to r/o IRIS and MDD before sending to psych Perforatio n of tympanic membrane 70496871 H72.02 - left ear was impacted with cerumen and irrigation was started- pt complained of pain and popping in his ear so irrigation was stopped- upon inspection , TM ruptured with only a small crescent of TM along right lower border present- will send to ENT for possible surgical repair if does not heal spontaneou sly [id number] Jonnathan Anna MD [facility] [address] [place] [address] [place] [address] 11/13/2022 15:46:36 11/19/2022 15:52:55 Diabetes mellitus 34563433 E11.9 Last A1C:{{less than 7.0% 7-8% 8-9% [...] } {{week(s) month(s)*} } Hypertensive disorder 38 155028 I10 BP Goal: {{Less than 140/90* Le [...] benefit in DM2- due for labs Hyperlipidemia 18336852 E78.5 - needs refills Morbid obesity 848669632 E66.01 - encouraged drinking fewer sugary drinks and cutting down on sweets- encouraged more fruits and veggies in diet, as well as exercising for at least 30 min 3-4x/wk Depressive disorder 3548 9007 F32.A - PHQ9 = 11- denies HI/SI- pt declines wanting to start antidepres shivani or therapy, prefers watchful waiting [id number] [facility] [address] [facility] [address] [place] [address] 12/06/2022 10:14:20 12/10/2022 14:09:24 Nausea 468126025 R11.0 - pt with chronic nausea without [...] relief Tenosynovi tis of left radial styloid 8796209875 5258135 M65.4 - pt with left Dequervain 's tenosynovi tis, currently wearing wrist brace- encouraged to continue using brace and schedule NSAID use for 7d- will consider injection if pain persists after 3-4 weeks of conservati ve therapy Morbid obesity 649824138 E66.01 - did not discuss in detail at this visit [id number] MD Fly BUNCH 14 IM [address] [facility] [address] [place] [address] 09/27/2023 08:54:48 10/08/2023 12:43:10 Morbid obesity 483796009 E66.01 Healthy lifestyle encouraged including regular exercise of at least 150min per week, diet rich in plant based foods and low in added sugars, processed carbohydra sarath, and high salt foods. Pain of ear 670351721 H9 2.09 Likely eustachian tube dysfunctio n [...] desired. Gastroesop hageal reflux disease without esophagitis 679014551 K21.9 Has been following with Dr. Matt for intermitte nt abdominal pain. Was being evaluated for IBS vs biliary dyskinesia . Had ordered HIDA scan but was unable to schedule at [place] . Will order at [facility]. Had known esophagiti s on EGD and is taking amitripyli ne and omeprazole . Type 2 reji betes mellitus 08161470 E11.9 Diagnosed in 2019. Initially was on insulin then changed diet and is now only on metformin 1000 mg BID. Labs done on 09/16 with normal CMP and normal creatinine . Essential hypertension 77877612 I10 BP elevated at 140/80. Will increase amlodipine to 10 mg. Will take BP 1-2 times weekly and keep log. Follow up in 1 month. Lateral ep icondylitis of right humerus 8260389613 53891 M77.11 Was given steroid injection 08/2023 by plastics. Following with occupation al therapy. Pain in the right elbow likely lateral epicondyli tis. Given up to date handout on helpful hints and education. [id number] MD Fly BUNCH 14 [address] [facility] [address] [place] [address], [place] [address] 03/18/2024 10:04:46 03/27/2024 11:36:21 Mild intermittent asthma 392129907 J45.20 Needs refill for albuterol. No wheezing noted on exam today. Upper resp iratory infection 14335906 J06.9 5 day hx of cough, congestion , diarrhea likely viralWill give zofran for nausea and benzonatat e for cough.Tyle nol and ibuprofen for chest wall pain.Flu/C OVID negativeWo rk note given.Will call for fever, worsening symptoms, uncontroll ed vomiting, or if symptoms persist past this week. [id number] MD Fly [place] 14 IM 4 [facility] [facility] [address] [facility] [address] [place], [place] [address] [address] 04/08/2024 11:17:24 04/10/2024 15:35:12 Morbid obesity [id number] E66.01 Healthy lifestyle encouraged including regular exercise of at least 150min per week, diet rich in plant based foods and low in added sugars, processed carbohydra sarath, and high salt foods. Encouraged protein intake mostly with chicken and white fish and limited red meat. Community acquired pneumonia [id number] J18.9 Given tachycardi a, worsening SOB and productive cough, will treat with 5 days of doxycyclin e for CAPReturn and ED precaution s discussedI nstructed to continue using incentive spirometry as much as possible Mild inter mittent asthma [id number] J45.20 Hx of asthmaNeed s refill on albuterol inhalerIns tructed to use inhaler every 4 hours for the next 2-3 days and as neededCan back off when SOB improvesRe turn and ED precaution s discussed Meralgia p aresthetica of left leg [id number] G57.12 physical exam suggestive of meralgia parestheti ca likely from being in a hospital bed for long period of timeDiscus sed conservati ve management including wearing lose fitting clothesMig ht benefit from OMT, will schedule in OMT clinic [id number] Merlene Howe 14 IM 4 [facility] [place] [address] 04/15/2024 10:38:23 04/23/2024 10:57:48 Community acquired pneumonia [id number] J18.9 Given tachycardi a, worsening SOB and productive cough, treated with 5 days of doxycyclin e for CAP at last visitInstr ucted to continue using incentive spirometry as much as possibleFe jamel barakat little isamarCont inue to monitor improvemen tFollow up in 1 month Mild inter mittent asthma [id number] J45.20 Hx of asthmaprn albuterol inhalerCon tinue ICSReturn and ED precaution s discussed Meralgia p aresthetica of left leg [id number] G57.12 physical exam suggestive of meralgia parestheti ca likely from being in a hospital bed for long period of timeDiscus sed conservati ve management including wearing lose fitting clothesPer formed OMT todayGiven home exercises and anticipato ry guidance 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 Treated with [...] Contreras Member ID Guarantor Name 12/06/2022 2 [facility] (MEDICAID HMO) [id number] Oscar Rehman [id number] Oscar Rehman 12/06/2022 1 [place] [id number] 1 Oscar Rehman [id number] Oscar Rehman 09/27/2023 1 [place] [id number] 1 Oscar Rehman [id number] Oscar Rehman 03/18/2024 1 [place] [id number] 1 Oscar Rehman [id number] Oscar Rehman 04/08/2024 1 [place] [id number] 1 Oscar Rehman [id number] Oscar Rehman 04/15/2024 1 [place] [id number] 1 Oscar Rehman [id number] Oscar Rehman Notes Date Note Type Note [...] swelling. KATHRINE CROWLEY DO Attn: Accounting,[address] [facility], [place], [address], [place] - [facility] 12/15/2022 11:00:05 09/27/2023 text/html Oscar is a 37-year-old male who presents to the clinic to establish care. Was previously seen in [place] by PCP and GI. 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 Left ear painHas congenital deformity to right [...] surgery. Planning surgery. Is wearing splint daily. DEVI GOLD MD Attn: Accounting, [address] [place], [address], [facility] 10/07/2023 09:48:54 03/18/2024 text/html Oscar is a [...] and congestion medication. DEVI GOLD MD Attn: Accounting, [address] [facility], [place], [address], [facility] 03/26/2024 22:11:39 04/08/2024 text/html 38 yo M presents to clinic after cholecystectomy 3 weeks ago at [place] complicated by infection and pneumonia. He was [...] Saturday. Katie Bal MD Attn: Accounting, [address] [place], [address], [place] [facility] 04/10/2024 12:28:51 04/15/2024 text/html 38 yo M presents to clinic for follow up and OMT Had cholecystectomy 1 month ago at [place] complicated by infection and pneumonia. He was [...] surgery for follow up tomorrow. Merlene carbajal, [facility] 04/21/2024 13:47:13
--- OUTSIDE RECORDS SUMMARY | 2024-06-30 19:03 | XMS_ITS | Clinical Summary ---
Author Organization [facility] at the [facility] Office Center Address [address] [place] [address] Care Team Providers Care Lab Analyst Name Role Phone Nikky Cunningham MD [...] mouth daily 90 tablet 3 12/11/19 24 2024 Active linaCLOtide (LINZESS) 145 mcg capsule Take 1 capsule (145 mcg total) by mouth daily 90 capsule 3 03/03/20 24 Active hydrocortisone (ANUSOL-HC) 25 mg suppository Insert 1 suppository (25 mg total) into the rectum 2 (two) times a day as needed for hemorrhoids 24 suppository 3 03/03/20 24 2024 Disconti nued(Sto p Taking at Discharg e) Active Problems Problem Noted Date Diagnosed Date BRBPR (bright red blood per rectum) 05/22/2024 Rectal pain 05/22/2024 Hemorrhoids 05/22/2024 Hepatic steatosis 12/03/2023 RUQ pain 12/03/2023 Nausea [...] 02/05/2019 Type 2 diabetes mellitus without complication Asthma 07/26/2017 Assessment & Plan (10/05/2019 4:50 PM CDT): Patient has mild intermittent asthma and is on p.r.n. albuterol inhaler active will be continued. I will check IgE level. He complains of cough with sinus drainage. I will start him on Zyrtec. Obtain full set of PFTs before next visit. Irritable bowel syndrome 07/26/2017 Encounters Date Type Department Care Team Description 06/24/2024 11:34 AM CDT Anesthesia Event [address] [address] Alisha Hidalgo MD 06/24/2024 11:00 AM CDT - 06/24/2024 11:30 AM CDT Surgery [address] [address] Allan Peñaloza MD SIGMOIDOSCOPY 06/24/2024 9:24 AM CDT - 06/24/2024 12:45 PM CDT Hospital Encounter [address] [address] Allan Peñaloza MD Discharge Disposition: Discharge to home or self care 05/28/2024 Telephone [facility] Gastroenterology at [address] [place] [address] Allyn Johnson Sigmoidoscopy Reschedule 05/22/2024 Telephone [facility] Gastroenterology at [address] [place] [address] Allyn Johnson Schedule Sigmoidoscopy from Last 3 Months Immunizations Immunization Administration Dates Next Due Influenza, Quadrivalent, Split, Intramuscular Surgical History Surgery Date Site/Laterality Comments COLONOSCOPY 06/24/2024 Medical History Medical History Date Comments Asthma Hypertension Diabetes mellitus (HCC) Type 2 diabetes mellitus (HCC) Family History Medical History Relation [...] = 0.6 oz pur e alcohol) rarely [facility] Utilities Answer Date Recorded In the [...] any clubs o r organizations such as adventism groups, unions, fraternal or athletic groups, or [...] making you feel afraid or unsafe? Denies 06/24/2024 Education Answer Date Recorded What is the highest level of school you have completed or the highest degree you have received? 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 Gender Identity Not on file Sexual Orientation Not on file Obstetrics History Last Filed Vital Signs Vital Sign Reading Time Taken Comments Blood Pressure 153/105 06/24/2024 12:29 PM CDT Pulse 93 06/24/2024 12:29 PM CDT Temperature 37.1 C (98.7 F) 06/24/2024 12:29 PM CDT Respiratory Rate 18 06/24/2024 12:29 PM CDT Oxygen Saturation 100% 06/24/2024 12:29 PM CDT Inhaled Oxygen Concentration - - Weight 136.1 kg (300 lb) 06/24/2024 9:40 AM CDT Height 180.3 cm (5' 11 ) 06/24/2024 9:40 AM CDT Body Mass Index 41.84 06/24/2024 9:40 AM CDT Plan of Treatment Health Maintenance Due Date Last Done Comments Albumin Creatinine Ratio, Urine 1985 Depression Screening 1985 Dilated Eye Exam 1987 Foot Exam 1987 DTaP/Tdap/Td Vaccine (1 - Tdap) 10/21/1998 Varicella Vaccines (1 of 2 - 13+ 2-dose series) 10/21/2000 Hepatitis B Screening 10/21/2005 Regular Well Visit/Exam 18-64 10/21/2005 Pneumococcal vaccine <65 (1 of 2 - PCV) 10/21/2006 Hemoglobin A1C 03/26/2020 09/25/2019 Lipid Panel 09/24/2020 09/25/2019 Covid-19 Vaccine (3 - season) 2023 03/03/2021, 02/03/2021 Influenza Vaccine (#1) 2023 01/30/2018 eGFR 03/20/2025 03/20/2024, 08/30, 06/20/2023, Additional history exists Hepatitis C Screening Completed 09/25/2019 HPV Vaccines Aged Out No longer eligi ble based on patient's age to complete this topic Procedures Procedure Name Priority Date/Time Associated Diagnosis Comments SIGMOIDOSCOPY 06/24/2024 11:29 AM CDT BRBPR (bright red blood per rectum) Rectal pain Hemorrhoids, unspecified hemorrhoid type POCT GLUCOSE DEVICE Routine 06/24/2024 1 0:12 AM CDT FLEXIBLE SIGMOIDOSCOPY 5 9:42 AM CDT EGFR STAT 03/20/2024 3:08 AM PRODUCT DESIGN SPECIALIST HEPATITIS PANEL, ACUTE Routine 0 7:23 AM CDT HEMOGLOBIN A1C Routine 09/25/2019 4:25 AM CDT LIPID PANEL Routine 09/25/2019 4:25 AM CDT from Last 3 Months or Most Recently Relevant to Health Maintenance Results * POCT glucose (06/24/2024 10:12 AM CDT) Glucose, POC 139 70 - 199 mg/dL Blood 06/24/2024 10:1 2 AM CDT 06/24/2024 10:12 AM CDT us Allan Peñaloza MD LAB POCT ORDERABLES - GARRETT CE Final Result JUSTYNA DAHL FLY 1 [facility] [place] [address] * Flexible Sigmoidoscopy (06/24/2024 9:42 AM CDT) Anatomical Region Laterality Modality Other Narrative Procedure Note Allan Peñaloza MD - 06/24/2024 9:42 AM CDT [facility] Patient Name: Oscar Rehman Procedure Date: 06/24/2024 9:42 AM Date of : 1985 Admit Type: Outpatient Age: 38 Gender: Male Attending MD: Allan Peñaloza M.D. Room: [facility] ENDOSCOPY ROOM 1 Note Status: Finalized Patient Profile: This is a 38 year old male. Patient had recurrent episodes of bright red bleeding per rectum. He had full colonoscopy in 2023. History of adenomapolyps. A grandparent had cancer. Bleeding is associated with rectal pain. He has chronic irregular bowelmovements between constipation and diarrhea. Procedure: Flexible Sigmoidoscopy Indications: Rectal hemorrhage Referring MD: Nikky Cunningham M.D. Providers: Allan Peñaloza M.D. Impression: - Anal fissure found on perianal exam. - Internal hemorrhoids. - No specimens collected. Recommendation: - Continue present medications. - Start fissure ointment, nitroglycerin 0.4%ointment, twice daily for 6 weeks. Medicines: Monitored Anesthesia Care Complications: No immediate complications. Estimated Blood Loss: Estimated blood loss: none. Procedure: Pre-Anesthesia Assessment: - Prior to the procedure, a History and Physicalwas performed, and patient medications and allergieswere reviewed. The patient's tolerance of previous anesthesia was also reviewed. The risks andbenefits of the procedure and the sedation options and risks were discussed with the patient. All questions were answered, and informed consent was obtained. Prior Anticoagulants: The patient has taken noanticoagulant or antiplatelet agents. ASA Grade Assessment: Per anesthesia note and evaluation. After reviewing the risks and benefits, the patient was deemed in satisfactory condition to undergo the procedure. The benefits, risks, and alternatives to theprocedure and sedation were discussed and informed consentwas obtained.The bowel preparation used was Miralax via extended prep with split dose instruction. The Endoscope [id number]-[id number] was introduced through the anus and advanced to the the descending colon.The quality of the bowel preparation was good. Findings: An anal fissure was found on perianal exam. The rectum, sigmoid colon and descending colon appeared normal. Internal hemorrhoids were found during retroflexion. The hemorrhoids were small two medium-sized. Electronically signed by Allan Peñaloza M.D. Allan Peñaloza M.D. 06/24/2024 12:07:05 PM Number of Addenda: 0 Note Initiated On: 06/24/2024 9:42 AM Procedure Code(s): --- Professional --- [address]9632, Sigmoidoscopy, flexible; diagnostic, including collection of specimen(s) by brushing or washing, when performed (separateprocedure) Diagnosis Code(s): --- Professional --- K60.2, Anal fissure, unspecified K64.8, Other hemorrhoids K62.5, Hemorrhage of anus and rectum CPT copyright 2020 [employer]. All rights reserved. The codes documented in this report are preliminary and upon math tutor reviewmay be revised to meet current compliance requirements. Recognized by the [place] [employer] for promoting quality in endoscopy Allan Peñaloza MD ENDOSCOPY PROCEDURES Final Result * eGFR (03/20/2024 3:08 AM PRODUCT DESIGN SPECIALIST) eGFR >90 >=60 mL/min/1. 73 m2 Comment: [...] last reviewed 2021. Blood 03/20/2024 3:08 AM PRODUCT DESIGN SPECIALIST 03/20/2024 3:18 AM PRODUCT DESIGN SPECIALIST Aren Gomez MD LAB BLOOD ORDERABLES Final R esult [facility] [address] [facility] [place] [employer] [address] * Hepatitis panel, acute (09/25/2019 7:23 AM CDT) HepBsAg NONREACT NONREACTIVE [facility] Comment: Siemens CentaurXP using TAMMY (chemiluminescent immunoassay) technology. NONREACTIVE: IgM antibodies to Hepatitis B Surface antigen not detected. REACTIVE: IgM antibodies to Hepatitis B Surface antigen detected. Reactive results will be confirmed by neutralization testing. HBsAb qn 129.36 mIU/mL [facility] Comment: Siemens CentaurXP using TAMMY (chemiluminescent immunoassay) technology. 9.99 IU/L or less.....NONREACTIVE: IgM antibodies to Hepatitis B Surface antibody are not detected. 10.00 IU/L or greater..REACTIVE: IgM antibodies to Hepatitis B Surface antibody are detected. Hep B core IgM NONREACT NONREACTIVE [facility] Comment: Siemens CentaurXP using TAMMY (chemiluminescent immunoassay) technology. NONREACTIVE: IgM antibodies to Hepatitis B Core antigen not detected. EQUIVOCAL: IgM antibodies to Hepatitis B Core antigen may or may not be present. Obtain a new specimen and retest. REACTIVE: IgM antibodies to Hepatitis B Core antigen detected. Hep A IgM NONREACT NONREACTIVE [facility] Comment: Siemens CentaurXP using TAMMY (chemiluminescent immunoassay) technology. NONREACTIVE: IgM antibodies to Hepatitis A not detected. This does not exclude possibility of exposure to Hepatitis A or early acute infection. EQUIVOCAL:IgM antibodies to Hepatitis A may or may not be present. Suggest recollection and retest. REACTIVE: Antibodies to Hepatitis A detected. Hep C Ab NONREACT NONREACTIVE [facility] Comment: [...] MICROBIOLOGY - GENERAL OR DERABLES Final Result [facility] [address] [phone] * (ABNORMAL) Hemoglobin A1c (09/25/2019 4:25 AM CDT) Hemoglobin A1c % 9.5(H) 4.0 - 5.6 % [facility] Comment: ADA 2016 GUIDELINES: Initial Diagnostic Criteria HbA1c Result: Interpretation: <5.7% Normal 5.7-6.4% At risk for diabetes mellitus >=6.5% Consistent with diabetes mellitus Diabetes monitoring Target value (ADA Recommended) <7% 09/25/2019 4:25 AM CDT 09/25/2019 5:43 AM CDT Narrative Resulting Agency Comment L[facility]OR[facility] us Anish Solis MD LAB BLOOD ORDERABLES Final Re sult Performing Organization Address City/[facility]/ZIP Co de Phone Number [address] [phone] * (ABNORMAL) Lipid panel (09/25/2019 4:25 AM CDT) Triglycerides 592(H) 0 - 149 mg/dL [facility] Comment: LDL(measured) to follow due to Triglycerides >250 mg/dL. National Lipid Association/NCEP Guidelines: Normal < 150 mg/dL Borderline high 150-199 mg/dL High 200-499 mg/dL Very High >=500 mg/dL Cholesterol 131 0 - 199 mg/dL [facility] Comment: National Lipid Association/NCEP Guidelines: Desirable < 200 mg/dL Borderline high: 200-239 mg/dL High Risk: >=240 mg/dL HDL Cholesterol 20 mg/dL [facility] Comment: Reference Ranges: Males: >=40 mg/dL Females: >=50 mg/dL Cholesterol/HDL Ratio 6.6 [facility] Comment: Optimal < 3.5:1 High > 5:1 09/25/2019 4:25 AM CDT 09/25/2019 5:43 AM CDT Narrative Resulting Agency Comment [facility] us Anish Solis MD LAB BLOOD ORDERABLES Final Re sult [facility] [address] [place] [address], [facility] [phone] from Last 3 Months or Most Recently Relevant to Health Maintenance Insurance [facility] OTHER Address: [address] [address] [employer] [facility] ACCESS CHOICE Advance Directives For more information, please contact: [phone] * Full Code (Latest Code Status on File) Date Activated Date Inactivated Comments 06/24/2024 9:31 AM 06/24/2024 4:57 PM * Full Code Date Activated Date Inactivated Comments 06/24/2024 9:31 AM 06/24/2024 9:31 AM * Full Code Date Activated Date Inactivated Comments 06/19/2023 7:33 PM 06/21/2023 5:05 PM Care Teams Lab Analyst Relationship Specialty Start Date End Date Nikky Cunningham MD [address] [place] [address] [address] [place] [address] PCP - General Family Medicine 03/03/24
--- OUTSIDE RECORDS SUMMARY | 2024-06-30 19:03 | XMS_ITS | Referral Summary ---
Author Organization [facility] Address [address] [place] [address] Care Team Providers Care Stevedoring Superintendent Name Role Phone Nikky Cunningham MD Primary Care Provider Encounters Date Type Department Care Team Description 06/24/2024 11:34 AM CDT Anesthesia Event [address] [address] Alisha Hidalgo MD 06/24/2024 11:00 AM CDT - 06/24/2024 11:30 AM CDT Surgery [address] [address] Allan Peñaloza MD SIGMOIDOSCOPY 06/24/2024 9:24 AM CDT - 06/24/2024 12:45 PM CDT Hospital Encounter [address] [address] Allan Peñaloza MD Discharge Disposition: Discharge to home or self care 05/28/2024 Telephone [facility] Gastroenterology at [address] [id number] Allyn Johnson Sigmoidoscopy Reschedule 05/22/2024 Telephone [facility] Gastroenterology at [address] [phone] Allyn Johnson Schedule Sigmoidoscopy from Last 3 Months Allergies Active Allergy [...] next visit. Irritable bowel syndrome 07/26/2017 Immunizations Immunization Administration Dates Next Due Influenza, Quadrivalent, Split, Intramuscular Social History Tobacco Use Types Packs/Day Years Used Date Smoking Tobacco: Never Smokeless Tobacco: Never Tobacco Cessation:Counseling Given: Not Answered Alcohol Use Standard Drinks/Week Comments Yes 0 (1 standard drink = 0.6 oz pur e alcohol) rarely [facility] Utilities Answer Date Recorded In the past [...] any clubs o r organizations such as confucianism groups, unions, fraternal or athletic groups, or [...] place to sleep or slept in a fpc (including now)? 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 Gender Identity Not on file Sexual [...] 06/24/2024 9:40 AM CDT Plan of Treatment Not on file Procedures Procedure Name Priority Date/Time Associated Diagnosis Comments SIGMOIDOSCOPY 06/24/2024 11:29 AM CDT BRBPR (bright red blood per rectum) Rectal pain Hemorrhoids, unspecified hemorrhoid type POCT GLUCOSE DEVICE Routine 06/24/2024 1 0:12 AM CDT FLEXIBLE SIGMOIDOSCOPY 9:42 AM CDT EGFR STAT 03/20/2024 3:08 AM HOTBED TRANSFER OPERATOR HEPATITIS PANEL, ACUTE Routine 0 7:23 AM CDT HEMOGLOBIN A1C Routine 09/25/2019 4:25 AM CDT LIPID PANEL Routine 09/25/2019 4:25 AM CDT from Last 3 Months or Most Recently Relevant to Health Maintenance Results * POCT glucose (06/24/2024 10:12 AM CDT) Glucose, POC 139 70 - 199 mg/dL Blood 06/24/2024 10:1 2 AM CDT 06/24/2024 10:12 AM CDT Allan Peñaloza MD LAB POCT ORDERABLES - GARRETT CE Final Result [facility] Department of Laboratories [place] [id number] * Flexible Sigmoidoscopy (06/24/2024 9:42 AM CDT) Anatomical Region Laterality Modality Other Narrative Procedure Note Allan Peñaloza MD - 06/24/2024 9:42 AM CDT [facility] Patient Name: Oscar Rehman Procedure Date: 06/24/2024 9:42 AM Date of : 1985 Admit Type: Outpatient Age: 38 Gender: Male Attending MD: Allan Peñaloza M.D. Room: [facility] ENDOSCOPY ROOM 1 Note Status: Finalized Patient [...] with split dose instruction. The Endoscope [id number] was introduced through the anus and advanced [...] 9:42 AM Procedure Code(s): --- Professional --- 68214, Sigmoidoscopy, flexible; diagnostic, including collection of specimen(s) by brushing or washing, when performed (separateprocedure) Diagnosis Code(s): --- Professional --- K60.2, Anal fissure, unspecified K64.8, Other hemorrhoids K62.5, Hemorrhage of anus and rectum CPT copyright 2020 [employer]. All rights reserved. The codes documented in this report are preliminary and upon manager e learning reviewmay be revised to meet current compliance requirements. Recognized by the [employer] for promoting quality in endoscopy Allan Peñaloza MD ENDOSCOPY PROCEDURES Final Result * eGFR (03/20/2024 3:08 AM HOTBED TRANSFER OPERATOR) eGFR >90 >=60 mL/min/1. 73 m2 [...] last reviewed 2021. Blood 03/20/2024 3:08 AM HOTBED TRANSFER OPERATOR 03/20/2024 3:18 AM HOTBED TRANSFER OPERATOR Aren Gomez MD LAB BLOOD ORDERABLES Final R esult [facility] ([place] [place] [address] * Hepatitis panel, acute (09/25/2019 7:23 AM CDT) HepBsAg NONREACT NONREACTIVE [facility] Comment: Siemens CentaurXP using TAMMY (chemiluminescent immunoassay) technology. NONREACTIVE: IgM antibodies to Hepatitis B Surface antigen not detected. REACTIVE: IgM antibodies to Hepatitis B Surface antigen detected. Reactive results will be confirmed by neutralization testing. HBsAb qn 129.36 mIU/mL [facility] Comment: Siemens CentaurXP using TAMMY (chemiluminescent immunoassay) technology. 9.99 IU/L or less.....NONREACTIVE: IgM antibodies to Hepatitis B Surface antibody are not detected. 10.00 IU/L or greater..REACTIVE: IgM antibodies to Hepatitis B Surface antibody are detected. Hep B core IgM NONREACT NONREACTIVE [facility] Comment: Siemens CentaurXP using TAMMY (chemiluminescent immunoassay) technology. NONREACTIVE: IgM antibodies to Hepatitis B Core antigen not detected. EQUIVOCAL: IgM antibodies to Hepatitis B Core antigen may or may not be present. Obtain a new specimen and retest. REACTIVE: IgM antibodies to Hepatitis B Core antigen detected. Hep A IgM NONREACT NONREACTIVE [facility] Comment: Siemens CentaurXP using TAMMY (chemiluminescent immunoassay) technology. NONREACTIVE: IgM antibodies to Hepatitis A not detected. This does not exclude possibility of exposure to Hepatitis A or early acute infection. EQUIVOCAL:IgM antibodies to Hepatitis A may or may not be present. Suggest recollection and retest. REACTIVE: Antibodies to Hepatitis A detected. Hep C Ab NONREACT NONREACTIVE [facility] Comment: Siemens CentaurXP using TAMMY [...] OR DERABLES Final Result Performing Organization Address City/[facility]/ZIP Co de Phone Number [facility] [address] [phone] * (ABNORMAL) Hemoglobin A1c (09/25/2019 4:25 AM CDT) Hemoglobin A1c % 9.5(H) 4.0 - 5.6 % [facility] Comment: ADA 2016 GUIDELINES: Initial Diagnostic Criteria HbA1c Result: Interpretation: <5.7% Normal 5.7-6.4% At risk for diabetes mellitus >=6.5% Consistent with diabetes mellitus Diabetes monitoring Target value (ADA Recommended) <7% 09/25/2019 4:25 AM CDT 09/25/2019 5:43 AM CDT Narrative Resulting Agency Comment LENORA Anish Solis MD LAB BLOOD ORDERABLES Final Re sult [address] [phone] * (ABNORMAL) Lipid panel (09/25/2019 4:25 AM CDT) Triglycerides 592(H) 0 - 149 mg/dL [facility] Comment: LDL(measured) to follow due to Triglycerides >250 mg/dL. National Lipid Association/NCEP Guidelines: Normal < 150 mg/dL Borderline high 150-199 mg/dL High 200-499 mg/dL Very High >=500 mg/dL Cholesterol 131 0 - 199 mg/dL [facility] Comment: National Lipid Association/NCEP Guidelines: Desirable < 200 mg/dL Borderline high: 200-239 mg/dL High Risk: >=240 mg/dL HDL Cholesterol 20 mg/dL [facility] Comment: Reference Ranges: Males: >=40 mg/dL Females: >=50 mg/dL Cholesterol/HDL Ratio 6.6 [facility] Comment: Optimal < 3.5:1 High > 5:1 09/25/2019 4:25 AM CDT 09/25/2019 5:43 AM CDT Narrative Resulting Agency Comment LENORA Anish Solis MD LAB BLOOD ORDERABLES Final Re sult [facility] [address] [place] [address] from Last 3 Months or Most Recently Relevant to Health Maintenance Insurance [employer] CHOICE IDPA ANTHEM ACCESS CHOICE Advance Directives For more information, please contact: [phone] * Full Code (Latest Code Status on File) Date Activated Date Inactivated Comments 06/24/2024 9:31 AM 06/24/2024 4:57 PM * Full Code Date Activated Date Inactivated Comments 06/24/2024 9:31 AM 06/24/2024 9:31 AM * Full Code Date Activated Date Inactivated Comments 06/19/2023 7:33 PM 06/21/2023 5:05 PM Care Teams Stevedoring Superintendent Relationship Specialty Start Date End Date Nikky Cunningham MD [address] [place] [address] PCP - General Family Medicine 03/03/24
--- OUTSIDE RECORDS SUMMARY | 2024-06-30 19:03 | XMS_ITS | Clinical Summary ---
Author Organization [facility] Address [address] [place] [phone] Phone Care Team Providers Care Pediatric Registered Nurse Name Role Phone Provider, None Primary [...] on file Legal Sex Male 11:59 AM VINER OPERATOR Gender Identity Not on file Sexual Orientation Not on file Last Filed Vital Signs Vital Sign Reading Time Taken Comments Blood Pressure 130/82 05/06/2023 12:20 PM VINER OPERATOR Pulse 103 05/06/2023 12:20 PM VINER OPERATOR Temperature 36.5 C (97.7 F) 05/06/2023 12:20 PM VINER OPERATOR Respiratory Rate 20 05/06/2023 12:20 PM VINER OPERATOR Oxygen Saturation 98% 05/06/2023 12:20 PM VINER OPERATOR Inhaled Oxygen Concentration - - Weight 138.3 kg (305 lb) 05/06/2023 12:20 PM VINER OPERATOR Height 180.3 cm (5' 11 ) 05/06/2023 12:20 PM VINER OPERATOR Body Mass Index 42.54 05/06/2023 12:20 PM VINER OPERATOR Plan of Treatment Health Maintenance Due Date [...] patient's age to complete this topic [place] [address] [place] [address] MEDICAID [place] Care Teams Pediatric Registered Nurse Relationship Specialty Start Date End Date Provider, None [place] PCP - General 05/06/23
--- OUTSIDE RECORDS SUMMARY | 2024-06-30 19:03 | XMS_ITS | Encounter Summary ---
Author Organization [facility] Address [address] [place] [address] Care Team Providers Care Hand Grinder Name Role Phone PraksSara TATTOOER-EMTS Primary Care Provider Oscar Siegel MD Primary Care Provider [phone] Dominguez Mena DO Primary Care Provider [phone] Oscar Siegel MD Primary Care Provider [phone] Encounter Details Date Type Department Care Team (Late st Contact Info) Description 12/01/2019 Lab Requisition [facility] [address] [place] [address] Aimee Hays MD [address] [place] [address] Social History Tobacco Use Types Packs/Day [...] AM CDT) Case Report Dermatopathology Report Case: [id number] Authorizing Provider: Aimee Hays MD Collected: 11/30/2019 12:00 AM Ordering Location: [facility] Received: 12/01/2019 09:32 AM [...] specimen consists of a shave biopsy measuring [id number], bisected. Jar 0. 0 2:34 PM CDT [...] characteristic determined by the Dermatopathology Laboratory at [facility], directed by Dr. Jacklyn Jo. These tests need not be, and therefore are not, approved by the [place] Food and Drug Administration. The tests are used for clinical purposes. Billing Codes Specimen Charges Stain Charges 60669 1 0 2:34 PM CDT DERMATOPATHOLOGY LABORATORY Embedded Images 0 2:34 PM CDT DERMATOPATHOLOGY LABORATORY Pathology/Cytolog y TISSUE SPECIMEN FROM SKIN / Unknown 11/30/2019 12/01/2019 9:32 AM CDT Aimee Hays MD LAB - PATHOLOGY/ CYTOLOGY ORDERABLES DERMATOPATHOLOGY LABORATORY [facility] - Department of Dermatology Specialized Medicine [address] [place] [address], [address] [place] [address], [facility] [phone] documented in this encounter Visit Diagnoses Not on filedocumented in this encounter Care Teams Hand Grinder Relationship Specialty Start Date End Date Sara Parks, TATTOOER-EMTS [address] [place] [address] PCP - General 10/28/17 04/25/20 Oscar Siegel MD [address] [place] [address] [address] [place] [address] PCP - General 04/26/20 06/15/20 Dominguez Mena DO [address] [address] PCP - General Family Medicine 06/16/20 06/29/20 Oscar Siegel MD [address] [place] [address] [address] [place] [address] PCP - General 06/30/20 11/07/22 documented as of this encounter
[2024-06-30 19:10] VITALS: BP 169/95; PULSE 117; RESP 20; TEMP 36.4; O2SAT 99
--- NOTE | 2024-06-30 19:17 | ED_ITS ---
HPI - URI/Sore Throat General Chief Complaint: Upper Respiratory Infection Stated Complaint: cough Time Seen by Provider: 06/30/24 19:27 Source: patient and RN notes reviewed Mode of arrival: ambulatory Limitations: no limitations History of Present Illness HPI Narrative: 38-year-old male presents with concern for 2 week history of cough. Reports it worsened over the last week. Reports he has pain in his left armpit when he coughs. He reports general malaise and fatigue. Denies fever. Reports he tried [id number] medications without relief MD elicited complaint: cough Related Data Home Medications ?Medication ?Instructions ?Recorded ?Confirmed ?Last Taken ?Type pantoprazole 40 mg tablet,delayed 40 mg PO HS 03/05/23 04/27/24 03/27/24 History release amitriptyline 25 mg tablet 25 mg PO HS 02/17/24 04/27/24 03/27/24 History amlodipine 10 mg tablet 10 mg PO HS 02/17/24 04/27/24 03/27/24 History cholecalciferol (vitamin D3) 25 25 mcg PO HS 02/17/24 04/27/24 03/27/24 History mcg (1,000 unit) tablet albuterol sulfate 90 mcg/actuation 2 puff inhalation Q6H PRN 03/20/24 04/27/24 Unknown History aerosol inhaler shortness of breath or wheezing linaclotide 145 mcg capsule 145 mcg PO DAILY 03/20/24 04/27/24 03/27/24 History (Linzess) metformin 500 mg tablet 500 mg PO BID 03/28/24 04/27/24 03/27/24 History Allergies Allergy/AdvReac Type Severity Reaction Status Date / Time morphine Allergy Unknown SEIZURE Verified 06/30/24 19:13 lisinopril AdvReac Unknown Cough Verified 06/30/24 19:13 Review of Systems Review of Systems: CONSTITUTIONAL: Reports malaise, fatigue. Denies fever EYES: Denies visual changes, redness, or discharge. ENT: Denies rhinorrhea, congestion, sinus pain, otalgia and sore throat. CARDIOVASCULAR: Denies chest pain, palpitations, or edema. RESPIRATORY: Reports cough. Denies dyspnea. GASTROINTESTINAL: Denies abdominal pain, nausea, vomiting, diarrhea SKIN: Denies rash or itching. MUSCULOSKELETAL: Denies myalgia. Reports pain under his left armpit with coughing NEUROLOGIC: Denies headache. All systems reviewed & are unremarkable except as noted in HPI and below PMFSH Past Medical History Medical History Diabetes Anxiety Depression Back pain Ankle fracture Hand fracture, right Vertebral fracture hairline thoracic vertebra fracture UTI (urinary tract infection) Kidney stones GI bleed GERD (gastroesophageal reflux disease) IBS (irritable bowel syndrome) History of rectal polyps Pancreatitis Ulcerative colitis Pneumonia Bronchitis Asthma HTN (hypertension) Surgical History Surgical History History of laparoscopic cholecystectomy 03/21/2024 Hx laparoscopic cholecystectomy Hx of tonsillectomy Family History Family History Father Lung cancer Grandparent Carcinoma of colon Pancreatic cancer Sibling Testicular cancer Social History Social History Social History: Caffeine-daily Smoking packs per day: 0.5 Smoking cigarettes per day: 10.0 Years smoked: 2 Smoking pack-years: 1.00 Smoking status: Never smoker Tobacco type: cigarettes Additional smoking assessment comments: STOPPED SMOKING 2009 Alcohol intake: current Drinks per week: 1 Alcohol use details: socially Substance use: never Substance use type: marijuana Last use: 5 YRS Do You Feel Safe in your Home?: Yes Lack of Transportation: No Lack of Food: Never True Current Housing: I Have Housing Concerned About Future Housing: No Difficulty Paying Gas/Electric Bills: No Difficulty Paying for Meds: No Currently Unemployed: No Education: Associate Degree Difficulty w/ Childcare or Family Care: No Living arrangements: with family Occupation/Education: occupation 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 There is no relevant family history pertinent to the presenting complaint Exam Narrative: GENERAL: Nontoxic-appearing, well-nourished, and in no acute distress. HEAD: Normocephalic EYES: PERRLA, conjunctivae clear ENT: Nares clear. Mucous membranes moist. TM pearly vasquez with sharp light reflex; no tragal tenderness. Oropharynx not erythematous without lesions. Tonsils not enlarged and without exudate, no drooling, no hoarseness, no trismus, uvula midline. NECK: Supple. No lymphadenopathy CHEST: Clear to auscultation, breath sounds equal. No wheezing, rhonchi, rales, or stridor. No respiratory distress, speaks in full sentences. Cough noted HEART: Regular rate and rhythm. No murmur heard. SKIN: Warm, dry, no rash. NEURO: Alert and oriented x3. PSYCH: Normal mood and affect Course Course Emergency Course: Patient is aware of diagnosis, understands and agrees to treatment plan. Anticipatory guidance given. Patient agrees to follow-up as directed and is aware of reasons to seek care at the emergency department. Portions of this record may have been created with voice recognition software Level of Care: Express Care Visit Vital Signs Vital signs: Vital Signs Temperature 97.6 F 06/30/24 19:10 Pulse Rate 117 H 06/30/24 19:10 Respiratory Rate 20 06/30/24 19:10 Blood Pressure 169/95 H 06/30/24 19:10 Pulse Oximetry 99 06/30/24 19:10 Oxygen Delivery Room Air 06/30/24 19:10 Temperature 97.6 F 06/30/24 19:10 Pulse Rate 117 H 06/30/24 19:10 Respiratory Rate 20 06/30/24 19:10 Blood Pressure 169/95 H 06/30/24 19:10 Pulse Oximetry 99 06/30/24 19:10 Oxygen Delivery Room Air 06/30/24 19:10 Reviewed. MDM - URI/Sore Throat MDM Narrative Medical decision making narrative: Differential diagnosis considered: Patricio virus, strep pharyngitis, allergic rhinitis, upper respiratory tract infection, sinusitis, rhinosinusitis, nasopharyngitis. viral pharyngitis, otitis media, otitis externa, pneumonia, bronchitis, viral cough syndrome, viral syndrome, and influenza. Exam findings show no acute concerns or changes; patient is non-toxic appearing and is in no distress. Patient is appropriate for outpatient treatment and follow-up. Lab Data Attestation: I reviewed the patient's lab results. Critical Care Time Critical Care Time Critical Care Time: No Discharge Plan Discharge Clinical Impression: Lower respiratory tract infection Patient Disposition: Home, Self-Care Condition: Stable Instructions: Antibiotic Form, Acute Cough (ED) Additional Instructions: Take medication as prescribed Recommend antihistamine such as Benadryl at night time and Zyrtec or Rae during the day Cough syrup may cause drowsiness; avoid driving or take it at night time. Also, recommend symptomatic treatment includes: rest, fluids, and increase humidity of the air at home. Recommend Acetaminophen as directed on the bottle to reduce fever, pain, headache. Avoid smoking/second-hand smoke. Please schedule a follow-up visit with your personal physician for further evaluation and treatment within 3-5days. Including recheck and discussion of your blood pressure. If your symptoms persist, change or worsen significantly before you can contact your personal physician then please, without delay, go to the emergency department for further evaluation. Patient Language: Mauritanian Prescriptions: New promethazine-DM 6.25-15 mg/5 mL syrup 5 ml PO Q4-6H PRN (Reason: cough) Qty: 120 0RF azithromycin [Zithromax Z-Parmjit] 250 mg tablet See Rx Instructions .ROUTE .COMPLEX Qty: 6 0RF Rx Instructions: take 500 mg today (day 1), then 250 mg for 4 days (days 2-5) methylprednisolone [Medrol (Parmjit)] 4 mg tablets,dose pack See Rx Instructions .ROUTE .COMPLEX Qty: 21 0RF Rx Instructions: orally per package directions No Action amitriptyline 25 mg tablet 25 mg PO HS amlodipine 10 mg tablet 10 mg PO HS cholecalciferol (vitamin D3) 25 mcg (1,000 unit) tablet 25 mcg PO HS pantoprazole 40 mg tablet,delayed release (DR/EC) 40 mg PO HS Linzess 145 mcg capsule 145 mcg PO DAILY albuterol sulfate 90 mcg/actuation HFA aerosol inhaler 2 puff INHALATION Q6H PRN (Reason: shortness of breath or wheezing) metformin 500 mg tablet 500 mg PO BID Follow-up/Referrals: UNKNOWN,DOCTOR [Primary Care Provider] - Time of Disposition: 19:36
== END 2024-06-30 19:39 | disposition home or self-care (01) ==
PROVIDERS: Emergency Provider Nurse Practitioner
DX: J22 Unspecified acute lower respiratory infection (principal); E11.9 Type 2 diabetes mellitus without complications; Z79.84 Long term (current) use of oral hypoglycemic drugs; K21.9 Gastro-esophageal reflux disease without esophagitis; I10 Essential (primary) hypertension; J45.909 Unspecified asthma, uncomplicated; F32.A Depression, unspecified; Z87.891 Personal history of nicotine dependence
CPT/HCPCS: 99213; G0463

== ENCOUNTER 2024-07-15 13:15 | Emergency (ER) | payer OTHER, BC, SELFPAY ==
--- NOTE | ~2024-07-15 | XR_ITS ---
EXAMINATION: XR hand LT min 3V DATE: 07/15/2024 13:48 INDICATION: Blunt trauma to the dorsum of the left hand TECHNIQUE: Posteroanterior, oblique and lateral views of the left hand were obtained. COMPARISON: 12/14/2022 FINDINGS: Alignment is normal. No fracture. Joint spaces are normal. Soft tissues are unremarkable. IMPRESSION: 1. Normal left hand radiographs. No acute osseous abnormality. Reviewed, dictated and finalized at location A.
--- NOTE | 2024-07-15 13:28 | ED.UPPEXIN ---
HPI - Extremity Injury (Upper) General Chief Complaint: Extremity Injury, Upper Stated Complaint: Lft hand injury Time Seen by Provider: 07/15/24 13:24 Source: patient Mode of arrival: ambulatory Limitations: no limitations History of Present Illness HPI narrative: Patient presents to the clinic for left hand pain after an injury at work yesterday when a 30lb box of meat fell on his hand. Patient states that he has been resting, icing, and elevating his left hand. He is still rating his pain a 6/10. Patient does have a history of tendinitis surgery on left hand. Related Data Home Medications ?Medication ?Instructions ?Recorded ?Confirmed ?Last Taken ?Type pantoprazole 40 mg tablet,delayed 40 mg PO HS 03/05/23 04/27/24 03/27/24 History release amitriptyline 25 mg tablet 25 mg PO HS 02/17/24 04/27/24 03/27/24 History amlodipine 10 mg tablet 10 mg PO HS 02/17/24 04/27/24 03/27/24 History cholecalciferol (vitamin D3) 25 25 mcg PO HS 02/17/24 04/27/24 03/27/24 History mcg (1,000 unit) tablet albuterol sulfate 90 mcg/actuation 2 puff inhalation Q6H PRN 03/20/24 04/27/24 Unknown History aerosol inhaler shortness of breath or wheezing linaclotide 145 mcg capsule 145 mcg PO DAILY 03/20/24 04/27/24 03/27/24 History (Linzess) metformin 500 mg tablet 500 mg PO BID 03/28/24 04/27/24 03/27/24 History Allergies Allergy/AdvReac Type Severity Reaction Status Date / Time morphine Allergy Severe SEIZURE Verified 07/15/24 13:35 lisinopril AdvReac Intermediate Cough Verified 07/15/24 13:35 Review of Systems Review of Systems: CONSTITUTIONAL: Denies body aches, fever, chills EYES: Denies visual changes ENT: Denies rhinorrhea, congestion CARDIOVASCULAR: Denies chest pain, palpitations, or edema. RESPIRATORY: Denies cough or dyspnea. SKIN: Denies rash, itching, or wounds. MUSCULOSKELETAL: reports left hand pain and swelling. NEUROLOGIC: Denies headache, numbness, tingling, or weakness. All systems reviewed & are unremarkable except as noted in HPI and below PMFSH Past Medical History Medical History Diabetes Anxiety Depression Back pain Ankle fracture Hand fracture, right Vertebral fracture hairline thoracic vertebra fracture UTI (urinary tract infection) Kidney stones GI bleed GERD (gastroesophageal reflux disease) IBS (irritable bowel syndrome) History of rectal polyps Pancreatitis Ulcerative colitis Pneumonia Bronchitis Asthma HTN (hypertension) Surgical History Surgical History History of laparoscopic cholecystectomy 03/21/2024 Hx laparoscopic cholecystectomy Hx of tonsillectomy Family History Family History Father Lung cancer Grandparent Carcinoma of colon Pancreatic cancer Sibling Testicular cancer Social History Social History Social History: Caffeine-daily Smoking packs per day: 0.5 Smoking cigarettes per day: 10.0 Years smoked: 2 Smoking pack-years: 1.00 Smoking status: Never smoker Tobacco type: cigarettes Additional smoking assessment comments: STOPPED SMOKING 2009 Alcohol intake: current Drinks per week: 1 Alcohol use details: socially Substance use: never Substance use type: marijuana Last use: 5 YRS Do You Feel Safe in your Home?: Yes Lack of Transportation: No Lack of Food: Never True Current Housing: I Have Housing Concerned About Future Housing: No Difficulty Paying Gas/Electric Bills: No Difficulty Paying for Meds: No Currently Unemployed: No Education: Associate Degree Difficulty w/ Childcare or Family Care: No Living arrangements: with family Occupation/Education: occupation 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 Please see nursing chart for further information. There is no relevant family history pertinent to the presenting complaint. Exam Narrative: GENERAL: Well-appearing, well-nourished, and in no acute distress. HEAD: Normocephalic, atraumatic. NECK: Supple. CHEST: Speaks in full sentences. No respiratory distress. HEART: Regular rate and rhythm. Normal and equal peripheral pulses. EXTREMITIES: left hand has decreased strength but normal sensation, decreases range of motion with flexion/extension/rotation. Endorses pain with movement. Edema and ecchymosis noted, No point tenderness. No open wounds, skin tenting, or obvious deformity; alignment normal, pulse palpable and equal bilaterally, skin warm, dry, pink. Capillary refill less than 3 seconds. Unable to close fist, do okay sign, or complete finger cascade due to pain. SKIN: Warm, dry, no rash. NEURO: Alert and oriented x3. PSYCH: Normal mood and affect Course Course Level of Care: Express Care Visit Vital Signs Vital signs: Vital Signs Temperature 98.4 F 07/15/24 13:34 Pulse Rate 100 07/15/24 13:34 Respiratory Rate 20 07/15/24 13:34 Blood Pressure 160/102 H 07/15/24 13:34 Pulse Oximetry 100 07/15/24 13:34 Oxygen Delivery Room Air 07/15/24 13:34 Temperature 98.4 F 07/15/24 13:34 Pulse Rate 100 07/15/24 13:34 Respiratory Rate 20 07/15/24 13:34 Blood Pressure 160/102 H 07/15/24 13:34 Pulse Oximetry 100 07/15/24 13:34 Oxygen Delivery Room Air 07/15/24 13:34 reviewed MDM - Extremity Injury (Upper) MDM Narrative Medical decision making narrative: Discussed physical exam findings and xray. Advised supportive measures and signs/symptoms to go to the ER. Pt is appropriate for outpatient treatment and follow up. Differential Diagnosis Differential diagnosis: Likely fracture of hand and other (sprain/strain of wrist, Colles' fracture, wrist fracture, hand fracture, finger sprain, dislocation of finger, gout, cellulitis, arthritis, tendonitis) Critical Care Time Critical Care Time Critical Care Time: No Discharge Plan Discharge Clinical Impression: Hand sprain Patient Disposition: Home Condition: Stable Instructions: Hand Sprain (ED) Additional Instructions: Rest. Avoid pushing, pulling, lifting - or anything that worsens the symptoms Tylenol 1000mg every 8 hours as needed You can alternate with ibuprofen 600mg Alternate ice/heat to the site. Lidocaine or salon pas pain patch or use pain cream like icy/hot or biofreeze. Follow up with your primary care provider as needed in 1 week Go to the ER for worsening symptoms or concerns Patient Language: Romansh Prescriptions: No Action amitriptyline 25 mg tablet 25 mg PO HS amlodipine 10 mg tablet 10 mg PO HS cholecalciferol (vitamin D3) 25 mcg (1,000 unit) tablet 25 mcg PO HS pantoprazole 40 mg tablet,delayed release (DR/EC) 40 mg PO HS Linzess 145 mcg capsule 145 mcg PO DAILY albuterol sulfate 90 mcg/actuation HFA aerosol inhaler 2 puff INHALATION Q6H PRN (Reason: shortness of breath or wheezing) metformin 500 mg tablet 500 mg PO BID Follow-up/Referrals: UNKNOWN,DOCTOR [Primary Care Provider] - Stand Alone Forms: Work/School Release IP
[2024-07-15 13:34] VITALS: BP 160/102; PULSE 100; RESP 20; TEMP 36.9; O2SAT 100
--- OUTSIDE RECORDS SUMMARY | 2024-07-15 14:24 | XMS_ITS | Clinical Summary ---
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 Gender Identity Not on file Sexual Orientation Not on file Last Filed Vital Signs Vital Sign Reading Time Taken Comments Blood Pressure 130/82 05/06/2023 12:20 PM LOGGING EQUIPMENT MECHANIC Pulse 103 05/06/2023 12:20 PM LOGGING EQUIPMENT MECHANIC Temperature 36.5 C (97.7 F) 05/06/2023 12:20 PM LOGGING EQUIPMENT MECHANIC Respiratory Rate 20 05/06/2023 12:20 PM LOGGING EQUIPMENT MECHANIC Oxygen Saturation 98% 05/06/2023 12:20 PM LOGGING EQUIPMENT MECHANIC Inhaled Oxygen Concentration - - Weight 138.3 kg (305 lb) 05/06/2023 12:20 PM LOGGING EQUIPMENT MECHANIC Height 180.3 cm (5' 11 ) 05/06/2023 12:20 PM LOGGING EQUIPMENT MECHANIC Body Mass Index 42.54 05/06/2023 12:20 PM LOGGING EQUIPMENT MECHANIC Plan of Treatment Health Maintenance Due Date [...] patient's age to complete this topic [place] [address] [address] [place] [address] MEDICAID [place] Care Teams Boiler House Supervisor Relationship Specialty Start Date End Date Provider, None [place] PCP - General 05/06/23
--- OUTSIDE RECORDS SUMMARY | 2024-07-15 14:25 | XMS_ITS | Encounter Summary ---
Author Organization [facility] Address [address] [place] [address] Care Team Providers Care Asphalt Tar And Gravel Roofer Name Role Phone ParksSara SPECIAL DISTRIBUTION CLERK-OPERATING ROOM TECHNICIAN Primary Care Provider Oscar Siegel MD Primary Care Provider [phone] Dominguez Mena DO Primary Care Provider [phone] Oscar Siegel MD Primary Care Provider [phone] Encounter Details Date Type Department Care Team (Late st Contact Info) Description 12/01/2019 Lab Requisition [facility] [address] [place] [id number] Aimee Hays MD [address] [place] [id number] Social History Tobacco Use Types Packs/Day Years Used Date Smoking Tobacco: Never Smokeless Tobacco: Never Alcohol Use Standard Drinks/Week Comments Yes 0 (1 standard drink = 0.6 oz pur e alcohol) OCCASSIONALLY Sex and Gender Information Value Date Recorded Sex Assigned at Not on file 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 Gender Identity Not on file Sexual Orientation Not on file documented as of this encounter Plan of Treatment Not on file documented as of this encounter Procedures Procedure Name Priority Date/Time Associated Diagnosis Comments DERMATOPATHOLOGY Routine 11/30/2019 12:0 0 AM CDT documented in this encounter Results * DERMATOPATHOLOGY (11/30/2019 12:00 AM CDT) Case Report Dermatopathology Report Case: [id number] Authorizing Provider: Aimee Hays MD Collected: 11/30/2019 12:00 AM Ordering Location: [facility] Received: 12/01/2019 09:32 AM [...] specimen consists of a shave biopsy measuring [id number], bisected. Jar 0. 0 2:34 PM CDT [...] characteristic determined by the Dermatopathology Laboratory at [facility], directed by Dr. Jacklyn Jo. These tests need not be, and therefore are not, approved by the [place] Food and Drug Administration. The tests are used for clinical purposes. Billing Codes Specimen Charges Stain Charges 91617 1 0 2:34 PM CDT DERMATOPATHOLOGY LABORATORY Embedded Images 0 2:34 PM CDT DERMATOPATHOLOGY LABORATORY Pathology/Cytolog y TISSUE SPECIMEN FROM SKIN / Unknown 11/30/2019 12/01/2019 9:32 AM CDT Aimee Hays MD LAB - PATHOLOGY/CYTOLOGY ORDERABLES Final Result DERMATOPATHOLOGY LABORATORY [facility] - Department of Dermatology [facility] Special[facility] Medicine [address] [address] [facility] [place] [address], [facility] [phone] documented in this encounter Visit Diagnoses Not on filedocumented in this encounter Care Teams Asphalt Tar And Gravel Roofer Relationship Specialty Start Date End Date Sara Parks, SPECIAL DISTRIBUTION CLERK-OPERATING ROOM TECHNICIAN [address] [place] [address] PCP - General 10/28/17 04/25/20 [place] [address] [place] [address] [address] [place] [address] PCP - General 04/26/20 06/15/20 Dominguez Mena DO [address] [address] PCP - General Family Medicine 06/16/20 06/29/20 Oscar Siegel MD [address] [facility] [address] [place] [address] PCP - General 06/30/20 11/07/22 documented as of this encounter
--- OUTSIDE RECORDS SUMMARY | 2024-07-15 14:25 | XMS_ITS | Clinical Summary ---
Author Organization [facility] Address [address] [place] [address] Care Team Providers Care Visual Associate Name Role Phone Unavailable Primary Care Provider Unavailabl e Source Comments [facility],non-owned Affiliates and Associated Physician Practices is amultiple site organization consisting of ambulatory clinics and hospital sitesin [place] and [place]. This disclosure is being madepursuant to the Care Everywhere program and may not contain all information available regarding this patient. Last updated 17.[facility] Allergies Active Allergy Reactions Criticality Noted Date Comments Morphine Cardiac Injury High 10/23/2017 Medications * Be aware that medications may not be up to date on this document. Alwaysverify current medications with the patient. 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 Gender Identity Not on file Sexual Orientation [...] 11/13/2019, 06/30/2019, Additional history exists COVID-19 VACCINE ( - season) 2023 DEPRESSION SCREENING 04/01/2024 DIABETES - URINE PROTEIN SCREENING 04/01/2024 INFLUENZA VACCINE (Season Ended) 2024 01/30/2018 ZOSTER VACCINE (1 of 2) 10/21/2037 [...] patient's age to complete this topic Insurance [employer] SELF PAY NO INSURANCE Member Subscriber Plan / Payer (Ef fective for All Dates) Name:Ama Bailey Member ID:Not on file Relation to Subscriber:Self Name:AMA BAILEY Subscriber ID:Not on file Payer ID:Not on file Group ID:Not on file Type:Self Pay Address: [facility]
--- OUTSIDE RECORDS SUMMARY | 2024-07-15 14:25 | XMS_ITS | Data Portability ---
Author Organization [facility] JEFFNikkosamantha Quan Address [address] [place] [address] Care Team Providers Care A And P Mechanic Name Role Phone ARELY YOUNG Primary Care Provider Assessment Encounter Date Assessment Date Assessment LastModified by Organization Details LastModified Time 04/15/2024 04/15/2024 Merlene Sterling, supervised OMT Not available 04/21/2024 13:46:27 Plan of Treatment Reminders Order Date Submit Date Provider Last Modified By Organization Details Last Modified Time Details Appointments ANY 15 2024 08:45A M ANJELICA ZAMORA , DO Not available Not available Not available Lab rapid flu (A+B) 2023 024 rgriffon In-Office Order, Internal Use Only DO Not Attach Compendium DO Not Attach Compendium, Do Not Delete/merge, [id number] 03/18/2024 11:33:14 rapid SARS CoV 2 Ag, QL IA, respirato ry specimen 2023 024 rgriffon In-Office Order, Internal Use Only DO Not Attach Compendium DO Not Attach Compendium, Do Not Delete/merge, [id number] 03/18/2024 11:33:13 HbA1c (hemoglob in A1c), blood 2023 024 rgriffon In-Office Order, Internal Use Only DO Not Attach Compendium DO Not Attach Compendium, Do Not Delete/merge, [id number] 09/29/2023 22:33:33 H pylori Ag, qual immunoass ay, stool 2022 023 [facility], [address], [address], [place], [address], 12/06/2022 11:11:31 Referral gastroent erologist referral 2022 023 CHELSIE Matt MD, [address], [place], [address], 01/08/2023 15:17:26 Procedures None recorded. Surgeries None recorded. Imaging NM, hepatobil iary scan 2023 024 [email or web address] [facility], [address] [facility] , [place], [address], 01/27/2024 12:08:22 Medication Orders albuterol sulfate HFA 90 mcg/actua tion aerosol inhaler 2024 025 azamarione [facility] [address], [address], 04/09/2024 09:09:51 doxycycli ne hyclate 100 mg capsule 2024 025 [facility] [address], [address], 04/10/2024 11:45:31 Zofran 4 mg tablet 2023 024 [facility] [address], [address], 03/18/2024 11:56:39 benzonata te 200 mg capsule 2023 025 [facility] [address], [address], 04/08/2024 12:02:05 albuterol sulfate HFA 90 mcg/actua tion aerosol inhaler 2023 024 [facility] [address], [address], 03/18/2024 11:33:12 amlodipin e 10 mg tablet 2023 024 rgriac [facility] [address], [address], 09/27/2023 14:22:14 ondansetr on HCl 4 mg tablet 2022 [id number], [address], [place], [address], 09/27/2023 09:12:15 Patient TargetsNo targets recorded. Patient Instructions Encounter Date Encounter Id Patient Instructions Last Modified By Organization Details Last Modified Time 12/06/2022 [id number] A healthy lifestyle: care instructions [email or web address] Not available 12/09/2022 23:04:01 On the date of this encounter, I was available to assist the resident in the care of the patient, and have reviewed and agree with the resident s findings and plan of care. ---MARIAELENA [email or web address] Not available 12/15/2022 11:00:02 09/27/2023 [id number] A healthy lifestyle: care instructions jose ramon Not available 09/27/2023 09:25:51 Attending Physician Attestation I did not personally see or examine the patient with the resident. I was physically present to provide indirect supervision through entire encounter. I have reviewed the documentation and agree with the history, physical findings, work-up, and medical decision making as recorded. Devi oGld MD [email or web address] Not available 09/27/2023 10:18:18 03/18/2024 [id number] Attending Physician Attestation I did not personally see or examine the patient with the resident. I was physically present to provide indirect supervision through entire encounter. I have reviewed the documentation and agree with the history, physical findings, work-up, and medical decision making as recorded. Devi Gold MD [email or web address] Not available 03/18/2024 11:53:13 04/08/2024 [id number] A healthy lifestyle: care instructions [email or web address] Not available 04/10/2024 11:45:29 I personally saw and examined the patient with the resident. I agree with the note and plan as documented. Jacklyn Bal MD. [facility] [email or web address] Not available 04/08/2024 12:30:38 04/15/2024 [id number] I was present in the room with the patient and resident at the time of assessment and treatment. I agree with the plan. Merlene Sterling, Not available 04/21/2024 13:46:55 Reason for Referral [employer] Worker Referral for Nausea Referring Physician: Starla Parham, [employer], Encounter Date: 12/06/2022 Results Created Date Observation Date Name Description Value Unit Range Abnormal Flag Note LastModifiedBy Organization Detail LastModifiedTime 11/14/1911/13/2022 HbA1c (hemo globi n A1c), blood HbA1c 5.9 Not Available In-Office Order Internal Use Only DO Not Attach Compendium DO Not Attach Compendium, Do Not Delete/merge, [id number] 11/13/2022 16:48:58 12/07/19 23 12/06/2022 BASIC METAB OLIC PANEL (8) glucose 98 mg/dL 70-[address] [facility] [address] [place], [address], 12/07/2022 00:07:28 12/07/19 23 12/06/2022 BASIC METAB OLIC PANEL (8) BUN 10 mg/dL 6-[address] [facility] Department [address] [place], [address], 12/07/2022 00:07:28 12/07/19 23 12/06/2022 BASIC METAB OLIC PANEL (8) creatinine 0.69 mg/dL 0.76-1 .27 below low normal Not Available [facility] Department [address] [place], [address], 12/07/2022 00:07:28 12/07/19 23 12/06/2022 BASIC METAB OLIC PANEL (8) eGFR 124 >=60 Units for eGFR value s are mL/mi n/1.7 3 The eGFR Calcu latio n has not been valid ated for patie nts under the age of 18. If test resul ts are displ ayed for a patie nt under the age of 18, disre maite that value . Not Available [facility] Department [address] [place] [address], [address], 12/07/2022 00:07:28 12/07/19 23 12/06/2022 BASIC METAB OLIC PANEL (8) BUN/creatini ne ratio 14 9-20 Not Available [facility] Department [address] [place] [address], [address], 12/07/2022 00:07:28 12/07/19 23 12/06/2022 BASIC METAB OLIC PANEL (8) sodium 136 mmol/ L 134-[address] [facility] Department [address] [place] [address], [address], 12/07/2022 00:07:28 12/07/19 23 12/06/2022 BASIC METAB OLIC PANEL (8) potassium 4.0 mmol/ L 3.5-5. [address] [facility] Department [address] [place] [address], [address], 12/07/2022 00:07:28 12/07/19 23 12/06/2022 BASIC METAB OLIC PANEL (8) chloride 101 mmol/ L 96-[address] [facility] Department [address] [place] [address], [address], 12/07/2022 00:07:28 12/07/19 23 12/06/2022 BASIC METAB OLIC PANEL (8) carbon dioxide, total 25 mmol/ L 20-[address] [facility] Department [address] [place] [address], [address], 12/07/2022 00:07:28 12/07/19 23 12/06/2022 BASIC METAB OLIC PANEL (8) calcium 9.6 mg/dL 8.7-[address] [facility] Department [address], [place], [address], 12/07/2022 00:07:28 09/27/19 24 09/27/2023 HbA1c (hemo globi n A1c), blood HbA1c 6.0 Not Available In-Office Order Internal Use Only DO Not Attach Compendium DO Not Attach Compendium, Do Not Delete/merge, [id number] 09/27/2023 10:01:48 03/18/20 24 03/18/2024 rapid SARS CoV 2 Ag, QL IA, respi rator y speci men rapid SARS CoV 2 Ag, QL IA, respiratory specimen negati ve Not Available In-Office Order Internal Use Only DO Not Attach Compendium DO Not Attach Compendium, Do Not Delete/merge, [id number] 03/18/2024 10:54:17 03/18/20 24 03/18/2024 rapid flu (A+B) Flu A negati ve Not Available In-Office Order Internal Use Only DO Not Attach Compendium DO Not Attach Compendium, Do Not Delete/merge, [id number] 03/18/2024 10:54:16 03/18/20 24 03/18/2024 rapid flu (A+B) Flu B negati ve Not Available In-Office Order Internal Use Only DO Not Attach Compendium DO Not Attach Compendium, Do Not Delete/merge, [id number] 03/18/2024 10:54:16 04/03/19 25 03/20/2024 CT, abdom en + pelvi s, w/ contr ast No observ ation record ed. rgriffon [facility] 1 [facility] , [place], [address], 04/03/2024 09:58:53 Result Notes None recorded. 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 ARELY YOUNG MD Attn: Rosy carlos,[address] [facility], [place], [address], [facility] - [facility] 4 09:39:51 Obstructiv e sleep apnea syndrome 37683822 Active 2020 Denisha Uriarte [place], [place] - [facility] 1 14:40:00 COVID-19 262646853 Active 2021 Cosmo Valverde [place] - [facility] 2 17:44:52 Hypertensi ve disorder 75064902 Active 2021 Starla Parham MD Attn: Rosy carlos,[address] [facility], [place], [address], [facility] - [facility] 2 22:15:53 Obesity 146276020 Active 2021 Starla Parham MD Attn: Rosy gonzalez,[address] [facility], [place], [address], [place] - [facility] 2 22:16:02 Radial styloid tenosynovi tis 92103582 Active 2023 ARELY YOUNG MD Attn: Rosy gonzalez,[address] [place], [address], [place] - [facility] 4 09:24:31 Tubular adenoma of colon 030897837 Active 202307/15/2023 tubular adenoma polyp in the transverse colon ARELY YOUNG MD Attn: Rosy gonzalez,[address] [place], [address], [place] - [facility] 4 14:42:34 Mild intermitte nt asthma 880217071 Active 2023 ARELY YOUNG MD Attn: Rosy gonzalez,[address] [place], [address], [place] - [facility] 4 10:53:38 Problem Notes None recorded. Procedures Surgical History Date Name Laterality Status Provider Name and Address Organization Details Recorded Time 04/15/19 25 Generic Procedure completed ANJELICA ZAMORA DO Attn: Accounting, [address] [facility], [place], [address], [facility] - [facility] 04/20/2024 14:40:20 03/21/20 24 Cholecystectomy completed ARIEL Hendrickson [place] - [facility] 04/15/2024 10:50:39 07/27/19 21 Diabetic Foot Exam completed Denisha Uriarte ND - [facility] 08/01/2020 00:33:16 11/30/19 20 Skin Tag Removal completed Cosmo Valverde ND - [facility] 11/30/2019 16:42:21 Carpal tunnel surgery completed Vielka Millard MA ND - [facility] 09/27/2023 09:13:16 colonoscopy completed Vielka Millard MA [place] - [facility] 09/27/2023 09:13:23 decompression of ulnar nerve at elbow completed ARELY YOUNG MD Attn: Accounting, [address] [facility], [place], [address], [facility] - [facility] 09/27/2023 09:25:13 Imaging Results Imaging Date Name Status LastModified by Organiz ation Details LastModified Time 03/20/2024 CT, abdomen + pelvis, w/ contrast completed [address], [address], 04/03/2024 09:58:53 Procedure Notes None recorded. Medical Equipment None Reported. Allergies Allergen ID Allergen Name Allergen Category Reaction Reaction Severity Criticality Documentation Date Start Date Code Code System Note Provider Name and Address Organization Details Recorded Time 109455 morphine medicatio n decreased blood pressure severe Not available 11/23/2019 7052 RxNorm Not Available Not Available Not Available 451138 lisinopri l medicatio n cough Not available Not available 11/13/2022 36844 RxNorm Not Available Not Available Not Available [...] Updated DateTime 3 180.34 cm 43.3 kg/m2 978994. 03 g 86 /min 99 % 99 % 97.4 [degF] 144 mm[Hg] 95 mm[Hg] Al Burrell MA [facility] 3 10:38:30 Date Recorded Systolic blood pressure Diastolic blood pressure Provider Name and Address Organization Details Last Updated DateTime 12/06/2022 138 mm[Hg] 89 mm[Hg] Starla Parham MD Attn: Accounting,[address] [place], [address], [facility] 12/06/2022 11:15:26 Date Recorded Body height Body mass index (BMI) Body weight Body temperature Heart rate Respiratory rate Systolic blood pressure Diastolic blood pressure Provider Name and Address Organization Details Last Updated DateTime 4 180.34 cm 44.2 kg/m2 019995. 78 g 98.3 [degF] 86 /min 20 /min 140 mm[Hg] 80 mm[Hg] Vielka Millard MA [facility] 4 09:10:30 Date Recorded Body height Body mass index (BMI) Body weight Oxygen saturation Oxygen saturation in Arterial blood by Pulse oximetry Heart rate Respiratory rate Body temperature Systolic blood pressure Diastolic blood pressure Provider Name and Address Organization Details Last Updated DateTime 4 180.34 cm 45.6 kg/m2 941381. 75 g 99 % 99 % 80 /min 18 /min 99 [degF] 130 mm[Hg] 80 mm[Hg] Vielka Millard MA [facility] 4 10:17:17 Date Recorded Body height Body mass index (BMI) Body weight Body temperature Heart rate Respiratory rate Oxygen saturation Oxygen saturation in Arterial blood by Pulse oximetry Systolic blood pressure Diastolic blood pressure Provider Name and Address Organization Details Last Updated DateTime 5 180.34 cm 44.9 kg/m2 826642. 14 g 98.3 [degF] 110 /min 18 /min 97 % 97 % 128 mm[Hg] 80 mm[Hg] Vielka Millard MA [facility] 5 11:30:30 Date Recorded Body height Body mass index (BMI) Body weight Heart rate Body temperature Respiratory rate Oxygen saturation Oxygen saturation in Arterial blood by Pulse oximetry Systolic blood pressure Diastolic blood pressure Provider Name and Address Organization Details Last Updated DateTime 5 180.34 cm 45.1 kg/m2 493760. 05 g 108 /min 99.2 [degF] 20 /min 97 % 97 % 143 mm[Hg] 91 mm[Hg] ARIEL Hendrickson [facility] 5 10:54:07 Social History Question Answer Notes LastModified by Organizat ion Details LastModified Time Tobacco Smoking Status Never Smoker Misti Beckford MA [facility] 11/23/2019 09:33:19 What Is Your Level [...] completed AERLY YOUNG MD Attn: Accounting,[address] [place], [address], [place] [facility] 03/18/2024 10:52:27 COVID-19, mRNA, LNP-S, PF, 100 mcg/0.5mL dose or 50 mcg/0.25mL dose 1 completed ARELY YOUNG MD Attn: Accounting,[address], [place], [address], [facility] - [facility] 03/18/2024 10:52:27 Influenza, split virus, quadrivalent, preservative 8 completed ARELY YOUNG MD Attn: Accounting,[address] [facility], [place], [address], [facility] 03/18/2024 10:52:27 Hep A, adult 2 completed ARELY YOUNG MD Attn: Accounting,[address] [facility], [place], [address], [facility] 03/18/2024 10:52:27 Past Encounters Encounter ID Performer Location Encounter Start Date Encounter Closed Date Diagnosis/Indication Diagnosis SNOMED-CT Code Diagnosis ICD10 Code Diagnosis Note [id number] López sommers MD [facility] [address] [address] [place] [address] 11/23/2019 09:25:40 11/25/2019 12:28:03 Diabetes mellitus 14541171 E11.9 Last A1C:{{less than 7.0% 7-8%* 8-9% [...] and increased activity Acute left otitis media 118454089 H66.92 acute on chronicTM bludging with middle ear fluid -augmentin rx sent Multiple skin tags 54254 7009 L91.8 multiple on neck and large pedunculat ed on right shoulder -patient to schedule with procedure clinic [id number] Aimee rodarte MD [facility] [address] [address] 11/30/2019 13:45:44 11/30/2019 19:41:28 Multiple skin tags 973280795 L91.8 Patient presents to clinic for removal [...] tag sent to lab for pathologic analysis. [id number] Harman Hyman MD [facility] [address] [address] 07/26/2020 14:14:14 08/01/2020 11:55:37 Morbid obesity 770203996 E66.01 BMI: 42.6 -Discussed Mediterran reji diet and physical activity Diabetes mellitus 924663 09 E11.9 Type II, chronicLas t A1C:{{less [...] to patient Paresthesi a of lower extremity 397046982 R20.2 NO history of recent illness Most likely due to diabetes consider electrolyt e abnormalit ies -BMP and Magnesium ordered -recommned ed to take OTC magnesium Neuropathy 318245733 G62 .9 Most likely due to diabetes abnormal foot exam -gabapenti n ordered -recommend ed patient schedule with podiatry, informatio n given ot patient Chronic low back pain 27 6840674 M54.5 Chronic, NO red flag symptoms Exam remarkable for tight hips and lower paraspinal muscles -referral to physical therapy placed [id number] López sommers MD [place] [address] [address] [address] 11/11/2020 09:41:32 11/14/2020 08:56:38 Cholelithiasis without obstruction 20152433 K80.20 Acute on chronic.-F ollow up scheduled with markie on 11/28/20-Pa in control with small amount of hydrocodon e.-Miralax for constipati on-Work up as below-Stri ct return precaution s for worsening pain or sxs of sepsis Overweight 240407338 E66 .3 Depressive disorder 3548 9007 F32.9 PHQ9=11 likely worse dt ongoing painDenies SI HIRTC following above surgical consultati on [id number] [place] [address] [address] [facility] [address] [place] [address] 12/29/2020 11:31:20 12/29/2020 16:16:49 Accident while engaged in work-related activity 69183710 X58.XXXA Notes sending medical bills Injury of shoulder region 506743230 S49.91XA Poor strength, especially with external rotation. [...] pre-proced ure dose of benzo- Ortho urgently [id number] Chelsie Jenkins MD [place] [address] [address] [address] 03/16/2021 15:47:13 03/16/2021 20:47:20 Morbid obesity 535371417 E66.01 - encouraged drinking fewer sugary drinks and cutting down on sweets- encouraged more fruits and veggies in diet, as well as exercising for at least 30 min 3-4x/wk Diabetes mellitus 133437 09 E11.9 Last A1C:{{less than 7.0% 7-8% [...] 11 12} } {{week(s) month(s)*} } Neuropathy 171524105 G62 .9 - notes pins and needles sensation in bilateral feet- says gabapentin has been helping his diabetic neuropathy Right uppe r quadrant pain 695197968 R10.11 - pt has been having dull [...] send to GI for further work up [id number] ALLISON TAVAREZ MD [place] [address] [address] [address] 05/30/2021 15:17:10 06/02/2021 08:07:43 Acute sinusitis 67949401 J01.90 Acute, 3-4 days with fever. Likely viral in etiology and draining into lungs and esophagus leading to gastritis and bronchitis .- Discussed viral course and reassuranc e- Supportive care with tylenol/ib uprofen for fever- Nasal corticoste roid to reduce inflammati on/mucus- RTC precaution s Acute bronchitis 2094396 2 J20.9 Hx of asthma as childhood, chronic bronchitis . No smoking history. No DYLLAN on-hand.- Albuterol to help relax airways- CXR steve if non-improv ing fever, chest tightness to eval PNA- RTC precaution s Nausea and vomiting 1693 1999 R11.2 Likely gastric irritation from mucus drainage. [id number] Aimee Cruz-MD Angela Mathur [address] [address] 08/07/2021 08:29:38 08/08/2021 11:23:03 COVID-19 774163322 U07.1 Sx began 08/03, positive home COVID [...] pt to get COVID booster when possible [id number] MD Angela Mackey [address] [address] 08/10/2021 13:31:42 08/11/2021 13:37:13 COVID-19 992727170 U07.1 F/u COVID+; symptoms began 08/03, positive [...] F/u w/ PCP in 1mo, sooner PRN. [id number] SATNAM CLARK , DO [facility] [address] [facility] [address] [place] [address] 10/27/2021 16:41:35 10/30/2021 13:54:49 Diabetes mellitus 62286651 E11.9 Last A1C:{{less than 7.0% 7-8% 8-9% [...] for high intensity dosage Hypertensive disorder 38 305026 I10 BP Goal: {{Less than 140/90* Le [...] establish baseline Obstructiv e sleep apnea syndrome 10269798 G47.33 - previously diagnosed, never received CPAP- will refer to pulm for CPAP Obesity 148652610 E66.9 - BMI >35- encouraged drinking fewer sugary drinks and cutting down on sweets- encouraged more fruits and veggies in diet, as well as exercising for at least 30 min 3-4x/wk- GI told him he would be a good candidate for bariatric surgery, will refer there Inattention 03580623 R41 .840 - concern for ADHD with inattentio n- will administer IRIS-7 and PHQ-9 at next visit to r/o IRIS and MDD before sending to psych Perforatio n of tympanic membrane 86432383 H72.02 - left ear was impacted with cerumen and irrigation was started- pt complained of pain and popping in his ear so irrigation was stopped- upon inspection , TM ruptured with only a small crescent of TM along right lower border present- will send to ENT for possible surgical repair if does not heal spontaneou sly [id number] Jonnathan Anna MD [facility] [address] [address] [place] [address] 11/13/2022 15:46:36 11/19/2022 15:52:55 Diabetes mellitus 40070522 E11.9 Last A1C:{{less than 7.0% 7-8% 8-9% [...] } {{week(s) month(s)*} } Hypertensive disorder 38 898461 I10 BP Goal: {{Less than 140/90* Le [...] benefit in DM2- due for labs Hyperlipidemia 86826709 E78.5 - needs refills Morbid obesity 889558906 E66.01 - encouraged drinking fewer sugary drinks and cutting down on sweets- encouraged more fruits and veggies in diet, as well as exercising for at least 30 min 3-4x/wk Depressive disorder 3548 9007 F32.A - PHQ9 = 11- denies HI/SI- pt declines wanting to start antidepres shivani or therapy, prefers watchful waiting [id number] [facility] [address] [facility] [address] [place] [address] 12/06/2022 10:14:20 12/10/2022 14:09:24 Nausea 389812481 R11.0 - pt with chronic nausea without [...] relief Tenosynovi tis of left radial styloid 7810188721 8287631 M65.4 - pt with left Dequervain 's tenosynovi tis, currently wearing wrist brace- encouraged to continue using brace and schedule NSAID use for 7d- will consider injection if pain persists after 3-4 weeks of conservati ve therapy Morbid obesity 633030028 E66.01 - did not discuss in detail at this visit [id number] MD Shyam BUNCH [address] [facility] [address] [place] [address] 09/27/2023 08:54:48 10/08/2023 12:43:10 Morbid obesity 742869519 E66.01 Healthy lifestyle encouraged including regular exercise of at least 150min per week, diet rich in plant based foods and low in added sugars, processed carbohydra sarath, and high salt foods. Pain of ear 829275232 H9 2.09 Likely eustachian tube dysfunctio n [...] desired. Gastroesop hageal reflux disease without esophagitis 225918745 K21.9 Has been following with Dr. Matt for intermitte nt abdominal pain. Was being evaluated for IBS vs biliary dyskinesia . Had ordered HIDA scan but was unable to schedule at [facility] . Will order at [facility]. Had known esophagiti s on EGD and is taking amitripyli ne and omeprazole . Type 2 reji betes mellitus 12244141 E11.9 Diagnosed in 2019. Initially was on insulin then changed diet and is now only on metformin 1000 mg BID. Labs done on 09/16 with normal CMP and normal creatinine . Essential hypertension 13539957 I10 BP elevated at 140/80. Will increase amlodipine to 10 mg. Will take BP 1-2 times weekly and keep log. Follow up in 1 month. Lateral ep icondylitis of right humerus 2940038688 15596 M77.11 Was given steroid injection 08/2023 by plastics. Following with occupation al therapy. Pain in the right elbow likely lateral epicondyli tis. Given up to date handout on helpful hints and education. [id number] MD Shyam BUNCH 14 IM [address] [facility] [address] [place] [address] 03/18/2024 10:04:46 03/27/2024 11:36:21 Mild intermittent asthma 027731797 J45.20 Needs refill for albuterol. No wheezing noted on exam today. Upper resp iratory infection 94904822 J06.9 5 day hx of cough, congestion , diarrhea likely viralWill give zofran for nausea and benzonatat e for cough.Tyle nol and ibuprofen for chest wall pain.Flu/C OVID negativeWo rk note given.Will call for fever, worsening symptoms, uncontroll ed vomiting, or if symptoms persist past this week. [id number] MD Shyam Chacon 14 IM [address] [facility] [place] [address] 04/08/2024 11:17:24 04/10/2024 15:35:12 Morbid obesity 550973212 E66.01 Healthy lifestyle encouraged including regular exercise of at least 150min per week, diet rich in plant based foods and low in added sugars, processed carbohydra sarath, and high salt foods. Encouraged protein intake mostly with chicken and white fish and limited red meat. Community acquired pneumonia [id number] J18.9 Given tachycardi a, worsening SOB and productive cough, will treat with 5 days of doxycyclin e for CAPReturn and ED precaution s discussedI nstructed to continue using incentive spirometry as much as possible Mild inter mittent asthma [id number] J45.20 Hx of asthmaNeed s refill on albuterol inhalerIns tructed to use inhaler every 4 hours for the next 2-3 days and as neededCan back off when SOB improvesRe turn and ED precaution s discussed Meralgia p aresthetica of left leg [id number] G57.12 physical exam suggestive of meralgia parestheti ca likely from being in a hospital bed for long period of timeDiscus sed conservati ve management including wearing lose fitting clothesMig ht benefit from OMT, will schedule in OMT clinic [id number] Merlene Howe 14 IM 4 [facility] [place] [address] 04/15/2024 10:38:23 04/23/2024 10:57:48 Community acquired pneumonia [id number] J18.9 Given tachycardi a, worsening SOB and productive cough, treated with 5 days of doxycyclin e for CAP at last visitInstr ucted to continue using incentive spirometry as much as possibleFe jamel barakat little isamarCont inue to monitor improvemen tFollow up in 1 month Mild inter mittent asthma [id number] J45.20 Hx of asthmaprn albuterol inhalerCon tinue ICSReturn and ED precaution s discussed Meralgia p aresthetica of left leg [id number] G57.12 physical exam suggestive of meralgia parestheti ca likely from being in a hospital bed for long period of timeDiscus sed conservati ve management including wearing lose fitting clothesPer formed OMT todayGiven home exercises and anticipato ry guidance 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 Treated with [...] Contreras Member ID Guarantor Name 12/06/2022 2 [facility] (MEDICAID HMO) [id number] Oscar Rehman [id number] Oscar Rehman 12/06/2022 1 [place] [id number] 1 Oscar Rehman [id number] Oscar Rehman 09/27/2023 1 [place] [id number] 1 Oscar Rehman [id number] Oscar Rehman 03/18/2024 1 [place] [id number] 1 Oscar Rehman [id number] Oscar Rehman 04/08/2024 1 [place] [id number] 1 Oscar Rehman [id number] Oscar Rehman 04/15/2024 1 [place] [id number] 1 Oscar Rehman [id number] Oscar Rehman Notes Date Note Type Note Provider Name and Address Organization Details Recorded Time 12/06/2022 text/html Pt presents as [facility] f/u for left wrist pain. Was seen in UC and prescribed prednisone, ibuprofen, and gabapentin. States the pain came on gradually without injury or trauma to wrist. Pt denies CP/SOB, F/C, LEACH/dizziness, abdominal pain, dysuria, leg pain or swelling. KATHRINE CROWLEY DO Attn: [address] [facility], [place], [address], [facility] 12/15/2022 11:00:05 09/27/2023 text/html Oscar is a 37-year-old male who presents to the clinic to establish care. Was previously seen in [place] by PCP and GI. 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 DEVI GOLD MD Attn: [address]ing[address] [place], [address], [facility] 10/07/2023 09:48:54 03/18/2024 text/html Oscar is a [...] and congestion medication. DEVI GOLD MD Attn: Accounting[address] [place], [address], [facility] 03/26/2024 22:11:39 04/08/2024 text/html 38 yo M presents to clinic after cholecystectomy 3 weeks ago at [place] complicated by infection and pneumonia. He was [...] up on Saturday. Katie Bal MD Attn: Accounting[address] , [place], [address], [facility] 04/10/2024 12:28:51 04/15/2024 text/html 38 yo M presents to clinic for follow up and OMT Had cholecystectomy 1 month ago at [place] complicated by infection and pneumonia. He was [...] surgery for follow up tomorrow. Merlene carbajal, [place] - [place] 04/21/2024 13:47:13
--- OUTSIDE RECORDS SUMMARY | 2024-07-15 14:25 | XMS_ITS | Clinical Summary ---
Author Organization [facility] Address [facility] [place] [address] Care Team Providers Care Char Dust Cleaner And Salvager Name Role Phone Starla Parham MD Primary Care Provider [phone] Allergies Active Allergy Reactions Criticality Noted Date [...] - 19+ 3-dose series) 10/21/2006 COVID-19 Vaccine (3 - 2023-2 5 season) 2023 03/03/2021, 02/03/2021 HPV Vaccines Aged Out No longer eligi ble based on patient's age to complete this topic Meningococcal B Vaccine Aged Out No l onger eligible based on patient's age to complete this topic Meningococcal Vaccine Aged Out No al angel eligible based on patient's age to complete this topic Pneumococcal Vaccine: Pediatrics (0 to 5 Years) and At-Risk Patients (6 to 49 Years) Aged Out No longer eligible b ased on patient's age to complete this topic RSV Immunizations Under 20 Months Aged Out No longer eligible b ased on patient's age to complete this topic Insurance [facility] Care Teams Char Dust Cleaner And Salvager Relationship Specialty Start Date End Date Starla Parham MD PCP - General FAMILY PRACTICE 11/17/20
== END 2024-07-15 14:23 | disposition home or self-care (01) ==
DX: S63.92XA Sprain of unspecified part of left wrist and hand, initial encounter (principal); I10 Essential (primary) hypertension; F17.210 Nicotine dependence, cigarettes, uncomplicated; W22.8XXA Striking against or struck by other objects, initial encounter
CPT/HCPCS: 73130; 99213; G0463

== ENCOUNTER 2024-07-31 06:12 | Emergency (ER) | payer BC, SELFPAY ==
--- NOTE | ~2024-07-31 | CT_ITS ---
History: Headache, history of stroke now with altered mental status PROCEDURE: CT head without contrast. COMPARISON: None TECHNIQUE: Axial imaging of the head performed from the skull base to the vertex without IV contrast. Sagittal a nd coronal reformations obtained. DLP: 605 mGy-cm FINDINGS: The ventricles are normal in size, shape and position. There is no mass, mass effect or midline shift. There is no abnormal extra-axial fluid collection or intracranial hemorrhage. Visualized paranasal sinuses are clear. The mastoid air cells are well aerated. No acute displaced fractures within the overlying cranium. Impression: No acute intracranial hemorrhage or suspicious mass effect. Reviewed, dictated and finalized at location [] Impression: No acute intracranial hemorrhage or suspicious mass effect.
[2024-07-31 06:11] VITALS: BP 142/76; PULSE 93; RESP 14; TEMP 36.6; O2SAT 99
[2024-07-31 06:15] VITALS: PULSE 93
--- NOTE | 2024-07-31 06:15 | ECG_ITS ---
Test Date: 2024-07-31 06:15:24 Measurements Intervals Fletcher Rate: 90 P: 50 OH: 169 QRS: 46 QRSD: 86 T: 57 QT: 343 QTc: 421 Interpretive Statements SINUS RHYTHM Compared to ECG 03/31/2024 01:27:17 Sinus tachycardia no longer present Electronically Signed On 07-31-2024 19:08:42 CDT by Ursula Huff
[2024-07-31 06:31] LABS: Basophils Percent Auto 0.5 % (0.2-1.2); Eosinophils Absolute Auto 0.1 K/mm3 (0-0.3); Eosinophils Percent Auto 1.1 % (0-4.4); Hematocrit 41.3 % (42.0-52.0); Hemoglobin 13.2 g/dL (14.0-18.0); Immature Granulocyte Absolute 0.05 K/mm3 (0.00-0.031); Immature Granulocyte Percent A 0.8 % (0-0.5); Lymphocytes Absolute Auto 1.97 K/mm3 (0.9-3.2); Mean Corpuscular Hemoglobin 27.9 pg (26-34); Mean Corpuscular Volume 87.3 fl (80-100); Mean Platelet Volume 9.7 fl (7.4-10.4); Monocytes Absolute Auto 0.5 K/mm3 (0.1-0.6); Monocytes Percent Auto 7.8 % (2.6-8.5); Neutrophils Absolute Auto 3.9 K/mm3 (1.3-6.7); Neutrophils Percent Auto 59.8 % (45.5-73.1); Platelet Count Result 251 k/mm3 (150-375); Red Blood Count 4.73 M/mm3 (4.6-6.20); Red Cell Distribution Width 12.3 % (11.5-14.5); White Blood Count 6.6 K/mm3 (4.5-10.0)
[2024-07-31 06:40] LABS: Add Urine Microscopic? NO; Appearance Urine Clear (Clear); Bilirubin Urine Negative (Negative); Blood Urine Negative (Negative); Color Urine Yellow (Yellow); Glucose Urine UA Negative (Negative); Ketones Urine Negative (Negative); Leukocyte Esterase Ur Negative LEU/UL (Negative); Nitrate Urine Negative (Negative); Protein Urine Negative (Negative); Specific Grav Ur 1.009 (1.001-1.035); Urobilinogen Urine 0.2 mg/dL (<2.0)
[2024-07-31 06:41] LABS: Alanine Aminotransferase 57 U/L (6-50); Albumin Level 4.4 g/dL (3.5-5.1); Alkaline Phosphatase 79 U/L (38-126); Anion Gap 10 mmol/L (4-12); Aspartate Amino Transferase 31 U/L (17-59); Bilirubin,Total 0.5 mg/dL (0.2-1.3); Blood Urea Nitrogen 13 mg/dL (9-20); Calcium 9.3 mg/dL (8.4-10.2); Carbon Dioxide 24 mmol/L (22-30); Chloride 103 mmol/L (98-107); Estimated CRCL calculation 141 ml/min; Estimated Glomerular Filt Rate > 60; Glucose 144 mg/dL (65-110); Potassium 3.8 mmol/L (3.4-5.0); Sodium 137 mmol/L (137-145)
[2024-07-31 06:43] LABS: INR 0.9; Partial Thromboplastin Time 32.4 Seconds (22.3-36.8); Prothrombin Time 12.6 Seconds (11.1-14.7)
--- NOTE | 2024-07-31 07:05 | ED.AMS ---
HPI - Altered Mental Status General Chief Complaint: Altered Mental Status Stated Complaint: altered LOC Time Seen by Provider: 07/31/24 07:02 History of Present Illness HPI narrative: Pt presents with drowsiness and confusion this morning and thanks he may have been over medicated at facility. Pt has no specific complaints other than LEACH. Related Data Home Medications ?Medication ?Instructions ?Recorded ?Confirmed ?Last Taken ?Type pantoprazole 40 mg tablet,delayed 40 mg PO HS 03/05/23 04/27/24 03/27/24 History release amitriptyline 25 mg tablet 25 mg PO HS 02/17/24 04/27/24 03/27/24 History amlodipine 10 mg tablet 10 mg PO HS 02/17/24 04/27/24 03/27/24 History cholecalciferol (vitamin D3) 25 25 mcg PO HS 02/17/24 04/27/24 03/27/24 History mcg (1,000 unit) tablet albuterol sulfate 90 mcg/actuation 2 puff inhalation Q6H PRN 03/20/24 04/27/24 Unknown History aerosol inhaler shortness of breath or wheezing linaclotide 145 mcg capsule 145 mcg PO DAILY 03/20/24 04/27/24 03/27/24 History (Linzess) metformin 500 mg tablet 500 mg PO BID 03/28/24 04/27/24 03/27/24 History Allergies Allergy/AdvReac Type Severity Reaction Status Date / Time morphine Allergy Severe SEIZURE Verified 07/31/24 06:16 lisinopril AdvReac Intermediate Cough Verified 07/31/24 06:16 Review of Systems Review of Systems: All systems reviewed & are unremarkable except as noted in HPI and below PMFSH Past Medical History Medical History (Updated 07/31/24 @ 12:28 by Remedios Coleman MD) Spasm Uncontrolled type 2 diabetes mellitus with hyperglycemia Diabetes Anxiety Depression Back pain Ankle fracture Hand fracture, right Vertebral fracture hairline thoracic vertebra fracture UTI (urinary tract infection) Kidney stones GI bleed GERD (gastroesophageal reflux disease) IBS (irritable bowel syndrome) History of rectal polyps Pancreatitis Ulcerative colitis Pneumonia Bronchitis Asthma HTN (hypertension) Surgical History Surgical History History of laparoscopic cholecystectomy 03/21/2024 Hx laparoscopic cholecystectomy Hx of tonsillectomy Family History Family History Father Lung cancer Grandparent Carcinoma of colon Pancreatic cancer Sibling Testicular cancer Social History Social History Social History: Caffeine-daily Smoking packs per day: 0.5 Smoking cigarettes per day: 10.0 Years smoked: 2 Smoking pack-years: 1.00 Smoking status: Never smoker Tobacco type: cigarettes Second hand tobacco smoke exposure: No Additional smoking assessment comments: STOPPED SMOKING 2009 Alcohol intake: current Drinks per week: 1 Alcohol use details: socially Substance use: never Substance use type: does not use Last use: 5 YRS Do You Feel Safe in your Home?: Yes Lack of Transportation: No Lack of Food: Never True Current Housing: I Have Housing Concerned About Future Housing: No Difficulty Paying Gas/Electric Bills: No Difficulty Paying for Meds: No Currently Unemployed: No Education: High School Diploma/GED Difficulty w/ Childcare or Family Care: No Living arrangements: with family Occupation/Education: occupation 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[employer] Gender identity (if verbalized by the patient): Male Sexual Orientation (if Verbalized by the Patient): Straight or Heterosexual Spiritual care concerns: No Agree to blood products: Yes Exam Const: General: no acute distress Nutritional Appearance: obese Orientation/consciousness: patient oriented x3 HENMT: Head: normal to inspection Resp: Effort & Inspection: normal respiratory effort Auscultation: clear to auscultation bilaterally Cardio: Rate: regular rate Rhythm: regular rhythm GI: GI Palp: Yes Soft to palpation and No Tenderness to palpation present (GI) Auscultation: normal bowel sounds Skin: General skin exam: normal color Wounds: no wounds Neuro: General: patient oriented x3, moves all extremities and no meningeal signs Speech: normal speech Other: weakness t left side (baseline from prior cva) Extrem: General: normal to inspection and no clubbing, cyanosis or edema Psych: Attitude: cooperative Course Vital Signs Vital signs: Vital Signs Temperature 98 F 07/31/24 06:11 Pulse Rate 93 07/31/24 06:11 Respiratory Rate 14 07/31/24 06:11 Blood Pressure 142/76 H 07/31/24 06:11 Pulse Oximetry 99 07/31/24 06:11 Oxygen Delivery Room Air 07/31/24 06:11 Temperature 98 F 07/31/24 10:00 Pulse Rate 95 07/31/24 10:00 Respiratory Rate 16 07/31/24 10:00 Blood Pressure 118/74 07/31/24 10:00 Pulse Oximetry 99 07/31/24 10:00 Oxygen Delivery Room Air 07/31/24 06:11 MDM - Altered Mental Status MDM Narrative Medical decision making narrative: Pt presents with drowsiness and altered LOC. Pt thinks he got too much medicine. Pt denies cough or urinary symptoms. Will get labs and UA to rule out infection and CT brain since has LEACH to rule out intracranial bleed or issues. labs and ct all fine likely medication issue. back to facility Lab Data 07/31/24 06:25 07/31/24 06:25 Labs: Lab Results 07/31/24 07/31/24 Range/Units 06:25 06:32 WBC 6.6 (4.5-10.0) K/mm3 RBC 4.73 (4.6-6.20) M/mm3 Hgb 13.2 L (14.0-18.0) g/dL Hct 41.3 L (42.0-52.0) % MCV 87.3 (80-100) fl MCH 27.9 (26-34) pg MCHC 32.0 (32-36) g/dl RDW 12.3 (11.5-14.5) % Plt Count 251 (150-375) k/mm3 MPV 9.7 (7.4-10.4) fl Immature Gran % (Auto) 0.8 H (0-0.5) % Neut % (Auto) 59.8 (45.5-73.1) % Lymph % (Auto) 30.0 (18.3-44.2) % [place] % (Auto) 7.8 (2.6-8.5) % Eos % (Auto) 1.1 (0-4.4) % Baso % (Auto) 0.5 (0.2-1.2) % Lymph # (Auto) 1.97 (0.9-3.2) K/mm3 [place] # (Auto) 0.5 (0.1-0.6) K/mm3 Eos # (Auto) 0.1 (0-0.3) K/mm3 Baso # (Auto) 0.0 (0.0-0.1) K/mm3 Abs Immat Gran (auto) 0.05 H (0.00-0.031) K/mm3 Absolute Neuts (auto) 3.9 (1.3-6.7) K/mm3 Absolute Nucleated RBC 0.000 (0.0-0.012) K/mm3 Nucleated RBC % 0.0 (0.0-0.2) % PT 12.6 (11.1-14.7) Seconds INR 0.9 APTT 32.4 (22.3-36.8) Seconds Sodium 137 (137-145) mmol/L Potassium 3.8 (3.4-5.0) mmol/L Chloride 103 (98-107) mmol/L Carbon Dioxide 24 (22-30) mmol/L Anion Gap 10 (4-12) mmol/L BUN 13 (9-20) mg/dL Creatinine 0.94 (0.7-1.3) mg/dL Estim Creat Clear Calc 141 ml/min Estimated GFR > 60 (59 - ) Glucose 144 H (65-110) mg/dL Calcium 9.3 (8.4-10.2) mg/dL Total Bilirubin 0.5 (0.2-1.3) mg/dL AST 31 (17-59) U/L ALT 57 H (6-50) U/L Alkaline Phosphatase 79 (38-126) U/L Total Protein 7.0 (6.3-8.2) g/dL Albumin 4.4 (3.5-5.1) g/dL Urine Color Yellow (Yellow) Urine Appearance Clear (Clear) Urine pH 7.0 (5.0-9.0) Ur Specific [place] 1.009 (1.001-1.035) Urine Protein Negative (Negative) mg/dL Urine Glucose (UA) Negative (Negative) mg/dL Urine Ketones Negative (Negative) mg/dL Ur Blood (Man) Negative (Negative) Urine Nitrate Negative (Negative) Urine Bilirubin Negative (Negative) Urine Urobilinogen 0.2 (<2.0) mg/dL Leukocyte Esterase Rfl Negative (Negative) LALITO/UL Discharge Plan Discharge Clinical Impression: Altered mental status Patient Disposition: NH Correction/Asst Living Condition: Improved Instructions: Antibiotic Form, Altered Mental Status (ED) Patient Language: Colombian Prescriptions: No Action amitriptyline 25 mg tablet 25 mg PO HS amlodipine 10 mg tablet 10 mg PO HS cholecalciferol (vitamin D3) 25 mcg (1,000 unit) tablet 25 mcg PO HS pantoprazole 40 mg tablet,delayed release (DR/EC) 40 mg PO HS Linzess 145 mcg capsule 145 mcg PO DAILY albuterol sulfate 90 mcg/actuation HFA aerosol inhaler 2 puff INHALATION Q6H PRN (Reason: shortness of breath or wheezing) metformin 500 mg tablet 500 mg PO BID Follow-up/Referrals: PHYSICIAN NOT ON STAFF,NONSTAFF [Non-Staff] -
[2024-07-31 07:15] VITALS: BP 139/84; PULSE 86; RESP 14; O2SAT 97
--- OUTSIDE RECORDS SUMMARY | 2024-07-31 07:34 | XMS_ITS | Encounter Summary ---
Author Organization [facility] Healthcare Address [address] [place] [address] Care Team Providers Care Land Surveyor Name Role Phone Nikky Cunningham MD Primary Care Provider Encounter Details Date Type Department Care Team (Late st Contact Info) Description 07/28/2024 Results Follow-Up [facility] Medical Group Gastroenterology at [address] [place] [id number] Rubio Martinez NP 4 [facility] [address] [place] [address] Social History Tobacco Use Types Packs/Day Years Used Date Smoking Tobacco: Never Smokeless Tobacco: Never Alcohol Use Standard Drinks/Week Comments Yes 0 (1 standard drink = 0.6 oz pur e alcohol) rarely [facility] Utilities Answer Date Recorded In the past 12 months has [employer], gas, oil, or water [employer] threatened to shut off services in your home? No 07/23/2024 Social Connection and Isolat ion Panel [NHANES] Answer Date Recorded In a typical week, how many times do you talk on the phone with family, friends, or neighbors? More than three times a week 07/23/2024 How often do you get togethe r with friends or relatives? Twice a week 07/23/2024 How often do you attend chur ch or scientologist services? 1 to 4 times per year 07/23/2024 Do you belong to any clubs o r organizations such as protestant groups, unions, fraternal or athletic groups, or school groups? No 07/23/2024 How often do you attend meet ings of the clubs or organizations you belong to? Never 07/23/2024 Are you , , di vorced, , never , or living with a partner? Living with partner 07/23/2024 AUDIT-C Answer Date Recorded Q1: How often do you have a drink containing alcohol? Never 07/06/2024 Q2: How many drinks containi ng alcohol do you have on a typical day when you are drinking? Patient does not drink Frequency of Binge Drinking Not on file 09/2024 Overall Financial Resource Strain (CARDIA) Answe r Date Recorded How hard is it for you to pa y for the very basics like food, housing, medical care, and heating? Not hard at all 07/23/2024 Hunger Vital Sign Answer Date Recorded Within the past 12 months, y ou worried that your food would run out before you got the money to buy more. Never true 07/24/19 25 Within the past 12 months, t he food you bought just didn't last and you didn't have money to get more. Never true 07/23/2024 PRAPARE - Transportation Answer Date Re corded In the past 12 months, has l ack of transportation kept you from medical appointments or from getting medications? No 07/01 In the past 12 months, has l ack of transportation kept you from meetings, work, or from getting things needed for daily living? No 07/23/2024 Housing Stability Vital Sign Answer Nj e [...] in a fci (including now)? No 06/20/2023 Housing Stability Vital Sign Answer Nj e Recorded In the last 12 months, was t here a time when you were not able to pay the mortgage or rent on time? Yes 07/23/2024 In the past 12 months, how m any times have you moved where you were living? 0 07/23/2024 At any time in the past 12 m onths, were you homeless or living in a fci (including now)? No 07/23/2024 Personal Safety Answer Date Recorded Have you ever been in or are you currently in a harmful physical or emotional relationship or is someone making you feel afraid or unsafe? Denies 07/23/2024 Education Answer Date Recorded What is the highest level of school you have completed or the highest degree you have received? 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 X-ray showed scattered stool in the colon, but no significant constipation. I see your recent abdominal CT was okay as well. I realize youare going through a lot right now and have recently been admitted to [facility]. Please follow up with me once you get home if you are having any GI issues at that time. I wish you the best. Sincerely, NIECY Vaughan documented in this encounter Plan of Treatment Not on file documented as of this encounter Visit Diagnoses Not on filedocumented in this encounter Care Teams Land Surveyor Relationship Specialty Start Date End Date Nikky Cunningham MD [address] [place] [address] [address] [place] [address] PCP - General Family Medicine 07/23/24 documented as of this encounter
--- OUTSIDE RECORDS SUMMARY | 2024-07-31 07:34 | XMS_ITS | Encounter Summary ---
Author Organization [facility] Health Address [address] [place] [address] Care Team Providers Care Solvent Recoverer Name Role Phone ParksSara IRONER-HAND FLATWORK FINISHER Primary Care Provider Oscar Siegel MD Primary Care Provider [phone] Dominguez Mena DO Primary Care Provider [phone] Oscar iSegel MD Primary Care Provider [phone] Encounter Details Date Type Department Care Team (Late st Contact Info) Description 12/01/2019 Lab Requisition [facility] [address] [place] [id number] Aimee Hays MD [address] [place] [address] Social History Tobacco Use Types Packs/Day Years Used Date Smoking Tobacco: Never Smokeless Tobacco: Never Alcohol Use Standard Drinks/Week Comments Yes 0 (1 standard drink = 0.6 oz pur e alcohol) OCCASSIONALLY Sex and Gender Information Value Date Recorded Sex Assigned at Not on file 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 Gender Identity Not on file Sexual Orientation Not on file documented as of this encounter Plan of Treatment Not on file documented as of this encounter Procedures Procedure Name Priority Date/Time Associated Diagnosis Comments DERMATOPATHOLOGY Routine 11/30/2019 12:0 0 AM CDT documented in this encounter Results * DERMATOPATHOLOGY (11/30/2019 12:00 AM CDT) Case Report Dermatopathology Report Case: [id number] Authorizing Provider: Aimee Hays MD Collected: 11/30/2019 12:00 AM Ordering Location: [facility] Received: 12/01/2019 09:32 AM Pathologist: [...] specimen consists of a shave biopsy measuring [id number], bisected. Jar 0. 0 2:34 PM CDT [...] characteristic determined by the Dermatopathology Laboratory at [facility], directed by Dr. Jacklyn Jo. These tests need not be, and therefore are not, approved by the [place] Food and Drug Administration. The tests are used for clinical purposes. Billing Codes Specimen Charges Stain Charges 23420 1 0 2:34 PM CDT DERMATOPATHOLOGY LABORATORY Embedded Images 0 2:34 PM CDT DERMATOPATHOLOGY LABORATORY Pathology/Cytolog y TISSUE SPECIMEN FROM SKIN / Unknown 11/30/2019 12/01/2019 9:32 AM CDT Aimee Hays MD LAB - PATHOLOGY/CYTOLOGY ORDERABLES Final Result DERMATOPATHOLOGY LABORATORY [facility] - Department of Dermatology [facility] Specialized Medicine [address] [facility] [place] [address], [facility] [phone] documented in this encounter Visit Diagnoses Not on filedocumented in this encounter Care Teams Solvent Recoverer Relationship Specialty Start Date End Date Sara Parks, IRONER-HAND FLATWORK FINISHER [address] [place] [address] PCP - General 10/28/17 04/25/20 [place] [address] [place] [address] [address] [place] [address] PCP - General 04/26/20 06/15/20 Dominguez Mena DO [address] [address] PCP - General Family Medicine 06/16/20 06/29/20 Oscar Siegel MD [address] [facility] [address] [place] [address] PCP - General 06/30/20 11/07/22 documented as of this encounter
--- OUTSIDE RECORDS SUMMARY | 2024-07-31 07:34 | XMS_ITS | Clinical Summary ---
Author Organization [facility] at the [facility] Office Center Address [address] [place] [address] Care Team Providers Care Research Investigator Name Role Phone Nikky Cunningham MD Primary Care Provider Allergies Active Allergy Reactions Criticality Noted Date Comments Lisinopril Cough Low 06/19/2023 Morphine Palpitations,Other ( See comments) High 07/11/2018 Bradycardia. Medications albuterol HFA (PROVENTIL HFA,VENTOLIN HFA,PROAIR HFA) 90 mcg/actuation inhaler TAKE 2 PUFFS BY MOUTH EVERY 6 HOURS NEEDED FOR WHEEZE OR SHORTNESS OF BREATH 020 Active amLODIPine (NORVASC) 10 mg tablet Take 1 tablet (10 mg total) by mouth daily 022 Active amitriptyline (ELAVIL) 25 mg tablet Take 1 tablet (25 mg total) by mouth nightly 90 tablet [address] (PROTONIX) 40 mg EC tablet Take 1 tablet (40 mg total) by mouth daily 90 tablet 3 024 Active cholecalciferol (VITAMIN D-3) 25 mcg (1,000 unit) tablet Take 1 tablet (1,000 Units total) by mouth daily 90 tablet 3 024 2024 Active linaCLOtide (LINZESS) 145 mcg capsule Take 1 capsule (145 mcg total) by mouth daily 90 capsule 3 024 Active losartan (COZAAR) 50 mg tablet Take 1 tablet (50 mg total) by mouth daily 1 tablet 025 Active aspirin 81 mg chewable tablet Take 1 tablet (81 mg total) by mouth daily 025 2024 Active atorvastatin (LIPITOR) 40 mg tablet Take 1 tablet (40 mg total) by mouth daily 2025 Active metoprolol XL (TOPROL-XL) 50 mg extended release tablet Take 1 tablet (50 mg total) by mouth daily 2025 Active metFORMIN (GLUCOPHAGE) 500 mg tablet Take 2 tablets (1,000 mg total) by mouth 2 (two) times a day with meals Active insulin glargine 100 unit/mL (3 mL) pen for injection Inject 8 Units under the skin nightly Active insulin lispro (HumaLOG, ADMELOG) 100 unit/mL pen for injectionIndicati ons:type 2 diabetes mellitus Inject 1-5 units under the skin 3 (three) times a day with meals. Blood glucose mg/dL 150-199: 1 unit, 200-249: 2 units, 250-299: 3 units, 300-349: 4 units, 350 or greater: 5 units. Notify provider for blood glucose greater than 299 mg/dL. Refer to After Visit Summary for Sliding Scale Insulin Instructions. Active blood sugar diagnostic (ONETOUCH VERIO TEST STRIPS [facility]) OneTouch Verio test strips 2024 Discontinued atorvastatin (LIPITOR) 40 mg tablet 2024 Discontinued(T herapy completed) metFORMIN (GLUCOPHAGE) 500 mg tablet Take 1 tablet (500 mg total) by mouth 2 (two) times a day with meals 022 2024 Discontinued ondansetron ODT (ZOFRAN-ODT) 4 mg disintegrating tablet Take 1 tablet (4 mg total) by mouth every 6 (six) hours 20 tablet 5 024 2024 Discontinued(T herapy completed) dicyclomine (BENTYL) 20 mg tabletIndications :Irritable Bowel Syndrome Take 1 tablet (20 mg total) by mouth 4 (four) times a day as needed (abdominal cramping/pain or problematic diarrhea driven by cramping) 120 tablet 3 024 2024 Discontinued simethicone (MYLICON) 125 mg chewable tablet Take 1 tablet (125 mg total) by mouth 4 (four) times a day as needed (cramping/bloat ing/gas/nausea) 120 tablet 3 024 2024 Discontinued(T herapy completed) polyethylene glycol (MIRALAX) 17 gram/dose bulk powder Take one capful of MiraLax three nights weekly for constipation management. 595 g 1 024 2024 Discontinued(T herapy completed) butalbital-acetam inophen-caffeine (ESGIC) 50-325-40 mg per tabletIndications :Tension-Type Headache Take 1 tablet by mouth every 4 (four) hours as needed for headaches 12 tablet 025 2024 Discontinued(S top Taking at Discharge) losartan (COZAAR) 25 mg tablet Take 1 tablet (25 mg total) by mouth daily 025 2024 Discontinued(S top Taking at Discharge) Active Problems Problem Noted Date Diagnosed Date CVA (cerebral vascular accident) 07/25/2024 Stroke-like symptoms 07/23/2024 BRBPR (bright red blood per rectum) 05/22/2024 [...] Encounters Date Type Department Care Team Description 07/28/2024 Results Follow-Up [facility] Gastroenterology at [address] [place] [address] Rubio Martinez NP 07/24/2024 Telephone [facility] [place] [place] [facility] [address] [place] [address] [address] [place] [address] Sharifa Navarrete NP 07/22/2024 10:13 PM CDT - 07/27/2024 4:09 PM CDT Hospital Encounter [facility] [address] [address] Huey Kwon MD Lo Bianco, Salvador, MD Bross, Deborah L F D, MD Stroke-like symptoms (Primary Dx); Chest pain, unspecified type; Acute nonintractable headache, unspecified headache type; Cerebrovascular accident (CVA), unspecified mechanism (HCC); Essential hypertension; Type 2 diabetes mellitus without complication, without long-term current use of insulin (HCC); STACIE (obstructive sleep apnea); Gastroesophageal reflux disease without esophagitis Discharge Disposition: Discharge to an Rehab facility 07/22/2024 11:57 AM CDT - 07/22/2024 11:59 PM CDT Hospital Encounter [facility] [address] [place] [address] Irritable bowel syndrome with both constipation and diarrhea Discharge Disposition: Discharge to home or self care 07/19/2024 11:17 PM CDT - 07/20/2024 3:44 AM CDT Emergency [facility] Emergency Department [address] [place] [address] Roma Alva MD Other headache syndrome (Primary Dx) Discharge Disposition: Discharge to home or self care 07/19/2024 10:48 PM CDT - 07/19/2024 11:59 PM CDT Hospital Encounter [facility] Emergency, Room R Discharge Disposition: Discharge to home or self care 07/06/2024 9:30 AM CDT Office Visit [facility] G[facility] at [address] [place] [address] Rubio Martinez NP Anal fissure (Primary Dx); Irritable bowel syndrome with both constipation and diarrhea; Superficial gastritis without hemorrhage, unspecified chronicity; Erosive esophagitis; Nausea without vomiting; RUQ pain; Tubular adenoma of colon; Hepatic steatosis 06/24/2024 11:34 AM CDT Anesthesia Event [address] [address] Alisha Hidalgo MD 06/24/2024 11:00 AM CDT - 06/24/2024 11:30 AM CDT Surgery [address] [address] Allan Peñaloza MD SIGMOIDOSCOPY 06/24/2024 9:24 AM CDT - 06/24/2024 12:45 PM CDT Hospital Encounter [address] [address] Allan Peñaloza MD Discharge Disposition: Discharge to home or self care 05/28/2024 Telephone [facility] Gastroenterology at [address] [address] Allyn Johnson Sigmoidoscopy Reschedule 05/22/2024 Telephone [facility] Gastroenterology at [address], [place] [address] Allyn Johnson Schedule Sigmoidoscopy from Last 3 Months Immunizations Immunization Administration Dates Next Due Influenza, Quadrivalent, Split, Intramuscular Surgical History Surgery Date Site/Laterality Comments COLONOSCOPY 06/24/2024 CHOLECYSTECTOMY 03/01/2024 - 03/31/2024 Medical History Medical History Date Comments Asthma [...] = 0.6 oz pur e alcohol) rarely [facility] Utilities Answer Date Recorded In the past 12 months has e [employer], gas, oil, or water company threatened to [...] often do you attend chur ch or adventist services? 1 to 4 times per year [...] in a fpc (including now)? No 06/20/2023 Housing Stability Vital Sign Answer Nj e Recorded In the last 12 months, was t here a time when you were not able to pay the mortgage or rent on time? Yes 07/23/2024 In the past 12 months, how m any times have you moved where you were living? 0 07/23/2024 At any time in the past 12 m [facility], were you homeless or living in a fpc (including now)? No 07/23/2024 Personal Safety Answer [...] on file Legal Sex Male 7:25 PM [employer] Gender Identity Not on file Sexual Orientation Not on file Obstetrics History Last Filed Vital Signs Vital Sign Reading Time Taken Comments Blood Pressure 119/75 07/27/2024 2:12 PM CDT Pulse 80 07/27/2024 2:12 PM CDT Temperature 36.3 C (97.3 F) 07/27/2024 10:28 AM CDT Respiratory Rate 20 07/26/2024 11:10 PM CDT Oxygen Saturation 96% 07/27/2024 2:12 PM CDT Inhaled Oxygen Concentration - - Weight 155 kg (341 lb 11.4 oz) 07/26/2024 2:49 A M CDT Height 180.3 cm (5' 11 ) 07/23/2024 1:45 AM CDT Body Mass Index 47.66 07/23/2024 1:45 AM CDT Plan of Treatment Health Maintenance Due Date Last Done Comments Albumin Creatinine Ratio, Urine 1987 Depression Screening 1987 Dilated Eye Exam 1987 Foot Exam 1987 DTaP/Tdap/Td Vaccine (1 - Tdap) 10/21/1998 Varicella Vaccines (1 of 2 - 13+ 2-dose series) 10/21/2000 Hepatitis B Screening 10/21/2005 Regular Well Visit/Exam 18-64 10/21/2005 Pneumococcal vaccine <65 (1 of 2 - PCV) 10/21/2006 Covid-19 Vaccine (3 - season) 2023 03/03/2021, 02/03/2021 Influenza Vaccine (Season Ended) 2024 01/30/2018 Hemoglobin A1C 01/22/2025 07/23/2024, 09/25/2019 Lipid Panel 07/23/2025 07/23/2024, 09/25/2019 eGFR 07/27/2025 07/27/2024, 07/01, 07/25/2024, Additional history exists Hepatitis C Screening Completed 09/25/2019 HPV Vaccines Aged Out No longer eligi ble based on patient's age to complete this topic Procedures Procedure Name Priority Date/Time Associated Diagnosis Comments POCT GLUCOSE DEVICE Routine 07/27/2024 1 1:42 AM CDT POCT GLUCOSE DEVICE Routine 07/27/2024 8 :13 AM CDT EGFR Routine 07/27/2024 6:37 AM CDT DIFFERENTIAL AUTO Routine 07/27/2024 6:3 7 AM CDT COMPREHENSIVE METABOLIC PANEL Routine 07/27/2024 6:37 AM CDT CBC WITH AUTO DIFFERENTIAL Routine 07/27/2024 6:37 AM CDT POCT GLUCOSE DEVICE Routine 07/27/2024 2 :58 AM CDT POCT GLUCOSE DEVICE Routine 07/26/2024 8 :22 PM CDT POCT GLUCOSE DEVICE Routine 07/26/2024 4 :38 PM CDT POCT GLUCOSE DEVICE Routine 07/26/2024 1 1:27 AM CDT POCT GLUCOSE DEVICE Routine 07/26/2024 7 :53 AM CDT EGFR Routine 07/26/2024 5:46 AM CDT DIFFERENTIAL AUTO Routine 07/26/2024 5:4 6 AM CDT COMPREHENSIVE METABOLIC PANEL Routine 07/26/2024 5:46 AM CDT CBC WITH AUTO DIFFERENTIAL Routine 07/26/2024 5:46 AM CDT POCT GLUCOSE DEVICE Routine 07/26/2024 2 :48 AM CDT POCT GLUCOSE DEVICE Routine 07/25/2024 8 :31 PM CDT POCT GLUCOSE DEVICE Routine 07/25/2024 4 :26 PM CDT POCT GLUCOSE DEVICE Routine 07/25/2024 1 1:49 AM CDT POCT GLUCOSE DEVICE Routine 07/25/2024 7 :38 AM CDT EGFR Routine 07/25/2024 4:15 AM CDT DIFFERENTIAL AUTO Routine 07/25/2024 4:1 5 AM CDT COMPREHENSIVE METABOLIC PANEL Routine 07/25/2024 4:15 AM CDT CBC WITH AUTO DIFFERENTIAL Routine 07/25/2024 4:15 AM CDT POCT GLUCOSE DEVICE Routine 07/25/2024 2 :14 AM CDT POCT GLUCOSE DEVICE Routine 07/24/2024 8 :09 PM CDT POCT GLUCOSE DEVICE Routine 07/24/2024 4 :49 PM CDT POCT GLUCOSE DEVICE Routine 07/24/2024 1 1:23 AM CDT MRI BRAIN WO CONTRAST IP Routine 07/24/2024 10:14 AM CDT POCT GLUCOSE DEVICE Routine 07/24/2024 8 :04 AM CDT EGFR Routine 07/24/2024 4:12 AM CDT CBC WITHOUT DIFFERENTIAL Routine 07/24/2024 4:12 AM CDT BASIC METABOLIC PANEL Routine 07/24/2024 4:[address] HEAD WO CONTRAST IP Routine 07/24/2024 1 :07 AM CDT POCT GLUCOSE DEVICE Routine 07/23/2024 9 :23 PM CDT POCT GLUCOSE DEVICE Routine 07/23/2024 4 :40 PM CDT POCT GLUCOSE DEVICE Routine 07/23/2024 1 2:04 PM CDT TRANSTHORACIC ECHO (TTE) COMPLETE W DOPPLER/CF WO CONTRAST W BUBBLE Routine 07/23/2024 11:49 AM CDT POCT GLUCOSE DEVICE Routine 07/23/2024 7 :37 AM CDT EGFR Routine 07/23/2024 6:59 AM CDT ANTIBODY SCREEN STAT 07/23/2024 6:59 AM CDT ABO/RH STAT 07/23/2024 6:59 AM CDT HEMOGLOBIN A1C Routine 07/23/2024 6:59 AM CDT LIPID PANEL Routine 07/23/2024 6:59 AM CDT BASIC METABOLIC PANEL Routine 07/23/2024 6:59 AM CDT CBC WITHOUT DIFFERENTIAL Routine 07/23/2024 6:59 AM CDT TYPE AND SCREEN STAT 07/23/2024 6:59 AM CDT INFECTION PREVENTION MRSA ONLY (STAPHYLOCOCCUS AUREUS) PCR Routine 07/23/2024 3:33 AM CDT POCT GLUCOSE DEVICE Routine 07/23/2024 3 :11 AM CDT ECG 12-LEAD Routine 07/23/2024 1:16 AM CDT CRITICAL CARE Routine 07/23/2024 12:48 AM CDT Stroke-like symptoms XR CHEST 1 VIEW ED 07/22/2024 11:45 PM CDT URINALYSIS AND REFLEX TO MICROSCOPIC AND CULTURE STAT 07/22/2024 11:28 PM CDT CTA CHEST ABDOMEN PELVIS ED 07/22/2024 11:15 PM CDT ECG 12-LEAD STAT 07/22/2024 10:[address] STROKE PROTOCOL W WO CONTRAST Critical/Life-T hreatening 07/22/2024 10:52 PM CDT EGFR STAT 07/22/2024 10:44 PM CDT DIFFERENTIAL AUTO STAT 07/22/2024 10: 44 PM CDT SEPSIS LACTATE WITH REFLEX STAT 07/22/2024 10:44 PM CDT BLOOD GAS, VENOUS STAT 07/22/2024 10: 44 PM CDT MAGNESIUM Routine 07/22/2024 10:44 PM CDT TROPONIN T HIGH-SENSITIVITY SERIES (BASELINE, 2HR, 4HR, 6HR) STAT 07/22/2024 10:44 PM CDT APTT STAT 07/22/2024 10:44 PM CDT PROTIME-INR STAT 07/22/2024 10:44 PM CDT COMPREHENSIVE METABOLIC PANEL STAT 07/22/2024 10:44 PM CDT CBC WITH AUTO DIFFERENTIAL STAT 07/22/2024 10:[address] STROKE PROTOCOL WO CONTRAST Critical/Life-T hreatening 07/22/2024 10:28 PM CDT POCT GLUCOSE DEVICE Routine 07/22/2024 1 0:08 PM CDT XR KUB Schedule PARAMJIT, Read Routine (Patient lives out of area) 07/22/2024 12:08 PM CDT Irritable bowel syndrome with both constipation and diarrhea POCT GLUCOSE DEVICE Routine 07/20/2024 1 2:[address] HEAD WO CONTRAST ED 07/19/2024 1 1:48 PM CDT EGFR Add On 07/19/2024 11:19 PM CDT DIFFERENTIAL AUTO Add On 07/19/2024 11: 19 PM CDT CBC WITH AUTO DIFFERENTIAL Add-On 07/19/2024 11:19 PM CDT BASIC METABOLIC PANEL Add-On 07/19/2024 11:19 PM CDT SIGMOIDOSCOPY 06/24/2024 11:29 AM CDT BRBPR (bright red blood per rectum) Rectal pain Hemorrhoids, unspecified hemorrhoid type POCT GLUCOSE DEVICE Routine 06/24/2024 1 0:12 AM CDT FLEXIBLE SIGMOIDOSCOPY 06/24/2024 9:42 AM CDT HEPATITIS PANEL, ACUTE Routine 09/25/2019 7:23 AM CDT from Last 3 Months or Most Recently Relevant to Health Maintenance Results * (ABNORMAL) POCT glucose (07/27/2024 11:42 AM CDT) Glucose, POC 230(H) 70 - 199 mg/dL Blood 07/27/2024 11:4 2 AM CDT 07/27/2024 11:42 AM CDT us Kassi Johnson MD LAB POCT ORDERABLES - DEV ICE Final Result [facility]) 1 [facility] [place], [place] [id number] * POCT glucose (07/27/2024 8:13 AM CDT) Glucose, POC 158 70 - 199 mg/dL Blood 07/27/2024 8:13 AM CDT 07/27/2024 8:13 AM CDT Kassi Johnson MD LAB POCT ORDERABLES - DEV ICE Final Result [facility] ([place]) 1 [facility] [place] [address] * eGFR (07/27/2024 6:37 AM CDT) eGFR >90 >=60 mL/min/1. 73 m2 [...] interpretive data was last reviewed 2021. Blood 07/27/2024 6:37 AM CDT 07/27/2024 6:52 AM CDT us Kassi Johnson MD LAB BLOOD ORDERABLES Marylu l Result [facility] ([place]) 1 [facility] [place] [address] * Differential, auto (07/27/2024 6:37 AM CDT) Neutrophil abs 3.34 1.50 - 6.50 K/cumm Imm gran abs 0.07 0.00 - 0.10 K/cumm [facility] ([facility]) Lymphocyte abs 2.02 0.80 - 3.30 K/cumm [facility] ([place]) Monocyte abs 0.56 0.20 - 0.80 K/cumm [facility] ([place]) Eosinophil abs 0.09 0.00 - 0.50 K/cumm [facility] ([place]) Basophil abs 0.04 0.00 - 0.10 K/cumm [facility] ([place]) Neutrophil pct 54.5 % [facility] ([place]) Comment: Interpretive [...] was last revised on 2017. Lymphocyte pct 33.0 % [facility] ([place]) Comment: Interpretive Data Percent cell count reference ranges are not reported, since discordance with absolute values may lead to misinterpretation of CBC data. Current Interpretive Data was last revised on 2017. Monocyte pct 9.2 % [facility] ([place]) Comment: Interpretive Data Percent cell count reference ranges are not reported, since discordance with absolute values may lead to misinterpretation of CBC data. Current Interpretive Data was last revised on 2017. Eosinophil pct 1.5 % [facility] ([place]) Comment: Interpretive [...] Data was last revised on 2017. Blood 07/27/2024 6:37 AM CDT 07/27/2024 6:52 AM CDT us Kassi Johnson MD LAB BLOOD ORDERABLES Marylu jeffery Result [facility] ([place]) 1 [facility] [place] [address] * CBC with auto differential (07/27/2024 6:37 AM CDT) WBC 6.12 3.80 - 9.90 K/cumm Hgb 13.4 13.0 - 17.5 g/dL [facility] ([place]) Hct 39.5 38.9 - 50.3 % [facility] ([place]) Plt 234 150 - 400 K/cumm [facility] ([place]) MPV 9.5 9.1 - 12.3 fL [facility] ([place]) RBC 4.61 4.30 - 5.80 M/cumm [facility] ([place]) MCV 85.7 81.3 - 96.4 fL [facility] ([place]) MCH 29.1 27.1 - 33.3 pg [facility] ([place]) MCHC 33.9 32.3 - 35.7 g/dL [facility] ([place]) RDW CV 12.1 11.1 - 14.9 % [facility] ([place]) RDW SD 37.6 35.7 - 48.1 fL [facility] ([place]) NRBC abs 0.00 0.00 - 0.01 K/cumm [facility] ([place]) Blood 07/27/2024 6:37 AM CDT 07/27/2024 6:52 AM CDT us Kassi Johnson MD LAB BLOOD ORDERABLES Marylu jeffery Result [facility] ([facility]) [facility] [place] [address] * Comprehensive metabolic panel (07/27/2024 6:37 AM CDT) Sodium 139 135 - 145 mmol/L Potassium, pl 3.7 3.3 - 4.9 mmol/L [facility] ([place]) Chloride 103 97 - 110 mmol/L [facility] ([place]) CO2 24 22 - 32 mmol/L [facility] ([place]) Anion gap 12 2 - 15 mmol/L [facility] ([place]) BUN 10 6 - 25 mg/dL [facility] ([place]) Creatinine 0.91 0.80 - 1.30 mg/dL [facility] ([place]) Glucose 155 70 - 199 mg/dL [facility] ([place]) [...] interpretive data was last revised 2022. Calcium 9.3 8.5 - 10.3 mg/dL [facility] ([place]) Bilirubin, total 0.3 0.1 - 1.2 mg/dL [facility] ([place]) Protein, pl 7.0 6.5 - 8.5 g/dL [facility] ([place]) Albumin 4.0 3.5 - 5.0 g/dL [facility] ([place]) Alk phos 78 40 - 130 Units/L [facility] ([place]) ALT 28 7 - 55 Units/L [facility] ([place]) AST 21 10 - 50 Units/L [facility] ([place]) Blood 07/27/2024 6:37 AM CDT 07/27/2024 6:52 AM CDT us Kassi Jhonson MD LAB BLOOD ORDERABLES Marylu jeffery Result [facility] ([place]) 1 [facility] [place] [address] * POCT glucose (07/27/2024 2:58 AM CDT) [facility] Signature Glucose, POC 179 70 - 199 mg/dL Blood 07/27/2024 2:58 AM CDT 07/27/2024 2:58 AM CDT Kassi Johnson MD LAB POCT ORDERABLES - DEV ICE Final Result [facility] ([place]) 1 [facility] [place] [address] * (ABNORMAL) POCT glucose (07/26/2024 8:22 PM CDT) Glucose, POC 287(H) 70 - 199 mg/dL Blood 07/26/2024 8:22 PM CDT 07/26/2024 8:22 PM CDT Kassi Johnson MD LAB POCT ORDERABLES - DEV ICE Final Result Performing Organization Address City/[facility] Co de Phone Number [facility] ([place]) [address] [facility] [place] [address] * (ABNORMAL) POCT glucose (07/26/2024 4:38 PM CDT) Glucose, POC 262(H) 70 - 199 mg/dL Blood 07/26/2024 4:38 PM CDT 07/26/2024 4:38 PM CDT Kassi Johnson MD LAB POCT ORDERABLES - DEV ICE Final Result Performing Organization Address City/[facility]/ZIP Co de Phone Number [facility] ([place]) [address] [facility] [place] [address] * (ABNORMAL) POCT glucose (07/26/2024 11:27 AM CDT) Glucose, POC 245(H) 70 - 199 mg/dL Blood 07/26/2024 11:2 7 AM CDT 07/26/2024 11:27 AM CDT Kassi Johnson MD LAB POCT ORDERABLES - DEV ICE Final Result [facility] ([place]) [address] [facility] [place] [address] * POCT glucose (07/26/2024 7:53 AM CDT) Glucose, POC 174 70 - 199 mg/dL Blood 07/26/2024 7:53 AM CDT 07/26/2024 7:53 AM CDT Kassi Johnson MD LAB POCT ORDERABLES - DEV ICE Final Result Performing Organization Address City/[facility]/ZIP Co de Phone Number [facility] ([place]) [address] [facility] [place] [address] * eGFR (07/26/2024 5:46 AM CDT) eGFR >90 >=60 mL/min/1. 73 m2 [...] interpretive data was last reviewed 2021. Blood 07/26/2024 5:46 AM CDT 07/26/2024 6:09 AM CDT us Kassi Johnson MD LAB BLOOD ORDERABLES Marylu l Result [facility] ([place]) 1 [facility] [address] [place] [address] * Differential, auto (07/26/2024 5:46 AM CDT) Neutrophil abs 3.41 1.50 - 6.50 K/cumm Imm gran abs 0.05 0.00 - 0.10 K/cumm [facility] ([place]) Lymphocyte abs 2.07 0.80 - 3.30 K/cumm [facility] ([place]) Monocyte abs 0.51 0.20 - 0.80 K/cumm [facility] ([place]) Eosinophil abs 0.08 0.00 - 0.50 K/cumm [facility] ([place]) Basophil abs 0.03 0.00 - 0.10 K/cumm [facility] ([place]) Neutrophil pct 55.4 % [facility] ([place]) Comment: Interpretive [...] was last revised on 2017. Lymphocyte pct 33.7 % [facility] ([place]) Comment: Interpretive Data Percent cell count reference ranges are not reported, since discordance with absolute values may lead to misinterpretation of CBC data. Current Interpretive Data was last revised on 2017. Monocyte pct 8.3 % [facility] ([place]) Comment: Interpretive Data Percent cell count reference ranges are not reported, since discordance with absolute values may lead to misinterpretation of CBC data. Current Interpretive Data was last revised on 2017. Eosinophil pct 1.3 % [facility] ([place]) Comment: Interpretive [...] Data was last revised on 2017. Blood 07/26/2024 5:46 AM CDT 07/26/2024 6:08 AM CDT Kassi Johnson MD LAB BLOOD ORDERABLES Marylu jeffery Result [facility] ([place]) 1 [facility] [place] [address] * CBC with auto differential (07/26/2024 5:46 AM CDT) WBC 6.15 3.80 - 9.90 K/cumm Hgb 13.7 13.0 - 17.5 g/dL [facility] ([place]) Hct 41.0 38.9 - 50.3 % [facility] ([place]) Plt 252 150 - 400 K/cumm [facility] ([place]) MPV 9.6 9.1 - 12.3 fL [facility] ([place]) RBC 4.78 4.30 - 5.80 M/cumm [facility] ([place]) MCV 85.8 81.3 - 96.4 fL [facility] ([place]) MCH 28.7 27.1 - 33.3 pg [facility] ([place]) MCHC 33.4 32.3 - 35.7 g/dL [facility] ([place]) RDW CV 12.2 11.1 - 14.9 % [facility] ([place]) RDW SD 37.9 35.7 - 48.1 fL [facility] ([place]) NRBC abs 0.00 0.00 - 0.01 K/cumm [facility] ([place]) Blood 07/26/2024 5:46 AM CDT 07/26/2024 6:08 AM CDT us Kassi Johnson MD LAB BLOOD ORDERABLES Marylu jeffery Result [facility] ([place]) 1 [facility] [place] [address] * Comprehensive metabolic panel (07/26/2024 5:46 AM CDT) Sodium 137 135 - 145 mmol/L Potassium, pl 3.7 3.3 - 4.9 mmol/L [facility] ([place]) Chloride 100 97 - 110 mmol/L [facility] ([place]) CO2 23 22 - 32 mmol/L [facility] ([place]) Anion gap 14 2 - 15 mmol/L [facility] ([place]) BUN 10 6 - 25 mg/dL [facility] ([place]) Creatinine 0.90 0.80 - 1.30 mg/dL [facility] ([place]) Glucose 151 70 - 199 mg/dL [facility] ([place]) [...] interpretive data was last revised 2022. Calcium 9.3 8.5 - 10.3 mg/dL [facility] ([place]) Bilirubin, total 0.3 0.1 - 1.2 mg/dL [facility] ([place]) Protein, pl 7.0 6.5 - 8.5 g/dL [facility] ([place]) Albumin 3.9 3.5 - 5.0 g/dL [facility] ([place]) Alk phos 82 40 - 130 Units/L [facility] ([place]) ALT 26 7 - 55 Units/L [facility] ([place]) AST 18 10 - 50 Units/L [facility] ([place]) Blood 07/26/2024 5:46 AM CDT 07/26/2024 6:09 AM CDT us Kassi Johnson MD LAB BLOOD ORDERABLES Marylu jeffery Result [facility] [place] [address] * POCT glucose (07/26/2024 2:48 AM CDT) Glucose, POC 141 70 - 199 mg/dL Blood 07/26/2024 2:48 AM CDT 07/26/2024 2:48 AM CDT Kassi Johnson MD LAB POCT ORDERABLES - DEV ICE Final Result [facility] ([place]) [address] [place] [address] * POCT glucose (07/25/2024 8:31 PM CDT) Glucose, POC 172 70 - 199 mg/dL Blood 07/25/2024 8:31 PM CDT 07/25/2024 8:31 PM CDT Kassi Johnson MD LAB POCT ORDERABLES - DEV ICE Final Result Performing Organization Address City/[facility]/ZIP Co de Phone Number [facility] ([place]) [address] [facility] [place] [address] * (ABNORMAL) POCT glucose (07/25/2024 4:26 PM CDT) Glucose, POC 203(H) 70 - 199 mg/dL Blood 07/25/2024 4:26 PM CDT 07/25/2024 4:26 PM CDT Kasis Johnson MD LAB POCT ORDERABLES - DEV ICE Final Result Performing Organization Address City/[facility]/ZIP Co de Phone Number JUSTYNA DAHL (ELLIOTT) [address] [facility] [place] [address] * POCT glucose (07/25/2024 11:49 AM CDT) Glucose, POC 191 70 - 199 mg/dL Blood 07/25/2024 11:4 9 AM CDT 07/25/2024 11:49 AM CDT Kassi Johnson MD LAB POCT ORDERABLES - DEV ICE Final Result JUSTYNA DAHL (ELLIOTT) [address] [facility] [place] [address] * POCT glucose (07/25/2024 7:38 AM CDT) Glucose, POC 171 70 - 199 mg/dL Blood 07/25/2024 7:38 AM CDT 07/25/2024 7:38 AM CDT Kassi Johnson MD LAB POCT ORDERABLES - DEV ICE Final Result Performing Organization Address City/[facility] Co de Phone Number JUSTYNA DAHL (ELLIOTT) [address] [place] [address] [place] [address] * eGFR (07/25/2024 4:15 AM CDT) eGFR >90 >=60 mL/min/1. 73 m2 [...] interpretive data was last reviewed 2021. Blood 07/25/2024 4:15 AM CDT 07/25/2024 4:28 AM CDT us Kassi Johnson MD LAB BLOOD ORDERABLES Marylu jeffery Result [facility] (ELLIOTT) 1 [facility] [place] [address] * Differential, auto (07/25/2024 4:15 AM CDT) Neutrophil abs 3.27 1.50 - 6.50 K/cumm Imm gran abs 0.04 0.00 - 0.10 K/cumm [facility] (FLY) Lymphocyte abs 2.56 0.80 - 3.30 K/cumm [facility] ([place]) Monocyte abs 0.66 0.20 - 0.80 K/cumm [facility] ([place]) Eosinophil abs 0.11 0.00 - 0.50 K/cumm [facility] ([place]) Basophil abs 0.03 0.00 - 0.10 K/cumm [facility] ([place]) Neutrophil pct 49.1 % [facility] (FLY) Comment: Interpretive [...] was last revised on 2017. Lymphocyte pct 38.4 % [facility] (FLY) Comment: Interpretive Data Percent cell count reference ranges are not reported, since discordance with absolute values may lead to misinterpretation of CBC data. Current Interpretive Data was last revised on 2017. Monocyte pct 9.9 % [facility] (FLY) Comment: Interpretive Data Percent cell count reference ranges are not reported, since discordance with absolute values may lead to misinterpretation of CBC data. Current Interpretive Data was last revised on 2017. Eosinophil pct 1.6 % [facility] (FLY) Comment: Interpretive Data Percent cell count reference ranges are not reported, since discordance with absolute values may lead to misinterpretation of CBC data. Current Interpretive Data was last revised on 2017. Basophil pct 0.4 % [facility] (FL[place]) Comment: Interpretive Data Percent cell count reference ranges are not reported, since discordance with absolute values may lead to misinterpretation of CBC data. Current Interpretive Data was last revised on 2017. Blood 07/25/2024 4:15 AM CDT 07/25/2024 4:28 AM CDT us Kassi Johnson MD LAB BLOOD ORDERABLES Marylu jeffery Result [facility] (FLY) 1 [facility] [place] [address] * CBC with auto differential (07/25/2024 4:15 AM CDT) WBC 6.67 3.80 - 9.90 K/cumm Hgb 14.0 13.0 - 17.5 g/dL [facility] ([place]) Hct 41.6 38.9 - 50.3 % [facility] ([place]) Plt 250 150 - 400 K/cumm [facility] ([place]) MPV 9.5 9.1 - 12.3 fL [facility] ([place]) RBC 4.91 4.30 - 5.80 M/cumm [facility] ([place]) MCV 84.7 81.3 - 96.4 fL [facility] ([place]) MCH 28.5 27.1 - 33.3 pg [facility] ([place]) MCHC 33.7 32.3 - 35.7 g/dL [facility] ([place]) RDW CV 12.1 11.1 - 14.9 % [facility] ([place]) RDW SD 37.2 35.7 - 48.1 fL [facility] ([place]) NRBC abs 0.00 0.00 - 0.01 K/cumm [facility] ([place]) Blood 07/25/2024 4:15 AM CDT 07/25/2024 4:28 AM CDT us Kassi Johnson MD LAB BLOOD ORDERABLES Marylu jeffery Result [facility] (FLY) 1 [facility] [place] [address] * Comprehensive metabolic panel (07/25/2024 4:15 AM CDT) Sodium 139 135 - 145 mmol/L Potassium, pl 3.6 3.3 - 4.9 mmol/L [facility] ([place]) Chloride 101 97 - 110 mmol/L [facility] ([place]) CO2 26 22 - 32 mmol/L [facility] ([place]) Anion gap 12 2 - 15 mmol/L [facility] ([place]) BUN 9 6 - 25 mg/dL [facility] ([place]) Creatinine 1.00 0.80 - 1.30 mg/dL [facility] ([place]) Glucose 134 70 - 199 mg/dL [facility] (FLY) [...] interpretive data was last revised 2022. Calcium 9.8 8.5 - 10.3 mg/dL [facility] ([place]) Bilirubin, total 0.4 0.1 - 1.2 mg/dL [facility] ([place]) Protein, pl 7.4 6.5 - 8.5 g/dL [facility] ([place]) Albumin 4.1 3.5 - 5.0 g/dL [facility] ([place]) Alk phos 84 40 - 130 Units/L [facility] ([place]) ALT 27 7 - 55 Units/L [facility] ([place]) AST 20 10 - 50 Units/L [facility] ([place]) Blood 07/25/2024 4:15 AM CDT 07/25/2024 4:28 AM CDT Kassi Johnson MD LAB BLOOD ORDERABLES Marylu l Result Performing Organization Address City/[facility]/ZIP Co de Phone Number [facility] (ELLIOTT) 1 [facility] [place] [address] * POCT glucose (07/25/2024 2:14 AM CDT) Glucose, POC 116 70 - 199 mg/dL Blood 07/25/2024 2:14 AM CDT 07/25/2024 2:14 AM CDT Kassi Johnson MD LAB POCT ORDERABLES - DEV ICE Final Result Performing Organization Address [facility] Co de Phone Number [facility] (ELLIOTT) 1 [facility] [place] [address] * (ABNORMAL) POCT glucose (07/24/2024 8:09 PM CDT) Glucose, POC 223(H) 70 - 199 mg/dL Blood 07/24/2024 8:09 PM CDT 07/24/2024 8:09 PM CDT Kassi Johnson MD LAB POCT ORDERABLES - DEV ICE Final Result Performing Organization Address City/[facility]/ZIP Co de Phone Number [facility] (ELLIOTT) 1 [facility] [place] [address] * (ABNORMAL) POCT glucose (07/24/2024 4:49 PM CDT) Glucose, POC 277(H) 70 - 199 mg/dL Blood 07/24/2024 4:49 PM CDT 07/24/2024 4:49 PM CDT Kassi Johnson MD LAB POCT ORDERABLES - DEV ICE Final Result [facility] (ELLIOTT) 1 [facility] [place] [address] * (ABNORMAL) POCT glucose (07/24/2024 11:23 AM CDT) Glucose, POC 246(H) 70 - 199 mg/dL Blood 07/24/2024 11:2 3 AM CDT 07/24/2024 11:23 AM CDT Austin Salcido MD LAB POCT ORDERABLES - GARRETT CE Final Result Performing Organization Address [facility] Co de Phone Number [facility] (ELLIOTT) 1 [facility] [place] [address] * MRI Brain WO Contrast (07/24/2024 10:14 AM CDT) Anatomical Region Laterality Modality Head and Neck N/A Magnetic Resonan ce 07/24/2024 10:1 9 AM CDT Narrative 07/24/2024 10:25 AM CDT EXAM DESCRIPTION: MRI BRAIN WO CONTRAST REASON FOR STUDY: Headaches and left-sided weakness of unspecified duration without provision of last known normal. No provided history of trauma or inciting and/or aggravating events. No provided past medical or surgical history. TECHNIQUE: Multiplanar imaging includes non-contrasted T1, T2, FLAIR, and diffusion with ADC map sequences. Additional sequence(s) sensitive to blood products. Images stored on PACS. COMPARISON: CT head without contrast 07/24/2024, 07/22/2024, and 07/19/2024; CTA head/neck 07/22/2024. FINDINGS: CEREBRUM: No acute intra-axial hemorrhage. No edema, mass effect, midline shift, or herniation. WHITE MATTER: Unremarkable. POSTERIOR FOSSA: Brainstem and cerebellum are unremarkable. DIFFUSION IMAGING: No restricted diffusion to suggest acute/subacute ischemia or infarct. EXTRAAXIAL SPACES: No extra-axial fluid collection. No extra-axial mass. BRAIN VOLUME: Within normal limits for age. PITUITARY: Unremarkable. VASCULATURE: No flow disturbance evident. CALVARIUM: Unremarkable. ORBITS: No acute abnormality. Ocular lenses and globes normal in conformation and position. PARANASAL SINUSES AND MASTOIDS: Well-aerated with no fluid levels. No mucosa thickening. OTHER: No other significant finding. IMPRESSION: Unremarkable MRI of the brain. THIS IS AN ELECTRONICALLY VERIFIED FINAL REPORT 07/24/2024 10:25 AM - Electronically signed by Tc Xavier M.D. ACE: ACE Report ID: [id number] Reading Location: [place] [address] Procedure Note Tc Xavier MD - 07/24/2024 EXAM DESCRIPTION: MRI BRAIN WO CONTRAST REASON FOR STUDY: Headaches and left-sided weakness of unspecifiedduration without provision of last known normal. No provided history of trauma or inciting and/or aggravating events. No provided past medical or surgical history. TECHNIQUE: Multiplanar imaging includes non-contrasted T1, T2, FLAIR, and diffusion with ADC map sequences. Additional sequence(s) sensitive [employer]. Images stored on PACS. COMPARISON: CT head without contrast 07/24/2024, 07/22/2024, and07/19/2024; CTA head/neck 07/22/2024. FINDINGS: CEREBRUM: No acute intra-axial hemorrhage. No edema, mass effect,midline shift, or herniation. WHITE MATTER: Unremarkable. POSTERIOR FOSSA: Brainstem and cerebellum are unremarkable. DIFFUSION IMAGING: No restricted diffusion to suggest acute/subacute ischemia or infarct. EXTRAAXIAL SPACES: No extra-axial fluid collection. No extra-axialmass. BRAIN VOLUME: Within normal limits for age. PITUITARY: Unremarkable. VASCULATURE: No flow disturbance evident. CALVARIUM: Unremarkable. ORBITS: No acute abnormality. Ocular lenses and globes normal in conformation and position. PARANASAL SINUSES AND MASTOIDS: Well-aerated with no fluid levels. [place]uc[place] thickening. OTHER: No other significant finding. IMPRESSION: Unremarkable MRI of the brain. THIS IS AN ELECTRONICALLY VERIFIED FINAL REPORT 07/24/2024 10:25 AM - Electronically signed by Tc Xavier M.D. ACE: ACE Report ID: [id number] Reading Location: [id number] us Austin Salcido MD IMG MRI PROCEDURES Final R esult * POCT glucose (07/24/2024 8:04 AM CDT) Glucose, POC 175 70 - 199 mg/dL Blood 07/24/2024 8:04 AM CDT 07/24/2024 8:04 AM CDT us Austin Salcido MD LAB POCT ORDERABLES - GARRETT CE Final Result [facility] ELLIOTT 1 [facility] [place] [address] * eGFR (07/24/2024 4:12 AM CDT) eGFR >90 >=60 mL/min/1. 73 m2 [...] interpretive data was last reviewed 2021. Blood 07/24/2024 4:12 AM CDT 07/24/2024 5:33 AM CDT Austin Salcido MD LAB BLOOD ORDERABLES Final Result [facility] (FLY) 1 [facility] [place] [address] * CBC without differential (07/24/2024 4:12 AM CDT) WBC 4.69 3.80 - 9.90 K/cumm Hgb 13.4 13.0 - 17.5 g/dL [facility] ([place]Y) Hct 40.8 38.9 - 50.3 % [facility] ([place]) Plt 217 150 - 400 K/cumm [facility] ([place]) MPV 10.0 9.1 - 12.3 fL [facility] ([place]) RBC 4.66 4.30 - 5.80 M/cumm [facility] ([place]) MCV 87.6 81.3 - 96.4 fL [facility] ([place]) MCH 28.8 27.1 - 33.3 pg [facility] ([place]) MCHC 32.8 32.3 - 35.7 g/dL [facility] ([place]) RDW CV 12.2 11.1 - 14.9 % [facility] ([place]) RDW SD 39.1 35.7 - 48.1 fL [facility] ([place]) NRBC abs 0.00 0.00 - 0.01 K/cumm [facility] ([place]) Blood 07/24/2024 4:12 AM CDT 07/24/2024 5:33 AM CDT Austin Salcido MD LAB BLOOD ORDERABLES Final Result [facility] (FLY) 1 [facility] [place] [address] * (ABNORMAL) Basic metabolic panel (07/24/2024 4:12 AM CDT) Sodium 136 135 - 145 mmol/L Potassium, pl 3.4 3.3 - 4.9 mmol/L [facility] (FLY) Chloride 101 97 - 110 mmol/L [facility] (FLY) CO2 22 22 - 32 mmol/L [facility] (FLY) Anion gap 13 2 - 15 mmol/L [facility] (FLY) BUN 8 6 - 25 mg/dL [facility] (FLY) Creatinine 0.77(L) 0.80 - 1.30 mg/dL [facility] (FLY) Glucose 176 70 - 199 mg/dL [facility] (FLY) Comment: Interpretive Data Fasting [...] 2022. Calcium 9.5 8.5 - 10.3 mg/dL [facility] (FLY) Blood 07/24/2024 4:12 AM CDT 07/24/2024 5:33 AM CDT Austin Salcido MD LAB BLOOD ORDERABLES Final Result [facility] (ELLIOTT) 1 [facility] [place] [address] * CT Head WO Contrast (07/24/2024 1:07 AM CDT) Anatomical Region Laterality Modality Head and Neck N/A Computed Tomogra phy 07/24/2024 2:42 AM CDT Narrative 07/24/2024 2:43 AM CDT EXAM DESCRIPTION: CT HEAD WO CONTRAST REASON FOR STUDY: Stroke, follow up, 24-hrs post thrombolytic 24 hour follow-up scan. Concern for stroke. Patient received TNK. TECHNIQUE: Axial images acquired through the brain without intravenous contrast. Images stored on PACS. Automated exposure control was used as a dose optimization technique for this examination. COMPARISON: 07/22/2024 FINDINGS: BRAIN: No mass, hemorrhage, or recent infarct. Normal white matter. Volume within normal limits for age. VASCULAR: No dense vessel or obvious aneurysm. EXTRA-AXIAL SPACES: No mass or fluid collection. ORBITS/GLOBES: Unremarkable. SOFT TISSUES: Unremarkable. BONES/SINUSES: No fracture or lesion. Paranasal sinuses and other skullbase airspaces are clear. IMPRESSION: No bleed, infarct, or other concerning abnormality identified. THIS IS AN ELECTRONICALLY VERIFIED FINAL REPORT 07/24/2024 2:43 AM - Electronically signed by Topher Humphrey M.D. AR: CE Report ID: [id number] Reading Location: [id number] Procedure Note Topher Humphrey MD - 07/24/2024 EXAM DESCRIPTION: CT HEAD WO CONTRAST REASON FOR STUDY: Stroke, follow up, 24-hrs post thrombolytic 24 hour follow-up scan. Concern for stroke. Patient received TNK. TECHNIQUE: Axial images acquired through the brain without intravenous contrast. Images stored on PACS. Automated exposure control was used asa dose optimization technique for this examination. COMPARISON: 07/22/2024 FINDINGS: BRAIN: No mass, hemorrhage, or recent infarct. Normal white matter. Volume within normal limits for age. VASCULAR: No dense vessel or obvious aneurysm. EXTRA-AXIAL SPACES: No mass or fluid collection. ORBITS/GLOBES: Unremarkable. SOFT TISSUES: Unremarkable. BONES/SINUSES: No fracture or lesion. Paranasal sinuses and otherskullbase airspaces are clear. IMPRESSION: No bleed, infarct, or other concerning abnormality identified. THIS IS AN ELECTRONICALLY VERIFIED FINAL REPORT 07/24/2024 2:43 AM - Electronically signed by Topher Humphrey M.D. AR: CE Report ID: [id number] Reading Location[id number] IMG [facility] PROCEDURES Final Result * (ABNORMAL) POCT glucose (07/23/2024 9:23 PM CDT) Glucose, POC 253(H) 70 - 199 mg/dL Blood 07/23/2024 9:23 PM CDT 07/23/2024 9:23 PM CDT us Austin Salcido MD LAB POCT ORDERABLES - GARRETT CE Final Result [facility] (ELLIOTT) 1 [facility] [place] [address] * (ABNORMAL) POCT glucose (07/23/2024 4:40 PM CDT) Glucose, POC 212(H) 70 - 199 mg/dL Blood 07/23/2024 4:40 PM CDT 07/23/2024 4:40 PM CDT Austin Salcido MD LAB POCT ORDERABLES - GARRETT CE Final Result Performing Organization Address City/[facility]/ZIP Co de Phone Number [facility] (ELLIOTT) 1 [facility] [place] [address] * (ABNORMAL) POCT glucose (07/23/2024 12:04 PM CDT) Glucose, POC 273(H) 70 - 199 mg/dL Blood 07/23/2024 12:0 4 PM CDT 07/23/2024 12:04 PM CDT Austin Salcido MD LAB POCT ORDERABLES - GARRETT CE Final Result [facility] (ELLIOTT) [address] [facility] [place] [address] * TRANSTHORACIC ECHO (TTE) COMPLETE W DOPPLER/CF WO CONTRAST W BUBBLE (07/23/2024 11:49 AM CDT) Anatomical Region Laterality Modality Ultrasound 07/23/2024 11:5 1 AM CDT Narrative 07/23/2024 2:[address]T [address] [place] [address] Echocardiogram Report Patient Name: AMA REHMAN W : 1985 Study Date: 07/23/2024 11:51:07 AM Gender: M Tech: Location: [address] Provider: GENEVIEVE BUCKNER Height(Cm): BSA: Weight(Kg): Quality: Good Order Provider: GENEVIEVE BUCKNER PROCEDURES: Echocardiographic Report: Transthoracic echocardiogram with 2D, M-Mode, and color Doppler examination with saline contrast study. INDICATIONS: CVA. MEASUREMENTS: 2D/MM Value Range Doppler Value Range EF Teich 2D 63.6 % [ 52.0 - 72.0 ] ZARIA Vmax 3.52 cm2 EF Mod BP 65 % [ 52 - 72 ] AV Mean PG 3 mmHg LVIDd 2D 3.92 cm [ 4.20 - 5.80 ] AV Peak Brenden 1.24 m/s [ 1.00 - 1.70 ] LVIDs 2D 2.59 cm [ 2.50 - 4.00 ] AV VTI 19.09 cm LVPWd 2D 1.13 cm [ 0.60 - 1.00 ] LVOT Diam 2.27 cm IVSd 2D 1.62 cm [ 0.60 - 1.00 ] LVOT Peak Brenden 1.08 m/s [ 0.70 - 1.10 ] LA Dimension MM 3.77 cm [ 3.00 - 4.00 ] LVOT VTI 17.38 cm AoR Diam MM 4.30 cm [ 3.10 - 3.70 ] MV E Peak Brenden 1.16 m/s [ 0.60 - 1.30 ] ACS MM 2.26 cm [ 1.50 - 2.60 ] MV A Peak Brenden 0.70 m/s [ 1.00 - 1.20 ] MV Mean PG 4 mmHg MV PHT 28 msec [ 20 - 100 ] MVA 3.90 MV Decel Time 96 msec [ 104 - 258 ] PV Peak Brenden 1.02 m/s [ 0.40 - 0.80 ] TR Peak Brenden 1.66 m/s [ 1.00 - 2.80 ] TR Peak PG 11 mmHg RVSP 16.00 mmHg [ 10.00 - 36.00 ] E` 0.11 m/s E/E` 10.22 [ <= 10.00 ] PA Pressure 5.00 mmHg [ 10.00 - 36.00 ] 2D/MM Value Range Doppler Value Range - FINDINGS: Atrial Septum: Saline contrast study performed without evidence of right to left shunt. Left Ventricle: Normal left ventricular systolic function with no focal wall motion abnormalities. Normal left ventricular size. Normal left ventricular wall thickness. Impaired diastolic relaxation Grade I. Ejection fraction is measured at 65 %. Left Atrium: The left atrium is normal in size. Right Ventricle: Normal right ventricular size. Normal right ventricular systolic function. Right Atrium: The right atrium is normal in size. Aortic Valve: Normal structure of the aortic valve. Mitral Valve: Trivial regurgitation of the mitral valve. Pulmonic Valve: Normal structure of the pulmonic valve. Tricuspid Valve: Normal right ventricular systolic pressure. Estimated peak RVSP is 20 mmHg. Mild tricuspid regurgitation. Pericardium: Normal pericardium with no significant pericardial effusion. Aorta: Normal aortic root. Sinus of Valsalva is normal. Aortic arch is normal. Descending aorta is normal. IVC: Normal size and normal respiratory collapse consistent with normal right atrial pressure (<5 mmHg). Pulmonary Artery: Normal pulmonary artery size. CONCLUSIONS: Normal left ventricular systolic function with no focal wall motion abnormalities. Normal left ventricular size. Normal left ventricular wall thickness. Impaired diastolic relaxation Grade I. Ejection fraction is measured at 65 %. Saline contrast study performed without evidence of right to left shunt. Trivial regurgitation of the mitral valve. Normal right ventricular systolic pressure. Estimated peak RVSP is 20 mmHg. Mild tricuspid regurgitation. Technically difficult study with suboptimal views. Electronically Signed By: Jose Julian MD 07/23/2024 2:34:54 PM CDT Procedure Note Jose Julian MD - 07/23/[address] [place] [address] Echocardiogram Report Patient Name: AMA REHMAN W : 1985 Study Date: 07/23/2024 11:51:07 AM Gender: M Tech: Location: [place] [address] Ref Provider: GENEVIEVE BUCKNER Height(Cm): BSA: Weight(Kg): Quality: Good Order Provider: GENEVIEVE BUCKNER PROCEDURES: Echocardiographic Report: Transthoracic echocardiogram with 2D, M-Mode, and color Dopplerexamination with saline contrast study. INDICATIONS: CVA. MEASUREMENTS: 2D/MM Value Range Doppler ValueRange EF Teich 2D 63.6 % [ 52.0 - 72.0 ] ZARIA Vmax 3.52cm2 EF Mod BP 65 % [ 52 - 72 ] AV Mean PG 3 mmHg LVIDd 2D 3.92 cm [ 4.20 - 5.80 ] AV Peak Brenden 1.24 m/s[ 1.00 - 1.70 ] LVIDs 2D 2.59 cm [ 2.50 - 4.00 ] AV VTI 19.09cm LVPWd 2D 1.13 cm [ 0.60 - 1.00 ] LVOT Diam 2.27cm IVSd 2D 1.62 cm [ 0.60 - 1.00 ] LVOT Peak Brenden 1.08 m/s[ 0.70 - 1.10 ] LA Dimension MM 3.77 cm [ 3.00 - 4.00 ] LVOT VTI 17.38cm AoR Diam MM 4.30 cm [ 3.10 - 3.70 ] MV E Peak Brenden 1.16 m/s[ 0.60 - 1.30 ] ACS MM 2.26 cm [ 1.50 - 2.60 ] MV A Peak Brenden 0.70 m/s[ 1.00 - 1.20 ] MV Mean PG 4 mmHg MV PHT 28 msec [ 20 - 100 ] MVA 3.90 MV Decel Time 96 msec [ 104 - 258 ] PV Peak Brenden 1.02 m/s [ 0.40 - 0.80 ] TR Peak Brenden 1.66 m/s [ 1.00 - 2.80 ] TR Peak PG 11 mmHg RVSP 16.00 mmHg [ 10.00 - 36.00 ] E` 0.11 m/s E/E` 10.22 [ <= 10.00 ] PA Pressure 5.00 mmHg [ 10.00 - 36.00 ] 2D/MM Value Range Doppler ValueRange - FINDINGS: Atrial Septum: Saline contrast study performed without evidence of right to left shunt. Left Ventricle: Normal left ventricular systolic function with no focal wall motionabnormalities. Normal left ventricular size. Normal left ventricular wall thickness. Impaireddiastolic relaxation Grade I. Ejection fraction is measured at 65 %. Left Atrium: The left atrium is normal in size. Right Ventricle: Normal right ventricular size. Normal right ventricular systolicfunction. Right Atrium: The right atrium is normal in size. Aortic Valve: Normal structure of the aortic valve. Mitral Valve: Trivial regurgitation of the mitral valve. Pulmonic Valve: Normal structure of the pulmonic valve. Tricuspid Valve: Normal right ventricular systolic pressure. Estimated peak RVSP is 20mmHg. Mild tricuspid regurgitation. Pericardium: Normal pericardium with no significant pericardial effusion. Aorta: Normal aortic root. Sinus of Valsalva is normal. Aortic arch is normal.Descending aorta is normal. IVC: Normal size and normal respiratory collapse consistent with normal rightatrial pressure (<5 mmHg). Pulmonary Artery: Normal pulmonary artery size. CONCLUSIONS: Normal left ventricular systolic function with no focal wall motionabnormalities. Normal left ventricular size. Normal left ventricular wall thickness. Impaireddiastolic relaxation Grade I. Ejection fraction is measured at 65 %. Saline contrast study performed without evidence of right to left shunt. Trivial regurgitation of the mitral valve. Normal right ventricular systolic pressure. Estimated peak RVSP is 20mmHg. Mild tricuspid regurgitation. Technically difficult study with suboptimal views. Electronically Signed By: Jose Julian MD 07/23/2024 2:34:54 PM CDT Genevieve Buckner MD CV ECHO PROCEDURES Final Result * (ABNORMAL) POCT glucose (07/23/2024 7:37 AM CDT) Glucose, POC 210(H) 70 - 199 mg/dL Blood 07/23/2024 7:37 AM CDT 07/23/2024 7:37 AM CDT Austin Salcido MD LAB POCT ORDERABLES - GARRETT CE Final Result Performing Organization Address City/[facility]/ZIP Co de Phone Number [facility] (ELLIOTT) 1 [facility] [place] [address] * eGFR (07/23/2024 6:59 AM CDT) eGFR >90 >=60 mL/min/1. 73 m2 [...] interpretive data was last reviewed 2021. Blood 07/23/2024 6:59 AM CDT 07/23/2024 7:05 AM CDT Genevieve Buckner MD LAB BLOOD ORDERABLES Final Resu lt [facility] (FLY) 1 [facility] [place] [address] * ABO/Rh (07/23/2024 6:59 AM CDT) Pathologist [facility] ABO/Rh O Positive Blood 07/23/2024 6:59 AM CDT 07/23/2024 7:05 AM CDT Narrative [facility] (FLY) - 07/23/2024 7:45 AM CDT Has the patient had Daratumumab or Isatuximab in the past 6 months?->Unknown us Huey Kwon MD LAB BLOOD BANK TEST ORDERABLE S Final Result [facility] (FLY) 1 [facility] [place] [address] * (ABNORMAL) CBC without differential (07/23/2024 6:59 AM CDT) Pathologist [facility] WBC 6.97 3.80 - 9.90 K/cumm Hgb 12.7(L) 13.0 - 17.5 g/dL [facility] ([facility] Hct 37.1(L) 38.9 - 50.3 % [facility] ([place]Y) Plt 218 150 - 400 K/cumm [facility] MPV 9.0(L) 9.1 - 12.3 fL [facility] RBC 4.37 4.30 - 5.80 M/cumm [facility] ([place]) MCV 84.9 81.3 - 96.4 fL [facility] ([place]) MCH 29.1 27.1 - 33.3 pg [facility] ([place]) MCHC 34.2 32.3 - 35.7 g/dL [facility] ([place]) RDW CV 12.1 11.1 - 14.9 % [facility] ([place]) RDW SD 37.2 35.7 - 48.1 fL [facility] ([place]) NRBC abs 0.00 0.00 - 0.01 K/cumm [facility] ([place]) Blood 07/23/2024 6:59 AM CDT 07/23/2024 7:05 AM CDT Genevieve Buckner MD LAB BLOOD ORDERABLES Final Resu lt Performing Organization Address City/[facility]/ZIP Co de Phone Number [facility] (ELLIOTT) [address] [facility] [place] [address] * Antibody screen (07/23/2024 6:59 AM CDT) Tru, indirect, Gel Interpretation Negative ABSC Blood 07/23/2024 6:59 AM CDT 07/23/2024 7:05 AM CDT Narrative [facility] (ELLIOTT) - 07/23/2024 7:45 AM CDT Has the patient had Daratumumab or Isatuximab in the past 6 months?->Unknown Huey Kwon MD LAB BLOOD BANK TEST ORDERABLE S Final Result Performing Organization Address [facility] Co de Phone Number [facility] (ELLIOTT) [address] [facility] [place] [address] * (ABNORMAL) Hemoglobin A1c (07/23/2024 6:59 AM CDT) Hgb A1C 8.4(H) 4.0 - 5.6 % Estimated Average Glucose 194 mg/dL [facility] (ELLIOTT) Comment: The ADA recommends reporting an estimated Average Glucose (eAG) with all Hemoglobin A1c results using the equation derived from a study of 507 normal and diabetic adults. Minority populations were underrepresented and children were not included. (Diabetes Care 31:3609-5917, 2008). The eAG is not equivalent to a fasting glucose. Blood 07/23/2024 6:59 AM CDT 07/23/2024 7:05 AM CDT Genevieve Buckner MD LAB BLOOD ORDERABLES Final Resu lt Performing Organization Address City/[facility]/ZIP Co de Phone Number [facility] (ELLIOTT) [address] [facility] [place] [address] * (ABNORMAL) Lipid panel (07/23/2024 6:59 AM CDT) [facility] Signature Cholesterol 144 30 - 199 mg/dL Comment: Interpretive Data Ages < or = 19 years Acceptable: <170 mg/dL Borderline high: 170-199 mg/dL High: >or= 200 mg/dL Ages > or = 20 years Desirable: <200 mg/dL Borderline high: 200-239 mg/dL High: >or= 240 mg/dL Literature References: 1. Expert Panel on Integrated Guidelines for Cardiovascular Health and Risk Reduction in Children and Adolescents. Pediatrics 2011;128:S213 2. NCEP Expert Panel. Circulation 2004;110:227 Current Interpretive Data was last revised on 2017. Triglycerides 134 <=149 mg/dL JUSTYNA DAHL (FLY) Comment: Interpretive Data Ages < or = 9 years Acceptable: <75 mg/dL Borderline high: 75-99 mg/dL High: >or= 100 mg/dL Ages 10 to 20 years Acceptable: <90 mg/dL Borderline high: 90-129 mg/dL High: >or= 130 mg/dL Ages > or = 20 years Desirable: <150 mg/dL Borderline high: 150-199 mg/dL High: 200-499 mg/dL Very high: >or= 499 mg/dL Literature References: 1. Expert Panel on Integrated Guidelines for Cardiovascular Health and Risk Reduction in Children and Adolescents. Pediatrics 2011;128:S213 2. NCEP Expert Panel. Circulation 2004;110:227 Current Interpretive Data was last revised on 2017. HDL 34(L) >=40 mg/dL JUSTYNA MAJOR H (FLY) Comment: Interpretive Data Ages < or = 19 years Acceptable: >45 mg/dL Borderline low: 40-45 mg/dL Low: <40 mg/dL Ages > or = 20 years Desirable: >or= 60 mg/dL Low: <40 mg/dL Literature References: 1. Expert Panel on Integrated Guidelines for Cardiovascular Health and Risk Reduction in Children and Adolescents. Pediatrics 2011;128:S213 2. NCEP Expert Panel. Circulation 2004;110:227 Current Interpretive Data was last revised on 2017. LDL, calculated 86 <=129 mg/dL JUSTYNA DAHL (FLY) Comment: Interpretive Data Ages < or = 19 years Acceptable: <110 mg/dL Borderline high: 110-129 mg/dL High: >or= 130 mg/dL Ages > or = 20 years Optimal: <100 mg/dL Near optimal: 100-129 mg/dL Borderline high: 130-159 mg/dL High: >160 mg/dL Calculated using the Tuan LDL-C estimating equation. This equation was implemented on 2023. Prior to this date LDL-C was estimated using the Friedewald equation. Literature References: 1. Expert Panel on Integrated Guidelines for Cardiovascular Health and Risk Reduction in Children and Adolescents. Pediatrics 2011;128:S213 2. NCEP Expert Panel. Circulation 2004;110:227 3. Tuan [place] et al. JENNIE Cardiol. 2020 July 30;5(5):540-548. doi: 10.1001/jamacardio.2020.0013 Current Interpretive Data was last revised on 2023. Non-HDL Cholesterol 110 mg/dL JUSTYNA BETANCOURT) Comment: Interpretive Data Ages < or = 19 years Acceptable: <120 mg/dL Borderline high: 120-144 mg/dL High: >145 mg/dL Ages > or = 20 years When triglycerides are >200 mg/dL, Non-HDL cholesterol is a secondary target of therapy with treatment goals that are 30 mg/dL greater than the LDL cholesterol target. Literature References: 1. Expert Panel on Integrated Guidelines for Cardiovascular Health and Risk Reduction in Children and Adolescents. Pediatrics 2011;128:S213 2. NCEP Expert Panel. Circulation 2004;110:227 Current Interpretive Data was last revised on 2017. Chol/HDL ratio 4 SHAE DAHL (FLY) Blood 07/23/2024 6:59 AM CDT 07/23/2024 7:05 AM CDT us Genevieve Buckner MD LAB BLOOD ORDERABLES Final Resu lt JUSTYNA DAHL (FLY) 1 [facility] [place] [address] * (ABNORMAL) Basic metabolic panel (07/23/2024 6:59 AM CDT) Sodium 138 135 - 145 mmol/L Potassium, pl 3.6 3.3 - 4.9 mmol/L [facility] (FLY) Chloride 102 97 - 110 mmol/L [facility] ([place]) CO2 24 22 - 32 mmol/L [facility] ([place]) Anion gap 12 2 - 15 mmol/L [facility] ([place]) BUN 9 6 - 25 mg/dL [facility] ([place]) Creatinine 0.80 0.80 - 1.30 mg/dL [facility] ([place]) Glucose 252(H) 70 - 199 mg/dL [facility] (FLY) Comment: Interpretive Data Fasting [...] 2022. Calcium 8.7 8.5 - 10.3 mg/dL [facility] ([place]) Blood 07/23/2024 6:59 AM CDT 07/23/2024 7:[address] [facility] Jaret Buckner MD LAB BLOOD ORDERABLES Final Resu lt [facility] ([place]) [address] [facility] [place] [address] * Infection Prevention MRSA Only (Staphylococcus aureus) PCR Nasal (07/23/2024 3:33 AM CDT) Pathologist [facility] PCR Scrn, Methicillin resistant Staphylococcus aureus (MRSA) Not Detected Not Detected Comment: Interpretive Data Testing performed using Nucleic Acid Amplification with the [employer] Xpert MRSA NxG Assay. This assay detects target DNA from mecA, mecC and the SCCmec insertion site of Staphylococcus aureus using Real-Time PCR and has been cleared by the FDA. Performance characteristics have been verified by the [facility]. Current Interpretive Data was last revised on 2022 Nasal 07/23/2024 3:33 AM CDT 07/23/2024 3:42 AM CDT Austin Salcido MD LAB MICROBIOLOGY - GENERAL ORDERABLES Final Result Performing Organization Address City/[facility]/ZIP Co de Phone Number JUSTYNA DAHL ([place]) [address] [facility] [place] [address] * (ABNORMAL) POCT glucose (07/23/2024 3:11 AM CDT) Glucose, POC 243(H) 70 - 199 mg/dL Blood 07/23/2024 3:11 AM CDT 07/23/2024 3:11 AM CDT Austin Salcido MD LAB POCT ORDERABLES - GARRETT CE Final Result Performing Organization Address [facility] Co de Phone Number JUSTYNA [facility] ([place]) [address] [facility] [place] [place] [address] * ECG 12 lead (07/23/2024 1:16 AM CDT) 07/23/2024 1:16 AM CDT Narrative [facility] - 07/23/2024 4:25 PM CDT Vent Rate: 122 bpm RR Interval: 490 msec TN Interval: 132 msec QRS Duration: 92 msec QT Interval: 414 msec QTC Interval: 486 msec P-R-T [place]: 48 - 20 - 49 degrees IMPRESSION: SINUS TACHYCARDIA POSSIBLE RIGHT VENTRICULAR CONDUCTION DELAY [RSR (QR) IN V1/V2] NONSPECIFIC T-WAVE ABNORMALITY ABNORMAL RHYTHM ECG NO CHANGE FROM PREVIOUS TRACING NOTED Electronically Signed By: Jose Julian MD Huey Kwon MD ECG ORDERABLES Final Result Performing Organization Address City/[facility]/ZIP Co de Phone Number [facility] * Critical Care (07/23/2024 12:48 AM CDT) Narrative Genevieve Buckner MD - 07/23/2024 12:48 AM CDT Genevieve Buckner MD 07/23/2024 5:47 AM Critical Care Performed by: Genevieve Buckner MD Authorized by: Genevieve Buckner MD CRITICAL CARE: Team: EICU Shift: PM Level of Billing: Critical Care My time spent with this patient was 35 minutes: Critical Provider Statement: I have seen and examined the patient on this day of service. I have reviewed and confirmed the history, physical exam, laboratory and radiologic data as documented in the signed ICU note. I have reviewed and discussed my treatment plan with the ICU team and other medical/client consultant staff, making frequent assessments and decisions regarding this patient's complex medical care. Critical Care time was exclusive of time spent performing separately billed procedures, treating other patients, and teaching. This time was in addition to and separate from critical care provided by other practitioners in my group on this day of service. Critical Care was necessary to treat or prevent imminent or life-threatening deterioration of the following conditions: Acute cerebrovascular accident (CVA) This time was spent by me doing the following: Serial bedside patient exams Acute stroke management and Frequent neurologic exams I spent time reviewing and interpreting data from bedside monitors, laboratory results, and imaging, I spent time discussing the management of this critically ill patient with consultants and the medical staff and I spent time documenting in the medical record Genevieve Buckner MD IN CLINIC/BEDSIDE ORDERABLES Fi nal Result * XR Chest 1 Vw Portable (07/22/2024 11:45 PM CDT) Anatomical Region Laterality Modality Body, Chest N/A Computed Radiogr aphy 07/22/2024 11:4 7 PM CDT Narrative 07/22/2024 11:49 PM CDT EXAM DESCRIPTION: XR CHEST 1 VIEW REASON FOR STUDY: chest pain neuro deficit C/o left chest pain and tingling on the left side of face and all the way down his left side today. Hx of asthma, HTN, DM Non smoker TECHNIQUE: Frontal radiographic view(s) of the chest. COMPARISON: 07/22/2024 FINDINGS: LUNGS: Mild bibasilar atelectasis. No focal pulmonary parenchymal consolidation, pleural effusion, or pneumothorax. HEART/MEDIASTINUM: Cardiac silhouette normal in size. Mediastinal and hilar contours appear normal. LINES/TUBES: None. BONES: No acute osseous abnormality. IMPRESSION: No acute cardiopulmonary abnormality. THIS IS AN ELECTRONICALLY VERIFIED FINAL REPORT 07/22/2024 11:49 PM - Electronically signed by Eric Guzmán M.D. AT: AT Report ID: [id number] Reading Location: [id number] Procedure Note Eric Guzmán MD - 07/22/2024 EXAM DESCRIPTION: XR CHEST 1 VIEW REASON FOR STUDY: chest pain neuro deficit C/o left chest pain and tingling on the left side of face and all the waydown his left side today. Hx of asthma, HTN, DM Non smoker TECHNIQUE: Frontal radiographic view(s) of the chest. COMPARISON: 07/22/2024 FINDINGS: LUNGS: Mild bibasilar atelectasis. No focal pulmonary parenchymal consolidation, pleural effusion, or pneumothorax. HEART/MEDIASTINUM: Cardiac silhouette normal in size. Mediastinal andhilar contours appear normal. LINES/TUBES: None. BONES: No acute osseous abnormality. IMPRESSION: No acute cardiopulmonary abnormality. THIS IS AN ELECTRONICALLY VERIFIED FINAL REPORT 07/22/2024 11:49 PM - Electronically signed by Eric Guzmán M.D. AT: AT Report ID: [id number] Reading Location: [id number] us Huey Kwon MD IMG XR PROCEDURES Final Resul t * (ABNORMAL) Urinalysis reflex to microscopic and culture Urine (07/22/2024 11:28 PM CDT) Color, ur Straw Yellow Clarity, ur Clear Clear JUSTYNA A [facility] (FLY) Specific gravity, ur 1.010 1.003 - 1.030 [facility] ([place]) pH, urine 7.0 JUST[facility]NA [facility] ([place]Y) Comment: Interpretive Data U rine pH is affected by diet, medications, systemic acid-base disturbances, and renal tubular function. pH may affect urinary stone formation. For example, urine pH below 6.0 may help reduce the tendency for calcium phosphate stones and pH greater than 6.0 may reduce the tendency for uric acid stone formation. Source: [facility] [employer] Current Interpretive Data was last revised on 2017 Protein, ur ql Negative Negative [facility]NE R [facility] (FLY) Glucose, ur ql 4+(A) Negative [facility] ([place]) Ketones, ur Negative Negative CERNER A [facility] (FLY) Bilirubin, ur Negative Negative [facility] ([place]) Blood, ur Negative Negative [facility] ([place]) Urobilinogen, ur <2.0 <2.0 mg/dL [facility] ([place]) Nitrite, ur Negative Negative CERNER A [facility] (FLY) Leukocyte esterase, ur Negative Negative [facility] ([place]) UA reflex comment Reflex conditions for microscopic UA and culture not met. [facility]IAM [facility] (FYL) Urine 07/22/2024 11:2 8 PM CDT 07/22/2024 11:34 PM CDT us Huey Kwon MD LAB MICROBIOLOGY - GENERAL OR DERABLES Final Result JUSTYNA DAHL ([place]Y) [address] [facility] [place] [address] * CTA Chest Abdomen Pelvis (07/22/2024 11:15 PM CDT) Anatomical Region Laterality Modality Body N/A Computed Tomogra phy 07/22/2024 11:1 7 PM CDT Narrative 07/22/2024 11:22 PM CDT EXAM DESCRIPTION: CTA CHEST ABDOMEN PELVIS REASON FOR STUDY: dissection of aorta Re administration of contrast discussed with Radiologist Dr Kan @ [phone]. Patient was already given 75 ml Left chest pressure TECHNIQUE: CTA scan of the chest, abdomen, and pelvis performed without and with intravenous and without oral contrast using helical scanning technique with dynamic intravenous contrast injection. Precontrast images of the chest were acquired. Arterial phase images of the chest, abdomen, and pelvis as well as portal venous phase images of the abdomen were also acquired. Reconstructed coronal and sagittal MPR images reviewed. All images stored on PACS. 3D MIP images rendered on scanning unit and reviewed at time of interpretation. Automated exposure control was used as a dose optimization technique for this examination. CONTRAST TYPE/DOSE: 100mL of IOVERSOL 350 MG IODINE/ML INTRAVENOUS SYRINGE injected via intravenous COMPARISON: 03/28/2024 FINDINGS: VASCULATURE No dissection, aneurysm, intramural hematoma, rupture, or penetrating atherosclerotic ulcer. No identified central pulmonary embolus. No large vessel occlusion. CELIAC TRUNK: No flow limiting stenosis, dissection, or aneurysm. SUPERIOR MESENTERIC ARTERY: No flow limiting stenosis, dissection, or aneurysm. RIGHT RENAL ARTERY: No flow limiting stenosis, dissection, or aneurysm. LEFT RENAL ARTERY: No flow limiting stenosis, dissection, or aneurysm. INFERIOR MESENTERIC ARTERY: No flow limiting stenosis, dissection, or aneurysm. AORTA: No flow limiting stenosis, dissection, or aneurysm. ILIAC ARTERIES: No flow limiting stenosis, dissection, or aneurysm. CHEST LUNGS: No nodules or masses. No pneumonia. PLEURA: No effusion. No pneumothorax. MEDIASTINUM/GABRIEL: No identified masses or abnormal nodes. HEART: Heart size is normal with no pericardial effusion. AXILLA: No adenopathy. CHEST WALL: No masses. No subcutaneous air. HARDWARE/LINES/TUBES: None. MUSCULOSKELETAL CHEST: No significant abnormality. ABDOMEN/PELVIS LIVER: Normal size. No identified cystic or solid masses. No cysts. GALLBLADDER: Removed BILE DUCTS: No intrahepatic or extrahepatic ductal dilatation. SPLEEN: Normal size. No focal lesions. PANCREAS: No identified cystic or solid masses. No significant calcifications. No adjacent inflammation or peripancreatic fluid collections. Pancreatic duct not dilated. ADRENALS: Normal. KIDNEYS/URINARY TRACT: No identified significant cystic or solid masses. No stones. No hydronephrosis or hydroureter. Symmetric enhancement. Urinary bladder is distended but otherwise unremarkable. GI: No dilated bowel loops. No obvious wall thickening. Appendix is not identified. No significant diverticular disease. PERITONEUM: No ascites or free air. RETROPERITONEUM: No mass or adenopathy. REPRODUCTIVE: No significant abnormality. VASCULATURE ABDOMEN: No abdominal aortic aneurysm. No major occlusion or flow limiting stenosis. MUSCULOSKELETAL ABDOMEN PELVIS: No acute finding. OTHER: No significant abnormality. IMPRESSION: No aortic aneurysm or dissection. No acute findings. THIS IS AN ELECTRONICALLY VERIFIED FINAL REPORT 07/22/2024 11:22 PM - Electronically signed by Sekou Kan M.D. KH: JOHNY Report ID: [id number] Reading Location: [id number] Procedure Note Sekou Kan MD - 07/22/2024 EXAM DESCRIPTION: CTA CHEST ABDOMEN PELVIS REASON FOR STUDY: dissection of aorta Re administration of contrast discussed with Radiologist Dr Kan @ 2303. Patient was already given 75 ml Left chest pressure TECHNIQUE: CTA scan of the chest, abdomen, and pelvis performed withoutand with intravenous and without oral contrast using helical scanningtechnique with dynamic intravenous contrast injection. Precontrast images of thechest were acquired. Arterial phase images of the chest, abdomen, and pelvis aswell as portal venous phase images of the abdomen were also acquired.Reconstructed coronal and sagittal MPR images reviewed. All images stored on PACS. 3DMIP images rendered on scanning unit and reviewed at time of interpretation. Automated exposure control was used as a dose optimization technique forthis examination. CONTRAST TYPE/DOSE: 100mL of IOVERSOL 350 MG IODINE/ML INTRAVENOUS SYRINGE injected via intravenous COMPARISON: 03/28/2024 FINDINGS: VASCULATURE No dissection, aneurysm, intramural hematoma, rupture, or penetrating atherosclerotic ulcer. No identified central pulmonary embolus. Nolarge vessel occlusion. CELIAC TRUNK: No flow limiting stenosis, dissection, or aneurysm. SUPERIOR MESENTERIC ARTERY: No flow limiting stenosis, dissection, or aneurysm. RIGHT RENAL ARTERY: No flow limiting stenosis, dissection, or aneurysm. LEFT RENAL ARTERY: No flow limiting stenosis, dissection, or aneurysm. INFERIOR MESENTERIC ARTERY: No flow limiting stenosis, dissection, or aneurysm. AORTA: No flow limiting stenosis, dissection, or aneurysm. ILIAC ARTERIES: No flow limiting stenosis, dissection, or aneurysm. CHEST LUNGS: No nodules or masses. No pneumonia. PLEURA: No effusion. No pneumothorax. MEDIASTINUM/GABRIEL: No identified masses or abnormal nodes. HEART: Heart size is normal with no pericardial effusion. AXILLA: No adenopathy. CHEST WALL: No masses. No subcutaneous air. HARDWARE/LINES/TUBES: None. MUSCULOSKELETAL CHEST: No significant abnormality. ABDOMEN/PELVIS LIVER: Normal size. No identified cystic or solid masses. No cysts. GALLBLADDER: Removed BILE DUCTS: No intrahepatic or extrahepatic ductal dilatation. SPLEEN: Normal size. No focal lesions. PANCREAS: No identified cystic or solid masses. No significant calcifications. No adjacent inflammation or peripancreatic fluidcollections. Pancreatic duct not dilated. ADRENALS: Normal. KIDNEYS/URINARY TRACT: No identified significant cystic or solid masses.No stones. No hydronephrosis or hydroureter. Symmetric enhancement.Urinary bladder is distended but otherwise unremarkable. GI: No dilated bowel loops. No obvious wall thickening. Appendix is not identified. No significant diverticular disease. PERITONEUM: No ascites or free air. RETROPERITONEUM: No mass or adenopathy. REPRODUCTIVE: No significant abnormality. VASCULATURE ABDOMEN: No abdominal aortic aneurysm. No major occlusion orflow limiting stenosis. MUSCULOSKELETAL ABDOMEN PELVIS: No acute finding. OTHER: No significant abnormality. IMPRESSION: No aortic aneurysm or dissection. No acute findings. THIS IS AN ELECTRONICALLY VERIFIED FINAL REPORT 07/22/2024 11:22 PM - Electronically signed by Sekou Kan M.D. KH: JOHNY Report ID: [id number] Reading Location: [place] [id number] Huey Kwon MD IMG CT PROCEDURES Final Resul t * ECG 12 lead (07/22/2024 10:52 PM CDT) 07/22/2024 10:5 2 PM CDT Narrative [facility] - 07/23/2024 4:25 PM CDT Vent Rate: 105 bpm RR Interval: 568 msec TN Interval: 155 msec QRS Duration: 90 msec QT Interval: 329 msec QTC Interval: 390 msec P-R-T [place]: 33 - 12 - 49 degrees IMPRESSION: SINUS TACHYCARDIA POSSIBLE LEFT ATRIAL ENLARGEMENT [-0.1mV P-WAVE IN V1/V2] POSSIBLE RIGHT VENTRICULAR CONDUCTION DELAY [RSR (QR) IN V1/V2] ABNORMAL RHYTHM ECG NO CHANGE FROM PREVIOUS TRACING NOTED Electronically Signed By: Jose Julian MD Huey Kwon MD ECG ORDERABLES Final Result [facility] * CTA Stroke Head Neck W WO Contrast (07/22/2024 10:52 PM CDT) Anatomical Region Laterality Modality Head and Neck N/A Computed Tomogra phy 07/22/2024 10:5 3 PM CDT Narrative 07/22/2024 11:07 PM CDT EXAM DESCRIPTION: CTA STROKE HEAD NECK W WO CONTRAST REASON FOR STUDY: Stroke/TIA, determine embolic source Elevated blood pressure tingling to the left side of his body facial droop to the left, headache times 3 days last known well 2139 TECHNIQUE: Axial dynamic scanning technique with dynamic contrast enhancement through the intracranial and extracranial carotid and vertebral arteries. Multiplanar reconstruction. All stenosis measurements are based on NASCET criteria. 3D MIP images rendered on scanning unit and reviewed at time of interpretation. Automated exposure control was used as a dose optimization technique for this examination. CONTRAST TYPE/DOSE: 75mL of IOVERSOL 350 MG IODINE/ML INTRAVENOUS SYRINGE injected COMPARISON: 07/22/2024, 07/19/2024 FINDINGS: INTRACRANIAL VESSELS BLACKFEET OF FLEMING: The anterior, middle, posterior cerebral arteries are all patent. No evidence of aneurysm or focal stenosis. POSTERIOR CIRCULATION: The distal vertebral arteries are patent as is the basilar artery. No aneurysm. BRAIN: No gross enhancing lesions as visualized. The dural venous sinuses are opacified and patent. CAROTID CTA RIGHT CAROTIDS: No hemodynamically significant arterial stenosis, arterial occlusion, dissection, or aneurysm. LEFT CAROTIDS: No hemodynamically significant arterial stenosis, arterial occlusion, dissection, or aneurysm. LEFT VERTEBRAL: Please note that the vertebral artery in the lower and mid neck is not well evaluated due to poor opacification due to contrast phase. No hemodynamically significant arterial stenosis, arterial occlusion, dissection, or aneurysm. RIGHT VERTEBRAL: Please note that the vertebral artery in the lower and mid neck is not well evaluated due to poor opacification due to contrast phase. No hemodynamically significant arterial stenosis, arterial occlusion, dissection, or aneurysm. AORTIC ARCH: Normal three-vessel origin. Bilateral subclavian arteries are patent. No dissection. NECK SOFT TISSUE: No mass, adenopathy. No thyroid nodule greater than 1 cm. INCLUDED LUNGS: No acute abnormality. Mild subsegmental atelectasis. No acute osseous abnormalities. No aggressive bone lesions. IMPRESSION: 1. No hemodynamically significant arterial stenosis, arterial occlusion, dissection, or aneurysm in the intracranial or cervical arterial system. However, please note that the vertebral arteries in the lower and mid neck are not well evaluated due to poor opacification due to contrast phase. Findings were telephoned by Dr. Guzmán to DR. HUEY KWON at 11:04 p.m. [employer] ARCHITECT on 07/22/2024. THIS IS AN ELECTRONICALLY VERIFIED FINAL REPORT 07/22/2024 11:07 PM - Electronically signed by Eric Guzmán M.D. AT: AT Report ID: [id number] Reading Location: [id number] Procedure Note Eric Guzmná MD - 07/22/2024 EXAM DESCRIPTION: CTA STROKE HEAD NECK W WO CONTRAST REASON FOR STUDY: Stroke/TIA, determine embolic source Elevated blood pressure tingling to the left side of his body facial droopto the left, headache times 3 days last known well 2139 TECHNIQUE: Axial dynamic scanning technique with dynamic contrastenhancement through the intracranial and extracranial carotid and vertebral arteries. Multiplanar reconstruction. All stenosis measurements are based on NASCET criteria. 3D MIP images rendered on scanning unit and reviewed at time of interpretation. Automated exposure control was used as a dose optimization technique forthis examination. CONTRAST TYPE/DOSE: 75mL of IOVERSOL 350 MG IODINE/ML INTRAVENOUSSYRINGE injected COMPARISON: 07/22/2024, 07/19/2024 FINDINGS: INTRACRANIAL VESSELS BLACKFEET OF FLEMING: The anterior, middle, posterior cerebral arteries areall patent. No evidence of aneurysm or focal stenosis. POSTERIOR CIRCULATION: The distal vertebral arteries are patent as isthe basilar artery. No aneurysm. BRAIN: No gross enhancing lesions as visualized. The dural venoussinuses are opacified and patent. CAROTID CTA RIGHT CAROTIDS: No hemodynamically significant arterial stenosis,arterial occlusion, dissection, or aneurysm. LEFT CAROTIDS: No hemodynamically significant arterial stenosis,arterial occlusion, dissection, or aneurysm. LEFT VERTEBRAL: Please note that the vertebral artery in the lower and mid neck is not well evaluated due to poor opacification due to contrastphase. No hemodynamically significant arterial stenosis, arterial occlusion, dissection, or aneurysm. RIGHT VERTEBRAL: Please note that the vertebral artery in the lower andmid neck is not well evaluated due to poor opacification due to contrastphase. No hemodynamically significant arterial stenosis, arterial occlusion, dissection, or aneurysm. AORTIC ARCH: Normal three-vessel origin. Bilateral subclavian arteriesare patent. No dissection. NECK SOFT TISSUE: No mass, adenopathy. No thyroid nodule greater than 1cm. INCLUDED LUNGS: No acute abnormality. Mild subsegmental atelectasis. No acute osseous abnormalities. No aggressive bone lesions. IMPRESSION: 1. No hemodynamically significant arterial stenosis, arterial occlusion, dissection, or aneurysm in the intracranial or cervical arterial system. However, please note that the vertebral arteries in the lower and mid neckare not well evaluated due to poor opacification due to contrast phase. Findings were telephoned by Dr. Guzmán to DR. HUEY KWON at 11:04 p.m.[employer] ARCHITECT on 07/22/2024. THIS IS AN ELECTRONICALLY VERIFIED FINAL REPORT 07/22/2024 11:07 PM - Electronically signed by Eric Guzmán M.D. AT: AT Report ID: [id number] Reading Location: [id number] us Huey Kwon MD IMG CT PROCEDURES Final Resul t * Troponin T high-sensitivity series (baseline, 2hr, 4hr, 6hr) (07/22/2024 10:44 PM CDT) Trop T hs 12 <=22 ng/L Comment: Interpretive Data For further hscTnT resources including the diagnostic algorithm and an aid in interpretation, copy and paste this link: [email or web address]/[email or web address] Current Interpretive Data last revised 2020. Blood 07/22/2024 10:4 4 PM CDT 07/22/2024 10:53 PM CDT us Huey Kwon MD LAB BLOOD ORDERABLES Final Re sult [facility] ([place]) [address] [facility] [place] [address] * Sepsis Lactate w/ Reflex (07/22/2024 10:44 PM CDT) Sepsis Lactate 1.8 0.7 - 2.0 mmol/L Blood 07/22/2024 10:4 4 PM CDT 07/22/2024 10:53 PM CDT us Huey Kwon MD LAB BLOOD ORDERABLES Final Re sult Performing Organization Address City/[facility]/ZIP Co de Phone Number JUST[facility]NA [facility] ([place]) 1 [place] [address] * eGFR (07/22/2024 10:44 PM CDT) eGFR >90 >=60 mL/min/1. 73 [...] interpretive data was last reviewed 2021. Blood 07/22/2024 10:4 4 PM CDT 07/22/2024 10:53 PM CDT Huey Kwon MD LAB BLOOD ORDERABLES Final Re sult [facility] ([place]) [address] [place] [address] * Differential, auto (07/22/2024 10:44 PM CDT) Neutrophil abs 3.13 1.50 - 6.50 K/cumm Imm gran abs 0.05 0.00 - 0.10 K/cumm [facility] ([place]) Lymphocyte abs 2.48 0.80 - 3.30 K/cumm [facility] ([place]) Monocyte abs 0.53 0.20 - 0.80 K/cumm [facility] ([place]) Eosinophil abs 0.09 0.00 - 0.50 K/cumm [facility] ([place]) Basophil abs 0.03 0.00 - 0.10 K/cumm [facility] ([place]) Neutrophil pct 49.6 % [facility] ([place]) Comment: Interpretive Data Percent cell count reference ranges are not reported, since discordance with absolute values may lead to misinterpretation of CBC data. Current Interpretive Data was last revised on 2017. Imm gran pct 0.8 % [facility] ([place]) Comment: Interpretive Data Percent cell count reference ranges are not reported, since discordance with absolute values may lead to misinterpretation of CBC data. Current Interpretive Data was last revised on 2017. Lymphocyte pct 39.3 % [facility] ([place]) Comment: Interpretive Data Percent cell count reference ranges are not reported, since discordance with absolute values may lead to misinterpretation of CBC data. Current Interpretive Data was last revised on 2017. Monocyte pct 8.4 % [facility] ([place]) Comment: Interpretive Data Percent cell count reference ranges are not reported, since discordance with absolute values may lead to misinterpretation of CBC data. Current Interpretive Data was last revised on 2017. Eosinophil pct 1.4 % [facility] ([place]) Comment: Interpretive Data Percent cell count reference ranges are not reported, since discordance with absolute values may lead to misinterpretation of CBC data. Current Interpretive Data was last revised on 2017. Basophil pct 0.5 % [facility] ([place]) Comment: Interpretive Data Percent cell count reference ranges are not reported, since discordance with absolute values may lead to misinterpretation of CBC data. Current Interpretive Data was last revised on 2017. Blood 07/22/2024 10:4 4 PM CDT 07/22/2024 10:53 PM CDT us Huey Kwon MD LAB BLOOD ORDERABLES Final Re sult [facility] ([place]) 1 [facility] [place] [address] * (ABNORMAL) CBC with auto differential (07/22/2024 10:44 PM CDT) WBC 6.31 3.80 - 9.90 K/cumm Hgb 12.9(L) 13.0 - 17.5 g/dL [facility] ([place]) Hct 37.7(L) 38.9 - 50.3 % [facility] ([place]) Plt 232 150 - 400 K/cumm [facility] ([place]) MPV 9.4 9.1 - 12.3 fL [facility] ([place]) RBC 4.45 4.30 - 5.80 M/cumm [facility] ([place]) MCV 84.7 81.3 - 96.4 fL [facility] ([place]) MCH 29.0 27.1 - 33.3 pg [facility] ([place]) MCHC 34.2 32.3 - 35.7 g/dL [facility] ([place]) RDW CV 12.1 11.1 - 14.9 % [facility] ([place]) RDW SD 36.6 35.7 - 48.1 fL [facility] ([place]) NRBC abs 0.00 0.00 - 0.01 K/cumm [facility] ([place]) Blood Venous blood specimen / Unknown 07/22/2024 10:44 PM CDT 07/22/2024 10:53 PM CDT Narrative [facility] ([place]) - 07/22/2024 10:57 PM CDT Potential Stroke Patient us Huey Kwon MD LAB BLOOD ORDERABLES Final Re sult [facility] ([place]) [address] [facility] [place] [address] * aPTT (07/22/2024 10:44 PM CDT) aPTT 34 28 - 38 sec [facility] ([place]) Comment: Interpretive Data Heparin therapeutic range: 66.0 - 100.0 seconds. Range based on correlation with therapeutic heparin activity range of 0.3 - 0.7 Units/mL. Current interpretive data was last revised on 2022. Blood Venous blood specimen / Unknown 07/22/2024 10:44 PM CDT 07/22/2024 10:53 PM CDT Narrative [facility] ([place]) - 07/22/2024 11:36 PM CDT Potential stroke patient. us Huey Kwon MD LAB BLOOD ORDERABLES Final Re sult Performing Organization Address [facility] de Phone Number [facility] ([place]) [address] [facility] [place] [address] * Protime-INR (07/22/2024 10:44 PM CDT) PT 10.4 9.7 - 13.0 sec [facility] ([place]) INR 0.96 0.90 - 1.20 [facility] ([place]) Comment: Interpretive data Oral anticoagulant therapeutic ranges: Venous thromboembolism prophylaxis or treatment: 2.0-3.0 CARDIOLOGY Standard range: 2.0-3.0 High-intensity range: 2.5-3.5 Refer to indication-specific guidelines for appropriate target ranges for prosthetic heart valve replacement. Current interpretive data was last revised on 2019. Blood 07/22/2024 10:4 4 PM CDT 07/22/2024 10:53 PM CDT Huey Kwon MD LAB BLOOD ORDERABLES Final Re sult Performing Organization Address [facility] Co de Phone Number JUST[facility]NA [facility] ([place]) [address] [place] [address] * Magnesium (07/22/2024 10:44 PM CDT) [facility] Magnesium 1.7 1.4 - 2.5 mg/dL Blood 07/22/2024 10:4 4 PM CDT 07/22/2024 10:53 PM CDT Huey Kwon MD LAB BLOOD ORDERABLES Final Re sult Performing Organization Address [facility] Co de Phone Number [facility] ([place]) [address] [place] [address] * Blood gas, venous (07/22/2024 10:44 PM CDT) [facility] pH, Venous 7.38 7.32 - 7.43 PCO2, Venous 45 40 - 50 mmHg [facility] ([place]) PO2, Venous 90 mmHg [facility] ([place]) HCO3 Venous, Calculated 26 20 - 30 mmol/L [facility] ([place]) BE, venous 1 mmol/L [facility] ([place]) Comment: Interpretive Data No Reference Range Established Current Interpretive Data was last revised on 2017. Blood 07/22/2024 10:4 4 PM CDT 07/22/2024 10:53 PM CDT us Huey Kwon MD LAB BLOOD ORDERABLES Final Re sult Performing Organization Address [facility] Co de Phone Number [facility] ([place]) 1 [place] [address] * (ABNORMAL) Comprehensive metabolic panel (07/22/2024 10:44 PM CDT) Pathologist [facility] Sodium 135 135 - 145 mmol/L Potassium, pl 3.7 3.3 - 4.9 mmol/L [facility] ([place]) Chloride 98 97 - 110 mmol/L [facility] ([place]) CO2 24 22 - 32 mmol/L [facility] ([place]) Anion gap 13 2 - 15 mmol/L [facility] ([place]) BUN 9 6 - 25 mg/dL [facility] ([place]) Creatinine 0.88 0.80 - 1.30 mg/dL [facility] ([place]) Glucose 275(H) 70 - 199 mg/dL [facility] ([place]) [...] interpretive data was last revised 2022. Calcium 9.3 8.5 - 10.3 mg/dL [facility] ([place]) Bilirubin, total <0.2 0.1 - 1.2 mg/dL [facility] ([place]) Protein, pl 7.1 6.5 - 8.5 g/dL [facility] ([place]) Albumin 4.2 3.5 - 5.0 g/dL [facility] ([place]) Alk phos 103 40 - 130 Units/L [facility] ([place]) ALT 32 7 - 55 Units/L [facility] ([place]) AST 22 10 - 50 Units/L [facility] ([place]) Comment:Slightly Hemolyzed S pecimen Blood Venous blood specimen / Unknown 07/22/2024 10:44 PM CDT 07/22/2024 10:53 PM CDT Narrative [facility] ([place]) - 07/22/2024 11:21 PM CDT Potential Stroke Patient us Huey Kwon MD LAB BLOOD ORDERABLES Final Re sult [facility] ([place]) 1 [facility] [place] [address] * CT Stroke Head WO Contrast (07/22/2024 10:28 PM CDT) Anatomical Region Laterality Modality Head N/A Computed Tomogra phy 07/22/2024 10:3 2 PM CDT Narrative 07/22/2024 10:34 PM CDT EXAM DESCRIPTION: CT STROKE HEAD WO CONTRAST REASON FOR STUDY: Stroke, follow up, Stroke Elevated blood pressure tingling to the left side of his body facial droop to the left, headache times 3 days last known well 2139 TECHNIQUE: Axial images acquired through the brain without intravenous contrast. Images stored on PACS. Automated exposure control was used as a dose optimization technique for this examination. COMPARISON: 07/19/2024 FINDINGS: BRAIN: No mass, hemorrhage, or recent infarct. Normal white matter. Volume within normal limits for age. VASCULAR: No dense vessel or obvious aneurysm. EXTRA-AXIAL SPACES: No mass or fluid collection. ORBITS/GLOBES: Unremarkable. SOFT TISSUES: Unremarkable. BONES/SINUSES: No fracture or lesion. Paranasal sinuses and other skullbase airspaces are clear. IMPRESSION: No acute abnormality identified. Negative findings called. THIS IS AN ELECTRONICALLY VERIFIED FINAL REPORT 07/22/2024 10:34 PM - Electronically signed by Topher Humphrey M.D. AR: CE Report ID: [id number] Reading Location: [id number] Procedure Note Topher Humphrey MD - 07/22/2024 EXAM DESCRIPTION: CT STROKE HEAD WO CONTRAST REASON FOR STUDY: Stroke, follow up, Stroke Elevated blood pressure tingling to the left side of his body facial droopto the left, headache times 3 days last known well 2139 TECHNIQUE: Axial images acquired through the brain without intravenous contrast. Images stored on PACS. Automated exposure control was used asa dose optimization technique for this examination. COMPARISON: 07/19/2024 FINDINGS: BRAIN: No mass, hemorrhage, or recent infarct. Normal white matter. Volume within normal limits for age. VASCULAR: No dense vessel or obvious aneurysm. EXTRA-AXIAL SPACES: No mass or fluid collection. ORBITS/GLOBES: Unremarkable. SOFT TISSUES: Unremarkable. BONES/SINUSES: No fracture or lesion. Paranasal sinuses and otherskullbase airspaces are clear. IMPRESSION: No acute abnormality identified. Negative findings called. THIS IS AN ELECTRONICALLY VERIFIED FINAL REPORT 07/22/2024 10:34 PM - Electronically signed by Topher Humphrey M.D. AR: CE Report ID: [id number] Reading Location: [place] [address] us Huey Kwon MD IMG CT PROCEDURES Final Resul t * (ABNORMAL) POCT glucose (07/22/2024 10:08 PM CDT) Glucose, POC 257(H) 70 - 199 mg/dL Blood 07/22/2024 10:0 8 PM CDT 07/22/2024 10:08 PM CDT us Notinfile Unknown LAB POCT ORDERABLES - DEVICE F inal Result Performing Organization Address City/State/[facility] Co de Phone Number JUSTYNA [facility] ([place]) 1 [facility] [place] [address] * XR Kub (07/22/2024 12:08 PM CDT) Anatomical Region Laterality Modality Body, Abdomen N/A Computed Radiogr aphy 07/22/2024 10:3 4 PM CDT Narrative 07/22/2024 10:35 PM CDT EXAM DESCRIPTION: XR KUB REASON FOR STUDY: IBS, rule out high fecal load. On Linzess and having small frequent bowel movements. What is stool and gas pattern?, What is stool and gas pattern? Rule out constipation. IBS Constipation and diarrhea x 5 years Gallbladder removed 03/24 TECHNIQUE: KUB COMPARISON: 03/20/2024 FINDINGS: BOWEL: Nonobstructive gas pattern. OTHER SOFT TISSUES: Unremarkable. BONES: Unremarkable. IMPRESSION: No bowel obstruction or other acute abnormality identified. THIS IS AN ELECTRONICALLY VERIFIED FINAL REPORT 07/22/2024 10:35 PM - Electronically signed by Topher Humhprey M.D. AR: CE Report ID: [id number] Reading Location: [id number] Procedure Note Topher Humphrey MD - 07/22/2024 EXAM DESCRIPTION: XR KUB REASON FOR STUDY: IBS, rule out high fecal load. On Linzess and having small frequent bowel movements. What is stool and gas pattern?, What isstool and gas pattern? Rule out constipation. IBS Constipation and diarrhea x 5 years Gallbladder removed 03/24 TECHNIQUE: KUB COMPARISON: 03/20/2024 FINDINGS: BOWEL: Nonobstructive gas pattern. OTHER SOFT TISSUES: Unremarkable. BONES: Unremarkable. IMPRESSION: No bowel obstruction or other acute abnormality identified. THIS IS AN ELECTRONICALLY VERIFIED FINAL REPORT 07/22/2024 10:35 PM - Electronically signed by Topher Humphrey M.D. AR: CE Report ID: [id number] Reading Location: [id number] Rubio Martinez SOLICITOR PATENT IMG XR PROCEDURES F inal Result * (ABNORMAL) POCT glucose (07/20/2024 12:49 AM CDT) [facility] Signature Glucose, POC 250(H) 70 - 199 mg/dL Blood 07/20/2024 12:4 9 AM CDT 07/20/2024 12:49 AM CDT Roma Alva MD LAB POCT ORDERABLES - DEVICE Fin al Result [facility] [place] [address] [facility] Department of Laboratories [place], [place] [id number] * CT Head WO Contrast (07/19/2024 11:48 PM CDT) Anatomical Region Laterality Modality Head and Neck N/A Computed Tomogra phy 07/20/2024 12:0 1 AM CDT Narrative 07/20/2024 12:02 AM CDT EXAM DESCRIPTION: CT HEAD WO CONTRAST REASON FOR STUDY: Headache, sudden, severe C/o posterior headache, nausea, dizziness and confusion tonight. No recent falls or head injury Hx of HTN, type 2 diabetes TECHNIQUE: Axial images acquired through the brain without intravenous contrast. Images stored on PACS. Automated exposure control was used as a dose optimization technique for this examination. COMPARISON: 06/19/2023 FINDINGS: BRAIN: No hemorrhage, edema or mass effect. No recent infarct. Normal white matter. EXTRA-AXIAL SPACES: No fluid collections. No masses. CALVARIUM: No fracture. SINUSES/MASTOIDS: No fluid or mucosal thickening. ORBITS: No significant abnormality. OTHER: No other significant abnormality. IMPRESSION: No acute intracranial findings. THIS IS AN ELECTRONICALLY VERIFIED FINAL REPORT 07/20/2024 12:02 AM - Electronically signed by Sekou Gaines M.D. KT: NADEEN Report ID: [id number] Reading Location: [id number] Procedure Note Sekou Gaines MD - 07/20/2024 EXAM DESCRIPTION: CT HEAD WO CONTRAST REASON FOR STUDY: Headache, sudden, severe C/o posterior headache, nausea, dizziness and confusion tonight. No recent falls or head injury Hx of HTN, type 2 diabetes TECHNIQUE: Axial images acquired through the brain without intravenous contrast. Images stored on PACS. Automated exposure control was used asa dose optimization technique for this examination. COMPARISON: 06/19/2023 FINDINGS: BRAIN: No hemorrhage, edema or mass effect. No recent infarct. Normal white matter. EXTRA-AXIAL SPACES: No fluid collections. No masses. CALVARIUM: No fracture. SINUSES/MASTOIDS: No fluid or mucosal thickening. ORBITS: No significant abnormality. OTHER: No other significant abnormality. IMPRESSION: No acute intracranial findings. THIS IS AN ELECTRONICALLY VERIFIED FINAL REPORT 07/20/2024 12:02 AM - Electronically signed by Sekou Gaines M.D. KT: NADEEN Report ID: [id number] Reading Location: [id number] Roma Alva MD [facility] PROCEDURES Final Result * eGFR (07/19/2024 11:19 PM CDT) eGFR >90 >=60 mL/min/1. 73 [...] interpretive data was last reviewed 2021. Blood 07/19/2024 11:1 9 PM CDT 07/19/2024 11:50 PM CDT us Roma Alva MD LAB BLOOD ORDERABLES Final Resul t JUST[facility] ([place]) [address] [facility] [place] [address] * Differential, auto (07/19/2024 11:19 PM CDT) Neutrophil abs 3.76 1.50 - 6.50 K/cumm Imm gran abs 0.06 0.00 - 0.10 K/cumm [facility] ([place]) Lymphocyte abs 2.03 0.80 - 3.30 K/cumm [facility] ([place]) Monocyte abs 0.53 0.20 - 0.80 K/cumm [facility] ([place]) Eosinophil abs 0.08 0.00 - 0.50 K/cumm [facility] ([place]) Basophil abs 0.03 0.00 - 0.10 K/cumm [facility] ([place]) Neutrophil pct 57.9 % [facility] ([place]) Comment: Interpretive [...] was last revised on 2017. Lymphocyte pct 31.3 % [facility] ([place]) Comment: Interpretive Data Percent cell count reference ranges are not reported, since discordance with absolute values may lead to misinterpretation of CBC data. Current Interpretive Data was last revised on 2017. Monocyte pct 8.2 % [facility] ([place]) Comment: Interpretive Data Percent cell count reference ranges are not reported, since discordance with absolute values may lead to misinterpretation of CBC data. Current Interpretive Data was last revised on 2017. Eosinophil pct 1.2 % [facility] ([place]) Comment: Interpretive [...] Data was last revised on 2017. Blood 07/19/2024 11:1 9 PM CDT 07/19/2024 11:47 PM CDT us Roma Alva MD LAB BLOOD ORDERABLES Final Resul t [facility] ([place]) 1 [facility] [place] [address] * CBC with auto differential (07/19/2024 11:19 PM CDT) WBC 6.49 3.80 - 9.90 K/cumm Hgb 13.6 13.0 - 17.5 g/dL [facility] ([place]) Hct 39.9 38.9 - 50.3 % [facility] ([place]) Plt 267 150 - 400 K/cumm [facility] ([place]) MPV 9.7 9.1 - 12.3 fL [facility] ([place]) RBC 4.78 4.30 - 5.80 M/cumm [facility] ([place]) MCV 83.5 81.3 - 96.4 fL [facility] ([place]) MCH 28.5 27.1 - 33.3 pg [facility] ([place]) MCHC 34.1 32.3 - 35.7 g/dL [facility] ([place]) RDW CV 11.9 11.1 - 14.9 % [facility] ([place]) RDW SD 36.4 35.7 - 48.1 fL [facility] ([place]) NRBC abs 0.00 0.00 - 0.01 K/cumm [facility] Blood 07/19/2024 11:1 9 PM CDT 07/19/2024 11:47 PM CDT us Roma Alva MD LAB BLOOD ORDERABLES Final Resul t [facility] ([place]) [address] [facility] [place] [address] * (ABNORMAL) Basic metabolic panel (07/19/2024 11:19 PM CDT) Sodium 137 135 - 145 mmol/L Potassium, pl 3.5 3.3 - 4.9 mmol/L [facility] Chloride 97 97 - 110 mmol/L [facility] CO2 23 22 - 32 mmol/L [facility] Anion gap 17(H) 2 - 15 mmol/L [facility] ([place]) BUN 11 6 - 25 mg/dL [facility] Creatinine 0.82 0.80 - 1.30 mg/dL [facility] ([place]) Glucose 288(H) 70 - 199 mg/dL [facility] ([place] Comment: Interpretive Data Fasting glucose [...] 2022. Calcium 10.0 8.5 - 10.3 mg/dL JUSTYNA [facility] ([place]) Blood 07/19/2024 11:1 9 PM CDT 07/19/2024 11:50 PM CDT us Roma Alva MD LAB BLOOD ORDERABLES Final Resul t Performing Organization Address City/[facility] Co de Phone Number JUSTYNA [facility] ([place]) [address] [facility] [place] [address] * POCT glucose (06/24/2024 10:12 AM CDT) Glucose, POC 139 70 - 199 mg/dL Blood 06/24/2024 10:1 2 AM CDT 06/24/2024 10:12 AM CDT us Allan Peñaloza MD LAB POCT ORDERABLES - GARRETT CE Final Result Performing Organization Address [facility] Co de Phone Number JUSTYNA [facility] ([place]) [address] [place] [address] [place] [address] * Flexible Sigmoidoscopy (06/24/2024 9:42 AM CDT) Anatomical Region Laterality Modality Other Narrative Procedure Note Allan Peñaloza MD - 06/24/2024 9:[address] [facility] Patient Name: Ama Rehman Procedure Date: 06/24/2024 9:42 AM Date of : 1985 Admit Type: Outpatient Age: 38 Gender: Male Attending MD: Allan Peñaloza M.D. Room: [facility] END[facility]COPY ROOM 1 Note Status: Finalized Patient [...] with split dose instruction. The Endoscope [id number] was introduced through the anus and advanced [...] 9:42 AM Procedure Code(s): --- Professional --- 82950, Sigmoidoscopy, flexible; diagnostic, including collection of specimen(s) by brushing or washing, when performed (separateprocedure) Diagnosis Code(s): --- Professional --- K60.2, Anal fissure, unspecified K64.8, Other hemorrhoids K62.5, Hemorrhage of anus and rectum CPT copyright 2020 [employer]. All rights reserved. The codes documented in this report are preliminary and upon grips reviewmay be revised to meet current compliance requirements. Recognized by the [employer] [employer] for promoting quality in endoscopy us Allan Peñaloza MD ENDOSCOPY PROCEDURES Final Result * Hepatitis panel, acute (09/25/2019 7:23 AM CDT) HepBsAg NONREACT NONREACTIVE [facility] Comment: Siemens CentaurXP using TAMMY (chemiluminescent immunoassay) technology. NONREACTIVE: IgM antibodies to Hepatitis B Surface antigen not detected. REACTIVE: IgM antibodies to Hepatitis B Surface antigen detected. Reactive results will be confirmed by neutralization testing. HBsAb qn 129.36 mIU/mL [facility] Comment: Siemens CentaurXP using TAMMY (chemiluminescent immunoassay) technology. 9.99 IU/L or less.....NONREACTIVE: IgM antibodies to Hepatitis B Surface antibody are not detected. 10.00 IU/L or greater..REACTIVE: IgM antibodies to Hepatitis B Surface antibody are detected. Hep B core IgM NONREACT NONREACTIVE [facility] Comment: Siemens CentaurXP using TAMMY (chemiluminescent immunoassay) technology. NONREACTIVE: IgM antibodies to Hepatitis B Core antigen not detected. EQUIVOCAL: IgM antibodies to Hepatitis B Core antigen may or may not be present. Obtain a new specimen and retest. REACTIVE: IgM antibodies to Hepatitis B Core antigen detected. Hep A IgM NONREACT NONREACTIVE [facility] Comment: Siemens CentaurXP using TAMMY (chemiluminescent immunoassay) technology. NONREACTIVE: IgM antibodies to Hepatitis A not detected. This does not exclude possibility of exposure to Hepatitis A or early acute infection. EQUIVOCAL:IgM antibodies to Hepatitis A may or may not be present. Suggest recollection and retest. REACTIVE: Antibodies to Hepatitis A detected. Hep C Ab NONREACT NONREACTIVE [facility] Comment: Siemens CentaurXP using TAMMY (chemiluminescent immunoassay) [...] MICROBIOLOGY - GENERAL OR DERABLES Final Result [facility] [address], [facility] [phone] from Last 3 Months or Most Recently Relevant to Health Maintenance Insurance [facility] OTHER Address: [address] [address] [email or web address] ACCESS CHOICE [facility] [place] [address] [email or web address] ACCESS CHOICE [facility] ACCESS CHOICE Advance Directives For more information, please contact: [phone] * Full Code (Latest Code Status on File) Date Activated Date Inactivated Comments 07/23/2024 1:54 AM 07/27/2024 8:14 PM * Full Code Date Activated Date Inactivated Comments 06/24/2024 9:31 AM 06/24/2024 4:57 PM * Full Code Date Activated Date Inactivated Comments 06/24/2024 9:31 AM 06/24/2024 9:31 AM * Full Code Date Activated Date Inactivated Comments 06/19/2023 7:33 PM 06/21/2023 5:05 PM Care Teams Research Investigator Relationship Specialty Start Date End Date Nikky Cunningham MD [address] [facility] [address] [place] [id number] PCP - General Family Medicine 07/23/24
--- OUTSIDE RECORDS SUMMARY | 2024-07-31 07:34 | XMS_ITS | Clinical Summary ---
Author Organization [facility] [employer] Address [address] [address] Care Team Providers Care Sports Agent Name Role Phone Unavailable Primary Care Provider Unavailabl e Source Comments [facility] [employer],non-owned Affiliates and Associated Physician Practices is amultiple site organization consisting of ambulatory clinics and hospital sitesin [place], [place] and [place]. This disclosure is being madepursuant to the Care Everywhere program and may not contain all information available regarding this patient. 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
--- OUTSIDE RECORDS SUMMARY | 2024-07-31 07:34 | XMS_ITS | Clinical Summary ---
Author Organization [facility] Address Formerly [facility] [place] [address] Care Team Providers Care Senior Research Associate Name Role Phone Starla Parham MD Primary Care Provider [phone] Allergies Active Allergy Reactions Criticality Noted Date [...] age to complete this topic Insurance [facility] Care Teams Senior Research Associate Relationship Specialty Start Date End Date Starla Parham MD PCP - General FAMILY PRACTICE 11/17/20
--- OUTSIDE RECORDS SUMMARY | 2024-07-31 07:34 | XMS_ITS | Referral Summary ---
Author Organization [facility] Address [address] [place] [address] Care Team Providers Care Liability Claims Representative Name Role Phone Nikky Cunningham MD Primary Care Provider Encounters Date Type Department Care Team Description 07/28/2024 Results Follow-Up [facility] Gastroenterology at [address] [place] [phone] Rubio Martinez NP 07/22/2024 10:13 PM CDT - 07/27/2024 4:09 PM CDT Hospital Encounter [address] [address] Huey Kwon MD Lo Bianco, Salvador, MD [...] Discharge Disposition: Discharge to an Rehab facility 07/24/2024 Telephone [facility] [address] [place] [address] [address] [place] [phone] Sharifa Navarrete NP 07/22/2024 11:57 AM CDT - 07/22/2024 11:59 PM CDT Hospital Encounter [facility] [address] [place] [address] Irritable bowel syndrome with both constipation and diarrhea Discharge Disposition: Discharge to home or self care 07/19/2024 11:17 PM CDT - 07/20/2024 3:44 AM CDT Emergency [facility] Emergency Department [address] [place] [address] Roma Alva MD Other headache syndrome (Primary Dx) Discharge Disposition: Discharge to home or self care 07/19/2024 10:48 PM CDT - 07/19/2024 11:59 PM CDT Hospital Encounter [facility] Emergency, Room R Discharge Disposition: Discharge to home or self care 07/06/2024 9:30 AM CDT Office Visit [facility] Gastroenterology at [address] [place] [phone] Rubio Martinez NP Anal fissure (Primary Dx); Irritable bowel syndrome with both constipation and diarrhea; Superficial gastritis without hemorrhage, unspecified chronicity; Erosive esophagitis; Nausea without vomiting; RUQ pain; Tubular adenoma of colon; Hepatic steatosis 06/24/2024 11:34 AM CDT Anesthesia Event [address] [address] Alisha Hidalgo MD 06/24/2024 11:00 AM CDT - 06/24/2024 11:30 AM CDT Surgery [address] [address] Allan Peñaloza MD SIGMOIDOSCOPY 06/24/2024 9:24 AM CDT - 06/24/2024 12:45 PM CDT Hospital Encounter [address] [address] Allan Peñaloza MD Discharge Disposition: Discharge to home or self care 05/28/2024 Telephone [facility] Gastroenterology at [address] [address] Allyn Johnson Sigmoidoscopy Reschedule 05/22/2024 Telephone [facility] Gastroenterology at [address] [place] [address] Johnson, Allyn N. Schedule Sigmoidoscopy from Last 3 Months Allergies [...] mg total) by mouth daily 1 tablet Active aspirin 81 mg chewable tablet Take 1 tablet (81 mg total) by mouth daily 025 2024 Active atorvastatin (LIPITOR) 40 mg tablet Take 1 tablet (40 mg total) by mouth daily 025 2025 Active metoprolol XL (TOPROL-XL) 50 mg extended release tablet Take 1 tablet (50 mg total) by mouth daily 025 2025 Active metFORMIN (GLUCOPHAGE) 500 mg tablet [...] 2024 Discontinued atorvastatin (LIPITOR) 40 mg tablet 022 2024 Discontinued(T herapy completed) metFORMIN (GLUCOPHAGE) 500 [...] as needed for headaches 12 tablet 025 04/28/ 2025 Discontinued(S top Taking at Discharge) losartan (COZAAR) [...] often do you attend chur ch or bahai services? 1 to 4 times per year 07/23/2024 Do you belong to any clubs o r organizations such as samaritan groups, unions, fraternal or athletic groups, or [...] place to sleep or slept in a longterm (including now)? No 06/20/2023 Housing Stability Vital Sign Answer Nj e Recorded In the last 12 months, was t here a time when you were not able to pay the mortgage or rent on time? Yes 07/23/2024 In the past 12 months, how m any times have you moved where you were living? 0 07/23/2024 At any time in the past 12 m [facility], were you homeless or living in a longterm (including now)? 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 Gender Identity Not on file Sexual [...] 07/23/2024 1:45 AM CDT Plan of Treatment Not on [...] AM CDT POCT GLUCOSE DEVICE Routine 07/23/2024 9:23 PM CDT POCT GLUCOSE DEVICE Routine 07/23/2024 [...] POCT ORDERABLES - DEV ICE Final Result [facility] [place]) 1 [facility] Department [place] [address] * POCT glucose (07/27/2024 8:13 AM CDT) Glucose, POC 158 70 - 199 mg/dL Blood 07/27/2024 8:13 AM CDT 07/27/2024 8:13 AM CDT us Kassi Johnson MD LAB POCT ORDERABLES - DEV ICE Final Result Performing Organization Address [facility] Co de Phone Number [facility] ([place]) [address] [place] [address] * eGFR (07/27/2024 6:37 AM CDT) [facility] eGFR >90 >=60 mL/min/1. 73 m2 Comment: [...] ORDERABLES Marylu l Result Performing Organization Address City/[facility]/ZIP Co de Phone Number [facility] ([place]) 1 [facility] Department [place] [address] * Differential, auto (07/27/2024 6:37 AM CDT) Neutrophil abs 3.34 1.50 - 6.50 K/cumm Imm gran abs 0.07 0.00 - 0.10 K/cumm [facility] ([place]) Lymphocyte abs 2.02 0.80 - 3.30 K/cumm [facility] ([place]) Monocyte abs 0.56 0.20 - 0.80 K/cumm [facility] ([place]) Eosinophil abs 0.09 0.00 - 0.50 K/cumm [facility] ([place]) Basophil abs 0.04 0.00 - 0.10 K/cumm [facility] ([place]) Neutrophil pct 54.5 % [facility] ([place]) Comment: Interpretive Data Percent cell count reference ranges are not reported, since discordance with absolute values may lead to misinterpretation of CBC data. Current Interpretive Data was last revised on 2017. Imm gran pct 1.1 % [facility] ([place]) Comment: Interpretive Data Percent cell count reference ranges are not reported, since discordance with absolute values may lead to misinterpretation of CBC data. Current Interpretive Data was last revised on 2017. Lymphocyte pct 33.0 % [facility] ([place]) Comment: Interpretive Data Percent cell count reference ranges are not reported, since discordance with absolute values may lead to misinterpretation of CBC data. Current Interpretive Data was last revised on 2017. Monocyte pct 9.2 % [facility] ([place]) Comment: Interpretive Data Percent cell count reference ranges are not reported, since discordance with absolute values may lead to misinterpretation of CBC data. Current Interpretive Data was last revised on 2017. Eosinophil pct 1.5 % [facility] ([place]) Comment: Interpretive Data Percent cell count reference [...] ORDERABLES Marylu jeffery Result Performing Organization Address City/[facility]/ZIP Co de Phone Number [facility] ([place]) 1 [facility] [place] [address] * CBC with auto differential (07/27/2024 6:37 [...] Marylu jeffery Result [facility] ([place] 1 [facility] [place] [address] * Comprehensive metabolic panel (07/27/2024 6:37 AM [...] Marylu jeffery Result [facility] ([place]) 1 [facility] [email or web address] [address] * POCT glucose (07/27/2024 2:58 AM CDT) Glucose, POC 179 70 - 199 mg/dL Blood 07/27/2024 2:58 AM CDT 07/27/2024 2:58 AM CDT Kassi Johnson MD LAB POCT ORDERABLES - DEV ICE Final Result Performing Organization Address City/[facility]/ZIP Co de Phone Number [facility] ([place]) 1 [facility] [email or web address] [address] * (ABNORMAL) POCT glucose (07/26/2024 8:22 PM CDT) Glucose, POC 287(H) 70 - 199 mg/dL Blood 07/26/2024 8:22 PM CDT 07/26/2024 8:22 PM CDT Kassi Johnson MD LAB POCT ORDERABLES - DEV ICE Final Result Performing Organization Address City/[facility]/ZIP Co de Phone Number [facility] ([place]) 1 [facility] [email or web address] [address] * (ABNORMAL) POCT glucose (07/26/2024 4:38 PM CDT) Glucose, POC 262(H) 70 - 199 mg/dL Blood 07/26/2024 4:38 PM CDT 07/26/2024 4:38 PM CDT Kassi Johnson MD LAB POCT ORDERABLES - DEV ICE Final Result [facility] ([place]) 1 [facility] [email or web address] [address] * (ABNORMAL) POCT glucose (07/26/2024 11:27 AM CDT) Glucose, POC 245(H) 70 - 199 mg/dL Blood 07/26/2024 11:2 7 AM CDT 07/26/2024 11:27 AM CDT Kassi Johnson MD LAB POCT ORDERABLES - DEV ICE Final Result [facility] ([place]) 1 [facility] [place] [address] * POCT glucose (07/26/2024 7:53 AM CDT) Glucose, POC 174 70 - 199 mg/dL Blood 07/26/2024 7:53 AM CDT 07/26/2024 7:53 AM CDT Kassi Johnson MD LAB POCT ORDERABLES - DEV ICE Final Result Performing Organization Address City/[facility]/ZIP Co de Phone Number [facility] ([place]) 1 [facility] [place] [address] * eGFR (07/26/2024 5:46 AM CDT) eGFR [...] LAB BLOOD ORDERABLES Marylu jeffery Result JUST[facility] ([place]) 1 [facility] Department [place] [address] * Differential, auto (07/26/2024 5:46 AM CDT) Neutrophil abs 3.41 1.50 - 6.50 K/cumm Imm gran abs 0.05 0.00 - 0.10 K/cumm [facility] ([place]) Lymphocyte abs 2.07 0.80 - 3.30 K/cumm [facility] ([place]) Monocyte abs 0.51 0.20 - 0.80 K/cumm [facility] ([place]) Eosinophil abs 0.08 0.00 - 0.50 K/cumm [facility] ([place]) Basophil abs 0.03 0.00 - 0.10 K/cumm [facility] ([place]) Neutrophil pct 55.4 % [facility] ([place]) Comment: Interpretive Data Percent cell count reference [...] MD LAB BLOOD ORDERABLES Marylu jeffery Result [facility] ([place] 1 [facility] Department [place] [address] * CBC with auto differential (07/26/2024 5:46 [...] NRBC abs 0.00 0.00 - 0.01 K/cumm [facility] ([place]) Blood 07/26/2024 5:46 AM CDT 07/26/2024 6:08 AM CDT us Kassi Johnson MD LAB BLOOD ORDERABLES Marylu latia Result [facility] ([place]) 1 [facility] Department [place] [address] * Comprehensive metabolic panel (07/26/2024 5:46 AM [...] ([place]) Glucose 151 70 - 199 mg/dL [facility] Comment: Interpretive Data Fasting glucose [...] 18 10 - 50 Units/L [facility] ([place]) Blood 07/26/2024 5:46 AM CDT 07/26/2024 6:09 AM CDT Kassi Johnson MD LAB BLOOD ORDERABLES Marylu l Result [facility] ([place]) 1 [facility] [email or web address] [address] * POCT glucose (07/26/2024 2:48 AM CDT) Glucose, POC 141 70 - 199 mg/dL Blood 07/26/2024 2:48 AM CDT 07/26/2024 2:48 AM CDT Kassi Johnson MD LAB POCT ORDERABLES - DEV ICE Final Result Performing Organization Address [facility] Co de Phone Number [facility] ([place]) 1 [facility] [email or web address] [address] * POCT glucose (07/25/2024 8:31 PM CDT) Glucose, POC 172 70 - 199 mg/dL Blood 07/25/2024 8:31 PM CDT 07/25/2024 8:31 PM CDT Kassi Johnson MD LAB POCT ORDERABLES - DEV ICE Final Result Performing Organization Address City/[facility]/ZIP Co de Phone Number [facility] ([place]) 1 [facility] [email or web address] [address] * (ABNORMAL) POCT glucose (07/25/2024 4:26 PM CDT) Glucose, POC 203(H) 70 - 199 mg/dL Blood 07/25/2024 4:26 PM CDT 07/25/2024 4:26 PM CDT Kassi Johnson MD LAB POCT ORDERABLES - DEV ICE Final Result [facility] [place]) 1 [facility] [email or web address] [address] * POCT glucose (07/25/2024 11:49 AM CDT) Glucose, POC 191 70 - 199 mg/dL Blood 07/25/2024 11:4 9 AM CDT 07/25/2024 11:49 AM CDT Kassi Johnson MD LAB POCT ORDERABLES - DEV ICE Final Result Performing Organization Address [facility] Co de Phone Number [facility] ([place]) [address] [place] [address] [email or web address] [address] * POCT glucose (07/25/2024 7:38 AM CDT) Glucose, POC 171 70 - 199 mg/dL Blood 07/25/2024 7:38 AM CDT 07/25/2024 7:38 AM CDT Kassi Johnson MD LAB POCT ORDERABLES - DEV ICE Final Result Performing Organization Address City/[facility]/ZIP Co de Phone Number [facility] ([place]) 1 [facility] [email or web address] [address] * eGFR (07/25/2024 4:15 AM CDT) eGFR [...] BLOOD ORDERABLES Marylu jeffery Result [facility] ([place]) 1 [facility] Department [place] [address] * Differential, auto (07/25/2024 4:15 AM CDT) [...] Marylu jeffery Result [facility] ([place]) 1 [facility] Department [place] [address] * CBC with auto differential (07/25/2024 4:15 [...] ([place]) MCH 28.5 27.1 - 33.3 pg [facility] MCHC 33.7 32.3 - 35.7 g/dL [facility] ([place]) RDW CV 12.1 11.1 - 14.9 % [facility] ([place]) RDW SD 37.2 35.7 - 48.1 fL [facility] ([place]) NRBC abs 0.00 0.00 - 0.01 K/cumm [facility] ([place]) Blood 07/25/2024 4:15 AM CDT 07/25/2024 4:28 AM CDT us Kassi Johnson MD LAB BLOOD ORDERABLES Marylu jeffery Result [facility] ([place]) 1 [facility] Department [place] [address] * Comprehensive metabolic panel (07/25/2024 4:15 AM CDT) Sodium 139 135 - 145 mmol/L Potassium, pl 3.6 3.3 - 4.9 mmol/L [facility] ([place]) Chloride 101 97 - 110 mmol/L [facility] CO2 26 22 - 32 mmol/L [facility] ([place]) Anion gap 12 2 - 15 mmol/L [facility] ([place]) BUN 9 6 - 25 mg/dL [facility] ([place]) Creatinine 1.00 0.80 - 1.30 mg/dL [facility] ([place]) Glucose 134 70 - 199 mg/dL [facility] ([place]) Comment: Interpretive Data Fasting [...] 2022. Calcium 9.8 8.5 - 10.3 mg/dL [facility] ([place]) Bilirubin, total 0.4 0.1 - 1.2 mg/dL [facility] ([place] Protein, pl 7.4 6.5 - 8.5 g/dL [facility] ([place]) Albumin 4.1 3.5 - 5.0 g/dL [facility] ([place]) Alk phos 84 40 - 130 Units/L [facility] ([place]) ALT 27 7 - 55 Units/L [facility] ([place]) AST 20 10 - 50 Units/L [facility] Blood 07/25/2024 4:15 AM CDT 07/25/2024 4:28 AM CDT Kassi Johnson MD LAB BLOOD ORDERABLES Marylu l Result [facility] ([place]) 1 [facility] [email or web address] [address] * POCT glucose (07/25/2024 2:14 AM CDT) Glucose, POC 116 70 - 199 mg/dL Blood 07/25/2024 2:14 AM CDT 07/25/2024 2:14 AM CDT Kassi Johnson MD LAB POCT ORDERABLES - DEV ICE Final Result [facility] ([place]) 1 [facility] [email or web address] [address] * (ABNORMAL) POCT glucose (07/24/2024 8:09 PM CDT) Glucose, POC 223(H) 70 - 199 mg/dL Blood 07/24/2024 8:09 PM CDT 07/24/2024 8:09 PM CDT Kassi Johnson MD LAB POCT ORDERABLES - DEV ICE Final Result Performing Organization Address City/[facility]/ZIP Co de Phone Number [facility] ([place]) 1 [facility] [email or web address] [address] * (ABNORMAL) POCT glucose (07/24/2024 4:49 PM CDT) Glucose, POC 277(H) 70 - 199 mg/dL Blood 07/24/2024 4:49 PM CDT 07/24/2024 4:49 PM CDT Kassi Johnson MD LAB POCT ORDERABLES - DEV ICE Final Result Performing Organization Address [facility] Co de Phone Number [facility] ([place]) 1 [facility] [email or web address] [address] * (ABNORMAL) POCT glucose (07/24/2024 11:23 AM CDT) Glucose, POC 246(H) 70 - 199 mg/dL Blood 07/24/2024 11:2 3 AM CDT 07/24/2024 11:23 AM CDT Austin Salcido MD LAB POCT ORDERABLES - GARRETT CE Final Result Performing Organization Address City/[facility] Co de Phone Number [facility] ([place]) 1 [facility] [email or web address] [address] * MRI Brain WO Contrast (07/24/2024 10:14 [...] Tc Xavier M.D. ACE: ACE Report ID: [id number] Reading Location: [place] [address] Procedure Note Tc Xavier MD - 07/24/2024 EXAM DESCRIPTION: MRI BRAIN WO CONTRAST REASON FOR STUDY: Headaches and left-sided weakness of unspecifiedduration without provision of last known normal. No provided history of trauma or inciting and/or aggravating events. No provided past medical or surgical history. TECHNIQUE: Multiplanar imaging includes non-contrasted T1, T2, FLAIR, and diffusion with ADC map sequences. Additional sequence(s) sensitive toblood products. Images stored on PACS. COMPARISON: CT [...] Tc Xavier M.D. ACE: ACE Report ID: [id number] Reading Location: [place] [address] us Austin Salcido MD IMG MRI PROCEDURES Final R esult * POCT glucose (07/24/2024 8:04 AM CDT) Glucose, POC 175 70 - 199 mg/dL Blood 07/24/2024 8:04 AM CDT 07/24/2024 8:04 AM CDT us Austin Salcido MD LAB POCT ORDERABLES - GARRETT CE Final Result JUST[facility] [place] 1 [facility] Department [place] [address] * eGFR (07/24/2024 4:12 AM CDT) eGFR [...] Salcido MD LAB BLOOD ORDERABLES Final Result [facility] ([place]) 1 [facility] Department [place] [address] * CBC without differential (07/24/2024 4:12 AM [...] MD LAB BLOOD ORDERABLES Final Result [facility] ([place]) 1 [facility] Department [place] [address] * (ABNORMAL) Basic metabolic panel (07/24/2024 4:12 AM CDT) Sodium 136 135 - 145 mmol/L Potassium, pl 3.4 3.3 - 4.9 mmol/L [facility] ([place]) Chloride 101 97 - 110 mmol/L [facility] ([place]) CO2 22 22 - 32 mmol/L [facility] ([place]) Anion gap 13 2 - 15 mmol/L [facility] ([place]) BUN 8 6 - 25 mg/dL [facility] ([place]) Creatinine 0.77(L) 0.80 - 1.30 mg/dL [facility] ([place]) Glucose 176 70 - 199 mg/dL [facility] ([place]) [...] 8.5 - 10.3 mg/dL [facility] ([place]) Blood 07/24/2024 4:12 AM CDT 07/24/2024 5:33 AM CDT Austin Salcido MD LAB BLOOD ORDERABLES Final Result [facility] ([place]) 1 [facility] Department [place] [address] * CT Head WO Contrast (07/24/2024 1:07 [...] Topher Humphrey M.D. AR: CE Report ID: [id number] Reading Location: [id number] Procedure Note Topher Humphrey MD - 07/24/2024 [...] Topher Humphrey M.D. AR: CE Report ID: [id number] Reading Location: [place] [address] Genevieve Buckner MD IMG CT PROCEDURES Final Result * (ABNORMAL) POCT glucose (07/23/2024 9:23 PM CDT) Glucose, POC 253(H) 70 - 199 mg/dL Blood 07/23/2024 9:23 PM CDT 07/23/2024 9:23 PM CDT Austin Salcido MD LAB POCT ORDERABLES - GARRETT CE Final Result Performing Organization Address City/[facility]/ZIP Co de Phone Number [facility] ([place]) 1 [facility] [email or web address] [address] * (ABNORMAL) POCT glucose (07/23/2024 4:40 PM CDT) Glucose, POC 212(H) 70 - 199 mg/dL Blood 07/23/2024 4:40 PM CDT 07/23/2024 4:40 PM CDT Austin Salcido MD LAB POCT ORDERABLES - GARRETT CE Final Result [facility] ([place]) 1 [facility] [place] [address] * (ABNORMAL) POCT glucose (07/23/2024 12:04 PM CDT) Glucose, POC 273(H) 70 - 199 mg/dL Blood 07/23/2024 12:0 4 PM CDT 07/23/2024 12:04 PM CDT us Austin Salcido MD LAB POCT ORDERABLES - GARRETT CE Final Result [facility] ([place]) [address] [place] [address] Department of Laboratories [place], [place] [id number] * TRANSTHORACIC ECHO (TTE) COMPLETE W DOPPLER/CF WO CONTRAST W BUBBLE (07/23/2024 11:49 AM CDT) Anatomical Region Laterality Modality Ultrasound 07/23/2024 11:5 1 AM CDT Narrative 07/23/2024 2:[address] PM [address]T [address] [address] Echocardiogram Report Patient Name: AMA REHMAN W : 1985 Study Date: 07/23/2024 11:51:07 AM Gender: M Tech: AA Location: [id number] Ref Provider: GENEVIEVE BUCKNER Height(Cm): BSA: Weight(Kg): [...] Procedure Note Jose Julian MD - 07/23/[address] [place] [address] Echocardiogram Report Patient Name: AMA REHMAN W : 1985 Study Date: 07/23/2024 11:51:07 AM Gender: M Tech: Location: [id number] [facility] Provider: GENEVIEVE BUCKNER Height(Cm): BSA: Weight(Kg): Quality: [...] - GARRETT CE Final Result [facility] [place] [facility] Department [place] [address] * eGFR (07/23/2024 6:59 AM CDT) eGFR [...] ORDERABLES Final Resu lt Performing Organization Address City/[facility]/ZIP Co de Phone Number [facility] ([place]) 1 [facility] [email or web address] [address] * ABO/Rh (07/23/2024 6:59 AM CDT) ABO/Rh O Positive Blood 07/23/2024 6:59 AM CDT 07/23/2024 7:05 AM CDT Narrative [facility] ([place]) - 07/23/2024 7:45 AM CDT Has the patient had Daratumumab or Isatuximab in the past 6 months?->Unknown us Huey Kwon MD LAB BLOOD BANK TEST ORDERABLE S Final Result Performing Organization Address [facility] Co de Phone Number [facility] ([place]) 1 [facility] [place] [address] * (ABNORMAL) CBC without differential (07/23/2024 6:59 AM CDT) WBC 6.97 3.80 - 9.90 K/cumm Hgb 12.7(L) 13.0 - 17.5 g/dL [facility] ([place]) Hct 37.1(L) 38.9 - 50.3 % [facility] ([place]) Plt 218 150 - 400 K/cumm [facility] ([place]) MPV 9.0(L) 9.1 - 12.3 fL [facility] ([place]) RBC 4.37 4.30 - 5.80 M/cumm [facility] ([place]) MCV 84.9 81.3 - 96.4 fL [facility] ([place]) MCH 29.1 27.1 - 33.3 pg [facility] ([place]) MCHC 34.2 32.3 - 35.7 g/dL [facility] ([place]) RDW CV 12.1 11.1 - 14.9 % [facility] ([place]) RDW SD 37.2 35.7 - 48.1 fL [facility] ([place]) NRBC abs 0.00 0.00 - 0.01 K/cumm [facility] ([place]) Blood 07/23/2024 6:59 AM CDT 07/23/2024 7:05 AM CDT Genevieve Buckner MD LAB BLOOD ORDERABLES Final Resu lt Performing Organization Address City/[facility]/ZIP Co de Phone Number JUSTYNA [facility] ([place]) 1 [facility] [place] [employer] [address] * Antibody screen (07/23/2024 6:59 AM CDT) Tru, indirect, Gel Interpretation Negative ABSC Blood 07/23/2024 6:59 AM CDT 07/23/2024 7:05 AM CDT Narrative [facility] ([place]) - 07/23/2024 7:45 AM CDT Has the patient had Daratumumab or Isatuximab in the past 6 months?->Unknown Huey Kwon MD LAB BLOOD BANK TEST ORDERABLE S Final Result Performing Organization Address City/[facility]/ZIP Co de Phone Number [facility] ([place]) 1 [facility] [place] [address] * (ABNORMAL) Hemoglobin A1c (07/23/2024 6:59 AM CDT) Hgb A1C 8.4(H) 4.0 - 5.6 % Estimated Average Glucose 194 mg/dL [facility] ([place]) Comment: The ADA recommends reporting an estimated Average Glucose (eAG) with all Hemoglobin A1c results using the equation derived from a study of 507 normal and diabetic adults. Minority populations were underrepresented and children were not included. (Diabetes Care 31:5157-5812, 2008). The eAG is not equivalent to a fasting glucose. Blood 07/23/2024 6:59 AM CDT 07/23/2024 7:05 AM CDT Genevieve Buckner MD LAB BLOOD ORDERABLES Final Resu lt [facility] ([place]) 1 [facility] Department [place] [address] * (ABNORMAL) Lipid panel (07/23/2024 6:59 AM CDT) Cholesterol 144 30 - 199 mg/dL Comment: [...] on 2017. HDL 34(L) >=40 mg/dL [facility] ([place]) Comment: Interpretive Data Ages < or [...] 3. Tuan [place] et al. JENNIE Cardiol. 2019July 30;5(5):540-548. doi: 10.1001/jamacardio.2020.0013 Current Interpretive Data was last revised on 2023. Non-HDL Cholesterol 110 mg/dL JUSTYNA DAHL ([place]) Comment: Interpretive Data [...] last revised on 2017. Chol/HDL ratio 4 [facility] ([place]) Blood 07/23/2024 6:59 AM CDT 07/23/2024 7:05 AM CDT Genevieve Buckner MD LAB BLOOD ORDERABLES Final Resu lt JUSTYNA DAHL ([place]) 1 [facility] Department [place] [address] * (ABNORMAL) Basic metabolic panel (07/23/2024 6:59 [...] - 1.30 mg/dL [facility] ([place]) Glucose 252(H) 70 - 199 mg/dL [facility] ([place]) [...] 2022. Calcium 8.7 8.5 - 10.3 mg/dL [facility] ([place]) Blood 07/23/2024 6:59 AM CDT 07/23/2024 7:05 AM CDT Genevieve Buckner MD LAB BLOOD ORDERABLES Final Resu lt JUSTYNA DAHL ([place]) 1 [facility] [place] [address] * Infection Prevention MRSA Only (Staphylococcus aureus) PCR Nasal (07/23/2024 3:33 AM CDT) PCR Scrn, Methicillin resistant Staphylococcus aureus (MRSA) Not Detected Not Detected Comment: Interpretive Data Testing performed using Nucleic Acid Amplification with the AUM Cardiovascular Xpert MRSA NxG Assay. This assay detects target DNA from mecA, mecC and the SCCmec insertion site of Staphylococcus aureus using Real-Time PCR and has been cleared by the FDA. Performance characteristics have been verified by the [facility]. Current Interpretive Data was last revised on 2022 Nasal 07/23/2024 3:33 AM CDT 07/23/2024 3:42 AM CDT Austin Salcido MD LAB MICROBIOLOGY - GENERAL ORDERABLES Final Result JUSTYNA DAHL ([place]) 1 [place] [address] * (ABNORMAL) POCT glucose (07/23/2024 3:11 AM CDT) [facility] Glucose, POC 243(H) 70 - 199 mg/dL Blood 07/23/2024 3:11 AM CDT 07/23/2024 3:11 AM CDT Austin Salcido MD LAB POCT ORDERABLES - GARRETT CE Final Result JUSTYNA DAHL ([place]) 1 [place] [address] * ECG 12 lead (07/23/2024 1:16 AM CDT) 07/23/2024 1:16 AM CDT Narrative [facility] - 07/23/2024 4:25 PM CDT Vent Rate: 122 bpm RR Interval: 490 msec KS Interval: 132 msec QRS Duration: 92 msec QT Interval: 414 msec QTC Interval: 486 msec P-R-T [place]one: 48 - 20 - 49 degrees IMPRESSION: SINUS TACHYCARDIA POSSIBLE RIGHT VENTRICULAR CONDUCTION DELAY [RSR (QR) IN V1/V2] NONSPECIFIC T-WAVE ABNORMALITY ABNORMAL RHYTHM ECG NO CHANGE FROM PREVIOUS TRACING NOTED Electronically Signed By: Jose Julian MD Huey Kwon MD ECG ORDERABLES Final Result [facility] * Critical Care (07/23/2024 12:48 AM CDT) [...] plan with the ICU team and other medical/mergers and acquisitions consultant staff, making frequent assessments and decisions [...] Eric Guzmán M.D. AT: AT Report ID: [id number] Reading Location: [id number] Procedure Note Eric Guzmán MD - 07/22/2024 [...] Eric Guzmán M.D. AT: AT Report ID: [id number] Reading Location: [id number] us Huey Kwon MD IMG XR PROCEDURES Final Resul t * (ABNORMAL) Urinalysis reflex to microscopic and culture Urine (07/22/2024 11:28 PM CDT) Color, ur Straw Yellow Clarity, ur Clear Clear [facility] ([place]) Specific gravity, ur 1.010 1.003 - 1.030 [facility] ([place]) pH, urine 7.0 [facility] ([place]) Comment: Interpretive Data U rine pH is affected by diet, medications, systemic acid-base disturbances, and renal tubular function. pH may affect urinary stone formation. For example, urine pH below 6.0 may help reduce the tendency for calcium phosphate stones and pH greater than 6.0 may reduce the tendency for uric acid stone formation. Source: [email or web address] Current Interpretive Data was last revised on [...] for microscopic UA and culture not met. [facility] ([place]) Urine 07/22/2024 11:2 8 PM CDT 07/22/2024 11:34 PM CDT us Huey Kwon MD LAB MICROBIOLOGY - GENERAL OR DERABLES Final Result JUSTYNA NABILA ([place]) 1 [facility] Department [place] [address] * CTA Chest Abdomen Pelvis (07/22/2024 11:15 [...] Sekou Kan M.D. KH: JOHNY Report ID: [id number] Reading Location: [place] [address] Procedure Note Sekou Kan MD - 07/22/2024 [...] Sekou Kan M.D. KH: JOHNY Report ID: [id number] Reading Location: [place] [address] us Huey Kwon MD [facility] PROCEDURES Final Resul t * ECG 12 lead (07/22/2024 10:52 PM CDT) 07/22/2024 10:5 2 PM CDT [facility] - 07/23/2024 4:25 PM CDT Vent Rate: 105 bpm RR Interval: 568 msec KS Interval: 155 msec QRS Duration: 90 msec QT Interval: 329 msec QTC Interval: 390 msec P-R-T [place]: 33 - 12 - 49 degrees IMPRESSION: SINUS TACHYCARDIA POSSIBLE LEFT ATRIAL ENLARGEMENT [-0.1mV P-WAVE IN V1/V2] POSSIBLE RIGHT VENTRICULAR CONDUCTION DELAY [RSR (QR) IN V1/V2] ABNORMAL RHYTHM ECG NO CHANGE FROM PREVIOUS TRACING NOTED Electronically Signed By: Jose Julian MD us Huey Kwon MD ECG ORDERABLES Final Result [facility] [place] [facility] * CTA Stroke Head Neck W [...] injected COMPARISON: 07/22/2024, 07/19/2024 FINDINGS: INTRACRANIAL VESSELS [place]: The anterior, middle, posterior cerebral [...] to DR. HUEY KWON at 11:04 p.m. WIRELINE OPERATOR on 07/22/2024. THIS IS AN ELECTRONICALLY VERIFIED FINAL REPORT 07/22/2024 11:07 PM - Electronically signed by Eric Guzmán M.D. AT: AT Report ID: [id number] Reading Location: [id number] Procedure Note Eric Guzmán MD - 07/22/2024 EXAM DESCRIPTION: CTA STROKE [...] injected COMPARISON: 07/22/2024, 07/19/2024 FINDINGS: INTRACRANIAL VESSELS [place]: The anterior, middle, posterior cerebral [...] Guzmán to DR. HUEY KWON at 11:04 p.m.WIRELINE OPERATOR on 07/22/2024. THIS IS AN ELECTRONICALLY VERIFIED FINAL REPORT 07/22/2024 11:07 PM - Electronically signed by Eric Guzmán M.D. AT: AT Report ID: [id number] Reading Location: [id number] us Huey Kwon MD [facility] PROCEDURES Final Resul t * Troponin [...] BLOOD ORDERABLES Final Re sult JUSTYNA DAHL ([place]) 1 [facility] [email or web address] [address] * Sepsis Lactate w/ Reflex (07/22/2024 10:44 PM CDT) Sepsis Lactate 1.8 0.7 - 2.0 mmol/L Blood 07/22/2024 10:4 4 PM CDT 07/22/2024 10:53 PM CDT us Huey Kwon MD LAB BLOOD ORDERABLES Final Re sult Performing Organization Address City/[facility]/ZIP Co de Phone Number JUSTYNA DAHL ([place]) [address] [place] [address] [email or web address] [address] * eGFR (07/22/2024 10:44 PM CDT) eGFR [...] BLOOD ORDERABLES Final Re sult [facility] ([place]) 1 [facility] Department [place] [address] * Differential, auto (07/22/2024 10:44 PM CDT) Neutrophil abs 3.13 1.50 - 6.50 K/cumm Imm gran abs 0.05 0.00 - 0.10 K/cumm [facility] ([place]) Lymphocyte abs 2.48 0.80 - 3.30 K/cumm [facility] ([place]) Monocyte abs 0.53 0.20 - 0.80 K/cumm [facility] ([place]) Eosinophil abs 0.09 0.00 - 0.50 K/cumm [facility] ([place]) Basophil abs 0.03 0.00 - 0.10 K/cumm [facility] ([place]) Neutrophil pct 49.6 % [facility] ([place]) Comment: Interpretive [...] Lymphocyte pct 39.3 % [facility] ([place]) Comment: Interpretive Data Percent cell count reference ranges are not reported, since discordance with absolute values may lead to misinterpretation of CBC data. Current Interpretive Data was last revised on 2017. Monocyte pct 8.4 % [facility] ([place]) Comment: Interpretive Data Percent cell count reference ranges are not reported, since discordance with absolute values may lead to misinterpretation of CBC data. Current Interpretive Data was last revised on 2017. Eosinophil pct 1.4 % [facility] ([place]) Comment: Interpretive [...] MD LAB BLOOD ORDERABLES Final Re sult [facility] ([place]) 1 [facility] Department [place] [address] * (ABNORMAL) CBC with auto differential (07/22/2024 [...] RDW SD 36.6 35.7 - 48.1 fL JUSTYNA [facility] ([place]) NRBC abs 0.00 0.00 - 0.01 K/cumm JUSTYNA [facility] ([place]) Blood Venous blood specimen / Unknown 07/22/2024 10:44 PM CDT 07/22/2024 10:53 PM CDT Narrative JUSTYNA [facility] ([place]) - 07/22/2024 10:57 PM CDT Potential Stroke Patient Huey Kwon MD LAB BLOOD ORDERABLES Final Re sult Performing Organization Address [facility] de Phone Number [facility] ([place] 1 [facility] [email or web address] [address] * aPTT (07/22/2024 10:44 PM CDT) aPTT 34 28 - 38 sec [facility] ([place]) Comment: Interpretive Data Heparin therapeutic range: 66.0 - 100.0 seconds. Range based on correlation with therapeutic heparin activity range of 0.3 - 0.7 Units/mL. Current interpretive data was last revised on 2022. Blood Venous blood specimen / Unknown 07/22/2024 10:44 PM CDT 07/22/2024 10:53 PM CDT Narrative JUSTYNA DAHL ([place]) - 07/22/2024 11:36 PM CDT Potential stroke patient. Huey Kwon MD LAB BLOOD ORDERABLES Final Re sult Performing Organization Address [facility] Co de Phone Number JUSTYNA DAHL ([place]) 1 [facility] [place] [address] * Protime-INR (07/22/2024 10:44 PM CDT) PT 10.4 9.7 - 13.0 sec [facility] ([place]) INR 0.96 0.90 - 1.20 [facility] ([place]) Comment: Interpretive data Oral anticoagulant therapeutic ranges: Venous thromboembolism prophylaxis or treatment: 2.0-3.0 CARDIOLOGY Standard range: 2.0-3.0 High-intensity range: 2.5-3.5 Refer to indication-specific guidelines for appropriate target ranges for prosthetic heart valve replacement. Current interpretive data was last revised on 2019. Blood 07/22/2024 10:4 4 PM CDT 07/22/2024 10:53 PM CDT Huey Kwon MD LAB BLOOD ORDERABLES Final Re sult Performing Organization Address City/[facility] Co de Phone Number JUSTYNA DAHL ([place]) 1 [facility] [email or web address] [address] * Magnesium (07/22/2024 10:44 PM CDT) Magnesium 1.7 1.4 - 2.5 mg/dL Blood 07/22/2024 10:4 4 PM CDT 07/22/2024 10:53 PM CDT Heuy Kwon MD LAB BLOOD ORDERABLES Final Re sult Performing Organization Address [facility] de Phone Number JUSTYNA DAHL ([place]) 1 [facility] [email or web address] [address] * Blood gas, venous (07/22/2024 10:44 PM CDT) pH, Venous 7.38 7.32 - 7.43 PCO2, [...] ORDERABLES Final Re sult Performing Organization Address [facility]/State/ZIP Co de Phone Number [facility] ([place]) 1 [facility] Department [place] [address] * (ABNORMAL) Comprehensive metabolic panel (07/22/2024 10:44 PM CDT) Sodium 135 135 - 145 mmol/L Potassium, [...] 4.2 3.5 - 5.0 g/dL [facility] ([place]) Alk phos 103 40 - 130 Units/L [facility] ([place]) ALT 32 7 - 55 Units/L [facility] ([place]) AST 22 10 - 50 Units/L [facility] ([place]) Comment:Slightly Hemolyzed S pecimen Blood Venous blood specimen / Unknown 07/22/2024 10:44 PM CDT 07/22/2024 10:53 PM CDT Narrative JUSTYNA DAHL ([place]) - 07/22/2024 11:21 PM CDT Potential Stroke Patient us Huey Kwon MD LAB BLOOD ORDERABLES Final Re sult JUSTYNA DAHL ([place]) 1 [facility] Department [place] [address] * CT Stroke Head WO Contrast (07/22/2024 [...] Topher Humphrey M.D. AR: CE Report ID: [id number] Reading Location: [id number] Procedure Note Topher Humphrey MD - 07/22/2024 [...] Topher Humphrey M.D. AR: CE Report ID: [id number] Reading Location: [place] [address] us Huey Kwon MD IMG CT PROCEDURES Final Resul t * (ABNORMAL) POCT glucose (07/22/2024 10:08 PM CDT) Glucose, POC 257(H) 70 - 199 mg/dL Blood 07/22/2024 10:0 8 PM CDT 07/22/2024 10:08 PM CDT us Notinfile Unknown LAB POCT ORDERABLES - DEVICE F inal Result [facility] ([place]) 1 [facility] Department [place] [address] * XR Kub (07/22/2024 12:08 PM CDT) [...] Topher Humphrey M.D. AR: CE Report ID: [id number] Reading Location: [id number] Procedure Note Topher Humphrey MD - 07/22/2024 [...] Topher Humphrey M.D. AR: CE Report ID: [id number] Reading Location: [place] [address] Rubio Martinez WELLFIELD TECHNICIAN IMG XR PROCEDURES F inal Result * (ABNORMAL) POCT glucose (07/20/2024 12:49 AM CDT) Glucose, POC 250(H) 70 - 199 mg/dL Blood 07/20/2024 12:4 9 AM CDT 07/20/2024 12:49 AM CDT Roma Alva MD LAB POCT ORDERABLES - DEVICE Fin al Result [facility] [place] 1 [facility] Department [place] [address] * CT Head WO Contrast (07/19/2024 11:48 [...] Sekou Gaines M.D. KT: NADEEN Report ID: [id number] Reading Location: [id number] Procedure Note Sekou Gaines MD - 07/20/2024 [...] Sekou Gaines M.D. KT: NADEEN Report ID: [id number] Reading Location: [place] [address] Roma Alva MD IMG CT PROCEDURES Final Result * eGFR (07/19/2024 [...] 9 PM CDT 07/19/2024 11:50 PM CDT Roma Alva MD LAB BLOOD ORDERABLES Final Resul t [facility] [place] 1 [facility] Department [place] [address] * Differential, auto (07/19/2024 11:19 PM CDT) [...] revised on 2017. Monocyte pct 8.2 % [facility] ([place]) Comment: Interpretive Data [...] BLOOD ORDERABLES Final Resul t JUSTYNA DAHL ([place]) 1 [facility] [place] [address] * CBC with auto differential (07/19/2024 11:19 [...] - 0.01 K/cumm [facility] ([place]) Blood 07/19/2024 11:1 9 PM CDT 07/19/2024 11:47 PM CDT us Roma Alva MD LAB BLOOD ORDERABLES Final Resul t JUSTYNA DAHL ([place]) 1 [facility] [email or web address] [address] * (ABNORMAL) Basic metabolic panel (07/19/2024 11:19 PM CDT) Sodium 137 135 - 145 mmol/L Potassium, pl 3.5 3.3 - 4.9 mmol/L [facility] ([place]) Chloride 97 97 - 110 mmol/L [facility] ([place]) CO2 23 22 - 32 mmol/L [facility] ([place]) Anion gap 17(H) 2 - 15 mmol/L [facility] ([place]) BUN 11 6 - 25 mg/dL [facility] ([place]) Creatinine 0.82 0.80 - 1.30 mg/dL [facility] ([place]) Glucose 288(H) 70 - 199 mg/dL [facility] ([place]) Comment: Interpretive Data Fasting glucose >/= [...] 2022. Calcium 10.0 8.5 - 10.3 mg/dL [facility] ([place]) Blood 07/19/2024 11:1 9 PM CDT 07/19/2024 11:50 PM CDT us Roma Alva MD LAB BLOOD ORDERABLES Final Resul t JUSTYNA [facility] ([place]) 1 [facility] [place] [address] * POCT glucose (06/24/2024 10:12 AM CDT) Glucose, POC 139 70 - 199 mg/dL Blood 06/24/2024 10:1 2 AM CDT 06/24/2024 10:12 AM CDT us Allan Peñaloza MD LAB POCT ORDERABLES - GARRETT CE Final Result JUSTYNA [facility] ([place]) [address] [place] [address] Department [place] [address] * Flexible Sigmoidoscopy (06/24/2024 9:42 AM CDT) Anatomical Region Laterality Modality Other Narrative Procedure Note Allan Peñaloza MD - 06/24/2024 9:42 AM CDT Digestive [facility] Patient Name: Ama Rehman Procedure Date: 06/24/2024 9:42 AM Date of : 1985 Admit Type: Outpatient Age: 38 Gender: Male Attending MD: Allan Peñaloza M.D. Room: [facility] ENDOSCOPY ROOM 1 Note Status: Finalized Patient [...] with split dose instruction. The Endoscope [id number] was introduced through the anus and advanced [...] 9:42 AM Procedure Code(s): --- Professional --- 62120, Sigmoidoscopy, flexible; diagnostic, including collection of specimen(s) by brushing or washing, when performed (separateprocedure) Diagnosis Code(s): --- Professional --- K60.2, Anal fissure, unspecified K64.8, Other hemorrhoids K62.5, Hemorrhage of anus and rectum CPT copyright 2020 [employer]. All rights reserved. The codes documented in this report are preliminary and upon computer typesetter keyliner reviewmay be revised to meet current compliance requirements. Recognized by the [employer] for promoting quality in endoscopy Allan Peñaloza MD ENDOSCOPY PROCEDURES Final Result * Hepatitis panel, acute (09/25/2019 7:23 AM CDT) HepBsAg NONREACT NONREACTIVE [facility] Comment: Siemens CentaurXP using TAMMY (chemiluminescent immunoassay) technology. NONREACTIVE: IgM antibodies to Hepatitis B Surface antigen not detected. REACTIVE: IgM antibodies to Hepatitis B Surface antigen detected. Reactive results will be confirmed by neutralization testing. HBsAb qn 129.36 mIU/mL [facility] Comment: [employer]ens CentaurXP using TAMMY (chemiluminescent immunoassay) technology. 9.99 IU/L or less.....NONREACTIVE: IgM antibodies to Hepatitis B Surface antibody are not detected. 10.00 IU/L or greater..REACTIVE: IgM antibodies to Hepatitis B Surface antibody are detected. Hep B core IgM NONREACT NONREACTIVE [facility] Comment: Siemens CentaurXP using TAMMY (chemiluminescent immunoassay) technology. NONREACTIVE: IgM antibodies to Hepatitis B Core antigen not detected. EQUIVOCAL: IgM antibodies to Hepatitis B Core antigen may or may not be present. Obtain a new specimen and retest. REACTIVE: IgM antibodies to Hepatitis B Core antigen detected. Hep A IgM NONREACT NONREACTIVE [facility] Comment: Siemens CentaurXP using TAMMY (chemiluminescent immunoassay) technology. NONREACTIVE: IgM antibodies to Hepatitis A not detected. This does not exclude possibility of exposure to Hepatitis A or early acute infection. EQUIVOCAL:IgM antibodies to Hepatitis A may or may not be present. Suggest recollection and retest. REACTIVE: Antibodies to Hepatitis A detected. Hep C Ab NONREACT NONREACTIVE [facility] Comment: Siemens CentaurXP using TAMMY (chemiluminescent [...] MICROBIOLOGY - GENERAL OR DERABLES Final Result [address] [address], [facility] [phone] from Last 3 Months or Most Recently Relevant to Health Maintenance Insurance [facility] [place] ACCESS CHOICE [facility] ANTHEM ACCESS CHOICE ANTHEM ACCESS CHOICE Advance Directives For more information, please contact: [phone] * Full Code (Latest Code Status on File) Date Activated Date Inactivated Comments 07/23/2024 1:54 AM 07/27/2024 8:14 PM * Full Code Date Activated Date Inactivated Comments 06/24/2024 9:31 AM 06/24/2024 4:57 PM * Full Code Date Activated Date Inactivated Comments 06/24/2024 9:31 AM 06/24/2024 9:31 AM * Full Code Date Activated Date Inactivated Comments 06/19/2023 7:33 PM 06/21/2023 5:05 PM Care Teams Liability Claims Representative Relationship Specialty Start Date End Date Nikky Cunningham MD [address] [facility] [facility] [address] [place] [address] PCP - General Family Medicine 07/23/24
--- OUTSIDE RECORDS SUMMARY | 2024-07-31 07:34 | XMS_ITS | Data Portability ---
Author Organization [facility] JEFFMelinda Address [address] [place] [address] Care Team Providers Care Truck Bracer Name Role Phone ARELY YOUNG Primary Care Provider [phone] Assessment Encounter Date Assessment Date Assessment LastModified by Organization Details LastModified Time 04/15/2024 04/15/2024 Merlene Sterling, DO supervised OMT Not available 04/21/2024 13:46:27 [...] DO Not Attach Compendium, Do Not Delete/merge, [id number] 03/18/2024 11:33:14 rapid SARS CoV 2 Ag, QL IA, respirat ory specimen 2023 024 [email or web address] In-Office Order, Internal Use Only DO Not Attach Compendium DO Not Attach Compendium, Do Not Delete/merge, [id number] 03/18/2024 11:33:13 HbA1c (hemoglo bin A1c), blood 2023 024 [email or web address] In-Office Order, Internal Use Only DO Not Attach Compendium DO Not Attach Compendium, Do Not Delete/merge, [id number] 09/29/2023 22:33:33 Referral None recorded . Procedures None recorded . Surgeries None recorded . Imaging NM, hepatobi liary scan 2023 024 lglisa [facility] Scheduling, [address] [facility], [place], [address], 01/27/2024 12:08:22 Medication Orders albutero l sulfate HFA 90 mcg/actu ation aerosol inhaler 2024 025 [email or web address] [address], [address], 07/22/2024 11:48:28 doxycycl ine hyclate 100 mg capsule 2024 025 [email or web address] [address], [address], 07/22/2024 11:48:05 Zofran 4 mg tablet 2023 024 [facility] [address], [address], 03/18/2024 11:56:39 benzonat ate 200 mg capsule 2023 025 [facility] [address], [address], 04/08/2024 12:02:05 albutero l sulfate HFA 90 mcg/actu ation aerosol inhaler 2023 024 [facility] [address], [address], 03/18/2024 11:33:12 amlodipi ne 10 mg tablet 2023 024 [facility] [address], [address], 09/27/2023 14:22:14 Patient TargetsNo targets recorded. Patient Instructions Encounter Date Encounter Id Patient Instructions Last Modified By Organization Details Last Modified Time 09/27/2023 [id number] A healthy lifestyle: care instructions [email or web address] Not available 09/27/2023 09:25:51 Attending Physician Attestation I did not personally see or examine the patient with the resident. I was physically present to provide indirect supervision through entire encounter. I have reviewed the documentation and agree with the history, physical findings, work-up, and medical decision making as recorded. Devi Gold MD mmetias Not available 09/27/2023 10:18:18 03/18/2024 [id number] Attending Physician Attestation I did not personally see or examine the patient with the resident. I was physically present to provide indirect supervision through entire encounter. I have reviewed the documentation and agree with the history, physical findings, work-up, and medical decision making as recorded. Devi Gold MD mmetias Not available 03/18/2024 11:53:13 04/08/2024 [id number] A healthy lifestyle: care instructions [email or web address] Not available 04/10/2024 11:45:29 I personally saw and examined the patient with the resident. I agree with the note and plan as documented. Jacklyn Bal MD. [facility] [email or web address] Not available 04/08/2024 12:30:38 04/15/2024 [id number] I was present in the room with the patient and resident at the time of assessment and treatment. I agree with the plan. Merlene Sterling DO Not available 04/21/2024 13:46:55 Reason for Referral None Reported. Results Created Date Observation Date Name Description Value Unit Range Abnormal Flag Note LastModifiedBy Organization Detail LastModifiedTime 09/27/19 24 09/27/2023 HbA1c (hemo globi n A1c), blood HbA1c 6.0 Not Available In-Office Order Internal Use Only DO Not Attach Compendium DO Not Attach Compendium, Do Not Delete/merge, [id number] 09/27/2023 10:01:48 03/18/20 24 03/18/2024 rapid SARS CoV 2 Ag, QL IA, respi rator y speci men rapid SARS CoV 2 Ag, QL IA, respiratory specimen negati ve Not Available In-Office Order Internal Use Only DO Not Attach Compendium DO Not Attach Compendium, Do Not Delete/merge, [id number] 03/18/2024 10:54:17 03/18/20 24 03/18/2024 rapid flu (A+B) Flu A negati ve Not Available In-Office Order Internal Use Only DO Not Attach Compendium DO Not Attach Compendium, Do Not Delete/merge, [id number] 03/18/2024 10:54:16 03/18/20 24 03/18/2024 rapid flu (A+B) Flu B negati ve Not Available In-Office Order Internal Use Only DO Not Attach Compendium DO Not Attach Compendium, Do Not Delete/merge, [id number] 03/18/2024 10:54:16 04/03/19 25 03/20/2024 CT, abdom en + pelvi s, w/ contr ast No observ ation record ed. [email or web address], [address], 04/03/2024 09:58:53 Result Notes None recorded. 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, [place], [address], [place] [facility] 2 22:15:53 Obesity 251259448 Active 2021 Starla Parham MD Attn: Rosy gonzalez,[address] [facility], [place], [address], [place] [facility] 2 22:16:02 Radial styloid tenosynovi tis 33028301 Active 2023 ARELY YOUNG MD Attn: Rosy gonzalez,[address] [facility], [place], [address], [place] [facility] 4 09:24:31 Tubular adenomatou s polyp of colon 080244254 Active 202307/15/2023 tubular adenoma polyp in the transverse colon ARELY YOUNG MD Attn: Rosy gonzalez,[address] [facility], [place], [address], [place] [facility] 4 14:42:34 Mild intermitte nt asthma 442741969 Active 2023 ARELY YOUNG MD Attn: Rosy gonzalez,[address] [facility], [place], [address], [place] [facility] 4 10:53:38 Problem Notes None recorded. Procedures Surgical History Date Name Laterality Status Provider Name and Address Organization Details Recorded Time 04/15/19 25 Generic Procedure completed ANJELICA ZAMORA DO Attn: Ivette, [address] [facility], [place], [address], [place] [facility] 04/20/2024 14:40:20 03/21/20 24 Cholecystectomy completed ARIEL [place]rickson [place] [facility] 04/15/2024 10:50:39 07/27/19 21 Diabetic Foot Exam completed Denisha Uriarte [place] [facility] 08/01/2020 00:33:16 11/30/19 20 Skin Tag Removal completed Cosmo Valverde [place] [facility] 11/30/2019 16:42:21 Carpal tunnel surgery completed Vielka Millard [place] - [facility] 09/27/2023 09:13:16 colonoscopy completed Vielka Millard MA [facility] 09/27/2023 09:13:23 decompression of ulnar nerve at elbow completed ARELY YOUNG MD Attn: Ivette [address] [facility], [place], [address], [facility] 09/27/2023 09:25:13 Imaging Results Imaging Date Name Status LastModified by Organiz ation Details LastModified Time 03/20/2024 CT, abdomen + pelvis, w/ contrast completed [facility] [address] [place], [address], 04/03/2024 09:58:53 Procedure Notes None recorded. Medical Equipment None Reported. Allergies Allergen ID Allergen Name Allergen Category Reaction Reaction Severity Criticality Documentation Date Start Date Code Code System Note Provider Name and Address Organization Details Recorded Time 411695 morphine medicatio n decreased blood pressure severe Not available 11/23/2019 7052 RxNorm Chienyem Chapito [place], [place] [facility] 0 09:48:05 939575 lisinopri l medicatio n cough Not available Not available 11/13/2022 61464 RxNorm Starla Parham MD Attn: Rosy gonzalez,[address] [facility], [place], [address], [facility] 3 17:01:44 Medications Name Sig Start Date Stop Date Status Note LastModified by Organization Details LastModified Time atorvasta tin 40 mg tablet TAKE 1 TABLET BY MOUTH EVERY DAY 09/26 completed Not Available Not Available Not Available metformin 500 mg tablet TAKE 1 TABLET BY MOUTH TWICE A DAY LAST REFILL UNTIL APPOINTM ENT IS MADE AND KEPT active pt states GI recommen ded a discuss about this - not benefiti ng the pt (07/22/24 ) Not Available Not Available Not Available promethaz ine-DM 6.25 mg-15 mg/5 mL oral syrup TAKE 5 ML BY MOUTH EVERY 4 TO 6 HOURS NEEDED FOR COUGH active pt is not taking 07/22/24 Not Available Not Available Not Available doxycycli ne hyclate 100 mg capsule TAKE 1 CAPSULE BY MOUTH TWICE A DAY FOR 5 DAYS active pt is not taking 07/22/24 Not Available Not Available Not Available atorvasta tin 20 mg tablet Take [...] Not Available azithromy nancy 250 mg tablet active pt is not taking 07/22/24 Not Available Not Available Not Available ibuprofen [...] A DAY NEEDED FOR HEMORRHO IDS. active pt is not taking 07/22/24 Not Available Not Available Not Available ketorolac 10 mg tablet 09/26 completed Not Available Not Available Not Available famotidin e 20 mg tablet 11/13 completed Not Available Not Available Not Available amitripty line 25 mg tablet TAKE 1 TABLET BY MOUTH EVERY DAY AT NIGHT active Not Available Not Available No t [...] completed Not Available Not Available Not Available losartan 25 mg tablet Take 1 tablet every day by oral route for 30 days. 2024 active Not Available Not Available Not Avai lable gabapenti n 300 mg capsule TAKE 1 [...] WEEKLY FOR CONSTIPA TION MANAGEME NT. active pt is not taking 07/22/24 Not Available Not Available Not Available methylpre dnisolone 4 mg tablets in a dose pack FOLLOW PACKAGE DIRECTIO NS active pt is not taking 07/22/24 Not Available Not Available Not Available albuterol sulfate HFA 90 mcg/actua tion aerosol inhaler INHALE 2 PUFFS EVERY 4 HOURS BY INHALATI ON ROUTE. active pt needs a refill 07/22/24 Not Available Not Available Not Available ondansetr on 4 mg disintegr ating [...] mg-potass ium clavulana te 125 mg tablet TAKE 1 TABLET BY MOUTH EVERY 12 HOURS active pt is not taking 07/22/24 Not Available Not Available Not Available insulin lispro protamine -lispro 100 unit/mL (75-25) subcutane ous pen 09/26 completed Not Available Not Available Not Available Gas Relief Extra Strength 125 mg chewable tablet TAKE 1 TABLET BY MOUTH 4 (FOUR) TIMES A DAY NEEDED (CRAMPIN G/BLOATI NG/GAS/N AUSEA) active pt is not taking 07/22/24 Not Available Not Available Not Available butalbita l-acetami nop-caf-c od 07/22 completed Not Available Not Available Not Available cholecalc iferol (vitamin D3) 25 mcg [...] Updated DateTime 4 180.34 cm 44.2 kg/m2 430117. 78 g 98.3 [degF] 86 /min 20 /min 140 mm[Hg] 80 mm[Hg] Vielka Millard MA [facility] 4 09:10:30 Date Recorded Body height Body mass index (BMI) Body weight Oxygen saturation Oxygen saturation in Arterial blood by Pulse oximetry Heart rate Respiratory rate Body temperature Systolic blood pressure Diastolic blood pressure Provider Name and Address Organization Details Last Updated DateTime 4 180.34 cm 45.6 kg/m2 131128. 75 g 99 % 99 % 80 /min 18 /min 99 [degF] 130 mm[Hg] 80 mm[Hg] Vielka Millard MA [facility] 4 10:17:17 Date Recorded Body height Body mass index (BMI) Body weight Body temperature Heart rate Respiratory rate Oxygen saturation Oxygen saturation in Arterial blood by Pulse oximetry Systolic blood pressure Diastolic blood pressure Provider Name and Address Organization Details Last Updated DateTime 5 180.34 cm 44.9 kg/m2 832174. 14 g 98.3 [degF] 110 /min 18 /min 97 % 97 % 128 mm[Hg] 80 mm[Hg] Vielka Millard [place] - [facility] 5 11:30:30 Date Recorded Body height Body mass index (BMI) Body weight Heart rate Body temperature Respiratory rate Oxygen saturation Oxygen saturation in Arterial blood by Pulse oximetry Systolic blood pressure Diastolic blood pressure Provider Name and Address Organization Details Last Updated DateTime 5 180.34 cm 45.1 kg/m2 870705. 05 g 108 /min 99.2 [degF] 20 /min 97 % 97 % 143 mm[Hg] 91 mm[Hg] Dee Ramírez [facility] - [facility] 5 10:54:07 Date Recorded Body height Body mass index (BMI) Body weight Respiratory rate Body temperature Oxygen saturation Oxygen saturation in Arterial blood by Pulse oximetry Heart rate Systolic blood pressure Diastolic blood pressure Systolic blood pressure Diastolic blood pressure Provider Name and Address Organization Details Last Updated DateTime 5 180.34 cm 46.3 kg/m2 001570. 67 g 18 /min 97.8 [degF] 97 % 97 % 102 /min 150 mm[Hg] 104 mm[Hg] 148 mm[Hg] 102 mm[Hg] Carleen Owensaster [facility] - [facility] 5 11:58:26 Social History Question Answer Notes LastModified by Organizat ion Details LastModified Time Tobacco Smoking Status Never Smoker Misti Beckford MA [facility], [facility] 11/23/2019 09:33:19 What Is Your Level Of [...] Date Of Your Most Recent Tobacco Screening? 07/22/2024 Information not available 07/22/2024 Do You Use Protection During Sex? Always [...] What Date Was Tobacco Cessation Counseling Provided? 07/22/2024 Information not available 07/22/2024 Do You Or Have You Ever Used [...] testis Not available 2019 09:51:59 Father Malignant neoplasm of lung Not available 2019 09:52:16 Notes:07/22/24 Medical History Condition Response Coronary Artery Disease N Other N Atrial Fibrillation N High Blood Pressure Y Depression Y COPD N Blood Clots N Anxiety Disorder N Muscle, Joint, or Bone Problems N Acid Reflux (GERD) Y Cancer N Stroke N High Cholesterol N Liver Disease N Headaches N Kidney or Bladder Problems N Thyroid Problems N GI Problems Y Have you had a mammogram in the last yea r? N Skin Problems N Anemia N Heart Attack (NV) N Diabetes Y Seizures/Epilepsy N Have you had a colonoscopy in the last 1 0 years? N Asthma N Allergies N Have you had a PSA blood test in the las t year? N Hepatitis N Heart Failure N Osteoporosis N Immunizations Vaccine Type Date Status Note Provider Nam e and Address Organization Details Recorded Time COVID-19, mRNA, LNP-S, PF, 100 mcg/0.5mL dose or 50 mcg/0.25mL dose 1 completed ARELY YOUNG MD Attn: Accounting[address] [place], [address], [facility] - [facility] 03/18/2024 10:52:27 COVID-19, mRNA, LNP-S, PF, 100 mcg/0.5mL dose or 50 mcg/0.25mL dose 1 completed ARELY YOUNG MD Attn: [address] [place], [address], [facility] - [facility] 03/18/2024 10:52:27 Influenza, split virus, quadrivalent, preservative 8 completed ARELY YOUNG MD Attn: [address]ing[address] [place], [address], [facility] - [facility] 03/18/2024 10:52:27 Hep A, adult 2 completed ARELY YOUNG MD Attn: Accounting[address] [place], [address], [facility] - [facility] 03/18/2024 10:52:27 Past Encounters Encounter ID Performer Location Encounter Start Date Encounter Closed Date Diagnosis/Indication Diagnosis SNOMED-CT Code Diagnosis ICD10 Code Diagnosis Note [id number] Larissa Soliz MD [facility] [address] [address] 11/23/2019 09:25:40 11/25/2019 12:28:03 Diabetes mellitus 55820285 E11.9 Last A1C:{{less than 7.0% 7-8%* 8-9% [...] and increased activity Acute left otitis media 905684748 H66.92 acute on chronicTM bludging with middle ear fluid -augmentin rx sent Multiple skin tags 85472 7009 L91.8 multiple on neck and large pedunculat ed on right shoulder -patient to schedule with procedure clinic [id number] Aimee rodarte MD [place] [address] [address] [facility] [address] [place] [address] 11/30/2019 13:45:44 11/30/2019 19:41:28 Multiple skin tags 204350749 L91.8 Patient presents to clinic for removal [...] tag sent to lab for pathologic analysis. [id number] Larissa Soliz MD [place] [address] [address] [address] 07/26/2020 14:14:14 08/01/2020 11:55:37 Morbid obesity 458802117 E66.01 BMI: 42.6 -Discussed Mediterran reji diet and physical activity Diabetes mellitus 641414 09 E11.9 Type II, chronicLas t A1C:{{less [...] to patient Paresthesi a of lower extremity 892405840 R20.2 NO history of recent illness Most likely due to diabetes consider electrolyt e abnormalit ies -BMP and Magnesium ordered -recommned ed to take OTC magnesium Neuropathy 296384087 G62 .9 Most likely due to diabetes abnormal foot exam -gabapenti n ordered -recommend ed patient schedule with podiatry, informatio n given ot patient Chronic low back pain 27 1873164 M54.5 Chronic, NO red flag symptoms Exam remarkable for tight hips and lower paraspinal muscles -referral to physical therapy placed [id number] López sommers MD [place] [address] [address] 11/11/2020 09:41:32 11/14/2020 08:56:38 Cholelithiasis without obstruction 76464980 K80.20 Acute on chronic.-F ollow up scheduled with markie on 11/28/20-Pa in control with small amount of hydrocodon e.-Miralax for constipati on-Work up as below-Stri ct return precaution s for worsening pain or sxs of sepsis Overweight 441499357 E66 .3 Depressive disorder 3548 9007 F32.9 PHQ9=11 likely worse dt ongoing painDenies SI HIRTC following above surgical consultati on [id number] CARLYLE WEN MD [facility] [address] [address] 12/29/2020 11:31:20 12/29/2020 16:16:49 Accident while engaged in work-related activity 78453232 X58.XXXA Notes sending medical bills Injury of shoulder region 596858341 S49.91XA Poor strength, especially with external rotation. [...] pre-proced ure dose of benzo- Ortho urgently [id number] Chelsie Jenkins MD [facility] [address] [address] 03/16/2021 15:47:13 03/16/2021 20:47:20 Morbid obesity 494798113 E66.01 - encouraged drinking fewer sugary drinks and cutting down on sweets- encouraged more fruits and veggies in diet, as well as exercising for at least 30 min 3-4x/wk Diabetes mellitus 675865 09 E11.9 Last A1C:{{less than 7.0% 7-8% [...] 11 12} } {{week(s) month(s)*} } Neuropathy 946373868 G62 .9 - notes pins and needles sensation in bilateral feet- says gabapentin has been helping his diabetic neuropathy Right uppe r quadrant pain 330068738 R10.11 - pt has been having dull [...] send to GI for further work up [id number] ALLISON TAVAREZ MD [place] [address] [address] [address] 05/30/2021 15:17:10 06/02/2021 08:07:43 Acute sinusitis 59446806 J01.90 Acute, 3-4 days with fever. Likely viral in etiology and draining into lungs and esophagus leading to gastritis and bronchitis .- Discussed viral course and reassuranc e- Supportive care with tylenol/ib uprofen for fever- Nasal corticoste roid to reduce inflammati on/mucus- RTC precaution s Acute bronchitis 0102689 2 J20.9 Hx of asthma as childhood, chronic bronchitis . No smoking history. No DYLLAN on-hand.- Albuterol to help relax airways- CXR steve if non-improv ing fever, chest tightness to eval PNA- RTC precaution s Nausea and vomiting 1693 1999 R11.2 Likely gastric irritation from mucus drainage. [id number] López sommers MD [place] [address] [address] [facility] [address] [place] [address] 08/07/2021 08:29:38 08/08/2021 11:23:03 COVID-19 478098328 U07.1 Sx began 08/03, positive home COVID [...] pt to get COVID booster when possible [id number] Larissa Soliz MD [place] [address] [address] [facility] [address] [place] [address] 08/10/2021 13:31:42 08/11/2021 13:37:13 COVID-19 726302636 U07.1 F/u COVID+; symptoms began 08/03, positive [...] F/u w/ PCP in 1mo, sooner PRN. [id number] SATNAM CLARK , [place] [address] [address] [facility] [address] [place] [address] 10/27/2021 16:41:35 10/30/2021 13:54:49 Diabetes mellitus 75528830 E11.9 Last A1C:{{less than 7.0% 7-8% 8-9% [...] for high intensity dosage Hypertensive disorder 38 579601 I10 BP Goal: {{Less than 140/90* Le [...] establish baseline Obstructiv e sleep apnea syndrome 48045601 G47.33 - previously diagnosed, never received CPAP- will refer to pulm for CPAP Obesity 275915047 E66.9 - BMI >35- encouraged drinking fewer sugary drinks and cutting down on sweets- encouraged more fruits and veggies in diet, as well as exercising for at least 30 min 3-4x/wk- GI told him he would be a good candidate for bariatric surgery, will refer there Inattention 81717817 R41 .840 - concern for ADHD with inattentio n- will administer IRIS-7 and PHQ-9 at next visit to r/o IRIS and MDD before sending to psych Perforatio n of tympanic membrane 13901325 H72.02 - left ear was impacted with cerumen and irrigation was started- pt complained of pain and popping in his ear so irrigation was stopped- upon inspection , TM ruptured with only a small crescent of TM along right lower border present- will send to ENT for possible surgical repair if does not heal spontaneou sly [id number] Larissa Soliz MD [facility] [address] [address] 11/13/2022 15:46:36 11/19/2022 15:52:55 Diabetes mellitus 51415490 E11.9 Last A1C:{{less than 7.0% 7-8% 8-9% [...] } {{week(s) month(s)*} } Hypertensive disorder 38 804877 I10 BP Goal: {{Less than 140/90* Le [...] benefit in DM2- due for labs Hyperlipidemia 50081038 E78.5 - needs refills Morbid obesity 354428187 E66.01 - encouraged drinking fewer sugary drinks and cutting down on sweets- encouraged more fruits and veggies in diet, as well as exercising for at least 30 min 3-4x/wk Depressive disorder 3548 9007 F32.A - PHQ9 = 11- denies HI/SI- pt declines wanting to start antidepres shivani or therapy, prefers watchful waiting [id number] Larissa Soliz MD [place] [address] [address] [address] 12/06/2022 10:14:20 12/10/2022 14:09:24 Nausea 797841914 R11.0 - pt with chronic nausea without [...] relief Tenosynovi tis of left radial styloid 3883148464 6713551 M65.4 - pt with left Dequervain 's tenosynovi tis, currently wearing wrist brace- encouraged to continue using brace and schedule NSAID use for 7d- will consider injection if pain persists after 3-4 weeks of conservati ve therapy Morbid obesity 284136612 E66.01 - did not discuss in detail at this visit [id number] MD Shyam BUNCH 14 IM [address] [facility] [place] [address] 09/27/2023 08:54:48 10/08/2023 12:43:10 Morbid obesity 250941677 E66.01 Healthy lifestyle encouraged including regular exercise of at least 150min per week, diet rich in plant based foods and low in added sugars, processed carbohydra sarath, and high salt foods. Pain of ear 381705099 H9 2.09 Likely eustachian tube dysfunctio n [...] desired. Gastroesop hageal reflux disease without esophagitis 535095094 K21.9 Has been following with Dr. Matt for intermitte nt abdominal pain. Was being evaluated for IBS vs biliary dyskinesia . Had ordered HIDA scan but was unable to schedule at [place] . Will order at [facility]. Had known esophagiti s on EGD and is taking amitripyli ne and omeprazole . Type 2 reji betes mellitus 15644552 E11.9 Diagnosed in 2019. Initially was on insulin then changed diet and is now only on metformin 1000 mg BID. Labs done on 09/16 with normal CMP and normal creatinine . Essential hypertension 25407429 I10 BP elevated at 140/80. Will increase amlodipine to 10 mg. Will take BP 1-2 times weekly and keep log. Follow up in 1 month. Lateral ep icondylitis of right humerus 7701136593 08678 M77.11 Was given steroid injection 08/2023 by plastics. Following with occupation al therapy. Pain in the right elbow likely lateral epicondyli tis. Given up to date handout on helpful hints and education. [id number] MD Shyam BUNCH 14 IM [address] [facility] [place] [address] 03/18/2024 10:04:46 03/27/2024 11:36:21 Mild intermittent asthma 172352073 J45.20 Needs refill for albuterol. No wheezing noted on exam today. Upper resp iratory infection 33381761 J06.9 5 day hx of cough, congestion , diarrhea likely viralWill give zofran for nausea and benzonatat e for cough.Tyle nol and ibuprofen for chest wall pain.Flu/C OVID negativeWo rk note given.Will call for fever, worsening symptoms, uncontroll ed vomiting, or if symptoms persist past this week. [id number] MD Shyam Chacon 14 IM 4 [facility] Dr Arenas [address] [place] [id number] 1 04/08/2024 11:17:24 04/10/2024 15:35:12 Morbid obesity [id number] E66.01 Healthy lifestyle encouraged including regular exercise of at least 150min per week, diet rich in plant based foods and low in added sugars, processed carbohydra sarath, and high salt foods. Encouraged protein intake mostly with chicken and white fish and limited red meat. Community acquired pneumonia [id number] J18.9 Given tachycardi a, worsening SOB and productive cough, will treat with 5 days of doxycyclin e for CAPReturn and ED precaution s discussedI nstructed to continue using incentive spirometry as much as possible Mild inter mittent asthma [id number] J45.20 Hx of asthmaNeed s refill on albuterol inhalerIns tructed to use inhaler every 4 hours for the next 2-3 days and as neededCan back off when SOB improvesRe turn and ED precaution s discussed Meralgia p aresthetica of left leg [id number] G57.12 physical exam suggestive of meralgia parestheti ca likely from being in a hospital bed for long period of timeDiscus sed conservati ve management including wearing lose fitting clothesMig ht benefit from OMT, will schedule in OMT clinic [id number] MD Shyam Tamez 14 IM 4 [facility] Dr Arenas [address] [place] [id number] 1 04/15/2024 10:38:23 04/23/2024 10:57:48 Community acquired pneumonia [id number] J18.9 Given tachycardi a, worsening SOB and productive cough, treated with 5 days of doxycyclin e for CAP at last visitInstr ucted to continue using incentive spirometry as much as possibleFe cheyanneng a little betterCont inue to monitor improvemen tFollow up in 1 month Mild inter mittent asthma [id number] J45.20 Hx of asthmaprn albuterol inhalerCon tinue ICSReturn and ED precaution s discussed Meralgia p aresthetica of left leg [id number] 20305 G57.12 physical exam suggestive of meralgia parestheti ca likely from being in a hospital bed for long period of timeDiscus sed conservati ve management including wearing lose fitting clothesPer formed OMT todayGiven home exercises and anticipato ry guidance 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 Was previously seen in [place] by PCP and GI. 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 Left ear painHas congenital deformity to right [...] daily. DEVI GOLD MD Attn: Accounting,[address], [place], [address], [facility] - [facility] 10/07/2023 09:48:54 03/18/2024 text/html Oscar [...] medication. DEVI GOLD MD Attn: Accounting,[address], [place], [address], [facility] - [facility] 03/26/2024 22:11:39 04/08/2024 text/html 38 yo M presents to clinic after cholecystectomy 3 weeks ago at [facility] complicated by infection and pneumonia. He was [...] Saturday. Katie Bal MD Attn: Accounting,[address], [place], [address], [facility] - [facility] 04/10/2024 12:28:51 04/15/2024 text/html 38 yo M presents to clinic for follow up and OMT Had cholecystectomy 1 month ago at [facility] complicated by infection and pneumonia. He was [...] surgery for follow up tomorrow. Merlene carbajal, [facility] - [facility] 04/21/2024 13:47:13
--- OUTSIDE RECORDS SUMMARY | 2024-07-31 07:34 | XMS_ITS | Clinical Summary ---
Author Organization [facility] Address [address] [place] [phone] Phone Care Team Providers Care Numerical Control Lathe Operator Name Role Phone Provider, None Primary [...] on file Legal Sex Male 11:59 AM NURSING TECHNICIAN Gender Identity Not on file Sexual Orientation Not on file Last Filed Vital Signs Vital Sign Reading Time Taken Comments Blood Pressure 130/82 05/06/2023 12:20 PM NURSING TECHNICIAN Pulse 103 05/06/2023 12:20 PM NURSING TECHNICIAN Temperature 36.5 C (97.7 F) 05/06/2023 12:20 PM NURSING TECHNICIAN Respiratory Rate 20 05/06/2023 12:20 PM NURSING TECHNICIAN Oxygen Saturation 98% 05/06/2023 12:20 PM NURSING TECHNICIAN Inhaled Oxygen Concentration - - Weight 138.3 kg (305 lb) 05/06/2023 12:20 PM NURSING TECHNICIAN Height 180.3 cm (5' 11 ) 05/06/2023 12:20 PM NURSING TECHNICIAN Body Mass Index 42.54 05/06/2023 12:20 PM NURSING TECHNICIAN Plan of Treatment Health Maintenance Due [...] patient's age to complete this topic [place] [address] [place] [address] MEDICAID [place] Care Teams Numerical Control Lathe Operator Relationship Specialty Start Date End Date Provider, None [place] PCP - General 05/06/23
[2024-07-31 08:35] VITALS: BP 135/87; PULSE 109; RESP 17; O2SAT 99
[2024-07-31 10:00] VITALS: BP 118/74; PULSE 95; RESP 16; TEMP 36.6; O2SAT 99
== END 2024-07-31 12:10 ==
PROVIDERS: Emergency Medicine; Emergency Provider Emergency Medicine
DX: R41.82 Altered mental status, unspecified (principal); I10 Essential (primary) hypertension; E11.9 Type 2 diabetes mellitus without complications; J45.909 Unspecified asthma, uncomplicated; K51.90 Ulcerative colitis, unspecified, without complications; K21.9 Gastro-esophageal reflux disease without esophagitis; F32.A Depression, unspecified; F41.9 Anxiety disorder, unspecified; Z86.0100 Personal history of colon polyps, unspecified; Z87.440 Personal history of urinary (tract) infections; Z87.442 Personal history of urinary calculi; Z87.01 Personal history of pneumonia (recurrent); Z87.891 Personal history of nicotine dependence; Z90.49 Acquired absence of other specified parts of digestive tract; Z79.84 Long term (current) use of oral hypoglycemic drugs; Z79.899 Other long term (current) drug therapy
CPT/HCPCS: 36415; 70450; 80053; 81003; 85025; 85610; 85730; 93005; 99284